=== PATIENT | male | born 1945 | race Caucasian/White ===

== ENCOUNTER 2016-03-01 12:27 | Emergency (ER) | payer MEDICARE, BC, OTHER ==
[~2016-03-01 12:27] MED LIST: /BACIOPOI TOP; /CIPR75TA; /DIVA50TA PO; /LINE60TA; /MUPI30CR EXT; ALBU2EL PO; AMLO10TA; ASCO10003 PO; ASCORBIC ACID 500 MG/ML TOP; ASPI1TAB PO; ASPI81TA3 PO; ASPI81TA83; AVEL1TAB PO; BISO10TA42 PO; BISO10TA6 PO; CARV3.12 PO; CENTTAB PO; COLC1TAB13 PO; DEPA1TAB3 PO; DEPA250C; DEPA500T2 PO; DESO0.254 TOP; DIGO25TA PO; DOXY100T; DOXY10CA PO; EUCECRE3 TOP; EUCELOT2 TOP; FERR325T; FISH1000; FLUOCINONIDE TOP; FOLI1TAB; GLUC1000; GLUC15002 PO; GLUC1CAP9 PO; HEPARIN; INSUDET SC; JANU100T PO; KEFL500C7 PO; KERALYT TOP; LEVE1INJ5 SC; LEVEINJ SC; LEVO125T3 PO; LEVO175T2 PO; LIDO5OI TOP; LIPI10TA; LISINOPRIL/HCTZ PO; LOPE2CA PO; LOPE2TAB3 PO; MAALSUS8 PO; MAGN64TASA PO; MAGNESIUM 64 MG PO; MAGNESIUM OXIDE PO; METO100T3 PO; METO50TA4 PO; MULTIVIT; MULTIVITAMIN; MULTTAB50 PO; MUPI2OI TOP; NEXI20CA PO; NICO21DI4; NORMAL SALINE; OMEP40CA2 PO; OXYCODONE; PERC5TAB8; PRAD150C PO; PRED10TA PO; PREDPOW10 PO; PRIL40CA PO; PROA1AER INH; RIFA300C3; SANTYL; SPIR25TA2 PO; SYNT150T PO; TORS100T12 PO; TORS20TA2 PO; TYLE325T5 PO; VALA1TAB PO; VANCOMYCIN; VIBR100C; VITA10006 PO; VITA200016 PO; VITA500T; VITA500T PO; VITAD1000T OR; VITAMIN D; VITMTA PO; WELC625T PO; ZANTTAB PO; ZINC220T2; ZYLO300T4 PO; [UNRECOGNIZED DRUG - CODE] PO; [UNRECOGNIZED DRUG - CODE] PO; [UNRECOGNIZED DRUG - CODE] PO; [UNRECOGNIZED DRUG - CODE] TOP; [UNRECOGNIZED DRUG - OTHER]; [UNRECOGNIZED DRUG - OTHER] PO; [UNRECOGNIZED DRUG - OTHER] TOP
--- NOTE | 2016-03-01 13:20 | REP ---
CT HEAD WITHOUT CONTRAST: HISTORY: Trauma. COMPARISON: 07/11/2013. Areas of decreased attenuation are present in the periventricular white matter. This represents small vessel ischemic disease. There is no intraparenchymal hemorrhage, mass or midline shift. The ventricular system and cortical sulci as well as subarachnoid space in the posterior fossa are dilated consistent with moderate volume loss. There is no extracerebral collection. There is no fracture. The visualized sinuses are clear. IMPRESSION: 1. Small vessel ischemic disease. 2. Moderate volume loss. Signed by Brayden Anderson MD 03/01/2016 01:37 P
--- NOTE | 2016-03-01 13:24 | REP ---
LUMBOSACRAL SPINE: Five views lumbosacral spine performed. There appears to be partial lumbarization of S1. There is no compression fracture or malalignment. There is mild diffuse spurring. There is mild disc space narrowing at L3-4. There is moderate disc space narrowing with subchondral sclerosis and vacuum at L5-S1. There is diffuse sclerosis at the posterior facet joints. The posterior elements are intact with slight curvature toward the left. IMPRESSION: Diffuse degenerative changes. No fracture or dislocation. Signed by Jason Andino MD 03/01/2016 03:22 P
--- NOTE | 2016-03-01 13:52 | EDDOCDS ---
Nurse's Notes [facility] Name: Leland Bassett Age: 70 yrs Sex: Male : 1945 Arrival Date: 03/01/2016 Time: 12:27 Bed I9 Private MD: Destin Tohmas G; Donegan, Caitlin Diagnosis: Unspecified injury of head;Low back pain Presentation: 03/01 12:33 Presenting complaint: EMS states: Slipped and fell in the shower, injured lower back. rs3 bruises in lower back. denies syncope/dizziness. not sure of loss of consciousness. denies head injury. on blood thinner. Adult Sepsis Screening: The patient does not have new or worsening altered mentation. Patient's respiratory rate is less than 22. Systolic blood pressure is greater than 100. Patient has a qSOFA score of 0- Negative Sepsis Screen. Suicide/Homicide risk assessment- the patient denies having any suicidal and/or homicidal ideations and does not present with any other emotional, behavioral or mental health complaints. 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 Transition of care: patient was not received from another setting of care. 12:33 Acuity: MAYTE Level 3 rs3 12:33 Method Of Arrival: Ambulance rs3 Triage Assessment: 12:59 General: Appears in no apparent distress. Pain: Location: lumbar area. Musculoskeletal: rs3 Reports Pain is 7 out of 10 on a pain scale. Historical: - Allergies: atorvastatin (Upset stomach); QUINOLONES (Upset stomach); valsartan (Upset stomach); - Home Meds: 1. mag64 twice a day 2. WelChol 625 mg oral tab once daily 3. Pradaxa 150 mg oral cap 2 times per day 4. ProAir HFA 90 mcg/actuation inhalation HFAA every 4 hours 5. bisoprolol fumarate 10 mg oral tab 1 tab once daily 6. divalproex 500 mg oral Tb24 1 tab once daily 7. divalproex 500 mg oral TbEC 2 tabs nightly 8. omeprazole 40 mg Oral cpDR 1 cap once daily 9. gabapentin 100 mg Oral tab three times a day 10. ascorbic acid 1,000 mg oral tab daily 11. aspirin 81 mg Oral TbEC 1 tab once daily 12. levothyroxine 175 mcg Oral tab 1 tab once daily 13. Glucosamine oral twice a day 14. levemir sliding scale : hold for under 150 -- use 80 Units above 150 15. allopurinol 300 mg Oral tab 1 tab once daily 16. colchicine 0.6 mg Oral tab 17. desoximetasone 0.25 % Topical oint prn 18. torsemide 100 mg oral tab 2 tabs once daily 19. Januvia 100 mg oral tab 1 tab once daily 20. Vitamin D Oral 2000 unit daily 21. spironolactone 25 mg Oral tab 1 tab once daily - PMHx: Diabetes - NIDDM: controlled; Heart Attack; Gout; Seizures; - PSHx: Cholecystectomy; Orchiectomy- Right; Knee surgery- Left; - Social history: Smoking status: Patient states former smoker of tobacco. No barriers to communication noted, The patient speaks fluent Yoruba. - Family history: Not pertinent. - : The pt / caregiver states he / she is on anticoagulants: Pradaxa (Dabigatran) Home medication list is obtained from pill bottles. - Exposure Risk Screening:: None identified. Screenin:05 Screening information is obtained from the patient. Fall risk: At risk due to age, rs3 prior history of falls. Assistance ADL's: requires no assistance with activities of daily living. Abuse/DV Screen: The patient / caregiver reports he/she is: not in a situation that causes fear, pain or injury. Nutritional screening: No deficits noted. Advance Directives: Currently, there is a health care proxy, amber duong (daughter). home support is adequate. Assessment: 13:10 General: Appears in no apparent distress, Behavior is appropriate for age, cooperative. rs3 Pain: Location: lumbar area. Cardiovascular: Capillary refill < 3 seconds Clubbing of nail beds is absent. Respiratory: Airway is patent Breath sounds are clear bilaterally. Derm: Bruising that is on lumbar area and right low back. Musculoskeletal: Circulation, motion, and sensation intact Capillary refill < 3 seconds Range of motion intact in all extremities. 13:46 Reassessment: Patient appears in no apparent distress at this time. Patient states rs3 feeling better. Patient states symptoms have improved. Vital Signs: 12:58 BP 125 / 65; Pulse 61; Resp 18; Temp 96.1(T); Pulse Ox 96% on R/A; Weight 123.38 kg; rs3 Height 6 ft. 2 in. (187.96 cm); 12:58 Body Mass Index 34.92 (123.38 kg, 187.96 cm) rs3 Vitals: 12:58 Log In Time N/A - ambulance arrival. rs3 ED Course: 12:28 Patient visited by Delfino Velásquez PCA. jrd 12:28 Patient moved to Waiting jrd 12:29 Tiny Gillespie is Private Physician. jrd 12:30 Destin Thomas is Private Physician. jrd 12:30 Patient moved to I jrd 12:33 Felician[facility] Saunders [facility] ke 12:33 Patient visited by Feliciano Saunders FNP. ke 12:34 Patient visited by Feliciano Saunders FNP. ke 12:35 Triage Initiated rs3 12:54 Patient visited by Feliciano Saunders FNP. ke 13:29 Patient visited by Feliciano Saunders FNP. ke 13:33 Tiny Gillespie is Referral Physician. ke 13:51 No IV's were initiated during this patient's visit. No procedures done that require rs3 assistance. 13:52 The patient / caregiver is instructed regarding the plan of care and ED course. rs3 Order Results: There are currently no results for this order. Outcome: 13:33 Discharge ordered by Provider. ke 13:50 Discharge Assessment: patient administered narcotics - no. The following High Risk rs3 Discharge criteria are identified: None. Discharged to home with family. Condition: stable. Discharge instructions given to family, Instructed on discharge instructions, follow up and referral plans. medication usage, Demonstrated understanding of instructions, medications, Pt was receptive of discharge instructions/ teaching. CT Study completed. Property :Personal belongings accompany Pt. 13:52 Patient left the ED. rs3 Signatures: Feliciano Saunders FNP FNP ke Soosairaj, RosemaryRN RN rs3 Delfino Velásquez PCA PCA jrd MTDD
--- NOTE | 2016-03-01 13:52 | EDDOCDS ---
Physician Documentation [facility] Name: Leland Bassett Age: 70 yrs Sex: Male : 1945 Arrival Date: 03/01/2016 Time: 12:27 Bed I9 Private MD: Destin Thomas G; Donegan, Caitlin Disposition: 03/01/16 13:33 Discharged to Home/Self Care. Impression: Unspecified injury of head, Low back pain. - Condition is Stable. - Discharge Instructions: Abrasion, Contusion, Musculoskeletal Pain. - Medication Reconciliation, Local Pharmacy Hours form. - Follow up: Tiny Gillespie; When: As needed; Reason: Continuance of care. - Problem is new. - Symptoms are unchanged. Historical: - Allergies: atorvastatin (Upset stomach); QUINOLONES (Upset stomach); valsartan (Upset stomach); - Home Meds: 1. mag64 twice a day 2. WelChol 625 mg oral tab once daily 3. Pradaxa 150 mg oral cap 2 times per day 4. ProAir HFA 90 mcg/actuation inhalation HFAA every 4 hours 5. bisoprolol fumarate 10 mg oral tab 1 tab once daily 6. divalproex 500 mg oral Tb24 1 tab once daily 7. divalproex 500 mg oral TbEC 2 tabs nightly 8. omeprazole 40 mg Oral cpDR 1 cap once daily 9. gabapentin 100 mg Oral tab three times a day 10. ascorbic acid 1,000 mg oral tab daily 11. aspirin 81 mg Oral TbEC 1 tab once daily 12. levothyroxine 175 mcg Oral tab 1 tab once daily 13. Glucosamine oral twice a day 14. levemir sliding scale : hold for under 150 -- use 80 Units above 150 15. allopurinol 300 mg Oral tab 1 tab once daily 16. colchicine 0.6 mg Oral tab 17. desoximetasone 0.25 % Topical oint prn 18. torsemide 100 mg oral tab 2 tabs once daily 19. Januvia 100 mg oral tab 1 tab once daily 20. Vitamin D Oral 2000 unit daily 21. spironolactone 25 mg Oral tab 1 tab once daily - PMHx: Diabetes - NIDDM: controlled; Heart Attack; Gout; Seizures; - PSHx: Cholecystectomy; Orchiectomy- Right; Knee surgery- Left; - Social history: Smoking status: Patient states former smoker of tobacco. No barriers to communication noted, The patient speaks fluent Panamanian. - Family history: Not pertinent. - : The pt / caregiver states he / she is on anticoagulants: Pradaxa (Dabigatran) Home medication list is obtained from pill bottles. - Exposure Risk Screening:: None identified. Vital Signs: 03/01 12:58 BP 125 / 65; Pulse 61; Resp 18; Temp 96.1(T); Pulse Ox 96% on R/A; Weight 123.38 kg / rs3 272.01 lbs; Height 6 ft. 2 in. (187.96 cm); 12:58 Body Mass Index 34.92 (123.38 kg, 187.96 cm) rs3 MDM: 12:40 CT Head Without Contrast Ordered. EDMS 12:41 Spine. Lumbosacral, Complete Ordered. EDMS Signatures: Dispatcher [employer] EDMS Feliciano Saunders, Mamta CrespoRN RN rs3 MTDD
--- NOTE | 2016-03-03 14:53 | EDDOCDS ---
Nurse's Notes [facility] Name: Leland Bassett Age: 70 yrs Sex: Male : 1945 Arrival Date: 03/01/2016 Time: 12:27 Bed I9 Private MD: Destin Thomas G; Donegan, Caitlin Diagnosis: Unspecified injury of head;Low back pain Presentation: 03/01 12:33 Presenting complaint: EMS states: Slipped and fell in the shower, injured lower back. rs3 bruises in lower back. denies syncope/dizziness. not sure of loss of consciousness. denies head injury. on blood thinner. Adult Sepsis Screening: The patient does not have new or worsening altered mentation. Patient's respiratory rate is less than 22. Systolic blood pressure is greater than 100. Patient has a qSOFA score of 0- Negative Sepsis Screen. Suicide/Homicide risk assessment- the patient denies having any suicidal and/or homicidal ideations and does not present with any other emotional, behavioral or mental health complaints. Status: Patient is not a immigration services officer or dependent. Transition of care: patient was not received from another setting of care. 12:33 Acuity: MAYTE Level 3 rs3 12:33 Method Of Arrival: Ambulance rs3 Triage Assessment: 12:59 General: Appears in no apparent distress. Pain: Location: lumbar area. Musculoskeletal: rs3 Reports Pain is 7 out of 10 on a pain scale. Historical: - Allergies: atorvastatin (Upset stomach); QUINOLONES (Upset stomach); valsartan (Upset stomach); - Home Meds: 1. mag64 twice a day 2. WelChol 625 mg oral tab once daily 3. Pradaxa 150 mg oral cap 2 times per day 4. ProAir HFA 90 mcg/actuation inhalation HFAA every 4 hours 5. bisoprolol fumarate 10 mg oral tab 1 tab once daily 6. divalproex 500 mg oral Tb24 1 tab once daily 7. divalproex 500 mg oral TbEC 2 tabs nightly 8. omeprazole 40 mg Oral cpDR 1 cap once daily 9. gabapentin 100 mg Oral tab three times a day 10. ascorbic acid 1,000 mg oral tab daily 11. aspirin 81 mg Oral TbEC 1 tab once daily 12. levothyroxine 175 mcg Oral tab 1 tab once daily 13. Glucosamine oral twice a day 14. levemir sliding scale : hold for under 150 -- use 80 Units above 150 15. allopurinol 300 mg Oral tab 1 tab once daily 16. colchicine 0.6 mg Oral tab 17. desoximetasone 0.25 % Topical oint prn 18. torsemide 100 mg oral tab 2 tabs once daily 19. Januvia 100 mg oral tab 1 tab once daily 20. Vitamin D Oral 2000 unit daily 21. spironolactone 25 mg Oral tab 1 tab once daily - PMHx: Diabetes - NIDDM: controlled; Heart Attack; Gout; Seizures; - PSHx: Cholecystectomy; Orchiectomy- Right; Knee surgery- Left; - Social history: Smoking status: Patient states former smoker of tobacco. No barriers to communication noted, The patient speaks fluent Persian. - Family history: Not pertinent. - : The pt / caregiver states he / she is on anticoagulants: Pradaxa (Dabigatran) Home medication list is obtained from pill bottles. - Exposure Risk Screening:: None identified. Screenin:05 Screening information is obtained from the patient. Fall risk: At risk due to age, rs3 prior history of falls. Assistance ADL's: requires no assistance with activities of daily living. Abuse/DV Screen: The patient / caregiver reports he/she is: not in a situation that causes fear, pain or injury. Nutritional screening: No deficits noted. Advance Directives: Currently, there is a health care proxy, amber duong (daughter). home support is adequate. Assessment: 13:10 General: Appears in no apparent distress, Behavior is appropriate for age, cooperative. rs3 Pain: Location: lumbar area. Cardiovascular: Capillary refill < 3 seconds Clubbing of nail beds is absent. Respiratory: Airway is patent Breath sounds are clear bilaterally. Derm: Bruising that is on lumbar area and right low back. Musculoskeletal: Circulation, motion, and sensation intact Capillary refill < 3 seconds Range of motion intact in all extremities. 13:46 Reassessment: Patient appears in no apparent distress at this time. Patient states rs3 feeling better. Patient states symptoms have improved. Vital Signs: 12:58 BP 125 / 65; Pulse 61; Resp 18; Temp 96.1(T); Pulse Ox 96% on R/A; Weight 123.38 kg; rs3 Height 6 ft. 2 in. (187.96 cm); 12:58 Body Mass Index 34.92 (123.38 kg, 187.96 cm) rs3 Vitals: 12:58 Log In Time N/A - ambulance arrival. rs3 ED Course: 12:28 Patient visited by Delfino Velásquez PCA. jrd 12:28 Patient moved to Waiting jrd 12:29 Tiny Gillespie is Private Physician. jrd 12:30 Destin Thomas is Private Physician. jrd 12:30 Patient moved to I jrd 12:33 [facility]unders F[facility] ke 12:33 Patient visited by Feliciano Saudners FNP. ke 12:34 Patient visited by Feliciano Saunders FNP. ke 12:35 Triage Initiated rs3 12:54 Patient visited by Feliciano Saunders FNP. ke 13:29 Patient visited by Feliciano Saunders FNP. ke 13:33 Tiny Gillespie is Referral Physician. ke 13:51 No IV's were initiated during this patient's visit. No procedures done that require rs3 assistance. 13:52 The patient / caregiver is instructed regarding the plan of care and ED course. rs3 13:58 [place] [place] Agreement was scanned into [employer] and attached to record. jp5 14:03 CT Head Without Contrast Returned. EDMS 14:03 Spine. Lumbosacral, Complete Returned. EDMS 18:59 PCR was scanned into [employer] and attached to record. jrd 03/02 07:18 T-Sheet-- Draft Copy was scanned into [employer] and attached to record. gb Order Results: Radiology Order: CT Head Without Contrast Test: CT Head Without Contrast REASON FOR EXAMINATION: Trauma; CT HEAD WITHOUT CONTRAST:; ; HISTORY: Trauma.; ; COMPARISON: 07/11/2013.; ; Areas of decreased attenuation are present in the periventricular white matter.; This represents small vessel ischemic disease. There is no intraparenchymal; hemorrhage, mass or midline shift. The ventricular system and cortical sulci as; well as subarachnoid space in the posterior fossa are dilated consistent with; moderate volume loss. There is no extracerebral collection. There is no; fracture. The visualized sinuses are clear.; ; IMPRESSION:; ; 1. Small vessel ischemic disease.; ; 2. Moderate volume loss.; ; ; Signed by; Brayden Anderson MD 03/01/2016 01:37 P; Radiology Order: Spine. Lumbosacral, Complete Test: Spine. Lumbosacral, Complete REASON FOR EXAMINATION: Trauma; LUMBOSACRAL SPINE:; ; Five views lumbosacral spine performed. There appears to be partial; lumbarization of S1. There is no compression fracture or malalignment. There is; mild diffuse spurring. There is mild disc space narrowing at L3-4. There is; moderate disc space narrowing with subchondral sclerosis and vacuum at L5-S1.; There is diffuse sclerosis at the posterior facet joints. The posterior elements; are intact with slight curvature toward the left.; ; IMPRESSION:; ; Diffuse degenerative changes. No fracture or dislocation.; ; ; Signed by; Jason Andino MD 03/01/2016 03:22 P; Outcome: 03/01 13:33 Discharge ordered by Provider. armin 13:50 Discharge Assessment: patient administered narcotics - no. The following High Risk rs3 Discharge criteria are identified: None. Discharged to home with family. Condition: stable. Discharge instructions given to family, Instructed on discharge instructions, follow up and referral plans. medication usage, Demonstrated understanding of instructions, medications, Pt was receptive of discharge instructions/ teaching. CT Study completed. Property :Personal belongings accompany Pt. 13:52 Patient left the ED. rs3 Signatures: Dispatcher [employer] EDMS Tara Ibarra, Feliciano Thompson, CASINO GAMING WORKER CASINO GAMING WORKERMamta Triana RN RN rs3 Delfino Velásquez PCA SOUND TESTER Edgard Gtz jp5 Chart Complete MTDD
--- NOTE | 2016-03-03 14:53 | EDDOCDS ---
Physician Documentation [facility] Name: Leland Bassett Age: 70 yrs Sex: Male : 1945 Arrival Date: 03/01/2016 Time: 12:27 Bed I9 Private MD: Destin Thomas G; Donegan, Caitlin Disposition: 03/01/16 13:33 Discharged to Home/Self Care. Impression: Unspecified injury of head, Low back pain. - Condition is Stable. - Discharge Instructions: Abrasion, Contusion, Musculoskeletal Pain. - Medication Reconciliation, Local Pharmacy Hours form. - Follow up: Tiny Gillespie; When: As needed; Reason: Continuance of care. - Problem is new. - Symptoms are unchanged. Historical: - Allergies: atorvastatin (Upset stomach); QUINOLONES (Upset stomach); valsartan (Upset stomach); - Home Meds: 1. mag64 twice a day 2. WelChol 625 mg oral tab once daily 3. Pradaxa 150 mg oral cap 2 times per day 4. ProAir HFA 90 mcg/actuation inhalation HFAA every 4 hours 5. bisoprolol fumarate 10 mg oral tab 1 tab once daily 6. divalproex 500 mg oral Tb24 1 tab once daily 7. divalproex 500 mg oral TbEC 2 tabs nightly 8. omeprazole 40 mg Oral cpDR 1 cap once daily 9. gabapentin 100 mg Oral tab three times a day 10. ascorbic acid 1,000 mg oral tab daily 11. aspirin 81 mg Oral TbEC 1 tab once daily 12. levothyroxine 175 mcg Oral tab 1 tab once daily 13. Glucosamine oral twice a day 14. levemir sliding scale : hold for under 150 -- use 80 Units above 150 15. allopurinol 300 mg Oral tab 1 tab once daily 16. colchicine 0.6 mg Oral tab 17. desoximetasone 0.25 % Topical oint prn 18. torsemide 100 mg oral tab 2 tabs once daily 19. Januvia 100 mg oral tab 1 tab once daily 20. Vitamin D Oral 2000 unit daily 21. spironolactone 25 mg Oral tab 1 tab once daily - PMHx: Diabetes - NIDDM: controlled; Heart Attack; Gout; Seizures; - PSHx: Cholecystectomy; Orchiectomy- Right; Knee surgery- Left; - Social history: Smoking status: Patient states former smoker of tobacco. No barriers to communication noted, The patient speaks fluent Namibian. - Family history: Not pertinent. - : The pt / caregiver states he / she is on anticoagulants: Pradaxa (Dabigatran) Home medication list is obtained from pill bottles. - Exposure Risk Screening:: None identified. Vital Signs: 03/01 12:58 BP 125 / 65; Pulse 61; Resp 18; Temp 96.1(T); Pulse Ox 96% on R/A; Weight 123.38 kg / rs3 272.01 lbs; Height 6 ft. 2 in. (187.96 cm); 12:58 Body Mass Index 34.92 (123.38 kg, 187.96 cm) rs3 MDM: 12:40 CT Head Without Contrast Ordered. EDMS 12:41 Spine. Lumbosacral, Complete Ordered. EDMS 13:58 [facility] Payment Agreement was scanned into [employer] and attached to record. jp5 13:58 Financial registration complete. jp5 18:59 PCR was scanned into [employer] and attached to record. jrmaria 03/02 07:18 T-Sheet-- Draft Copy was scanned into [employer] and attached to record. gb Signatures: Dispatcher [employer] EDMS Tara Ibarra, Reg Reg gb Feliciano Saunders, BALANCE WHEEL SCREW HOLE TAPPER BALANCE WHEEL SCREW HOLE TAPPER Mamta Johnston,RN RN rs3 Delfino Velásquez, BAY STOCKER BAY STOCKER jrEdgard Marie jp5 The chart was reviewed and I authenticate all verbal orders and agree with the evaluation and treatment provided.Attachments: 03/01 13:58 [facility] Payment Agreement jp5 03/02 07:18 T-Sheet-- Draft Copy gb Chart Complete MTDD
--- NOTE | 2016-03-03 14:53 | EDDOCDS ---
Physician Documentation [facility] Name: Leland Bassett Age: 70 yrs Sex: Male : 1945 Arrival Date: 03/01/2016 Time: 12:27 Bed I9 Private MD: Destin Thomas G; Donegan, Caitlin Disposition: 03/01/16 13:33 Discharged to Home/Self Care. Impression: Unspecified injury of head, Low back pain. - Condition is Stable. - Discharge Instructions: Abrasion, Contusion, Musculoskeletal Pain. - Medication Reconciliation, Local Pharmacy Hours form. - Follow up: Tiny Gillespie; When: As needed; Reason: Continuance of care. - Problem is new. - Symptoms are unchanged. Historical: - Allergies: atorvastatin (Upset stomach); QUINOLONES (Upset stomach); valsartan (Upset stomach); - Home Meds: 1. mag64 twice a day 2. WelChol 625 mg oral tab once daily 3. Pradaxa 150 mg oral cap 2 times per day 4. ProAir HFA 90 mcg/actuation inhalation HFAA every 4 hours 5. bisoprolol fumarate 10 mg oral tab 1 tab once daily 6. divalproex 500 mg oral Tb24 1 tab once daily 7. divalproex 500 mg oral TbEC 2 tabs nightly 8. omeprazole 40 mg Oral cpDR 1 cap once daily 9. gabapentin 100 mg Oral tab three times a day 10. ascorbic acid 1,000 mg oral tab daily 11. aspirin 81 mg Oral TbEC 1 tab once daily 12. levothyroxine 175 mcg Oral tab 1 tab once daily 13. Glucosamine oral twice a day 14. levemir sliding scale : hold for under 150 -- use 80 Units above 150 15. allopurinol 300 mg Oral tab 1 tab once daily 16. colchicine 0.6 mg Oral tab 17. desoximetasone 0.25 % Topical oint prn 18. torsemide 100 mg oral tab 2 tabs once daily 19. Januvia 100 mg oral tab 1 tab once daily 20. Vitamin D Oral 2000 unit daily 21. spironolactone 25 mg Oral tab 1 tab once daily - PMHx: Diabetes - NIDDM: controlled; Heart Attack; Gout; Seizures; - PSHx: Cholecystectomy; Orchiectomy- Right; Knee surgery- Left; - Social history: Smoking status: Patient states former smoker of tobacco. No barriers to communication noted, The patient speaks fluent [place]ine[place]. - Family history: Not pertinent. - : The pt / caregiver states he / she is on anticoagulants: Pradaxa (Dabigatran) Home medication list is obtained from pill bottles. - Exposure Risk Screening:: None identified. Vital Signs: 03/01 12:58 BP 125 / 65; Pulse 61; Resp 18; Temp 96.1(T); Pulse Ox 96% on R/A; Weight 123.38 kg / rs3 272.01 lbs; Height 6 ft. 2 in. (187.96 cm); 12:58 Body Mass Index 34.92 (123.38 kg, 187.96 cm) rs3 MDM: 12:40 CT Head Without Contrast Ordered. EDMS 12:41 Spine. Lumbosacral, Complete Ordered. EDMS 13:58 [facility] Payment Agreement was scanned into [employer] and attached to record. jp5 13:58 Financial registration complete. jp5 18:59 PCR was scanned into [employer] and attached to record. jrmaria 03/02 07:18 T-Sheet-- Draft Copy was scanned into [employer] and attached to record. gb Signatures: Dispatcher [employer] EDMS Tara Ibarra, Reg Reg gb Feliciano Saunders, TUNE UP MECHANIC TUNE UP MECHANIC Mamta Johnston,RN RN rs3 Delfino Velásquez, MANAGER RENEWABLE ENERGY MANAGER RENEWABLE ENERGY jrEdgard Marie jp5 The chart was reviewed and I authenticate all verbal orders and agree with the evaluation and treatment provided.Attachments: 03/01 13:58 [facility] Payment Agreement jp5 03/02 07:18 T-Sheet-- Draft Copy gb Chart Complete MTDD
== END 2016-03-01 13:52 | disposition home or self-care (01) ==
LOC: M ED 12:27
DX: S30.0XXA Contusion of lower back and pelvis, initial encounter (principal); S09.90XA Unspecified injury of head, initial encounter; W01.0XXA Fall on same level from slipping, tripping and stumbling without subsequent striking against object, initial encounter; Y92.012 Bathroom of single-family (private) house as the place of occurrence of the external cause; Y93.E1 Activity, personal bathing and showering; Y99.8 Other external cause status; E11.9 Type 2 diabetes mellitus without complications; R56.9 Unspecified convulsions; M10.9 Gout, unspecified; I25.2 Old myocardial infarction; Z90.49 Acquired absence of other specified parts of digestive tract; Z87.891 Personal history of nicotine dependence; Z79.01 Long term (current) use of anticoagulants; Z79.82 Long term (current) use of aspirin; Z79.51 Long term (current) use of inhaled steroids; Z88.8 Allergy status to other drugs, medicaments and biological substances

== ENCOUNTER → 2016-06-11 | Outpatient (CLI) | payer MEDICARE, BC, OTHER ==
[~2016-06-11] MED LIST changes: +TORS100T PO; -TORS100T12 PO
[2016-06-11 18:52] LABS: ALBUMIN 3.6 GM/DL (3.2-5.2); ALBUMIN/GLOBULIN RATIO 1.38 (1.00-1.93); BILIRUBIN,TOTAL 0.9 MG/DL (0.2-1.0); CALCIUM LEVEL 8.4 MG/DL (8.8-10.2); CREATININE FOR GFR 1.69 MG/DL (0.70-1.30); GLOMERULAR FILTRATION RATE 42.9 (>42); POTASSIUM SERUM 4.3 MEQ/L (3.5-5.1); TOTAL PROTEIN 6.2 GM/DL (6.4-8.2)
[2016-06-11 18:58] LABS: BASO % 0.4 % (0.0-1.0); EOS # 0.1 K/mm3 (0.0-0.50); EOS % 1.7 % (0.0-3.0); LARGE UNSTAINED CELL # 0.1 K/mm3 (0.0-0.4); LARGE UNSTAINED CELL % 3.1 % (0.0-4.0); LYMPH % 19.8 % (24.0-44.0); MEAN CORPUSCULAR HGB CONC 30.3 g/dl (32.0-36.5); MEAN CORPUSCULAR VOLUME 95.8 fl (80.0-96.0); MONO # 0.7 K/mm3 (0.0-0.8); MONO % 14.5 % (0.0-5.0); NEUTROPHILS # 2.8 K/mm3 (1.8-7.7); NEUTROPHILS % 60.4 % (36.0-66.0); PLATELET COUNT, AUTOMATED 159 k/mm3 (150-450); RED CELL DISTRIBUTION WIDTH 14.6 % (11.5-14.5); WHITE BLOOD COUNT 4.6 K/mm3 (4.0-10.0)
== END ==
LOC: M SMT 12:57
PROVIDERS: ATTEND Physician Assistant Medical
DX: E78.1 Pure hyperglyceridemia (principal); E11.9 Type 2 diabetes mellitus without complications; R53.83 Other fatigue
CPT/HCPCS: 36415; 80053; 80061; 83036; 84443; 85025; G0463

== ENCOUNTER → 2016-06-13 | Outpatient (CLI) | payer MEDICARE, BC, OTHER ==
--- NOTE | 2016-06-13 13:50 | REP ---
Scrotal ultrasound: There are no comparisons in this patient with a right orchiectomy that was performed in the . There is no identifiable right testis, compatible with this clinical history. The left testis is normal size measuring 3.90 1.9 x 2.4 cm. There is no left testicular mass or cyst. There is a small calcification in the lower pole. Left epididymal head is normal size and otherwise are. There is vascular flow in the left testis with the Doppler resistive index of the intraparenchymal arteries measuring 0.65. There is a left hydrocele. There is a left varicocele. Half Impression: Right orchiectomy. The left testis and epididymal head are unremarkable. There is a left hydrocele and a left varicocele. Signed by Jason Ceron MD 06/13/2016 01:41 P
== END ==
LOC: M SMT 11:44
PROVIDERS: ATTEND Urology
DX: N50.89 Other specified disorders of the male genital organs (principal); N43.3 Hydrocele, unspecified; I86.1 Scrotal varices

== ENCOUNTER 2016-07-12 11:39 | Inpatient (IN) | payer MEDICARE, BC, OTHER ==
[~2016-07-12] VITALS: Ht 188 cm; Wt 112.6 kg
[2016-07-12] MEDS ORDERED: OXYC1TAB23 PO (12:16)
[2016-07-12] MEDS ORDERED: GABA-279 PO (12:16)
[2016-07-12] MEDS ORDERED: DIPH2.5T14 PO (12:16)
[2016-07-12] MEDS ORDERED: MAGN400T5 PO (12:16)
--- NOTE | 2016-07-12 14:39 | REP ---
AP pelvis: Single view. History: Hip pain. Findings: AP view of the pelvis demonstrates an intact bony pelvic ring. There is mild osteoarthritic spurring at the inferomedial aspect of the left hip. Vascular calcification is noted. There are air-filled small bowel loops in the central abdomen nonspecific. Impression: No acute bony abnormality. Vascular calcification. Mild left hip osteoarthritic spurring. Signed by Giovani Marrero MD 07/12/2016 03:00 P
--- NOTE | 2016-07-12 14:40 | REP ---
Left hip: Two views. History: Left hip pain. Findings: AP and frog-leg views of the left hip demonstrate mild inferior femoral acetabular spurring. Vascular calcification is noted. There is some diffuse osteopenia. No acute bony abnormality. Impression: Mild spurring. Vascular calcification. No acute bony abnormality. Signed by Giovani Marrero MD 07/12/2016 03:00 P
--- NOTE | 2016-07-12 14:41 | REP ---
Left knee series: Two views. History: Left knee pain. Comparison left knee radiographs are from October 22, 2012. Findings: There is moderate diffuse osteopenia. There are old pin tracks in the proximal tibia with old healed periosteal reaction along the lateral tibial metaphysis unchanged from the comparison study. There is mild medial and patellofemoral compartment spurring. Patellofemoral narrowing is seen. No joint effusion is seen. Vascular calcification is noted. No fracture or erosive change is seen. Impression: Old pin tracts and healed periosteal reaction proximal tibia. Diffuse osteoporosis. Mild osteoarthritis. No acute bony abnormality. Signed by Giovani Marrero MD 07/12/2016 03:00 P
[2016-07-12 17:45] LABS: MEAN CORPUSCULAR HEMOGLOBIN 29.6 pg (27.0-33.0); MEAN CORPUSCULAR HGB CONC 31.4 g/dl (32.0-36.5); MEAN CORPUSCULAR VOLUME 94.5 fl (80.0-96.0); RED CELL DISTRIBUTION WIDTH 15.2 % (11.5-14.5); WHITE BLOOD COUNT 8.1 K/mm3 (4.0-10.0)
[2016-07-12] MEDS ORDERED: ALBU83IN INH (17:50)
[2016-07-12 18:08] LABS: ALBUMIN 3.2 GM/DL (3.2-5.2); ALBUMIN/GLOBULIN RATIO 1.19 (1.00-1.93); ALKALINE PHOSPHATASE 161 U/L (45-117); ALT/SGPT 11 U/L (12-78); ANION GAP 7 MEQ/L (8-16); AST/SGOT 17 U/L (15-37); BILIRUBIN,TOTAL 1.3 MG/DL (0.2-1.0); BLOOD UREA NITROGEN 24 MG/DL (7-18); CALCIUM LEVEL 8.6 MG/DL (8.8-10.2); CARBON DIOXIDE LEVEL 24 MEQ/L (21-32); CHLORIDE LEVEL 111 MEQ/L (98-107); CREATININE FOR GFR 1.16 MG/DL (0.70-1.30); GLOMERULAR FILTRATION RATE > 60.0 (>42); GLUCOSE, FASTING 149 MG/DL (83-110); POTASSIUM SERUM 4.7 MEQ/L (3.5-5.1); SODIUM LEVEL 142 MEQ/L (136-145); TOTAL PROTEIN 5.9 GM/DL (6.4-8.2)
[2016-07-12] MEDS ORDERED: DEXTROSE 50% 50 ML SYRINGE IV PRN (19:00)
[2016-07-12] MEDS ORDERED: GLUCAGON FOR INJ 1 MG VIAL (J1610) SC PRN (19:00)
[2016-07-12] MEDS ORDERED: GLUCOSE 4 GM CHEW TABLET PO PRN (19:00)
[2016-07-12] MEDS ORDERED: ONDANSETRON 4MG/2ML VIAL (J2405) IV PRN (19:00)
[2016-07-12] MEDS ORDERED: predniSONE 20 MG TAB PO ONE (19:00)
[2016-07-12] MEDS ORDERED: PERCOCET 5MG/325MG TAB PO ONE (19:45)
[2016-07-12] MEDS ORDERED: PERCOCET 5MG/325MG TAB PO PRN (19:45)
--- NOTE | 2016-07-12 19:49 | REP ---
Right elbow two views: AP and lateral views are performed. Patient declined the oblique views. There are no comparisons. There is focal soft tissue swelling posterior to the olecranon, compatible with olecranon bursitis. Additionally, there is diffuse circumferential soft tissue edema, nonspecific. This could be in relation to the olecranon bursitis, diffuse soft tissue inflammation, or cellulitis. There are no lytic, blastic or destructive skeletal changes. There is no joint effusion. There are no calcifications or foreign bodies. Signed by Jason Ceron MD 07/12/2016 07:41 P
--- NOTE | 2016-07-12 20:20 | REPUSA ---
HISTORY: Abdominal wall bruising. TECHNIQUE: Multiple axial CT images were obtained through the abdomen and pelvis without administrat ion of oral or IV contrast material. Study is somewhat motion degraded. FINDINGS: The liver is enlarged measuring 21 cm. There is no intra or extrahepatic biliary ductal dilatation. The spleen is enlarged measuring 18 cm. The gallbladder is not identified. Please correlate with s urgical status. The pancreas is of normal contour and attenuation characteristics. There is no evid ence of adrenal mass. The kidneys are normal in size, shape and configuration. No renal or ureteral calculi are identified . There is no hydroureter or hydronephrosis. Note is made of multiple large exophytic cysts in the lower pole of the left kidney. The largest measures 6 cm. There is no evidence for appendicitis. There is no bowel wall thickening. No evidence for small or large bowel obstruction. There is no evidence of abdominal ascites or lymphadenopathy. There is ant erior abdominal wall subcutaneous thickening/swelling which may represent cellulitis or related to tr auma/bruising. There is no evidence of intrinsic or extrinsic bladder mass. There is no pelvic ascites or lymphaden opathy. Prostate gland is mildly enlarged. Small fat containing left inguinal hernia is seen. Images of the lung bases show no evidence of pleural or parenchymal mass. There are no pleural effus ions. Heart is enlarged. Pacemaker leads are noted. The bony structures are free of lytic or blastic lesions. IMPRESSION: 1. No evidence of acute abdominal or pelvic pathology. 2. Somewhat limited motion degraded study. 3. Hepatosplenomegaly. 4. Several left renal cysts. 5. Anterior abdominal wall subcutaneous thickening/swelling which may represent cellulitis or relat ed to trauma/bruising. Thank you for your kind referral of this patient. We appreciate the opportunity to participate in th is patient's care.
[2016-07-12 21:35] VITALS: BP 108/67
[2016-07-12 21:45] VITALS: BP 108/67
[2016-07-12] MEDS: HumaLOG INSULIN (NovoLOG) PER UNIT SC SCH (21:56)
--- NOTE | 2016-07-12 22:13 | HPE ---
DATE OF ADMISSION: 07/12/2016 PRIMARY CARE PROVIDER: Bipin Thomas at [facility]. BARREL BUNG REMOVER AND DUMPER: Dr. Dawkins ALLIED HEALTH INSTRUCTOR: Dr. Bowser CHIEF COMPLAINT: This morning, the patient was sitting on the toilet and felt a pop, followed by cramping of the left hip, and then could not get up and spent about 2 hours on the toilet, then pressed his Life Alert button and was brought to the emergency room. PAST MEDICAL HISTORY: Chronic obstructive pulmonary disease (COPD). Obstructive sleep apnea. Diastolic congestive heart failure. Atrial fibrillation, on Pradaxa. 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 Hypertension. Diabetes. Seizure disorder. Hypothyroid. Gout. Obesity. Gastroesophageal reflux disease. 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 Chronic venous stasis with stasis dermatitis. Tremors. Chronic kidney disease, stage III. Pulmonary hypertension. Hydrocele and varicocele on the left. HISTORY OF THE PRESENT ILLNESS: This is a 70-year-old male who is legally blind from retinal detachment in one eye and macular degeneration in the other, lives alone at home. He was in his usual state of health, early this morning went to the bathroom at around 1:00 a.m., was sitting on the commode when he heard a pop at the base of his spine, mostly on the left hip side. After that, he could not get up. He sat on the commode for 2 hours trying to get up and finally pressed Life Alert button and was brought to the emergency room. Here, he complained of bilateral leg swelling, which has been bothering him for 2 weeks. He also complained of shakiness of his limbs and also complained of difficulty in talking, feels that his speech has slowed down. His lab work in the emergency department (ED) was within acceptable limits. He was evaluated by physical therapy. Down in the ED, however, he could not be got out of bed and could not be mobilized. He also complained of severe pain in his right elbow, does not remember how long the elbow has been bothering him. He is being admitted to the hospitalist service for severe generalized deconditioning from multiple medical comorbidities, possible Parkinson's disease and inability to ambulate. PAST SURGICAL HISTORY: Pacemaker placement. Bilateral knee surgery. Left leg fracture with hardware. Testicular cancer removal. Cholecystectomy. ALLERGIES: ATORVASTATIN, QUINOLONES and VALSARTAN. SOCIAL HISTORY: Former smoker, quit smoking several years ago. Does not abuse alcohol or recreational drugs. HOME MEDICATIONS: - albuterol two puff inhalation every 4 hours as needed - albuterol sulfate nebulizer every 4 hours - allopurinol 300 mg at bedtime - ascorbic acid 1000 mg at bedtime - aspirin 81 mg at bedtime - bisoprolol 10 mg at bedtime - colchicine 0.6 mg by mouth twice a day - Welchol 3750 mg at bedtime - Pradaxa 150 mg by mouth twice a day - diphenoxylate/atropine one tablet as needed for diarrhea - Depakote ER 1000 mg at bedtime and 500 mg in the morning - gabapentin 100 mg by mouth three times a day - glucosamine one capsule by mouth twice a day - Levemir insulin 82 units twice a day - Synthroid 175 mcg daily - magnesium oxide 400 mg by mouth twice a day - multivitamin one tablet daily - omeprazole 40 mg at bedtime - oxycodone/acetaminophen one tablet by mouth as needed for pain - Januvia 100 mg at bedtime - spironolactone 25 mg by mouth daily - torsemide 100 mg by mouth twice a day - vitamin D 2000 units by mouth daily REVIEW OF SYSTEMS: The patient denies any fever or chills. Denies any chest pain or palpitations. Denies any shortness of breath. He does complain of tremors in both the right hand as well as the right leg. Complains of increased leg swelling over the past 2 weeks. Complains of severe pain in the right elbow. Denies any abdominal pain, nausea or vomiting. He does have diarrhea every day. Denies any cough or phlegm. PHYSICAL EXAMINATION: VITAL SIGNS: Temperature 98.3, pulse 60, blood pressure 116/73, pulse oximetry 92% in room air, respiratory rate 18. GENERAL: Patient awake, alert, oriented times three. However, his speech is very slow; it is clear but he takes time to answer a question. It looks like he has difficulty in enunciation of speech but once he starts talking, he speaks fine. HEENT: Normocephalic, atraumatic. Moist mucous membranes. Anicteric eyes. CHEST: Clear to auscultation. CARDIOVASCULAR: S1, S2, regular. No rub, murmur or gallop. ABDOMEN: Soft. Bowel sounds normal. There is bruising present on both sides of the abdominal wall just below the umbilicus. There is some parietal edema on the left side of the abdominal wall. EXTREMITIES: Bipedal 2+ edema with chronic venous stasis changes. MUSCULOSKELETAL: The right elbow is red, inflamed and very tender to touch. No movement is possible of the right elbow. NEUROLOGY: There is pill-rolling and static tremor in noted in both the upper extremities. LABORATORY DATA: WBC 8.1, hemoglobin 13.7, platelets 135. Sodium 142, potassium 4.7, chloride 111, bicarbonate 24, BUN 24, creatinine 1.16, glucose 149, calcium 8.6, total bilirubin 1.3, AST 17, ALT 11, alkaline phosphatase 161, total protein 5.9, albumin 3.2. RADIOLOGY: Pelvic x-ray shows vascular calcification. Mild left hip osteoarthritic spurring. No other bony abnormality. Knee x-ray shows old pin tracts and healed periosteal reaction in proximal tibia. Diffuse osteoporosis. Mild osteoarthritis. Hip x-ray shows mild spurring, vascular calcification and no acute bony abnormality on the left. ASSESSMENT AND PLAN: This is a 70-year-old male with multiple medical comorbidities, admitted for back pain, left hip pain, inability to ambulate. Plan: For back pain, left hip pain and inability to ambulate, will consult physical therapy (PT). Will continue with pain medications with Percocet. Give Ketorolac as needed and Lidoderm patch if required. The patient will also be started on prednisone for a possible gout attack in the right elbow, which would also help with the pain. Right elbow pain and swelling. Will get elbow x-ray; however, the patient denies any trauma. It could be an acute gout attack. Will continue with colchicine and allopurinol. Will also add prednisone. Tremor. 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 Diastolic congestive heart failure. Will continue with torsemide and spironolactone. Will place the patient on fluid restriction. The patient has increased leg swelling. If the patient does not have adequate negative balance, will increase dose of diuretics. Diabetes. Will continue with Levemir and Lispro insulin as per sliding scale. Will hold Januvia at present. Hypertension and hypertensive heart disease. Will continue with bisoprolol. Gastroesophageal reflux disease. Will continue with omeprazole. Seizure disorder. Will continue with Depakote. 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 Will continue with Pradaxa and bisoprolol. Chronic obstructive pulmonary disease. Will continue with nebulizers. Obstructive sleep apnea. Will continue with continuous positive airway pressure (CPAP). Deep vein thrombosis (DVT) prophylaxis. Patient is on Pradaxa. Gastrointestinal (GI) prophylaxis has been ordered.
[2016-07-12] MEDS: GABAPENTIN 100 MG CAP PO SCH (22:24)
[2016-07-12] MEDS: MAGNESIUM OXIDE 400 MG TAB (MAG-OX) PO SCH (22:24)
[2016-07-12] MEDS: ALLOPURINOL 300 MG TAB PO SCH (22:24)
[2016-07-12] MEDS: MULTIVITAMINS/MINERALS THERAP 1 TAB PO SCH (22:24)
[2016-07-12] MEDS: ASPIRIN 81 MG ENTERIC TAB PO SCH (22:24)
[2016-07-12] MEDS: OMEPRAZOLE 20 MG CAP PO SCH (22:24)
[2016-07-12] MEDS: DIVALPROEX 500MG *ER* TAB PO SCH (22:25)
[2016-07-12] MEDS: CLINDAMYCIN 150 MG CAP PO SCH (22:25)
[2016-07-12] MEDS: LEVEMIR (INSULIN DETEMIR) 1 UNITS/0.01ML SC SCH (22:26)
[2016-07-12] MEDS: BISOPROLOL FUMARATE 10 MG TAB PO SCH (22:27)
[2016-07-12] MEDS: DABIGATRAN ETEXILATE 75 MG CAP (PRADAXA) PO SCH (22:30)
[2016-07-12] MEDS: COLCHICINE 0.6 MG TAB PO SCH (22:30)
[2016-07-12] MEDS: TORSEMIDE 100 MG TAB PO SCH (22:30)
[2016-07-13 06:00] VITALS: BP 102/60
[2016-07-13] MEDS: CLINDAMYCIN 150 MG CAP PO SCH (06:30)
[2016-07-13] MEDS ORDERED: SLF 3 ML SYR IV PRN (08:00)
[2016-07-13] MEDS ORDERED: LEVOTHYROXINE 0.15 MG TAB (150 MCG) PO SCH (08:30)
[2016-07-13 09:00] LABS: MEAN CORPUSCULAR HEMOGLOBIN 30.5 pg (27.0-33.0); MEAN CORPUSCULAR HGB CONC 32.6 g/dl (32.0-36.5); MEAN CORPUSCULAR VOLUME 93.6 fl (80.0-96.0); RED CELL DISTRIBUTION WIDTH 15.3 % (11.5-14.5); WHITE BLOOD COUNT 7.9 K/mm3 (4.0-10.0)
[2016-07-13] MEDS: MAGNESIUM OXIDE 400 MG TAB (MAG-OX) PO SCH ×2 (09:33→22:00)
[2016-07-13] MEDS: predniSONE 20 MG TAB PO SCH (09:33)
[2016-07-13] MEDS: COLCHICINE 0.6 MG TAB PO SCH ×2 (09:33→22:00)
[2016-07-13] MEDS: DABIGATRAN ETEXILATE 75 MG CAP (PRADAXA) PO SCH ×2 (09:33→21:59)
[2016-07-13] MEDS: TORSEMIDE 100 MG TAB PO SCH ×2 (09:33→22:00)
[2016-07-13] MEDS: SPIRONOLACTONE 25 MG TAB PO SCH (09:34)
[2016-07-13] MEDS: LEVOTHYROXINE 0.075 MG TAB (75 MCG) PO SCH (09:34)
[2016-07-13] MEDS: DIVALPROEX 500MG *ER* TAB PO SCH ×2 (09:34→21:59)
[2016-07-13] MEDS: GABAPENTIN 100 MG CAP PO SCH ×3 (09:34→21:59)
[2016-07-13] MEDS: LEVOTHYROXINE 0.1 MG TAB (100 MCG) PO SCH (09:34)
[2016-07-13] MEDS: HumaLOG INSULIN (NovoLOG) PER UNIT SC SCH ×4 (09:35→21:00)
[2016-07-13] MEDS: NYSTATIN 100,000 UNITS/GM TOPICAL PWD 15 GM TOP SCH ×2 (09:35→22:01)
[2016-07-13] MEDS: LEVEMIR (INSULIN DETEMIR) 1 UNITS/0.01ML SC SCH ×2 (09:35→22:01)
[2016-07-13 09:41] LABS: CALCIUM LEVEL 8.3 MG/DL (8.8-10.2); CREATININE FOR GFR 1.35 MG/DL (0.70-1.30); GLOMERULAR FILTRATION RATE 55.6 (>42); POTASSIUM SERUM 4.4 MEQ/L (3.5-5.1)
--- NOTE | 2016-07-13 12:14 | IPNPDOC ---
Subjective Date Seen The patient was seen on 07/13/16. Subjective Chief Complaint/HPI The patient is a 70-year-old male admitted with a reason for visit of Tremor, Inability To Ambulate Due To Hip. General: Reports: Fatigue, Denies: Chills, Night Sweats Constitutional: Denies: Chills, Fever Eyes: Denies: Pain, Vision change ENT: Denies: Head Aches, Ear Pain Skin: Reports: Bruising (Abdominal wall), Denies: Rash Pulmonary: Denies: Dyspnea, Cough Cardiovascular: Denies: Chest Pain, Palpitations Gastrointestinal: Denies: Nausea, Vomiting Genitourinary: Denies: Dysuria, Frequency Hematologic: Denies: Bruising, Bleeding Excessively Musculoskeletal: Reports: Arm Pain (Right Elbow ) Objective Physical Examination General Exam: Positive: Alert, Cooperative, No Acute Distress ENT Exam: Positive: Atraumatic, Mucous membr. moist/pink Neck Exam: Negative: JVD Chest Exam: Positive: Clear to auscultation, Normal air movement Heart Exam: Positive: Rate Normal, Normal S1, Normal S2 Abdomen Exam: Positive: Soft, Other (abdominal wall noted to have superficial bruising. No tenderness to palpation, guarding, rigidity, or rebound tenderness) , Negative: Tenderness Extremity Exam: Positive: Other (Right Elbow noted to be edematous, mildly tender to palpation with limited ROM. Lower extremities with no swelling or tenderness B/L) Psych Exam: Positive: Oriented x 3 Assessment /Plan Plan/VTE VTE Prophylaxis Ordered?: Yes Plan Generalized Deconditioning with Chronic back pain, Gait Imbalance XR imaging with no acute bony fractures or dislocations noted Physical, Occupational therapy evaluation ordered Continue Percocet, Ketorolac, Lidoderm prn Will follow up with PT/OT Evals, and PFS for further delineation of safe disposition as the patient is currently living by himself Right elbow pain and swelling 2/2 Gout Attack Elbow X-Ray noted with some soft tissue swelling/bursitis Patient denies any trauma and does note that he has suffered similar gout attacks in the past of his ankles, wrists, and elbows bilaterally Continue with colchicine and allopurinol Cont Prednisone 20 mg Patient states that his elbow is already improving today Abdominal Wall Bruising CT scan of the abdomen/pelvis notable for superficial subcutaneous thickening/ swelling Patient denies any trauma or any pain on palpation We will continue to monitor Diastolic Congestive Heart Failure, compensated Patient appears Euvolemic today Continue torsemide and spironolactone as scheduled. Insulin-dependent Diabetes mellitus Continue with Levemir and Lispro insulin as per sliding scale. Hypertension, stable. Continue with bisoprolol. Gastroesophageal reflux disease Continue omeprazole. Hypothyroidism TSH within normal limits Continue levothyroxine Seizure disorder Continue Depakote. 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 Chronic obstructive pulmonary disease, stable Continue albuterol, nebulizers Obstructive sleep apnea Continue CPAP use Deep vein thrombosis (DVT) prophylaxis Already on Pradaxa Disposition-Will follow up with PT/OT Evals, and PFS for further delineation of safe disposition as the patient is currently living by himself VS, I&O, 24H, Fishbone Vital Signs/I&O Vital Signs Date Time Temp Pulse Resp B/P (MAP) Pulse Ox O2 Delivery O2 Flow Rate FiO2 07/13/16 07:24 18 07/13/16 06:00 97.5 60 102/60 (74) 92 Room Air I&O- Last 24 Hours up to 6 AM 07/13/16 06:00 Intake Total 238 ml Output Total 1975 ml Balance -1737 ml Laboratory Data 24H LABS Laboratory Tests 2 07/12/16 17:35: Erythrocyte Sedimentation Rate 5, Anion Gap 7L, Glomerular Filtration Rate > 60.0, Blood Urea Nitrogen 24H, Creatinine 1.16, Sodium Level 142, Potassium Level 4.7, Chloride Level 111H, Carbon Dioxide Level 24, Calcium Level 8.6L, Aspartate Amino Transf (AST/SGOT) 17, Alanine Aminotransferase (ALT/SGPT) 11L, Alkaline Phosphatase 161H, Total Bilirubin 1.3H, Total Protein 5.9L, Albumin 3.2 , Albumin/Globulin Ratio 1.19 07/12/16 21:46: Bedside Glucose (Misc Panel) 170H 07/13/16 06:56: Bedside Glucose (Misc Panel) 169H 07/13/16 08:46: Anion Gap 7L, Glomerular Filtration Rate 55.6, Blood Urea Nitrogen 26H, Creatinine 1.35H, Sodium Level 142, Potassium Level 4.4, Chloride Level 110H, Carbon Dioxide Level 25, Calcium Level 8.3L, Thyroid Stimulating Hormone (TSH) 1.080 CBC/BMP Laboratory Tests 07/12/16 17:35 Red Blood Count 4.63, Mean Corpuscular Volume 94.5, Mean Corpuscular Hemoglobin 29.6, Mean Corpuscular Hemoglobin Concent 31.4 L, Red Cell Distribution Width 15.2 H, Calcium Level 8.6 L, Aspartate Amino Transf (AST/SGOT) 17, Alanine Aminotransferase (ALT/SGPT) 11 L, Alkaline Phosphatase 161 H, Total Bilirubin 1.3 H, Total Protein 5.9 L, Albumin 3.2 07/13/16 08:46 Red Blood Count 4.14 L, Mean Corpuscular Volume 93.6, Mean Corpuscular Hemoglobin 30.5, Mean Corpuscular Hemoglobin Concent 32.6, Red Cell Distribution Width 15.3 H, Calcium Level 8.3 L JOAO GRULLON MD July 13, 2016 12:14
[2016-07-13] MEDS: SLF 3 ML SYR IV SCH ×2 (13:52→22:02)
[2016-07-13 14:00] VITALS: BP 116/65
[2016-07-13] MEDS: BISOPROLOL FUMARATE 10 MG TAB PO SCH (21:00)
[2016-07-13] MEDS: ALLOPURINOL 300 MG TAB PO SCH (21:59)
[2016-07-13] MEDS: ASPIRIN 81 MG ENTERIC TAB PO SCH (21:59)
[2016-07-13 22:00] VITALS: BP 102/60
[2016-07-13] MEDS: OMEPRAZOLE 20 MG CAP PO SCH (22:00)
[2016-07-13] MEDS: MULTIVITAMINS/MINERALS THERAP 1 TAB PO SCH (22:01)
[2016-07-14] MEDS: LEVOTHYROXINE 0.1 MG TAB (100 MCG) PO SCH (05:41)
[2016-07-14] MEDS: LEVOTHYROXINE 0.075 MG TAB (75 MCG) PO SCH (05:41)
[2016-07-14] MEDS: SLF 3 ML SYR IV SCH ×3 (05:42→20:37)
[2016-07-14 06:00] VITALS: BP 103/64
[2016-07-14 06:17] LABS: MEAN CORPUSCULAR HEMOGLOBIN 29.6 pg (27.0-33.0); MEAN CORPUSCULAR VOLUME 95.6 fl (80.0-96.0); RED CELL DISTRIBUTION WIDTH 15.1 % (11.5-14.5); WHITE BLOOD COUNT 7.2 K/mm3 (4.0-10.0)
[2016-07-14 06:54] LABS: CALCIUM LEVEL 8.5 MG/DL (8.8-10.2); CREATININE FOR GFR 1.52 MG/DL (0.70-1.30); GLOMERULAR FILTRATION RATE 48.5 (>42)
[2016-07-14] MEDS: HumaLOG INSULIN (NovoLOG) PER UNIT SC SCH ×4 (07:50→20:38)
[2016-07-14] MEDS: predniSONE 20 MG TAB PO SCH (09:00)
[2016-07-14 09:30] VITALS: BP 97/61
[2016-07-14] MEDS: DIVALPROEX 500MG *ER* TAB PO SCH ×2 (09:53→20:36)
[2016-07-14] MEDS: DABIGATRAN ETEXILATE 75 MG CAP (PRADAXA) PO SCH ×2 (09:53→20:35)
[2016-07-14] MEDS: TORSEMIDE 100 MG TAB PO SCH ×2 (09:53→20:37)
[2016-07-14] MEDS: MAGNESIUM OXIDE 400 MG TAB (MAG-OX) PO SCH ×2 (09:54→20:36)
[2016-07-14] MEDS: SPIRONOLACTONE 25 MG TAB PO SCH (09:54)
[2016-07-14] MEDS: COLCHICINE 0.6 MG TAB PO SCH ×2 (09:54→20:35)
[2016-07-14] MEDS: GABAPENTIN 100 MG CAP PO SCH ×3 (09:55→20:35)
[2016-07-14] MEDS: LEVEMIR (INSULIN DETEMIR) 1 UNITS/0.01ML SC SCH ×2 (09:56→20:37)
[2016-07-14] MEDS: NYSTATIN 100,000 UNITS/GM TOPICAL PWD 15 GM TOP SCH ×2 (09:57→20:38)
--- NOTE | 2016-07-14 13:56 | IPNPDOC ---
Subjective Date Seen The patient was seen on 07/14/16. Subjective Chief Complaint/HPI The patient is a 70-year-old male admitted with a reason for visit of Tremor, Inability To Ambulate Due To Hip. General: Denies: Chills, Night Sweats Constitutional: Denies: Chills, Fever Eyes: Denies: Pain, Vision change ENT: Denies: Head Aches, Ear Pain Skin: Denies: Rash, Lesions Pulmonary: Denies: Dyspnea, Cough Cardiovascular: Denies: Chest Pain, Palpitations Gastrointestinal: Denies: Nausea, Vomiting Genitourinary: Denies: Dysuria, Frequency Hematologic: Denies: Bruising, Bleeding Excessively Objective Physical Examination General Exam: Positive: Alert, Cooperative, No Acute Distress ENT Exam: Positive: Atraumatic, Mucous membr. moist/pink Neck Exam: Negative: JVD Chest Exam: Positive: Clear to auscultation, Normal air movement Heart Exam: Positive: Rate Normal, Normal S1, Normal S2 Abdomen Exam: Positive: Soft, Other (abdominal wall noted to have superficial bruising. No tenderness to palpation, guarding, rigidity, or rebound tenderness) , Negative: Tenderness Extremity Exam: Positive: Other (Right elbow noted to have significant improvement on ROM. No erythema,or tenderness to palpation.) Psych Exam: Positive: Oriented x 3 Assessment /Plan Plan/VTE VTE Prophylaxis Ordered?: Yes Plan Generalized Deconditioning with Chronic back pain, Gait Imbalance XR imaging with no acute bony fractures or dislocations noted Physical, Occupational therapy evaluation ordered Continue Percocet, Ketorolac, Lidoderm prn Will follow up with PT/OT Evals, and PFS for further delineation of safe disposition as the patient is currently living by himself Right elbow pain and swelling 2/2 Gout Attack Elbow X-Ray noted with some soft tissue swelling/bursitis Patient denies any trauma and does note that he has suffered similar gout attacks in the past of his ankles, wrists, and elbows bilaterally Continue with colchicine and allopurinol Cont Prednisone 20 mg Patient states that his elbow is feeling significantly better today with increased ROM Abdominal Wall Bruising CT scan of the abdomen/pelvis notable for superficial subcutaneous thickening/ swelling Patient denies any trauma or any pain on palpation We will continue to monitor Diastolic Congestive Heart Failure, compensated Patient appears Euvolemic today Continue torsemide and spironolactone as scheduled. Insulin-dependent Diabetes mellitus Continue with Levemir and Lispro insulin as per sliding scale. Hypertension, stable. Continue with bisoprolol. Gastroesophageal reflux disease Continue omeprazole. Hypothyroidism TSH within normal limits Continue levothyroxine Seizure disorder Continue Depakote. 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 Chronic obstructive pulmonary disease, stable Continue albuterol, nebulizers Obstructive sleep apnea Continue CPAP use Deep vein thrombosis (DVT) prophylaxis Already on Pradaxa Disposition-Will follow up with PT/OT Evals, and PFS for further delineation of safe disposition as the patient is currently living by himself VS, I&O, 24H, Fishbone Vital Signs/I&O Vital Signs Date Time Temp Pulse Resp B/P (MAP) Pulse Ox O2 Delivery O2 Flow Rate FiO2 07/14/16 09:30 97.1 60 14 97/61 (73) 94 Room Air I&O- Last 24 Hours up to 6 AM 07/14/16 06:00 Intake Total 1380 ml Output Total 2100 ml Balance -720 ml Laboratory Data 24H LABS Laboratory Tests 2 07/13/16 17:02: Bedside Glucose (Misc Panel) 214H 07/13/16 20:56: Bedside Glucose (Misc Panel) 188H 07/14/16 05:20: Anion Gap 8, Glomerular Filtration Rate 48.5, Blood Urea Nitrogen 40#H, Creatinine 1.52H, Sodium Level 142, Potassium Level 4.0, Chloride Level 105, Carbon Dioxide Level 29, Calcium Level 8.5L 07/14/16 11:46: Bedside Glucose (Misc Panel) 115H CBC/BMP Laboratory Tests 07/14/16 05:20 Red Blood Count 4.25 L, Mean Corpuscular Volume 95.6, Mean Corpuscular Hemoglobin 29.6, Mean Corpuscular Hemoglobin Concent 31.0 L, Red Cell Distribution Width 15.1 H, Calcium Level 8.5 L JOAO GRULLON MD July 14, 2016 13:56
[2016-07-14 14:02] VITALS: BP 110/62
[2016-07-14] MEDS: OMEPRAZOLE 20 MG CAP PO SCH (20:35)
[2016-07-14] MEDS: ASPIRIN 81 MG ENTERIC TAB PO SCH (20:35)
[2016-07-14] MEDS: ALLOPURINOL 300 MG TAB PO SCH (20:36)
[2016-07-14] MEDS: MULTIVITAMINS/MINERALS THERAP 1 TAB PO SCH (20:36)
[2016-07-14] MEDS: BISOPROLOL FUMARATE 10 MG TAB PO SCH (20:39)
[2016-07-14 22:00] VITALS: BP 105/67
[2016-07-15 05:44] LABS: MEAN CORPUSCULAR VOLUME 93.6 fl (80.0-96.0); RED CELL DISTRIBUTION WIDTH 15.4 % (11.5-14.5); WHITE BLOOD COUNT 7.2 K/mm3 (4.0-10.0)
[2016-07-15] MEDS: LEVOTHYROXINE 0.1 MG TAB (100 MCG) PO SCH (05:44)
[2016-07-15] MEDS: LEVOTHYROXINE 0.075 MG TAB (75 MCG) PO SCH (05:44)
[2016-07-15] MEDS: SLF 3 ML SYR IV SCH ×3 (05:44→20:47)
[2016-07-15 05:55] LABS: CALCIUM LEVEL 8.5 MG/DL (8.8-10.2); CREATININE FOR GFR 1.4 MG/DL (0.70-1.30); GLOMERULAR FILTRATION RATE 53.3 (>42); POTASSIUM SERUM 3.3 MEQ/L (3.5-5.1)
[2016-07-15 06:00] VITALS: BP 114/65
--- NOTE | 2016-07-15 07:24 | ECHO ---
DATE OF PROCEDURE: 07/14/2016 DATE OF " 1945 AGE: 70 GENDER: Male HEIGHT: 74 inches WEIGHT: 276 pounds BODY SURFACE AREA: 2.49 meters squared INPATIENT: [address] [place] [address], Room 4201 REFERRING PHYSICIAN: Dr. Dee Machado INDICATION: Edema. MEASUREMENTS 2D measurements: RV: 4.4 cm LV: 4.5 cm Septum: 1.5 cm Posterior wall: 1.4 cm Aortic root: 3.6 cm LA: 5.9 cm LVEF: 65% Doppler Measurements: AV: 1.1 meters per second LVOT: 1.1 meters per second MV-E: 93 Early mitral deceleration time: 185 milliseconds E prime: 6.3 E/E prime ratio: 14.6 PV: 1.2 meters per second Pulmonary artery acceleration time: 95 milliseconds RVSP: 40 mmHg IVC: 2.4 cm COMMENTS: Underlying atrial fibrillation with consistent ventricular paced rhythm with a left bundle branch block, QRS configuration. Slightly challenging patient in light of the patient's body habitus. Diagnostically useful information was still obtained. Prominently dilated left atrium but normal left ventricular size. Mildly dilated right heart chambers. LV wall thickness was moderately increased symmetrically. On real-time imaging from the parasternal and projections, wall motion was symmetrical and normal to hyperkinetic. Mild mitral annular thickening but normal leaflet thickness and excursion with no posterior systolic buckling. Three equal size aortic cusps of normal thickness and cusp separation. Normal aortic root size. No apparent intracardiac mass or pericardial effusion beyond the patient's ventricular pacing lead that could be visualized traversing right heart structures. Color flow Doppler study taken from the parasternal and apical projection showed trace mitral, but we could not visualize more than mild tricuspid insufficiency. There was no aortic insufficiency. Guided continuous wave Doppler of his aortic valve showed a normal peak systolic velocity against LV outflow tract obstruction. Pulsed and continuous wave Doppler of his LV inflow tract taken from the apical four-chamber projection showed normal diastolic filling velocities against mitral stenosis. There was only early diastolic/passive filling pattern as we would expect with atrial fibrillation. Using pulsed and tissue Doppler of his mitral annulus, his current estimated mean left atrial pressure was only mildly increased at approximately 18 mmHg. Pulsed and continuous wave Doppler of his pulmonary trunk showed a normal peak systolic velocity against RV outflow tract obstruction. His pulmonary artery acceleration time was at least mildly abbreviated consistent with an elevated pulmonary vascular resistance. Guided continuous wave Doppler of his tricuspid valve allowed our estimation of his right ventricular systolic pressure (at least moderately increased). His inferior vena cava was mildly dilated with slightly reduced respiratory collapse suggestive of a mildly elevated central venous pressure. CONCLUSIONS: Somewhat technically challenging study. Moderate concentric left ventricle hypertrophy with preserved systolic function. Prominently dilated left atrium with current Doppler estimated mean left atrial pressure at least mildly increased. Mildly dilated right heart chambers with Doppler evidence of least moderate pulmonary hypertension. Mildly dilated inferior vena cava with reduced respiratory collapse suggestive of a slightly elevated central venous pressure. Comparing the above test findings with a study on 07/13/2013, mean left atrial pressure was slightly higher, right heart chamber sizes appear to be mildly increased as does pulmonary arterial pressure and central venous pressure.
[2016-07-15] MEDS: HumaLOG INSULIN (NovoLOG) PER UNIT SC SCH ×4 (07:30→20:43)
[2016-07-15] MEDS ORDERED: POTASSIUM CHLORIDE 10 MEQ SR TABLET PO SCH (09:00)
[2016-07-15] MEDS: TORSEMIDE 100 MG TAB PO SCH ×2 (09:24→20:42)
[2016-07-15] MEDS: predniSONE 20 MG TAB PO SCH (09:25)
[2016-07-15] MEDS: DABIGATRAN ETEXILATE 75 MG CAP (PRADAXA) PO SCH ×2 (09:25→20:41)
[2016-07-15] MEDS: SPIRONOLACTONE 25 MG TAB PO SCH (09:25)
[2016-07-15] MEDS: COLCHICINE 0.6 MG TAB PO SCH ×2 (09:25→20:42)
[2016-07-15] MEDS: GABAPENTIN 100 MG CAP PO SCH ×3 (09:25→20:41)
[2016-07-15] MEDS: DIVALPROEX 500MG *ER* TAB PO SCH ×2 (09:26→20:42)
[2016-07-15] MEDS: NYSTATIN 100,000 UNITS/GM TOPICAL PWD 15 GM TOP SCH ×2 (09:26→20:40)
[2016-07-15] MEDS: MAGNESIUM OXIDE 400 MG TAB (MAG-OX) PO SCH ×2 (09:26→20:42)
[2016-07-15] MEDS: LEVEMIR (INSULIN DETEMIR) 1 UNITS/0.01ML SC SCH ×2 (09:27→20:43)
--- NOTE | 2016-07-15 13:49 | IPNPDOC ---
Subjective Date Seen The patient was seen on 07/15/16. Subjective Chief Complaint/HPI The patient is a 70-year-old male admitted with a reason for visit of Tremor, Inability To Ambulate Due To Hip. General: Denies: Chills, Night Sweats Constitutional: Denies: Chills, Fever Eyes: Denies: Pain, Vision change ENT: Denies: Head Aches, Ear Pain Skin: Denies: Rash, Lesions Pulmonary: Denies: Dyspnea, Cough Cardiovascular: Denies: Chest Pain, Palpitations Gastrointestinal: Denies: Nausea, Vomiting Genitourinary: Denies: Dysuria, Frequency Hematologic: Denies: Bruising, Bleeding Excessively Objective Physical Examination General Exam: Positive: Alert, Cooperative, No Acute Distress ENT Exam: Positive: Atraumatic, Mucous membr. moist/pink Neck Exam: Negative: JVD Chest Exam: Positive: Clear to auscultation, Normal air movement Heart Exam: Positive: Rate Normal, Normal S1, Normal S2 Abdomen Exam: Positive: Soft, Other (abdominal wall noted to have superficial bruising. No tenderness to palpation, guarding, rigidity, or rebound tenderness) , Negative: Tenderness Extremity Exam: Positive: Other (Right elbow noted to have significant improvement on ROM. No erythema,or tenderness to palpation.) Psych Exam: Positive: Oriented x 3 Assessment /Plan Plan/VTE VTE Prophylaxis Ordered?: Yes Plan Generalized Deconditioning with Chronic back pain, Gait Imbalance XR imaging with no acute bony fractures or dislocations noted Physical, Occupational therapy recommendations noted Continue Percocet, Ketorolac, Lidoderm prn Will follow up with PT/OT Evals, and PFS for further delineation of safe disposition as the patient is currently living by himself Right elbow pain and swelling 2/2 Gout Attack Elbow X-Ray noted with some soft tissue swelling/bursitis Patient denies any trauma and does note that he has suffered similar gout attacks in the past of his ankles, wrists, and elbows bilaterally Continue with colchicine and allopurinol Cont Prednisone 20 mg Patient states that his elbow is feeling significantly better and continues to improve today Abdominal Wall Bruising CT scan of the abdomen/pelvis notable for superficial subcutaneous thickening/ swelling Patient denies any trauma or any pain on palpation We will continue to monitor Diastolic Congestive Heart Failure, compensated Patient appears Euvolemic today Continue torsemide and spironolactone as scheduled. Insulin-dependent Diabetes mellitus Continue with Levemir and Lispro insulin as per sliding scale. Hypertension, stable. Continue with bisoprolol. Gastroesophageal reflux disease Continue omeprazole. Hypothyroidism TSH within normal limits Continue levothyroxine Seizure disorder Continue Depakote. 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 Chronic obstructive pulmonary disease, stable Continue albuterol, nebulizers Obstructive sleep apnea Continue CPAP use Deep vein thrombosis (DVT) prophylaxis Already on Pradaxa Disposition-Will follow up with PT/OT Evals, and PFS for further delineation of safe disposition as the patient is currently living by himself VS, I&O, 24H, Fishbone Vital Signs/I&O Vital Signs Date Time Temp Pulse Resp B/P (MAP) Pulse Ox O2 Delivery O2 Flow Rate FiO2 07/15/16 09:15 Room Air 07/15/16 06:00 96.8 61 20 114/65 (81) 90 I&O- Last 24 Hours up to 6 AM 07/15/16 05:59 Intake Total 1020 ml Output Total 2475 ml Balance -1455 ml Laboratory Data 24H LABS Laboratory Tests 2 07/14/16 16:32: Bedside Glucose (Misc Panel) 189H 07/14/16 20:22: Bedside Glucose (Misc Panel) 141H 07/15/16 05:13: Anion Gap 8, Glomerular Filtration Rate 53.3, Blood Urea Nitrogen 48H, Creatinine 1.40H, Sodium Level 144, Potassium Level 3.3L, Chloride Level 105, Carbon Dioxide Level 31, Calcium Level 8.5L 07/15/16 06:22: Bedside Glucose (Misc Panel) 77L 07/15/16 06:59: Bedside Glucose (Misc Panel) 102 07/15/16 11:33: Bedside Glucose (Misc Panel) 124H CBC/BMP Laboratory Tests 07/15/16 05:13 Red Blood Count 4.46, Mean Corpuscular Volume 93.6, Mean Corpuscular Hemoglobin 30.0, Mean Corpuscular Hemoglobin Concent 32.0, Red Cell Distribution Width 15.4 H, Calcium Level 8.5 L JOAO GRULLON MD July 15, 2016 13:49
[2016-07-15 14:00] VITALS: BP 114/63
[2016-07-15] MEDS: BISOPROLOL FUMARATE 10 MG TAB PO SCH (20:03)
[2016-07-15] MEDS: ASPIRIN 81 MG ENTERIC TAB PO SCH (20:41)
[2016-07-15] MEDS: OMEPRAZOLE 20 MG CAP PO SCH (20:41)
[2016-07-15] MEDS: ALLOPURINOL 300 MG TAB PO SCH (20:42)
[2016-07-15] MEDS: MULTIVITAMINS/MINERALS THERAP 1 TAB PO SCH (20:47)
[2016-07-16 05:35] LABS: MEAN CORPUSCULAR HEMOGLOBIN 30.4 pg (27.0-33.0); MEAN CORPUSCULAR HGB CONC 31.4 g/dl (32.0-36.5); MEAN CORPUSCULAR VOLUME 96.7 fl (80.0-96.0); WHITE BLOOD COUNT 6.7 K/mm3 (4.0-10.0)
[2016-07-16] MEDS: LEVOTHYROXINE 0.075 MG TAB (75 MCG) PO SCH (05:43)
[2016-07-16] MEDS: LEVOTHYROXINE 0.1 MG TAB (100 MCG) PO SCH (05:43)
[2016-07-16] MEDS: SLF 3 ML SYR IV SCH ×3 (05:43→21:10)
[2016-07-16 05:50] LABS: CALCIUM LEVEL 8.5 MG/DL (8.8-10.2); CREATININE FOR GFR 1.51 MG/DL (0.70-1.30); GLOMERULAR FILTRATION RATE 48.9 (>42); POTASSIUM SERUM 4.2 MEQ/L (3.5-5.1)
[2016-07-16 06:00] VITALS: BP 109/62
[2016-07-16] MEDS ORDERED: D5W 500 ML IV SCH (07:15)
[2016-07-16] MEDS: MAGNESIUM OXIDE 400 MG TAB (MAG-OX) PO SCH ×2 (08:41→21:07)
[2016-07-16] MEDS: DABIGATRAN ETEXILATE 75 MG CAP (PRADAXA) PO SCH ×2 (08:41→21:06)
[2016-07-16] MEDS: GABAPENTIN 100 MG CAP PO SCH ×3 (08:41→21:08)
[2016-07-16] MEDS: predniSONE 20 MG TAB PO SCH (08:41)
[2016-07-16] MEDS: DIVALPROEX 500MG *ER* TAB PO SCH ×2 (08:41→21:07)
[2016-07-16] MEDS: LEVEMIR (INSULIN DETEMIR) 1 UNITS/0.01ML SC SCH ×2 (08:42→21:08)
[2016-07-16] MEDS: COLCHICINE 0.6 MG TAB PO SCH ×2 (08:42→21:07)
[2016-07-16] MEDS: NYSTATIN 100,000 UNITS/GM TOPICAL PWD 15 GM TOP SCH ×2 (08:43→21:10)
[2016-07-16] MEDS: HumaLOG INSULIN (NovoLOG) PER UNIT SC SCH ×4 (08:43→21:09)
--- NOTE | 2016-07-16 11:55 | IPNPDOC ---
Subjective Date Seen The patient was seen on 07/16/16. Subjective Chief Complaint/HPI The patient is a 70-year-old male admitted with a reason for visit of Tremor, Inability To Ambulate Due To Hip. General: Denies: Chills, Night Sweats Constitutional: Denies: Chills, Fever Eyes: Denies: Pain, Vision change ENT: Denies: Head Aches, Ear Pain Skin: Denies: Rash, Lesions Pulmonary: Denies: Dyspnea, Cough Cardiovascular: Denies: Chest Pain, Palpitations Gastrointestinal: Denies: Nausea, Vomiting Genitourinary: Denies: Dysuria, Frequency Hematologic: Denies: Bruising, Bleeding Excessively Objective Physical Examination General Exam: Positive: Alert, Cooperative, No Acute Distress ENT Exam: Positive: Atraumatic, Mucous membr. moist/pink Neck Exam: Negative: JVD Chest Exam: Positive: Clear to auscultation, Normal air movement Heart Exam: Positive: Rate Normal, Normal S1, Normal S2 Abdomen Exam: Positive: Soft, Other (abdominal wall noted to have superficial bruising. No tenderness to palpation, guarding, rigidity, or rebound tenderness) , Negative: Tenderness Extremity Exam: Positive: Other (Right elbow noted to have significant improvement on ROM. No erythema,or tenderness to palpation.) Psych Exam: Positive: Oriented x 3 Assessment /Plan Plan/VTE VTE Prophylaxis Ordered?: Yes Plan Generalized Deconditioning with Chronic back pain, Gait Imbalance XR imaging with no acute bony fractures or dislocations noted Physical, Occupational therapy recommendations noted Continue Percocet, Ketorolac, Lidoderm prn Will follow up with PT/OT Evals, and PFS for further delineation of safe disposition as the patient is currently living by himself Right elbow pain and swelling 2/2 Gout Attack Elbow X-Ray noted with some soft tissue swelling/bursitis Patient denies any trauma and does note that he has suffered similar gout attacks in the past of his ankles, wrists, and elbows bilaterally Continue with colchicine and allopurinol On Prednisone 20 mg, will taper over the next 2 days Patient states that his elbow is feeling significantly better and continues to improve today Abdominal Wall Bruising CT scan of the abdomen/pelvis notable for superficial subcutaneous thickening/ swelling Patient denies any trauma or any pain on palpation We will continue to monitor Diastolic Congestive Heart Failure, compensated Patient appears Euvolemic today Continue torsemide and spironolactone as scheduled. Insulin-dependent Diabetes mellitus Continue with Levemir and Lispro insulin as per sliding scale. Hypertension, stable. Continue with bisoprolol. Gastroesophageal reflux disease Continue omeprazole. Hypothyroidism TSH within normal limits Continue levothyroxine Seizure disorder Continue Depakote. 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 Chronic obstructive pulmonary disease, stable Continue albuterol, nebulizers Obstructive sleep apnea Continue CPAP use Deep vein thrombosis (DVT) prophylaxis Already on Pradaxa Disposition-Will follow up with PT/OT Evals, and PFS for further delineation of safe disposition as the patient is currently living by himself VS, I&O, 24H, Fishbone Vital Signs/I&O Vital Signs Date Time Temp Pulse Resp B/P (MAP) Pulse Ox O2 Delivery O2 Flow Rate FiO2 07/16/16 09:06 Room Air 07/16/16 06:00 97.6 60 20 109/62 (78) 93 I&O- Last 24 Hours up to 6 AM 07/16/16 05:59 Intake Total 1530 ml Output Total 1950 ml Balance -420 ml Laboratory Data 24H LABS Laboratory Tests 2 07/15/16 16:27: Bedside Glucose (Misc Panel) 238H 07/15/16 20:28: Bedside Glucose (Misc Panel) 290H 07/16/16 05:06: Anion Gap 9, Glomerular Filtration Rate 48.9, Blood Urea Nitrogen 53H, Creatinine 1.51H, Sodium Level 148H, Potassium Level 4.2#, Chloride Level 106, Carbon Dioxide Level 33H, Calcium Level 8.5L CBC/BMP Laboratory Tests 07/16/16 05:06 Red Blood Count 4.53, Mean Corpuscular Volume 96.7 H, Mean Corpuscular Hemoglobin 30.4, Mean Corpuscular Hemoglobin Concent 31.4 L, Red Cell Distribution Width 15.0 H, Calcium Level 8.5 L JOAO GRULLON MD July 16, 2016 11:55
[2016-07-16 14:00] VITALS: BP 109/53
[2016-07-16] MEDS: BISOPROLOL FUMARATE 10 MG TAB PO SCH (20:55)
[2016-07-16] MEDS: MULTIVITAMINS/MINERALS THERAP 1 TAB PO SCH (21:07)
[2016-07-16] MEDS: ASPIRIN 81 MG ENTERIC TAB PO SCH (21:07)
[2016-07-16] MEDS: ALLOPURINOL 300 MG TAB PO SCH (21:07)
[2016-07-16] MEDS: OMEPRAZOLE 20 MG CAP PO SCH (21:07)
[2016-07-16 22:00] VITALS: BP 116/64
[2016-07-17 06:00] VITALS: BP 114/60
[2016-07-17] MEDS: LEVOTHYROXINE 0.075 MG TAB (75 MCG) PO SCH (06:01)
[2016-07-17] MEDS: SLF 3 ML SYR IV SCH ×3 (06:01→21:13)
[2016-07-17] MEDS: LEVOTHYROXINE 0.1 MG TAB (100 MCG) PO SCH (06:01)
[2016-07-17 06:03] LABS: MEAN CORPUSCULAR HEMOGLOBIN 29.9 pg (27.0-33.0); MEAN CORPUSCULAR HGB CONC 31.5 g/dl (32.0-36.5); MEAN CORPUSCULAR VOLUME 94.9 fl (80.0-96.0); RED CELL DISTRIBUTION WIDTH 15.1 % (11.5-14.5); WHITE BLOOD COUNT 5.4 K/mm3 (4.0-10.0)
[2016-07-17 06:17] LABS: ANION GAP 7 MEQ/L (8-16); BLOOD UREA NITROGEN 49 MG/DL (7-18); CALCIUM LEVEL 8.5 MG/DL (8.8-10.2); CARBON DIOXIDE LEVEL 33 MEQ/L (21-32); CHLORIDE LEVEL 105 MEQ/L (98-107); CREATININE FOR GFR 1.21 MG/DL (0.70-1.30); GLOMERULAR FILTRATION RATE > 60.0 (>42); GLUCOSE, FASTING 56 MG/DL (83-110); POTASSIUM SERUM 3.7 MEQ/L (3.5-5.1); SODIUM LEVEL 145 MEQ/L (136-145)
[2016-07-17] MEDS: HumaLOG INSULIN (NovoLOG) PER UNIT SC SCH ×4 (07:30→21:00)
[2016-07-17] MEDS ORDERED: predniSONE 10 MG TAB PO SCH (09:00)
[2016-07-17] MEDS: GABAPENTIN 100 MG CAP PO SCH ×3 (09:25→21:09)
[2016-07-17] MEDS: COLCHICINE 0.6 MG TAB PO SCH ×2 (09:26→21:12)
[2016-07-17] MEDS: DIVALPROEX 500MG *ER* TAB PO SCH ×2 (09:26→21:19)
[2016-07-17] MEDS: DABIGATRAN ETEXILATE 75 MG CAP (PRADAXA) PO SCH ×2 (09:26→21:06)
[2016-07-17] MEDS: SPIRONOLACTONE 25 MG TAB PO SCH (09:26)
[2016-07-17] MEDS: MAGNESIUM OXIDE 400 MG TAB (MAG-OX) PO SCH ×2 (09:26→21:10)
[2016-07-17] MEDS: NYSTATIN 100,000 UNITS/GM TOPICAL PWD 15 GM TOP SCH ×2 (09:27→21:13)
[2016-07-17] MEDS: LEVEMIR (INSULIN DETEMIR) 1 UNITS/0.01ML SC SCH (09:27)
[2016-07-17] MEDS: TORSEMIDE 100 MG TAB PO SCH ×2 (12:18→21:07)
--- NOTE | 2016-07-17 13:53 | IPNPDOC ---
Text Note Date of Service The patient was seen on 07/17/16. NOTE Subjective: Patient was seen and examined at the bedside. He noted that his right elbow pain has improved significantly. He denies any other complains. Objective: Vitals (See below) General: Lying in bed, no acute distress, comfortable, AAOx3 HEENT: NC, AT CVS: RRR, +S1S2 Lungs: Fair air entry b/l, -w/r/r Abdomen: Soft, ND, NT, +BSx4 Extremities: +PPx4, - Edema, - Calf tenderness, Right elbow with mild swelling, no erythema/tenderness/discharge/warmth Assessment and plan: 1. Inability to ambulate - likely 2/2 generalized deconditioning with chronic back pain and gait imbalance - Multiple XR taken reveal no acute fractures / dislocations - c/w Physical therapy; current recommendation is home with services - c/w Pain control and Lidoderm patch 2. s/p Right elbow pain - likely 2/2 acute gout exacerbation - Reports significant improvement in pain - Patient denied trauma; reports similar symptoms when he had gout attacks - XR: soft tissue swelling / bursitis, - c/w colchicine and allopurinol - c/w Prednisone (will continue taper) 3. Abdominal wall bruising - CT Abdomen: thickening / swelling of superficial subcutaneous tissue - No symptoms - Will monitor 4. CHF, Diastolic, Compensated - Appears euvolemic; no signs of fluid overload - c/w Torsemide and Spironolactone 5. IDDM2 - c/w ISS and Levemir - Will reduce the dose of Levemir in AM / PM given hypoglycemia in AM HTN - c/w bisoprolol Hypothyroidism - c/w Levothyroxine Seizure disorder - c/w Depakote Atrial fibrillation / Tachy-eliana syndrome - s/p Pacemaker - Currently rate controlled with bisoprolol - c/w Pradaxa COPD - c/w albuterol and Nebulizers PINKY c/w CPAP - allow home CPAP use DVT prophylaxis - c/w full anticoagulation with Pradaxa Disposition: - Planning for discharge on 07/18/2016 Chelsy FERNANDES, I+O Chelsy FERNANDES, I+O Laboratory Tests 07/17/16 05:18 Red Blood Count 4.35, Mean Corpuscular Volume 94.9, Mean Corpuscular Hemoglobin 29.9, Mean Corpuscular Hemoglobin Concent 31.5 L, Red Cell Distribution Width 15.1 H, Calcium Level 8.5 L Vital Signs Date Time Temp Pulse Resp B/P (MAP) Pulse Ox O2 Delivery O2 Flow Rate FiO2 07/17/16 06:00 97.5 60 18 114/60 (78) 94 Room Air I&O- Last 24 Hours up to 6 AM 07/17/16 06:00 Intake Total 1750 ml Output Total 1075 ml Balance 675 ml JOE HDEZ MD July 17, 2016 13:53
[2016-07-17 14:00] VITALS: BP 140/79
[2016-07-17 21:00] VITALS: BP 109/61
[2016-07-17] MEDS ORDERED: LEVEMIR (INSULIN DETEMIR) 1 UNITS/0.01ML SC SCH (21:00)
[2016-07-17] MEDS: BISOPROLOL FUMARATE 10 MG TAB PO SCH (21:00)
[2016-07-17] MEDS: OMEPRAZOLE 20 MG CAP PO SCH (21:07)
[2016-07-17] MEDS: MULTIVITAMINS/MINERALS THERAP 1 TAB PO SCH (21:09)
[2016-07-17] MEDS: ALLOPURINOL 300 MG TAB PO SCH (21:09)
[2016-07-17] MEDS: ASPIRIN 81 MG ENTERIC TAB PO SCH (21:12)
[2016-07-17 22:00] VITALS: BP 109/65
[2016-07-18] MEDS: LEVOTHYROXINE 0.075 MG TAB (75 MCG) PO SCH (05:40)
[2016-07-18] MEDS: SLF 3 ML SYR IV SCH (05:40)
[2016-07-18] MEDS: LEVOTHYROXINE 0.1 MG TAB (100 MCG) PO SCH (05:40)
[2016-07-18 06:00] VITALS: BP 101/68
[2016-07-18 06:31] LABS: MEAN CORPUSCULAR HEMOGLOBIN 29.9 pg (27.0-33.0); MEAN CORPUSCULAR HGB CONC 31.5 g/dl (32.0-36.5); MEAN CORPUSCULAR VOLUME 94.8 fl (80.0-96.0); RED CELL DISTRIBUTION WIDTH 14.8 % (11.5-14.5); WHITE BLOOD COUNT 8.6 K/mm3 (4.0-10.0)
[2016-07-18 06:45] LABS: CALCIUM LEVEL 9.3 MG/DL (8.8-10.2); CREATININE FOR GFR 1.38 MG/DL (0.70-1.30); GLOMERULAR FILTRATION RATE 54.2 (>42); POTASSIUM SERUM 3.8 MEQ/L (3.5-5.1)
[2016-07-18] MEDS: HumaLOG INSULIN (NovoLOG) PER UNIT SC SCH (07:15)
[2016-07-18] MEDS: DABIGATRAN ETEXILATE 75 MG CAP (PRADAXA) PO SCH (08:44)
[2016-07-18] MEDS: MAGNESIUM OXIDE 400 MG TAB (MAG-OX) PO SCH (08:44)
[2016-07-18] MEDS: GABAPENTIN 100 MG CAP PO SCH (08:45)
[2016-07-18] MEDS: COLCHICINE 0.6 MG TAB PO SCH (08:45)
[2016-07-18] MEDS: DIVALPROEX 500MG *ER* TAB PO SCH (08:45)
[2016-07-18] MEDS: NYSTATIN 100,000 UNITS/GM TOPICAL PWD 15 GM TOP SCH (08:46)
[2016-07-18] MEDS ORDERED: LEVEMIR (INSULIN DETEMIR) 1 UNITS/0.01ML SC SCH (09:00)
[2016-07-18] MEDS ORDERED: predniSONE 5 MG TAB PO SCH (09:00)
[2016-07-18] MEDS ORDERED: INSUDET SC (09:45)
[2016-07-18] MEDS ORDERED: PRED5TA PO (09:45)
--- NOTE | 2016-07-18 14:25 | DSES ---
DATE OF ADMISSION: 07/12/2016 DATE OF DISCHARGE: 07/18/2016 ATTENDING PHYSICIANS: Sly Maguire MD, and Rafal Amador MD PRIMARY CARE PHYSICIAN: Dr. Destin Thomas REFERRING PHYSICIAN: None CONSULTING PHYSICIAN: None CONDITION ON DISCHARGE: Stable. FINAL DIAGNOSES: 1. Inability to ambulate, likely secondary to generalized deconditioning with chronic back pain and gait imbalance. 2. Status post right elbow pain, likely secondary to acute gout exacerbation. PROCEDURES: None. HISTORY OF PRESENT ILLNESS: The patient is a 70-year-old male with a past medical history of chronic obstructive pulmonary disease (COPD), obstructive sleep apnea, and diastolic congestive heart failure, atrial fibrillation on Pradaxa, pacemaker due to AV block, hypertension, diabetes, seizure disorder, hypothyroidism, gout, obesity, gastroesophageal reflux disease (GERD), retinal detachment of the right and macular degeneration of the left, chronic venous stasis, tremors, chronic kidney disease III, pulmonary hypertension, hydrocele and varicocele on the left, who presented to the emergency room (ER) after he was sitting on the commode, and he heard a loud pop at the base of his spine mostly on the left side, and he was unable to get up after that point. The patient was brought to the emergency room. He complained of bilateral leg swelling. The patient was noted to be in severe pain at his right elbow. He was admitted to the hospitalist service for severe generalized deconditioning, for multiple medical problems and comorbidities. HOSPITAL COURSE: 1. Inability to ambulate, likely secondary to generalized deconditioning from chronic back pain and gait imbalance. Multiple x-rays taken revealed no acute fractures or dislocations. He was continued with physical therapy and have cleared him for discharge home with continued therapy. Continue with pain control on Lidoderm patch. 2. Status post right elbow pain, likely secondary to acute gout exacerbation. Reports significant improvement in his pain. The patient denied any trauma. Reports similar symptoms when he had a gout attack. X-ray revealed soft tissue swelling/bursitis. Continue with colchicine and allopurinol. The patient was started on prednisone and has been discharged home with a prednisone taper. 3. Abdominal wall bruising. CT abdomen showed thickening and some swelling of superficial subcutaneous tissue. No symptoms currently. Will monitor for now. 4. Congestive heart failure (CHF) diastolic, compensated, appears euvolemic. No signs of fluid overload. Continue with torsemide and spironolactone. 5. Insulin-dependent diabetes mellitus type 2. Continue with insulin sliding scale and Levemir. Levemir dose has been reduced because of hypoglycemic episodes throughout his hospital course. 6. Hypertension. Continue with bisoprolol. 7. Hypothyroidism. Continue with levothyroxine. 8. Seizure disorder. Continue with Depakote. 9. Atrial fibrillation with tachybrady syndrome, status post pacemaker. Currently, being controlled with bisoprolol. Continue with Pradaxa. 10. Chronic obstructive pulmonary disease (COPD). No evidence of exacerbation. Continue with albuterol and nebulizers. 11. Obstructive sleep apnea. Continue with continuous positive airway pressure (CPAP). 12. Deep vein thrombosis (DVT) prophylaxis. Continue with full anticoagulation with Pradaxa. DISCHARGE MEDICATIONS: The patient will be discharged home on the following medication list: - albuterol two puffs inhaled as needed shortness of breath - allopurinol 300 mg by mouth nightly - ascorbic acid 1000 mg by mouth nightly - aspirin 81 mg by mouth nightly - bisoprolol 10 mg by mouth nightly - colchicine 0.6 mg by mouth twice a day - colesevelam 3750 mg by mouth nightly - Pradaxa 150 mg by mouth twice a day - divalproex 500 mg by mouth every morning and 1000 mg by mouth nightly - gabapentin 100 mg by mouth three times a day - glucosamine one capsule by mouth twice a day - levothyroxine 175 mcg by mouth every morning - magnesium oxide 400 mg by mouth twice a day - multivitamin one tablet by mouth nightly - omeprazole 40 mg by mouth nightly - oxycodone/acetaminophen 5/325 one tablet by mouth as needed pain - sitagliptin 100 mg by mouth nightly - spironolactone 25 mg by mouth daily - torsemide 100 mg by mouth twice a day - vitamin D 2000 units by mouth nightly Changed medications include: - Levemir to 30 subcutaneous twice a day New medications prescribed include: - prednisone 5 mg by mouth daily for 3 days DISCHARGE INSTRUCTIONS: The patient has been advised to followup with his primary care provider within the next 7 days. He has been advised to remain compliant with treatment plan and medications and return to the emergency room if he experiences any problems. TIME SPENT ON DISCHARGE: 35 minutes.
== END 2016-07-18 11:21 | disposition home health service (06) | DRG 552 ==
LOC: M ED 12:36 → M ED INP 18:52 → M MSPAV 21:33
PROVIDERS: ADMIT Internal Medicine Nephrology; ATTEND Internal Medicine
DX: M54.9 Dorsalgia, unspecified (principal); I50.32 Chronic diastolic (congestive) heart failure; H33.21 Serous retinal detachment, right eye; I13.0 Hypertensive heart and chronic kidney disease with heart failure and stage 1 through stage 4 chronic kidney disease, or unspecified chronic kidney disease; J44.9 Chronic obstructive pulmonary disease, unspecified; G47.33 Obstructive sleep apnea (adult) (pediatric); I48.91 Unspecified atrial fibrillation; E11.9 Type 2 diabetes mellitus without complications; G40.909 Epilepsy, unspecified, not intractable, without status epilepticus; E03.9 Hypothyroidism, unspecified; M10.9 Gout, unspecified; E66.9 Obesity, unspecified; M25.552 Pain in left hip; K21.9 Gastro-esophageal reflux disease without esophagitis; H54.8 Legal blindness, as defined in USA; H35.30 Unspecified macular degeneration; I87.2 Venous insufficiency (chronic) (peripheral); M10.021 Idiopathic gout, right elbow; N18.3 Chronic kidney disease, stage 3 (moderate); R26.89 Other abnormalities of gait and mobility; M81.0 Age-related osteoporosis without current pathological fracture; R25.1 Tremor, unspecified; I27.2 Other secondary pulmonary hypertension; N43.3 Hydrocele, unspecified; I86.1 Scrotal varices; Z95.0 Presence of cardiac pacemaker; Z88.8 Allergy status to other drugs, medicaments and biological substances; Z87.891 Personal history of nicotine dependence; Z79.82 Long term (current) use of aspirin; Z79.01 Long term (current) use of anticoagulants; Z79.899 Other long term (current) drug therapy; Z79.4 Long term (current) use of insulin; Z79.84 Long term (current) use of oral hypoglycemic drugs

== ENCOUNTER 2016-09-13 12:23 | Inpatient (IN) | payer MEDICARE, BC, OTHER, MEDICAID ==
[~2016-09-13] VITALS: Ht 188 cm; Wt 128.0 kg
[~2016-09-13 12:23] MED LIST changes: +ALBU83IN INH; -AVEL1TAB PO; +AVEL1TAB3 PO; +COLE625TAB PO; +DIPH2.5T14 PO; +GABA-279 PO; +KEFL500C17 PO; -KEFL500C7 PO; +MAGN400T5 PO; +OXYC1TAB23 PO; +PRED5TA PO; -PROA1AER INH; +PROAAER10 INH; -VALA1TAB PO; +VALA1TAB2 PO; -WELC625T PO
[2016-09-13] MEDS ORDERED: MORPHINE 2 MG/ML 1ML SYRINGE IV ONE (14:15)
[2016-09-13 14:35] LABS: BASO % 0.2 % (0.0-1.0); EOS # 0.4 K/mm3 (0.0-0.50); EOS % 5.9 % (0.0-3.0); LARGE UNSTAINED CELL # 0.1 K/mm3 (0.0-0.4); LARGE UNSTAINED CELL % 1.9 % (0.0-4.0); LYMPH # 0.6 K/mm3 (1.5-4.5); LYMPH % 7.6 % (24.0-44.0); MEAN CORPUSCULAR HEMOGLOBIN 29.9 pg (27.0-33.0); MEAN CORPUSCULAR HGB CONC 31.6 g/dl (32.0-36.5); MEAN CORPUSCULAR VOLUME 94.6 fl (80.0-96.0); MONO # 0.6 K/mm3 (0.0-0.8); MONO % 9.1 % (0.0-5.0); NEUTROPHILS # 4.7 K/mm3 (1.8-7.7); NEUTROPHILS % 75.2 % (36.0-66.0); PLATELET COUNT, AUTOMATED 123 k/mm3 (150-450); RED CELL DISTRIBUTION WIDTH 15.7 % (11.5-14.5); WHITE BLOOD COUNT 6.2 K/mm3 (4.0-10.0)
[2016-09-13 14:51] LABS: ANION GAP 6 MEQ/L (8-16); BLOOD UREA NITROGEN 19 MG/DL (7-18); CARBON DIOXIDE LEVEL 27 MEQ/L (21-32); CHLORIDE LEVEL 111 MEQ/L (98-107); CREATININE FOR GFR 1.09 MG/DL (0.70-1.30); GLOMERULAR FILTRATION RATE > 60.0 (>42); GLUCOSE, FASTING 138 MG/DL (83-110); POTASSIUM SERUM 4.3 MEQ/L (3.5-5.1); SODIUM LEVEL 144 MEQ/L (136-145)
--- NOTE | 2016-09-13 15:02 | REP ---
Deep vein duplex ultrasound of the right lower extremity: The deep veins demonstrate normal compression, normal Doppler color flow and normal Doppler waveforms with respiration augmentation at multiple levels from the popliteal vein to the common femoral vein. Impression: There is no deep vein thrombus. Signed by Jason Ceron MD 09/13/2016 02:53 P
[2016-09-13] MEDS ORDERED: DEXTROSE 50% 50 ML SYRINGE IV PRN (16:00)
[2016-09-13] MEDS ORDERED: GLUCOSE 4 GM CHEW TABLET PO PRN (16:00)
[2016-09-13] MEDS ORDERED: GLUCAGON FOR INJ 1 MG VIAL (J1610) SC PRN (16:00)
[2016-09-13] MEDS ORDERED: GABA600T PO (16:05)
[2016-09-13] MEDS ORDERED: NYST1POW9 TOP (16:05)
[2016-09-13] MEDS ORDERED: ISOS5TA PO (16:05)
[2016-09-13] MEDS ORDERED: INSUDET SC (16:08)
--- NOTE | 2016-09-13 16:11 | HPEPDOC ---
General Date of Admission 09/13/16 Chief Complaint The patient is a 71-year-old male admitted with a reason for visit of leg pain. History of Present Illness Patient is a 71 year old male with a PMHx of COPD, PINKY, Diastolic CHF , A. fib (on Pradaxa), AV block (s/p PM), HTN, DM2, Seizure disorder, Hypothyroidism, Gout, Obesity, GERD, Retinal detachment of right / Macular degeneration of Left, Chronic venous stasis with stasis dermatitis, Tremors, CKD3, Pulmonary HTN, Hydrocele and varicocele on Left. Patient presented to the ER with complaints of right leg pain, warmth and redness. He notes that it has occurred for the last 2 weeks and was worsening. He denies any trauma or bug bites to the leg. He notes that he has a history of gout that he keeps attributing this too. Patient appears to be a poor historian and has very limited information about his health. Majority of information has been collected from the medical record. Patient lives alone and has no caregivers. Patient does not appear to fully oriented and could not provide much detail. Home Medications Scheduled (Glucosamine 1500 Complex) 1 Cap Cap, 1 CAP PO BID, (Reported) Allopurinol (Zyloprim) 300 Mg Tab, 300 MG PO QHS, (Reported) Ascorbic Acid (Vitamin C) 1,000 Mg Tab, 1,000 MG PO QHS, (Reported) Aspirin (Aspirin 81) 81 Mg Tab, 81 MG PO QHS, (Reported) Bisoprolol Fumarate (Bisoprolol Fumarate) 10 Mg Tab, 10 MG PO QHS, (Reported) Colchicine (Colchicine) 0.6 Mg Tab, 0.6 MG PO BID, (Reported) Colesevelam Hydrochloride (Welchol) 625 Mg Tab, 3,750 MG PO QHS, (Reported) Dabigatran Etexilate (Pradaxa) 150 Mg Cap, 150 MG PO BID, (Reported) Divalproex Sodium (Depakote ER) 500 Mg Tab, 500 MG PO QAM, (Reported) Divalproex Sodium (Depakote ER) 500 Mg Tab, 1,000 MG PO QHS, (Reported) Gabapentin (Gabapentin) 600 Mg Tab, 600 MG PO BID, (Reported) Insulin Detemir (Levemir) Unknown Strength Susp, Unknown Dose SC BID, (Reported) LAST DOSE FILLED AT PHARMACY WAS 82 UNITS BID, CANNOT VERIFY WITH PT HOW MANY UNITS HE IS INJECTING. D/C'D FROM HOSPITAL ON 30 UNITS BID Isosorbide Dinitrate (Isosorbide Dinitrate) 5 Mg Tab, 5 MG PO DAILY, (Reported) Levothyroxine Sodium (Synthroid) 175 Mcg Tab, 175 MCG PO QAM, (Reported) Magnesium Oxide (Magnesium Oxide 400) 400 Mg Tab, 400 MG PO BID, (Reported) Multivitamins (Centrum Silver) 1 Tab Tab, 1 TAB PO QHS, (Reported) Nystatin (Nystatin Powder) 100,000 Unit/Gm Pow, 1 DOSE TOP BID, (Reported) APPLIES TO GROIN Omeprazole (Omeprazole) 40 Mg Cap, 40 MG PO QHS, (Reported) Sitagliptin Phosphate (Januvia) 100 Mg Tab, 100 MG PO QHS, (Reported) Spironolactone (Spironolactone) 25 Mg Tab, 25 MG PO DAILY, (Reported) Torsemide (Torsemide) 100 Mg Tab, 100 MG PO BID, (Reported) Vitamin D (Vitamin D) 2,000 Unit Cap, 2,000 UNIT PO QHS, (Reported) Scheduled PRN (Desoximetasone) 0.25 % Cre, 0.25 % TOP PRN PRN for CRACKED SKIN, (Reported) APPLIED TO FEET AND LEGS Albuterol Sulfate (Proair Hfa) 108 Mcg/Act Aer, 2 PUFFS INH for SHORTNESS OF BREATH, (Reported) Albuterol Sulfate (Albuterol Sulfate) 2.5 Mg/3 Ml Nebu, 2.5 MG INH Q4H PRN for SHORTNESS OF BREATH, (Reported) Diphenoxylate/Atropine (Diphenoxylate/Atropine 2.5-0.025 mg) 1 Ea Tab, 1 EA PO for DIARRHEA, (Reported) Allergies Coded Allergies: Valsartan (Unverified Allergy, Unknown, 05/17/14) Atorvastatin (Verified Adverse Reaction, Intermediate, UPSET STOMACH, 06/11) Quinolones (Verified Adverse Reaction, Intermediate, UPSET STOMACH, ) Past Medical History Medical History COPD, PINKY, Diastolic CHF, A. fib (on Pradaxa), AV block (s/p PM), HTN, DM2, Seizure disorder, Hypothyroidism, Gout, Obesity, GERD, Retinal detachment of right / Macular degeneration of Left, Chronic venous stasis with stasis dermatitis, Tremors, CKD3, Pulmonary HTN, Hydrocele and varicocele on Left. Surgical History Pacemaker placement Bilateral knee surgery Left leg fracture with hardware Testicular cancer removal Cholecystectomy Family History - Non-contributory Social History - Denies the use of alcohol or illicit drugs; Quit smoking - Denies recent travel or sick contacts - Lives alone Review of Symptoms Other systems Unable to obtain given confusion Vital Signs - Vitals: BP 116/65, HR 56, RR 16, Sat 93%RA, Temp 98.4F - General: Lying in bed, No acute distress, Difficulty expressing thoughts, AAOx1 (Person only) - HEENT: NC, AT - CVS: Regular bradycardic, +S1S2, - Lungs: Fair air entry bilaterally, No appreciable wheezing / rales / rhonchi - Abdomen: Soft, Non-distended, Non-tender, + Bowel sounds x 4 - Extremities: 1+ pitting edema bilaterally - Neuro: No focal motor or sensory deficit - Skin: Right leg with erythema, tenderness and warmth; no skin breaks, fungal infection of nails noted Laboratory Data Labs 24H Laboratory Tests 2 09/13/16 14:06: 09/13/16 14:15: White Blood Count 6.2, Red Blood Count 4.66, Hemoglobin 14.0, Hematocrit 44.1, Mean Corpuscular Volume 94.6, Mean Corpuscular Hemoglobin 29.9, Mean Corpuscular Hemoglobin Concent 31.6L, Red Cell Distribution Width 15.7H, Platelet Count 123L, Neutrophils (%) (Auto) 75.2H, Lymphocytes (%) (Auto) 7.6L, Monocytes (%) (Auto) 9.1H, Eosinophils (%) (Auto) 5.9H, Basophils (%) (Auto) 0.2 , Neutrophils # (Auto) 4.7, Lymphocytes # (Auto) 0.6L, Monocytes # (Auto) 0.6, Eosinophils # (Auto) 0.4, Basophils # (Auto) 0.0, Large Unclassified Cells % 1.9 , Large Unclassified Cells # 0.1, Anion Gap 6L, Glomerular Filtration Rate > 60.0, Uric Acid 6.8, Blood Urea Nitrogen 19H, Creatinine 1.09, Sodium Level 144 , Potassium Level 4.3, Chloride Level 111H, Carbon Dioxide Level 27, Calcium Level 9.0 CBC/BMP Laboratory Tests 09/13/16 14:15 Red Blood Count 4.66, Mean Corpuscular Volume 94.6, Mean Corpuscular Hemoglobin 29.9, Mean Corpuscular Hemoglobin Concent 31.6 L, Red Cell Distribution Width 15.7 H, Neutrophils (%) (Auto) 75.2 H, Lymphocytes (%) (Auto) 7.6 L, Monocytes ( %) (Auto) 9.1 H, Eosinophils (%) (Auto) 5.9 H, Basophils (%) (Auto) 0.2, Neutrophils # (Auto) 4.7, Lymphocytes # (Auto) 0.6 L, Monocytes # (Auto) 0.6, Eosinophils # (Auto) 0.4, Basophils # (Auto) 0.0, Calcium Level 9.0 Microbiology Microbiology 09/13/16 Blood Culture, Received Pending 09/13/16 Blood Culture, Received Pending Plan / VTE VTE Prophylaxis Ordered?: Yes Plan Plan Acute metabolic encephalopathy possibly 2/2 infection 2/2 cellulitis; will evaluate for other source of infection; possibly 2/2 medications (morphine) - Patient is only oriented to person - Physical does not reveal any focal deficits - Will get Urinalysis, Urine cultures, Blood cultures, Portable CXR - Will check lactic acid, ammonia level, CMP, magnesium - Will check CT head - Will c/w Neurological checks q4 hours - Will keep on PCU for monitoring Cellulitis of right lower extremity - Reports leg pain for 2 weeks - Notes that he has not had any trauma or bug bites - Duplex US or R LE negative for DVT - f/u Blood cultures - r/o other causes of infection - Will start Ceftaroline COPD - c/w inhaled therapy (will start duoneb while inpatient) - c/w PINKY - not on CPAP Diastolic CHF - c/w bisoprolol - Will hold torsemide and spironolactone at this time A. fib - c/w rate control with bisoprolol - c/w anticoagulation with Pradaxa AV block (s/p PM) HTN - c/w bisoprolol - will hold torsemide and spironolactone DM2 - c/w levemir (will reduce to 20 BID from 30 BID) - will start ISS Gout - uric acid level normal at this time - c/w allopurinol, cholchicine and prednisone Obesity Chronic venous stasis with stasis dermatitis Tremors / Seizure history - c/w Divalproex CKD3 - Cr appears to be better than baseline - Baseline of 1.2-1.4 Hypothyroidism - c/w levothyroxine Pulmonary HTN Testicular CA GERD - c/w omeprazole DVT prophylaxis - on full anticoagulation with JOE HDEZ MD Sep 13, 2016 16:11
[2016-09-13] MEDS ORDERED: IPRATROPIUM 0.5MG/ALBUTEROL 2.5MG INH SOL UD 3ML (DUONEB)(J7620) NEB PRN (16:15)
[2016-09-13 16:25] LABS: ALBUMIN 3.2 GM/DL (3.2-5.2); ALBUMIN/GLOBULIN RATIO 1.23 (1.00-1.93); BILIRUBIN,TOTAL 0.9 MG/DL (0.2-1.0); FREE T4 1.27 NG/DL (0.76-1.46); TOTAL PROTEIN 5.8 GM/DL (6.4-8.2)
[2016-09-13 16:27] LABS: ALKALINE PHOSPHATASE 160 U/L (45-117); ALT/SGPT 16 U/L (12-78); AST/SGOT 39 U/L (15-37); MAGNESIUM LEVEL 2.3 MG/DL (1.8-2.4)
--- NOTE | 2016-09-13 16:29 | REP ---
CT HEAD WITHOUT CONTRAST: HISTORY: Confusion. COMPARISON: 03/01/2016. Areas of decreased attentuation are present in the periventricular and subcortical white matter. This represents small vessel ischemic disease. There is no intraparenchymal hemorrhage, mass, or midline shift. The ventricular system and cortical sulci as well as subarachnoid space in the posterior fossa are dilated consistent with moderate volume loss. There is no extracerebral collection. The visualized sinuses are clear. IMPRESSION:1. Small vessel ischemic disease. 2. Moderate volume loss. Signed by Brayden Anderson MD 09/13/2016 04:44 P
[2016-09-13] MEDS: NS 1,000 ML IV SCH (16:32)
[2016-09-13] MEDS: CEFTAROLINE FOSAMIL 600 MG in D5W MINI-BAG PLUS 50 ML IV SCH (16:32)
--- NOTE | 2016-09-13 17:07 | REP ---
PORTABLE CHEST: AP portable view of the chest is performed. COMPARISON: 07/17/2015 as well as other prior exams. There is somewhat poor ventilation. There is chronic bibasilar fibroatelectatic change. There is chronic thickening in the right minor fissure. There is cardiomegaly with pulmonary venous hypertension. The mediastinal silhouette appears unchanged. Left single lead pacemaker is noted. IMPRESSION: Cardiomegaly with chronic lung findings, but no new infiltrate. Signed by Jason Andino MD 09/13/2016 05:12 P
[2016-09-13] MEDS: HumaLOG INSULIN (NovoLOG) PER UNIT SC SCH ×2 (17:54→21:00)
[2016-09-13] MEDS: IPRATROPIUM 0.5MG/ALBUTEROL 2.5MG INH SOL UD 3ML (DUONEB)(J7620) NEB SCH (20:13)
[2016-09-13] MEDS: BISOPROLOL FUMARATE 10 MG TAB PO SCH (21:00)
[2016-09-13 22:10] VITALS: BP 96/62
[2016-09-13] MEDS: MULTIVITAMINS/MINERALS THERAP 1 TAB PO SCH (23:55)
[2016-09-13] MEDS: DIVALPROEX 500MG *ER* TAB PO SCH (23:56)
[2016-09-13] MEDS: ALLOPURINOL 300 MG TAB PO SCH (23:56)
[2016-09-13] MEDS: GABAPENTIN 300 MG CAP PO SCH (23:56)
[2016-09-13] MEDS: ASCORBIC ACID 500 MG TAB PO SCH (23:56)
[2016-09-13] MEDS: MAGNESIUM OXIDE 400 MG TAB (MAG-OX) PO SCH (23:56)
[2016-09-13] MEDS: OMEPRAZOLE 20 MG CAP PO SCH (23:57)
[2016-09-13] MEDS: LEVEMIR (INSULIN DETEMIR) 1 UNITS/0.01ML SC SCH (23:57)
[2016-09-13] MEDS: ASPIRIN 81 MG ENTERIC TAB PO SCH (23:57)
[2016-09-13] MEDS: VITAMIN D 1,000 INTERNATIONAL UNITS TABLET PO SCH (23:57)
[2016-09-14] VITALS (7 sets, daily range): BP systolic 97–126; BP diastolic 56–65
[2016-09-14] MEDS: NYSTATIN 100,000 UNITS/GM TOPICAL PWD 15 GM TOP SCH ×3 (00:01→23:12)
[2016-09-14] MEDS: DABIGATRAN ETEXILATE 75 MG CAP (PRADAXA) PO SCH ×3 (00:02→22:48)
[2016-09-14] MEDS: COLESEVELAM 625 MG TAB (WELCHOL) PO SCH ×2 (00:02→22:46)
[2016-09-14] MEDS: ISOSORBIDE DIN. (ISORDIL) 5 MG TAB PO SCH (00:04)
[2016-09-14] MEDS: COLCHICINE 0.6 MG TAB PO SCH ×3 (00:06→22:48)
[2016-09-14] MEDS: IPRATROPIUM 0.5MG/ALBUTEROL 2.5MG INH SOL UD 3ML (DUONEB)(J7620) NEB SCH ×4 (02:00→19:52)
[2016-09-14] MEDS: CEFTAROLINE FOSAMIL 600 MG in D5W MINI-BAG PLUS 50 ML IV SCH ×2 (04:32→17:28)
[2016-09-14] MEDS: ACETAMINOPHEN TAB 650MG DOSE (2X325MG) PO PRN (04:42)
[2016-09-14 05:35] LABS: BASO % 0.4 % (0.0-1.0); EOS # 0.1 K/mm3 (0.0-0.50); EOS % 1.1 % (0.0-3.0); LARGE UNSTAINED CELL # 0.2 K/mm3 (0.0-0.4); LARGE UNSTAINED CELL % 3.4 % (0.0-4.0); LYMPH % 13.3 % (24.0-44.0); MEAN CORPUSCULAR HEMOGLOBIN 30.4 pg (27.0-33.0); MEAN CORPUSCULAR HGB CONC 32.2 g/dl (32.0-36.5); MEAN CORPUSCULAR VOLUME 94.3 fl (80.0-96.0); MONO # 0.9 K/mm3 (0.0-0.8); MONO % 12.6 % (0.0-5.0); NEUTROPHILS % 69.2 % (36.0-66.0); PLATELET COUNT, AUTOMATED 119 k/mm3 (150-450); RED CELL DISTRIBUTION WIDTH 15.7 % (11.5-14.5); WHITE BLOOD COUNT 7.2 K/mm3 (4.0-10.0)
[2016-09-14] MEDS: LEVOTHYROXINE 100MCG TABLET (0.1MG) PO SCH (05:51)
[2016-09-14] MEDS: LEVOTHYROXINE 75MCG TABLET (0.075MG) PO SCH (05:51)
[2016-09-14 05:55] LABS: ALBUMIN 2.6 GM/DL (3.2-5.2); ALBUMIN/GLOBULIN RATIO 1.04 (1.00-1.93); ALKALINE PHOSPHATASE 117 U/L (45-117); ALT/SGPT 12 U/L (12-78); ANION GAP 7 MEQ/L (8-16); AST/SGOT 12 U/L (15-37); BILIRUBIN,TOTAL 1.1 MG/DL (0.2-1.0); BLOOD UREA NITROGEN 23 MG/DL (7-18); CALCIUM LEVEL 8.5 MG/DL (8.8-10.2); CARBON DIOXIDE LEVEL 23 MEQ/L (21-32); CHLORIDE LEVEL 110 MEQ/L (98-107); CREATININE FOR GFR 1.09 MG/DL (0.70-1.30); GLOMERULAR FILTRATION RATE > 60.0 (>42); GLUCOSE, FASTING 142 MG/DL (83-110); MAGNESIUM LEVEL 2.3 MG/DL (1.8-2.4); POTASSIUM SERUM 4.4 MEQ/L (3.5-5.1); SODIUM LEVEL 140 MEQ/L (136-145); TOTAL PROTEIN 5.1 GM/DL (6.4-8.2)
[2016-09-14] MEDS: NS 1,000 ML IV SCH (08:38)
[2016-09-14] MEDS: GABAPENTIN 300 MG CAP PO SCH ×2 (09:06→22:49)
[2016-09-14] MEDS: LEVEMIR (INSULIN DETEMIR) 1 UNITS/0.01ML SC SCH ×2 (09:07→23:06)
[2016-09-14] MEDS: MAGNESIUM OXIDE 400 MG TAB (MAG-OX) PO SCH ×2 (09:07→22:56)
[2016-09-14] MEDS: DIVALPROEX 500MG *ER* TAB PO SCH ×2 (09:07→22:51)
[2016-09-14] MEDS: HumaLOG INSULIN (NovoLOG) PER UNIT SC SCH ×4 (09:08→20:55)
[2016-09-14] MEDS: CLOTRIMAZOLE 1% TOPICAL CREAM 30GM TOP SCH ×2 (17:28→23:09)
[2016-09-14] MEDS: OMEPRAZOLE 20 MG CAP PO SCH (22:47)
[2016-09-14] MEDS: MULTIVITAMINS/MINERALS THERAP 1 TAB PO SCH (22:48)
[2016-09-14] MEDS: ASCORBIC ACID 500 MG TAB PO SCH (22:49)
[2016-09-14] MEDS: ALLOPURINOL 300 MG TAB PO SCH (22:49)
[2016-09-14] MEDS: BISOPROLOL FUMARATE 10 MG TAB PO SCH (22:49)
[2016-09-14] MEDS: ASPIRIN 81 MG ENTERIC TAB PO SCH (22:56)
[2016-09-14] MEDS: VITAMIN D 1,000 INTERNATIONAL UNITS TABLET PO SCH (22:57)
[2016-09-15] MEDS: NS 1,000 ML IV SCH (01:17)
[2016-09-15] MEDS: IPRATROPIUM 0.5MG/ALBUTEROL 2.5MG INH SOL UD 3ML (DUONEB)(J7620) NEB SCH ×4 (01:56→19:49)
[2016-09-15 03:34] VITALS: BP 109/63
[2016-09-15] MEDS: CEFTAROLINE FOSAMIL 600 MG in D5W MINI-BAG PLUS 50 ML IV SCH ×2 (03:39→17:03)
[2016-09-15] MEDS: LEVOTHYROXINE 100MCG TABLET (0.1MG) PO SCH (06:21)
[2016-09-15] MEDS: LEVOTHYROXINE 75MCG TABLET (0.075MG) PO SCH (06:21)
[2016-09-15 06:45] LABS: BASO % 0.4 % (0.0-1.0); EOS # 0.1 K/mm3 (0.0-0.50); EOS % 1.9 % (0.0-3.0); LARGE UNSTAINED CELL # 0.2 K/mm3 (0.0-0.4); LARGE UNSTAINED CELL % 4.1 % (0.0-4.0); LYMPH # 0.8 K/mm3 (1.5-4.5); LYMPH % 20.1 % (24.0-44.0); MEAN CORPUSCULAR HEMOGLOBIN 30.2 pg (27.0-33.0); MEAN CORPUSCULAR HGB CONC 31.8 g/dl (32.0-36.5); MEAN CORPUSCULAR VOLUME 94.8 fl (80.0-96.0); MONO # 0.6 K/mm3 (0.0-0.8); MONO % 13.3 % (0.0-5.0); NEUTROPHILS # 2.5 K/mm3 (1.8-7.7); NEUTROPHILS % 60.2 % (36.0-66.0); RED CELL DISTRIBUTION WIDTH 15.6 % (11.5-14.5); WHITE BLOOD COUNT 4.2 K/mm3 (4.0-10.0)
[2016-09-15 07:04] LABS: ALBUMIN 2.4 GM/DL (3.2-5.2); ALBUMIN/GLOBULIN RATIO 0.89 (1.00-1.93); ALKALINE PHOSPHATASE 110 U/L (45-117); ALT/SGPT 10 U/L (12-78); ANION GAP 6 MEQ/L (8-16); AST/SGOT 8 U/L (15-37); BILIRUBIN,TOTAL 0.8 MG/DL (0.2-1.0); BLOOD UREA NITROGEN 24 MG/DL (7-18); CALCIUM LEVEL 8.8 MG/DL (8.8-10.2); CARBON DIOXIDE LEVEL 23 MEQ/L (21-32); CHLORIDE LEVEL 111 MEQ/L (98-107); CREATININE FOR GFR 1.02 MG/DL (0.70-1.30); GLOMERULAR FILTRATION RATE > 60.0 (>42); GLUCOSE, FASTING 105 MG/DL (83-110); MAGNESIUM LEVEL 2.5 MG/DL (1.8-2.4); POTASSIUM SERUM 4.2 MEQ/L (3.5-5.1); SODIUM LEVEL 140 MEQ/L (136-145); TOTAL PROTEIN 5.1 GM/DL (6.4-8.2)
[2016-09-15 07:23] LABS: PLATELET COUNT, AUTOMATED 99 k/mm3 (150-450)
[2016-09-15] MEDS: HumaLOG INSULIN (NovoLOG) PER UNIT SC SCH ×4 (07:40→19:44)
[2016-09-15 08:00] VITALS: BP 111/64
[2016-09-15] MEDS: PREVNAR 13 VACCINE SYRINGE (CPT CODE:90670) IM ONE ×2 (09:00→09:10)
[2016-09-15] MEDS: DABIGATRAN ETEXILATE 75 MG CAP (PRADAXA) PO SCH ×2 (09:01→20:52)
[2016-09-15] MEDS: DIVALPROEX 500MG *ER* TAB PO SCH ×2 (09:02→20:55)
[2016-09-15] MEDS: GABAPENTIN 300 MG CAP PO SCH ×2 (09:02→20:56)
[2016-09-15] MEDS: MAGNESIUM OXIDE 400 MG TAB (MAG-OX) PO SCH ×2 (09:02→20:57)
[2016-09-15] MEDS: COLCHICINE 0.6 MG TAB PO SCH ×2 (09:02→20:53)
[2016-09-15] MEDS: ISOSORBIDE DIN. (ISORDIL) 5 MG TAB PO SCH (09:03)
[2016-09-15] MEDS: LEVEMIR (INSULIN DETEMIR) 1 UNITS/0.01ML SC SCH ×2 (09:06→20:51)
[2016-09-15] MEDS: CLOTRIMAZOLE 1% TOPICAL CREAM 30GM TOP SCH ×4 (09:18→20:59)
[2016-09-15] MEDS: NYSTATIN 100,000 UNITS/GM TOPICAL PWD 15 GM TOP SCH ×2 (09:19→20:59)
[2016-09-15] MEDS ORDERED: PNEUMOCOCCAL VACCINE 0.5ML SYRINGE(90732) PNEUMOVAX 23 IM ONE (10:30)
[2016-09-15] MEDS: SPIRONOLACTONE 25 MG TAB PO SCH (11:45)
[2016-09-15] MEDS: TORSEMIDE 100 MG TAB PO SCH ×2 (11:45→17:01)
[2016-09-15 13:05] VITALS: BP 121/69
--- NOTE | 2016-09-15 16:00 | IPN ---
DATE: 09/14/2016 SUBJECTIVE: The patient is feeling much better today. He was confused last night, but mind is clearer today. He has no complaints of chest pain, no shortness of breath. He still has lower extremity tenderness, worse on the right than the left. OBJECTIVE: VITAL SIGNS: Temperature is 98, pulse 60, respiratory rate 20, blood pressure 126/62, 94% on four liters. GENERAL: He is awake, appropriately interactive, pleasantly conversant. LUNGS: Breathing it symmetrical, diminished, rested. HEART: Distant-sounding normal S1, S2. He has lower extremity edema. There is erythema, warmth and tenderness to both lower extremities, worse on the right than the left. LABORATORY DATA: White cell count is 7.2, hemoglobin 12.5, and platelets of 119. BUN 23, creatinine 1.09. ASSESSMENT: This is a 71-year-old with metabolic encephalopathy which is resolving in the setting of right lower extremity cellulitis. PLAN: 1. Infectious disease. The patient is continued on appropriate antibiotics. Mental status improved. Will continue to monitor clinically. Await culture results and monitor for worsening. 2. The patient has chronic obstructive pulmonary disease (COPD). 3. The patient has obstructive sleep apnea (PINKY) not on continuous positive airway pressure (CPAP). 4. The patient has diastolic congestive heart failure. His diuretics are currently on hold. 5. The patient has atrial fibrillation. He is rate controlled and is on Pradaxa. 6. The patient has diabetes on insulin at home. 7. The patient has gout. 8. The patient has history of seizures, on valproic acid. 9. The patient has chronic kidney disease stage III. 10. The patient has pulmonary hypertension. 11. The patient has deep venous thrombosis (DVT) prophylaxis and is fully anticoagulated. [facility]
[2016-09-15 18:00] VITALS: BP 122/74
[2016-09-15 19:40] VITALS: BP 119/65
[2016-09-15 19:43] VITALS: BP 119/65
[2016-09-15] MEDS: COLESEVELAM 625 MG TAB (WELCHOL) PO SCH (20:52)
[2016-09-15] MEDS: ASCORBIC ACID 500 MG TAB PO SCH (20:53)
[2016-09-15] MEDS: BISOPROLOL FUMARATE 10 MG TAB PO SCH (20:53)
[2016-09-15] MEDS: ACETAMINOPHEN TAB 650MG DOSE (2X325MG) PO PRN (20:54)
[2016-09-15] MEDS: ASPIRIN 81 MG ENTERIC TAB PO SCH (20:55)
[2016-09-15] MEDS: OMEPRAZOLE 20 MG CAP PO SCH (20:56)
[2016-09-15] MEDS: MULTIVITAMINS/MINERALS THERAP 1 TAB PO SCH (20:57)
[2016-09-15] MEDS: ALLOPURINOL 300 MG TAB PO SCH (20:57)
[2016-09-15] MEDS: VITAMIN D 1,000 INTERNATIONAL UNITS TABLET PO SCH (20:57)
[2016-09-16] VITALS (7 sets, daily range): BP systolic 96–118; BP diastolic 55–64
[2016-09-16] MEDS: IPRATROPIUM 0.5MG/ALBUTEROL 2.5MG INH SOL UD 3ML (DUONEB)(J7620) NEB SCH ×4 (02:04→19:47)
[2016-09-16] MEDS: CEFTAROLINE FOSAMIL 600 MG in D5W MINI-BAG PLUS 50 ML IV SCH ×2 (03:58→16:48)
[2016-09-16] MEDS: LEVOTHYROXINE 75MCG TABLET (0.075MG) PO SCH (06:20)
[2016-09-16] MEDS: LEVOTHYROXINE 100MCG TABLET (0.1MG) PO SCH (06:20)
[2016-09-16 06:22] LABS: BASO % 0.8 % (0.0-1.0); EOS # 0.1 K/mm3 (0.0-0.50); EOS % 2.6 % (0.0-3.0); LARGE UNSTAINED CELL # 0.2 K/mm3 (0.0-0.4); LARGE UNSTAINED CELL % 4.3 % (0.0-4.0); LYMPH # 0.8 K/mm3 (1.5-4.5); MEAN CORPUSCULAR HGB CONC 31.7 g/dl (32.0-36.5); MEAN CORPUSCULAR VOLUME 94.4 fl (80.0-96.0); MONO # 0.6 K/mm3 (0.0-0.8); MONO % 12.8 % (0.0-5.0); NEUTROPHILS # 2.8 K/mm3 (1.8-7.7); NEUTROPHILS % 62.4 % (36.0-66.0); PLATELET COUNT, AUTOMATED 101 k/mm3 (150-450); RED CELL DISTRIBUTION WIDTH 15.4 % (11.5-14.5); WHITE BLOOD COUNT 4.4 K/mm3 (4.0-10.0)
[2016-09-16 06:41] LABS: ALBUMIN 2.6 GM/DL (3.2-5.2); ALBUMIN/GLOBULIN RATIO 0.96 (1.00-1.93); CALCIUM LEVEL 8.8 MG/DL (8.8-10.2); CREATININE FOR GFR 1.28 MG/DL (0.70-1.30); MAGNESIUM LEVEL 2.3 MG/DL (1.8-2.4); POTASSIUM SERUM 4.3 MEQ/L (3.5-5.1); TOTAL PROTEIN 5.3 GM/DL (6.4-8.2)
[2016-09-16] MEDS: GABAPENTIN 300 MG CAP PO SCH ×2 (08:20→21:16)
[2016-09-16] MEDS: TORSEMIDE 100 MG TAB PO SCH ×2 (08:21→16:50)
[2016-09-16] MEDS: ISOSORBIDE DIN. (ISORDIL) 5 MG TAB PO SCH (08:21)
[2016-09-16] MEDS: COLCHICINE 0.6 MG TAB PO SCH ×2 (08:21→21:15)
[2016-09-16] MEDS: DIVALPROEX 500MG *ER* TAB PO SCH ×2 (08:22→21:17)
[2016-09-16] MEDS: MAGNESIUM OXIDE 400 MG TAB (MAG-OX) PO SCH ×2 (08:22→21:16)
[2016-09-16] MEDS: DABIGATRAN ETEXILATE 75 MG CAP (PRADAXA) PO SCH ×2 (08:22→21:15)
[2016-09-16] MEDS: SPIRONOLACTONE 25 MG TAB PO SCH (08:22)
[2016-09-16] MEDS: HumaLOG INSULIN (NovoLOG) PER UNIT SC SCH ×4 (08:23→19:43)
[2016-09-16] MEDS: LEVEMIR (INSULIN DETEMIR) 1 UNITS/0.01ML SC SCH ×2 (08:25→21:14)
[2016-09-16] MEDS: CLOTRIMAZOLE 1% TOPICAL CREAM 30GM TOP SCH ×4 (08:26→21:18)
[2016-09-16] MEDS: NYSTATIN 100,000 UNITS/GM TOPICAL PWD 15 GM TOP SCH ×2 (08:27→21:18)
--- NOTE | 2016-09-16 08:58 | IPN ---
DATE: 09/15/2016 Mr. Bassett thinks his leg is feeling a little better today. He has no complaints of chest pain or shortness of breath. He is tolerating a diet. Temperature 99.4, pulse 60, respiratory rate 22, blood pressure 111/64, 91% on 4 liters. Ins and outs notable for positive fluid balance of 1020, 1 bowel movement thus far today. Body mass index 32.7. He is awake, appropriately interactive, pleasantly conversant, and answering questions appropriately. Mucous membranes are moist. Neck is supple. Breathing is symmetric. Regular rate and rhythm. Rate is controlled. Abdomen soft, doughy, nontender. Erythema of the right lower extremity has decreased. It is tender, but not as tender as yesterday. The area still swollen has retreated from the drawn lines. ASSESSMENT: This is a 71-year-old with right lower extremity cellulitis which is showing improvement. He had metabolic encephalopathy at the time of presentation which has resolved. PLAN: 1. Infectious disease. The patient is being continued on broad spectrum antibiotics for cellulitis. The source of his infection is likely fungal finding on his feet. He was started on antifungal cream. Blood cultures pending. 2. The patient has obstructive sleep apnea (PINKY), not on CPAP. 3. The patient has metabolic encephalopathy which has resolved. 4. The patient has history of diastolic congestive heart failure which is compensated. Can restart his torsemide and spironolactone soon. 5. The patient has diabetes which is reasonably well controlled for the current setting. [facility]
[2016-09-16] MEDS: BISOPROLOL FUMARATE 10 MG TAB PO SCH (21:15)
[2016-09-16] MEDS: ASPIRIN 81 MG ENTERIC TAB PO SCH (21:15)
[2016-09-16] MEDS: COLESEVELAM 625 MG TAB (WELCHOL) PO SCH (21:15)
[2016-09-16] MEDS: ASCORBIC ACID 500 MG TAB PO SCH (21:16)
[2016-09-16] MEDS: MULTIVITAMINS/MINERALS THERAP 1 TAB PO SCH (21:16)
[2016-09-16] MEDS: VITAMIN D 1,000 INTERNATIONAL UNITS TABLET PO SCH (21:16)
[2016-09-16] MEDS: ALLOPURINOL 300 MG TAB PO SCH (21:16)
[2016-09-16] MEDS: OMEPRAZOLE 20 MG CAP PO SCH (21:16)
[2016-09-16] MEDS: ACETAMINOPHEN TAB 650MG DOSE (2X325MG) PO PRN (21:17)
[2016-09-17] VITALS (8 sets, daily range): BP systolic 90–103; BP diastolic 56–63; O2SAT 96
[2016-09-17] MEDS: IPRATROPIUM 0.5MG/ALBUTEROL 2.5MG INH SOL UD 3ML (DUONEB)(J7620) NEB SCH ×4 (01:25→19:55)
[2016-09-17] MEDS: CEFTAROLINE FOSAMIL 600 MG in D5W MINI-BAG PLUS 50 ML IV SCH ×2 (04:20→17:08)
[2016-09-17] MEDS: LEVOTHYROXINE 100MCG TABLET (0.1MG) PO SCH (05:38)
[2016-09-17] MEDS: LEVOTHYROXINE 75MCG TABLET (0.075MG) PO SCH (05:39)
[2016-09-17 05:53] LABS: BASO % 0.3 % (0.0-1.0); EOS # 0.1 K/mm3 (0.0-0.50); LARGE UNSTAINED CELL # 0.1 K/mm3 (0.0-0.4); LARGE UNSTAINED CELL % 4.5 % (0.0-4.0); LYMPH # 0.9 K/mm3 (1.5-4.5); LYMPH % 23.7 % (24.0-44.0); MEAN CORPUSCULAR VOLUME 93.9 fl (80.0-96.0); MONO # 0.4 K/mm3 (0.0-0.8); MONO % 13.3 % (0.0-5.0); NEUTROPHILS # 1.7 K/mm3 (1.8-7.7); NEUTROPHILS % 54.2 % (36.0-66.0); PLATELET COUNT, AUTOMATED 105 k/mm3 (150-450); RED CELL DISTRIBUTION WIDTH 15.8 % (11.5-14.5); WHITE BLOOD COUNT 3.2 K/mm3 (4.0-10.0)
[2016-09-17 06:18] LABS: ALBUMIN 2.4 GM/DL (3.2-5.2); ALBUMIN/GLOBULIN RATIO 0.77 (1.00-1.93); BILIRUBIN,TOTAL 0.8 MG/DL (0.2-1.0); CALCIUM LEVEL 8.4 MG/DL (8.8-10.2); CREATININE FOR GFR 1.51 MG/DL (0.70-1.30); GLOMERULAR FILTRATION RATE 48.7 (>42); MAGNESIUM LEVEL 2.1 MG/DL (1.8-2.4); POTASSIUM SERUM 3.8 MEQ/L (3.5-5.1); TOTAL PROTEIN 5.5 GM/DL (6.4-8.2)
[2016-09-17] MEDS: HumaLOG INSULIN (NovoLOG) PER UNIT SC SCH ×4 (08:54→21:00)
[2016-09-17] MEDS: DIVALPROEX 500MG *ER* TAB PO SCH ×2 (08:56→21:38)
[2016-09-17] MEDS: MAGNESIUM OXIDE 400 MG TAB (MAG-OX) PO SCH ×2 (08:56→21:38)
[2016-09-17] MEDS: COLCHICINE 0.6 MG TAB PO SCH ×2 (08:56→21:39)
[2016-09-17] MEDS: SPIRONOLACTONE 25 MG TAB PO SCH (08:57)
[2016-09-17] MEDS: DABIGATRAN ETEXILATE 75 MG CAP (PRADAXA) PO SCH ×2 (08:57→21:37)
[2016-09-17] MEDS: GABAPENTIN 300 MG CAP PO SCH ×2 (08:57→21:38)
[2016-09-17] MEDS: LEVEMIR (INSULIN DETEMIR) 1 UNITS/0.01ML SC SCH ×2 (08:59→21:37)
[2016-09-17] MEDS: CLOTRIMAZOLE 1% TOPICAL CREAM 30GM TOP SCH ×4 (09:00→21:37)
[2016-09-17] MEDS: ISOSORBIDE DIN. (ISORDIL) 5 MG TAB PO SCH (09:00)
[2016-09-17] MEDS: NYSTATIN 100,000 UNITS/GM TOPICAL PWD 15 GM TOP SCH ×2 (09:00→21:40)
--- NOTE | 2016-09-17 11:59 | IPN ---
DATE: 09/16/2016 Mr. Bassett is feeling much better. His leg is not particularly uncomfortable. He is looking forward to getting out of bed and moving today. Temperature is 98.5, pulse 60, respiratory rate 18, blood pressure 100/55, 95% on 2 liters. Input and output notable for a positive fluid balance of 185. Four bowel movements yesterday. He is awake, appropriately interactive. Pleasantly conversant. Breathing is symmetrical. I/E ratio is 1:3. Mucous membranes most. Heart is distant sounding. Normal S1, S2. Abdomen soft, doughy and nontender. Right lower extremity is still somewhat edematous compared to left with similar erythematous, warm much retracted from previously drawn lines. Minimal tenderness. White cell count 4.4, hemoglobin 12.7 and platelets 101. BUN 24, creatinine 1.28. ASSESSMENT: 71-year-old with right lower extremity cellulitis, which is showing improvement. He presented with metabolic encephalopathy, which has totally resolved. Infectious disease: The patient is being continued on broad-spectrum antibiotics for cellulitis. He is much improved. I have discussed this case with his daughter at bedside. Continuing fungal cream for his toes. Blood cultures are negative at 48 hours. The patient has obstructive sleep apnea not on CPAP. His daughter has a device for him and she will bring it in. The patient has metabolic encephalopathy at the time of presentation which has resolved. The patient has a history of diastolic congestive heart failure, which is compensated. He is on torsemide and spironolactone at home. The patient has diabetes which is reasonable well controlled in the current setting. [facility]
[2016-09-17] MEDS: BISOPROLOL FUMARATE 10 MG TAB PO SCH (19:54)
--- NOTE | 2016-09-17 21:19 | IPN ---
DATE: 09/17/2016 Mr. Bassett is feeling well today, looking forward to being out of bed more. No chest pain. No shortness of breath. He thinks his leg is getting better, tolerating diet. Temperature 97.9, pulse 60, respiratory rate 19, blood pressure 101/61, although it was trending lower early this morning, slightly below 100, 91% on 4 liters nasal cannula. Intake and output notable for a positive fluid balance of 820, three bowel movements yesterday. He is awake, appropriately interactive, pleasantly conversant. Breathing is symmetrical and rested. Heart: Regular rate and rhythm, distant sounding. Abdomen: Soft, doughy, nontender. There is decreasing edema of his right lower extremity, nontender. It is still warm and red but much improved from presentation. White cell count 3.2, hemoglobin 12 and platelets of 105. BUN 31, creatinine 1.5, which represents a decrease in renal function. ASSESSMENT: This is a 71-year-old with right lower extremity cellulitis, which is much improved from presentation. PLAN: 1. Infectious disease. The patient is continued on broad-spectrum antibiotics for cellulitis. He is much improved. Continuing fungal cream for his toes. Blood cultures have been negative at 48 hours. 2. The patient had metabolic encephalopathy at the time of presentation, which has totally resolved. 3. The patient has obstructive sleep apnea, on continuous positive airway pressure (CPAP). CPAP is at bedside. 4. The patient has a history of diastolic congestive heart failure. I did restart diuretics at his home dosage yesterday, which has resulted in acute renal failure. Will repeat labs tomorrow and consider restarting diuretics at a lower dose for now. 5. The patient has diabetes, which is reasonably well controlled at the current setting.
[2016-09-17] MEDS: COLESEVELAM 625 MG TAB (WELCHOL) PO SCH (21:38)
[2016-09-17] MEDS: ASPIRIN 81 MG ENTERIC TAB PO SCH (21:38)
[2016-09-17] MEDS: VITAMIN D 1,000 INTERNATIONAL UNITS TABLET PO SCH (21:38)
[2016-09-17] MEDS: ASCORBIC ACID 500 MG TAB PO SCH (21:38)
[2016-09-17] MEDS: MULTIVITAMINS/MINERALS THERAP 1 TAB PO SCH (21:39)
[2016-09-17] MEDS: OMEPRAZOLE 20 MG CAP PO SCH (21:39)
[2016-09-17] MEDS: ALLOPURINOL 300 MG TAB PO SCH (21:39)
[2016-09-18] MEDS: IPRATROPIUM 0.5MG/ALBUTEROL 2.5MG INH SOL UD 3ML (DUONEB)(J7620) NEB SCH ×4 (01:38→19:35)
[2016-09-18 02:00] VITALS: BP 109/62
[2016-09-18] MEDS: CEFTAROLINE FOSAMIL 600 MG in D5W MINI-BAG PLUS 50 ML IV SCH ×2 (04:03→16:16)
[2016-09-18 06:00] VITALS: BP 97/64
[2016-09-18 06:14] LABS: BASO % 0.4 % (0.0-1.0); EOS # 0.1 K/mm3 (0.0-0.50); LARGE UNSTAINED CELL # 0.1 K/mm3 (0.0-0.4); LARGE UNSTAINED CELL % 4.8 % (0.0-4.0); LYMPH # 0.8 K/mm3 (1.5-4.5); LYMPH % 21.3 % (24.0-44.0); MEAN CORPUSCULAR HEMOGLOBIN 30.7 pg (27.0-33.0); MEAN CORPUSCULAR HGB CONC 32.2 g/dl (32.0-36.5); MEAN CORPUSCULAR VOLUME 95.1 fl (80.0-96.0); MONO # 0.3 K/mm3 (0.0-0.8); MONO % 10.9 % (0.0-5.0); NEUTROPHILS # 1.7 K/mm3 (1.8-7.7); NEUTROPHILS % 57.7 % (36.0-66.0); PLATELET COUNT, AUTOMATED 104 k/mm3 (150-450); RED CELL DISTRIBUTION WIDTH 15.8 % (11.5-14.5); WHITE BLOOD COUNT 2.9 K/mm3 (4.0-10.0)
[2016-09-18] MEDS: LEVOTHYROXINE 75MCG TABLET (0.075MG) PO SCH (06:17)
[2016-09-18] MEDS: LEVOTHYROXINE 100MCG TABLET (0.1MG) PO SCH (06:17)
[2016-09-18 06:44] LABS: ALBUMIN 2.4 GM/DL (3.2-5.2); ALBUMIN/GLOBULIN RATIO 0.86 (1.00-1.93); BILIRUBIN,TOTAL 0.6 MG/DL (0.2-1.0); CALCIUM LEVEL 8.4 MG/DL (8.8-10.2); CREATININE FOR GFR 1.38 MG/DL (0.70-1.30); GLOMERULAR FILTRATION RATE 54.1 (>42); MAGNESIUM LEVEL 2.7 MG/DL (1.8-2.4); TOTAL PROTEIN 5.2 GM/DL (6.4-8.2)
[2016-09-18] MEDS: HumaLOG INSULIN (NovoLOG) PER UNIT SC SCH ×4 (08:37→21:00)
[2016-09-18] MEDS: DABIGATRAN ETEXILATE 75 MG CAP (PRADAXA) PO SCH ×2 (08:38→21:19)
[2016-09-18] MEDS: COLCHICINE 0.6 MG TAB PO SCH ×2 (08:38→21:20)
[2016-09-18] MEDS: DIVALPROEX 500MG *ER* TAB PO SCH ×2 (08:39→21:20)
[2016-09-18] MEDS: MAGNESIUM OXIDE 400 MG TAB (MAG-OX) PO SCH ×2 (08:39→21:21)
[2016-09-18] MEDS: GABAPENTIN 300 MG CAP PO SCH ×2 (08:40→21:21)
[2016-09-18] MEDS: LEVEMIR (INSULIN DETEMIR) 1 UNITS/0.01ML SC SCH ×2 (08:40→21:19)
[2016-09-18] MEDS: CLOTRIMAZOLE 1% TOPICAL CREAM 30GM TOP SCH ×4 (08:41→21:22)
[2016-09-18] MEDS: NYSTATIN 100,000 UNITS/GM TOPICAL PWD 15 GM TOP SCH ×2 (08:41→21:22)
[2016-09-18] MEDS: ISOSORBIDE DIN. (ISORDIL) 5 MG TAB PO SCH (09:00)
--- NOTE | 2016-09-18 13:04 | IPNPDOC ---
Subjective Date Seen The patient was seen on 09/18/16. Subjective Chief Complaint/HPI The patient is a 71-year-old male admitted with a reason for visit of Encephalopathy;Leg Pain. General: Denies: ROS Unobtainable, Chills, Night Sweats, Fatigue, Malaise, Normal Appetite, Other Symptoms Constitutional: Denies: Chills, Fever, Malaise, Night Sweats, Weakness, Fatigue , Weight Loss, Lethargy, Other Eyes: Denies: Pain, Vision change, Conjunctivae inflammation, Eyelid inflammation, Redness, Other ENT: Denies: Head Aches, Ear Pain, Dysphagia, Sinus Congestion, Post Nasal Drip , Sore Throat, Epistaxis, Other Symptoms Skin: Denies: Rash, Lesions, Jaundice, Bruising, Itching, Dry, Breakdown, Nail Changes, Other Pulmonary: Denies: Dyspnea, Cough, Pleuritic Chest Pain, Other Symptoms Cardiovascular: Denies: Chest Pain, Palpitations, Orthopnea, Paroxysmal Noc. Dyspnea, Edema, Lt Headedness, Other Symptoms Objective Physical Examination General Exam: Positive: Alert, Cooperative, No Acute Distress Eye Exam: Positive: PERRLA Chest Exam: Positive: Clear to auscultation, Normal air movement Heart Exam: Positive: Rate Normal, Regular Rhythm Abdomen Exam: Positive: Normal bowel sounds, Soft, Negative: Tenderness Extremity Exam: Positive: Edema Psych Exam: Positive: Oriented x 3 Assessment /Plan Problems (1) Cellulitis Status: Acute Response to Treatment: Improving Discussed With: Patient Problem Specific Plan: Monitor Clinically Problem Text: Continue ceftaroline. (2) CHF (congestive heart failure) Status: Chronic Response to Treatment: Compensated Discussed With: Patient Problem Specific Plan: Monitor Clinically (3) PINKY (obstructive sleep apnea) Status: Chronic Discussed With: Patient Problem Specific Plan: Monitor Clinically (4) Encephalopathy Status: Resolved Plan/VTE VTE Prophylaxis Ordered?: Yes Plan Diet: Continue Current Activity: Continue Current Diagnostics: Repeat Labs in AM VS, I&O, 24H, Fishbone Vital Signs/I&O Vital Signs Date Time Temp Pulse Resp B/P (MAP) Pulse Ox O2 Delivery O2 Flow Rate FiO2 09/18/16 09:00 91/57 09/18/16 06:00 97.2 62 18 95 Nasal Cannula 4.0 I&O- Last 24 Hours up to 6 AM 09/18/16 06:00 Intake Total 1490 ml Output Total 280 ml Balance 1210 ml Laboratory Data 24H LABS Laboratory Tests 2 09/17/16 16:20: Bedside Glucose (Misc Panel) 440H 09/17/16 20:44: Bedside Glucose (Misc Panel) 115H 09/18/16 05:36: White Blood Count 2.9L, Red Blood Count 3.91L, Hemoglobin 12.0L, Hematocrit 37.2L, Mean Corpuscular Volume 95.1, Mean Corpuscular Hemoglobin 30.7, Mean Corpuscular Hemoglobin Concent 32.2, Red Cell Distribution Width 15.8H, Platelet Count 104L, Neutrophils (%) (Auto) 57.7, Lymphocytes (%) (Auto) 21.3L, Monocytes (%) (Auto) 10.9H, Eosinophils (%) (Auto) 5.0H, Basophils (%) (Auto) 0.4, Neutrophils # (Auto) 1.7L, Lymphocytes # (Auto) 0.8L, Monocytes # (Auto) 0.3, Eosinophils # (Auto) 0.1, Basophils # (Auto) 0.0, Large Unclassified Cells % 4.8H, Large Unclassified Cells # 0.1, Anion Gap 6L, Glomerular Filtration Rate 54.1, Blood Urea Nitrogen 40H, Creatinine 1.38H, Sodium Level 139, Potassium Level 4.0, Chloride Level 105, Carbon Dioxide Level 28, Calcium Level 8.4L, Aspartate Amino Transf (AST/SGOT) 23, Alanine Aminotransferase (ALT/SGPT) 17, Alkaline Phosphatase 180H, Total Bilirubin 0.6, Total Protein 5.2L, Albumin 2.4L, Magnesium Level 2.7H, Albumin/Globulin Ratio 0.86L 09/18/16 11:59: Bedside Glucose (Misc Panel) 168H CBC/BMP Laboratory Tests 09/18/16 05:36 Red Blood Count 3.91 L, Mean Corpuscular Volume 95.1, Mean Corpuscular Hemoglobin 30.7, Mean Corpuscular Hemoglobin Concent 32.2, Red Cell Distribution Width 15.8 H, Neutrophils (%) (Auto) 57.7, Lymphocytes (%) (Auto) 21.3 L, Monocytes (%) (Auto) 10.9 H, Eosinophils (%) (Auto) 5.0 H, Basophils (% ) (Auto) 0.4, Neutrophils # (Auto) 1.7 L, Lymphocytes # (Auto) 0.8 L, Monocytes # (Auto) 0.3, Eosinophils # (Auto) 0.1, Basophils # (Auto) 0.0, Calcium Level 8.4 L, Aspartate Amino Transf (AST/SGOT) 23, Alanine Aminotransferase (ALT/SGPT ) 17, Alkaline Phosphatase 180 H, Total Bilirubin 0.6, Total Protein 5.2 L, Albumin 2.4 L Microbiology Microbiology 09/13/16 Blood Culture - Preliminary, Resulted No Growth after 72 hours. All specime... 09/13/16 Blood Culture - Preliminary, Resulted No Growth after 72 hours. All specime... 09/17/16 Urine Culture, Received Pending ELIDA PALMA MD Sep 18, 2016 13:04
[2016-09-18 14:00] VITALS: BP 110/59
--- NOTE | 2016-09-18 14:22 | REP ---
CT of the chest without IV contrast: Comparison is 02/03/2010. There are no focal infiltrates. No pleural effusions. There is dependent atelectasis. There are no masses or nodules. There are stable normal size mediastinal nodes, unchanged. The study is insensitive for hilar adenopathy in the absence of IV contrast. There is no axillary adenopathy. The thoracic aorta is unremarkable. Cardiac size is mildly enlarged, unchanged. There has been interval placement of a pacemaker. The visualized upper abdominal contents are unchanged. I suspect there is splenomegaly of the spleen is not imaged in entirety. Impression: Essentially negative CT study of the chest. No infiltrates, effusions or masses. In the upper abdomen I suspect there is splenomegaly, however, the spleen is not imaged in entirety. However, on the CT of the abdomen pelvis dated 07/12/2016, the spleen was enlarged. The liver was also enlarged. Signed by Jason Ceron MD 09/18/2016 02:14 P
[2016-09-18 14:32] LABS: ABG BASE EXCESS 0.4 (-2.0-2.0); ABG HCO3 24.5 MEQ/L (22.0-26.0); ABG PARTIAL PRESSURE CO2 37.8 mmHg (35.0-45.0); ABG PARTIAL PRESSURE O2 73.5 mmHg (75.0-100.0); ABG STANDARD HCO3 24.8 MEQ/L (22.0-26.0); ABG TOTAL CO2 25.6 MEQ/L (23.0-31.0); ABG pH (ARTERIAL) 7.429 UNITS (7.350-7.450)
[2016-09-18 18:00] VITALS: BP 115/71
[2016-09-18] MEDS: BISOPROLOL FUMARATE 10 MG TAB PO SCH (20:02)
[2016-09-18] MEDS: VITAMIN D 1,000 INTERNATIONAL UNITS TABLET PO SCH (21:20)
[2016-09-18] MEDS: ALLOPURINOL 300 MG TAB PO SCH (21:20)
[2016-09-18] MEDS: ASPIRIN 81 MG ENTERIC TAB PO SCH (21:20)
[2016-09-18] MEDS: COLESEVELAM 625 MG TAB (WELCHOL) PO SCH (21:20)
[2016-09-18] MEDS: ASCORBIC ACID 500 MG TAB PO SCH (21:21)
[2016-09-18] MEDS: MULTIVITAMINS/MINERALS THERAP 1 TAB PO SCH (21:21)
[2016-09-18] MEDS: OMEPRAZOLE 20 MG CAP PO SCH (21:21)
[2016-09-18 22:00] VITALS: BP 104/68
[2016-09-19] MEDS: IPRATROPIUM 0.5MG/ALBUTEROL 2.5MG INH SOL UD 3ML (DUONEB)(J7620) NEB SCH ×4 (01:06→20:06)
[2016-09-19 02:00] VITALS: BP 108/62
[2016-09-19] MEDS: CEFTAROLINE FOSAMIL 600 MG in D5W MINI-BAG PLUS 50 ML IV SCH ×2 (03:35→17:09)
[2016-09-19] MEDS: LEVOTHYROXINE 75MCG TABLET (0.075MG) PO SCH (05:58)
[2016-09-19] MEDS: LEVOTHYROXINE 100MCG TABLET (0.1MG) PO SCH (05:58)
[2016-09-19 06:00] VITALS: BP 115/68
[2016-09-19 06:14] LABS: BASO % 0.5 % (0.0-1.0); EOS # 0.2 K/mm3 (0.0-0.50); EOS % 7.3 % (0.0-3.0); LARGE UNSTAINED CELL # 0.1 K/mm3 (0.0-0.4); LARGE UNSTAINED CELL % 3.8 % (0.0-4.0); LYMPH # 0.7 K/mm3 (1.5-4.5); LYMPH % 18.5 % (24.0-44.0); MEAN CORPUSCULAR HEMOGLOBIN 29.8 pg (27.0-33.0); MEAN CORPUSCULAR HGB CONC 31.2 g/dl (32.0-36.5); MEAN CORPUSCULAR VOLUME 95.4 fl (80.0-96.0); MONO # 0.4 K/mm3 (0.0-0.8); MONO % 11.4 % (0.0-5.0); NEUTROPHILS # 1.8 K/mm3 (1.8-7.7); NEUTROPHILS % 58.6 % (36.0-66.0); PLATELET COUNT, AUTOMATED 125 k/mm3 (150-450); RED CELL DISTRIBUTION WIDTH 15.6 % (11.5-14.5); WHITE BLOOD COUNT 3.1 K/mm3 (4.0-10.0)
[2016-09-19 06:36] LABS: ALKALINE PHOSPHATASE 209 U/L (45-117); ALT/SGPT 22 U/L (12-78); AST/SGOT 21 U/L (15-37); BILIRUBIN,TOTAL 0.7 MG/DL (0.2-1.0); BLOOD UREA NITROGEN 39 MG/DL (7-18); CARBON DIOXIDE LEVEL 28 MEQ/L (21-32); CHLORIDE LEVEL 111 MEQ/L (98-107); CREATININE FOR GFR 1.29 MG/DL (0.70-1.30); GLUCOSE, FASTING 122 MG/DL (83-110); MAGNESIUM LEVEL 2.8 MG/DL (1.8-2.4); POTASSIUM SERUM 4.3 MEQ/L (3.5-5.1)
[2016-09-19 06:40] LABS: ANION GAP 6 MEQ/L (8-16); SODIUM LEVEL 145 MEQ/L (136-145)
[2016-09-19 07:02] LABS: TOTAL PROTEIN 5.6 GM/DL (6.4-8.2)
[2016-09-19 07:03] LABS: ALBUMIN 2.6 GM/DL (3.2-5.2); ALBUMIN/GLOBULIN RATIO 0.87 (1.00-1.93)
[2016-09-19] MEDS: MAGNESIUM OXIDE 400 MG TAB (MAG-OX) PO SCH (08:40)
[2016-09-19] MEDS: DABIGATRAN ETEXILATE 75 MG CAP (PRADAXA) PO SCH ×2 (08:40→20:22)
[2016-09-19] MEDS: DIVALPROEX 500MG *ER* TAB PO SCH ×2 (08:40→20:23)
[2016-09-19] MEDS: COLCHICINE 0.6 MG TAB PO SCH ×2 (08:40→20:23)
[2016-09-19] MEDS: GABAPENTIN 300 MG CAP PO SCH ×2 (08:40→20:22)
[2016-09-19] MEDS: LEVEMIR (INSULIN DETEMIR) 1 UNITS/0.01ML SC SCH ×2 (08:41→20:20)
[2016-09-19] MEDS: HumaLOG INSULIN (NovoLOG) PER UNIT SC SCH ×4 (08:42→20:07)
[2016-09-19] MEDS: NYSTATIN 100,000 UNITS/GM TOPICAL PWD 15 GM TOP SCH ×2 (08:43→20:24)
[2016-09-19] MEDS: CLOTRIMAZOLE 1% TOPICAL CREAM 30GM TOP SCH ×4 (08:43→20:24)
[2016-09-19] MEDS: ISOSORBIDE DIN. (ISORDIL) 5 MG TAB PO SCH (08:46)
[2016-09-19 10:00] VITALS: BP 113/65
--- NOTE | 2016-09-19 10:39 | IPNPDOC ---
Subjective Date Seen The patient was seen on 09/19/16. Subjective Chief Complaint/HPI The patient is a 71-year-old male admitted with a reason for visit of Encephalopathy;Leg Pain. General: Denies: ROS Unobtainable, Chills, Night Sweats, Fatigue, Malaise, Normal Appetite, Other Symptoms Constitutional: Denies: Chills, Fever, Malaise, Night Sweats, Weakness, Fatigue , Weight Loss, Lethargy, Other Eyes: Denies: Pain, Vision change, Conjunctivae inflammation, Eyelid inflammation, Redness, Other ENT: Denies: Head Aches, Ear Pain, Dysphagia, Sinus Congestion, Post Nasal Drip , Sore Throat, Epistaxis, Other Symptoms Skin: Denies: Rash, Lesions, Jaundice, Bruising, Itching, Dry, Breakdown, Nail Changes, Other Pulmonary: Denies: Dyspnea, Cough, Pleuritic Chest Pain, Other Symptoms Cardiovascular: Denies: Chest Pain, Palpitations, Orthopnea, Paroxysmal Noc. Dyspnea, Edema, Lt Headedness, Other Symptoms Gastrointestinal: Denies: Nausea, Vomiting, Abdominal Pain, Diarrhea, Constipation, Melena, Hematochezia, Other Symptoms Objective Physical Examination General Exam: Positive: Alert, Cooperative, No Acute Distress Eye Exam: Positive: PERRLA Chest Exam: Positive: Clear to auscultation, Normal air movement Heart Exam: Positive: Rate Normal, Regular Rhythm Abdomen Exam: Positive: Normal bowel sounds, Soft, Negative: Tenderness Extremity Exam: Positive: Edema Psych Exam: Positive: Oriented x 3 Assessment /Plan Problems (1) Cellulitis Status: Acute Response to Treatment: Improving Discussed With: Patient Problem Specific Plan: Monitor Clinically Problem Text: Continue ceftaroline. (2) Respiratory distress Status: Acute Discussed With: Patient Problem Specific Plan: Monitor Clinically Problem Text: Unclear etiology. Patient states does not use supplemental O2 at home. ABG unrevealing. CT chest unrevealing. Possibly PINKY complicated OHS. Wean O2. IS, acapella. (3) CHF (congestive heart failure) Status: Chronic Response to Treatment: Compensated Discussed With: Patient Problem Specific Plan: Monitor Clinically (4) PINKY (obstructive sleep apnea) Status: Chronic Discussed With: Patient Problem Specific Plan: Monitor Clinically Problem Text: Uses CPAP at night. (5) Encephalopathy Status: Resolved Plan/VTE VTE Prophylaxis Ordered?: Yes Plan Diet: Continue Current Activity: Continue Current Therapy: PT Respiratory: Wean Oxygen Diagnostics: Repeat Labs in AM Wean O2. Continue PT. May need to be discharge with oxygen. VS, I&O, 24H, [place] Vital Signs/I&O Vital Signs Date Time Temp Pulse Resp B/P (MAP) Pulse Ox O2 Delivery O2 Flow Rate FiO2 09/19/16 08:46 115/68 09/19/16 06:00 97.4 60 18 95 Nasal Cannula 4.0 I&O- Last 24 Hours up to 6 AM 09/19/16 06:00 Intake Total 770 ml Output Total 0 ml Balance 770 ml Laboratory Data 24H LABS Laboratory Tests 2 09/18/16 11:59: Bedside Glucose (Misc Panel) 168H 09/18/16 14:17: Blood Gas Bicarbonate Standard 24.8, Arterial Blood pH 7.429, Arterial Blood Partial Pressure CO2 37.8, Arterial Blood Partial Pressure O2 73.5L, Arterial Blood Total CO2 25.6, Arterial Blood HCO3 24.5, Arterial Blood Base Excess 0.4, Arterial Blood Oxygen Saturation 95.0 09/18/16 16:53: Bedside Glucose (Misc Panel) 134H 09/18/16 19:50: Bedside Glucose (Misc Panel) 191H 09/19/16 05:42: White Blood Count 3.1L, Red Blood Count 4.10L, Hemoglobin 12.2L, Hematocrit 39.2L, Mean Corpuscular Volume 95.4, Mean Corpuscular Hemoglobin 29.8, Mean Corpuscular Hemoglobin Concent 31.2L, Red Cell Distribution Width 15.6H, Platelet Count 125L, Neutrophils (%) (Auto) 58.6, Lymphocytes (%) (Auto) 18.5L, Monocytes (%) (Auto) 11.4H, Eosinophils (%) (Auto) 7.3H, Basophils (%) (Auto) 0.5, Neutrophils # (Auto) 1.8, Lymphocytes # (Auto) 0.7L, Monocytes # (Auto) 0.4 , Eosinophils # (Auto) 0.2, Basophils # (Auto) 0.0, Large Unclassified Cells % 3.8, Large Unclassified Cells # 0.1, Anion Gap 6L, Blood Urea Nitrogen 39H, Creatinine 1.29, Sodium Level 145, Potassium Level 4.3, Chloride Level 111H, Carbon Dioxide Level 28, Calcium Level 9.0, Aspartate Amino Transf (AST/SGOT) 21 , Alanine Aminotransferase (ALT/SGPT) 22, Alkaline Phosphatase 209H, Total Bilirubin 0.7, Total Protein 5.6L, Albumin 2.6L, Magnesium Level 2.8H, Albumin/ Globulin Ratio 0.87L CBC/BMP Laboratory Tests 09/19/16 05:42 Red Blood Count 4.10 L, Mean Corpuscular Volume 95.4, Mean Corpuscular Hemoglobin 29.8, Mean Corpuscular Hemoglobin Concent 31.2 L, Red Cell Distribution Width 15.6 H, Neutrophils (%) (Auto) 58.6, Lymphocytes (%) (Auto) 18.5 L, Monocytes (%) (Auto) 11.4 H, Eosinophils (%) (Auto) 7.3 H, Basophils (% ) (Auto) 0.5, Neutrophils # (Auto) 1.8, Lymphocytes # (Auto) 0.7 L, Monocytes # (Auto) 0.4, Eosinophils # (Auto) 0.2, Basophils # (Auto) 0.0, Calcium Level 9.0 , Aspartate Amino Transf (AST/SGOT) 21, Alanine Aminotransferase (ALT/SGPT) 22, Alkaline Phosphatase 209 H, Total Bilirubin 0.7, Total Protein 5.6 L, Albumin 2.6 L Microbiology Microbiology 09/13/16 Blood Culture - Final, Complete NO GROWTH AFTER 5 DAYS 09/13/16 Blood Culture - Final, Complete NO GROWTH AFTER 5 DAYS 09/17/16 Urine Culture - Final, Complete ELIDA PALMA MD Sep 19, 2016 10:39
[2016-09-19 14:00] VITALS: BP 101/58
[2016-09-19 18:00] VITALS: BP 95/54
[2016-09-19] MEDS: ASCORBIC ACID 500 MG TAB PO SCH (20:22)
[2016-09-19] MEDS: MULTIVITAMINS/MINERALS THERAP 1 TAB PO SCH (20:22)
[2016-09-19] MEDS: OMEPRAZOLE 20 MG CAP PO SCH (20:22)
[2016-09-19] MEDS: VITAMIN D 1,000 INTERNATIONAL UNITS TABLET PO SCH (20:22)
[2016-09-19] MEDS: ASPIRIN 81 MG ENTERIC TAB PO SCH (20:22)
[2016-09-19] MEDS: ALLOPURINOL 300 MG TAB PO SCH (20:22)
[2016-09-19] MEDS: COLESEVELAM 625 MG TAB (WELCHOL) PO SCH (20:22)
[2016-09-19] MEDS: BISOPROLOL FUMARATE 10 MG TAB PO SCH (20:23)
[2016-09-19 22:00] VITALS: BP 118/71
[2016-09-20] MEDS: IPRATROPIUM 0.5MG/ALBUTEROL 2.5MG INH SOL UD 3ML (DUONEB)(J7620) NEB SCH ×4 (00:41→20:00)
[2016-09-20 02:00] VITALS: BP 110/63
[2016-09-20] MEDS: CEFTAROLINE FOSAMIL 600 MG in D5W MINI-BAG PLUS 50 ML IV SCH ×2 (04:27→15:49)
[2016-09-20] MEDS: LEVOTHYROXINE 75MCG TABLET (0.075MG) PO SCH (05:36)
[2016-09-20] MEDS: LEVOTHYROXINE 100MCG TABLET (0.1MG) PO SCH (05:36)
[2016-09-20 06:00] VITALS: BP 111/68
[2016-09-20 06:00] LABS: BASO % 0.3 % (0.0-1.0); EOS # 0.2 K/mm3 (0.0-0.50); EOS % 6.8 % (0.0-3.0); LARGE UNSTAINED CELL # 0.1 K/mm3 (0.0-0.4); LARGE UNSTAINED CELL % 3.3 % (0.0-4.0); LYMPH # 0.6 K/mm3 (1.5-4.5); LYMPH % 14.6 % (24.0-44.0); MEAN CORPUSCULAR HGB CONC 31.3 g/dl (32.0-36.5); MEAN CORPUSCULAR VOLUME 95.9 fl (80.0-96.0); MONO # 0.4 K/mm3 (0.0-0.8); MONO % 10.7 % (0.0-5.0); NEUTROPHILS # 2.3 K/mm3 (1.8-7.7); NEUTROPHILS % 64.4 % (36.0-66.0); PLATELET COUNT, AUTOMATED 110 k/mm3 (150-450); RED CELL DISTRIBUTION WIDTH 15.5 % (11.5-14.5); WHITE BLOOD COUNT 3.6 K/mm3 (4.0-10.0)
[2016-09-20 06:31] LABS: ALBUMIN 2.5 GM/DL (3.2-5.2); ALBUMIN/GLOBULIN RATIO 0.89 (1.00-1.93); ALKALINE PHOSPHATASE 210 U/L (45-117); ALT/SGPT 18 U/L (12-78); ANION GAP 8 MEQ/L (8-16); AST/SGOT 21 U/L (15-37); BILIRUBIN,TOTAL 0.5 MG/DL (0.2-1.0); BLOOD UREA NITROGEN 40 MG/DL (7-18); CARBON DIOXIDE LEVEL 27 MEQ/L (21-32); CHLORIDE LEVEL 106 MEQ/L (98-107); CREATININE FOR GFR 1.18 MG/DL (0.70-1.30); GLOMERULAR FILTRATION RATE > 60.0 (>42); GLUCOSE, FASTING 163 MG/DL (83-110); MAGNESIUM LEVEL 2.8 MG/DL (1.8-2.4); SODIUM LEVEL 141 MEQ/L (136-145); TOTAL PROTEIN 5.3 GM/DL (6.4-8.2)
[2016-09-20] MEDS: LEVEMIR (INSULIN DETEMIR) 1 UNITS/0.01ML SC SCH ×2 (08:23→20:51)
[2016-09-20] MEDS: COLCHICINE 0.6 MG TAB PO SCH ×2 (08:24→20:51)
[2016-09-20] MEDS: HumaLOG INSULIN (NovoLOG) PER UNIT SC SCH ×4 (08:24→20:50)
[2016-09-20] MEDS: DABIGATRAN ETEXILATE 75 MG CAP (PRADAXA) PO SCH ×2 (08:24→20:51)
[2016-09-20] MEDS: GABAPENTIN 300 MG CAP PO SCH ×2 (08:25→20:52)
[2016-09-20] MEDS: DIVALPROEX 500MG *ER* TAB PO SCH ×2 (08:25→20:51)
[2016-09-20] MEDS: ISOSORBIDE DIN. (ISORDIL) 5 MG TAB PO SCH (08:25)
[2016-09-20] MEDS: CLOTRIMAZOLE 1% TOPICAL CREAM 30GM TOP SCH ×4 (08:26→20:53)
[2016-09-20] MEDS: NYSTATIN 100,000 UNITS/GM TOPICAL PWD 15 GM TOP SCH ×2 (08:26→20:53)
--- NOTE | 2016-09-20 09:01 | IPNPDOC ---
Subjective Date Seen The patient was seen on 09/20/16. Subjective Chief Complaint/HPI The patient is a 71-year-old male admitted with a reason for visit of Encephalopathy;Leg Pain. General: Denies: ROS Unobtainable, Chills, Night Sweats, Fatigue, Malaise, Normal Appetite, Other Symptoms Constitutional: Denies: Chills, Fever, Malaise, Night Sweats, Weakness, Fatigue , Weight Loss, Lethargy, Other Eyes: Denies: Pain, Vision change, Conjunctivae inflammation, Eyelid inflammation, Redness, Other ENT: Denies: Head Aches, Ear Pain, Dysphagia, Sinus Congestion, Post Nasal Drip , Sore Throat, Epistaxis, Other Symptoms Skin: Denies: Rash, Lesions, Jaundice, Bruising, Itching, Dry, Breakdown, Nail Changes, Other Pulmonary: Denies: Dyspnea, Cough, Pleuritic Chest Pain, Other Symptoms Cardiovascular: Denies: Chest Pain, Palpitations, Orthopnea, Paroxysmal Noc. Dyspnea, Edema, Lt Headedness, Other Symptoms Gastrointestinal: Denies: Nausea, Vomiting, Abdominal Pain, Diarrhea, Constipation, Melena, Hematochezia, Other Symptoms Objective Physical Examination General Exam: Positive: Alert, Cooperative, No Acute Distress Eye Exam: Positive: PERRLA Chest Exam: Positive: Clear to auscultation, Normal air movement Heart Exam: Positive: Rate Normal, Regular Rhythm Abdomen Exam: Positive: Normal bowel sounds, Soft, Negative: Tenderness Extremity Exam: Positive: Edema Psych Exam: Positive: Oriented x 3 Assessment /Plan Problems (1) Cellulitis Status: Acute Response to Treatment: Improving Discussed With: Patient Problem Specific Plan: Monitor Clinically Problem Text: Continue ceftaroline - day #8. Anticipating transition to doxy on discharge. (2) Respiratory distress Status: Acute Discussed With: Patient Problem Specific Plan: Monitor Clinically Problem Text: Unclear etiology. Patient states does not use supplemental O2 at home. ABG unrevealing. CT chest unrevealing. Possibly PINKY complicated OHS. Wean O2. IS, acapella. (3) CHF (congestive heart failure) Status: Chronic Response to Treatment: Compensated Discussed With: Patient Problem Specific Plan: Monitor Clinically (4) PINKY (obstructive sleep apnea) Status: Chronic Discussed With: Patient Problem Specific Plan: Monitor Clinically Problem Text: Uses CPAP at night. (5) Encephalopathy Status: Resolved (6) Hypermagnesemia Problem Specific Plan: Monitor Clinically, Repeat Labs Problem Text: D/C oral mag supplements. D/C MVI. (7) AV block Status: Chronic Problem Text: s/p PPM (8) HTN (hypertension) Status: Chronic Discussed With: Patient Problem Specific Plan: Monitor Clinically Problem Text: Pressures controlled, Isosorbide dintrate not administered with holding parameters (9) Diabetes Status: Chronic Problem Specific Plan: Monitor Clinically Problem Text: insulin (10) Seizure disorder Status: Chronic Problem Specific Plan: Monitor Clinically Problem Text: depakote (11) Hypothyroidism Status: Chronic Problem Specific Plan: Monitor Clinically Problem Text: synthroid (12) Gout Status: Chronic Problem Specific Plan: Monitor Clinically Problem Text: allopurinol, colchicine (13) GERD (gastroesophageal reflux disease) Status: Chronic Problem Text: prilosec (14) CKD (chronic kidney disease) Status: Chronic (15) Afib Status: Chronic Problem Text: rate controlled - zebeta with hold parameters a/c with pradaxa Plan/VTE VTE Prophylaxis Ordered?: Yes Plan Diet: Continue Current Activity: Continue Current Therapy: PT Respiratory: Wean Oxygen Diagnostics: Repeat Labs in AM Still requiring PT. VS, I&O, 24H, Fishbone Vital Signs/I&O Vital Signs Date Time Temp Pulse Resp B/P (MAP) Pulse Ox O2 Delivery O2 Flow Rate FiO2 09/20/16 08:25 118/68 09/20/16 06:00 97.5 60 19 90 Nasal Cannula 4.0 I&O- Last 24 Hours up to 6 AM 09/20/16 05:59 Intake Total 1010 ml Output Total 0 ml Balance 1010 ml Laboratory Data 24H LABS Laboratory Tests 2 09/19/16 11:32: Bedside Glucose (Misc Panel) 183H 09/20/16 05:31: White Blood Count 3.6L, Red Blood Count 3.87L, Hemoglobin 11.6L, Hematocrit 37.1L, Mean Corpuscular Volume 95.9, Mean Corpuscular Hemoglobin 30.0, Mean Corpuscular Hemoglobin Concent 31.3L, Red Cell Distribution Width 15.5H, Platelet Count 110L, Neutrophils (%) (Auto) 64.4, Lymphocytes (%) (Auto) 14.6L, Monocytes (%) (Auto) 10.7H, Eosinophils (%) (Auto) 6.8H, Basophils (%) (Auto) 0.3, Neutrophils # (Auto) 2.3, Lymphocytes # (Auto) 0.6L, Monocytes # (Auto) 0.4 , Eosinophils # (Auto) 0.2, Basophils # (Auto) 0.0, Large Unclassified Cells % 3.3, Large Unclassified Cells # 0.1, Anion Gap 8, Glomerular Filtration Rate > 60.0, Blood Urea Nitrogen 40H, Creatinine 1.18, Sodium Level 141, Potassium Level 4.0, Chloride Level 106, Carbon Dioxide Level 27, Calcium Level 9.0, Aspartate Amino Transf (AST/SGOT) 21, Alanine Aminotransferase (ALT/SGPT) 18, Alkaline Phosphatase 210H, Total Bilirubin 0.5, Total Protein 5.3L, Albumin 2.5L , Magnesium Level 2.8H, Albumin/Globulin Ratio 0.89L CBC/BMP Laboratory Tests 09/20/16 05:31 Red Blood Count 3.87 L, Mean Corpuscular Volume 95.9, Mean Corpuscular Hemoglobin 30.0, Mean Corpuscular Hemoglobin Concent 31.3 L, Red Cell Distribution Width 15.5 H, Neutrophils (%) (Auto) 64.4, Lymphocytes (%) (Auto) 14.6 L, Monocytes (%) (Auto) 10.7 H, Eosinophils (%) (Auto) 6.8 H, Basophils (% ) (Auto) 0.3, Neutrophils # (Auto) 2.3, Lymphocytes # (Auto) 0.6 L, Monocytes # (Auto) 0.4, Eosinophils # (Auto) 0.2, Basophils # (Auto) 0.0, Calcium Level 9.0 , Aspartate Amino Transf (AST/SGOT) 21, Alanine Aminotransferase (ALT/SGPT) 18, Alkaline Phosphatase 210 H, Total Bilirubin 0.5, Total Protein 5.3 L, Albumin 2.5 L Microbiology Microbiology 09/13/16 Blood Culture - Final, Complete NO GROWTH AFTER 5 DAYS 09/13/16 Blood Culture - Final, Complete NO GROWTH AFTER 5 DAYS 09/17/16 Urine Culture - Final, Complete ELIDA PALMA MD Sep 20, 2016 09:01
[2016-09-20 10:00] VITALS: BP 104/60
[2016-09-20 14:00] VITALS: BP 104/66
[2016-09-20 18:00] VITALS: BP 102/61
[2016-09-20] MEDS: BISOPROLOL FUMARATE 10 MG TAB PO SCH (20:49)
[2016-09-20] MEDS: ALLOPURINOL 300 MG TAB PO SCH (20:51)
[2016-09-20] MEDS: OMEPRAZOLE 20 MG CAP PO SCH (20:51)
[2016-09-20] MEDS: COLESEVELAM 625 MG TAB (WELCHOL) PO SCH (20:51)
[2016-09-20] MEDS: ASPIRIN 81 MG ENTERIC TAB PO SCH (20:51)
[2016-09-20] MEDS: ASCORBIC ACID 500 MG TAB PO SCH (20:51)
[2016-09-20] MEDS: VITAMIN D 1,000 INTERNATIONAL UNITS TABLET PO SCH (20:52)
[2016-09-20 23:59] VITALS: BP 103/72
[2016-09-21 02:00] VITALS: BP 117/63
[2016-09-21] MEDS: IPRATROPIUM 0.5MG/ALBUTEROL 2.5MG INH SOL UD 3ML (DUONEB)(J7620) NEB SCH ×4 (02:00→19:31)
[2016-09-21] MEDS: CEFTAROLINE FOSAMIL 600 MG in D5W MINI-BAG PLUS 50 ML IV SCH (04:06)
[2016-09-21] MEDS: LEVOTHYROXINE 100MCG TABLET (0.1MG) PO SCH (05:39)
[2016-09-21] MEDS: LEVOTHYROXINE 75MCG TABLET (0.075MG) PO SCH (05:39)
[2016-09-21 05:58] LABS: BASO % 0.4 % (0.0-1.0); EOS # 0.4 K/mm3 (0.0-0.50); EOS % 8.5 % (0.0-3.0); LARGE UNSTAINED CELL # 0.1 K/mm3 (0.0-0.4); LARGE UNSTAINED CELL % 2.9 % (0.0-4.0); LYMPH # 0.8 K/mm3 (1.5-4.5); LYMPH % 13.2 % (24.0-44.0); MEAN CORPUSCULAR HEMOGLOBIN 29.3 pg (27.0-33.0); MEAN CORPUSCULAR HGB CONC 30.3 g/dl (32.0-36.5); MEAN CORPUSCULAR VOLUME 96.7 fl (80.0-96.0); MONO # 0.5 K/mm3 (0.0-0.8); MONO % 10.3 % (0.0-5.0); NEUTROPHILS # 3.1 K/mm3 (1.8-7.7); NEUTROPHILS % 64.7 % (36.0-66.0); PLATELET COUNT, AUTOMATED 127 k/mm3 (150-450); RED CELL DISTRIBUTION WIDTH 15.4 % (11.5-14.5); WHITE BLOOD COUNT 4.8 K/mm3 (4.0-10.0)
[2016-09-21 06:00] VITALS: BP 100/64
[2016-09-21 06:08] LABS: ANION GAP 8 MEQ/L (8-16); BLOOD UREA NITROGEN 39 MG/DL (7-18); CALCIUM LEVEL 8.7 MG/DL (8.8-10.2); CARBON DIOXIDE LEVEL 28 MEQ/L (21-32); CHLORIDE LEVEL 110 MEQ/L (98-107); CREATININE FOR GFR 1.21 MG/DL (0.70-1.30); GLOMERULAR FILTRATION RATE > 60.0 (>42); GLUCOSE, FASTING 131 MG/DL (83-110); POTASSIUM SERUM 4.5 MEQ/L (3.5-5.1); SODIUM LEVEL 146 MEQ/L (136-145)
--- NOTE | 2016-09-21 08:47 | IPNPDOC ---
Subjective Date Seen The patient was seen on 09/21/16. Subjective Chief Complaint/HPI The patient is a 71-year-old male admitted with a reason for visit of Encephalopathy;Leg Pain. General: Denies: ROS Unobtainable, Chills, Night Sweats, Fatigue, Malaise, Normal Appetite, Other Symptoms Constitutional: Denies: Chills, Fever, Malaise, Night Sweats, Weakness, Fatigue , Weight Loss, Lethargy, Other Eyes: Denies: Pain, Vision change, Conjunctivae inflammation, Eyelid inflammation, Redness, Other ENT: Denies: Head Aches, Ear Pain, Dysphagia, Sinus Congestion, Post Nasal Drip , Sore Throat, Epistaxis, Other Symptoms Skin: Denies: Rash, Lesions, Jaundice, Bruising, Itching, Dry, Breakdown, Nail Changes, Other Pulmonary: Denies: Dyspnea, Cough, Pleuritic Chest Pain, Other Symptoms Cardiovascular: Denies: Chest Pain, Palpitations, Orthopnea, Paroxysmal Noc. Dyspnea, Edema, Lt Headedness, Other Symptoms Gastrointestinal: Denies: Nausea, Vomiting, Abdominal Pain, Diarrhea, Constipation, Melena, Hematochezia, Other Symptoms Objective Physical Examination General Exam: Positive: Alert, Cooperative, No Acute Distress Eye Exam: Positive: PERRLA Chest Exam: Positive: Clear to auscultation, Normal air movement Heart Exam: Positive: Rate Normal, Regular Rhythm Abdomen Exam: Positive: Normal bowel sounds, Soft, Negative: Tenderness Extremity Exam: Positive: Edema Psych Exam: Positive: Oriented x 3 Assessment /Plan Problems (1) Cellulitis Status: Acute Response to Treatment: Improving Discussed With: Patient Problem Specific Plan: Monitor Clinically Problem Text: DC Ceftaroline - transitioned to doxycycline. (2) Respiratory distress Status: Acute Discussed With: Patient Problem Specific Plan: Monitor Clinically Problem Text: Continue to wean O2. Patient states does not use supplemental O2 at home. ABG unrevealing. CT chest unrevealing. Possibly PINKY complicated OHS. IS, acapella. (3) CHF (congestive heart failure) Status: Chronic Response to Treatment: Compensated Discussed With: Patient Problem Specific Plan: Monitor Clinically (4) PINKY (obstructive sleep apnea) Status: Chronic Discussed With: Patient Problem Specific Plan: Monitor Clinically Problem Text: Uses CPAP at night. (5) Encephalopathy Status: Resolved (6) Hypermagnesemia Problem Specific Plan: Monitor Clinically, Repeat Labs Problem Text: D/C oral mag supplements. D/C MVI. (7) AV block Status: Chronic Problem Text: s/p PPM (8) HTN (hypertension) Status: Chronic Discussed With: Patient Problem Specific Plan: Monitor Clinically Problem Text: Pressures controlled, Isosorbide dintrate not administered with holding parameters (9) Diabetes Status: Chronic Problem Specific Plan: Monitor Clinically Problem Text: insulin (10) Seizure disorder Status: Chronic Problem Specific Plan: Monitor Clinically Problem Text: depakote (11) Hypothyroidism Status: Chronic Problem Specific Plan: Monitor Clinically Problem Text: synthroid (12) Gout Status: Chronic Problem Specific Plan: Monitor Clinically Problem Text: allopurinol, colchicine (13) GERD (gastroesophageal reflux disease) Status: Chronic Problem Text: prilosec (14) CKD (chronic kidney disease) Status: Chronic (15) Afib Status: Chronic Problem Text: rate controlled - zebeta with hold parameters a/c with pradaxa Plan/VTE VTE Prophylaxis Ordered?: Yes Plan Diet: Continue Current Activity: Continue Current Therapy: PT Respiratory: Wean Oxygen Diagnostics: Repeat Labs in AM VS[facility] Vital Signs Date Time Temp Pulse Resp B/P (MAP) Pulse Ox O2 Delivery O2 Flow Rate FiO2 09/21/16 06:00 97.8 60 19 100/64 (76) 90 Nasal Cannula 2.0 I&O- Last 24 Hours up to 6 AM 09/21/16 06:00 Intake Total 880 ml Output Total 0 ml Balance 880 ml Laboratory Data 24H LABS Laboratory Tests 2 09/20/16 11:34: Bedside Glucose (Misc Panel) 164H 09/20/16 16:49: Bedside Glucose (Misc Panel) 213H 09/20/16 20:30: Bedside Glucose (Misc Panel) 234H 09/21/16 05:45: White Blood Count 4.8, Red Blood Count 4.15L, Hemoglobin 12.2L, Hematocrit 40.1L , Mean Corpuscular Volume 96.7H, Mean Corpuscular Hemoglobin 29.3, Mean Corpuscular Hemoglobin Concent 30.3L, Red Cell Distribution Width 15.4H, Platelet Count 127L, Neutrophils (%) (Auto) 64.7, Lymphocytes (%) (Auto) 13.2L, Monocytes (%) (Auto) 10.3H, Eosinophils (%) (Auto) 8.5H, Basophils (%) (Auto) 0.4, Neutrophils # (Auto) 3.1, Lymphocytes # (Auto) 0.8L, Monocytes # (Auto) 0.5 , Eosinophils # (Auto) 0.4, Basophils # (Auto) 0.0, Large Unclassified Cells % 2.9, Large Unclassified Cells # 0.1, Anion Gap 8, Glomerular Filtration Rate > 60.0, Blood Urea Nitrogen 39H, Creatinine 1.21, Sodium Level 146H, Potassium Level 4.5, Chloride Level 110H, Carbon Dioxide Level 28, Calcium Level 8.7L CBC/BMP Laboratory Tests 09/21/16 05:45 Red Blood Count 4.15 L, Mean Corpuscular Volume 96.7 H, Mean Corpuscular Hemoglobin 29.3, Mean Corpuscular Hemoglobin Concent 30.3 L, Red Cell Distribution Width 15.4 H, Neutrophils (%) (Auto) 64.7, Lymphocytes (%) (Auto) 13.2 L, Monocytes (%) (Auto) 10.3 H, Eosinophils (%) (Auto) 8.5 H, Basophils (% ) (Auto) 0.4, Neutrophils # (Auto) 3.1, Lymphocytes # (Auto) 0.8 L, Monocytes # (Auto) 0.5, Eosinophils # (Auto) 0.4, Basophils # (Auto) 0.0, Calcium Level 8.7 L Microbiology Microbiology 09/13/16 Blood Culture - Final, Complete NO GROWTH AFTER 5 DAYS 09/13/16 Blood Culture - Final, Complete NO GROWTH AFTER 5 DAYS 09/17/16 Urine Culture - Final, Complete ELIDA PALMA MD Sep 21, 2016 08:47
[2016-09-21] MEDS: ISOSORBIDE DIN. (ISORDIL) 5 MG TAB PO SCH (09:00)
[2016-09-21 10:00] VITALS: BP 101/64
[2016-09-21] MEDS: HumaLOG INSULIN (NovoLOG) PER UNIT SC SCH ×4 (10:30→20:38)
[2016-09-21] MEDS: LEVEMIR (INSULIN DETEMIR) 1 UNITS/0.01ML SC SCH ×2 (10:31→20:39)
[2016-09-21] MEDS: DOXYCYCLINE HYCLATE 100 MG TAB PO SCH ×2 (10:33→20:36)
[2016-09-21] MEDS: DIVALPROEX 500MG *ER* TAB PO SCH ×2 (10:33→21:00)
[2016-09-21] MEDS: GABAPENTIN 300 MG CAP PO SCH ×2 (10:33→20:36)
[2016-09-21] MEDS: COLCHICINE 0.6 MG TAB PO SCH ×2 (10:33→20:36)
[2016-09-21] MEDS: DABIGATRAN ETEXILATE 75 MG CAP (PRADAXA) PO SCH ×2 (10:33→20:46)
[2016-09-21] MEDS: CLOTRIMAZOLE 1% TOPICAL CREAM 30GM TOP SCH ×4 (10:34→20:39)
[2016-09-21] MEDS: NYSTATIN 100,000 UNITS/GM TOPICAL PWD 15 GM TOP SCH ×2 (10:34→20:39)
[2016-09-21 14:00] VITALS: BP 124/73
[2016-09-21 18:00] VITALS: BP 119/72
[2016-09-21 19:52] LABS: ABG BASE EXCESS 0.5 (-2.0-2.0); ABG HCO3 25.4 MEQ/L (22.0-26.0); ABG PARTIAL PRESSURE CO2 41.6 mmHg (35.0-45.0); ABG PARTIAL PRESSURE O2 69.4 mmHg (75.0-100.0); ABG STANDARD HCO3 24.9 MEQ/L (22.0-26.0); ABG TOTAL CO2 26.6 MEQ/L (23.0-31.0); ABG pH (ARTERIAL) 7.403 UNITS (7.350-7.450)
--- NOTE | 2016-09-21 20:05 | REP ---
HISTORY: Dyspnea. COMPARISON: Eight days ago. There is no significant change from the prior exam. The technique utilized in obtaining the radiograph has magnified the cardiac silhouette and accentuated the interstitial markings. There is cardiomegaly. There is interstitial fibrotic changes, status quo. There is no change in the appearance of the pacemaker or lead. There is no change in the osseous structures. IMPRESSION: No change from 09/13/2016. Signed by Leland Bishop DO 09/22/2016 09:16 A
[2016-09-21] MEDS: ASCORBIC ACID 500 MG TAB PO SCH (20:36)
[2016-09-21] MEDS: ALLOPURINOL 300 MG TAB PO SCH (20:36)
[2016-09-21] MEDS: ASPIRIN 81 MG ENTERIC TAB PO SCH (20:36)
[2016-09-21] MEDS: OMEPRAZOLE 20 MG CAP PO SCH (20:37)
[2016-09-21] MEDS: BISOPROLOL FUMARATE 10 MG TAB PO SCH (20:37)
[2016-09-21] MEDS: VITAMIN D 1,000 INTERNATIONAL UNITS TABLET PO SCH (20:37)
[2016-09-21] MEDS: COLESEVELAM 625 MG TAB (WELCHOL) PO SCH (20:38)
[2016-09-21 22:00] VITALS: BP 112/69
[2016-09-22] MEDS: LACTULOSE 20 GM/30 ML SYRUP UD PO SCH ×3 (00:24→21:49)
[2016-09-22 02:00] VITALS: BP 100/63
[2016-09-22] MEDS: IPRATROPIUM 0.5MG/ALBUTEROL 2.5MG INH SOL UD 3ML (DUONEB)(J7620) NEB SCH ×4 (02:00→20:00)
[2016-09-22 05:10] LABS: BASO % 0.5 % (0.0-1.0); EOS # 0.4 K/mm3 (0.0-0.50); EOS % 9.4 % (0.0-3.0); LARGE UNSTAINED CELL # 0.1 K/mm3 (0.0-0.4); LARGE UNSTAINED CELL % 3.1 % (0.0-4.0); LYMPH # 0.7 K/mm3 (1.5-4.5); LYMPH % 13.6 % (24.0-44.0); MEAN CORPUSCULAR HEMOGLOBIN 29.4 pg (27.0-33.0); MEAN CORPUSCULAR HGB CONC 30.6 g/dl (32.0-36.5); MONO # 0.5 K/mm3 (0.0-0.8); MONO % 11.9 % (0.0-5.0); NEUTROPHILS # 2.7 K/mm3 (1.8-7.7); NEUTROPHILS % 61.5 % (36.0-66.0); PLATELET COUNT, AUTOMATED 117 k/mm3 (150-450); RED CELL DISTRIBUTION WIDTH 15.5 % (11.5-14.5); WHITE BLOOD COUNT 4.4 K/mm3 (4.0-10.0)
[2016-09-22] MEDS: LEVOTHYROXINE 75MCG TABLET (0.075MG) PO SCH (05:18)
[2016-09-22] MEDS: LEVOTHYROXINE 100MCG TABLET (0.1MG) PO SCH (05:18)
[2016-09-22 05:31] LABS: CALCIUM LEVEL 8.6 MG/DL (8.8-10.2); CREATININE FOR GFR 1.27 MG/DL (0.70-1.30); GLOMERULAR FILTRATION RATE 59.5 (>42); POTASSIUM SERUM 4.7 MEQ/L (3.5-5.1)
[2016-09-22 06:00] VITALS: BP 112/73
[2016-09-22] MEDS: DABIGATRAN ETEXILATE 75 MG CAP (PRADAXA) PO SCH ×2 (08:20→21:54)
[2016-09-22] MEDS: GABAPENTIN 300 MG CAP PO SCH ×2 (08:21→21:54)
[2016-09-22] MEDS: DIVALPROEX 500MG *ER* TAB PO SCH ×2 (08:21→21:53)
[2016-09-22] MEDS: DOXYCYCLINE HYCLATE 100 MG TAB PO SCH ×2 (08:21→21:53)
[2016-09-22] MEDS: LEVEMIR (INSULIN DETEMIR) 1 UNITS/0.01ML SC SCH ×2 (08:23→21:56)
[2016-09-22] MEDS: ISOSORBIDE DIN. (ISORDIL) 5 MG TAB PO SCH (08:24)
[2016-09-22] MEDS: HumaLOG INSULIN (NovoLOG) PER UNIT SC SCH ×4 (08:24→21:00)
[2016-09-22] MEDS: COLCHICINE 0.6 MG TAB PO SCH ×2 (08:24→21:00)
[2016-09-22] MEDS: CLOTRIMAZOLE 1% TOPICAL CREAM 30GM TOP SCH ×4 (08:25→21:00)
[2016-09-22] MEDS: NYSTATIN 100,000 UNITS/GM TOPICAL PWD 15 GM TOP SCH ×2 (09:00→21:50)
--- NOTE | 2016-09-22 09:14 | IPNPDOC ---
Subjective Date Seen The patient was seen on 09/22/16. Subjective Chief Complaint/HPI The patient is a 71-year-old male admitted with a reason for visit of Encephalopathy;Leg Pain. General: Denies: ROS Unobtainable, Chills, Night Sweats, Fatigue, Malaise, Normal Appetite, Other Symptoms Constitutional: Denies: Chills, Fever, Malaise, Night Sweats, Weakness, Fatigue , Weight Loss, Lethargy, Other Eyes: Denies: Pain, Vision change, Conjunctivae inflammation, Eyelid inflammation, Redness, Other ENT: Denies: Head Aches, Ear Pain, Dysphagia, Sinus Congestion, Post Nasal Drip , Sore Throat, Epistaxis, Other Symptoms Skin: Denies: Rash, Lesions, Jaundice, Bruising, Itching, Dry, Breakdown, Nail Changes, Other Pulmonary: Denies: Dyspnea, Cough, Pleuritic Chest Pain, Other Symptoms Cardiovascular: Denies: Chest Pain, Palpitations, Orthopnea, Paroxysmal Noc. Dyspnea, Edema, Lt Headedness, Other Symptoms Gastrointestinal: Denies: Nausea, Vomiting, Abdominal Pain, Diarrhea, Constipation, Melena, Hematochezia, Other Symptoms Genitourinary: Denies: Dysuria, Frequency, Incontinence, Hematuria, Retention, Other Symptoms Objective Physical Examination General Exam: Positive: Alert, Cooperative, No Acute Distress Eye Exam: Positive: PERRLA Chest Exam: Positive: Clear to auscultation, Normal air movement Heart Exam: Positive: Regular Rhythm, Irregular Rhythm, Murmurs Abdomen Exam: Positive: Normal bowel sounds, Soft, Negative: Tenderness Extremity Exam: Positive: Edema Psych Exam: Positive: Oriented x 3 Assessment /Plan Problems (1) Cellulitis Status: Acute Response to Treatment: Improving Discussed With: Patient Problem Specific Plan: Monitor Clinically Problem Text: DC Ceftaroline - transitioned to doxycycline. (2) Respiratory distress Status: Acute Discussed With: Patient Problem Specific Plan: Monitor Clinically Problem Text: Continue to wean O2. Patient states does not use supplemental O2 at home. ABG unrevealing. CT chest unrevealing. Possibly PINKY complicated OHS. IS, acapella. (3) CHF (congestive heart failure) Status: Chronic Response to Treatment: Compensated Discussed With: Patient Problem Specific Plan: Monitor Clinically (4) PINKY (obstructive sleep apnea) Status: Chronic Discussed With: Patient Problem Specific Plan: Monitor Clinically Problem Text: Uses CPAP at night. (5) Encephalopathy Status: Resolved Problem Text: Was confused yesterday. ABG WNL. Ammonia elevated, responded to lactulose. Appears back to baseline today. (6) Hypermagnesemia Problem Specific Plan: Monitor Clinically, Repeat Labs Problem Text: D/C oral mag supplements. D/C MVI. (7) AV block Status: Chronic Problem Text: s/p PPM (8) HTN (hypertension) Status: Chronic Discussed With: Patient Problem Specific Plan: Monitor Clinically Problem Text: Pressures controlled, Isosorbide dintrate not administered with holding parameters (9) Diabetes Status: Chronic Problem Specific Plan: Monitor Clinically Problem Text: insulin (10) Seizure disorder Status: Chronic Problem Specific Plan: Monitor Clinically Problem Text: depakote (11) Hypothyroidism Status: Chronic Problem Specific Plan: Monitor Clinically Problem Text: synthroid (12) Gout Status: Chronic Problem Specific Plan: Monitor Clinically Problem Text: allopurinol, colchicine (13) GERD (gastroesophageal reflux disease) Status: Chronic Problem Text: prilosec (14) CKD (chronic kidney disease) Status: Chronic (15) Afib Status: Chronic Problem Text: rate controlled - zebeta with hold parameters a/c with pradaxa Plan/VTE VTE Prophylaxis Ordered?: Yes Plan Diet: Continue Current Activity: Continue Current Therapy: PT Respiratory: Wean Oxygen Diagnostics: Repeat Labs in AM VS, I&O, 24H, Fishbone Vital Signs/I&O Vital Signs Date Time Temp Pulse Resp B/P (MAP) Pulse Ox O2 Delivery O2 Flow Rate FiO2 09/22/16 08:24 109/67 09/22/16 06:00 97.7 60 18 93 Nasal Cannula 2.0 I&O- Last 24 Hours up to 6 AM 09/22/16 06:00 Intake Total 840 ml Output Total 0 ml Balance 840 ml Laboratory Data 24H LABS Laboratory Tests 2 09/21/16 19:30: Blood Gas Bicarbonate Standard 24.9, Arterial Blood pH 7.403, Arterial Blood Partial Pressure CO2 41.6, Arterial Blood Partial Pressure O2 69.4L, Arterial Blood Total CO2 26.6, Arterial Blood HCO3 25.4, Arterial Blood Base Excess 0.5, Arterial Blood Oxygen Saturation 93.6L 09/21/16 22:08: Ammonia 70H, Valproic Acid (Depakene) Level 71.0 09/22/16 00:09: Ammonia 75H 09/22/16 02:42: Bedside Glucose (Misc Panel) 142H 09/22/16 04:50: White Blood Count 4.4, Red Blood Count 4.23L, Hemoglobin 12.5L, Hematocrit 40.7L , Mean Corpuscular Volume 96.0, Mean Corpuscular Hemoglobin 29.4, Mean Corpuscular Hemoglobin Concent 30.6L, Red Cell Distribution Width 15.5H, Platelet Count 117L, Neutrophils (%) (Auto) 61.5, Lymphocytes (%) (Auto) 13.6L, Monocytes (%) (Auto) 11.9H, Eosinophils (%) (Auto) 9.4H, Basophils (%) (Auto) 0.5, Neutrophils # (Auto) 2.7, Lymphocytes # (Auto) 0.7L, Monocytes # (Auto) 0.5 , Eosinophils # (Auto) 0.4, Basophils # (Auto) 0.0, Large Unclassified Cells % 3.1, Large Unclassified Cells # 0.1, Anion Gap 8, Glomerular Filtration Rate 59.5, Blood Urea Nitrogen 41H, Creatinine 1.27, Sodium Level 143, Potassium Level 4.7, Chloride Level 109H, Carbon Dioxide Level 26, Calcium Level 8.6L, Ammonia 35H CBC/BMP Laboratory Tests 09/22/16 04:50 Red Blood Count 4.23 L, Mean Corpuscular Volume 96.0, Mean Corpuscular Hemoglobin 29.4, Mean Corpuscular Hemoglobin Concent 30.6 L, Red Cell Distribution Width 15.5 H, Neutrophils (%) (Auto) 61.5, Lymphocytes (%) (Auto) 13.6 L, Monocytes (%) (Auto) 11.9 H, Eosinophils (%) (Auto) 9.4 H, Basophils (% ) (Auto) 0.5, Neutrophils # (Auto) 2.7, Lymphocytes # (Auto) 0.7 L, Monocytes # (Auto) 0.5, Eosinophils # (Auto) 0.4, Basophils # (Auto) 0.0, Calcium Level 8.6 L Microbiology Microbiology 09/13/16 Blood Culture - Final, Complete NO GROWTH AFTER 5 DAYS 09/13/16 Blood Culture - Final, Complete NO GROWTH AFTER 5 DAYS 09/17/16 Urine Culture - Final, Complete ELIDA PALMA MD Sep 22, 2016 09:14
[2016-09-22 10:00] VITALS: BP 124/77
[2016-09-22 14:00] VITALS: BP 117/68
[2016-09-22 18:00] VITALS: BP 129/68
[2016-09-22] MEDS: ASCORBIC ACID 500 MG TAB PO SCH (21:50)
[2016-09-22] MEDS: COLESEVELAM 625 MG TAB (WELCHOL) PO SCH (21:51)
[2016-09-22] MEDS: OMEPRAZOLE 20 MG CAP PO SCH (21:51)
[2016-09-22] MEDS: ALLOPURINOL 300 MG TAB PO SCH (21:52)
[2016-09-22] MEDS: VITAMIN D 1,000 INTERNATIONAL UNITS TABLET PO SCH (21:52)
[2016-09-22] MEDS: ASPIRIN 81 MG ENTERIC TAB PO SCH (21:53)
[2016-09-22] MEDS: BISOPROLOL FUMARATE 10 MG TAB PO SCH (21:55)
[2016-09-22 22:00] VITALS: BP 114/62
[2016-09-23 02:00] VITALS: BP 107/63
[2016-09-23] MEDS: IPRATROPIUM 0.5MG/ALBUTEROL 2.5MG INH SOL UD 3ML (DUONEB)(J7620) NEB SCH ×4 (02:00→20:13)
[2016-09-23] MEDS: LEVOTHYROXINE 100MCG TABLET (0.1MG) PO SCH (05:50)
[2016-09-23] MEDS: LEVOTHYROXINE 75MCG TABLET (0.075MG) PO SCH (05:50)
[2016-09-23 06:00] VITALS: BP 170/79
[2016-09-23 06:13] LABS: BASO % 0.7 % (0.0-1.0); EOS # 0.4 K/mm3 (0.0-0.50); EOS % 10.3 % (0.0-3.0); LARGE UNSTAINED CELL # 0.2 K/mm3 (0.0-0.4); LARGE UNSTAINED CELL % 4.2 % (0.0-4.0); LYMPH # 0.8 K/mm3 (1.5-4.5); LYMPH % 17.2 % (24.0-44.0); MEAN CORPUSCULAR HEMOGLOBIN 30.5 pg (27.0-33.0); MEAN CORPUSCULAR HGB CONC 31.6 g/dl (32.0-36.5); MEAN CORPUSCULAR VOLUME 96.4 fl (80.0-96.0); MONO # 0.4 K/mm3 (0.0-0.8); MONO % 11.9 % (0.0-5.0); NEUTROPHILS % 55.6 % (36.0-66.0); PLATELET COUNT, AUTOMATED 116 k/mm3 (150-450); RED CELL DISTRIBUTION WIDTH 15.7 % (11.5-14.5); WHITE BLOOD COUNT 3.6 K/mm3 (4.0-10.0)
[2016-09-23 06:19] LABS: ANION GAP 9 MEQ/L (8-16); BLOOD UREA NITROGEN 42 MG/DL (7-18); CARBON DIOXIDE LEVEL 24 MEQ/L (21-32); CHLORIDE LEVEL 113 MEQ/L (98-107); CREATININE FOR GFR 1.19 MG/DL (0.70-1.30); GLOMERULAR FILTRATION RATE > 60.0 (>42); GLUCOSE, FASTING 125 MG/DL (83-110); POTASSIUM SERUM 4.6 MEQ/L (3.5-5.1); SODIUM LEVEL 146 MEQ/L (136-145)
[2016-09-23] MEDS: LEVEMIR (INSULIN DETEMIR) 1 UNITS/0.01ML SC SCH ×2 (08:01→21:31)
[2016-09-23] MEDS: HumaLOG INSULIN (NovoLOG) PER UNIT SC SCH ×4 (08:02→20:53)
[2016-09-23] MEDS: ISOSORBIDE DIN. (ISORDIL) 5 MG TAB PO SCH (08:02)
[2016-09-23] MEDS: GABAPENTIN 300 MG CAP PO SCH ×2 (08:03→21:29)
[2016-09-23] MEDS: DABIGATRAN ETEXILATE 75 MG CAP (PRADAXA) PO SCH ×2 (08:03→21:30)
[2016-09-23] MEDS: COLCHICINE 0.6 MG TAB PO SCH ×2 (08:04→21:30)
[2016-09-23] MEDS: DIVALPROEX 500MG *ER* TAB PO SCH ×2 (08:04→21:30)
[2016-09-23] MEDS: DOXYCYCLINE HYCLATE 100 MG TAB PO SCH ×2 (08:04→21:30)
[2016-09-23] MEDS: CLOTRIMAZOLE 1% TOPICAL CREAM 30GM TOP SCH ×4 (08:05→21:31)
[2016-09-23] MEDS: LACTULOSE 20 GM/30 ML SYRUP UD PO SCH ×2 (09:00→21:31)
[2016-09-23] MEDS: NYSTATIN 100,000 UNITS/GM TOPICAL PWD 15 GM TOP SCH ×2 (09:00→21:31)
[2016-09-23 10:00] VITALS: BP 124/64
--- NOTE | 2016-09-23 10:11 | IPNPDOC ---
Subjective Date Seen The patient was seen on 09/23/16. Subjective Chief Complaint/HPI The patient is a 71-year-old male admitted with a reason for visit of Encephalopathy;Leg Pain. General: Denies: ROS Unobtainable, Chills, Night Sweats, Fatigue, Malaise, Normal Appetite, Other Symptoms Constitutional: Denies: Chills, Fever, Malaise, Night Sweats, Weakness, Fatigue , Weight Loss, Lethargy, Other Eyes: Denies: Pain, Vision change, Conjunctivae inflammation, Eyelid inflammation, Redness, Other ENT: Denies: Head Aches, Ear Pain, Dysphagia, Sinus Congestion, Post Nasal Drip , Sore Throat, Epistaxis, Other Symptoms Skin: Denies: Rash, Lesions, Jaundice, Bruising, Itching, Dry, Breakdown, Nail Changes, Other Pulmonary: Denies: Dyspnea, Cough, Pleuritic Chest Pain, Other Symptoms Cardiovascular: Denies: Chest Pain, Palpitations, Orthopnea, Paroxysmal Noc. Dyspnea, Edema, Lt Headedness, Other Symptoms Gastrointestinal: Denies: Nausea, Vomiting, Abdominal Pain, Diarrhea, Constipation, Melena, Hematochezia, Other Symptoms Genitourinary: Denies: Dysuria, Frequency, Incontinence, Hematuria, Retention, Other Symptoms Objective Physical Examination General Exam: Positive: Alert, Cooperative, No Acute Distress Eye Exam: Positive: PERRLA Chest Exam: Positive: Clear to auscultation, Normal air movement Heart Exam: Positive: Regular Rhythm, Irregular Rhythm, Murmurs Abdomen Exam: Positive: Normal bowel sounds, Soft, Negative: Tenderness Extremity Exam: Positive: Edema Psych Exam: Positive: Oriented x 3 Assessment /Plan Problems (1) Cellulitis Status: Acute Response to Treatment: Improving Discussed With: Patient Problem Specific Plan: Monitor Clinically Problem Text: DC Ceftaroline - transitioned to doxycycline. (2) Respiratory distress Status: Acute Discussed With: Patient Problem Specific Plan: Monitor Clinically Problem Text: Continue to wean O2. Patient states does not use supplemental O2 at home. ABG unrevealing. CT chest unrevealing. Possibly PINKY complicated OHS. IS, acapella. (3) CHF (congestive heart failure) Status: Chronic Response to Treatment: Compensated Discussed With: Patient Problem Specific Plan: Monitor Clinically (4) PINKY (obstructive sleep apnea) Status: Chronic Discussed With: Patient Problem Specific Plan: Monitor Clinically Problem Text: Uses CPAP at night. (5) Encephalopathy Status: Resolved Problem Text: Ammonia elevated, responded to lactulose. Appears back to baseline. (6) Hypermagnesemia Problem Specific Plan: Monitor Clinically, Repeat Labs Problem Text: D/C oral mag supplements. D/C MVI. (7) AV block Status: Chronic Problem Text: s/p PPM (8) HTN (hypertension) Status: Chronic Discussed With: Patient Problem Specific Plan: Monitor Clinically Problem Text: Pressures controlled, Isosorbide dintrate not administered with holding parameters (9) Diabetes Status: Chronic Problem Specific Plan: Monitor Clinically Problem Text: insulin (10) Seizure disorder Status: Chronic Problem Specific Plan: Monitor Clinically Problem Text: depakote (11) Hypothyroidism Status: Chronic Problem Specific Plan: Monitor Clinically Problem Text: synthroid (12) Gout Status: Chronic Problem Specific Plan: Monitor Clinically Problem Text: allopurinol, colchicine (13) GERD (gastroesophageal reflux disease) Status: Chronic Problem Text: prilosec (14) CKD (chronic kidney disease) Status: Chronic (15) Afib Status: Chronic Problem Text: rate controlled - zebeta with hold parameters a/c with pradaxa Plan/VTE VTE Prophylaxis Ordered?: Yes (pradaxa) Plan Diet: Continue Current Activity: Continue Current Therapy: PT Respiratory: Wean Oxygen Diagnostics: Repeat Labs in AM VS, I&O, [facility]/I&O Vital Signs Date Time Temp Pulse Resp B/P (MAP) Pulse Ox O2 Delivery O2 Flow Rate FiO2 09/23/16 08:02 107/70 09/23/16 06:00 98.6 71 18 93 Nasal Cannula 2.0 I&O- Last 24 Hours up to 6 AM 09/23/16 06:00 Intake Total 600 ml Balance 600 ml Laboratory Data 24H LABS Laboratory Tests 2 09/22/16 11:27: Bedside Glucose (Misc Panel) 165H 09/22/16 16:22: Bedside Glucose (Misc Panel) 130H 09/22/16 20:56: Bedside Glucose (Misc Panel) 167H 09/23/16 05:33: White Blood Count 3.6L, Red Blood Count 3.95L, Hemoglobin 12.0L, Hematocrit 38.0L, Mean Corpuscular Volume 96.4H, Mean Corpuscular Hemoglobin 30.5, Mean Corpuscular Hemoglobin Concent 31.6L, Red Cell Distribution Width 15.7H, Platelet Count 116L, Neutrophils (%) (Auto) 55.6, Lymphocytes (%) (Auto) 17.2L, Monocytes (%) (Auto) 11.9H, Eosinophils (%) (Auto) 10.3H, Basophils (%) (Auto) 0.7, Neutrophils # (Auto) 2.0, Lymphocytes # (Auto) 0.8L, Monocytes # (Auto) 0.4 , Eosinophils # (Auto) 0.4, Basophils # (Auto) 0.0, Large Unclassified Cells % 4.2H, Large Unclassified Cells # 0.2, Anion Gap 9, Glomerular Filtration Rate > 60.0, Blood Urea Nitrogen 42H, Creatinine 1.19, Sodium Level 146H, Potassium Level 4.6, Chloride Level 113H, Carbon Dioxide Level 24, Calcium Level 9.0 CBC/BMP Laboratory Tests 09/23/16 05:33 Red Blood Count 3.95 L, Mean Corpuscular Volume 96.4 H, Mean Corpuscular Hemoglobin 30.5, Mean Corpuscular Hemoglobin Concent 31.6 L, Red Cell Distribution Width 15.7 H, Neutrophils (%) (Auto) 55.6, Lymphocytes (%) (Auto) 17.2 L, Monocytes (%) (Auto) 11.9 H, Eosinophils (%) (Auto) 10.3 H, Basophils (% ) (Auto) 0.7, Neutrophils # (Auto) 2.0, Lymphocytes # (Auto) 0.8 L, Monocytes # (Auto) 0.4, Eosinophils # (Auto) 0.4, Basophils # (Auto) 0.0, Calcium Level 9.0 Microbiology Microbiology 09/13/16 Blood Culture - Final, Complete NO GROWTH AFTER 5 DAYS 09/13/16 Blood Culture - Final, Complete NO GROWTH AFTER 5 DAYS 09/17/16 Urine Culture - Final, Complete ELIDA PALMA MD Sep 23, 2016 10:11
[2016-09-23 14:00] VITALS: BP 117/65
[2016-09-23 18:00] VITALS: BP 100/60
[2016-09-23] MEDS: BISOPROLOL FUMARATE 10 MG TAB PO SCH (20:52)
[2016-09-23] MEDS: COLESEVELAM 625 MG TAB (WELCHOL) PO SCH (21:29)
[2016-09-23] MEDS: ALLOPURINOL 300 MG TAB PO SCH (21:29)
[2016-09-23] MEDS: ASPIRIN 81 MG ENTERIC TAB PO SCH (21:30)
[2016-09-23] MEDS: ASCORBIC ACID 500 MG TAB PO SCH (21:30)
[2016-09-23] MEDS: VITAMIN D 1,000 INTERNATIONAL UNITS TABLET PO SCH (21:35)
[2016-09-23] MEDS: OMEPRAZOLE 20 MG CAP PO SCH (21:36)
[2016-09-23 22:00] VITALS: BP 102/58
[2016-09-24] VITALS (7 sets, daily range): BP systolic 100–137; BP diastolic 61–72
[2016-09-24] MEDS: IPRATROPIUM 0.5MG/ALBUTEROL 2.5MG INH SOL UD 3ML (DUONEB)(J7620) NEB SCH ×4 (02:00→20:41)
[2016-09-24] MEDS: LEVOTHYROXINE 100MCG TABLET (0.1MG) PO SCH (05:46)
[2016-09-24] MEDS: LEVOTHYROXINE 75MCG TABLET (0.075MG) PO SCH (05:47)
[2016-09-24 05:59] LABS: ANION GAP 10 MEQ/L (8-16); BLOOD UREA NITROGEN 40 MG/DL (7-18); CALCIUM LEVEL 9.2 MG/DL (8.8-10.2); CARBON DIOXIDE LEVEL 24 MEQ/L (21-32); CHLORIDE LEVEL 112 MEQ/L (98-107); CREATININE FOR GFR 1.08 MG/DL (0.70-1.30); GLOMERULAR FILTRATION RATE > 60.0 (>42); GLUCOSE, FASTING 123 MG/DL (83-110); POTASSIUM SERUM 4.5 MEQ/L (3.5-5.1); SODIUM LEVEL 146 MEQ/L (136-145)
[2016-09-24 06:00] LABS: ADD MANUAL DIFFER YES; MEAN CORPUSCULAR HEMOGLOBIN 30.3 pg (27.0-33.0); MEAN CORPUSCULAR HGB CONC 31.5 g/dl (32.0-36.5); MEAN CORPUSCULAR VOLUME 96.2 fl (80.0-96.0); PLATELET COUNT, AUTOMATED 123 k/mm3 (150-450); RED CELL DISTRIBUTION WIDTH 15.8 % (11.5-14.5)
[2016-09-24 06:47] LABS: BANDS 8 % (< 11); EOSINOPHILS 8 % (0-5)
[2016-09-24 06:48] LABS: ANISOCYTOSIS 1+; GIANT PLATELETS 1+
[2016-09-24] MEDS: DABIGATRAN ETEXILATE 75 MG CAP (PRADAXA) PO SCH ×2 (08:08→21:48)
[2016-09-24] MEDS: ISOSORBIDE DIN. (ISORDIL) 5 MG TAB PO SCH (08:09)
[2016-09-24] MEDS: GABAPENTIN 300 MG CAP PO SCH ×2 (08:11→21:47)
[2016-09-24] MEDS: DOXYCYCLINE HYCLATE 100 MG TAB PO SCH (08:11)
[2016-09-24] MEDS: DIVALPROEX 500MG *ER* TAB PO SCH ×2 (08:11→21:48)
[2016-09-24] MEDS: COLCHICINE 0.6 MG TAB PO SCH ×2 (08:11→21:49)
[2016-09-24] MEDS: LACTULOSE 20 GM/30 ML SYRUP UD PO SCH ×2 (08:12→21:49)
[2016-09-24] MEDS: CLOTRIMAZOLE 1% TOPICAL CREAM 30GM TOP SCH ×4 (08:13→21:49)
[2016-09-24] MEDS: NYSTATIN 100,000 UNITS/GM TOPICAL PWD 15 GM TOP SCH ×2 (08:14→21:50)
[2016-09-24] MEDS: LEVEMIR (INSULIN DETEMIR) 1 UNITS/0.01ML SC SCH ×2 (08:14→21:50)
[2016-09-24] MEDS: HumaLOG INSULIN (NovoLOG) PER UNIT SC SCH ×4 (08:15→21:22)
--- NOTE | 2016-09-24 08:25 | IPNPDOC ---
Subjective Date Seen The patient was seen on 09/24/16. Subjective Chief Complaint/HPI The patient is a 71-year-old male admitted with a reason for visit of Encephalopathy;Leg Pain. General: Denies: ROS Unobtainable, Chills, Night Sweats, Fatigue, Malaise, Normal Appetite, Other Symptoms Constitutional: Denies: Chills, Fever, Malaise, Night Sweats, Weakness, Fatigue , Weight Loss, Lethargy, Other Eyes: Denies: Pain, Vision change, Conjunctivae inflammation, Eyelid inflammation, Redness, Other ENT: Denies: Head Aches, Ear Pain, Dysphagia, Sinus Congestion, Post Nasal Drip , Sore Throat, Epistaxis, Other Symptoms Skin: Denies: Rash, Lesions, Jaundice, Bruising, Itching, Dry, Breakdown, Nail Changes, Other Pulmonary: Denies: Dyspnea, Cough, Pleuritic Chest Pain, Other Symptoms Cardiovascular: Denies: Chest Pain, Palpitations, Orthopnea, Paroxysmal Noc. Dyspnea, Edema, Lt Headedness, Other Symptoms Gastrointestinal: Denies: Nausea, Vomiting, Abdominal Pain, Diarrhea, Constipation, Melena, Hematochezia, Other Symptoms Genitourinary: Denies: Dysuria, Frequency, Incontinence, Hematuria, Retention, Other Symptoms Objective Physical Examination General Exam: Positive: Alert, Cooperative, No Acute Distress Eye Exam: Positive: PERRLA Chest Exam: Positive: Clear to auscultation, Normal air movement Heart Exam: Positive: Regular Rhythm, Irregular Rhythm, Murmurs Abdomen Exam: Positive: Normal bowel sounds, Soft, Negative: Tenderness Extremity Exam: Positive: Edema Psych Exam: Positive: Oriented x 3 Assessment /Plan Problems (1) Cellulitis Status: Acute Response to Treatment: Improving Discussed With: Patient Problem Specific Plan: Monitor Clinically Problem Text: DC Ceftaroline - transitioned to doxycycline. (2) Respiratory distress Status: Acute Discussed With: Patient Problem Specific Plan: Monitor Clinically Problem Text: Continue to wean O2. Patient states does not use supplemental O2 at home. ABG unrevealing. CT chest unrevealing. Possibly PINKY complicated OHS. IS, acapella. (3) CHF (congestive heart failure) Status: Chronic Response to Treatment: Compensated Discussed With: Patient Problem Specific Plan: Monitor Clinically (4) PINKY (obstructive sleep apnea) Status: Chronic Discussed With: Patient Problem Specific Plan: Monitor Clinically Problem Text: Uses CPAP at night. (5) Encephalopathy Status: Resolved Problem Text: Ammonia elevated, responded to lactulose. Still waxes and wanes, no clear reversible etiology. Check TSH, CT head, d/c doxy - possibly started when abx was switch to doxy. (6) Hypermagnesemia Problem Specific Plan: Monitor Clinically, Repeat Labs Problem Text: D/C oral mag supplements. D/C MVI. (7) AV block Status: Chronic Problem Text: s/p PPM (8) HTN (hypertension) Status: Chronic Discussed With: Patient Problem Specific Plan: Monitor Clinically Problem Text: Pressures controlled, Isosorbide dintrate not administered with holding parameters (9) Diabetes Status: Chronic Problem Specific Plan: Monitor Clinically Problem Text: insulin (10) Seizure disorder Status: Chronic Problem Specific Plan: Monitor Clinically Problem Text: depakote (11) Hypothyroidism Status: Chronic Problem Specific Plan: Monitor Clinically Problem Text: synthroid (12) Gout Status: Chronic Problem Specific Plan: Monitor Clinically Problem Text: allopurinol, colchicine (13) GERD (gastroesophageal reflux disease) Status: Chronic Problem Text: prilosec (14) CKD (chronic kidney disease) Status: Chronic (15) Afib Status: Chronic Problem Text: rate controlled - zebeta with hold parameters a/c with pradaxa Plan/VTE VTE Prophylaxis Ordered?: Yes (pradaxa) Plan Diet: Continue Current Activity: Continue Current Therapy: PT Respiratory: Wean Oxygen Diagnostics: Repeat Labs in AM continue to wean O2. continue with PT. VS, I&O, 24H, Fishbone Vital Signs/I&O Vital Signs Date Time Temp Pulse Resp B/P (MAP) Pulse Ox O2 Delivery O2 Flow Rate FiO2 09/24/16 06:00 98.5 71 16 134/68 (90) 91 Nasal Cannula 2.0 I&O- Last 24 Hours up to 6 AM 09/24/16 06:00 Intake Total 960 ml Output Total 280 ml Balance 680 ml Laboratory Data 24H LABS Laboratory Tests 2 09/23/16 11:21: Bedside Glucose (Misc Panel) 131H 09/23/16 13:56: Ammonia 32 09/23/16 16:23: Bedside Glucose (Misc Panel) 137H 09/23/16 20:31: Bedside Glucose (Misc Panel) 174H 09/24/16 04:43: Neutrophils 29L, Band Neutrophils 8, Lymphocytes (Manual) 41, Monocytes (Manual ) 11H, Eosinophils (Manual) 8H, Myelocytes 2H, Atypical Lymphocytes 1, Platelet Estimate NORMAL, Giant Platelets 1+, Anisocytosis 1+, Anion Gap 10, Glomerular Filtration Rate > 60.0, Blood Urea Nitrogen 40H, Creatinine 1.08, Sodium Level 146H, Potassium Level 4.5, Chloride Level 112H, Carbon Dioxide Level 24, Calcium Level 9.2 CBC/BMP Laboratory Tests 09/24/16 04:43 Red Blood Count 4.10 L, Mean Corpuscular Volume 96.2 H, Mean Corpuscular Hemoglobin 30.3, Mean Corpuscular Hemoglobin Concent 31.5 L, Red Cell Distribution Width 15.8 H, Calcium Level 9.2 Microbiology Microbiology 09/17/16 Urine Culture - Final, Complete ELIDA PALMA MD Sep 24, 2016 08:25
--- NOTE | 2016-09-24 11:49 | REP ---
CT Head without contrast HISTORY: Altered mental status COMPARISON: 09/13/2016 Areas of decreased attenuation are present in the periventricular and subcortical white matter. This represents small-vessel ischemic disease. There is no intraparenchymal hemorrhage, acute infarct, mass or midline shift. The ventricular system and cortical sulci are dilated consistent with moderate volume loss. There is no extra cerebral collection. There is no fracture. The visualized sinuses are clear. IMPRESSION: 1. Small vessel ischemic disease. 2. Moderate volume loss. Signed by Brayden Anderson MD 09/24/2016 11:40 A
[2016-09-24 14:46] LABS: ABG BASE EXCESS -3.1 (-2.0-2.0); ABG HCO3 20.4 MEQ/L (22.0-26.0); ABG PARTIAL PRESSURE CO2 31.8 mmHg (35.0-45.0); ABG PARTIAL PRESSURE O2 59.7 mmHg (75.0-100.0); ABG STANDARD HCO3 21.8 MEQ/L (22.0-26.0); ABG TOTAL CO2 21.3 MEQ/L (23.0-31.0); ABG pH (ARTERIAL) 7.424 UNITS (7.350-7.450)
[2016-09-24 15:23] LABS: INR 1.52
[2016-09-24] MEDS: ACETAMINOPHEN TAB 650MG DOSE (2X325MG) PO PRN (19:32)
--- NOTE | 2016-09-24 20:17 | CR ---
DATE OF CONSULTATION: 09/24/2016 REFERRING PROVIDER: Dr. Brayden Moreno REASON FOR CONSULTATION: Altered mental status. HISTORY OF PRESENT ILLNESS: Leland Bassett is a 71-year-old male with past medical history significant for chronic obstructive pulmonary disease (COPD), obstructive sleep apnea, diastolic congestive heart failure, atrial fibrillation on Pradaxa, history of coronary artery disease on aspirin, with hypertension, diabetes, history of seizure disorder currently on Depakote 500 in the morning and 1000 mg extended release at bedtime, who was admitted to [facility] with cellulitis of the right lower extremity. During this stay the patient had confusion which improved with treatment of his cellulitis with antibiotics. The patient's doxycycline was discontinued today. The patient has been having waxing and waning cognitive mental status. The patient is not agitated. He gets confused as to where he is at times. The patient is lethargic and tired. He was noted to be hypoxic today on ABG and his oxygen levels were increased. The patient is on 2 liters nasal cannula. The patient is having chronic right shoulder pain. He is oriented to his name but he does not answer questions to orient himself to place and date. His daughter and son-in-law are at bedside to provide history. The patient follows with [facility] and is followed by Hilda Jensen for possible seizure disorder. The patient was scheduled to have an EEG tomorrow. He had a head CT twice during this admission without any significant acute intracranial pathology. He has moderate volume loss with small-vessel ischemic disease. Latest head CT was completed today on 09/24/2016. The patient has elevated ammonia level of 33. Initially when he came in his ammonia level was 21. The highest it became during the admission was 75. It is trending downward and is currently 33. The patient had slightly elevated sodium content of 146. He is having some pancytopenia. The patient has normal TSH at 1.31. His valproic acid level has been therapeutic at 70.3. His urinalysis was negative for any infection. The patient is likely having delirium with probable baseline chronic dementia. This could be related to the patient being on antibiotics, possibly from the elevated ammonia level which is declining. The patient likely has a metabolic encephalopathy. PAST MEDICAL HISTORY: COPD, obstructive sleep apnea, diastolic congestive heart failure, atrial fibrillation on Pradaxa, AV (atrioventricular) block status post pacemaker (PM), hypertension, diabetes type 2, seizure disorder, hypothyroidism, gout, obesity, gastroesophageal reflux disease, retinal detachment of the right eye, macular degeneration of the left eye, chronic venous stasis dermatitis, tremors, CKD stage III, pulmonary hypertension, hydrocele and varicocele on the left. ALLERGIES: VALSARTAN, ATORVASTATIN, QUINOLONES. PAST SURGICAL HISTORY: Pacemaker placement, bilateral knee surgery, left leg fracture and hardware, testicular cancer removal, cholecystectomy. SOCIAL HISTORY: The patient does not use alcohol or illicit drugs. He is a former smoker. He lives alone. FAMILY HISTORY: Noncontributory. CURRENT MEDICATIONS: - glucosamine 1500 mg complex one capsule by mouth twice a day - allopurinol 300 mg by mouth nightly - ascorbic acid 1000 mg by mouth nightly - aspirin 81 mg by mouth nightly - bisoprolol fumarate 10 mg by mouth nightly - colchicine 0.6 mg by mouth twice a day - colesevelam-hydrochloride 3750 mg by mouth nightly - dabigatran (Pradaxa) 150 mg by mouth twice a day - valproic sodium (Depakote ER) 500 mg and 1000 mg by mouth nightly - gabapentin 600 mg by mouth twice a day (the patient has not yet started this dosage, the patient was taking 100 mg by mouth twice a day, the patient could not tolerate 100 mg by mouth three times a day due to cognitive changes in the past) - insulin Levemir subcutaneous twice a day - isosorbide dinitrate 5 mg by mouth daily - levothyroxine 175 mcg by mouth daily - magnesium oxide 400 mg by mouth twice a day - multivitamin by mouth nightly - nystatin powder topical twice a day - omeprazole 40 mg by mouth nightly - sitagliptin phosphate (Januvia) 100 mg by mouth nightly - spironolactone 25 mg by mouth daily - torsemide 100 mg by mouth twice a day - vitamin D 2000 international units nightly PHYSICAL EXAMINATION: Blood pressure is 125/68, pulse rate 60, respiratory rate is 18, oxygenation 94% on 2 liters nasal cannula. Current height 62 inches, current weight is 115.3 kg. The patient is alert, oriented to his name. He is not able to participate in most of the examination in regards to cognitive status. He is able to speak. He is not able to complete sentences at times, he loses his train of thought easily. He is confused at the baseline mildly and this has been gradually progressively getting worse over the past year. The patient is able to move all four extremities and demonstrate reasonable 5/5 strength throughout. Deep tendon reflexes are decreased throughout. Sensory is intact to light touch in all four extremities. The patient has pain at the right shoulder which is chronic with passive range of motion and active range of motion of the right shoulder. The patient does have tremors which are postural with mild asterixis noted. Gait deferred. ASSESSMENT: 1. Altered mental status likely related to metabolic encephalopathy with slowly improving ammonia level with recent cellulitis treated with antibiotics. Altered mental status may be a result of new medications. Baseline dementia with superimposed delirium secondary to infection, new drugs and new environment. 2. Plan on obtaining EEG to rule out seizures. Continue Depakote 500 mg every morning and 1000 mg by mouth nightly. Head CT does not reveal any acute stroke. MRI not possible as the patient has a pacemaker. Continue supportive care. The patient does not need any sedative medications or antipsychotic medications at this time, he is not agitated. I recommended to the nursing staff as well as the patient, his daughter and son-in-law that the patient should increase his oral intake of fluids and meals as the patient is hardly eating food and drinking fluids today. His oropharynx was quite dry. This is likely not helping the patient's acute delirium. Continue supportive care.
[2016-09-24] MEDS: COLESEVELAM 625 MG TAB (WELCHOL) PO SCH (21:47)
[2016-09-24] MEDS: VITAMIN D 1,000 INTERNATIONAL UNITS TABLET PO SCH (21:47)
[2016-09-24] MEDS: ASCORBIC ACID 500 MG TAB PO SCH (21:47)
[2016-09-24] MEDS: ASPIRIN 81 MG ENTERIC TAB PO SCH (21:47)
[2016-09-24] MEDS: ALLOPURINOL 300 MG TAB PO SCH (21:47)
[2016-09-24] MEDS: OMEPRAZOLE 20 MG CAP PO SCH (21:48)
[2016-09-24] MEDS: BISOPROLOL FUMARATE 10 MG TAB PO SCH (21:52)
[2016-09-25] MEDS: IPRATROPIUM 0.5MG/ALBUTEROL 2.5MG INH SOL UD 3ML (DUONEB)(J7620) NEB SCH ×4 (01:24→20:00)
[2016-09-25 02:00] VITALS: BP 138/83
[2016-09-25] MEDS: LEVOTHYROXINE 100MCG TABLET (0.1MG) PO SCH (05:30)
[2016-09-25] MEDS: LEVOTHYROXINE 75MCG TABLET (0.075MG) PO SCH (05:30)
[2016-09-25] MEDS: ANALGESIC BALM CRM 120 GM TOP PRN (05:51)
[2016-09-25] MEDS: ACETAMINOPHEN TAB 650MG DOSE (2X325MG) PO PRN ×2 (05:52→21:42)
[2016-09-25 06:00] VITALS: BP 118/72
[2016-09-25 06:09] LABS: BASO % 0.2 % (0.0-1.0); EOS # 0.1 K/mm3 (0.0-0.50); EOS % 2.9 % (0.0-3.0); LARGE UNSTAINED CELL # 0.3 K/mm3 (0.0-0.4); LARGE UNSTAINED CELL % 5.6 % (0.0-4.0); LYMPH # 0.9 K/mm3 (1.5-4.5); LYMPH % 12.5 % (24.0-44.0); MEAN CORPUSCULAR HEMOGLOBIN 30.1 pg (27.0-33.0); MEAN CORPUSCULAR HGB CONC 31.1 g/dl (32.0-36.5); MEAN CORPUSCULAR VOLUME 96.6 fl (80.0-96.0); MONO # 0.8 K/mm3 (0.0-0.8); MONO % 16.7 % (0.0-5.0); NEUTROPHILS # 2.9 K/mm3 (1.8-7.7); NEUTROPHILS % 62.1 % (36.0-66.0); PLATELET COUNT, AUTOMATED 129 k/mm3 (150-450); RED CELL DISTRIBUTION WIDTH 16.3 % (11.5-14.5); WHITE BLOOD COUNT 4.7 K/mm3 (4.0-10.0)
[2016-09-25 06:25] LABS: ANION GAP 9 MEQ/L (8-16); BLOOD UREA NITROGEN 38 MG/DL (7-18); CALCIUM LEVEL 9.4 MG/DL (8.8-10.2); CARBON DIOXIDE LEVEL 21 MEQ/L (21-32); CHLORIDE LEVEL 112 MEQ/L (98-107); CREATININE FOR GFR 0.97 MG/DL (0.70-1.30); GLOMERULAR FILTRATION RATE > 60.0 (>42); GLUCOSE, FASTING 169 MG/DL (83-110); POTASSIUM SERUM 4.9 MEQ/L (3.5-5.1); SODIUM LEVEL 142 MEQ/L (136-145)
[2016-09-25] MEDS: COLCHICINE 0.6 MG TAB PO SCH ×2 (08:07→21:42)
[2016-09-25] MEDS: ISOSORBIDE DIN. (ISORDIL) 5 MG TAB PO SCH (08:08)
[2016-09-25] MEDS: DABIGATRAN ETEXILATE 75 MG CAP (PRADAXA) PO SCH ×2 (08:08→21:42)
[2016-09-25] MEDS: GABAPENTIN 300 MG CAP PO SCH ×2 (08:08→21:42)
[2016-09-25] MEDS: DIVALPROEX 500MG *ER* TAB PO SCH ×2 (08:09→21:43)
[2016-09-25] MEDS: LEVEMIR (INSULIN DETEMIR) 1 UNITS/0.01ML SC SCH ×2 (08:10→21:45)
[2016-09-25] MEDS: HumaLOG INSULIN (NovoLOG) PER UNIT SC SCH ×4 (08:11→21:00)
[2016-09-25] MEDS: LACTULOSE 20 GM/30 ML SYRUP UD PO SCH ×2 (08:12→21:41)
[2016-09-25] MEDS: NYSTATIN 100,000 UNITS/GM TOPICAL PWD 15 GM TOP SCH ×2 (08:12→21:44)
[2016-09-25] MEDS: CLOTRIMAZOLE 1% TOPICAL CREAM 30GM TOP SCH ×4 (08:14→21:44)
[2016-09-25 10:00] VITALS: BP 92/56
[2016-09-25 14:00] VITALS: BP 123/78
--- NOTE | 2016-09-25 14:53 | IPNPDOC ---
Text Note Date of Service The patient was seen on 09/25/16. NOTE Subjective: Patient is a 71 year old male with a PMHx of COPD, PINKY, Diastolic CHF , A. fib (on Pradaxa), AV block (s/p PM), HTN, DM2, Seizure disorder, Hypothyroidism, Gout, Obesity, GERD, Retinal detachment of right / Macular degeneration of Left, Chronic venous stasis with stasis dermatitis, Tremors, CKD3, Pulmonary HTN, Hydrocele and varicocele on Left. Presented to the ER with complaints of right leg pain, warmth and redness, found to be 2/2 Cellulitis. He has completed therapy with Ceftaroline and Doxycycline. Patient was seen and examined at the bedside. Objective: Vitals (See below) General: Lying in bed, no acute distress, comfortable, AAOx1 (person only) HEENT: NC, AT CVS: RRR, +S1S2 Lungs: Fair air entry b/l, no appreciable wheezing Abdomen: Soft, ND, NT Extremities: - Edema, - Calf tenderness Assessment and plan: 1. s/p Right LE cellulitis - Redness, warmth and tenderness have resolved - Physical shows resolution or erythema / warmth / tenderness - No leukocytosis of elevation of lactic acid - s/p Antibiotics (Ceftaroline and Doxycycline) 2. Respiratory distress - possibly 2/2 fluid overload, PINKY / OHS - requiring supplemental oxygen - CT chest 09/18: No infiltrates, effusions or masses - CXR 09/22: unchanged - c/w supplemental oxygen and continue to titrate down - c/w acapella and incentive spirometry 3. Acute metabolic encephalopathy - possibly 2/2 medications 2/2 doxycycline; possibly 2/2 baseline dementia with superimposed delirium - has been taken off antibiotics - will continue to monitor - CT head 09/24: small vessel ischemic disease and moderate volume loss - appreciate Neurology's consultation 4. Chronic compensated diastolic CHF - appears compensated 5. PINKY - c/w CPAP at night 6. Hypermagnesemia - s/p Mg supplementation 7. AV block - s/p PM 8. HTN - BP well controlled; has been on lower side of normal - c/w Isosorbide dinitrate 9. DM2 - c/w ISS 10. Seizure disorder - c/w Depakote 11. Hypothyroidism - c/w Synthroid 12. Gout - c/w Allopurinol and Colchicine 13. s/p GERARDO - Cr now at baseline 14. A. fib - rate controlled with Bisoprolol with holding parameters - c/w anticoagulation with Pradaxa 15. GERD - c/w Prilosec 16. DVT prophylaxis - on full anticoagulation with Pradaxa VS,Fishbone, I+O VS, Fishbone, I+O Laboratory Tests 09/25/16 05:28 Red Blood Count 4.30, Mean Corpuscular Volume 96.6 H, Mean Corpuscular Hemoglobin 30.1, Mean Corpuscular Hemoglobin Concent 31.1 L, Red Cell Distribution Width 16.3 H, Neutrophils (%) (Auto) 62.1, Lymphocytes (%) (Auto) 12.5 L, Monocytes (%) (Auto) 16.7 H, Eosinophils (%) (Auto) 2.9, Basophils (%) ( Auto) 0.2, Neutrophils # (Auto) 2.9, Lymphocytes # (Auto) 0.9 L, Monocytes # ( Auto) 0.8, Eosinophils # (Auto) 0.1, Basophils # (Auto) 0.0, Calcium Level 9.4 Vital Signs Date Time Temp Pulse Resp B/P (MAP) Pulse Ox O2 Delivery O2 Flow Rate FiO2 09/25/16 11:59 Nasal Cannula 2.0 09/25/16 10:00 96.9 60 16 92/56 (05) 97 I&O- Last 24 Hours up to 6 AM 09/25/16 06:00 Intake Total 1020 ml Balance 1020 ml JOE HDEZ MD Sep 25, 2016 14:14
[2016-09-25] MEDS ORDERED: SODIUM CHLORIDE 0.9% 1000 ML IV ONE (15:00)
[2016-09-25 18:00] VITALS: BP 143/74
[2016-09-25] MEDS: BISOPROLOL FUMARATE 10 MG TAB PO SCH (21:00)
[2016-09-25] MEDS: NS 1,000 ML IV SCH (21:40)
[2016-09-25] MEDS: COLESEVELAM 625 MG TAB (WELCHOL) PO SCH (21:42)
[2016-09-25] MEDS: ASCORBIC ACID 500 MG TAB PO SCH (21:42)
[2016-09-25] MEDS: ASPIRIN 81 MG ENTERIC TAB PO SCH (21:42)
[2016-09-25] MEDS: OMEPRAZOLE 20 MG CAP PO SCH (21:42)
[2016-09-25] MEDS: ALLOPURINOL 300 MG TAB PO SCH (21:42)
[2016-09-25] MEDS: VITAMIN D 1,000 INTERNATIONAL UNITS TABLET PO SCH (21:43)
[2016-09-25 22:00] VITALS: BP 110/69
[2016-09-26] VITALS (7 sets, daily range): BP systolic 92–142; BP diastolic 60–79
[2016-09-26] MEDS: IPRATROPIUM 0.5MG/ALBUTEROL 2.5MG INH SOL UD 3ML (DUONEB)(J7620) NEB SCH ×4 (02:00→20:01)
[2016-09-26 03:58] LABS: ABG HCO3 21.6 MEQ/L (22.0-26.0); ABG PARTIAL PRESSURE CO2 33.3 mmHg (35.0-45.0); ABG PARTIAL PRESSURE O2 71.1 mmHg (75.0-100.0); ABG STANDARD HCO3 22.7 MEQ/L (22.0-26.0); ABG TOTAL CO2 22.6 MEQ/L (23.0-31.0)
[2016-09-26 04:14] LABS: ADD MANUAL DIFFER YES; MEAN CORPUSCULAR HEMOGLOBIN 29.8 pg (27.0-33.0); MEAN CORPUSCULAR HGB CONC 30.7 g/dl (32.0-36.5); PLATELET COUNT, AUTOMATED 113 k/mm3 (150-450); RED CELL DISTRIBUTION WIDTH 16.5 % (11.5-14.5); WHITE BLOOD COUNT 3.2 K/mm3 (4.0-10.0)
[2016-09-26 04:36] LABS: ALBUMIN 2.2 GM/DL (3.2-5.2); ALBUMIN/GLOBULIN RATIO 0.85 (1.00-1.93); ALKALINE PHOSPHATASE 178 U/L (45-117); ALT/SGPT 12 U/L (12-78); ANION GAP 9 MEQ/L (8-16); AST/SGOT 12 U/L (15-37); BLOOD UREA NITROGEN 46 MG/DL (7-18); CALCIUM LEVEL 8.8 MG/DL (8.8-10.2); CARBON DIOXIDE LEVEL 21 MEQ/L (21-32); CHLORIDE LEVEL 117 MEQ/L (98-107); CREATININE FOR GFR 1.13 MG/DL (0.70-1.30); GLOMERULAR FILTRATION RATE > 60.0 (>42); GLUCOSE, FASTING 133 MG/DL (83-110); POTASSIUM SERUM 4.7 MEQ/L (3.5-5.1); SODIUM LEVEL 147 MEQ/L (136-145); TOTAL PROTEIN 4.8 GM/DL (6.4-8.2)
[2016-09-26 05:04] LABS: EOSINOPHILS 5 % (0-5)
[2016-09-26 05:06] LABS: ANISOCYTOSIS 1+
[2016-09-26] MEDS: LEVOTHYROXINE 75MCG TABLET (0.075MG) PO SCH (05:33)
[2016-09-26] MEDS: LEVOTHYROXINE 100MCG TABLET (0.1MG) PO SCH (05:33)
[2016-09-26] MEDS: NS 1,000 ML IV SCH (05:35)
[2016-09-26] MEDS: DABIGATRAN ETEXILATE 75 MG CAP (PRADAXA) PO SCH ×2 (08:11→20:51)
[2016-09-26] MEDS: ISOSORBIDE DIN. (ISORDIL) 5 MG TAB PO SCH (08:12)
[2016-09-26] MEDS: LACTULOSE 20 GM/30 ML SYRUP UD PO SCH ×3 (08:12→23:26)
[2016-09-26] MEDS: DIVALPROEX 500MG *ER* TAB PO SCH ×2 (08:12→20:52)
[2016-09-26] MEDS: GABAPENTIN 300 MG CAP PO SCH ×2 (08:12→20:52)
[2016-09-26] MEDS: COLCHICINE 0.6 MG TAB PO SCH ×2 (08:12→20:52)
[2016-09-26] MEDS: LEVEMIR (INSULIN DETEMIR) 1 UNITS/0.01ML SC SCH ×2 (08:13→20:53)
[2016-09-26] MEDS: HumaLOG INSULIN (NovoLOG) PER UNIT SC SCH ×4 (08:13→20:40)
[2016-09-26] MEDS: CLOTRIMAZOLE 1% TOPICAL CREAM 30GM TOP SCH ×4 (08:14→20:53)
[2016-09-26] MEDS: NYSTATIN 100,000 UNITS/GM TOPICAL PWD 15 GM TOP SCH ×2 (08:14→20:51)
--- NOTE | 2016-09-26 12:47 | IPNPDOC ---
Text Note Date of Service The patient was seen on 09/26/16. NOTE Subjective: Patient is a 71 year old male with a PMHx of COPD, PINKY, Diastolic CHF , A. fib (on Pradaxa), AV block (s/p PM), HTN, DM2, Seizure disorder, Hypothyroidism, Gout, Obesity, GERD, Retinal detachment of right / Macular degeneration of Left, Chronic venous stasis with stasis dermatitis, Tremors, CKD3, Pulmonary HTN, Hydrocele and varicocele on Left. Presented to the ER with complaints of right leg pain, warmth and redness, found to be 2/2 Cellulitis. He has completed therapy with Ceftaroline and Doxycycline. Patient was seen and examined at the bedside. Currently he reports some pain in his right shoulder. He notes that it feel like a cramp. Denies any other problems. Objective: Vitals (See below) General: Lying in bed, no acute distress, comfortable, AAOx1 (person only) HEENT: NC, AT CVS: RRR, +S1S2 Lungs: Fair air entry b/l, no appreciable wheezing Abdomen: Soft, ND, NT Extremities: Trace edema, - Calf tenderness Assessment and plan: 1. s/p Right LE cellulitis - Redness, warmth and tenderness have resolved - Physical shows resolution or erythema / warmth / tenderness - No leukocytosis of elevation of lactic acid - s/p Antibiotics (Ceftaroline and Doxycycline) 2. s/p Respiratory distress - possibly 2/2 fluid overload, PINKY / OHS - requiring supplemental oxygen - CT chest 09/18: No infiltrates, effusions or masses - CXR 09/22: unchanged - c/w supplemental oxygen and continue to titrate down - c/w acapella and incentive spirometry 3. Acute metabolic encephalopathy - possibly 2/2 medications 2/2 doxycycline; possibly 2/2 baseline dementia with superimposed delirium - has been taken off antibiotics - will continue to monitor - CT head 09/24: small vessel ischemic disease and moderate volume loss - appreciate Neurology's consultation 4. Chronic compensated diastolic CHF - ECHO 06/2016: EF 65%, moderate pulmonary HTN - appears compensated 5. PINKY - c/w CPAP at night 6. Hypermagnesemia - s/p Mg supplementation 7. AV block - s/p PM 8. HTN - BP well controlled; has been on lower side of normal - s/p IV fluids - c/w Isosorbide dinitrate 9. DM2 - c/w ISS 10. Seizure disorder - c/w Depakote; reduced dose as per Neurology 11. Hypothyroidism - c/w Synthroid 12. Gout - c/w Allopurinol and Colchicine 13. s/p GERARDO - Cr now at baseline 14. A. fib - rate controlled with Bisoprolol with holding parameters - c/w anticoagulation with Pradaxa 15. GERD - c/w Prilosec 16. DVT prophylaxis - on full anticoagulation with Pradaxa VS,Fishbone, I+O VS, Fishbone, I+O Laboratory Tests 09/26/16 04:03 Red Blood Count 4.10 L, Mean Corpuscular Volume 97.0 H, Mean Corpuscular Hemoglobin 29.8, Mean Corpuscular Hemoglobin Concent 30.7 L, Red Cell Distribution Width 16.5 H, Calcium Level 8.8, Aspartate Amino Transf (AST/SGOT) 12 L, Alanine Aminotransferase (ALT/SGPT) 12, Alkaline Phosphatase 178 H, Total Bilirubin 1.0, Total Protein 4.8 L, Albumin 2.2 L Vital Signs Date Time Temp Pulse Resp B/P (MAP) Pulse Ox O2 Delivery O2 Flow Rate FiO2 09/26/16 09:15 Nasal Cannula 2.0 09/26/16 08:12 124/66 09/26/16 06:00 97.0 60 16 92 I&O- Last 24 Hours up to 6 AM 09/26/16 06:00 Intake Total 2020 ml Balance 2020 ml JOE HDEZ MD Sep 26, 2016 12:47
[2016-09-26] MEDS: ASCORBIC ACID 500 MG TAB PO SCH (20:52)
[2016-09-26] MEDS: COLESEVELAM 625 MG TAB (WELCHOL) PO SCH (20:52)
[2016-09-26] MEDS: VITAMIN D 1,000 INTERNATIONAL UNITS TABLET PO SCH (20:52)
[2016-09-26] MEDS: OMEPRAZOLE 20 MG CAP PO SCH (20:52)
[2016-09-26] MEDS: ALLOPURINOL 300 MG TAB PO SCH (20:52)
[2016-09-26] MEDS: BISOPROLOL FUMARATE 10 MG TAB PO SCH (20:53)
[2016-09-26] MEDS: ASPIRIN 81 MG ENTERIC TAB PO SCH (20:53)
[2016-09-27] MEDS: IPRATROPIUM 0.5MG/ALBUTEROL 2.5MG INH SOL UD 3ML (DUONEB)(J7620) NEB SCH ×4 (02:00→20:56)
[2016-09-27] MEDS: LACTULOSE 20 GM/30 ML SYRUP UD PO SCH ×3 (05:38→18:06)
[2016-09-27] MEDS: LEVOTHYROXINE 100MCG TABLET (0.1MG) PO SCH (05:38)
[2016-09-27] MEDS: LEVOTHYROXINE 75MCG TABLET (0.075MG) PO SCH (05:38)
[2016-09-27 05:52] LABS: ADD MANUAL DIFFER YES; MEAN CORPUSCULAR HEMOGLOBIN 30.3 pg (27.0-33.0); MEAN CORPUSCULAR HGB CONC 31.5 g/dl (32.0-36.5); MEAN CORPUSCULAR VOLUME 96.3 fl (80.0-96.0); PLATELET COUNT, AUTOMATED 117 k/mm3 (150-450); RED CELL DISTRIBUTION WIDTH 16.6 % (11.5-14.5); WHITE BLOOD COUNT 2.8 K/mm3 (4.0-10.0)
[2016-09-27 05:55] VITALS: BP 104/92
[2016-09-27 06:25] LABS: ANION GAP 9 MEQ/L (8-16); BLOOD UREA NITROGEN 44 MG/DL (7-18); CALCIUM LEVEL 8.7 MG/DL (8.8-10.2); CARBON DIOXIDE LEVEL 22 MEQ/L (21-32); CHLORIDE LEVEL 116 MEQ/L (98-107); CREATININE FOR GFR 1.06 MG/DL (0.70-1.30); GLOMERULAR FILTRATION RATE > 60.0 (>42); GLUCOSE, FASTING 109 MG/DL (83-110); MAGNESIUM LEVEL 2.5 MG/DL (1.8-2.4); POTASSIUM SERUM 4.7 MEQ/L (3.5-5.1); SODIUM LEVEL 147 MEQ/L (136-145)
[2016-09-27 06:29] LABS: EOSINOPHILS 9 % (0-5)
[2016-09-27 06:31] LABS: ANISOCYTOSIS 1+
[2016-09-27] MEDS ORDERED: D5W/0.45% SODIUM CHLORIDE 1,000 ML IV SCH (07:15)
[2016-09-27] MEDS: HumaLOG INSULIN (NovoLOG) PER UNIT SC SCH ×4 (07:34→20:59)
[2016-09-27] MEDS: LEVEMIR (INSULIN DETEMIR) 1 UNITS/0.01ML SC SCH ×2 (08:24→21:14)
[2016-09-27] MEDS: GABAPENTIN 300 MG CAP PO SCH ×2 (08:25→21:13)
[2016-09-27] MEDS: DABIGATRAN ETEXILATE 75 MG CAP (PRADAXA) PO SCH ×2 (08:25→21:11)
[2016-09-27] MEDS: COLCHICINE 0.6 MG TAB PO SCH ×2 (08:25→21:11)
[2016-09-27] MEDS: DIVALPROEX 500MG *ER* TAB PO SCH ×2 (08:25→21:11)
[2016-09-27] MEDS: NYSTATIN 100,000 UNITS/GM TOPICAL PWD 15 GM TOP SCH ×2 (08:25→21:12)
[2016-09-27] MEDS: CLOTRIMAZOLE 1% TOPICAL CREAM 30GM TOP SCH ×4 (08:26→21:12)
[2016-09-27] MEDS: ISOSORBIDE DIN. (ISORDIL) 5 MG TAB PO SCH (08:29)
--- NOTE | 2016-09-27 13:54 | IPNPDOC ---
Text Note Date of Service The patient was seen on 09/27/16. NOTE Subjective: Patient is a 71 year old male with a PMHx of COPD, PINKY, Diastolic CHF , A. fib (on Pradaxa), AV block (s/p PM), HTN, DM2, Seizure disorder, Hypothyroidism, Gout, Obesity, GERD, Retinal detachment of right / Macular degeneration of Left, Chronic venous stasis with stasis dermatitis, Tremors, CKD3, Pulmonary HTN, Hydrocele and varicocele on Left. Presented to the ER with complaints of right leg pain, warmth and redness, found to be 2/2 Cellulitis. He has completed therapy with Ceftaroline and Doxycycline. Patient was seen and examined at the bedside. He does not report any issues this morning. Objective: Vitals (See below) General: Lying in bed, no acute distress, comfortable, AAOx1 (person only) HEENT: NC, AT CVS: RRR, +S1S2 Lungs: Fair air entry b/l, no appreciable wheezing Abdomen: Soft, ND, NT Extremities: Trace edema, - Calf tenderness Assessment and plan: 1. Acute metabolic encephalopathy - possibly 2/2 elevated ammonia, less likely 2 /2 medications (doxycycline); possibly 2/2 baseline dementia with superimposed delirium - is able to speak in full sentences, difficult to process thoughts - no focal deficits - CT head 09/24: small vessel ischemic disease and moderate volume loss - appreciate Neurology's consultation - will increase dose of lactulose and titrate to 3-4 bowel movements 2. s/p Right LE cellulitis - Redness, warmth and tenderness have resolved - Physical shows resolution or erythema / warmth / tenderness - No leukocytosis of elevation of lactic acid - s/p Antibiotics (Ceftaroline and Doxycycline) 3. s/p Respiratory distress - possibly 2/2 fluid overload, PINKY / OHS - requiring supplemental oxygen - CT chest 09/18: No infiltrates, effusions or masses - CXR 09/22: unchanged - c/w supplemental oxygen and continue to titrate down - c/w acapella and incentive spirometry 4. Chronic compensated diastolic CHF - ECHO 06/2016: EF 65%, moderate pulmonary HTN - appears compensated 5. PINKY - c/w CPAP at night 6. Hypermagnesemia - s/p Mg supplementation 7. AV block - s/p PM 8. HTN - BP well controlled; has been on lower side of normal - s/p IV fluids - c/w Isosorbide dinitrate 9. DM2 - c/w ISS 10. Seizure disorder - c/w Depakote; reduced dose as per Neurology 11. Hypothyroidism - c/w Synthroid 12. Gout - c/w Allopurinol and Colchicine 13. s/p GERARDO - Cr now at baseline 14. A. fib - rate controlled with Bisoprolol with holding parameters - c/w anticoagulation with Pradaxa 15. GERD - c/w Prilosec 16. DVT prophylaxis - on full anticoagulation with Pradaxa VS,Fishbone, I+O VS, Fishbone, I+O Laboratory Tests 09/27/16 05:29 Red Blood Count 3.97 L, Mean Corpuscular Volume 96.3 H, Mean Corpuscular Hemoglobin 30.3, Mean Corpuscular Hemoglobin Concent 31.5 L, Red Cell Distribution Width 16.6 H, Calcium Level 8.7 L Vital Signs Date Time Temp Pulse Resp B/P (MAP) Pulse Ox O2 Delivery O2 Flow Rate FiO2 09/27/16 08:29 102/58 09/27/16 05:55 97.3 56 18 92 Nasal Cannula 3.0 I&O- Last 24 Hours up to 6 AM 09/27/16 06:00 Intake Total 1920 ml Balance 1920 ml JOE HDEZ MD Sep 27, 2016 13:54
[2016-09-27 14:00] VITALS: BP 112/61
--- NOTE | 2016-09-27 17:18 | EEG ---
DATE OF PROCEDURE: 09/26/2016 REFERRING PHYSICIAN: Dr. Dell Nuñez DIAGNOSIS: Altered mental status. EEG NUMBER: [id number]. HISTORY: The patient is a 71-year-old man who was admitted at [facility] due to altered mental status. This EEG was done to rule out epileptic potential. He is currently taking bisoprolol, colchicine, gabapentin., levothyroxine, Depakote, Pradaxa, etc. TECHNICAL DESCRIPTION: This digital EEG was recorded by 21 scalp, ear and two EKG electrodes and was reviewed in bipolar and referential montages following reformatting in 10-20 international electrode placement system. INTERPRETATION: The patient was noted to be in awake and drowsy states during this EEG. Resting awake background rhythm consisted of 5-6 Hz theta activity measuring 15-40 microvolts in amplitude. No sleep was achieved. Hyperventilation could not be performed. Photic stimulation remained unremarkable. EKG revealed sinus rhythm without cardiac arrhythmia. No focal, lateralizing or epileptiform abnormalities were seen. No clinical or electrographic seizures were recorded. CONCLUSION: This EEG in awake, drowsy states is abnormal due to presence of generalized slowing and disorganization of background consistent with nonspecific diffuse cerebral dysfunction such as seen in encephalopathy due to multiple potential causes, including toxic, metabolic, infectious, autoimmune, medication related or multifocal structural abnormalities. No epileptiform abnormalities were seen. Clinical correlation is recommended. MTDD
[2016-09-27] MEDS: ANALGESIC BALM CRM 120 GM TOP PRN (21:11)
[2016-09-27] MEDS: ALLOPURINOL 300 MG TAB PO SCH (21:11)
[2016-09-27] MEDS: OMEPRAZOLE 20 MG CAP PO SCH (21:11)
[2016-09-27] MEDS: COLESEVELAM 625 MG TAB (WELCHOL) PO SCH (21:11)
[2016-09-27] MEDS: VITAMIN D 1,000 INTERNATIONAL UNITS TABLET PO SCH (21:12)
[2016-09-27] MEDS: ASCORBIC ACID 500 MG TAB PO SCH (21:12)
[2016-09-27] MEDS: BISOPROLOL FUMARATE 10 MG TAB PO SCH (21:13)
[2016-09-27] MEDS: ASPIRIN 81 MG ENTERIC TAB PO SCH (21:13)
[2016-09-27 22:00] VITALS: BP 122/71
[2016-09-28 02:00] VITALS: BP 120/77
[2016-09-28] MEDS: IPRATROPIUM 0.5MG/ALBUTEROL 2.5MG INH SOL UD 3ML (DUONEB)(J7620) NEB SCH ×4 (02:00→20:00)
[2016-09-28] MEDS: LEVOTHYROXINE 75MCG TABLET (0.075MG) PO SCH (05:52)
[2016-09-28] MEDS: LEVOTHYROXINE 100MCG TABLET (0.1MG) PO SCH (05:52)
[2016-09-28] MEDS: LACTULOSE 20 GM/30 ML SYRUP UD PO SCH ×4 (05:52→17:42)
[2016-09-28 06:00] VITALS: BP 168/72
[2016-09-28] MEDS: HumaLOG INSULIN (NovoLOG) PER UNIT SC SCH ×4 (08:09→22:01)
[2016-09-28] MEDS: DIVALPROEX 500MG *ER* TAB PO SCH ×2 (08:10→22:01)
[2016-09-28] MEDS: LEVEMIR (INSULIN DETEMIR) 1 UNITS/0.01ML SC SCH ×2 (08:11→22:02)
[2016-09-28] MEDS: ISOSORBIDE DIN. (ISORDIL) 5 MG TAB PO SCH (08:11)
[2016-09-28] MEDS: COLCHICINE 0.6 MG TAB PO SCH ×2 (08:11→22:01)
[2016-09-28] MEDS: GABAPENTIN 300 MG CAP PO SCH ×2 (08:11→22:00)
[2016-09-28] MEDS: DABIGATRAN ETEXILATE 75 MG CAP (PRADAXA) PO SCH ×2 (08:11→22:00)
[2016-09-28] MEDS: NYSTATIN 100,000 UNITS/GM TOPICAL PWD 15 GM TOP SCH ×2 (08:12→22:03)
[2016-09-28] MEDS: CLOTRIMAZOLE 1% TOPICAL CREAM 30GM TOP SCH ×4 (08:14→22:00)
[2016-09-28 09:08] LABS: ADD MANUAL DIFFER YES; MEAN CORPUSCULAR HGB CONC 30.9 g/dl (32.0-36.5); PLATELET COUNT, AUTOMATED 155 k/mm3 (150-450); RED CELL DISTRIBUTION WIDTH 16.7 % (11.5-14.5)
[2016-09-28 09:14] LABS: ALBUMIN 2.5 GM/DL (3.2-5.2); ALBUMIN/GLOBULIN RATIO 1.04 (1.00-1.93); ALKALINE PHOSPHATASE 260 U/L (45-117); ALT/SGPT 15 U/L (12-78); ANION GAP 10 MEQ/L (8-16); AST/SGOT 19 U/L (15-37); BILIRUBIN,TOTAL 1.3 MG/DL (0.2-1.0); BLOOD UREA NITROGEN 41 MG/DL (7-18); CALCIUM LEVEL 9.5 MG/DL (8.8-10.2); CARBON DIOXIDE LEVEL 19 MEQ/L (21-32); CHLORIDE LEVEL 118 MEQ/L (98-107); CREATININE FOR GFR 0.96 MG/DL (0.70-1.30); GLOMERULAR FILTRATION RATE > 60.0 (>42); GLUCOSE, FASTING 145 MG/DL (83-110); MAGNESIUM LEVEL 2.4 MG/DL (1.8-2.4); POTASSIUM SERUM 4.7 MEQ/L (3.5-5.1); SODIUM LEVEL 147 MEQ/L (136-145); TOTAL PROTEIN 4.9 GM/DL (6.4-8.2)
[2016-09-28 10:00] VITALS: BP 113/63
[2016-09-28 10:22] LABS: ANISOCYTOSIS 2+; BASOPHILS 1 % (0-4); EOSINOPHILS 14 % (0-5); POIKILOCYTOSIS 1+
[2016-09-28] MEDS ORDERED: D5W 1,000 ML IV SCH (10:45)
--- NOTE | 2016-09-28 11:35 | IPNPDOC ---
Text Note Date of Service The patient was seen on 09/28/16. NOTE Subjective: Patient is a 71 year old male with a PMHx of COPD, PINKY, Diastolic CHF , A. fib (on Pradaxa), AV block (s/p PM), HTN, DM2, Seizure disorder, Hypothyroidism, Gout, Obesity, GERD, Retinal detachment of right / Macular degeneration of Left, Chronic venous stasis with stasis dermatitis, Tremors, CKD3, Pulmonary HTN, Hydrocele and varicocele on Left. Presented to the ER with complaints of right leg pain, warmth and redness, found to be 2/2 Cellulitis. He has completed therapy with Ceftaroline and Doxycycline. Patient was seen and examined at the bedside. He does not report any issues this morning. Objective: Vitals (See below) General: Lying in bed, no acute distress, comfortable, AAOx2 (not to time) HEENT: NC, AT CVS: RRR, +S1S2 Lungs: Fair air entry b/l, no appreciable wheezing Abdomen: Soft, ND, NT Extremities: Trace edema, - Calf tenderness Assessment and plan: 1. Acute metabolic encephalopathy - possibly 2/2 elevated ammonia, less likely 2 /2 medications (doxycycline); possibly 2/2 baseline dementia with superimposed delirium - is able to speak in full sentences, difficult to process thoughts; appears to have improvement in orientation - no focal deficits - Ammonia levels remain elevated >40 - CT head 09/24: small vessel ischemic disease and moderate volume loss - appreciate Neurology's consultation - Will continue with high dose lactulose until ammonia levels begin to decline 2. s/p Right LE cellulitis - Redness, warmth and tenderness have resolved - Physical shows resolution or erythema / warmth / tenderness - No leukocytosis of elevation of lactic acid - s/p Antibiotics (Ceftaroline and Doxycycline) 3. s/p Respiratory distress - possibly 2/2 fluid overload, PINKY / OHS - requiring supplemental oxygen - CT chest 09/18: No infiltrates, effusions or masses - CXR 09/22: unchanged - c/w supplemental oxygen and continue to titrate down - c/w acapella and incentive spirometry 4. Hypernatremia - Free water deficit of 1.3 L (target Na of 140) - will start D5W at 60 cc / hr x 1 liter - will repeat BMP at 2PM 5. Chronic compensated diastolic CHF - ECHO 06/2016: EF 65%, moderate pulmonary HTN - appears compensated 6. PINKY - c/w CPAP at night 7. Hypermagnesemia - s/p Mg supplementation 8. AV block - s/p PM 9. HTN - BP well controlled; has been on lower side of normal - s/p IV fluids - c/w Isosorbide dinitrate 10. DM2 - c/w ISS 11. Seizure disorder - c/w Depakote; reduced dose as per Neurology 12. Hypothyroidism - c/w Synthroid 13. Gout - c/w Allopurinol and Colchicine 14. s/p GERARDO - Cr now at baseline 15. A. fib - rate controlled with Bisoprolol with holding parameters - c/w anticoagulation with Pradaxa 16. GERD - c/w Prilosec 17. DVT prophylaxis - on full anticoagulation with Pradaxa VS,Fishbone, I+O VS, Fishbone, I+O Laboratory Tests 09/28/16 08:33 Red Blood Count 4.40, Mean Corpuscular Volume 97.0 H, Mean Corpuscular Hemoglobin 30.0, Mean Corpuscular Hemoglobin Concent 30.9 L, Red Cell Distribution Width 16.7 H, Calcium Level 9.5, Aspartate Amino Transf (AST/SGOT) 19, Alanine Aminotransferase (ALT/SGPT) 15, Alkaline Phosphatase 260 H, Total Bilirubin 1.3 H, Total Protein 4.9 L, Albumin 2.5 L Vital Signs Date Time Temp Pulse Resp B/P (MAP) Pulse Ox O2 Delivery O2 Flow Rate FiO2 09/28/16 10:00 97.0 60 18 113/63 (80) 90 Nasal Cannula 2.0 I&O- Last 24 Hours up to 6 AM 09/28/16 06:00 Intake Total 570 ml Output Total 0 ml Balance 570 ml JOE HDEZ MD Sep 28, 2016 11:35
[2016-09-28 14:00] VITALS: BP 115/71
[2016-09-28 14:43] LABS: ANION GAP 11 MEQ/L (8-16); BLOOD UREA NITROGEN 41 MG/DL (7-18); CALCIUM LEVEL 9.3 MG/DL (8.8-10.2); CARBON DIOXIDE LEVEL 18 MEQ/L (21-32); CHLORIDE LEVEL 117 MEQ/L (98-107); CREATININE FOR GFR 1.01 MG/DL (0.70-1.30); GLOMERULAR FILTRATION RATE > 60.0 (>42); GLUCOSE, FASTING 177 MG/DL (83-110); POTASSIUM SERUM 4.6 MEQ/L (3.5-5.1); SODIUM LEVEL 146 MEQ/L (136-145)
[2016-09-28 18:00] VITALS: BP 132/74
[2016-09-28 22:00] VITALS: BP 122/74
[2016-09-28] MEDS: COLESEVELAM 625 MG TAB (WELCHOL) PO SCH (22:00)
[2016-09-28] MEDS: VITAMIN D 1,000 INTERNATIONAL UNITS TABLET PO SCH (22:01)
[2016-09-28] MEDS: ASPIRIN 81 MG ENTERIC TAB PO SCH (22:01)
[2016-09-28] MEDS: ASCORBIC ACID 500 MG TAB PO SCH (22:01)
[2016-09-28] MEDS: OMEPRAZOLE 20 MG CAP PO SCH (22:01)
[2016-09-28] MEDS: ALLOPURINOL 300 MG TAB PO SCH (22:01)
[2016-09-28] MEDS: BISOPROLOL FUMARATE 10 MG TAB PO SCH (22:03)
[2016-09-29] MEDS: LACTULOSE 20 GM/30 ML SYRUP UD PO SCH ×4 (00:51→17:05)
[2016-09-29 02:00] VITALS: BP 115/65
[2016-09-29] MEDS: IPRATROPIUM 0.5MG/ALBUTEROL 2.5MG INH SOL UD 3ML (DUONEB)(J7620) NEB SCH ×4 (02:00→19:58)
[2016-09-29] MEDS: LEVOTHYROXINE 75MCG TABLET (0.075MG) PO SCH (05:49)
[2016-09-29] MEDS: LEVOTHYROXINE 100MCG TABLET (0.1MG) PO SCH (05:50)
[2016-09-29 05:54] LABS: ADD MANUAL DIFFER YES; MEAN CORPUSCULAR HEMOGLOBIN 30.6 pg (27.0-33.0); MEAN CORPUSCULAR HGB CONC 31.3 g/dl (32.0-36.5); MEAN CORPUSCULAR VOLUME 97.7 fl (80.0-96.0); PLATELET COUNT, AUTOMATED 126 k/mm3 (150-450); RED CELL DISTRIBUTION WIDTH 16.6 % (11.5-14.5); WHITE BLOOD COUNT 3.5 K/mm3 (4.0-10.0)
[2016-09-29 06:00] VITALS: BP 129/79
[2016-09-29 06:46] LABS: EOSINOPHILS 8 % (0-5)
[2016-09-29 06:47] LABS: ANISOCYTOSIS 1+; HYPOCHROMASIA 1+; TEAR DROP CELLS 1+
[2016-09-29 08:06] LABS: ALBUMIN 2.4 GM/DL (3.2-5.2); ALKALINE PHOSPHATASE 234 U/L (45-117); ALT/SGPT 15 U/L (12-78); ANION GAP 10 MEQ/L (8-16); AST/SGOT 18 U/L (15-37); BILIRUBIN,TOTAL 1.2 MG/DL (0.2-1.0); BLOOD UREA NITROGEN 37 MG/DL (7-18); CALCIUM LEVEL 9.1 MG/DL (8.8-10.2); CARBON DIOXIDE LEVEL 22 MEQ/L (21-32); CHLORIDE LEVEL 116 MEQ/L (98-107); GLOMERULAR FILTRATION RATE > 60.0 (>42); GLUCOSE, FASTING 138 MG/DL (83-110); MAGNESIUM LEVEL 2.3 MG/DL (1.8-2.4); POTASSIUM SERUM 4.2 MEQ/L (3.5-5.1); SODIUM LEVEL 148 MEQ/L (136-145); TOTAL PROTEIN 4.8 GM/DL (6.4-8.2)
[2016-09-29] MEDS: CLOTRIMAZOLE 1% TOPICAL CREAM 30GM TOP SCH ×4 (08:13→22:04)
[2016-09-29] MEDS: NYSTATIN 100,000 UNITS/GM TOPICAL PWD 15 GM TOP SCH ×2 (08:13→22:04)
[2016-09-29] MEDS: COLCHICINE 0.6 MG TAB PO SCH ×2 (08:20→22:02)
[2016-09-29] MEDS: DABIGATRAN ETEXILATE 75 MG CAP (PRADAXA) PO SCH ×2 (08:21→22:03)
[2016-09-29] MEDS: DIVALPROEX 500MG *ER* TAB PO SCH ×2 (08:21→22:02)
[2016-09-29] MEDS: GABAPENTIN 300 MG CAP PO SCH ×2 (08:21→22:03)
[2016-09-29] MEDS: HumaLOG INSULIN (NovoLOG) PER UNIT SC SCH ×4 (08:22→21:00)
[2016-09-29] MEDS: LEVEMIR (INSULIN DETEMIR) 1 UNITS/0.01ML SC SCH ×2 (08:23→22:02)
[2016-09-29] MEDS: ISOSORBIDE DIN. (ISORDIL) 5 MG TAB PO SCH (08:29)
[2016-09-29 10:00] VITALS: BP 106/58
[2016-09-29] MEDS ORDERED: D5W 1,000 ML IV SCH (11:00)
--- NOTE | 2016-09-29 13:18 | IPNPDOC ---
Text Note Date of Service The patient was seen on 09/29/16. NOTE Subjective: Patient is a 71 year old male with a PMHx of COPD, PINKY, Diastolic CHF , A. fib (on Pradaxa), AV block (s/p PM), HTN, DM2, Seizure disorder, Hypothyroidism, Gout, Obesity, GERD, Retinal detachment of right / Macular degeneration of Left, Chronic venous stasis with stasis dermatitis, Tremors, CKD3, Pulmonary HTN, Hydrocele and varicocele on Left. Presented to the ER with complaints of right leg pain, warmth and redness, found to be 2/2 Cellulitis. He has completed therapy with Ceftaroline and Doxycycline. Patient was seen and examined at the bedside. Patient appears to have an increase in comprehension today, still not fully oriented. He notes that he is a little tired and acknowledges that he is a little confused. No other complaints. Objective: Vitals (See below) General: Lying in bed, no acute distress, comfortable, AAOx2 (still not to time) HEENT: NC, AT CVS: RRR, +S1S2 Lungs: Fair air entry b/l, no appreciable wheezing Abdomen: Soft, ND, NT Extremities: Trace edema, - Calf tenderness Assessment and plan: 1. Acute metabolic encephalopathy - possibly 2/2 elevated ammonia, less likely 2 /2 medications (doxycycline); possibly 2/2 baseline dementia with superimposed delirium - Can speak in sentences, slow to processes thoughts, not oriented to time - no focal deficits - Ammonia levels remain elevated has trended down - CT head 09/24: small vessel ischemic disease and moderate volume loss - Appreciate Neurology's consultation - c/w lactulose titrated to bowel movements - Will restart D5W for Hypernatremia 2. s/p Right LE cellulitis - Redness, warmth and tenderness have resolved - Physical shows resolution or erythema / warmth / tenderness - No leukocytosis of elevation of lactic acid - s/p Antibiotics (Ceftaroline and Doxycycline) 3. s/p Respiratory distress - possibly 2/2 fluid overload, PINKY / OHS - requiring supplemental oxygen - CT chest 09/18: No infiltrates, effusions or masses - CXR 09/22: unchanged - c/w supplemental oxygen and continue to titrate down - c/w acapella and incentive spirometry 4. Hypernatremia - Free water deficit of 3.3 L (target Na of 140) - c/w D5W at 80 cc / hr - Will encourage free water by mouth - will follow BMP 5. Chronic compensated diastolic CHF - ECHO 06/2016: EF 65%, moderate pulmonary HTN - appears compensated 6. PINKY - c/w CPAP at night 7. Hypermagnesemia - s/p Mg supplementation 8. AV block - s/p PM 9. HTN - BP well controlled; has been on lower side of normal - s/p IV fluids - c/w Isosorbide dinitrate 10. DM2 - c/w ISS 11. Seizure disorder - c/w Depakote; reduced dose as per Neurology 12. Hypothyroidism - c/w Synthroid 13. Gout - c/w Allopurinol and Colchicine 14. s/p GERARDO - Cr now at baseline 15. A. fib - rate controlled with Bisoprolol with holding parameters - c/w anticoagulation with Pradaxa 16. GERD - c/w Prilosec 17. DVT prophylaxis - on full anticoagulation with Pradaxa VS,Fishbone, I+O VS, Fishbone, I+O Laboratory Tests 09/28/16 14:04 Calcium Level 9.3 09/29/16 05:20 Red Blood Count 4.27 L, Mean Corpuscular Volume 97.7 H, Mean Corpuscular Hemoglobin 30.6, Mean Corpuscular Hemoglobin Concent 31.3 L, Red Cell Distribution Width 16.6 H 09/29/16 07:27 Calcium Level 9.1, Aspartate Amino Transf (AST/SGOT) 18, Alanine Aminotransferase (ALT/SGPT) 15, Alkaline Phosphatase 234 H, Total Bilirubin 1.2 H, Total Protein 4.8 L, Albumin 2.4 L Vital Signs Date Time Temp Pulse Resp B/P (MAP) Pulse Ox O2 Delivery O2 Flow Rate FiO2 09/29/16 11:07 Nasal Cannula 2.0 09/29/16 10:00 96.9 60 19 106/58 (09) 92 I&O- Last 24 Hours up to 6 AM 09/29/16 06:00 Intake Total 1960 ml Output Total 0 ml Balance 1960 ml JOE HDEZ MD Sep 29, 2016 13:18
[2016-09-29 14:00] VITALS: BP 134/89
[2016-09-29 18:00] VITALS: BP 141/83
[2016-09-29] MEDS: BISOPROLOL FUMARATE 10 MG TAB PO SCH (21:00)
[2016-09-29] MEDS: ASPIRIN 81 MG ENTERIC TAB PO SCH (22:02)
[2016-09-29] MEDS: VITAMIN D 1,000 INTERNATIONAL UNITS TABLET PO SCH (22:02)
[2016-09-29] MEDS: OMEPRAZOLE 20 MG CAP PO SCH (22:02)
[2016-09-29] MEDS: ALLOPURINOL 300 MG TAB PO SCH (22:03)
[2016-09-29] MEDS: ASCORBIC ACID 500 MG TAB PO SCH (22:03)
[2016-09-29] MEDS: COLESEVELAM 625 MG TAB (WELCHOL) PO SCH (22:03)
[2016-09-30] VITALS (7 sets, daily range): BP systolic 110–142; BP diastolic 65–72
[2016-09-30] MEDS: LACTULOSE 20 GM/30 ML SYRUP UD PO SCH ×5 (00:11→23:46)
[2016-09-30] MEDS: IPRATROPIUM 0.5MG/ALBUTEROL 2.5MG INH SOL UD 3ML (DUONEB)(J7620) NEB SCH ×4 (02:00→20:13)
[2016-09-30] MEDS: LEVOTHYROXINE 100MCG TABLET (0.1MG) PO SCH (05:58)
[2016-09-30] MEDS: LEVOTHYROXINE 75MCG TABLET (0.075MG) PO SCH (05:58)
[2016-09-30 06:13] LABS: ADD MANUAL DIFFER YES; MEAN CORPUSCULAR HEMOGLOBIN 29.5 pg (27.0-33.0); MEAN CORPUSCULAR HGB CONC 30.1 g/dl (32.0-36.5); MEAN CORPUSCULAR VOLUME 98.1 fl (80.0-96.0); PLATELET COUNT, AUTOMATED 179 k/mm3 (150-450); RED CELL DISTRIBUTION WIDTH 16.6 % (11.5-14.5); WHITE BLOOD COUNT 5.3 K/mm3 (4.0-10.0)
[2016-09-30 06:32] LABS: ALBUMIN 2.5 GM/DL (3.2-5.2); ALBUMIN/GLOBULIN RATIO 0.81 (1.00-1.93); ALKALINE PHOSPHATASE 268 U/L (45-117); ALT/SGPT 17 U/L (12-78); ANION GAP 6 MEQ/L (8-16); AST/SGOT 19 U/L (15-37); BILIRUBIN,TOTAL 1.3 MG/DL (0.2-1.0); BLOOD UREA NITROGEN 32 MG/DL (7-18); CALCIUM LEVEL 9.5 MG/DL (8.8-10.2); CARBON DIOXIDE LEVEL 24 MEQ/L (21-32); CHLORIDE LEVEL 116 MEQ/L (98-107); CREATININE FOR GFR 1.02 MG/DL (0.70-1.30); GLOMERULAR FILTRATION RATE > 60.0 (>42); GLUCOSE, FASTING 131 MG/DL (83-110); MAGNESIUM LEVEL 2.2 MG/DL (1.8-2.4); POTASSIUM SERUM 4.9 MEQ/L (3.5-5.1); SODIUM LEVEL 146 MEQ/L (136-145); TOTAL PROTEIN 5.6 GM/DL (6.4-8.2)
[2016-09-30 07:20] LABS: EOSINOPHILS 8 % (0-5)
[2016-09-30 07:21] LABS: ANISOCYTOSIS 1+; HYPOCHROMASIA 2+
[2016-09-30] MEDS: DABIGATRAN ETEXILATE 75 MG CAP (PRADAXA) PO SCH ×2 (08:47→20:56)
[2016-09-30] MEDS: COLCHICINE 0.6 MG TAB PO SCH ×2 (08:47→20:57)
[2016-09-30] MEDS: GABAPENTIN 300 MG CAP PO SCH ×2 (08:47→20:56)
[2016-09-30] MEDS: DIVALPROEX 500MG *ER* TAB PO SCH (08:48)
[2016-09-30] MEDS: ISOSORBIDE DIN. (ISORDIL) 5 MG TAB PO SCH (08:48)
[2016-09-30] MEDS: LEVEMIR (INSULIN DETEMIR) 1 UNITS/0.01ML SC SCH ×2 (08:48→20:55)
[2016-09-30] MEDS: CLOTRIMAZOLE 1% TOPICAL CREAM 30GM TOP SCH ×4 (08:49→20:57)
[2016-09-30] MEDS: HumaLOG INSULIN (NovoLOG) PER UNIT SC SCH ×5 (08:49→20:22)
[2016-09-30] MEDS: NYSTATIN 100,000 UNITS/GM TOPICAL PWD 15 GM TOP SCH ×2 (08:49→20:57)
--- NOTE | 2016-09-30 11:07 | IPNPDOC ---
Text Note Date of Service The patient was seen on 09/30/16. NOTE Subjective: Patient is a 71 year old male with a PMHx of COPD, PINKY, Diastolic CHF , A. fib (on Pradaxa), AV block (s/p PM), HTN, DM2, Seizure disorder, Hypothyroidism, Gout, Obesity, GERD, Retinal detachment of right / Macular degeneration of Left, Chronic venous stasis with stasis dermatitis, Tremors, CKD3, Pulmonary HTN, Hydrocele and varicocele on Left. Presented to the ER with complaints of right leg pain, warmth and redness, found to be 2/2 Cellulitis. He has completed therapy with Ceftaroline and Doxycycline. Patient was seen and examined at the bedside. He still appears to have confusion and a prolonged time forming sentences. Objective: Vitals (See below) General: Lying in bed, no acute distress, comfortable, AAOx2 (still not to time) HEENT: NC, AT CVS: RRR, +S1S2 Lungs: Fair air entry b/l, no appreciable wheezing Abdomen: Soft, ND, NT Extremities: Trace edema, - Calf tenderness Assessment and plan: 1. Acute metabolic encephalopathy - possibly 2/2 residual effect of elevated ammonia, less likely 2/2 medications (doxycycline) - Awake and alert; slow to process thoughts - Still without any focal deficits - Ammonia level normalized - CT head 09/24: small vessel ischemic disease and moderate volume loss - c/w lactulose titrated to bowel movements - Will give free water to correct Sodium - Discussed with Neurology; likely 2/2 residual effects; may take days to weeks to resolve 2. s/p Right LE cellulitis - Redness, warmth and tenderness have resolved - Physical shows resolution or erythema / warmth / tenderness - No leukocytosis of elevation of lactic acid - s/p Antibiotics (Ceftaroline and Doxycycline) 3. s/p Respiratory distress - possibly 2/2 fluid overload, PINKY / OHS - requiring supplemental oxygen - CT chest 09/18: No infiltrates, effusions or masses - CXR 09/22: unchanged - c/w supplemental oxygen and continue to titrate down - c/w acapella and incentive spirometry 4. Hypernatremia - Free water deficit of 2.4 L (target Na of 140) - c/w D5W at 80 cc / hr and encourage free water by mouth - will follow BMP 5. Chronic compensated diastolic CHF - ECHO 06/2016: EF 65%, moderate pulmonary HTN - appears compensated 6. PINKY - c/w CPAP at night 7. Hypermagnesemia - s/p Mg supplementation 8. AV block - s/p PM 9. HTN - BP well controlled; has been on lower side of normal - s/p IV fluids - c/w Isosorbide dinitrate 10. DM2 - c/w ISS 11. Seizure disorder - c/w Depakote - Will further reduce dose today to 250 BID 12. Hypothyroidism - c/w Synthroid 13. Gout - c/w Allopurinol and Colchicine 14. s/p GERARDO - Cr now at baseline 15. A. fib - rate controlled with Bisoprolol with holding parameters - s/p Pacemaker - c/w anticoagulation with Pradaxa 16. GERD - c/w Prilosec 17. DVT prophylaxis - on full anticoagulation with Pradaxa VS,Fishbone, I+O VS, Fishbone, I+O Laboratory Tests 09/30/16 05:44 Red Blood Count 4.54, Mean Corpuscular Volume 98.1 H, Mean Corpuscular Hemoglobin 29.5, Mean Corpuscular Hemoglobin Concent 30.1 L, Red Cell Distribution Width 16.6 H, Calcium Level 9.5, Aspartate Amino Transf (AST/SGOT) 19, Alanine Aminotransferase (ALT/SGPT) 17, Alkaline Phosphatase 268 H, Total Bilirubin 1.3 H, Total Protein 5.6 L, Albumin 2.5 L Vital Signs Date Time Temp Pulse Resp B/P (MAP) Pulse Ox O2 Delivery O2 Flow Rate FiO2 09/30/16 08:48 118/71 09/30/16 06:00 97.4 69 21 93 Nasal Cannula 2.0 I&O- Last 24 Hours up to 6 AM 09/30/16 06:00 Intake Total 2560 ml Output Total 0 ml Balance 2560 ml JOE HDEZ MD Sep 30, 2016 10:55
[2016-09-30] MEDS ORDERED: risperiDONE 0.25 MG TAB PO SCH (19:00)
[2016-09-30] MEDS: COLESEVELAM 625 MG TAB (WELCHOL) PO SCH (20:55)
[2016-09-30] MEDS: ALLOPURINOL 300 MG TAB PO SCH (20:56)
[2016-09-30] MEDS: ASCORBIC ACID 500 MG TAB PO SCH (20:56)
[2016-09-30] MEDS: OMEPRAZOLE 20 MG CAP PO SCH (20:56)
[2016-09-30] MEDS: BISOPROLOL FUMARATE 10 MG TAB PO SCH (20:56)
[2016-09-30] MEDS: VITAMIN D 1,000 INTERNATIONAL UNITS TABLET PO SCH (20:56)
[2016-09-30] MEDS: risperiDONE 0.25 MG TAB PO SCH (20:57)
[2016-09-30] MEDS: DIVALPROEX 250MG *ER* TAB PO SCH (20:57)
[2016-09-30] MEDS: ASPIRIN 81 MG ENTERIC TAB PO SCH (20:57)
[2016-10-01] MEDS: IPRATROPIUM 0.5MG/ALBUTEROL 2.5MG INH SOL UD 3ML (DUONEB)(J7620) NEB SCH ×4 (01:26→20:24)
[2016-10-01 02:00] VITALS: BP 106/66
[2016-10-01] MEDS: LACTULOSE 20 GM/30 ML SYRUP UD PO SCH ×4 (05:40→23:11)
[2016-10-01] MEDS: LEVOTHYROXINE 75MCG TABLET (0.075MG) PO SCH (05:40)
[2016-10-01] MEDS: LEVOTHYROXINE 100MCG TABLET (0.1MG) PO SCH (05:40)
[2016-10-01 05:57] LABS: BASO % 0.9 % (0.0-1.0); EOS # 0.1 K/mm3 (0.0-0.50); EOS % 2.2 % (0.0-3.0); LARGE UNSTAINED CELL # 0.3 K/mm3 (0.0-0.4); LARGE UNSTAINED CELL % 6.2 % (0.0-4.0); LYMPH # 1.5 K/mm3 (1.5-4.5); LYMPH % 33.4 % (24.0-44.0); MEAN CORPUSCULAR HGB CONC 30.9 g/dl (32.0-36.5); MONO # 0.6 K/mm3 (0.0-0.8); MONO % 13.5 % (0.0-5.0); NEUTROPHILS % 43.8 % (36.0-66.0); PLATELET COUNT, AUTOMATED 163 k/mm3 (150-450); RED CELL DISTRIBUTION WIDTH 16.7 % (11.5-14.5); WHITE BLOOD COUNT 4.5 K/mm3 (4.0-10.0)
[2016-10-01 06:00] VITALS: BP 108/65
[2016-10-01 06:02] LABS: ALBUMIN 2.2 GM/DL (3.2-5.2); ALBUMIN/GLOBULIN RATIO 0.88 (1.00-1.93); ALKALINE PHOSPHATASE 236 U/L (45-117); ALT/SGPT 16 U/L (12-78); ANION GAP 7 MEQ/L (8-16); AST/SGOT 13 U/L (15-37); BILIRUBIN,TOTAL 1.5 MG/DL (0.2-1.0); BLOOD UREA NITROGEN 35 MG/DL (7-18); CALCIUM LEVEL 8.9 MG/DL (8.8-10.2); CARBON DIOXIDE LEVEL 23 MEQ/L (21-32); CHLORIDE LEVEL 117 MEQ/L (98-107); CREATININE FOR GFR 1.07 MG/DL (0.70-1.30); GLOMERULAR FILTRATION RATE > 60.0 (>42); GLUCOSE, FASTING 100 MG/DL (83-110); MAGNESIUM LEVEL 2.1 MG/DL (1.8-2.4); POTASSIUM SERUM 4.4 MEQ/L (3.5-5.1); SODIUM LEVEL 147 MEQ/L (136-145); TOTAL PROTEIN 4.7 GM/DL (6.4-8.2)
[2016-10-01] MEDS: D5W 1,000 ML IV SCH ×4 (06:30→18:59)
[2016-10-01] MEDS: HumaLOG INSULIN (NovoLOG) PER UNIT SC SCH ×4 (08:26→20:27)
[2016-10-01] MEDS: CLOTRIMAZOLE 1% TOPICAL CREAM 30GM TOP SCH ×4 (09:35→20:45)
[2016-10-01] MEDS: DABIGATRAN ETEXILATE 75 MG CAP (PRADAXA) PO SCH ×2 (09:35→20:45)
[2016-10-01] MEDS: rifAXIMin 550 MG TAB (XIFAXAN) PO SCH ×2 (09:35→20:45)
[2016-10-01] MEDS: risperiDONE 0.25 MG TAB PO SCH ×2 (09:35→20:45)
[2016-10-01] MEDS: COLCHICINE 0.6 MG TAB PO SCH ×2 (09:35→20:44)
[2016-10-01] MEDS: DIVALPROEX 250MG *ER* TAB PO SCH ×2 (09:36→20:44)
[2016-10-01] MEDS: GABAPENTIN 300 MG CAP PO SCH ×2 (09:36→20:45)
[2016-10-01] MEDS: NYSTATIN 100,000 UNITS/GM TOPICAL PWD 15 GM TOP SCH ×2 (09:37→20:46)
[2016-10-01] MEDS: ISOSORBIDE DIN. (ISORDIL) 5 MG TAB PO SCH (09:54)
[2016-10-01 10:00] VITALS: BP 118/69
[2016-10-01] MEDS: LEVEMIR (INSULIN DETEMIR) 1 UNITS/0.01ML SC SCH ×2 (11:13→20:43)
--- NOTE | 2016-10-01 13:12 | IPNPDOC ---
Text Note Date of Service The patient was seen on 10/01/16. NOTE Subjective: Patient is a 71 year old male with a PMHx of COPD, PINKY, Diastolic CHF , A. fib (on Pradaxa), AV block (s/p PM), HTN, DM2, Seizure disorder, Hypothyroidism, Gout, Obesity, GERD, Retinal detachment of right / Macular degeneration of Left, Chronic venous stasis with stasis dermatitis, Tremors, CKD3, Pulmonary HTN, Hydrocele and varicocele on Left. Presented to the ER with complaints of right leg pain, warmth and redness, found to be 2/2 Cellulitis. He has completed therapy with Ceftaroline and Doxycycline. Patient was seen and examined at the bedside. Patient is oriented to person, place and time today. He has noted to be some issues he has been experiencing today. He has reported some incontinence of stool because of the lactulose. Denies any other problems. Objective: Vitals (See below) General: Lying in bed, no acute distress, comfortable, AAOx3 HEENT: NC, AT CVS: RRR, +S1S2 Lungs: Fair air entry b/l, no appreciable wheezing Abdomen: Soft, ND, NT Extremities: Trace edema, - Calf tenderness Assessment and plan: 1. Acute metabolic encephalopathy - possibly 2/2 residual effect of elevated ammonia, less likely 2/2 medications (doxycycline) - Awake and alert; slow to process thoughts - Still without any focal deficits - Ammonia level has been fluctuating - CT head 09/24: small vessel ischemic disease and moderate volume loss - c/w lactulose titrated to bowel movements - c/w with D5W for hypernatremia - Neurology has been following; possible could take days to weeks to resolve - c/w Risperidone for agitation 2. s/p Right LE cellulitis - Redness, warmth and tenderness have resolved - Physical shows resolution or erythema / warmth / tenderness - No leukocytosis of elevation of lactic acid - s/p Antibiotics (Ceftaroline and Doxycycline) 3. s/p Respiratory distress - possibly 2/2 fluid overload, PINKY / OHS - requiring supplemental oxygen - CT chest 09/18: No infiltrates, effusions or masses - CXR 09/22: unchanged - c/w supplemental oxygen and continue to titrate down - c/w acapella and incentive spirometry - Will need to start physical therapy when capable of getting up and ambulating (re: improved mental status) 4. Hypernatremia - Free water deficit of 2.9 L (target Na of 140) - IV access was lost on 09/30; restarted on 10/01; if no IV access acquired will get PICC line for D5W - c/w D5W at 80 cc / hr and encourage free water by mouth - will follow BMP 5. Chronic compensated diastolic CHF - ECHO 06/2016: EF 65%, moderate pulmonary HTN - appears compensated 6. PINKY - c/w CPAP at night 7. s/p Hypermagnesemia - s/p Mg supplementation 8. AV block - s/p PM 9. HTN - BP well controlled; has been on lower side of normal - s/p IV fluids - c/w Isosorbide dinitrate 10. DM2 - c/w ISS 11. Seizure disorder - c/w reduced dose depakote (250 BID) 12. Hypothyroidism - c/w Synthroid 13. Gout - c/w Allopurinol and Colchicine 14. s/p GERARDO - Cr now at baseline 15. A. fib - rate controlled with Bisoprolol with holding parameters - s/p Pacemaker - c/w anticoagulation with Pradaxa 16. GERD - c/w Prilosec 17. DVT prophylaxis - on full anticoagulation with Pradaxa Disposition: - Awaiting improvement in mental status - Will need to work with physical therapy thereafter - Disposition based on PT recommendations VSChelsy, I+O VSChelsy, I+O Laboratory Tests 10/01/16 05:28 Red Blood Count 4.22 L, Mean Corpuscular Volume 97.0 H, Mean Corpuscular Hemoglobin 30.0, Mean Corpuscular Hemoglobin Concent 30.9 L, Red Cell Distribution Width 16.7 H, Neutrophils (%) (Auto) 43.8, Lymphocytes (%) (Auto) 33.4, Monocytes (%) (Auto) 13.5 H, Eosinophils (%) (Auto) 2.2, Basophils (%) ( Auto) 0.9, Neutrophils # (Auto) 2.0, Lymphocytes # (Auto) 1.5, Monocytes # (Auto ) 0.6, Eosinophils # (Auto) 0.1, Basophils # (Auto) 0.0, Calcium Level 8.9, Aspartate Amino Transf (AST/SGOT) 13 L, Alanine Aminotransferase (ALT/SGPT) 16, Alkaline Phosphatase 236 H, Total Bilirubin 1.5 H, Total Protein 4.7 L, Albumin 2.2 L Vital Signs Date Time Temp Pulse Resp B/P (MAP) Pulse Ox O2 Delivery O2 Flow Rate FiO2 10/01/16 10:00 96.9 64 18 118/69 (85) 95 Nasal Cannula 3.0 I&O- Last 24 Hours up to 6 AM 10/01/16 06:00 Intake Total 1380 ml Output Total 0 ml Balance 1380 ml JOE HDEZ MD Oct 01, 2016 13:12
[2016-10-01 14:00] VITALS: BP 101/68
[2016-10-01 18:00] VITALS: BP 104/66
[2016-10-01] MEDS: VITAMIN D 1,000 INTERNATIONAL UNITS TABLET PO SCH (20:43)
[2016-10-01] MEDS: BISOPROLOL FUMARATE 10 MG TAB PO SCH (20:44)
[2016-10-01] MEDS: ASPIRIN 81 MG ENTERIC TAB PO SCH (20:44)
[2016-10-01] MEDS: OMEPRAZOLE 20 MG CAP PO SCH (20:44)
[2016-10-01] MEDS: ASCORBIC ACID 500 MG TAB PO SCH (20:44)
[2016-10-01] MEDS: COLESEVELAM 625 MG TAB (WELCHOL) PO SCH (20:45)
[2016-10-01] MEDS: ALLOPURINOL 300 MG TAB PO SCH (20:45)
[2016-10-01 22:00] VITALS: BP 137/68
[2016-10-02 02:00] VITALS: BP 112/70
[2016-10-02] MEDS: IPRATROPIUM 0.5MG/ALBUTEROL 2.5MG INH SOL UD 3ML (DUONEB)(J7620) NEB SCH ×4 (02:05→20:28)
[2016-10-02] MEDS: LEVOTHYROXINE 100MCG TABLET (0.1MG) PO SCH (05:37)
[2016-10-02] MEDS: LEVOTHYROXINE 75MCG TABLET (0.075MG) PO SCH (05:37)
[2016-10-02] MEDS: LACTULOSE 20 GM/30 ML SYRUP UD PO SCH ×3 (05:37→17:36)
[2016-10-02 06:00] VITALS: BP 121/73
[2016-10-02 06:07] LABS: ADD MANUAL DIFFER YES; MEAN CORPUSCULAR HEMOGLOBIN 29.5 pg (27.0-33.0); MEAN CORPUSCULAR HGB CONC 30.5 g/dl (32.0-36.5); MEAN CORPUSCULAR VOLUME 96.6 fl (80.0-96.0); PLATELET COUNT, AUTOMATED 169 k/mm3 (150-450); RED CELL DISTRIBUTION WIDTH 16.8 % (11.5-14.5); WHITE BLOOD COUNT 4.2 K/mm3 (4.0-10.0)
[2016-10-02 06:45] LABS: EOSINOPHILS 3 % (0-5)
[2016-10-02 06:47] LABS: ANISOCYTOSIS 1+; HYPOCHROMASIA 1+
[2016-10-02 07:00] LABS: ALBUMIN 2.2 GM/DL (3.2-5.2); ALBUMIN/GLOBULIN RATIO 0.96 (1.00-1.93); ALKALINE PHOSPHATASE 232 U/L (45-117); ALT/SGPT 14 U/L (12-78); ANION GAP 11 MEQ/L (8-16); AST/SGOT 19 U/L (15-37); BILIRUBIN,TOTAL 1.1 MG/DL (0.2-1.0); BLOOD UREA NITROGEN 34 MG/DL (7-18); CALCIUM LEVEL 8.5 MG/DL (8.8-10.2); CARBON DIOXIDE LEVEL 19 MEQ/L (21-32); CHLORIDE LEVEL 116 MEQ/L (98-107); CREATININE FOR GFR 1.08 MG/DL (0.70-1.30); GLOMERULAR FILTRATION RATE > 60.0 (>42); GLUCOSE, FASTING 158 MG/DL (83-110); MAGNESIUM LEVEL 2.2 MG/DL (1.8-2.4); POTASSIUM SERUM 4.6 MEQ/L (3.5-5.1); SODIUM LEVEL 146 MEQ/L (136-145); TOTAL PROTEIN 4.5 GM/DL (6.4-8.2)
[2016-10-02] MEDS: HumaLOG INSULIN (NovoLOG) PER UNIT SC SCH ×4 (08:05→20:46)
[2016-10-02] MEDS: rifAXIMin 550 MG TAB (XIFAXAN) PO SCH ×2 (09:53→20:05)
[2016-10-02] MEDS: LEVEMIR (INSULIN DETEMIR) 1 UNITS/0.01ML SC SCH ×2 (09:53→20:22)
[2016-10-02] MEDS: GABAPENTIN 300 MG CAP PO SCH ×2 (09:54→20:06)
[2016-10-02] MEDS: DIVALPROEX 250MG *ER* TAB PO SCH ×2 (09:54→20:06)
[2016-10-02] MEDS: DABIGATRAN ETEXILATE 75 MG CAP (PRADAXA) PO SCH ×2 (09:54→20:05)
[2016-10-02] MEDS: risperiDONE 0.25 MG TAB PO SCH ×2 (09:54→20:06)
[2016-10-02] MEDS: COLCHICINE 0.6 MG TAB PO SCH ×2 (09:55→20:05)
[2016-10-02] MEDS: NYSTATIN 100,000 UNITS/GM TOPICAL PWD 15 GM TOP SCH ×2 (09:56→22:15)
[2016-10-02] MEDS: ISOSORBIDE DIN. (ISORDIL) 5 MG TAB PO SCH (09:56)
[2016-10-02] MEDS: CLOTRIMAZOLE 1% TOPICAL CREAM 30GM TOP SCH ×4 (09:58→22:15)
[2016-10-02 10:00] VITALS: BP 98/57
--- NOTE | 2016-10-02 13:36 | IPNPDOC ---
Text Note Date of Service The patient was seen on 10/02/16. NOTE Subjective: Patient is a 71 year old male with a PMHx of COPD, PINKY, Diastolic CHF , A. fib (on Pradaxa), AV block (s/p PM), HTN, DM2, Seizure disorder, Hypothyroidism, Gout, Obesity, GERD, Retinal detachment of right / Macular degeneration of Left, Chronic venous stasis with stasis dermatitis, Tremors, CKD3, Pulmonary HTN, Hydrocele and varicocele on Left. Presented to the ER with complaints of right leg pain, warmth and redness, found to be 2/2 Cellulitis. He has completed therapy with Ceftaroline and Doxycycline. Patient was seen and examined at the bedside. No new medical complaints today. Objective: Vitals (See below) General: Sitting in chair comfortably, no acute distress, comfortable, AAOx3 HEENT: NC, AT CVS: RRR, +S1S2 Lungs: Fair air entry b/l, no appreciable wheezing Abdomen: Soft, ND, NT Extremities: Trace edema, - Calf tenderness Assessment and plan: 1. Acute metabolic encephalopathy - possibly 2/2 residual effect of elevated ammonia, less likely 2/2 medications (doxycycline) - Awake and alert; slow to process thoughts - Still without any focal deficits - Ammonia level has been fluctuating - CT head 09/24: small vessel ischemic disease and moderate volume loss - c/w lactulose titrated to bowel movements - c/w with D5W for hypernatremia - Neurology has been following; possible could take days to weeks to resolve - c/w Risperidone for agitation 2. s/p Right LE cellulitis - Redness, warmth and tenderness have resolved - Physical shows resolution or erythema / warmth / tenderness - No leukocytosis of elevation of lactic acid - s/p Antibiotics (Ceftaroline and Doxycycline) 3. s/p Respiratory distress - possibly 2/2 fluid overload, PINKY / OHS - requiring supplemental oxygen - CT chest 09/18: No infiltrates, effusions or masses - CXR 09/22: unchanged - c/w supplemental oxygen and continue to titrate down - c/w acapella and incentive spirometry - Will need to start physical therapy when capable of getting up and ambulating (re: improved mental status) 4. Hypernatremia - Free water deficit of 2.9 L (target Na of 140) - IV access was lost on 09/30; restarted on 10/01; if no IV access acquired will get PICC line for D5W - c/w D5W at 80 cc / hr and encourage free water by mouth - will follow BMP 5. Chronic compensated diastolic CHF - ECHO 06/2016: EF 65%, moderate pulmonary HTN - appears compensated 6. PINKY - c/w CPAP at night 7. s/p Hypermagnesemia - s/p Mg supplementation 8. AV block - s/p PM 9. HTN - BP well controlled; has been on lower side of normal - s/p IV fluids - c/w Isosorbide dinitrate 10. DM2 - c/w ISS 11. Seizure disorder - c/w reduced dose depakote (250 BID) 12. Hypothyroidism - c/w Synthroid 13. Gout - c/w Allopurinol and Colchicine 14. s/p GERARDO - Cr now at baseline 15. A. fib - rate controlled with Bisoprolol with holding parameters - s/p Pacemaker - c/w anticoagulation with Pradaxa 16. GERD - c/w Prilosec 17. DVT prophylaxis - on full anticoagulation with Pradaxa Disposition: - Awaiting improvement in mental status - Will need to work with physical therapy thereafter - Disposition based on PT recommendations VSChelsy, I+O VSChelsy, I+O Laboratory Tests 10/02/16 05:39 Red Blood Count 4.13 L, Mean Corpuscular Volume 96.6 H, Mean Corpuscular Hemoglobin 29.5, Mean Corpuscular Hemoglobin Concent 30.5 L, Red Cell Distribution Width 16.8 H, Calcium Level 8.5 L, Aspartate Amino Transf (AST/SGOT ) 19, Alanine Aminotransferase (ALT/SGPT) 14, Alkaline Phosphatase 232 H, Total Bilirubin 1.1 H, Total Protein 4.5 L, Albumin 2.2 L Vital Signs Date Time Temp Pulse Resp B/P (MAP) Pulse Ox O2 Delivery O2 Flow Rate FiO2 10/02/16 10:00 97.4 56 18 98/57 (71) 95 Nasal Cannula 3.0 I&O- Last 24 Hours up to 6 AM 10/02/16 06:00 Intake Total 2080 ml Balance 2080 ml ELIDA PALMA MD Oct 02, 2016 13:36
[2016-10-02 14:00] VITALS: BP 106/60
[2016-10-02 18:00] VITALS: BP 106/68
[2016-10-02] MEDS: D5W 1,000 ML IV SCH ×2 (19:51→21:45)
[2016-10-02 20:00] VITALS: BP 107/65
[2016-10-02] MEDS: COLESEVELAM 625 MG TAB (WELCHOL) PO SCH (20:05)
[2016-10-02] MEDS: ASPIRIN 81 MG ENTERIC TAB PO SCH (20:06)
[2016-10-02] MEDS: OMEPRAZOLE 20 MG CAP PO SCH (20:06)
[2016-10-02] MEDS: ALLOPURINOL 300 MG TAB PO SCH (20:06)
[2016-10-02] MEDS: VITAMIN D 1,000 INTERNATIONAL UNITS TABLET PO SCH (20:06)
[2016-10-02] MEDS: ASCORBIC ACID 500 MG TAB PO SCH (20:06)
[2016-10-02] MEDS: BISOPROLOL FUMARATE 10 MG TAB PO SCH (20:07)
[2016-10-03] MEDS: IPRATROPIUM 0.5MG/ALBUTEROL 2.5MG INH SOL UD 3ML (DUONEB)(J7620) NEB SCH ×4 (01:30→20:00)
[2016-10-03 02:00] VITALS: BP 104/66
[2016-10-03] MEDS: LEVOTHYROXINE 75MCG TABLET (0.075MG) PO SCH (05:51)
[2016-10-03] MEDS: LACTULOSE 20 GM/30 ML SYRUP UD PO SCH ×5 (05:51→23:23)
[2016-10-03] MEDS: LEVOTHYROXINE 100MCG TABLET (0.1MG) PO SCH (05:51)
[2016-10-03 06:00] VITALS: BP 101/65
[2016-10-03 07:07] LABS: ADD MANUAL DIFFER YES; MEAN CORPUSCULAR HEMOGLOBIN 29.9 pg (27.0-33.0); MEAN CORPUSCULAR HGB CONC 30.8 g/dl (32.0-36.5); MEAN CORPUSCULAR VOLUME 96.9 fl (80.0-96.0); PLATELET COUNT, AUTOMATED 188 k/mm3 (150-450); RED CELL DISTRIBUTION WIDTH 16.5 % (11.5-14.5); WHITE BLOOD COUNT 3.7 K/mm3 (4.0-10.0)
[2016-10-03 07:13] LABS: ALBUMIN 2.4 GM/DL (3.2-5.2); ALBUMIN/GLOBULIN RATIO 1.04 (1.00-1.93); ALKALINE PHOSPHATASE 264 U/L (45-117); ALT/SGPT 18 U/L (12-78); ANION GAP 12 MEQ/L (8-16); AST/SGOT 19 U/L (15-37); BILIRUBIN,TOTAL 0.9 MG/DL (0.2-1.0); BLOOD UREA NITROGEN 35 MG/DL (7-18); CALCIUM LEVEL 8.4 MG/DL (8.8-10.2); CARBON DIOXIDE LEVEL 18 MEQ/L (21-32); CHLORIDE LEVEL 112 MEQ/L (98-107); CREATININE FOR GFR 1.15 MG/DL (0.70-1.30); GLOMERULAR FILTRATION RATE > 60.0 (>42); GLUCOSE, FASTING 174 MG/DL (83-110); MAGNESIUM LEVEL 2.3 MG/DL (1.8-2.4); POTASSIUM SERUM 4.5 MEQ/L (3.5-5.1); SODIUM LEVEL 142 MEQ/L (136-145); TOTAL PROTEIN 4.7 GM/DL (6.4-8.2)
[2016-10-03] MEDS: LEVEMIR (INSULIN DETEMIR) 1 UNITS/0.01ML SC SCH ×2 (08:27→22:32)
[2016-10-03] MEDS: HumaLOG INSULIN (NovoLOG) PER UNIT SC SCH ×4 (08:27→21:00)
[2016-10-03] MEDS: ISOSORBIDE DIN. (ISORDIL) 5 MG TAB PO SCH (08:28)
[2016-10-03] MEDS: rifAXIMin 550 MG TAB (XIFAXAN) PO SCH ×2 (08:28→22:22)
[2016-10-03] MEDS: COLCHICINE 0.6 MG TAB PO SCH ×2 (08:28→22:22)
[2016-10-03] MEDS: DIVALPROEX 250MG *ER* TAB PO SCH ×2 (08:28→22:22)
[2016-10-03] MEDS: risperiDONE 0.25 MG TAB PO SCH ×2 (08:28→22:22)
[2016-10-03] MEDS: NYSTATIN 100,000 UNITS/GM TOPICAL PWD 15 GM TOP SCH ×2 (08:29→22:32)
[2016-10-03] MEDS: GABAPENTIN 300 MG CAP PO SCH ×2 (08:29→22:22)
[2016-10-03] MEDS: DABIGATRAN ETEXILATE 75 MG CAP (PRADAXA) PO SCH ×2 (08:29→22:21)
[2016-10-03] MEDS: CLOTRIMAZOLE 1% TOPICAL CREAM 30GM TOP SCH ×4 (08:30→22:31)
[2016-10-03] MEDS: ANALGESIC BALM CRM 120 GM TOP PRN (08:30)
[2016-10-03] MEDS: D5W 1,000 ML IV SCH ×2 (08:36→22:45)
[2016-10-03 09:12] LABS: BANDS 2 % (< 11); BASOPHILS 1 % (0-4); EOSINOPHILS 9 % (0-5)
[2016-10-03 09:13] LABS: ANISOCYTOSIS 2+; HYPOCHROMASIA 1+
[2016-10-03 10:00] VITALS: BP 109/69
--- NOTE | 2016-10-03 13:07 | IPNPDOC ---
Text Note Date of Service The patient was seen on 10/03/16. NOTE Subjective: Patient is a 71 year old male with a PMHx of COPD, PINKY, Diastolic CHF , A. fib (on Pradaxa), AV block (s/p PM), HTN, DM2, Seizure disorder, Hypothyroidism, Gout, Obesity, GERD, Retinal detachment of right / Macular degeneration of Left, Chronic venous stasis with stasis dermatitis, Tremors, CKD3, Pulmonary HTN, Hydrocele and varicocele on Left. Presented to the ER with complaints of right leg pain, warmth and redness, found to be 2/2 Cellulitis. He has completed therapy with Ceftaroline and Doxycycline. Patient was seen and examined at the bedside. No new medical complaints today. Objective: Vitals (See below) General: no acute distress, comfortable HEENT: NC, AT CVS: RRR, +S1S2 Lungs: Fair air entry b/l, no appreciable wheezing Abdomen: Soft, ND, NT Extremities: Trace edema, - Calf tenderness Assessment and plan: 1. Acute metabolic encephalopathy - possibly 2/2 elevated ammonia - Awake and alert; slow to process thoughts - Still without any focal deficits - Ammonia level has been fluctuating - CT head 09/24: small vessel ischemic disease and moderate volume loss - c/w lactulose titrated to bowel movements - Neurology has been following; possible could take days to weeks to resolve - c/w Risperidone for agitation 2. s/p Right LE cellulitis - Redness, warmth and tenderness have resolved - Physical shows resolution or erythema / warmth / tenderness - No leukocytosis of elevation of lactic acid - s/p Antibiotics (Ceftaroline and Doxycycline) 3. s/p Respiratory distress - possibly 2/2 fluid overload, PINKY / OHS - requiring supplemental oxygen - CT chest 09/18: No infiltrates, effusions or masses - CXR 09/22: unchanged - c/w supplemental oxygen and continue to titrate down - c/w acapella and incentive spirometry 4. Hypernatremia - resolved - Free water deficit of 2.9 L (target Na of 140) - dc IVF in 24 hours - will follow BMP 5. Chronic compensated diastolic CHF - ECHO 06/2016: EF 65%, moderate pulmonary HTN - appears compensated 6. PINKY - c/w CPAP at night 7. s/p Hypermagnesemia - s/p Mg supplementation 8. AV block - s/p PM 9. HTN - BP well controlled; has been on lower side of normal - s/p IV fluids - c/w Isosorbide dinitrate 10. DM2 - c/w ISS 11. Seizure disorder - c/w reduced dose depakote (250 BID) 12. Hypothyroidism - c/w Synthroid 13. Gout - c/w Allopurinol and Colchicine 14. s/p GERARDO - Cr now at baseline 15. A. fib - rate controlled with Bisoprolol with holding parameters - s/p Pacemaker - c/w anticoagulation with Pradaxa 16. GERD - c/w Prilosec 17. DVT prophylaxis - on full anticoagulation with Pradaxa Disposition: - Awaiting improvement in mental status - Will need to work with physical therapy thereafter - Disposition based on PT recommendations Chelsy FERNANDES, I+O VSChelsy I+O Laboratory Tests 10/03/16 06:08 Red Blood Count 4.19 L, Mean Corpuscular Volume 96.9 H, Mean Corpuscular Hemoglobin 29.9, Mean Corpuscular Hemoglobin Concent 30.8 L, Red Cell Distribution Width 16.5 H, Calcium Level 8.4 L, Aspartate Amino Transf (AST/SGOT ) 19, Alanine Aminotransferase (ALT/SGPT) 18, Alkaline Phosphatase 264 H, Total Bilirubin 0.9, Total Protein 4.7 L, Albumin 2.4 L Vital Signs Date Time Temp Pulse Resp B/P (MAP) Pulse Ox O2 Delivery O2 Flow Rate FiO2 10/03/16 11:37 Nasal Cannula 3.0 10/03/16 10:00 96.7 68 18 109/69 (82) 93 I&O- Last 24 Hours up to 6 AM 10/03/16 06:00 Intake Total 2760 ml Balance 2760 ml ELIDA PALMA MD Oct 03, 2016 13:07
[2016-10-03 14:00] VITALS: BP 115/65
[2016-10-03 18:00] VITALS: BP 116/76
[2016-10-03] MEDS ORDERED: METOCLOPRAMIDE INJ 10MG/2ML VIAL (J2765) IV PRN (20:15)
--- NOTE | 2016-10-03 21:40 | REPUSA ---
HISTORY: Encephalopathy COMPARISON: None provided. CHEST, FRONTAL: Heart: Mild cardiomegaly. Single lead cardiac pacer. Lungs: I cannot exclude medial bilateral lower lobe atelectasis versus infiltrates. The upper lobes a re clear. No pneumothorax or significant effusion. Skeleton: Intact. IMPRESSION: Probable medial lower lobe atelectasis versus consolidations, left greater than right.
[2016-10-03 22:00] VITALS: BP 115/79
[2016-10-03] MEDS: ONDANSETRON 4MG/2ML VIAL (J2405) IV PRN (22:11)
[2016-10-03] MEDS: OMEPRAZOLE 20 MG CAP PO SCH (22:21)
[2016-10-03] MEDS: VITAMIN D 1,000 INTERNATIONAL UNITS TABLET PO SCH (22:21)
[2016-10-03] MEDS: ASPIRIN 81 MG ENTERIC TAB PO SCH (22:22)
[2016-10-03] MEDS: ALLOPURINOL 300 MG TAB PO SCH (22:22)
[2016-10-03] MEDS: ASCORBIC ACID 500 MG TAB PO SCH (22:22)
[2016-10-03] MEDS: BISOPROLOL FUMARATE 10 MG TAB PO SCH (22:36)
[2016-10-03] MEDS: COLESEVELAM 625 MG TAB (WELCHOL) PO SCH (22:36)
[2016-10-04 02:00] VITALS: BP 117/81
[2016-10-04] MEDS: IPRATROPIUM 0.5MG/ALBUTEROL 2.5MG INH SOL UD 3ML (DUONEB)(J7620) NEB SCH ×4 (02:00→20:56)
[2016-10-04] MEDS: LEVOTHYROXINE 75MCG TABLET (0.075MG) PO SCH (05:45)
[2016-10-04] MEDS: LACTULOSE 20 GM/30 ML SYRUP UD PO SCH ×3 (05:45→18:22)
[2016-10-04] MEDS: LEVOTHYROXINE 100MCG TABLET (0.1MG) PO SCH (05:45)
[2016-10-04 07:52] LABS: ALBUMIN 2.5 GM/DL (3.2-5.2); ALBUMIN/GLOBULIN RATIO 0.83 (1.00-1.93); ALKALINE PHOSPHATASE 296 U/L (45-117); ALT/SGPT 22 U/L (12-78); ANION GAP 12 MEQ/L (8-16); AST/SGOT 23 U/L (15-37); BILIRUBIN,TOTAL 0.9 MG/DL (0.2-1.0); BLOOD UREA NITROGEN 37 MG/DL (7-18); CALCIUM LEVEL 9.1 MG/DL (8.8-10.2); CARBON DIOXIDE LEVEL 18 MEQ/L (21-32); CHLORIDE LEVEL 106 MEQ/L (98-107); CREATININE FOR GFR 1.46 MG/DL (0.70-1.30); GLOMERULAR FILTRATION RATE 50.7 (>42); GLUCOSE, FASTING 204 MG/DL (83-110); POTASSIUM SERUM 4.9 MEQ/L (3.5-5.1); SODIUM LEVEL 136 MEQ/L (136-145); TOTAL PROTEIN 5.5 GM/DL (6.4-8.2)
[2016-10-04] MEDS: ONDANSETRON 4MG/2ML VIAL (J2405) IV PRN (08:07)
[2016-10-04] MEDS: HumaLOG INSULIN (NovoLOG) PER UNIT SC SCH ×4 (08:07→21:00)
[2016-10-04 08:32] LABS: BASO % 0.4 % (0.0-1.0); EOS # 0.1 K/mm3 (0.0-0.50); EOS % 1.6 % (0.0-3.0); LARGE UNSTAINED CELL # 0.1 K/mm3 (0.0-0.4); LARGE UNSTAINED CELL % 2.5 % (0.0-4.0); LYMPH # 1.2 K/mm3 (1.5-4.5); LYMPH % 19.1 % (24.0-44.0); MEAN CORPUSCULAR HEMOGLOBIN 29.6 pg (27.0-33.0); MEAN CORPUSCULAR HGB CONC 30.5 g/dl (32.0-36.5); MONO # 0.6 K/mm3 (0.0-0.8); NEUTROPHILS # 3.6 K/mm3 (1.8-7.7); NEUTROPHILS % 66.4 % (36.0-66.0); PLATELET COUNT, AUTOMATED 257 k/mm3 (150-450); RED CELL DISTRIBUTION WIDTH 16.7 % (11.5-14.5); WHITE BLOOD COUNT 5.4 K/mm3 (4.0-10.0)
[2016-10-04] MEDS: CLOTRIMAZOLE 1% TOPICAL CREAM 30GM TOP SCH ×4 (09:20→21:35)
[2016-10-04] MEDS: NYSTATIN 100,000 UNITS/GM TOPICAL PWD 15 GM TOP SCH ×2 (09:20→21:35)
[2016-10-04] MEDS: ANALGESIC BALM CRM 120 GM TOP PRN (09:21)
[2016-10-04 10:00] VITALS: BP 111/76
[2016-10-04] MEDS: COLCHICINE 0.6 MG TAB PO SCH ×2 (10:50→21:34)
[2016-10-04] MEDS: GABAPENTIN 300 MG CAP PO SCH ×2 (10:50→21:33)
[2016-10-04] MEDS: rifAXIMin 550 MG TAB (XIFAXAN) PO SCH ×2 (10:50→21:33)
[2016-10-04] MEDS: DIVALPROEX 250MG *ER* TAB PO SCH ×2 (10:50→21:34)
[2016-10-04] MEDS: risperiDONE 0.25 MG TAB PO SCH ×2 (10:50→21:33)
[2016-10-04] MEDS: ISOSORBIDE DIN. (ISORDIL) 5 MG TAB PO SCH (10:51)
[2016-10-04] MEDS: DABIGATRAN ETEXILATE 75 MG CAP (PRADAXA) PO SCH ×2 (10:51→21:34)
[2016-10-04] MEDS: LEVEMIR (INSULIN DETEMIR) 1 UNITS/0.01ML SC SCH ×2 (10:52→21:35)
--- NOTE | 2016-10-04 10:54 | IPNPDOC ---
Text Note Date of Service The patient was seen on 10/04/16. NOTE Subjective: Patient is a 71 year old male with a PMHx of COPD, PINKY, Diastolic CHF , A. fib (on Pradaxa), AV block (s/p PM), HTN, DM2, Seizure disorder, Hypothyroidism, Gout, Obesity, GERD, Retinal detachment of right / Macular degeneration of Left, Chronic venous stasis with stasis dermatitis, Tremors, CKD3, Pulmonary HTN, Hydrocele and varicocele on Left. Presented to the ER with complaints of right leg pain, warmth and redness, found to be 2/2 Cellulitis. He has completed therapy with Ceftaroline and Doxycycline. Remainder of hospital stay significant for extended waxing/waning mentation. Patient was seen and examined at the bedside. Complains of nausea this morning. Also admits to polyuria, and dysuria today. Although he is AAOx3, he is a questionable historian. Objective: Vitals (See below) General: no acute distress, comfortable HEENT: NC, AT CVS: RRR, +S1S2 Lungs: Fair air entry b/l, no appreciable wheezing Abdomen: Soft, distended, NT Extremities: Trace edema, - Calf tenderness, chronic venous stasis changes Assessment and plan: 1. Acute metabolic encephalopathy - possibly 2/2 elevated ammonia - Awake and alert; slow to process thoughts - Still without any focal deficits - Ammonia level has been slowly increasing - patient receiving lactulose with daily bowel movements - CT head 09/24: small vessel ischemic disease and moderate volume loss - c/w lactulose titrated to bowel movements - Neurology has been following; possible could take days to weeks to resolve - c/w Risperidone for agitation 2. s/p Right LE cellulitis - Redness, warmth and tenderness have resolved - Physical shows resolution or erythema / warmth / tenderness - No leukocytosis of elevation of lactic acid - s/p Antibiotics (Ceftaroline and Doxycycline) 3. s/p Respiratory distress - possibly 2/2 fluid overload, PINKY / OHS - requiring supplemental oxygen - CT chest 09/18: No infiltrates, effusions or masses - CXR 09/22: unchanged - c/w supplemental oxygen and continue to titrate down - c/w acapella and incentive spirometry 4. Hypernatremia - resolved - Free water deficit of 2.9 L (target Na of 140) - dc IVF - will follow BMP 5. Chronic compensated diastolic CHF - ECHO 06/2016: EF 65%, moderate pulmonary HTN - appears compensated 6. PINKY - c/w CPAP at night 7. s/p Hypermagnesemia - s/p Mg supplementation 8. AV block - s/p PM 9. HTN - BP well controlled; has been on lower side of normal - s/p IV fluids - c/w Isosorbide dinitrate 10. DM2 - c/w ISS 11. Seizure disorder - c/w reduced dose depakote (250 BID) 12. Hypothyroidism - c/w Synthroid 13. Gout - c/w Allopurinol and Colchicine 14. s/p GERARDO - Cr now at baseline 15. A. fib - rate controlled with Bisoprolol with holding parameters - s/p Pacemaker - c/w anticoagulation with Pradaxa 16. GERD - c/w Prilosec 17. DVT prophylaxis - on full anticoagulation with Pradaxa Disposition: - Awaiting improvement in mental status - Will need to work with physical therapy thereafter - Disposition based on PT recommendations VSChelsy, I+O VSChelsy I+O Laboratory Tests 10/04/16 06:46 Calcium Level 9.1, Aspartate Amino Transf (AST/SGOT) 23, Alanine Aminotransferase (ALT/SGPT) 22, Total Creatine Kinase 26 L, Alkaline Phosphatase 296 H, Total Bilirubin 0.9, Total Protein 5.5 L, Albumin 2.5 L 10/04/16 07:53 Red Blood Count 4.61, Mean Corpuscular Volume 97.0 H, Mean Corpuscular Hemoglobin 29.6, Mean Corpuscular Hemoglobin Concent 30.5 L, Red Cell Distribution Width 16.7 H, Neutrophils (%) (Auto) 66.4 H, Lymphocytes (%) (Auto ) 19.1 L, Monocytes (%) (Auto) 10.0 H, Eosinophils (%) (Auto) 1.6, Basophils (% ) (Auto) 0.4, Neutrophils # (Auto) 3.6, Lymphocytes # (Auto) 1.2 L, Monocytes # (Auto) 0.6, Eosinophils # (Auto) 0.1, Basophils # (Auto) 0.0 Vital Signs Date Time Temp Pulse Resp B/P (MAP) Pulse Ox O2 Delivery O2 Flow Rate FiO2 10/04/16 10:00 97.8 76 18 111/76 (74) 93 Nasal Cannula 3.0 I&O- Last 24 Hours up to 6 AM 10/04/16 06:00 Intake Total 1780 ml Output Total 0 ml Balance 1780 ml ELIDA PALMA MD Oct 04, 2016 10:54
--- NOTE | 2016-10-04 12:24 | REP ---
CT of the abdomen and pelvis without IV or bowel contrast: Comparison is 2016. Within the visualized lower lung newman. There are small infiltrates in the posterior sulci bilaterally as an interval change. There is abdominal ascites surrounding the liver and spleen and extending into the colic gutters bilaterally as an interval change. There is no ascites in the pelvis. The liver and spleen are enlarged as previously. There is a 9 mm hypodensity at the inferior tip of the hepatic right lobe. This is nonspecific and cannot be further evaluated by CT. This was obscured on the prior study from motion artifact. The the patient has a cholecystectomy. There is ascites surrounding the pancreas. The pancreas appears normal size. The adrenals are unremarkable. There are bilateral renal cortical cysts, unchanged. There is no hydronephrosis. There are no renal calculi. The abdominal aorta demonstrates mild ectasia of the infrarenal portion measuring up to 3.2 cm in diameter. This is not significantly changed. There is no bowel distension or obstruction. Pelvis: There is no ascites or adenopathy. The bladder is unremarkable. The pelvic bowel loops are unremarkable. Impression: There is abdominal ascites as an interval change. There is a nonspecific 9 mm hypodensity at the inferior tip of the liver. Liver and spleen are enlarged, unchanged. There are small bibasilar infiltrates in the visualized lower lung newman. There are bilateral renal cortical cysts, unchanged. Signed by Jason Ceron MD 10/04/2016 12:15 P
[2016-10-04 14:00] VITALS: BP 126/79
[2016-10-04 14:59] LABS: MICROSCOPIC INDICATED? MAN YES (NO)
[2016-10-04 16:16] LABS: BACTERIA, URINE LARGE AMOUNT; HYALINE CAST, URINE NONE SEEN /lpf (0-1); SQUAMOUS EPITHELIAL CELL URINE NONE SEEN /hpf (SMALL AMT); WBC, URINE TNTC /hpf (0-3)
[2016-10-04 16:17] LABS: MICROSCOPIC EXAM PERFORMED
[2016-10-04 16:23] LABS: TOTAL PROTEIN, BODY FLUID 0.6 G/DL (NOT ESTABLISHED)
[2016-10-04 17:32] LABS: BF DIFF IF INDICATED? YES (NO); RBC ASCITES FLUID < 10 (<10mm3 cells/uL); TNC ASCITES FLUID 92 cells/uL (0-20)
[2016-10-04 18:00] VITALS: BP 119/75
--- NOTE | 2016-10-04 18:28 | REP ---
ULTRASOUND-GUIDED PARACENTESIS: The procedure was performed under the direct supervision of Dr. Andino. The risks and benefits of the procedure were explained to the patient and informed consent was obtained. The largest pocket of fluid was localized in the left lower quadrant using ultrasound guidance. The skin was prepped and draped in a sterile fashion. 1% Lidocaine was used as a local anesthetic. Using ultrasound guidance, an #8-[place] [id number] catheter was inserted using trocar technique. 450 mL of clear yellow fluid was withdrawn and sent to the lab. The patient tolerated the procedure well and there were no immediate complications. Reviewed by ANTHONY Carlisle 10/05/2016 05:07 PEdited and Signed by Jason Andino MD 10/05/2016 05:20 P
[2016-10-04 19:35] LABS: CC BF DIFF EXAM CYTOCENTRIFUGE
[2016-10-04 19:46] LABS: SPEC. GRAVITY BODY FLUIDS 1.009 (NOT ESTABLISHED)
[2016-10-04] MEDS: ASCORBIC ACID 500 MG TAB PO SCH (21:33)
[2016-10-04] MEDS: OMEPRAZOLE 20 MG CAP PO SCH (21:33)
[2016-10-04] MEDS: BISOPROLOL FUMARATE 10 MG TAB PO SCH (21:33)
[2016-10-04] MEDS: ASPIRIN 81 MG ENTERIC TAB PO SCH (21:34)
[2016-10-04] MEDS: VITAMIN D 1,000 INTERNATIONAL UNITS TABLET PO SCH (21:34)
[2016-10-04] MEDS: ALLOPURINOL 300 MG TAB PO SCH (21:34)
[2016-10-04] MEDS: COLESEVELAM 625 MG TAB (WELCHOL) PO SCH (21:34)
--- NOTE | 2016-10-04 21:38 | ECGEPIP ---
Stationary ECG Study [facility] Test Date: 2016-10-03 Pat Name: MALLORIE MOYA Department: Room: [place] [address] Gender: M Faculty Support Coordinator: KAILASH : 1945 Requested By: HAYDE PHAN Order Number: [id number] Reading MD: Edwardo Zhou Measurements Intervals [place] Rate: 86 P: MN: 0 QRS: -47 QRSD: 138 T: 119 QT: 399 QTc: 478 Interpretive Statements ATRIAL FIBRILLATION RIGHT BUNDLE BRANCH BLOCK LEFT ANTERIOR FASCICULAR BLOCK ANTERIOR MYOCARDIAL INFARCTION, PROBABLY OLD MODERATE T-WAVE ABNORMALITY, CONSIDER LATERAL ISCHEMIA Compared to the last 2 tracings in the system, pacemaker activity was noted and atrial fibrillation is not new Electronically Signed On 10-04-2016 21:37:55 EDT by Edwardo Zhou
[2016-10-04 22:00] VITALS: BP 120/77
[2016-10-05 02:00] VITALS: BP 100/69
[2016-10-05] MEDS: IPRATROPIUM 0.5MG/ALBUTEROL 2.5MG INH SOL UD 3ML (DUONEB)(J7620) NEB SCH ×4 (02:00→20:13)
[2016-10-05] MEDS: LACTULOSE 20 GM/30 ML SYRUP UD PO SCH ×4 (05:42→18:00)
[2016-10-05] MEDS: LEVOTHYROXINE 100MCG TABLET (0.1MG) PO SCH (05:43)
[2016-10-05] MEDS: LEVOTHYROXINE 75MCG TABLET (0.075MG) PO SCH (05:43)
[2016-10-05 06:00] VITALS: BP 105/65
[2016-10-05 08:40] LABS: ALBUMIN 2.4 GM/DL (3.2-5.2); ALBUMIN/GLOBULIN RATIO 0.96 (1.00-1.93); BILIRUBIN,TOTAL 0.9 MG/DL (0.2-1.0); CALCIUM LEVEL 9.2 MG/DL (8.8-10.2); CREATININE FOR GFR 1.34 MG/DL (0.70-1.30); GLOMERULAR FILTRATION RATE 55.9 (>42); POTASSIUM SERUM 5.1 MEQ/L (3.5-5.1); TOTAL PROTEIN 4.9 GM/DL (6.4-8.2)
[2016-10-05 08:43] LABS: ADD MANUAL DIFFER YES; MEAN CORPUSCULAR HEMOGLOBIN 29.8 pg (27.0-33.0); MEAN CORPUSCULAR HGB CONC 30.9 g/dl (32.0-36.5); MEAN CORPUSCULAR VOLUME 96.5 fl (80.0-96.0); PLATELET COUNT, AUTOMATED 287 k/mm3 (150-450); RED CELL DISTRIBUTION WIDTH 16.8 % (11.5-14.5); WHITE BLOOD COUNT 8.5 K/mm3 (4.0-10.0)
[2016-10-05] MEDS: GABAPENTIN 300 MG CAP PO SCH ×2 (08:51→21:44)
[2016-10-05] MEDS: DABIGATRAN ETEXILATE 75 MG CAP (PRADAXA) PO SCH ×2 (08:51→21:43)
[2016-10-05] MEDS: risperiDONE 0.25 MG TAB PO SCH ×2 (08:51→21:39)
[2016-10-05] MEDS: COLCHICINE 0.6 MG TAB PO SCH ×2 (08:52→21:39)
[2016-10-05] MEDS: HumaLOG INSULIN (NovoLOG) PER UNIT SC SCH ×4 (08:52→21:00)
[2016-10-05] MEDS: rifAXIMin 550 MG TAB (XIFAXAN) PO SCH ×2 (08:52→21:38)
[2016-10-05] MEDS: NYSTATIN 100,000 UNITS/GM TOPICAL PWD 15 GM TOP SCH ×2 (08:53→21:41)
[2016-10-05] MEDS: LEVEMIR (INSULIN DETEMIR) 1 UNITS/0.01ML SC SCH ×2 (08:53→21:40)
[2016-10-05] MEDS: DIVALPROEX 250MG *ER* TAB PO SCH ×2 (08:54→21:44)
[2016-10-05] MEDS: ISOSORBIDE DIN. (ISORDIL) 5 MG TAB PO SCH (09:00)
[2016-10-05 10:00] VITALS: BP 100/67
[2016-10-05 10:05] LABS: BANDS 2 % (< 11)
[2016-10-05 10:06] LABS: ANISOCYTOSIS 1+; POLYCHROMASIA 1+
[2016-10-05] MEDS: CLOTRIMAZOLE 1% TOPICAL CREAM 30GM TOP SCH ×4 (10:42→21:40)
--- NOTE | 2016-10-05 12:06 | IPNPDOC ---
Text Note Date of Service The patient was seen on 10/05/16. NOTE Subjective: Patient is a 71 year old male with a PMHx of COPD, PINKY, Diastolic CHF , A. fib (on Pradaxa), AV block (s/p PM), HTN, DM2, Seizure disorder, Hypothyroidism, Gout, Obesity, GERD, Retinal detachment of right / Macular degeneration of Left, Chronic venous stasis with stasis dermatitis, Tremors, CKD3, Pulmonary HTN, Hydrocele and varicocele on Left. Presented to the ER with complaints of right leg pain, warmth and redness, found to be 2/2 Cellulitis. He has completed therapy with Ceftaroline and Doxycycline. Remainder of hospital stay significant for extended waxing/waning mentation. Patient was seen and examined at the bedside. No new medical complaints today. Still admits to polyuria, and dysuria today. Poor historian. Objective: Vitals (See below) General: no acute distress, comfortable, lying in bed HEENT: NC, AT CVS: RRR, +S1S2 Lungs: Fair air entry b/l, no appreciable wheezing Abdomen: Soft, distended, NT Extremities: Trace edema, - Calf tenderness, chronic venous stasis changes Psych: oriented to person and time with prompting Assessment and plan: 1. Acute metabolic encephalopathy - possibly 2/2 elevated ammonia - Awake and alert; slow to process thoughts - Still without any focal deficits - Ammonia level has been slowly increasing - patient receiving lactulose with daily bowel movements - CT head 09/24: small vessel ischemic disease and moderate volume loss - c/w lactulose titrated to bowel movements - Neurology has been following; possible could take several days to weeks to resolve - c/w Risperidone for agitation 2. s/p Right LE cellulitis - Redness, warmth and tenderness have resolved - Physical shows resolution or erythema / warmth / tenderness - No leukocytosis of elevation of lactic acid - s/p Antibiotics (Ceftaroline and Doxycycline) 3. s/p Respiratory distress - possibly 2/2 fluid overload, PINKY / OHS - requiring supplemental oxygen - CT chest 09/18: No infiltrates, effusions or masses - CXR 09/22: unchanged - c/w supplemental oxygen and continue to titrate down - c/w acapella and incentive spirometry 4. Hypernatremia - resolved - Free water deficit of 2.9 L (target Na of 140) - dc IVF - will follow BMP 5. Chronic compensated diastolic CHF - ECHO 06/2016: EF 65%, moderate pulmonary HTN - appears compensated 6. PINKY - c/w CPAP at night 7. s/p Hypermagnesemia - s/p Mg supplementation 8. AV block - s/p PM 9. HTN - BP well controlled; has been on lower side of normal - s/p IV fluids - c/w Isosorbide dinitrate 10. DM2 - c/w ISS 11. Seizure disorder - c/w reduced dose depakote (250 BID) 12. Hypothyroidism - c/w Synthroid 13. Gout - c/w Allopurinol and Colchicine 14. s/p GERARDO - Cr now at baseline 15. A. fib - rate controlled with Bisoprolol with holding parameters - s/p Pacemaker - c/w anticoagulation with Pradaxa 16. GERD - c/w Prilosec 17. DVT prophylaxis - on full anticoagulation with Pradaxa Disposition: - will require placement VS,Fishbone, I+O VS, Fishbone, I+O Laboratory Tests 10/05/16 07:37 Red Blood Count 4.57, Mean Corpuscular Volume 96.5 H, Mean Corpuscular Hemoglobin 29.8, Mean Corpuscular Hemoglobin Concent 30.9 L, Red Cell Distribution Width 16.8 H, Calcium Level 9.2, Aspartate Amino Transf (AST/SGOT) 37, Alanine Aminotransferase (ALT/SGPT) 21, Alkaline Phosphatase 268 H, Total Bilirubin 0.9, Total Protein 4.9 L, Albumin 2.4 L Vital Signs Date Time Temp Pulse Resp B/P (MAP) Pulse Ox O2 Delivery O2 Flow Rate FiO2 10/05/16 09:00 104/64 10/05/16 06:00 96.1 59 18 93 Nasal Cannula 3.0 I&O- Last 24 Hours up to 6 AM 10/05/16 06:00 Intake Total 1060 ml Balance 1060 ml ELIDA PALMA MD Oct 05, 2016 12:06
[2016-10-05 14:00] VITALS: BP 100/61
[2016-10-05] MEDS: MYCOLOG CREAM 15 GM (NYSTATIN/TRIAMCINOLONE) TOP SCH ×2 (16:05→21:40)
[2016-10-05 18:00] VITALS: BP 104/62
[2016-10-05] MEDS: OMEPRAZOLE 20 MG CAP PO SCH (21:38)
[2016-10-05] MEDS: COLESEVELAM 625 MG TAB (WELCHOL) PO SCH (21:38)
[2016-10-05] MEDS: VITAMIN D 1,000 INTERNATIONAL UNITS TABLET PO SCH (21:38)
[2016-10-05] MEDS: ASCORBIC ACID 500 MG TAB PO SCH (21:39)
[2016-10-05] MEDS: ASPIRIN 81 MG ENTERIC TAB PO SCH (21:39)
[2016-10-05] MEDS: BISOPROLOL FUMARATE 10 MG TAB PO SCH (21:39)
[2016-10-05] MEDS: ALLOPURINOL 300 MG TAB PO SCH (21:39)
[2016-10-05 22:00] VITALS: BP 109/57
[2016-10-06] VITALS (7 sets, daily range): BP systolic 88–110; BP diastolic 52–70
[2016-10-06] MEDS: IPRATROPIUM 0.5MG/ALBUTEROL 2.5MG INH SOL UD 3ML (DUONEB)(J7620) NEB SCH ×4 (01:32→19:48)
[2016-10-06] MEDS: LACTULOSE 20 GM/30 ML SYRUP UD PO SCH ×4 (05:48→17:28)
[2016-10-06] MEDS: LEVOTHYROXINE 100MCG TABLET (0.1MG) PO SCH (05:48)
[2016-10-06] MEDS: LEVOTHYROXINE 75MCG TABLET (0.075MG) PO SCH (05:48)
[2016-10-06 05:57] LABS: BASO % 0.4 % (0.0-1.0); EOS # 0.2 K/mm3 (0.0-0.50); EOS % 2.5 % (0.0-3.0); LARGE UNSTAINED CELL # 0.2 K/mm3 (0.0-0.4); LARGE UNSTAINED CELL % 2.2 % (0.0-4.0); LYMPH # 1.8 K/mm3 (1.5-4.5); MEAN CORPUSCULAR HEMOGLOBIN 29.7 pg (27.0-33.0); MEAN CORPUSCULAR HGB CONC 30.7 g/dl (32.0-36.5); MEAN CORPUSCULAR VOLUME 96.9 fl (80.0-96.0); MONO # 0.7 K/mm3 (0.0-0.8); MONO % 9.1 % (0.0-5.0); NEUTROPHILS # 4.8 K/mm3 (1.8-7.7); NEUTROPHILS % 63.7 % (36.0-66.0); PLATELET COUNT, AUTOMATED 235 k/mm3 (150-450); RED CELL DISTRIBUTION WIDTH 16.7 % (11.5-14.5); WHITE BLOOD COUNT 7.5 K/mm3 (4.0-10.0)
[2016-10-06 06:08] LABS: CALCIUM LEVEL 8.9 MG/DL (8.8-10.2); CREATININE FOR GFR 1.41 MG/DL (0.70-1.30); GLOMERULAR FILTRATION RATE 52.7 (>42); POTASSIUM SERUM 4.5 MEQ/L (3.5-5.1)
[2016-10-06] MEDS: HumaLOG INSULIN (NovoLOG) PER UNIT SC SCH ×4 (07:30→21:00)
[2016-10-06] MEDS: COLCHICINE 0.6 MG TAB PO SCH ×2 (08:22→22:14)
[2016-10-06] MEDS: risperiDONE 0.25 MG TAB PO SCH ×2 (08:22→22:42)
[2016-10-06] MEDS: rifAXIMin 550 MG TAB (XIFAXAN) PO SCH ×2 (08:23→21:00)
[2016-10-06] MEDS: DIVALPROEX 250MG *ER* TAB PO SCH ×2 (08:23→22:14)
[2016-10-06] MEDS: ISOSORBIDE DIN. (ISORDIL) 5 MG TAB PO SCH (08:23)
[2016-10-06] MEDS: GABAPENTIN 300 MG CAP PO SCH ×2 (08:23→22:14)
[2016-10-06] MEDS: DABIGATRAN ETEXILATE 75 MG CAP (PRADAXA) PO SCH ×2 (08:24→22:40)
[2016-10-06] MEDS: LEVEMIR (INSULIN DETEMIR) 1 UNITS/0.01ML SC SCH ×2 (08:24→22:12)
[2016-10-06] MEDS: MYCOLOG CREAM 15 GM (NYSTATIN/TRIAMCINOLONE) TOP SCH ×3 (08:25→22:16)
[2016-10-06] MEDS: CLOTRIMAZOLE 1% TOPICAL CREAM 30GM TOP SCH ×4 (08:25→22:16)
[2016-10-06] MEDS: NYSTATIN 100,000 UNITS/GM TOPICAL PWD 15 GM TOP SCH ×2 (08:26→22:17)
[2016-10-06] MEDS ORDERED: SODIUM CHLORIDE 0.9% 1000 ML IV ONE (10:30)
[2016-10-06] MEDS ORDERED: NS 500 ML IV ONE (10:30)
--- NOTE | 2016-10-06 10:30 | IPNPDOC ---
Text Note Date of Service The patient was seen on 10/06/16. NOTE Subjective: Patient is a 71 year old male with a PMHx of COPD, PINKY, Diastolic CHF , A. fib (on Pradaxa), AV block (s/p PM), HTN, DM2, Seizure disorder, Hypothyroidism, Gout, Obesity, GERD, Retinal detachment of right / Macular degeneration of Left, Chronic venous stasis with stasis dermatitis, Tremors, CKD3, Pulmonary HTN, Hydrocele and varicocele on Left. Presented to the ER with complaints of right leg pain, warmth and redness, found to be 2/2 Cellulitis. He has completed therapy with Ceftaroline and Doxycycline. Remainder of hospital stay significant for extended waxing/waning mentation. Patient seen and examined at bedside. No new medical complaints today. Mentation still waxing and waning. Poor historian. Objective: Vitals (See below) General: no acute distress, comfortable, lying in bed HEENT: NC, AT CVS: RRR, +S1S2 Lungs: Fair air entry b/l, no appreciable wheezing , left chest wall PPM Abdomen: Soft, distended, NT Extremities: Trace edema, - Calf tenderness, chronic venous stasis changes Psych: oriented to person and time with prompting Assessment and plan: 1. Acute metabolic encephalopathy - possibly 2/2 elevated ammonia - Awake and alert; slow to process thoughts - Still without any focal deficits - Ammonia level has been slowly increasing - patient receiving lactulose with daily bowel movements - CT head 09/24: small vessel ischemic disease and moderate volume loss - c/w lactulose titrated to bowel movements - Neurology has been following; possible could take several days to weeks to resolve - c/w Risperidone for agitation 2. s/p Right LE cellulitis - Redness, warmth and tenderness have resolved - Physical shows resolution or erythema / warmth / tenderness - No leukocytosis of elevation of lactic acid - s/p Antibiotics (Ceftaroline and Doxycycline) 3. s/p Respiratory distress - possibly 2/2 fluid overload, PINKY / OHS - requiring supplemental oxygen - CT chest 09/18: No infiltrates, effusions or masses - CXR 09/22: unchanged - c/w supplemental oxygen and continue to titrate down - c/w acapella and incentive spirometry 4. Hypernatremia - resolved - Free water deficit of 2.9 L (target Na of 140) - dc IVF - will follow BMP 5. Chronic compensated diastolic CHF - ECHO 06/2016: EF 65%, moderate pulmonary HTN - appears compensated 6. PINKY - c/w CPAP at night 7. s/p Hypermagnesemia - s/p Mg supplementation 8. AV block - s/p PM 9. HTN - slightly low today - will administer fluid bolus - has been on lower side of normal - c/w Isosorbide dinitrate 10. DM2 - c/w ISS 11. Seizure disorder - c/w reduced dose depakote (250 BID) 12. Hypothyroidism - c/w Synthroid 13. Gout - c/w Allopurinol and Colchicine 14. s/p GERARDO - Cr now at baseline 15. A. fib - rate controlled with Bisoprolol with holding parameters - s/p Pacemaker - c/w anticoagulation with Pradaxa 16. GERD - c/w Prilosec 17. DVT prophylaxis - on full anticoagulation with Pradaxa Disposition: - will require placement VS,Fishbone, I+O VS, Fishbone, I+O Laboratory Tests 10/06/16 04:54 Red Blood Count 4.43, Mean Corpuscular Volume 96.9 H, Mean Corpuscular Hemoglobin 29.7, Mean Corpuscular Hemoglobin Concent 30.7 L, Red Cell Distribution Width 16.7 H, Neutrophils (%) (Auto) 63.7, Lymphocytes (%) (Auto) 22.0 L, Monocytes (%) (Auto) 9.1 H, Eosinophils (%) (Auto) 2.5, Basophils (%) ( Auto) 0.4, Neutrophils # (Auto) 4.8, Lymphocytes # (Auto) 1.8, Monocytes # (Auto ) 0.7, Eosinophils # (Auto) 0.2, Basophils # (Auto) 0.0, Calcium Level 8.9 Vital Signs Date Time Temp Pulse Resp B/P (MAP) Pulse Ox O2 Delivery O2 Flow Rate FiO2 10/06/16 08:23 118/76 10/06/16 06:00 96.9 67 18 93 Nasal Cannula 3.0 I&O- Last 24 Hours up to 6 AM 10/06/16 06:00 Intake Total 600 ml Output Total 0 ml Balance 600 ml ELIDA PALMA MD Oct 06, 2016 10:30
[2016-10-06] MEDS: VITAMIN D 1,000 INTERNATIONAL UNITS TABLET PO SCH ×2 (21:00→22:41)
[2016-10-06] MEDS: ASPIRIN 81 MG ENTERIC TAB PO SCH (22:13)
[2016-10-06] MEDS: COLESEVELAM 625 MG TAB (WELCHOL) PO SCH (22:14)
[2016-10-06] MEDS: ASCORBIC ACID 500 MG TAB PO SCH (22:14)
[2016-10-06] MEDS: BISOPROLOL FUMARATE 10 MG TAB PO SCH (22:15)
[2016-10-06] MEDS: ALLOPURINOL 300 MG TAB PO SCH (22:15)
[2016-10-06] MEDS: OMEPRAZOLE 20 MG CAP PO SCH (22:42)
[2016-10-07] MEDS: IPRATROPIUM 0.5MG/ALBUTEROL 2.5MG INH SOL UD 3ML (DUONEB)(J7620) NEB SCH ×4 (01:32→20:02)
[2016-10-07 02:00] VITALS: BP 107/62
[2016-10-07 05:39] LABS: BASO % 0.3 % (0.0-1.0); EOS # 0.1 K/mm3 (0.0-0.50); EOS % 1.7 % (0.0-3.0); LARGE UNSTAINED CELL # 0.2 K/mm3 (0.0-0.4); LARGE UNSTAINED CELL % 1.7 % (0.0-4.0); LYMPH # 1.3 K/mm3 (1.5-4.5); LYMPH % 14.1 % (24.0-44.0); MEAN CORPUSCULAR HEMOGLOBIN 29.9 pg (27.0-33.0); MEAN CORPUSCULAR HGB CONC 30.7 g/dl (32.0-36.5); MEAN CORPUSCULAR VOLUME 97.5 fl (80.0-96.0); MONO # 0.7 K/mm3 (0.0-0.8); MONO % 8.1 % (0.0-5.0); NEUTROPHILS # 6.2 K/mm3 (1.8-7.7); NEUTROPHILS % 74.1 % (36.0-66.0); PLATELET COUNT, AUTOMATED 227 k/mm3 (150-450); RED CELL DISTRIBUTION WIDTH 16.8 % (11.5-14.5); WHITE BLOOD COUNT 8.4 K/mm3 (4.0-10.0)
[2016-10-07 06:00] VITALS: BP 99/63
[2016-10-07] MEDS: LEVOTHYROXINE 75MCG TABLET (0.075MG) PO SCH (06:00)
[2016-10-07] MEDS: LEVOTHYROXINE 100MCG TABLET (0.1MG) PO SCH (06:00)
[2016-10-07] MEDS: LACTULOSE 20 GM/30 ML SYRUP UD PO SCH ×5 (06:00→23:59)
[2016-10-07 06:18] LABS: ANION GAP 12 MEQ/L (8-16); BLOOD UREA NITROGEN 44 MG/DL (7-18); CALCIUM LEVEL 8.8 MG/DL (8.8-10.2); CARBON DIOXIDE LEVEL 14 MEQ/L (21-32); CHLORIDE LEVEL 118 MEQ/L (98-107); CREATININE FOR GFR 1.13 MG/DL (0.70-1.30); GLOMERULAR FILTRATION RATE > 60.0 (>42); GLUCOSE, FASTING 107 MG/DL (83-110); POTASSIUM SERUM 4.6 MEQ/L (3.5-5.1); SODIUM LEVEL 144 MEQ/L (136-145)
[2016-10-07] MEDS: COLCHICINE 0.6 MG TAB PO SCH ×2 (08:09→21:51)
[2016-10-07] MEDS: risperiDONE 0.25 MG TAB PO SCH ×2 (08:10→21:50)
[2016-10-07] MEDS: ISOSORBIDE DIN. (ISORDIL) 5 MG TAB PO SCH (08:10)
[2016-10-07] MEDS: rifAXIMin 550 MG TAB (XIFAXAN) PO SCH ×2 (08:10→21:51)
[2016-10-07] MEDS: GABAPENTIN 300 MG CAP PO SCH ×2 (08:10→21:51)
[2016-10-07] MEDS: DIVALPROEX 250MG *ER* TAB PO SCH ×2 (08:10→21:50)
[2016-10-07] MEDS: HumaLOG INSULIN (NovoLOG) PER UNIT SC SCH ×4 (08:11→21:00)
[2016-10-07] MEDS: LEVEMIR (INSULIN DETEMIR) 1 UNITS/0.01ML SC SCH ×2 (08:11→21:53)
[2016-10-07] MEDS: CLOTRIMAZOLE 1% TOPICAL CREAM 30GM TOP SCH ×4 (08:12→21:53)
[2016-10-07] MEDS: ANALGESIC BALM CRM 120 GM TOP PRN (08:13)
[2016-10-07] MEDS: MYCOLOG CREAM 15 GM (NYSTATIN/TRIAMCINOLONE) TOP SCH ×2 (08:14→16:00)
[2016-10-07] MEDS: NYSTATIN 100,000 UNITS/GM TOPICAL PWD 15 GM TOP SCH ×2 (08:14→21:53)
[2016-10-07] MEDS: DABIGATRAN ETEXILATE 75 MG CAP (PRADAXA) PO SCH ×2 (08:15→21:50)
--- NOTE | 2016-10-07 08:41 | IPNPDOC ---
Text Note Date of Service The patient was seen on 10/07/16. NOTE Subjective: Patient is a 71 year old male with a PMHx of COPD, PINKY, Diastolic CHF , A. fib (on Pradaxa), AV block (s/p PM), HTN, DM2, Seizure disorder, Hypothyroidism, Gout, Obesity, GERD, Retinal detachment of right / Macular degeneration of Left, Chronic venous stasis with stasis dermatitis, Tremors, CKD3, Pulmonary HTN, Hydrocele and varicocele on Left. Presented to the ER with complaints of right leg pain, warmth and redness, found to be 2/2 Cellulitis. He has completed therapy with Ceftaroline and Doxycycline. Remainder of hospital stay significant for extended waxing/waning mentation. Patient seen and examined at bedside. No new medical complaints today. Mentation still waxing and waning. Objective: Vitals (See below) General: no acute distress, comfortable, sitting comfortably in chair HEENT: NC, AT CVS: RRR, +S1S2 Lungs: Fair air entry b/l, no appreciable wheezing , left chest wall PPM Abdomen: Soft, distended, NT Extremities: chronic venous stasis changes Psych: oriented to person and time Assessment and plan: 1. Acute metabolic encephalopathy - possibly 2/2 elevated ammonia - levels improved today - Awake and alert, oriented but poor historian - Still without any focal deficits - CT head 09/24: small vessel ischemic disease and moderate volume loss - c/w lactulose titrated to bowel movements - Neurology has been following; possible could take several days to weeks to resolve - c/w Risperidone for agitation 2. s/p Right LE cellulitis - Redness, warmth and tenderness have resolved - Physical shows resolution or erythema / warmth / tenderness - No leukocytosis of elevation of lactic acid - s/p Antibiotics (Ceftaroline and Doxycycline) 3. s/p Respiratory distress - possibly 2/2 fluid overload, PINKY / OHS - requiring supplemental oxygen - CT chest 09/18: No infiltrates, effusions or masses - CXR 09/22: unchanged - c/w supplemental oxygen and continue to titrate down - c/w acapella and incentive spirometry 4. Hypernatremia - resolved - Free water deficit of 2.9 L (target Na of 140) - dc IVF - will follow BMP 5. Chronic compensated diastolic CHF - ECHO 06/2016: EF 65%, moderate pulmonary HTN - appears compensated 6. PINKY - c/w CPAP at night 7. s/p Hypermagnesemia - s/p Mg supplementation 8. AV block - s/p PM 9. HTN - slightly low today - will administer fluid bolus - has been on lower side of normal - c/w Isosorbide dinitrate 10. DM2 - c/w ISS 11. Seizure disorder - c/w reduced dose depakote (250 BID) 12. Hypothyroidism - c/w Synthroid 13. Gout - c/w Allopurinol and Colchicine 14. s/p GERARDO - Cr now at baseline 15. A. fib - rate controlled with Bisoprolol with holding parameters - s/p Pacemaker - c/w anticoagulation with Pradaxa 16. GERD - c/w Prilosec 17. DVT prophylaxis - on full anticoagulation with Pradaxa Disposition: - will require placement VS,Fishbone, I+O VS, Fishbone, I+O Laboratory Tests 10/07/16 05:20 Calcium Level 8.8 10/07/16 05:31 Red Blood Count 4.58, Mean Corpuscular Volume 97.5 H, Mean Corpuscular Hemoglobin 29.9, Mean Corpuscular Hemoglobin Concent 30.7 L, Red Cell Distribution Width 16.8 H, Neutrophils (%) (Auto) 74.1 H, Lymphocytes (%) (Auto ) 14.1 L, Monocytes (%) (Auto) 8.1 H, Eosinophils (%) (Auto) 1.7, Basophils (%) (Auto) 0.3, Neutrophils # (Auto) 6.2, Lymphocytes # (Auto) 1.3 L, Monocytes # ( Auto) 0.7, Eosinophils # (Auto) 0.1, Basophils # (Auto) 0.0 Vital Signs Date Time Temp Pulse Resp B/P (MAP) Pulse Ox O2 Delivery O2 Flow Rate FiO2 10/07/16 08:10 104/64 10/07/16 06:00 97.3 60 24 93 Nasal Cannula 3.0 I&O- Last 24 Hours up to 6 AM 10/07/16 06:00 Intake Total 1180 ml Output Total 0 ml Balance 1180 ml ELIDA PALMA MD Oct 07, 2016 08:41
[2016-10-07 10:00] VITALS: BP 100/64
[2016-10-07 14:00] VITALS: BP 112/73
[2016-10-07 18:00] VITALS: BP 111/67
[2016-10-07] MEDS: ASPIRIN 81 MG ENTERIC TAB PO SCH (21:51)
[2016-10-07] MEDS: BISOPROLOL FUMARATE 10 MG TAB PO SCH (21:51)
[2016-10-07] MEDS: ALLOPURINOL 300 MG TAB PO SCH (21:51)
[2016-10-07] MEDS: VITAMIN D 1,000 INTERNATIONAL UNITS TABLET PO SCH (21:52)
[2016-10-07] MEDS: COLESEVELAM 625 MG TAB (WELCHOL) PO SCH (21:52)
[2016-10-07] MEDS: OMEPRAZOLE 20 MG CAP PO SCH (21:52)
[2016-10-07] MEDS: ASCORBIC ACID 500 MG TAB PO SCH (21:52)
[2016-10-07 22:00] VITALS: BP 116/71
[2016-10-08] MEDS: IPRATROPIUM 0.5MG/ALBUTEROL 2.5MG INH SOL UD 3ML (DUONEB)(J7620) NEB SCH ×4 (00:54→20:17)
[2016-10-08 02:00] VITALS: BP_SYST 103; BP_SYST 119; BP_DIAS 55; BP_DIAS 71
[2016-10-08] MEDS: LEVOTHYROXINE 100MCG TABLET (0.1MG) PO SCH (05:38)
[2016-10-08] MEDS: LEVOTHYROXINE 75MCG TABLET (0.075MG) PO SCH (05:39)
[2016-10-08] MEDS: LACTULOSE 20 GM/30 ML SYRUP UD PO SCH ×3 (05:39→17:26)
[2016-10-08 06:00] VITALS: BP 103/67
[2016-10-08 06:08] LABS: BASO % 0.2 % (0.0-1.0); EOS % 0.4 % (0.0-3.0); LARGE UNSTAINED CELL # 0.2 K/mm3 (0.0-0.4); LARGE UNSTAINED CELL % 1.7 % (0.0-4.0); LYMPH # 1.1 K/mm3 (1.5-4.5); LYMPH % 8.5 % (24.0-44.0); MEAN CORPUSCULAR HEMOGLOBIN 29.4 pg (27.0-33.0); MEAN CORPUSCULAR HGB CONC 30.3 g/dl (32.0-36.5); MEAN CORPUSCULAR VOLUME 97.1 fl (80.0-96.0); MONO # 0.6 K/mm3 (0.0-0.8); MONO % 5.6 % (0.0-5.0); NEUTROPHILS # 9.2 K/mm3 (1.8-7.7); NEUTROPHILS % 83.6 % (36.0-66.0); PLATELET COUNT, AUTOMATED 263 k/mm3 (150-450); RED CELL DISTRIBUTION WIDTH 16.9 % (11.5-14.5)
[2016-10-08 06:28] LABS: ANION GAP 12 MEQ/L (8-16); BLOOD UREA NITROGEN 40 MG/DL (7-18); CALCIUM LEVEL 8.9 MG/DL (8.8-10.2); CARBON DIOXIDE LEVEL 15 MEQ/L (21-32); CHLORIDE LEVEL 119 MEQ/L (98-107); CREATININE FOR GFR 1.06 MG/DL (0.70-1.30); GLOMERULAR FILTRATION RATE > 60.0 (>42); GLUCOSE, FASTING 126 MG/DL (83-110); POTASSIUM SERUM 4.2 MEQ/L (3.5-5.1); SODIUM LEVEL 146 MEQ/L (136-145)
[2016-10-08] MEDS: HumaLOG INSULIN (NovoLOG) PER UNIT SC SCH ×4 (07:57→21:00)
[2016-10-08] MEDS: LEVEMIR (INSULIN DETEMIR) 1 UNITS/0.01ML SC SCH ×2 (08:39→22:37)
[2016-10-08] MEDS: DABIGATRAN ETEXILATE 75 MG CAP (PRADAXA) PO SCH ×2 (08:39→22:34)
[2016-10-08] MEDS: rifAXIMin 550 MG TAB (XIFAXAN) PO SCH ×2 (08:40→22:33)
[2016-10-08] MEDS: ISOSORBIDE DIN. (ISORDIL) 5 MG TAB PO SCH (08:40)
[2016-10-08] MEDS: DIVALPROEX 250MG *ER* TAB PO SCH ×2 (08:40→22:33)
[2016-10-08] MEDS: GABAPENTIN 300 MG CAP PO SCH ×2 (08:40→22:33)
[2016-10-08] MEDS: risperiDONE 0.25 MG TAB PO SCH ×2 (08:40→21:00)
[2016-10-08] MEDS: NYSTATIN 100,000 UNITS/GM TOPICAL PWD 15 GM TOP SCH ×2 (08:41→21:00)
[2016-10-08] MEDS: CLOTRIMAZOLE 1% TOPICAL CREAM 30GM TOP SCH ×4 (08:42→22:36)
[2016-10-08] MEDS: COLCHICINE 0.6 MG TAB PO SCH ×2 (09:00→22:33)
[2016-10-08] MEDS: cefTRIAXone SOD 1 GM in D5W MINI-BAG PLUS 50 ML IV SCH (09:00)
[2016-10-08 10:00] VITALS: BP 105/55
--- NOTE | 2016-10-08 10:02 | IPNPDOC ---
Text Note Date of Service The patient was seen on 10/08/16. NOTE Subjective: Patient is a 71 year old male with a PMHx of COPD, PINKY, Diastolic CHF , A. fib (on Pradaxa), AV block (s/p PM), HTN, DM2, Seizure disorder, Hypothyroidism, Gout, Obesity, GERD, Retinal detachment of right / Macular degeneration of Left, Chronic venous stasis with stasis dermatitis, Tremors, CKD3, Pulmonary HTN, Hydrocele and varicocele on Left. Presented to the ER with complaints of right leg pain, warmth and redness, found to be 2/2 Cellulitis. He has completed therapy with Ceftaroline and Doxycycline. Remainder of hospital stay significant for extended waxing/waning mentation. Patient seen and examined at bedside. He has and still does complain of polyuria , although he is a questionable historian. Objective: Vitals (See below) General: no acute distress, comfortable, sitting comfortably in chair HEENT: NC, AT CVS: RRR, +S1S2 Lungs: Fair air entry b/l, no appreciable wheezing, left chest PPM Abdomen: Soft, distended, NT Extremities: chronic venous stasis changes Psych: oriented to person and time Assessment and plan: 1. Acute metabolic encephalopathy - possibly 2/2 elevated ammonia - levels have been improving - complicated with UTI - starting ceftriaxone - cultures/sensitivities noted - Awake and alert, oriented but poor historian - Still without any focal deficits - CT head 09/24: small vessel ischemic disease and moderate volume loss - c/w lactulose titrated to bowel movements - Neurology has been following; possible could take several days to weeks to resolve - c/w Risperidone for agitation 2. UTI - proteus mirabilis - ceftriaxone 2. s/p Right LE cellulitis - Redness, warmth and tenderness have resolved - Physical shows resolution or erythema / warmth / tenderness - No leukocytosis of elevation of lactic acid - s/p Antibiotics (Ceftaroline and Doxycycline) 3. s/p Respiratory distress - possibly 2/2 fluid overload, PINKY / OHS - requiring supplemental oxygen - CT chest 09/18: No infiltrates, effusions or masses - CXR 09/22: unchanged - c/w supplemental oxygen and continue to titrate down - c/w acapella and incentive spirometry 4. Hypernatremia - slightly elevated today - will follow BMP 5. Chronic compensated diastolic CHF - ECHO 06/2016: EF 65%, moderate pulmonary HTN - appears compensated 6. PINKY - c/w CPAP at night 7. s/p Hypermagnesemia - s/p Mg supplementation 8. AV block - s/p PM 9. HTN - slightly low today - will administer fluid bolus - has been on lower side of normal - c/w Isosorbide dinitrate 10. DM2 - c/w ISS 11. Seizure disorder - c/w reduced dose depakote (250 BID) 12. Hypothyroidism - c/w Synthroid 13. Gout - c/w Allopurinol and Colchicine 14. s/p GERARDO - Cr now at baseline 15. A. fib - rate controlled with Bisoprolol with holding parameters - s/p Pacemaker - c/w anticoagulation with Pradaxa 16. GERD - c/w Prilosec 17. DVT prophylaxis - on full anticoagulation with Pradaxa Disposition: - will require placement VS,Fishbone, I+O VS, Fishbone, I+O Laboratory Tests 10/08/16 05:52 Red Blood Count 4.70, Mean Corpuscular Volume 97.1 H, Mean Corpuscular Hemoglobin 29.4, Mean Corpuscular Hemoglobin Concent 30.3 L, Red Cell Distribution Width 16.9 H, Neutrophils (%) (Auto) 83.6 H, Lymphocytes (%) (Auto ) 8.5 L, Monocytes (%) (Auto) 5.6 H, Eosinophils (%) (Auto) 0.4, Basophils (%) ( Auto) 0.2, Neutrophils # (Auto) 9.2 H, Lymphocytes # (Auto) 1.1 L, Monocytes # ( Auto) 0.6, Eosinophils # (Auto) 0.0, Basophils # (Auto) 0.0, Calcium Level 8.9 Vital Signs Date Time Temp Pulse Resp B/P (MAP) Pulse Ox O2 Delivery O2 Flow Rate FiO2 10/08/16 08:40 103/67 10/08/16 06:00 98.0 60 17 92 Room Air 10/08/16 02:00 3.0 I&O- Last 24 Hours up to 6 AM 10/08/16 06:00 Intake Total 180 ml Output Total 0 ml Balance 180 ml ELIDA PALMA MD Oct 08, 2016 10:02
[2016-10-08 14:00] VITALS: BP 129/76
[2016-10-08] MEDS: MYCOLOG CREAM 15 GM (NYSTATIN/TRIAMCINOLONE) TOP SCH ×2 (15:48→22:35)
[2016-10-08 18:00] VITALS: BP 121/74
[2016-10-08 22:00] VITALS: BP 120/69
[2016-10-08] MEDS: ALLOPURINOL 300 MG TAB PO SCH (22:32)
[2016-10-08] MEDS: COLESEVELAM 625 MG TAB (WELCHOL) PO SCH (22:33)
[2016-10-08] MEDS: ASCORBIC ACID 500 MG TAB PO SCH (22:33)
[2016-10-08] MEDS: OMEPRAZOLE 20 MG CAP PO SCH (22:33)
[2016-10-08] MEDS: VITAMIN D 1,000 INTERNATIONAL UNITS TABLET PO SCH (22:34)
[2016-10-08] MEDS: ASPIRIN 81 MG ENTERIC TAB PO SCH (22:34)
[2016-10-08] MEDS: BISOPROLOL FUMARATE 10 MG TAB PO SCH (22:34)
[2016-10-09] MEDS: IPRATROPIUM 0.5MG/ALBUTEROL 2.5MG INH SOL UD 3ML (DUONEB)(J7620) NEB SCH ×4 (01:38→21:25)
[2016-10-09 02:00] VITALS: BP 118/71
[2016-10-09] MEDS: LEVOTHYROXINE 100MCG TABLET (0.1MG) PO SCH (05:45)
[2016-10-09] MEDS: LACTULOSE 20 GM/30 ML SYRUP UD PO SCH ×5 (05:45→23:56)
[2016-10-09] MEDS: LEVOTHYROXINE 75MCG TABLET (0.075MG) PO SCH (05:45)
[2016-10-09 06:00] VITALS: BP 132/50
[2016-10-09 07:27] LABS: BASO % 0.3 % (0.0-1.0); EOS % 0.1 % (0.0-3.0); LARGE UNSTAINED CELL # 0.3 K/mm3 (0.0-0.4); LARGE UNSTAINED CELL % 2.2 % (0.0-4.0); LYMPH # 1.3 K/mm3 (1.5-4.5); LYMPH % 7.9 % (24.0-44.0); MEAN CORPUSCULAR HEMOGLOBIN 29.6 pg (27.0-33.0); MEAN CORPUSCULAR HGB CONC 29.8 g/dl (32.0-36.5); MEAN CORPUSCULAR VOLUME 99.4 fl (80.0-96.0); MONO # 0.7 K/mm3 (0.0-0.8); MONO % 5.9 % (0.0-5.0); NEUTROPHILS # 10.3 K/mm3 (1.8-7.7); NEUTROPHILS % 83.5 % (36.0-66.0); PLATELET COUNT, AUTOMATED 262 k/mm3 (150-450); RED CELL DISTRIBUTION WIDTH 16.9 % (11.5-14.5); WHITE BLOOD COUNT 12.3 K/mm3 (4.0-10.0)
[2016-10-09 07:50] LABS: ANION GAP 12 MEQ/L (8-16); BLOOD UREA NITROGEN 37 MG/DL (7-18); CALCIUM LEVEL 9.2 MG/DL (8.8-10.2); CARBON DIOXIDE LEVEL 14 MEQ/L (21-32); CHLORIDE LEVEL 124 MEQ/L (98-107); CREATININE FOR GFR 1.03 MG/DL (0.70-1.30); GLOMERULAR FILTRATION RATE > 60.0 (>42); GLUCOSE, FASTING 139 MG/DL (83-110); POTASSIUM SERUM 4.5 MEQ/L (3.5-5.1); SODIUM LEVEL 150 MEQ/L (136-145)
[2016-10-09] MEDS: HumaLOG INSULIN (NovoLOG) PER UNIT SC SCH ×4 (09:51→21:00)
[2016-10-09] MEDS: ISOSORBIDE DIN. (ISORDIL) 5 MG TAB PO SCH (09:53)
[2016-10-09] MEDS: rifAXIMin 550 MG TAB (XIFAXAN) PO SCH ×2 (09:54→23:25)
[2016-10-09] MEDS: risperiDONE 0.25 MG TAB PO SCH (09:54)
[2016-10-09] MEDS: GABAPENTIN 300 MG CAP PO SCH ×2 (09:54→23:27)
[2016-10-09] MEDS: cefTRIAXone SOD 1 GM in D5W MINI-BAG PLUS 50 ML IV SCH (09:54)
[2016-10-09] MEDS: DIVALPROEX 250MG *ER* TAB PO SCH ×2 (09:54→23:26)
[2016-10-09] MEDS: CLOTRIMAZOLE 1% TOPICAL CREAM 30GM TOP SCH ×4 (09:55→23:29)
[2016-10-09] MEDS: LEVEMIR (INSULIN DETEMIR) 1 UNITS/0.01ML SC SCH ×2 (09:55→23:56)
[2016-10-09] MEDS: MYCOLOG CREAM 15 GM (NYSTATIN/TRIAMCINOLONE) TOP SCH ×3 (09:55→23:29)
[2016-10-09] MEDS: NYSTATIN 100,000 UNITS/GM TOPICAL PWD 15 GM TOP SCH ×2 (09:55→23:29)
[2016-10-09] MEDS: COLCHICINE 0.6 MG TAB PO SCH ×2 (09:58→23:31)
[2016-10-09 10:00] VITALS: BP 125/77
[2016-10-09] MEDS: D5W 1,000 ML IV SCH ×2 (11:10→23:23)
[2016-10-09] MEDS: DABIGATRAN ETEXILATE 75 MG CAP (PRADAXA) PO SCH ×2 (11:57→23:55)
[2016-10-09 14:00] VITALS: BP 131/62
--- NOTE | 2016-10-09 14:40 | REP ---
Portable chest, single AP view, the patient semi upright, 02:07 p.m.: Comparison is 10/03/2016. Cardiomegaly and pacemaker are again identified, unchanged. The interstitial markings are mildly coarsened compatible with pulmonary vascular engorgement. This appears slightly worse than on the comparison study, particularly on the right. The patient is rotated. There are no pleural effusions or focal infiltrates. Signed by Jason Ceron MD 10/09/2016 02:32 P
[2016-10-09 15:10] LABS: ANION GAP 10 MEQ/L (8-16); BLOOD UREA NITROGEN 41 MG/DL (7-18); CALCIUM LEVEL 9.5 MG/DL (8.8-10.2); CARBON DIOXIDE LEVEL 16 MEQ/L (21-32); CHLORIDE LEVEL 120 MEQ/L (98-107); CREATININE FOR GFR 1.17 MG/DL (0.70-1.30); GLOMERULAR FILTRATION RATE > 60.0 (>42); GLUCOSE, FASTING 208 MG/DL (83-110); POTASSIUM SERUM 4.1 MEQ/L (3.5-5.1); SODIUM LEVEL 146 MEQ/L (136-145)
--- NOTE | 2016-10-09 15:15 | IPNPDOC ---
Text Note Date of Service The patient was seen on 10/09/16. NOTE Subjective: Patient is a 71 year old male with a PMHx of COPD, PINKY, Diastolic CHF , A. fib (on Pradaxa), AV block (s/p PM), HTN, DM2, Seizure disorder, Hypothyroidism, Gout, Obesity, GERD, Retinal detachment of right / Macular degeneration of Left, Chronic venous stasis with stasis dermatitis, Tremors, CKD3, Pulmonary HTN, Hydrocele and varicocele on Left. Presented to the ER with complaints of right leg pain, warmth and redness, found to be 2/2 Cellulitis. He has completed therapy with Ceftaroline and Doxycycline. Remainder of hospital stay significant for extended waxing/waning mentation. Patient seen and examined at bedside. He is still confused. Reports no new complaints this morning. Objective: Vitals (See below) General: no acute distress, comfortable, sitting comfortably in chair HEENT: NC, AT CVS: RRR, +S1S2 Lungs: Fair air entry b/l, no appreciable wheezing Abdomen: Soft, distended, NT Extremities: chronic venous stasis changes Psych: oriented to person and time Assessment and plan: 1. Acute metabolic encephalopathy - possibly 2/2 elevated ammonia, possibly infection, possibly 2/2 hypernatremia - Awake and alert, not fully oriented - Still without any focal deficits - UA / UCx positive for Proteus - CT head 09/24: small vessel ischemic disease and moderate volume loss - c/w lactulose titrated to bowel movements - Neurology has been following; possible could take several days to weeks to resolve - c/w Risperidone for agitation - c/w treatment for UTI (See #2) 2. UTI - proteus mirabilis - c/w ceftriaxone (Day #2) 2. s/p Right LE cellulitis - Redness, warmth and tenderness have resolved - Physical shows resolution or erythema / warmth / tenderness - No leukocytosis of elevation of lactic acid - s/p Antibiotics (Ceftaroline and Doxycycline) 3. s/p Respiratory distress - possibly 2/2 fluid overload, PINKY / OHS - requiring supplemental oxygen - CT chest 09/18: No infiltrates, effusions or masses - CXR 09/22: unchanged - c/w supplemental oxygen and continue to titrate down - c/w acapella and incentive spirometry 4. Hypernatremia - slightly elevated today - will start D5W via peripheral IV line - will follow BMP 5. Chronic compensated diastolic CHF - ECHO 06/2016: EF 65%, moderate pulmonary HTN - appears compensated 6. PINKY - c/w CPAP at night 7. s/p Hypermagnesemia - s/p Mg supplementation 8. AV block - s/p PM 9. HTN - slightly low today - will administer fluid bolus - has been on lower side of normal - c/w Isosorbide dinitrate 10. DM2 - c/w ISS 11. Seizure disorder - c/w reduced dose depakote (250 BID) 12. Hypothyroidism - c/w Synthroid 13. Gout - c/w Allopurinol and Colchicine 14. s/p GERARDO - Cr now at baseline 15. A. fib - rate controlled with Bisoprolol with holding parameters - s/p Pacemaker - c/w anticoagulation with Pradaxa 16. GERD - c/w Prilosec 17. DVT prophylaxis - on full anticoagulation with Pradaxa Disposition: - will require placement VS,Fishbone, I+O VS, Fishbone, I+O Laboratory Tests 10/09/16 07:04 Red Blood Count 4.72, Mean Corpuscular Volume 99.4 H, Mean Corpuscular Hemoglobin 29.6, Mean Corpuscular Hemoglobin Concent 29.8 L, Red Cell Distribution Width 16.9 H, Neutrophils (%) (Auto) 83.5 H, Lymphocytes (%) (Auto ) 7.9 L, Monocytes (%) (Auto) 5.9 H, Eosinophils (%) (Auto) 0.1, Basophils (%) ( Auto) 0.3, Neutrophils # (Auto) 10.3 H, Lymphocytes # (Auto) 1.3 L, Monocytes # (Auto) 0.7, Eosinophils # (Auto) 0.0, Basophils # (Auto) 0.0, Calcium Level 9.2 10/09/16 14:17 Calcium Level 9.5 Vital Signs Date Time Temp Pulse Resp B/P (MAP) Pulse Ox O2 Delivery O2 Flow Rate FiO2 10/09/16 10:00 97.4 59 17 125/77 (93) 91 NIPPV (BIPAP/CPAP) 10/08/16 09:00 3.0 I&O- Last 24 Hours up to 6 AM 10/09/16 05:59 Intake Total 240 ml Output Total 0 ml Balance 240 ml JOE HDEZ MD Oct 09, 2016 15:15
[2016-10-09 18:00] VITALS: BP 112/74
[2016-10-09 22:00] VITALS: BP 127/80
[2016-10-09] MEDS: BISOPROLOL FUMARATE 10 MG TAB PO SCH (23:00)
[2016-10-09] MEDS ORDERED: risperiDONE 0.25 MG TAB PO PRN (23:15)
[2016-10-09] MEDS: OMEPRAZOLE 20 MG CAP PO SCH (23:23)
[2016-10-09] MEDS: COLESEVELAM 625 MG TAB (WELCHOL) PO SCH (23:24)
[2016-10-09] MEDS: ASCORBIC ACID 500 MG TAB PO SCH (23:25)
[2016-10-09] MEDS: ASPIRIN 81 MG ENTERIC TAB PO SCH (23:27)
[2016-10-09] MEDS: VITAMIN D 1,000 INTERNATIONAL UNITS TABLET PO SCH (23:28)
[2016-10-09] MEDS: ALLOPURINOL 300 MG TAB PO SCH (23:30)
[2016-10-10] VITALS: BP 112/68
[2016-10-10] MEDS: IPRATROPIUM 0.5MG/ALBUTEROL 2.5MG INH SOL UD 3ML (DUONEB)(J7620) NEB SCH ×4 (01:15→20:14)
[2016-10-10 02:00] VITALS: BP 115/82
--- NOTE | 2016-10-10 04:30 | IPNPDOC ---
Text Note Date of Service The patient was seen on 10/10/16. NOTE Evening resident and hospitalist were paged due to it was reported patient passed some blood clots in the urine, however it was unclear how much the bleed was. Patient was examined at the bedside. There is no blood at tip of penis, it appeared to be clean, no signs of skin tears, abrasion. Will continue bladder scan currently and notify hospitalist if there is a retention >300 ml. If patient bleed again. Will need further investigation in the am. Patient discussed with attending Dr. Ballard. VS,Chelsy, I+O VS, Chelsy, I+O Laboratory Tests 10/09/16 07:04 Red Blood Count 4.72, Mean Corpuscular Volume 99.4 H, Mean Corpuscular Hemoglobin 29.6, Mean Corpuscular Hemoglobin Concent 29.8 L, Red Cell Distribution Width 16.9 H, Neutrophils (%) (Auto) 83.5 H, Lymphocytes (%) (Auto ) 7.9 L, Monocytes (%) (Auto) 5.9 H, Eosinophils (%) (Auto) 0.1, Basophils (%) ( Auto) 0.3, Neutrophils # (Auto) 10.3 H, Lymphocytes # (Auto) 1.3 L, Monocytes # (Auto) 0.7, Eosinophils # (Auto) 0.0, Basophils # (Auto) 0.0, Calcium Level 9.2 10/09/16 14:17 Calcium Level 9.5 Vital Signs Date Time Temp Pulse Resp B/P (MAP) Pulse Ox O2 Delivery O2 Flow Rate FiO2 10/10/16 00:00 97.8 60 19 112/68 (83) 95 NIPPV (BIPAP/CPAP) 10/09/16 10:00 3.0 I&O- Last 24 Hours up to 6 AM 10/10/16 06:00 Intake Total 240 ml Output Total 0 ml Balance 240 ml GME ATTESTATION GME ATTESTATION My preceptor for this patient encounter was physically present in the building during the encounter and was fully available. As needed, all aspects of the patient interview, examination, medical decision making process, and medical care plan development were reviewed and approved by the preceptor. Preceptor is aware and concurs with the plan as stated in the body of this note and will attest to such by his/her cosignature. HAYDE PHAN DO Oct 10, 2016 04:30
[2016-10-10 06:00] VITALS: BP 112/71
[2016-10-10] MEDS: LEVOTHYROXINE 75MCG TABLET (0.075MG) PO SCH (06:42)
[2016-10-10] MEDS: LEVOTHYROXINE 100MCG TABLET (0.1MG) PO SCH (06:43)
[2016-10-10] MEDS: LACTULOSE 20 GM/30 ML SYRUP UD PO SCH ×3 (06:43→17:46)
[2016-10-10] MEDS: D5W 1,000 ML IV SCH ×2 (06:50→17:45)
[2016-10-10 06:58] LABS: ADD MANUAL DIFFER YES; MEAN CORPUSCULAR HEMOGLOBIN 29.7 pg (27.0-33.0); MEAN CORPUSCULAR HGB CONC 30.9 g/dl (32.0-36.5); PLATELET COUNT, AUTOMATED 208 k/mm3 (150-450); RED CELL DISTRIBUTION WIDTH 16.5 % (11.5-14.5); WHITE BLOOD COUNT 7.5 K/mm3 (4.0-10.0)
[2016-10-10 07:00] LABS: ANION GAP 11 MEQ/L (8-16); BLOOD UREA NITROGEN 38 MG/DL (7-18); CALCIUM LEVEL 8.8 MG/DL (8.8-10.2); CARBON DIOXIDE LEVEL 16 MEQ/L (21-32); CHLORIDE LEVEL 123 MEQ/L (98-107); CREATININE FOR GFR 1.07 MG/DL (0.70-1.30); GLOMERULAR FILTRATION RATE > 60.0 (>42); GLUCOSE, FASTING 157 MG/DL (83-110); POTASSIUM SERUM 3.9 MEQ/L (3.5-5.1); SODIUM LEVEL 150 MEQ/L (136-145)
[2016-10-10 07:39] LABS: EOSINOPHILS 1 % (0-5)
[2016-10-10] MEDS: LEVEMIR (INSULIN DETEMIR) 1 UNITS/0.01ML SC SCH ×2 (08:39→22:26)
[2016-10-10] MEDS: DIVALPROEX 250MG *ER* TAB PO SCH ×2 (08:40→22:23)
[2016-10-10] MEDS: HumaLOG INSULIN (NovoLOG) PER UNIT SC SCH ×4 (08:40→21:00)
[2016-10-10] MEDS: rifAXIMin 550 MG TAB (XIFAXAN) PO SCH (08:40)
[2016-10-10] MEDS: DABIGATRAN ETEXILATE 75 MG CAP (PRADAXA) PO SCH ×2 (08:40→22:14)
[2016-10-10] MEDS: GABAPENTIN 300 MG CAP PO SCH ×2 (08:40→22:23)
[2016-10-10] MEDS: COLCHICINE 0.6 MG TAB PO SCH ×2 (08:40→22:15)
[2016-10-10] MEDS: ISOSORBIDE DIN. (ISORDIL) 5 MG TAB PO SCH (08:42)
[2016-10-10] MEDS: CLOTRIMAZOLE 1% TOPICAL CREAM 30GM TOP SCH ×4 (08:43→22:26)
[2016-10-10] MEDS: cefTRIAXone SOD 1 GM in D5W MINI-BAG PLUS 50 ML IV SCH (08:43)
[2016-10-10] MEDS: MYCOLOG CREAM 15 GM (NYSTATIN/TRIAMCINOLONE) TOP SCH ×3 (08:43→21:00)
[2016-10-10] MEDS: NYSTATIN 100,000 UNITS/GM TOPICAL PWD 15 GM TOP SCH ×2 (08:44→22:27)
[2016-10-10 10:00] VITALS: BP 111/75
--- NOTE | 2016-10-10 13:02 | IPNPDOC ---
Text Note Date of Service The patient was seen on 10/10/16. NOTE Subjective: Patient is a 71 year old male with a PMHx of COPD, PINKY, Diastolic CHF , A. fib (on Pradaxa), AV block (s/p PM), HTN, DM2, Seizure disorder, Hypothyroidism, Gout, Obesity, GERD, Retinal detachment of right / Macular degeneration of Left, Chronic venous stasis with stasis dermatitis, Tremors, CKD3, Pulmonary HTN, Hydrocele and varicocele on Left. Presented to the ER with complaints of right leg pain, warmth and redness, found to be 2/2 Cellulitis. He has completed therapy with Ceftaroline and Doxycycline. Remainder of hospital stay significant for extended waxing/waning mentation. Patient seen and examined at bedside. Still confused, but able to converse. Only oriented to person and place, not time. He denies any other issues at this time. Objective: Vitals (See below) General: no acute distress, comfortable, lying in bed, oriented to person / place only HEENT: NC, AT CVS: RRR, +S1S2 Lungs: Fair air entry b/l, no appreciable wheezing Abdomen: Soft, distended, NT Extremities: chronic venous stasis changes Assessment and plan: 1. Acute metabolic encephalopathy - possibly 2/2 elevated ammonia, possibly 2/2 infection, possibly 2/2 hypernatremia - Awake and alert, not fully oriented - Still without any focal deficits - UA / UCx positive for Proteus - CT head 09/24: small vessel ischemic disease and moderate volume loss - c/w lactulose titrated to bowel movements - Neurology has been following; possible could take several days to weeks to resolve - s/p Risperidone for agitation - c/w treatment for UTI (See #2) 2. UTI - Urine Culture: Proteus mirabilis - c/w ceftriaxone (Day #3) 3. Hypernatremia - slightly elevated today - c/w D5W via peripheral IV line - will follow BMP 4. s/p Paracentesis - No evidence of abdominal pain or infection - Removed <500cc of fluid for analysis - Fluid analysis in consistent with infection 5. s/p Right LE cellulitis - Redness, warmth and tenderness have resolved - Physical shows resolution or erythema / warmth / tenderness - No leukocytosis of elevation of lactic acid - s/p Antibiotics (Ceftaroline and Doxycycline) 6. s/p Respiratory distress - possibly 2/2 fluid overload, PINKY / OHS - requiring supplemental oxygen - CT chest 09/18: No infiltrates, effusions or masses - CXR 09/22: unchanged - c/w supplemental oxygen and continue to titrate down - c/w acapella and incentive spirometry 7. Chronic compensated diastolic CHF - ECHO 06/2016: EF 65%, moderate pulmonary HTN - appears compensated 8. PINKY - c/w CPAP at night 9. s/p Hypermagnesemia - s/p Mg supplementation 10. AV block - s/p PM 11. HTN - BP has remained stable - c/w Isosorbide dinitrate and Bisoprolol with holding parameters 12. DM2 - c/w ISS 13. Seizure disorder - c/w reduced dose depakote (250 BID) 14. Hypothyroidism - c/w Synthroid 15. Gout - c/w Allopurinol and Colchicine 16. s/p GERARDO - Cr now at baseline 17. A. fib - rate controlled with Bisoprolol with holding parameters - s/p Pacemaker - c/w anticoagulation with Pradaxa 18. GERD - c/w Prilosec 19. DVT prophylaxis - on full anticoagulation with Pradaxa Disposition: - will require placement VS,Fishbone, I+O VS, Fishbone, I+O Laboratory Tests 10/09/16 14:17 Calcium Level 9.5 10/10/16 06:22 Calcium Level 8.8, Red Blood Count 4.36, Mean Corpuscular Volume 96.0, Mean Corpuscular Hemoglobin 29.7, Mean Corpuscular Hemoglobin Concent 30.9 L, Red Cell Distribution Width 16.5 H Vital Signs Date Time Temp Pulse Resp B/P (MAP) Pulse Ox O2 Delivery O2 Flow Rate FiO2 10/10/16 11:58 Nasal Cannula 3.0 10/10/16 08:42 108/64 10/10/16 06:00 96.5 55 18 92 I&O- Last 24 Hours up to 6 AM 10/10/16 06:00 Intake Total 240 ml Output Total 0 ml Balance 240 ml JOE HDEZ MD Oct 10, 2016 13:02
[2016-10-10 14:00] VITALS: BP 103/65
[2016-10-10 22:00] VITALS: BP 121/87
[2016-10-10] MEDS: ALLOPURINOL 300 MG TAB PO SCH (22:15)
[2016-10-10] MEDS: BISOPROLOL FUMARATE 10 MG TAB PO SCH (22:15)
[2016-10-10] MEDS: ASPIRIN 81 MG ENTERIC TAB PO SCH (22:15)
[2016-10-10] MEDS: OMEPRAZOLE 20 MG CAP PO SCH (22:15)
[2016-10-10] MEDS: COLESEVELAM 625 MG TAB (WELCHOL) PO SCH (22:16)
[2016-10-11] MEDS: LACTULOSE 20 GM/30 ML SYRUP UD PO SCH ×6 (00:36→22:05)
[2016-10-11] MEDS: IPRATROPIUM 0.5MG/ALBUTEROL 2.5MG INH SOL UD 3ML (DUONEB)(J7620) NEB SCH ×4 (01:36→19:31)
[2016-10-11 02:00] VITALS: BP 110/71
[2016-10-11] MEDS: D5W 1,000 ML IV SCH ×2 (04:05→14:47)
[2016-10-11 06:00] VITALS: BP 114/80
[2016-10-11 06:27] LABS: BASO % 0.3 % (0.0-1.0); EOS # 0.2 K/mm3 (0.0-0.50); EOS % 3.1 % (0.0-3.0); LARGE UNSTAINED CELL # 0.1 K/mm3 (0.0-0.4); LARGE UNSTAINED CELL % 2.1 % (0.0-4.0); LYMPH # 1.7 K/mm3 (1.5-4.5); LYMPH % 27.7 % (24.0-44.0); MEAN CORPUSCULAR HEMOGLOBIN 29.7 pg (27.0-33.0); MEAN CORPUSCULAR VOLUME 95.6 fl (80.0-96.0); MONO # 0.3 K/mm3 (0.0-0.8); MONO % 5.2 % (0.0-5.0); NEUTROPHILS # 3.5 K/mm3 (1.8-7.7); NEUTROPHILS % 61.6 % (36.0-66.0); PLATELET COUNT, AUTOMATED 169 k/mm3 (150-450); RED CELL DISTRIBUTION WIDTH 16.5 % (11.5-14.5); WHITE BLOOD COUNT 5.6 K/mm3 (4.0-10.0)
[2016-10-11] MEDS: LEVOTHYROXINE 75MCG TABLET (0.075MG) PO SCH (06:47)
[2016-10-11] MEDS: LEVOTHYROXINE 100MCG TABLET (0.1MG) PO SCH (06:48)
[2016-10-11 07:13] LABS: ANION GAP 12 MEQ/L (8-16); BLOOD UREA NITROGEN 34 MG/DL (7-18); CALCIUM LEVEL 8.4 MG/DL (8.8-10.2); CARBON DIOXIDE LEVEL 17 MEQ/L (21-32); CHLORIDE LEVEL 117 MEQ/L (98-107); CREATININE FOR GFR 0.77 MG/DL (0.70-1.30); GLOMERULAR FILTRATION RATE > 60.0 (>42); GLUCOSE, FASTING 131 MG/DL (83-110); POTASSIUM SERUM 3.4 MEQ/L (3.5-5.1); SODIUM LEVEL 146 MEQ/L (136-145)
[2016-10-11] MEDS ORDERED: POTASSIUM CHLORIDE 10 MEQ SR TABLET PO ONE (08:00)
[2016-10-11] MEDS: LEVEMIR (INSULIN DETEMIR) 1 UNITS/0.01ML SC SCH ×2 (08:20→22:07)
[2016-10-11] MEDS: HumaLOG INSULIN (NovoLOG) PER UNIT SC SCH ×4 (08:20→21:00)
[2016-10-11] MEDS: GABAPENTIN 300 MG CAP PO SCH ×2 (09:42→22:03)
[2016-10-11] MEDS: COLCHICINE 0.6 MG TAB PO SCH ×2 (09:42→22:04)
[2016-10-11] MEDS: ISOSORBIDE DIN. (ISORDIL) 5 MG TAB PO SCH (09:42)
[2016-10-11] MEDS: DIVALPROEX 250MG *ER* TAB PO SCH ×2 (09:43→22:05)
[2016-10-11] MEDS: cefTRIAXone SOD 1 GM in D5W MINI-BAG PLUS 50 ML IV SCH (09:43)
[2016-10-11] MEDS: DABIGATRAN ETEXILATE 75 MG CAP (PRADAXA) PO SCH ×2 (09:43→22:03)
[2016-10-11] MEDS: CLOTRIMAZOLE 1% TOPICAL CREAM 30GM TOP SCH ×4 (09:43→22:06)
[2016-10-11] MEDS: MYCOLOG CREAM 15 GM (NYSTATIN/TRIAMCINOLONE) TOP SCH ×3 (09:44→22:05)
[2016-10-11] MEDS: NYSTATIN 100,000 UNITS/GM TOPICAL PWD 15 GM TOP SCH ×2 (09:45→22:06)
[2016-10-11 10:00] VITALS: BP 131/81
--- NOTE | 2016-10-11 12:30 | IPNPDOC ---
Text Note Date of Service The patient was seen on 10/11/16. NOTE Subjective: Patient is a 71 year old male with a PMHx of COPD, PINKY, Diastolic CHF , A. fib (on Pradaxa), AV block (s/p PM), HTN, DM2, Seizure disorder, Hypothyroidism, Gout, Obesity, GERD, Retinal detachment of right / Macular degeneration of Left, Chronic venous stasis with stasis dermatitis, Tremors, CKD3, Pulmonary HTN, Hydrocele and varicocele on Left. Presented to the ER with complaints of right leg pain, warmth and redness, found to be 2/2 Cellulitis. He has completed therapy with Ceftaroline and Doxycycline. Remainder of hospital stay significant for extended waxing/waning mentation. Patient seen and examined at bedside. Currently he appears to be fully oriented upon questioning. He has noted where he is, the time, who he is and is aware of who the president is. He denied any other issues. Advised him that we will get him to sit up in chair today. Objective: Vitals (See below) General: no acute distress, comfortable, lying in bed, Oriented HEENT: NC, AT CVS: RRR, +S1S2 Lungs: Fair air entry b/l, no appreciable wheezing Abdomen: Soft, distended, NT Extremities: chronic venous stasis changes Assessment and plan: 1. Acute metabolic encephalopathy - possibly 2/2 elevated ammonia, possibly 2/2 infection, possibly 2/2 hypernatremia - Awake and alert, better oriented - Still without any focal deficits - UA / UCx positive for Proteus - CT head 09/24: small vessel ischemic disease and moderate volume loss - Neurology has been following; possible could take several days to weeks to resolve - c/w lactulose; will adjust parameters and increase frequency - s/p Risperidone for agitation - c/w treatment for UTI (See #2) 2. UTI - Urine Culture: Proteus mirabilis - c/w Ceftriaxone (Day #4) 3. Hypernatremia - improving - c/w D5W via peripheral IV line - will follow BMP 4. s/p Paracentesis - No evidence of abdominal pain or infection - Removed <500cc of fluid for analysis - Fluid analysis in consistent with infection 5. s/p Right LE cellulitis - Redness, warmth and tenderness have resolved - Physical shows resolution or erythema / warmth / tenderness - No leukocytosis of elevation of lactic acid - s/p Antibiotics (Ceftaroline and Doxycycline) 6. s/p Respiratory distress - possibly 2/2 fluid overload, PINKY / OHS - requiring supplemental oxygen - CT chest 09/18: No infiltrates, effusions or masses - CXR 09/22: unchanged - c/w supplemental oxygen and continue to titrate down - c/w acapella and incentive spirometry 7. Chronic compensated diastolic CHF - ECHO 06/2016: EF 65%, moderate pulmonary HTN - appears compensated 8. PINKY - c/w CPAP at night 9. s/p Hypermagnesemia - s/p Mg supplementation 10. AV block - s/p PM 11. HTN - BP has remained stable - c/w Isosorbide dinitrate and Bisoprolol with holding parameters 12. DM2 - c/w ISS 13. Seizure disorder - c/w reduced dose depakote (250 BID) 14. Hypothyroidism - c/w Synthroid 15. Gout - c/w Allopurinol and Colchicine 16. s/p GERARDO - Cr now at baseline 17. A. fib - rate controlled with Bisoprolol with holding parameters - s/p Pacemaker - c/w anticoagulation with Pradaxa 18. GERD - c/w Prilosec 19. DVT prophylaxis - on full anticoagulation with Pradaxa Disposition: - will require placement VS,Fishbone, I+O VS, Fishbone, I+O Laboratory Tests 10/11/16 06:19 Red Blood Count 4.11 L, Mean Corpuscular Volume 95.6, Mean Corpuscular Hemoglobin 29.7, Mean Corpuscular Hemoglobin Concent 31.0 L, Red Cell Distribution Width 16.5 H, Neutrophils (%) (Auto) 61.6, Lymphocytes (%) (Auto) 27.7, Monocytes (%) (Auto) 5.2 H, Eosinophils (%) (Auto) 3.1 H, Basophils (%) ( Auto) 0.3, Neutrophils # (Auto) 3.5, Lymphocytes # (Auto) 1.7, Monocytes # (Auto ) 0.3, Eosinophils # (Auto) 0.2, Basophils # (Auto) 0.0, Calcium Level 8.4 L Vital Signs Date Time Temp Pulse Resp B/P (MAP) Pulse Ox O2 Delivery O2 Flow Rate FiO2 10/11/16 10:00 97.0 61 16 131/81 (98) 90 Nasal Cannula 3.0 I&O- Last 24 Hours up to 6 AM 10/11/16 06:00 Intake Total 1830 ml Output Total 0 ml Balance 1830 ml JOE HDEZ MD Oct 11, 2016 12:29
[2016-10-11 14:00] VITALS: BP 109/70
[2016-10-11 18:00] VITALS: BP 107/69
[2016-10-11] MEDS: BISOPROLOL FUMARATE 10 MG TAB PO SCH (21:00)
[2016-10-11 22:00] VITALS: BP 134/80
[2016-10-11] MEDS: OMEPRAZOLE 20 MG CAP PO SCH (22:03)
[2016-10-11] MEDS: VITAMIN D 1,000 INTERNATIONAL UNITS TABLET PO SCH (22:04)
[2016-10-11] MEDS: ASPIRIN 81 MG ENTERIC TAB PO SCH (22:04)
[2016-10-11] MEDS: ALLOPURINOL 300 MG TAB PO SCH (22:04)
[2016-10-11] MEDS: COLESEVELAM 625 MG TAB (WELCHOL) PO SCH (22:04)
[2016-10-12] MEDS: D5W 1,000 ML IV SCH (00:21)
[2016-10-12] MEDS: IPRATROPIUM 0.5MG/ALBUTEROL 2.5MG INH SOL UD 3ML (DUONEB)(J7620) NEB SCH ×4 (01:18→20:08)
[2016-10-12 02:00] VITALS: BP 116/79
[2016-10-12] MEDS: LACTULOSE 20 GM/30 ML SYRUP UD PO SCH ×5 (02:32→17:37)
[2016-10-12] MEDS: LEVOTHYROXINE 75MCG TABLET (0.075MG) PO SCH (05:33)
[2016-10-12] MEDS: LEVOTHYROXINE 100MCG TABLET (0.1MG) PO SCH (05:33)
[2016-10-12 06:00] VITALS: BP 126/75
[2016-10-12 06:29] LABS: BASO % 0.2 % (0.0-1.0); EOS # 0.2 K/mm3 (0.0-0.50); EOS % 2.9 % (0.0-3.0); LARGE UNSTAINED CELL # 0.1 K/mm3 (0.0-0.4); LARGE UNSTAINED CELL % 1.4 % (0.0-4.0); LYMPH # 1.6 K/mm3 (1.5-4.5); MEAN CORPUSCULAR HEMOGLOBIN 29.6 pg (27.0-33.0); MEAN CORPUSCULAR HGB CONC 31.1 g/dl (32.0-36.5); MEAN CORPUSCULAR VOLUME 95.1 fl (80.0-96.0); MONO # 0.3 K/mm3 (0.0-0.8); MONO % 3.7 % (0.0-5.0); NEUTROPHILS # 6.5 K/mm3 (1.8-7.7); NEUTROPHILS % 74.8 % (36.0-66.0); PLATELET COUNT, AUTOMATED 204 k/mm3 (150-450); RED CELL DISTRIBUTION WIDTH 16.4 % (11.5-14.5); WHITE BLOOD COUNT 8.7 K/mm3 (4.0-10.0)
[2016-10-12 07:01] LABS: ANION GAP 13 MEQ/L (8-16); BLOOD UREA NITROGEN 29 MG/DL (7-18); CALCIUM LEVEL 8.5 MG/DL (8.8-10.2); CARBON DIOXIDE LEVEL 15 MEQ/L (21-32); CHLORIDE LEVEL 113 MEQ/L (98-107); CREATININE FOR GFR 0.85 MG/DL (0.70-1.30); GLOMERULAR FILTRATION RATE > 60.0 (>42); GLUCOSE, FASTING 159 MG/DL (83-110); POTASSIUM SERUM 3.9 MEQ/L (3.5-5.1); SODIUM LEVEL 141 MEQ/L (136-145)
[2016-10-12] MEDS: COLCHICINE 0.6 MG TAB PO SCH (08:21)
[2016-10-12] MEDS: HumaLOG INSULIN (NovoLOG) PER UNIT SC SCH ×4 (08:21→20:37)
[2016-10-12] MEDS: GABAPENTIN 300 MG CAP PO SCH (08:22)
[2016-10-12] MEDS: DIVALPROEX 250MG *ER* TAB PO SCH (08:22)
[2016-10-12] MEDS: DABIGATRAN ETEXILATE 75 MG CAP (PRADAXA) PO SCH (08:22)
[2016-10-12] MEDS: ISOSORBIDE DIN. (ISORDIL) 5 MG TAB PO SCH (08:22)
[2016-10-12] MEDS: cefTRIAXone SOD 1 GM in D5W MINI-BAG PLUS 50 ML IV SCH (08:23)
[2016-10-12] MEDS: LEVEMIR (INSULIN DETEMIR) 1 UNITS/0.01ML SC SCH ×2 (08:23→20:37)
[2016-10-12] MEDS: CLOTRIMAZOLE 1% TOPICAL CREAM 30GM TOP SCH ×4 (08:24→20:38)
[2016-10-12] MEDS: NYSTATIN 100,000 UNITS/GM TOPICAL PWD 15 GM TOP SCH ×2 (08:24→20:39)
[2016-10-12] MEDS: MYCOLOG CREAM 15 GM (NYSTATIN/TRIAMCINOLONE) TOP SCH ×3 (08:24→20:38)
[2016-10-12] MEDS ORDERED: rifAXIMin 550 MG TAB (XIFAXAN) PO SCH (09:00)
[2016-10-12] MEDS ORDERED: ONDANSETRON 4MG/2ML VIAL (J2405) IV PRN (09:30)
--- NOTE | 2016-10-12 11:32 | REP ---
Supine abdomen two views: The entire colon is air filled and distended to the distal sigmoid colon. Upon review of the outside b2b sales film for the comparison CT, the colonic distension is similar to the prior CT examination. There is mild small bowel distension. This is also similar to the comparison CT study. There are no calcifications. There is lumbar scoliosis convex left. The skeletal structures and soft tissues are otherwise unremarkable. Impression: Colonic distension as described. Small bowel distension. On the comparison CT there was a large fecal bolus in the rectal ampulla , possibly an impaction. Signed by Jason Ceron MD 10/12/2016 11:24 A
--- NOTE | 2016-10-12 11:43 | IPNPDOC ---
Text Note Date of Service The patient was seen on 10/12/16. NOTE Subjective: Patient is a 71 year old male with a PMHx of COPD, PINKY, Diastolic CHF , A. fib (on Pradaxa), AV block (s/p PM), HTN, DM2, Seizure disorder, Hypothyroidism, Gout, Obesity, GERD, Retinal detachment of right / Macular degeneration of Left, Chronic venous stasis with stasis dermatitis, Tremors, CKD3, Pulmonary HTN, Hydrocele and varicocele on Left. Presented to the ER with complaints of right leg pain, warmth and redness, found to be 2/2 Cellulitis. He has completed therapy with Ceftaroline and Doxycycline. Remainder of hospital stay significant for extended waxing/waning mentation. Patient seen and examined at bedside. He remains oriented to person / place / time. Is having difficulty with repetition and memory. He has been noted to have vomited this morning, has had fewer bowel movements. He notes some abdominal discomfort as well. Objective: Vitals (See below) General: no acute distress, comfortable, lying in bed, Oriented HEENT: NC, AT CVS: RRR, +S1S2 Lungs: Fair air entry b/l, no appreciable wheezing Abdomen: Soft, Distended, Tenderness at epigastrium Extremities: chronic venous stasis changes Assessment and plan: 1. Acute metabolic encephalopathy - possibly 2/2 elevated ammonia, possibly 2/2 infection, possibly 2/2 hypernatremia - Awake and alert, better oriented; still with memory impairment - Still without any focal deficits - UA / UCx positive for Proteus - CT head 09/24: small vessel ischemic disease and moderate volume loss - Neurology has been following; possible could take several days to weeks to resolve - c/w lactulose - s/p Risperidone for agitation - c/w treatment for UTI (See #3) 2. Abdominal distention - possibly 2/2 SBO (partial) - Reported nausea and abdominal pain this morning - Physical with abdominal distension and epigastric tenderness - Will get XR abdomen - Will get NPO 3. UTI - Urine Culture: Proteus mirabilis - c/w Ceftriaxone (Day #5) 4. s/p Hypernatremia - s/p D5W 5. s/p Paracentesis - No evidence of abdominal pain or infection - Removed <500cc of fluid for analysis - Fluid analysis in consistent with infection 6. s/p Right LE cellulitis - Redness, warmth and tenderness have resolved - Physical shows resolution or erythema / warmth / tenderness - No leukocytosis of elevation of lactic acid - s/p Antibiotics (Ceftaroline and Doxycycline) 7. s/p Respiratory distress - possibly 2/2 fluid overload, PINKY / OHS - requiring supplemental oxygen - CT chest 09/18: No infiltrates, effusions or masses - CXR 09/22: unchanged - c/w supplemental oxygen and continue to titrate down - c/w acapella and incentive spirometry 8. Chronic compensated diastolic CHF - ECHO 06/2016: EF 65%, moderate pulmonary HTN - appears compensated 9. PINKY - c/w CPAP at night 10. s/p Hypermagnesemia - s/p Mg supplementation 11. AV block - s/p PM 12. HTN - BP has remained stable - c/w Isosorbide dinitrate and Bisoprolol with holding parameters 13. DM2 - c/w ISS 14. Seizure disorder - c/w reduced dose depakote (250 BID) 15. Hypothyroidism - c/w Synthroid 16. Gout - c/w Allopurinol and Colchicine 17. s/p GERARDO - Cr now at baseline 18. A. fib - rate controlled with Bisoprolol with holding parameters - s/p Pacemaker - c/w anticoagulation with Pradaxa 19. GERD - c/w Prilosec 20. DVT prophylaxis - on full anticoagulation with Pradaxa Disposition: - Evaluate for possible SBO - will require placement VS,Fishbone, I+O VS, Fishbone, I+O Laboratory Tests 10/12/16 06:15 Red Blood Count 4.56, Mean Corpuscular Volume 95.1, Mean Corpuscular Hemoglobin 29.6, Mean Corpuscular Hemoglobin Concent 31.1 L, Red Cell Distribution Width 16.4 H, Neutrophils (%) (Auto) 74.8 H, Lymphocytes (%) (Auto) 17.0 L, Monocytes (%) (Auto) 3.7, Eosinophils (%) (Auto) 2.9, Basophils (%) (Auto) 0.2, Neutrophils # (Auto) 6.5, Lymphocytes # (Auto) 1.6, Monocytes # (Auto) 0.3, Eosinophils # (Auto) 0.2, Basophils # (Auto) 0.0, Calcium Level 8.5 L Vital Signs Date Time Temp Pulse Resp B/P (MAP) Pulse Ox O2 Delivery O2 Flow Rate FiO2 10/12/16 08:22 126/75 10/12/16 06:00 96.5 62 17 95 Nasal Cannula 3.0 I&O- Last 24 Hours up to 6 AM 10/12/16 06:00 Intake Total 650 ml Output Total 0 ml Balance 650 ml JOE HDEZ MD Oct 12, 2016 11:43
[2016-10-12] MEDS ORDERED: FLEET OIL RETENTION ENEMA PR PRN (11:45)
[2016-10-12] MEDS ORDERED: GASTROGRAFIN SOLUTION 30ML PO ONE (12:30)
[2016-10-12] MEDS ORDERED: GASTROGRAFIN SOLUTION 30ML (Q9963) PO ONE (13:00)
[2016-10-12] MEDS ORDERED: ONDANSETRON 4MG/2ML VIAL (J2405) IV ONE (13:15)
--- NOTE | 2016-10-12 15:13 | REP ---
CT of the abdomen without IV and oral contrast: Comparison is 10/04/2016. The colon. There is a distended from the cecum to the distal sigmoid colon as previously. The cecum measures 6.7 cm in diameter (5.4 cm previously. There is no small bowel distension. There is fecal residue in the rectal ampulla and rectosigmoid colon, possibly an impaction. The rectum today measures 7.5 cm diameter, previously 6.8 . There are bibasilar infiltrates in the visualized lower lung lobes, similar to the prior study. The volume of ascites surrounding the liver and spleen has decreased in volume. The 9 mm hypodensity at the inferior tip of the hepatic right lobe is unchanged. The liver measures 16 cm cranial caudad midclavicular line and the spleen measures 15 cm craniocaudad. The liver and spleen are enlarged as previously. The the patient reportedly has a cholecystectomy. The pancreas is hypodense compatible with fatty atrophy, unchanged. The adrenals are unremarkable. There are bilateral renal cortical cysts as previously. The infrarenal abdominal demonstrates aortic ectasia measuring up to 3.2 .centimeters in diameter, unchanged. . Pelvis: There is no ascites or adenopathy. The bladder is unremarkable. Colonic distension as described. No small bowel distension. Large volume of fecal residue in the rectal ampulla, possibly an impaction, as described previously. Impression: Colonic distension as described. Large volume of fecal residue in the rectal ampulla, possibly an impaction. Abdominal ascites. No splenomegaly. Bibasilar lower lobe lung infiltrates. Bilateral renal cortical cysts. Signed by Jason Ceron MD 10/12/2016 03:05 P
[2016-10-12 17:11] LABS: ADD MANUAL DIFFER YES; DIFF SLIDE NUMBER 287; MEAN CORPUSCULAR HGB CONC 31.1 g/dl (32.0-36.5); MEAN CORPUSCULAR VOLUME 96.4 fl (80.0-96.0); PLATELET COUNT, AUTOMATED 312 k/mm3 (150-450); RED CELL DISTRIBUTION WIDTH 16.4 % (11.5-14.5)
[2016-10-12 17:17] LABS: WHITE BLOOD COUNT 31.4 K/mm3 (4.0-10.0)
[2016-10-12 17:34] LABS: BANDS 7 % (< 11); EOSINOPHILS 1 % (0-5)
[2016-10-12 17:35] LABS: ANISOCYTOSIS 1+
[2016-10-12] MEDS ORDERED: NS 1,000 ML IV SCH (17:45)
[2016-10-12 17:49] LABS: ALBUMIN 2.6 GM/DL (3.2-5.2); ALBUMIN/GLOBULIN RATIO 0.96 (1.00-1.93); BILIRUBIN,TOTAL 1.2 MG/DL (0.2-1.0); CALCIUM LEVEL 8.8 MG/DL (8.8-10.2); CREATININE FOR GFR 1.33 MG/DL (0.70-1.30); GLOMERULAR FILTRATION RATE 56.4 (>42); MAGNESIUM LEVEL 2.1 MG/DL (1.8-2.4); POTASSIUM SERUM 4.2 MEQ/L (3.5-5.1); TOTAL PROTEIN 5.3 GM/DL (6.4-8.2)
[2016-10-12 18:02] VITALS: BP 101/57
[2016-10-12] MEDS ORDERED: SODIUM CHLORIDE 0.9% 1000 ML IV ONE (18:15)
[2016-10-12 18:30] LABS: ADD MANUAL DIFFER YES; DIFF SLIDE NUMBER 295; MEAN CORPUSCULAR HEMOGLOBIN 29.9 pg (27.0-33.0); MEAN CORPUSCULAR HGB CONC 30.9 g/dl (32.0-36.5); MEAN CORPUSCULAR VOLUME 96.7 fl (80.0-96.0); PLATELET COUNT, AUTOMATED 290 k/mm3 (150-450); RED CELL DISTRIBUTION WIDTH 16.3 % (11.5-14.5)
[2016-10-12 18:31] LABS: WHITE BLOOD COUNT 30.6 K/mm3 (4.0-10.0)
[2016-10-12 18:51] LABS: ERYTHROCYTE SEDIMENTATION RATE 1 mm/hr (0-20)
[2016-10-12 18:55] LABS: ABG HCO3 10.4 MEQ/L (22.0-26.0); ABG PARTIAL PRESSURE CO2 24.3 mmHg (35.0-45.0); ABG PARTIAL PRESSURE O2 98.8 mmHg (75.0-100.0); ABG STANDARD HCO3 13.3 MEQ/L (22.0-26.0); ABG TOTAL CO2 11.1 MEQ/L (23.0-31.0)
[2016-10-12 18:56] LABS: ABG pH (ARTERIAL) 7.248 UNITS (7.350-7.450)
--- NOTE | 2016-10-12 19:04 | PHACANCOPD ---
PHARMACY VANCOMYCIN DOSING Pt Demographics Demographics Patient Age:71 , Weight:111.100 , Gender: male Adjusted Body Weight Date: 10/12/16, Adjusted Body Weight: [93] Kg Events Past 24 Hours Events Past 24 Hours: YES: Change in CrCl, Elevation in WBC, NO: Dialysis, Diuretic Therapy, Fever, Pending Diagnostics, Pending Procedures, Other Vancomycin Vancomycin indication: HCAP Vancomycin Target Ranges: 15-20 mcg/ml Vancomycin Load Y/N: Yes Load Dose Date Time Vancomycin Load Dose: 1000mg Date: 10/12 Time: 21:00 Vancomycin Dose Date: 10/12/16. Current Vancomycin Dose: [1g IV q12h @06] Intermittent Dosing?: No Labs Labs Item Value Date Time White Blood Count 31.4 K/mm3 *H 10/12/16 1658 White Blood Count 8.7 K/mm3 10/12/16 0615 White Blood Count 5.6 K/mm3 10/11/16 0619 Creatinine 0.77 MG/DL 10/11/16 0619 Creatinine 0.85 MG/DL 10/12/16 0615 Band Neutrophils 7 % 10/12/16 1658 Creatinine 1.33 MG/DL H # 10/12/16 1658 Micro Microbiology 10/12/16 Blood Culture, Received Pending 10/12/16 Blood Culture, Received Pending 10/09/16 Blood Culture - Preliminary, Resulted No Growth after 72 hours. All specime... 10/09/16 Blood Culture - Preliminary, Resulted No Growth after 72 hours. All specime... 10/04/16 Gram Stain - Final, Complete 10/04/16 Body Fluid Culture - Final, Complete 10/12/16 Gastrointestinal Tract Panel (PCR), Received Pending 10/09/16 Urine Culture - Final, Complete 10/04/16 Urine Culture - Final, Complete Proteus Mirabilis Creatinine Clearance Date:10/12/16. Creatinine Clearance: [67 ml/min using adjusted BW]. Assessment and Plan Maintaining Current Dose?: Yes Reason for dose change: No Dose Change Pharmacist Note Pharmacist Note Date: 10/12/16. Pharmacist note: pt has been started on vancomycin and meropenem for HCAP. WBCs and SCr are significantly elevated today (started on NS IVF). pt was admitted on 09/13 for encephalopathy/cellulitis, he was treated with ceftaroline 600mg IV q12h for 7 days. Pt was also on Rocephin 1g IV q24h x4 days (10/08-). He was last on vancomycin at our facility in May 2014 with a similar SCr and he has been started on similar vancomycin dosing. Dr. Maguire has also started the pt on IV flagyl and oral vancomycin tonight for C. diff. Blood cultures are pending. I will continue to monitor labs/cultures and follow up with a vancomycin trough as necessary. Gerry Piedra.D. Oct 12, 2016 19:04
[2016-10-12 19:25] LABS: BANDS 8 % (< 11)
[2016-10-12 19:26] LABS: POLYCHROMASIA 1+
[2016-10-12 19:27] LABS: ANISOCYTOSIS 1+
[2016-10-12] MEDS: VANCOMYCIN ORAL SOL 250MG/5ML ORAL SYRINGE PO SCH ×2 (19:43→23:44)
[2016-10-12] MEDS: SODIUM BICARBONATE 75 MEQ in NS 0.45% 1,000 ML IV SCH (19:45)
[2016-10-12 20:00] VITALS: BP 95/51
[2016-10-12] MEDS ORDERED: MEROPENEM INJ 1 GM in D5W MINI-BAG PLUS 100 ML IV SCH (20:00)
[2016-10-12] MEDS ORDERED: metroNIDAZOLE 500 MG in APPROPRIATE DILUENT 1 EA IV SCH (20:00)
[2016-10-12 20:09] VITALS: O2SAT 94
[2016-10-12 20:23] LABS: INR 2.1
[2016-10-12] MEDS: PANTOPRAZOLE 40MG INJ (PROTONIX) (C9113) IV SCH (20:23)
[2016-10-12] MEDS: ASPIRIN 81 MG ENTERIC TAB PO SCH (20:25)
[2016-10-12] MEDS: BISOPROLOL FUMARATE 10 MG TAB PO SCH (20:27)
--- NOTE | 2016-10-12 20:49 | CCN ---
DATE: 10/12/2016 Critical care 1 hour which excludes all procedures. I was urgently called to the patient's bedside by Dr. Maguire for hypotension. He was already there placing a central line. Mr. Bassett is a 71-year-old male who was admitted back on 09/13/2016, for cellulitis, has had altered mental status since that time, thought to have hyperammonemia and metabolic encephalopathy based on electroencephalogram (EEG) and elevated ammonia levels, who became hypotensive today, had abdominal pain and vomiting. Abdominal CT shows distended colon and he had been on quite a bit of antibiotics and his white count went from eight to 30. I expressed my concern for the possibility of Clostridium (C.) difficile. Flagyl was initiated by the primary team, and C. difficile was sent. The patient has received intravenous (IV) fluids and his blood pressure had increased from 90 systolic to 101 systolic. His mean arterial pressure (MAP) is currently 72. He was also hypoxic when he was more hypotensive; now he is saturating at 93% on 50% Venturi mask. When interviewing the patient, he had no chest pain. He does not feel short of breath. Currently he does not feel nauseous; however, he states that he did yesterday. His mentation is somewhat off and he cannot provide a reliable history. When I palpate his abdomen, he denies abdominal pain. His urine is dark brown, and he has had poor urine output. Estes was recently placed. PHYSICAL EXAMINATION: VITAL SIGNS: Temperature is 98.1, pulse is 66, respiratory rate is 20 and blood pressure is 101/57, MAP of 72. Oxygen saturation 93% on 50% Venturi mask. GENERAL: The patient is sitting in bed awake, conversant, confused but able to carry on a conversation thought the Venturi mask. HEENT: Sclerae clear, anicteric. Pupils equal, round, and reactive to light, approximately 5 mm and symmetric. Tongue is midline covered with brown discoloration. Mallampati IV airway. NECK: Supple with large circumference. Central venous pressure (CVP) measurement was four. No thyromegaly. CARDIAC: Regular S1, S2 without audible murmur, rub, or gallop. Point of maximum impulse (PMI) is displaced laterally. He has pacer in a pocket in the left side. He has a paced rhythm. I do not auscultate a murmur at this point in time. PULMONARY: Clear to auscultation anteriorly and posteriorly. A few rales at the bases. ABDOMEN: Obese, soft, nontender. He has a reducible umbilical hernia. He has no active bowel sounds. No discernable hepatosplenomegaly; however, his obesity makes this difficult. I do not auscultate any bruits over the abdomen. EXTREMITIES: No cyanosis or clubbing. He does have edema in his lower extremities to the level of approximately 5 cm above the ankle. He has chronic venous stasis changes and skin changes from recent cellulitis. LABORATORY DATA: Shows a white blood cell count of 30.6 from 8.7 this morning. Hemoglobin is 15 up from 13.5 this morning, platelet count of 290. Lactic acid is elevated at 3.4. Albumin is 2.6. AST is 49, ALT 44, alkaline phosphatase 409. Ammonia from 6 o'clock this morning is 78. Bicarbonate is low at 12. Anion gap is 15. Corrected anion gap is approximately 18. Abdominal CT shows colonic distention, abdominal ascites. The patient did have a paracentesis early in this hospitalization that showed 450 mL of clear fluid. There was no evidence of organisms in the paracentesis fluid. There were only a few white blood cells. Blood cultures numerous times throughout his hospitalization have had no growth. IMPRESSION: 1. Hypotension from sepsis, likely Clostridium (C.) difficile from recent antibiotic use. He has colonic distention. Although his abdomen is soft, he is at risk for toxic megacolon. Would recommend surgical evaluation. At this point in time, I do not think he requires surgery; however, this could change. Therefore, I would stop his Pradaxa as he is on this for stroke prophylaxis only. For his hypotension, recommend intravenous (IV) fluids. He is bicarbonate deplete from gastrointestinal (GI) losses. Would replace IV. Would be very careful with fluid administration due to his history of congestive heart failure. I would actually discontinue all his antibiotics other than treatment for C. difficile unless there is another source of infection found. Follow sepsis protocol. 2. Hypoxia, likely secondary to sepsis. The patient's oxygen saturation improved after hypotension improved. We will continue to monitor especially due to his delicate volume status. 3. Anion gap acidosis from lactic acidemia. Again, IV fluids recommended. Recommend 30 mL/kg in bolus form with close monitoring of respiratory status. 4. Ascites. No evidence of infection previously. Likely from congestive heart failure. 5. Hyperglycemia with diabetes on sliding-scale insulin. 6. Hyperammonemia. The patient is on Depakote. This could be a potential cause of hyperammonemia. He has had no seizure activity for a number of years. He has a remote history of seizure disorder. While he is in the intensive care unit with hyperammonemia, we will discontinue his Depakote, watch for seizure activity. His levels were checked initially; however, he has had a long hospital stay with multiple antibiotics and significant illness. Other causes of hyperammonemia should be explored. At this point in time there is some ascites and may indicate underlying liver disease versus history of passive congestion. PROGNOSIS: With the patient's hypotension, sepsis, evidence of C. difficile with hypoxia and underlying history of congestive heart failure, he is at significant risk for mortality. Careful fluid administration is advised. At this point in time, he does require IV bolus for his severe hypotension and obvious volume depletion given his low CVP. After his bolus, he should be on bicarbonate with his IV fluids due to his significant acidosis from bicarbonate losses. He also has acidosis from lactic acidemia. He will be monitored closely in the intensive care unit (ICU). Thank you for this consultation. JAIMIE
--- NOTE | 2016-10-12 20:55 | REP ---
Portable chest x-ray: Semi-erect AP view: History: Central line placement. Findings: A unipolar pacemaker is seen in the right heart via the left side. A right internal jugular line is seen with its tip in the expected location of the superior vena cava. There is no evidence of pneumothorax. Cardiomegaly is again observed unchanged from comparison study 10/09/2016. Impression: Right internal jugular central venous line with its tip in the expected location of the superior vena cava. There is no evidence of pneumothorax. Signed by Giovani Marrero MD 10/13/2016 11:05 A
[2016-10-12] MEDS: metroNIDAZOLE 500 MG in APPROPRIATE DILUENT 1 EA IV SCH (20:58)
[2016-10-12] MEDS ORDERED: VANCOMYCIN HCL 1,000 MG, VIAL MATE ADAPTER 1 EACH in D5W 250 ML IV ONE (21:00)
[2016-10-12] MEDS ORDERED: VANCOMYCIN 1000 MG/20 ML VIAL (J3370) As Ordered ONE (21:21)
[2016-10-13] VITALS (60 sets, daily range): BP systolic 65–100; BP diastolic 32–65; O2SAT 91
[2016-10-13] MEDS: SODIUM BICARBONATE 75 MEQ in NS 0.45% 1,000 ML IV SCH ×4 (01:37→20:19)
[2016-10-13] MEDS: IPRATROPIUM 0.5MG/ALBUTEROL 2.5MG INH SOL UD 3ML (DUONEB)(J7620) NEB SCH ×4 (01:45→19:16)
[2016-10-13] MEDS ORDERED: SODIUM CHLORIDE 0.9% 1000 ML IV ONE (02:15)
[2016-10-13] MEDS: VANCOMYCIN ORAL SOL 250MG/5ML ORAL SYRINGE PO SCH ×3 (05:08→17:12)
[2016-10-13] MEDS: metroNIDAZOLE 500 MG in APPROPRIATE DILUENT 1 EA IV SCH ×3 (05:08→21:27)
[2016-10-13] MEDS: LEVOTHYROXINE 100MCG TABLET (0.1MG) PO SCH (05:08)
[2016-10-13] MEDS: LEVOTHYROXINE 75MCG TABLET (0.075MG) PO SCH (05:08)
[2016-10-13 05:17] LABS: MAGNESIUM LEVEL 1.9 MG/DL (1.8-2.4)
[2016-10-13] MEDS ORDERED: VANCOMYCIN HCL 1,000 MG, VIAL MATE ADAPTER 1 EACH in D5W 250 ML IV SCH (06:00)
[2016-10-13 06:46] LABS: ALBUMIN 2.1 GM/DL (3.2-5.2); ALBUMIN/GLOBULIN RATIO 1.05 (1.00-1.93); BILIRUBIN,TOTAL 0.7 MG/DL (0.2-1.0); CALCIUM LEVEL 8.1 MG/DL (8.8-10.2); CREATININE FOR GFR 1.42 MG/DL (0.70-1.30); GLOMERULAR FILTRATION RATE 52.3 (>42); POTASSIUM SERUM 3.3 MEQ/L (3.5-5.1); TOTAL PROTEIN 4.1 GM/DL (6.4-8.2)
[2016-10-13 06:55] LABS: ABG BASE EXCESS -10.5 (-2.0-2.0); ABG HCO3 13.8 MEQ/L (22.0-26.0); ABG PARTIAL PRESSURE CO2 26.9 mmHg (35.0-45.0); ABG PARTIAL PRESSURE O2 70.3 mmHg (75.0-100.0); ABG STANDARD HCO3 16.1 MEQ/L (22.0-26.0); ABG TOTAL CO2 14.7 MEQ/L (23.0-31.0); ABG pH (ARTERIAL) 7.329 UNITS (7.350-7.450)
[2016-10-13 07:13] LABS: ADD MANUAL DIFFER YES; DIFF SLIDE NUMBER 92; MEAN CORPUSCULAR HEMOGLOBIN 29.6 pg (27.0-33.0); MEAN CORPUSCULAR HGB CONC 31.1 g/dl (32.0-36.5); MEAN CORPUSCULAR VOLUME 95.1 fl (80.0-96.0); PLATELET COUNT, AUTOMATED 193 k/mm3 (150-450); RED CELL DISTRIBUTION WIDTH 16.5 % (11.5-14.5); WHITE BLOOD COUNT 19.7 K/mm3 (4.0-10.0)
[2016-10-13] MEDS: HumaLOG INSULIN (NovoLOG) PER UNIT SC SCH ×4 (07:30→20:34)
[2016-10-13] MEDS: cefTRIAXone SOD 1 GM in D5W MINI-BAG PLUS 50 ML IV SCH (07:36)
[2016-10-13] MEDS ORDERED: NS 1,000 ML IV ONE ×4 (07:55→15:45)
[2016-10-13 08:07] LABS: BANDS 3 % (< 11)
[2016-10-13 08:08] LABS: ANISOCYTOSIS 1+; HYPOCHROMASIA 1+; OVALOCYTES 1+
[2016-10-13] MEDS: KCL 10MEQ IN 100ML SWI (KRUN) 10 MEQ in APPROPRIATE DILUENT 1 EA IV SCH ×16 (08:14→23:40)
--- NOTE | 2016-10-13 08:29 | RO ---
DATE OF PROCEDURE: 10/12/2016 PREPROCEDURE DIAGNOSIS: Hypotension. POSTPROCEDURE DIAGNOSIS: Hypotension. PROCEDURE PERFORMED: Triple lumen central line. SURGEON: Tiffani Campa MD RECRUITER: ICU nurse Holly. ANESTHETIC: 1% local lidocaine. VENTILATION: 100% nonrebreather. SEDATION: None. INDICATION: Hypotension. ESTIMATED BLOOD LOSS: 10 mL. DESCRIPTION OF PROCEDURE: Patient was placed in supine position. The right side of the patient's neck was cleaned with ChloraPrep and the patient was covered in the usual manner. Ultrasound with sterile probe cover was used to locate the patient's right internal jugular. Subsequently, 1% local lidocaine was injected superficially with ultrasound guidance. Needle was inserted with ultrasound guidance aiming for the right internal jugular. Subsequently, when after a flash of blood was obtained, subsequently Guidewire was inserted through the needle and needle was removed. Guidewire position was confirmed with ultrasound. Subsequently, site was dilated and triple lumen central line was inserted over the Guidewire via Seldinger technique. Guidewire was removed. All three ports of the triple lumen central line were flushed with normal saline and subsequently situated with clamps and stitches. Dressing was placed. X-ray was ordered for confirmation. The patient tolerated the procedure with no complications. CVP was measured, measuring at 6.
--- NOTE | 2016-10-13 08:53 | CCN ---
DATE: 10/13/2016 Critical care time was 46 minutes. This excludes all procedures. This morning, Mr. Bassett continues to have large amounts of stool output with hypotension. He was given boluses throughout the night. Blood pressure this morning is 100/55 with a MAP of 70. He remains on a bicarb drip due to his metabolic acidosis from GI losses. He has had very little urine output. I reordered lactate this morning as a reflux lactate was not drawn. I also ordered blood work this morning, which is still pending. Lactate is now down to 2.2, ammonia is down to 40. Unclear if this is secondary to his diarrhea or to the discontinuation of Depakote. He is afebrile. He has no complaints, no nausea, vomiting. No chest pain or increased shortness of breath. His oxygen requirements remain fairly high on 6 liters. PHYSICAL EXAMINATION: Patient is sleepy, but easily arousable. Temperature is 97.4, pulse is 75, respiratory rate is 14, blood pressure is 100/55 with a mean arterial pressure of 70, oxygen saturation 94% on 6 liters. GENERAL: As mentioned above, easily arousable. No tachypnea. HEENT: Sclerae clear and anicteric. Pupils are equal and react to light. Mucous membranes are moist. Mallampati 4. Tongue is midline. NECK: Supple. No tracheal deviation. He has a right IJ in place without surrounding erythema or exudate. CARDIAC: Distant S1-S2 without audible murmur, rub or gallop. Most recent CVP is up to 13. PMI is displaced laterally. PULMONARY: Decreased breath sounds at bases, otherwise clear to auscultation without rales, rhonchi or wheezes. No dullness to percussion. ABDOMEN: Obese, soft and nontender with hyperactive bowel sounds. EXTREMITIES: There is bilateral lower extremity edema with chronic venous stasis changes. SKIN: Pale without rash or jaundice. Laboratory evaluation is still pending from this morning. Lactate is down to 2.2, magnesium is 1.9, CRP is 7.8, ESR is 5. ABG is pending. No known new imaging this morning. IMPRESSION: Severe hypotension and probable sepsis from profound diarrhea causing metabolic acidosis from bicarbonate loss. He has evidence of colitis, most likely infectious colitis. I have added ceftriaxone this morning. 1. Sepsis from colitis, likely infectious. I added ceftriaxone, continue Flagyl. I suspect this is still C. difficile despite the negative test. Will treat hypotension with IV fluids, careful administration due to his history of congestive heart failure. Monitor his acidosis, obtain arterial blood gas this morning. 2. Hyperammonemia, decreased this morning. Will decrease Depakote, again unsure if the decrease in the ammonia is from increased bowel movements or from discontinuing of Depakote. 3. Oliguric renal failure. With high stool output monitor closely for electrolyte imbalances. 4. Obstructive sleep apnea. Refusing pressure therapy at this point in time. The patient's prognosis remains extremely guarded due to his hypotension, significant stool output and oliguria. He remains at high risk for developing renal failure. He is also a risk for respiratory failure from pulmonary edema due to the need for IV fluids. He will be closely monitored in the ICU.
--- NOTE | 2016-10-13 08:56 | IPNPDOC ---
Subjective General Date/Time Seen The patient was seen on 10/13/16 at 08:52. Subject Chief Complaint/History The patient is a 71-year-old male with leukocytosis, abdominal pain, hypotension He was seen this morning. He looks more comfortable this morning, oriented to persons and place not time. Denies abdominal pain, shortness of breath, nausea, chest pain. 3 loose bms reported. Current Medications Current Medications Current Medications Acetaminophen (Tylenol Tab) 650 mg Q4HP PRN PO MILD PAIN OR FEVER Last administered on 09/25/16 21:42; Start 09/13/16 at 16:00; Stop 11/11/16 at 15:59 Albuterol/ Ipratropium (Duoneb (Ipr 0.5mg/Alb 2.5mg)) 3 ml Q2HP PRN NEB SOB/ WHEEZING; Start 09/13/16 at 16:15; Stop 11/11/16 at 16:14 Albuterol/ Ipratropium (Duoneb (Ipr 0.5mg/Alb 2.5mg)) 3 ml RQ6H NEB Last administered on 10/13/16 08:21; Start 09/13/16 at 20:00; Stop 11/11/16 at 19:59 Allopurinol (Zyloprim) 300 mg QHS PO Last administered on 10/11/16 22:04; Start 09/13/16 at 21:00; Stop 10/12/16 at 19:31; Status DC Artificial Tears (Lacri-Lube Ophth Ointment) APPLY 1/4 IN. RIBBON TID OU ; Start 10/13/16 at 09:00; Stop 11/12/16 at 08:59 Ascorbic Acid (Vitamin C) 1,000 mg QHS PO Last administered on 10/09/16 23:25 ; Start 09/13/16 at 21:00; Stop 10/10/16 at 12:56; Status DC Aspirin (Ecotrin) 81 mg QHS PO Last administered on 10/12/16 20:25; Start at 21:00; Stop 11/11/16 at 20:59 Bisoprolol Fumarate (Zebeta) 10 mg QHS PO Last administered on 10/08/16 22:34 ; Start 09/13/16 at 21:00; Stop 11/11/16 at 20:59 Ceftaroline Fosamil 600 mg/ Dextrose 50 ml @ 50 mls/hr Q12H IV Last administered on 09/21/16 04:06; Start 09/13/16 at 16:00; Stop 09/21/16 at 07:03 ; Status DC Ceftriaxone Sodium 1 gm/ Dextrose 50 ml @ 100 mls/hr Q24H IV Last administered on 10/12/16 08:23; Start 10/08/16 at 09:00; Stop 10/12/16 at 12:15 ; Status DC Ceftriaxone Sodium 1 gm/ Dextrose 50 ml @ 100 mls/hr Q24H IV Last administered on 10/13/16 07:36; Start 10/13/16 at 09:00; Stop 10/20/16 at 08:59 Clotrimazole (Lotrimin) to both feet and betw... QID TOP Last administered on 20:38; Start 09/14/16 at 17:00; Stop 10/14/16 at 16:59 Colchicine (Colcrys) 0.6 mg BID PO Last administered on 10/12/16 08:21; Start 09/13/16 at 21:00; Stop 10/12/16 at 19:46; Status DC Colesevelam HCl (Welchol) 3,750 mg QHS PO Last administered on 10/11/16 22:04 ; Start 09/13/16 at 21:00; Stop 10/12/16 at 17:23; Status DC Dabigatran (Pradaxa) 150 mg BID PO Last administered on 10/12/16 08:22; Start 09/13/16 at 21:00; Stop 10/12/16 at 19:29; Status DC Dextrose (Dextrose 50%) 25 ml ASDIRECTED PRN IV SEE LABEL COMMENTS; Start 09/13 at 16:00; Stop 11/11/16 at 15:59 Dextrose/Sodium Chloride 1,000 ml @ 80 mls/hr [id number] IV Last administered on 09/27/16 08:24; Start 09/27/16 at 07:15; Stop 09/27/16 at 19:44; Status DC Dextrose/Water 1,000 ml @ 60 mls/hr [id number] IV Last administered on 09/28/16 11:21; Start 09/28/16 at 10:45; Stop 09/29/16 at 03:24; Status DC Dextrose/Water 1,000 ml @ 80 mls/hr [id number] IV Last administered on 09/29/16 11:10; Start 09/29/16 at 11:00; Stop 09/30/16 at 00:03; Status DC Dextrose/Water 1,000 ml @ 80 mls/hr [id number] IV Last administered on 10/03/16 22:45; Start 09/30/16 at 07:15; Stop 10/04/16 at 09:03; Status DC Dextrose/Water 1,000 ml @ 100 mls/hr Q10H IV Last administered on 10/12/16 00 :21; Start 10/09/16 at 10:00; Stop 10/12/16 at 07:02; Status DC Divalproex Sodium (Depakote Er) 250 mg BID PO Last administered on 10/12/16 08 :22; Start 09/30/16 at 21:00; Stop 10/12/16 at 20:23; Status DC Divalproex Sodium (Depakote Er) 500 mg BID PO Last administered on 09/30/16 08: 48; Start 09/25/16 at 21:00; Stop 09/30/16 at 10:55; Status DC Divalproex Sodium (Depakote Er) 500 mg QAM PO Last administered on 09/25/16 08: 09; Start 09/14/16 at 09:00; Stop 09/25/16 at 17:43; Status DC Divalproex Sodium (Depakote Er) 1,000 mg QHS PO Last administered on 09/24/16 21:48; Start 09/13/16 at 21:00; Stop 09/25/16 at 17:43; Status DC Doxycycline Hyclate (Vibramycin) 100 mg BID PO Last administered on 09/24/16 08:11; Start 09/21/16 at 09:00; Stop 09/24/16 at 09:51; Status DC Gabapentin (Neurontin) 300 mg BID PO Last administered on 10/12/16 08:22; Start 09/13/16 at 21:00; Stop 10/12/16 at 19:46; Status DC Glucagon (Glucagon) 1 mg ASDIRECTED PRN SC SEE LABEL COMMENTS; Start 09/13/16 at 16:00; Stop 11/11/16 at 15:59 Glucose (Glucose) 16 GM ASDIRECTED PRN PO SEE LABEL COMMENTS; Start 09/13/16 at 16:00; Stop 11/11/16 at 15:59 Home Med (Med Rec Complete!) ASDIRECTED XX ; Start 09/13/16 at 16:15; Stop at 16:24; Status DC Insulin Detemir (Levemir Insulin) 15 units BID SC Last administered on 08:23; Start 09/13/16 at 21:00; Stop 11/11/16 at 20:59 Insulin Human Lispro (HumaLOG INSULIN) SEE PROTOCOL TABLE AC SC Last administered on 10/12/16 17:36; Start 09/13/16 at 17:30; Stop 11/11/16 at 17:29 Insulin Human Lispro (HumaLOG INSULIN) SEE PROTOCOL TABLE QHS SC ; Start at 21:00; Stop 11/11/16 at 20:59 Isosorbide Dinitrate (Isordil) 5 mg DAILY PO Last administered on 10/12/16 08: 22; Start 09/14/16 at 09:00; Stop 10/12/16 at 19:26; Status DC Lactulose (Cephulac) 15 ml BID PO Last administered on 09/26/16 08:12; Start at 21:00; Stop 09/26/16 at 15:06; Status DC Lactulose (Cephulac) 15 ml Q6H PO Last administered on 09/27/16 05:38; Start at 18:00; Stop 09/27/16 at 07:07; Status DC Lactulose (Cephulac) 30 ml Q4H PO Last administered on 10/12/16 17:37; Start 10/11/16 at 10:00; Stop 10/12/16 at 19:31; Status DC Lactulose (Cephulac) 30 ml Q6H PO Last administered on 10/11/16 06:48; Start 09/27/16 at 12:00; Stop 10/11/16 at 09:36; Status DC Levothyroxine Sodium (Synthroid) 75 mcg DAILY@06 PO Last administered on 05:08; Start 09/14/16 at 06:00; Stop 10/14/16 at 05:59 Levothyroxine Sodium (Synthroid) 100 mcg DAILY@0600 PO Last administered on 05:08; Start 09/14/16 at 06:00; Stop 10/14/16 at 05:59 Magnesium Oxide (Mag-Ox) 400 mg BID PO Last administered on 09/18/16 21:21; Start 09/13/16 at 21:00; Stop 09/19/16 at 09:31; Status DC Menthol/Methyl Salicylate (Bengay Cream) apply to right shoulder BIDP PRN TOP DISCOMFORT Last administered on 10/07/16 08:13; Start 09/24/16 at 23:00; Stop 10/24/16 at 22:59 Meropenem 1 gm/ Dextrose 100 ml @ 200 mls/hr Q8H IV ; Start 10/12/16 at 20:00; Stop 10/12/16 at 20:00; Status DC Metoclopramide HCl (REGLAN INJection) 10 mg Q6HP PRN IV NAUSEA OR VOMITING Last administered on 10/04/16 09:14; Start 10/03/16 at 20:15; Stop 10/10/16 at 12:56; Status DC Metronidazole 500 mg/IV Miscellaneous Supplies 100 ml @ 100 mls/hr Q8H IV ; Start 10/12/16 at 20:00; Stop 10/12/16 at 20:00; Status DC Metronidazole 500 mg/IV Miscellaneous Supplies 100 ml @ 100 mls/hr Q8H IV Last administered on 10/13/16 05:08; Start 10/12/16 at 22:00; Stop 10/19/16 at 21:59 Mineral Oil (Fleet Oil Retention Enema) [address] CONSTIPATION; Start 10/12/16 at 11:45; Stop 10/12/16 at 19:31; Status DC Multivitamins (Theragram-M) 1 tab QHS PO Last administered on 09/19/16 20:22; Start 09/13/16 at 21:00; Stop 09/20/16 at 07:42; Status DC Nystatin (Mycostatin Powder, Nystop) APPLY TOPICALLY TO GROIN BID TOP Last administered on 10/12/16 20:39; Start 09/13/16 at 21:00; Stop 11/11/16 at 20:59 Nystatin/ Triamcinolone Acetonide (Mycolog) 1 dose TID TOP Last administered on 10/12/16 20:38; Start 10/05/16 at 16:00; Stop 11/04/16 at 15:59; Status Future hold Omeprazole (PriLOSEC) 40 mg QHS PO Last administered on 10/11/16 22:03; Start 09/13/16 at 21:00; Stop 10/12/16 at 19:31; Status DC Ondansetron HCl (ZOFRAN INJection) 4 mg Q4HP PRN IV NAUSEA OR VOMITING Last administered on 10/04/16 08:07; Start 10/03/16 at 20:15; Stop 10/10/16 at 12:56 ; Status DC Ondansetron HCl (ZOFRAN INJection) 4 mg Q6HP PRN IV NAUSEA OR VOMITING Last administered on 10/12/16 09:58; Start 10/12/16 at 09:30; Stop 11/11/16 at 09:29 Pantoprazole Sodium (Protonix) 40 mg QHS IV Last administered on 10/12/16 20: 23; Start 10/12/16 at 21:00; Stop 11/11/16 at 20:59 Potassium Chloride 10 meq/ IV Miscellaneous Supplies 100 ml @ 100 mls/hr Q1H IV Last administered on 10/13/16 08:14; Start 10/13/16 at 08:00; Stop at 10:59 Rifaximin (Xifaxan) 550 mg BID PO Last administered on 10/12/16 08:21; Start 10/12/16 at 09:00; Stop 10/12/16 at 19:29; Status DC Rifaximin (Xifaxan) 550 mg BID PO Last administered on 10/10/16 08:40; Start 10/01/16 at 09:00; Stop 10/10/16 at 12:56; Status DC Risperidone (RisperDAL) 0.25 mg 2XW PO ; Start 09/30/16 at 19:00; Stop 09/30/16 at 19:00; Status DC Risperidone (RisperDAL) 0.25 mg BID PO Last administered on 10/09/16 09:54; Start 09/30/16 at 21:00; Stop 10/09/16 at 23:12; Status DC Risperidone (RisperDAL) 0.25 mg DAILYPRN PRN PO ANXIETY/AGITATION; Start at 23:15; Stop 10/10/16 at 12:56; Status DC Sodium Bicarbonate 75 meq/Sodium Chloride 1,075 ml @ 200 mls/hr Q5H23M IV Last administered on 10/13/16 08:06; Start 10/12/16 at 20:00; Stop 11/11/16 at 19:59 Sodium Chloride 1,000 ml @ 60 mls/hr [id number] IV Last administered on 01:17; Start 09/13/16 at 15:58; Stop 09/15/16 at 10:06; Status DC Sodium Chloride 1,000 ml @ 80 mls/hr [id number] IV Last administered on 09/26/16 05:35; Start 09/25/16 at 18:15; Stop 09/26/16 at 07:23; Status DC Sodium Chloride 1,000 ml @ 100 mls/hr Q10H IV Last administered on 10/12/16 17:41; Start 10/12/16 at 17:45; Stop 10/12/16 at 19:23; Status DC Spironolactone (Aldactone) 25 mg DAILY PO Last administered on 09/17/16 08:57 ; Start 09/15/16 at 09:00; Stop 09/17/16 at 10:14; Status DC Torsemide (Demadex) 100 mg BID@0900,1700 PO Last administered on 09/16/16 16: 50; Start 09/15/16 at 09:00; Stop 09/17/16 at 10:14; Status DC Vancomycin HCl (First-Vancomycin 50- 250mg/5ml) 250 mg Q6H PO Last administered on 10/13/16 05:08; Start 10/12/16 at 18:00; Stop 10/19/16 at 17:59 Vancomycin HCl 1000 mg/IV Miscellaneous Supplies 1 each/ Dextrose 270 ml @ 270 mls/hr Q12H IV ; Start 10/13/16 at 06:00; Stop 10/13/16 at 06:00; Status DC Vitamin D (Vitamin D) 2,000 units QHS PO Last administered on 10/11/16t 22:04; Start 09/13/16 at 21:00; Stop 10/12/16 at 19:46; Status DC Allergies Coded Allergies: Valsartan (Unverified Allergy, Unknown, 05/17/14) Atorvastatin (Verified Adverse Reaction, Intermediate, UPSET STOMACH, 06/11) Quinolones (Verified Adverse Reaction, Intermediate, UPSET STOMACH, ) Objective Physical Examination Examination GENERAL APPEARANCE:Patient seen, laying in bed, awake, alert, and oriented to person, place, not time SKIN: Warm and dry HEENT: Normocephalic, atraumatic. Thaxton palpebral conjunctiva, anicteric sclerae. Lips and mucosa appear moist. NECK: Supple, no thyromegaly. No obvious jugular venous distention. LUNGS: Clear to auscultation bilaterally. No wheezing appreciated. HEART: Regular heart rate and rhythm ABDOMEN: Abdomen is markedly round, obese, moderately distended, hypoactive bowel sounds, nontender on palpation EXTREMITIES: chronic skin changes d/t venous hypertension, minimal edema. Vital Signs Vital Signs Date Time Temp Pulse Resp B/P (MAP) Pulse Ox O2 Delivery O2 Flow Rate FiO2 10/13/16 08:00 Nasal Cannula 4.0 10/13/16 08:00 97.3 63 16 74/50 (58) 93 10/12/16 20:09 50 I&Os I&O- Last 24 Hours up to 6 AM 10/13/16 05:59 Intake Total 2500 ml Output Total 0 ml Balance 2500 ml Laboratory Data Labs 24H Laboratory Tests 2 10/12/16 16:58: Neutrophils 89H, Band Neutrophils 7, Lymphocytes (Manual) 2L, Monocytes (Manual ) 1, Eosinophils (Manual) 1, Platelet Estimate NORMAL, Anisocytosis 1+, Macrocytosis 1+, Anion Gap 15, Glomerular Filtration Rate 56.4, Blood Urea Nitrogen 35H, Creatinine 1.33#H, Sodium Level 142, Potassium Level 4.2, Chloride Level 115H, Carbon Dioxide Level 12L, Calcium Level 8.8, Aspartate Amino Transf (AST/SGOT) 49H, Alanine Aminotransferase (ALT/SGPT) 44, Total Creatine Kinase 16L, Alkaline Phosphatase 409H, Total Bilirubin 1.2H, Total Protein 5.3L, Albumin 2.6L, Magnesium Level 2.1, Creatine Kinase MB 1.8, Creatine Kinase MB Relative Index 11.25H, Troponin I 0.03, Albumin/Globulin Ratio 0.96L 10/12/16 18:00: Neutrophils 88H, Band Neutrophils 8, Lymphocytes (Manual) 2L, Monocytes (Manual ) 2, Platelet Estimate NORMAL, Anisocytosis 1+, Macrocytosis 1+, Magnesium Level 2.0, Polychromasia 1+, Erythrocyte Sedimentation Rate 1, Lactic Acid Level 3.4*H, C-Reactive Protein, Quantitative 2.76H, Lipase 51L, Valproic Acid ( Depakene) Level 15.7L 10/12/16 18:27: Urine Appearance CLOUDYH, Urine Color JOB, Urine pH 6.0, Urine Specific Goff 1.023, Urine Protein 2+H, Urine Glucose (UA) NEGATIVE, Urine Ketones NEGATIVE, Urine Urobilinogen 0.2, Urine Bilirubin NEGATIVE, Urine Leukocyte Esterase TRACEH, Urine Blood 3+H, Urine Nitrite NEGATIVE, Urine WBC (Auto) TNTCH , Urine RBC (Auto) TNTCH, Urine Hyaline Casts (Auto) 0, Urine Bacteria (Auto) 1+ H, Urine Squamous Epithelial Cells 0, Urine Sperm (Auto) 10/12/16 18:40: Blood Gas Bicarbonate Standard 13.3L, Arterial Blood pH 7.248*L, Arterial Blood Partial Pressure CO2 24.3L, Arterial Blood Partial Pressure O2 98.8, Arterial Blood Total CO2 11.1L, Arterial Blood HCO3 10.4L, Arterial Blood Base Excess - 15.0L, Arterial Blood Oxygen Saturation 96.9 10/12/16 20:00: Prothrombin Time 24.3H, Prothromb Time International Ratio 2.10, Activated Partial Thromboplast Time 60.4H 10/12/16 20:36: Bedside Glucose (Misc Panel) 150H 10/13/16 04:40: Neutrophils 88H, Band Neutrophils 3, Lymphocytes (Manual) 5L, Monocytes (Manual ) 4, Platelet Estimate NORMAL, Polychromasia , Hypochromasia 1+, Anisocytosis 1+ , Macrocytosis 1+, Ovalocytes 1+, Erythrocyte Sedimentation Rate 5, Anion Gap 13 , Glomerular Filtration Rate 52.3, Lactic Acid Level 2.2*H, Blood Urea Nitrogen 35H, Creatinine 1.42H, Sodium Level 145, Potassium Level 3.3#L, Chloride Level 117H, Carbon Dioxide Level 15L, Calcium Level 8.1L, Aspartate Amino Transf (AST/ SGOT) 27, Alanine Aminotransferase (ALT/SGPT) 33, Alkaline Phosphatase 294H, Total Bilirubin 0.7, Total Protein 4.1#L, Albumin 2.1L, Magnesium Level 1.9, Ammonia 40H, C-Reactive Protein, Quantitative 7.84H, Albumin/Globulin Ratio 1.05 10/13/16 06:49: Blood Gas Bicarbonate Standard 16.1L, Arterial Blood pH 7.329L, Arterial Blood Partial Pressure CO2 26.9L, Arterial Blood Partial Pressure O2 70.3L, Arterial Blood Total CO2 14.7L, Arterial Blood HCO3 13.8L, Arterial Blood Base Excess - 10.5L, Arterial Blood Oxygen Saturation 94.4L 10/13/16 08:13: Bedside Glucose (Misc Panel) 127H CBC/BMP Laboratory Tests 10/12/16 16:58 Red Blood Count 5.11, Mean Corpuscular Volume 96.4 H, Mean Corpuscular Hemoglobin 30.0, Mean Corpuscular Hemoglobin Concent 31.1 L, Red Cell Distribution Width 16.4 H, Calcium Level 8.8, Aspartate Amino Transf (AST/SGOT) 49 H, Alanine Aminotransferase (ALT/SGPT) 44, Total Creatine Kinase 16 L, Alkaline Phosphatase 409 H, Total Bilirubin 1.2 H, Total Protein 5.3 L, Albumin 2.6 L 10/12/16 18:00 Red Blood Count 5.01, Mean Corpuscular Volume 96.7 H, Mean Corpuscular Hemoglobin 29.9, Mean Corpuscular Hemoglobin Concent 30.9 L, Red Cell Distribution Width 16.3 H 10/13/16 04:40 Red Blood Count 4.07 L, Mean Corpuscular Volume 95.1, Mean Corpuscular Hemoglobin 29.6, Mean Corpuscular Hemoglobin Concent 31.1 L, Red Cell Distribution Width 16.5 H, Calcium Level 8.1 L, Aspartate Amino Transf (AST/SGOT ) 27, Alanine Aminotransferase (ALT/SGPT) 33, Alkaline Phosphatase 294 H, Total Bilirubin 0.7, Total Protein 4.1 #L, Albumin 2.1 L Microbiology Microbiology 10/12/16 Blood Culture, Received Pending 10/12/16 Blood Culture, Received Pending 10/09/16 Blood Culture - Preliminary, Resulted No Growth after 72 hours. All specime... 10/09/16 Blood Culture - Preliminary, Resulted No Growth after 72 hours. All specime... 10/04/16 Gram Stain - Final, Complete 10/04/16 Body Fluid Culture - Final, Complete 10/12/16 Clostridium difficile (PCR) - Final, Complete 10/12/16 Gastrointestinal Tract Panel (PCR) - Final, Complete 10/12/16 Urine Culture, Received Pending 10/09/16 Urine Culture - Final, Complete 10/04/16 Urine Culture - Final, Complete Proteus Mirabilis Impression Abdominal pain, leukocytosis, sepsis, hypotension colitis - c. difficile colitis possibly given the extent of leukemoid reaction. Initial stool sample sent is negative ofr C. Diff. Suggest re sending another sample and continue empiric treatment. all other cultures are pending His abdomen remains moderately distended, but benign on exam. If Cr. is better would re-do CT scan of abdomen and pelvis with IV contrast, although if he had ischemic small bowel, he would have definite peritoneal findings on exam at this point. Plan / VTE VTE Prophylaxis Ordered?: Yes (pradaxa) ABHISHEK EARLY MD Oct 13, 2016 08:56
[2016-10-13] MEDS: LEVEMIR (INSULIN DETEMIR) 1 UNITS/0.01ML SC SCH ×2 (09:00→20:34)
[2016-10-13] MEDS: MYCOLOG CREAM 15 GM (NYSTATIN/TRIAMCINOLONE) TOP SCH ×3 (09:00→20:29)
[2016-10-13] MEDS: LACRILUBE (AKWA TEARS) OPHTH OINT 3.5 GM OU SCH ×3 (10:21→20:30)
[2016-10-13] MEDS: NYSTATIN 100,000 UNITS/GM TOPICAL PWD 15 GM TOP SCH ×2 (10:22→20:31)
[2016-10-13] MEDS: CLOTRIMAZOLE 1% TOPICAL CREAM 30GM TOP SCH ×4 (11:52→20:30)
--- NOTE | 2016-10-13 12:05 | ECGEPIP ---
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
[2016-10-13] MEDS ORDERED: SODIUM BICARBONATE 75 MEQ in NS 0.45% 1,000 ML IV SCH (13:00)
--- NOTE | 2016-10-13 14:39 | IPNPDOC ---
Text Note Date of Service The patient was seen on 10/13/16. NOTE Subjective: Patient is a 71 year old male with a PMHx of COPD, PINKY, Diastolic CHF , A. fib (on Pradaxa), AV block (s/p PM), HTN, DM2, Seizure disorder, Hypothyroidism, Gout, Obesity, GERD, Retinal detachment of right / Macular degeneration of Left, Chronic venous stasis with stasis dermatitis, Tremors, CKD3, Pulmonary HTN, Hydrocele and varicocele on Left. Presented to the ER with complaints of right leg pain, warmth and redness, found to be 2/2 Cellulitis. He has completed therapy with Ceftaroline and Doxycycline. Remainder of hospital stay significant for extended waxing/waning mentation. Patient was upgraded to ICU on 10/12 PM. On the morning of 10/12, patient had abdominal pain and tenderness on physical exam and additional imaging was acquired via XR and CT abdomen. Imaging was consistent with possible fecal impaction. Manual disimpaction was performed and did not reveal any solid stools and only liquid stools were evident. He had labs drawn simultaneously, which revealed an elevation in WBC. Throughout late afternoon he had atrial fibrillation with rate of 90s and he became hypotensive. Patient was upgraded at that point and had a central line placed for aggressive IV fluid support and antibiotics. Patient seen and examined at bedside. He is oriented to person and place, not to time. He denies any abdominal pain, nausea or vomiting. Nursing staff has notified me that he has been having diarrhea overnight, 3 episodes. No fevers reported. Objective: Vitals (See below) General: no acute distress, comfortable, lying in bed, Oriented to person/place HEENT: NC, AT CVS: IrIr, +S1S2 Lungs: Fair air entry b/l, no appreciable wheezing Abdomen: Soft, Non-distended, No appreciable tenderness Extremities: chronic venous stasis changes, 1+ pitting edema bilaterally, no calf tenderness Assessment and plan: 1. Acute metabolic encephalopathy - possibly 2/2 elevated ammonia - possibly 2/ 2 Depakote, possibly 2/2 infection / sepsis - Awake and alert, better oriented, not oriented to time - Still without any focal deficits - CT head 09/24: small vessel ischemic disease and moderate volume loss - Neurology has been following; possible could take several days to weeks to resolve - c/w lactulose; s/p Depakote - s/p Risperidone for agitation - c/w treatment for UTI (See #3) 2. Hypotension - likely 2/2 septic shock, less likely 2/2 medications - Reported abdominal pain on 10/13; associated with nausea and abdominal pain this morning - Physical with abdominal distension and epigastric tenderness initially; has resolved at this point - Significant leukocytosis and lactic acidosis; improving - GI panel and C. diff PCR 10/12: Negative; will repeat C. diff PCR - Blood cultures 10/12 pending - CT abdomen/pelvis 10/12: colonic distension, large volume fecal residue in rectal ampulla, possibly impaction - s/p Manual disimpaction; no evidence of solid stools - c/w Ceftriaxone IV, Flagyl IV and Vancomycin PO (Day #2) - Will continue to monitor CVP and adjust fluids accordingly - Repeat CBC - Dr. Best and Dr. Chin on consult; appreciate their input 3. AG and NAG metabolic acidosis - likely 2/2 lactic acidosis and diarrhea - Delta/Delta of < 1 - c/w Bicarbonate drip - Will follow up 1400 labs to see if Bicarbonate is improving 4. Acute kidney injury - likely 2/2 pre-renal etiology, possibly intra-renal etiology - c/w IV fluid hydration with 0.45% NS and Bicarbonate - Will follow up 1400 labs 5. Recent history of UTI - Urine culture 10/04: Proteus mirabilis - Urine culture 10/13: Currently negative 6. s/p Hypernatremia - s/p D5W 7. s/p Paracentesis - No evidence of abdominal pain or infection - Removed <500cc of fluid for analysis - Fluid analysis in consistent with infection 8. s/p Right LE cellulitis - Redness, warmth and tenderness have resolved - Physical shows resolution or erythema / warmth / tenderness - No leukocytosis of elevation of lactic acid 9. s/p Respiratory distress - possibly 2/2 fluid overload, PINKY / OHS - requiring supplemental oxygen - CT chest 09/18: No infiltrates, effusions or masses - CXR 09/22: unchanged - c/w supplemental oxygen and continue to titrate down - c/w acapella and incentive spirometry 10. Chronic compensated diastolic CHF - ECHO 06/2016: EF 65%, moderate pulmonary HTN - appears compensated 11. PINKY - c/w CPAP at night 12. s/p Hypermagnesemia - s/p Mg supplementation 13. AV block - s/p PM 14. HTN - BP has remained stable - s/p Isosorbide dinitrate - c/w reduced dose Bisoprolol (re: A. fib) 15. DM2 - c/w ISS 16. Seizure disorder - s/p Depakote 17. Hypothyroidism - c/w Synthroid 18. Gout - c/w Allopurinol and Colchicine 19. A. fib - rate controlled with Bisoprolol with holding parameters - s/p Pacemaker - Hold anticoagulation with Pradaxa for now 20. GERD - c/w Prilosec 21. DVT prophylaxis - c/w SCDs; Pradaxa on hold Disposition: - Evaluate for C.diff infection - Possible CT abdomen - will require placement VS,Fishbone, I+O VS, Fishbone, I+O Laboratory Tests 10/12/16 16:58 Red Blood Count 5.11, Mean Corpuscular Volume 96.4 H, Mean Corpuscular Hemoglobin 30.0, Mean Corpuscular Hemoglobin Concent 31.1 L, Red Cell Distribution Width 16.4 H, Calcium Level 8.8, Aspartate Amino Transf (AST/SGOT) 49 H, Alanine Aminotransferase (ALT/SGPT) 44, Total Creatine Kinase 16 L, Alkaline Phosphatase 409 H, Total Bilirubin 1.2 H, Total Protein 5.3 L, Albumin 2.6 L 10/12/16 18:00 Red Blood Count 5.01, Mean Corpuscular Volume 96.7 H, Mean Corpuscular Hemoglobin 29.9, Mean Corpuscular Hemoglobin Concent 30.9 L, Red Cell Distribution Width 16.3 H 10/13/16 04:40 Red Blood Count 4.07 L, Mean Corpuscular Volume 95.1, Mean Corpuscular Hemoglobin 29.6, Mean Corpuscular Hemoglobin Concent 31.1 L, Red Cell Distribution Width 16.5 H, Calcium Level 8.1 L, Aspartate Amino Transf (AST/SGOT ) 27, Alanine Aminotransferase (ALT/SGPT) 33, Alkaline Phosphatase 294 H, Total Bilirubin 0.7, Total Protein 4.1 #L, Albumin 2.1 L Vital Signs Date Time Temp Pulse Resp B/P (MAP) Pulse Ox O2 Delivery O2 Flow Rate FiO2 10/13/16 13:48 63 79/47 (58) 92 10/13/16 12:00 97.6 16 Nasal Cannula 2.0 10/12/16 20:09 50 I&O- Last 24 Hours up to 6 AM 10/13/16 05:59 Intake Total 2500 ml Output Total 0 ml Balance 2500 ml JOE HDEZ MD Oct 13, 2016 14:31
[2016-10-13 14:46] LABS: ANION GAP 11 MEQ/L (8-16); BLOOD UREA NITROGEN 33 MG/DL (7-18); CALCIUM LEVEL 7.5 MG/DL (8.8-10.2); CARBON DIOXIDE LEVEL 17 MEQ/L (21-32); CHLORIDE LEVEL 119 MEQ/L (98-107); CREATININE FOR GFR 1.08 MG/DL (0.70-1.30); GLOMERULAR FILTRATION RATE > 60.0 (>42); GLUCOSE, FASTING 112 MG/DL (83-110); MAGNESIUM LEVEL 1.8 MG/DL (1.8-2.4); POTASSIUM SERUM 3.3 MEQ/L (3.5-5.1); SODIUM LEVEL 147 MEQ/L (136-145)
[2016-10-13 15:12] LABS: BASO % 0.1 % (0.0-1.0); EOS % 0.4 % (0.0-3.0); LARGE UNSTAINED CELL # 0.1 K/mm3 (0.0-0.4); LARGE UNSTAINED CELL % 0.6 % (0.0-4.0); LYMPH # 0.7 K/mm3 (1.5-4.5); LYMPH % 5.7 % (24.0-44.0); MEAN CORPUSCULAR HEMOGLOBIN 29.7 pg (27.0-33.0); MEAN CORPUSCULAR HGB CONC 31.4 g/dl (32.0-36.5); MEAN CORPUSCULAR VOLUME 94.7 fl (80.0-96.0); MONO # 0.4 K/mm3 (0.0-0.8); MONO % 3.3 % (0.0-5.0); NEUTROPHILS # 9.4 K/mm3 (1.8-7.7); NEUTROPHILS % 89.9 % (36.0-66.0); PLATELET COUNT, AUTOMATED 139 k/mm3 (150-450); RED CELL DISTRIBUTION WIDTH 16.4 % (11.5-14.5); WHITE BLOOD COUNT 10.4 K/mm3 (4.0-10.0)
[2016-10-13] MEDS: PANTOPRAZOLE 40MG INJ (PROTONIX) (C9113) IV SCH (20:28)
[2016-10-13] MEDS: BISOPROLOL FUMARATE 5 MG TAB PO SCH (20:31)
[2016-10-13] MEDS: ASPIRIN 81 MG ENTERIC TAB PO SCH (20:31)
[2016-10-13 21:50] LABS: ANION GAP 10 MEQ/L (8-16); BLOOD UREA NITROGEN 30 MG/DL (7-18); CALCIUM LEVEL 7.5 MG/DL (8.8-10.2); CARBON DIOXIDE LEVEL 17 MEQ/L (21-32); CHLORIDE LEVEL 118 MEQ/L (98-107); GLOMERULAR FILTRATION RATE > 60.0 (>42); GLUCOSE, FASTING 136 MG/DL (83-110); MAGNESIUM LEVEL 1.8 MG/DL (1.8-2.4); POTASSIUM SERUM 3.5 MEQ/L (3.5-5.1); SODIUM LEVEL 145 MEQ/L (136-145)
[2016-10-13] MEDS ORDERED: MAG SULF 1GM/100ML (MAG RUN) 1 GM in APPROPRIATE DILUENT 1 EA IV ONE (22:15)
[2016-10-14] VITALS (16 sets, daily range): BP systolic 88–120; BP diastolic 51–70
[2016-10-14] MEDS: VANCOMYCIN ORAL SOL 250MG/5ML ORAL SYRINGE PO SCH ×4 (00:02→17:04)
[2016-10-14] MEDS: KCL 10MEQ IN 100ML SWI (KRUN) 10 MEQ in APPROPRIATE DILUENT 1 EA IV SCH ×4 (00:47→01:45)
[2016-10-14] MEDS: IPRATROPIUM 0.5MG/ALBUTEROL 2.5MG INH SOL UD 3ML (DUONEB)(J7620) NEB SCH ×4 (01:54→19:20)
[2016-10-14] MEDS: SODIUM BICARBONATE 100 MEQ, POTASSIUM CHLORIDE INJ 40 MEQ in D5W 1,000 ML IV SCH ×2 (02:17→14:21)
[2016-10-14] MEDS: metroNIDAZOLE 500 MG in APPROPRIATE DILUENT 1 EA IV SCH ×3 (05:02→21:31)
[2016-10-14 06:19] LABS: MEAN CORPUSCULAR HEMOGLOBIN 29.9 pg (27.0-33.0); MEAN CORPUSCULAR HGB CONC 31.6 g/dl (32.0-36.5); MEAN CORPUSCULAR VOLUME 94.8 fl (80.0-96.0); RED CELL DISTRIBUTION WIDTH 16.7 % (11.5-14.5); WHITE BLOOD COUNT 11.8 K/mm3 (4.0-10.0)
[2016-10-14 06:26] LABS: ALBUMIN 1.8 GM/DL (3.2-5.2); ALBUMIN/GLOBULIN RATIO 0.72 (1.00-1.93); ALKALINE PHOSPHATASE 224 U/L (45-117); ALT/SGPT 22 U/L (12-78); ANION GAP 11 MEQ/L (8-16); AST/SGOT 15 U/L (15-37); BILIRUBIN,TOTAL 0.7 MG/DL (0.2-1.0); BLOOD UREA NITROGEN 31 MG/DL (7-18); CARBON DIOXIDE LEVEL 17 MEQ/L (21-32); CHLORIDE LEVEL 118 MEQ/L (98-107); CREATININE FOR GFR 0.87 MG/DL (0.70-1.30); GLOMERULAR FILTRATION RATE > 60.0 (>42); GLUCOSE, FASTING 138 MG/DL (83-110); POTASSIUM SERUM 3.8 MEQ/L (3.5-5.1); SODIUM LEVEL 146 MEQ/L (136-145); TOTAL PROTEIN 4.3 GM/DL (6.4-8.2)
--- NOTE | 2016-10-14 07:41 | REP ---
Urinary tract sonography: History: Acute kidney insufficiency. Look for obstruction. Comparison CT study 10/12/2016 Sonographic findings: Scanning at the level of the urinary bladder demonstrates a Estes catheter. Renal cortical echogenicity pattern is normal and contours are smooth. No hydronephrosis is seen on either side. There is a small cyst 1.2 cm in greatest diameter in the mid to lower pole right kidney. Right kidney measures 11.2 x 8.1 x 5.8 cm. Left renal dimensions are 17.3 x 6.7 x 7.8 cm. There are multiple cysts in the lower pole left kidney corresponding to the findings on CT. Lower pole cysts are seen measuring 6.8 x 6.5 x 5.7 cm, 4.1 x 2.9 x 3.3 cm, and 5.5 x 5.2 x 5.1. Impression: Multiple cortical cysts left kidney. One small simple cyst right kidney. No hydronephrosis seen. Signed by Giovani Marrero MD 10/14/2016 08:48 A
[2016-10-14] MEDS: LEVEMIR (INSULIN DETEMIR) 1 UNITS/0.01ML SC SCH ×2 (08:30→21:33)
[2016-10-14] MEDS: HumaLOG INSULIN (NovoLOG) PER UNIT SC SCH ×4 (08:30→21:00)
[2016-10-14] MEDS: NYSTATIN 100,000 UNITS/GM TOPICAL PWD 15 GM TOP SCH ×2 (08:31→21:31)
[2016-10-14] MEDS: cefTRIAXone SOD 1 GM in D5W MINI-BAG PLUS 50 ML IV SCH (08:31)
[2016-10-14] MEDS: ACETAMINOPHEN TAB 650MG DOSE (2X325MG) PO PRN (08:31)
[2016-10-14] MEDS: MYCOLOG CREAM 15 GM (NYSTATIN/TRIAMCINOLONE) TOP SCH ×3 (08:32→21:34)
[2016-10-14] MEDS: CLOTRIMAZOLE 1% TOPICAL CREAM 30GM TOP SCH (08:32)
[2016-10-14] MEDS: LACRILUBE (AKWA TEARS) OPHTH OINT 3.5 GM OU SCH ×3 (08:33→21:33)
[2016-10-14] MEDS ORDERED: NS 1,000 ML IV ONE (10:00)
[2016-10-14] MEDS: LEVOTHYROXINE 100MCG TABLET (0.1MG) PO SCH (10:59)
[2016-10-14] MEDS: LEVOTHYROXINE 75MCG TABLET (0.075MG) PO SCH (10:59)
--- NOTE | 2016-10-14 13:56 | IPNPDOC ---
Text Note Date of Service The patient was seen on 10/14/16. NOTE Subjective: Patient is a 71 year old male with a PMHx of COPD, PINKY, Diastolic CHF , A. fib (on Pradaxa), AV block (s/p PM), HTN, DM2, Seizure disorder, Hypothyroidism, Gout, Obesity, GERD, Retinal detachment of right / Macular degeneration of Left, Chronic venous stasis with stasis dermatitis, Tremors, CKD3, Pulmonary HTN, Hydrocele and varicocele on Left. Presented to the ER with complaints of right leg pain, warmth and redness, found to be 2/2 Cellulitis. He has completed therapy with Ceftaroline and Doxycycline. Remainder of hospital stay significant for extended waxing/waning mentation. Patient was upgraded to ICU on 10/12 PM. On the morning of 10/12, patient had abdominal pain and tenderness on physical exam and additional imaging was acquired via XR and CT abdomen. Imaging was consistent with possible fecal impaction. Manual disimpaction was performed and did not reveal any solid stools and only liquid stools were evident. He had labs drawn simultaneously, which revealed an elevation in WBC. Throughout late afternoon he had atrial fibrillation with rate of 90s and he became hypotensive. Patient was upgraded at that point and had a central line placed for aggressive IV fluid support and antibiotics. Patient seen and examined at bedside. He denies any abdominal pain, nausea, vomiting. Still noted to have diarrhea. Has had 3 episodes overnight. Objective: Vitals (See below) General: no acute distress, comfortable, lying in bed, Awake and alert, conversive HEENT: NC, AT CVS: IrIr, +S1S2 Lungs: Poor inspiratory effort b/l, no appreciable wheezing Abdomen: Soft, Non-distended, No appreciable tenderness Extremities: Chronic venous stasis changes, 2+ pitting edema bilaterally, no calf tenderness Assessment and plan: 1. Acute metabolic encephalopathy - possibly 2/2 elevated ammonia - possibly 2/ 2 Depakote, possibly 2/2 infection / sepsis - Awake and alert; showing improvement - Still without any focal deficits - CT head 09/24: small vessel ischemic disease and moderate volume loss - s/p Depakote and Lactulose - s/p Risperidone 2. Hypotension - likely 2/2 severe sepsis - likely 2/2 colitis, less likely 2/2 medications - Reported abdominal pain on 10/13; associated with nausea and abdominal pain this morning - Physical with abdominal distension and epigastric tenderness initially; has resolved - Significant leukocytosis and lactic acidosis; improving - GI panel and C. diff PCR 10/12: Negative; Repeat C. diff negative - Blood cultures 10/12: Negative at 24 hours - CT abdomen/pelvis 10/12: colonic distension, large volume fecal residue in rectal ampulla, possibly impaction - s/p Manual disimpaction; no evidence of solid stools - c/w Ceftriaxone IV, Flagyl IV and Vancomycin PO (Day #3) - CVP noted to be low again this morning; c/w NS boluses PRN and adjusted fluids accordingly 3. AG and NAG metabolic acidosis - likely 2/2 lactic acidosis and diarrhea - Delta/Delta of < 1 - c/w Bicarbonate drip - Will repeat labs at 200PM 4. s/p Acute kidney injury - likely 2/2 pre-renal etiology, possibly intra- renal etiology 5. Coagulopathy - possibly 2/2 liver dysfunction - Elevated INR / PT / PTT - No evidence of bleeding - Hold Pradaxa - Will follow INR daily 6. s/p UTI - Urine culture 10/04: Proteus mirabilis - Urine culture 10/13: Currently negative 7. s/p Hypernatremia - s/p D5W 8. s/p Paracentesis - No evidence of abdominal pain or infection - Removed <500cc of fluid for analysis - Fluid analysis in consistent with infection 9. s/p Right LE cellulitis - Redness, warmth and tenderness have resolved - Physical shows resolution or erythema / warmth / tenderness - No leukocytosis of elevation of lactic acid 10. s/p Respiratory distress - possibly 2/2 fluid overload, PINKY / OHS - requiring supplemental oxygen - CT chest 09/18: No infiltrates, effusions or masses - CXR 09/22: unchanged - c/w supplemental oxygen and continue to titrate down - c/w acapella and incentive spirometry 11. Chronic compensated diastolic CHF - ECHO 06/2016: EF 65%, moderate pulmonary HTN - appears compensated 12. PINKY - c/w CPAP at night 13. s/p Hypermagnesemia - s/p Mg supplementation 14. AV block - s/p PM 15. HTN - BP has remained stable - s/p Isosorbide dinitrate - c/w reduced dose Bisoprolol (re: A. fib) 16. DM2 - c/w ISS 17. Seizure disorder - s/p Depakote 18. Hypothyroidism - c/w Synthroid 19. Gout - c/w Allopurinol and Colchicine 20. A. fib - Rate controlled with Bisoprolol with holding parameters; reduced dose to 5mg from 10mg - s/p Pacemaker - Hold anticoagulation with Pradaxa for now 21. GERD - s/p Omeprazole - c/w Protonix IV 22. DVT prophylaxis - c/w SCDs; Pradaxa on hold VS,Fishbone, I+O VS, Fishbone, I+O Laboratory Tests 10/13/16 13:55 Calcium Level 7.5 L 10/13/16 14:59 Red Blood Count 3.82 L, Mean Corpuscular Volume 94.7, Mean Corpuscular Hemoglobin 29.7, Mean Corpuscular Hemoglobin Concent 31.4 L, Red Cell Distribution Width 16.4 H, Neutrophils (%) (Auto) 89.9 H, Lymphocytes (%) (Auto ) 5.7 L, Monocytes (%) (Auto) 3.3, Eosinophils (%) (Auto) 0.4, Basophils (%) ( Auto) 0.1, Neutrophils # (Auto) 9.4 H, Lymphocytes # (Auto) 0.7 L, Monocytes # ( Auto) 0.4, Eosinophils # (Auto) 0.0, Basophils # (Auto) 0.0 10/13/16 21:23 Calcium Level 7.5 L 10/14/16 05:50 Calcium Level 8.0 L, Red Blood Count 3.78 L, Mean Corpuscular Volume 94.8, Mean Corpuscular Hemoglobin 29.9, Mean Corpuscular Hemoglobin Concent 31.6 L, Red Cell Distribution Width 16.7 H, Aspartate Amino Transf (AST/SGOT) 15, Alanine Aminotransferase (ALT/SGPT) 22, Alkaline Phosphatase 224 H, Total Bilirubin 0.7 , Total Protein 4.3 L, Albumin 1.8 L Vital Signs Date Time Temp Pulse Resp B/P (MAP) Pulse Ox O2 Delivery O2 Flow Rate FiO2 10/14/16 11:00 60 22 101/60 (74) 96 Nasal Cannula 2.0 10/14/16 08:00 98.7 8/18/17 20:09 50 I&O- Last 24 Hours up to 6 AM 10/14/16 06:00 Intake Total 8150 ml Output Total 525 ml Balance 7625 ml JOE HDEZ MD Oct 14, 2016 13:56
[2016-10-14 15:08] LABS: ALBUMIN 1.9 GM/DL (3.2-5.2); ALBUMIN/GLOBULIN RATIO 0.79 (1.00-1.93); ALKALINE PHOSPHATASE 223 U/L (45-117); ALT/SGPT 21 U/L (12-78); ANION GAP 10 MEQ/L (8-16); AST/SGOT 16 U/L (15-37); BILIRUBIN,TOTAL 0.6 MG/DL (0.2-1.0); BLOOD UREA NITROGEN 28 MG/DL (7-18); CALCIUM LEVEL 7.8 MG/DL (8.8-10.2); CARBON DIOXIDE LEVEL 19 MEQ/L (21-32); CHLORIDE LEVEL 116 MEQ/L (98-107); CREATININE FOR GFR 0.86 MG/DL (0.70-1.30); GLOMERULAR FILTRATION RATE > 60.0 (>42); GLUCOSE, FASTING 186 MG/DL (83-110); MAGNESIUM LEVEL 1.9 MG/DL (1.8-2.4); POTASSIUM SERUM 3.6 MEQ/L (3.5-5.1); SODIUM LEVEL 145 MEQ/L (136-145); TOTAL PROTEIN 4.3 GM/DL (6.4-8.2)
[2016-10-14 19:57] LABS: ALBUMIN 1.9 GM/DL (3.2-5.2); ALBUMIN/GLOBULIN RATIO 0.79 (1.00-1.93); ALKALINE PHOSPHATASE 246 U/L (45-117); ALT/SGPT 20 U/L (12-78); ANION GAP 10 MEQ/L (8-16); AST/SGOT 14 U/L (15-37); BILIRUBIN,TOTAL 0.6 MG/DL (0.2-1.0); BLOOD UREA NITROGEN 25 MG/DL (7-18); CALCIUM LEVEL 7.4 MG/DL (8.8-10.2); CARBON DIOXIDE LEVEL 19 MEQ/L (21-32); CHLORIDE LEVEL 116 MEQ/L (98-107); GLOMERULAR FILTRATION RATE > 60.0 (>42); GLUCOSE, FASTING 165 MG/DL (83-110); PHOSPHORUS LEVEL 1.4 MG/DL (2.5-4.9); POTASSIUM SERUM 3.6 MEQ/L (3.5-5.1); SODIUM LEVEL 145 MEQ/L (136-145); TOTAL PROTEIN 4.3 GM/DL (6.4-8.2)
[2016-10-14 20:01] LABS: MAGNESIUM LEVEL 1.9 MG/DL (1.8-2.4)
[2016-10-14] MEDS: BISOPROLOL FUMARATE 5 MG TAB PO SCH (21:32)
[2016-10-14] MEDS: ASPIRIN 81 MG ENTERIC TAB PO SCH (21:32)
[2016-10-14] MEDS: PANTOPRAZOLE 40MG INJ (PROTONIX) (C9113) IV SCH (21:33)
[2016-10-15] VITALS (15 sets, daily range): BP systolic 85–130; BP diastolic 54–80
[2016-10-15] MEDS: VANCOMYCIN ORAL SOL 250MG/5ML ORAL SYRINGE PO SCH ×6 (00:28→23:53)
[2016-10-15] MEDS: NS 1,000 ML IV SCH ×3 (00:28→08:03)
[2016-10-15] MEDS: IPRATROPIUM 0.5MG/ALBUTEROL 2.5MG INH SOL UD 3ML (DUONEB)(J7620) NEB SCH ×4 (01:13→19:15)
[2016-10-15 05:24] LABS: MEAN CORPUSCULAR HEMOGLOBIN 29.5 pg (27.0-33.0); MEAN CORPUSCULAR VOLUME 95.3 fl (80.0-96.0); RED CELL DISTRIBUTION WIDTH 16.7 % (11.5-14.5); WHITE BLOOD COUNT 9.5 K/mm3 (4.0-10.0)
[2016-10-15 05:30] LABS: INR 1.8
[2016-10-15] MEDS: LEVOTHYROXINE 75MCG TABLET (0.075MG) PO SCH (05:36)
[2016-10-15] MEDS: LEVOTHYROXINE 100MCG TABLET (0.1MG) PO SCH (05:36)
[2016-10-15] MEDS: metroNIDAZOLE 500 MG in APPROPRIATE DILUENT 1 EA IV SCH ×3 (05:36→22:05)
[2016-10-15 06:00] LABS: ALBUMIN 1.9 GM/DL (3.2-5.2); ALBUMIN/GLOBULIN RATIO 0.76 (1.00-1.93); ALKALINE PHOSPHATASE 235 U/L (45-117); ALT/SGPT 19 U/L (12-78); ANION GAP 7 MEQ/L (8-16); AST/SGOT 16 U/L (15-37); BILIRUBIN,TOTAL 0.7 MG/DL (0.2-1.0); BLOOD UREA NITROGEN 23 MG/DL (7-18); CALCIUM LEVEL 7.9 MG/DL (8.8-10.2); CARBON DIOXIDE LEVEL 21 MEQ/L (21-32); CHLORIDE LEVEL 118 MEQ/L (98-107); CREATININE FOR GFR 0.65 MG/DL (0.70-1.30); GLOMERULAR FILTRATION RATE > 60.0 (>42); GLUCOSE, FASTING 95 MG/DL (83-110); PHOSPHORUS LEVEL 1.4 MG/DL (2.5-4.9); POTASSIUM SERUM 3.7 MEQ/L (3.5-5.1); SODIUM LEVEL 146 MEQ/L (136-145); TOTAL PROTEIN 4.4 GM/DL (6.4-8.2)
[2016-10-15] MEDS: HumaLOG INSULIN (NovoLOG) PER UNIT SC SCH ×4 (07:08→21:00)
[2016-10-15] MEDS: NYSTATIN 100,000 UNITS/GM TOPICAL PWD 15 GM TOP SCH ×2 (08:02→22:05)
[2016-10-15] MEDS: LEVEMIR (INSULIN DETEMIR) 1 UNITS/0.01ML SC SCH ×2 (08:02→21:00)
[2016-10-15] MEDS: cefTRIAXone SOD 1 GM in D5W MINI-BAG PLUS 50 ML IV SCH (08:02)
[2016-10-15] MEDS: MYCOLOG CREAM 15 GM (NYSTATIN/TRIAMCINOLONE) TOP SCH (08:03)
[2016-10-15] MEDS: LACRILUBE (AKWA TEARS) OPHTH OINT 3.5 GM OU SCH ×3 (08:03→22:05)
[2016-10-15] MEDS ORDERED: POTASSIUM PHOSPHATE INJ 30 MMOL in D5W 500 ML IV ONE (09:00)
[2016-10-15 14:19] LABS: ALBUMIN/GLOBULIN RATIO 0.83 (1.00-1.93); ALKALINE PHOSPHATASE 248 U/L (45-117); ALT/SGPT 17 U/L (12-78); ANION GAP 10 MEQ/L (8-16); AST/SGOT 14 U/L (15-37); BILIRUBIN,TOTAL 0.6 MG/DL (0.2-1.0); BLOOD UREA NITROGEN 22 MG/DL (7-18); CALCIUM LEVEL 7.8 MG/DL (8.8-10.2); CARBON DIOXIDE LEVEL 19 MEQ/L (21-32); CHLORIDE LEVEL 115 MEQ/L (98-107); CREATININE FOR GFR 0.68 MG/DL (0.70-1.30); GLOMERULAR FILTRATION RATE > 60.0 (>42); GLUCOSE, FASTING 145 MG/DL (83-110); MAGNESIUM LEVEL 1.9 MG/DL (1.8-2.4); PHOSPHORUS LEVEL 3.2 MG/DL (2.5-4.9); POTASSIUM SERUM 3.8 MEQ/L (3.5-5.1); SODIUM LEVEL 144 MEQ/L (136-145); TOTAL PROTEIN 4.4 GM/DL (6.4-8.2)
--- NOTE | 2016-10-15 14:43 | IPNPDOC ---
Text Note Date of Service The patient was seen on 10/15/16. NOTE Subjective: Patient is a 71 year old male with a PMHx of COPD, PINKY, Diastolic CHF , A. fib (on Pradaxa), AV block (s/p PM), HTN, DM2, Seizure disorder, Hypothyroidism, Gout, Obesity, GERD, Retinal detachment of right / Macular degeneration of Left, Chronic venous stasis with stasis dermatitis, Tremors, CKD3, Pulmonary HTN, Hydrocele and varicocele on Left. Presented to the ER with complaints of right leg pain, warmth and redness, found to be 2/2 Cellulitis. He has completed therapy with Ceftaroline and Doxycycline. Remainder of hospital stay significant for extended waxing/waning mentation. Patient was upgraded to ICU on 10/12 PM. On the morning of 10/12, patient had abdominal pain and tenderness on physical exam and additional imaging was acquired via XR and CT abdomen. Imaging was consistent with possible fecal impaction. Manual disimpaction was performed and did not reveal any solid stools and only liquid stools were evident. He had labs drawn simultaneously, which revealed an elevation in WBC. Throughout late afternoon he had atrial fibrillation with rate of 90s and he became hypotensive. Patient was upgraded at that point and had a central line placed for aggressive IV fluid support and antibiotics. Patient seen and examined at bedside. Patient is oriented, but still having difficulty with memory. He denies any other problems. Objective: Vitals (See below) General: no acute distress, comfortable, lying in bed, Oriented x3, Slow to respond HEENT: NC, AT CVS: IrIr, +S1S2 Lungs: Poor inspiratory effort b/l, no appreciable wheezing Abdomen: Soft, Non-distended, No appreciable tenderness Extremities: Chronic venous stasis changes, 2+ pitting edema bilaterally, no calf tenderness Assessment and plan: 1. Acute metabolic encephalopathy - possibly 2/2 elevated ammonia - possibly 2/ 2 Depakote, possibly 2/2 infection / sepsis - Awake and alert; oriented x 3 - Still without any focal deficits - CT head 09/24: small vessel ischemic disease and moderate volume loss - s/p Depakote and Lactulose - s/p Risperidone 2. s/p Hypotension - likely 2/2 severe sepsis - likely 2/2 colitis, less likely 2/2 medications - Reported abdominal pain on 10/13; associated with nausea and abdominal pain this morning - Physical with abdominal distension and epigastric tenderness initially; has resolved - Significant leukocytosis and lactic acidosis; improving - GI panel and C. diff PCR 10/12: Negative; Repeat C. diff negative - Blood cultures 10/12: Negative at 24 hours - CT abdomen/pelvis 10/12: colonic distension, large volume fecal residue in rectal ampulla, possibly impaction - s/p Manual disimpaction; no evidence of solid stools - c/w Ceftriaxone IV, Flagyl IV and Vancomycin PO (Day #4) - Will hold IV fluids at this time as MAP has been >60 3. AG and NAG metabolic acidosis - likely 2/2 lactic acidosis and diarrhea - Delta/Delta still remains less than < 1 - Diarrhea has been noted to have been improving - After completing bicarbonate drip patient has had improvement - This afternoon Bicarb at 19 - Will consider restarting Bicarbonate based fluids if repeat lab work still shows acidosis - Will repeat lactic acid - Will repeat labs at 200PM 4. s/p Acute kidney injury - likely 2/2 pre-renal etiology, possibly intra- renal etiology - Patient had been oliguric; however over last 24 hours has begun to make urine - Appears to be fluid overloaded at this point; however will has not shown any respiratory distress - Will continue to observe and follow electrolytes - Will likely need to replete electrolytes as required - May consider diuretic therapy on 10/16 5. Coagulopathy - possibly 2/2 liver dysfunction - Elevated INR / PT / PTT - has been improving - No evidence of bleeding - Hold Pradaxa - Will follow INR daily 6. s/p UTI - Urine culture 10/04: Proteus mirabilis - Urine culture 10/13: Currently negative 7. s/p Hypernatremia - s/p D5W 8. s/p Paracentesis - No evidence of abdominal pain or infection - Removed <500cc of fluid for analysis - Fluid analysis in consistent with infection 9. s/p Right LE cellulitis - Redness, warmth and tenderness have resolved - Physical shows resolution or erythema / warmth / tenderness - No leukocytosis of elevation of lactic acid 10. s/p Respiratory distress - possibly 2/2 fluid overload, PINKY / OHS - requiring supplemental oxygen - CT chest 09/18: No infiltrates, effusions or masses - CXR 09/22: unchanged - c/w supplemental oxygen and continue to titrate down - c/w acapella and incentive spirometry 11. Chronic compensated diastolic CHF - ECHO 06/2016: EF 65%, moderate pulmonary HTN - appears compensated 12. PINKY - c/w CPAP at night 13. s/p Hypermagnesemia - s/p Mg supplementation 14. AV block - s/p PM 15. HTN - BP has remained stable - s/p Isosorbide dinitrate - c/w reduced dose Bisoprolol (re: A. fib) 16. DM2 - c/w ISS 17. Seizure disorder - s/p Depakote 18. Hypothyroidism - c/w Synthroid 19. Gout - c/w Allopurinol and Colchicine 20. A. fib - Rate controlled with Bisoprolol with holding parameters; reduced dose to 5mg from 10mg - s/p Pacemaker - Hold anticoagulation with Pradaxa for now 21. GERD - s/p Omeprazole - c/w Protonix IV 22. DVT prophylaxis - c/w SCDs; Pradaxa on hold VS,Fishbone, I+O VS, Fishbone, I+O Laboratory Tests 10/14/16 19:25 10/15/16 05:10 Red Blood Count 3.80 L, Mean Corpuscular Volume 95.3, Mean Corpuscular Hemoglobin 29.5, Mean Corpuscular Hemoglobin Concent 31.0 L, Red Cell Distribution Width 16.7 H, Calcium Level 7.9 L, Phosphorus Level 1.4 L, Aspartate Amino Transf (AST/SGOT) 16, Alanine Aminotransferase (ALT/SGPT) 19, Alkaline Phosphatase 235 H, Total Bilirubin 0.7, Total Protein 4.4 L, Albumin 1.9 L 10/15/16 12:45 Calcium Level 7.8 L, Phosphorus Level 3.2 #, Aspartate Amino Transf (AST/SGOT) 14 L, Alanine Aminotransferase (ALT/SGPT) 17, Alkaline Phosphatase 248 H, Total Bilirubin 0.6, Total Protein 4.4 L, Albumin 2.0 L Vital Signs Date Time Temp Pulse Resp B/P (MAP) Pulse Ox O2 Delivery O2 Flow Rate FiO2 10/15/16 12:00 97.3 56 18 100/67 (78) 96 Nasal Cannula 10/15/16 08:00 2.0 10/12/16 20:09 50 I&O- Last 24 Hours up to 6 AM 10/15/16 06:00 Intake Total 3150 ml Output Total 810 ml Balance 2340 ml JOE HDEZ MD Oct 15, 2016 14:43
[2016-10-15 20:33] LABS: ALBUMIN/GLOBULIN RATIO 0.77 (1.00-1.93); ALKALINE PHOSPHATASE 252 U/L (45-117); ALT/SGPT 18 U/L (12-78); ANION GAP 10 MEQ/L (8-16); AST/SGOT 16 U/L (15-37); BILIRUBIN,TOTAL 0.7 MG/DL (0.2-1.0); BLOOD UREA NITROGEN 22 MG/DL (7-18); CALCIUM LEVEL 7.6 MG/DL (8.8-10.2); CARBON DIOXIDE LEVEL 19 MEQ/L (21-32); CHLORIDE LEVEL 116 MEQ/L (98-107); GLOMERULAR FILTRATION RATE > 60.0 (>42); GLUCOSE, FASTING 144 MG/DL (83-110); MAGNESIUM LEVEL 1.9 MG/DL (1.8-2.4); PHOSPHORUS LEVEL 2.5 MG/DL (2.5-4.9); POTASSIUM SERUM 3.5 MEQ/L (3.5-5.1); SODIUM LEVEL 145 MEQ/L (136-145); TOTAL PROTEIN 4.6 GM/DL (6.4-8.2)
[2016-10-15] MEDS: BISOPROLOL FUMARATE 5 MG TAB PO SCH (21:00)
[2016-10-15] MEDS: ASPIRIN 81 MG ENTERIC TAB PO SCH (22:04)
[2016-10-15] MEDS: PANTOPRAZOLE 40MG INJ (PROTONIX) (C9113) IV SCH (22:04)
[2016-10-16] VITALS (10 sets, daily range): BP systolic 97–124; BP diastolic 57–80; O2SAT 99
[2016-10-16] MEDS: IPRATROPIUM 0.5MG/ALBUTEROL 2.5MG INH SOL UD 3ML (DUONEB)(J7620) NEB SCH ×4 (02:00→19:50)
[2016-10-16 04:27] LABS: MEAN CORPUSCULAR HEMOGLOBIN 30.4 pg (27.0-33.0); MEAN CORPUSCULAR HGB CONC 32.2 g/dl (32.0-36.5); MEAN CORPUSCULAR VOLUME 94.3 fl (80.0-96.0); RED CELL DISTRIBUTION WIDTH 16.7 % (11.5-14.5)
[2016-10-16 04:34] LABS: INR 1.59
[2016-10-16 04:57] LABS: ALKALINE PHOSPHATASE 261 U/L (45-117); ALT/SGPT 16 U/L (12-78); ANION GAP 9 MEQ/L (8-16); AST/SGOT 18 U/L (15-37); BILIRUBIN,TOTAL 0.8 MG/DL (0.2-1.0); BLOOD UREA NITROGEN 21 MG/DL (7-18); CALCIUM LEVEL 7.7 MG/DL (8.8-10.2); CARBON DIOXIDE LEVEL 21 MEQ/L (21-32); CHLORIDE LEVEL 117 MEQ/L (98-107); GLOMERULAR FILTRATION RATE > 60.0 (>42); GLUCOSE, FASTING 87 MG/DL (83-110); PHOSPHORUS LEVEL 2.5 MG/DL (2.5-4.9); POTASSIUM SERUM 3.7 MEQ/L (3.5-5.1); SODIUM LEVEL 147 MEQ/L (136-145); TOTAL PROTEIN 3.9 GM/DL (6.4-8.2)
[2016-10-16 04:58] LABS: ALBUMIN/GLOBULIN RATIO 1.05 (1.00-1.93); MAGNESIUM LEVEL 1.8 MG/DL (1.8-2.4)
[2016-10-16] MEDS ORDERED: MAGNESIUM CHLORIDE 64 MG TABCR (SLO MAG) PO ONE (05:45)
[2016-10-16] MEDS: LEVOTHYROXINE 75MCG TABLET (0.075MG) PO SCH (05:57)
[2016-10-16] MEDS: metroNIDAZOLE 500 MG in APPROPRIATE DILUENT 1 EA IV SCH (05:57)
[2016-10-16] MEDS: VANCOMYCIN ORAL SOL 250MG/5ML ORAL SYRINGE PO SCH ×4 (05:57→23:50)
[2016-10-16] MEDS: LEVOTHYROXINE 100MCG TABLET (0.1MG) PO SCH (05:57)
[2016-10-16] MEDS: HumaLOG INSULIN (NovoLOG) PER UNIT SC SCH ×4 (07:30→20:14)
[2016-10-16] MEDS: cefTRIAXone SOD 1 GM in D5W MINI-BAG PLUS 50 ML IV SCH (08:22)
[2016-10-16] MEDS: NYSTATIN 100,000 UNITS/GM TOPICAL PWD 15 GM TOP SCH ×2 (08:26→20:45)
[2016-10-16] MEDS: LACRILUBE (AKWA TEARS) OPHTH OINT 3.5 GM OU SCH ×3 (08:27→20:45)
[2016-10-16] MEDS ORDERED: NS 0.45% 1,000 ML IV SCH (12:00)
[2016-10-16] MEDS ORDERED: D5W/0.45% SODIUM CHLORIDE 1,000 ML IV SCH (13:15)
--- NOTE | 2016-10-16 14:27 | REP ---
Bilateral lower extremity Duplex Doppler venous ultrasound: Real time compression and duplex Doppler interrogation of the bilateral lower extremity deep venous system is performed. Bilaterally, the common femoral, superficial femoral and popliteal veins are fully compressible with transducer pressure and demonstrate normal spontaneous and phasic flow, without evidence of deep venous thrombosis. Impression: No evidence of deep venous thrombosis of the bilateral lower extremity femoral popliteal venous system. Signed by Jason Andino MD 10/16/2016 02:18 P
[2016-10-16] MEDS: metroNIDAZOLE (FLAGYL) 500 MG TAB PO SCH ×2 (15:33→22:02)
[2016-10-16] MEDS ORDERED: FUROSEMIDE 20 MG/2 ML VIAL (J1940) IV ONE (16:15)
[2016-10-16] MEDS ORDERED: FUROSEMIDE 40 MG/4 ML VIAL (J1940) IV ONE (19:00)
[2016-10-16] MEDS: PANTOPRAZOLE 40MG INJ (PROTONIX) (C9113) IV SCH (20:46)
[2016-10-16] MEDS: LEVEMIR (INSULIN DETEMIR) 1 UNITS/0.01ML SC SCH (20:46)
[2016-10-16] MEDS: ASPIRIN 81 MG ENTERIC TAB PO SCH (20:46)
--- NOTE | 2016-10-16 21:56 | IPN ---
DATE: 10/16/2016 The patient is seen and examined at bedside. Chart has been reviewed. The patient continues to have watery bowel movements, five yesterday and two this morning. Denies any abdominal pain, distention, nausea or vomiting. The patient's blood pressure has been low and his Zebeta has been help yesterday. Systolic pressure ranges between 97 to 112 systolic. He denies any dizziness, lightheadedness. No chest pain, pressure, tightness or shortness of breath. White count has been normal. He has been afebrile. No issues on telemetry, per nursing. PHYSICAL EXAMINATION: VITAL SIGNS: Temperature is 97.1, pulse 60, respiratory rate 24, blood pressure 97/57, 96% on 1 to 2 liters nasal cannula. GENERAL: The patient is awake, alert, oriented to person, place and time. Answers questions appropriately. He has a central line in the right internal jugular area with no erythema, no tenderness, no swelling. VITAL SIGNS: Temperature 97.1, pulse 60, respiratory rate 24, blood pressure 97/57, 96% on 1 liter to 2 liters nasal cannula. LUNGS: Diminished. No jugular venous distention (JVD). No thyromegaly. HEART: S1, S2. Sinus rhythm. ABDOMEN: Obese. Soft, nontender, nondistended. Positive bowel sounds. EXTREMITIES: 2+ pitting edema bilaterally. No calf tenderness. LABORATORY DATA: White count 6, hemoglobin 11, hematocrit 34, platelet count of 146 with platelet count of 287 on 10/05/2016. Sodium 147, potassium 3.7, chloride 117, bicarbonate 21, BUN 21, creatinine 0.6, glucose of 87. MICROBIOLOGY: Clostridium (C) difficile negative times three. GI panel on 10/12/[address] of the abdomen and pelvis showed abdominal ascites, colonic distention with large volume of fecal residue, possibly an impaction, splenomegaly, basilar lower lobe lung infiltrate. ASSESSMENT AND PLAN: This is a 71-year-old male with a history of cellulitis, acute encephalopathy secondary to Depakote causing elevated ammonia levels, developed severe diarrhea with hypotension, leukocytosis, tachycardia and treated with IV fluids and found to have bibasilar infiltrates and anion gap acidosis secondary to diarrhea. The patient has a prior history of atrial fibrillation and on chronic Pradaxa, congestive heart failure (CHF), diastolic dysfunction, obstructive sleep apnea, chronic obstructive pulmonary disease (COPD), AV block with pacer and history of seizure disorder, currently with the following issues: 1. Acute metabolic encephalopathy secondary to elevated ammonia level from Depakote, infection and sepsis. Currently awake, alert and oriented times three, answering questions appropriately, significantly improved. Risperidone, Depakote and Lactulose have all been discontinued. CT of the head shows small vessel ischemic disease and moderate volume loss. Still without any focal deficits. 2. Hypertension due to severe sepsis and leukocytosis. No vasopressor required. Most likely secondary to hypovolemia from severe hypotension. CT of the abdomen and pelvis showed colonic distention, large volume of fecal residue, possibly impaction, status post manual disimpaction. No evidence of solid stools. Still on IV ceftriaxone, IV Flagyl, and oral vancomycin. The patient's Zebeta has been held. At this time, due to hypernatremia and dehydration, we will restart back on half normal saline. 3. Anion gap metabolic acidosis, most likely secondary to lactic acidosis and diarrhea. Diarrhea has improved. 4. Acute kidney injury, prerenal, most likely due to severe diarrhea and volume loss. The patient's creatinine is currently normal. Coagulopathy secondary liver dysfunction with elevated PT/INR, which is improving. Currently holding the patient's Pradaxa. 5. Status post urinary tract infection (UTI) with proteus. Has been fully treated with IV antibiotics. 6. Hypernatremia due to dehydration from volume loss secondary to diarrhea. We will restart half normal saline. Tolerating his diet well. 7. History of right lower extremity cellulitis, resolved. 8. Chronic lower extremity edema. Check venous ultrasound to rule out deep vein thrombosis (DVT). 9. Compensated diastolic congestive heart failure (CHF), ejection fraction of 65% with moderate pulmonary hypertension, appears to be compensated. 10. Obstructive sleep apnea on CPAP at night. 11. AV block with pacer. 12. Hypertension. Remains low. We have discontinued isosorbide and bisoprolol for now. 13. Type 2 diabetes. On insulin sliding scale. 14. History of seizure disorder. Off Depakote due to elevated ammonia level. 15. Hypothyroidism. On Synthroid. 16. Gout. On allopurinol and colchicine. 17. Atrial fibrillation. We have discontinued the patient's bisoprolol due to low blood pressure. The patient's pressure is improving slightly for rate control. He may need Digoxin if the patient becomes uncontrolled. 18. Thrombocytopenia. Monitor platelet count for now. Check for heparin induced thrombocytopenia (HIT) antibodies.
[2016-10-17] VITALS (8 sets, daily range): BP systolic 98–121; BP diastolic 58–87; O2SAT 97
[2016-10-17] MEDS: IPRATROPIUM 0.5MG/ALBUTEROL 2.5MG INH SOL UD 3ML (DUONEB)(J7620) NEB SCH ×4 (04:26→20:16)
[2016-10-17 05:15] LABS: MEAN CORPUSCULAR HEMOGLOBIN 30.3 pg (27.0-33.0); MEAN CORPUSCULAR HGB CONC 32.1 g/dl (32.0-36.5); MEAN CORPUSCULAR VOLUME 94.3 fl (80.0-96.0); RED CELL DISTRIBUTION WIDTH 16.7 % (11.5-14.5); WHITE BLOOD COUNT 6.4 K/mm3 (4.0-10.0)
[2016-10-17 05:16] LABS: ALBUMIN 2.1 GM/DL (3.2-5.2); ALBUMIN/GLOBULIN RATIO 1.05 (1.00-1.93); ALKALINE PHOSPHATASE 269 U/L (45-117); ALT/SGPT 14 U/L (12-78); ANION GAP 10 MEQ/L (8-16); AST/SGOT 19 U/L (15-37); BILIRUBIN,TOTAL 0.7 MG/DL (0.2-1.0); BLOOD UREA NITROGEN 19 MG/DL (7-18); CALCIUM LEVEL 7.9 MG/DL (8.8-10.2); CARBON DIOXIDE LEVEL 21 MEQ/L (21-32); CHLORIDE LEVEL 115 MEQ/L (98-107); CREATININE FOR GFR 0.69 MG/DL (0.70-1.30); GLOMERULAR FILTRATION RATE > 60.0 (>42); GLUCOSE, FASTING 126 MG/DL (83-110); MAGNESIUM LEVEL 1.7 MG/DL (1.8-2.4); PHOSPHORUS LEVEL 2.8 MG/DL (2.5-4.9); POTASSIUM SERUM 3.4 MEQ/L (3.5-5.1); SODIUM LEVEL 146 MEQ/L (136-145); TOTAL PROTEIN 4.1 GM/DL (6.4-8.2)
[2016-10-17 05:28] LABS: INR 1.57
[2016-10-17] MEDS: LEVOTHYROXINE 75MCG TABLET (0.075MG) PO SCH (06:16)
[2016-10-17] MEDS: metroNIDAZOLE (FLAGYL) 500 MG TAB PO SCH ×2 (06:16→13:48)
[2016-10-17] MEDS: LEVOTHYROXINE 100MCG TABLET (0.1MG) PO SCH (06:16)
[2016-10-17] MEDS: VANCOMYCIN ORAL SOL 250MG/5ML ORAL SYRINGE PO SCH ×3 (06:22→18:21)
[2016-10-17] MEDS: HumaLOG INSULIN (NovoLOG) PER UNIT SC SCH ×4 (07:30→21:00)
[2016-10-17] MEDS: LACRILUBE (AKWA TEARS) OPHTH OINT 3.5 GM OU SCH ×3 (09:27→21:24)
[2016-10-17] MEDS: cefTRIAXone SOD 1 GM in D5W MINI-BAG PLUS 50 ML IV SCH (09:27)
[2016-10-17] MEDS: NYSTATIN 100,000 UNITS/GM TOPICAL PWD 15 GM TOP SCH ×2 (09:28→21:00)
--- NOTE | 2016-10-17 11:41 | REP ---
CT Head without contrast HISTORY: [facility] COMPARISON: 09/24/2016 Areas of decreased attenuation are present in the periventricular and subcortical white matter. This represents small-vessel ischemic disease. There is no intraparenchymal hemorrhage, acute infarct, mass or midline shift. The ventricular system and cortical sulci are dilated consistent with moderate volume loss. There is no extra cerebral collection. There is no fracture. Mucosal thickening is present in the right sphenoid sinus. IMPRESSION: 1. Small vessel ischemic disease. 2. Moderate volume loss. Signed by Brayden Anderson MD 10/17/2016 11:33 A
[2016-10-17] MEDS: DABIGATRAN ETEXILATE 75 MG CAP (PRADAXA) PO SCH ×2 (11:56→21:25)
[2016-10-17] MEDS ORDERED: POTASSIUM CHLORIDE 10 MEQ SR TABLET PO ONE (12:00)
[2016-10-17] MEDS: PANTOPRAZOLE 40MG INJ (PROTONIX) (C9113) IV SCH (21:23)
[2016-10-17] MEDS: LEVEMIR (INSULIN DETEMIR) 1 UNITS/0.01ML SC SCH (21:24)
[2016-10-17] MEDS: ASPIRIN 81 MG ENTERIC TAB PO SCH (21:25)
[2016-10-18] MEDS: VANCOMYCIN ORAL SOL 250MG/5ML ORAL SYRINGE PO SCH ×4 (00:06→17:52)
[2016-10-18] MEDS: IPRATROPIUM 0.5MG/ALBUTEROL 2.5MG INH SOL UD 3ML (DUONEB)(J7620) NEB SCH ×4 (01:14→22:09)
[2016-10-18 02:00] VITALS: BP 111/61
[2016-10-18] MEDS: LEVOTHYROXINE 75MCG TABLET (0.075MG) PO SCH (05:57)
[2016-10-18] MEDS: LEVOTHYROXINE 100MCG TABLET (0.1MG) PO SCH (05:57)
[2016-10-18 06:00] VITALS: BP 125/74
--- NOTE | 2016-10-18 06:09 | IPN ---
DATE: 10/17/2016 SUBJECTIVE: The patient is seen and examined at the bedside. Chart has been reviewed. The patient's blood pressure has been well maintained between 98 systolic to 124 systolic. He was diuresed well yesterday after intravenous Lasix with 1.6 liters out. Negative 632. At this time, the patient's pupils were found to be unequal. CT head is pending. Otherwise, the patient has no other neurological deficits. He has decreasing shortness of breath. No cough, no fever, nausea or vomiting. No dizziness or lightheadedness. OBJECTIVE: VITAL SIGNS: Temperature 96.7, pulse 64, respiratory rate 25, blood pressure 102/60, 98% on one liter nasal cannula. GENERAL: The patient is awake, alert, and oriented to person and place. Answers questions appropriately. LUNGS: Diminished of fine crackles. HEART: S1, S2. Sinus rhythm. ABDOMEN: Soft, nontender, nondistended. Positive bowel sounds. EXTREMITIES: Positive pitting edema. LABORATORY DATA: Has been reviewed. ASSESSMENT AND PLAN: This is a 71-year-old male with a history of cellulitis, acute encephalopathy secondary to Depakote causing elevated ammonia levels as well as severe diarrhea with hypotension, leukocytosis, tachycardia, treated with intravenous (IV) fluids, found to have bibasilar infiltrates and anion gap acidosis secondary to diarrhea. The patient has a prior history of atrial fibrillation on chronic Pradaxa, congestive heart failure (CHF), diastolic dysfunction, obstructive sleep apnea, chronic obstructive pulmonary disease (COPD), arteriovenous (AV) block with pacer, and history of seizure disorder, currently with the following issues: 1. Acute metabolic encephalopathy found to be secondary to elevated ammonia levels from the Depakote, infection, and sepsis. Currently awake, alert, and oriented times three, answering questions appropriately; however, with unequal pupils today. CT of the head to be repeated today. Risperidone, Depakote and lactulose have all been discontinued. 2. Hypotension due to severe sepsis and leukocytosis. No vasopressor required, due to hypovolemia from severe hypotension and diarrhea. CT of the abdomen and pelvis showed colonic distention, large volume of fecal residue secondary to impaction, status post manual disimpaction. No evidence of solid stools. Still on IV ceftriaxone, oral Flagyl, and oral vancomycin. Clostridium (C.) difficile has been negative times three. Zebeta has been held due to low blood pressure, hypernatremia and dehydration. 3. Anion gap metabolic acidosis, most likely secondary to lactic acidosis and diarrhea. Persistent diarrhea but has slightly improved. 4. Acute kidney injury, prerenal, most likely secondary to severe diarrhea and volume loss. The patient's creatinine is currently normal. 5. Coagulopathy secondary liver dysfunction with elevated PT/INR, which is improving. Currently holding the patient's Pradaxa. 6. Status post urinary tract infection (UTI) with proteus. Has been fully treated with IV antibiotics. 7. Hypernatremia due to dehydration from volume loss secondary to diarrhea. We will start half normal saline. Tolerating his diet well. 8. History of right lower extremity cellulitis, resolved. 9. Chronic lower extremity edema. Venous Dopplers to rule out deep vein thrombosis (DVT) were negative. 10. Arteriovenous (AV) block with pacer. 11. Obstructive sleep apnea on continuous positive airway pressure (CPAP) at night. 12. Compensated congestive heart failure (CHF), currently ejection fraction (EF) of 65%, moderate pulmonary hypertension. 13. Hypertension, currently low. 14. Type 2 diabetes, on sliding scale. 15. History of seizure disorder. Off Depakote due to elevated ammonia level. 16. Hypothyroidism, on Synthroid. 17. Gout, on allopurinol and colchicine. 18. Atrial fibrillation (A-Fib). This patient's anticoagulation will be resumed. Due to unequal pupils, will send for CT of the head to rule out cerebrovascular accident (CVA). 19. Thrombocytopenia. Monitor platelets for now.
[2016-10-18] MEDS: HumaLOG INSULIN (NovoLOG) PER UNIT SC SCH ×4 (07:30→20:47)
[2016-10-18 08:02] LABS: MEAN CORPUSCULAR HEMOGLOBIN 29.9 pg (27.0-33.0); MEAN CORPUSCULAR VOLUME 93.4 fl (80.0-96.0); WHITE BLOOD COUNT 6.6 K/mm3 (4.0-10.0)
[2016-10-18 08:28] LABS: ALBUMIN 2.3 GM/DL (3.2-5.2); ALBUMIN/GLOBULIN RATIO 1.28 (1.00-1.93); ALKALINE PHOSPHATASE 293 U/L (45-117); ALT/SGPT 18 U/L (12-78); ANION GAP 11 MEQ/L (8-16); AST/SGOT 18 U/L (15-37); BILIRUBIN,TOTAL 0.7 MG/DL (0.2-1.0); BLOOD UREA NITROGEN 18 MG/DL (7-18); CALCIUM LEVEL 7.9 MG/DL (8.8-10.2); CARBON DIOXIDE LEVEL 20 MEQ/L (21-32); CHLORIDE LEVEL 116 MEQ/L (98-107); CREATININE FOR GFR 0.57 MG/DL (0.70-1.30); GLOMERULAR FILTRATION RATE > 60.0 (>42); GLUCOSE, FASTING 100 MG/DL (83-110); PHOSPHORUS LEVEL 2.6 MG/DL (2.5-4.9); POTASSIUM SERUM 3.2 MEQ/L (3.5-5.1); SODIUM LEVEL 147 MEQ/L (136-145); TOTAL PROTEIN 4.1 GM/DL (6.4-8.2)
[2016-10-18] MEDS ORDERED: POTASSIUM CHLORIDE 10 MEQ SR TABLET PO ONE (08:45)
[2016-10-18 09:00] LABS: INR 1.52
[2016-10-18 09:04] LABS: MAGNESIUM LEVEL 1.9 MG/DL (1.8-2.4)
[2016-10-18] MEDS: DABIGATRAN ETEXILATE 75 MG CAP (PRADAXA) PO SCH ×2 (09:52→20:47)
[2016-10-18] MEDS: cefTRIAXone SOD 1 GM in D5W MINI-BAG PLUS 50 ML IV SCH (09:53)
[2016-10-18] MEDS: LACRILUBE (AKWA TEARS) OPHTH OINT 3.5 GM OU SCH ×3 (09:53→20:48)
[2016-10-18] MEDS: NYSTATIN 100,000 UNITS/GM TOPICAL PWD 15 GM TOP SCH ×2 (09:53→20:48)
[2016-10-18 10:00] VITALS: BP 123/73
[2016-10-18 14:00] VITALS: BP 124/76
[2016-10-18 18:00] VITALS: BP 123/85
[2016-10-18] MEDS: PANTOPRAZOLE 40MG INJ (PROTONIX) (C9113) IV SCH (20:47)
[2016-10-18] MEDS: LEVEMIR (INSULIN DETEMIR) 1 UNITS/0.01ML SC SCH (20:47)
[2016-10-18] MEDS: ASPIRIN 81 MG ENTERIC TAB PO SCH (20:47)
[2016-10-18 22:00] VITALS: BP 105/74
--- NOTE | 2016-10-18 23:13 | IPN ---
DATE: 10/18/2016 The patient seen and examined at the bedside. Chart has been reviewed. The patient has no new complaints today. He is awake, alert, encouraged to ambulate better. He has diuresed a liter out. Has been net negative for the past two days. Current weight is 138.2 kg. He denies any chest pain, pressure or tightness, shortness of breath, nausea or vomiting. The patient has had no diarrhea yesterday. One loose bowel movement this morning. Tolerating his diet well. VITAL SIGNS: Temperature 97.5, pulse 60, respiratory rate 20, blood pressure 123/73, 91% on room air. GENERAL: Awake, alert, oriented times three. Answers questions appropriately. LUNGS: Diminished but clear to auscultation. HEART: S1, S2. Sinus rhythm. ABDOMEN: Soft, nontender, nondistended. Positive bowel sounds. EXTREMITIES: Positive pitting edema. Decreased from yesterday. IMAGING STUDIES: CT of head is negative. LABORATORY DATA: White count 6.6, hemoglobin 11, hematocrit 36, platelet count 196, sodium 147, potassium 3.2, chloride 116, bicarbonate 20, BUN 18, creatinine 0.57, glucose of 100. ASSESSMENT AND PLAN: 71-year-old male with history of cellulitis, acute encephalopathy, secondary to Depakote causing elevated ammonia level, encephalopathy, diarrhea, hypertension, leukocytosis, tachycardia treated with IV fluids, found to have bibasilar infiltrates with anion gap, acidosis secondary to diarrhea. The patient has prior history of atrial fibrillation on chronic Pradaxa, CHF, diastolic dysfunction, obstructive sleep apnea, chronic obstructive pulmonary disease (COPD), atrioventricular (AV) block and history of seizure disorder, currently with the following issues: 1. Acute metabolic encephalopathy secondary to elevated ammonia from Depakote, infection with sepsis, currently awake, alert, oriented. Answering questions appropriately, however, with unequal pupils, evaluated with CT of head repeated yesterday which were negative. Risperidone and Depakote and lactulose have all been discontinued. 2. Hypotension due to severe sepsis, leukocytosis with colitis. No vasopressor was required. The patient has had diarrhea which is negative from GI panel. The patient is continued all vancomycin. IV Flagyl has been discontinued. He has clinically improved diarrhea. 3. Anion gap, metabolic acidosis secondary to lactic acidosis and diarrhea. Improving. 4. Acute kidney injury, prerenal due to severe diarrhea and volume loss. Creatinine is currently normal. Coagulopathy secondary to liver disease with elevated PT/INR which is improving. Currently resume patient's Pradaxa. Monitor for any bleeding. Status post UTI with proteus. Will be treated with IV antibiotics. 5. Hypernatremia due to dehydration and volume loss from diarrhea. Appears to be stable. 6. AV block with pacer. 7. Obstructive sleep apnea on CPAP at night. 8. Congestive heart failure. Ejection fraction (EF) of 65%. Moderate pulmonary hypertension. 9. Hypertension. Currently improved off the Zebeta. 10. Atrial fibrillation. Currently resumed on anticoagulation. His Zebeta was discontinued due to persistently low blood pressure. Heart rate appears to be doing well with ventricular rate of 53 to 60. DISPOSITION: Physical therapy (PT)/occupational therapy (OT), await completion of antibiotics.
[2016-10-19 02:00] VITALS: BP 109/69
[2016-10-19] MEDS: IPRATROPIUM 0.5MG/ALBUTEROL 2.5MG INH SOL UD 3ML (DUONEB)(J7620) NEB SCH ×4 (02:00→20:57)
[2016-10-19] MEDS: VANCOMYCIN ORAL SOL 250MG/5ML ORAL SYRINGE PO SCH ×5 (02:06→18:11)
[2016-10-19] MEDS: LEVOTHYROXINE 100MCG TABLET (0.1MG) PO SCH (05:14)
[2016-10-19] MEDS: LEVOTHYROXINE 75MCG TABLET (0.075MG) PO SCH (05:14)
[2016-10-19 05:29] LABS: MEAN CORPUSCULAR HEMOGLOBIN 29.8 pg (27.0-33.0); MEAN CORPUSCULAR HGB CONC 31.7 g/dl (32.0-36.5); MEAN CORPUSCULAR VOLUME 94.1 fl (80.0-96.0); RED CELL DISTRIBUTION WIDTH 17.2 % (11.5-14.5); WHITE BLOOD COUNT 6.9 K/mm3 (4.0-10.0)
[2016-10-19 05:41] LABS: INR 1.73
[2016-10-19 06:00] VITALS: BP 109/71
[2016-10-19 06:12] LABS: ALBUMIN 2.3 GM/DL (3.2-5.2); ALBUMIN/GLOBULIN RATIO 1.15 (1.00-1.93); ALKALINE PHOSPHATASE 285 U/L (45-117); ALT/SGPT 15 U/L (12-78); ANION GAP 11 MEQ/L (8-16); AST/SGOT 17 U/L (15-37); BILIRUBIN,TOTAL 0.6 MG/DL (0.2-1.0); BLOOD UREA NITROGEN 19 MG/DL (7-18); CALCIUM LEVEL 7.8 MG/DL (8.8-10.2); CARBON DIOXIDE LEVEL 21 MEQ/L (21-32); CHLORIDE LEVEL 115 MEQ/L (98-107); CREATININE FOR GFR 0.66 MG/DL (0.70-1.30); GLOMERULAR FILTRATION RATE > 60.0 (>42); GLUCOSE, FASTING 122 MG/DL (83-110); PHOSPHORUS LEVEL 2.8 MG/DL (2.5-4.9); POTASSIUM SERUM 3.5 MEQ/L (3.5-5.1); SODIUM LEVEL 147 MEQ/L (136-145); TOTAL PROTEIN 4.3 GM/DL (6.4-8.2)
[2016-10-19] MEDS: DABIGATRAN ETEXILATE 75 MG CAP (PRADAXA) PO SCH ×2 (08:19→20:31)
[2016-10-19] MEDS: cefTRIAXone SOD 1 GM in D5W MINI-BAG PLUS 50 ML IV SCH (08:20)
[2016-10-19] MEDS: LACRILUBE (AKWA TEARS) OPHTH OINT 3.5 GM OU SCH ×3 (08:20→20:32)
[2016-10-19] MEDS: NYSTATIN 100,000 UNITS/GM TOPICAL PWD 15 GM TOP SCH ×2 (08:20→20:31)
[2016-10-19] MEDS: HumaLOG INSULIN (NovoLOG) PER UNIT SC SCH ×4 (08:20→20:13)
[2016-10-19 10:00] VITALS: BP 134/83
[2016-10-19 14:00] VITALS: BP 123/74
[2016-10-19 18:00] VITALS: BP 107/66
--- NOTE | 2016-10-19 19:40 | IPN ---
DATE: 10/19/2016 The patient seen and examined at the bedside. Chart has been reviewed. The patient denies any chest pain, pressure, tightness, shortness of breath, palpitations, lightheadedness, nausea, or vomiting. Tolerating his diet well. Diarrhea has improved. Had two bowel movements yesterday, formed with some liquid. He is afebrile with no chills. Temperature 98, pulse 60, respiratory rate 18, blood pressure 109/69, 92% on room air. Temp has no new complaints today. He is awake, alert, encouraged to ambulate better. He has diuresed a liter out. Has been net negative for the past two days. Current weight is 138.2 kg. He denies any chest pain, pressure or tightness, shortness of breath, nausea or vomiting. The patient has had no diarrhea yesterday. One loose bowel movement this morning. Tolerating his diet well. VITAL SIGNS: Temperature 98, pulse 60, respiratory rate 18, blood pressure 109/69, 92% on room air. GENERAL: Awake, alert, oriented times three. Answers questions appropriately. HEENT: Pupils round and reactive. Extraocular muscles are intact. Normocephalic atraumatic. No jugular venous distention, thyromegaly, cervical lymphadenopathy, moist mucous membranes . LUNGS: Diminished but clear to auscultation with no rales. HEART: S1, S2. Regular rate and rhythm and rhythm. Sinus rhythm. ABDOMEN: Obese, soft, nontender, nondistended. EXTREMITIES: Decreased edema. LABORATORY DATA: 10/19 CBC metabolic panel have been reviewed. ASSESSMENT AND PLAN: 71-year-old male with history of cellulitis, acute encephalopathy, secondary to Depakote causing elevated ammonia level, diarrhea, hypertension, leukocytosis, tachycardia treated with IV fluids, found to have bibasilar infiltrates with anion gap, acidosis secondary to diarrhea. The patient is treated for possible pneumonia and has prior history of atrial fibrillation on chronic Pradaxa, CHF, diastolic dysfunction, obstructive sleep apnea, chronic obstructive pulmonary disease (COPD), atrioventricular (AV) block and history of seizure disorder, currently with the following issues: 1. Acute metabolic encephalopathy secondary to elevated ammonia levels from Depakote, infection with sepsis, treated with IV ceftriaxone with pneumonia as well as diarrhea secondary to colitis. Currently awake, alert, oriented. Answering questions appropriately but at times pleasantly confused with acute delirium. Patient had equal pupils and was evaluated with CT head and that was repeated which was negative. Risperidone and Depakote and lactulose have all been discontinued. 2. Colitis. Patient was transferred to ICU during this admission. No pressure was required. Responded well to IV fluids. Diarrhea was negative times two by GI panel for c-dif. He was started on IV Flagyl and oral vancomycin. Currently now just on oral vancomycin. 3. Pneumonia with bilateral lower lobe infiltrates treated with IV Ceftriaxone, completing a 7 day full course. White count is normal. No fevers. Appreciate Dr. Best management while in ICU. Currently stable. 4. Anion gap, metabolic acidosis secondary to lactic acidosis and diarrhea. Resolved. 5. Acute kidney injury, prerenal due to severe diarrhea and volume loss. Creatinine is currently normal. Coagulopathy. 6. Atrial fibrillation. Current rate controlled despite discontinuation of beta blockers secondary to low blood pressure. Patient is back on Pradaxa for anticoagulation for atrial fibrillation. 7. Chronic lower extremity edema. Vascular ultrasound on 10/16/2016 of bilateral lower extremities are negative for deep venous thrombosis (DVT) back pn Pradaxa for atrial fibrillation for CVA prophylaxis. 8. History of lower extremity cellulitis, resolved. Completed a full course of antibiotics. 9. Hypertension. Keep him off Zebeta for now due to low blood pressure in the 90s. DISPOSITION: Physical therapy (PT)/occupational therapy (OT).
[2016-10-19] MEDS: PANTOPRAZOLE 40MG INJ (PROTONIX) (C9113) IV SCH (20:30)
[2016-10-19] MEDS: ASPIRIN 81 MG ENTERIC TAB PO SCH (20:31)
[2016-10-19] MEDS: LEVEMIR (INSULIN DETEMIR) 1 UNITS/0.01ML SC SCH (21:21)
[2016-10-19 22:00] VITALS: BP 118/76
[2016-10-20] MEDS: VANCOMYCIN ORAL SOL 250MG/5ML ORAL SYRINGE PO SCH ×5 (00:14→23:56)
[2016-10-20 02:00] VITALS: BP 115/66
[2016-10-20] MEDS: IPRATROPIUM 0.5MG/ALBUTEROL 2.5MG INH SOL UD 3ML (DUONEB)(J7620) NEB SCH ×4 (02:00→19:49)
[2016-10-20 05:29] LABS: MEAN CORPUSCULAR HEMOGLOBIN 29.7 pg (27.0-33.0); MEAN CORPUSCULAR HGB CONC 31.5 g/dl (32.0-36.5); MEAN CORPUSCULAR VOLUME 94.3 fl (80.0-96.0); RED CELL DISTRIBUTION WIDTH 17.1 % (11.5-14.5)
[2016-10-20] MEDS: LEVOTHYROXINE 100MCG TABLET (0.1MG) PO SCH (05:34)
[2016-10-20] MEDS: LEVOTHYROXINE 75MCG TABLET (0.075MG) PO SCH (05:34)
[2016-10-20 05:52] LABS: ALBUMIN 2.3 GM/DL (3.2-5.2); ALBUMIN/GLOBULIN RATIO 0.96 (1.00-1.93); ALKALINE PHOSPHATASE 292 U/L (45-117); ALT/SGPT 16 U/L (12-78); ANION GAP 8 MEQ/L (8-16); AST/SGOT 21 U/L (15-37); BILIRUBIN,TOTAL 0.7 MG/DL (0.2-1.0); BLOOD UREA NITROGEN 20 MG/DL (7-18); CALCIUM LEVEL 8.2 MG/DL (8.8-10.2); CARBON DIOXIDE LEVEL 23 MEQ/L (21-32); CHLORIDE LEVEL 115 MEQ/L (98-107); CREATININE FOR GFR 0.64 MG/DL (0.70-1.30); GLOMERULAR FILTRATION RATE > 60.0 (>42); GLUCOSE, FASTING 100 MG/DL (83-110); POTASSIUM SERUM 3.4 MEQ/L (3.5-5.1); SODIUM LEVEL 146 MEQ/L (136-145); TOTAL PROTEIN 4.7 GM/DL (6.4-8.2)
[2016-10-20 06:00] VITALS: BP 122/66
[2016-10-20] MEDS ORDERED: POTASSIUM CHLORIDE 10 MEQ SR TABLET PO ONE (06:30)
[2016-10-20] MEDS: HumaLOG INSULIN (NovoLOG) PER UNIT SC SCH ×4 (07:30→20:02)
--- NOTE | 2016-10-20 08:09 | REP ---
Chest one-view HISTORY: Line placement Comparison: 10/12/2016 Patchy density is present in the right lower lobe consistent with atelectasis or infiltrate. The left lung is clear. The cardiac silhouette is enlarged. The pulmonary vasculature is normal in appearance. A cardiac pacemaker is present. A central line is present in the superior vena cava. Impression: 1. The right lower lobe atelectasis or infiltrate. 2. Cardiomegaly. Signed by Brayden Anderson MD 10/20/2016 08:01 A
[2016-10-20] MEDS: DABIGATRAN ETEXILATE 75 MG CAP (PRADAXA) PO SCH ×2 (08:48→20:10)
[2016-10-20] MEDS: NYSTATIN 100,000 UNITS/GM TOPICAL PWD 15 GM TOP SCH ×2 (08:48→20:11)
[2016-10-20] MEDS: LACRILUBE (AKWA TEARS) OPHTH OINT 3.5 GM OU SCH ×3 (08:49→20:11)
[2016-10-20 10:00] VITALS: BP 120/75
[2016-10-20 14:00] VITALS: BP 119/88
--- NOTE | 2016-10-20 19:48 | IPN ---
DATE: 10/20/2016 Patient seen and examined at the bedside. Chart has been reviewed. Patient has no complaints this morning. No chest pain, pressure, tightness, shortness of breath, palpitations. Doing well. Suture for central line had come out. Chest x-ray showed patchy density, cardiac pacemaker, central line in superior vena cava. VITAL SIGNS: Temperature 97.5, pulse 60, respiratory rate 18, blood pressure 122/66, 92% on room air. GENERAL: Awake, alert, oriented times three. Answers questions appropriately. No respiratory distress, cyanosis. HEENT: Pupils round and reactive. Extraocular muscles are intact. Normocephalic atraumatic. No jugular venous distention, thyromegaly or cervical lymphadenopathy. Moist mucous membranes . LUNGS: Diminished, but clear. No rales. HEART: S1, S2. Regular rate and rhythm. ABDOMEN: Soft, nontender, nondistended. Positive bowel sounds in all four quadrants. EXTREMITIES: No decreasing edema. INTAKE AND OUTPUT (I AND O): Two bowel movements yesterday. Weight was down 138.9 yesterday, and 139.2 today. ASSESSMENT AND PLAN: This is a 71-year-old male with history of cellulitis, acute encephalopathy secondary to Depakote causing elevated ammonia levels, diarrhea, hypertension, leukocytosis, tachycardia, treated with intravenous (IV) fluids, found to have bibasilar infiltrates with anion gap acidosis secondary to diarrhea. Patient has prior history of atrial fibrillation on chronic Pradaxa, congestive heart failure (CHF), diastolic dysfunction, obstructive sleep apnea (PINKY), chronic obstructive pulmonary disease (COPD), atrioventricular (AV) block, history of seizure disorder currently with the following issues: 1. Acute metabolic encephalopathy secondary to elevated ammonia levels from Depakote, infection with sepsis. Currently awake, alert, oriented. Answering questions appropriately. CT of the head repeated due to unequal pupils was negative. Risperidone, Depakote and lactulose have all been discontinued. His confusion is intermittent and currently stable. 2. Hypotension due to severe sepsis. Resolved. No vasopressor was required. He was in the intensive care unit (ICU) due to pneumonia, given IV ceftriaxone with resolution. 3. Diarrhea. Resolved. Now with two bowel movements daily with oral vancomycin. Flagyl has been discontinued. 4. Acute kidney injury. Prerenal due to diarrhea and volume loss. Creatinine normal. Abnormal liver function tests due to hypotension. 5. History of diastolic heart failure. Resume low-dose Lasix. 6. Chronic lower extremity edema. Vascular ultrasound of lower extremities negative. Back on Pradaxa. 7. History of lower extremity cellulitis. Completed a full course of antibiotics. 9. Pneumonia. Completed a seven day course of IV ceftriaxone. 10. Obstructive sleep apnea. On home continuous positive airway pressure (CPAP ) on home settings. 11. Atrioventricular (AV) block. On pacer. 12. History of seizure disorder. With elevated ammonia level previously. No acute issues. 13. Electrolyte abnormalities with low potassium. Supplemented. 14. Hypernatremia. Monitored. No acute confusion. MTDD
[2016-10-20] MEDS: PANTOPRAZOLE 40MG INJ (PROTONIX) (C9113) IV SCH (20:10)
[2016-10-20] MEDS: LEVEMIR (INSULIN DETEMIR) 1 UNITS/0.01ML SC SCH (20:10)
[2016-10-20] MEDS: ASPIRIN 81 MG ENTERIC TAB PO SCH (20:10)
[2016-10-20 22:00] VITALS: BP 118/73
[2016-10-21 02:00] VITALS: BP 120/63
[2016-10-21] MEDS: IPRATROPIUM 0.5MG/ALBUTEROL 2.5MG INH SOL UD 3ML (DUONEB)(J7620) NEB SCH ×4 (02:00→19:43)
[2016-10-21 05:20] LABS: BASO % 0.2 % (0.0-1.0); EOS # 0.2 K/mm3 (0.0-0.50); EOS % 2.8 % (0.0-3.0); LARGE UNSTAINED CELL # 0.1 K/mm3 (0.0-0.4); LARGE UNSTAINED CELL % 1.5 % (0.0-4.0); LYMPH # 1.7 K/mm3 (1.5-4.5); LYMPH % 23.8 % (24.0-44.0); MEAN CORPUSCULAR HEMOGLOBIN 29.5 pg (27.0-33.0); MEAN CORPUSCULAR HGB CONC 30.8 g/dl (32.0-36.5); MEAN CORPUSCULAR VOLUME 95.7 fl (80.0-96.0); MONO # 0.3 K/mm3 (0.0-0.8); MONO % 4.9 % (0.0-5.0); NEUTROPHILS # 4.4 K/mm3 (1.8-7.7); NEUTROPHILS % 66.7 % (36.0-66.0); PLATELET COUNT, AUTOMATED 215 k/mm3 (150-450); RED CELL DISTRIBUTION WIDTH 17.7 % (11.5-14.5); WHITE BLOOD COUNT 6.5 K/mm3 (4.0-10.0)
[2016-10-21] MEDS: LEVOTHYROXINE 75MCG TABLET (0.075MG) PO SCH (05:33)
[2016-10-21] MEDS: LEVOTHYROXINE 100MCG TABLET (0.1MG) PO SCH (05:33)
[2016-10-21] MEDS: VANCOMYCIN ORAL SOL 250MG/5ML ORAL SYRINGE PO SCH ×4 (05:34→23:34)
[2016-10-21 05:38] LABS: ALBUMIN 2.2 GM/DL (3.2-5.2); ALKALINE PHOSPHATASE 272 U/L (45-117); ALT/SGPT 17 U/L (12-78); ANION GAP 10 MEQ/L (8-16); AST/SGOT 25 U/L (15-37); BILIRUBIN,TOTAL 0.5 MG/DL (0.2-1.0); BLOOD UREA NITROGEN 20 MG/DL (7-18); CALCIUM LEVEL 8.1 MG/DL (8.8-10.2); CARBON DIOXIDE LEVEL 21 MEQ/L (21-32); CHLORIDE LEVEL 115 MEQ/L (98-107); CREATININE FOR GFR 0.68 MG/DL (0.70-1.30); GLOMERULAR FILTRATION RATE > 60.0 (>42); GLUCOSE, FASTING 113 MG/DL (83-110); POTASSIUM SERUM 4.2 MEQ/L (3.5-5.1); SODIUM LEVEL 146 MEQ/L (136-145); TOTAL PROTEIN 4.4 GM/DL (6.4-8.2)
[2016-10-21 06:00] VITALS: BP 122/66
[2016-10-21] MEDS ORDERED: FUROSEMIDE 40 MG/4 ML VIAL (J1940) IV ONE (07:00)
[2016-10-21] MEDS: HumaLOG INSULIN (NovoLOG) PER UNIT SC SCH ×4 (08:30→20:46)
[2016-10-21] MEDS: LACRILUBE (AKWA TEARS) OPHTH OINT 3.5 GM OU SCH ×3 (08:31→20:55)
[2016-10-21] MEDS: NYSTATIN 100,000 UNITS/GM TOPICAL PWD 15 GM TOP SCH ×2 (08:31→20:56)
[2016-10-21] MEDS: DABIGATRAN ETEXILATE 75 MG CAP (PRADAXA) PO SCH ×2 (08:31→20:54)
[2016-10-21 10:00] VITALS: BP 110/66
--- NOTE | 2016-10-21 12:04 | IPN ---
DATE: 10/21/2016 Patient seen and examined at the bedside. Chart has been reviewed. This morning, patient has no new complaints. Denies chest pain, pressure, tightness, shortness of breath, palpitations, lightheadedness, nausea, vomiting, fever, chills, dysuria, urgency, frequency. Patient has chronic lower extremity edema. Vitals: Temperature 97.9, pulse 62, respiratory rate 18, blood pressure 120/66, 95% on room air. Generally, awake, alert, oriented times three, answering questions appropriately. Lungs are diminished but clear to auscultation. No wheezing, rales or rhonchi. Heart: S1, S2, sinus rhythm. No murmurs, rubs or gallops. Abdomen: Soft, nontender, nondistended. Positive bowel sounds in all four quadrants. Extremities: Chronic 2+ pitting edema. Lab data reviewed. ASSESSMENT AND PLAN: This is a 71-year-old male admitted for lower extremity cellulitis, developed acute encephalopathy secondary to hyperammonemia secondary to Depakote which resolved after discontinuation of Depakote then developed diarrhea, low blood pressure, leukocytosis, tachycardia, found to anion gap metabolic acidosis secondary to diarrhea and pneumonia treated with IV ceftriaxone. The patient was treated for colitis with vancomycin and Flagyl and improved significantly without vasopressor treatment, transferred out of the intensive care unit (ICU) to medical/surgical floor with the following issues: 1. Acute metabolic encephalopathy resolved secondary to high ammonia levels from Depakote, infection and sepsis all of which have been treated. Depakote has been discontinued. Currently awake, alert, oriented. Answering questions appropriately. CT of the head was negative for acute cerebrovascular accident (CVA). 2. Hypotension due to severe sepsis. Resolved. 3. Patient diarrhea has resolved. No vasopressor was required. GI panel was negative for Clostridium difficile. Finishing course of oral vancomycin. Flagyl discontinued. Currently on oral vancomycin. 4. Pneumonia bilateral lower lobes, completed full course of IV ceftriaxone, improved. No white count or fever. 5. Acute kidney injury. Prerenal due to diarrhea and volume loss. Creatinine normal. 6. History of diastolic heart failure. Trial of Lasix. Monitor patient's blood pressure. 7. Chronic lower extremity edema. Vascular Dopplers are negative. 8. Atrial fibrillation, back on Pradaxa. Rate controlled. 9. History of lower extremity cellulitis. Completed a full course of antibiotics. 10. Pneumonia. Completed a seven day course of IV ceftriaxone. 11. Obstructive sleep apnea. On home continuous positive airway pressure (CPAP ) on home settings. 12. Atrioventricular (AV) block with pacer. 13. History of seizure disorder. Depakote caused elevated ammonia level and confusion. This has been discontinued. 14. Electrolyte abnormalities, repleted. 15. Hypernatremia, dehydration. Monitor for now. Encouraged oral intake. DISPOSITION: Await Physical medicine and rehabilitation (PM R) acceptance. JAIMIE
[2016-10-21 14:00] VITALS: BP 125/81
[2016-10-21 18:00] VITALS: BP 127/66
[2016-10-21] MEDS: ASPIRIN 81 MG ENTERIC TAB PO SCH (20:54)
[2016-10-21] MEDS: LEVEMIR (INSULIN DETEMIR) 1 UNITS/0.01ML SC SCH (20:55)
[2016-10-21] MEDS: PANTOPRAZOLE 40MG TAB (PROTONIX) PO SCH (21:37)
[2016-10-21 22:00] VITALS: BP 102/67
[2016-10-22] MEDS: IPRATROPIUM 0.5MG/ALBUTEROL 2.5MG INH SOL UD 3ML (DUONEB)(J7620) NEB SCH ×4 (01:41→19:41)
[2016-10-22 02:00] VITALS: BP 109/67
[2016-10-22] MEDS: LEVOTHYROXINE 100MCG TABLET (0.1MG) PO SCH (05:34)
[2016-10-22] MEDS: LEVOTHYROXINE 75MCG TABLET (0.075MG) PO SCH (05:34)
[2016-10-22] MEDS: VANCOMYCIN ORAL SOL 250MG/5ML ORAL SYRINGE PO SCH ×4 (05:34→23:10)
[2016-10-22 06:00] VITALS: BP 100/63
[2016-10-22 06:26] LABS: BASO % 0.3 % (0.0-1.0); EOS # 0.2 K/mm3 (0.0-0.50); EOS % 2.5 % (0.0-3.0); LARGE UNSTAINED CELL # 0.1 K/mm3 (0.0-0.4); LARGE UNSTAINED CELL % 1.6 % (0.0-4.0); LYMPH # 1.9 K/mm3 (1.5-4.5); LYMPH % 24.7 % (24.0-44.0); MEAN CORPUSCULAR HEMOGLOBIN 29.8 pg (27.0-33.0); MONO # 0.3 K/mm3 (0.0-0.8); MONO % 4.3 % (0.0-5.0); NEUTROPHILS # 4.7 K/mm3 (1.8-7.7); NEUTROPHILS % 66.7 % (36.0-66.0); PLATELET COUNT, AUTOMATED 227 k/mm3 (150-450); RED CELL DISTRIBUTION WIDTH 17.5 % (11.5-14.5); WHITE BLOOD COUNT 7.1 K/mm3 (4.0-10.0)
[2016-10-22 06:31] LABS: ALBUMIN 2.2 GM/DL (3.2-5.2); ALBUMIN/GLOBULIN RATIO 0.96 (1.00-1.93); ALKALINE PHOSPHATASE 277 U/L (45-117); ALT/SGPT 18 U/L (12-78); ANION GAP 7 MEQ/L (8-16); AST/SGOT 29 U/L (15-37); BILIRUBIN,TOTAL 0.7 MG/DL (0.2-1.0); BLOOD UREA NITROGEN 17 MG/DL (7-18); CALCIUM LEVEL 8.2 MG/DL (8.8-10.2); CARBON DIOXIDE LEVEL 23 MEQ/L (21-32); CHLORIDE LEVEL 112 MEQ/L (98-107); CREATININE FOR GFR 0.68 MG/DL (0.70-1.30); GLOMERULAR FILTRATION RATE > 60.0 (>42); GLUCOSE, FASTING 100 MG/DL (83-110); SODIUM LEVEL 142 MEQ/L (136-145); TOTAL PROTEIN 4.5 GM/DL (6.4-8.2)
[2016-10-22] MEDS ORDERED: FUROSEMIDE 20 MG/2 ML VIAL (J1940) IV ONE (07:00)
[2016-10-22] MEDS: HumaLOG INSULIN (NovoLOG) PER UNIT SC SCH ×4 (07:30→21:00)
[2016-10-22] MEDS: DABIGATRAN ETEXILATE 75 MG CAP (PRADAXA) PO SCH ×2 (07:58→21:09)
[2016-10-22] MEDS: NYSTATIN 100,000 UNITS/GM TOPICAL PWD 15 GM TOP SCH ×2 (07:58→21:09)
[2016-10-22] MEDS: LACRILUBE (AKWA TEARS) OPHTH OINT 3.5 GM OU SCH ×4 (07:59→21:00)
[2016-10-22] MEDS ORDERED: PANT40TA2 PO (08:46)
[2016-10-22] MEDS ORDERED: FIRS1SOL3 PO (08:46)
[2016-10-22] MEDS ORDERED: INSUDET SC (08:46)
[2016-10-22] MEDS ORDERED: INSUHUMDS SC ×2 (08:46)
[2016-10-22 10:00] VITALS: BP 120/72
[2016-10-22] MEDS ORDERED: traMADol 50 MG TAB PO ONE (10:15)
--- NOTE | 2016-10-22 11:59 | PMRNOTEPD ---
PMR Note Pleasant 71-year-old white male with multiple medical problems causing debilitation who is had an ARU consult sent. Patient participating in low-level physical and occupational therapy for 25-35 minutes at time. However patient with 4+ pitting edema to mid thighs bilaterally along with diffuse weakness in addition to his cardiopulmonary problems. I believe this patient has likely 40 pounds of fluid sequestered in his lower extremities and attempting to try and exercise him at the intensity we need him to exercise will not be possible and may be harmful to the patient. I feel he is a better candidate for lower intensity program at this time and the near future. ELIDA BRANTLEY MD Oct 22, 2016 11:59
[2016-10-22 14:00] VITALS: BP 136/86
--- NOTE | 2016-10-22 14:14 | IPN ---
DATE: 10/22/2016 The patient seen and examined at the bedside. Chart has been reviewed this morning. The patient complains of pain at the right third PIP joints with recent trauma to the area. No swelling. Slight erythema. No other complaints. Otherwise, no chest pain, pressure tightness, nausea, vomiting. Diarrhea is improved. No palpitations, lightheadedness or dizziness. Temperature 97.6, pulse 61, respiratory rate 18, blood pressure 100/63, 93% on room air. Generally awake, alert, oriented to person, place and time. Right internal jugular central venous catheter in place. No jugular venous distention. Lungs are clear to auscultation. No wheezing, rales or rhonchi. Heart: S1, S2, sinus rhythm. Abdomen soft, nontender. Nondistended. Positive bowel sounds times four quadrants. No rebound or guarding. Extremities: 2+ pitting edema. Chronic venostasis changes. 10/22/2016, CBC and metabolic panel has been reviewed. ASSESSMENT/PLAN: This is a 71-year-old male admitted for lower extremity cellulitis. Developed acute encephalopathy secondary to elevated pneumonia level due to Depakote, which resolved after discontinuation of Depakote. He then developed diarrhea, low blood pressure, leukocytosis, tachycardia and found to have an ion gap metabolic acidosis secondary to diarrhea, treated for pneumonia with IV ceftriaxone and colitis with vancomycin and Flagyl with negative GI panel for C difficile times three. The patient stabilized and transferred to medical/surgical floor and has been stable since. Acute metabolic encephalopathy resolved due to high ammonia levels due to Depakote infection with pneumonia, sepsis, withdraw, being treated and currently stabilized. He is awake, alert, oriented times three. Answers questions appropriately and back to baseline. Depakote has been discontinued. CT of the head negative for cerebral vascular accident (CVA). Low blood pressure due to severe sepsis and diarrhea, resolved. Diarrhea has improved. No vasopressor was required. GI panel negative for C difficile. Colitis: Resolved on tapering dose of vancomycin. Bilateral lower lobe pneumonia: Completed full course IV ceftriaxone. No white count or fever. Acute kidney injury prerenal due to diarrhea volume loss. History of diastolic heart failure: Trial of Lasix. Patient's blood pressure has been 100 atrial fibrillation. Weight is controlled back on Pradaxa. Unable to restart beta blockade due to systolic pressure of 100 and into the 90s. History of lower extremity cellulitis: Completed full course of IV antibiotics. Pneumonia: Complete 7 days of IV ceftriaxone. Onset of arteriovenous block with pacer, stable. History of seizure disorder. Discontinued by neurology due to elevated ammonia levels and Depakote. Electrolyte abnormalities: Repleted. Dehydration: For now encourage oral intake. Await physical medicine and rehabilitation (PMR) acceptance.
[2016-10-22 18:00] VITALS: BP 118/69
[2016-10-22] MEDS: ASPIRIN 81 MG ENTERIC TAB PO SCH (21:09)
[2016-10-22] MEDS: LEVEMIR (INSULIN DETEMIR) 1 UNITS/0.01ML SC SCH (21:09)
[2016-10-22] MEDS: PANTOPRAZOLE 40MG TAB (PROTONIX) PO SCH (21:09)
[2016-10-22 22:00] VITALS: BP 106/74
[2016-10-23] VITALS (7 sets, daily range): BP systolic 99–137; BP diastolic 65–78
[2016-10-23] MEDS: IPRATROPIUM 0.5MG/ALBUTEROL 2.5MG INH SOL UD 3ML (DUONEB)(J7620) NEB SCH ×4 (01:06→19:38)
[2016-10-23] MEDS: VANCOMYCIN ORAL SOL 250MG/5ML ORAL SYRINGE PO SCH ×3 (05:56→18:22)
[2016-10-23] MEDS: LEVOTHYROXINE 75MCG TABLET (0.075MG) PO SCH (05:56)
[2016-10-23] MEDS: LEVOTHYROXINE 100MCG TABLET (0.1MG) PO SCH (05:57)
[2016-10-23 06:17] LABS: BASO % 0.1 % (0.0-1.0); EOS # 0.1 K/mm3 (0.0-0.50); EOS % 2.3 % (0.0-3.0); LARGE UNSTAINED CELL # 0.1 K/mm3 (0.0-0.4); LYMPH # 1.2 K/mm3 (1.5-4.5); MEAN CORPUSCULAR HEMOGLOBIN 30.5 pg (27.0-33.0); MEAN CORPUSCULAR HGB CONC 32.1 g/dl (32.0-36.5); MONO # 0.4 K/mm3 (0.0-0.8); MONO % 7.3 % (0.0-5.0); NEUTROPHILS # 3.7 K/mm3 (1.8-7.7); NEUTROPHILS % 67.3 % (36.0-66.0); PLATELET COUNT, AUTOMATED 215 k/mm3 (150-450); RED CELL DISTRIBUTION WIDTH 17.4 % (11.5-14.5); WHITE BLOOD COUNT 5.5 K/mm3 (4.0-10.0)
[2016-10-23 06:32] LABS: ALBUMIN 2.3 GM/DL (3.2-5.2); ALBUMIN/GLOBULIN RATIO 1.28 (1.00-1.93); ALKALINE PHOSPHATASE 280 U/L (45-117); ALT/SGPT 21 U/L (12-78); ANION GAP 7 MEQ/L (8-16); AST/SGOT 33 U/L (15-37); BILIRUBIN,TOTAL 0.7 MG/DL (0.2-1.0); BLOOD UREA NITROGEN 17 MG/DL (7-18); CALCIUM LEVEL 8.2 MG/DL (8.8-10.2); CARBON DIOXIDE LEVEL 24 MEQ/L (21-32); CHLORIDE LEVEL 112 MEQ/L (98-107); CREATININE FOR GFR 0.62 MG/DL (0.70-1.30); GLOMERULAR FILTRATION RATE > 60.0 (>42); GLUCOSE, FASTING 106 MG/DL (83-110); SODIUM LEVEL 143 MEQ/L (136-145); TOTAL PROTEIN 4.1 GM/DL (6.4-8.2)
[2016-10-23] MEDS: DABIGATRAN ETEXILATE 75 MG CAP (PRADAXA) PO SCH ×2 (08:51→21:53)
[2016-10-23] MEDS: HumaLOG INSULIN (NovoLOG) PER UNIT SC SCH ×4 (08:52→21:00)
[2016-10-23] MEDS: NYSTATIN 100,000 UNITS/GM TOPICAL PWD 15 GM TOP SCH ×2 (08:53→21:55)
[2016-10-23] MEDS: LACRILUBE (AKWA TEARS) OPHTH OINT 3.5 GM OU SCH ×3 (08:55→21:53)
--- NOTE | 2016-10-23 12:16 | IPN ---
DATE: 10/23/2016 71-year-old gentleman seen at bedside resting comfortably. He denies chest pain or shortness of breath. His daughter is present. She is concerned that he continues to have swelling of the lower extremities. He denies any abdominal pain. No nausea or vomiting. OBJECTIVE: Temperature is 96.8, pulse 64, respiratory rate 16, blood pressure (BP) 117/75, SPO2 is 96% on room air. General: The patient appears to be in no acute distress. Is alert and oriented. HEENT: Unremarkable. Lungs: Clear. Heart: Regular rate and rhythm. Abdomen: Soft, nontender. Extremities: 3+ edema to below the knees. No calf tenderness. LABORATORY DATA: White count 5.5, hemoglobin 12.2 and platelets are 215,000. Sodium is 143, potassium 4.0, chloride 112, bicarb 24, anion gap 7, BUN 17, creatinine 0.62, glucose 106, AST 33, ALT 21, alkaline phosphatase 280, and albumin is 2.3. ASSESSMENT/PLAN: 1. DICTATION CUT OFF.
[2016-10-23] MEDS: FUROSEMIDE 40 MG/4 ML VIAL (J1940) IV SCH ×3 (12:33→23:36)
--- NOTE | 2016-10-23 12:41 | IPN ---
DATE: 10/23/2016 71-year-old gentleman who has been diuresing modestly. His daughter is present at bedside. He has had some increased shortness of breath through the night last night but that seems to be dissipated. No chest pain. No nausea or vomiting. OBJECTIVE: Temperature 96.8, pulse 64, respiratory rate 16, blood pressure 117/75, SpO2 is 96% on room air. GENERAL: The patient appears to be in no acute distress. Difficult to ascertain the jugular venous distention (JVD) due to body habitus. LUNGS: Diminished bibasilar breath sounds. HEART: Regular rate and rhythm. ABDOMEN: Obese, soft, nontender. EXTREMITIES: He has 3+ edema to just below the knees. No calf tenderness. LABORATORY DATA: White count is 5.5, hemoglobin 12.2, platelets are 215,000. Sodium is 143, potassium 4.0, chloride 112, bicarbonate 24, anion gap 7, BUN 17, creatinine 0.62, glucose 106. ASSESSMENT AND PLAN: 1. Acute metabolic encephalopathy, resolved. This was secondary to Depakote and hyperammonemia. 2. Sepsis with pneumonia, resolved symptoms. 3. Hypotension secondary to sepsis and diarrhea , resolved. Has been on a tapering dose of vancomycin. 4. Colitis with tapering dose of vancomycin. C diff PCR remains negative. 5. Bilateral lower lobe pneumonia. Has finished antibiotics. 6. Acute kidney injury, resolved. 7. Congestive heart failure (CHF). History of diastolic. 8. IV fluid resuscitation. We will start net negative Lasix with 1800 mL a day of fluid restriction. 9. History of atrial fibrillation, rate controlled and on Pradaxa. 10. Lower extremity cellulitis by history, no current issues. 11. Prior history of AV block with a pacer in place. 12. History of seizure disorder. Discontinued Depakote due to elevated ammonia. 13. Deep vein thrombosis (DVT) prophylaxis. TEDs and sequential compression device (SCD). DISPOSITION: We will continue with physical therapy (PT). I had a discussion with the patient and his daughter that he may require some subacute rehabilitation prior to returning home.
[2016-10-23] MEDS: ASPIRIN 81 MG ENTERIC TAB PO SCH (21:52)
[2016-10-23] MEDS: PANTOPRAZOLE 40MG TAB (PROTONIX) PO SCH (21:52)
[2016-10-23] MEDS: ACETAMINOPHEN TAB 650MG DOSE (2X325MG) PO PRN (21:53)
[2016-10-23] MEDS: LEVEMIR (INSULIN DETEMIR) 1 UNITS/0.01ML SC SCH (21:56)
[2016-10-24] VITALS (7 sets, daily range): BP systolic 100–123; BP diastolic 64–84; O2SAT 92
[2016-10-24] MEDS: VANCOMYCIN ORAL SOL 250MG/5ML ORAL SYRINGE PO SCH ×4 (00:08→18:00)
[2016-10-24] MEDS: IPRATROPIUM 0.5MG/ALBUTEROL 2.5MG INH SOL UD 3ML (DUONEB)(J7620) NEB SCH ×4 (02:00→21:00)
[2016-10-24 05:49] LABS: BASO % 0.4 % (0.0-1.0); EOS # 0.1 K/mm3 (0.0-0.50); EOS % 2.6 % (0.0-3.0); LARGE UNSTAINED CELL # 0.1 K/mm3 (0.0-0.4); LARGE UNSTAINED CELL % 1.2 % (0.0-4.0); LYMPH # 1.4 K/mm3 (1.5-4.5); LYMPH % 24.3 % (24.0-44.0); MEAN CORPUSCULAR HEMOGLOBIN 30.4 pg (27.0-33.0); MEAN CORPUSCULAR HGB CONC 32.2 g/dl (32.0-36.5); MEAN CORPUSCULAR VOLUME 94.5 fl (80.0-96.0); MONO # 0.3 K/mm3 (0.0-0.8); MONO % 4.6 % (0.0-5.0); NEUTROPHILS # 3.7 K/mm3 (1.8-7.7); PLATELET COUNT, AUTOMATED 208 k/mm3 (150-450); RED CELL DISTRIBUTION WIDTH 17.5 % (11.5-14.5); WHITE BLOOD COUNT 5.5 K/mm3 (4.0-10.0)
[2016-10-24 06:15] LABS: ALBUMIN 2.3 GM/DL (3.2-5.2); ALBUMIN/GLOBULIN RATIO 1.21 (1.00-1.93); ALKALINE PHOSPHATASE 274 U/L (45-117); ALT/SGPT 21 U/L (12-78); ANION GAP 8 MEQ/L (8-16); AST/SGOT 33 U/L (15-37); BILIRUBIN,TOTAL 0.7 MG/DL (0.2-1.0); BLOOD UREA NITROGEN 15 MG/DL (7-18); CALCIUM LEVEL 8.3 MG/DL (8.8-10.2); CARBON DIOXIDE LEVEL 25 MEQ/L (21-32); CHLORIDE LEVEL 110 MEQ/L (98-107); GLOMERULAR FILTRATION RATE > 60.0 (>42); GLUCOSE, FASTING 107 MG/DL (83-110); POTASSIUM SERUM 3.8 MEQ/L (3.5-5.1); SODIUM LEVEL 143 MEQ/L (136-145); TOTAL PROTEIN 4.2 GM/DL (6.4-8.2)
[2016-10-24] MEDS: LEVOTHYROXINE 100MCG TABLET (0.1MG) PO SCH (06:31)
[2016-10-24] MEDS: LEVOTHYROXINE 75MCG TABLET (0.075MG) PO SCH (06:31)
[2016-10-24] MEDS: FUROSEMIDE 40 MG/4 ML VIAL (J1940) IV SCH ×3 (06:32→18:00)
[2016-10-24] MEDS: LACRILUBE (AKWA TEARS) OPHTH OINT 3.5 GM OU SCH ×3 (08:23→20:38)
[2016-10-24] MEDS: DABIGATRAN ETEXILATE 75 MG CAP (PRADAXA) PO SCH ×2 (08:23→20:37)
[2016-10-24] MEDS: HumaLOG INSULIN (NovoLOG) PER UNIT SC SCH ×4 (08:23→21:00)
[2016-10-24] MEDS: NYSTATIN 100,000 UNITS/GM TOPICAL PWD 15 GM TOP SCH ×2 (08:24→20:38)
--- NOTE | 2016-10-24 09:58 | IPN ---
DATE: 10/24/2016 71-year-old male seen at bedside. No overnight issues reported. Resting comfortably. He denies chest pain, nausea, vomiting, abdominal pain. Does continue with lower extremity edema. However, he has been diuresing well. OBJECTIVE: Temperature 97.5, pulse 65, respiratory rate 22, BP 119/76, SPO2 is 95% on room air. Input and output 1028/2840 with negative fluid balance of 1812. General: The patient appears to be in no acute distress. He is alert, pleasant. HEENT: Unremarkable. Lungs: Diminished bibasilar breath sounds, otherwise clear. Heart: Regular rate and rhythm. Abdomen is obese, soft, nontender, nondistended. Positive bowel sounds. No masses. No rebound. Extremities: Still between 2-3+ edema below the knees. No calf tenderness. Pulses are equal. LABORATORY DATA: White count 5.5, hemoglobin 12.1 and platelets are 208. Sodium 143, potassium 2.8, chloride 110, bicarb 25, anion gap 8, BUN is 15, creatinine 0.7, glucose 107, AST 33, ALT 21, alkaline phosphatase 274. ASSESSMENT/PLAN: 1. Acute metabolic encephalopathy, resolved, possibly secondary to Depakote and hyperammonemia. 2. Sepsis with pneumonia, resolved. 3. Hypotension secondary to sepsis and diarrhea. This has resolved as well. He will finish dosing vancomycin in the next couple of days for presumed Clostridium difficile. 4. Colitis. Again will finish the vancomycin in the next couple of days. Symptomatically he appears to be improved. 5. Bilateral lower extremity edema with exacerbation of congestive heart failure with diastolic dysfunction. We are currently diuresing him with net negative Lasix and fluid restriction. 6. Bilateral lower lobe pneumonia. He has finished antibiotics and currently asymptomatic. 7. Acute kidney injury resolved. 8. History of atrial fibrillation rate controlled and on Pradaxa 9. Prior history of seizure disorder. However, he has had his Depakote discontinued due to hyperammonemia. May can followup outpatient. 10. Deep venous thrombosis (DVT) prophylaxis, thromboembolic deterrent stockings (TEDS) and sequentials. DISPOSITION: Will await physical therapy. He does not appear to be safe for discharge at this point and he may need rehab versus alf placement. [facility] ([facility]) is involved as well as physical therapy.
[2016-10-24] MEDS: PANTOPRAZOLE 40MG TAB (PROTONIX) PO SCH (20:37)
[2016-10-24] MEDS: ASPIRIN 81 MG ENTERIC TAB PO SCH (20:37)
[2016-10-24] MEDS: LEVEMIR (INSULIN DETEMIR) 1 UNITS/0.01ML SC SCH (21:00)
[2016-10-25] MEDS: FUROSEMIDE 40 MG/4 ML VIAL (J1940) IV SCH ×4 (01:09→18:00)
[2016-10-25] MEDS: VANCOMYCIN ORAL SOL 250MG/5ML ORAL SYRINGE PO SCH ×5 (01:10→23:12)
[2016-10-25] MEDS: IPRATROPIUM 0.5MG/ALBUTEROL 2.5MG INH SOL UD 3ML (DUONEB)(J7620) NEB SCH ×5 (01:15→20:28)
[2016-10-25 02:00] VITALS: BP 128/58
[2016-10-25] MEDS: LEVOTHYROXINE 100MCG TABLET (0.1MG) PO SCH (05:11)
[2016-10-25] MEDS: LEVOTHYROXINE 75MCG TABLET (0.075MG) PO SCH (05:11)
[2016-10-25 05:33] LABS: BASO % 0.2 % (0.0-1.0); EOS # 0.1 K/mm3 (0.0-0.50); EOS % 1.9 % (0.0-3.0); LARGE UNSTAINED CELL # 0.1 K/mm3 (0.0-0.4); LARGE UNSTAINED CELL % 1.8 % (0.0-4.0); LYMPH # 1.4 K/mm3 (1.5-4.5); LYMPH % 19.9 % (24.0-44.0); MEAN CORPUSCULAR HEMOGLOBIN 30.3 pg (27.0-33.0); MEAN CORPUSCULAR HGB CONC 32.2 g/dl (32.0-36.5); MEAN CORPUSCULAR VOLUME 94.2 fl (80.0-96.0); MONO # 0.4 K/mm3 (0.0-0.8); MONO % 5.5 % (0.0-5.0); NEUTROPHILS # 4.7 K/mm3 (1.8-7.7); NEUTROPHILS % 70.6 % (36.0-66.0); PLATELET COUNT, AUTOMATED 186 k/mm3 (150-450); RED CELL DISTRIBUTION WIDTH 17.5 % (11.5-14.5); WHITE BLOOD COUNT 6.6 K/mm3 (4.0-10.0)
[2016-10-25 06:00] VITALS: BP 111/72
[2016-10-25 06:02] LABS: ALBUMIN 2.2 GM/DL (3.2-5.2); ALBUMIN/GLOBULIN RATIO 0.96 (1.00-1.93); ALKALINE PHOSPHATASE 272 U/L (45-117); ALT/SGPT 24 U/L (12-78); ANION GAP 11 MEQ/L (8-16); AST/SGOT 32 U/L (15-37); BILIRUBIN,TOTAL 0.8 MG/DL (0.2-1.0); BLOOD UREA NITROGEN 13 MG/DL (7-18); CALCIUM LEVEL 7.6 MG/DL (8.8-10.2); CARBON DIOXIDE LEVEL 24 MEQ/L (21-32); CHLORIDE LEVEL 109 MEQ/L (98-107); CREATININE FOR GFR 0.66 MG/DL (0.70-1.30); GLOMERULAR FILTRATION RATE > 60.0 (>42); GLUCOSE, FASTING 121 MG/DL (83-110); POTASSIUM SERUM 3.4 MEQ/L (3.5-5.1); SODIUM LEVEL 144 MEQ/L (136-145); TOTAL PROTEIN 4.5 GM/DL (6.4-8.2)
[2016-10-25] MEDS: LACRILUBE (AKWA TEARS) OPHTH OINT 3.5 GM OU SCH ×3 (08:30→20:49)
[2016-10-25] MEDS: HumaLOG INSULIN (NovoLOG) PER UNIT SC SCH ×4 (08:31→20:33)
[2016-10-25] MEDS: NYSTATIN 100,000 UNITS/GM TOPICAL PWD 15 GM TOP SCH ×2 (08:31→20:48)
[2016-10-25] MEDS: DABIGATRAN ETEXILATE 75 MG CAP (PRADAXA) PO SCH ×2 (09:56→22:04)
[2016-10-25 10:00] VITALS: BP 113/73
[2016-10-25 14:00] VITALS: BP 114/69
[2016-10-25] MEDS ORDERED: POTASSIUM CHLORIDE 10 MEQ SR TABLET PO ONE (16:15)
[2016-10-25 18:00] VITALS: BP 121/87
[2016-10-25] MEDS: ASPIRIN 81 MG ENTERIC TAB PO SCH (20:46)
[2016-10-25] MEDS: PANTOPRAZOLE 40MG TAB (PROTONIX) PO SCH (20:46)
[2016-10-25] MEDS: LEVEMIR (INSULIN DETEMIR) 1 UNITS/0.01ML SC SCH (20:47)
[2016-10-25 22:00] VITALS: BP 103/59
[2016-10-26] MEDS: FUROSEMIDE 40 MG/4 ML VIAL (J1940) IV SCH ×3 (00:29→12:22)
[2016-10-26] MEDS: IPRATROPIUM 0.5MG/ALBUTEROL 2.5MG INH SOL UD 3ML (DUONEB)(J7620) NEB SCH ×4 (01:12→20:46)
[2016-10-26 02:00] VITALS: BP 105/59
[2016-10-26] MEDS: LEVOTHYROXINE 75MCG TABLET (0.075MG) PO SCH (05:17)
[2016-10-26] MEDS: VANCOMYCIN ORAL SOL 250MG/5ML ORAL SYRINGE PO SCH (05:17)
[2016-10-26] MEDS: LEVOTHYROXINE 100MCG TABLET (0.1MG) PO SCH (05:17)
[2016-10-26 05:38] LABS: BASO % 0.4 % (0.0-1.0); EOS # 0.1 K/mm3 (0.0-0.50); LARGE UNSTAINED CELL # 0.1 K/mm3 (0.0-0.4); LARGE UNSTAINED CELL % 1.9 % (0.0-4.0); LYMPH # 1.2 K/mm3 (1.5-4.5); LYMPH % 19.7 % (24.0-44.0); MEAN CORPUSCULAR HEMOGLOBIN 29.7 pg (27.0-33.0); MEAN CORPUSCULAR HGB CONC 31.6 g/dl (32.0-36.5); MEAN CORPUSCULAR VOLUME 93.9 fl (80.0-96.0); MONO # 0.3 K/mm3 (0.0-0.8); MONO % 5.1 % (0.0-5.0); NEUTROPHILS % 70.9 % (36.0-66.0); PLATELET COUNT, AUTOMATED 181 k/mm3 (150-450); RED CELL DISTRIBUTION WIDTH 17.4 % (11.5-14.5); WHITE BLOOD COUNT 5.6 K/mm3 (4.0-10.0)
[2016-10-26 05:53] LABS: ALBUMIN 2.1 GM/DL (3.2-5.2); ALBUMIN/GLOBULIN RATIO 0.91 (1.00-1.93); ALKALINE PHOSPHATASE 258 U/L (45-117); ALT/SGPT 23 U/L (12-78); ANION GAP 8 MEQ/L (8-16); AST/SGOT 32 U/L (15-37); BILIRUBIN,TOTAL 0.7 MG/DL (0.2-1.0); BLOOD UREA NITROGEN 14 MG/DL (7-18); CALCIUM LEVEL 7.3 MG/DL (8.8-10.2); CARBON DIOXIDE LEVEL 27 MEQ/L (21-32); CHLORIDE LEVEL 109 MEQ/L (98-107); CREATININE FOR GFR 0.68 MG/DL (0.70-1.30); GLOMERULAR FILTRATION RATE > 60.0 (>42); GLUCOSE, FASTING 95 MG/DL (83-110); POTASSIUM SERUM 3.6 MEQ/L (3.5-5.1); SODIUM LEVEL 144 MEQ/L (136-145); TOTAL PROTEIN 4.4 GM/DL (6.4-8.2)
[2016-10-26 06:00] VITALS: BP 102/68
[2016-10-26] MEDS: HumaLOG INSULIN (NovoLOG) PER UNIT SC SCH ×4 (07:30→21:00)
[2016-10-26] MEDS: NYSTATIN 100,000 UNITS/GM TOPICAL PWD 15 GM TOP SCH ×2 (08:12→21:47)
[2016-10-26] MEDS: DABIGATRAN ETEXILATE 75 MG CAP (PRADAXA) PO SCH ×2 (08:13→21:47)
[2016-10-26] MEDS: LACRILUBE (AKWA TEARS) OPHTH OINT 3.5 GM OU SCH ×3 (08:13→21:00)
[2016-10-26 10:00] VITALS: BP 105/65
[2016-10-26 14:00] VITALS: BP 104/63
[2016-10-26] MEDS: TORSEMIDE 100 MG TAB PO SCH (17:37)
[2016-10-26 20:05] VITALS: BP 104/64
--- NOTE | 2016-10-26 21:31 | IPN ---
DATE: 10/26/2016 SUBJECTIVE: A 71-year-old gentleman seen at bedside. No overnight issues. He is resting comfortably. Family is present at bedside. He has diuresed well and we are planning on switching him to oral torsemide. OBJECTIVE: VITAL SIGNS: Temperature is 98.2, pulse 60, respiratory rate 18, blood pressure 105/65, SPO2 is 95% on room air. GENERAL: The patient appears to be in no acute distress. He is alert and oriented. HEENT: Unremarkable. LUNGS: Clear. HEART: Regular rate and rhythm. ABDOMEN: Soft. EXTREMITIES: 2+ edema of the mid shins. No calf tenderness. LABORATORY DATA: White count 5.6, hemoglobin 11.5, and platelets are 181,000. Nkyian383, potassium 3.6chloride 109, bicarbonate 27, anion gap 8, BUN is 14, creatinine is 0.68, glucose 95, bilirubin 0.7, AST 32, ALT is 23, alkaline phosphatase is 258, albumin is 2.1. ASSESSMENT AND PLAN: 1. Acute metabolic encephalopathy which has resolved and thought to be secondary to Depakote. 2. Sepsis with ammonia which has resolved. 3. Hypotension secondary sepsis and diarrhea, resolved. 4. Colitis felt to be secondary to presumed Clostridium (C) difficile colitis. He has finished vancomycin and is no longer having loose stool. 5. Bilateral lower extremity edema with exacerbation of congestive heart failure with diastolic dysfunction. He has diuresed well with Lasix. We will switch him over to torsemide and continue with fluid restriction. 6. Bilateral lower lobe pneumonia. As outlined above, he finished antibiotics. 7. Acute kidney injury, resolved. 8. History of atrial fibrillation. Rate controlled on Pradaxa. 9. Questionable prior history of seizure disorder, not currently on any Depakote. Followup outpatient. 10. Deep vein thrombosis (DVT) prophylaxis. Thromboembolic-deterrent stockings (TEDS), sequentials. DISPOSITION: The patient has done well from a medical standpoint. However, he still needs quite a bit of physical therapy. He did not qualify for physical medicine and rehabilitation and likely will need to be placed in subacute rehabilitation. I did express this to the family who was present at bedside. We will go ahead and make him [facility] facility (SNF) today with anticipation of placement next Saturday or Saturday at [facility]. [facility]
[2016-10-26] MEDS: LEVEMIR (INSULIN DETEMIR) 1 UNITS/0.01ML SC SCH (21:46)
[2016-10-26] MEDS: ASPIRIN 81 MG ENTERIC TAB PO SCH (21:47)
[2016-10-26] MEDS: PANTOPRAZOLE 40MG TAB (PROTONIX) PO SCH (21:47)
[2016-10-27 01:45] VITALS: BP 103/65
[2016-10-27] MEDS: IPRATROPIUM 0.5MG/ALBUTEROL 2.5MG INH SOL UD 3ML (DUONEB)(J7620) NEB SCH ×4 (02:00→19:59)
[2016-10-27 05:45] VITALS: BP 119/76
[2016-10-27] MEDS: LEVOTHYROXINE 100MCG TABLET (0.1MG) PO SCH (06:02)
[2016-10-27] MEDS: LEVOTHYROXINE 75MCG TABLET (0.075MG) PO SCH (06:02)
[2016-10-27 06:05] LABS: BASO % 0.2 % (0.0-1.0); EOS # 0.1 K/mm3 (0.0-0.50); EOS % 2.3 % (0.0-3.0); LARGE UNSTAINED CELL # 0.1 K/mm3 (0.0-0.4); LARGE UNSTAINED CELL % 1.6 % (0.0-4.0); LYMPH # 1.1 K/mm3 (1.5-4.5); MEAN CORPUSCULAR HEMOGLOBIN 29.7 pg (27.0-33.0); MEAN CORPUSCULAR HGB CONC 31.9 g/dl (32.0-36.5); MONO # 0.3 K/mm3 (0.0-0.8); MONO % 6.2 % (0.0-5.0); NEUTROPHILS # 3.1 K/mm3 (1.8-7.7); NEUTROPHILS % 66.8 % (36.0-66.0); PLATELET COUNT, AUTOMATED 172 k/mm3 (150-450); RED CELL DISTRIBUTION WIDTH 17.1 % (11.5-14.5); WHITE BLOOD COUNT 4.6 K/mm3 (4.0-10.0)
[2016-10-27 06:57] LABS: ALBUMIN 2.3 GM/DL (3.2-5.2); ALKALINE PHOSPHATASE 277 U/L (45-117); ALT/SGPT 23 U/L (12-78); ANION GAP 9 MEQ/L (8-16); AST/SGOT 31 U/L (15-37); BILIRUBIN,TOTAL 0.7 MG/DL (0.2-1.0); BLOOD UREA NITROGEN 12 MG/DL (7-18); CALCIUM LEVEL 7.6 MG/DL (8.8-10.2); CARBON DIOXIDE LEVEL 29 MEQ/L (21-32); CHLORIDE LEVEL 107 MEQ/L (98-107); CREATININE FOR GFR 0.76 MG/DL (0.70-1.30); GLOMERULAR FILTRATION RATE > 60.0 (>42); GLUCOSE, FASTING 101 MG/DL (83-110); POTASSIUM SERUM 3.3 MEQ/L (3.5-5.1); SODIUM LEVEL 145 MEQ/L (136-145); TOTAL PROTEIN 4.4 GM/DL (6.4-8.2)
[2016-10-27] MEDS: HumaLOG INSULIN (NovoLOG) PER UNIT SC SCH ×4 (07:57→21:00)
[2016-10-27] MEDS: DABIGATRAN ETEXILATE 75 MG CAP (PRADAXA) PO SCH ×2 (08:58→21:51)
[2016-10-27] MEDS: TORSEMIDE 100 MG TAB PO SCH ×2 (08:58→17:12)
[2016-10-27] MEDS: NYSTATIN 100,000 UNITS/GM TOPICAL PWD 15 GM TOP SCH ×2 (08:59→21:42)
[2016-10-27] MEDS: LACRILUBE (AKWA TEARS) OPHTH OINT 3.5 GM OU SCH ×3 (08:59→21:00)
[2016-10-27 10:00] VITALS: BP 115/74
[2016-10-27 14:00] VITALS: BP 109/72
[2016-10-27 18:00] VITALS: BP 109/70
[2016-10-27 20:42] VITALS: BP 118/70
[2016-10-27] MEDS: LEVEMIR (INSULIN DETEMIR) 1 UNITS/0.01ML SC SCH (21:50)
[2016-10-27] MEDS: PANTOPRAZOLE 40MG TAB (PROTONIX) PO SCH (21:51)
[2016-10-27] MEDS: ASPIRIN 81 MG ENTERIC TAB PO SCH (21:51)
[2016-10-28] MEDS: IPRATROPIUM 0.5MG/ALBUTEROL 2.5MG INH SOL UD 3ML (DUONEB)(J7620) NEB SCH ×4 (02:00→20:29)
[2016-10-28 05:45] VITALS: BP 94/60
[2016-10-28] MEDS: LEVOTHYROXINE 75MCG TABLET (0.075MG) PO SCH (06:02)
[2016-10-28] MEDS: LEVOTHYROXINE 100MCG TABLET (0.1MG) PO SCH (06:02)
[2016-10-28] MEDS: HumaLOG INSULIN (NovoLOG) PER UNIT SC SCH ×4 (07:30→21:00)
[2016-10-28] MEDS: NYSTATIN 100,000 UNITS/GM TOPICAL PWD 15 GM TOP SCH ×2 (10:16→21:15)
[2016-10-28] MEDS: TORSEMIDE 100 MG TAB PO SCH ×2 (10:16→17:36)
[2016-10-28] MEDS: LACRILUBE (AKWA TEARS) OPHTH OINT 3.5 GM OU SCH ×3 (10:16→21:16)
[2016-10-28] MEDS: DABIGATRAN ETEXILATE 75 MG CAP (PRADAXA) PO SCH ×2 (10:16→21:16)
[2016-10-28] MEDS ORDERED: POTASSIUM CHLORIDE 10 MEQ SR TABLET PO ONE (11:30)
[2016-10-28] MEDS: ASPIRIN 81 MG ENTERIC TAB PO SCH (21:16)
[2016-10-28] MEDS: PANTOPRAZOLE 40MG TAB (PROTONIX) PO SCH (21:16)
[2016-10-28] MEDS: LEVEMIR (INSULIN DETEMIR) 1 UNITS/0.01ML SC SCH (21:16)
[2016-10-29] MEDS: IPRATROPIUM 0.5MG/ALBUTEROL 2.5MG INH SOL UD 3ML (DUONEB)(J7620) NEB SCH ×2 (01:26→08:00)
[2016-10-29] MEDS: LEVOTHYROXINE 100MCG TABLET (0.1MG) PO SCH (05:45)
[2016-10-29] MEDS: LEVOTHYROXINE 75MCG TABLET (0.075MG) PO SCH (05:45)
[2016-10-29 06:00] VITALS: BP 105/62
[2016-10-29] MEDS: HumaLOG INSULIN (NovoLOG) PER UNIT SC SCH ×4 (07:30→21:00)
[2016-10-29] MEDS: LACRILUBE (AKWA TEARS) OPHTH OINT 3.5 GM OU SCH ×4 (09:00→21:06)
[2016-10-29] MEDS: DABIGATRAN ETEXILATE 75 MG CAP (PRADAXA) PO SCH ×2 (09:46→21:05)
[2016-10-29] MEDS: TORSEMIDE 100 MG TAB PO SCH ×2 (09:46→17:17)
[2016-10-29] MEDS: NYSTATIN 100,000 UNITS/GM TOPICAL PWD 15 GM TOP SCH ×2 (09:47→21:06)
[2016-10-29] MEDS: LEVEMIR (INSULIN DETEMIR) 1 UNITS/0.01ML SC SCH (21:05)
[2016-10-29] MEDS: ASPIRIN 81 MG ENTERIC TAB PO SCH (21:05)
[2016-10-29] MEDS: PANTOPRAZOLE 40MG TAB (PROTONIX) PO SCH (21:05)
[2016-10-30] MEDS: LEVOTHYROXINE 100MCG TABLET (0.1MG) PO SCH (05:47)
[2016-10-30] MEDS: LEVOTHYROXINE 75MCG TABLET (0.075MG) PO SCH (05:47)
[2016-10-30 06:00] VITALS: BP 107/59
[2016-10-30] MEDS: HumaLOG INSULIN (NovoLOG) PER UNIT SC SCH (07:30)
--- NOTE | 2016-10-30 08:04 | IPN ---
DATE: 10/25/2016 SUBJECTIVE: A 71-year-old male seen at bedside. No overnight issues reported. He is resting comfortably. He has continued to diurese well. No chest pain. No shortness of breath. No abdominal pain, nausea, or vomiting. OBJECTIVE: VITAL SIGNS: Temperature is 96.9, pulse 60, respiratory rate 18, blood pressure 114/69, SPO2 is 95% on room air. GENERAL: The patient appears to be in no acute distress. He is alert and oriented, pleasant talk to. Today, he is net negative 1900 mL. HEENT: Unremarkable. LUNGS: Clear. HEART: Regular rate and rhythm. ABDOMEN: Soft, obese, nontender, nondistended. Positive bowel sounds. EXTREMITIES: 3+ edema to the mid rivera today. No calf tenderness. LABORATORY DATA: White count 6.6, hemoglobin 12.2, and platelets 186,000. Sodium 144, potassium 3. which we will supplement, chloride 109, bicarbonate 24, anion gap 11, BUN 13, creatinine 0.66, glucose 121, AST 32, ALT 24, alkaline phosphatase 272, albumin 2.2. ASSESSMENT AND PLAN: 1. Hypokalemia. We will replete. 2. Acute metabolic encephalopathy, secondary to Depakote and hyperammonemia, which has been discontinued. 3. Sepsis with pneumonia, resolved. 4. Hypotension, secondary to sepsis and diarrhea, resolved. He is to finish vancomycin in the next 24-48 hours for presumed Clostridium (C) difficile colitis. 5. Colitis, as outlined above, symptomatically improved. 6. Bilateral lower extremity edema. He does appear to be diuresing well on Lasix. 7. Bilateral lower lobe pneumonia. Finished antibiotics. Currently asymptomatic. 8. Acute kidney injury, resolved. 9. Atrial fibrillation, rate controlled on Pradaxa. 10. History of seizure disorder, which his Depakote has been discontinued due to hyperammonemia. He can followup outpatient with neurology. 11. Deep vein thrombosis (DVT) prophylaxis. Thromboembolic-deterrent stockings (TEDS) and sequentials. DISPOSITION: Awaiting further assistance from therapy. He may need subacute rehabilitation versus half-way placement. Patient and family services (PFS) is involved and appreciate physical therapy's input.
[2016-10-30] MEDS: LACRILUBE (AKWA TEARS) OPHTH OINT 3.5 GM OU SCH (09:00)
[2016-10-30] MEDS ORDERED: INFLUENZA VIRUS VACCINE HIGH DOSE 0.5 ML SYRINGE (90662) IM SCH (09:00)
[2016-10-30] MEDS: DABIGATRAN ETEXILATE 75 MG CAP (PRADAXA) PO SCH (10:00)
[2016-10-30] MEDS: TORSEMIDE 100 MG TAB PO SCH (10:01)
[2016-10-30] MEDS: NYSTATIN 100,000 UNITS/GM TOPICAL PWD 15 GM TOP SCH (10:01)
--- NOTE | 2016-11-05 21:02 | DSES ---
DATE OF ADMISSION: 09/13/2016 DATE OF DISCHARGE: 10/30/2016 DISCHARGE DIAGNOSIS: Decompensated diastolic congestive heart failure. SECONDARY DIAGNOSES: 1. Metabolic encephalopathy. 2. Chronic obstructive pulmonary disease (COPD). 3. Obstructive sleep apnea. 4. Atrial fibrillation. 5. Atrioventricular (AV) block. 6. Hypertension. 7. Type 2 diabetes. 8. Seizure disorder. 9. Hypothyroidism. 10. Gout. 11. Obesity. 12. Gastroesophageal reflux disease. 13. Macular degeneration. 14. Chronic kidney disease. 15. Pulmonary hypertension. 16. Tinea pedis. 17. Complicated urinary tract infection (UTI). 18. Colitis. 19. Fecal impaction. 20. Anion gap and non-anion gap acidosis. 21. Bilateral lower lobe pneumonia. 22. Hypoxia. HOSPITAL COURSE: The patient was admitted initially with metabolic encephalopathy and cellulitis. He was treated and did improve, however he was also started on Depakote and he did have an elevated ammonia and his metabolic encephalopathy progressively worsened from there. Hospital course was complicated by urinary tract infection, fecal impaction, bilateral pneumonia, and an episode of sepsis with colitis for which was presumably Clostridium (C) difficile and he was treated and completed a course of antibiotics, however, his polymerase chain reaction (PCP) was never positive. The patient was discontinued from Depakote and with antibiotic therapy gradually improved to the point that he became medically stable and was eventually made alternate level of care starting 10/26/2016. He was seen in consultation during his prolonged stay by Dr. Travis of neurology and Dr. Best of critical care. He underwent triple lumen catheter placement by Dr. Campa during his stay as well. He did have an EEG completed during his stay that was positive for metabolic encephalopathy. At the present time, subjectively he reports that he is feeling well. He is awake, alert, oriented times three. He denies any fevers, chills, chest pain, shortness of breath, nausea, vomiting, or diarrhea. OBJECTIVE: VITAL SIGNS: Temperature 97.2, pulse 60, respiratory rate 18, blood pressure 107/59, oxygen saturation 98% on room air. GENERAL: He is a quite pleasant, man, in no acute distress. HEENT: Cranial nerves II-XII are grossly intact. He has moist mucous membranes. RESPIRATORY EXAM: Clear. CARDIOVASCULAR EXAM: S1, S2, appears regular at this time. ABDOMINAL EXAM: Obese, bowel sounds present. The abdomen is soft. EXTREMITIES: There is 2+ edema bilaterally. LABORATORY STUDIES: No recent labs. Microbiology: He did have a proteus mirabilis urinary tract positive infection which he was treated for. IMAGING: He had numerous CT scans of the head that all essentially revealed small vessel ischemic disease and moderate volume loss. He did have a duplex of the bilateral lower extremities that revealed no evidence of deep venous thrombosis (DVT). He had two CT scans of the abdomen and pelvis, the most recent revealed a large volume of fecal residue in the rectal ampulla, possibly impaction, abdominal ascites, but no splenomegaly. There were bibasilar lower lobe infiltrates. ASSESSMENT AND PLAN: This is a 71-year-old man with multiple medical comorbidities status post a complicated hospital course who is now medically stable, and discharged to correction [facility]). 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 He is to walk with a walker and have a no added salt diet, consistent carbohydrate. MEDICATIONS: At the time of discharge: - Levemir 10 units subcutaneously at bedtime - lispro sliding scale before meals and nightly - ProAir HFA 108 mcg two puffs inhaled as needed for shortness of breath - albuterol nebulizer 2.5 mg every 4 hours as needed for shortness of breath - allopurinol 300 mg nightly - vitamin C 1 gram nightly - aspirin 81 mg nightly - Welchol 3750 mg nightly - Pradaxa 150 mg twice a day - desoximetasone 0.25% cream topically as needed to cracked in the feet - glucosamine, as per the patient one capsule twice a day - Synthroid 175 mcg every morning - magnesium oxide 400 mg twice a day - multivitamin one tablet nightly - nystatin powder 100,000 units topically twice a day to the groin - omeprazole 40 mg nightly - vitamin D 2000 units at bedtime PROBLEMS: 1. Metabolic encephalopathy, resolved, thought to be related to numerous infections at the time of admission, cellulitis, later complicated by a complicated urinary tract infection, bilateral pneumonia, and hyperammonemia related to Depakote use, resolved. 2. Bilateral lower lobe pneumonia. Completed treatment of antibiotics during his stay. 3. Proteus mirabilis complicated urinary tract infection. Completed antibiotic course during his stay. 4. Colitis, presumed to be Clostridium (C) difficile. Completed a course of antibiotics during his stay, although never tested positive. 5. Hypoxia, thought to be related to compensated diastolic congestive heart failure. He was diuresed and his volume status did improve. 6. Sepsis syndrome related to colitis, resolved. 7. Acute kidney injury, resolved. 8. Atrial fibrillation. He is rate controlled without any specific agents. He is anticoagulated with Pradaxa. 9. History of a seizure disorder. The patient was discontinued from Depakote. I recommend that he undergo outpatient followup with neurology regarding this. 10. Asthma. Continue with bronchodilator therapy. 11. Gout. Continue with allopurinol. 12. Dyslipidemia. Continue with Welchol. 13. Hypothyroidism. Continue with levothyroxine. 14. Gastroesophageal reflux disease. Continue with omeprazole. 15. Vitamin D deficiency. Continue with supplementation. 16. Hypertension. The patient is not hypertensive at this time and as such his antihypertensives have actually all been held. Restart these as indicated in followup. DISPOSITION: The patient is being discharged to correction facility.
== END 2016-10-30 12:30 | DRG 602 ==
LOC: M ED 12:23 → M ED INP 15:58 → M PCU 22:08 → M MSPAV 09-15 13:01 → M ICU 10-12 18:45 → M MSPAV 10-17 15:27
PROVIDERS: ADMIT Internal Medicine; ATTEND Internal Medicine
PROC: 0W9G3ZX Drainage of Peritoneal Cavity, Percutaneous Approach, Diagnostic (ICD-10-PCS; principal; 2016-10-04)
PROC: 02HV33Z Insertion of Infusion Device into Superior Vena Cava, Percutaneous Approach (ICD-10-PCS; 2016-10-12)
DX: L03.115 Cellulitis of right lower limb (principal); G93.41 Metabolic encephalopathy; A41.9 Sepsis, unspecified organism; R65.20 Severe sepsis without septic shock; J18.9 Pneumonia, unspecified organism; I50.33 Acute on chronic diastolic (congestive) heart failure; I13.0 Hypertensive heart and chronic kidney disease with heart failure and stage 1 through stage 4 chronic kidney disease, or unspecified chronic kidney disease; N17.9 Acute kidney failure, unspecified; E66.2 Morbid (severe) obesity with alveolar hypoventilation; E87.0 Hyperosmolality and hypernatremia; N39.0 Urinary tract infection, site not specified; E87.2 Acidosis; K52.9 Noninfective gastroenteritis and colitis, unspecified; N18.3 Chronic kidney disease, stage 3 (moderate); J44.9 Chronic obstructive pulmonary disease, unspecified; I48.91 Unspecified atrial fibrillation; E11.9 Type 2 diabetes mellitus without complications; E03.9 Hypothyroidism, unspecified; M10.9 Gout, unspecified; G40.909 Epilepsy, unspecified, not intractable, without status epilepticus; K21.9 Gastro-esophageal reflux disease without esophagitis; H35.30 Unspecified macular degeneration; K56.41 Fecal impaction; B35.3 Tinea pedis; Z79.4 Long term (current) use of insulin; Z79.82 Long term (current) use of aspirin; Z79.899 Other long term (current) drug therapy; Z79.01 Long term (current) use of anticoagulants; B96.4 Proteus (mirabilis) (morganii) as the cause of diseases classified elsewhere; Z95.0 Presence of cardiac pacemaker; Z90.49 Acquired absence of other specified parts of digestive tract; Z87.891 Personal history of nicotine dependence; E11.65 Type 2 diabetes mellitus with hyperglycemia

== ENCOUNTER → 2016-10-31 | Outpatient (REF) ==
[~2016-10-31] MED LIST changes: +FIRS1SOL3 PO; +GABA600T PO; +INSUHUMDS SC; +ISOS5TA PO; +NYST1POW9 TOP; +PANT40TA2 PO
[2016-10-31 12:09] LABS: MEAN CORPUSCULAR HEMOGLOBIN 30.7 pg (27.0-33.0); MEAN CORPUSCULAR HGB CONC 32.7 g/dl (32.0-36.5); MEAN CORPUSCULAR VOLUME 93.8 fl (80.0-96.0); RED CELL DISTRIBUTION WIDTH 16.7 % (11.5-14.5); WHITE BLOOD COUNT 5.3 K/mm3 (4.0-10.0)
[2016-10-31 12:28] LABS: ANION GAP 13 MEQ/L (8-16); BLOOD UREA NITROGEN 12 MG/DL (7-18); CALCIUM LEVEL 8.5 MG/DL (8.8-10.2); CARBON DIOXIDE LEVEL 30 MEQ/L (21-32); CHLORIDE LEVEL 99 MEQ/L (98-107); CREATININE FOR GFR 0.98 MG/DL (0.70-1.30); GLOMERULAR FILTRATION RATE > 60.0 (>42); GLUCOSE, FASTING 90 MG/DL (83-110); POTASSIUM SERUM 3.4 MEQ/L (3.5-5.1); SODIUM LEVEL 142 MEQ/L (136-145)
== END ==
DX: I50.9 Heart failure, unspecified (principal)

== ENCOUNTER → 2016-11-07 | Outpatient (REF) ==
[2016-11-07 10:01] LABS: MEAN CORPUSCULAR HEMOGLOBIN 30.6 pg (27.0-33.0); MEAN CORPUSCULAR HGB CONC 32.6 g/dl (32.0-36.5); MEAN CORPUSCULAR VOLUME 93.8 fl (80.0-96.0); RED CELL DISTRIBUTION WIDTH 16.3 % (11.5-14.5)
[2016-11-07 10:23] LABS: ANION GAP 10 MEQ/L (8-16); BLOOD UREA NITROGEN 16 MG/DL (7-18); CARBON DIOXIDE LEVEL 28 MEQ/L (21-32); CHLORIDE LEVEL 102 MEQ/L (98-107); CREATININE FOR GFR 1.07 MG/DL (0.70-1.30); GLOMERULAR FILTRATION RATE > 60.0 (>42); GLUCOSE, FASTING 128 MG/DL (83-110); SODIUM LEVEL 140 MEQ/L (136-145)
== END ==
DX: N18.9 Chronic kidney disease, unspecified (principal)

== ENCOUNTER 2017-07-12 08:34 | Inpatient (IN) | payer MEDICARE, BC, OTHER ==
[2017-07-12] MEDS: DABIGATRAN ETEXILATE 75 MG CAP (PRADAXA) PO ×2 (09:00→21:02)
[2017-07-12] MEDS: MAGNESIUM OXIDE 400 MG TAB (MAG-OX) PO ×2 (09:00→21:02)
[2017-07-12 09:45] LABS: BASO % 0.4 % (0.0-1.0); EOS # 0.2 10^3/uL (0.0-0.50); EOS % 2.9 % (0.0-3.0); HEMATOCRIT 41.1 % (42.0-52.0); HEMOGLOBIN 12.3 g/dl (13.5-17.5); IMMATURE GRANULOCYTE % 0.4 % (0-3.0); LYMPH # 1.1 10^3/uL (1.5-4.5); LYMPH % 15.4 % (24.0-44.0); MEAN CORPUSCULAR HEMOGLOBIN 24.6 pg (27.0-33.0); MEAN CORPUSCULAR HGB CONC 29.9 g/dl (32.0-36.5); MEAN CORPUSCULAR VOLUME 82.2 fl (80.0-96.0); MONO # 0.6 10^3/uL (0.0-0.8); MONO % 8.4 % (0.0-5.0); NEUTROPHILS # 5.1 10^3/uL (1.8-7.7); NEUTROPHILS % 72.5 % (36.0-66.0); PLATELET COUNT, AUTOMATED 177 10^3/uL (150-450); RED CELL DISTRIBUTION WIDTH 16.4 % (11.5-14.5)
[2017-07-12 10:07] LABS: LACTIC ACID SEPSIS PROTOCOL 3.3 MMOL/L (0.4-2.0)
[2017-07-12 10:30] LABS: ALBUMIN 3.5 GM/DL (3.2-5.2); ALKALINE PHOSPHATASE 269 U/L (45-117); ALT/SGPT 34 U/L (12-78); ANION GAP 7 MEQ/L (8-16); AST/SGOT 36 U/L (7-37); BILIRUBIN,TOTAL 1.1 MG/DL (0.2-1.0); BLOOD UREA NITROGEN 20 MG/DL (7-18); CALCIUM LEVEL 9.1 MG/DL (8.8-10.2); CARBON DIOXIDE LEVEL 29 MEQ/L (21-32); CHLORIDE LEVEL 106 MEQ/L (98-107); CREATININE FOR GFR 1.17 MG/DL (0.70-1.30); GLOMERULAR FILTRATION RATE > 60.0 (>42); GLUCOSE, FASTING 244 MG/DL (70-100); POTASSIUM SERUM 4.6 MEQ/L (3.5-5.1); SODIUM LEVEL 142 MEQ/L (136-145); TOTAL PROTEIN 6.2 GM/DL (6.4-8.2)
[2017-07-12 10:40] LABS: C REACTIVE PROTEIN QUANTITATIV 0.97 MG/DL (0.00-0.30)
[2017-07-12 11:05] LABS: ERYTHROCYTE SEDIMENTATION RATE 5 mm/hr (0-20)
[2017-07-12] MEDS: VANCOMYCIN HCL 1,000 MG, VIAL MATE ADAPTER 1 EACH in D5W 250 ML IV ×2 (11:45→17:54)
[2017-07-12] MEDS: NS 500 ML IV (12:00)
[2017-07-12] MEDS ORDERED: ONDANSETRON 4MG/2ML VIAL (J2405) IV (12:45)
[2017-07-12] MEDS: NS 1,000 ML IV (12:45)
[2017-07-12] MEDS ORDERED: GLUCAGON FOR INJ 1 MG VIAL (J1610) SC (13:30)
[2017-07-12] MEDS ORDERED: ALBUTEROL 90 MCG/ACT 8GM HFA INHALER INH (13:30)
[2017-07-12] MEDS ORDERED: NYSTATIN 100,000 UNITS/GM TOPICAL PWD 15 GM TOP (13:30)
[2017-07-12] MEDS ORDERED: ENTER DRUG NAME HERE (PATIENT'S OWN MED) TOP (13:30)
[2017-07-12] MEDS ORDERED: GLUCOSE 4 GM CHEW TABLET PO (13:30)
[2017-07-12] MEDS ORDERED: DEXTROSE 50% 50 ML SYRINGE IV (13:30)
[2017-07-12] MEDS ORDERED: LIDOCAINE 1% MDV 20ML VIAL As Ordered (14:46)
[2017-07-12] MEDS: ASPIRIN 81 MG ENTERIC TAB PO (17:53)
[2017-07-12] MEDS: MULTIVITAMINS/MINERALS THERAP 1 TAB PO (17:53)
[2017-07-12] MEDS: TORSEMIDE 20 MG TAB PO (17:53)
[2017-07-12] MEDS: ALLOPURINOL 300 MG TAB PO (17:53)
[2017-07-12] MEDS: HumaLOG INSULIN (NovoLOG) PER UNIT SC ×2 (17:54→21:01)
[2017-07-12] MEDS: ASCORBIC ACID 500 MG TAB PO (17:54)
[2017-07-12] MEDS: VITAMIN D 1,000 INTERNATIONAL UNITS TABLET PO (17:55)
[2017-07-12 20:52] LABS: BEDSIDE GLUCOSE 286 MG/DL (83-110)
[2017-07-12] MEDS: LEVEMIR (INSULIN DETEMIR) 1 UNITS/0.01ML SC (21:01)
[2017-07-12] MEDS: COLESEVELAM 625 MG TAB (WELCHOL) PO (21:01)
[2017-07-12] MEDS: OMEPRAZOLE 20 MG CAP PO (21:02)
[2017-07-12 22:12] LABS: LACTIC ACID SEPSIS PROTOCOL 2.7 MMOL/L (0.4-2.0)
[2017-07-13 05:49] LABS: HEMATOCRIT 37.6 % (42.0-52.0); HEMOGLOBIN 11.2 g/dl (13.5-17.5); MEAN CORPUSCULAR HEMOGLOBIN 24.4 pg (27.0-33.0); MEAN CORPUSCULAR HGB CONC 29.8 g/dl (32.0-36.5); MEAN CORPUSCULAR VOLUME 81.9 fl (80.0-96.0); PLATELET COUNT, AUTOMATED 171 10^3/uL (150-450); RED BLOOD COUNT 4.59 10^6/uL (4.30-6.10); RED CELL DISTRIBUTION WIDTH 16.3 % (11.5-14.5); WHITE BLOOD COUNT 5.6 10^3/uL (4.0-10.0)
[2017-07-13] MEDS: LEVOTHYROXINE 75MCG TABLET (0.075MG) PO (05:56)
[2017-07-13] MEDS: VANCOMYCIN HCL 1,000 MG, VIAL MATE ADAPTER 1 EACH in D5W 250 ML IV (05:56)
[2017-07-13] MEDS: LEVOTHYROXINE 100MCG TABLET (0.1MG) PO (05:56)
[2017-07-13 06:11] LABS: ANION GAP 7 MEQ/L (8-16); BLOOD UREA NITROGEN 19 MG/DL (7-18); C REACTIVE PROTEIN QUANTITATIV 1.37 MG/DL (0.00-0.30); CALCIUM LEVEL 8.1 MG/DL (8.8-10.2); CARBON DIOXIDE LEVEL 25 MEQ/L (21-32); CHLORIDE LEVEL 111 MEQ/L (98-107); CREATININE FOR GFR 1.04 MG/DL (0.70-1.30); GLOMERULAR FILTRATION RATE > 60.0 (>42); GLUCOSE, FASTING 200 MG/DL (70-100); SODIUM LEVEL 143 MEQ/L (136-145)
[2017-07-13 06:20] LABS: BEDSIDE GLUCOSE 152 MG/DL (83-110)
[2017-07-13] MEDS: HumaLOG INSULIN (NovoLOG) PER UNIT SC ×2 (07:47→12:33)
[2017-07-13] MEDS: TORSEMIDE 20 MG TAB PO (07:47)
[2017-07-13] MEDS: ALLOPURINOL 300 MG TAB PO (07:47)
[2017-07-13] MEDS: ASPIRIN 81 MG ENTERIC TAB PO (07:48)
[2017-07-13] MEDS: MAGNESIUM OXIDE 400 MG TAB (MAG-OX) PO (07:48)
[2017-07-13] MEDS: DABIGATRAN ETEXILATE 75 MG CAP (PRADAXA) PO (07:48)
[2017-07-13] MEDS: MULTIVITAMINS/MINERALS THERAP 1 TAB PO (07:48)
[2017-07-13] MEDS: VITAMIN D 1,000 INTERNATIONAL UNITS TABLET PO (07:48)
[2017-07-13] MEDS: ASCORBIC ACID 500 MG TAB PO (07:48)
[2017-07-13] MEDS: LEVEMIR (INSULIN DETEMIR) 1 UNITS/0.01ML SC (07:49)
[2017-07-13 16:19] LABS: BEDSIDE GLUCOSE 195 MG/DL (83-110)
== END 2017-07-13 15:20 | disposition home or self-care (01) | DRG 556 ==
LOC: M ED 08:34 → M ED INP 13:00 → M MSPAV 16:06
PROC: 0J9P3ZZ Drainage of Left Lower Leg Subcutaneous Tissue and Fascia, Percutaneous Approach (ICD-10-PCS; principal; 2017-07-12)
DX: M79.81 Nontraumatic hematoma of soft tissue (principal); I50.32 Chronic diastolic (congestive) heart failure; I13.0 Hypertensive heart and chronic kidney disease with heart failure and stage 1 through stage 4 chronic kidney disease, or unspecified chronic kidney disease; E87.2 Acidosis; J44.9 Chronic obstructive pulmonary disease, unspecified; G47.33 Obstructive sleep apnea (adult) (pediatric); I48.91 Unspecified atrial fibrillation; E66.9 Obesity, unspecified; E11.9 Type 2 diabetes mellitus without complications; E03.9 Hypothyroidism, unspecified; M10.9 Gout, unspecified; K21.9 Gastro-esophageal reflux disease without esophagitis; N18.3 Chronic kidney disease, stage 3 (moderate); Z79.82 Long term (current) use of aspirin; Z79.01 Long term (current) use of anticoagulants; Z79.4 Long term (current) use of insulin; Z79.899 Other long term (current) drug therapy; Z99.89 Dependence on other enabling machines and devices; Z88.1 Allergy status to other antibiotic agents; Z88.8 Allergy status to other drugs, medicaments and biological substances; Z95.0 Presence of cardiac pacemaker; Z90.49 Acquired absence of other specified parts of digestive tract; Z87.891 Personal history of nicotine dependence; Z68.32 Body mass index [BMI] 32.0-32.9, adult

== ENCOUNTER → 2018-01-07 | Outpatient (CLI) | payer MEDICARE, BC, OTHER | LOC: M RAD 10:52 | DX: Z12.2 Encounter for screening for malignant neoplasm of respiratory organs (principal); Z87.891 Personal history of nicotine dependence; J47.9 Bronchiectasis, uncomplicated | CPT/HCPCS: G0297 ==

== ENCOUNTER 2018-02-20 12:20 | Emergency (ER) | payer MEDICARE, BC, OTHER ==
[~2018-02-20] VITALS: Ht 188 cm; Wt 118.6 kg
[~2018-02-20 12:20] MED LIST changes: -FIRS1SOL3 PO; +FIRS50SO PO; +GABA-1171 PO; -GABA-279 PO; -PANT40TA2 PO; +PANT40TA3 PO; +SPIR-10 PO; -SPIR25TA2 PO; -ZYLO300T4 PO; +ZYLO300T6 PO
[2018-02-20] MEDS ORDERED: BUPIVACAINE HCL 0.5% 10 ML VIAL SC ONE (13:00)
[2018-02-20] MEDS ORDERED: CYCLOBENZAPRINE 5MG TABLET PO ONE (13:15)
[2018-02-20] MEDS ORDERED: NORCO, ANEXSIA 5/325MG TABLET (HYDROcodone/ACETAMINOPHEN) PO ONE (13:15)
[2018-02-20] MEDS ORDERED: CYCL5TAB PO (14:10)
[2018-02-20] MEDS ORDERED: NORC1TAB4 PO (14:10)
[2018-02-20 14:38] VITALS: BP 107/56
== END 2018-02-20 14:44 | disposition home or self-care (01) ==
LOC: EDBD 12:20 → M ED 12:20
DX: M54.5 Low back pain (principal); M62.830 Muscle spasm of back; I48.91 Unspecified atrial fibrillation; I50.9 Heart failure, unspecified; I13.0 Hypertensive heart and chronic kidney disease with heart failure and stage 1 through stage 4 chronic kidney disease, or unspecified chronic kidney disease; N18.3 Chronic kidney disease, stage 3 (moderate); J44.9 Chronic obstructive pulmonary disease, unspecified; K21.9 Gastro-esophageal reflux disease without esophagitis; G47.33 Obstructive sleep apnea (adult) (pediatric); E03.9 Hypothyroidism, unspecified; M10.9 Gout, unspecified; I27.20 Pulmonary hypertension, unspecified; I87.8 Other specified disorders of veins; Z95.0 Presence of cardiac pacemaker; Z87.891 Personal history of nicotine dependence; Z79.899 Other long term (current) drug therapy; Z79.02 Long term (current) use of antithrombotics/antiplatelets; Z79.82 Long term (current) use of aspirin; Z79.4 Long term (current) use of insulin; Z88.8 Allergy status to other drugs, medicaments and biological substances

== ENCOUNTER → 2018-04-03 | Outpatient (CLI) | payer MEDICARE, BC, OTHER ==
[~2018-04-03] MED LIST changes: +CYCL5TAB PO; -GABA600T PO; +GABA600T4 PO; +NORC1TAB4 PO
--- NOTE | 2018-04-03 14:49 | REP ---
LUMBAR SPINE, SIX VIEWS: HISTORY: Disc degeneration. The examination is very limited. There are old compression fractures of the L1 and L3 vertebral bodies with minimal height loss. The lumbar intervertebral discs are decreased in height consistent with disc degeneration. Osteophytes are present on L3 through L5. There is narrowing of the L4-5 and L5-S1 facet joints. There is minimal scoliosis convex to the left. IMPRESSION: Degenerative change, as described above. Electronically Signed by Brayden Anderson MD 04/03/2018 02:51 P
== END ==
LOC: M LRY 12:49
PROVIDERS: ATTEND Nurse Practitioner Adult Health
DX: M51.36 Other intervertebral disc degeneration, lumbar region (principal)

== ENCOUNTER → 2018-06-11 | Outpatient (CLI) | payer MEDICARE, BC, OTHER ==
[~2018-06-11] MED LIST changes: -/DIVA50TA PO; -/LINE60TA; -/MUPI30CR EXT; -ALBU2EL PO; +ALBU2SYP PO; -ASPI1TAB PO; +ASPI81TA26 PO; +BACT2CRE14 EXT; -DOXY10CA PO; +DOXY1TAB33 PO; +LIDO1OIN2 TOP; -LIDO5OI TOP; +MUPI1OIN2 TOP; -MUPI2OI TOP; -NORC1TAB4 PO; +NORC1TAB7 PO; +PRAD150C6 PO; +PRED-351 PO; -PRED10TA PO; +ZYVO100T
--- NOTE | 2018-06-11 16:06 | REP ---
CT LUMBAR SPINE WITHOUT CONTRAST: HISTORY: Disc degeneration. COMPARISON: 10/21/2012. There is no disc bulge or herniation at the L1-2 and L2-3 levels. The nerves exit the neural foramina without compression. A diffuse disc bulge is present at the L3-4 level. There is minimal compression of the thecal sac. The L3 nerves exit the neural foramina without compression. A diffuse disc bulge is present at the L4-5 level. There is minimal compression of the thecal sac. There is hypertrophy of the posterior articulating facets. The L4 nerves exit the neural foramina without compression. A diffuse disc bulge is present at the L5-S1 level. There is minimal compression of the thecal sac. There is hypertrophy of the posterior articulating facets. There is compression of the left L5 nerve in the neural foramen. The right L5 nerve exits the neural foramen without compression. The L4-5 and L5-S1 intervertebral discs are decreased in height. vacuum phenomenon is present at the L5-S1 level. These findings are consistent with disc degeneration. There are old compression fractures of the L1 through L4 vertebral bodies with minimal height loss. There is no subluxation. IMPRESSION: 1. Diffuse disc bulges at the L3-4 through L5-S1 levels with minimal thecal sac compression. There is compression of the left L5 nerve in the neural foramen. 2. There are old compression fractures of the L1 through L4 vertebral bodies with minimal height loss. The compression fractures are a new finding compared to the previous study. Electronically Signed by Brayden Anderson MD 06/11/2018 04:10 P
== END ==
LOC: M RAD 14:58
PROVIDERS: ATTEND Orthopaedic Surgery
DX: M51.36 Other intervertebral disc degeneration, lumbar region (principal); M51.26 Other intervertebral disc displacement, lumbar region; M51.27 Other intervertebral disc displacement, lumbosacral region

== ENCOUNTER → 2018-06-24 | Outpatient (CLI) | payer MEDICARE, BC, OTHER ==
--- NOTE | 2018-06-24 12:21 | REP ---
LIMITED ABDOMEN ULTRASOUND: HISTORY: Elevated LFTs. The patient is status post cholecystectomy. The common bile duct measures 5.5 mm. The liver is heterogenous in echogenicity. A 9 mm cyst is present in the inferior right lobe of the liver. The pancreas is not seen. The right kidney measures 6.9 cm in transverse x 5.7 cm in AP x 11.9 cm in cephalocaudal dimensions. A 1.3 cm cyst is present in the lower medial right kidney. There is no hydronephrosis or mass. Ascites is present throughout the abdomen and pelvis. IMPRESSION: 1. The patient is status post cholecystectomy. 2. The liver is heterogeneous in echogenicity consistent with fatty infiltration. 3. 9 mm liver cyst. 4. 1.3 cm right renal cyst. 5. There is ascites throughout the abdomen and pelvis. Electronically Signed by Brayden Anderson MD 06/24/2018 12:22 P
== END ==
LOC: M RAD 08:32
PROVIDERS: ATTEND Nurse Practitioner Adult Health
DX: K76.0 Fatty (change of) liver, not elsewhere classified (principal); K76.89 Other specified diseases of liver; N28.1 Cyst of kidney, acquired; R18.8 Other ascites; Z90.49 Acquired absence of other specified parts of digestive tract; R74.8 Abnormal levels of other serum enzymes

== ENCOUNTER → 2018-08-01 | Outpatient (CLI) | payer MEDICARE, BC, OTHER ==
[~2018-08-01] MED LIST changes: +E-Z-GAS II EFFERVESCENT PACKET (SODIUM BICARB./CITRIC ACID/SIMETHICONE) As Ordered ONE; +E-Z-HD 98% w/w 340GM SUSP BTL As Ordered ONE; +E-Z-PAQUE 96% w/w SUSP 176GM BTL As Ordered ONE
--- NOTE | 2018-08-04 13:43 | REP ---
Examination Requested: Esophagram Barium Swallow Reason For Exam/Comment: Dysphasia Esophagram: The procedure was performed ANTHONY Landa, under the direct supervision of Dr. Andino. The images were reviewed with Dr. Andino. A single PA chest x-ray is submitted as a cytology teacher film. The superior mediastinal structures are midline. The heart size is within normal limits. The lungs are clear. Liquid barium and gas producing granules were given in the erect position as well as liquid barium in the prone oblique position, in order to perform a double contrast esophagram examination. Oral and pharyngeal stages of the examination were unremarkable. Esophageal transport is efficient and there is no esophagitis, stricture, or mucosal ring noted. There is no hiatal hernia noted. Gastroesophageal reflux was not demonstrated throughout the course of the exam . Impression: 1. Unremarkable barium swallow 0.6 minutes of fluoroscopy time was utilized for this procedure. Reviewed by ANTHONY Lara 08/01/2018 02:20 P Electronically Signed by Jason Andino MD 08/04/2018 01:34 P
== END ==
LOC: M RAD 09:43
PROVIDERS: ATTEND Otolaryngology
DX: R13.10 Dysphagia, unspecified (principal)

== ENCOUNTER 2018-08-21 10:46 | Inpatient (IN) | payer MEDICARE, BC, OTHER ==
[~2018-08-21] VITALS: Ht 188 cm; Wt 113.9 kg
[~2018-08-21 10:46] MED LIST changes: -E-Z-GAS II EFFERVESCENT PACKET (SODIUM BICARB./CITRIC ACID/SIMETHICONE) As Ordered ONE; -E-Z-HD 98% w/w 340GM SUSP BTL As Ordered ONE; -E-Z-PAQUE 96% w/w SUSP 176GM BTL As Ordered ONE
--- NOTE | 2018-08-21 11:37 | REP ---
Clinical: Cough and dyspnea . Comparison: 07/12/2017 . Findings: The mediastinum and cardiac silhouette are stable and within normal limits for portable technique. Pacemaker noted. The lung newman the straight chronic-appearing interstitial changes without focal consolidation, effusion, or pneumothorax. Trace basilar atelectasis cannot be excluded. Skeletal structures are intact. Impression: Chronic-appearing changes. Subtle basilar atelectasis cannot be excluded. Electronically Signed by Aric Montes MD 08/21/2018 11:28 A
[2018-08-21 11:48] LABS: VENOUS BASE EXCESS -2.4 (-2.0-2.0); VENOUS HCO3 22.9 MEQ/L (23.0-27.0); VENOUS O2 SATURATION 79.5 % (60.0-80.0); VENOUS PARTIAL PRESSURE O2 46.8 mmHg (30.0-50.0); VENOUS PH 7.364 UNITS (7.330-7.430); VENOUS STANDARD HCO3 22.1 MEQ/L; VENOUS TOTAL CO2 24.1 MEQ/L (24.0-28.0)
[2018-08-21 11:54] LABS: BASO % 0.3 % (0.0-1.0); EOS # 0.2 10^3/uL (0.0-0.50); EOS % 1.5 % (0.0-3.0); HEMATOCRIT 40.3 % (42.0-52.0); HEMOGLOBIN 11.3 g/dl (13.5-17.5); LYMPH # 0.8 10^3/uL (1.5-4.5); LYMPH % 7.5 % (24.0-44.0); MEAN CORPUSCULAR HEMOGLOBIN 22.2 pg (27.0-33.0); MONO % 9.5 % (0.0-5.0); NEUTROPHILS # 8.7 10^3/uL (1.8-7.7); NEUTROPHILS % 80.8 % (36.0-66.0); PLATELET COUNT, AUTOMATED 291 10^3/uL (150-450); WHITE BLOOD COUNT 10.8 10^3/uL (4.0-10.0)
[2018-08-21 12:02] LABS: INR 1.44; PROTHROMBIN TIME 17.3 SECONDS (11.8-14.0)
[2018-08-21 12:13] LABS: ERYTHROCYTE SEDIMENTATION RATE 5 mm/hr (0-20)
--- NOTE | 2018-08-21 12:19 | REP ---
Clinical: Bilateral lower extremity swelling . Technique: Andino scale and color Doppler evaluation using linear high frequency transducer. Findings: Ultrasound examination of the right and left lower extremity deep venous structures from the common femoral vein to the popliteal vein demonstrates normal compressibility flow and wave patterns in response to respiration and augmentation. There is no evidence for deep venous thrombosis. Diffuse moderate swelling/subcutaneous edema noted. Impression: Diffuse bilateral subcutaneous edema. No evidence for deep venous thrombosis. Electronically Signed by Aric Mnotes MD 08/21/2018 12:11 P
[2018-08-21] MEDS ORDERED: BUME1TAB3 PO ×2 (12:33)
[2018-08-21] MEDS ORDERED: VITA-158 PO (12:33)
[2018-08-21] MEDS ORDERED: MAGN400T2 PO (12:33)
[2018-08-21] MEDS ORDERED: MULT-40 PO (12:33)
[2018-08-21] MEDS ORDERED: EUCECRE8 TOP (12:33)
[2018-08-21 12:47] LABS: ALBUMIN 2.9 GM/DL (3.2-5.2); ALT/SGPT 13 U/L (12-78); BILIRUBIN,DIRECT 0.5 MG/DL (0.0-0.2); BILIRUBIN,TOTAL 1.4 MG/DL (0.2-1.0); BLOOD UREA NITROGEN 16 MG/DL (7-18); C REACTIVE PROTEIN QUANTITATIV 3.74 MG/DL (0.00-0.30); CALCIUM LEVEL 8.2 MG/DL (8.8-10.2); CARBON DIOXIDE LEVEL 27 MEQ/L (21-32); CHLORIDE LEVEL 108 MEQ/L (98-107); CK-MB VALUE MASS < 1.0 NG/ML (<3.6); CPK CREATINE PHOSPHOKINASE 45 U/L (39-308); CREATININE FOR GFR 1.19 MG/DL (0.70-1.30); GLOMERULAR FILTRATION RATE > 60.0 (>42); GLUCOSE, FASTING 93 MG/DL (70-100); MB/CK RELATIVE INDEX 2.22 (< OR =4); NT-PRO BNP 1390 PG/ML (<125); POTASSIUM SERUM 3.6 MEQ/L (3.5-5.1); SODIUM LEVEL 140 MEQ/L (136-145); TOTAL PROTEIN 5.7 GM/DL (6.4-8.2); TROPONIN I 0.03 NG/ML (< 0.10); URIC ACID 5.2 MG/DL (3.5-7.2)
[2018-08-21 16:05] VITALS: BP 132/62
[2018-08-21] MEDS ORDERED: ALBUTEROL 90 MCG/ACT 8GM HFA INHALER INH PRN (17:00)
[2018-08-21] MEDS ORDERED: DEXTROSE 50% 50 ML SYRINGE IV PRN (17:00)
[2018-08-21] MEDS ORDERED: COLCHICINE 0.6 MG TAB PO ONE (17:00)
[2018-08-21] MEDS ORDERED: GLUCOSE 4 GM CHEW TABLET PO PRN (17:00)
[2018-08-21] MEDS ORDERED: GLUCAGON FOR INJ 1 MG VIAL (J1610) SC PRN (17:00)
[2018-08-21] MEDS: TORSEMIDE 20 MG TAB PO SCH (18:31)
[2018-08-21] MEDS: HumaLOG INSULIN (NovoLOG) PER UNIT SC SCH (18:31)
--- NOTE | 2018-08-21 20:11 | ECGEPIP ---
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
--- NOTE | 2018-08-21 20:18 | HPEPDOC ---
General Date of Admission Aug 21, 2018 at 13:22 Date of Service: Aug 21, 2018 Other Providers [facility] Attending Physician: DEWAYNE PASTOR MD Chief Complaint The patient is a 73-year-old male admitted with a reason for visit of joint swelling. Timing/Duration: Day(s) (5), Getting worse History of Present Illness 73m with hx of CHF, AF, ICD, COPD, DM, PINKY on cpap, chronic back pain, gout, testicular cancer who presents with joint swelling. Per pt his pharmacy switched manafacturers for his torsemide and he felt the new pill was making him constipated. He also did not feel it was working well and after speaking with h is proposition player he was switched to Bumex. He has been taking this for almost a week. Since started the bumex he has noted swelling and pain in joints around his body including ankles, knees, right hip, wrists, fingers, elbows, and shoulders. He has not noticed increased water retention or increased sob. He denies fever, cough or rash. Home Medications Scheduled Allopurinol (Zyloprim) 300 Mg Tab, 300 MG PO DAILY, (Reported) Ascorbic Acid (Vitamin C) 500 Mg Tablet, 500 MG PO DAILY, (Reported) TAKES AT NOON Aspirin (Aspirin EC) 81 Mg Tab, 81 MG PO DAILY, (Reported) Bumetanide (Bumetanide) 1 Mg Tablet, 3 MG PO QAM, (Reported) PT TOOK 60MG OF TORSEMIDE THIS MORNING. SKIPPED HIS BUMETANIDE LAST NIGHT DUE TO SYMPTOMS HE HAS BEEN HAVING Bumetanide (Bumetanide) 1 Mg Tablet, 2 MG PO DAILY, (Reported) TAKES LATE AFTERNOON. Cholecalciferol (Vitamin D3) (Vitamin D3) 2,000 Unit Cap, 2,000 UNIT PO DAILY, (Reported) TAKES AT NOON Colesevelam Hydrochloride (Welchol) 625 Mg Tab, 3,750 MG PO QHS, (Reported) Dabigatran Etexilate Mesylate (Pradaxa) 150 Mg Cap, 150 MG PO BID, (Reported) Glucosamine/Chondroitin/C/Clay (Glucosamine-Chondroitin Capsul) 1 Cap Cap, 1 CAP PO BID, (Reported) Insulin Detemir (Levemir) 1 Units/0.01 Ml Susp, 60 UNITS SC BID, (Reported) blood sugar <130, no insulin. PT HASN'T NEEDED MORNING DOSE LATELY. Lanolin Alcohol/Mo/W.pet/[place] (Eucerin Creme) 454 Gm Cream..g., 1 DOSE TOP DAILY, (Reported) APPLY TO LEGS AND FEET. Levothyroxine Sodium (Levothyroxine Sodium) 175 Mcg Tab, 175 MCG PO QAM, (Reported) Magnesium Oxide (Magnesium Oxide) 400 Mg Tablet, 400 MG PO BID, (Reported) Multivitamin (Multivitamins) 1 Each Tablet, 1 TAB PO DAILY, (Reported) TAKES AT NOON Omeprazole (Omeprazole) 40 Mg Cap, 40 MG PO QHS, (Reported) Scheduled PRN Albuterol Sulfate (Proair Hfa) 108 Mcg/Act Aer, 2 PUFFS INH QID PRN for S HORTNESS OF BREATH, (Reported) Allergies Coded Allergies: Quinolones (Verified Allergy, Unknown, 08/21/18) GI UPSET atorvastatin (Verified Allergy, Unknown, 08/21/18) GI UPSET valsartan (Verified Allergy, Unknown, 08/21/18) FROM [facility] Past Medical History Medical History as above Surgical History rt orchiectomy Family History Significant Family History: Noncontributory Social History former smoker A-FIB/CHADSVASC A-FIB History Current/History of A-Fib/PAF?: Yes Current PO Anticoag Therapy: Yes Age/Risk Factor Scoring CHADSVASC: CHADSVASC Response (Comments) Value Age Risk Factor Age 65-74 years old 1 Gender Risk Factor Male 0 Hx of CHF Yes 1 Hx of HTN Yes 1 Hx of Stroke/TIA/or VTE No 0 Hx of Diabetes Yes 1 Hx of Vascular Disease No 0 Total 4 Treatment Treatment ordered: Dabigatran Review of Systems Constitutional: Denies: Chills, Fever, Night Sweats Eyes: Denies: Pain, Vision change ENT: Denies: Head Aches, Ear Pain, Dysphagia Skin: Denies: Rash Pulmonary: Reports: Dyspnea Cardiovascular: Reports: Edema; Denies: Chest Pain, Orthopnea Gastrointestinal: Denies: Nausea, Vomiting, Abdominal Pain, Diarrhea Genitourinary: Denies: Dysuria, Frequency, Incontinence, Retention Hematologic: Denies: Bruising, Bleeding Excessively Musculoskeletal: Reports: Joint Pain Neurological: Denies: Weakness, Numbness, Change in speech, Confusion Psych: Reports: Depression Physical Examination General Exam: Positive: Alert, Cooperative, No Acute Distress Eye Exam: Positive: PERRLA, Conjunctiva & lids normal, EOMI; Negative: Sclera icteric ENT Exam: Positive: Atraumatic, Mucous membr. moist/pink, Pharynx Normal Neck Exam: Positive: Supple; Negative: JVD, thyromegaly Chest Exam: Positive: Clear to auscultation, Normal air movement Heart Exam: Positive: Rate Normal, Normal S1, Normal S2; Negative: Murmurs, Rubs Abdomen Exam: Positive: Normal bowel sounds, Soft; Negative: Tenderness, Hepatospenomegaly Extremity Exam: Positive: Tenderness, Swelling Skin Exam: Positive: Other skin issue (Tophi) Neuro Exam: Positive: Normal Gait, Normal Speech, Cranial Nerves 3-12 NL, Reflexes 2+ Psych Exam: Positive: Mental status NL, Mood NL, Oriented x 3 Vital Signs Vital Signs Date Time Temp Pulse Resp B/P (MAP) Pulse Ox O2 Delivery O2 Flow Rate FiO2 08/21/18 16:05 97.6 76 18 132/62 (85) 94 08/21/18 14:16 Nasal Cannula 2.0 Laboratory Data Labs 24H Laboratory Tests 2 08/21/18 11:34: Immature Granulocyte % (Auto) 0.4, White Blood Count 10.8H, Red Blood Count 5.10, Hemoglobin 11.3L, Hematocrit 40.3L, Mean Corpuscular Volume 79.0L, Mean Corpuscular Hemoglobin 22.2L, Mean Corpuscular Hemoglobin Concent 28.0L, Red Cell Distribution Width 20.3H, Platelet Count 291, Neutrophils (%) (Auto) 80.8H, Lymphocytes (%) (Auto) 7.5L, Monocytes (%) (Auto) 9.5H, Eosinophils (%) (Auto) 1.5, Basophils (%) (Auto) 0.3, Neutrophils # (Auto) 8.7H, Lymphocytes # (Auto) 0.8L, Monocytes # (Auto) 1.0H, Eosinophils # (Auto) 0.2, Basophils # (Auto) 0.0, Nucleated Red Blood Cells % (auto) 0.0, Erythrocyte Sedimentation Rate 5, Prothrombin Time 17.3H, Prothromb Time International Ratio 1.44, Blood Gas Bicarbonate Standard 22.1, Venous Blood pH 7.364, Venous Blood Partial Pressure CO2 41.0, Venous Blood Partial Pressure O2 46.8, Venous Blood Total Carbon Dioxide 24.1, Venous Blood HCO3 22.9L, Venous Blood Oxygen Saturation 79.5, Venous Blood Base Excess -2.4L, Anion Gap 5L, Glomerular Filtration Rate > 60.0, Uric Acid 5.2, Calcium Level 8.2L, Aspartate Amino Transf (AST/SGOT) 23, Alanine Aminotransferase (ALT/SGPT) 13, Alkaline Phosphatase 248H, Total Bilirubin 1.4H, Direct Bilirubin 0.5H, Total Creatine Kinase 45, Creatine Kinase MB < 1.0, Creatine Kinase MB Relative Index 2.22, Troponin I 0.03, C-Reactive Protein, Quantitative 3.74H, VM-Gej-M-Type Natriuretic Peptide 1390H, Total Protein 5.7L, Albumin 2.9L, Albumin/Globulin Ratio 1.04, Thyroid Stimulating Hormone (TSH) 1.570 08/21/18 17:40: Bedside Glucose (Misc Panel) 110 CBC/BMP Laboratory Tests 08/21/18 11:34 Red Blood Count 5.10, Mean Corpuscular Volume 79.0 L, Mean Corpuscular Hemog lobin 22.2 L, Mean Corpuscular Hemoglobin Concent 28.0 L, Red Cell Distribution Width 20.3 H, Neutrophils (%) (Auto) 80.8 H, Lymphocytes (%) (Auto) 7.5 L, Monocytes (%) (Auto) 9.5 H, Eosinophils (%) (Auto) 1.5, Basophils (%) (Auto) 0.3, Neutrophils # (Auto) 8.7 H, Lymphocytes # (Auto) 0.8 L, Monocytes # (Auto) 1.0 H, Eosinophils # (Auto) 0.2, Basophils # (Auto) 0.0 Microbiology Microbiology 08/21/18 Blood Culture, Received Pending 08/21/18 Blood Culture, Received Pending Assessment/Plan 73m p/w pain and swelling in multiple joints suspect polyarticular gout possibly related to diuretics will give a dose of colchicine tonight would avoid nsaids and steroids due to comorbiditiesa check uric acid in am hold allopurinol during acute flare chronic chf with preserved EF continue torsemide for now cardiology consulted is/os daily weights Diabetes continue levemir fingersticks ac and hs sliding scale correction diabetic diet hypothyroid stable continue synthroid PINKY stable continue cpap Plan / VTE VTE Prophylaxis Ordered?: Yes DEWAYNE PASTOR MD Aug 21, 2018 20:18
[2018-08-21] MEDS: DABIGATRAN ETEXILATE 75 MG CAP (PRADAXA) PO SCH (20:20)
[2018-08-21] MEDS: OMEPRAZOLE 20 MG CAP PO SCH (20:21)
[2018-08-21] MEDS: MAGNESIUM OXIDE 400 MG TAB (MAG-OX) PO SCH (20:21)
[2018-08-21] MEDS ORDERED: COLESEVELAM 625 MG TAB (WELCHOL) PO SCH (21:00)
[2018-08-21] MEDS ORDERED: LEVEMIR (INSULIN DETEMIR) 1 UNITS/0.01ML SC SCH (21:00)
[2018-08-21 22:00] VITALS: BP 107/55
[2018-08-22 02:00] VITALS: BP 104/59
[2018-08-22 06:00] VITALS: BP 120/58
[2018-08-22] MEDS: LEVOTHYROXINE 75MCG TABLET (0.075MG) PO SCH (06:46)
[2018-08-22] MEDS: LEVOTHYROXINE 100MCG TABLET (0.1MG) PO SCH (06:46)
[2018-08-22 06:52] LABS: HEMATOCRIT 34.6 % (42.0-52.0); HEMOGLOBIN 9.9 g/dl (13.5-17.5); MEAN CORPUSCULAR HGB CONC 28.6 g/dl (32.0-36.5); MEAN CORPUSCULAR VOLUME 76.9 fl (80.0-96.0); PLATELET COUNT, AUTOMATED 225 10^3/uL (150-450)
[2018-08-22 07:19] LABS: ALBUMIN 2.4 GM/DL (3.2-5.2); ALT/SGPT 11 U/L (12-78); BILIRUBIN,TOTAL 1.1 MG/DL (0.2-1.0); BLOOD UREA NITROGEN 17 MG/DL (7-18); CALCIUM LEVEL 7.9 MG/DL (8.8-10.2); CARBON DIOXIDE LEVEL 27 MEQ/L (21-32); CHLORIDE LEVEL 110 MEQ/L (98-107); CREATININE FOR GFR 1.03 MG/DL (0.70-1.30); GLOMERULAR FILTRATION RATE > 60.0 (>42); GLUCOSE, FASTING 51 MG/DL (70-100); POTASSIUM SERUM 3.2 MEQ/L (3.5-5.1); SODIUM LEVEL 143 MEQ/L (136-145); TOTAL PROTEIN 5.1 GM/DL (6.4-8.2); URIC ACID 5.7 MG/DL (3.5-7.2)
[2018-08-22] MEDS: HumaLOG INSULIN (NovoLOG) PER UNIT SC SCH ×3 (07:30→17:03)
[2018-08-22] MEDS: MAGNESIUM OXIDE 400 MG TAB (MAG-OX) PO SCH ×2 (08:35→21:05)
[2018-08-22] MEDS: TORSEMIDE 20 MG TAB PO SCH ×2 (08:35→16:55)
[2018-08-22] MEDS: DABIGATRAN ETEXILATE 75 MG CAP (PRADAXA) PO SCH (08:35)
[2018-08-22] MEDS ORDERED: ASPIRIN 81 MG ENTERIC TAB PO SCH (09:00)
[2018-08-22] MEDS ORDERED: POTASSIUM CHLORIDE 10 MEQ SR TABLET PO ONE ×3 (09:45→17:00)
[2018-08-22 10:00] VITALS: BP 111/57
[2018-08-22] MEDS ORDERED: POTASSIUM CHL PWD 20 MEQ PACKET PO SCH ×2 (10:00→11:00)
[2018-08-22] MEDS: VITAMIN D 1,000 INTERNATIONAL UNITS TABLET PO SCH (12:16)
[2018-08-22 14:00] VITALS: BP 111/61
[2018-08-22] MEDS: SPIRONOLACTONE 25 MG TAB PO SCH (16:56)
[2018-08-22] MEDS ORDERED: COLCHICINE 0.6 MG TAB PO ONE (17:00)
[2018-08-22 18:00] VITALS: BP 129/87
--- NOTE | 2018-08-22 19:50 | CR ---
DATE OF CONSULTATION: 08/22/2018 REQUESTING PROVIDER: Dr. Eyad Downs REASON FOR CONSULTATION: Congestive heart failure. 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 His weight is up 17 pounds from his weight in May which was 274 pounds Due to constipation and feeling like his new torsemide formulation was not working, he had stopped that and was started on Bumex 3 mg in the morning and 2 mg in the evening. He reports that he started to develop increased shortness of breath on Saturday night Saturday morning and over the weekend, stopped urinating as much. He also states that he started to develop arthralgias at this time, starting in his neck and shoulders and moving down into his elbows and wrists as well as his fingers bilaterally... He has noticed an increase in his water retention as well as increasing shortness of breath on exertion, moving side to side, and if he tries to lay flat. He denies any paroxysmal nocturnal dyspnea as he wears C-PAP. CARDINAL CARDIAC SYMPTOMS: Denies chest pain, claudication, embolic phenomenon,, palpitations, syncope. He does not weight himself at home. PAST CARDIAC INVESTIGATIONS: Holter monitor February 21, 2010 showed atrial fibrillation throughout with ventricular rates ranging from 51-136 beats per minute. Average ventricular rate was 83 beats a minute. Left bundle branch throughout the ventricular ectopy consisted of occasional mostly uniform PVCs including couplets, bigeminy and ventricular escape beats. The longest observed RR interval was 1.8 seconds. No episodes of marked bradycardia. No episodes of ventricular tachycardia. Chest CT angiogram from February 03, [address] [facility] in [place] reviewed independently showed normal left ventricular size marked left atrial enlargement, moderate right heart chamber enlargement an IVC 3.4 cm coronary artery calcification, especially the LAD a prominent pulmonary trunk at 3.6 cm and main pulmonary arteries. No sign of pulmonary embolism. Mild bibasilar - only fibrosis, no effusion. Multi event monitor done November 2011 showed a high grade AV block, pacer implant done. Stress SPECT study done 09/27/2014 showed an LVEF of 73%, normal left ventricular wall motion, normal stress SPECT myocardial perfusion imaging. Myocardial perfusion unchanged compared to June 14, 2006. Echocardiogram done July 14, 2016 showed an LVEF 65%, and was a somewhat technically challenging study. Moderate concentric left ventricular hypertrophy with preserved systolic function. Prominently dilated left atrium with current Doppler estimated mean left atrial pressure at least mildly increased. Mildly dilated right heart chambers with Doppler evidence of least moderate pulmonary hypertension. Mildly dilated IVC with reduced respiratory collapse suggestive of a slightly elevated central venous pressure. Comparing the above test findings to the study in July 02, 2013 the mean left atrial pressure was slightly high and right heart chamber sizes appear to be mildly increased as does pulmonary arterial pressure and central venous pressure. CARDIAC PROCEDURES: Pacemaker implant November 2011: Single chamber [facility]. Fan done for chronic atrial fibrillation with intermittent high grade AV block. CARDIAC RISK FACTORS: Male age 45 or greater, obesity, high cholesterol, hypertension, diabetes type 2, currently insulin dependent. Prior smoker. PAST MEDICAL HISTORY: Obstructive sleep apnea follows with Dr. Dawkins and does wear C-PAP. Gout and abdominal aortic aneurysm 3.1 cm infrarenal aneurysm followed by Dr. Ordonez, gastroesophageal reflux disease, history of testicular cancer, MRSA cellulitis on his leg, arthritis, cellulitis, degenerative disk disease. PAST SURGICAL HISTORY: Gallbladder in the 1970s, right testicular surgery in , right knee arthroscopy in the s times two, left knee surgery in 2007, left knee surgery for MRSA infection in 2008 with a subsequent skin graft in 2008, 2 months later. Venous ablation of the right leg done in 2009, cataract removal times two done in 2010. FAMILY HISTORY: Noncontributory. SOCIAL HISTORY: The patient is a and lives by himself in [place], [place]. 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 He is a former smoker who quit in 2007 smoking up to three packs per day from age 18. Denies alcohol use. REVIEW OF SYSTEMS: Constitutional: Denies fevers, chills or weight loss. He reports a 21 pounds weight gain. Eyes: History of macular degeneration. He does wear reading glasses. Ear, nose, mouth, throat: Does have chronic hearing loss but denies tinnitus and does not wear hearing aids. Respiratory: Denies coughing, sputum production, chest pain, hemoptysis, but does report shortness of breath with mild activity as well as on exertion. GI: Denies any changes to his bowel habits but does have a history of gastroesophageal reflux disease and heartburn. Denies abdominal pain, dysphagia gas, bloating, hematemesis, jaundice, melena, nausea, bloody stools and vomiting. : Denies dysuria, hematuria, hesitancy, incontinence, nocturia, oliguria or polyuria. Musculoskeletal: Reports arthralgias as mentioned above, history of arthritis, falls and gout. Skin: Denies any new skin changes. Neuro: Denies dizziness, lightheadedness, headaches, numbness or tingling of the hands. Denies vertigo Psych: Denies anxiety, depression or panic disorder. Endocrine: Reports tremor. Denies hair loss intolerance to cold intolerance to heat polydipsia, polyphagia, polyuria, polyuria, some prominent eyes Hematology lymphatic: Denies anemia, bleeding, bruising or enlarged lymph nodes ALLERGIES/IMMUNOLOGY: Denies environmental allergies and frequent infection. PHYSICAL EXAMINATION: Vitals: Temperature 97.2, pulse 72 and regular, respiratory rate 18, blood pressure lying down is 108/56, sitting systolic is 110. He is 96% on 2 liters of oxygen. Constitutional: This is an elderly obese male who speaks in eight word sentences and appears to have to take deep breaths in between. It takes significant effort for him to change position. Eyes: Conjunctivae show no icterus or pallor. No xanthelasmas of the upper or lower lids. Ear, nose, mouth, throat: Edentulous with full upper dentures. Oral mucous is has normal moisture. There is no cyanosis or pallor. Neck: Trachea is midline jugular venous pulsations are visible 15 cm above the sternal angle. Respiratory: Respiratory effort is poor and breath sounds are faint. He has prolonged expirations with basilar crackles but no obvious rhonchi or wheezes. Chest expansion is symmetrical. Cardiovascular: No lifts or thrills. S1 and S2 are diminished, though I can faintly make out of splitting of S2 at the fifth intercostal space on the left sternal border and at the right base. No S3 gallop however and S4 gallop was heard. No rubs or other murmurs. Normal carotid upstrokes and carotid volume. Carotids with no bruits bilaterally. Abdominal aorta is not palpable and there are no bruits ease. Peripheral pulses are slightly diminished bilaterally. He does have significant bilateral lower extremity edema that is 4+ up to the knees bilaterally, as well as sacral edema that extends to his mid thoracic cage and into his abdomen with pitting. Extremities: No varicosities are noted. However, he does have chronic venous stasis changes of his lower extremities. No clubbing or splinter hemorrhages are visible in the fingernails. Abdomen: Obese, protuberant and somewhat distended. Positive fluid wave. It is very difficult to palpate his liver his spleen due to the large amount of ascites present. Positive bowel sounds. Rectal exam: Not indicated. Skin: Venous stasis changes in the lower extremities bilaterally. No icterus or pallor present. Neuro: The patient is tremulous in his movements however, there is no asterixis appreciated. Mood and affect are normal. He is oriented to person, place and time. INVESTIGATIONS: EKG compared to 08/12/2018 shows underlying atrial fibrillation with ventricular pacing. Right bundle branch block with left anterior fascicular block and some PVCs. Decreased voltage in lead 2 as compared to 08/12/2018. Chest x-ray from 08/21/2018 independently reviewed shows the airway is midline, bony structures are intact with some cardiomegaly. He has Basil B lines present with. There was bibasilar atelectasis and increased pulmonary congestion present. Single lead pacemaker is present in the left anterior chest with its lead terminating in the right t ventricle unchanged from 07/12/2017. LABORATORY DATA: The patient had a mild leukocytosis on admission which is now resolved and he has a normal WBC 7.0. He is mildly anemic with hemoglobin of 9.9 and hematocrit of 34.6. Platelet count is normal. The patient is five a slight hyperkalemic with a potassium of 3.2. Sodium is 143. He has normal renal function with a BUN of 17, a creatinine of 1.03. Fasting glucose is 51. The patient has an abnormal liver profile with an elevated total bilirubin of 1.1 which was 1.4 on admission as well as an elevated alkaline phosphatase at 202. His Pro-BNP on admission was 1390. Total protein and albumin are low at 5.1 and 2.4 respectively. Blood gas done yesterday was essentially normal and his coagulation studies showed an INR 1.44. MICROBIOLOGY: Blood cultures times 2 were negative after 24 hours. OTHER IMAGING STUDIES: Vascular ultrasound was negative for DVTs bilaterally but positive for diffuse bilateral subcutaneous edema. ASSESSMENT/PLAN: 1. Heart failure (diastolic acute on chronic): The patient has biventricular congestion most likely related to dietary indiscretion and medical noncompliance. Serial evaluations of his systolic function in the past as outlined above have been normal with a well documented moderate concentric left ventricular hypertrophy as well as a prominent dilated left atrium and right heart chambers. We recommend continuing with his C-PAP and supplemental oxygen as well as a salt and 1500 mL fluid restriction. In addition to torsemide we have added spironolactone and supplemented his potassium to a total of 100 mEq today which we will anticipate will correct his problem. We will continue to follow his fluid status and chemistry closely with you. 2. Obesity / PINKY / cor pulmonale / right heart failure: As mentioned above his systemic edema appears to be worse than pulmonary congestion. 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 Continue interventions as described above in the assessment 1. 3. Cardiac cirrhosis with gross ascites: The degree of this problem is compromising his respiratory status somewhat. We have consulted IR for possible drainage and are subsequently holding his oral anticoagulation. We are bridging with Lovenox which will be held Saturday night in preparation for paracentesis. There is no evidence of hepatosplenomegaly is present at this time, the patient MELD score is only 13. We will cautiously monitor his chemistry for hypokalemia as well as metabolic alkalosis. 4. Chronic atrial fibrillation: This dates back to at least 2009 and has been attributed to chronic hypertension with AV-bucky disease. He has a controlled rate without negative chronotropic therapy. We are holding his anticoagulant preparation for paracentesis on Saturday, we will cover with Lovenox which has been dose adjusted for obesity and his gross ascites. 5. Abnormal EKG / AV block unspecified / single chamber pacemaker in situ : Despite multiple coronary risk factors and gross congestive state he does not have any signs or symptoms of myocardial ischemia. Both his EKG and clinical exam document appropriate single chamber pacemaker function. There are no signs or symptoms to suggest hemodynamically significant arrhythmias, despite having an advanced heart disease and a congested state. Thank you for your consultation. We will follow him closely with you. My faculty preceptor for this patient encounter was physically present during the encounter and was fully available. All aspects of the patient interview, examination, medical decision making process, and medical care plan development were reviewed and approved by the faculty preceptor. The faculty preceptor is aware and concurs with the plan as stated in the body of this note and will attest to such by his/her co-signature.
--- NOTE | 2018-08-22 20:05 | IPNPDOC ---
Subjective Date Seen The patient was seen on 08/22/18. Subjective Chief Complaint/HPI 73m with hx of CHF, AF, ICD, COPD, DM, PINKY on cpap, chronic back pain, gout, testicular cancer who presents with joint swelling. He was admitted for d ecompensated biventricular chf and polyarticular gout. He reports his joint pain is improved but not completely. He has noticed significant diuresis since coming to hospital. General: Reports: Normal Appetite; Denies: Chills, Night Sweats, Fatigue, Malaise Constitutional: Denies: Chills, Fever, Night Sweats Eyes: Denies: Pain, Vision change ENT: Denies: Head Aches, Ear Pain, Dysphagia Skin: Reports: Lesions Pulmonary: Denies: Dyspnea, Cough Cardiovascular: Reports: Edema; Denies: Chest Pain, Palpitations, Orthopnea, Paroxysmal Noc. Dyspnea, Lt Headedness Gastrointestinal: Denies: Nausea, Vomiting, Abdominal Pain, Diarrhea, Constipation Genitourinary: Denies: Dysuria, Frequency, Incontinence, Retention Musculoskeletal: Reports: Back Pain, Shoulder Pain, Joint Pain Neurological: Denies: Weakness, Numbness, Change in speech, Confusion Psych: Reports: Mood Normal; Denies: Depression, Memory Issues Objective Physical Examination General Exam: Positive: Alert, Cooperative, No Acute Distress Eye Exam: Positive: PERRLA, Conjunctiva & lids normal, EOMI; Negative: Sclera icteric ENT Exam: Positive: Atraumatic, Mucous membr. moist/pink, Pharynx Normal Neck Exam: Positive: Supple; Negative: JVD, thyromegaly Chest Exam: Positive: Clear to auscultation, Normal air movement Heart Exam: Positive: Rate Normal, Normal S1, Normal S2; Negative: Murmurs, Rubs Abdomen Exam: Positive: Normal bowel sounds, Soft; Negative: Tenderness, Hepatospenomegaly Extremity Exam: Positive: Tenderness, Swelling Skin Exam: Positive: Other skin issue (Tophi) Neuro Exam: Positive: Normal Gait, Normal Speech, Cranial Nerves 3-12 NL, Reflexes 2+ Psych Exam: Positive: Mental status NL, Mood NL, Oriented x 3 Assessment /Plan Assessment 73m p/w pain and swelling in multiple joints suspect polyarticular gout possibly related to diuretics improving will give second dose of colchicine hold allopurinol during acute flare chronic chf with preserved EF continue torsemide cardiology input appreciated aldactone added potassium repleted for paracentesis on saturday is/os daily weights Diabetes continue levemir fingersticks ac and hs sliding scale correction diabetic diet hypothyroid stable continue synthroid PINKY stable continue cpap Plan/VTE VTE Prophylaxis Ordered?: Yes VS, I&O, 24H, Fishbone Vital Signs/I&O Vital Signs Date Time Temp Pulse Resp B/P (MAP) Pulse Ox O2 Delivery O2 Flow Rate FiO2 08/22/18 18:00 98.0 72 19 129/87 (101) 98 2.0 08/21/18 14:16 Nasal Cannula I&O- Last 24 Hours up to 6 AM 08/22/18 06:00 Intake Total 360 ml Output Total 1275 ml Balance -915 ml Laboratory Data 24H LABS Laboratory Tests 2 08/21/18 20:30: Bedside Glucose (Misc Panel) 161H 08/22/18 06:20: Nucleated Red Blood Cells % (auto) 0.0, Anion Gap 6L, Glomerular Filtration Rate > 60.0, Blood Urea Nitrogen 17, Creatinine 1.03, Sodium Level 143, Potassium Level 3.2L, Chloride Level 110H, Carbon Dioxide Level 27, Calcium Level 7.9L, Aspartate Amino Transf (AST/SGOT) 18, Alanine Aminotransferase (ALT/SGPT) 11L, Alkaline Phosphatase 202H, Total Bilirubin 1.1H, Uric Acid 5.7, Total Protein 5.1L, Albumin 2.4L, Albumin/Globulin Ratio 0.89L 08/22/18 08:29: Bedside Glucose (Misc Panel) 72L 08/22/18 11:25: Bedside Glucose (Misc Panel) 143H 08/22/18 16:33: Bedside Glucose (Misc Panel) 146H CBC/BMP Laboratory Tests 08/22/18 06:20 Red Blood Count 4.50, Mean Corpuscular Volume 76.9 L, Mean Corpuscular Hemoglobin 22.0 L, Mean Corpuscular Hemoglobin Concent 28.6 L, Red Cell Distribution Width 19.8 H, Calcium Level 7.9 L, Aspartate Amino Transf ( T/SGOT) 18, Alanine Aminotransferase (ALT/SGPT) 11 L, Alkaline Phosphatase 202 H, Total Bilirubin 1.1 H, Uric Acid 5.7, Total Protein 5.1 L, Albumin 2.4 L Microbiology Microbiology 08/21/18 Blood Culture - Preliminary, Resulted No growth after 24 hours . All specim... 08/21/18 Blood Culture - Preliminary, Resulted No growth after 24 hours . All specim... DEWAYNE PASTOR MD Aug 22, 2018 20:05
[2018-08-22] MEDS: OMEPRAZOLE 20 MG CAP PO SCH (21:07)
[2018-08-22] MEDS: ENOXAPARIN 100MG/1ML SYRINGE (J1650) SC SCH (21:08)
[2018-08-22 22:00] VITALS: BP 107/60
[2018-08-23 00:06] LABS: Lyme Disease IgG/IgM Antibodie <0.91 ISR (0.00-0.90); Lyme Disease IgM Ab Quantitati <0.80 index (0.00-0.79)
[2018-08-23 02:00] VITALS: BP 100/53
[2018-08-23 06:00] VITALS: BP 101/52
[2018-08-23] MEDS: LEVOTHYROXINE 100MCG TABLET (0.1MG) PO SCH (06:33)
[2018-08-23] MEDS: LEVOTHYROXINE 75MCG TABLET (0.075MG) PO SCH (06:33)
[2018-08-23 06:56] LABS: BASO % 0.5 % (0.0-1.0); EOS # 0.1 10^3/uL (0.0-0.50); EOS % 1.8 % (0.0-3.0); HEMATOCRIT 33.6 % (42.0-52.0); HEMOGLOBIN 9.6 g/dl (13.5-17.5); LYMPH # 0.7 10^3/uL (1.5-4.5); LYMPH % 11.4 % (24.0-44.0); MEAN CORPUSCULAR HGB CONC 28.6 g/dl (32.0-36.5); MEAN CORPUSCULAR VOLUME 77.1 fl (80.0-96.0); MONO # 0.6 10^3/uL (0.0-0.8); MONO % 9.8 % (0.0-5.0); NEUTROPHILS # 4.6 10^3/uL (1.8-7.7); NEUTROPHILS % 76.2 % (36.0-66.0); PLATELET COUNT, AUTOMATED 202 10^3/uL (150-450); RED BLOOD COUNT 4.36 10^6/uL (4.30-6.10)
[2018-08-23 07:01] LABS: ALBUMIN 2.3 GM/DL (3.2-5.2); ALT/SGPT 13 U/L (12-78); BILIRUBIN,TOTAL 1.2 MG/DL (0.2-1.0); BLOOD UREA NITROGEN 19 MG/DL (7-18); CALCIUM LEVEL 7.9 MG/DL (8.8-10.2); CARBON DIOXIDE LEVEL 28 MEQ/L (21-32); CHLORIDE LEVEL 109 MEQ/L (98-107); GLOMERULAR FILTRATION RATE > 60.0 (>42); GLUCOSE, FASTING 137 MG/DL (70-100); MAGNESIUM LEVEL 2.1 MG/DL (1.8-2.4); SODIUM LEVEL 142 MEQ/L (136-145)
[2018-08-23] MEDS: ALLOPURINOL 300 MG TAB PO SCH (08:21)
[2018-08-23] MEDS: TORSEMIDE 20 MG TAB PO SCH ×2 (08:21→16:12)
[2018-08-23] MEDS: HumaLOG INSULIN (NovoLOG) PER UNIT SC SCH ×3 (08:21→17:30)
[2018-08-23] MEDS: ENOXAPARIN 100MG/1ML SYRINGE (J1650) SC SCH ×2 (08:21→20:15)
[2018-08-23] MEDS: SPIRONOLACTONE 25 MG TAB PO SCH ×2 (08:22→16:12)
[2018-08-23] MEDS: MAGNESIUM OXIDE 400 MG TAB (MAG-OX) PO SCH ×2 (08:22→20:15)
[2018-08-23 12:40] VITALS: BP 138/84
[2018-08-23] MEDS: VITAMIN D 1,000 INTERNATIONAL UNITS TABLET PO SCH (13:13)
[2018-08-23 14:00] VITALS: BP 103/58
--- NOTE | 2018-08-23 15:33 | IPNPDOC ---
Subjective Date Seen The patient was seen on 08/23/18. Subjective Chief Complaint/HPI 73m with hx of CHF, AF, ICD, COPD, DM, PINKY on cpap, chronic back pain, gout, testicular cancer who presents with joint swelling. He was admitted for d ecompensated biventricular chf and polyarticular gout. He had relief in some of the joints yesterday, but others mainly the right hand (MCPs) and right hip are still very bad and he did not see any improvement since yesterday with the second dose of colchicine. He did however develope diarrhea today, possibly due to the colchicine. Had an episode of nsvt while going to the bathroom. Despite voiding he notices worsening ascites. He also had a blood culture from admission come back positive for GPC in clusters and chains. No fevers or malaise. General: Reports: Normal Appetite; Denies: Chills, Night Sweats, Fatigue, Malaise Constitutional: Denies: Chills, Fever, Night Sweats Eyes: Denies: Pain, Vision change ENT: Denies: Head Aches, Ear Pain, Dysphagia Skin: Denies: Rash, Lesions, Breakdown Pulmonary: Denies: Dyspnea, Cough Cardiovascular: Reports: Edema Gastrointestinal: Reports: Diarrhea Genitourinary: Denies: Dysuria, Frequency, Incontinence, Retention Hematologic: Denies: Bruising, Bleeding Excessively Musculoskeletal: Denies: Neck Pain, Back Pain, Joint Pain, Muscle Pain, Spasms Neurological: Denies: Weakness, Numbness, Change in speech, Confusion Psych: Reports: Mood Normal; Denies: Depression, Memory Issues Objective Physical Examination General Exam: Positive: Alert, Cooperative, No Acute Distress Eye Exam: Positive: PERRLA, Conjunctiva & lids normal, EOMI; Negative: Sclera icteric ENT Exam: Positive: Atraumatic, Mucous membr. moist/pink, Pharynx Normal Neck Exam: Positive: Supple; Negative: JVD, thyromegaly Chest Exam: Positive: Clear to auscultation, Normal air movement Heart Exam: Positive: Rate Normal, Normal S1, Normal S2; Negative: Murmurs, Rubs Abdomen Exam: Positive: Normal bowel sounds, Soft, Other (distended); Negative: Tenderness, Hepatospenomegaly Extremity Exam: Positive: Tenderness, Swelling Skin Exam: Positive: Other skin issue (Tophi) Neuro Exam: Positive: Normal Gait, Normal Speech, Cranial Nerves 3-12 NL, Reflexes 2+ Psych Exam: Positive: Mental status NL, Mood NL, Oriented x 3 Assessment /Plan Assessment 73m p/w pain and swelling in multiple joints suspect polyarticular gout possibly related to diuretics persisting despite colchicine hold allopurinol during acute flare will give a dose of prednisone and monitor sugars will also send RF and CCP positive blood culture possibly contamination as there hasnt been other signs of infection however gpcs in chains could be strep or enterococcus repeat cultures, check lactic, pct, and crp low threshold to start abx if pt spikes fever, becomes tachycardic or other evidence of infection chronic chf with preserved EF continue torsemide cardiology input appreciated aldactone added potassium repleted for paracentesis on saturday is/os daily weights consider reducing torsemide and increasing spironolactone Diabetes levemir was held due to hypoglycemia insulin may need adjustment due to steroids fingersticks ac and hs sliding scale correction diabetic diet hypothyroid stable continue synthroid PINKY stable continue cpap Plan/VTE VTE Prophylaxis Ordered?: Yes VS, I&O, 24H, [facility] Vital Signs/I&O Vital Signs Date Time Temp Pulse Resp B/P (MAP) Pulse Ox O2 Delivery O2 Flow Rate FiO2 08/23/18 12:40 63 22 138/84 (102) 97 08/23/18 09:00 2.0 08/23/18 06:00 98.6 08/21/18 14:16 Nasal Cannula I&O- Last 24 Hours up to 6 AM 08/23/18 06:00 Intake Total 970 ml Output Total 2075 ml Balance -1105 ml Laboratory Data 24H LABS Laboratory Tests 2 08/22/18 16:33: Bedside Glucose (Misc Panel) 146H 08/22/18 20:31: Bedside Glucose (Misc Panel) 145H 08/23/18 06:10: Immature Granulocyte % (Auto) 0.3, White Blood Count 6.0, Red Blood Count 4.36, Hemoglobin 9.6L, Hematocrit 33.6L, Mean Corpuscular Volume 77.1L, Mean Corpuscular Hemoglobin 22.0L, Mean Corpuscular Hemoglobin Concent 28.6L, Red Cell Distribution Width 19.9H, Platelet Count 202, Neutrophils (%) (Auto) 76.2H, Lymphocytes (%) (Auto) 11.4L, Monocytes (%) (Auto) 9.8H, Eosinophils (%) (Auto) 1.8, Basophils (%) (Auto) 0.5, Neutrophils # (Auto) 4.6, Lymphocytes # (Auto) 0.7L, Monocytes # (Auto) 0.6, Eosinophils # (Auto) 0.1, Basophils # (Auto) 0.0, Nucleated Red Blood Cells % (auto) 0.0, Anion Gap 5L, Glomerular Filtration Rate > 60.0, Blood Urea Nitrogen 19H, Creatinine 1.10, Sodium Level 142, Potassium Level 4.0#, Chloride Level 109H, Carbon Dioxide Level 28, Calcium Level 7.9L, Aspartate Amino Transf (AST/SGOT) 28, Alanine Aminotransferase (ALT/SGPT) 13, Alkaline Phosphatase 206H, Total Bilirubin 1.2H, Total Protein 5.0L, Albumin 2.3L, Magnesium Level 2.1, Albumin/Globulin Ratio 0.85L 08/23/18 14:44: C-Reactive Protein, Quantitative 5.65H CBC/BMP Laboratory Tests 08/23/18 06:10 Red Blood Count 4.36, Mean Corpuscular Volume 77.1 L, Mean Corpuscular Hemoglobin 22.0 L, Mean Corpuscular Hemoglobin Concent 28.6 L, Red Cell Distribution Width 19.9 H, Neutrophils (%) (Auto) 76.2 H, Lymphocytes (%) (Auto) 11.4 L, Monocytes (%) (Auto) 9.8 H, Eosinophils (%) (Auto) 1.8, Basophils (%) (Auto) 0.5, Neutrophils # (Auto) 4.6, Lymphocytes # (Auto) 0.7 L, Monocytes # (Auto) 0.6, Eosinophils # (Auto) 0.1, Basophils # (Auto) 0.0, Calcium Level 7.9 L, Aspartate Amino Transf (AST/SGOT) 28, Alanine Aminotransferase (ALT/SGPT) 13, Alkaline Phosphatase 206 H, Total Bilirubin 1.2 H, Total Protein 5.0 L, Albumin 2.3 L Microbiology Microbiology 08/23/18 Blood Culture, Received Pending 08/21/18 Blood Culture - Preliminary, Resulted 08/21/18 Blood Culture - Preliminary, Resulted No Growth after 48 hours. All Specime... DEWAYNE PASTOR MD Aug 23, 2018 15:33
[2018-08-23] MEDS ORDERED: predniSONE 20 MG TAB PO ONE (16:00)
[2018-08-23] MEDS: OMEPRAZOLE 20 MG CAP PO SCH (20:15)
[2018-08-23 22:00] VITALS: BP 101/53
[2018-08-24 06:00] VITALS: BP 99/50
[2018-08-24] MEDS: LEVOTHYROXINE 75MCG TABLET (0.075MG) PO SCH (06:03)
[2018-08-24] MEDS: LEVOTHYROXINE 100MCG TABLET (0.1MG) PO SCH (06:03)
[2018-08-24 06:11] LABS: BASO % 0.2 % (0.0-1.0); HEMOGLOBIN 9.7 g/dl (13.5-17.5); LYMPH # 0.6 10^3/uL (1.5-4.5); MEAN CORPUSCULAR HEMOGLOBIN 22.7 pg (27.0-33.0); MEAN CORPUSCULAR HGB CONC 28.5 g/dl (32.0-36.5); MEAN CORPUSCULAR VOLUME 79.4 fl (80.0-96.0); MONO # 0.2 10^3/uL (0.0-0.8); MONO % 4.2 % (0.0-5.0); NEUTROPHILS # 4.4 10^3/uL (1.8-7.7); PLATELET COUNT, AUTOMATED 192 10^3/uL (150-450); RED BLOOD COUNT 4.28 10^6/uL (4.30-6.10); WHITE BLOOD COUNT 5.3 10^3/uL (4.0-10.0)
[2018-08-24 06:36] LABS: ALBUMIN 2.3 GM/DL (3.2-5.2); ALT/SGPT 14 U/L (12-78); BLOOD UREA NITROGEN 25 MG/DL (7-18); CALCIUM LEVEL 8.6 MG/DL (8.8-10.2); CARBON DIOXIDE LEVEL 27 MEQ/L (21-32); CHLORIDE LEVEL 108 MEQ/L (98-107); CREATININE FOR GFR 1.37 MG/DL (0.70-1.30); GLOMERULAR FILTRATION RATE 54.2 (>42); GLUCOSE, FASTING 248 MG/DL (70-100); MAGNESIUM LEVEL 2.1 MG/DL (1.8-2.4); POTASSIUM SERUM 4.3 MEQ/L (3.5-5.1); RHEUMATOID FACTOR QUANT < 10.0 IU/ML (<15.0); SODIUM LEVEL 142 MEQ/L (136-145)
[2018-08-24] MEDS: TORSEMIDE 20 MG TAB PO SCH ×2 (07:56→17:22)
[2018-08-24] MEDS: HumaLOG INSULIN (NovoLOG) PER UNIT SC SCH ×3 (07:56→17:22)
[2018-08-24] MEDS: SPIRONOLACTONE 25 MG TAB PO SCH ×2 (07:57→17:22)
[2018-08-24] MEDS: MAGNESIUM OXIDE 400 MG TAB (MAG-OX) PO SCH ×2 (07:57→21:18)
[2018-08-24] MEDS: ALLOPURINOL 300 MG TAB PO SCH (07:57)
[2018-08-24] MEDS: ENOXAPARIN 100MG/1ML SYRINGE (J1650) SC SCH (10:54)
[2018-08-24] MEDS: VITAMIN D 1,000 INTERNATIONAL UNITS TABLET PO SCH (12:50)
[2018-08-24 14:00] VITALS: BP 110/54
[2018-08-24] MEDS ORDERED: predniSONE 20 MG TAB PO ONE (14:00)
--- NOTE | 2018-08-24 15:43 | IPNPDOC ---
Subjective Date Seen The patient was seen on 08/24/18. Subjective Chief Complaint/HPI 73m with hx of CHF, AF, ICD, COPD, DM, PINKY on cpap, chronic back pain, gout, testicular cancer who presents with joint swelling. He was admitted for d ecompensated biventricular chf and polyarticular gout. He reports much more relief in his hands with great range of motion now. Ascites unchanged a full 10 pt ROS was performed and negative with the exception of what is documented above in the hpi Objective Physical Examination General Exam: Positive: Alert, Cooperative, No Acute Distress Eye Exam: Positive: PERRLA, Conjunctiva & lids normal, EOMI; Negative: Sclera icteric ENT Exam: Positive: Atraumatic, Mucous membr. moist/pink, Pharynx Normal Neck Exam: Positive: Supple; Negative: JVD, thyromegaly Chest Exam: Positive: Clear to auscultation, Normal air movement Heart Exam: Positive: Rate Normal, Normal S1, Normal S2; Negative: Murmurs, Rubs Abdomen Exam: Positive: Normal bowel sounds, Soft, Other (distended); Negative: Tenderness, Hepatospenomegaly Extremity Exam: Positive: Tenderness, Swelling Skin Exam: Positive: Other skin issue (Tophi) Neuro Exam: Positive: Normal Gait, Normal Speech, Cranial Nerves 3-12 NL, Reflexes 2+ Psych Exam: Positive: Mental status NL, Mood NL, Oriented x 3 Assessment /Plan Assessment 73m p/w pain and swelling in multiple joints suspect polyarticular gout possibly related to diuretics persisted despite colchicine hold allopurinol during acute flare improving on prednisone positive blood culture possibly contamination as there hasnt been other signs of infection however gpcs in chains could be strep or enterococcus repeat cultures, check lactic, pct, and crp low threshold to start abx if pt spikes fever, becomes tachycardic or other evidence of infection chronic chf with preserved EF continue torsemide cardiology input appreciated aldactone added potassium repleted for paracentesis on saturday is/os daily weights Diabetes levemir was held due to hypoglycemia sugars now elevated on steroids fingersticks ac and hs sliding scale correction diabetic diet hypothyroid stable continue synthroid PINKY stable continue cpap Plan/VTE VTE Prophylaxis Ordered?: Yes VS, I&O, 24H, Fishbone Vital Signs/I&O Vital Signs Date Time Temp Pulse Resp B/P (MAP) Pulse Ox O2 Delivery O2 Flow Rate FiO2 08/24/18 14:15 2.0 08/24/18 06:00 98.3 63 18 99/50 (66) 90 08/21/18 14:16 Nasal Cannula I&O- Last 24 Hours up to 6 AM 08/24/18 06:00 Intake Total 1740 ml Output Total 800 ml Balance 940 ml Laboratory Data 24H LABS Laboratory Tests 2 08/23/18 19:10: Lactic Acid Followup at 4 Hours 2.0 08/23/18 21:08: Bedside Glucose (Misc Panel) 234H 08/24/18 05:48: Immature Granulocyte % (Auto) 0.6, White Blood Count 5.3, Red Blood Count 4.28L, Hemoglobin 9.7L, Hematocrit 34.0L, Mean Corpuscular Volume 79.4L, Mean Corpuscular Hemoglobin 22.7L, Mean Corpuscular Hemoglobin Concent 28.5L, Red Cell Distribution Width 19.9H, Platelet Count 192, Neutrophils (%) (Auto) 84.0H, Lymphocytes (%) (Auto) 11.0L, Monocytes (%) (Auto) 4.2, Eosinophils (%) (Auto) 0.0, Basophils (%) (Auto) 0.2, Neutrophils # (Auto) 4.4, Lymphocytes # (Auto) 0.6L, Monocytes # (Auto) 0.2, Eosinophils # (Auto) 0.0, Basophils # (Auto) 0.0, Nucleated Red Blood Cells % (auto) 0.0, Anion Gap 7L, Glomerular Filtration Rate 54.2, Blood Urea Nitrogen 25H, Creatinine 1.37H, Sodium Level 142, Potassium Level 4.3, Chloride Level 108H, Carbon Dioxide Level 27, Calcium Level 8.6L, Aspartate Amino Transf (AST/SGOT) 23, Alanine Aminotransferase (ALT/SGPT) 14, Alkaline Phosphatase 222H, Total Bilirubin 1.0, Total Protein 5.0L, Albumin 2.3L, Magnesium Level 2.1, Albumin/Globulin Ratio 0.85L, Rheumatoid Factor < 10.0 08/24/18 11:54: Bedside Glucose (Misc Panel) 198H CBC/BMP Laboratory Tests 08/24/18 05:48 Red Blood Count 4.28 L, Mean Corpuscular Volume 79.4 L, Mean Corpuscular Hemoglobin 22.7 L, Mean Corpuscular Hemoglobin Concent 28.5 L, Red Cell D istribution Width 19.9 H, Neutrophils (%) (Auto) 84.0 H, Lymphocytes (%) (Auto) 11.0 L, Monocytes (%) (Auto) 4.2, Eosinophils (%) (Auto) 0.0, Basophils (%) (Auto) 0.2, Neutrophils # (Auto) 4.4, Lymphocytes # (Auto) 0.6 L, Monocytes # (Auto) 0.2, Eosinophils # (Auto) 0.0, Basophils # (Auto) 0.0, Calcium Level 8.6 L, Aspartate Amino Transf (AST/SGOT) 23, Alanine Aminotransferase (ALT/SGPT) 14, Alkaline Phosphatase 222 H, Total Bilirubin 1.0, Total Protein 5.0 L, Albumin 2.3 L Microbiology Microbiology 08/23/18 Blood Culture - Preliminary, Resulted No growth after 24 hours . All specim... 08/21/18 Blood Culture - Preliminary, Resulted 08/21/18 Blood Culture - Preliminary, Resulted No Growth after 72 hours. All specime... DEWAYNE PASTOR MD Aug 24, 2018 15:43
[2018-08-24] MEDS ORDERED: predniSONE 10 MG TAB PO ONE (17:00)
[2018-08-24] MEDS: OMEPRAZOLE 20 MG CAP PO SCH (21:18)
[2018-08-24 22:00] VITALS: BP 110/69
[2018-08-25 06:00] VITALS: BP 116/68
[2018-08-25 06:14] LABS: BASO % 0.1 % (0.0-1.0); HEMATOCRIT 36.2 % (42.0-52.0); HEMOGLOBIN 10.6 g/dl (13.5-17.5); LYMPH # 0.8 10^3/uL (1.5-4.5); LYMPH % 6.6 % (24.0-44.0); MEAN CORPUSCULAR HEMOGLOBIN 22.9 pg (27.0-33.0); MEAN CORPUSCULAR HGB CONC 29.3 g/dl (32.0-36.5); MEAN CORPUSCULAR VOLUME 78.2 fl (80.0-96.0); MONO # 0.5 10^3/uL (0.0-0.8); NEUTROPHILS # 10.3 10^3/uL (1.8-7.7); NEUTROPHILS % 88.5 % (36.0-66.0); PLATELET COUNT, AUTOMATED 241 10^3/uL (150-450); RED BLOOD COUNT 4.63 10^6/uL (4.30-6.10); WHITE BLOOD COUNT 11.6 10^3/uL (4.0-10.0)
[2018-08-25 06:18] LABS: INR 1.2; PROTHROMBIN TIME 14.9 SECONDS (11.8-14.0)
[2018-08-25] MEDS: LEVOTHYROXINE 75MCG TABLET (0.075MG) PO SCH (06:19)
[2018-08-25] MEDS: LEVOTHYROXINE 100MCG TABLET (0.1MG) PO SCH (06:20)
[2018-08-25 06:48] LABS: ALBUMIN 2.8 GM/DL (3.2-5.2); BILIRUBIN,TOTAL 1.2 MG/DL (0.2-1.0); CALCIUM LEVEL 8.3 MG/DL (8.8-10.2); CREATININE FOR GFR 1.31 MG/DL (0.70-1.30); GLOMERULAR FILTRATION RATE 57.1 (>42); POTASSIUM SERUM 4.3 MEQ/L (3.5-5.1); TOTAL PROTEIN 5.5 GM/DL (6.4-8.2)
--- NOTE | 2018-08-25 06:48 | IPN ---
DATE OF SERVICE: 08/24/2018 Mr. Leland Bassett was seen earlier today, he was sitting up in bed in no acute distress at rest. He stated he feels better but not quite up to par. He has no shortness of breath at rest and he denies any palpitations. He stated that he has some pedal edema has slightly improved and his arthritic also has improved. He denies any bleeding. He has no focal manifestation. He was initially admitted on 08/21/2018 with diastolic heart failure, increased ascites. The immediate plan is to proceed with paracentesis on 08/25/2018. He is being covered by Lovenox and this was discontinued earlier today. PHYSICAL EXAMINATION: The patient is alert and oriented, in no acute distress at rest. His most recent vital signs revealed a blood pressure of 110/54 with a pulse of 64, respirations 16-18, and his maximum temperature is 99.4 degrees Fahrenheit last evening with an oxygen saturation of 98% on 2 liters cannula. He has a negative fluid balance of 960 mL for 08/22/2018 and for 08/23/2018 he had a positive fluid balance of 640 mL. Examination of the head: Atraumatic. Neck is supple with extended jugular. Lungs did not reveal any wheezing, minimal crackles noted at the bases. The heart examination revealed an irregular heart sound without gallops. The PMI is not displaced. There is no rub. Abdomen is protuberant. I did not assess for ascites. Extremities revealed +1 to +2 bilateral lower leg edema. Neurologic examination is negative for focal deficit. LABORATORY DATA: CBC revealed a WBC of 5.3, hemoglobin 9.7, hematocrit 34.0 and platelet 192,000. BMP revealed a sodium of 142, potassium 4.3, chloride 108, CO2 27, BUN 25, creatinine 1.37, GFR 54.2 fasting glucose 248 and calcium 8.6. Liver enzymes revealed an AST of 23 and ALT of 14. Alkaline phosphatase 222. Total protein is 5.0 with an albumin of 2.3. PT on admission was 17.3 with an INR of 1.44. IMPRESSION: 1. Congestive heart failure, diastolic in nature. Complicated by cardiac cirrhosis. 2. History of atrial fibrillation, chronic and persistent. 3. Hypertension. 4. History of hypothyroidism. 5. Diabetes mellitus. 6. Gout with exacerbation. 7. History of COPD. 8. Obesity and sleep apnea. Mr. Leland Bassett is stable from a cardiac point of view and the immediate plan is to proceed with paracentesis, scheduled for 08/25/2018. His Lovenox is on hold for tonight, it was discontinued. Hopefully after the paracentesis he will get better. His gout is improving slowly. His major concern a hydrocele he has and he would like to have it checked while in the hospital, this will be discussed with Dr. Wyman. He will see him tomorrow 08/25/2018. JAIMIE
[2018-08-25] MEDS: HumaLOG INSULIN (NovoLOG) PER UNIT SC SCH ×5 (08:59→18:14)
[2018-08-25] MEDS: TORSEMIDE 20 MG TAB PO SCH ×2 (08:59→18:15)
[2018-08-25] MEDS: SPIRONOLACTONE 25 MG TAB PO SCH ×2 (08:59→18:15)
[2018-08-25] MEDS: ALLOPURINOL 300 MG TAB PO SCH (08:59)
[2018-08-25] MEDS: MAGNESIUM OXIDE 400 MG TAB (MAG-OX) PO SCH ×2 (09:00→21:42)
[2018-08-25] MEDS: VITAMIN D 1,000 INTERNATIONAL UNITS TABLET PO SCH (12:28)
[2018-08-25 14:00] VITALS: BP 109/54
--- NOTE | 2018-08-25 18:42 | IPNPDOC ---
Subjective Date Seen The patient was seen on 08/25/18. Subjective Chief Complaint/HPI 73m with hx of CHF, AF, ICD, COPD, DM, PINKY on cpap, chronic back pain, gout, testicular cancer who presents with joint swelling. He was admitted for de compensated biventricular chf and polyarticular gout. he has some remaining arthritis in his second and third digit on both hands. Otherwise reports complete relief in elbows, shoulders, neck, and ankles. had nearly 10 liters removed from abdomen. Feels much better a full 10 pt ROS was performed and negative with the exception of what is documented above in the hpi Objective Physical Examination General Exam: Positive: Alert, Cooperative, No Acute Distress Eye Exam: Positive: PERRLA, Conjunctiva & lids normal, EOMI; Negative: Sclera icteric ENT Exam: Positive: Atraumatic, Mucous membr. moist/pink, Pharynx Normal Neck Exam: Positive: Supple; Negative: JVD, thyromegaly Chest Exam: Positive: Clear to auscultation, Normal air movement Heart Exam: Positive: Rate Normal, Normal S1, Normal S2; Negative: Murmurs, Rubs Abdomen Exam: Positive: Normal bowel sounds, Soft; Negative: Tenderness, Hepatospenomegaly Extremity Exam: Positive: Tenderness, Swelling Skin Exam: Positive: Other skin issue (Tophi) Neuro Exam: Positive: Normal Gait, Normal Speech, Cranial Nerves 3-12 NL, Reflexes 2+ Psych Exam: Positive: Mental status NL, Mood NL, Oriented x 3 Assessment /Plan Assessment 73m p/w pain and swelling in multiple joints polyarticular gout due to diuretics persisted despite colchicine hold allopurinol during acute flare improving on prednisone positive blood culture possibly contamination as there hasnt been other signs of infection await final culture chronic chf with preserved EF continue torsemide cardiology input appreciated aldactone added ascites greatly improved after paracentesis is/os daily weights Diabetes resume basal bolus due to hyperglycemia sugars now elevated on steroids fingersticks ac and hs sliding scale correction diabetic diet hypothyroid stable continue synthroid PINKY stable continue cpap anticipate dc in next day or two Plan/VTE VTE Prophylaxis Ordered?: Yes VS, I&O, 24H, Fishbone Vital Signs/I&O Vital Signs Date Time Temp Pulse Resp B/P (MAP) Pulse Ox O2 Delivery O2 Flow Rate FiO2 08/25/18 14:00 98.2 64 18 109/54 (72) 96 2.0 08/21/18 14:16 Nasal Cannula I&O- Last 24 Hours up to 6 AM 08/25/18 06:00 Intake Total 1540 ml Output Total 1900 ml Balance -360 ml Laboratory Data 24H LABS Laboratory Tests 2 08/24/18 20:08: Bedside Glucose (Misc Panel) 294H 08/25/18 05:50: Immature Granulocyte % (Auto) 0.8, White Blood Count 11.6H, Red Blood Count 4.63, Hemoglobin 10.6L, Hematocrit 36.2L, Mean Corpuscular Volume 78.2L, Mean Corpuscular Hemoglobin 22.9L, Mean Corpuscular Hemoglobin Concent 29.3L, Red Cell Distribution Width 20.0H, Platelet Count 241, Neutrophils (%) (Auto) 88.5H, Lymphocytes (%) (Auto) 6.6L, Monocytes (%) (Auto) 4.0, Eosinophils (%) (Auto) 0.0, Basophils (%) (Auto) 0.1, Neutrophils # (Auto) 10.3H, Lymphocytes # (Auto) 0.8L, Monocytes # (Auto) 0.5, Eosinophils # (Auto) 0.0, Basophils # (Auto) 0.0, Nucleated Red Blood Cells % (auto) 0.0, Prothrombin Time 14.9H, Prothromb Time International Ratio 1.20, Anion Gap 9, Glomerular Filtration Rate 57.1, Blood Urea Nitrogen 32H, Creatinine 1.31H, Sodium Level 143, Potassium Level 4.3, Chloride Level 108H, Carbon Dioxide Level 26, Calcium Level 8.3L, Aspartate Amino Transf (AST/SGOT) 28, Alanine Aminotransferase (ALT/SGPT) 20, Alkaline Phosphatase 268H, Total Bilirubin 1.2H, Total Protein 5.5L, Albumin 2.8#L, Albumin/Globulin Ratio 1.04 08/25/18 11:47: Bedside Glucose (Misc Panel) 211H 08/25/18 17:25: Bedside Glucose (Misc Panel) 227H CBC/BMP Laboratory Tests 08/25/18 05:50 Red Blood Count 4.63, Mean Corpuscular Volume 78.2 L, Mean Corpuscular Hemoglobin 22.9 L, Mean Corpuscular Hemoglobin Concent 29.3 L, Red Cell Distribution Width 20.0 H, Neutrophils (%) (Auto) 88.5 H, Lymphocytes (%) (Auto) 6.6 L, Monocytes (%) (Auto) 4.0, Eosinophils (%) (Auto) 0.0, Basophils (%) (Aut o) 0.1, Neutrophils # (Auto) 10.3 H, Lymphocytes # (Auto) 0.8 L, Monocytes # (Auto) 0.5, Eosinophils # (Auto) 0.0, Basophils # (Auto) 0.0, Calcium Level 8.3 L, Aspartate Amino Transf (AST/SGOT) 28, Alanine Aminotransferase (ALT/SGPT) 20, Alkaline Phosphatase 268 H, Total Bilirubin 1.2 H, Total Protein 5.5 L, Albumin 2.8 #L Microbiology Microbiology 08/23/18 Blood Culture - Preliminary, Resulted No Growth after 48 hours. All Specime... 08/21/18 Blood Culture - Preliminary, Resulted 08/21/18 Blood Culture - Preliminary, Resulted No Growth after 72 hours. All specime... DEWAYNE PASTOR MD Aug 25, 2018 18:42
--- NOTE | 2018-08-25 20:46 | IPN ---
CARDIOLOGY PROGRESS NOTE DATE: 08/25/2018 SUBJECTIVE: The patient underwent paracentesis drainage of some 12 liters of fluid earlier this morning and tolerated this procedure well. Currently has no discomfort. Reporting some drainage from the paracentesis site, but has an intact OpSite dressing. Feels his breathing has significantly improved. Has been up in his room without lightheadedness or faintness. OBJECTIVE: Obese, barrel-chested, elderly male clearly breathing much easier than when I saw him last, on August 22, 2018. Current heart rate 78 beats per minute and irregular, blood pressure 92/58 sitting with legs dependent, respiratory rate 18, oxygen saturation 96% on supplemental oxygen by nasal prongs at 2 liters. Neck veins currently not visible 2 cm above the clavicle with him sitting. Increased anteroposterior chest diameter with reduced chest excursion. She still has bibasilar inspiratory crepitations, but no wheezes. Still has significant edema of both lower extremities and sacrum, but this is considerably improved. His abdomen has dramatically decreased in size. INVESTIGATIONS: Blood work today prior to his procedure showed a hemoglobin of 10.6. His white blood cell count had increased to 11.6, platelet count was normal. His PT/INR this morning was 14.9/1.2 off oral anticoagulation. Chemistry today showed electrolyte balance with albumin 2.8, BUN has increased from 16 to 32 and creatinine has increased from 1.1 to 1.3. IMPRESSION/PLAN: 1. Heart failure (diastolic): With combination of diuretic therapy and his paracentesis, respiration has significantly improved. Still has subtle bibasilar inspiratory rales. A followup chest x-ray will be obtained in the morning. Could emphasize the importance of continued modest salt and fluid intake restriction, but given his prerenal azotemia and impressive acidic fluid removal earlier today with his present with his blood pressure, I have elected to withhold his torsemide at least temporarily. He will remain on spironolactone. Followup chemistry is scheduled for the morning. 2. Obesity/obstructive sleep apnea (PINKY)/cor pulmonale/right heart failure: As mentioned, this is significantly improved with the above measures. 3. Cardiac cirrhosis/gross ascites: Impressively improved with paracentesis. We plan to resume his Pradaxa tomorrow morning. Remains free of any sign of metabolic encephalopathy. 4. Chronic atrial fibrillation: Remains controlled without negative chronotropic therapy. As mentioned, intend to resume his Pradaxa tomorrow. 5. Abnormal EKG/atrioventricular (AV) block/single chamber pacemaker in situ: Has remained free of symptomatic arrhythmia or symptoms to suggest myocardial ischemia. I suspect he may require intermittent paracentesis in the future, as his cirrhotic process is not reversible. They should monitor him at least temporarily in light of the significant fluid removal and the possibility of shifting fluid from his systemic circulation back into his abdomen. At his request, because of a history of prior testicular cancer and scrotal lesion, a urology consultation has been placed. We will continue to follow him with you and appreciate the opportunity to participate in his care.
[2018-08-25] MEDS: OMEPRAZOLE 20 MG CAP PO SCH (21:42)
[2018-08-25] MEDS: LEVEMIR (INSULIN DETEMIR) 1 UNITS/0.01ML SC SCH (21:42)
[2018-08-25 22:00] VITALS: BP 88/48
[2018-08-25 23:07] VITALS: BP 89/46
[2018-08-26 02:00] VITALS: BP 93/64
[2018-08-26 02:17] VITALS: BP 93/64
[2018-08-26 06:00] VITALS: BP 97/64
[2018-08-26] MEDS: LEVOTHYROXINE 100MCG TABLET (0.1MG) PO SCH (06:06)
[2018-08-26] MEDS: LEVOTHYROXINE 75MCG TABLET (0.075MG) PO SCH (06:06)
[2018-08-26 06:17] LABS: BASO % 0.2 % (0.0-1.0); EOS % 0.5 % (0.0-3.0); HEMATOCRIT 35.7 % (42.0-52.0); HEMOGLOBIN 10.4 g/dl (13.5-17.5); LYMPH # 1.2 10^3/uL (1.5-4.5); LYMPH % 14.2 % (24.0-44.0); MEAN CORPUSCULAR HEMOGLOBIN 22.7 pg (27.0-33.0); MEAN CORPUSCULAR HGB CONC 29.1 g/dl (32.0-36.5); MEAN CORPUSCULAR VOLUME 77.8 fl (80.0-96.0); MONO # 0.5 10^3/uL (0.0-0.8); MONO % 5.7 % (0.0-5.0); NEUTROPHILS # 6.7 10^3/uL (1.8-7.7); NEUTROPHILS % 78.8 % (36.0-66.0); PLATELET COUNT, AUTOMATED 206 10^3/uL (150-450); RED BLOOD COUNT 4.59 10^6/uL (4.30-6.10); WHITE BLOOD COUNT 8.5 10^3/uL (4.0-10.0)
[2018-08-26 06:47] LABS: BLOOD UREA NITROGEN 30 MG/DL (7-18); CALCIUM LEVEL 7.9 MG/DL (8.8-10.2); CARBON DIOXIDE LEVEL 29 MEQ/L (21-32); CHLORIDE LEVEL 109 MEQ/L (98-107); CREATININE FOR GFR 1.04 MG/DL (0.70-1.30); GLOMERULAR FILTRATION RATE > 60.0 (>42); GLUCOSE, FASTING 141 MG/DL (70-100); MAGNESIUM LEVEL 2.1 MG/DL (1.8-2.4); POTASSIUM SERUM 3.4 MEQ/L (3.5-5.1); SODIUM LEVEL 146 MEQ/L (136-145)
--- NOTE | 2018-08-26 08:13 | REP ---
Clinical: Follow up CHF. Comparison: 08/21/2018, 07/12/2017 . Findings: Mediastinum and cardiac silhouette are stable. Lung newman demonstrate chronic-appearing interstitial changes primarily noted at the lung bases and costophrenic angles. No new acute process identified. Skeletal structures intact. Impression: Subtle bibasilar findings at the costophrenic angles suggest chronic change and remain stable compared to 07/12. Electronically Signed by Aric Montes MD 08/26/2018 08:05 A
[2018-08-26] MEDS: HumaLOG INSULIN (NovoLOG) PER UNIT SC SCH ×6 (08:17→17:26)
[2018-08-26] MEDS: MAGNESIUM OXIDE 400 MG TAB (MAG-OX) PO SCH ×2 (08:18→20:21)
[2018-08-26] MEDS: ALLOPURINOL 300 MG TAB PO SCH (08:18)
[2018-08-26] MEDS: SPIRONOLACTONE 25 MG TAB PO SCH ×2 (08:18→17:26)
--- NOTE | 2018-08-26 11:47 | REP ---
Ultrasound-guided paracentesis The procedure was performed by ANTHONY Landa, under the direct supervision of Dr. Andino. The risks and benefits of the procedure were explained to the patient and informed consent was obtained both verbally and written. Directly prior to the start of the procedure, a formal timeout was completed in the procedure room. Under ultrasound guidance, the largest pocket of fluid in the right flank was localized and skin was marked. The skin was then prepped and draped in a sterile fashion. 10 ml of 1% lidocaine was used as a local anesthetic. Using ultrasound guidance, an 8-Gambian multi side-hole catheter was inserted using trocar technique. 9,500 mL of clear yellow colored fluid was withdrawn and discarded. The patient tolerated the procedure well and there were no immediate complications. After the appropriate monitored convalescence the patient was discharged from the department. Reviewed by ANTHONY Lara 08/25/2018 05:09 P Electronically Signed by Jason Andino MD 08/26/2018 11:39 A
[2018-08-26] MEDS: VITAMIN D 1,000 INTERNATIONAL UNITS TABLET PO SCH (11:54)
[2018-08-26 14:00] VITALS: BP 102/68
[2018-08-26] MEDS ORDERED: POTASSIUM CHLORIDE 10 MEQ SR TABLET PO ONE ×2 (19:15→22:00)
--- NOTE | 2018-08-26 19:22 | IPNPDOC ---
Subjective Date Seen The patient was seen on 08/26/18. Subjective Chief Complaint/HPI 73m with hx of CHF, AF, ICD, COPD, DM, PINKY on cpap, chronic back pain, gout, testicular cancer who presents with joint swelling. He was admitted for de compensated biventricular chf and polyarticular gout. gout almost completely resolved, ascites much better, pt reports he feels great, he is ambulating and asymptomatic. However his bps have been very low since last night. Likely due to the large volume paracentesis. a full 10 pt ROS was performed and negative with the exception of what is documented above in the hpi Objective Physical Examination General Exam: Positive: Alert, Cooperative, No Acute Distress Eye Exam: Positive: PERRLA, Conjunctiva & lids normal, EOMI ENT Exam: Positive: Atraumatic, Mucous membr. moist/pink, Pharynx Normal Neck Exam: Positive: Supple Chest Exam: Positive: Clear to auscultation, Normal air movement Heart Exam: Positive: Rate Normal, Normal S1, Normal S2 Abdomen Exam: Positive: Normal bowel sounds, Soft Extremity Exam: Positive: Tenderness, Swelling Skin Exam: Positive: Other skin issue Neuro Exam: Positive: Normal Gait, Normal Speech, Cranial Nerves 3-12 NL, Reflexes 2+ Psych Exam: Positive: Mental status NL, Mood NL, Oriented x 3 Assessment /Plan Assessment 73m p/w pain and swelling in multiple joints polyarticular gout due to diuretics persisted despite colchicine hold allopurinol during acute flare improved on prednisone hypotension hypovolemic after LVP without pretreatment with albumin albumin was ordered today but pt was hesitant to consent for it bp improved from 80s to 100s will hold off for now positive blood culture micrococcus known skin contaminant no evidence of infection chronic chf with preserved EF continue torsemide cardiology input appreciated aldactone added ascites greatly improved after paracentesis is/os daily weights Diabetes resume basal bolus due to hyperglycemia sugars now elevated on steroids fingersticks ac and hs sliding scale correction diabetic diet hypothyroid stable continue synthroid PINKY stable continue cpap anticipate dc tomorrow Plan/VTE VTE Prophylaxis Ordered?: Yes VS, I&O, 24H, Fishbone Vital Signs/I&O Vital Signs Date Time Temp Pulse Resp B/P (MAP) Pulse Ox O2 Delivery O2 Flow Rate FiO2 08/26/18 14:00 97.7 71 20 102/68 (79) 96 2.0 08/21/18 14:16 Nasal Cannula I&O- Last 24 Hours up to 6 AM 08/26/18 06:00 Intake Total 1140 ml Output Total 2095 ml Balance -955 ml Laboratory Data 24H LABS Laboratory Tests 2 08/26/18 05:39: Immature Granulocyte % (Auto) 0.6, White Blood Count 8.5, Red Blood Count 4.59, Hemoglobin 10.4L, Hematocrit 35.7L, Mean Corpuscular Volume 77.8L, Mean Corpuscular Hemoglobin 22.7L, Mean Corpuscular Hemoglobin Concent 29.1L, Red Cell Distribution Width 20.2H, Platelet Count 206, Neutrophils (%) (Auto) 78.8H, Lymphocytes (%) (Auto) 14.2L, Monocytes (%) (Auto) 5.7H, Eosinophils (%) (Auto) 0.5, Basophils (%) (Auto) 0.2, Neutrophils # (Auto) 6.7, Lymphocytes # (Auto) 1.2L, Monocytes # (Auto) 0.5, Eosinophils # (Auto) 0.0, Basophils # (Auto) 0.0, Nucleated Red Blood Cells % (auto) 0.0, Anion Gap 8, Glomerular Filtration Rate > 60.0, Blood Urea Nitrogen 30H, Creatinine 1.04, Sodium Level 146H, Potassium Level 3.4#L, Chloride Level 109H, Carbon Dioxide Level 29, Calcium Level 7.9L, Magnesium Level 2.1 08/26/18 11:40: Bedside Glucose (Misc Panel) 171H 08/26/18 17:03: Bedside Glucose (Misc Panel) 233H CBC/BMP Laboratory Tests 08/26/18 05:39 Red Blood Count 4.59, Mean Corpuscular Volume 77.8 L, Mean Corpuscular Hemoglobin 22.7 L, Mean Corpuscular Hemoglobin Concent 29.1 L, Red Cell Distribution Width 20.2 H, Neutrophils (%) (Auto) 78.8 H, Lymphocytes (%) (Auto) 14.2 L, Monocytes (%) (Auto) 5.7 H, Eosinophils (%) (Auto) 0.5, Basophils (%) (Auto) 0.2, Neutrophils # (Auto) 6.7, Lymphocytes # (Auto) 1.2 L, Monocytes # (Auto) 0.5, Eosinophils # (Auto) 0.0, Basophils # (Auto) 0.0, Calcium Level 7.9 L Microbiology Microbiology 08/23/18 Blood Culture - Preliminary, Resulted No Growth after 72 hours. All specime... 08/21/18 Blood Culture - Final, Complete Micrococcus Species 08/21/18 Blood Culture - Final, Complete NO GROWTH AFTER 5 DAYS DEWAYNE PASTOR MD Aug 26, 2018 19:22
--- NOTE | 2018-08-26 19:41 | IPN ---
DATE: 08/26/2018 CARDIOLOGY PROGRESS NOTE SUBJECTIVE: Claims to feel terrific, having lost a huge amount of ascitic fluid yesterday. Has been up ambulating in the angelo with assistance at least three times without shortness of breath. Denies lightheadedness. Had been having some lower blood pressures last evening following his paracentesis. Remains free of any chest discomfort and unaware of his heart action. Is very happy with his reduced lower leg swelling. OBJECTIVE: Obese, barrel-chested, bright, elderly male, lying virtually flat without dyspnea. Heart rate 82 beats per minute and irregular, blood pressure 96 by pulse with him sitting. Respiratory rate 18 with oxygen saturation 97% on supplemental oxygen by nasal prongs. Afebrile. Weight was not recorded today. Neck veins were at the level of the sternal angle with him sitting. Considerable improvement in lower leg swelling, as mentioned. INVESTIGATIONS: Blood work today shows a hemoglobin that is stable at 10.4. Normal white blood cell count and platelet count. His serum potassium this morning was 3.4, and serum sodium was slightly increased at 146. Calcium is slightly low at 7.9 with his low albumin level. BUN essentially stable. Creatinine has improved to 1.0. Fasting glucose improved at 141 this morning. IMPRESSION/PLAN: 1. Heart failure (diastolic): As mentioned significantly improved effort tolerance. Still has some systemic edema, but this has improved. I have withheld his loop diuretic, suspecting that he will be transferring some systemic fluid back into his abdominal cavity. Despite his spironolactone, his potassium did drop. I have ordered potassium chloride 40 mEq by mouth for two doses today. We will follow his chemistry with blood work tomorrow morning. For the time being, his torsemide will continue on hold. 2. Obesity/obstructive sleep apnea/cor pulmonale/heart failure: As mentioned above. 3. Cardiac serosa/gross ascites: As mentioned, dramatically improved. He feels so much better. Remains free of sign of metabolic encephalopathy. 4. Chronic atrial fibrillation: Heart rate remains controlled. We plan to resume his Pradaxa tonight. 5. Abnormal EKG/atrioventricular (AV) block/pacemaker in situ: Has been free of symptomatic arrhythmia or signs of myocardial ischemia. Ambulating in the angelo. I am cautiously optimistic that we will be able to look forward to his discharge tomorrow afternoon, pending blood work in the morning. BONNIED
[2018-08-26] MEDS: DABIGATRAN ETEXILATE 75 MG CAP (PRADAXA) PO SCH (20:21)
[2018-08-26] MEDS: OMEPRAZOLE 20 MG CAP PO SCH (20:21)
[2018-08-26] MEDS: LEVEMIR (INSULIN DETEMIR) 1 UNITS/0.01ML SC SCH (21:00)
[2018-08-26 22:00] VITALS: BP 121/70
[2018-08-27 04:00] VITALS: BP 104/62
[2018-08-27] MEDS: LEVOTHYROXINE 75MCG TABLET (0.075MG) PO SCH (06:44)
[2018-08-27] MEDS: LEVOTHYROXINE 100MCG TABLET (0.1MG) PO SCH (06:44)
[2018-08-27 06:45] LABS: BASO % 0.4 % (0.0-1.0); EOS # 0.1 10^3/uL (0.0-0.50); EOS % 1.4 % (0.0-3.0); HEMATOCRIT 36.8 % (42.0-52.0); HEMOGLOBIN 10.7 g/dl (13.5-17.5); LYMPH # 1.1 10^3/uL (1.5-4.5); LYMPH % 14.8 % (24.0-44.0); MEAN CORPUSCULAR HEMOGLOBIN 22.6 pg (27.0-33.0); MEAN CORPUSCULAR HGB CONC 29.1 g/dl (32.0-36.5); MEAN CORPUSCULAR VOLUME 77.8 fl (80.0-96.0); MONO # 0.5 10^3/uL (0.0-0.8); MONO % 6.2 % (0.0-5.0); NEUTROPHILS # 5.8 10^3/uL (1.8-7.7); NEUTROPHILS % 76.7 % (36.0-66.0); PLATELET COUNT, AUTOMATED 211 10^3/uL (150-450); RED BLOOD COUNT 4.73 10^6/uL (4.30-6.10); WHITE BLOOD COUNT 7.6 10^3/uL (4.0-10.0)
[2018-08-27 07:12] LABS: BLOOD UREA NITROGEN 32 MG/DL (7-18); CALCIUM LEVEL 7.8 MG/DL (8.8-10.2); CARBON DIOXIDE LEVEL 26 MEQ/L (21-32); CHLORIDE LEVEL 110 MEQ/L (98-107); GLOMERULAR FILTRATION RATE > 60.0 (>42); GLUCOSE, FASTING 140 MG/DL (70-100); POTASSIUM SERUM 4.1 MEQ/L (3.5-5.1); SODIUM LEVEL 144 MEQ/L (136-145)
[2018-08-27] MEDS: HumaLOG INSULIN (NovoLOG) PER UNIT SC SCH ×4 (07:42→12:12)
[2018-08-27] MEDS: MAGNESIUM OXIDE 400 MG TAB (MAG-OX) PO SCH (07:43)
[2018-08-27] MEDS: SPIRONOLACTONE 25 MG TAB PO SCH (07:43)
[2018-08-27] MEDS: DABIGATRAN ETEXILATE 75 MG CAP (PRADAXA) PO SCH (07:43)
[2018-08-27] MEDS: ALLOPURINOL 300 MG TAB PO SCH (07:43)
[2018-08-27] MEDS ORDERED: TORS20TA2 PO (11:23)
[2018-08-27] MEDS ORDERED: SPIR-10 PO (11:31)
[2018-08-27] MEDS: VITAMIN D 1,000 INTERNATIONAL UNITS TABLET PO SCH (12:12)
--- NOTE | 2018-08-30 21:34 | DS.PDOC ---
Discharge Summary General Date of Admission Aug 21, 2018 at 13:22 Date of Discharge August 27, 2018 Specialist/Consultants Involve: MATT FLORES DO Specialist/Consultants Involve Cardiology Consult: ASSESSMENT/PLAN: 1. Heart failure (diastolic acute on chronic): The patient has biventricular congestion most likely related to dietary indiscretion and medical noncompliance. Serial evaluations of his systolic function in the past as outlined above have been normal with a well documented moderate concentric left ventricular hypertrophy as well as a prominent dilated left atrium and right heart chambers. We recommend continuing with his C-PAP and supplemental oxygen as well as a salt and 1500 mL fluid restriction. In addition to torsemide we have added spironolactone and supplemented his potassium to a total of 100 mEq today which we will anticipate will correct his problem. We will continue to follow his fluid status and chemistry closely with you. 2. Obesity / PINKY / cor pulmonale / right heart failure: As mentioned above his systemic edema appears to be worse than pulmonary congestion. 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 Continue interventions as described above in the assessment 1. 3. Cardiac cirrhosis with gross ascites: The degree of this problem is compromising his respiratory status somewhat. We have consulted IR for possible drainage and are subsequently holding his oral anticoagulation. We are bridging with Lovenox which will be held Saturday night in preparation for paracentesis. There is no evidence of hepatosplenomegaly is present at this time, the patient MELD score is only 13. We will cautiously monitor his chemistry for hypokalemia as well as metabolic alkalosis. 4. Chronic atrial fibrillation: This dates back to at least 2009 and has been attributed to chronic hypertension with AV-bucky disease. He has a controlled rate without negative chronotropic therapy. We are holding his anticoagulant preparation for paracentesis on Saturday, we will cover with Lovenox which has been dose adjusted for obesity and his gross ascites. 5. Abnormal EKG / AV block unspecified / single chamber pacemaker in situ : Despite multiple coronary risk factors and gross congestive state he does not have any signs or symptoms of myocardial ischemia. Both his EKG and clinical exam document appropriate single chamber pacemaker function. There are no signs or symptoms to suggest hemodynamically significant arrhythmias, despite having an advanced heart disease and a congested state. CARDIOLOGY PROGRESS NOTE SUBJECTIVE: Claims to feel terrific, having lost a huge amount of ascitic fluid yesterday. Has been up ambulating in the angelo with assistance at least three times without shortness of breath. Denies lightheadedness. Had been having some lower blood pressures last evening following his paracentesis. Remains free of any chest discomfort and unaware of his heart action. Is very happy with his reduced lower leg swelling. OBJECTIVE: Obese, barrel-chested, bright, elderly male, lying virtually flat without dyspnea. Heart rate 82 beats per minute and irregular, blood pressure 96 by pulse with him sitting. Respiratory rate 18 with oxygen saturation 97% on supplemental oxygen by nasal prongs. Afebrile. Weight was not recorded today. Neck veins were at the level of the sternal angle with him sitting. Considerable improvement in lower leg swelling, as mentioned. INVESTIGATIONS: Blood work today shows a hemoglobin that is stable at 10.4. Normal white blood cell count and platelet count. His serum potassium this morning was 3.4, and serum sodium was slightly increased at 146. Calcium is slightly low at 7.9 with his low albumin level. BUN essentially stable. Creatinine has improved to 1.0. Fasting glucose improved at 141 this morning. IMPRESSION/PLAN: 1. Heart failure (diastolic): As mentioned significantly improved effort tolerance. Still has some systemic edema, but this has improved. I have withheld his loop diuretic, suspecting that he will be transferring some systemic fluid back into his abdominal cavity. Despite his spironolactone, his potassium did drop. I have ordered potassium chloride 40 mEq by mouth for two doses today. We will follow his chemistry with blood work tomorrow morning. For the time being, his torsemide will continue on hold. 2. Obesity/obstructive sleep apnea/cor pulmonale/heart failure: As mentioned above. 3. Cardiac serosa/gross ascites: As mentioned, dramatically improved. He feels so much better. Remains free of sign of metabolic encephalopathy. 4. Chronic atrial fibrillation: Heart rate remains controlled. We plan to resume his Pradaxa tonight. 5. Abnormal EKG/atrioventricular (AV) block/pacemaker in situ: Has been free of symptomatic arrhythmia or signs of myocardial ischemia. Ambulating in the angelo. I am cautiously optimistic that we will be able to look forward to his discharge tomorrow afternoon, pending blood work in the morning. DD: Dontae Wyman MD, FACC 08/26/18 1920 Discharge Summary PROCEDURES PERFORMED DURING STAY: Ultrasound-guided paracentesis on 08/25/18 ADMITTING DIAGNOSES: 1. Diastolic CHF 2. Polyarticular gout 3. Hypokalemia 4. Ascites 5. PINKY on CPAP DISCHARGE DIAGNOSES: As above COMPLICATIONS/CHIEF COMPLAINT: CHF. ascites, arthritis HISTORY OF PRESENT ILLNESS: (As per initial H&P); 73 YO M with hx of CHF, AF, ICD, COPD, DM, PINKY on cpap, chronic back pain, gout, testicular cancer who presents with joint swelling. Per pt his pharmacy switched manufacturers for his torsemide and he felt the new pill was making him constipated. He also did not feel it was working well and after speaking with his pigment mixer he was switched to Bumex. He has been taking this for almost a week. Since started the Bumex he has noted swelling and pain in joints around his body including ankles, knees, right hip, wrists, fingers, elbows, and shoulders. He has not noticed increased water retention or increased sob. He denies fever, cough or rash. HOSPITAL COURSE: * polyarticular gout, most likely secondary to diuretics, persisted despite colchicine, Allopurinol was held during acute flare, pt responded to prednisone * chronic chf with preserved EF, ( diastolic CHF), has been followed by cardiology team, history of being non compliant, pt was placed on fluid restriction weith daily weight, on torsemide, spironolactone was added, * Pradaxa was resumed in view of Afib * Ascites improved with paracentesis * PINKY was controlled with C Pap * Diabetes was controlled with Insulin and diet * Hypothyroid, was on Synthroid DISCHARGE MEDICATIONS: Please see below. ALLERGIES: Please see below. PHYSICAL EXAMINATION ON DISCHARGE: VITAL SIGNS: Please see below. General Exam: Positive: Alert, Cooperative, No Acute Distress Eye Exam: Positive: PERRLA, Conjunctiva & lids normal, EOMI ENT Exam: Positive: Atraumatic, Mucous membr. moist/pink, Pharynx Normal Neck Exam: Positive: Supple Chest Exam: Positive: Clear to auscultation, Normal air movement Heart Exam: Positive: Rate Normal, Normal S1, Normal S2 Abdomen Exam: Positive: Normal bowel sounds, Soft Extremity Exam: Positive: Tenderness, Swelling Skin Exam: Positive: Other skin issue Neuro Exam: Positive: Normal Gait, Normal Speech, Cranial Nerves 3-12 NL, Reflexes 2+ Psych Exam: Positive: Mental status NL, Mood NL, Oriented x 3 LABORATORY DATA: Please see below. IMAGING: LE doppler 08/21/18: Impression: Diffuse bilateral subcutaneous edema. No evidence for deep venous thrombosis. CXR: 08/21/18 Impression: Chronic-appearing changes. Subtle basilar atelectasis cannot be excluded. CXR: 08/26/18 Impression: Subtle bibasilar findings at the costophrenic angles suggest chronic change and remain stable compared to 07/12. PROGNOSIS: Gaurded ACTIVITY: As tolerated DIET: Diabetic, Low salt, DISCHARGE PLAN: DISPOSITION: Home, Self-Care. DISCHARGE INSTRUCTIONS: Daily weight Fluid restriction ITEMS TO FOLLOWUP ON ON OUTPATIENT: 1. Follow with PCP 2. Follow with primary Cardiology clinic 3. Return to ED with any warning sign as explained DISCHARGE CONDITION: [Stable]. TIME SPENT ON DISCHARGE: Greater than minutes. Vital Signs/I&Os Vital Signs Date Time Temp Pulse Resp B/P (MAP) Pulse Ox O2 Delivery O2 Flow Rate FiO2 08/27/18 04:00 98.5 83 20 104/62 (76) 90 2.0 Microbiology Microbiology 08/23/18 Blood Culture - Final, Complete NO GROWTH AFTER 5 DAYS 08/21/18 Blood Culture - Final, Complete Micrococcus Species 08/21/18 Blood Culture - Final, Complete NO GROWTH AFTER 5 DAYS Discharge Medications Scheduled Allopurinol (Zyloprim) 300 Mg Tab, 300 MG PO DAILY, (Reported) Ascorbic Acid (Vitamin C) 500 Mg Tablet, 500 MG PO DAILY, (Reported) TAKES AT NOON Aspirin (Aspirin EC) 81 Mg Tab, 81 MG PO DAILY, (Reported) Cholecalciferol (Vitamin D3) (Vitamin D3) 2,000 Unit Cap, 2,000 UNIT PO DAILY, (Reported) TAKES AT NOON Colesevelam Hydrochloride (Welchol) 625 Mg Tab, 3,750 MG PO QHS, (Reported) Dabigatran Etexilate Mesylate (Pradaxa) 150 Mg Cap, 150 MG PO BID, (Reported) Glucosamine/Chondroitin/C/Clay (Glucosamine-Chondroitin Capsul) 1 Cap Cap, 1 CAP PO BID, (Reported) Insulin Detemir (Levemir) 1 Units/0.01 Ml Susp, 60 UNITS SC BID, (Reported) blood sugar <130, no insulin. PT HASN'T NEEDED MORNING DOSE LATELY. Lanolin Alcohol/Mo/W.pet/[place] (Eucerin Creme) 454 Gm Cream..g., 1 DOSE TOP DAILY, (Reported) APPLY TO LEGS AND FEET. Levothyroxine Sodium (Levothyroxine Sodium) 175 Mcg Tab, 175 MCG PO QAM, (Reported) Magnesium Oxide (Magnesium Oxide) 400 Mg Tablet, 400 MG PO BID, (Reported) Multivitamin (Multivitamins) 1 Each Tablet, 1 TAB PO DAILY, (Reported) TAKES AT NOON Omeprazole (Omeprazole) 40 Mg Cap, 40 MG PO QHS, (Reported) Spironolactone (Spironolactone) 25 Mg Tablet, 25 MG PO BID Torsemide (Torsemide) 20 Mg Tablet, 20 MG PO BID Scheduled PRN Albuterol Sulfate (Proair Hfa) 108 Mcg/Act Aer, 2 PUFFS INH QID PRN for SHORTNESS OF BREATH, (Reported) Allergies Coded Allergies: Quinolones (Verified Allergy, Unknown, 08/21/18) GI UPSET atorvastatin (Verified Allergy, Unknown, 08/21/18) GI UPSET valsartan (Verified Allergy, Unknown, 08/21/18) FROM SANDRA GARNER MD Aug 30, 2018 06:25
== END 2018-08-27 13:36 | disposition home or self-care (01) | DRG 553 ==
LOC: M ED 10:46 → M ED INP 13:22 → M MSPAV 15:59
PROVIDERS: ADMIT Hospitalist; ATTEND Hospitalist
PROC: 0W9G3ZZ Drainage of Peritoneal Cavity, Percutaneous Approach (ICD-10-PCS; principal; 2018-08-25)
DX: M10.29 Drug-induced gout, multiple sites (principal); I50.33 Acute on chronic diastolic (congestive) heart failure; R18.8 Other ascites; I48.1 Persistent atrial fibrillation; I48.2 Chronic atrial fibrillation; J44.9 Chronic obstructive pulmonary disease, unspecified; E66.9 Obesity, unspecified; E78.5 Hyperlipidemia, unspecified; E11.649 Type 2 diabetes mellitus with hypoglycemia without coma; G47.33 Obstructive sleep apnea (adult) (pediatric); T50.1X5A Adverse effect of loop [high-ceiling] diuretics, initial encounter; I71.4 Abdominal aortic aneurysm, without rupture; E03.9 Hypothyroidism, unspecified; K76.1 Chronic passive congestion of liver; K21.9 Gastro-esophageal reflux disease without esophagitis; I27.81 Cor pulmonale (chronic); I11.0 Hypertensive heart disease with heart failure; Z79.4 Long term (current) use of insulin; Z79.82 Long term (current) use of aspirin; Z79.01 Long term (current) use of anticoagulants; Z79.899 Other long term (current) drug therapy; Z88.1 Allergy status to other antibiotic agents; Z88.8 Allergy status to other drugs, medicaments and biological substances; Z95.0 Presence of cardiac pacemaker; Z90.49 Acquired absence of other specified parts of digestive tract; Z85.47 Personal history of malignant neoplasm of testis; Z86.14 Personal history of Methicillin resistant Staphylococcus aureus infection; Z91.11 Patient's noncompliance with dietary regimen; Z87.891 Personal history of nicotine dependence; Z91.19 Patient's noncompliance with other medical treatment and regimen; Z68.37 Body mass index [BMI] 37.0-37.9, adult

== ENCOUNTER 2018-10-02 11:00 | Day surgery (SDC) | payer MEDICARE, BC, OTHER ==
[~2018-10-02] VITALS: Ht 188 cm; Wt 108.4 kg
[~2018-10-02 11:00] MED LIST changes: +BISO10TA14 PO; -BISO10TA6 PO; +BUME1TAB3 PO; +EUCECRE8 TOP; +LIDOCAINE 2% INJ 100 MG/5 ML SDV (FOR ANES.) As Ordered ONE; +MAGN400T2 PO; +MULT-40 PO; +NS 1,000 ML IV ONE; -OMEP40CA2 PO; +OMEP40CA97 PO; -VALA1TAB2 PO; +VALA1TAB64 PO; +VITA-158 PO; +ZANT150T40 PO; -ZANTTAB PO; +propofoL 200 MG/20 ML VIAL As Ordered ONE
--- NOTE | 2018-10-02 12:05 | ROOR ---
Patient Name: Leland Bassett Procedure Date: 10/02/2018 11:48 AM Date of : 1945 Age: 73 Room: [facility] Gender: Male Note Status: Finalized Procedure: Upper GI endoscopy Indications: Surveillance for malignancy due to personal history of Ybarra's esophagus Providers: Dell TOM MD Referring MD: MY CHRISTOPHER NP, Dontae Wyman MD Requesting Provider: Medicines: Monitored Anesthesia Care Complications: No immediate complications. Procedure: Pre-Anesthesia Assessment: - The heart rate, respiratory rate, oxygen saturations, blood pressure, adequacy of pulmonary ventilation, and response to care were monitored throughout the procedure. The Endoscope was introduced through the mouth, and advanced to the second part of duodenum. The upper GI endoscopy was accomplished without difficulty. The patient tolerated the procedure well. Findings: Grade III varices were found in the lower third of the esophagus. They were medium in size. The Z-line was variable and was found 38 cm from the incisors. The entire examined stomach was normal. The examined duodenum was normal. Impression: - Grade III esophageal varices. - Z-line variable, 38 cm from the incisors.--I do not see any significant barretts esophagus. - Normal stomach. - Normal examined duodenum. - No specimens collected. Recommendation: - Start/continue a Non-selective Beta Mireille such as Propranolol or Nadolol, titrate to heart rate. (if acceptable to cardiology) - Refer to cardiology to clear for 10-15 day pradaxa hold in anticipation of possible variceal banding--primary prevention. - Repeat upper endoscopy at appointment to be scheduled for possible variceal banding/treatment of esophageal varices. - My office will call you to reschedule the procedure. Dell Tom MD Dell TOM MD 10/02/2018 12:05:02 PM Electronically signed by Dell TOM MD Number of Addenda: 0 Note Initiated On: 10/02/2018 11:48 AM Estimated Blood Loss: Estimated blood loss: none.
--- NOTE | 2018-10-02 12:41 | ROOR ---
Patient Name: Leland Bassett Procedure Date: 10/02/2018 11:48 AM Date of : 1945 Age: 73 Room: [facility] Gender: Male Note Status: Finalized Procedure: Colonoscopy Indications: High risk colon cancer surveillance: Personal history of colonic polyps Providers: Dell TOM MD Referring MD: MY CHRISTOPHER NP, Dontae Wyman MD Requesting Provider: Medicines: Monitored Anesthesia Care Complications: No immediate complications. Procedure: Pre-Anesthesia Assessment: - The heart rate, respiratory rate, oxygen saturations, blood pressure, adequacy of pulmonary ventilation, and response to care were monitored throughout the procedure. The Colonoscope was introduced through the anus and advanced to 10 cm into the ileum. The colonoscopy was performed without difficulty. The patient tolerated the procedure well. The quality of the bowel preparation was fair. Findings: The perianal and digital rectal examinations were normal. Multiple medium-sized angioectasias without bleeding were found in the descending colon, in the transverse colon, in the ascending colon and in the cecum. Two sessile polyps were found in the descending colon and ascending colon. The polyps were 3 to 5 mm in size. These polyps were removed with a cold snare. Resection and retrieval were complete. To prevent bleeding after the polypectomy, four hemostatic clips were successfully placed. There was no bleeding at the end of the procedure. A tattoo was seen in the proximal descending colon. The tattoo site appeared normal. Medium sized rectal varices were found. Internal hemorrhoids were found during retroflexion. The hemorrhoids were medium-sized. Impression: - Preparation of the colon was fair/adequate after lavage. - Multiple non-bleeding colonic angioectasias throughout. - Two 3 to 5 mm polyps in the descending colon and in the ascending colon, removed with a cold snare. Resected and retrieved. Clips were placed. - A tattoo was seen in the proximal descending colon. The tattoo site appeared normal. - Rectal varices. - Internal hemorrhoids. Recommendation: - Await pathology results. - If the pathology report reveals adenomatous tissue, then repeat the colonoscopy for surveillance in 5 years. - Monitor blood work closely while patient on anticoagulatnts. This will be left to referring physician. - Resume Pradaxa (dabigatran) at prior dose in 2 days. Refer to managing physician for further adjustment of therapy. Dell Tom MD Dell TOM MD 10/02/2018 12:40:28 PM Electronically signed by Dell TOM MD Number of Addenda: 0 Note Initiated On: 10/02/2018 11:48 AM Estimated Blood Loss: Estimated blood loss: none.
[2018-10-02 12:50] VITALS: BP 123/91
== END 2018-10-02 13:28 | disposition home or self-care (01) ==
LOC: M OPP 11:00
PROVIDERS: ATTEND Internal Medicine Gastroenterology
DX: Z12.11 Encounter for screening for malignant neoplasm of colon (principal); Z86.010 Personal history of colon polyps; K55.20 Angiodysplasia of colon without hemorrhage; D12.4 Benign neoplasm of descending colon; D12.2 Benign neoplasm of ascending colon; K64.8 Other hemorrhoids; K22.70 Barrett's esophagus without dysplasia; K22.8 Other specified diseases of esophagus; E11.51 Type 2 diabetes mellitus with diabetic peripheral angiopathy without gangrene; J44.9 Chronic obstructive pulmonary disease, unspecified; I48.91 Unspecified atrial fibrillation; Z85.47 Personal history of malignant neoplasm of testis; Z95.0 Presence of cardiac pacemaker; I25.10 Atherosclerotic heart disease of native coronary artery without angina pectoris; I25.2 Old myocardial infarction; I11.0 Hypertensive heart disease with heart failure; R60.0 Localized edema; M10.9 Gout, unspecified; E03.9 Hypothyroidism, unspecified; K74.60 Unspecified cirrhosis of liver; K21.9 Gastro-esophageal reflux disease without esophagitis; M19.90 Unspecified osteoarthritis, unspecified site; M54.89 Other dorsalgia; F32.9 Major depressive disorder, single episode, unspecified; G62.9 Polyneuropathy, unspecified; G43.909 Migraine, unspecified, not intractable, without status migrainosus; G47.30 Sleep apnea, unspecified; R06.83 Snoring; Z87.891 Personal history of nicotine dependence; Z88.8 Allergy status to other drugs, medicaments and biological substances; Z79.82 Long term (current) use of aspirin; Z79.899 Other long term (current) drug therapy; Z79.4 Long term (current) use of insulin; Z79.01 Long term (current) use of anticoagulants

== ENCOUNTER 2018-12-19 14:06 | Inpatient (IN) | payer MEDICARE, BC, OTHER ==
[~2018-12-19] VITALS: Ht 188 cm; Wt 110.9 kg
[~2018-12-19 14:06] MED LIST changes: +BISO10TA10 PO; -BISO10TA14 PO; -LIDOCAINE 2% INJ 100 MG/5 ML SDV (FOR ANES.) As Ordered ONE; -NS 1,000 ML IV ONE; +VALA1TAB2 PO; -VALA1TAB64 PO; -propofoL 200 MG/20 ML VIAL As Ordered ONE
[2018-12-19] MEDS ORDERED: SPIR-10 PO (15:08)
[2018-12-19] MEDS ORDERED: CHOL100029 PO (15:08)
[2018-12-19 15:52] LABS: HEMATOCRIT 30.2 % (42.0-52.0); HEMOGLOBIN 8.5 g/dl (13.5-17.5); MEAN CORPUSCULAR HEMOGLOBIN 21.9 pg (27.0-33.0); MEAN CORPUSCULAR HGB CONC 28.1 g/dl (32.0-36.5); MEAN CORPUSCULAR VOLUME 77.6 fl (80.0-96.0); PLATELET COUNT, AUTOMATED 211 10^3/uL (150-450); RED BLOOD COUNT 3.89 10^6/uL (4.30-6.10); WHITE BLOOD COUNT 9.3 10^3/uL (4.0-10.0)
[2018-12-19 16:01] LABS: INR 1.86; PROTHROMBIN TIME 21.2 SECONDS (11.8-14.0)
[2018-12-19 16:50] LABS: ALBUMIN 3.2 GM/DL (3.2-5.2); BILIRUBIN,DIRECT 0.3 MG/DL (0.0-0.2); BILIRUBIN,TOTAL 0.9 MG/DL (0.2-1.0); CALCIUM LEVEL 9.2 MG/DL (8.8-10.2); CREATININE FOR GFR 1.38 MG/DL (0.70-1.30); GLOMERULAR FILTRATION RATE 53.8 (>42); POTASSIUM SERUM 4.3 MEQ/L (3.5-5.1); TOTAL PROTEIN 6.6 GM/DL (6.4-8.2)
[2018-12-19] MEDS ORDERED: TORS20TA2 PO ×2 (16:55)
[2018-12-19] MEDS ORDERED: GLUCOSE 4 GM CHEW TABLET PO PRN (17:45)
[2018-12-19] MEDS ORDERED: PANTOPRAZOLE 40MG INJ (PROTONIX) (C9113) IV ONE (17:45)
[2018-12-19] MEDS ORDERED: GLUCAGON FOR INJ 1 MG VIAL (J1610) SC PRN (17:45)
[2018-12-19] MEDS ORDERED: ALBUTEROL 90 MCG/ACT 8GM HFA INHALER INH PRN (17:45)
[2018-12-19] MEDS ORDERED: DEXTROSE 50% 50 ML SYRINGE IV PRN (17:45)
--- NOTE | 2018-12-19 18:28 | HPEPDOC ---
General Date of Admission 12/19/18 Date of Service: Dec 19, 2018 Attending Physician: CHARLA NUÑEZ DO Chief Complaint The patient is a 73-year-old male admitted with a reason for visit of Abnormal Labs. Source: Patient, Family Exam Limitations: Hard of hearing Timing/Duration: Day(s) (3-4 days) Severity: Mild Associated Symptoms: Other (blood in the stool) History of Present Illness Patient is 73 years old male with past medical history of CHF, AF, ICD, COPD, DM, PINKY on cpap, chronic back pain, gout, testicular cancer, nonalcoholic cirrhosis, esophageal varices presented hospital with anemia with hemoglobin of 8.5. Patient stated that for past 5- 6 days he has been having intermittent diarrhea with blood in his stool. Of note patient has history of hemorrhoids. On 10/02/18 colonoscopy was done by Dr. Tom which show multiple nonbleeding colonic angiectasias throughout, Two 3 to 5 mm polyps in the descending colon and in the ascending colon, removed with a cold snare. Patient was found rectal varices with internal hemorrhoids. Upper GI endoscopy showed grade 3 varices in the lower 3d of the esophagus. Today in the PCP office patient was found to have hemoglobin 8.5 and he was recommended to go to the hospital. Patient denies feve r, chills, nausea, vomiting, shortness of breath, dysuria. Home Medications Scheduled Allopurinol (Zyloprim) 300 Mg Tab, 300 MG PO DAILY, (Reported) Ascorbic Acid (Vitamin C) 500 Mg Tablet, 500 MG PO DAILY, (Reported) TAKES AT NOON Aspirin (Aspirin EC) 81 Mg Tab, 81 MG PO DAILY, (Reported) Colesevelam Hydrochloride (Welchol) 625 Mg Tab, 3,750 MG PO QHS, (Reported) Dabigatran Etexilate Mesylate (Pradaxa) 150 Mg Cap, 150 MG PO BID, (Reported) Glucosamine/Chondroitin/C/Clay (Glucosamine-Chondroitin Capsul) 1 Cap Cap, 1 CAP PO BID, (Reported) Insulin Detemir (Levemir) 1 Units/0.01 Ml Susp, 80 UNITS SC BID, (Reported) Levothyroxine Sodium (Levothyroxine Sodium) 175 Mcg Tab, 175 MCG PO QAM, (Reported) Magnesium Oxide (Magnesium Oxide) 400 Mg Tablet, 400 MG PO BID, (Reported) Multivitamin (Multivitamins) 1 Each Tablet, 1 TAB PO DAILY, (Reported) TAKES AT NOON Omeprazole (Omeprazole) 40 Mg Cap, 40 MG PO QHS, (Reported) Spironolactone (Spironolactone) 25 Mg Tablet, 25 MG PO BID, (Reported) Torsemide (Torsemide) 20 Mg Tablet, 60 MG PO QAM, (Reported) Torsemide (Torsemide) 20 Mg Tablet, 40 MG PO QPM, (Reported) Vitamin D (Vitamin D3) 1,000 Unit Tablet, 2,000 UNITS PO DAILY, (Reported) TAKES AT NOON Scheduled PRN Albuterol Sulfate (Proair Hfa) 108 Mcg/Act Aer, 2 PUFFS INH QID PRN for SHORTNESS OF BREATH, (Reported) Allergies Coded Allergies: valsartan (Verified Allergy, Unknown, UNKNOWN REACTION, 12/19/18) Quinolones (Verified Adverse Reaction, Mild, GI UPSET, 12/19/18) atorvastatin (Verified Adverse Reaction, Mild, GI UPSET, 12/19/18) Past Medical History Medical History Obstructive sleep apnea follows with Dr. Dawkins and does wear CPAP. Gout and abdominal aortic aneurysm 3.1 cm infrarenal aneurysm followed by Dr. Ordonez, gastroesophageal reflux disease, history of testicular cancer, MRSA cellulitis on his leg, arthritis, cellulitis, degenerative disk disease, non alcoholic cirrhosis, Grade III esophageal varices Surgical History Gallbladder in the 1970s, right testicular surgery in , right knee arthroscopy in the s times two, left knee surgery in 2007, left knee surgery for MRSA infection in 2008 with a subsequent skin graft in 2008, 2 months later. Venous ablation of the right leg done in 2009, cataract removal times two done in 2010. Family History Mother had dementia Social History * Smoker: former Smoker Alcohol: Denies Drugs: denies A-FIB/CHADSVASC A-FIB History Current/History of A-Fib/PAF?: Yes Current PO Anticoag Therapy: Yes Treatment Treatment ordered: Holding Other (due to GI bleed) Review of Systems Constitutional: Denies: Chills, Fever Eyes: Denies: Pain, Vision change ENT: Denies: Head Aches, Ear Pain Skin: Denies: Rash, Lesions Pulmonary: Denies: Dyspnea, Cough Cardiovascular: Denies: Chest Pain, Palpitations Gastrointestinal: Reports: Hematochezia; Denies: Vomiting Genitourinary: Denies: Dysuria Hematologic: Denies: Bruising, Bleeding Excessively Endocrine: Denies: Polydipsia, Polyphagia Musculoskeletal: Denies: Neck Pain, Back Pain Neurological: Denies: Weakness, Numbness Psych: Reports: Mood Normal Physical Examination General Exam: Positive: Alert, Cooperative Eye Exam: Positive: PERRLA ENT Exam: Positive: Atraumatic Neck Exam: Positive: Supple; Negative: JVD Chest Exam: Positive: Clear to auscultation Heart Exam: Positive: Rate Normal Telemetry: Positive: Atrial fibrillation Extremity Exam: Negative: Clubbing Skin Exam: Positive: Nl turgor and temperature Neuro Exam: Positive: Strength at 5/5 X4 ext, Cranial Nerves 3-12 NL Psych Exam: Positive: Mental status NL Vital Signs Vital Signs Date Time Temp Pulse Resp B/P (MAP) Pulse Ox O2 Delivery O2 Flow Rate FiO2 12/19/18 14:18 97.2 84 20 120/57 (78) 94 Room Air Laboratory Data Labs 24H Laboratory Tests 2 12/19/18 15:37: Nucleated Red Blood Cells % (auto) 0.0, Prothrombin Time 21.2H, Prothromb Time International Ratio 1.86, Anion Gap 6L, Glomerular Filtration Rate 53.8, Calcium Level 9.2, Total Bilirubin 0.9, Direct Bilirubin 0.3H, Aspartate Amino Transf (AST/SGOT) 16, Alanine Aminotransferase (ALT/SGPT) 18, Alkaline Phosphatase 232H, Total Protein 6.6, Albumin 3.2, Albumin/Globulin Ratio 0.94L CBC/BMP Laboratory Tests 12/19/18 15:37 Assessment/Plan Anemia Diabetes Diabetes diet Continue detemir Insulin sliding scale Problems (1) Symptomatic anemia Status: Acute Problem Text: Secondary to blood loss most likely due to GI loss Patient has esophageal varices and colonic angiectasias Dr Shoemaker from previous records recommended repeated upper endoscopy for possible variceal banding/treatment of esophageal varices. 1 unit of blood transfusion H&H every 6 hours IV protonix Appreciate/agree with GI consult (2) CHF (congestive heart failure) Status: Chronic Problem Text: Not in acute exacerbation chronic chf with preserved EF Continue home medications (3) Diabetes Status: Chronic Problem Text: continue levemir sliding scale diabetic diet (4) Hypothyroid Problem Text: stable continue synthroid (5) Afib Status: Chronic Problem Text: Heart rate is under control We will hold oral anticoagulation due to GI bleed Plan / VTE VTE Prophylaxis Ordered?: CHARLA Lewis DO Dec 19, 2018 18:28
[2018-12-19 19:00] VITALS: BP 113/66
[2018-12-19 22:00] VITALS: BP 112/66
[2018-12-19 22:34] VITALS: BP 111/66
[2018-12-19] MEDS: LEVEMIR (INSULIN DETEMIR) 1 UNITS/0.01ML SC SCH (22:42)
[2018-12-19] MEDS: SPIRONOLACTONE 25 MG TAB PO SCH (22:43)
[2018-12-19] MEDS: COLESEVELAM 625 MG TAB (WELCHOL) PO SCH (22:43)
[2018-12-19] MEDS: MAGNESIUM OXIDE 400 MG TAB (MAG-OX) PO SCH (22:43)
[2018-12-19 22:49] VITALS: BP 131/82
[2018-12-19 23:34] VITALS: BP 136/66
[2018-12-20] VITALS (12 sets, daily range): BP systolic 104–135; BP diastolic 49–71
[2018-12-20] MEDS: LEVOTHYROXINE 125MCG TABLET (0.125MG) PO SCH (05:36)
[2018-12-20] MEDS: LEVOTHYROXINE 50MCG TABLET (0.05MG) PO SCH (05:36)
[2018-12-20] MEDS ORDERED: LEVOTHYROXINE 125MCG TABLET (0.125MG) PO SCH (06:00)
[2018-12-20 06:01] LABS: HEMATOCRIT 27.7 % (42.0-52.0); MEAN CORPUSCULAR HEMOGLOBIN 22.3 pg (27.0-33.0); MEAN CORPUSCULAR HGB CONC 28.9 g/dl (32.0-36.5); MEAN CORPUSCULAR VOLUME 77.2 fl (80.0-96.0); PLATELET COUNT, AUTOMATED 171 10^3/uL (150-450); RED BLOOD COUNT 3.59 10^6/uL (4.30-6.10); WHITE BLOOD COUNT 6.4 10^3/uL (4.0-10.0)
[2018-12-20 06:11] LABS: INR 1.72; PROTHROMBIN TIME 19.9 SECONDS (11.8-14.0)
[2018-12-20 06:19] LABS: ALBUMIN 2.6 GM/DL (3.2-5.2); BILIRUBIN,TOTAL 1.1 MG/DL (0.2-1.0); CALCIUM LEVEL 8.8 MG/DL (8.8-10.2); CREATININE FOR GFR 1.36 MG/DL (0.70-1.30); GLOMERULAR FILTRATION RATE 54.7 (>42); MAGNESIUM LEVEL 2.4 MG/DL (1.8-2.4); POTASSIUM SERUM 4.8 MEQ/L (3.5-5.1); TOTAL PROTEIN 5.7 GM/DL (6.4-8.2)
[2018-12-20] MEDS: TORSEMIDE 20 MG TAB PO SCH (08:55)
[2018-12-20] MEDS: ALLOPURINOL 300 MG TAB PO SCH (08:55)
[2018-12-20] MEDS: SPIRONOLACTONE 25 MG TAB PO SCH ×2 (08:55→23:03)
[2018-12-20] MEDS: ASPIRIN 81 MG ENTERIC TAB PO SCH (08:55)
[2018-12-20] MEDS: MAGNESIUM OXIDE 400 MG TAB (MAG-OX) PO SCH ×2 (08:55→23:03)
[2018-12-20] MEDS: HumaLOG INSULIN (NovoLOG) PER UNIT SC SCH ×3 (08:56→18:15)
[2018-12-20] MEDS: LEVEMIR (INSULIN DETEMIR) 1 UNITS/0.01ML SC SCH ×2 (08:56→23:03)
[2018-12-20 10:15] LABS: HEMATOCRIT 29.9 % (42.0-52.0); HEMOGLOBIN 8.4 g/dl (13.5-17.5)
[2018-12-20] MEDS: ASCORBIC ACID 500 MG TAB PO SCH (12:08)
[2018-12-20] MEDS: VITAMIN D 1,000 INTERNATIONAL UNITS TABLET PO SCH (12:08)
--- NOTE | 2018-12-20 18:50 | IPNPDOC ---
Text Note Date of Service The patient was seen on 12/20/18. NOTE Subjective: Patient stated that he feels much better today, he denies any blood in his stool. No any acute events overnight Objective: Physical Examination General Exam: Positive: Alert, Cooperative Eye Exam: Positive: PERRLA ENT Exam: Positive: Atraumatic Neck Exam: Positive: Supple; Negative: JVD Chest Exam: Positive: Clear to auscultation Heart Exam: Positive: Rate Normal Telemetry: Positive: Atrial fibrillation Extremity Exam: Negative: Clubbing Skin Exam: Positive: Nl turgor and temperature Neuro Exam: Positive: Strength at 5/5 X4 ext, Cranial Nerves 3-12 NL Psych Exam: Positive: Mental status NL Assessment/Plan Patient is 73 years old male with past medical history of CHF, AF, ICD, COPD, DM, PINKY on cpap, chronic back pain, gout, testicular cancer, nonalcoholic cirrhosis, esophageal varices presented hospital with anemia with hemoglobin of 8.5. Of note patient has history of hemorrhoids. On 10/02/18 colonoscopy was done by Dr. Tom which show multiple nonbleeding colonic angiectasias throughout, Two 3 to 5 mm polyps in the descending colon and in the ascending colon, removed with a cold snare. Patient was found rectal varices with internal hemorrhoids. Upper GI endoscopy showed grade 3 varices in the lower 3d of the esophagus. (1) Symptomatic anemia Status: Acute Problem Text: Secondary to blood loss most likely due to GI loss Patient has esophageal varices and colonic angiectasias Dr Shoemaker from previous records recommended repeated upper endoscopy for possible variceal banding/treatment of esophageal varices. Unlikely patient has esophageal varices bleed, he doesn't have any nausea or vomiting with blood Patient received blood transfusion yesterday 1 unit, repeated 1 unit today. Hemoglobin stable, no signs of acute bleed H&H every 6 hours IV protonix Appreciate/agree with GI consult (2) CHF (congestive heart failure) Status: Chronic Problem Text: Not in acute exacerbation chronic chf with preserved EF Continue home medications (3) Diabetes Status: Chronic Problem Text: continue levemir sliding scale diabetic diet (4) Hypothyroid Problem Text: stable continue synthroid (5) Afib Status: Chronic Problem Text: Heart rate is under control We will hold oral anticoagulation due to GI bleed VS,Fishbone, I+O VS, Fishbone, I+O Laboratory Tests 10/26/19 05:24 12/20/18 09:43 Vital Signs Date Time Temp Pulse Resp B/P (MAP) Pulse Ox O2 Delivery O2 Flow Rate FiO2 12/20/18 16:15 97.7 90 18 133/71 94 Room Air I&O- Last 24 Hours up to 6 AM 12/20/18 06:00 Intake Total 1439 ml Output Total 450 ml Balance 989 ml CHARLA NUÑEZ DO Dec 20, 2018 18:50
[2018-12-20 19:13] LABS: HEMATOCRIT 31.6 % (42.0-52.0); HEMOGLOBIN 9.3 g/dl (13.5-17.5)
[2018-12-20] MEDS: COLESEVELAM 625 MG TAB (WELCHOL) PO SCH (23:03)
[2018-12-21 00:53] LABS: HEMATOCRIT 29.2 % (42.0-52.0); HEMOGLOBIN 8.5 g/dl (13.5-17.5)
[2018-12-21] MEDS: LEVOTHYROXINE 125MCG TABLET (0.125MG) PO SCH (05:44)
[2018-12-21] MEDS: LEVOTHYROXINE 50MCG TABLET (0.05MG) PO SCH (05:44)
[2018-12-21 06:00] VITALS: BP 101/57
[2018-12-21] MEDS: ASPIRIN 81 MG ENTERIC TAB PO SCH (07:47)
[2018-12-21] MEDS: TORSEMIDE 20 MG TAB PO SCH (07:48)
[2018-12-21] MEDS: SPIRONOLACTONE 25 MG TAB PO SCH ×2 (07:48→21:25)
[2018-12-21] MEDS: ALLOPURINOL 300 MG TAB PO SCH (07:48)
[2018-12-21] MEDS: MAGNESIUM OXIDE 400 MG TAB (MAG-OX) PO SCH ×2 (07:48→21:25)
[2018-12-21] MEDS: LEVEMIR (INSULIN DETEMIR) 1 UNITS/0.01ML SC SCH ×2 (07:49→21:26)
[2018-12-21] MEDS: HumaLOG INSULIN (NovoLOG) PER UNIT SC SCH ×3 (07:49→17:43)
[2018-12-21 08:08] LABS: BASO % 0.3 % (0.0-1.0); EOS # 0.3 10^3/uL (0.0-0.5); EOS % 3.3 % (0.0-3.0); HEMATOCRIT 31.7 % (42.0-52.0); HEMOGLOBIN 9.3 g/dl (13.5-17.5); LYMPH % 12.9 % (24.0-44.0); MEAN CORPUSCULAR HEMOGLOBIN 22.6 pg (27.0-33.0); MEAN CORPUSCULAR HGB CONC 29.3 g/dl (32.0-36.5); MEAN CORPUSCULAR VOLUME 76.9 fl (80.0-96.0); MONO # 0.6 10^3/uL (0.0-0.8); MONO % 7.5 % (0.0-5.0); NEUTROPHILS # 5.7 10^3/uL (1.5-8.5); NEUTROPHILS % 75.7 % (36.0-66.0); PLATELET COUNT, AUTOMATED 184 10^3/uL (150-450); RED BLOOD COUNT 4.12 10^6/uL (4.30-6.10); WHITE BLOOD COUNT 7.6 10^3/uL (4.0-10.0)
[2018-12-21 08:22] LABS: INR 1.29; PROTHROMBIN TIME 15.8 SECONDS (11.8-14.0)
[2018-12-21 08:36] LABS: CALCIUM LEVEL 8.7 MG/DL (8.8-10.2); CREATININE FOR GFR 1.41 MG/DL (0.70-1.30); GLOMERULAR FILTRATION RATE 52.5 (>42); MAGNESIUM LEVEL 2.5 MG/DL (1.8-2.4); POTASSIUM SERUM 4.9 MEQ/L (3.5-5.1)
[2018-12-21 12:50] LABS: HEMOGLOBIN 9.3 g/dl (13.5-17.5)
[2018-12-21] MEDS: VITAMIN D 1,000 INTERNATIONAL UNITS TABLET PO SCH (12:56)
[2018-12-21] MEDS: ASCORBIC ACID 500 MG TAB PO SCH (12:56)
[2018-12-21 14:00] VITALS: BP 109/74
[2018-12-21 18:41] LABS: HEMATOCRIT 31.4 % (42.0-52.0); HEMOGLOBIN 9.3 g/dl (13.5-17.5)
--- NOTE | 2018-12-21 18:56 | IPNPDOC ---
Text Note Date of Service The patient was seen on 12/21/18. NOTE Subjective: No any acute events overnight. Patient stated that he has a good appetite and denies fever, chills, nausea, vomiting, diarrhea or dysuria Objective: Physical Examination General Exam: Positive: Alert, Cooperative Eye Exam: Positive: PERRLA ENT Exam: Positive: Atraumatic Neck Exam: Positive: Supple; Negative: JVD Chest Exam: Positive: Clear to auscultation Heart Exam: Positive: Rate Normal Telemetry: Positive: Atrial fibrillation Extremity Exam: Negative: Clubbing Skin Exam: Positive: Nl turgor and temperature Neuro Exam: Positive: Strength at 5/5 X4 ext, Cranial Nerves 3-12 NL Psych Exam: Positive: Mental status NL Assessment/Plan Patient is 73 years old male with past medical history of CHF, AF, ICD, COPD, DM, PINKY on cpap, chronic back pain, gout, testicular cancer, nonalcoholic cirrhosis, esophageal varices presented hospital with anemia with hemoglobin of 8.5. Of note patient has history of hemorrhoids. On 10/02/18 colonoscopy was done by Dr. Tom which show multiple nonbleeding colonic angiectasias throughout, Two 3 to 5 mm polyps in the descending colon and in the ascending colon, removed with a cold snare. Patient was found rectal varices with internal hemorrhoids. Upper GI endoscopy showed grade 3 varices in the lower 3d of the esophagus. (1) Symptomatic anemia Status: Acute Problem Text: Secondary to blood loss most likely due to GI loss Patient has esophageal varices and colonic angiectasias Dr Shoemaker from previous records recommended repeated upper endoscopy for possible variceal banding/treatment of esophageal varices. Unlikely patient has esophageal varices bleed, he doesn't have any nausea or vomiting with blood Patient received blood transfusion on 12/19/18 1 unit, repeated 1 unit 12/20/18. Hemoglobin became 9.3 on 12/21/18, expected hemoglobin around 10.5. There is concern for ongoing bleeding H&H every 6 hours IV protonix Appreciate/agree with GI consult (2) CHF (congestive heart failure) Status: Chronic Problem Text: Not in acute exacerbation chronic chf with preserved EF Continue home medications (3) Diabetes Status: Chronic Problem Text: continue levemir sliding scale diabetic diet (4) Hypothyroid Problem Text: stable continue synthroid (5) Afib Status: Chronic Problem Text: Heart rate is under control We will hold oral anticoagulation due to GI bleed VS,Fishbone, I+O VS, Fishbone, I+O Laboratory Tests 12/20/18 18:59 12/21/18 00:44 12/21/18 07:57 12/21/18 12:30 12/21/18 18:35 Vital Signs Date Time Temp Pulse Resp B/P (MAP) Pulse Ox O2 Delivery O2 Flow Rate FiO2 12/21/18 14:00 98.4 76 17 109/74 (86) 93 Room Air I&O- Last 24 Hours up to 6 AM 12/21/18 06:00 Intake Total 2100 ml Output Total 1600 ml Balance 500 ml CHARLA NUÑEZ DO Dec 21, 2018 18:56
[2018-12-21] MEDS: COLESEVELAM 625 MG TAB (WELCHOL) PO SCH (21:26)
[2018-12-21 22:00] VITALS: BP 109/74
[2018-12-22] MEDS: LEVOTHYROXINE 125MCG TABLET (0.125MG) PO SCH (05:33)
[2018-12-22] MEDS: LEVOTHYROXINE 50MCG TABLET (0.05MG) PO SCH (05:33)
[2018-12-22 06:00] VITALS: BP 109/72
[2018-12-22 06:00] LABS: BASO % 0.3 % (0.0-1.0); EOS # 0.2 10^3/uL (0.0-0.5); EOS % 3.3 % (0.0-3.0); HEMATOCRIT 30.7 % (42.0-52.0); HEMOGLOBIN 8.8 g/dl (13.5-17.5); LYMPH # 0.9 10^3/uL (1.5-5.0); LYMPH % 14.6 % (24.0-44.0); MEAN CORPUSCULAR HEMOGLOBIN 22.4 pg (27.0-33.0); MEAN CORPUSCULAR HGB CONC 28.7 g/dl (32.0-36.5); MEAN CORPUSCULAR VOLUME 78.3 fl (80.0-96.0); MONO # 0.5 10^3/uL (0.0-0.8); MONO % 8.8 % (0.0-5.0); NEUTROPHILS # 4.4 10^3/uL (1.5-8.5); NEUTROPHILS % 72.7 % (36.0-66.0); PLATELET COUNT, AUTOMATED 167 10^3/uL (150-450); RED BLOOD COUNT 3.92 10^6/uL (4.30-6.10)
[2018-12-22 06:11] LABS: INR 1.2; PROTHROMBIN TIME 14.9 SECONDS (11.8-14.0)
[2018-12-22 06:19] LABS: CALCIUM LEVEL 8.4 MG/DL (8.8-10.2); CREATININE FOR GFR 1.42 MG/DL (0.70-1.30); MAGNESIUM LEVEL 2.7 MG/DL (1.8-2.4); POTASSIUM SERUM 4.5 MEQ/L (3.5-5.1)
[2018-12-22] MEDS ORDERED: LEVEMIR (INSULIN DETEMIR) 1 UNITS/0.01ML SC ONE (08:00)
[2018-12-22] MEDS: HumaLOG INSULIN (NovoLOG) PER UNIT SC SCH ×3 (08:46→18:20)
[2018-12-22] MEDS: ASPIRIN 81 MG ENTERIC TAB PO SCH (08:47)
[2018-12-22] MEDS: ALLOPURINOL 300 MG TAB PO SCH (08:47)
[2018-12-22] MEDS: SPIRONOLACTONE 25 MG TAB PO SCH ×2 (08:47→20:07)
[2018-12-22] MEDS: TORSEMIDE 20 MG TAB PO SCH (08:48)
[2018-12-22] MEDS: VITAMIN D 1,000 INTERNATIONAL UNITS TABLET PO SCH (12:30)
[2018-12-22] MEDS: ASCORBIC ACID 500 MG TAB PO SCH (12:30)
[2018-12-22 14:00] VITALS: BP 111/73
--- NOTE | 2018-12-22 18:49 | IPNPDOC ---
Text Note Date of Service The patient was seen on 12/22/18. NOTE Subjective: No any acute events overnight. Pt denies fever, chills, n/v , pa lpitations, SOb, diarrhea, dysuria. Objective: Physical Examination General Exam: Positive: Alert, Cooperative Eye Exam: Positive: PERRLA ENT Exam: Positive: Atraumatic Neck Exam: Positive: Supple; Negative: JVD Chest Exam: Positive: Clear to auscultation Heart Exam: Positive: Rate Normal Telemetry: Positive: Atrial fibrillation Extremity Exam: Negative: Clubbing Skin Exam: Positive: Nl turgor and temperature Neuro Exam: Positive: Strength at 5/5 X4 ext, Cranial Nerves 3-12 NL Psych Exam: Positive: Mental status NL Assessment/Plan Patient is 73 years old male with past medical history of CHF, AF, ICD, COPD, DM, PINKY on cpap, chronic back pain, gout, testicular cancer, nonalcoholic cirrhosis, esophageal varices presented hospital with anemia with hemoglobin of 8.5. Of note patient has history of hemorrhoids. On 10/02/18 colonoscopy was done by Dr. Tom which show multiple nonbleeding colonic angiectasias throughout, Two 3 to 5 mm polyps in the descending colon and in the ascending colon, removed with a cold snare. Patient was found rectal varices with internal hemorrhoids. Upper GI endoscopy showed grade 3 varices in the lower 3d of the esophagus. Patient received blood transfusion on 12/19/18 1 unit, repeated 1 unit 12/20/18. Hemoglobin became 9.3 on 12/21/18, expected hemoglobin around 10.5. on 12/22/18 Hb 8.8. There is concern for ongoing bleeding. Dr rFost will proceed with possible colonoscopy. (1) Acute blood loss anemia Secondary to blood loss most likely due to GI loss Patient has esophageal varices and colonic angiectasias Dr Shoemaker from previous records recommended repeated upper endoscopy for possible variceal banding/treatment of esophageal varices. Unlikely patient has esophageal varices bleed, he doesn't have any nausea or vomiting with blood Patient received blood transfusion on 12/19/18 1 unit, repeated 1 unit 12/20/18. Hemoglobin became 9.3 on 12/21/18, expected hemoglobin around 10.5. on 12/22/18 Hb 8.8 There is concern for ongoing bleeding H&H every 6 hours IV protonix Appreciate/agree with GI consult GI bleed see above CHF (congestive heart failure) Status: Chronic Problem Text: Not in acute exacerbation chronic chf with preserved EF Continue home medications Diabetes Status: Chronic Problem Text: continue levemir sliding scale diabetic diet Hypothyroid Problem Text: stable continue synthroid Afib Status: Chronic Problem Text: Heart rate is under control We will hold oral anticoagulation due to GI bleed VS,Fishbone, I+O VS, Fishbone, I+O Laboratory Tests 12/22/18 05:13 Vital Signs Date Time Temp Pulse Resp B/P (MAP) Pulse Ox O2 Delivery O2 Flow Rate FiO2 12/22/18 14:00 98.5 71 20 111/73 (86) 96 Room Air I&O- Last 24 Hours up to 6 AM 12/22/18 06:00 Intake Total 1675 ml Output Total 3000 ml Balance -1325 ml CHARLA NUÑEZ DO Dec 22, 2018 18:49
[2018-12-22] MEDS: COLESEVELAM 625 MG TAB (WELCHOL) PO SCH (20:07)
[2018-12-22 22:00] VITALS: BP 115/73
[2018-12-22] MEDS: LEVEMIR (INSULIN DETEMIR) 1 UNITS/0.01ML SC SCH (22:00)
[2018-12-23 06:00] VITALS: BP 117/69
[2018-12-23 06:01] LABS: BASO % 0.3 % (0.0-1.0); EOS # 0.2 10^3/uL (0.0-0.5); EOS % 3.5 % (0.0-3.0); HEMATOCRIT 30.7 % (42.0-52.0); HEMOGLOBIN 8.9 g/dl (13.5-17.5); LYMPH # 0.9 10^3/uL (1.5-5.0); LYMPH % 15.3 % (24.0-44.0); MEAN CORPUSCULAR HEMOGLOBIN 22.9 pg (27.0-33.0); MEAN CORPUSCULAR VOLUME 78.9 fl (80.0-96.0); MONO # 0.5 10^3/uL (0.0-0.8); NEUTROPHILS # 4.1 10^3/uL (1.5-8.5); NEUTROPHILS % 71.7 % (36.0-66.0); PLATELET COUNT, AUTOMATED 159 10^3/uL (150-450); RED BLOOD COUNT 3.89 10^6/uL (4.30-6.10); WHITE BLOOD COUNT 5.8 10^3/uL (4.0-10.0)
[2018-12-23] MEDS: LEVOTHYROXINE 50MCG TABLET (0.05MG) PO SCH (06:01)
[2018-12-23] MEDS: LEVOTHYROXINE 125MCG TABLET (0.125MG) PO SCH (06:01)
[2018-12-23 06:13] LABS: INR 1.24; PROTHROMBIN TIME 15.3 SECONDS (11.8-14.0)
[2018-12-23 06:17] LABS: CALCIUM LEVEL 8.5 MG/DL (8.8-10.2); CREATININE FOR GFR 1.27 MG/DL (0.70-1.30); GLOMERULAR FILTRATION RATE 59.2 (>42); MAGNESIUM LEVEL 2.5 MG/DL (1.8-2.4); POTASSIUM SERUM 4.8 MEQ/L (3.5-5.1)
[2018-12-23] MEDS: HumaLOG INSULIN (NovoLOG) PER UNIT SC SCH ×3 (07:30→18:13)
--- NOTE | 2018-12-23 08:57 | IPNPDOC ---
Text Note Date of Service The patient was seen on 12/23/18. NOTE Subjective: -No any acute events overnight. -Pt denies fever, chills, n/v , palpitations, SOB, diarrhea, dysuria. Objective: Physical Examination General Exam: Alert, Cooperative Eye Exam: PERRLA ENT Exam: Atraumatic Neck Exam: Supple, no JVD Chest Exam: Clear to auscultation Heart Exam: Rate Normal Telemetry: Atrial fibrillation Extremity Exam: WWP. 2+ DP pulses Skin Exam: Positive: normal turgor and temperature Neuro Exam: strength at 5/5 X4 ext, Cranial Nerves 3-12 WNL Psych Exam: AOx3 Assessment/Plan 73 yo man with CHF, AF, ICD, COPD, DM, PINKY on cpap, chronic back pain, gout, testicular cancer, nonalcoholic cirrhosis, esophageal varices and recent colonoscopy during [facility] he had 2 polyps snared, had noted rectal varices and internal hemorrhoids who now presented to the hospital with anemia with hemoglobin of 8.5. Thus far, he received 1U of blood on 12/19/18, 1U on 12/20/18. with persistent downtrending H/H and concern for ongoing bleeding. Per prior hospitalist, Dr Frost to proceed with possible? colonoscopy, will confirm plan. (1) Acute blood loss anemia -Secondary to blood loss most likely due to GI loss -Patient has esophageal varices and colonic angiectasias -Dr Shoemaker from previous records recommended repeated upper endoscopy for pos sible variceal banding/treatment of esophageal varices. Unlikely patient has esophageal varices bleed, he doesn't have any nausea or vomiting with blood -Patient received blood transfusion on 12/19/18 1 unit, repeated 1 unit 12/20/18. Hemoglobin became 9.3 on 12/21/18, expected hemoglobin around 10.5. on 12/22/18 Hb 8.8 and this morning stable at 8.9, with concern for ongoing bleeding -H&H every 6 hours -IV protonix -Will clarify if GI was consulted or if surgery was consulted for the colonoscop y? GI bleed -see above CHF: compensated at this time -Continue home medications Diabetes: -continue levemir -sliding scale -diabetic diet Hypothyroidism: -continue synthroid Afib -Heart rate is under control -continue holding oral anticoagulation due to GI bleed DVT prophylaxis: TEDs and SCDs with ongoing GIB VS,Fishbone, I+O VS, Fishbone, I+O Laboratory Tests 12/23/18 05:13 Vital Signs Date Time Temp Pulse Resp B/P (MAP) Pulse Ox O2 Delivery O2 Flow Rate FiO2 12/23/18 06:00 97.6 83 18 117/69 (85) 94 Room Air I&O- Last 24 Hours up to 6 AM 12/23/18 06:00 Intake Total 1870 ml Output Total 2700 ml Balance -830 ml DIEGO VIVEROS MD Dec 23, 2018 08:57
[2018-12-23] MEDS: ALLOPURINOL 300 MG TAB PO SCH (09:37)
[2018-12-23] MEDS: SPIRONOLACTONE 25 MG TAB PO SCH ×2 (09:37→21:10)
[2018-12-23] MEDS: TORSEMIDE 20 MG TAB PO SCH (09:37)
[2018-12-23] MEDS: ASPIRIN 81 MG ENTERIC TAB PO SCH (09:37)
[2018-12-23] MEDS: LEVEMIR (INSULIN DETEMIR) 1 UNITS/0.01ML SC SCH ×2 (09:37→21:10)
[2018-12-23] MEDS: VITAMIN D 1,000 INTERNATIONAL UNITS TABLET PO SCH (12:03)
[2018-12-23] MEDS: ASCORBIC ACID 500 MG TAB PO SCH (12:03)
[2018-12-23 14:00] VITALS: BP 110/64
[2018-12-23] MEDS: COLESEVELAM 625 MG TAB (WELCHOL) PO SCH (21:10)
[2018-12-23 22:00] VITALS: BP 115/65
[2018-12-24 06:00] VITALS: BP 125/65
[2018-12-24] MEDS: LEVOTHYROXINE 50MCG TABLET (0.05MG) PO SCH (06:00)
[2018-12-24] MEDS: LEVOTHYROXINE 125MCG TABLET (0.125MG) PO SCH (06:00)
[2018-12-24 06:19] LABS: BASO % 0.5 % (0.0-1.0); EOS # 0.2 10^3/uL (0.0-0.5); EOS % 3.9 % (0.0-3.0); HEMATOCRIT 29.9 % (42.0-52.0); HEMOGLOBIN 8.6 g/dl (13.5-17.5); LYMPH # 0.9 10^3/uL (1.5-5.0); LYMPH % 14.2 % (24.0-44.0); MEAN CORPUSCULAR HEMOGLOBIN 22.6 pg (27.0-33.0); MEAN CORPUSCULAR HGB CONC 28.8 g/dl (32.0-36.5); MEAN CORPUSCULAR VOLUME 78.5 fl (80.0-96.0); MONO # 0.5 10^3/uL (0.0-0.8); NEUTROPHILS # 4.5 10^3/uL (1.5-8.5); NEUTROPHILS % 73.1 % (36.0-66.0); PLATELET COUNT, AUTOMATED 165 10^3/uL (150-450); RED BLOOD COUNT 3.81 10^6/uL (4.30-6.10); WHITE BLOOD COUNT 6.1 10^3/uL (4.0-10.0)
[2018-12-24 06:38] LABS: INR 1.16; PROTHROMBIN TIME 14.5 SECONDS (11.8-14.0)
[2018-12-24 06:40] LABS: BLOOD UREA NITROGEN 48 MG/DL (7-18); CALCIUM LEVEL 8.5 MG/DL (8.8-10.2); CARBON DIOXIDE LEVEL 23 MEQ/L (21-32); CHLORIDE LEVEL 110 MEQ/L (98-107); CREATININE FOR GFR 1.24 MG/DL (0.70-1.30); GLOMERULAR FILTRATION RATE > 60.0 (>42); GLUCOSE, FASTING 98 MG/DL (70-100); MAGNESIUM LEVEL 2.4 MG/DL (1.8-2.4); POTASSIUM SERUM 4.7 MEQ/L (3.5-5.1); SODIUM LEVEL 141 MEQ/L (136-145)
--- NOTE | 2018-12-24 06:46 | IPNPDOC ---
Text Note Date of Service The patient was seen on 12/24/18. NOTE Subjective: -No any acute events overnight. -No hematuria, hematochezia, melena, hematemesis, hemoptysis, fever, chills, n/v , palpitations, SOB, diarrhea, dysuria. Objective: Physical Examination General Exam: Alert, Cooperative Eye Exam: PERRLA ENT Exam: Atraumatic Neck Exam: Supple, no JVD Chest Exam: Clear to auscultation Heart Exam: Rate Normal Telemetry: Atrial fibrillation Abdomen: Obese, normoactive bowel sounds, soft, nontender Extremity Exam: WWP. 2+ DP pulses Skin Exam: Positive: normal turgor and temperature Neuro Exam: strength at 5/5 X4 ext, Cranial Nerves 3-12 WNL Psych Exam: AOx3 Assessment/Plan 73 yo man with CHF, AF, ICD, COPD, DM, PINKY on cpap, chronic back pain, gout, testicular cancer, nonalcoholic cirrhosis, esophageal varices and recent colonoscopy during [facility] he had 2 polyps snared, had noted rectal varices and internal hemorrhoids who now presented to the hospital with anemia with hemoglobin of 8.5. Thus far, he received 1U of blood on 12/19/18, 1U on 12/20/18. with initial downtrending H/H and concern for active bleeding but has been stable over the last 3 days and on discussion with Dr. Frost, given the stability of his recent H/H the utility of scoping without signs of an active bleed may be low. Will plan to discharge home with close GI follow up. (1) Acute blood loss anemia -Secondary to blood loss most likely due to GI loss -Patient has esophageal varices and colonic angiectasias -Dr Shoemaker from previous records recommended repeated upper endoscopy for possible variceal banding/treatment of esophageal varices. Unlikely patient has acute esophageal variceal bleed without nausea, hematemesis, slow H/H decline and hemodynamic stability. -He received blood transfusion on 12/19/18 1 unit, repeated 1 unit 12/20/18. Hemoglobin became 9.3 on 12/21/18, expected hemoglobin around 10.5. on 12/22/18 Hb 8.8 and stable since 12/20. -Switch protonix to 40 PO BID -will plan for discharge home with close GI follow up GI bleed -see above CHF: compensated at this time -Continue home medications Diabetes: -continue levemir -sliding scale -diabetic diet Hypothyroidism: -continue synthroid Afib -Heart rate is under control -continue holding oral anticoagulation due to GI bleed DVT prophylaxis: TEDs and SCDs with concern for slow GIB VS,Fishbone, I+O VS, Fishbone, I+O Laboratory Tests 12/24/18 06:00 Vital Signs Date Time Temp Pulse Resp B/P (MAP) Pulse Ox O2 Delivery O2 Flow Rate FiO2 12/23/18 22:00 97.8 74 18 115/65 (82) 95 Room Air I&O- Last 24 Hours up to 6 AM 12/24/18 06:00 Intake Total 2130 ml Output Total 980 ml Balance 1150 ml DIEGO VIVEROS MD Dec 24, 2018 06:46
[2018-12-24] MEDS: HumaLOG INSULIN (NovoLOG) PER UNIT SC SCH ×3 (07:30→17:37)
[2018-12-24] MEDS: ASPIRIN 81 MG ENTERIC TAB PO SCH (10:00)
[2018-12-24] MEDS: LEVEMIR (INSULIN DETEMIR) 1 UNITS/0.01ML SC SCH ×2 (10:00→21:58)
[2018-12-24] MEDS: ALLOPURINOL 300 MG TAB PO SCH (10:00)
[2018-12-24] MEDS: SPIRONOLACTONE 25 MG TAB PO SCH ×2 (10:01→21:59)
[2018-12-24] MEDS: TORSEMIDE 20 MG TAB PO SCH (10:01)
[2018-12-24] MEDS: ASCORBIC ACID 500 MG TAB PO SCH (12:52)
[2018-12-24] MEDS: VITAMIN D 1,000 INTERNATIONAL UNITS TABLET PO SCH (12:52)
[2018-12-24 14:00] VITALS: BP 114/64
[2018-12-24] MEDS: COLESEVELAM 625 MG TAB (WELCHOL) PO SCH (21:59)
[2018-12-24 22:00] VITALS: BP 107/54
[2018-12-25 06:00] VITALS: BP 117/81
[2018-12-25] MEDS: LEVOTHYROXINE 50MCG TABLET (0.05MG) PO SCH (06:04)
[2018-12-25] MEDS: LEVOTHYROXINE 125MCG TABLET (0.125MG) PO SCH (06:04)
[2018-12-25] MEDS ORDERED: ELIQ2.5T PO (06:36)
[2018-12-25] MEDS: HumaLOG INSULIN (NovoLOG) PER UNIT SC SCH (07:30)
[2018-12-25 07:33] LABS: BASO % 0.3 % (0.0-1.0); EOS # 0.3 10^3/uL (0.0-0.5); EOS % 4.5 % (0.0-3.0); HEMOGLOBIN 9.1 g/dl (13.5-17.5); LYMPH # 1.1 10^3/uL (1.5-5.0); MEAN CORPUSCULAR HEMOGLOBIN 22.1 pg (27.0-33.0); MEAN CORPUSCULAR HGB CONC 28.4 g/dl (32.0-36.5); MEAN CORPUSCULAR VOLUME 77.9 fl (80.0-96.0); MONO # 0.7 10^3/uL (0.0-0.8); MONO % 9.1 % (0.0-5.0); NEUTROPHILS # 5.3 10^3/uL (1.5-8.5); NEUTROPHILS % 70.8 % (36.0-66.0); PLATELET COUNT, AUTOMATED 193 10^3/uL (150-450); RED BLOOD COUNT 4.11 10^6/uL (4.30-6.10); WHITE BLOOD COUNT 7.5 10^3/uL (4.0-10.0)
[2018-12-25 07:44] LABS: INR 1.18; PROTHROMBIN TIME 14.7 SECONDS (11.8-14.0)
--- NOTE | 2018-12-25 07:46 | DS.PDOC ---
Discharge Summary General Date of Admission Dec 19, 2018 at 14:08 Date of Discharge 12/25/2018 Attending Physician: DIEGO VIVEROS MD Specialist/Consultants Involve: Thompson Frost Discharge Summary PROCEDURES PERFORMED DURING STAY: None ADMITTING DIAGNOSES: 1. Symptomatic anemia DISCHARGE DIAGNOSES: 1. Gastrointestinal bleeding 2. Symptomatic anemia 3. Obstructive sleep apnea 4. Gout 5. Gastroesophageal reflux disease 6. non alcoholic cirrhosis with grade III esophageal varices 7. Chronic atrial fibrillation 8. CHF 9. DM 10. COPD COMPLICATIONS/CHIEF COMPLAINT: Symptomatic Anemia. HISTORY OF PRESENT ILLNESS: 73 years old male with past medical history of CHF, AF on dabigatran, ICD, COPD, DM, PINKY on cpap, chronic back pain, gout, testicular cancer, nonalcoholic cirrhosis, esophageal varices presented hospital with 5- 6 days of intermittent diarrhea with blood in his stool. HOSPITAL COURSE: Mr. Bassett has a history of multiple nonbleeding colonic angiectasias, rectal varices with internal hemorrhoids noted on colonoscopy on 10/02/[address] Tom as well as grade 3 varices in the lower 3d of the esophagus that were noted on EGD. On the day of admission, he presented to his PCP's office patient was found to have hemoglobin 8.5 and he was recommended to go to the hospital for further evaluation. On presentation to the ED he was hemodynamically stable and denied any fever, chills, nausea, vomiting, shortness of breath, dysuria and endorsed some intermittent hemotochezia. Per Dr. Tom's recommendation during his last EGD/colo in 09/2018 he had recommended a repeat upper endoscopy for possible variceal banding. He was given 1U of blood, dabigatran was held, was started on IV protonix and admitted for likely lower GIB. During this admission, he remained hemodynamically stable. He received 1U of blood on 12/19/18 and 1U on 12/20/18 with initial downtrending H/H and concern for active bleeding but remained stable over the next 4 days. There was no scheduled all source collection manager inseam leveler inhouse during this time and thus Dr. Antonio smith (surgery) was consulted for possible colonoscopy but given the stability of the H/H over the next 4 days the utility of scoping without signs of an overt active bleed was deemed low and so the decision was made to defer scoping and discharge him home with close gastroenterology follow up outpatient. Meanwhile, in speaking with Dr. Durán (cardiology) about his anticoagulation plan in the setting of this slow GIB, he recommended switching him to 2.5 BID eliquis from full dose dabigatran and follow up with cardiology outpatient. He is therefore now being discharged home on eliquis 2.5 BID with plan for close GI and cardiology follow up. DISCHARGE MEDICATIONS: Please see below. ALLERGIES: Please see below. PHYSICAL EXAMINATION ON DISCHARGE: VITAL SIGNS: Please see below. General Exam: Alert, Cooperative Eye Exam: PERRLA ENT Exam: Atraumatic Neck Exam: Supple, no JVD Chest Exam: Clear to auscultation Heart Exam: Rate Normal Telemetry: Atrial fibrillation Abdomen: Obese, normoactive bowel sounds, soft, nontender Extremity Exam: WWP, 2+ DP pulses Skin Exam: Positive: normal turgor and temperature Neuro Exam: strength at 5/5 X4 ext, Cranial Nerves 3-12 WNL Psych Exam: AOx3 LABORATORY DATA: Please see below. IMAGING: No new imaging was performed this admission PROGNOSIS: Fair ACTIVITY: As tolerated DIET: 2g sodium and consistent carb DISCHARGE PLAN: Change anticoagulation from full dose dabigatran to 2.5mg BID eliquis and close gastroenterology and cardiology follow up DISPOSITION: Home DISCHARGE INSTRUCTIONS: 1. Please stop taking the dabigatran and start eliquis at 2.5mg twice daily. ITEMS TO FOLLOWUP ON ON OUTPATIENT: 1. GIB 2. Anticoagulation plan with cardiology DISCHARGE CONDITION: Good TIME SPENT ON DISCHARGE: Greater than 30 minutes. Vital Signs/I&Os Vital Signs Date Time Temp Pulse Resp B/P (MAP) Pulse Ox O2 Delivery O2 Flow Rate FiO2 12/24/18 22:00 96.9 87 18 107/54 (71) 95 Room Air I&O- Last 24 Hours up to 6 AM 12/25/18 05:59 Intake Total 2460 ml Output Total 3175 ml Balance -715 ml Laboratory Data Labs 24H Laboratory Tests 2 12/24/18 11:23: Bedside Glucose (Misc Panel) 218H 12/24/18 16:39: Bedside Glucose (Misc Panel) 181H 12/24/18 20:52: Bedside Glucose (Misc Panel) 185H FSBS Laboratory Tests Test 12/24/18 11:23 12/24/18 16:39 12/24/18 20:52 Range/Units Bedside Glucose (Misc Panel) 218 181 185 83-110 MG/DL Microbiology Microbiology 12/21/18 Stool Occult Blood (ALEM) - Final, Complete Discharge Medications Scheduled Allopurinol (Zyloprim) 300 Mg Tab, 300 MG PO DAILY, (Reported) Apixaban (Eliquis) 2.5 Mg Tablet, 2.5 MG PO BID Ascorbic Acid (Vitamin C) 500 Mg Tablet, 500 MG PO DAILY, (Reported) TAKES AT NOON Aspirin (Aspirin EC) 81 Mg Tab, 81 MG PO DAILY, (Reported) Colesevelam Hydrochloride (Welchol) 625 Mg Tab, 3,750 MG PO QHS, (Reported) Glucosamine/Chondroitin/C/Clay (Glucosamine-Chondroitin Capsul) 1 Cap Cap, 1 CAP PO BID, (Reported) Insulin Detemir (Levemir) 1 Units/0.01 Ml Susp, 80 UNITS SC BID, (Reported) Levothyroxine Sodium (Levothyroxine Sodium) 175 Mcg Tab, 175 MCG PO QAM, (Reported) Magnesium Oxide (Magnesium Oxide) 400 Mg Tablet, 400 MG PO BID, (Reported) Multivitamin (Multivitamins) 1 Each Tablet, 1 TAB PO DAILY, (Reported) TAKES AT NOON Omeprazole (Omeprazole) 40 Mg Cap, 40 MG PO QHS, (Reported) Spironolactone (Spironolactone) 25 Mg Tablet, 25 MG PO BID, (Reported) Torsemide (Torsemide) 20 Mg Tablet, 60 MG PO QAM, (Reported) Torsemide (Torsemide) 20 Mg Tablet, 40 MG PO QPM, (Reported) Vitamin D (Vitamin D3) 1,000 Unit Tablet, 2,000 UNITS PO DAILY, (Reported) TAKES AT NOON Scheduled PRN Albuterol Sulfate (Proair Hfa) 108 Mcg/Act Aer, 2 PUFFS INH QID PRN for SHORTNESS OF BREATH, (Reported) Allergies Coded Allergies: valsartan (Verified Allergy, Unknown, UNKNOWN REACTION, 12/19/18) Quinolones (Verified Adverse Reaction, Mild, GI UPSET, 12/19/18) atorvastatin (Verified Adverse Reaction, Mild, GI UPSET, 12/19/18) DIEGO VIVEROS MD Dec 25, 2018 06:35
[2018-12-25 07:55] LABS: BLOOD UREA NITROGEN 46 MG/DL (7-18); CALCIUM LEVEL 8.2 MG/DL (8.8-10.2); CARBON DIOXIDE LEVEL 24 MEQ/L (21-32); CHLORIDE LEVEL 106 MEQ/L (98-107); CREATININE FOR GFR 1.24 MG/DL (0.70-1.30); GLOMERULAR FILTRATION RATE > 60.0 (>42); GLUCOSE, FASTING 69 MG/DL (70-100); MAGNESIUM LEVEL 2.2 MG/DL (1.8-2.4); POTASSIUM SERUM 4.4 MEQ/L (3.5-5.1); SODIUM LEVEL 137 MEQ/L (136-145)
[2018-12-25] MEDS: TORSEMIDE 20 MG TAB PO SCH (08:19)
[2018-12-25] MEDS: ALLOPURINOL 300 MG TAB PO SCH (08:19)
[2018-12-25] MEDS: ASPIRIN 81 MG ENTERIC TAB PO SCH (08:19)
[2018-12-25] MEDS: SPIRONOLACTONE 25 MG TAB PO SCH (08:19)
[2018-12-25] MEDS: LEVEMIR (INSULIN DETEMIR) 1 UNITS/0.01ML SC SCH (08:20)
[2018-12-25] MEDS ORDERED: APIXABAN 2.5 MG TAB (ELIQUIS) PO SCH (09:00)
== END 2018-12-25 11:54 | disposition home or self-care (01) | DRG 378 ==
LOC: M ED 14:06 → M ED INP 14:08 → UNDOADMIN 17:31 → M MSPAV 18:55
PROVIDERS: ADMIT Internal Medicine; ATTEND Internal Medicine
PROC: 30233N1 Transfusion of Nonautologous Red Blood Cells into Peripheral Vein, Percutaneous Approach (ICD-10-PCS; principal; 2018-12-19)
DX: K92.2 Gastrointestinal hemorrhage, unspecified (principal); D62 Acute posthemorrhagic anemia; I48.20 Chronic atrial fibrillation, unspecified; I50.30 Unspecified diastolic (congestive) heart failure; J44.9 Chronic obstructive pulmonary disease, unspecified; E11.9 Type 2 diabetes mellitus without complications; I85.10 Secondary esophageal varices without bleeding; E03.9 Hypothyroidism, unspecified; I71.4 Abdominal aortic aneurysm, without rupture; G47.33 Obstructive sleep apnea (adult) (pediatric); M54.5 Low back pain; M10.9 Gout, unspecified; K55.20 Angiodysplasia of colon without hemorrhage; K21.9 Gastro-esophageal reflux disease without esophagitis; K74.69 Other cirrhosis of liver; K64.9 Unspecified hemorrhoids; Z79.82 Long term (current) use of aspirin; Z79.4 Long term (current) use of insulin; Z79.899 Other long term (current) drug therapy; Z85.47 Personal history of malignant neoplasm of testis; B95.62 Methicillin resistant Staphylococcus aureus infection as the cause of diseases classified elsewhere; Z90.49 Acquired absence of other specified parts of digestive tract; Z98.41 Cataract extraction status, right eye; Z98.42 Cataract extraction status, left eye; Z87.891 Personal history of nicotine dependence; Z86.010 Personal history of colon polyps; Z79.01 Long term (current) use of anticoagulants; Z95.810 Presence of automatic (implantable) cardiac defibrillator; Z86.14 Personal history of Methicillin resistant Staphylococcus aureus infection

== ENCOUNTER → 2019-01-30 | Outpatient (CLI) | payer MEDICARE, BC, OTHER ==
[~2019-01-30] MED LIST changes: +CHOL100029 PO; +ELIQ2.5T PO; -VALA1TAB2 PO; +VALA1TAB64 PO
--- NOTE | 2019-01-30 12:11 | REP ---
Clinical: Chest pain. Technique: PA and lateral. Comparison: 08/26/2018. Findings: Stable cardiomegaly and tortuous thoracic aorta noted. Single lead pacemaker in stable position. The lung newman demonstrate chronic interstitial changes. Subtle basilar atelectasis cannot be excluded. No discrete consolidation. No effusion. No pneumothorax. Skeletal structures are intact. Impression: Chronic stable changes. Cannot exclude subtle basilar atelectasis. Electronically Signed by Aric Montes MD 01/30/2019 12:03 P
== END ==
LOC: M LRY 11:45
PROVIDERS: ATTEND Nurse Practitioner Adult Health
DX: Z01.811 Encounter for preprocedural respiratory examination (principal); J44.1 Chronic obstructive pulmonary disease with (acute) exacerbation

== ENCOUNTER 2019-02-05 12:08 | Day surgery (SDC) | payer MEDICARE, BC, OTHER ==
[~2019-02-05] VITALS: Ht 188 cm; Wt 112.9 kg
[~2019-02-05 12:08] MED LIST changes: +NS 1,000 ML IV ONE; +fentaNYL 100 MCG/2 ML INJECTION (J3010) As Ordered ONE
[2019-02-05] MEDS ORDERED: LIDOCAINE 2% INJ 100 MG/5 ML SDV (FOR ANES.) As Ordered ONE (13:02)
[2019-02-05] MEDS ORDERED: PROPOFOL 200 MG/20 ML VIAL As Ordered ONE (13:02)
--- NOTE | 2019-02-05 14:02 | ROOR ---
Patient Name: Leland Bassett Procedure Date: 02/05/2019 1:40 PM Date of : 1945 Age: 73 Room: [facility] Gender: Male Note Status: Finalized Procedure: Upper GI endoscopy Indications: Follow-up of esophageal varices, For therapy of esophageal varices Providers: Dell TOM MD Referring MD: MY CHRISTOPHER NP, Dontae Wyman MD Requesting Provider: Medicines: Monitored Anesthesia Care Complications: No immediate complications. Procedure: Pre-Anesthesia Assessment: - The heart rate, respiratory rate, oxygen saturations, blood pressure, adequacy of pulmonary ventilation, and response to care were monitored throughout the procedure. The Endoscope was introduced through the mouth, and advanced to the second part of duodenum. The upper GI endoscopy was accomplished without difficulty. The patient tolerated the procedure well. Findings: Grade III, large (> 5 mm) varices were found in the lower third of the esophagus. The entire examined stomach was normal. The examined duodenum was normal. Impression: - Grade III ++ (very large, non-bleeding, circumferential esophageal varices. - Normal stomach. - Normal examined duodenum. - No specimens collected. Recommendation: - Your esophageal varices are too large to safely band. We will have to work with certain medications to reduce the pressure in the varices. - Start a Non-selective Beta Mireille to reduce portal pressure, titrate to heart rate. -to be done on the advice of your disease management nurse. - Follow up with your disease management nurse at the next available appointment. - Resume Eliquis (apixaban) at prior dose today. Dell Tom MD Dell TOM MD 02/05/2019 2:02:12 PM Electronically signed by Dell TOM MD Number of Addenda: 0 Note Initiated On: 02/05/2019 1:40 PM Estimated Blood Loss: Estimated blood loss: none.
[2019-02-05 14:25] VITALS: BP 119/65
== END 2019-02-05 14:35 | disposition home or self-care (01) ==
LOC: M OPP 12:08
PROVIDERS: ATTEND Internal Medicine Gastroenterology
DX: I85.00 Esophageal varices without bleeding (principal); I48.91 Unspecified atrial fibrillation; I50.22 Chronic systolic (congestive) heart failure; Z79.82 Long term (current) use of aspirin; Z79.899 Other long term (current) drug therapy; Z88.8 Allergy status to other drugs, medicaments and biological substances; Z87.891 Personal history of nicotine dependence; Z95.5 Presence of coronary angioplasty implant and graft
CPT/HCPCS: 43235; J3010

== ENCOUNTER 2019-04-08 15:20 | Emergency (ER) | payer MEDICARE, BC, OTHER ==
[~2019-04-08] VITALS: Ht 188 cm; Wt 111.4 kg
[~2019-04-08 15:20] MED LIST changes: -BISO10TA10 PO; +BISO10TA14 PO; -NS 1,000 ML IV ONE; +VALA1TAB5 PO; -VALA1TAB64 PO; -fentaNYL 100 MCG/2 ML INJECTION (J3010) As Ordered ONE
[2019-04-08 16:06] LABS: HEMATOCRIT 31.3 % (42.0-52.0); HEMOGLOBIN 7.8 g/dl (13.5-17.5); MEAN CORPUSCULAR HEMOGLOBIN 18.2 pg (27.0-33.0); MEAN CORPUSCULAR HGB CONC 24.9 g/dl (32.0-36.5); PLATELET COUNT, AUTOMATED 190 10^3/uL (150-450); RED BLOOD COUNT 4.29 10^6/uL (4.30-6.10); WHITE BLOOD COUNT 11.7 10^3/uL (4.0-10.0)
[2019-04-08 16:18] LABS: INR 1.32; PROTHROMBIN TIME 16.1 SECONDS (11.8-14.0)
[2019-04-08 16:29] LABS: BILIRUBIN,TOTAL 0.9 MG/DL (0.2-1.0); CALCIUM LEVEL 8.7 MG/DL (8.8-10.2); CREATININE FOR GFR 1.46 MG/DL (0.70-1.30); GLOMERULAR FILTRATION RATE 50.4 (>42); POTASSIUM SERUM 4.3 MEQ/L (3.5-5.1); TOTAL PROTEIN 5.6 GM/DL (6.4-8.2)
[2019-04-08] MEDS ORDERED: NS 500 ML IV ONE ×2 (18:15→18:30)
[2019-04-08] MEDS ORDERED: PANTOPRAZOLE 40MG INJ (PROTONIX) (C9113) IV ONE ×2 (18:45→21:30)
[2019-04-08] MEDS ORDERED: OCTREOTIDE ACETATE 100 MCG/ML VIAL (J2354) IV STA (21:27)
[2019-04-08] MEDS ORDERED: OCTREOTIDE ACETATE 1,200 MCG in NS 238.8 ML IV SCH (21:30)
[2019-04-08 22:15] VITALS: BP 124/77
== END 2019-04-08 22:55 | disposition short-term general hospital (02) ==
LOC: M ED 15:20 → EDBD 15:20 → M ED 22:55
DX: K92.2 Gastrointestinal hemorrhage, unspecified (principal); D64.9 Anemia, unspecified; E11.9 Type 2 diabetes mellitus without complications; I50.9 Heart failure, unspecified; J44.9 Chronic obstructive pulmonary disease, unspecified; I85.00 Esophageal varices without bleeding; I48.91 Unspecified atrial fibrillation; G47.33 Obstructive sleep apnea (adult) (pediatric); K74.60 Unspecified cirrhosis of liver; Z99.89 Dependence on other enabling machines and devices; Z88.1 Allergy status to other antibiotic agents; Z88.8 Allergy status to other drugs, medicaments and biological substances; Z79.899 Other long term (current) drug therapy; Z79.82 Long term (current) use of aspirin; Z79.4 Long term (current) use of insulin; Z79.01 Long term (current) use of anticoagulants; Z87.891 Personal history of nicotine dependence
CPT/HCPCS: 80053; 85027; 85610; 86850; 86870; 86880; 86900; 86901; 96361; 96374; 96375; 99285; C9113; J2354

== ENCOUNTER → 2019-09-14 | Outpatient (REF) | payer MEDICARE, BC, OTHER ==
[~2019-09-14] MED LIST changes: +PANT40TA29 PO; -PANT40TA3 PO
[2019-09-14 16:52] LABS: ALBUMIN 3.1 GM/DL (3.2-5.2); CHOLESTEROL RISK RATIO 3.228 (<5); CREATININE FOR GFR 1.53 MG/DL (0.70-1.30); FREE T4 1.26 NG/DL (0.76-1.46); GLOMERULAR FILTRATION RATE 47.6 (>42); POTASSIUM SERUM 4.4 MEQ/L (3.5-5.1); THYROID STIMULATING HORMONE 2.72 uIU/ML (0.358-3.740)
[2019-09-14 16:56] LABS: HEMOGLOBIN A1c 8.5 %
[2019-09-14 17:02] LABS: CREATININE, URINE 32.9 MG/DL; MALB URINE SIEMENS < 5.0 MG/L; MAU/CREAT RATIO 15.1 MCG/MG (0.0-30.0)
== END ==
LOC: M SFHCLERA 12:28
PROVIDERS: ATTEND Nurse Practitioner Family
DX: E11.9 Type 2 diabetes mellitus without complications (principal); I48.91 Unspecified atrial fibrillation; E03.9 Hypothyroidism, unspecified; Z13.220 Encounter for screening for lipoid disorders
CPT/HCPCS: 80053; 80061; 82043; 83036; 84439; 84443; G0463

== ENCOUNTER → 2020-04-13 | Outpatient (CLI) | payer MEDICARE, OTHER ==
[~2020-04-13] MED LIST changes: +COLC0.6T47 PO; -COLC1TAB13 PO
[2020-04-13 16:22] LABS: CALCIUM LEVEL 8.8 MG/DL (8.8-10.2); CREATININE FOR GFR 2.01 MG/DL (0.70-1.30); GLOMERULAR FILTRATION RATE 34.7 (>42); POTASSIUM SERUM 4.4 MEQ/L (3.5-5.1)
== END ==
LOC: M WUC 11:26
PROVIDERS: ATTEND Physician Assistant
DX: I50.32 Chronic diastolic (congestive) heart failure (principal)

== ENCOUNTER 2020-05-05 12:57 | Inpatient (IN) | payer MEDICARE, BC, OTHER ==
[2020-05-05] VITALS (9 sets, daily range): BP systolic 93–114; BP diastolic 52–62
[~2020-05-05] VITALS: Ht 188 cm; Wt 116.6 kg
[~2020-05-05 12:57] MED LIST changes: -ALDA25TA2 PO; -ALLO100T PO; -D31000TA2 PO; -MIDO5TA PO; -NOVOINJ3 SC; -PRESCAP PO; -PROT1TAB2 PO; -SODIUM BICARBONATE 8.4% INJ 50MEQ 50 ML VIAL As Ordered ONE; -[UNRECOGNIZED DRUG - OTHER] PO
[2020-05-05 14:20] LABS: HEMATOCRIT 22.8 % (42.0-52.0); MEAN CORPUSCULAR HEMOGLOBIN 16.5 pg (27.0-33.0); MEAN CORPUSCULAR HGB CONC 24.6 g/dl (32.0-36.5); MEAN CORPUSCULAR VOLUME 67.3 fl (80.0-96.0); PLATELET COUNT, AUTOMATED 190 10^3/uL (150-450); RED BLOOD COUNT 3.39 10^6/uL (4.30-6.10); WHITE BLOOD COUNT 10.9 10^3/uL (4.0-10.0)
[2020-05-05 14:22] LABS: HEMOGLOBIN 5.6 g/dl (13.5-17.5)
[2020-05-05 14:31] LABS: INR 1.26; PROTHROMBIN TIME 16.1 SECONDS (12.5-14.3)
[2020-05-05] MEDS ORDERED: PRESCAP PO (14:44)
[2020-05-05] MEDS ORDERED: COLE625TAB PO (14:44)
[2020-05-05] MEDS ORDERED: ALLO100T PO (14:44)
[2020-05-05] MEDS ORDERED: [UNRECOGNIZED DRUG - OTHER] PO (14:44)
[2020-05-05] MEDS ORDERED: D31000TA2 PO (14:44)
[2020-05-05] MEDS ORDERED: ELIQ2.5T PO (14:44)
[2020-05-05] MEDS ORDERED: NOVOINJ3 SC (14:44)
[2020-05-05] MEDS ORDERED: DEXTROSE 50% 50 ML SYRINGE IV PRN (15:25)
[2020-05-05] MEDS ORDERED: GLUCOSE 4GM CHEW TABLET PO PRN (15:25)
[2020-05-05] MEDS ORDERED: ALBUTEROL 90 MCG/ACT 8GM HFA INHALER INH PRN (15:25)
[2020-05-05] MEDS ORDERED: GLUCAGON INJ 1MG VIAL SC PRN (15:25)
[2020-05-05 15:49] LABS: ALBUMIN 2.9 GM/DL (3.2-5.2); CALCIUM LEVEL 8.5 MG/DL (8.8-10.2); GLOMERULAR FILTRATION RATE 34.9 (>42); POTASSIUM SERUM 4.6 MEQ/L (3.5-5.1)
[2020-05-05 15:49] LABS: RSV AMPLIFICATION NEGATIVE (NEGATIVE)
[2020-05-05 16:11] LABS: PERCENT SATURATION 2.7 % (19.7-50.0)
[2020-05-05] MEDS: HumaLOG INSULIN (NovoLOG) PER UNIT SC SCH ×2 (16:56→21:00)
[2020-05-05] MEDS: PANTOPRAZOLE 40MG VIAL (C9113 PER 1) IV SCH (17:06)
[2020-05-05] MEDS: cefTRIAXone SOD 1 GM in D5W MINI-BAG PLUS 50 ML IV SCH (17:06)
--- NOTE | 2020-05-05 18:06 | HPEPDOC ---
General Date of Admission May 05, 2020 at 15:18 Date of Service: May 05, 2020 Chief Complaint The patient is a 74-year-old male admitted with a reason for visit of Anasarca and Symptomatic Anemia. Source: Patient History of Present Illness Mr. Bassett is a 74-year-old male with atrial fibrillation on Eliquis, nonalcoholic cirrhosis, esophageal varices status post banding in [place], and chronic kidney disease stage III who presents with ascites and found to have symptomatic anemia. Patient has been doing well through the holidays. He was happy with this weight, but by the third week of February, he noted that his weight started to increase. Initially he was 241 pounds. Week by week, his weight increased by a pound. Today he weighed 266 pounds. In addition, he has no ticed that his shortness of breath has been worsening as his weight increased. He spoke with his physician, and he was scheduled for a paracentesis today. During his paracentesis, they removed 3500 mL of dark yellow fluid. 1300 mL her sent to the laboratory for further analysis. Analysis was for glucose and total protein. In addition they did labs and found him to be anemic with a hemoglobin of 5.6. He was sent to the ED. When I saw him in the ED, he was not in any distress. He is color blind and cannot tell if the color of his stools have changed. He is also hard of hearing. He denies any nausea or vomiting. Denies any abdominal pain. He occasionally has lightheadedness and dizziness. The ED did a rectal guaiac which was negative for blood. Patient will be admitted for severe anemia and diffuse anasarca. Home Medications Scheduled Allopurinol (Allopurinol) 100 Mg Tablet, 100 MG PO DAILY, (Reported) Apixaban (Eliquis) 2.5 Mg Tablet, 2.5 MG PO BID, (Reported) HELD SINCE TUESDAY 05/02 FOR PROCEDURE Ascorbic Acid (Vitamin C) 500 Mg Tablet, 500 MG PO DAILY, (Reported) TAKES AT NOON Cholecalciferol (Vitamin D3) (Vitamin D3) 1,000 Unit Tablet, 2,000 UNITS PO DAILY, (Reported) TAKES AT NOON Colesevelam Hydrochloride (Welchol) 625 Mg Tablet, 3,750 MG PO QHS, (Reported) Glucosamine/Chondroitin/C/Clay (Glucosamine-Chondroitin Capsul) 1 Cap Cap, 1 CAP PO BID, (Reported) Insulin Aspart (Novolog Flexpen) 100 Unit/1 Ml Insuln.pen, 1 DOSE SC AC, (Reported) PER SLIDING SCALE Insulin Detemir (Levemir) 1 Units/0.01 Ml Susp, 40 UNITS SC BID, (Reported) Levothyroxine Sodium (Levothyroxine Sodium) 175 Mcg Tab, 175 MCG PO QAM, (Reported) Multivitamin (Multivitamins) 1 Each Tablet, 1 TAB PO DAILY, (Reported) TAKES AT NOON Omeprazole (Omeprazole) 40 Mg Cap, 40 MG PO QHS, (Reported) Spironolactone (Spironolactone) 25 Mg Tablet, 25 MG PO BID, (Reported) Torsemide (Torsemide) 20 Mg Tablet, 60 MG PO BID, (Reported) Vit A/Vit C/Vit E/Zinc/Copper (Preservision Areds Softgel) 1 Each Capsule, 1 CAP PO BID, (Reported) [Previgen Otc] , 1 TAB PO DAILY, (Reported) Scheduled PRN Albuterol Sulfate (Proair Hfa) 108 Mcg/Act Aer, 2 PUFFS INH QID PRN for SHORTNESS OF BREATH, (Reported) Allergies Coded Allergies: valsartan (Verified Allergy, Unknown, UNKNOWN REACTION, 01/21/19) Quinolones (Verified Adverse Reaction, Mild, GI UPSET, 01/21/19) atorvastatin (Verified Adverse Reaction, Mild, GI UPSET, 01/21/19) Past Medical History Medical History 1. Nonalcoholic cirrhosis 2. Esophageal varices banded in [place] 3. Chronic kidney disease stage III 4. Gout 5. GERD 6. AAA 7. History of testicular cancer 8. Degenerative disc disease 9. PINKY 10. Atrial fibrillation on apixaban 11. Diabetes mellitus 12. CHF (echocardiogram in 2017 demonstrates EF 65%) 13. CAD Surgical History 1. Gallbladder 2. Right testicular surgery 3. Right knee arthroscopy 4. Left knee surgery in 2007 5. Subsequent left knee surgery for MRSA infection with subsequent skin graft in 2008 6. [place] ablation of the right leg 7. Cataract removal Family History Father: History of cholecystitis Mother: History of dementia Social History * Smoker: former Smoker (quit 11 years ago, smoked for 50 years) Alcohol: Denies Drugs: denies A-FIB/CHADSVASC A-FIB History Current/History of A-Fib/PAF?: Yes Current PO Anticoag Therapy: Yes Age/Risk Factor Scoring CHADSVASC: CHADSVASC Response (Comments) Value Age Risk Factor Age 65-74 years old 1 Gender Risk Factor Male 0 Hx of CHF Yes 1 Hx of HTN No 0 Hx of Stroke/TIA/or VTE No 0 Hx of Diabetes Yes 1 Hx of Vascular Disease Yes 1 Total 4 Treatment Treatment ordered: Apixaban Review of Systems Constitutional: Denies: Chills, Fever Eyes: Denies: Vision change ENT: Reports: Post Nasal Drip, Other Symptoms (hard of hearing) Skin: Reports: Lesions (surgical scars of his left leg) Pulmonary: Reports: Dyspnea (increasing dyspnea), Cough (occasional) Cardiovascular: Reports: Lt Headedness (occasional); Denies: Chest Pain Gastrointestinal: Denies: Nausea, Vomiting, Abdominal Pain Genitourinary: Denies: Dysuria Hematologic: Denies: Bruising Psych: Denies: Anxiety, Depression Physical Examination General Exam: Positive: Alert, Cooperative Eye Exam: Positive: EOMI, Other Eye Symptoms (eyes slightly barrett) ENT Exam: Positive: Other ENT (underneath tongue is yellow) Neck Exam: Positive: Supple Chest Exam: Positive: Diminished Heart Exam: Positive: Rate Normal, Regular Rhythm Abdomen Exam: Positive: Normal bowel sounds, Soft, Other (distended); Negative: Tenderness Extremity Exam: Positive: Edema (and lateral pitting edema) Neuro Exam: Positive: Normal Speech, Cranial Nerves 3-12 NL Psych Exam: Positive: Mental status NL, Mood NL Vital Signs Vital Signs Date Time Temp Pulse Resp B/P (MAP) Pulse Ox O2 Delivery O2 Flow Rate FiO2 05/05/20 16:28 97.3 85 18 95 05/05/20 16:27 104/61 (75) 05/05/20 13:11 Room Air Laboratory Data Labs 24H Laboratory Tests 2 05/05/20 13:25: Anion Gap 9, Glomerular Filtration Rate 34.9L, Calcium Level 8.5L, Iron Level 11L, Total Iron Binding Capacity 415, Transferrin % Saturation 2.7L, Ferritin 4L, Total Bilirubin 1.0, Aspartate Amino Transf (AST/SGOT) 15, Alanine Aminotransferase (ALT/SGPT) 18, Alkaline Phosphatase 231H, Lactate Dehydrogenase 243H, Total Protein 5.0L, Albumin 2.9L, Albumin/Globulin Ratio 1.4 05/05/20 14:04: Reticulocyte # (auto) 66.4, Nucleated Red Blood Cells % (auto) 0.2H, Percent Reticulocyte Count 1.9H, Reticulocyte Hemoglobin Equivalent 14.1L, Prothrombin Time 16.1H, Prothromb Time International Ratio 1.26 05/05/20 14:49: Coronavirus (COVID-19)(PCR) NEGATIVE, Influenza Type A (RT-PCR) NEGATIVE, Influenza Type B (RT-PCR) NEGATIVE, Respiratory Syncytial Virus (PCR) NEGATIVE 05/05/20 16:55: Bedside Glucose (Misc Panel) 97 CBC/BMP Laboratory Tests 05/05/20 13:25 05/05/20 14:04 Microbiology Microbiology 05/05/20 Blood Culture, Received Pending 05/05/20 Blood Culture, Received Pending Assessment/Plan Mr. Bassett is a 74-year-old male with atrial fibrillation on Eliquis, nonalcoholic cirrhosis, esophageal varices status post banding in [place], and chronic kidney disease stage III who presents with ascites and found to have severe anemia. He is on Eliquis, which is most likely promoted his bleeding. It seems to be a chronic bleed. His MCV has been gradually declining and he has iron deficiency anemia. We will hold his Eliquis and transfuse 2 units of blood. We'll continue his diuretics. Source of bleeding is unknown. We'll put him on a clear liquid diet and IV Protonix. Plan / VTE VTE Prophylaxis Ordered?: Yes Plan Plan 1. Severe anemia Unknown etiology In the ED, the guaiac was negative Patient denies abdominal pain, nausea, or vomiting Patient unable to tell me the color of his stool Ordered Hemoccult stool Iron studies suggest iron deficiency anemia. His MCV has gradually declined Reticulocyte index of 0.52 indicates hyperproliferation Hold Eliquis Transfuse 2 units of blood and recheck CBC 1 hour after Clear liquid diet and IV Protonix 2. Atrial fibrillation Currently not on rate control or rhythm control medication Cautious due to his low blood pressure Holding Eliquis Monitor on telemetry 3. Nonalcoholic Cirrhosis Child-Duenas Score of 8, class B Continue diuretics 4. Ascites Drained 3.5 L We'll try to add on cell count, Gram stain and culture, and fluid albumin Ceftriaxone for SBP prophylaxis in the setting of possible GI bleed 5. Diabetes mellitus Sliding scale insulin 6. DVT prophylaxis SCD and TEDs VIVIAN HWANG DO May 05, 2020 18:06
[2020-05-05] MEDS: SPIRONOLACTONE 25 MG TAB PO SCH (21:56)
[2020-05-05] MEDS: TORSEMIDE 20 MG TAB PO SCH (21:56)
[2020-05-06] VITALS (13 sets, daily range): BP systolic 92–105; BP diastolic 48–59
[2020-05-06 00:26] LABS: HEMATOCRIT 25.1 % (42.0-52.0); MEAN CORPUSCULAR HEMOGLOBIN 17.5 pg (27.0-33.0); MEAN CORPUSCULAR HGB CONC 25.9 g/dl (32.0-36.5); MEAN CORPUSCULAR VOLUME 67.7 fl (80.0-96.0); PLATELET COUNT, AUTOMATED 169 10^3/uL (150-450); RED BLOOD COUNT 3.71 10^6/uL (4.30-6.10); WHITE BLOOD COUNT 9.2 10^3/uL (4.0-10.0)
[2020-05-06 00:27] LABS: HEMOGLOBIN 6.5 g/dl (13.5-17.5)
[2020-05-06] MEDS: PANTOPRAZOLE 40MG VIAL (C9113 PER 1) IV SCH ×2 (04:09→17:48)
[2020-05-06] MEDS ORDERED: LEVOTHYROXINE 150MCG TABLET (0.15MG) PO SCH (06:00)
[2020-05-06] MEDS: TORSEMIDE 20 MG TAB PO SCH ×2 (08:02→20:12)
[2020-05-06] MEDS: allopurinoL 100 MG TAB PO SCH (08:02)
[2020-05-06] MEDS: SPIRONOLACTONE 25 MG TAB PO SCH ×2 (08:02→20:12)
[2020-05-06] MEDS: HumaLOG INSULIN (NovoLOG) PER UNIT SC SCH ×4 (08:03→21:00)
[2020-05-06 08:18] LABS: HEMATOCRIT 28.9 % (42.0-52.0); HEMOGLOBIN 7.7 g/dl (13.5-17.5); MEAN CORPUSCULAR HEMOGLOBIN 18.9 pg (27.0-33.0); MEAN CORPUSCULAR HGB CONC 26.6 g/dl (32.0-36.5); PLATELET COUNT, AUTOMATED 159 10^3/uL (150-450); RED BLOOD COUNT 4.07 10^6/uL (4.30-6.10); WHITE BLOOD COUNT 8.8 10^3/uL (4.0-10.0)
[2020-05-06 08:20] LABS: CREATININE FOR GFR 1.97 MG/DL (0.70-1.30); GLOMERULAR FILTRATION RATE 35.6 (>42); MAGNESIUM LEVEL 2.5 MG/DL (1.8-2.4); POTASSIUM SERUM 4.4 MEQ/L (3.5-5.1)
--- NOTE | 2020-05-06 11:40 | REP ---
INDICATION: Unilateral swelling COMPARISON: None. TECHNIQUE: Andino scale and color Doppler evaluation left lower extremity using linear high frequency transducer. FINDINGS: Ultrasound examination of the left lower extremity deep venous structures from the common femoral vein to the popliteal vein demonstrates normal compressibility flow and wave patterns in response to respiration and augmentation. There is no evidence for deep venous thrombosis. IMPRESSION: No evidence for deep venous thrombosis. <Electronically signed by Aric Montse > 05/06/20 1130
--- NOTE | 2020-05-06 11:41 | REP ---
INDICATION: Unilateral swelling COMPARISON: None. TECHNIQUE: Andino scale and color Doppler evaluation left upper extremity using linear high frequency transducer. FINDINGS: Ultrasound examination of the left upper extremity including axillary, jugular, subclavian, brachial, basilic, and cephalic veins demonstrate normal venous flow characteristics. Incidental pacemaker wire noted in the left subclavian vein. There is no evidence for deep venous thrombosis. IMPRESSION: No evidence for deep venous thrombosis. <Electronically signed by Aric Montes > 05/06/20 [id number]
[2020-05-06 12:14] LABS: HEMATOCRIT 31.8 % (42.0-52.0); HEMOGLOBIN 8.5 g/dl (13.5-17.5); MEAN CORPUSCULAR HGB CONC 26.7 g/dl (32.0-36.5); MEAN CORPUSCULAR VOLUME 71.1 fl (80.0-96.0); PLATELET COUNT, AUTOMATED 175 10^3/uL (150-450); RED BLOOD COUNT 4.47 10^6/uL (4.30-6.10); WHITE BLOOD COUNT 9.4 10^3/uL (4.0-10.0)
--- NOTE | 2020-05-06 13:48 | IPNPDOC ---
Subjective Date Seen The patient was seen on 05/06/20. Subjective Chief Complaint/HPI Mr. Bassett is a 74-year-old male with atrial fibrillation on Eliquis, nonalcoholic cirrhosis, esophageal varices status post banding in [place], and chronic kidney disease stage III who presents with ascites and found to have symptomatic anemia. Last night, he was given 2units of blood, but hemoglobin only increased to 6.5. He was given another 2units of blood, and hemoglobin increased to 7.7. This morning, when I saw him, he was in good spirits. Reports that his breathing has improved since the paracentesis. He also feels better after the transfusion. Denies chest pain or dyspnea. Rechecked his hemoglobin at noon. Increased from 7.7 to 8.5. Objective Physical Examination General Exam: Positive: Alert, Cooperative Eye Exam: Positive: EOMI, Other Eye Symptoms (eyes slightly barrett) ENT Exam: Positive: Other ENT (underneath tongue is yellow) Neck Exam: Positive: Supple Chest Exam: Positive: Diminished Heart Exam: Positive: Rate Normal, Regular Rhythm Abdomen Exam: Positive: Normal bowel sounds, Soft, Other (distended); Negative: Tenderness Extremity Exam: Positive: Edema (and lateral pitting edema) Neuro Exam: Positive: Normal Speech, Cranial Nerves 3-12 NL Psych Exam: Positive: Mental status NL, Mood NL Assessment /Plan Assessment Mr. Bassett is a 74-year-old male with atrial fibrillation on Eliquis, nonalcoholic cirrhosis, esophageal varices status post banding in [place], and chronic kidney disease stage III who presents with ascites and found to have severe anemia. He is on Eliquis, which is most likely promoted his bleeding. It seems to be a chronic bleed. His MCV has been gradually declining and he has iron deficiency anemia. We will hold his Eliquis and transfuse blood. He has received 4 units of pRBC during his hospitalization.. We'll continue his diuretics. We'll put him on a clear liquid diet and IV Protonix. Plan/VTE VTE Prophylaxis Ordered?: Yes Plan 1. Acute on chronic GI bleed -We are able to obtain occult stool today. Positive for blood -May have been a slow chronic bleed -Patient denies abdominal pain, nausea, or vomiting Patient unable to tell me the color of his stool Iron studies suggest iron deficiency anemia. His MCV has gradually declined Reticulocyte index of 0.52 indicates hyperproliferation Hold Kristyn Has received a total of 4u pRBC Clear liquid diet and IV Protonix -GI consulted, recommendations appreciated -Patient may need EGD and colonoscopy 2. Atrial fibrillation Currently not on rate control or rhythm control medication Cautious due to his low blood pressure Holding Kristyn Monitor on telemetry 3. Nonalcoholic Cirrhosis Child-Duenas Score of 8, class B Continue diuretics 4. Ascites Drained 3.5 L We'll try to add on cell count, Gram stain and culture, and fluid albumin Ceftriaxone for SBP prophylaxis in the setting of possible GI bleed 5. Diabetes mellitus Sliding scale insulin 6. DVT prophylaxis SCD and TEDs Disposition: Continue checking H&H. With positive Hemoccult stool, consulted GI, recommendations appreciated. Patient may need both upper and lower endoscopy. VS, I&O, 24H, Fishbone Vital Signs/I&O Vital Signs Date Time Temp Pulse Resp B/P (MAP) Pulse Ox O2 Delivery O2 Flow Rate FiO2 05/06/20 12:00 97.7 75 18 97/50 (66) 90 Room Air I&O- Last 24 Hours up to 6 AM 05/06/20 05:59 Intake Total 1200 ml Output Total 600 ml Balance 600 ml Laboratory Data 24H LABS Laboratory Tests 2 05/05/20 13:25: Anion Gap 9, Glomerular Filtration Rate 34.9L, Calcium Level 8.5L, Iron Level 11L, Total Iron Binding Capacity 415, Transferrin % Saturation 2.7L, Ferritin 4L, Total Bilirubin 1.0, Aspartate Amino Transf (AST/SGOT) 15, Alanine Aminotran sferase (ALT/SGPT) 18, Alkaline Phosphatase 231H, Lactate Dehydrogenase 243H, Total Protein 5.0L, Albumin 2.9L, Albumin/Globulin Ratio 1.4 05/05/20 14:04: Reticulocyte # (auto) 66.4, Nucleated Red Blood Cells % (auto) 0.2H, Percent Reticulocyte Count 1.9H, Reticulocyte Hemoglobin Equivalent 14.1L, Prothrombin Time 16.1H, Prothromb Time International Ratio 1.26 05/05/20 14:49: Coronavirus (COVID-19)(PCR) NEGATIVE, Influenza Type A (RT-PCR) NEGATIVE, Influ denise Type B (RT-PCR) NEGATIVE, Respiratory Syncytial Virus (PCR) NEGATIVE 05/05/20 16:55: Bedside Glucose (Misc Panel) 97 05/05/20 20:06: Bedside Glucose (Misc Panel) 155H 05/06/20 00:20: Nucleated Red Blood Cells % (auto) 0.3H 05/06/20 07:13: Bedside Glucose (Misc Panel) 147H 05/06/20 07:31: Nucleated Red Blood Cells % (auto) 0.3H, Anion Gap 7L, Glomerular Filtration Rate 35.6L, Calcium Level 8.0L, Magnesium Level 2.5H 05/06/20 10:36: Methicillin-Resist S.aureus DNA PCR NOT DETECTED 05/06/20 11:30: Bedside Glucose (Misc Panel) 148H 05/06/20 11:48: Nucleated Red Blood Cells % (auto) 0.4H CBC/BMP Laboratory Tests 05/05/20 13:25 05/05/20 14:04 05/06/20 00:20 05/06/20 07:31 05/06/20 11:48 Microbiology Microbiology 05/06/20 Stool Occult Blood (ALEM) - Final, Complete 05/05/20 Blood Culture, Received Pending 05/05/20 Blood Culture, Received Pending VIVIAN HWANG 12, 2021 13:48
[2020-05-06 14:06] LABS: SOURCE, BODY FLUID ALBUMIN ASCITES
[2020-05-06 14:35] LABS: APPEARANCE, BODY FLUID HAZY (CLEAR); ASCITES FL COLOR PALE YELLOW (COLORLESS); SOURCE, BODY FLUID ASCITES
--- NOTE | 2020-05-06 17:10 | CR.PDOC ---
General Date of Consultation: May 06, 2020 Referring Provider: VIVIAN MARCUS DO Attending Physician: LAVERN BONILLA MD Consultation Referring physician / PCP: Dr. Marcus / Derrick Bejarano FNP. Reason for consult: Anemia and Liver cirrhosis. HPI: 74-year-old male with atrial fibrillation on Eliquis, nonalcoholic cirrhosis, esophageal varices status post banding in [place] in Mar 2019, was recommended follow up EGD in 1 months but did not have it due to COVID pandemic, and chronic kidney disease stage III, had elective outpatient therapeutic paracentesis in on 05/05/2020, was sent to ER after his routine labs showed severe anemia. Patient reports he was gaining weight over the last few weeks and he is noticing shortness of breath with daily activities and also feeling weak ( progressively worsening). During his paracentesis, patient got 3500 mL of dark yellow fluid removed. Patient reports he is color blind and cannot tell if the color of his stools but reports he does think that for past few weeks he was having darker than usual stools. He denies any nausea or vomiting or abdominal pain. He occasionally has lightheadedness and dizziness.. Pertinent negative GI symptoms: Patient denies nausea, vomiting, diarrhea, abdominal pain, loss of appetite, early satiety or unintentional weight loss, hematemesis. Review of Systems: GI: as stated above CVS: No chest pain, No palpitations, No leg swelling RS: No Shortness of breath, No Wheezing ARABIC TRANSLATOR: No loss of consciousness, No focal motor weakness., Hematology: No easy bruising, No gum bleeding, Musculoskeletal: No joint pain, ambulating well. : No blood inurine, No burning sensation of the urine ENT: No ear discharge/ pain, No dysphagia. Eyes: No photophobia. Skin: No rash Home medications: reviewed. On Eliquis which is on hold since 1 -2 days. Medical h/o: As above. Surgical h/o: None on abdomen. Social h/o: Denies Alcohol, smoking, IVDA/ drugs. Former smoker. Family h/o of GI cancers - None Prior Endoscopies: Had multiple EGD and Colonoscopies in past. Last EGD in [place] inpatient for GI bleeding and had Banding in Mar 2019. Recommended repeat in 1 month, unclear if patient had repeat EGD. --- Colonoscopy last in [address] Tom noted multiple AVMs and few polyps removed noted hyperplastic polyps. Prior GI evaluation: None in [facility] Exam: Vitals: reviewed General: Alert and oriented x 3, not in acute distress HEENT: No pallor, no icterus. Normal oropharynx, NO cervical lymphadenopathy. Chest: symmetric with bilateral air entry, CVS: S1, S2 heard, Abdomen: non-distended, soft, non-tender, no rigidity or guarding, no palpable masses, normal bowel sounds heard. Rectal exam: Patient refused / Deferred at this time in view of scheduled colonoscopy. Extremities: pulses palpable, no pedal edema, ARABIC TRANSLATOR: no focal motor or sensory deficits. Moves all extremities Skin: no rash. Labs: reviewed. Imaging: none Impression: -- Abnormal hemoglobin and hematocrit levels with occult blood in stools and no overt external bleeding and recent h/o paracentesis, multiple comorbidities, on anticoagulation at home DDx likely chronic GI blood loss from portal hypertensity gastropathy vs AVMs vs less likely esophageal varices ( prior Variceal banding). -- Decompensated liver cirrhosis with ascites Needs further evaluation. Recommendations: -- Patient educated about the prior test results and all questions answered. -- Diet as tolerated for now. -- Avoid NSAIDs -- Obtain the ascitic fluid cell counts for further analysis. -- Monitor Hemoglobin and hematocrit. Transfuse to keep hemoglobin around 7-8gm/ dL. -- Based on the clinical course will plan for EGD and Colonoscopy. Patient educated about the procedure(s), indications, risks (including but not limited to bleeding, infection, perforation, anesthesia risks, including ), benefits and all alternatives including conservative measures without intervention. Patient verbalized understanding and consented for the procedure(s). 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 -- Please follow operative note for post procedure recommendations. -- Plan of care educated to patient and patient verbalized understanding and agreed. All questions answered. -- Recommendations communicated to primary team. Patient to follow with PCP upon discharge for routine medical care. Addendum: - Patient was seen by cardiology and was cleared for endoscopic procedures. Patient did not want to do Colonoscopy and wanted only the EGD. Patient is educated about the procedure indications, risks, benefits and alternatives. Vital Signs/I&O Vital Signs Date Time Temp Pulse Resp B/P (MAP) Pulse Ox O2 Delivery O2 Flow Rate FiO2 05/06/20 15:28 97.1 74 18 92/50 (64) 98 Room Air I&O- Last 24 Hours up to 6 AM 05/06/20 06:00 Intake Total 1250 ml Output Total 900 ml Balance 350 ml Laboratory Data Labs 24H Laboratory Tests 2 05/05/20 20:06: Bedside Glucose (Misc Panel) 155H 05/06/20 00:20: Nucleated Red Blood Cells % (auto) 0.3H 05/06/20 07:13: Bedside Glucose (Misc Panel) 147H 05/06/20 07:31: Nucleated Red Blood Cells % (auto) 0.3H, Anion Gap 7L, Glomerular Filtration Rate 35.6L, Calcium Level 8.0L, Magnesium Level 2.5H 05/06/20 10:36: Methicillin-Resist S.aureus DNA PCR NOT DETECTED 05/06/20 11:30: Bedside Glucose (Misc Panel) 148H 05/06/20 11:48: Nucleated Red Blood Cells % (auto) 0.4H CBC/BMP Laboratory Tests 05/06/20 00:20 05/06/20 07:31 05/06/20 11:48 Microbiology Microbiology 05/06/20 Stool Occult Blood (ALEM) - Final, Complete 05/05/20 Blood Culture - Preliminary, Resulted No growth after 24 hours . All specim... 05/05/20 Blood Culture - Preliminary, Resulted No growth after 24 hours . All specim... 05/05/20 Acid Fast Stain, Received Pending 05/05/20 Mycobacterial Culture, Received Pending 05/05/20 Fungal Smear, Received Pending 05/05/20 Fungal Culture, Received Pending Allergies Coded Allergies: valsartan (Verified Allergy, Unknown, UNKNOWN REACTION, 01/21/19) Quinolones (Verified Adverse Reaction, Mild, GI UPSET, 01/21/19) atorvastatin (Verified Adverse Reaction, Mild, GI UPSET, 01/21/19) Home Medications Scheduled Allopurinol (Allopurinol) 100 Mg Tablet, 100 MG PO DAILY, (Reported) Apixaban (Eliquis) 2.5 Mg Tablet, 2.5 MG PO BID, (Reported) HELD SINCE TUESDAY 05/02 FOR PROCEDURE Ascorbic Acid (Vitamin C) 500 Mg Tablet, 500 MG PO DAILY, (Reported) TAKES AT NOON Cholecalciferol (Vitamin D3) (Vitamin D3) 1,000 Unit Tablet, 2,000 UNITS PO DAILY, (Reported) TAKES AT NOON Colesevelam Hydrochloride (Welchol) 625 Mg Tablet, 3,750 MG PO QHS, (Reported) Glucosamine/Chondroitin/C/Clay (Glucosamine-Chondroitin Capsul) 1 Cap Cap, 1 CAP PO BID, (Reported) Insulin Aspart (Novolog Flexpen) 100 Unit/1 Ml Insuln.pen, 1 DOSE SC AC, (Reported) PER SLIDING SCALE Insulin Detemir (Levemir) 1 Units/0.01 Ml Susp, 40 UNITS SC BID, (Reported) Levothyroxine Sodium (Levothyroxine Sodium) 175 Mcg Tab, 175 MCG PO QAM, (Reported) Multivitamin (Multivitamins) 1 Each Tablet, 1 TAB PO DAILY, (Reported) TAKES AT NOON Omeprazole (Omeprazole) 40 Mg Cap, 40 MG PO QHS, (Reported) Spironolactone (Spironolactone) 25 Mg Tablet, 25 MG PO BID, (Reported) Torsemide (Torsemide) 20 Mg Tablet, 60 MG PO BID, (Reported) Vit A/Vit C/Vit E/Zinc/Copper (Preservision Areds Softgel) 1 Each Capsule, 1 CAP PO BID, (Reported) [Previgen Otc] , 1 TAB PO DAILY, (Reported) Scheduled PRN Albuterol Sulfate (Proair Hfa) 108 Mcg/Act Aer, 2 PUFFS INH QID PRN for SHORTNESS OF BREATH, (Reported) LAVERN BONILLA MD May 06, 2020 17:10
[2020-05-06] MEDS: cefTRIAXone SOD 1 GM in D5W MINI-BAG PLUS 50 ML IV SCH (17:47)
[2020-05-06 19:05] LABS: HEMOGLOBIN 8.6 g/dl (13.5-17.5); MEAN CORPUSCULAR HEMOGLOBIN 19.2 pg (27.0-33.0); MEAN CORPUSCULAR HGB CONC 26.9 g/dl (32.0-36.5); MEAN CORPUSCULAR VOLUME 71.3 fl (80.0-96.0); PLATELET COUNT, AUTOMATED 169 10^3/uL (150-450); RED BLOOD COUNT 4.49 10^6/uL (4.30-6.10); WHITE BLOOD COUNT 10.1 10^3/uL (4.0-10.0)
[2020-05-07] VITALS: BP 88/48
[2020-05-07 00:17] LABS: HEMATOCRIT 31.6 % (42.0-52.0); HEMOGLOBIN 8.3 g/dl (13.5-17.5); MEAN CORPUSCULAR HEMOGLOBIN 18.9 pg (27.0-33.0); MEAN CORPUSCULAR HGB CONC 26.3 g/dl (32.0-36.5); MEAN CORPUSCULAR VOLUME 72.1 fl (80.0-96.0); PLATELET COUNT, AUTOMATED 152 10^3/uL (150-450); RED BLOOD COUNT 4.38 10^6/uL (4.30-6.10); WHITE BLOOD COUNT 9.9 10^3/uL (4.0-10.0)
[2020-05-07 04:00] VITALS: BP 92/40
[2020-05-07] MEDS: PANTOPRAZOLE 40MG VIAL (C9113 PER 1) IV SCH ×2 (05:36→16:57)
[2020-05-07] MEDS: LEVOTHYROXINE 100MCG TABLET (0.1MG) PO SCH (05:48)
[2020-05-07] MEDS: LEVOTHYROXINE 75MCG TABLET (0.075MG) PO SCH (05:48)
[2020-05-07 06:11] LABS: HEMATOCRIT 30.9 % (42.0-52.0); HEMOGLOBIN 8.3 g/dl (13.5-17.5); MEAN CORPUSCULAR HGB CONC 26.9 g/dl (32.0-36.5); MEAN CORPUSCULAR VOLUME 70.7 fl (80.0-96.0); PLATELET COUNT, AUTOMATED 152 10^3/uL (150-450); RED BLOOD COUNT 4.37 10^6/uL (4.30-6.10); WHITE BLOOD COUNT 9.7 10^3/uL (4.0-10.0)
[2020-05-07 06:24] LABS: CALCIUM LEVEL 8.1 MG/DL (8.8-10.2); CREATININE FOR GFR 1.98 MG/DL (0.70-1.30); GLOMERULAR FILTRATION RATE 35.4 (>42); POTASSIUM SERUM 4.1 MEQ/L (3.5-5.1)
[2020-05-07 08:00] VITALS: BP 98/44
[2020-05-07] MEDS: SPIRONOLACTONE 25 MG TAB PO SCH ×2 (08:47→20:20)
[2020-05-07] MEDS: allopurinoL 100 MG TAB PO SCH (08:47)
[2020-05-07] MEDS: TORSEMIDE 20 MG TAB PO SCH ×2 (08:47→20:20)
[2020-05-07] MEDS: HumaLOG INSULIN (NovoLOG) PER UNIT SC SCH ×4 (08:47→20:20)
[2020-05-07 12:00] VITALS: BP 110/68
--- NOTE | 2020-05-07 13:21 | IPNPDOC ---
Subjective Date Seen The patient was seen on 05/07/20. Subjective Chief Complaint/HPI Mr. Bassett is a 74-year-old male with atrial fibrillation on Eliquis, nonalcoholic cirrhosis, esophageal varices status post banding in [place], and chronic kidney disease stage III who presents with ascites and found to have symptomatic anemia. Spoke with GI yesterday evening. Recommended consulting cardiology to discuss about anticoagulation need and about clearance for EGD. This morning, patient denies chest pain or dyspnea. Abdomen glory hole tender for paracentesis. Otherwise, I reached out to Cardiology who will see the patient today. Recommendations appreciated for anticoagulation and cardiac clearance for endoscopy Objective Physical Examination General Exam: Positive: Alert, Cooperative Eye Exam: Positive: EOMI, Other Eye Symptoms (eyes slightly barrett) ENT Exam: Positive: Other ENT (underneath tongue is yellow) Neck Exam: Positive: Supple Chest Exam: Positive: Diminished Heart Exam: Positive: Rate Normal, Regular Rhythm Abdomen Exam: Positive: Normal bowel sounds, Soft, Other (distended); Negative: Tenderness Extremity Exam: Positive: Edema (and lateral pitting edema) Neuro Exam: Positive: Normal Speech, Cranial Nerves 3-12 NL Psych Exam: Positive: Mental status NL, Mood NL Assessment /Plan Assessment Mr. Bassett is a 74-year-old male with atrial fibrillation on Eliquis, nonalcoholic cirrhosis, esophageal varices status post banding in [place], and chronic kidney disease stage III who presents with ascites and found to have severe anemia. He is on Eliquis, which is most likely promoted his bleeding. It seems to be a chronic bleed. His MCV has been gradually declining and he has iron deficiency anemia. We will hold his Eliquis and transfuse blood. He has received 4 units of pRBC during his hospitalization. Otherwise, continue with diuresis. Spoke with GI who recommended cardiology consultation for anticoagulation need and cardiac clearance for endoscopy. Planning for both upper and lower. Consulted cardiology, recommendations appreciated. Plan/VTE VTE Prophylaxis Ordered?: Yes Plan 1. Acute on chronic GI bleed -Occult stool positive for blood -May have been a slow chronic bleed -Patient denies abdominal pain, nausea, or vomiting Patient unable to tell me the color of his stool Iron studies suggest iron deficiency anemia. His MCV has gradually declined Reticulocyte index of 0.52 indicates hyperproliferation Hold Eliquis and continue IV Protonix Has received a total of 4u pRBC -GI consulted, recommendations appreciated. Planning for upper and lower endos copy on Saturday if we are able to obtain cardiac clearance -Cardiology consulted, recommendations appreciated. Consultation for anticoagulation need and cardiac clearance for endoscopy 2. Atrial fibrillation Currently not on rate control or rhythm control medication Cautious due to his low blood pressure Holding Eliquis Monitor on telemetry 3. Nonalcoholic Cirrhosis Child-Duenas Score of 8, class B Continue diuretics 4. Ascites Drained 3.5 L We'll try to add on cell count, Gram stain and culture, and fluid albumin Ceftriaxone for SBP prophylaxis in the setting of possible GI bleed 5. Diabetes mellitus Sliding scale insulin 6. DVT prophylaxis SCD and TEDs Disposition: Continue checking H&H. GI consulted, recommending cardiac consultation for anticoagulation need and cardiac clearance for endoscopy. Cardiology consulted, recommendations appreciated. VS, I&O, 24H, Fishbone Vital Signs/I&O Vital Signs Date Time Temp Pulse Resp B/P (MAP) Pulse Ox O2 Delivery O2 Flow Rate FiO2 05/07/20 12:00 98.6 90 18 110/68 (82) 96 Room Air I&O- Last 24 Hours up to 6 AM 05/07/20 06:00 Intake Total 1960 ml Output Total 1075 ml Balance 885 ml Laboratory Data 24H LABS Laboratory Tests 2 05/06/20 18:00: Bedside Glucose (Misc Panel) 180H 05/06/20 18:22: Nucleated Red Blood Cells % (auto) 0.4H 05/06/20 21:48: Bedside Glucose (Misc Panel) 189H 05/06/20 23:39: Nucleated Red Blood Cells % (auto) 0.2H 05/07/20 05:47: Nucleated Red Blood Cells % (auto) 0.4H, Anion Gap 6L, Glomerular Filtration Rate 35.4L, Calcium Level 8.1L 05/07/20 11:27: Bedside Glucose (Misc Panel) 205H CBC/BMP Laboratory Tests 05/06/20 18:22 05/06/20 23:39 05/07/20 05:47 Microbiology Microbiology 05/06/20 Stool Occult Blood (ALEM) - Final, Complete 05/05/20 Blood Culture - Preliminary, Resulted No growth after 24 hours . All specim... 05/05/20 Blood Culture - Preliminary, Resulted No growth after 24 hours . All specim... 3/11/21 Acid Fast Stain, Received Pending 05/05/20 Mycobacterial Culture, Received Pending 05/05/20 Fungal Smear, Received Pending 05/05/20 Fungal Culture, Received Pending VIVIAN HWANG 13, 2021 13:21
[2020-05-07 16:00] VITALS: BP 100/60
[2020-05-07] MEDS: cefTRIAXone SOD 1 GM in D5W MINI-BAG PLUS 50 ML IV SCH (16:57)
[2020-05-07] MEDS ORDERED: RIVAROXABAN 10 MG TAB (XARELTO) PO SCH (18:00)
[2020-05-07 18:03] LABS: HEMATOCRIT 33.4 % (42.0-52.0); HEMOGLOBIN 8.8 g/dl (13.5-17.5); MEAN CORPUSCULAR HEMOGLOBIN 19.2 pg (27.0-33.0); MEAN CORPUSCULAR HGB CONC 26.3 g/dl (32.0-36.5); MEAN CORPUSCULAR VOLUME 72.9 fl (80.0-96.0); PLATELET COUNT, AUTOMATED 156 10^3/uL (150-450); RED BLOOD COUNT 4.58 10^6/uL (4.30-6.10); WHITE BLOOD COUNT 11.5 10^3/uL (4.0-10.0)
[2020-05-07 20:00] VITALS: BP 108/58
[2020-05-08] VITALS (7 sets, daily range): BP systolic 78–110; BP diastolic 40–61
[2020-05-08] MEDS: PANTOPRAZOLE 40MG VIAL (C9113 PER 1) IV SCH ×2 (04:19→16:48)
[2020-05-08] MEDS: LEVOTHYROXINE 75MCG TABLET (0.075MG) PO SCH (05:16)
[2020-05-08] MEDS: LEVOTHYROXINE 100MCG TABLET (0.1MG) PO SCH (05:16)
[2020-05-08 06:10] LABS: HEMATOCRIT 29.8 % (42.0-52.0); HEMOGLOBIN 7.9 g/dl (13.5-17.5); MEAN CORPUSCULAR HEMOGLOBIN 19.2 pg (27.0-33.0); MEAN CORPUSCULAR HGB CONC 26.5 g/dl (32.0-36.5); MEAN CORPUSCULAR VOLUME 72.3 fl (80.0-96.0); PLATELET COUNT, AUTOMATED 136 10^3/uL (150-450); RED BLOOD COUNT 4.12 10^6/uL (4.30-6.10); WHITE BLOOD COUNT 9.2 10^3/uL (4.0-10.0)
[2020-05-08 06:34] LABS: CALCIUM LEVEL 7.9 MG/DL (8.8-10.2); CREATININE FOR GFR 2.18 MG/DL (0.70-1.30); GLOMERULAR FILTRATION RATE 31.6 (>42); POTASSIUM SERUM 4.1 MEQ/L (3.5-5.1)
[2020-05-08] MEDS: HumaLOG INSULIN (NovoLOG) PER UNIT SC SCH ×4 (08:30→20:26)
[2020-05-08] MEDS: allopurinoL 100 MG TAB PO SCH (08:30)
[2020-05-08] MEDS: TORSEMIDE 20 MG TAB PO SCH ×2 (08:30→21:06)
[2020-05-08] MEDS: SPIRONOLACTONE 25 MG TAB PO SCH ×2 (08:30→21:06)
--- NOTE | 2020-05-08 08:43 | ECGEPIP ---
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
--- NOTE | 2020-05-08 12:01 | IPNPDOC ---
Subjective Date Seen The patient was seen on 05/08/20. Subjective Chief Complaint/HPI Mr. Bassett is a 74-year-old male with atrial fibrillation on Eliquis, nonalcoholic cirrhosis, esophageal varices status post banding in [place], and chronic kidney disease stage III who presents with ascites and found to have symptomatic anemia. This morning, he was feeling well. Since the paracentesis is breathing and moving better. Cardiology saw patient last night, and cleared patient for EGD. Patient only wants EGD inpatient and will pursue colonoscopy outpatient. Switching patient to clear liquid diet today. Otherwise, hemoglobin dropped to 7.9 from 8.8. Will recheck CBC in the afternoon. Objective Physical Examination General Exam: Positive: Alert, Cooperative Eye Exam: Positive: EOMI, Other Eye Symptoms (eyes slightly barrett) ENT Exam: Positive: Other ENT (underneath tongue is yellow) Neck Exam: Positive: Supple Chest Exam: Positive: Diminished Heart Exam: Positive: Rate Normal, Regular Rhythm Abdomen Exam: Positive: Normal bowel sounds, Soft, Other (distended); Negative: Tenderness Extremity Exam: Positive: Edema (and lateral pitting edema) Neuro Exam: Positive: Normal Speech, Cranial Nerves 3-12 NL Psych Exam: Positive: Mental status NL, Mood NL Assessment /Plan Assessment Mr. Bassett is a 74-year-old male with atrial fibrillation on Eliquis, nonalcoholic cirrhosis, esophageal varices status post banding in [place], and chronic kidney disease stage III who presents with ascites and found to have severe anemia. He is on Eliquis, which is most likely promoted his bleeding. It seems to be a chronic bleed. His MCV has been gradually declining and he has iron deficiency anemia. We will hold his Eliquis and transfuse blood. He has re ceived 4 units of pRBC during his hospitalization. Otherwise, continue with diuresis. Spoke with GI who recommended cardiology consultation for anticoagulation need and cardiac clearance for endoscopy. Consulted cardiology and cleared patient for EGD. Plan/VTE VTE Prophylaxis Ordered?: Yes Plan 1. Acute on chronic GI bleed -Occult stool positive for blood -May have been a slow chronic bleed -Patient denies abdominal pain, nausea, or vomiting Patient unable to tell me the color of his stool Iron studies suggest iron deficiency anemia. His MCV has gradually declined Reticulocyte index of 0.52 indicates hyperproliferation Hold Eliquis and continue IV Protonix Has received a total of 4u pRBC -GI consulted, recommendations appreciated. Planning for upper endoscopy on Saturday -Cardiology consulted, recommendations appreciated. Patient cleared from cardiology for EGD 2. Atrial fibrillation Currently not on rate control or rhythm control medication Cautious due to his low blood pressure Holding Eliquis Monitor on telemetry 3. Nonalcoholic Cirrhosis Child-Duenas Score of 8, class B Continue diuretics 4. Ascites Drained 3.5 L SA-AG is 2.5, most likely portal hypertension Ceftriaxone for SBP prophylaxis in the setting of possible GI bleed 5. Diabetes mellitus Sliding scale insulin 6. DVT prophylaxis SCD and TEDs Disposition: Continue checking H&H. GI consulted, anticipating EGD on Saturday VS, I&O, 24H, Fishbone Vital Signs/I&O Vital Signs Date Time Temp Pulse Resp B/P (MAP) Pulse Ox O2 Delivery O2 Flow Rate FiO2 05/08/20 08:00 97.4 89 18 100/56 (71) 98 Room Air I&O- Last 24 Hours up to 6 AM 05/08/20 06:00 Intake Total 2390 ml Output Total 1025 ml Balance 1365 ml Laboratory Data 24H LABS Laboratory Tests 2 05/07/20 16:28: Bedside Glucose (Misc Panel) 210H 05/07/20 17:43: Nucleated Red Blood Cells % (auto) 0.3H 05/07/20 20:17: Bedside Glucose (Misc Panel) 240H 05/08/20 05:41: Nucleated Red Blood Cells % (auto) 0.2H, Anion Gap 8, Glomerular Filtration Rate 31.6L, Calcium Level 7.9L CBC/BMP Laboratory Tests 05/07/20 17:43 05/08/20 05:41 Microbiology Microbiology 05/06/20 Stool Occult Blood (ALEM) - Final, Complete 05/05/20 Blood Culture - Preliminary, Resulted No Growth after 48 hours. All Specime... 05/05/20 Blood Culture - Preliminary, Resulted No Growth after 48 hours. All Specime... 05/05/20 Acid Fast Stain, Received Pending 05/05/20 Mycobacterial Culture, Received Pending 05/05/20 Fungal Smear, Received Pending 05/05/20 Fungal Culture, Received Pending VIVIAN HWANG 14, 2021 12:01
[2020-05-08 14:11] LABS: HEMATOCRIT 33.8 % (42.0-52.0); HEMOGLOBIN 8.8 g/dl (13.5-17.5); MEAN CORPUSCULAR HEMOGLOBIN 19.1 pg (27.0-33.0); MEAN CORPUSCULAR VOLUME 73.3 fl (80.0-96.0); RED BLOOD COUNT 4.61 10^6/uL (4.30-6.10); WHITE BLOOD COUNT 11.4 10^3/uL (4.0-10.0)
[2020-05-08] MEDS: cefTRIAXone SOD 1 GM in D5W MINI-BAG PLUS 50 ML IV SCH (16:48)
[2020-05-08] MEDS ORDERED: IRON SUCROSE 100MG 5ML VIAL (J1756 PER 1MG) IV ONE (17:40)
[2020-05-08] MEDS ORDERED: IRON SUCROSE 200 MG in NS 100 ML OVER 1 HR IV ONE (20:00)
[2020-05-09] VITALS (9 sets, daily range): BP systolic 80–110; BP diastolic 40–86
[2020-05-09] MEDS: LEVOTHYROXINE 100MCG TABLET (0.1MG) PO SCH (05:59)
[2020-05-09] MEDS: PANTOPRAZOLE 40MG VIAL (C9113 PER 1) IV SCH ×2 (05:59→15:41)
[2020-05-09] MEDS: LEVOTHYROXINE 75MCG TABLET (0.075MG) PO SCH (05:59)
[2020-05-09 06:11] LABS: HEMATOCRIT 32.3 % (42.0-52.0); HEMOGLOBIN 8.4 g/dl (13.5-17.5); MEAN CORPUSCULAR HEMOGLOBIN 18.9 pg (27.0-33.0); MEAN CORPUSCULAR VOLUME 72.7 fl (80.0-96.0); PLATELET COUNT, AUTOMATED 144 10^3/uL (150-450); RED BLOOD COUNT 4.44 10^6/uL (4.30-6.10); WHITE BLOOD COUNT 9.2 10^3/uL (4.0-10.0)
[2020-05-09 06:28] LABS: CALCIUM LEVEL 8.6 MG/DL (8.8-10.2); CREATININE FOR GFR 1.97 MG/DL (0.70-1.30); GLOMERULAR FILTRATION RATE 35.6 (>42); POTASSIUM SERUM 4.1 MEQ/L (3.5-5.1)
[2020-05-09] MEDS: HumaLOG INSULIN (NovoLOG) PER UNIT SC SCH ×4 (07:25→21:00)
[2020-05-09] MEDS ORDERED: SLF 3 ML SYR IV PRN (08:05)
[2020-05-09] MEDS: SPIRONOLACTONE 25 MG TAB PO SCH ×2 (09:00→21:07)
[2020-05-09] MEDS: TORSEMIDE 20 MG TAB PO SCH (09:00)
[2020-05-09] MEDS: allopurinoL 100 MG TAB PO SCH (09:08)
--- NOTE | 2020-05-09 10:14 | CR ---
CONSULTATION DATE: 05/07/2020 REFERRING PHYSICIAN: Arturo Marcus DO INDICATION: Clearance for colonoscopy/EGD. HISTORY OF PRESENT ILLNESS: Mr. Bassett is previously unknown to me. He has been a patient of Dr. Wyman and Luis Armando for many years. He was admitted to our facility for severe anemia. He received blood transfusions and further lab work revealed severe iron deficiency. This is in the setting of known liver cirrhosis and history of esophageal varices. Consequently, he is tentatively scheduled to undergo an EGD and colonoscopy on Saturday. The patient apparently had an unpleasant experience with these procedures in our facility in the past and consequently was reluctant to proceed and he wanted to have a cardiology opinion regarding this issue. When I entered the room, the patient gave me a long history of his experiences with various gastrointestinal instrumentations. He is adamant and under no circumstances will have colonoscopy in this setting but he is considering to pursuing an EGD. He does report that he had history of GI bleeding in the past but he does no recall any whitney melena or obvious bleeding. He remembers, though, that in February of this year he once had fairly profuse bleeding where he believes that he lost a considerable amount of blood but it turned out that he had a cut on his scrotum which was believed to be the source. As far as the cardiac history is concerned, the patient has chronic atrial fibrillation going back for years. He his been chronically anticoagulated with Eliquis and has had a [employer] single-chamber pacemaker in place. He has no history of coronary artery disease but he does have obstructive sleep apnea, hypertensive heart disease and he had a history of biventricular congestive heart failure. PAST MEDICAL HISTORY: 1. Chronic atrial fibrillation as above. 2. Liver cirrhosis of unclear etiology. It is believed to be nonalcohol related but it is not clear to me whether it is due to congestive heart failure or whether it is consequence of fatty liver. The patient was never given an explanation as to why the liver cirrhosis is present. 3. Chronic hypertension. 4. Obstructive sleep apnea on CPAP. 5. Gout. 6. GERD. 7. Remote history of testicular cancer. 8. Abdominal aortic aneurysm. 9. Type 2 diabetes. SURGICAL HISTORY: 1. Cholecystectomy. 2. Right testicular resection for cancer. 3. Right knee arthroscopy. 4. Very extensive surgery on his left knee in 2007 after fracture with subsequent infection leading to skin grafting. 5. Cataract surgery. 6. Varicocele, probably ligation. OUTPATIENT MEDICATIONS: 1. Allopurinol 100 a day. 2. Apixaban 2.5 twice a day. 3. Vitamin C. 4. Vitamin D3. 5. Welchol. 6. Insulin as directed. 7. Levothyroxine 175 mcg a day. 8. Multivitamin. 9. Omeprazole 40 a day. 10. Spironolactone 25 twice a day. 11. Torsemide 60 twice a day. 12. Multivitamin. ALLERGIES: HE REPORTS ALLERGIES AND INTOLERANCE TO VALSARTAN, QUINOLONES AND LIPITOR. FAMILY HISTORY: Father of cholecystitis and mother of dementia. SOCIAL HISTORY: The patient used to smoke but quit more than ten years ago. He quit drinking alcohol more than 25 years ago. 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 REVIEW OF SYSTEMS: He does admit that since two months ago, he put on weight. He is not exactly certain how much but he feels much improved after paracentesis was performed and received blood. He tells me that his baseline which was present probably about three months ago, he is able to walk easily a block at slow pace with his cane. He is typically limited by dyspnea. He denies any chest discomfort. He denies any history of syncope. He denies any hematemesis, hemoptysis and he denies any history of melena that he could recognize (patient is color blind). No recent genitourinary symptoms since the bleeding from his scrotum in February. He does have chronic peripheral edema and has been using elastic stockings for many years. No history of neurologic symptoms. On further questioning, though, he admits that he occasionally gets slightly confused but never had any whitney disorientation. PHYSICAL EXAMINATION: Mr. Bassett is a 74-year-old man, very pleasant, good historian. He is alert and oriented x3. He appears to be a little older than his age and chronically ill. Vital signs today: Blood pressure 98/44, heart rate 77, irregularly irregular. He is afebrile. Saturation is 93% on room air. His fluid balance yesterday was reported as positive 600. Weight is recorded as 119 which is up considering weight 3 months ago. His JVP does not appear grossly elevated, surprisingly. I do not appreciate carotid bruit. Lungs are clear to auscultation with the exception of right base that is diminished. Heart exam reveals irregularly irregular rhythm. He has a murmur, about II/ intensity that is systolic and blowing in character, best heard over the lower sternum, I suspect due to tricuspid insufficiency. I do not appreciate any diastolic murmur. There is a pacemaker in the left subclavian pocket. Abdomen is protuberant. There is some shifting dullness. The liver is about 5 cm below the lower ribs. Bowel sounds are present. Extremities have mild edema. There are scars on his left knee after surgery. Elastic stockings are in place. He haider not have any tremor. LABORATORY DATA: His CBC as of today reveals WBC count 9.7, hemoglobin 8.3, hematocrit 30.9, platelet count 152,000. Basic metabolic panel: Sodium 140, potassium 4.1, BUN 51, creatinine 2.0 and glucose 190. Liver function tests reveal bilirubin 1.0, albumin 2.9 and iron level was 11 with saturation only 2.7%. INR was 1.3. He had ultrasounds of the lower extremities that reveal no evidence for DVT. I did not see an EKG on file. Review of telemetry tracing reveals atrial fibrillation with controlled rate intermittent on demand ventricular pacing and occasional PVCs including rare triplets. ASSESSMENT AND PLAN: Mr. Bassett is a 74-year-old man who has longstanding history of hypertensive heart disease, chronic atrial fibrillation, obstructive sleep apnea treated with CPAP and secondary pulmonary hypertension who presented with severe anemia and ascites. He does have liver cirrhosis of unclear etiology, possibly related to congestive heart failure. I was asked specific question whether he can proceed with EGD (patient adamantly refuses any consideration of colonoscopy). In my opinion, he should. He is severely iron deficient and consequently it is likely that there has been a chronic bleeding issue and varices are the most suspected cause. The procedure is a relatively low risk undertaking. From a cardiac perspective, he should get the magnet over device for the duration of the procedure but otherwise I do not recommend any specific interventions. I would hold anticoagulation until it is accomplished. The second issue is that of management of his congestive heart failure and severe ascites. He currently receives relatively high-dose diuretics and there has been decline in renal function which in my opinion likely indicates progression of disease. My recommendation will be to advance the dose of diuretics a little further in order to achieve a negative balance but we might be limited by hypotension. He has been followed very closely by Dr. Durán/Garo' office for many years and I would leave further guidance to them. I will pass him on Dr. Wyman/Dr. Durán on Saturday. JAIMIE
[2020-05-09] MEDS: SLF 3 ML SYR IV SCH ×2 (13:10→21:07)
[2020-05-09] MEDS ORDERED: fentaNYL 100 MCG/2 ML INJECTION (J3010) As Ordered ONE (13:26)
[2020-05-09] MEDS ORDERED: propofoL 200 MG/20 ML VIAL As Ordered ONE (13:26)
[2020-05-09] MEDS ORDERED: LIDOCAINE 2% 100MG/5ML SDV (FOR ANES.) As Ordered ONE (13:27)
[2020-05-09] MEDS ORDERED: ONDANSETRON 4MG/2ML VIAL As Ordered ONE (14:30)
--- NOTE | 2020-05-09 14:46 | ROOR ---
Patient Name: Leland Bassett Procedure Date: 05/09/2020 2:02 PM Date of : 1945 Age: 74 Room: [facility] Gender: Male Note Status: Finalized Procedure: Upper GI endoscopy Indications: Acute post hemorrhagic anemia Providers: Eric Prince MD Referring MD: 2. Inpatient 2. Inpatient, [place] OLIVO Requesting Provider: Medicines: Monitored Anesthesia Care Complications: No immediate complications. Procedure: Pre-Anesthesia Assessment: - Prior to the procedure, a History and Physical was performed, and patient medications and allergies were reviewed. The patient is competent. The risks and benefits of the procedure and the sedation options and risks were discussed with the patient. All questions were answered and informed consent was obtained. Patient identification and proposed procedure were verified by the physician, the nurse and the anesthesiologist in the procedure room. Respiratory Examination: clear to auscultation. CV Examination: normal. Prophylactic Antibiotics: The patient does not require prophylactic antibiotics. Prior Anticoagulants: The patient has taken Eliquis (apixaban), last dose was 6 days prior to procedure. ASA Grade Assessment: II - A patient with mild systemic disease. After reviewing the risks and benefits, the patient was deemed in satisfactory condition to undergo the procedure. The anesthesia plan was to use monitored anesthesia care (MAC). Immediately prior to administration of medications, the patient was re-assessed for adequacy to receive sedatives. The heart rate, respiratory rate, oxygen saturations, blood pressure, adequacy of pulmonary ventilation, and response to care were monitored throughout the procedure. The physical status of the patient was re-assessed after the procedure. The Endoscope was introduced through the mouth, and advanced to the second part of duodenum. The upper GI endoscopy was accomplished without difficulty. The patient tolerated the procedure well. Findings: Three columns of non-bleeding grade III, large (> 5 mm) varices were found in the lower third of the esophagus,. Stigmata of recent bleeding were evident and red rehan signs were present. Stigmata of prior treatment were evident. Scarring from prior treatment was visible. Evidence of partial eradication was visible. Mild gastric antral vascular ectasia without bleeding was present in the gastric antrum. One 20 mm submucosal papule (nodule) with no bleeding and no stigmata of recent bleeding was found on the greater curvature of the gastric body. Mild portal hypertensive gastropathy was found in the gastric body and in the gastric antrum. The duodenal bulb and second portion of the duodenum were normal. Impression: - Recently bleeding grade III and large (> 5 mm) esophageal varices. - Gastric antral vascular ectasia without bleeding. - One submucosal papule (nodule) found in the stomach. - Portal hypertensive gastropathy. - Normal duodenal bulb and second portion of the duodenum. - No specimens collected. Recommendation: - Patient has a contact number available for emergencies. The signs and symptoms of potential delayed complications were discussed with the patient. Return to normal activities tomorrow. Written discharge instructions were provided to the patient. - High fiber diet. - Continue present medications. - No aspirin, ibuprofen, naproxen, or other non-steroidal anti-inflammatory drugs. - NPO for 6 hours and then start on clear liquid diet for 12 hours and then advance if tolerated to low sodium diet ( <2gm per day). - IV PPI drip for 24 hours and then switch to oral PPI for total of 6 weeks. - Continue IV Octreotide drip of 50mcg/hr for 3 days - Antibiotics for 7 days(ceftriaxone - 1 gm once daily while inpateint and switch to Oral ciprofloxacin when discharge for total course of 7 days). - Monitor Hemoglobin/Hematocrit every 12- 24 hours: transfuse as needed to maintain Hb around 7-8. ( Do Not transfuse over that level). - Do Not place NG or OG tube. - Give antiemetics IV PRN for 24 hours. - Update GI if any acute change in status. - Upon discharge please give outpatient appointment in primary GI clinic in 2-3 weeks. - Perform an upper endoscopic ultrasound (UEUS) as previously scheduled. - Repeat upper endoscopy in 2 months for retreatment. - Return to primary care physician. Procedure Code(s): --- Professional --- 46469, Esophagogastroduodenoscopy, flexible, transoral; diagnostic, including collection of specimen(s) by brushing or washing, when performed (separate procedure) Diagnosis Code(s): --- Professional --- I85.01, Esophageal varices with bleeding K31.819, Angiodysplasia of stomach and duodenum without bleeding K76.6, Portal hypertension K31.89, Other diseases of stomach and duodenum D62, Acute posthemorrhagic anemia CPT copyright 2019 [employer]. All rights reserved. The codes documented in this report are preliminary and upon composition floor layer review may be revised to meet current compliance requirements. Eric Prince MD Eric Prince MD 05/09/2020 2:45:48 PM Electronically signed by Eric Prince MD Number of Addenda: 0 Note Initiated On: 05/09/2020 2:02 PM Estimated Blood Loss: Estimated blood loss was minimal.
[2020-05-09] MEDS: cefTRIAXone SOD 1 GM in D5W MINI-BAG PLUS 50 ML IV SCH (15:41)
[2020-05-09] MEDS ORDERED: LIDOCAINE 1% MDV 20ML VIAL As Ordered ONE (16:31)
--- NOTE | 2020-05-09 17:08 | IPNPDOC ---
Subjective Date Seen The patient was seen on 05/09/20. Subjective Chief Complaint/HPI Mr. Bassett is a 74-year-old male with atrial fibrillation on Eliquis, nonalcoholic cirrhosis, esophageal varices status post banding in [place], and chronic kidney disease stage III who presents with ascites and found to have symptomatic anemia. This morning, he was feeling well. Denies chest pain or dyspnea. He went down to EGD today. Found three large esophageal varices that were non-bleeding, but had signs of recent bleeding. Three bands were placed. Patient was returned. He felt well afterwards. Objective Physical Examination General Exam: Positive: Alert, Cooperative Eye Exam: Positive: EOMI, Other Eye Symptoms (eyes slightly barrett) ENT Exam: Positive: Other ENT (underneath tongue is yellow) Neck Exam: Positive: Supple Chest Exam: Positive: Diminished Heart Exam: Positive: Rate Normal, Regular Rhythm Abdomen Exam: Positive: Normal bowel sounds, Soft, Other (distended); Negative: Tenderness Extremity Exam: Positive: Edema (and lateral pitting edema) Neuro Exam: Positive: Normal Speech, Cranial Nerves 3-12 NL Psych Exam: Positive: Mental status NL, Mood NL Assessment /Plan Assessment Mr. Bassett is a 74-year-old male with atrial fibrillation on Eliquis, nonalcoholic cirrhosis, esophageal varices status post banding in [place], and chronic kidney disease stage III who presents with ascites and found to have severe anemia. He is on Eliquis, which is most likely promoted his bleeding. It seems to be a chronic bleed. His MCV has been gradually declining and he has iron deficiency anemia. We will hold his Eliquis and transfuse blood. He has received 4 units of pRBC during his hospitalization. Otherwise, continue with diuresis. Spoke with GI who recommended cardiology consultation for anticoagulation need and cardiac clearance for endoscopy. Consulted cardiology and cleared patient for EGD. EGD performed on 05/09/2020. GI found 3 esophageal varices that are not actively bleeding, but had stigmata of recent bleed. He place 3 bands. Made several recommendations. IV octreotide for 3 days. Antibiotics for 7 days (IV ceftriaxone inpatient and PO ciprofloxacin outpatient). Follow up with GI in 2 to 3 weeks. Plan/VTE VTE Prophylaxis Ordered?: Yes Plan 1. Acute on chronic GI bleed -EGD on 05/09/2020 demonstrates 3 large esophageal varices with stigmata of bleeding. GI placed 3 bands. -Continue IV octreotide for 3 days -Continue IV PPI for 24 hours, then switch to PO PPI for 6 weeks. Has received a total of 4u pRBC -Monitor H&H daily 2. Atrial fibrillation Currently not on rate control or rhythm control medication Cautious due to his low blood pressure Holding Eliquis Monitor on telemetry 3. Nonalcoholic Cirrhosis Child-Duenas Score of 8, class B 4. Ascites Drained 3.5 L SA-AG is 2.5, most likely portal hypertension Antibiotics for 7 days after EGD. IV ceftriaxone while inpatient and ciprofloxacin outpatient -Difficult to diurese due to low blood pressure. Will start albumin and lasix drip to diurese 5. Diabetes mellitus Sliding scale insulin 6. DVT prophylaxis SCD and TEDs Disposition: Continue checking H&H. Working on diuresing patient, difficult due to low blood pressure. Will start albumin and lasix drip. VS, I&O, 24H, Fishbone Vital Signs/I&O Vital Signs Date Time Temp Pulse Resp B/P (MAP) Pulse Ox O2 Delivery O2 Flow Rate FiO2 05/09/20 16:00 96.7 75 18 98/54 (69) 93 Room Air I&O- Last 24 Hours up to 6 AM 05/09/20 05:59 Intake Total 1200 ml Output Total 1450 ml Balance -250 ml Laboratory Data 24H LABS Laboratory Tests 2 05/08/20 20:11: Bedside Glucose (Misc Panel) 170H 05/09/20 05:35: Nucleated Red Blood Cells % (auto) 0.0, Anion Gap 6L, Glomerular Filtration Rate 35.6L, Calcium Level 8.6L 05/09/20 11:29: Bedside Glucose (Misc Panel) 159H CBC/BMP Laboratory Tests 05/09/20 05:35 Microbiology Microbiology 05/06/20 Stool Occult Blood (AL[facility]) - Final, Complete 05/05/20 Blood Culture - Preliminary, Resulted No Growth after 72 hours. All specime... 05/05/20 Blood Culture - Preliminary, Resulted No Growth after 72 hours. All specime... 05/05/20 Acid Fast Stain, Received Pending 05/05/20 Mycobacterial Culture, Received Pending 05/05/20 Fungal Smear, Received Pending 05/05/20 Fungal Culture, Received Pending VIVIAN HWANG 15, 2021 17:08
[2020-05-09] MEDS: OCTREOTIDE ACETATE 1,200 MCG in NS 238.8 ML IV SCH (17:47)
[2020-05-09] MEDS: FUROSEMIDE injection 250 MG in D5W 225 ML IV SCH (17:48)
[2020-05-09] MEDS: SODIUM CHLORIDE 0.9% INJ 10 ML SYR IV SCH (18:00)
[2020-05-10] VITALS (20 sets, daily range): BP systolic 94–124; BP diastolic 44–63
[2020-05-10] MEDS: PANTOPRAZOLE 40MG VIAL (C9113 PER 1) IV SCH ×2 (05:04→15:51)
[2020-05-10] MEDS: SLF 3 ML SYR IV SCH ×3 (05:05→21:00)
[2020-05-10] MEDS: SODIUM CHLORIDE 0.9% INJ 10 ML SYR IV SCH ×2 (05:05→17:11)
[2020-05-10] MEDS: LEVOTHYROXINE 100MCG TABLET (0.1MG) PO SCH (05:05)
[2020-05-10] MEDS: LEVOTHYROXINE 75MCG TABLET (0.075MG) PO SCH (05:05)
[2020-05-10 05:43] LABS: HEMATOCRIT 30.1 % (42.0-52.0); HEMOGLOBIN 7.6 g/dl (13.5-17.5); MEAN CORPUSCULAR HEMOGLOBIN 18.8 pg (27.0-33.0); MEAN CORPUSCULAR HGB CONC 25.2 g/dl (32.0-36.5); MEAN CORPUSCULAR VOLUME 74.5 fl (80.0-96.0); PLATELET COUNT, AUTOMATED 140 10^3/uL (150-450); RED BLOOD COUNT 4.04 10^6/uL (4.30-6.10); WHITE BLOOD COUNT 8.7 10^3/uL (4.0-10.0)
[2020-05-10 06:07] LABS: CALCIUM LEVEL 7.9 MG/DL (8.8-10.2); CREATININE FOR GFR 2.28 MG/DL (0.70-1.30); MAGNESIUM LEVEL 2.3 MG/DL (1.8-2.4); POTASSIUM SERUM 4.6 MEQ/L (3.5-5.1)
--- NOTE | 2020-05-10 07:58 | IPNPDOC ---
Date Seen The patient was seen on 05/10/20. Progress Note HOSPITALIST PROGRESS NOTE DICTATED If note is needed urgently, pls have distance learning unit leader call hypertype to stat transcribe Dr. Silver's progress note job #[id number] VS, I&O, 24H, Fishbone Vital Signs/I&O Vital Signs Date Time Temp Pulse Resp B/P (MAP) Pulse Ox O2 Delivery O2 Flow Rate FiO2 05/10/20 07:07 97.3 86 18 113/62 (79) 95 Room Air I&O- Last 24 Hours up to 6 AM 05/10/20 05:59 Intake Total 670.0 ml Output Total 1700 ml Balance -1030.0 ml Laboratory Data 24H LABS Laboratory Tests 2 05/09/20 11:29: Bedside Glucose (Misc Panel) 159H 05/09/20 18:04: Bedside Glucose (Misc Panel) 162H 05/09/20 20:07: Bedside Glucose (Misc Panel) 147H 05/10/20 05:30: Nucleated Red Blood Cells % (auto) 0.0, Anion Gap 9, Glomerular Filtration Rate 30.0L, Calcium Level 7.9L, Magnesium Level 2.3 CBC/BMP Laboratory Tests 05/10/20 05:30 Microbiology Microbiology 05/06/20 Stool Occult Blood (ALEM) - Final, Complete 05/05/20 Blood Culture - Preliminary, Resulted No Growth after 72 hours. All specime... 05/05/20 Blood Culture - Preliminary, Resulted No Growth after 72 hours. All specime... 05/05/20 Acid Fast Stain, Received Pending 05/05/20 Mycobacterial Culture, Received Pending 05/05/20 Fungal Smear, Received Pending 05/05/20 Fungal Culture, Received Pending VITOR SILVER MD May 10, 2020 07:58
--- NOTE | 2020-05-10 09:23 | IPN ---
PROGRESS NOTE DATE: 05/10/2020 SUBJECTIVE: The patient is seen and examined, the chart has been reviewed. Patient says he is color-blind and unable to distinguish bright-red blood when he has bowel movements. At home, he usually uses a dark-brown towel and a light-brown towel. With bright-red blood the patient sees a darker shade on the darker towel. He denies any chest pain, pressure or tightness, lightheadedness or near syncope. He denies any palpitations, chest pain and dizziness. Telemetry remains unremarkable. Rate controlled atrial fibrillation, still off anticoagulation due to recent esophageal variceal bleeding. Despite blood transfusion, the patient has a hemoglobin of 7.6, hematocrit of 30 from previous 8.4 and 32.3. Blood pressure is maintained at 113 systolic. No other acute issues. OBJECTIVE: VITAL SIGNS: Temperature is 97.3, pulse is 86, respiratory rate 18, blood pressure 113/62, 95% on room air. GENERAL: Awake, alert and oriented x3 answering questions appropriately. No use of respiratory accessory muscles. No conversational dyspnea. Able to speak in full sentences. Patient has pallor. No icterus or jaundice. HEAD AND NECK: No JVD or thyromegaly. Moist mucous membranes. Poor dentition. LUNGS: Diminished with bibasilar crackles. HEART: S1 and S2, irregularly irregular. ABDOMEN: Distended, slight positive fluid wave, nontender. No rebound or guarding. Unable to assess for abdominal bruit. EXTREMITIES: Positive pitting edema bilateral lower extremities. LABORATORY DATA: White count 8.7, hemoglobin 7.6 from previous 8.4, hematocrit of 30 from previous 32.3 and platelet count of 140,000 from previous platelet count of 144,000. Sodium 142, potassium 4.6, chloride 108, bicarbonate 25, BUN 58, creatinine 2.28. Glucose of 196. ASSESSMENT AND PLAN: This is a 74-year-old male admitted on 05/05/2020 with a past medical history significant for chronic atrial fibrillation on Eliquis, nonalcoholic fatty liver induced cirrhosis, esophageal varices status post esophageal banding in [place], chronic kidney disease Stage III, does not follow with a clinical informatics educator, presented to the Emergency Room with complaints of weight gain, worsening shortness of breath, admitted for symptomatic anemia and was found to have decompensated liver disease with ascites. Patient is status post paracentesis 3.5 liters with no signs of peritonitis. Current issues are: 1. Symptomatic anemia status post esophageal bleeding, previously banded in [place], status post EGD by Dr. Prince, water carter with persistent anemia with 7.6 hemoglobin today. Patient has been transfused a total of 4 units of leukocyte-reduced RBCs and 2 units of albumin 25%. He remains fluid-overloaded and is currently on Lasix IV drip. To keep the hemoglobin above 8, patient will be given 1 more unit of RBC transfusion. He is currently on IV Octreotide to be continued for a total of three days until 05/12/2020, seven days of IV antibiotics, currently on IV Ceftriaxone and transitioned to p.o. Cipro as an outpatient and PPI, currently on IV Protonix b.i.d. but to continue this oral Protonix daily as an outpatient for a total of six weeks with outpatient follow-up with Dr. Prince in 2-3 weeks. 2. Decompensated liver cirrhosis with ascites. Patient is currently on a Lasix drip, still with chronic kidney disease Stage III. Input had been 820, output was 1.5 liters yesterday, currently weight is 118.6 kilos with an admission weight of 120.91 kg. Patient does not seen a clinical informatics educator as an outpatient. Will need to monitor strict I and O's and daily weights. He is currently negative balance and losing weight which is at goal. 3. Chronic thrombocytopenia secondary to decompensated liver cirrhosis. Patient will need outpatient referral to [facility] for surveillance. He will follow-up with Dr. Prince, water carter as an outpatient in 2-3 weeks. 4. Chronic kidney disease Stage III, currently on Lasix IV drip due to severe liver cirrhosis and chronic kidney disease Stage III. Avoid further nephrotoxins, renally dose all medications. Patient is non-oliguric with no electrolyte abnormalities such as hyperkalemia or metabolic acidosis. If patient worsens to Stage IV renal failure will need to have Nephrology to manage patient's IV drip. 5. Chronic atrial fibrillation, off anticoagulation. His Eliquis has been withheld due to severe symptomatic anemia requiring 4 units of RBC transfusion. Patient follows with Dr. Durán as an outpatient, was previously seen by Dr. Zendejas and medically optimized for EGD. Patient will need to be off Eliquis for at least 5 to 7 days while his esophageal variceal bleeding resolves. He will follow with Dr. Durán next week who will then decide when to resume his Eliquis. 6. Type 2 diabetes, currently controlled on consistent carbohydrate diet and sliding scale with coverage. 7. Disposition. At this time, the patient remains fluid overloaded. Will need to have Lasix continue. He will receive 1 unit of RBC if stable overnight with no drop in hemoglobin may go home on 05/11/2020.
[2020-05-10] MEDS: SPIRONOLACTONE 25 MG TAB PO SCH ×2 (09:45→21:00)
[2020-05-10] MEDS: HumaLOG INSULIN (NovoLOG) PER UNIT SC SCH ×4 (09:45→21:00)
[2020-05-10] MEDS: allopurinoL 100 MG TAB PO SCH (09:45)
[2020-05-10] MEDS: cefTRIAXone SOD 1 GM in D5W MINI-BAG PLUS 50 ML IV SCH (15:51)
[2020-05-10] MEDS: OCTREOTIDE ACETATE 1,200 MCG in NS 238.8 ML IV SCH (17:09)
[2020-05-10] MEDS: FUROSEMIDE injection 250 MG in D5W 225 ML IV SCH (17:10)
--- NOTE | 2020-05-10 19:17 | REP ---
INDICATION: Poor venous access. COMPARISON: None. TECHNIQUE: The procedure was performed under the direct supervision of Dr. Marrero. The risks and benefits of the procedure were explained to the patient and informed consent was obtained. The right basilic vein was localized using ultrasound guidance. The skin was prepped and draped in a sterile fashion. 2% lidocaine was used as a local anesthetic. Using ultrasound guidance the basilic vein was cannulated and a 0.018 guidewire was inserted and advanced to the SVC using fluoroscopic guidance. The needle was removed and a 5.5 Malian dilator and peel-away sheath was inserted over the guide wire. A 5.5 Malian dual lumen catheter was cut to length of 45 cm. The dilator was removed and the catheter was inserted over the guide wire with the tip ending in the SVC. The peel-away sheath was removed and the catheter was flushed with heparinized saline as per Hospital protocol. The catheter was affixed to the skin and a sterile dressing was applied. The patient tolerated the procedure well and there were no immediate complications. 0.3 minutes of fluoro time was utilized for this procedure. FINDINGS: None IMPRESSION: PICC line insertion with the tip of the catheter in the SVC. <Electronically signed by Jaden Piedra > 05/10/20 [id number] <Electronically signed by Chucho Marrero > 05/10/20 [id number]
[2020-05-11] VITALS (11 sets, daily range): BP systolic 91–128; BP diastolic 44–93
[2020-05-11 06:02] LABS: HEMATOCRIT 30.2 % (42.0-52.0); HEMOGLOBIN 8.1 g/dl (13.5-17.5); MEAN CORPUSCULAR HEMOGLOBIN 20.2 pg (27.0-33.0); MEAN CORPUSCULAR HGB CONC 26.8 g/dl (32.0-36.5); MEAN CORPUSCULAR VOLUME 75.3 fl (80.0-96.0); PLATELET COUNT, AUTOMATED 125 10^3/uL (150-450); RED BLOOD COUNT 4.01 10^6/uL (4.30-6.10); WHITE BLOOD COUNT 7.6 10^3/uL (4.0-10.0)
[2020-05-11 06:16] LABS: CALCIUM LEVEL 7.8 MG/DL (8.8-10.2); CREATININE FOR GFR 2.36 MG/DL (0.70-1.30); GLOMERULAR FILTRATION RATE 28.9 (>42); POTASSIUM SERUM 4.5 MEQ/L (3.5-5.1)
[2020-05-11] MEDS: LEVOTHYROXINE 75MCG TABLET (0.075MG) PO SCH (06:24)
[2020-05-11] MEDS: LEVOTHYROXINE 100MCG TABLET (0.1MG) PO SCH (06:24)
[2020-05-11] MEDS: PANTOPRAZOLE 40MG VIAL (C9113 PER 1) IV SCH ×2 (06:25→15:42)
[2020-05-11] MEDS: SLF 3 ML SYR IV SCH ×3 (06:25→20:34)
[2020-05-11] MEDS: SODIUM CHLORIDE 0.9% INJ 10 ML SYR IV SCH ×2 (06:25→17:09)
[2020-05-11] MEDS ORDERED: oxyCODONE 5MG TAB PO ONE (08:00)
[2020-05-11] MEDS: HumaLOG INSULIN (NovoLOG) PER UNIT SC SCH ×4 (08:15→21:00)
[2020-05-11] MEDS: SODIUM CHLORIDE 0.9% INJ 10 ML SYR IV PRN ×2 (08:16→12:42)
[2020-05-11] MEDS: SPIRONOLACTONE 25 MG TAB PO SCH ×2 (09:28→20:33)
[2020-05-11] MEDS: allopurinoL 100 MG TAB PO SCH (09:28)
--- NOTE | 2020-05-11 09:32 | IPNPDOC ---
Date Seen The patient was seen on 05/11/20. Progress Note Hospitalist progress note dictated. If urgently needed, pls call hypertype to stat transcribe progress note dictated by Dr. Silver VS, I&O, 24H, Fishbone Vital Signs/I&O Vital Signs Date Time Temp Pulse Resp B/P (MAP) Pulse Ox O2 Delivery O2 Flow Rate FiO2 05/11/20 08:15 18 05/11/20 05:38 98.2 76 98/46 96 Room Air 05/10/20 16:00 3.0 I&O- Last 24 Hours up to 6 AM 05/11/20 06:00 Intake Total 2610.0 ml Output Total 950 ml Balance 1660.0 ml Laboratory Data 24H LABS Laboratory Tests 2 05/10/20 11:48: Bedside Glucose (Misc Panel) 217H 05/10/20 16:41: Bedside Glucose (Misc Panel) 179H 05/10/20 19:57: Bedside Glucose (Misc Panel) 221H 05/11/20 05:32: Nucleated Red Blood Cells % (auto) 0.0, Anion Gap 6L, Glomerular Filtration Rate 28.9L, Calcium Level 7.8L CBC/BMP Laboratory Tests 05/11/20 05:32 Microbiology Microbiology 05/06/20 Stool Occult Blood (AL[facility]) - Final, Complete 05/05/20 Blood Culture - Final, Complete NO GROWTH AFTER 5 DAYS 05/05/20 Blood Culture - Final, Complete NO GROWTH AFTER 5 DAYS 05/05/20 Acid Fast Stain, Received Pending 05/05/20 Mycobacterial Culture, Received Pending 05/05/20 Fungal Smear, Received Pending 05/05/20 Fungal Culture, Received Pending VITOR SILVER MD May 11, 2020 09:32
[2020-05-11] MEDS ORDERED: oxyCODONE 5MG TAB PO PRN (12:00)
[2020-05-11] MEDS: MIDODRINE 5 MG TAB PO SCH ×2 (12:41→15:42)
--- NOTE | 2020-05-11 13:45 | IPN ---
PROGRESS NOTE DATE: 05/11/2020 SUBJECTIVE: Despite blood pressure of 98/46 and Lasix drip patient denies dizziness, lightheadedness, near syncope, ambulated well to and from the bathroom back to his bed. When he was leaning over the sink he complained of back spasms which he says is nonoperable according to his orthopedic surgeon. Patient denies any radicular pain, rates the pain as achy, 8/10, lasting for a few minutes, abated when he sat down and stopped moving. Patient otherwise denies chest pain, pressure or tightness, shortness of breath. Denies any worsening lower extremity edema, but still with 2+ edema in the lower extremities. 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 No dizziness, lightheadedness. OBJECTIVE: Vital signs: Temperature 98.2, pulse 76 sinus, respiratory rate 19, blood pressure 98/46, 96% on room air. Input 2310, output 600, positive 1710 overnight; input is 900, output 950 from midnight, balance of negative 50. Current weight is 120 kg from 120.9 kg on admission. General: Awake, alert, oriented times 3, answering questions appropriately HEENT: Moist mucous membranes. Neck: No JVD, no thyromegaly. Lungs: Diminished, but clear to auscultation, no wheezes or rales. Heart: S1 and S2 sinus rhythm. Abdomen: Obese, soft, nontender, nondistended, positive bowel sounds. Extremities: 3+ pitting edema bilateral extremities to the sacrum. LABORATORY DATA: White count 7.6, hemoglobin 8, hematocrit 30, platelet count 125. Sodium 141, potassium 4.5, chloride 109, bicarb 26, BUN 61, creatinine 2.36, glucose 222. ASSESSMENT AND PLAN: This 74-year-old male with history of ischemic cardiomyopathy, ejection fraction 20-25%, AICD, chronic kidney disease stage 3 at baseline, decompensated liver cirrhosis most likely related to non-alcoholic fatty liver, esophageal varices status post esophageal banding in [place] presented to the Emergency Room with complaints of symptomatic anemia as well as GI bleed. EGD showed esophageal varices. According to Dr. Prince patient is to continue on octreotide intravenous drip for 3 days which was started on the at 3:00 p.m. and to end on the at 3:00 p.m. He is currently on Protonix I.V. daily from previous Protonix drip. He should be transitioned to oral Protonix for the next 6 weeks. Patient has received a total of 5 units of RBCs transfusion due to symptomatic anemia with persistent hemoglobin of 8.1. He will require 1 more unit of RBCs. Current issues: 1. Symptomatic anemia status post GI bleed. EGD by Dr. Prince was done, currently at 5 units of RBC transfusion, 2 units of albumin infusion 25%. Outpatient follow up in 2-3 weeks. Protonix for a total of 6 weeks. 2. 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 Urine output has been minimal. He has not had any significant weight loss, admitted with 120.9 kg and currently at 120 kg. Patient has decrease in circulating blood volume therefore he will be given albumin 25%, 4 packs q6h if blood pressure permits. If patient's mean arterial pressure remains at less than 75% he will need to have albumin infusions for better diuresis. Due to persistent positive fluid balance agency cashier has been consulted. He has not responded well to Lasix intravenous drip, but bolus Lasix may cause severe hypotension which could further worsen his azotemia. 3. Chronic thrombocytopenia secondary to decompensated liver cirrhosis: No active signs of bleeding at this time. Patient does not need any platelet transfusions. 4. Chronic atrial fibrillation: Currently off Eliquis due to recent GI bleed and severe symptomatic anemia requiring RBC transfusion. Patient will need to be off anticoagulation for about a week until things have subsided. 5. CHF: Previous echo shows EF of 65%. Currently compensated. MTDD
[2020-05-11] MEDS: OCTREOTIDE ACETATE 1,200 MCG in NS 238.8 ML IV SCH (15:42)
[2020-05-11] MEDS: cefTRIAXone SOD 1 GM in D5W MINI-BAG PLUS 50 ML IV SCH (15:43)
--- NOTE | 2020-05-11 22:57 | CR ---
NEPHROLOGY CONSULTATION DATE: 05/11/2020 REQUESTING PHYSICIAN: Dr. Patricia Silver CONSULTING PHYSICIAN: Dr. Balaji Rodriguez REASON FOR CONSULTATION: Management of diuresis and volume overload in this patient chronic kidney disease stage 4 and liver cirrhosis. CHIEF COMPLAINT: The patient was sent to the Emergency Department on May 05, 2020 with symptomatic anemia and anasarca. HISTORY OF PRESENT ILLNESS: Leland Bassett is a 74-year-old male with a past medical history of non alcoholic liver cirrhosis, chronic kidney disease stage 3 to early stage 4. Baseline creatinine fluctuates between 1.8 to 2. Atrial fibrillation on anticoagulation. Multiple other comorbidities as mentioned below. He came for outpatient paracentesis and 3.5 liters of fluid was removed. Outpatient labs were done and he was found to have a hemoglobin of 5.6. He was sent to the Emergency Room for further evaluation. Later on he was admitted to the Hospitalist Service because of severe symptomatic anemia. EGD done by GI showed that he had stigmata of recent bleeding from the esophageal varices. The patient is getting a blood transfusion. He is on Octreotide infusion, Protonix and also IV albumin infusions. The patient is currently on Spironolactone only. Nephrology Service was called for further help in the management of this patient because his blood pressures are soft. His creatinine is high at 2.3. The patient needed my immediate attention. He was seen at the bedside today morning by myself. He was able to provide me with his history. He was awake and alert and getting ready to get a blood transfusion when I saw him. PAST MEDICAL HISTORY: The patient's past medical history is significant for: 1. Chronic kidney disease stage 3 baseline creatinine of around 1.8. 2. Non alcoholic liver cirrhosis. 3. Esophageal varices. 4. Recent GI bleed. 5. Gout. 6. Gastroesophageal reflux disease. 7. Abdominal aortic aneurysm. 8. History of testicular cancer. 9. Obstructive sleep apnea. 10. Atrial fibrillation anticoagulated with Eliquis. 11. Diabetes mellitus type 2. 12. Chronic diastolic congestive heart failure. 13. Coronary artery disease. PAST SURGICAL HISTORY: The patient's past surgical history is significant for: 1. Status post gallbladder surgery. 2. Right testicular surgery. 3. Right knee arthroscopy. 4. Left knee surgery in 2007. 5. Venous ablation of the right leg. 6. Cataract removal. 7. Recent EGD which showed stigmata of bleeding from the varices. ALLERGIES: 1. Quinolones. 2. Atorvastatin. 3. Valsartan. FAMILY HISTORY: No significant family history of end-stage renal disease requiring hemodialysis. SOCIAL HISTORY: He is a former smoker. He denies any alcohol abuse or drug abuse. REVIEW OF SYSTEMS: Constitutional: He denies any fevers or chills. Eyes: He denies any blurry vision, double vision. ENT: He denies any dysphagia or odynophagia. Cardiovascular: He denies any chest pain, shortness of breath. Respiratory: He denies any cough or shortness of breath. GI: He reports recent GI bleed and cirrhosis with ascites. Genitourinary: He denies any dysuria, hematuria. Musculoskeletal: He denies any muscle aches and pains. Skin: He denies any rashes or ulcers. Hematological/Oncological: He reports a recent upper GI bleed. 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 All other review of systems is negative. PHYSICAL EXAMINATION: GENERAL APPEARANCE: The patient is awake, alert, oriented x3, laying in bed. VITAL SIGNS: Temperature is 98 degrees Fahrenheit, blood pressure 112/83, pulse is 71, respiratory rate of 17, saturating 93% on nasal cannula at 3 liters. HEAD AND NECK: Extraocular muscles intact. Pupils are equally round and reactive to light. Mucous membranes are moist. Neck is supple. There is no jugular venous distention. CARDIOVASCULAR: S1, S2, regular rate. EXTREMITIES: 1+ edema of the bilateral lower extremities. RESPIRATORY: Mildly decreased breath sounds at the bases. No active rales or rhonchi. ABDOMEN: Soft, distended. Abdominal wall edema is noted. GENITOURINARY: Bladder is not palpable. MUSCULOSKELETAL: No clubbing, no cyanosis. Pulses are 2+. LINK TRAINER OPERATOR: No focal deficits. No asterixis was noted. LAB REVIEW: CBC showed a white blood cell count 7.6, hemoglobin is 8.1, platelet count 125. BMP showed sodium 141, potassium 4.5, chloride 109, bicarbonate 26, BUN 61, creatinine is 2.3. Calcium is 7.8. Microbiology blood cultures are negative. IMAGING DATA: Renal imaging is not available. Doppler of the lower extremities is negative for DVT. CURRENT INPATIENT MEDICATIONS: The patient's medications were all reviewed by myself. The patient was on a Lasix drip which has been stopped today. He is on Ceftriaxone one gram IV q. 24 hourly, Sandostatin drip at 10 mL an hour, Allopurinol 100 mg p.o. daily, Insulin Lispro sliding scale, Levothyroxine 175 mcg daily. The patient was started on Midodrine 5 mg p.o. q. 8 hourly by myself. He is on Oxycodone p.r.n., Protonix 40 mg IV q. 12 hourly, Spironolactone 25 mg p.o. twice daily. ASSESSMENT AND PLAN: 1. Acute renal failure superimposed on chronic kidney disease stage 3 - The patient is having a GI bleed. He is getting blood products and albumin and along with that he was on a Lasix drip and Spironolactone. Lasix drip was just stopped today morning. I will continue to hold it for now until his renal function improves back to his baseline. Because of hypotension, I am adding Midodrine as well. Since blood products are being given, there is no need to add albumin to that. Continue the Octreotide infusion at this time which will help with renal function in the setting of GI bleed as well. 2. Decompensated liver cirrhosis with ascites - The patient got the ascitic tap done. He has portal hypertension. Avoid aggressive blood product administration and IV fluid hydration. Continue the Protonix. Transfuse p.r.n. for hemoglobin less than 8. 3. Hypotension - The patient was on a Lasix drip. He looks slightly intravascularly depleted. The patient was started on Midodrine 5 mg p.o. three times daily. 4. Atrial fibrillation - heart rate is controlled at this time. Eliquis has been stopped because of recent GI bleed. 5. Chronic diastolic congestive heart failure - The patient was on a Lasix drip for 2 days. At this time I am holding the IV diuretic because of a bump in the creatinine. 6. Anemia secondary to GI bleed - The patient is being given a blood transfusion. Continue Sandostatin. Continue Ceftriaxone and IV Protonix. Thank you for involving me in the care of this patient. I should be happy to follow the patient along with you tomorrow morning. [facility]
[2020-05-12] MEDS: PANTOPRAZOLE 40MG VIAL (C9113 PER 1) IV SCH ×2 (04:05→17:13)
[2020-05-12] MEDS: LEVOTHYROXINE 100MCG TABLET (0.1MG) PO SCH (05:50)
[2020-05-12] MEDS: SLF 3 ML SYR IV SCH ×3 (05:50→11:59)
[2020-05-12] MEDS: LEVOTHYROXINE 75MCG TABLET (0.075MG) PO SCH (05:50)
[2020-05-12] MEDS: SODIUM CHLORIDE 0.9% INJ 10 ML SYR IV SCH ×2 (05:51→17:13)
[2020-05-12 06:00] VITALS: BP 100/60
[2020-05-12 06:22] LABS: BASO % 0.5 % (0.0-1.0); EOS # 0.3 10^3/uL (0.0-0.5); EOS % 3.3 % (0.0-3.0); HEMATOCRIT 33.2 % (42.0-52.0); HEMOGLOBIN 8.8 g/dl (13.5-17.5); LYMPH # 0.8 10^3/uL (1.5-5.0); LYMPH % 9.9 % (24.0-44.0); MEAN CORPUSCULAR HEMOGLOBIN 20.5 pg (27.0-33.0); MEAN CORPUSCULAR HGB CONC 26.5 g/dl (32.0-36.5); MEAN CORPUSCULAR VOLUME 77.2 fl (80.0-96.0); MONO # 0.7 10^3/uL (0.0-0.8); MONO % 8.4 % (2.0-8.0); NEUTROPHILS # 6.2 10^3/uL (1.5-8.5); NEUTROPHILS % 77.6 % (36.0-66.0); PLATELET COUNT, AUTOMATED 108 10^3/uL (150-450)
[2020-05-12 06:49] LABS: ALBUMIN 2.8 GM/DL (3.2-5.2); BILIRUBIN,TOTAL 1.5 MG/DL (0.2-1.0); CALCIUM LEVEL 8.1 MG/DL (8.8-10.2); CREATININE FOR GFR 2.05 MG/DL (0.70-1.30); MAGNESIUM LEVEL 2.5 MG/DL (1.8-2.4); POTASSIUM SERUM 4.5 MEQ/L (3.5-5.1); TOTAL PROTEIN 4.5 GM/DL (6.4-8.2)
[2020-05-12 08:29] VITALS: BP 100/58
[2020-05-12] MEDS: allopurinoL 100 MG TAB PO SCH (08:29)
[2020-05-12] MEDS: HumaLOG INSULIN (NovoLOG) PER UNIT SC SCH ×4 (08:29→21:00)
[2020-05-12] MEDS: SPIRONOLACTONE 25 MG TAB PO SCH ×2 (08:29→22:05)
[2020-05-12] MEDS: MIDODRINE 5 MG TAB PO SCH ×3 (08:29→17:12)
--- NOTE | 2020-05-12 10:37 | IPNPDOC ---
Date Seen The patient was seen on 05/12/20. Progress Note Hospitalist progress note Dictated. If note is needed urgently, pls call hypertype at [phone] Silver's progress note . VS, I&O, 24H, Fishbone Vital Signs/I&O Vital Signs Date Time Temp Pulse Resp B/P (MAP) Pulse Ox O2 Delivery O2 Flow Rate FiO2 05/12/20 08:29 82 100/58 (72) 05/12/20 06:00 98.5 18 92 Room Air 05/11/20 21:00 3.0 I&O- Last 24 Hours up to 6 AM 05/12/20 05:59 Intake Total 2550.0 ml Output Total 750 ml Balance 1800.0 ml Laboratory Data 24H LABS Laboratory Tests 2 05/11/20 11:26: Bedside Glucose (Misc Panel) 222H 05/11/20 16:20: Bedside Glucose (Misc Panel) 176H 05/11/20 20:00: Bedside Glucose (Misc Panel) 205H 05/12/20 05:58: Immature Granulocyte % (Auto) 0.3, Neutrophils (%) (Auto) 77.6H, Lymphocytes (%) (Auto) 9.9L, Monocytes (%) (Auto) 8.4H, Eosinophils (%) (Auto) 3.3H, Basophils (%) (Auto) 0.5, Neutrophils # (Auto) 6.2, Lymphocytes # (Auto) 0.8L, Monocytes # (Auto) 0.7, Eosinophils # (Auto) 0.3, Basophils # (Auto) 0.0, Nucleated Red Blood Cells % (auto) 0.0, Anion Gap 7L, Glomerular Filtration Rate 34.0L, Calcium Level 8.1L, Magnesium Level 2.5H, Total Bilirubin 1.5H, Aspartate Amino Transf (AST/SGOT) 13, Alanine Aminotransferase (ALT/SGPT) 16, Alkaline Phosphatase 178H, Total Protein 4.5L, Albumin 2.8L, Albumin/Globulin Ratio 1.6 CBC/BMP Laboratory Tests 05/12/20 05:58 Microbiology Microbiology 05/06/20 Stool Occult Blood ([facility]) - Final, Complete 05/05/20 Blood Culture - Final, Complete NO GROWTH AFTER 5 DAYS 05/05/20 Blood Culture - Final, Complete NO GROWTH AFTER 5 DAYS 05/05/20 Acid Fast Stain, Received Pending 05/05/20 Mycobacterial Culture, Received Pending 05/05/20 Fungal Smear, Received Pending 05/05/20 Fungal Culture, Received Pending VITOR SILVER MD May 12, 2020 10:31
[2020-05-12 11:56] VITALS: BP 117/93
[2020-05-12 12:35] VITALS: BP 122/85
[2020-05-12] MEDS: TORSEMIDE 20 MG TAB PO SCH ×2 (12:36→17:12)
--- NOTE | 2020-05-12 13:13 | IPN ---
PROGRESS NOTE DATE: 05/12/2020 SUBJECTIVE: Patient is seen and examined at the bedside. Chart has been reviewed. He denies chest pain, pressure, tightness, shortness of breath, lightheadedness. His back pain has improved and does not want any pain medications. It usually worsens when he stays over the sink for long periods of time. Patient has no fever, no cough. Urinating well. No changes in appetite, nausea, vomiting, diaphoresis or chest tightness. OBJECTIVE/PHYSICAL EXAMINATION: VITAL SIGNS: Temperature 98.5, pulse 59, respiratory rate 18, blood pressure 100/60, 92% on room air. GENERAL: Patient is awake, alert, oriented x3, answering questions appropriately. HEENT: No JVD. No thyromegaly. No cervical lymphadenopathy. Poor dentition with missing teeth. Moist mucous membranes. No carotid bruit, stridor, thyromegaly. LUNGS: Diminished but clear to auscultation. No wheezing, rales or rhonchi. HEART: S1, S2, sinus rhythm. ABDOMEN: Obese, soft, nontender, non-distended. Positive bowel sounds x4 quadrants. EXTREMITIES: Bilateral pitting edema 1+. LABORATORY DATA: White count 8, hemoglobin 8.8, hematocrit 33, platelet count 108,000; admission platelet count was 190,000. Sodium 143, potassium 4.5, chloride 111, bicarb 25, BUN 66, creatinine 2.05. GFR 34. Glucose 168. Total bilirubin 1.5. ASSESSMENT AND PLAN: This is a 74-year-old male with history of nonalcoholic steatohepatitis liver cirrhosis, chronic kidney disease stage 3, chronic thrombocytopenia, chronic atrial fibrillation, CHF, EF of 65%, diastolic dysfunction with preserved systolic function, who presents to the Emergency Room with complaint of symptomatic anemia. He was found to have severe blood loss requiring a total of 6 units RBC transfusion and 7 albumin infusions; status post EGD by on 05/09/2020, showing three columns of non-bleeding grade 3 large varices found in the lower third of the esophagus with stigmata of recent bleeding evident , scarring from prior treatment was visible, evidence of partial eradication was visible, mild antral vascular ectasia without bleeding was also present in the gastric antrum. One submucosal papule with no bleeding, no stigmata of recent bleeding and mild portal hypertensive gastropathy in the gastric body and antrum. RECOMMENDATIONS: Continue with three days of I.V. Octreotide, seven days of antibiotics as well as Protonix for six weeks. Current issues are as follows: 1. Symptomatic anemia secondary to esophageal variceal bleeding, gastric antral vascular ectasia/GAVE, portal gastropathy with known history of decompensated liver cirrhosis with portal hypertension. Patient has been transfused a total of 6 units of RBC's and seven units of fresh frozen plasma, appears to be slightly fluid overloaded, but diuresis is being managed by nephrology. 2. Decompensated nonalcoholic steatohepatitis induced liver cirrhosis with portal hypertension, ascites, esophageal varices: Patient had been on Lasix drip, but had increase in creatinine and now it is stage 4 kidney disease. Nephrology has been consulted. With stopping the Lasix drip, patient went back to stage 3 renal failure, which is his baseline. He is currently on Spironolactone b.i.d., managed by nephrology. Defer to nephrology regarding dosage and resumption of patient's diuretics. He has been given albumin infusions and currently on Midodrine to keep the mean arterial pressure above 75 to 80. Patient did not do well with boluses of Lasix due to severe low blood pressure. 3. Chronic thrombocytopenia due to decompensated liver cirrhosis: No active signs of any further bleeding at this time, patient does not require platelet transfusions. 4. Chronic atrial fibrillation rate controlled currently: Off Eliquis due to recent GI bleed from the esophageal varices. 5. Congestive heart failure with preserved systolic function: EF of 65%. Defer to nephrology for diuresis. DISPOSITION: Defer to nephrology for clearance for discharge home once the patient is euvolemic. MTDD
[2020-05-12 14:00] VITALS: BP 102/75
[2020-05-12] MEDS: TRIAMCINOLONE ACET 0.1% OINTMENT 15 GM TOP SCH ×2 (14:35→22:08)
[2020-05-12] MEDS: SODIUM CHLORIDE 0.9% INJ 10 ML SYR IV PRN (15:56)
[2020-05-12] MEDS: cefTRIAXone SOD 1 GM in D5W MINI-BAG PLUS 50 ML IV SCH (17:12)
[2020-05-12 17:53] LABS: APPEARANCE, URINE CLEAR (CLEAR); BACTERIA, URINE AUTO NEGATIVE (NEGATIVE); BILIRUBIN, URINE AUTO NEGATIVE (NEGATIVE); BLOOD, URINE BLOOD 2+ (NEGATIVE); COLOR, URINE YELLOW (YELLOW); GLUCOSE, URINE (UA) AUTO NEGATIVE (NEGATIVE); KETONE, URINE AUTO NEGATIVE (NEGATIVE); LEUKOCYTE ESTERASE, URINE AUTO TRACE (NEGATIVE); MUCUS, URINE SMALL (NEGATIVE); NITRITE, URINE AUTO NEGATIVE (NEGATIVE); PROTEIN, URINE AUTO NEGATIVE (NEGATIVE); RBC, URINE AUTO 12 /HPF (0-3); SPECIFIC GRAVITY URINE AUTO 1.009 (1.002-1.035); SQUAMOUS EPITHELIAL CELL UR AU 0 /HPF (0-6); UROBILINOGEN, URINE AUTO 0.2 mg/dL (0.0-2.0); WBC, URINE AUTO 8 /HPF (0-3)
[2020-05-12 18:27] LABS: CHLORIDE,RANDOM URINE 58 MEQ/L; CREATININE,RANDOM URINE 72.2 MG/DL; SODIUM,RANDOM URINE 56 MEQ/L
[2020-05-12 22:00] VITALS: BP 103/66
[2020-05-13] VITALS (10 sets, daily range): BP systolic 96–107; BP diastolic 51–64
--- NOTE | 2020-05-13 05:36 | IPN ---
PROGRESS NOTE DATE: 05/12/2020 SUBJECTIVE: The patient was seen and examined at the bedside today morning. He is afebrile, hemodynamically stable. His blood pressures are better and he is making more urine after induction of midodrine. He reports that his leg edema is also getting better. He denies any active complaint. His renal function is also improving. Creatinine has improved also today. OBJECTIVE: Vital signs: is 98.7 degrees Fahrenheit, blood pressure 102/75, pulse is 67, respiratory rate of 20, saturating 94% on nasal canula at 1 liter. Intake and output: Urine output recorded is 13 ml yesterday, 700 ml so far today since overnight. Weight in the bed scale is 121 kg. PHYSICAL EXAMINATION: General: The patient is awake, alert and oriented times 3, laying in bed, obese body habitus. Head and neck examination: Extraocular muscles are intact. Pupils equally round and reactive to light. Mucous membranes are moist. Neck is supple. There is no jugular venous distention (JVD). Cardiovascular: S1, S2 regular rate. 1+ edema of the bilateral lower extremities. Respiratory: Chest is clear to auscultation bilaterally. Bilateral equal air entry. No rales or rhonchi. Abdomen: Soft, obese, positive bowel sounds. Abdominal wall edema was noted. Musculoskeletal: 1+ edema of the bilateral lower extremities, otherwise no clubbing or cyanosis. BOARDER STEAM: No focal deficit. Power is 5/5 in all extremities. LABORATORY REVIEW: Complete blood count (CBC) showed a WBC of 8, hemoglobin is 8.8, platelets are 108. Urinalysis showed 2+ blood. Trace leukocyte esterase. Urine random creatinine is 72, random sodium is 56 and chloride is 58. Basic metabolic panel (BMP) today morning showed sodium 143, potassium 4.5, chloride 111, bicarbonate 25, BUN 66, creatinine is 2.05, it was 2.3 yesterday. Total bilirubin 1.5. AST 13, ALT is 16, alkaline phosphatase is 178, albumin 2.8. CURRENT INPATIENT MEDICATIONS: The patient's medications were all reviewed by myself. I have started the patient on torsemide 20 mg by mouth twice a day. He continues to be on spironolactone 25 mg by mouth twice a day. He is on midodrine 5 mg by mouth three times a day. Sandostatin drip has been stopped, ASSESSMENT AND PLAN: 1. Acute renal failure superimposed on chronic kidney disease. It was most likely multifactorial secondary to gastrointestinal (GI) bleed, use of diuretics, soft blood pressures. The patient was given blood yesterday. He was started on midodrine. He was already on octreotide. Renal function is improving back to baseline. Best baseline creatinine is 1.8. 2. Decompensated liver cirrhosis and ascites. The patient was tapped before the admission. He is on spironolactone; torsemide 20 mg by mouth twice a day has been started. 3. Hypertension. It is better controlled with midodrine 5 mg by mouth three times a day now. 4. Chronic diastolic congestive heart failure. Volume status is still slight decompensated. As mentioned above, the patient is torsemide and spironolactone. 5. Anemia secondary to gastrointestinal (GI) bleed. The patient's hemoglobin is stable. Sandostatin has been stopped. He continues to be in ceftriaxone and Protonix. Transfuse as needed for hemoglobin below 8.
[2020-05-13] MEDS: LEVOTHYROXINE 100MCG TABLET (0.1MG) PO SCH (05:38)
[2020-05-13] MEDS: LEVOTHYROXINE 75MCG TABLET (0.075MG) PO SCH (05:38)
[2020-05-13] MEDS: PANTOPRAZOLE 40MG VIAL (C9113 PER 1) IV SCH ×2 (05:38→18:02)
[2020-05-13] MEDS: SODIUM CHLORIDE 0.9% INJ 10 ML SYR IV SCH ×2 (05:39→18:05)
[2020-05-13] MEDS: SLF 3 ML SYR IV SCH ×3 (06:47→22:36)
[2020-05-13] MEDS: MIDODRINE 5 MG TAB PO SCH ×3 (08:12→18:03)
[2020-05-13] MEDS: HumaLOG INSULIN (NovoLOG) PER UNIT SC SCH ×4 (08:12→21:00)
[2020-05-13] MEDS: TRIAMCINOLONE ACET 0.1% OINTMENT 15 GM TOP SCH ×2 (08:13→21:11)
[2020-05-13] MEDS: allopurinoL 100 MG TAB PO SCH (08:13)
[2020-05-13] MEDS: TORSEMIDE 20 MG TAB PO SCH (08:15)
[2020-05-13] MEDS: SPIRONOLACTONE 25 MG TAB PO SCH ×2 (08:15→21:00)
[2020-05-13 08:36] LABS: HEMATOCRIT 34.7 % (42.0-52.0); HEMOGLOBIN 9.1 g/dl (13.5-17.5); MEAN CORPUSCULAR HEMOGLOBIN 20.2 pg (27.0-33.0); MEAN CORPUSCULAR HGB CONC 26.2 g/dl (32.0-36.5); MEAN CORPUSCULAR VOLUME 77.1 fl (80.0-96.0); PLATELET COUNT, AUTOMATED 109 10^3/uL (150-450); WHITE BLOOD COUNT 7.7 10^3/uL (4.0-10.0)
[2020-05-13 09:06] LABS: BILIRUBIN,TOTAL 1.9 MG/DL (0.2-1.0); CALCIUM LEVEL 8.3 MG/DL (8.8-10.2); GLOMERULAR FILTRATION RATE 34.9 (>42); POTASSIUM SERUM 4.7 MEQ/L (3.5-5.1); TOTAL PROTEIN 4.8 GM/DL (6.4-8.2)
--- NOTE | 2020-05-13 10:14 | IPNPDOC ---
Date Seen The patient was seen on 05/13/20. Progress Note Hospitalist progress note dictated job # [id number]. If note is needed urgently, pls call hypertype at [phone] for stat poising inspector. VS, I&O, 24H, Fishbone Vital Signs/I&O Vital Signs Date Time Temp Pulse Resp B/P (MAP) Pulse Ox O2 Delivery O2 Flow Rate FiO2 05/13/20 08:16 80 98/56 (70) 05/13/20 06:00 98.0 18 96 Nasal Cannula 1.0 I&O- Last 24 Hours up to 6 AM 05/13/20 06:00 Intake Total 1920 ml Output Total 1420 ml Balance 500 ml Laboratory Data 24H LABS Laboratory Tests 2 05/12/20 11:27: Bedside Glucose (Misc Panel) 269H 05/12/20 16:35: Bedside Glucose (Misc Panel) 245H 05/12/20 17:23: Urine Color YELLOW, Urine Appearance CLEAR, Urine pH 5.0, Urine Specific [place] 1.009, Urine Protein NEGATIVE, Urine Glucose (Auto)(UA) NEGATIVE, Urine Ketones (Auto) NEGATIVE, Urine Blood 2+H, Urine Nitrite NEGATIVE, Urine Bilirubin NEGATIVE, Urine Urobilinogen 0.2, Urine Leukocyte Esterase (Auto) TRACEH, Urine WBC (Auto) 8H, Urine RBC (Auto) 12H, Urine Hyaline Casts (Auto) 12, Urine Ba cteria (Auto) NEGATIVE, Urine Squamous Epithelial Cells 0, Urine Mucus (Auto) SMALL, Urine Sperm (Auto) , Urine Random Creatinine 72.2, Urine Random Sodium 56, Urine Random Chloride 58 05/12/20 21:25: Bedside Glucose (Misc Panel) 217H 05/13/20 06:08: Bedside Glucose (Misc Panel) 180H 05/13/20 08:13: Nucleated Red Blood Cells % (auto) 0.0, Anion Gap 6L, Glomerular Filtration Rate 34.9L, Calcium Level 8.3L, Total Bilirubin 1.9H, Aspartate Amino Transf (AST/SGOT) 21, Alanine Aminotransferase (ALT/SGPT) 19, Alkaline Phosphatase 199H, Total Protein 4.8L, Albumin 3.0L, Albumin/Globulin Ratio 1.7 CBC/BMP Laboratory Tests 05/13/20 08:13 Microbiology Microbiology 05/06/20 Stool Occult Blood (ALEM) - Final, Complete 05/05/20 Blood Culture - Final, Complete NO GROWTH AFTER 5 DAYS 05/05/20 Blood Culture - Final, Complete NO GROWTH AFTER 5 DAYS 05/05/20 Acid Fast Stain, Received Pending 05/05/20 Mycobacterial Culture, Received Pending 05/05/20 Fungal Smear, Received Pending 05/05/20 Fungal Culture, Received Pending VITOR LIVINGSTON MD May 13, 2020 10:14
[2020-05-13] MEDS ORDERED: PILL CUTTER 1 EACH XX PRN (12:55)
--- NOTE | 2020-05-13 13:12 | IPN ---
PROGRESS NOTE DATE: 05/13/2020 Patient is seen and examined at the bedside. Chart has been reviewed. Despite blood pressure is 96/59 to 98/56 and being on midodrine 5 mg three times a day, patient denies any lightheadedness, chest pain, pressure, dizziness, fatigue, or weakness. He is able to ambulate from bed to the bathroom without any difficulty and feels back to his baseline. He denies any shortness of breath despite just resuming the torsemide 20 mg twice a day. No visual changes or headaches. No cough, fever, or chills. Input and output overnight: Input 1650, output 920, positive 730, current weight is 120.6 kg from admission weight 120.9 kg and previous weight of 118.6 kg on 05/10/2020. OBJECTIVE: PHYSICAL EXAMINATION: Vital signs: Temperature 98, pulse 78, respiratory rate 18, blood pressure 98/56, 96% on 1 liter nasal cannula. Generally: Awake, alert, oriented to person, place, and time. Has supplemental oxygen. Well-healed sternotomy scar in the chest. No jugular venous distension (JVD), thyromegaly, cervical lymphadenopathy. Moist mucous membranes. Speaks in full sentences without use of respiratory accessory muscles. Lungs are diminished, fine crackles at the bases. Heart: S1, S2, irregularly irregular, not tachycardic. Abdomen is obese, soft, nontender, mild fluid wave. Extremities: Positive pitting edema. LABORATORY DATA: White count 7.7, hemoglobin 9.1, hematocrit 34, platelet count 109, sodium 142, potassium 4.7, chloride 110, bicarbonate 26, BUN 69, creatinine 2, glucose of 172, total bilirubin 1.9, AST 21, ALT 19, alkaline phosphatase 199. ASSESSMENT AND PLAN: This is a 74-year-old male with history of nonalcoholic steatohepatitis causing liver cirrhosis, congestive heart failure (CHF), ejection fraction (EF) of 65%, preserved systolic function, presented with symptomatic anemia with history of esophageal bleeding, found to have severe anemia requiring six units red blood cells (RBC) transfusion, seven albumin infusions due to decompensated liver cirrhosis. Patient underwent EGD by Dr. Prince on 05/09/2020 with nonbleeding grade 3 large varices found in the lower third of the esophagus and stigmata of recent bleeding and gastric antral vascular ectasia (GAVE) with mild portal hypertensive gastropathy in the gastric body and antrum. Patient was continued on IV octreotide for 3 days. He is to finish 7 days of antibiotics and Protonix for 6 weeks. CURRENT ISSUES: 1. Symptomatic anemia secondary to esophageal variceal bleeding and gastric antral vascular ectasia bleeding with portal gastropathy due to known history of nonalcoholic steatohepatitis induced decompensated liver cirrhosis with portal hypertension and ascites. Patient has been transfused six units of red blood cells (RBCs), seven units of fresh frozen plasma (FFP), and was on IV Lasix for diuresis, but developed worsening renal failure, now at stage IV, improved off Lasix drip now to stage III renal failure. 2. Decompensated nonalcoholic steatohepatitis induced liver cirrhosis with portal hypertension, ascites, esophageal varices with bleeding status post Lasix drip. Now back on torsemide twice a day, managed by nephrology and continued on spironolactone. Patient remains in positive fluid balance but has been hypotensive and started on midodrine by nephrology. Defer to nephrology for further diuresis due to severe hypotension. 3. Anemia and thrombocytopenia. Stable off Eliquis currently. 4. History of chronic atrial fibrillation. Rate controlled off Eliquis due to recent gastrointestinal (GI) bleed, esophageal varices, and gastric antral vascular ectasia (GAVE). 5. Congestive heart failure with preserved systolic function, ejection fraction (EF) of 65%. Currently managed by nephrology for fluid balance. MTDD
--- NOTE | 2020-05-13 13:27 | REP ---
INDICATION: fluid overload r/o pleural effusions. COMPARISON: 01/30/2019. TECHNIQUE: Upright PA and lateral chest. FINDINGS: There are bilateral pleural effusions as an interval change. There is cardiomegaly, unchanged. There is a single lead pacemaker, unchanged. Lung newman are otherwise clear. There is a right upper extremity PICC line as an interval change with the tip in satisfactory location in the superior vena cava. IMPRESSION: Bilateral pleural effusions as an interval change. Right upper extremity PICC line as an interval change. Cardiomegaly, unchanged. Lung newman otherwise clear. <Electronically signed by Jason Ceron > 05/13/20 [id number]
--- NOTE | 2020-05-13 16:31 | REP ---
INDICATION: ascites liver cirrhosis. COMPARISON: None. TECHNIQUE: The procedure was performed under the direct supervision of Dr. Marrero. The risks and benefits of the procedure were explained to the patient and informed consent was obtained. The risks and benefits of the procedure were explained to the patient and informed consent was obtained. The largest pocket of fluid was localized in the right lower quadrant using ultrasound guidance. The skin was prepped and draped in a sterile fashion. 1% lidocaine was used as a local anesthetic. Using ultrasound guidance, an 8-[place] multi side-hole catheter was inserted using trocar technique. 3800 cc of yellow fluid was withdrawn and discarded. The patient tolerated the procedure well and there were no immediate complications. After the appropriate amount of monitored convalescence, the patient was discharged from the department. FINDINGS: None IMPRESSION: Ultrasound-guided paracentesis yielding 3800 cc of yellow fluid. <Electronically signed by Jaden Piedra > 05/13/20 1600 <Electronically signed by Chucho Marrero > 05/13/20 2108
[2020-05-13] MEDS: TORSEMIDE (DEMADEX) 50 MG PER 1/2 TAB PO SCH (17:00)
[2020-05-14] MEDS: PANTOPRAZOLE 40MG VIAL (C9113 PER 1) IV SCH ×2 (04:47→17:38)
[2020-05-14] MEDS: LEVOTHYROXINE 75MCG TABLET (0.075MG) PO SCH (05:47)
[2020-05-14] MEDS: SLF 3 ML SYR IV SCH (05:48)
[2020-05-14] MEDS: LEVOTHYROXINE 100MCG TABLET (0.1MG) PO SCH (05:48)
[2020-05-14] MEDS: SODIUM CHLORIDE 0.9% INJ 10 ML SYR IV SCH ×2 (05:48→17:37)
[2020-05-14 06:00] VITALS: BP 103/52
[2020-05-14 06:54] LABS: CALCIUM LEVEL 8.4 MG/DL (8.8-10.2); CREATININE FOR GFR 1.88 MG/DL (0.70-1.30); GLOMERULAR FILTRATION RATE 37.5 (>42)
--- NOTE | 2020-05-14 07:55 | IPN ---
PROGRESS NOTE DATE: 05/13/2020 SUBJECTIVE: Patient was seen and examined at the bedside today morning. He is afebrile, hemodynamically stable. He was started on Torsemide yesterday, he is tolerating the current dose well. His renal function is stable, however, he still reports persistent lower extremity edema and abdominal distention. OBJECTIVE: VITAL SIGNS: Temperature 98 degrees Fahrenheit, blood pressure 104/64, pulse 62, respiratory rate 18, sating 93% on nasal cannula at 1 liter. INTAKE/OUTPUT: Urine output recorded as 900 mL so far since overnight. Weight in the bed scale is 120.6 kg. PHYSICAL EXAMINATION: GENERAL: Patient is awake, alert and oriented x3, lying in bed, in no apparent distress. HEENT: Extraocular muscles intact. Pupils equally round and reactive to light. Mucous membranes are moist. Neck is supple. There is mildly elevated JVD. RESPIRATORY: Mildly decreased breath sounds at the bases. CARDIOVASCULAR: S1, S2, regular rate. 1+ edema of bilateral lower extremities. ABDOMEN: Soft, positive abdominal edema in the flanks and around the umbilicus, mild amount of ascites with shifting dullness to percussion in the flanks was noted. MUSCULOSKELETAL: 1+ edema of the bilateral lower extremities. FEED AND FARM MANAGEMENT ADVISER: No focal deficit. Power is 5/5 in all extremities. LAB REVIEW: CBC showed WBC 7.7, hemoglobin 9.1, platelets 109,000. BMP showed sodium 142, potassium 4.7, chloride 110, bicarb 26, BUN 69, creatinine 2; it was 2.05 yesterday. Total bilirubin 1.9. Albumin 3. CURRENT INPATIENT MEDICATIONS: Patient's medications were all reviewed by myself. His I.V. Ceftriaxone has been stopped. Midodrine dose has been increased to 7.5 mg p.o. every 8 hours. Patient continues to be on Spironolactone 25 mg p.o. twice a day. I have increased the Torsemide dose to 50 mg p.o. twice a day. ASSESSMENT AND PLAN: 1. Acute renal failure superimposed on chronic kidney disease: Patient's renal function has improved, we are almost close back to baseline, baseline creatinine 1.8. Okay to continue diuretics at this time. 2. Decompensated liver cirrhosis and ascites: Patient went again for ascitic tap; 3.8 liters of fluid was removed. Continue Spironolactone. Torsemide dose has been increased to 50 mg p.o. twice a day. 3. Hypotension: Patient's Midodrine dose has been increased to 7.5 mg p.o. three times a day. Blood pressure is controlled. 4. Chronic diastolic congestive heart failure: Patient still has lower extremity edema, abdominal wall edema and ascites; as mentioned above his Torsemide is increased. Spironolactone will be further increased based upon his potassium levels. 5. Anemia secondary to GI bleed: He continues to be on Protonix. He is no longer requiring Sandostatin. Transfuse p.r.n. for hemoglobin below 8 only. MTDD
[2020-05-14] MEDS: allopurinoL 100 MG TAB PO SCH (08:25)
[2020-05-14] MEDS: HumaLOG INSULIN (NovoLOG) PER UNIT SC SCH ×4 (08:25→21:00)
[2020-05-14 08:30] VITALS: BP 128/64
[2020-05-14] MEDS: MIDODRINE 5 MG TAB PO SCH ×3 (08:30→17:38)
[2020-05-14] MEDS: SPIRONOLACTONE 25 MG TAB PO SCH ×2 (08:30→17:38)
[2020-05-14] MEDS: TORSEMIDE (DEMADEX) 50 MG PER 1/2 TAB PO SCH ×2 (08:30→17:38)
[2020-05-14] MEDS: TRIAMCINOLONE ACET 0.1% OINTMENT 15 GM TOP SCH ×2 (08:31→21:00)
[2020-05-14] MEDS ORDERED: TORS100T PO (09:19)
[2020-05-14] MEDS ORDERED: PROT1TAB2 PO (09:19)
[2020-05-14] MEDS ORDERED: MIDO5TA PO (09:19)
--- NOTE | 2020-05-14 09:23 | IPNPDOC ---
Date Seen The patient was seen on 05/14/20. Progress Note Hospitalist progress note dictated job #[id number]. pls call hypertype at [phone] for stat attending urologist. VS, I&O, 24H, Fishbone Vital Signs/I&O Vital Signs Date Time Temp Pulse Resp B/P (MAP) Pulse Ox O2 Delivery O2 Flow Rate FiO2 05/14/20 08:30 77 128/64 (85) 05/14/20 06:00 97.6 18 92 Nasal Cannula 2.0 I&O- Last 24 Hours up to 6 AM 05/14/20 06:00 Intake Total 1830.0 ml Output Total 475 ml Balance 1355.0 ml Laboratory Data 24H LABS Laboratory Tests 2 05/13/20 11:51: Bedside Glucose (Misc Panel) 262H 05/13/20 16:32: Bedside Glucose (Misc Panel) 183H 05/13/20 21:09: Bedside Glucose (Misc Panel) 207H 05/14/20 05:51: Anion Gap 7L, Glomerular Filtration Rate 37.5L, Calcium Level 8.4L CBC/BMP Laboratory Tests 05/14/20 05:51 Microbiology Microbiology 05/06/20 Stool Occult Blood ([facility]) - Final, Complete 05/05/20 Blood Culture - Final, Complete NO GROWTH AFTER 5 DAYS 05/05/20 Blood Culture - Final, Complete NO GROWTH AFTER 5 DAYS 05/05/20 Acid Fast Stain, Received Pending 05/05/20 Mycobacterial Culture, Received Pending 05/05/20 Fungal Smear, Received Pending 05/05/20 Fungal Culture, Received Pending VITOR LIVINGSTON MD May 14, 2020 09:23
[2020-05-14 13:31] VITALS: BP 108/48
--- NOTE | 2020-05-14 15:50 | IPN ---
PROGRESS NOTE DATE: 05/14/2020 SUBJECTIVE: Patent says "I feel great." He denies any shortness of breath, paroxysmal nocturnal dyspnea (PND), orthopnea, dyspnea on exertion. Able to ambulate from the bed to the bathroom without any difficulty. Patient lives alone and was kept overnight due to recent increase in torsemide to 50 mg twice a day and hypotension with a blood pressure of 99/57 yesterday due to increased risk of possible hypotension and dissolution of syncope. Patient was kept overnight to make sure that he remained stable. His midodrine was increased also to 10 mg at 8:00, noon and 1600 hours. He underwent paracentesis yesterday with fluid, 3.8 liters, removed and was stable overnight. No other issues this morning. Patient's rash on lower back has improved on triamcinolone. He does not have any pain of that rash. No vesicular lesions. He also says that his back pain is controlled and he knows what activity level he should have and what maneuvers he can do to lessen the pain. OBJECTIVE: PHYSICAL EXAMINATION: VITAL SIGNS: Temperature 97.6, pulse 61, respiratory rate 18, blood pressure 128/64, 92% on 2 liters nasal cannula. GENERAL: Patient is awake, alert, oriented to person, place and time. He has no conversational dyspnea. Able to speak in full sentences. No pallor. No icterus or jaundice. HEENT: No jugular venous distention (JVD), thyromegaly or cervical lymphadenopathy. No stridor. No carotid bruit. LUNGS: Diminished, but clear to auscultation. No wheezing, rales or rhonchi. HEART: S1, S2. Sinus rhythm. No murmurs, rubs or gallops. ABDOMEN: Distended. Decreased distention from yesterday. No fluid waves. Positive bowel sounds times four quadrants. Difficult to assess for hepatosplenomegaly or abnormal bruit. EXTREMITIES: Pitting edema 1+ bilaterally. LABORATORY DATA: White count 7.7, hemoglobin 9.1, hematocrit 34.7, platelet count 109. Sodium 142, potassium 5, chloride 110, bicarbonate 25, BUN 72, creatinine 1.88, glucose 183. IMAGING STUDIES: Paracentesis also found 3.8 liters yellow fluid which were run and discarded. ASSESSMENT AND PLAN: This is a 74-year-old male with nonalcoholic steatohepatitis-induced liver cirrhosis and portal hypertension, recurrent ascites, chronic kidney disease stage III, esophageal bleeding with esophageal varices, congestive heart failure with preserved systolic function, diastolic dysfunction, ejection fraction (EF) of 65%, presented to the emergency room with symptomatic anemia and decompensated liver cirrhosis with portal hypertension and ascites. Patient was found to have hemoglobin of 5.6 on hospital admission status post 6 units of red blood cells transfusion. Current issues are as follows: 1. Symptomatic anemia, resolved. Status post esophageal bleeding with history of banding, recent stigmata of bleeding from gastric antral vascular ectasia stabilized by supervisor marble, Dr. Prince. Patient was continued on IV octreotide for three days, continued on Protonix for a total of six weeks, completed intravenous (IV) antibiotics with ceftriaxone, now off antibiotics. 2. Decompensated liver cirrhosis with portal hypertension and ascites. Patient had paracentesis on 05/13/2020 with 3.8 liters out. He is status post fresh frozen plasma total of 8 units, currently stable on midodrine with blood pressure of 104-128 systolic with holding parameters. 3. Acute blood loss anemia from esophageal variceal bleeding and gastric antral vascular ectasia bleed. Currently with stable hemoglobin 9.1 and hematocrit of 34.7. Outpatient followup with Dr. Prince as outpatient. 4. Acute on chronic renal failure. Back to stage III renal failure, doing much better. He has diuresed 1.225 liters out yesterday with 3.8 liters out via paracentesis with weight decrease from 121 kilos to 120.6 kilos. Currently on torsemide 50 mg twice a day and spironolactone 25 mg twice a day, which has been discontinued due to potassium of 5 today. DISPOSITION: Patient may be discharged tomorrow if remains stable. Outpatient followup with gastroenterology, nephrology and patient's poising inspector. JAIMIE
[2020-05-14 17:39] VITALS: BP 111/87
[2020-05-14 22:00] VITALS: BP 95/61
--- NOTE | 2020-05-14 22:59 | IPN ---
NEPHROLOGY PROGRESS NOTE DATE: 05/14/2020 SUBJECTIVE: Patient was seen and examined at the bedside today morning. He is afebrile, hemodynamically stable. He was not discharged yesterday. He had abdominal distension. He was sent for ascitic tap and his ascites was tapped. Renal function is stable. Creatinine is down to 1.8. He continues to be on high dose torsemide. Edema is getting better. OBJECTIVE: VITAL SIGNS: Temperature 98.1 degrees Fahrenheit, blood pressure 108/48, pulse 69, respiratory rate 20, saturating 92% on nasal cannula at 0.5 liters. INTAKE AND OUTPUT: Urine output recorded as 12.2 liters yesterday, 150 mL so far today since overnight. Weight in the bed scale is 120.6 kg yesterday. PHYSICAL EXAMINATION: GENERAL: Patient is awake, alert, oriented times three, laying in bed in no apparent distress. HEAD AND NECK EXAM: Extraocular muscles intact. Pupils equally round and reactive to light. Mucous membranes are moist. Neck is supple. There is no significant jugular venous distention (JVD). CARDIOVASCULAR: S1, S2. Regular rate. Edema 1+ of the thighs is noted. RESPIRATORY: Chest is clear to auscultation bilaterally. Bilateral equal air entry. No rales or rhonchi. ABDOMEN: Soft. Distended. Abdominal ascites is better today. He still has pitting abdominal wall edema. MUSCULOSKELETAL: No clubbing or cyanosis. Pulses are 2+. CENTRAL NERVOUS SYSTEM (LEAD TELLER): No focal deficits. Power is 5/5 in all extremities. LABORATORY REVIEW: CBC is from yesterday. BMP was done today, which showed sodium 142, potassium 5, chloride 110, bicarbonate 25, BUN 72, creatinine 1.8 (it was 2 yesterday). CURRENT INPATIENT MEDICATIONS: Patient's medications were all reviewed by myself. Midodrine dose has been increased to 10 mg by mouth three times a day. He continues to be on spironolactone 25 mg by mouth twice a day. Torsemide dose was 50 mg by mouth twice a day, which was started yesterday. ASSESSMENT AND PLAN: 1. Acute renal failure superimposed on chronic kidney disease. Patient's renal function is improving. Creatinine has improved back to baseline. Okay to continue diuretics at this time. 2. Chronic diastolic congestive heart failure. The patient still has signs of edema in the thighs and abdominal wall. Continue torsemide 50 mg by mouth twice a day and spironolactone 25 mg by mouth twice a day. 3. Decompensated liver cirrhosis and ascites. Patient got the ascitic tap done yesterday. Continue torsemide 50 mg by mouth twice a day and spironolactone 25 mg by mouth twice a day. 4. Hypotension. It is better controlled with midodrine, which has been increased to 10 mg by mouth three times a day.
[2020-05-15] VITALS (7 sets, daily range): BP systolic 88–98; BP diastolic 50–66
[2020-05-15] MEDS: PANTOPRAZOLE 40MG VIAL (C9113 PER 1) IV SCH (03:57)
[2020-05-15] MEDS: SODIUM CHLORIDE 0.9% INJ 10 ML SYR IV SCH ×2 (05:30→17:21)
[2020-05-15] MEDS: LEVOTHYROXINE 75MCG TABLET (0.075MG) PO SCH (05:30)
[2020-05-15] MEDS: LEVOTHYROXINE 100MCG TABLET (0.1MG) PO SCH (05:30)
[2020-05-15 06:21] LABS: CALCIUM LEVEL 8.2 MG/DL (8.8-10.2); CREATININE FOR GFR 2.03 MG/DL (0.70-1.30); GLOMERULAR FILTRATION RATE 34.3 (>42)
--- NOTE | 2020-05-15 08:57 | IPNPDOC ---
Date Seen The patient was seen on 05/15/20. Progress Note Hospitalist progress note dictated job #[id number]. Pls have unit control clerk call hypertype at [phone] for stat industrial roofer. VS, I&O, 24H, Fishbone Vital Signs/I&O Vital Signs Date Time Temp Pulse Resp B/P (MAP) Pulse Ox O2 Delivery O2 Flow Rate FiO2 05/15/20 06:00 97.9 60 18 96/66 (76) 92 Room Air 05/14/20 21:00 1.0 I&O- Last 24 Hours up to 6 AM 05/15/20 06:00 Intake Total 2510 ml Output Total 1075 ml Balance 1435 ml Laboratory Data 24H LABS Laboratory Tests 2 05/14/20 11:22: Bedside Glucose (Misc Panel) 245H 05/14/20 16:39: Bedside Glucose (Misc Panel) 281H 05/14/20 21:03: Bedside Glucose (Misc Panel) 188H 05/15/20 05:33: Anion Gap 7L, Glomerular Filtration Rate 34.3L, Calcium Level 8.2L CBC/BMP Laboratory Tests 05/15/20 05:33 Microbiology Microbiology 05/06/20 Stool Occult Blood (AL[facility]) - Final, Complete 05/05/20 Blood Culture - Final, Complete NO GROWTH AFTER 5 DAYS 05/05/20 Blood Culture - Final, Complete NO GROWTH AFTER 5 DAYS 05/05/20 Acid Fast Stain, Received Pending 05/05/20 Mycobacterial Culture, Received Pending 05/05/20 Fungal Smear, Received Pending 05/05/20 Fungal Culture, Received Pending VITOR LIVINGSTON MD May 15, 2020 08:57
[2020-05-15] MEDS: TORSEMIDE (DEMADEX) 50 MG PER 1/2 TAB PO SCH ×2 (09:00→17:00)
[2020-05-15] MEDS: HumaLOG INSULIN (NovoLOG) PER UNIT SC SCH ×4 (09:04→22:11)
[2020-05-15] MEDS: TRIAMCINOLONE ACET 0.1% OINTMENT 15 GM TOP SCH ×2 (09:06→22:10)
[2020-05-15] MEDS: allopurinoL 100 MG TAB PO SCH (09:06)
[2020-05-15] MEDS: MIDODRINE 5 MG TAB PO SCH ×3 (09:07→17:19)
[2020-05-15] MEDS: SPIRONOLACTONE 25 MG TAB PO SCH ×2 (11:30→19:52)
--- NOTE | 2020-05-15 13:13 | IPN ---
PROGRESS NOTE DATE: 05/15/2020 SUBJECTIVE: Patient seen and examined at the bedside. Chart has been reviewed. Despite blood pressure of 95-96 systolic, patient denies lightheadedness, near syncope, palpitations. Ambulating well from the bed to the bathroom without much difficulty. Denies any shortness of breath. Patient's potassium this morning is 5 after being started on spironolactone twice a day. Urine output overnight was 850, since midnight 375 yesterday. Current weight is 117 kg from previous weight of 120.6 kg. Patient did have paracentesis done on May 13 with 3.8 liters removed of yellow fluid. Patient is afebrile. OBJECTIVE: PHYSICAL EXAMINATION: VITAL SIGNS: Temperature 97.9, pulse 60, respiratory rate 18, blood pressure 96/66, 92% on room air. GENERAL: Awake, alert, oriented times, answering questions appropriately. No use of respiratory accessory muscles. No conversational dyspnea. No pallor, icterus, or jaundice. No jugular venous distention (JVD), thyromegaly, or cervical lymphadenopathy. No stridor, carotid bruit. LUNGS: Clear to auscultation. No wheezing or rales. HEART: S1, S2, sinus rhythm. ABDOMEN: Obese, soft, nontender, nondistended. EXTREMITIES: Pitting edema 1+, bilateral lower extremities. May 13 CBC reviewed. May 15 metabolic panel: Sodium 141, potassium 5, chloride 109, bicarbonate 25, BUN 75, creatinine 2.03, glucose of 189. ASSESSMENT AND PLAN: A 74-year-old male with history of diastolic heart failure, coronary artery disease (CAD), stent, chronic kidney disease, stage III, liver cirrhosis secondary to nonalcoholic steatohepatitis, portal hypertension, and esophageal bleeding with esophageal varices presented to the emergency room with symptomatic anemia, hemoglobin of 5.6, and decompensated liver cirrhosis with worsening renal failure and fluid overload CURRENT ISSUES: 1. Decompensated liver cirrhosis with portal hypertension and recurrent ascites, status post paracentesis. 2. Symptomatic anemia, status post 6 units red blood cells (RBC) transfusion. 3. Acute blood loss anemia secondary to gastrointestinal (GI) bleed from variceal bleeding as well as gastric antral vascular ectasia bleeding. 4. Congestive heart failure. Ejection fraction 65% with preserved systolic function, diastolic dysfunction with fluid overload. 5. Stage III-IV renal failure with acute on chronic renal failure due to fluid overload from anasarca. PLAN: Nephrology adjusting diuretics due to potassium of 5. Patient's spironolactone is temporarily discontinued. He continues to have persistent hypotension and is currently on 10 mg of midodrine at 0812 and 1600. Will defer to nephrology to adjust patient's spironolactone despite a potassium of 5. Discharge plans in the morning if continues to diurese well and potassium is not greater than 5. MTDD
--- NOTE | 2020-05-15 18:56 | IPN ---
NEPHROLOGY PROGRESS NOTE DATE: 05/15/2020 SUBJECTIVE: Patient was seen and examined at the bedside today morning. He is afebrile, hemodynamically stable. He reports that his leg edema is getting better. He continues to be on a high dose of diuretics. Renal function is stable with a creatinine of 2 today. OBJECTIVE: VITAL SIGNS: Temperature 96.5 degrees Fahrenheit, blood pressure 98/53, pulse 64, respiratory rate 18, saturating 95% on room air. INTAKE AND OUTPUT: Urine output recorded as 375 mL yesterday. He had some voids that were not being recorded. Urine output so far today since overnight is 150 mL. Weight in the bed scale is 117 kg. PHYSICAL EXAMINATION: GENERAL: Patient is awake, alert, oriented times three, laying in bed in no apparent distress. HEAD AND NECK EXAM: Extraocular muscles intact. Pupils equally round and reactive to light. Mucous membranes are moist. Neck is supple. There is no jugular venous distention (JVD). CARDIOVASCULAR: S1, S2. Regular rate. Trace edema of the bilateral lower extremities. RESPIRATORY: Chest is clear to auscultation bilaterally. Bilateral equal air entry. No rales or rhonchi. ABDOMEN: Soft. Positive bowel sounds. Abdominal wall edema is noted. MUSCULOSKELETAL: Trace edema of the bilateral lower extremities. CENTRAL NERVOUS SYSTEM (LINE MANAGER): No focal deficits. Power is 5/5 in all extremities. LABORATORY REVIEW: CBC is from yesterday. BMP today showed sodium 141, potassium 5, chloride 109, bicarbonate 25, BUN 75, creatinine is 2 (it was 1.8 yesterday). CURRENT INPATIENT MEDICATIONS: Patient's medications were all reviewed by myself. He continues to be on torsemide 50 mg by mouth twice a day, spironolactone 25 mg by mouth twice a day. No other significant change in the medications. ASSESSMENT AND PLAN: 1. Acute renal failure superimposed on chronic kidney disease. Patient's renal function is stable. Creatinine has been fluctuating close to 2. Okay to continue diuretics at this time. 2. Chronic diastolic congestive heart failure. Volume status is getting better. He is slowly losing weight. Continue torsemide 50 mg by mouth twice a day and spironolactone 25 mg by mouth twice a day. 3. Decompensated liver cirrhosis and ascites. Patient got ascitic tap done again during the hospitalization. It was less than 4 liters. Continue current diuretic regimen. 4. Hypotension. Continue current dose of midodrine 10 mg by mouth three times a day.
[2020-05-16] MEDS: LEVOTHYROXINE 75MCG TABLET (0.075MG) PO SCH (05:34)
[2020-05-16] MEDS: SODIUM CHLORIDE 0.9% INJ 10 ML SYR IV SCH (05:34)
[2020-05-16] MEDS: LEVOTHYROXINE 100MCG TABLET (0.1MG) PO SCH (05:34)
[2020-05-16 06:00] VITALS: BP 94/60
[2020-05-16 06:45] LABS: CALCIUM LEVEL 8.3 MG/DL (8.8-10.2); CREATININE FOR GFR 2.08 MG/DL (0.70-1.30); GLOMERULAR FILTRATION RATE 33.4 (>42)
[2020-05-16] MEDS ORDERED: ALDA25TA2 PO (07:33)
[2020-05-16] MEDS: HumaLOG INSULIN (NovoLOG) PER UNIT SC SCH (08:33)
[2020-05-16] MEDS: SPIRONOLACTONE 25 MG TAB PO SCH (08:34)
[2020-05-16] MEDS: MIDODRINE 5 MG TAB PO SCH (08:34)
[2020-05-16] MEDS: TORSEMIDE (DEMADEX) 50 MG PER 1/2 TAB PO SCH (08:34)
[2020-05-16] MEDS: allopurinoL 100 MG TAB PO SCH (08:34)
[2020-05-16] MEDS: TRIAMCINOLONE ACET 0.1% OINTMENT 15 GM TOP SCH (08:34)
[2020-05-16] MEDS ORDERED: PANTOPRAZOLE 40MG TAB (PROTONIX) PO SCH (09:00)
--- NOTE | 2020-05-16 09:34 | DS.PDOC ---
Discharge Summary General Date of Admission May 05, 2020 at 15:18 Date of Discharge 05/16/20 Discharge Summary Hospitalist discharge summary dictated job #[id number]. Please have social media community manager call hyper type at [phone] for stat bb shot packer Vital Signs/I&Os Vital Signs Date Time Temp Pulse Resp B/P (MAP) Pulse Ox O2 Delivery O2 Flow Rate FiO2 05/16/20 06:00 99.1 62 18 94/60 (71) 96 Room Air 05/14/20 21:00 1.0 I&O- Last 24 Hours up to 6 AM 05/16/20 06:00 Intake Total 1320 ml Output Total 750 ml Balance 570 ml Laboratory Data Labs 24H Laboratory Tests 2 05/15/20 11:31: Bedside Glucose (Misc Panel) 267H 05/15/20 16:40: Bedside Glucose (Misc Panel) 204H 05/15/20 21:35: Bedside Glucose (Misc Panel) 282H 05/16/20 05:31: Anion Gap 3L, Glomerular Filtration Rate 33.4L, Calcium Level 8.3L CBC/BMP Laboratory Tests 05/16/20 05:31 FSBS Laboratory Tests Test 05/15/20 11:31 05/15/20 16:40 05/15/20 21:35 Range/Units Bedside Glucose (Misc Panel) 267 204 282 83-110 MG/DL Microbiology Microbiology 05/06/20 Stool Occult Blood ([facility]) - Final, Complete Discharge Medications Scheduled Allopurinol (Allopurinol) 100 Mg Tablet, 100 MG PO DAILY, (Reported) Apixaban (Eliquis) 2.5 Mg Tablet, 2.5 MG PO BID, (Reported) HELD SINCE TUESDAY 05/02 FOR PROCEDURE Ascorbic Acid (Vitamin C) 500 Mg Tablet, 500 MG PO DAILY, (Reported) TAKES AT NOON Cholecalciferol (Vitamin D3) (Vitamin D3) 1,000 Unit Tablet, 2,000 UNITS PO DAILY, (Reported) TAKES AT NOON Colesevelam Hydrochloride (Welchol) 625 Mg Tablet, 3,750 MG PO QHS, (Reported) Glucosamine/Chondroitin/C/Clay (Glucosamine-Chondroitin Capsul) 1 Cap Cap, 1 CAP PO BID, (Reported) Insulin Aspart (Novolog Flexpen) 100 Unit/1 Ml Insuln.pen, 1 DOSE SC AC, (Reported) PER SLIDING SCALE Insulin Detemir (Levemir) 1 Units/0.01 Ml Susp, 40 UNITS SC BID, (Reported) Levothyroxine Sodium (Levothyroxine Sodium) 175 Mcg Tab, 175 MCG PO QAM, (Reported) Midodrine HCl (Midodrine HCl) 5 Mg Tablet, 10 MG PO 08,12,16 Multivitamin (Multivitamins) 1 Each Tablet, 1 TAB PO DAILY, (Reported) TAKES AT NOON Omeprazole (Omeprazole) 40 Mg Cap, 40 MG PO QHS, (Reported) Pantoprazole Sodium (Protonix) 40 Mg Tablet.dr, 40 MG PO DAILY Spironolactone (Aldactone) 25 Mg Tablet, 25 MG PO BID@09,17 Torsemide (Torsemide) 100 Mg Tablet, 50 MG PO BID@09,17 Vit A/Vit C/Vit E/Zinc/Copper (Preservision Areds Softgel) 1 Each Capsule, 1 CAP PO BID, (Reported) [Previgen Otc] , 1 TAB PO DAILY, (Reported) Scheduled PRN Albuterol Sulfate (Proair Hfa) 108 Mcg/Act Aer, 2 PUFFS INH QID PRN for SHORTNESS OF BREATH, (Reported) Allergies Coded Allergies: valsartan (Verified Allergy, Unknown, UNKNOWN REACTION, 01/21/19) Quinolones (Verified Adverse Reaction, Mild, GI UPSET, 01/21/19) atorvastatin (Verified Adverse Reaction, Mild, GI UPSET, 01/21/19) VITOR LIVINGSTON MD May 16, 2020 09:34
--- NOTE | 2020-05-16 13:37 | DSES ---
DISCHARGE SUMMARY DATE OF ADMISSION: 05/05/2020 DATE OF DISCHARGE: 05/16/2020 CONSULTANTS: 1. Rheostat Assembler, Dr. Prince. 2. Senior Systems Programmer, Dr. Rodriguez. PROCEDURES DURING THIS ADMISSION: EGD on 05/09/2020. PRIMARY DISCHARGE DIAGNOSES: 1. Symptomatic anemia with acute gastrointestinal (GI) bleed secondary to gastric antral vascular ectasia and esophageal variceal bleeding. 2. Acute blood loss anemia requiring 6 unit red blood cells (RBC) transfusion. 3. 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 4. Recurrent ascites requiring 7 unit fresh frozen plasma transfusion and paracentesis. 5. Acute on chronic kidney disease stage 3 to 4. 6. Hyponatremia. 7. Fluid overload secondary to worsening renal failure. 8. Anasarca from liver disease. 9. Congestive heart failure. 10. Diastolic dysfunction with preserved systolic function with ejection fraction (EF) of 65%, compensated. 11. BMI of 33. 12. Hypertensive heart disease. 13. Chronic atrial fibrillation. 14. Nonalcoholic liver cirrhosis. 15. Recurrent ascites. 16. Type 2 diabetes. 17. Chronic hypotension. DISCHARGE INSTRUCTIONS: The patient is to continue on Protonix. Outpatient follow-up with Dr. Prince. The patient completed seven days of antibiotics. Repeat EGD as outpatient. Follow-up with Dr. Rodriguez within five days of discharge. 1.8 liter fluid restriction. Strict intake and output (Is and Os), and daily weights. Call Dr. Rodriguez or your rattling machine tender if more than two pound weight gain. Hold your torsemide and Spironolactone for systolic pressure less than 106. HOSPITAL COURSE: This is a 74-year-old male who presented to the emergency room with symptomatic anemia, shortness of breath, decompensated liver cirrhosis with anasarca found to have a hemoglobin of 5.6, status post 6 RBC transfusions. EGD showed esophageal variceal bleeding despite banding and gastric antral vascular ectasia, stabilized by Dr. Prince a erp project manager. He was placed on octreotide for three days, Protonix 40 IV b.i.d., and continued on Protonix 40 daily and completed seven days of IV ceftriaxone. The patient received 8 units of albumin 25% transfusion. Had paracentesis with 3.8 liters removed due to anasarca and persistent fluid overload. The patient's creatinine increased from stage 3 to stage 4 renal failure. Senior Systems Programmer, Dr. Rodriguez, was consulted and Lasix IV drip was discontinued for two days with improvement in creatinine to 1.88 and resumed back on torsemide 50 mg b.i.d. He had episodes of hypotension with systolic pressure ranging from 98 to 91 systolic, given midodrine 10 mg t.i.d. with improvement in blood pressure enough to allow for diuresis. The patient's highest weight was 121 kg and current weight of 116.6 kg. He currently feels well and is anxious to go home. Per his transformer assembler, he is to keep to a fluid restriction, salt-restricted diet, and to follow-up in the office within five days of hospital discharge. DISCHARGE PHYSICAL EXAMINATION: VITAL SIGNS: Temperature 99, pulse 62, respiratory rate 18, blood pressure 94/60, O2 saturation 96% on room air. GENERAL APPEARANCE: The patient is awake, alert, and oriented to person, place, and time. Answering questions appropriately. LUNGS: Clear to auscultation with no wheezing, rales, or rhonchi. HEART: S1, S2. Sinus rhythm. EXTREMITIES: Trace edema bilaterally. LABORATORY DATA: Creatinine of 2.08, hemoglobin 9.1, hematocrit of 34, platelet count of 109,000. Time spent on discharge 30 minutes. MTDD
== END 2020-05-16 11:21 | disposition home health service (06) | DRG 432 ==
LOC: M ED 12:57 → M ED INP 15:18 → EEVIPCON 15:18 → ENRESERV 16:12 → M PCU 16:46 → M MSPAV 05-11 14:37
PROVIDERS: ADMIT Internal Medicine; ATTEND General Practice
PROC: 30233N1 Transfusion of Nonautologous Red Blood Cells into Peripheral Vein, Percutaneous Approach (ICD-10-PCS; 2020-05-05)
PROC: 02HV33Z Insertion of Infusion Device into Superior Vena Cava, Percutaneous Approach (ICD-10-PCS; 2020-05-09)
PROC: 0DJ08ZZ Inspection of Upper Intestinal Tract, Via Natural or Artificial Opening Endoscopic (ICD-10-PCS; principal; 2020-05-09 14:00)
PROC: 0W9G3ZZ Drainage of Peritoneal Cavity, Percutaneous Approach (ICD-10-PCS; 2020-05-13)
DX: K74.60 Unspecified cirrhosis of liver (principal); I85.11 Secondary esophageal varices with bleeding; R18.8 Other ascites; I50.32 Chronic diastolic (congestive) heart failure; K92.2 Gastrointestinal hemorrhage, unspecified; I48.20 Chronic atrial fibrillation, unspecified; I13.0 Hypertensive heart and chronic kidney disease with heart failure and stage 1 through stage 4 chronic kidney disease, or unspecified chronic kidney disease; K76.6 Portal hypertension; D62 Acute posthemorrhagic anemia; E87.1 Hypo-osmolality and hyponatremia; N17.9 Acute kidney failure, unspecified; N18.4 Chronic kidney disease, stage 4 (severe); H91.93 Unspecified hearing loss, bilateral; Z79.01 Long term (current) use of anticoagulants; Z79.4 Long term (current) use of insulin; Z79.899 Other long term (current) drug therapy; Z88.1 Allergy status to other antibiotic agents; Z88.8 Allergy status to other drugs, medicaments and biological substances; M10.9 Gout, unspecified; E11.22 Type 2 diabetes mellitus with diabetic chronic kidney disease; K21.9 Gastro-esophageal reflux disease without esophagitis; G47.33 Obstructive sleep apnea (adult) (pediatric); K31.819 Angiodysplasia of stomach and duodenum without bleeding; I25.10 Atherosclerotic heart disease of native coronary artery without angina pectoris; K31.89 Other diseases of stomach and duodenum; D69.59 Other secondary thrombocytopenia; I95.9 Hypotension, unspecified; I27.20 Pulmonary hypertension, unspecified; I71.4 Abdominal aortic aneurysm, without rupture; Z85.47 Personal history of malignant neoplasm of testis; Z98.49 Cataract extraction status, unspecified eye; Z86.14 Personal history of Methicillin resistant Staphylococcus aureus infection; Z87.891 Personal history of nicotine dependence; Z20.822 Contact with and (suspected) exposure to COVID-19; Z86.010 Personal history of colon polyps; Z95.0 Presence of cardiac pacemaker; Z95.5 Presence of coronary angioplasty implant and graft

== ENCOUNTER → 2020-05-05 | Outpatient (CLI) | payer MEDICARE, BC, OTHER ==
[~2020-05-05] MED LIST changes: +ALDA25TA2 PO; +ALLO100T PO; +D31000TA2 PO; +MIDO5TA PO; +NOVOINJ3 SC; +PRESCAP PO; +PROT1TAB2 PO; +SODIUM BICARBONATE 8.4% INJ 50MEQ 50 ML VIAL As Ordered ONE; +[UNRECOGNIZED DRUG - OTHER] PO
[2020-05-05 11:21] LABS: BASO % 0.3 % (0.0-1.0); EOS # 0.3 10^3/uL (0.0-0.5); EOS % 1.9 % (0.0-3.0); HEMATOCRIT 24.6 % (42.0-52.0); LYMPH # 1.1 10^3/uL (1.5-5.0); MEAN CORPUSCULAR HEMOGLOBIN 16.1 pg (27.0-33.0); MONO # 1.1 10^3/uL (0.0-0.8); NEUTROPHILS # 10.7 10^3/uL (1.5-8.5); NEUTROPHILS % 81.2 % (36.0-66.0); PLATELET COUNT, AUTOMATED 228 10^3/uL (150-450); RED BLOOD COUNT 3.67 10^6/uL (4.30-6.10); WHITE BLOOD COUNT 13.1 10^3/uL (4.0-10.0)
[2020-05-05 11:25] LABS: HEMOGLOBIN 5.9 g/dl (13.5-17.5)
[2020-05-05 11:29] LABS: INR 1.19; PROTHROMBIN TIME 15.4 SECONDS (12.5-14.3)
[2020-05-05 11:54] LABS: CALCIUM LEVEL 8.4 MG/DL (8.8-10.2); CREATININE FOR GFR 2.03 MG/DL (0.70-1.30); GLOMERULAR FILTRATION RATE 34.3 (>42); POTASSIUM SERUM 4.3 MEQ/L (3.5-5.1)
[2020-05-05 12:22] VITALS: BP 101/54
[2020-05-05 12:42] LABS: SOURCE, BODY FLUID GLUCOSE ASCITES; SOURCE, BODY FLUID TOT PROTEIN ASCITES; TOTAL PROTEIN, BODY FLUID 0.7 G/DL (NOT ESTABLISHED)
--- NOTE | 2020-05-05 17:03 | REP ---
INDICATION: PARACENTESIS The patient has a history of ascites COMPARISON: None. TECHNIQUE: The procedure was performed by ANTHONY Landa, under the direct supervision of Dr. Andino The risks and benefits of the procedure were explained to the patient and an informed consent was obtained both verbally and written. Directly prior to the start of the procedure a formal time-out was completed in the procedure room. The largest pocket of fluid was localized in the right flank using ultrasound guidance. The skin was prepped and draped in a sterile fashion. Eleven ML of buffered lidocaine was used as a local anesthetic. An 8-Telugu multi side-hole catheter was inserted using trocar technique. FINDINGS: 3500 mL of dark yellow ascites was removed in total, 1300 mL was sent to the laboratory for further analysis, and the rest was discarded. The patient tolerated the procedure well and there were no immediate complications. The patient was then taken to the emergency room to address his critically low hematocrit and hemoglobin levels, that was discovered on preprocedural blood work. IMPRESSION: Ultrasound-guided paracentesis with removal of 3500 mL of dark yellow ascites. <Electronically signed by Celestina Ospina > 05/05/20 1522 <Electronically signed by Jason Andino > 05/05/20 [id number]
== END ==
LOC: M IRPRO 10:45
PROVIDERS: ATTEND Physician Assistant
DX: D19.1 Benign neoplasm of mesothelial tissue of peritoneum (principal); K76.1 Chronic passive congestion of liver; J90 Pleural effusion, not elsewhere classified; I27.81 Cor pulmonale (chronic)

== ENCOUNTER → 2020-05-23 | Outpatient (REF) | payer MEDICARE, OTHER ==
[~2020-05-23] MED LIST changes: +ALDA25TA2 PO; +ALLO100T PO; +D31000TA2 PO; +MIDO5TA PO; +NOVOINJ3 SC; +PRESCAP PO; +PROT1TAB2 PO; +[UNRECOGNIZED DRUG - OTHER] PO
[2020-05-23 19:16] LABS: PERCENT SATURATION 16.2 % (19.7-50.0)
== END ==
LOC: M LAB REF 17:10
PROVIDERS: ATTEND Internal Medicine Nephrology
DX: D64.9 Anemia, unspecified (principal)

== ENCOUNTER → 2020-05-25 | Outpatient (CLI) | payer MEDICARE, OTHER ==
[2020-05-25 17:01] LABS: CHOLESTEROL RISK RATIO 3.205 (<5)
[2020-05-25 17:07] LABS: HEMOGLOBIN A1c 5.7 %
[2020-05-25 17:10] LABS: MALB URINE SIEMENS 32.3 MG/L; MAU/CREAT RATIO 31.9 MCG/MG (0.0-30.0)
== END ==
LOC: M WUC 13:16
PROVIDERS: ATTEND Nurse Practitioner Family
DX: E11.9 Type 2 diabetes mellitus without complications (principal)

== ENCOUNTER 2020-06-02 09:46 | Outpatient (CLI) | payer MEDICARE, BC, OTHER ==
[~2020-06-02] VITALS: Ht 188 cm; Wt 116.6 kg
[~2020-06-02 09:46] MED LIST changes: +ALBUTEROL SULFATE 2.5 MG/0.5 ML INH NEB SOLN INH PRN; +EPINEPHrine INJ 1 MG/ML 1ML AMP IM PRN; +diphenhydrAMINE 50MG/ML VIAL (J1200) IV PRN; +methylPREDNISolone 125MG 2ML VIAL IV PRN
[2020-06-02 09:55] VITALS: BP 137/65
[2020-06-02] MEDS ORDERED: NS 1,000 ML IV SCH (10:00)
[2020-06-02] MEDS ORDERED: FERRIC CARBOXYMALTOSE INJ 750 MG, VIAL MATE ADAPTER 1 EACH in NS 250 ML IV ONE (10:00)
[2020-06-02] MEDS ORDERED: diphenhydrAMINE 50MG/ML VIAL (J1200) IV ONE (10:00)
[2020-06-02 11:30] VITALS: BP 122/59
== END 2020-06-02 11:30 | disposition home or self-care (01) ==
LOC: M INFU 09:46
PROVIDERS: ATTEND Internal Medicine Nephrology
DX: D50.9 Iron deficiency anemia, unspecified (principal); Z88.8 Allergy status to other drugs, medicaments and biological substances
CPT/HCPCS: 96365; J1439

== ENCOUNTER 2020-06-09 09:27 | Outpatient (CLI) | payer MEDICARE, BC, OTHER ==
[~2020-06-09] VITALS: Ht 182.9 cm; Wt 116.6 kg
[2020-06-09] MEDS ORDERED: NS 1,000 ML IV SCH (09:30)
[2020-06-09] MEDS ORDERED: FERRIC CARBOXYMALTOSE INJ 750 MG, VIAL MATE ADAPTER 1 EACH in NS 250 ML IV ONE (09:30)
[2020-06-09] MEDS ORDERED: diphenhydrAMINE 50MG/ML VIAL (J1200) IV ONE (09:30)
[2020-06-09 10:10] VITALS: BP 115/53
[2020-06-09 11:33] VITALS: BP 125/57
== END 2020-06-09 11:10 | disposition home or self-care (01) ==
LOC: M INFU 09:27
PROVIDERS: ATTEND Internal Medicine Nephrology
DX: D50.9 Iron deficiency anemia, unspecified (principal); Z88.8 Allergy status to other drugs, medicaments and biological substances
CPT/HCPCS: 96365; J1439

== ENCOUNTER → 2020-07-11 | Outpatient (CLI) | payer MEDICARE, BC, OTHER ==
[~2020-07-11] MED LIST changes: -ALBUTEROL SULFATE 2.5 MG/0.5 ML INH NEB SOLN INH PRN; -EPINEPHrine INJ 1 MG/ML 1ML AMP IM PRN; -diphenhydrAMINE 50MG/ML VIAL (J1200) IV PRN; -methylPREDNISolone 125MG 2ML VIAL IV PRN
[2020-07-11 15:55] VITALS: BP_DIAS 3
--- NOTE | 2020-07-11 16:57 | REP ---
INDICATION: V. COMPARISON: None. TECHNIQUE: The procedure was performed under the direct supervision of Dr. Andino. The risks and benefits of the procedure were explained to the patient and informed consent was obtained. The largest pocket of fluid was localized in the left flank using ultrasound guidance. The skin was prepped and draped in a sterile fashion. 1% lidocaine was used as a local anesthetic. An 8-Faroese multi side-hole catheter was inserted using trocar technique.3700 cc of josé colored fluid was withdrawn and discarded. The patient tolerated the procedure well and there were no immediate complications. After the appropriate amount of monitored convalescence, the patient was discharged from the department. FINDINGS: None IMPRESSION: Ultrasound-guided paracentesis [id number] cc of josé colored fluid. <Electronically signed by Jaden Piedra > 07/11/20 1528 <Electronically signed by Jason Andino > 07/11/20 0235
== END ==
LOC: M IRPRO 14:01
PROVIDERS: ATTEND Internal Medicine Nephrology
DX: R18.8 Other ascites (principal); I50.32 Chronic diastolic (congestive) heart failure; N18.32 Chronic kidney disease, stage 3b
CPT/HCPCS: 49083; 96365; P9047

== ENCOUNTER → 2020-08-05 | Outpatient (CLI) | payer MEDICARE, BC, OTHER ==
[~2020-08-05] MED LIST changes: +PANT40TA29
== END ==
LOC: M LABSMTC 11:17
PROVIDERS: ATTEND Anesthesiology
DX: Z01.812 Encounter for preprocedural laboratory examination (principal); Z20.822 Contact with and (suspected) exposure to COVID-19

== ENCOUNTER → 2020-08-16 | Outpatient (POV) | payer MEDICARE, BC, OTHER ==
[~2020-08-16] VITALS: Ht 188 cm; Wt 112.3 kg
[~2020-08-16] MED LIST changes: +OMEP40CA4 PO; -OMEP40CA97 PO
[2020-08-16 13:44] VITALS: BP 125/64
--- NOTE | 2020-08-18 08:48 | IRCOV ---
[facility] IR Consult Office Visit IR Consult Office Visit DATE: Aug 16, 2020 REASON FOR CONSULTATION/CHIEF COMPLAINT: TIPS evaluation. HISTORY OF PRESENT ILLNESS: 75-year-old male with end-stage liver disease and refractory ascites, requiring paracentesis every 3-6 months. Recently, he was noted to have severe anemia with a hemoglobin of 7, without hematemesis or confirmed melena. He had endoscopy which demonstrated varices with stigmata of bleeding. These were banded. Follow-up EGD demonstrated successful banding of the varices without bleeding. He required 8 units of blood transfusion at the time. Patient does have renal failure but is not yet on dialysis. Patient denies any prior history of hepatic encephalopathy. Patient has nonalcoholic fatty liver disease related cirrhosis. No history of alcoholism, hepatitis or hepatocellular cancer. He has not been evaluated for transplant and does not feel he needs to be, given his age and other comorbidities. He does suffer with coronary artery disease and has had 2 prior MIs. He has atrial atrophic fibrillation and diabetes. He quit smoking 12 years ago. ALLERGIES: Please see below. HOME MEDICATIONS: Please see below. PAST MEDICAL HISTORY: CKD stage III Cirrhosis Varices GI bleed Gout GERD Abdominal aortic aneurysm Testicular cancer Obstructive sleep apnea Atrial fibrillation on Eliquis Diabetes Congestive heart failure coronary artery disease PAST SURGICAL HISTORY: Gallbladder surgery Right testicular surgery Right knee arthroscopy Left knee surgery Venous ablation right leg Cataract removal Variceal banding FAMILY HISTORY: Noncontributory. SOCIAL HISTORY: Quit smoking 12 years ago. Denies alcohol or drugs. REVIEW OF SYSTEMS: Otherwise negative. PHYSICAL EXAMINATION: VITAL SIGNS: Please see below. GENERAL APPEARANCE: Appears well. Comfortable at rest. HEENT: No scleral icterus. RESPIRATORY: Normal breathing at rest. CARDIOVASCULAR: Normal rate. ABDOMEN: Distended. Shifting dullness. Nontender. EXTREMITIES: Bilateral edema to the groin. NEUROLOGICAL: Alert and oriented. PSYCHIATRIC: Appropriate to circumstance. LABORATORY DATA: 05/13/2020 hemoglobin 9.1 hematocrit 34.7 WBC 7.7 platelets 109 total bilirubin 1.9 AST 21 ALT 19 ALP 199 albumin 3 05/16/2020 sodium 141 potassium 5.0 BUN 80 creatinine 2.08 GFR 33.4 hemoglobin A1c 5.7. 05/05/2020 INR 1.26 Ammonia checked in 2017 28 Sodium MELD 18 Last EGD: "Grade II esophageal varices. - Portal hypertensive gastropathy" Echocardiogram in 2017: "Moderate concentric left ventricle hypertrophy with preserved systolic function. Prominently dilated left atrium with current Doppler estimated mean left atrial pressure at least mildly increased. Mildly dilated right heart chambers with Doppler evidence of least moderate pulmonary hypertension." Imaging: I personally reviewed the CT abdomen and pelvis without contrast performed 10/12/2016. Shrunken liver with ascites. Atrophic bilateral kidneys. ASSESSMENT/PLAN: 75-year-old male with heart failure, renal failure and now end- stage liver disease with refractory ascites. At present patient's ascites is medically controlled and he requires paracentesis every 3-6 months. His varices which showed stigmata of bleeding, have been successfully banded. Given patient's congestive heart failure with pulmonary hypertension and renal failure, and hyperbilirubinemia, he is a high-risk candidate for TIPS. The advantages of TIPS would be that, he may not require paracentesis as often as he does and/or would reduce the risk of sudden variceal bleeding at home and . The risks of TIPS would be worsening heart failure, shock liver or worsening renal failure. We discussed all the risks and benefits of the procedure, and at this time patient would like to think about it. If Patient came in with massive variceal bleeding, refractory to endoscopy, we would do an emergency TIPS for lifesaving purposes. However, at this point with all the other risks in mind, and seeing the stability of the patient, the TIPS procedure may be more risky than beneficial. Patient will be followed up in 6 months. I spent 45 minutes reviewing patient's records, imaging and in consultation with the patient. Thank you for this referral. Cc Dr. Azul Norton Allergies Coded Allergies: bumetanide (Verified Allergy, Intermediate, unk, 08/03/20) valsartan (Verified Allergy, Unknown, UNKNOWN REACTION, 08/03/20) Quinolones (Verified Adverse Reaction, Mild, GI UPSET, 08/03/20) atorvastatin (Verified Adverse Reaction, Mild, GI UPSET, 08/03/20) Home Medications Scheduled Allopurinol (Allopurinol), 100 MG PO DAILY, (Reported) Apixaban (Eliquis), 2.5 MG PO BID, (Reported) Ascorbic Acid (Vitamin C), 500 MG PO DAILY, (Reported) Cholecalciferol (Vitamin D3) (Vitamin D3), 2,000 UNITS PO DAILY, (Reported) Colesevelam Hydrochloride (Welchol), 3,750 MG PO QHS, (Reported) Glucosamine/Chondroitin/C/Clay (Glucosamine-Chondroitin Capsul), 1 CAP PO BID, (Reported) Insulin Aspart (Novolog Flexpen), 1 DOSE SC AC, (Reported) Insulin Detemir (Levemir), 40 UNITS SC BID, (Reported) Levothyroxine Sodium (Levothyroxine Sodium), 175 MCG PO QAM, (Reported) Midodrine HCl (Midodrine HCl), 10 MG PO 08,12,16 Multivitamin (Multivitamins), 1 TAB PO DAILY, (Reported) Pantoprazole Sodium (Pantoprazole Sodium), QHS, (Reported) Spironolactone (Aldactone), 25 MG PO BID@09,17 Torsemide (Torsemide), 50 MG PO BID@09,17 Vit A/Vit C/Vit E/Zinc/Copper (Preservision Areds Softgel), 1 CAP PO BID, (Reported) [Previgen Otc], 1 TAB PO DAILY, (Reported) Scheduled PRN Albuterol Sulfate (Proair Hfa), 2 PUFFS INH QID PRN for SHORTNESS OF BREATH, (Reported) VS, I&O, 24H, Fishbone Vital Signs/I&O Vital Signs Date Time Temp Pulse Resp B/P (MAP) Pulse Ox O2 Delivery O2 Flow Rate FiO2 08/16/20 13:44 96.7 87 20 125/64 (84) 99 Room Air ADELA BROWN MD Aug 18, 2020 08:48
== END ==
LOC: M IRPOV 13:16
PROVIDERS: ATTEND Radiology Diagnostic Radiology
DX: K72.90 Hepatic failure, unspecified without coma (principal); R18.8 Other ascites; D64.9 Anemia, unspecified; K76.0 Fatty (change of) liver, not elsewhere classified; K74.60 Unspecified cirrhosis of liver; I25.10 Atherosclerotic heart disease of native coronary artery without angina pectoris; I25.2 Old myocardial infarction; I48.91 Unspecified atrial fibrillation; E11.21 Type 2 diabetes mellitus with diabetic nephropathy; Z87.891 Personal history of nicotine dependence; K21.9 Gastro-esophageal reflux disease without esophagitis; M10.9 Gout, unspecified; I71.4 Abdominal aortic aneurysm, without rupture; Z85.47 Personal history of malignant neoplasm of testis; I50.9 Heart failure, unspecified; Z79.01 Long term (current) use of anticoagulants; G47.33 Obstructive sleep apnea (adult) (pediatric); Z96.1 Presence of intraocular lens; N26.1 Atrophy of kidney (terminal); N19 Unspecified kidney failure; Z88.8 Allergy status to other drugs, medicaments and biological substances; Z79.899 Other long term (current) drug therapy

== ENCOUNTER → 2020-09-05 | Outpatient (REF) | payer MEDICARE, BC, OTHER ==
[~2020-09-05] MED LIST changes: +ACET1TAB55 PO; +ATIV1TAB7 PO; +ATRO1OPD SL; +BISA10SU PR; +CEFD300C41 PO; +CIPR-249 PO; +CIPR500T39 PO; +FLEEENE12 PR; +HYOS125TA PO; +LEVE1INJ5; +MIDO10TA PO; +MIDO5TA; +MORP1SOL SL; +ONDA4TAB6 PO; -PANT40TA29; +SPIR-10; +TRAN1DIS4 TOP; +med rec comment
[2020-09-05 18:19] LABS: PERCENT SATURATION 5.6 % (19.7-50.0)
== END ==
LOC: M LAB REF 17:33
PROVIDERS: ATTEND Internal Medicine Nephrology
DX: D50.9 Iron deficiency anemia, unspecified (principal)

== ENCOUNTER 2020-09-11 06:29 | Emergency (ER) | payer MEDICARE, BC, OTHER ==
[~2020-09-11 06:29] MED LIST changes: -ACET1TAB55 PO; -ATIV1TAB7 PO; -ATRO1OPD SL; -BISA10SU PR; -CEFD300C41 PO; -CIPR-249 PO; -CIPR500T39 PO; -FLEEENE12 PR; -HYOS125TA PO; -LEVE1INJ5; -MIDO10TA PO; -MIDO5TA; -MORP1SOL SL; -ONDA4TAB6 PO; +PANT40TA29; -SPIR-10; -TRAN1DIS4 TOP; -med rec comment
[2020-09-11 08:14] LABS: BASO # 0.1 10^3/uL (0.0-0.2); BASO % 0.6 % (0.0-1.0); EOS # 0.3 10^3/uL (0.0-0.5); EOS % 3.1 % (0.0-3.0); HEMATOCRIT 31.9 % (42.0-52.0); HEMOGLOBIN 9.2 g/dl (13.5-17.5); LYMPH # 0.9 10^3/uL (1.5-5.0); LYMPH % 8.3 % (24.0-44.0); MEAN CORPUSCULAR HEMOGLOBIN 22.3 pg (27.0-33.0); MEAN CORPUSCULAR HGB CONC 28.8 g/dl (32.0-36.5); MEAN CORPUSCULAR VOLUME 77.2 fl (80.0-96.0); NEUTROPHILS # 8.3 10^3/uL (1.5-8.5); NEUTROPHILS % 78.6 % (36.0-66.0); PLATELET COUNT, AUTOMATED 199 10^3/uL (150-450); RED BLOOD COUNT 4.13 10^6/uL (4.30-6.10); WHITE BLOOD COUNT 10.5 10^3/uL (4.0-10.0)
[2020-09-11 08:25] LABS: INR 1.27; PROTHROMBIN TIME 16.2 SECONDS (12.5-14.3)
[2020-09-11 08:38] LABS: ALBUMIN 2.9 GM/DL (3.2-5.2); BILIRUBIN,DIRECT 0.5 MG/DL (0.0-0.2); BILIRUBIN,TOTAL 1.6 MG/DL (0.2-1.0); CALCIUM LEVEL 8.9 MG/DL (8.8-10.2); CREATININE FOR GFR 1.95 MG/DL (0.70-1.30); GLOMERULAR FILTRATION RATE 35.9 (>42); POTASSIUM SERUM 4.2 MEQ/L (3.5-5.1); TOTAL PROTEIN 5.6 GM/DL (6.4-8.2)
[2020-09-11 09:14] LABS: CK-MB VALUE MASS 2.1 NG/ML (<3.6); MB/CK RELATIVE INDEX 3.23 (< OR =4); TROPONIN I 0.02 NG/ML (< 0.10)
--- NOTE | 2020-09-11 10:58 | REP ---
INDICATION: CHEST PAIN. COMPARISON: 05/13/2020, 01/30/2019 TECHNIQUE: AP portable seated FINDINGS: Exam is somewhat lordotic in projection limiting evaluation of the posterior lower lung zones. A single lead pacer over the left upper chest with lead terminating in the right ventricle. Heart is not grossly enlarged. The aorta is mildly tortuous with calcifications at the arch but unchanged. Airway intact. No widening of the mediastinum. I see no infiltrate. Some basilar fibrotic changes are noted bilaterally. No gross effusion, the previous bilateral effusions not visible on this exam. No whitney edema. No pneumothorax. Some degenerative changes in the shoulders. No free air under the diaphragm. IMPRESSION: 1. Single lead pacer unchanged with no gross cardiomegaly pulmonary edema or visible effusion. 2. Some basilar fibrotic changes without dense consolidation, visible mass or other new/acute finding. <Electronically signed by Fernandez Jimenez > 09/11/20 105
[2020-09-11 12:53] LABS: CK-MB VALUE MASS 2.1 NG/ML (<3.6); MB/CK RELATIVE INDEX 4.38 (< OR =4); TROPONIN I 0.03 NG/ML (< 0.10)
[2020-09-11 13:49] VITALS: BP 106/57
--- NOTE | 2020-09-11 22:08 | ECGEPIP ---
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
--- NOTE | 2020-09-11 22:13 | ECGEPIP ---
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
== END 2020-09-11 15:08 | disposition home or self-care (01) ==
LOC: M ED 06:29
DX: R07.89 Other chest pain (principal); E11.9 Type 2 diabetes mellitus without complications; I50.9 Heart failure, unspecified; N18.30 Chronic kidney disease, stage 3 unspecified; I48.91 Unspecified atrial fibrillation; G47.33 Obstructive sleep apnea (adult) (pediatric); I71.4 Abdominal aortic aneurysm, without rupture; Z79.899 Other long term (current) drug therapy; Z79.890 Hormone replacement therapy; Z79.4 Long term (current) use of insulin; Z79.01 Long term (current) use of anticoagulants; Z88.1 Allergy status to other antibiotic agents; Z88.8 Allergy status to other drugs, medicaments and biological substances; Z87.891 Personal history of nicotine dependence

== ENCOUNTER → 2020-09-15 | Outpatient (CLI) | payer MEDICARE, BC, OTHER ==
[2020-09-15 14:53] VITALS: BP 110/59
--- NOTE | 2020-09-15 16:52 | REP ---
INDICATION: ASCITES, CIRRHOSIS, CKD STAGE 3B. COMPARISON: None. TECHNIQUE: The procedure was performed under the direct supervision of Dr. Andino. The risks and benefits of the procedure were explained to the patient and informed consent was obtained. The largest pocket of fluid was localized in the right lower quadrant using ultrasound guidance. The skin was prepped and draped in a sterile fashion. 4 mL of 1% lidocaine was used as a local anesthetic. An 8-Arabic multi side-hole catheter was inserted using trocar technique.5500 cc of josé colored fluid was withdrawn and discarded. Estimated blood loss: Less than 1 mL The patient tolerated the procedure well and there were no immediate complications. After the appropriate amount of monitored convalescence, the patient was discharged from the department. FINDINGS: None IMPRESSION: Ultrasound-guided paracentesis [id number] mL of josé colored fluid. <Electronically signed by Jaden Piedra > 09/15/20 3150 <Electronically signed by Jason Andino > 09/15/20 [id number]
== END ==
LOC: M IRPRO 13:49
PROVIDERS: ATTEND Internal Medicine Nephrology
DX: R18.8 Other ascites (principal); K74.69 Other cirrhosis of liver; N18.32 Chronic kidney disease, stage 3b

== ENCOUNTER → 2020-09-15 | Outpatient (CLI) | payer MEDICARE, BC, OTHER ==
[2020-09-15 15:49] LABS: HEMOGLOBIN A1c 6.8 %
[2020-09-15 16:08] LABS: FREE T4 1.37 NG/DL (0.76-1.46); THYROID STIMULATING HORMONE 1.48 uIU/ML (0.358-3.740)
== END ==
LOC: M LAB 14:17
PROVIDERS: ATTEND Nurse Practitioner Family
DX: R18.8 Other ascites (principal); K74.69 Other cirrhosis of liver; N18.32 Chronic kidney disease, stage 3b; E03.9 Hypothyroidism, unspecified
CPT/HCPCS: 36415; 49083; 83036; 84439; 84443; 96365; P9047

== ENCOUNTER 2020-09-21 14:00 | Outpatient (CLI) | payer MEDICARE, BC, OTHER ==
[~2020-09-21] VITALS: Ht 188 cm; Wt 112.4 kg
[2020-09-21 14:00] VITALS: BP 114/69
[~2020-09-21 14:00] MED LIST changes: +ALBUTEROL SULFATE 2.5 MG/0.5 ML INH NEB SOLN INH PRN; +EPINEPHrine INJ 1 MG/ML 1ML AMP IM PRN; +FERRIC CARBOXYMALTOSE INJ 750 MG, VIAL MATE ADAPTER 1 EACH in NS 250 ML IV ONE; +NS 1,000 ML IV SCH; +diphenhydrAMINE 50MG/ML VIAL (J1200) IV ONE; +diphenhydrAMINE 50MG/ML VIAL (J1200) IV PRN; +methylPREDNISolone 125MG 2ML VIAL IV PRN
[2020-09-21 15:00] VITALS: BP 109/64
[2020-09-21 15:41] VITALS: BP 113/68
== END 2020-09-21 15:45 | disposition home or self-care (01) ==
LOC: M INFU 14:00
PROVIDERS: ATTEND Internal Medicine Nephrology
DX: D50.9 Iron deficiency anemia, unspecified (principal); Z88.1 Allergy status to other antibiotic agents
CPT/HCPCS: 96365; J1439

== ENCOUNTER 2020-09-24 20:37 | Inpatient (IN) | payer MEDICARE, BC, OTHER ==
[~2020-09-24] VITALS: Ht 188 cm; Wt 105.6 kg
[~2020-09-24 20:37] MED LIST changes: -ALBUTEROL SULFATE 2.5 MG/0.5 ML INH NEB SOLN INH PRN; -EPINEPHrine INJ 1 MG/ML 1ML AMP IM PRN; -FERRIC CARBOXYMALTOSE INJ 750 MG, VIAL MATE ADAPTER 1 EACH in NS 250 ML IV ONE; -NS 1,000 ML IV SCH; -PANT40TA29; -diphenhydrAMINE 50MG/ML VIAL (J1200) IV ONE; -diphenhydrAMINE 50MG/ML VIAL (J1200) IV PRN; -methylPREDNISolone 125MG 2ML VIAL IV PRN
[2020-09-24] MEDS: DOCUSATE SODIUM 100MG CAPSULE PO SCH (21:00)
[2020-09-24] MEDS ORDERED: MORPHINE 4 MG/ML 1ML VIAL/SYRINGE (J2270) IV ONE (22:10)
[2020-09-24] MEDS ORDERED: fentaNYL 100 MCG/2 ML INJECTION (J3010) IV ONE (23:05)
[2020-09-24] MEDS ORDERED: NS 1,000 ML IV ONE (23:05)
[2020-09-24 23:15] LABS: BASO % 0.2 % (0.0-1.0); EOS % 0.1 % (0.0-3.0); HEMATOCRIT 34.6 % (42.0-52.0); HEMOGLOBIN 9.7 g/dl (13.5-17.5); LYMPH # 0.4 10^3/uL (1.5-5.0); LYMPH % 1.9 % (24.0-44.0); MEAN CORPUSCULAR HEMOGLOBIN 21.9 pg (27.0-33.0); MEAN CORPUSCULAR VOLUME 78.3 fl (80.0-96.0); MONO # 0.7 10^3/uL (0.0-0.8); MONO % 3.4 % (2.0-8.0); NEUTROPHILS # 18.7 10^3/uL (1.5-8.5); PLATELET COUNT, AUTOMATED 264 10^3/uL (150-450); RED BLOOD COUNT 4.42 10^6/uL (4.30-6.10); WHITE BLOOD COUNT 19.8 10^3/uL (4.0-10.0)
--- NOTE | 2020-09-24 23:27 | REPVR ---
PROCEDURE INFORMATION: Exam: XR Chest Exam date and time: 09/24/2020 10:21 PM Age: 75 years old Clinical indication: Other: Assess for air under diaphragm; Additional info: Assess for air under diaphragm, please take upright TECHNIQUE: Imaging protocol: XR of the chest. Views: 1 view. COMPARISON: DE PORTABLE CHEST X-RAY 09/11/2020 7:32 AM FINDINGS: Tubes, catheters and devices: Pacemaker in expected location. Lungs: Dependent atelectasis. Upper lung zones are clear. Pleural spaces: No pleural effusion. No pneumothorax. Heart/Mediastinum: Unremarkable. No cardiomegaly. Bones/joints: Unremarkable. Intraperitoneal space: No pneumoperitoneum. IMPRESSION: Mild dependent atelectasis. No acute findings. Electronically signed by: López Pickering On 09/24/2020 23:26:43 PM
--- NOTE | 2020-09-24 23:39 | REPVR ---
PROCEDURE INFORMATION: Exam: CT Abdomen And Pelvis Without Contrast Exam date and time: 09/24/2020 10:37 PM Age: 75 years old Clinical indication: Abdominal pain; Acute; Additional info: Acute abdominal pain, nausea TECHNIQUE: Imaging protocol: Computed tomography of the abdomen and pelvis without contrast. Radiation optimization: All CT scans at this facility use at least one of these dose optimization techniques: automated exposure control; mA and/or kV adjustment per patient size (includes targeted exams where dose is matched to clinical indication); or iterative reconstruction. COMPARISON: CT ABD PELVIS W/O CONTRAST 10/12/2016 1:52 PM FINDINGS: Lungs: Dependent airspace opacities in the lung bases. Liver: Unremarkable. No mass. Gallbladder and bile ducts: There has been prior cholecystectomy. No biliary duct dilation. Pancreas: Normal. No ductal dilation. Spleen: Spleen is enlarged measuring approximately 18 cm. Adrenal glands: Normal. No mass. Kidneys and ureters: Kidneys are atrophic. There are multiple cysts of varying complexity in both kidneys, measuring up to 6.6 cm. Stomach and bowel: There is wall thickening in the transverse colon. Colon is nondilated. Small bowel is nondilated. Colon no bowel obstruction. Appendix: No evidence of appendicitis. Intraperitoneal space: Large volume of ascites in the abdomen and pelvis. No pneumoperitoneum. Mesenteric and omental edema. Vasculature: Unremarkable. No abdominal aortic aneurysm. Lymph nodes: Unremarkable. No enlarged lymph nodes. Urinary bladder: Urinary bladder is nondistended. Mild urinary bladder wall thickening. There is a nodular area of wall thickening in the left urinary bladder base measuring approximately 10 mm (image 150, series 201) with an adjacent 4 mm calcification. Possible 2nd area of wall thickening in the left lateral bladder base measuring 7 mm (image 155, series 201). Reproductive: Unremarkable as visualized. Bones/joints: There are advanced degenerative changes in the spine and pelvis. Chronic appearing of compression fractures of the L1-L4 vertebrae. Soft tissues: Unremarkable. IMPRESSION: 1. Nodular wall thickening with calcification in the urinary bladder base concerning for bladder neoplasm. Consider follow-up cystoscopy or CT urogram. 2. Large volume of abdominal and pelvic ascites. No free air or drainable abscess. 3. Nonspecific wall thickening in the transverse colon. Possible colitis or artifact related to nondistention. Consider follow-up endoscopy to exclude underlying colonic lesion. No bowel obstruction. 4. Splenomegaly. COMMENTS: Consistent with the [employer]'s Incidental Findings Committee white paper (J Am Saman Radiol 2018): Any incidental renal lesion less than 1 cm or classified as too small to characterize, or any incidental cystic renal lesion characterized as simple-appearing, is likely benign. No follow-up imaging is recommended for these lesions per consensus recommendations based on imaging criteria. Electronically signed by: López Pickering On 09/24/2020 23:39:22 PM
[2020-09-24 23:52] LABS: BILIRUBIN,DIRECT 0.9 MG/DL (0.0-0.2); BILIRUBIN,TOTAL 2.4 MG/DL (0.2-1.0); CK-MB VALUE MASS 3.2 NG/ML (<3.6); MB/CK RELATIVE INDEX 3.48 (< OR =4); TOTAL PROTEIN 5.6 GM/DL (6.4-8.2); TROPONIN I 0.02 NG/ML (< 0.10)
--- NOTE | 2020-09-24 23:54 | HPEPDOC ---
[facility] Medical History & Physical Date of Admission Sep 24, 2020 Date of Service: Sep 24, 2020 History and Physical CHIEF COMPLAINT: Abdominal pain HISTORY OF PRESENT ILLNESS: 75-year-old male with an extensive medical history including nonalcoholic liver cirrhosis, esophageal varices with banding, chronic kidney disease, AAA, atrial fibrillation on eliquis, insulin-dependent diabetes, congestive heart failure, coronary disease. He presents for sudden onset diffuse abdominal pain which started today around 4 PM and has been constant since then he rates the pain as 10 out of 10 it is diffuse described as stabbing and aching. It is alleviated when he lies on his left side but any other movement or coughing makes it worse. In the emergency department he had an elevated lactic acidosis of 5.1 his leukocytosis was 19.8. He is afebrile and denies any fevers or chills. He also denies any chest pain or shortness of breath. He states earlier in the day he was having nausea and vomited but currently he has no nausea. Patient was suspected to have spontaneous bacterial peritonitis also CT imaging showed large volume abdominal and pelvic ascites. He was started on ceftriaxone. In the emergency department a diagnostic paracentesis was performed and fluid analysis pending. Patient was admitted to medical service for further medical evaluation and management. PAST MEDICAL/SURGICAL HISTORY: Nonalcoholic liver cirrhosis Esophageal varices with banding Chronic kidney disease stage III Hypothyroidism History of gout GERD AAA History of testicular cancer with right orchiectomy PINKY Atrial fibrillation on eliquis Insulin-dependent diabetes mellitus Congestive heart failure Coronary artery disease Cholecystectomy Right knee arthroplasty Left knee surgery Cataract removal SOCIAL HISTORY: Denies alcohol use Denies tobacco use currently states he quit about 10 years ago and prior to that smoked for 50 years Denies illicit drug use FAMILY HISTORY: Reviewed and none contributory to this admission ALLERGIES: Please see below. REVIEW OF SYSTEMS: 10 point review of systems complete all negative otherwise stated in HPI HOME MEDICATIONS: Please see below. PHYSICAL EXAMINATION: Constitutional: Awake and alert, in moderate distress from the abdominal pain ENT: Sclera are clear. Mucosa is moist. Respiratory: Lungs CTA bilaterally. No respiratory distress. Cardiovascular: Irregular heart rate Gastrointestinal: Abdomen is soft, diffusely distended, severe diffuse abdominal tenderness, BS present. Positive fluid wave. Musculoskeletal: lower extremity edema compression stockings in place Neurologic: No focal neurological deficit. Mental Status: A&O x3, normal affect LABORATORY DATA: See below. IMAGING: CT abdomen/pelvis IMPRESSION: 1. Nodular wall thickening with calcification in the urinary bladder base concerning for bladder neoplasm. Consider follow-up cystoscopy or CT urogram. 2. Large volume of abdominal and pelvic ascites. No free air or drainable abscess. 3. Nonspecific wall thickening in the transverse colon. Possible colitis or artifact related to nondistention. Consider follow-up endoscopy to exclude underlying colonic lesion. No bowel obstruction. 4. Splenomegaly. MICROBIOLOGY: Please see below. ASSESSMENT/PLAN 75-year-old male with an extensive medical history including nonalcoholic liver cirrhosis, esophageal varices with banding, chronic kidney disease, AAA, atrial fibrillation on eliquis, insulin-dependent diabetes, congestive heart failure, coronary disease. He presents for sudden onset diffuse abdominal pain suspected to have SBP. Paracentesis performed in the ED fluid sent for analysis and patient was admitted for further medical workup and evaluation he was started on IV ceftriaxone. # Speculated spontaneous bacterial peritonitis: Diagnostic paracentesis performed in the ED. Await fluid analysis results. CT abdomen showing large volume of abdominal/pelvic ascites which may need a therapeutic paracentesis with INR on Saturday. Afebrile, leukocytosis 19.8 on admit. Started IV ceftriaxone. Fu BCx. # calcification in the urinary bladder base: Seen on CT. per radiologist concerning for neoplasm and recommended cystoscopy or CT urogram. Consult urology in the morning. # Lactic acidosis: 5.1 in the ED. Trend lactic acid. Likely from the SBP. IV ceftriaxone. # Atrial fibrillation: Continue eliquis for anti-coagulation. # Microcytic anemia: Hemoglobin 9.7 on admission. Monitor. # DM: ISS. Frequent Accu-Cheks. Hypoglycemic precautions. Takes 40 units of Levemir twice a day which was continued. # Coronary artery disease: Continue home medications # Congestive heart failure: Continue home torsemide and spironolactone # Hypothyroidism: resume Synthroid. # Obesity: BMI 30.4. Complicating care. # Gout: Continue allopurinol # Chronic hypotension: Continue home midodrine. # DVT prophylaxis: Kristyn Eugene Yousef Hospitalist Vital Signs Vital Signs Date Time Temp Pulse Resp B/P (MAP) Pulse Ox O2 Delivery O2 Flow Rate FiO2 09/24/20 23:30 20 98 Room Air 09/24/20 23:22 82 82/47 (59) 09/24/20 20:56 98.4 Laboratory Data Labs 24H Laboratory Tests 2 09/24/20 22:59: Immature Granulocyte % (Auto) 0.4, Neutrophils (%) (Auto) 94.0H, Lymphocytes (%) (Auto) 1.9L, Monocytes (%) (Auto) 3.4, Eosinophils (%) (Auto) 0.1, Basophils (%) (Auto) 0.2, Neutrophils # (Auto) 18.7H, Lymphocytes # (Auto) 0.4L, Monocytes # (Auto) 0.7, Eosinophils # (Auto) 0.0, Basophils # (Auto) 0.0, Nucleated Red Blood Cells % (auto) 0.0, Lactic Acid Level 5.1*H, Total Bilirubin 2.4H, Direct Bilirubin 0.9H, Aspartate Amino Transf (AST/SGOT) 39H, Alanine Aminotransferase (ALT/SGPT) 25, Alkaline Phosphatase 245H, Total Creatine Kinase 92, Creatine Kinase MB 3.2, Creatine Kinase MB Relative Index 3.48, Troponin I 0.02, Total Protein 5.6L, Albumin 3.0L, Albumin/Globulin Ratio 1.2, Lipase 113 09/24/20 23:06: POC Glucose (Misc Panel) 123H, POC Sodium (Misc Panel) 141, POC Potassium (Misc Panel) 4.8, POC Chloride (Misc Panel) 106, POC Total CO2 (Misc Panel) 21.0L, POC Blood Urea Nitrogen (Misc Panel 59H, POC Ionized Calcium (Misc Panel) 4.5, POC Creatinine (Misc Panel) 2.4H, POC Hematocrit (Misc Panel) 36.0L CBC/BMP Laboratory Tests 09/24/20 22:59 Microbiology Microbiology 09/24/20 Blood Culture, Received Pending Home Medications Scheduled Allopurinol (Allopurinol) 100 Mg Tablet, 100 MG PO DAILY Apixaban (Eliquis) 2.5 Mg Tablet, 2.5 MG PO BID Ascorbic Acid (Vitamin C) 500 Mg Tablet, 1,000 MG PO DAILY TAKES AT NOON Cholecalciferol (Vitamin D3) (Vitamin D3) 1,000 Unit Tablet, 2,000 UNITS PO DAILY TAKES AT NOON Colesevelam Hydrochloride (Welchol) 625 Mg Tablet, 3,750 MG PO QHS Glucosamine/Chondroitin/C/Clay (Glucosamine-Chondroitin Capsul) 1 Cap Cap, 1 CAP PO BID Insulin Aspart (Novolog Flexpen) 100 Unit/1 Ml Insuln.pen, 1 DOSE SC AC PER SLIDING SCALE Insulin Detemir (Levemir) 1 Units/0.01 Ml Susp, 40 UNITS SC BID Levothyroxine Sodium (Levothyroxine Sodium) 175 Mcg Tab, 175 MCG PO QAM Midodrine HCl (Midodrine HCl) 5 Mg Tablet, 5 MG PO TID Multivitamin (Multivitamins) 1 Each Tablet, 1 TAB PO DAILY TAKES AT NOON Pantoprazole Sodium (Pantoprazole Sodium) 40 Mg Tablet.dr, 40 MG PO DAILY Spironolactone (Aldactone) 25 Mg Tablet, 25 MG PO BID@, Torsemide (Torsemide) 100 Mg Tablet, 50 MG PO BID@,17 Vit A/Vit C/Vit E/Zinc/Copper (Preservision Areds Softgel) 1 Each Capsule, 1 CAP PO BID [Previgen Otc] , 1 TAB PO DAILY Scheduled PRN Albuterol Sulfate (Proair Hfa) 108 Mcg/Act Aer, 2 PUFFS INH QID PRN for SHORTNESS OF BREATH Miscellaneous Medications [med rec comment] unable to speak with patient,used external med history and last office visit from 09/13/20 Allergies Coded Allergies: bumetanide (Verified Allergy, Unknown, UNKNOWN, 09/24/20) valsartan (Verified Allergy, Unknown, UNKNOWN REACTION, 09/24/20) Quinolones (Verified Adverse Reaction, Mild, GI UPSET, 09/24/20) atorvastatin (Verified Adverse Reaction, Mild, GI UPSET, 09/24/20) ciprofloxacin (Verified Adverse Reaction, Mild, nausea and vomiting, 09/24/20) NAVIN PLATA MD Sep 24, 2020 23:53
[2020-09-25] VITALS (19 sets, daily range): BP systolic 60–98; BP diastolic 30–60
[2020-09-25] MEDS ORDERED: ACETAMINOPHEN TAB 650MG DOSE (2X325MG) PO PRN
[2020-09-25] MEDS ORDERED: MOM 30ML SUSPENSION UDC PO PRN
[2020-09-25] MEDS ORDERED: MIDO5TA PO (00:40)
[2020-09-25] MEDS ORDERED: ONDANSETRON 4MG/2ML VIAL IV ONE (00:40)
[2020-09-25] MEDS ORDERED: med rec comment (00:54)
[2020-09-25] MEDS ORDERED: HOME MED LIST COMPLETE! XX SCH (01:00)
[2020-09-25] MEDS ORDERED: cefTRIAXone SOD 2 GM in D5W MINI-BAG PLUS 50 ML IV SCH (01:00)
[2020-09-25] MEDS ORDERED: MIDODRINE 5 MG TAB PO ONE (01:10)
[2020-09-25 01:44] LABS: RSV AMPLIFICATION NEGATIVE (NEGATIVE)
[2020-09-25] MEDS ORDERED: DEXTROSE 50% 50 ML SYRINGE IV PRN (02:50)
[2020-09-25] MEDS ORDERED: ALBUTEROL 90 MCG/ACT 8GM HFA INHALER INH PRN (02:50)
[2020-09-25] MEDS ORDERED: GLUCAGON INJ 1MG VIAL SC PRN (02:50)
[2020-09-25] MEDS ORDERED: GLUCOSE 4GM CHEW TABLET PO PRN (02:50)
[2020-09-25 03:52] LABS: APPEARANCE, BODY FLUID CLOUDY (CLEAR); ASCITES FL COLOR YELLOW (COLORLESS); SOURCE, BODY FLUID ASCITES
[2020-09-25] MEDS: LEVOTHYROXINE 150MCG TABLET (0.15MG) PO SCH (05:32)
[2020-09-25 07:20] LABS: HEMATOCRIT 29.7 % (42.0-52.0); HEMOGLOBIN 8.4 g/dl (13.5-17.5); MEAN CORPUSCULAR HGB CONC 28.3 g/dl (32.0-36.5); PLATELET COUNT, AUTOMATED 190 10^3/uL (150-450); RED BLOOD COUNT 3.81 10^6/uL (4.30-6.10); WHITE BLOOD COUNT 13.8 10^3/uL (4.0-10.0)
[2020-09-25] MEDS: MIDODRINE 5 MG TAB PO SCH ×3 (07:28→15:54)
[2020-09-25 07:42] LABS: ALBUMIN 2.5 GM/DL (3.2-5.2); BILIRUBIN,TOTAL 1.8 MG/DL (0.2-1.0); CALCIUM LEVEL 8.3 MG/DL (8.8-10.2); CREATININE FOR GFR 2.56 MG/DL (0.70-1.30); GLOMERULAR FILTRATION RATE 26.2 (>42); MAGNESIUM LEVEL 2.5 MG/DL (1.8-2.4); POTASSIUM SERUM 5.5 MEQ/L (3.5-5.1); TOTAL PROTEIN 4.5 GM/DL (6.4-8.2)
[2020-09-25] MEDS ORDERED: MIDODRINE 5 MG TAB PO SCH (08:00)
[2020-09-25] MEDS: LEVEMIR (INSULIN DETEMIR) 1 UNITS/0.01ML SC SCH ×2 (08:58→21:33)
[2020-09-25] MEDS: TORSEMIDE (DEMADEX) 50 MG PER 1/2 TAB PO SCH ×2 (08:59→16:40)
[2020-09-25] MEDS: SPIRONOLACTONE 25 MG TAB PO SCH ×2 (08:59→16:40)
[2020-09-25] MEDS ORDERED: LEVEMIR (INSULIN DETEMIR) 1 UNITS/0.01ML SC ONE (09:00)
[2020-09-25] MEDS ORDERED: HEPARIN SOD (PORCINE) 5000UNITS/ML 1ML VIAL/SYRINGE SC SCH (09:00)
[2020-09-25] MEDS: DOCUSATE SODIUM 100MG CAPSULE PO SCH ×2 (09:00→21:00)
[2020-09-25] MEDS: allopurinoL 100 MG TAB PO SCH (09:11)
[2020-09-25] MEDS: APIXABAN 2.5 MG TAB (ELIQUIS) PO SCH ×2 (09:11→21:34)
[2020-09-25] MEDS: HumaLOG INSULIN (NovoLOG) PER UNIT SC SCH ×4 (09:11→21:00)
[2020-09-25] MEDS: PANTOPRAZOLE 40MG TAB (PROTONIX) PO SCH (09:11)
[2020-09-25] MEDS ORDERED: NS 500 ML IV ONE (10:40)
[2020-09-25] MEDS ORDERED: CEFOTAXIME SOD 2 GM in D5W MINI-BAG PLUS 50 ML IV SCH (11:00)
--- NOTE | 2020-09-25 11:20 | IPNPDOC ---
Subjective Date Seen The patient was seen on 09/25/20. Subjective Chief Complaint/HPI Mr. Bassett reports that his abdominal pain has gone from "a 23 down to a 12 out of 10"; he is still quite tender but it is improving. When asked where exactly the abdominal pain is he gives a description that basically is his entire abdomen. Nursing is concerned about his low blood pressures. I know his blood pressures typically run low from having reviewed a previous admission record. However, I think he will benefit from an albumin infusion as is often standard in treatment for spontaneous bacterial peritonitis. I obtained his consent for this and we discussed the possibility that he may need packed red blood cells in the future. His consent is intended to cover both of these products. Constitutional: Denies: Chills, Fever Skin: Denies: Rash, Lesions Pulmonary: Reports: Dyspnea (Was worse when his pain was worse, but now is improving); Denies: Cough Cardiovascular: Denies: Chest Pain, Palpitations Gastrointestinal: Reports: Abdominal Pain; Denies: Melena, Hematochezia Hematologic: Denies: Bruising, Bleeding Excessively Psych: Reports: Mood Normal; Denies: Memory Issues Objective Physical Examination General Exam: Positive: Alert, Cooperative (Laying on his left side in bed when I entered the room. Talking to the nursing assistants.), No Acute Distress Eye Exam: Positive: Conjunctiva & lids normal; Negative: Sclera icteric ENT Exam: Positive: Atraumatic, Mucous membr. moist/pink Neck Exam: Positive: Supple; Negative: Lymphadenopathy Chest Exam: Positive: Clear to auscultation, Diminished (Probably from splinting secondary to abdominal pain) Heart Exam: Positive: Rate Normal, Irregular Rhythm, Normal S1, Normal S2; Negative: Murmurs Telemetry: Positive: No significant arrhythmia Abdomen Exam: Positive: BS Hypoactive, Soft, Tenderness (Exquisitely tender on palpation and with rebound) Extremity Exam: Negative: Edema Psych Exam: Positive: Mood NL, Oriented x 3 Assessment /Plan Problems (1) Spontaneous bacterial peritonitis Status: Acute Problem Text: He has ascites, his abdomen is exquisitely tender, and he has a white cell count of over 39,000 in the ascitic fluid. Culture is still pending. He certainly meets criteria for empiric treatment for spontaneous bacterial peritonitis. He received a dose of 2 g of ceftriaxone around admission. Cefotaxime has better penetration into ascitic fluid, therefore I am changing him to cefotaxime. I am also going to infuse albumin at 0.75 g/kg this should h elp with the abdominal ascites fluid management as well as his acute on chronic hypotension (possibly sepsis related) that seems to currently be threatening hypoperfusion of most of his vital organs. (This is half of the recommended dose per protocol, but as he is a heavier man, it equals 6 bags of albumin. I will reassess after that infusion and order the other half if still clinically indicated.) (2) Sepsis Status: Acute Discussed With: Nurse, Patient Problem Specific Plan: Monitor Clinically Problem Text: He certainly meets criteria for sepsis related to his spontaneous bacterial peritonitis. We have been cautious with fluid resuscitation because of the large amount of ascites he already has. I am going to attempt to accomplish similar fluid shifts in his body with a large albumin infusion. He is on empiric antibiotics and blood cultures are pending. (3) Hypotension, chronic Status: Chronic Problem Text: He has chronic hypotension and is on midodrine. This certainly is not making the acute hypotension from his sepsis and spontaneous bacterial peritonitis and easier to manage. He will continue to receive his midodrine. We will hold medications that might have a hypotensive effect while we are infusing the albumin which I hope will help revascularize some of the ascitic fluid. (4) Urinary bladder disorder Problem Text: He has what appears to be a new calcification in his bladder wall by CT. I have asked urology to evaluate and treat. Appreciate their input. (5) Anemia Problem Text: His hemoglobin is dropped to 8.4 today. Some of this may be related to fluid shifts. He does not seem to be symptomatic at this point in time. I have already ordered an albumin transfusion that I think will help revascularize some fluid. Unfortunately this may also further hemodilute his red blood cells. It is also possible he is bleeding from bladder mass. We will need to monitor this carefully. (6) Afib Status: Chronic Response to Treatment: Controlled Problem Text: He is currently anticoagulated with Eliquis. If he needs a procedure this may need to be held or bridged. (7) CHF (congestive heart failure) Status: Chronic Problem Text: His congestive heart failure is currently reasonably controlled, however, I suspect that his vascular volume is low right now. Will need to be very cautious with his heart failure as we revascularize the ascitic fluid. (8) Diabetes Status: Chronic Problem Text: He has a longstanding history of diabetes. We will continue basal insulin and insulin sliding scale while he is here in the hospital. (9) CAD (coronary artery disease) Status: Chronic Problem Text: He has a known history of coronary artery disease. He is currently asymptomatic. We will continue to monitor. (10) Hypothyroid Status: Chronic Problem Text: Continue his current dose of Synthroid. (11) PINKY (obstructive sleep apnea) Status: Chronic Problem Text: He does not seem to have a CPAP or BiPAP with him. He should be sleeping with these on. I will have nursing clarify whether he has them at home and needs them here or whether we should try to get his settings and have our respiratory therapist set him up. Regardless if he has obstructive sleep apnea, and some difficulty breathing related to a large volume of abdominal ascites we certainly need to make sure he has all the respiratory support he needs. (12) CKD (chronic kidney disease) Status: Chronic Problem Text: His creatinine is currently 2.5 which is roughly 0.5 over his baseline. I think this will improve his remove fluid from his abdomen into the vascular space again. We will need to monitor carefully. I have ordered a repeat CMP for roughly 6 hours after the previous. (13) Gout Status: Chronic Problem Text: Continue his allopurinol. (14) Obesity (BMI 30.0-34.9) Problem Text: His obesity certainly complicates many of the clinical conditions that are acutely exacerbated at this point in time and make his overall prognosis more difficult to gauge. Plan/VTE VTE Prophylaxis Ordered?: Yes (TEDS, tammies, Kristyn) VS, I&O, 24H, Fishbone Vital Signs/I&O Vital Signs Date Time Temp Pulse Resp B/P (MAP) Pulse Ox O2 Delivery O2 Flow Rate FiO2 09/25/20 08:00 97.9 91 16 78/30 (46) 70 Room Air I&O- Last 24 Hours up to 6 AM 09/25/20 05:59 Intake Total 50 ml Balance 50 ml Laboratory Data 24H LABS Laboratory Tests 2 09/24/20 22:59: Immature Granulocyte % (Auto) 0.4, Neutrophils (%) (Auto) 94.0H, Lymphocytes (%) (Auto) 1.9L, Monocytes (%) (Auto) 3.4, Eosinophils (%) (Auto) 0.1, Basophils (%) (Auto) 0.2, Neutrophils # (Auto) 18.7H, Lymphocytes # (Auto) 0.4L, Monocytes # (Auto) 0.7, Eosinophils # (Auto) 0.0, Basophils # (Auto) 0.0, Nucleated Red Blood Cells % (auto) 0.0, Lactic Acid Level 5.1*H, Total Bilirubin 2.4H, Direct Bilirubin 0.9H, Aspartate Amino Transf (AST/SGOT) 39H, Alanine Aminotransferase (ALT/SGPT) 25, Alkaline Phosphatase 245H, Total Creatine Kinase 92, Creatine Kinase MB 3.2, Creatine Kinase MB Relative Index 3.48, Troponin I 0.02, Total Protein 5.6L, Albumin 3.0L, Albumin/Globulin Ratio 1.2, Lipase 113 09/24/20 23:06: POC Glucose (Misc Panel) 123H, POC Sodium (Misc Panel) 141, POC Potassium (Misc Panel) 4.8, POC Chloride (Misc Panel) 106, POC Total CO2 (Misc Panel) 21.0L, POC Blood Urea Nitrogen (Misc Panel 59H, POC Ionized Calcium (Misc Panel) 4.5, POC Creatinine (Misc Panel) 2.4H, POC Hematocrit (Misc Panel) 36.0L 09/25/20 01:00: Coronavirus (COVID-19)(PCR) NEGATIVE, Influenza Type A (RT-PCR) NEGATIVE, Influenza Type B (RT-PCR) NEGATIVE, Respiratory Syncytial Virus (PCR) NEGATIVE 09/25/20 03:00: Body Fluid Source ASCITES, Body Fluid Color YELLOW, Body Fluid Appearance CLOUDY, Body Fluid WBC (Auto) 98301N, Body Fluid RBC (Auto) 10, Body Fluid Mononuclear Cells % Auto 5.7H, Fluid Polymorphonuclear Cell % Auto 94.3H 09/25/20 03:52: Lactic Acid Followup at 4 Hours 4.7*H 09/25/20 06:58: Nucleated Red Blood Cells % (auto) 0.0, Anion Gap 9, Glomerular Filtration Rate 26.2L, Lactic Acid Level 3.3*H, Calcium Level 8.3L, Magnesium Level 2.5H, Total Bilirubin 1.8H, Aspartate Amino Transf (AST/SGOT) 19, Alanine Aminotransferase (ALT/SGPT) 19, Alkaline Phosphatase 193H, Total Protein 4.5L, Albumin 2.5L, Albumin/Globulin Ratio 1.3 CBC/BMP Laboratory Tests 09/24/20 22:59 09/25/20 06:58 Microbiology Microbiology 09/25/20 Gram Stain - Final, Resulted 09/25/20 Body Fluid Culture, Resulted Pending 09/24/20 Blood Culture, Received Pending Yobani Sheehan MD Sep 25, 2020 11:20
[2020-09-25] MEDS: D5W IV SCH ×2 (11:51→21:34)
[2020-09-25] MEDS: CEFOTAXIME SOD IV SCH ×2 (11:51→21:34)
[2020-09-25 13:17] LABS: ALBUMIN 2.6 GM/DL (3.2-5.2); BILIRUBIN,TOTAL 1.7 MG/DL (0.2-1.0); CALCIUM LEVEL 8.2 MG/DL (8.8-10.2); CREATININE FOR GFR 2.63 MG/DL (0.70-1.30); GLOMERULAR FILTRATION RATE 25.4 (>42); POTASSIUM SERUM 5.4 MEQ/L (3.5-5.1); TOTAL PROTEIN 4.7 GM/DL (6.4-8.2)
--- NOTE | 2020-09-25 13:49 | SMCUROLCON ---
Urology Consultation General Date of Consultation 09/25/20 Reason For Consultation This patient is seen for Spontqneous Bacterial Peritonitis. History of Present Illness 75-year-old male with an extensive medical history including nonalcoholic liver cirrhosis, esophageal varices with banding, chronic kidney disease, AAA, atrial fibrillation on eliquis, insulin-dependent diabetes, congestive heart failure, coronary disease. He presents for sudden onset diffuse abdominal pain. In the emergency department he had an elevated lactic acidosis of 5.1 his leukocytosis was 19.8. He is afebrile and denies any fevers or chills. He also denies any chest pain or shortness of breath. He states earlier in the day he was having nausea and vomited but currently he has no nausea. Patient was suspected to have spontaneous bacterial peritonitis also CT imaging showed large volume abdominal and pelvic ascites. He was started on ceftriaxone. In the emergency department a diagnostic paracentesis was performed and fluid analysis pending. Patient was admitted to medical service for further medical evaluation and management. Non Contrast CT Scan 09/24/20 IMPRESSION: 1. Nodular wall thickening with calcification in the urinary bladder base concerning for bladder neoplasm. Consider follow-up cystoscopy or CT urogram. 2. Large volume of abdominal and pelvic ascites. No free air or drainable abscess. 3. Nonspecific wall thickening in the transverse colon. Possible colitis or artifact related to nondistention. Consider follow-up endoscopy to exclude underlying colonic lesion. No bowel obstruction. 4. Splenomegaly. Past Medical History Medical History Nonalcoholic liver cirrhosis Esophageal varices with banding Chronic kidney disease stage III Hypothyroidism History of gout GERD AAA RT testicular cancer PINKY Atrial fibrillation on eliquis Insulin-dependent diabetes mellitus Congestive heart failure Coronary artery disease Surgical Hstory right orchiectomy Cholecystectomy Right knee arthroplasty Left knee surgery Cataract removal Social History * Smoker: former Smoker Alcohol: Denies Medications Current Medications Current Medications Medications (Trade) Dose Ordered Sig/Derik Route PRN Reason Start Time Stop Time Status Last Admin Dose Admin Acetaminophen (Tylenol Tab) 650 mg Q4H PRN PO MILD PAIN or TEMP > 101 09/25/20 00:00 Albuterol Sulfate (Proventil, Ventolin Hfa) 2 puff QID PRN INH SHORTNESS OF BREATH 09/25/20 02:50 Allopurinol (Zyloprim) 100 mg DAILY PO 09/25/20 09:00 09/25/20 09:11 Apixaban (Eliquis) 2.5 mg BID PO 09/25/20 09:00 09/25/20 09:11 Cefotaxime Sodium 2 gm/Dextrose 50 ml @ 100 mls/hr Q8H IV 09/25/20 11:00 09/25/20 10:36 DC Cefotaxime Sodium 2000 mg/Dextrose 70 ml @ 140 mls/hr Q8H IV 09/25/20 12:00 09/25/20 11:51 Ceftriaxone Sodium 2 gm/ Dextrose 50 ml @ 100 mls/hr Q24H IV 09/25/20 01:00 09/25/20 09:45 DC 09/25/20 01:00 Colesevelam HCl (WelChoL) 3,750 mg QHS PO 09/25/20 21:00 Dextrose (Dextrose 50%) 25 ml ASDIRECTED PRN IV SEE LABEL COMMENTS 09/25/20 02:50 Docusate Sodium (Colace) 100 mg BID PO 09/24/20 21:00 Glucagon (Glucagon) 1 mg ASDIRECTED PRN SC SEE LABEL COMMENTS 09/25/20 02:50 Glucose (Glucose) 16 GM ASDIRECTED PRN PO SEE LABEL COMMENTS 09/25/20 02:50 Heparin Sodium (Porcine) (Heparin) 5,000 units Q12H SC 09/25/20 09:00 09/25/20 03:00 DC Home Med (Med Rec Complete!) ASDIRECTED XX 09/25/20 01:00 09/25/20 00:58 DC Insulin Detemir (Levemir Insulin) 40 units BID SC 09/25/20 09:00 Insulin Human Lispro (HumaLOG INSULIN) SEE PROTOCOL TABLE AC SC 09/25/20 07:30 09/25/20 09:11 Insulin Human Lispro (HumaLOG INSULIN) SEE PROTOCOL TABLE QHS SC 09/25/20 21:00 Levothyroxine Sodium (Synthroid) 150 mcg DAILY@06 PO 09/25/20 06:00 09/25/20 05:32 Magnesium Hydroxide (Milk Of Magnesia) 30 ml DAILY PRN PO CONSTIPATION 09/25/20 00:00 Midodrine (Proamatine) 5 mg TID@0800,1200,1600 PO 09/25/20 08:00 09/25/20 11:36 Midodrine (Proamatine) 10 mg 08,12,16 PO 09/25/20 08:00 09/25/20 01:10 DC Pantoprazole Sodium (Protonix) 40 mg DAILY PO 09/25/20 09:00 09/25/20 09:11 Spironolactone (Aldactone) 25 mg BID@09,17 PO 09/25/20 09:00 Torsemide (Demadex) 50 mg BID@09,17 PO 09/25/20 09:00 Allergies Allergies: Coded Allergies: bumetanide (Verified Allergy, Unknown, UNKNOWN, 09/24/20) valsartan (Verified Allergy, Unknown, UNKNOWN REACTION, 09/24/20) Quinolones (Verified Adverse Reaction, Mild, GI UPSET, 09/24/20) atorvastatin (Verified Adverse Reaction, Mild, GI UPSET, 09/24/20) ciprofloxacin (Verified Adverse Reaction, Mild, nausea and vomiting, 09/24/20) Review of Systems Genitourinary: Reports: Other Symptoms (urgency and nocturia ); Denies: Dysuria, Frequency, Incontinence, Hematuria, Retention Physical Examination Male Exam Not performed Female Exam: Nl Ext Genitalia; No: Normal Cervical Exam, Lesions, Discharge, Odor, Tenderness, Nl Rectal Sphincter Tone Vital Signs/I&O Vital Signs Date Time Temp Pulse Resp B/P (MAP) Pulse Ox O2 Delivery O2 Flow Rate FiO2 09/25/20 12:57 97.3 84 17 72/48 92 Nasal Cannula 2.0 I&O- Last 24 Hours up to 6 AM 09/25/20 06:00 Intake Total 50 ml Balance 50 ml Laboratory Data 24H Labs Laboratory Tests 2 09/24/20 22:59: Immature Granulocyte % (Auto) 0.4, Neutrophils (%) (Auto) 94.0H, Lymphocytes (%) (Auto) 1.9L, Monocytes (%) (Auto) 3.4, Eosinophils (%) (Auto) 0.1, Basophils (%) (Auto) 0.2, Neutrophils # (Auto) 18.7H, Lymphocytes # (Auto) 0.4L, Monocytes # (Auto) 0.7, Eosinophils # (Auto) 0.0, Basophils # (Auto) 0.0, Nucleated Red Blood Cells % (auto) 0.0, Lactic Acid Level 5.1*H, Total Bilirubin 2.4H, Direct Bilirubin 0.9H, Aspartate Amino Transf (AST/SGOT) 39H, Alanine Aminotransferase (ALT/SGPT) 25, Alkaline Phosphatase 245H, Total Creatine Kinase 92, Creatine Kin ase MB 3.2, Creatine Kinase MB Relative Index 3.48, Troponin I 0.02, Total Protein 5.6L, Albumin 3.0L, Albumin/Globulin Ratio 1.2, Lipase 113 09/24/20 23:06: POC Glucose (Misc Panel) 123H, POC Sodium (Misc Panel) 141, POC Potassium (Misc Panel) 4.8, POC Chloride (Misc Panel) 106, POC Total CO2 (Misc Panel) 21.0L, POC Blood Urea Nitrogen (Misc Panel 59H, POC Ionized Calcium (Misc Panel) 4.5, POC Creatinine (Misc Panel) 2.4H, POC Hematocrit (Misc Panel) 36.0L 09/25/20 01:00: Coronavirus (COVID-19)(PCR) NEGATIVE, Influenza Type A (RT-PCR) NEGATIVE, Influenza Type B (RT-PCR) NEGATIVE, Respiratory Syncytial Virus (PCR) NEGATIVE 09/25/20 03:00: Body Fluid Source ASCITES, Body Fluid Color YELLOW, Body Fluid Appearance CLOUDY, Body Fluid WBC (Auto) 40810D, Body Fluid RBC (Auto) 10, Body Fluid Mononuclear Cells % Auto 5.7H, Fluid Polymorphonuclear Cell % Auto 94.3H 09/25/20 03:52: Lactic Acid Followup at 4 Hours 4.7*H 09/25/20 06:58: Nucleated Red Blood Cells % (auto) 0.0, Anion Gap 9, Glomerular Filtration Rate 26.2L, Lactic Acid Level 3.3*H, Calcium Level 8.3L, Magnesium Level 2.5H, Total Bilirubin 1.8H, Aspartate Amino Transf (AST/SGOT) 19, Alanine Aminotransferase (ALT/SGPT) 19, Alkaline Phosphatase 193H, Total Protein 4.5L, Albumin 2.5L, Albumin/Globulin Ratio 1.3 09/25/20 11:43: Bedside Glucose (Misc Panel) 163H 09/25/20 12:31: Lactic Acid Followup at 4 Hours 3.5*H, Anion Gap 10, Glomerular Filtration Rate 25.4L, Calcium Level 8.2L, Total Bilirubin 1.7H, Aspartate Amino Transf (AST/SGOT) 21, Alanine Aminotransferase (ALT/SGPT) 19, Alkaline Phosphatase 182H, Total Protein 4.7L, Albumin 2.6L, Albumin/Globulin Ratio 1.2 CBC/BMP Laboratory Tests 09/24/20 22:59 09/25/20 06:58 09/25/20 12:31 Microbiology Microbiology 09/25/20 Gram Stain - Final, Resulted 09/25/20 Body Fluid Culture, Resulted Pending 09/24/20 Blood Culture, Received Pending Assessment Mr. Bassett does not have a known history of kidney stones, hematuria or bladder cancer. His CT abdomen and pelvic non contrast CT scan demonstrated Nodular wall thickening with calcification in the urinary bladder base concerning for bladder neoplasm. He doesn't have a history of hematuria. Other possible differential diagnoses is a renal stone at the left UVJ or inflammatory bladder wall in response to a peritoneal inflammation. However, his history of smoking for 50 years prior to quitting 10 year ago make it necessary to perform a cystoscopy at some point. This finding is unlikely to be associated with his reason for this hospital admission. Plan Out patient cystoscopy to rule out bladder pathology Time Spent on Consult: Time Spent / Consult (Minutes): 30 ALBA CERVANTES MD Sep 25, 2020 13:49
[2020-09-25] MEDS: COLESEVELAM 625 MG TAB (WELCHOL) PO SCH (21:35)
[2020-09-26] VITALS: BP 76/39
[2020-09-26 04:00] VITALS: BP 78/52
[2020-09-26] MEDS: D5W IV SCH (04:32)
[2020-09-26] MEDS: CEFOTAXIME SOD IV SCH (04:32)
[2020-09-26] MEDS: LEVOTHYROXINE 150MCG TABLET (0.15MG) PO SCH (05:17)
[2020-09-26 05:19] LABS: BASO % 0.2 % (0.0-1.0); HEMATOCRIT 27.1 % (42.0-52.0); HEMOGLOBIN 7.6 g/dl (13.5-17.5); LYMPH # 0.6 10^3/uL (1.5-5.0); LYMPH % 4.7 % (24.0-44.0); MEAN CORPUSCULAR VOLUME 78.3 fl (80.0-96.0); MONO # 1.2 10^3/uL (0.0-0.8); MONO % 9.6 % (2.0-8.0); NEUTROPHILS # 10.6 10^3/uL (1.5-8.5); NEUTROPHILS % 84.9 % (36.0-66.0); PLATELET COUNT, AUTOMATED 158 10^3/uL (150-450); RED BLOOD COUNT 3.46 10^6/uL (4.30-6.10); WHITE BLOOD COUNT 12.4 10^3/uL (4.0-10.0)
[2020-09-26 05:36] LABS: ALBUMIN 2.7 GM/DL (3.2-5.2); BILIRUBIN,TOTAL 1.6 MG/DL (0.2-1.0); CALCIUM LEVEL 8.7 MG/DL (8.8-10.2); CREATININE FOR GFR 2.93 MG/DL (0.70-1.30); GLOMERULAR FILTRATION RATE 22.4 (>42); POTASSIUM SERUM 5.4 MEQ/L (3.5-5.1); TOTAL PROTEIN 4.7 GM/DL (6.4-8.2)
[2020-09-26 07:56] VITALS: BP 91/53
[2020-09-26] MEDS: HumaLOG INSULIN (NovoLOG) PER UNIT SC SCH ×4 (08:14→20:39)
[2020-09-26] MEDS: LEVEMIR (INSULIN DETEMIR) 1 UNITS/0.01ML SC SCH ×2 (08:15→20:40)
[2020-09-26] MEDS: MIDODRINE 5 MG TAB PO SCH ×3 (08:15→15:40)
[2020-09-26] MEDS: SPIRONOLACTONE 25 MG TAB PO SCH ×2 (08:15→17:07)
[2020-09-26] MEDS: allopurinoL 100 MG TAB PO SCH (08:16)
[2020-09-26] MEDS: DOCUSATE SODIUM 100MG CAPSULE PO SCH ×2 (08:16→20:40)
[2020-09-26] MEDS: PANTOPRAZOLE 40MG TAB (PROTONIX) PO SCH (08:16)
[2020-09-26] MEDS: APIXABAN 2.5 MG TAB (ELIQUIS) PO SCH ×2 (08:16→20:40)
[2020-09-26] MEDS: TORSEMIDE (DEMADEX) 50 MG PER 1/2 TAB PO SCH ×2 (08:20→17:07)
[2020-09-26 11:45] VITALS: BP 96/57
[2020-09-26] MEDS: cefTRIAXone SOD 2 GM in D5W MINI-BAG PLUS 50 ML IV SCH (12:13)
[2020-09-26 15:39] VITALS: BP 99/58
--- NOTE | 2020-09-26 19:35 | ECGEPIP ---
[facility] - ED Test Date: 2020-09-24 Pat Name: MALLORIE MOYA Department: Room: [place] [address] Gender: Male Vp Biology: MARJ : 1945 Requested By: GET Moreland Order Number: [id number] Reading MD: Michaela Tsang Measurements Intervals [place] Rate: 92 P: NV: QRS: -66 QRSD: 116 T: 97 QT: 374 QTc: 462 Interpretive Statements Atrial fibrillation Left axis deviation Low voltage QRS Incomplete right bundle branch block Inferior infarct , age undetermined Possible Anterolateral infarct , age undetermined increased rate 09/11/20 Electronically Signed on 09-26-2020 19:34:39 EDT by Michaela Tsang
--- NOTE | 2020-09-26 19:48 | IPNPDOC ---
Subjective Date Seen The patient was seen on 09/26/20. Subjective Chief Complaint/HPI Mr. Bassett reports that his abdominal pain is much improved today. He still has significant ascites. His blood pressures, while chronically low, have been more stable today. I had him on cefotaxime for treatment of his spontaneous bacterial peritonitis because of its superior bioavailability in ascitic fluid. However, the hospital seems to be running low on cefotaxime and pharmacy requested I change this medication if possible. Ceftriaxone has adequate penetration into ascitic fluid as well, so I changed his antibiotics to this. General: Denies: Normal Appetite (he still does not feel particularly hungry) Constitutional: Denies: Chills, Fever Pulmonary: Denies: Dyspnea, Cough Gastrointestinal: Reports: Abdominal Pain; Denies: Nausea, Vomiting Genitourinary: Denies: Dysuria Psych: Reports: Mood Normal Objective Physical Examination General Exam: Positive: Alert, Cooperative (Laying on his right side in bed when I entered the room. This is noteworthy because up until today he has reported that any position other than laying on his left side was too painful to tolerate.), No Acute Distress Eye Exam: Positive: Conjunctiva & lids normal; Negative: Sclera icteric ENT Exam: Positive: Atraumatic, Mucous membr. moist/pink Neck Exam: Positive: Supple; Negative: Lymphadenopathy Chest Exam: Positive: Clear to auscultation, Diminished (Probably from hypoventilation related to the ascites pushing on his diaphragm) Heart Exam: Positive: Rate Normal, Irregular Rhythm, Normal S1, Normal S2 Telemetry: Positive: No significant arrhythmia Abdomen Exam: Positive: BS Hypoactive, Soft, Tenderness (he is only mildly tender on palpation or with rebound) Extremity Exam: Positive: Edema (trace edema around his ankles); Negative: Tenderness Neuro Exam: Positive: Normal Speech, Normal Tone Psych Exam: Positive: Mood NL, Oriented x 3 Assessment /Plan Problems (1) Spontaneous bacterial peritonitis Status: Acute Problem Text: His abdomen is much less tender today. He still has significant ascites. Culture is still pending. His antibiotic was changed from cefotaxime to ceftriaxone today as noted above. This was done for supply issues, not for medical indication. (2) Sepsis Status: Acute Discussed With: Nurse, Patient Problem Specific Plan: Monitor Clinically Problem Text: His blood pressure remains on the low side, but this seems about his baseline. I think his risk of going back into sepsis decompensating is getting much lower. Continue current regimen, monitor. (3) Hypotension, chronic Status: Chronic Problem Text: He has chronic hypotension and is on midodrine. I believe the albumin he received yesterday did help. If we are going to stick to the SBP protocol he should receive another 4 or 6 bags of albumin tomorrow. I think it makes sense to clinically assess him before ordering this. However, if he begins having trouble with hypotension related to fluid shifts again I would have a fairly low threshold for re-transfusing albumin. (4) Urinary bladder disorder Problem Text: Dr. Cain, from urology, came and evaluated the patient yesterday. He is recommended out patient cystoscopy to further characterize the lesion noted incidentally on the CT scan. (5) Anemia Problem Text: His hemoglobin is still trending down. I'm not certain if this represents hemodilution to a somewhat appropriate vascular volume, or if this actually related to blood loss. I'm not aware of any place he's bleeding, but I will do a UA and stool for occult blood We will need to monitor this carefully. (6) Afib Status: Chronic Response to Treatment: Controlled Problem Text: He is currently anticoagulated with Eliquis. If he needs a procedure this may need to be held or bridged. (7) CHF (congestive heart failure) Status: Chronic Problem Text: His congestive heart failure is currently reasonably controlled, however, I suspect that his vascular volume is low right now. Will need to be very cautious with his heart failure as we revascularize the ascitic fluid. (8) Diabetes Status: Chronic Problem Text: He has a longstanding history of diabetes. We will continue basal insulin and insulin sliding scale while he is here in the hospital. (9) CAD (coronary artery disease) Status: Chronic Problem Text: He has a known history of coronary artery disease. He is currently asymptomatic. We will continue to monitor. (10) Hypothyroid Status: Chronic Problem Text: Continue his current dose of Synthroid. (11) PINKY (obstructive sleep apnea) Status: Chronic Problem Text: He does not seem to have a CPAP or BiPAP with him. He should be sleeping with these on. I will have nursing clarify whether he has them at home and needs them here or whether we should try to get his settings and have our respiratory therapist set him up. Regardless if he has obstructive sleep apnea, and some difficulty breathing related to a large volume of abdominal ascites we certainly need to make sure he has all the respiratory support he needs. (12) CKD (chronic kidney disease) Status: Chronic Problem Text: His creatinine is currently 2.9 which is roughly a full point over his baseline. I think this will improve as we move fluid from his abdomen into the vascular space again. We will need to monitor carefully. (13) Gout Status: Chronic Problem Text: Continue his allopurinol. (14) Obesity (BMI 30.0-34.9) Problem Text: His obesity certainly complicates many of the clinical conditions that are acutely exacerbated at this point in time and make his overall prognosi s more difficult to gauge. Plan/VTE VTE Prophylaxis Ordered?: Yes (DENEEN, kalyn, Kristyn) VS, I&O, 24H, Fishbone Vital Signs/I&O Vital Signs Date Time Temp Pulse Resp B/P (MAP) Pulse Ox O2 Delivery O2 Flow Rate FiO2 09/26/20 16:00 2.0 09/26/20 15:50 98.5 83 18 94 Nasal Cannula 09/26/20 15:39 99/58 (72) I&O- Last 24 Hours up to 6 AM 09/26/20 06:00 Intake Total 420.0 ml Output Total 200 ml Balance 220.0 ml Laboratory Data 24H LABS Laboratory Tests 2 09/26/20 04:50: Immature Granulocyte % (Auto) 0.6, Neutrophils (%) (Auto) 84.9H, Lymphocytes (%) (Auto) 4.7L, Monocytes (%) (Auto) 9.6H, Eosinophils (%) (Auto) 0.0, Basophils (%) (Auto) 0.2, Neutrophils # (Auto) 10.6H, Lymphocytes # (Auto) 0.6L, Monocytes # (Auto) 1.2H, Eosinophils # (Auto) 0.0, Basophils # (Auto) 0.0, Nucleated Red Blood Cells % (auto) 0.0, Anion Gap 9, Glomerular Filtration Rate 22.4L, Lactic Acid Level 2.7*H, Calcium Level 8.7L, Total Bilirubin 1.6H, Aspartate Amino Transf (AST/SGOT) 13, Alanine Aminotransferase (ALT/SGPT) 17, Alkaline Phosphatase 150H, Total Protein 4.7L, Albumin 2.7L, Albumin/Globulin Ratio 1.4 09/26/20 12:01: Bedside Glucose (Misc Panel) 201H 09/26/20 12:03: Lactic Acid Followup at 4 Hours 2.7*H 09/26/20 16:54: Bedside Glucose (Misc Panel) 132H CBC/BMP Laboratory Tests 09/26/20 04:50 Microbiology Microbiology 09/25/20 Gram Stain - Final, Resulted 09/25/20 Body Fluid Culture, Resulted Pending 09/24/20 Blood Culture - Preliminary, Resulted No growth after 24 hours . All specim... Yobani Sheehan MD Sep 26, 2020 19:48
[2020-09-26 20:00] VITALS: BP 84/48
[2020-09-26 20:26] LABS: C REACTIVE PROTEIN QUANTITATIV 15.3 MG/DL (0.00-0.30)
[2020-09-26] MEDS: COLESEVELAM 625 MG TAB (WELCHOL) PO SCH (20:41)
[2020-09-27] VITALS (10 sets, daily range): BP systolic 82–106; BP diastolic 43–59
[2020-09-27] MEDS: LEVOTHYROXINE 150MCG TABLET (0.15MG) PO SCH (05:00)
[2020-09-27 05:44] LABS: BASO % 0.1 % (0.0-1.0); EOS % 0.3 % (0.0-3.0); HEMATOCRIT 29.3 % (42.0-52.0); HEMOGLOBIN 8.3 g/dl (13.5-17.5); LYMPH # 0.6 10^3/uL (1.5-5.0); LYMPH % 4.4 % (24.0-44.0); MEAN CORPUSCULAR HEMOGLOBIN 22.5 pg (27.0-33.0); MEAN CORPUSCULAR HGB CONC 28.3 g/dl (32.0-36.5); MEAN CORPUSCULAR VOLUME 79.4 fl (80.0-96.0); MONO # 1.1 10^3/uL (0.0-0.8); MONO % 8.2 % (2.0-8.0); NEUTROPHILS # 11.7 10^3/uL (1.5-8.5); NEUTROPHILS % 86.4 % (36.0-66.0); PLATELET COUNT, AUTOMATED 170 10^3/uL (150-450); RED BLOOD COUNT 3.69 10^6/uL (4.30-6.10); WHITE BLOOD COUNT 13.5 10^3/uL (4.0-10.0)
[2020-09-27 05:45] LABS: APPEARANCE, URINE HAZY (CLEAR); BILIRUBIN, URINE AUTO NEGATIVE (NEGATIVE); BLOOD, URINE BLOOD 3+ (NEGATIVE); COLOR, URINE YELLOW (YELLOW); GLUCOSE, URINE (UA) AUTO NEGATIVE (NEGATIVE); KETONE, URINE AUTO NEGATIVE (NEGATIVE); LEUKOCYTE ESTERASE, URINE AUTO 2+ (NEGATIVE); NITRITE, URINE AUTO NEGATIVE (NEGATIVE); PROTEIN, URINE AUTO 1+ mg/dL (NEGATIVE); RBC, URINE AUTO 41 /HPF (0-3); SPECIFIC GRAVITY URINE AUTO 1.006 (1.002-1.035); UROBILINOGEN, URINE AUTO 0.2 mg/dL (0.0-2.0); WBC, URINE AUTO 65 /HPF (0-3)
[2020-09-27 05:46] LABS: SQUAMOUS EPITHELIAL CELL UR AU 0 /HPF (0-6)
[2020-09-27 06:18] LABS: ALBUMIN 2.5 GM/DL (3.2-5.2); BILIRUBIN,TOTAL 1.2 MG/DL (0.2-1.0); C REACTIVE PROTEIN QUANTITATIV 20.7 MG/DL (0.00-0.30); CALCIUM LEVEL 8.2 MG/DL (8.8-10.2); CREATININE FOR GFR 2.88 MG/DL (0.70-1.30); GLOMERULAR FILTRATION RATE 22.9 (>42); POTASSIUM SERUM 4.7 MEQ/L (3.5-5.1); TOTAL PROTEIN 4.6 GM/DL (6.4-8.2)
[2020-09-27] MEDS: HumaLOG INSULIN (NovoLOG) PER UNIT SC SCH ×4 (07:30→21:00)
[2020-09-27] MEDS: LEVEMIR (INSULIN DETEMIR) 1 UNITS/0.01ML SC SCH ×2 (07:44→21:28)
[2020-09-27] MEDS: allopurinoL 100 MG TAB PO SCH (08:07)
[2020-09-27] MEDS: MIDODRINE 5 MG TAB PO SCH ×3 (08:07→16:40)
[2020-09-27] MEDS: PANTOPRAZOLE 40MG TAB (PROTONIX) PO SCH (08:07)
[2020-09-27] MEDS: APIXABAN 2.5 MG TAB (ELIQUIS) PO SCH (08:07)
[2020-09-27] MEDS: DOCUSATE SODIUM 100MG CAPSULE PO SCH ×2 (08:09→21:28)
[2020-09-27 08:28] LABS: INR 1.64; PROTHROMBIN TIME 19.8 SECONDS (12.7-14.5)
[2020-09-27 08:29] LABS: PARTIAL THROMBOPLASTIN TIME 44.8 SECONDS (25.9-37.0)
[2020-09-27] MEDS: metroNIDAZOLE 500 MG in IV 1 EA IV SCH ×2 (09:39→16:40)
[2020-09-27] MEDS: cefTRIAXone SOD 2 GM in D5W MINI-BAG PLUS 50 ML IV SCH (11:50)
--- NOTE | 2020-09-27 13:32 | IPN ---
PROGRESS NOTE DATE: 09/27/2020 SUBJECTIVE: The patient was seen and examined at the bedside. Chart has been reviewed. The patient appears to be dyspneic. No chest pain, pressure, tightness, palpitations. Lightheadedness with increasing abdominal distention and lower extremity edema despite diuretics. He complains of lightheadedness and slight dizziness when he gets up from lying down in the supine position, sitting to standing, with ambulation. Afebrile, no chills. No other complaints of nausea and vomiting or abdominal pain. OBJECTIVE: VITAL SIGNS: Temperature 98, pulse 86, respiratory rate 18, blood pressure 85/43, 96% on 2 liters nasal cannula. GENERAL: Generally the patient is awake, alert and oriented to person, place, and time. HEENT: Anicteric. No jaundice. No cyanosis. Positive use of respiratory accessory muscles. No jugular venous distention (JVD), no thyromegaly or cervical lymphadenopathy. Moist mucous membranes. Poor dentition. LUNGS: Diminished but clear to auscultation, no wheezing or rales. HEART: S1, S2, irregularly irregular. Not tachycardic. ABDOMEN: Distended, obese, positive bowel sounds, positive fluid wave. No rebound or guarding. No CVA tenderness. EXTREMITIES: 2+ pitting edema to the sacrum. Laboratory data, microbiology, imaging studies have all been reviewed. ASSESSMENT AND PLAN: This is a 75-year-old male admitted on 09/24/2020 with a history of non-alcoholic liver cirrhosis, varices with banding, follows with Dr. Norton, baseline chronic kidney disease stage III, hypothyroidism, gout, reflux, abdominal aortic aneurysm, atrial fibrillation on Eliquis, diabetes, congestive heart failure, coronary artery disease, cholecystectomy, admitted for abdominal pain, found to have spontaneous bacterial peritonitis with large volume abdominal and pelvic ascites. He was started on intravenous ceftriaxone. The patient had worsening white blood cell count without fevers or chills. Abdominal distention has worsened. The patient has been started on IV Flagyl today with paracentesis ordered. Creatinine has increased from baseline stage III renal failure to now stage IV renal failure with GFR of 22.9. Active issues are as follows: 1. Decompensated liver cirrhosis, nonalcoholic. The patient is hypotensive with fluid overload and renal dysfunction. Nephrology has been consulted to help in diuresis. Hold off on the patient's diuretics for now until managed by Nephrology. The patient's midodrine has been increased to 10 mg three times a day as well as albumin transfusions. Monitor strict input and output, daily weights for now. Continue with IV ceftriaxone. Add Flagyl for SBP. 2. Spontaneous bacterial peritonitis with increasing white blood cell count. The patient has been given IV ceftriaxone. We will add IV Flagyl for now. Repeat paracentesis for therapeutic purposes since the patient has worsening renal failure. Monitor the patient for fevers, worsening abdominal pain. White count has slightly increased. We will continue to monitor for now. 3. The patient is currently on strict input and output. Receiving blood pressure support to increase effective circulating volume to the kidneys to allow for diuresis. Nephrology has been consulted to determine the appropriate regimen for better net negative balance. 4. Diabetes, currently with episodes of hypoglycemia. Holding parameters, placed on Levemir insulin and decreased to 38 units subcutaneously twice a day. 5. [id number] renal failure. Baseline creatinine is stage III, currently has stage IV creatinine. Nephrology has been consulted due to worsening renal function in the setting of poor circulating volume from decompensated liver cirrhosis. 6. Hypotension due to anasarca with fluid overload and decompensated liver cirrhosis and renal dysfunction. Nephrology has been consulted for help in fluid balance. BONNIED
[2020-09-27] MEDS: COLESEVELAM 625 MG TAB (WELCHOL) PO SCH (21:27)
--- NOTE | 2020-09-27 21:29 | CR ---
NEPHROLOGY CONSULTATION DATE: 09/27/2020 REQUESTING PHYSICIAN: Dr. Vic Mejia CONSULTING PHYSICIAN: Dr. Renata Dhillon REASON FOR CONSULTATION: Acute kidney injury superimposed on chronic kidney disease. HISTORY OF PRESENT ILLNESS: Mr. Bassett is a 75-year-old gentleman with multiple chronic medical problems including non alcoholic liver cirrhosis, esophageal varices, stage 3 chronic kidney disease, hypothyroidism, abdominal aortic aneurysm and a history of gout. He was admitted to [facility] yesterday due to severe abdominal pain and found to have spontaneous bacterial peritonitis. The patient also has developed worsening kidney function. A nephrology consultation was requested today for potential need for diuresis and worsening kidney function. PAST MEDICAL AND SURGICAL HISTORY: The patient's past medical and surgical history is significant for: 1. Non alcoholic cirrhosis with recurrent ascites. 2. Esophageal varices with banding. 3. Chronic kidney disease stage 3. 4. Hypothyroidism. 5. Gout. 6. Abdominal aortic aneurysm without rupture. 7. History of gastroesophageal reflux disease. 8. History of testicular cancer with prior right orchiectomy. 9. Obstructive sleep apnea. 10. History of atrial fibrillation on chronic anticoagulation. 11. Insulin dependent diabetes. 12. History of congestive heart failure. 13. Coronary artery disease. PAST SURGICAL HISTORY: The patient's past surgical history is significant for: 1. Cholecystectomy. 2. Right knee arthroplasty. 3. Left knee surgery. 4. Cataract removal. FAMILY HISTORY: The patient's family history is noncontributory for this admission. PERSONAL AND SOCIAL HISTORY: The patient denies any alcohol, tobacco or illicit drug use. MEDICATIONS: His home medications include: 1. Allopurinol 100 mg daily. 2. Eliquis 2.5 mg twice daily. 3. Vitamin C 1,000 mg daily. 4. Vitamin D 1,000 units, two tablets daily. 5. Welchol 3.7 grams at bedtime. 6. Glucosamine one capsule twice daily. 7. Insulin Levemir 40 units daily. 8. NovoLog per sliding scale. 9. Levothyroxine 175 mcg daily. 10. Midodrine 5 mg three times daily. 11. Multivitamin one tablet daily. 12. Pantoprazole 40 mg daily. 13. Spironolactone 25 mg twice daily. 14. Torsemide 50 mg twice daily. 15. Multivitamin one tablet daily. ALLERGIES: The patient has multiple allergies includin. Quinolones. 2. Valsartan. 3. Bumetanide. 4. Atorvastatin. REVIEW OF SYSTEMS: Constitutional: The patient denies any fevers or chills. He reports severe abdominal pain which has now improved from 10 down to level of 3 or 4. He denies any vomiting or diarrhea. He was diagnosed with spontaneous bacterial peritonitis with a diagnostic paracentesis. Ears, nose and throat: Unremarkable. Cardiovascular: Significant for atrial fibrillation and congestive heart failure. Respiratory: Negative for cough or hemoptysis. Gastrointestinal: Significant for cirrhosis with ascites and history of esophageal varices. He denies any rectal bleeding or melanotic stools. Genitourinary: Significant for some abnormal calcifications and thickening of the bladder wall. No history of hematuria. He has been seen by Urology. Musculoskeletal: Significant for chronic degenerative arthritis. Endocrine: Significant for hypothyroidism, type 2 diabetes and secondary hyperparathyroidism. Neurological: Negative for seizures or strokes. Psychosocial: Negative for depression or anxiety. PHYSICAL EXAMINATION: VITAL SIGNS: Temperature 98 degrees Fahrenheit, heart rate 86 per minute, respiratory rate 18 per minute, blood pressure 98/57 mm of mercury and oxygen saturation is 91% on room air. HEENT: His head is atraumatic. NECK: Supple and JVD not abnormally elevated. LUNGS: Diminished breath sounds at the bases. ABDOMEN: Markedly distended with ascites. Bowel sounds are present. EXTREMITIES: Without any cyanosis or clubbing. SKIN: Without any rash or ulcers. NEUROLOGICAL: He is awake, alert and without any focal deficits. LABORATORY DATA: Yesterday his sodium was 141, potassium 5.4, BUN 69 and creatinine 2.93. Lactic acid level was 3.5 which has now improved to 2.7. Today BUN is 71 and creatinine 2.88. Potassium is 4.7 and sodium is 142. C-reactive protein was 15.3 yesterday and is up to 20.7. Peritoneal fluid showed 39,355 WBCs with 94% neutrophils. Urinalysis showed 3+ blood and 65 WBCs with 41 RBCs. IMAGING DATA: CAT scan of abdomen and pelvis was consistent with a large amount of abdominal and pelvic ascites. Nodular wall thickening and calcification in the urinary bladder. Nonspecific wall thickening of the transverse colon. Splenomegaly was also noticed. PROBLEMS: 1. Congestive heart failure at present his volume status seems clinically compensated. His blood pressure is soft and I would recommend to hold off on diuretics for now. I think that the patient can benefit from IV albumin due to large amount of ascites and need for paracentesis. This will also help to prevent hypotension with large volume paracentesis. He did have some calcification and thickening of the bladder wall, however there was no hydronephrosis on the CAT scan. We will continue to watch his renal function. 2. Anemia his hemoglobin was 7.6 yesterday and today it is noted to be 8.3. He can probably benefit from one unit of packed RBCs which will help with his low back pain and possible improvement in his renal perfusion. 3. Spontaneous bacterial peritonitis - The patient is currently being treated with Metronidazole and Ceftriaxone. I would recommend further paracentesis to evaluate ascites fluid. Thank you for involving me in the care of Mr. Bassett. I will follow him along with you.
[2020-09-28] VITALS (13 sets, daily range): BP systolic 92–124; BP diastolic 51–66
[2020-09-28] MEDS: metroNIDAZOLE 500 MG in IV 1 EA IV SCH ×3 (01:17→21:08)
[2020-09-28] MEDS: LEVOTHYROXINE 150MCG TABLET (0.15MG) PO SCH (05:17)
[2020-09-28 06:22] LABS: C REACTIVE PROTEIN QUANTITATIV 16.1 MG/DL (0.00-0.30)
[2020-09-28 08:31] LABS: HEMATOCRIT 27.1 % (42.0-52.0); HEMOGLOBIN 7.6 g/dl (13.5-17.5); MEAN CORPUSCULAR HEMOGLOBIN 22.4 pg (27.0-33.0); MEAN CORPUSCULAR VOLUME 79.9 fl (80.0-96.0); PLATELET COUNT, AUTOMATED 167 10^3/uL (150-450); RED BLOOD COUNT 3.39 10^6/uL (4.30-6.10); WHITE BLOOD COUNT 10.3 10^3/uL (4.0-10.0)
[2020-09-28] MEDS: HumaLOG INSULIN (NovoLOG) PER UNIT SC SCH ×4 (08:33→21:00)
[2020-09-28] MEDS: PANTOPRAZOLE 40MG TAB (PROTONIX) PO SCH (08:34)
[2020-09-28] MEDS: DOCUSATE SODIUM 100MG CAPSULE PO SCH ×2 (08:34→21:57)
[2020-09-28] MEDS: MIDODRINE 5 MG TAB PO SCH ×3 (08:34→16:36)
[2020-09-28] MEDS: LEVEMIR (INSULIN DETEMIR) 1 UNITS/0.01ML SC SCH ×2 (08:34→21:56)
[2020-09-28] MEDS: allopurinoL 100 MG TAB PO SCH (08:34)
[2020-09-28 08:43] LABS: INR 1.54; PROTHROMBIN TIME 18.9 SECONDS (12.7-14.5)
[2020-09-28 08:44] LABS: ALBUMIN 2.6 GM/DL (3.2-5.2); CALCIUM LEVEL 8.4 MG/DL (8.8-10.2); CREATININE FOR GFR 2.9 MG/DL (0.70-1.30); GLOMERULAR FILTRATION RATE 22.7 (>42); PARTIAL THROMBOPLASTIN TIME 41.1 SECONDS (25.9-37.0); PHOSPHORUS LEVEL 4.3 MG/DL (2.5-4.9); POTASSIUM SERUM 4.7 MEQ/L (3.5-5.1)
[2020-09-28 09:00] LABS: ERYTHROCYTE SEDIMENTATION RATE 29 mm/hr (0-20)
--- NOTE | 2020-09-28 09:37 | IPNPDOC ---
Date Seen The patient was seen on 09/28/20. Progress Note SUBJECTIVE: No fever chills overnight complains of slight abdominal discomfort baseline shortness of breath despite increasing fluid overload Paracentesis postponed yesterday since the patient was given a dose of Eliquis He denies bright red blood per rectum melena black tarry stools or hematemesis Despite decreasing hemoglobin less than 8 today Tolerating his diet without nausea vomiting Complains of 2 loose stools OBJECTIVE: VITAL SIGNS: GENERAL: No distress no jaundice positive use of respiratory accessory muscles But able to complete full sentences HEENT: Anicteric. No jaundice. No cyanosis. No jugular venous distention (JVD), no thyromegaly or cervical lymphadenopathy. Moist mucous membranes. Poor dentition. LUNGS: Diminished bibasilar crackles HEART: S1, S2, irregularly irregular. Not tachycardic. ABDOMEN: Worsening distention, obese, positive bowel sounds, positive fluid wave. No rebound or guarding. No CVA tenderness. EXTREMITIES: 2+ pitting edema to the sacrum. Laboratory data, microbiology, imaging studies have all been reviewed. ASSESSMENT AND PLAN: This is a 75-year-old male admitted on 09/24/2020 with a history of non-alcoholic liver cirrhosis, varices with banding, follows with Dr. Norton, baseline chronic kidney disease stage III, hypothyroidism, gout, reflux, abdominal aortic aneurysm, atrial fibrillation on Eliquis, diabetes, congestive heart failure, coronary artery disease, cholecystectomy, admitted for abdominal pain, found to have spontaneous bacterial peritonitis with large volume abdominal and pelvic ascites. He was started on intravenous ceftriaxone. The patient had worsening white blood cell count without fevers or chills. Abdominal distention has worsened. The patient has been started on IV Flagyl today with paracentesis ordered. Creatinine has increased from baseline stage III renal failure to now stage IV renal failure with GFR of 22.9. Active issues are as follows: Decompensated liver cirrhosis, nonalcoholic Due to renal failure now with stage IV patient's diuresis and fluid management has been deferred to deputy chief executive Dr. Renata Dhillon. Due to hypotension he has been given intravenous albumin transfusions As well as midodrine. Spontaneous bacterial peritonitis Pain is improved patient is tolerating his diet he is afebrile with decreasing white count with addition of IV Flagyl day #2 today he is continued on ceftriaxone which was started on admission Diabetes Had episodes of hypoglycemia. Holding parameters, placed on Levemir insulin and decreased to 38 units subcutaneously twice a day. [id number] renal failure. Baseline creatinine is stage III, currently has stage IV creatinine. Nephrology has been consulted due to worsening renal function in the setting of poor circulating volume from decompensated liver cirrhosis. Hypotension due to anasarca with fluid overload and decompensated liver cirrhosis and renal dysfunction. Nephrology has been consulted for help in fluid balance. On midodrine and albumin transfusions Symptomatic anemia Complains of slight dizziness without overt GI bleed Eliquis held Patient is to have paracentesis today Transfuse 1 unit RBC Chronic A. fib, rate controlled Eliquis held due to plans for paracentesis today No beta-blockers or calcium Channel blockers due to hypotension CHF Fluid management per nephrology VS, I&O, 24H, Fishbone Vital Signs/I&O Vital Signs Date Time Temp Pulse Resp B/P (MAP) Pulse Ox O2 Delivery O2 Flow Rate FiO2 09/28/20 08:00 2.0 09/28/20 07:45 97.6 72 18 93/61 (72) 90 Nasal Cannula I&O- Last 24 Hours up to 6 AM 09/28/20 06:00 Intake Total 1585.0 ml Output Total 1525 ml Balance 60.0 ml Laboratory Data 24H LABS Laboratory Tests 2 09/27/20 11:35: Bedside Glucose (Misc Panel) 127H 09/27/20 16:30: Bedside Glucose (Misc Panel) 171H 09/27/20 21:14: Bedside Glucose (Misc Panel) 242H 09/28/20 05:44: Nucleated Red Blood Cells % (auto) 0.0, Erythrocyte Sedimentation Rate 29H, Prothrombin Time 18.9H, Prothromb Time International Ratio 1.54, Activated Partial Thromboplast Time 41.1H, Anion Gap 9, Glomerular Filtration Rate 22.7L, Calcium Level 8.4L, Phosphorus Level 4.3, C-Reactive Protein, Quantitative 16.10H, Albumin 2.6L 09/28/20 08:09: Bedside Glucose (Misc Panel) 109 CBC/BMP Laboratory Tests 09/28/20 05:44 Microbiology Microbiology 09/27/20 Stool Occult Blood (ALEM) - Final, Complete 09/25/20 Gram Stain - Final, Complete 09/25/20 Body Fluid Culture - Final, Complete 09/24/20 Blood Culture - Preliminary, Resulted No Growth after 72 hours. All specime... VITOR LIVINGSTON MD Sep 28, 2020 09:37
[2020-09-28] MEDS ORDERED: SLF 3 ML SYR IV PRN (09:45)
[2020-09-28] MEDS: cefTRIAXone SOD 2 GM in D5W MINI-BAG PLUS 50 ML IV SCH (12:16)
[2020-09-28] MEDS: SLF 3 ML SYR IV SCH ×2 (14:04→22:28)
--- NOTE | 2020-09-28 17:17 | REP ---
INDICATION: therapeutic. COMPARISON: None. TECHNIQUE: The procedure was performed under the direct supervision of Dr. Andino. The risks and benefits of the procedure were explained to the patient and informed consent was obtained. The largest pocket of fluid was localized in the right flank using ultrasound guidance. The skin was prepped and draped in a sterile fashion. 4 mL of 1% lidocaine was used as a local anesthetic. An 8-Anguillan multi side-hole catheter was inserted using trocar technique.4350 mL of yellow fluid was withdrawn and discarded. Estimated blood loss: Less than 1 mL The patient tolerated the procedure well and there were no immediate complications. After the appropriate amount of monitored convalescence, the patient was discharged from the department. FINDINGS: None IMPRESSION: Ultrasound-guided paracentesis [id number] mL of yellow fluid. <Electronically signed by Jaden Piedra > 09/28/20 [id number] <Electronically signed by Jason Andino > 09/28/20 [id number]
[2020-09-28] MEDS: COLESEVELAM 625 MG TAB (WELCHOL) PO SCH (21:57)
[2020-09-29] MEDS: metroNIDAZOLE 500 MG in IV 1 EA IV SCH ×3 (00:37→12:59)
[2020-09-29 04:00] VITALS: BP 101/54
[2020-09-29 04:57] LABS: BASO % 0.4 % (0.0-1.0); EOS # 0.2 10^3/uL (0.0-0.5); HEMATOCRIT 31.4 % (42.0-52.0); HEMOGLOBIN 8.9 g/dl (13.5-17.5); LYMPH # 0.7 10^3/uL (1.5-5.0); LYMPH % 7.8 % (24.0-44.0); MEAN CORPUSCULAR HEMOGLOBIN 22.9 pg (27.0-33.0); MEAN CORPUSCULAR HGB CONC 28.3 g/dl (32.0-36.5); MEAN CORPUSCULAR VOLUME 80.7 fl (80.0-96.0); MONO # 0.7 10^3/uL (0.0-0.8); MONO % 7.9 % (2.0-8.0); NEUTROPHILS # 7.3 10^3/uL (1.5-8.5); NEUTROPHILS % 80.7 % (36.0-66.0); PLATELET COUNT, AUTOMATED 178 10^3/uL (150-450); RED BLOOD COUNT 3.89 10^6/uL (4.30-6.10)
[2020-09-29] MEDS: SLF 3 ML SYR IV SCH ×3 (05:24→20:17)
[2020-09-29 05:26] LABS: ALBUMIN 2.3 GM/DL (3.2-5.2); BILIRUBIN,TOTAL 1.4 MG/DL (0.2-1.0); C REACTIVE PROTEIN QUANTITATIV 13.6 MG/DL (0.00-0.30); CALCIUM LEVEL 8.1 MG/DL (8.8-10.2); CREATININE FOR GFR 2.65 MG/DL (0.70-1.30); GLOMERULAR FILTRATION RATE 25.2 (>42); MAGNESIUM LEVEL 2.5 MG/DL (1.8-2.4); POTASSIUM SERUM 4.9 MEQ/L (3.5-5.1); TOTAL PROTEIN 4.9 GM/DL (6.4-8.2)
[2020-09-29] MEDS: LEVOTHYROXINE 150MCG TABLET (0.15MG) PO SCH (05:52)
[2020-09-29] MEDS: HumaLOG INSULIN (NovoLOG) PER UNIT SC SCH ×4 (07:30→20:17)
[2020-09-29] MEDS: LEVEMIR (INSULIN DETEMIR) 1 UNITS/0.01ML SC SCH ×2 (07:49→20:16)
[2020-09-29 08:00] VITALS: BP 82/50
[2020-09-29] MEDS: MIDODRINE 5 MG TAB PO SCH ×3 (08:10→16:19)
[2020-09-29] MEDS: PANTOPRAZOLE 40MG TAB (PROTONIX) PO SCH (08:10)
[2020-09-29] MEDS: DOCUSATE SODIUM 100MG CAPSULE PO SCH ×2 (08:10→20:15)
[2020-09-29] MEDS: allopurinoL 100 MG TAB PO SCH (08:11)
[2020-09-29 08:44] LABS: INR 1.37; PROTHROMBIN TIME 17.3 SECONDS (12.7-14.5)
[2020-09-29 08:45] LABS: PARTIAL THROMBOPLASTIN TIME 39.9 SECONDS (25.9-37.0)
[2020-09-29 09:12] VITALS: BP 106/60
--- NOTE | 2020-09-29 11:55 | IPNPDOC ---
Date Seen The patient was seen on 09/29/20. Progress Note SUBJECTIVE: Patient feels a lot better after 4.3 L of fluids was removed from his abdomen status post paracentesis on 09/28/2020 He is tolerating his diet with no pain this morning he denies nausea vomiting fever chills white blood cell count is normal. Patient weight is decreased to 109.5 kg from his highest weight of 111.3 kg. He denies any chest pain pressure tightness lightheadedness dizziness or shortness of breath this morning OBJECTIVE: VITAL SIGNS: See below GENERAL: Eating breakfast with his legs hanging down from the side of the bed No conversational dyspnea speaks in full sentences HEENT: Anicteric. No jaundice. No cyanosis. No jugular venous distention (JVD), no thyromegaly or cervical lymphadenopathy. Moist mucous membranes. Poor dentition. LUNGS: Diminished bibasilar crackles HEART: S1, S2, irregularly irregular. Not tachycardic. ABDOMEN: Decreased distention positive bowel sounds x4 quadrants no rebound guarding No fluid wave EXTREMITIES: 1+ pitting edema no cyanosis or clubbing Laboratory data, microbiology, imaging studies have all been reviewed. ASSESSMENT AND PLAN: This is a 75-year-old male admitted on 09/24/2020 with a history of non-alcoholic liver cirrhosis, varices with banding, follows with Dr. Norton, baseline chronic kidney disease stage III, hypothyroidism, gout, reflux, abdominal aortic aneurysm, atrial fibrillation on Eliquis, diabetes, congestive heart failure, coronary artery disease, cholecystectomy, admitted for abdominal pain, found to have spontaneous bacterial peritonitis with large volume abdominal and pelvic ascites. He was started on intravenous ceftriaxone. The patient had worsening white blood cell count without fevers or chills. Abdominal distention has worsened. The patient has been started on IV Flagyl today with paracentesis ordered. Creatinine has increased from baseline stage III renal failure to now stage IV renal failure with GFR of 22.9. Active issues are as follows: Decompensated liver cirrhosis, nonalcoholic Complicated by chronic hypotension and stage IV renal failure Supportive care with midodrine IV albumin transfusions Diuresis is managed by fixture relamper Dr. Dhillon due to worsening renal function from baseline of stage III to stage IV currently Highest weight was 111.3 kg currently 109.5 kg. Congestive heart failure, compensated Despite fluid overload from decompensated liver cirrhosis Strict I's and O's Daily weights Diuresis managed by fixture relamper Spontaneous bacterial peritonitis patient is tolerating his diet he is afebrile with normal white count today with addition of IV Flagyl day #3 today he is continued on ceftriaxone which was started on admission He denies any pain today Diabetes Controlled on Levemir insulin twice daily On fingersticks [facility] with [facility] insulin sliding scale coverage [id number] renal failure. Baseline creatinine is stage III, currently has stage IV creatinine. Nephrology has been consulted due to worsening renal function in the setting of poor circulating volume from decompensated liver cirrhosis. Hypotension due to anasarca with fluid overload and decompensated liver cirrhosis and renal dysfunction. On midodrine and albumin transfusions PICC line ordered 09/29/2020 Symptomatic anemia without overt GI bleed Eliquis held due to plans for PICC line 09/29/2020 Given 1 unit RBC transfusion with appropriate increase in hemoglobin Chronic A. fib, rate controlled Eliquis held due to plans for PICC line No beta-blockers or calcium Channel blockers due to hypotension Abdominal aortic aneurysm without rupture Esophageal varices with banding. No acute complaints hemoglobin remained stable Hypothyroidism. Gout. History of gastroesophageal reflux disease. On PPI History of testicular cancer with prior right orchiectomy. Obstructive sleep apnea. Resume home CPAP settings Coronary artery disease. No acute ischemic complaints VS, I&O, 24H, Fishbone Vital Signs/I&O Vital Signs Date Time Temp Pulse Resp B/P (MAP) Pulse Ox O2 Delivery O2 Flow Rate FiO2 09/29/20 09:12 77 106/60 (75) 09/29/20 08:00 98.0 17 93 Nasal Cannula 2.0 I&O- Last 24 Hours up to 6 AM 09/29/20 06:00 Intake Total 1760 ml Output Total 5925 ml Balance -4165 ml Laboratory Data 24H LABS Laboratory Tests 2 09/28/20 16:35: Bedside Glucose (Misc Panel) 155H 09/28/20 21:49: Bedside Glucose (Misc Panel) 203H 09/29/20 04:28: Immature Granulocyte % (Auto) 1.2, Neutrophils (%) (Auto) 80.7H, Lymphocytes (%) (Auto) 7.8L, Monocytes (%) (Auto) 7.9, Eosinophils (%) (Auto) 2.0, Basophils (%) (Auto) 0.4, Neutrophils # (Auto) 7.3, Lymphocytes # (Auto) 0.7L, Monocytes # (Auto) 0.7, Eosinophils # (Auto) 0.2, Basophils # (Auto) 0.0, Nucleated Red Blood Cells % (auto) 0.0, Anion Gap 6L, Glomerular Filtration Rate 25.2L, Calcium Level 8.1L, Magnesium Level 2.5H, Total Bilirubin 1.4H, Aspartate Amino Transf (AST/SGOT) 10, Alanine Aminotransferase (ALT/SGPT) 13, Alkaline Phosphatase 138H, C-Reactive Protein, Quantitative 13.60H, Total Protein 4.9L, Albumin 2.3L, Albumin/Globulin Ratio 0.9 09/29/20 08:21: C-Reactive Protein, Quantitative 14.20H, Erythrocyte Sedimentation Rate 21H, Pr othrombin Time 17.3H, Prothromb Time International Ratio 1.37, Activated Partial Thromboplast Time 39.9H CBC/BMP Laboratory Tests 09/29/20 04:28 Microbiology Microbiology 09/27/20 Stool Occult Blood (ALEM) - Final, Complete 09/25/20 Gram Stain - Final, Complete 09/25/20 Body Fluid Culture - Final, Complete 09/24/20 Blood Culture - Preliminary, Resulted No Growth after 72 hours. All specime... VITOR LIVINGSTON MD Sep 29, 2020 11:55
[2020-09-29] MEDS ORDERED: LIDOCAINE 1% MDV 20ML VIAL As Ordered ONE (12:20)
[2020-09-29] MEDS: cefTRIAXone SOD 2 GM in D5W MINI-BAG PLUS 50 ML IV SCH (13:25)
[2020-09-29 16:00] VITALS: BP 118/60
[2020-09-29] MEDS: metroNIDAZOLE (FLAGYL) 500MG TABLET PO SCH ×2 (16:19→20:15)
[2020-09-29] MEDS: SODIUM CHLORIDE 0.9% INJ 10 ML SYR IV SCH (17:10)
--- NOTE | 2020-09-29 17:19 | REP ---
INDICATION: hypotensive poor iv access. COMPARISON: None. TECHNIQUE: The procedure was performed under the direct supervision of Dr. Andino. The risks and benefits of the procedure were explained to the patient and informed consent was obtained. The right basilic vein was localized using ultrasound guidance. The skin was prepped and draped in a sterile fashion. 1 mL of 1% lidocaine was used as a local anesthetic. Using ultrasound guidance the basilic vein was cannulated and a 0.018 guidewire was inserted and advanced to the SVC using fluoroscopic guidance, and last image hold technology. The needle was removed and a 5 [place] Helen[place] dilator and peel-away sheath was inserted over the guide wire. A 5 [place] dual lumen catheter was cut to length of 42 cm. The dilator was removed and the catheter was inserted over the guide wire with the tip ending in the SVC. The peel-away sheath was removed and the catheter was flushed with heparinized saline as per Hospital protocol. The catheter was affixed to the skin and a sterile dressing was applied. Estimated blood loss: Less than 1 mL The patient tolerated the procedure well and there were no immediate complications. 0.2 minutes of fluoro time was utilized for this procedure. FINDINGS: None IMPRESSION: PICC line insertion right basilic vein with the tip ending in the SVC. <Electronically signed by Jaden Piedra > 09/29/20 [id number] <Electronically signed by Jason Andino > 09/29/20 [id number]
[2020-09-29 20:00] VITALS: BP 102/48
[2020-09-29] MEDS: AUGMENTIN 500 MG TAB PO SCH (20:14)
[2020-09-29] MEDS: COLESEVELAM 625 MG TAB (WELCHOL) PO SCH (20:15)
[2020-09-30 04:00] VITALS: BP 95/54
[2020-09-30] MEDS: LEVOTHYROXINE 150MCG TABLET (0.15MG) PO SCH (04:57)
[2020-09-30] MEDS: SODIUM CHLORIDE 0.9% INJ 10 ML SYR IV SCH ×2 (04:58→17:31)
[2020-09-30] MEDS: SLF 3 ML SYR IV SCH ×3 (05:09→20:48)
[2020-09-30 05:15] LABS: BASO % 0.4 % (0.0-1.0); EOS # 0.2 10^3/uL (0.0-0.5); EOS % 2.4 % (0.0-3.0); HEMATOCRIT 31.9 % (42.0-52.0); HEMOGLOBIN 9.1 g/dl (13.5-17.5); LYMPH # 0.6 10^3/uL (1.5-5.0); LYMPH % 6.5 % (24.0-44.0); MEAN CORPUSCULAR HGB CONC 28.5 g/dl (32.0-36.5); MEAN CORPUSCULAR VOLUME 80.6 fl (80.0-96.0); MONO # 0.6 10^3/uL (0.0-0.8); MONO % 6.7 % (2.0-8.0); NEUTROPHILS # 7.9 10^3/uL (1.5-8.5); NEUTROPHILS % 82.9 % (36.0-66.0); PLATELET COUNT, AUTOMATED 179 10^3/uL (150-450); RED BLOOD COUNT 3.96 10^6/uL (4.30-6.10); WHITE BLOOD COUNT 9.5 10^3/uL (4.0-10.0)
[2020-09-30 05:37] LABS: ALBUMIN 2.3 GM/DL (3.2-5.2); BILIRUBIN,TOTAL 1.2 MG/DL (0.2-1.0); C REACTIVE PROTEIN QUANTITATIV 7.4 MG/DL (0.00-0.30); CALCIUM LEVEL 7.9 MG/DL (8.8-10.2); CREATININE FOR GFR 2.46 MG/DL (0.70-1.30); GLOMERULAR FILTRATION RATE 27.4 (>42); MAGNESIUM LEVEL 2.5 MG/DL (1.8-2.4); POTASSIUM SERUM 4.6 MEQ/L (3.5-5.1); TOTAL PROTEIN 4.4 GM/DL (6.4-8.2)
[2020-09-30] MEDS: HumaLOG INSULIN (NovoLOG) PER UNIT SC SCH ×4 (07:30→20:47)
[2020-09-30 08:00] VITALS: BP 109/60
[2020-09-30] MEDS: LEVEMIR (INSULIN DETEMIR) 1 UNITS/0.01ML SC SCH ×2 (08:06→21:16)
--- NOTE | 2020-09-30 08:23 | IPN ---
NEPHROLOGY PROGRESS NOTE DATE: 09/29/2020 SUBJECTIVE: Mr. Bassett is seen this morning on his bedside. He is feeling better today and reports that abdominal pain has improved. He underwent paracentesis yesterday and 4.3 liters of fluid was removed. Patient denies any dyspnea, chest pain, fever or chills. PHYSICAL EXAMINATION: VITAL SIGNS: Temperature 98 degrees Fahrenheit, heart rate 77 per minute, respiratory rate 17 per minute, blood pressure 106/60 mmHg, oxygen saturation 93% on 2 liters oxygen. GENERAL: He looks jaundiced. HEAD: Atraumatic. NECK: Supple. There is no jugular venous distention (JVD). HEART SOUNDS: Irregular in rhythm. LUNGS: With slightly diminished breath sounds at the bases. ABDOMEN: Soft, distended with ascites. Bowel sounds are present. EXTREMITIES: Without any cyanosis or clubbing. NEUROLOGIC: He is at his baseline mentation without a focal deficit. LABORATORY DATA: Today's labs show WBC 9.0, hemoglobin 8.9, hematocrit 31.4, platelets 178. Erythrocyte sedimentation rate (ESR) is 21. Sodium 142, potassium 4.9, CO2 23, BUN 74, creatinine 2.65, glucose 85, calcium 8.1. Total bilirubin is 1.4. His C-reactive protein (CRP) is slightly up at 14.2 today. PROBLEMS: 1. Acute kidney injury superimposed on chronic kidney disease. Slight improvement is noticed in his kidney function. At present, he is not receiving further intravenous (IV) albumin. Will continue to hold diuretics. 2. Hypotension. Blood pressure is still soft and he remains on midodrine 10 mg three times a day. 3. Spontaneous bacterial peritonitis (SBP). Patient remains on ceftriaxone and metronidazole for peritonitis. He seems to be clinically improving and afebrile. 4. Anemia. His anemia did improve after he was transfused 1 unit of packed red blood cells (PRBCs). 5. Cirrhosis with recurrent ascites. Patient does have nonalcoholic cirrhosis and recurrent ascites. He did have paracentesis yesterday and is likely to require intermittent paracentesis.
[2020-09-30] MEDS: DOCUSATE SODIUM 100MG CAPSULE PO SCH ×2 (09:00→20:49)
[2020-09-30] MEDS: allopurinoL 100 MG TAB PO SCH (09:48)
[2020-09-30] MEDS: AUGMENTIN 500 MG TAB PO SCH ×2 (09:48→21:14)
[2020-09-30] MEDS: PANTOPRAZOLE 40MG TAB (PROTONIX) PO SCH (09:48)
[2020-09-30] MEDS: metroNIDAZOLE (FLAGYL) 500MG TABLET PO SCH (09:48)
[2020-09-30] MEDS: MIDODRINE 5 MG TAB PO SCH ×3 (09:48→16:12)
--- NOTE | 2020-09-30 11:35 | IPNPDOC ---
Date Seen The patient was seen on 09/30/20. Progress Note SUBJECTIVE: Complained of loose bowel movements at least 3 from yesterday to today no fever chills tolerating his diet without nausea vomiting diarrhea despite not being on diuretics patient denies any shortness of breath He is abdomen looks a little bit more distended today. White count is normal I's notes reviewed OBJECTIVE: VITAL SIGNS: See below GENERAL: Lying 45 degrees in his bed no distress speaks in full sentences HEENT: Anicteric. No jaundice. No cyanosis. No jugular venous distention (JVD), no thyromegaly or cervical lymphadenopathy. Moist mucous membranes. Poor dentition. LUNGS: Diminished bibasilar crackles HEART: S1, S2, irregularly irregular. Not tachycardic. ABDOMEN: Slightly more distended tympanic positive bowel sounds x4 quadrants no rebound guarding No fluid wave EXTREMITIES: 1+ pitting edema no cyanosis or clubbing Laboratory data, microbiology, imaging studies have all been reviewed. ASSESSMENT AND PLAN: This is a 75-year-old male admitted on 09/24/2020 with a history of non-alcoholic liver cirrhosis, varices with banding, follows with Dr. Norton, baseline chronic kidney disease stage III, hypothyroidism, gout, reflux, abdominal aortic aneurysm, atrial fibrillation on Eliquis, diabetes, congestive heart failure, coronary artery disease, cholecystectomy, admitted for abdominal pain, found to have spontaneous bacterial peritonitis with large volume abdominal and pelvic ascites. He was started on intravenous ceftriaxone. The patient had worsening white blood cell count without fevers or chills. Abdominal distention has worsened. The patient has been started on IV Flagyl today with paracentesis ordered. Creatinine has increased from baseline stage III renal failure to now stage IV renal failure with GFR of 22.9. Active issues are as follows: Decompensated liver cirrhosis, nonalcoholic Complicated by chronic hypotension and stage IV renal failure Supportive care with midodrine IV albumin transfusions blacktop spreader Dr. Dhillon consulted due to worsening renal function from baseline of stage III to stage IV currently Highest weight was 111.3 kg Not on diuretics at this time but does not have any metabolic acidosis or hyperkalemia Congestive heart failure, compensated Despite fluid overload from decompensated liver cirrhosis Strict I's and O's Daily weights Fluid balance managed by blacktop spreader Not on diuretics due to worsening azotemia Diarrhea most likely antibiotic -related Check PCR for Clostridium infection Contact isolation Spontaneous bacterial peritonitis patient is tolerating his diet he is afebrile with normal white count today Status post IV ceftriaxone Currently on Augmentin Will DC Flagyl Diabetes Slight hyperglycemia on current dose of Levemir insulin twice daily Will decrease Levemir to prevent symptomatic hypoglycemia On fingersticks QA [facility] with [facility] insulin sliding scale coverage Stmyt-ic-edczylx renal failure. Baseline creatinine is stage III, currently has stage IV creatinine. Nephrology has been consulted due to worsening renal function in the setting of poor circulating volume from decompensated liver cirrhosis. Not on diuretics monitoring renal function strict I's and O's and daily weights Hypotension due to anasarca with fluid overload and decompensated liver cirrhosis and renal dysfunction. On midodrine and albumin transfusions PICC line ordered 09/29/2020 Symptomatic anemia without overt GI bleed Eliquis held due to PICC line 09/29/2020 Given 1 unit RBC transfusion with appropriate increase in hemoglobin On PPI Chronic A. fib, rate controlled Eliquis held due to PICC line No beta-blockers or calcium Channel blockers due to hypotension Resume Eliquis low-dose Abdominal aortic aneurysm without rupture Esophageal varices with banding. No acute complaints hemoglobin remained stable Hypothyroidism. Gout. History of gastroesophageal reflux disease. On PPI History of testicular cancer with prior right orchiectomy. Obstructive sleep apnea. Resume home CPAP settings Coronary artery disease. No acute ischemic complaints PICC line placed 09/29/2020 Diet renal diet CODE [facility]US [facility]&O Vital Signs Date Time Temp Pulse Resp B/P (MAP) Pulse Ox O2 Delivery O2 Flow Rate FiO2 09/30/20 08:00 96.5 84 19 109/60 (76) 94 Room Air 09/29/20 16:00 2.0 I&O- Last 24 Hours up to 6 AM 09/30/20 06:00 Intake Total 1190 ml Output Total 920 ml Balance 270 ml Laboratory Data 24H LABS Laboratory Tests 2 09/29/20 13:15: Bedside Glucose (Misc Panel) 91 09/29/20 17:01: Bedside Glucose (Misc Panel) 168H 09/29/20 20:14: Bedside Glucose (Misc Panel) 206H 09/30/20 04:59: Immature Granulocyte % (Auto) 1.1, Neutrophils (%) (Auto) 82.9H, Lymphocytes (%) (Auto) 6.5L, Monocytes (%) (Auto) 6.7, Eosinophils (%) (Auto) 2.4, Basophils (%) (Auto) 0.4, Neutrophils # (Auto) 7.9, Lymphocytes # (Auto) 0.6L, Monocytes # (Auto) 0.6, Eosinophils # (Auto) 0.2, Basophils # (Auto) 0.0, Nucleated Red Blood Cells % (auto) 0.0, Anion Gap 8, Glomerular Filtration Rate 27.4L, Calcium Level 7.9L, Magnesium Level 2.5H, Total Bilirubin 1.2H, Aspartate Amino Transf (AST/SGOT) 12, Alanine Aminotransferase (ALT/SGPT) 12, Alkaline Phosphatase 173H, C-Reactive Protein, Quantitative 7.40H, Total Protein 4.4L, Albumin 2.3L, Albumin/Globulin Ratio 1.1 09/30/20 06:44: Bedside Glucose (Misc Panel) 105 CBC/BMP Laboratory Tests 09/30/20 04:59 Microbiology Microbiology 09/27/20 Stool Occult Blood ([facility]) - Final, Complete 09/25/20 Gram Stain - Final, Complete 09/25/20 Body Fluid Culture - Final, Complete 09/24/20 Blood Culture - Final, Complete NO GROWTH AFTER 5 DAYS VITOR LIVINGSTON MD Sep 30, 2020 11:35
[2020-09-30] MEDS: APIXABAN 2.5 MG TAB (ELIQUIS) PO SCH ×2 (12:10→21:14)
[2020-09-30 16:50] VITALS: BP 118/62
[2020-09-30] MEDS: COLESEVELAM 625 MG TAB (WELCHOL) PO SCH (21:14)
[2020-09-30 22:00] VITALS: BP 110/64
--- NOTE | 2020-09-30 22:25 | IPN ---
NEPHROLOGY PROGRESS NOTE DATE: 09/30/2020 SUBJECTIVE: Mr. Bassett is seen this morning at his bedside. He is sitting in the chair today and reports of multiple loose stools through the night. He is now able to walk with the help of a walker to the bathroom. He denies any nausea or vomiting. OBJECTIVE: PHYSICAL EXAMINATION: VITAL SIGNS: Temperature 96.5 degrees Fahrenheit, heart rate 84 per minute, respiratory rate 18 per minute. Blood pressure 109/60 mm or mercury and oxygen saturation is 94% on room air. HEENT: His head is atraumatic. NECK: Supple and without JVD or thyroid enlargement. HEART: Irregular in rhythm. LUNGS: Clear to auscultation. ABDOMEN: Soft and distended with a moderate amount of ascites. Bowel sounds are normal. EXTREMITIES: Without any cyanosis or clubbing. NEUROLOGICAL: He is awake, alert and at his baseline mentation. LABORATORY STUDIES: Today's labs show a WBC count of 9.5, hemoglobin 9.1 and hematocrit 31.9. Platelet count 179. Sodium 142, potassium 4.6, CO2 21, BUN 77 and creatinine 2.46. Glucose this morning was 51, however his fingerstick blood sugar is now 149. PROBLEMS: 1. Acute kidney injury superimposed on chronic kidney disease hepatorenal problem. Kidney function has slightly improved. Electrolytes are stable. 2. Cirrhosis with recurrent ascites - The patient had his paracentesis done. He is feeling better now and is likely to require intermittent paracentesis. 3. Bacterial peritonitis - The patient is currently being treated with antibiotics. He is now switched to Augmentin. C-reactive protein is improving. 4. Hypoglycemia this morning his blood pressure was low on chemistries. Now his blood sugar is much better and he is completely asymptomatic. 5. Anemia - The patient did have a transfusion and anemia has improved and stabilized. 6. Diarrhea he continues to have loose stools, even though he is not receiving any lactulose. 7. Hypertension - blood pressure is doing better with Midodrine 10 mg three times daily.
[2020-10-01] MEDS: SLF 3 ML SYR IV SCH (05:03)
[2020-10-01 06:00] VITALS: BP 114/67
[2020-10-01] MEDS: LEVOTHYROXINE 150MCG TABLET (0.15MG) PO SCH (06:14)
[2020-10-01] MEDS: SODIUM CHLORIDE 0.9% INJ 10 ML SYR IV SCH ×2 (06:14→18:24)
[2020-10-01 06:53] LABS: BASO # 0.1 10^3/uL (0.0-0.2); BASO % 0.6 % (0.0-1.0); EOS # 0.4 10^3/uL (0.0-0.5); EOS % 4.2 % (0.0-3.0); HEMATOCRIT 34.1 % (42.0-52.0); HEMOGLOBIN 9.5 g/dl (13.5-17.5); LYMPH # 0.8 10^3/uL (1.5-5.0); LYMPH % 8.6 % (24.0-44.0); MEAN CORPUSCULAR HEMOGLOBIN 22.8 pg (27.0-33.0); MEAN CORPUSCULAR HGB CONC 27.9 g/dl (32.0-36.5); MEAN CORPUSCULAR VOLUME 81.8 fl (80.0-96.0); MONO # 0.6 10^3/uL (0.0-0.8); MONO % 6.7 % (2.0-8.0); NEUTROPHILS # 6.9 10^3/uL (1.5-8.5); NEUTROPHILS % 78.3 % (36.0-66.0); PLATELET COUNT, AUTOMATED 177 10^3/uL (150-450); RED BLOOD COUNT 4.17 10^6/uL (4.30-6.10); WHITE BLOOD COUNT 8.8 10^3/uL (4.0-10.0)
[2020-10-01 07:27] LABS: ALBUMIN 2.4 GM/DL (3.2-5.2); BILIRUBIN,TOTAL 0.9 MG/DL (0.2-1.0); CREATININE FOR GFR 2.44 MG/DL (0.70-1.30); GLOMERULAR FILTRATION RATE 27.7 (>42); MAGNESIUM LEVEL 2.6 MG/DL (1.8-2.4); POTASSIUM SERUM 4.5 MEQ/L (3.5-5.1); TOTAL PROTEIN 4.9 GM/DL (6.4-8.2)
[2020-10-01] MEDS: HumaLOG INSULIN (NovoLOG) PER UNIT SC SCH ×4 (08:39→21:00)
[2020-10-01] MEDS: LEVEMIR (INSULIN DETEMIR) 1 UNITS/0.01ML SC SCH ×2 (08:40→21:20)
[2020-10-01] MEDS: MIDODRINE 5 MG TAB PO SCH ×3 (08:40→16:09)
[2020-10-01] MEDS: APIXABAN 2.5 MG TAB (ELIQUIS) PO SCH ×2 (08:40→21:19)
[2020-10-01] MEDS: AUGMENTIN 500 MG TAB PO SCH ×2 (08:41→21:19)
[2020-10-01] MEDS: allopurinoL 100 MG TAB PO SCH (08:41)
[2020-10-01] MEDS: PANTOPRAZOLE 40MG TAB (PROTONIX) PO SCH (08:41)
[2020-10-01] MEDS: DOCUSATE SODIUM 100MG CAPSULE PO SCH ×2 (09:00→19:24)
--- NOTE | 2020-10-01 13:40 | IPNPDOC ---
Date Seen The patient was seen on 10/01/20. Progress Note SUBJECTIVE: Patient says his breathing is significantly improved after the paracentesis was done with 4.3 L removed He denies any dyspnea on exertion and said he ambulated well from his bed to the bathroom. He denies any Paroxysmal nocturnal dyspnea orthopnea. His lower extremity edema has improved. He has noticed an increase in abdominal distention which he attributes to "gas," which improves with his loose bowel movements which are formed, and not watery about 2 times a day. He denies any fever or chills . He is tolerating his diet well without nausea vomiting or abdominal pain. OBJECTIVE: VITAL SIGNS: See below GENERAL: Patient walked from bed to the bathroom without difficulty or dyspnea on exertion. No distress HEENT: Anicteric. No jaundice. No cyanosis. No jugular venous distention (JVD), no thyromegaly or cervical lymphadenopathy. Moist mucous membranes. Poor dentition. Edentulous LUNGS: Diminished no wheezing or rales HEART: S1, S2, irregularly irregular. No S3 ABDOMEN: Slightly more distended tympanic positive bowel sounds x4 quadrants no rebound guarding No fluid wave EXTREMITIES: 1+ pitting edema no cyanosis or clubbing Laboratory data, microbiology, imaging studies have all been reviewed. ASSESSMENT: This is a 75-year-old male admitted on 09/24/2020 with a history of non-alcoholic liver cirrhosis, varices with banding, follows with Dr. Norton, baseline chronic kidney disease stage III, hypothyroidism, gout, reflux, abdominal aortic aneurysm, atrial fibrillation on Eliquis, diabetes, congestive heart failure, coronary artery disease, cholecystectomy, admitted for abdominal pain, found to have spontaneous bacterial peritonitis with large volume abdominal and pelvic ascites. He was started on intravenous ceftriaxone. The patient had worsening white blood cell count without fevers or chills. Abdominal distention has worsened. The patient has been started on IV Flagyl today with paracentesis ordered. Creatinine has increased from baseline stage III renal failure to now stage IV renal failure with GFR of 22.9. Active issues are as follows: Decompensated nonalcoholic liver cirrhosis Hypotension Acute on chronic baseline of stage III renal failure, currently stage IV Congestive heart failure, compensated Spontaneous bacterial peritonitis Poor IV access status post PICC line Symptomatic anemia status post 1 unit RBC transfusion Chronic A. fib, rate controlled Abdominal aortic aneurysm without rupture Esophageal varices with banding. Hypothyroidism. Gout. History of gastroesophageal reflux disease. History of testicular cancer with prior right orchiectomy. Obstructive sleep apnea. Coronary artery disease. PICC line placed 09/29/2020 PLAN: -Patient has been transitioned from IV ceftriaxone and Flagyl to Augmentin orally. -He remains afebrile with improved abdominal pain, and tolerating his diet well. -Due to hypotension patient has received midodrine and has been off diuretics. -Nephrology is consulted for fluid management. -Despite worsening renal dysfunction from his baseline of stage III to current stage IV renal failure patient does not exhibit any metabolic acidosis hyperkalemia. -Patient has received 1 unit RBC transfusion due to symptomatic anemia, but does not have any acute GI bleed -Defer to nephrology regarding disposition. -Patient will need to be resumed on a diuretic since he is expected to have chronic fluid overload from liver cirrhosis -We will discuss with his product design engineer Dr. Norton if patient may benefit from Xifaxan in light of history of GI bleed and recent peritonitis. Diet renal diet CODE STATUS full code VS, I&O, 24H, [facility] Vital Signs/I&O Vital Signs Date Time Temp Pulse Resp B/P (MAP) Pulse Ox O2 Delivery O2 Flow Rate FiO2 10/01/20 06:00 97.2 72 16 114/67 (83) 96 Room Air 09/29/20 16:00 2.0 I&O- Last 24 Hours up to 6 AM 10/01/20 05:59 Intake Total 1860 ml Output Total 550 ml Balance 1310 ml Laboratory Data 24H LABS Laboratory Tests 2 09/30/20 17:11: Bedside Glucose (Misc Panel) 178H 09/30/20 20:41: Bedside Glucose (Misc Panel) 214H 10/01/20 06:17: Immature Granulocyte % (Auto) 1.6, Neutrophils (%) (Auto) 78.3H, Lymphocytes (%) (Auto) 8.6L, Monocytes (%) (Auto) 6.7, Eosinophils (%) (Auto) 4.2H, Basophils (%) (Auto) 0.6, Neutrophils # (Auto) 6.9, Lymphocytes # (Auto) 0.8L, Monocytes # (Auto) 0.6, Eosinophils # (Auto) 0.4, Basophils # (Auto) 0.1, Nucleated Red Blood Cells % (auto) 0.2H, Anion Gap 5L, Glomerular Filtration Rate 27.7L, Calcium Level 8.0L, Magnesium Level 2.6H, Total Bilirubin 0.9, Aspartate Amino Transf (AST/SGOT) 12, Alanine Aminotransferase (ALT/SGPT) 14, Alkaline Phosphatase 167H, Total Protein 4.9L, Albumin 2.4L, Albumin/Globulin Ratio 1.0 10/01/20 11:28: Bedside Glucose (Misc Panel) 173H CBC/BMP Laboratory Tests 10/01/20 06:17 Microbiology Microbiology 09/27/20 Stool Occult Blood ([facility]) - Final, Complete 09/25/20 Gram Stain - Final, Complete 09/25/20 Body Fluid Culture - Final, Complete 09/24/20 Blood Culture - Final, Complete NO GROWTH AFTER 5 DAYS VITOR LIVINGSTON MD Oct 01, 2020 13:40
[2020-10-01 14:00] VITALS: BP 113/54
--- NOTE | 2020-10-01 20:58 | IPN ---
NEPHROLOGY PROGRESS NOTE DATE: 10/01/2020 SUBJECTIVE: Patient was seen and examined at the bedside today morning. He is afebrile and hemodynamically stable. He was sitting up in the sofa. He feels much better. His renal function is stable. OBJECTIVE: VITAL SIGNS: Temperature 97.3 degrees Fahrenheit, blood pressure 113/54, pulse 79, respiratory rate 18, saturating 96% on room air. INTAKE/OUTPUT: Urine output recorded as 475 mL yesterday and 525 mL so far today. Weight in the bed scale is 108.9 kg. PHYSICAL EXAMINATION: GENERAL: Patient is awake, alert, oriented x3, sitting up in the sofa in no apparent distress. HEAD/NECK: Extraocular muscles intact. Pupils equally round and reactive to light. Mucous membranes are moist. Neck is supple. There is no JVD. CVS: S1, S2, regular rate. Trace edema of the bilateral lower extremities. RESPIRATORY: Chest to clear to auscultation bilaterally. Bilateral equal air entry. No rales or rhonchi. ABDOMEN: Soft, positive bowel sounds, nontender. No organomegaly. MUSCULOSKELETAL: No clubbing or cyanosis. Pulses are 2+. HARDWARE TRAINER: No focal deficit. Power is 5/5 in all extremities. LAB REVIEW: CBC showed WBC 8.8, hemoglobin 9.5, platelets 177,000. BMP shows sodium 139, potassium 4.5, chloride 112, bicarb 22, BUN 78, creatinine 2.4; it was 2.4 yesterday as well. Calcium 8 and magnesium 2.6. Total bilirubin 0.9 today. Albumin 2.4. CURRENT INPATIENT MEDICATIONS: Patient's medications were all reviewed by myself. He has been started on Augmentin 500 mg p.o. twice a day. Levaquin. No other significant change in the medications today. He is currently not on any diuretics. ASSESSMENT AND PLAN: 1. Acute renal failure superimposed on chronic kidney disease: Patient had GERARDO secondary to spontaneous bacterial peritonitis. Renal function is stable. No need of any diuretics at this time. Diuretics will probably be resumed tomorrow. 2. Decompensated cirrhosis with ascites: Patient had paracentesis done during this admission. Diuretics are on hold because of acute renal failure. 3. SBP: Patient was given I.V. antibiotics; he has been switched to Augmentin. White cell count is improving. 4. Hypotension: Patient is currently on Midodrine which is helping improve his blood pressures. 5. Chronic gout: Continue current dose of Allopurinol 100 mg p.o. daily.
[2020-10-01] MEDS: COLESEVELAM 625 MG TAB (WELCHOL) PO SCH (21:20)
[2020-10-01 22:00] VITALS: BP 110/55
[2020-10-02] MEDS: SODIUM CHLORIDE 0.9% INJ 10 ML SYR IV SCH ×2 (05:37→17:32)
[2020-10-02] MEDS: LEVOTHYROXINE 150MCG TABLET (0.15MG) PO SCH (05:37)
[2020-10-02 06:00] VITALS: BP 96/60
[2020-10-02] MEDS: HumaLOG INSULIN (NovoLOG) PER UNIT SC SCH ×4 (07:30→21:00)
[2020-10-02 07:46] LABS: BASO # 0.1 10^3/uL (0.0-0.2); BASO % 0.5 % (0.0-1.0); EOS # 0.5 10^3/uL (0.0-0.5); EOS % 4.8 % (0.0-3.0); HEMATOCRIT 34.2 % (42.0-52.0); HEMOGLOBIN 9.7 g/dl (13.5-17.5); LYMPH # 0.9 10^3/uL (1.5-5.0); LYMPH % 7.9 % (24.0-44.0); MEAN CORPUSCULAR HEMOGLOBIN 23.3 pg (27.0-33.0); MEAN CORPUSCULAR HGB CONC 28.4 g/dl (32.0-36.5); MEAN CORPUSCULAR VOLUME 82.2 fl (80.0-96.0); MONO # 0.8 10^3/uL (0.0-0.8); MONO % 7.2 % (2.0-8.0); NEUTROPHILS # 8.6 10^3/uL (1.5-8.5); NEUTROPHILS % 77.8 % (36.0-66.0); PLATELET COUNT, AUTOMATED 199 10^3/uL (150-450); RED BLOOD COUNT 4.16 10^6/uL (4.30-6.10); WHITE BLOOD COUNT 11.1 10^3/uL (4.0-10.0)
[2020-10-02 08:05] LABS: ALBUMIN 2.5 GM/DL (3.2-5.2); CALCIUM LEVEL 8.3 MG/DL (8.8-10.2); CREATININE FOR GFR 2.31 MG/DL (0.70-1.30); GLOMERULAR FILTRATION RATE 29.5 (>42); MAGNESIUM LEVEL 2.6 MG/DL (1.8-2.4); POTASSIUM SERUM 4.7 MEQ/L (3.5-5.1); TOTAL PROTEIN 4.6 GM/DL (6.4-8.2)
[2020-10-02] MEDS: MIDODRINE 5 MG TAB PO SCH ×3 (08:53→17:32)
[2020-10-02] MEDS: LEVEMIR (INSULIN DETEMIR) 1 UNITS/0.01ML SC SCH ×2 (08:53→21:39)
[2020-10-02] MEDS: AUGMENTIN 500 MG TAB PO SCH ×2 (08:53→21:38)
[2020-10-02] MEDS: APIXABAN 2.5 MG TAB (ELIQUIS) PO SCH ×2 (08:54→21:38)
[2020-10-02] MEDS: PANTOPRAZOLE 40MG TAB (PROTONIX) PO SCH (08:54)
[2020-10-02] MEDS: DOCUSATE SODIUM 100MG CAPSULE PO SCH ×2 (08:54→21:38)
[2020-10-02] MEDS: allopurinoL 100 MG TAB PO SCH (08:54)
[2020-10-02] MEDS ORDERED: TORSEMIDE (DEMADEX) 50 MG PER 1/2 TAB PO SCH (09:00)
--- NOTE | 2020-10-02 11:47 | IPNPDOC ---
Date Seen The patient was seen on 10/02/20. Progress Note SUBJECTIVE: Patient has been gaining weight since he has been off diuretics but says his breathing is improved after the paracentesis a few days ago. He denies any nausea vomiting. He has no dyspnea on exertion when ambulating around the room and to the bathroom. He denies any fever chills or abdominal pain . he is tolerating his diet OBJECTIVE: VITAL SIGNS: See below GENERAL: No distress pleasant no use of respiratory accessory muscles no conversational dyspnea HEENT: Anicteric. No jaundice. No cyanosis. No jugular venous distention (JVD), no thyromegaly or cervical lymphadenopathy. Moist mucous membranes. Poor dentition. Edentulous LUNGS: Diminished no wheezing or rales air entry is equal bilaterally HEART: S1, S2, irregularly irregular. No S3 no carotid bruit ABDOMEN: Increasingly more distended slight fluid wave but noted positive bowel sounds nontender EXTREMITIES: 1+ pitting edema no cyanosis or clubbing Laboratory data, microbiology, imaging studies have all been reviewed. ASSESSMENT: This is a 75-year-old male admitted on 09/24/2020 with a history of non-alcoholic liver cirrhosis, varices with banding, follows with Dr. Norton, baseline chronic kidney disease stage III, hypothyroidism, gout, reflux, abdominal aortic aneurysm, atrial fibrillation on Eliquis, diabetes, congestive heart failure, coronary artery disease, cholecystectomy, admitted for abdominal pain, found to have spontaneous bacterial peritonitis with large volume abdominal and pelvic ascites. He was started on intravenous ceftriaxone. The patient had worsening white blood cell count without fevers or chills. Abdominal distention has worsened. The patient has been started on IV Flagyl today with paracentesis ordered. Creatinine has increased from baseline stage III renal failure to now stage IV renal failure with GFR of 22.9. Active issues are as follows: Decompensated nonalcoholic liver cirrhosis Hypotension Acute on chronic baseline of stage III renal failure, currently stage IV Congestive heart failure, compensated Spontaneous bacterial peritonitis Poor IV access status post PICC line Symptomatic anemia status post 1 unit RBC transfusion Chronic A. fib, rate controlled Abdominal aortic aneurysm without rupture Esophageal varices with banding. Hypothyroidism. Gout. History of gastroesophageal reflux disease. History of testicular cancer with prior right orchiectomy. Obstructive sleep apnea. Coronary artery disease. PICC line placed 09/29/2020 PLAN: Stable on Augmentin for SBP. Nephrology consulted for diuretics and fluid management Monitoring for GI bleed with history of esophageal varices and decreasing hemoglobin Patient is getting more fluid overloaded but creatinine is improving Patient has been seen by Dr. Sylvester for TIPS evaluation Per Dr. Norton he is not a candidate for liver transplant He is currently on midodrine due to chronic hypotension, and if the patient proceeds to stage V for end-stage renal disease he is not a candidate for hd Due to chronic hypotension,Patient is aware of his overall poor prognosis, but Is hopeful that conservative at management with midodrine albumin infusions diuretics And timely paracentesis will let him live longer. VS, I&O, 24H, [facility] Vital Signs/I&O Vital Signs Date Time Temp Pulse Resp B/P (MAP) Pulse Ox O2 Delivery O2 Flow Rate FiO2 10/02/20 06:00 97.9 74 20 96/60 (72) 97 Room Air 09/29/20 16:00 2.0 l I&O- Last 24 Hours up to 6 AM 10/02/20 06:00 Intake Total 1408 ml Output Total 450 ml Balance 958 ml Laboratory Data 24H LABS Laboratory Tests 2 10/01/20 16:29: Bedside Glucose (Misc Panel) 166H 10/01/20 20:47: Bedside Glucose (Misc Panel) 197H 10/02/20 07:16: Immature Granulocyte % (Auto) 1.8, Neutrophils (%) (Auto) 77.8H, Lymphocytes (%) (Auto) 7.9L, Monocytes (%) (Auto) 7.2, Eosinophils (%) (Auto) 4.8H, Basophils (%) (Auto) 0.5, Neutrophils # (Auto) 8.6H, Lymphocytes # (Auto) 0.9L, Monocytes # (Auto) 0.8, Eosinophils # (Auto) 0.5, Basophils # (Auto) 0.1, Nucleated Red Blood Cells % (auto) 0.0, Anion Gap 7L, Glomerular Filtration Rate 29.5L, Calcium Level 8.3L, Magnesium Level 2.6H, Total Bilirubin 1.0, Aspartate Amino Transf (AST/SGOT) 13, Alanine Aminotransferase (ALT/SGPT) 14, Alkaline Phosphatase 192H, Total Protein 4.6L, Albumin 2.5L, Albumin/Globulin Ratio 1.2 10/02/20 07:43: Bedside Glucose (Misc Panel) 83 CBC/BMP Laboratory Tests 10/02/20 07:16 Microbiology Microbiology 09/27/20 Stool Occult Blood ([facility]) - Final, Complete 09/25/20 Gram Stain - Final, Complete 09/25/20 Body Fluid Culture - Final, Complete 09/24/20 Blood Culture - Final, Complete NO GROWTH AFTER 5 DAYS VITOR LIVINGSTON MD Oct 02, 2020 11:47
[2020-10-02 14:00] VITALS: BP 117/77
[2020-10-02] MEDS: TORSEMIDE (DEMADEX) 50 MG PER 1/2 TAB PO SCH (17:33)
--- NOTE | 2020-10-02 21:28 | IPN ---
NEPHROLOGY PROGRESS NOTE DATE: 10/02/2020 SUBJECTIVE: Patient was seen and examined at the bedside today morning. He is afebrile and hemodynamically stable. He reports that he is having worsening bloating at the abdomen and feels like he needs to get his abdomen tapped. He was already started on Torsemide 50 mg p.o. daily today morning. Otherwise he denies any active complaints. OBJECTIVE: VITAL SIGNS: Temperature 98 degrees Fahrenheit, blood pressure 117/77, pulse 76, respiratory rate 16, saturating 95% on room air. INTAKE/OUTPUT: Urine output recorded as 625 mL yesterday and 600 mL so far today since overnight. Weight in the bed scale is 110.3 kg, which is 2 kg above his weight yesterday. PHYSICAL EXAMINATION: GENERAL: Patient is awake, alert, oriented x3, sitting up in the bed in no apparent distress. HEAD/NECK: Extraocular muscles intact. Pupils equally round and reactive to light. Mucous membranes are moist. Neck is supple. There is no JVD. CVS: S1, S2, regular rate. Trace edema of the bilateral lower extremities. RESPIRATORY: Chest to clear to auscultation bilaterally. Bilateral equal air entry. No rales or rhonchi. ABDOMEN: Soft, obese, positive bowel sounds, moderate amount of ascites is noted. MUSCULOSKELETAL: No clubbing or cyanosis. Pulses are 2+. TOOL AND CUTTER GRINDER: No focal deficit. Power is 5/5 in all extremities. LAB REVIEW: CBC showed WBC 11.1, hemoglobin 9.7, platelets 199,000. BMP shows sodium 142, potassium 4.7, chloride 114, bicarb 21, BUN 75, creatinine 2.3; it was 2.4 yesterday. Calcium 8.3, magnesium 2.6. Total bilirubin 1. Alkaline phosphatase 192. Albumin 2.5. CURRENT INPATIENT MEDICATIONS: Patient's medications were all reviewed by myself. He is currently on Augmentin 500 mg p.o. twice a day. I started him on Torsemide 50 mg p.o. daily, but dose was changed to twice a day because of worsening ascites. No other significant change in the medications today. ASSESSMENT AND PLAN: 1. Acute renal failure superimposed on chronic kidney disease: Patient's renal function is stable; close to his baseline. Creatinine is 2.3. He has been restarted on diuretics. Continue to monitor the renal function. 2. Decompensated cirrhosis with ascites: Torsemide 50 mg p.o. twice a day has been restarted. Spironolactone will be started once the potassium levels come down. If needed, patient will get another paracentesis done before he is discharged. 3. SBP: Patient is currently getting Augmentin now. He is allergic to quinolones. 4. Hypotension: Patient has chronic hypotension which is controlled with Midodrine.
[2020-10-02] MEDS: COLESEVELAM 625 MG TAB (WELCHOL) PO SCH (21:38)
[2020-10-02 22:00] VITALS: BP 102/59
[2020-10-03] VITALS (10 sets, daily range): BP systolic 101–127; BP diastolic 57–64
[2020-10-03] MEDS: LEVOTHYROXINE 150MCG TABLET (0.15MG) PO SCH (06:03)
[2020-10-03] MEDS: SODIUM CHLORIDE 0.9% INJ 10 ML SYR IV SCH ×2 (06:04→20:00)
[2020-10-03 06:37] LABS: BASO # 0.1 10^3/uL (0.0-0.2); BASO % 0.5 % (0.0-1.0); EOS # 0.4 10^3/uL (0.0-0.5); EOS % 2.8 % (0.0-3.0); HEMOGLOBIN 10.2 g/dl (13.5-17.5); LYMPH % 8.2 % (24.0-44.0); MEAN CORPUSCULAR HGB CONC 27.6 g/dl (32.0-36.5); MEAN CORPUSCULAR VOLUME 83.5 fl (80.0-96.0); MONO # 0.8 10^3/uL (0.0-0.8); MONO % 6.6 % (2.0-8.0); NEUTROPHILS # 9.9 10^3/uL (1.5-8.5); NEUTROPHILS % 80.1 % (36.0-66.0); PLATELET COUNT, AUTOMATED 218 10^3/uL (150-450); RED BLOOD COUNT 4.43 10^6/uL (4.30-6.10); WHITE BLOOD COUNT 12.3 10^3/uL (4.0-10.0)
[2020-10-03 07:07] LABS: ALBUMIN 2.6 GM/DL (3.2-5.2); BILIRUBIN,TOTAL 1.3 MG/DL (0.2-1.0); CALCIUM LEVEL 7.8 MG/DL (8.8-10.2); CREATININE FOR GFR 2.41 MG/DL (0.70-1.30); GLOMERULAR FILTRATION RATE 28.1 (>42); MAGNESIUM LEVEL 2.4 MG/DL (1.8-2.4); POTASSIUM SERUM 4.6 MEQ/L (3.5-5.1); TOTAL PROTEIN 4.7 GM/DL (6.4-8.2)
[2020-10-03] MEDS ORDERED: CEFOTAXIME SOD 2 GM in D5W MINI-BAG PLUS 50 ML IV SCH (07:10)
[2020-10-03] MEDS: HumaLOG INSULIN (NovoLOG) PER UNIT SC SCH ×4 (07:30→22:17)
[2020-10-03] MEDS: LEVEMIR (INSULIN DETEMIR) 1 UNITS/0.01ML SC SCH ×2 (09:00→22:31)
[2020-10-03] MEDS: CEFEPIME HCL 2 GM in D5W MINI-BAG PLUS 50 ML IV SCH ×2 (10:11→22:31)
[2020-10-03] MEDS: TORSEMIDE (DEMADEX) 50 MG PER 1/2 TAB PO SCH ×2 (10:11→17:05)
[2020-10-03] MEDS: MIDODRINE 5 MG TAB PO SCH ×3 (10:12→17:05)
[2020-10-03] MEDS: DOCUSATE SODIUM 100MG CAPSULE PO SCH ×2 (10:12→22:30)
[2020-10-03] MEDS: allopurinoL 100 MG TAB PO SCH (10:13)
[2020-10-03] MEDS: PANTOPRAZOLE 40MG TAB (PROTONIX) PO SCH (10:13)
[2020-10-03] MEDS: SODIUM CHLORIDE 0.9% INJ 10 ML SYR IV PRN ×3 (11:51→23:30)
[2020-10-03 12:20] LABS: INR 1.38; PARTIAL THROMBOPLASTIN TIME 38.4 SECONDS (25.9-37.0); PROTHROMBIN TIME 17.4 SECONDS (12.7-14.5)
--- NOTE | 2020-10-03 12:22 | IPN ---
NEPHROLOGY PROGRESS NOTE DATE: 10/03/2020 SUBJECTIVE: Patient was seen and examined at the bedside today morning. He was sitting up in the bed. He does report abdominal bloating and mild amount of pain in the lower abdomen. He was restarted on diuretics. He reports that his urine output was slightly better yesterday. His leukocytosis is getting worse and currently he is on oral Augmentin for spontaneous bacterial peritonitis (SBP). Patient also feels like he might need another paracentesis because of worsening abdominal distention. OBJECTIVE: VITAL SIGNS: Temperature 98.2 degrees Fahrenheit, blood pressure 101/57, pulse 77, respiratory rate 18, saturating 96% on room air. INTAKE AND OUTPUT: Urine output recorded as 800 mL yesterday, 600 mL so far today since overnight. Weight in the bed scale is 111.2 kg. PHYSICAL EXAMINATION: GENERAL: Patient is awake, alert, oriented times three, laying in bed, no apparent distress. HEAD AND NECK EXAM: Extraocular muscles intact. Pupils equally round and reactive to light. Mucous membranes are moist. Neck is supple. Mildly elevated jugular venous distention (JVD). CARDIOVASCULAR: S1, S2. Regular rate. 1+ edema of the bilateral lower extremities. RESPIRATORY: Chest is clear to auscultation bilaterally. Bilateral equal air entry. No rales or rhonchi. ABDOMEN: Soft, obese. Positive abdominal wall edema, especially in the panus. Moderate amount of ascites is noted. MUSCULOSKELETAL: No clubbing or cyanosis. Pulses are 2+. CENTRAL NERVOUS SYSTEM (UPHOLSTERY CLEANER): No focal deficits. Power is 5/5 in all extremities. LABORATORY STUDIES: CBC showed WBC 12.3, hemoglobin 10.2, platelets 218. BMP showed sodium 139, potassium 4.6, chloride 112, bicarbonate 20, BUN 76, creatinine 2.4, it was 2.3 yesterday, calcium 7.8. Total bilirubin 1.3, AST 15, ALT 15, alkaline phosphatase 196, albumin 2.6. CURRENT INPATIENT MEDICATIONS: Patient's medications were all reviewed by myself. His oral Augmentin was stopped. He has been restarted on cefepime 2 grams intravenous (IV) every12 hours. He continues to be on midodrine. Torsemide dose was increased to 50 mg by mouth twice a day yesterday. ASSESSMENT AND PLAN: 1. Acute renal failure superimposed on chronic kidney disease. Patient's renal function has improved. He is close to his baseline. His creatinine is stable at around 2.3 to 2.4. Diuretics had to be resumed because of worsening abdominal wall edema, ascites and lower extremity edema with weight gain. Continue current dose of torsemide at this time. Monitor renal function closely and treat spontaneous bacterial peritonitis (SBP) aggressively to prevent further worsening of renal function. 2. Spontaneous bacterial peritonitis (SBP). Patient was on oral Augmentin. White cell count is getting worse. Patient has been started on IV cefepime now. He will need another therapeutic paracentesis and peritoneal fluid cell count and cultures along with gram stain. 3. Chronic hypotension. Continue current dose of midodrine. 4. Decompensated cirrhosis with ascites. Continue torsemide. Spironolactone is not being given because of recent hyperkalemia. 5. Chronic gout. Continue current dose of allopurinol.
--- NOTE | 2020-10-03 16:19 | IPNPDOC ---
Date Seen The patient was seen on 10/03/20. Progress Note SUBJECTIVE: Despite increasing weight and abdominal distention , patient denies any shortness of breath dyspnea on exertion. No fever chills nausea vomiting tolerating his diet. He denies any abdominal pain OBJECTIVE: VITAL SIGNS: See below GENERAL: Sitting on the side of the bed eating his breakfast No distress speaks in full sentences HEENT: Anicteric. No jaundice. No cyanosis. No jugular venous distention (JVD), no thyromegaly or cervical lymphadenopathy. No tracheal deviation no stridor no carotid bruit moist mucous membranes. Edentulous LUNGS: Diminished clear to auscultation HEART: S1, S2, irregularly irregular. ABDOMEN: distended positive fluid wave positive bowel sounds x4 quadrants nontender EXTREMITIES: 1+ pitting edema no cyanosis or clubbing Laboratory data, microbiology, imaging studies have all been reviewed. ASSESSMENT: This is a 75-year-old male admitted on 09/24/2020 with a history of non-alcoholic liver cirrhosis, varices with banding, follows with Dr. Norton, baseline chronic kidney disease stage III, hypothyroidism, gout, reflux, abdominal aortic aneurysm, atrial fibrillation on Eliquis, diabetes, congestive heart failure, coronary artery disease, cholecystectomy, admitted for abdominal pain, found to have spontaneous bacterial peritonitis with large volume abdominal and pelvic ascites. He was started on intravenous ceftriaxone. The patient had worsening white blood cell count without fevers or chills. Abdominal distention has worsened. The patient has been started on IV Flagyl today with paracentesis ordered. Creatinine has increased from baseline stage III renal failure to now stage IV renal failure with GFR of 22.9. Active issues are as follows: Spontaneous bacterial peritonitis -Patient was treated with IV ceftriaxone and Flagyl with normal white count - since transitioning to Augmentin patient's white count increased to 12.4 -Restarted back on IV antibiotics with IV cefepime -Paracentesis in the morning 10/04/2020 after holding Eliquis for 48 hours Decompensated nonalcoholic liver cirrhosis with chronic hypotension -Patient has been resumed back on his home dose of torsemide 50 twice daily by framing inspector Dr. Rodriguez. -He has received albumin transfusions and midodrine to stabilize his blood pressure Acute on chronic baseline of stage III renal failure, currently stage IV -Managed by nephrology Congestive heart failure, compensated -Back on his diuretic strict I's and O's Daily weights fluid restriction Poor IV access - status post PICC line -Due to leukocytosis recheck blood cultures. Symptomatic anemia -status post 1 unit RBC transfusion Chronic A. fib, rate controlled -Not on beta-blockers due to chronic hypotension Abdominal aortic aneurysm without rupture Esophageal varices with banding. Hypothyroidism. Gout. History of gastroesophageal reflux disease. History of testicular cancer with prior right orchiectomy. Obstructive sleep apnea. Coronary artery disease. VS, I&O, 24H, Fishbone Vital Signs/I&O Vital Signs Date Time Temp Pulse Resp B/P (MAP) Pulse Ox O2 Delivery O2 Flow Rate FiO2 10/03/20 14:00 96.7 70 18 122/57 (78) 94 Room Air 09/29/20 16:00 2.0 I&O- Last 24 Hours up to 6 AM0 10/03/20 06:00 Intake Total 1545 ml Output Total 850 ml Balance 695 ml Laboratory Data 24H LABS Laboratory Tests 2 10/02/20 16:34: Bedside Glucose (Misc Panel) 178H 10/02/20 20:42: Bedside Glucose (Misc Panel) 190H 10/03/20 06:06: Immature Granulocyte % (Auto) 1.8, Neutrophils (%) (Auto) 80.1H, Lymphocytes (%) (Auto) 8.2L, Monocytes (%) (Auto) 6.6, Eosinophils (%) (Auto) 2.8, Basophils (%) (Auto) 0.5, Neutrophils # (Auto) 9.9H, Lymphocytes # (Auto) 1.0L, Monocytes # (Auto) 0.8, Eosinophils # (Auto) 0.4, Basophils # (Auto) 0.1, Nucleated Red Blood Cells % (auto) 0.0, Anion Gap 7L, Glomerular Filtration Rate 28.1L, Calcium Level 7.8L, Magnesium Level 2.4, Total Bilirubin 1.3H, Aspartate Amino Transf (AST/SGOT) 15, Alanine Aminotransferase (ALT/SGPT) 15, Alkaline Phosphatase 196H, Total Protein 4.7L, Albumin 2.6L, Albumin/Globulin Ratio 1.2 10/03/20 11:40: Bedside Glucose (Misc Panel) 199H 10/03/20 11:44: Prothrombin Time 17.4H, Prothromb Time International Ratio 1.38, Activated Partial Thromboplast Time 38.4 CBC/BMP Laboratory Tests 10/03/20 06:06 Microbiology Microbiology 09/27/20 Stool Occult Blood ([facility]) - Final, Complete 09/25/20 Gram Stain - Final, Complete 09/25/20 Body Fluid Culture - Final, Complete 09/24/20 Blood Culture - Final, Complete NO GROWTH AFTER 5 DAYS VITOR LIVINGSTON MD Oct 03, 2020 16:19
[2020-10-03] MEDS: COLESEVELAM 625 MG TAB (WELCHOL) PO SCH (22:30)
[2020-10-04] VITALS (9 sets, daily range): BP systolic 90–111; BP diastolic 36–80
[2020-10-04] MEDS: SODIUM CHLORIDE 0.9% INJ 10 ML SYR IV PRN ×4 (04:24→23:32)
[2020-10-04] MEDS: LEVOTHYROXINE 150MCG TABLET (0.15MG) PO SCH (06:21)
[2020-10-04] MEDS: SODIUM CHLORIDE 0.9% INJ 10 ML SYR IV SCH ×2 (06:21→18:18)
[2020-10-04 06:47] LABS: BASO % 0.5 % (0.0-1.0); EOS # 0.2 10^3/uL (0.0-0.5); EOS % 2.6 % (0.0-3.0); HEMATOCRIT 32.7 % (42.0-52.0); HEMOGLOBIN 9.2 g/dl (13.5-17.5); LYMPH # 0.7 10^3/uL (1.5-5.0); MEAN CORPUSCULAR HEMOGLOBIN 23.3 pg (27.0-33.0); MEAN CORPUSCULAR HGB CONC 28.1 g/dl (32.0-36.5); MEAN CORPUSCULAR VOLUME 82.8 fl (80.0-96.0); MONO # 0.6 10^3/uL (0.0-0.8); MONO % 6.8 % (2.0-8.0); NEUTROPHILS # 6.5 10^3/uL (1.5-8.5); NEUTROPHILS % 79.7 % (36.0-66.0); PLATELET COUNT, AUTOMATED 175 10^3/uL (150-450); RED BLOOD COUNT 3.95 10^6/uL (4.30-6.10); WHITE BLOOD COUNT 8.1 10^3/uL (4.0-10.0)
[2020-10-04 07:09] LABS: ALBUMIN 2.8 GM/DL (3.2-5.2); BILIRUBIN,TOTAL 1.6 MG/DL (0.2-1.0); CREATININE FOR GFR 2.25 MG/DL (0.70-1.30); GLOMERULAR FILTRATION RATE 30.4 (>42); MAGNESIUM LEVEL 2.5 MG/DL (1.8-2.4); POTASSIUM SERUM 4.2 MEQ/L (3.5-5.1); TOTAL PROTEIN 4.6 GM/DL (6.4-8.2)
[2020-10-04] MEDS: DOCUSATE SODIUM 100MG CAPSULE PO SCH ×2 (07:27→22:18)
[2020-10-04] MEDS: allopurinoL 100 MG TAB PO SCH (08:49)
[2020-10-04] MEDS: SPIRONOLACTONE 25 MG TAB PO SCH (08:49)
[2020-10-04] MEDS: PANTOPRAZOLE 40MG TAB (PROTONIX) PO SCH (08:49)
[2020-10-04] MEDS: MIDODRINE 5 MG TAB PO SCH ×3 (08:49→16:29)
[2020-10-04] MEDS: TORSEMIDE (DEMADEX) 50 MG PER 1/2 TAB PO SCH ×2 (08:49→16:29)
[2020-10-04] MEDS: CEFEPIME HCL 2 GM in D5W MINI-BAG PLUS 50 ML IV SCH ×2 (08:49→22:20)
[2020-10-04] MEDS: HumaLOG INSULIN (NovoLOG) PER UNIT SC SCH ×4 (08:49→22:18)
[2020-10-04] MEDS: LEVEMIR (INSULIN DETEMIR) 1 UNITS/0.01ML SC SCH ×2 (08:50→22:20)
--- NOTE | 2020-10-04 12:23 | IPN ---
PROGRESS NOTE DATE: 10/04/2020 SUBJECTIVE: The patient was seen and examined at the bedside today morning. The patient was upset with the nursing staff, for some reason he wants to sign out against medical advice now. I sat down and talked to the patient and explained to him that he has an infection in the abdomen, he needs to get his ascitic tap done and he was also in kidney failure and we need to wait for his kidney function to improve further. The patient finally agreed to stay after reassurance. OBJECTIVE: VITAL SIGNS: Temperature is 97.7 degrees Fahrenheit, blood pressure is 90/42, pulse is 64, respiratory rate is 17, saturating 93% on room air. INTAKE AND OUTPUT: Urine output recorded as 775 ml yesterday, 850 ml so far today since overnight. Weight on the bed scale is 111.9 kg. GENERAL: Patient is awake, alert and oriented x3, sitting up in the bed, in no apparent distress. HEAD AND NECK: Extraocular muscles intact. Pupils equally round and reactive to light. Mucous membranes are moist. Neck is supple. There is no significant JVD. CARDIOVASCULAR: S1 and S2, irregular rate. There is 1+ edema of the bilateral lower extremities. RESPIRATORY: Mildly decreased breath sounds at the bases with mild inspiratory crackles. ABDOMEN: Soft, obese, a moderate amount of ascites. Abdominal wall edema especially in the pannus at the abdomen was noted. MUSCULOSKELETAL: No clubbing or cyanosis. There is 1+ edema of the bilateral lower extremities as mentioned above. MANAGER INTERNSHIP: No focal deficit. Power is 5/5 in all extremities. LABORATORY DATA: CBC showed a WBC of 8.1, hemoglobin of 9.2, platelets are 175,000. BMP showed a sodium of 140, potassium of 4.2, chloride 112, bicarbonate 19, BUN 78, creatinine is 2.2. It was 2.4 yesterday. Calcium is 8. Magnesium is 2.5. Total bilirubin is 1.6. Albumin is 2.8. CURRENT INPATIENT MEDICATIONS: The patient's medications were all reviewed by myself. He continues to be on IV Cefepime at this time. He was started yesterday. Insulin Levemir dose has been decreased to 25 units twice a day. I have started the patient on Spironolactone 25 mg p.o. daily. ASSESSMENT AND PLAN: 1. Acute renal failure superimposed on chronic kidney disease. The patient was started on albumin yesterday. His creatinine is further improved to 2.2 today. Continue current dose of Midodrine. 2. Spontaneous bacterial peritonitis. Patient is currently on Cefepime, the white cell count has started improving again. He will need at least five days of IV antibiotics or if he goes home he will need to finish oral antibiotics with third generation cephalosporin. 3. Chronic hypotension. Continue Midodrine. 4. Decompensated cirrhosis with ascites. Continue current dose of torsemide, low dose of spironolactone has been added. He is going to get paracentesis done today. 5. Chronic gout secondary to chronic kidney disease, continue current dose of Allopurinol at this time.
--- NOTE | 2020-10-04 14:28 | IPNPDOC ---
Subjective Date Seen The patient was seen on 10/04/20. Subjective Chief Complaint/HPI Patient is upset this morning he is unhappy with the care that he is getting here he wants to sign out AMA after his paracentesis. He especially unhappy with the nursing care that he is getting here says that he has been here for many days and now he cannot stay in another night in the hospital. I discussed with him all the problems that is going on and I advised him not to sign out AMA because because of his persistent infection and he may become septic, develop hepatic encephalopathy or even . He is adamant about signing out AMA after the paracentesis this afternoon. If he does sign out AMA I will send prescriptions for antibiotics to his pharmacy. I did say that depending of on his acetic fluid study if he is infection he is getting better I may be able to discharge him in 1 or 2 days. Objective Physical Examination General Exam: Positive: Alert, Cooperative, No Acute Distress Eye Exam: Positive: PERRLA, Conjunctiva & lids normal ENT Exam: Positive: Atraumatic, Mucous membr. moist/pink Neck Exam: Positive: Supple Chest Exam: Positive: Clear to auscultation, Diminished (In both the bases) Heart Exam: Positive: Rate Normal, Regular Rhythm, Normal S1, Normal S2; Negative: Murmurs, Rubs Abdomen Exam: Positive: Normal bowel sounds, Soft, Tenderness, Other (Severe distention large amount of ascites) Extremity Exam: Positive: Edema Neuro Exam: Positive: Normal Speech, Strength at 5/5 X4 ext, Normal Tone Psych Exam: Positive: Memory Intact, Oriented x 3 Assessment /Plan Assessment This is a 75-year-old male admitted on 09/24/2020 with a past medical history history of non-alcoholic liver cirrhosis, varices with banding, ascites with paracentesis every 2 weeks since April [address] Norton, baseline chronic kidney disease stage III, hypothyroidism, gout, reflux, abdominal aortic aneurysm, atrial fibrillation on Eliquis, diabetes, congestive heart failure, coronary artery disease was admitted for abdominal pain, found to have spontaneous bacterial peritonitis with large volume abdominal and pelvic ascites. Patient was initially treated with ceftriaxone and Flagyl and had paracentesis on 09/27/2020. He was subsequently switched to Augmentin however patient's white count increased after that so he was restarted back on IV antibiotics cefepime. Patient is planned to go for another paracentesis on 10/04/2020. Spontaneous bacterial peritonitis Continue IV cefepime Decompensated nonalcoholic liver cirrhosis with ascites, varices Paracentesis on 10/04/2020 Patient has been resumed back on his home dose of torsemide 50 twice daily by pattern grader supervisor Dr. Rodriguez. He has received albumin transfusions and midodrine to stabilize his blood pressure Acute on chronic baseline of stage III renal failure, currently stage IV Managed by nephrology Chronic hypotension due to cirrhosis of liver On midodrine Congestive heart failure, compensated Back on his diuretic strict I's and O's Daily weights fluid restriction Acute on chronic anemia status post 1 unit RBC transfusion Chronic A. fib, rate controlled Not on beta-blockers due to chronic hypotension Will resume Eliquis after paracentesis Bladder lesion Dr. Cain, from urology, evaluated the patient He is recommended out patient cystoscopy to further characterize the lesion noted incidentally on the CT scan. Diabetes Continue Levemir and lispro Hypothyroid continue Synthroid Gout/ hyperuricemia Continue allopurinol Other medical problems; Abdominal aortic aneurysm without rupture Esophageal varices with banding. History of gastroesophageal reflux disease. History of testicular cancer with prior right orchiectomy. Obstructive sleep apnea does not use any CPAP or BiPAP Coronary artery disease. Plan/VTE VTE Prophylaxis Ordered?: Yes (TEDS, sequentials, Eliquis) VS, I&O, 24H, Fishbone Vital Signs/I&O Vital Signs Date Time Temp Pulse Resp B/P (MAP) Pulse Ox O2 Delivery O2 Flow Rate FiO2 10/04/20 12:22 111/80 (90) 10/04/20 08:51 71 10/04/20 06:33 97.7 17 93 Room Air 09/29/20 16:00 2.0 I&O- Last 24 Hours up to 6 AM 10/04/20 06:00 Intake Total 1985.0 ml Output Total 975 ml Balance 1010.0 ml Laboratory Data 24H LABS Laboratory Tests 2 10/03/20 16:31: Bedside Glucose (Misc Panel) 180H 10/03/20 20:36: Bedside Glucose (Misc Panel) 168H 10/04/20 06:28: Immature Granulocyte % (Auto) 1.4, Neutrophils (%) (Auto) 79.7H, Lymphocytes (%) (Auto) 9.0L, Monocytes (%) (Auto) 6.8, Eosinophils (%) (Auto) 2.6, Basophils (%) (Auto) 0.5, Neutrophils # (Auto) 6.5, Lymphocytes # (Auto) 0.7L, Monocytes # (Auto) 0.6, Eosinophils # (Auto) 0.2, Basophils # (Auto) 0.0, Nucleated Red Blood Cells % (auto) 0.0, Anion Gap 9, Glomerular Filtration Rate 30.4L, Calcium Level 8.0L, Magnesium Level 2.5H, Total Bilirubin 1.6H, Aspartate Amino Transf (AST/SGOT) 13, Alanine Aminotransferase (ALT/SGPT) 13, Alkaline Phosphatase 169H, Total Protein 4.6L, Albumin 2.8L, Albumin/Globulin Ratio 1.6 10/04/20 12:00: Bedside Glucose (Misc Panel) 121H CBC/BMP Laboratory Tests 10/04/20 06:28 Microbiology Microbiology 10/04/20 Blood Culture, Received Pending 10/04/20 Blood Culture, Received Pending 09/27/20 Stool Occult Blood ([facility]) - Final, Complete 09/25/20 Gram Stain - Final, Complete 09/25/20 Body Fluid Culture - Final, Complete 09/24/20 Blood Culture - Final, Complete NO GROWTH AFTER 5 DAYS ALEX SOFIA MD Oct 04, 2020 14:28
[2020-10-04] MEDS ORDERED: SODIUM BICARBONATE 8.4% INJ 50MEQ 50 ML VIAL As Ordered ONE (15:05)
[2020-10-04 16:16] LABS: APPEARANCE, BODY FLUID CLEAR (CLEAR); PERITONEAL FL COLOR PALE YELLOW (COLORLESS); SOURCE, BODY FLUID PERITONEAL
[2020-10-04 17:01] LABS: SOURCE, BODY FLUID ALBUMIN PERITONEAL; SOURCE, BODY FLUID GLUCOSE PERITONEAL; SOURCE, BODY FLUID TOT PROTEIN PERITONEAL; TOTAL PROTEIN, BODY FLUID 0.8 G/DL (NOT ESTABLISHED)
--- NOTE | 2020-10-04 17:58 | REP ---
INDICATION: therapeutic /cirrhosis ascites The patient has a history of ascites COMPARISON: None. TECHNIQUE: The procedure was performed by Celestina Ospina [facility], under the direct supervision of Dr. Marrero The risks and benefits of the procedure were explained to the patient and an informed consent was obtained both verbally and written. Directly prior to the start of the procedure a formal time-out was completed in the procedure room. The largest pocket of fluid was localized in the right flank using ultrasound guidance. The skin was prepped and draped in a sterile fashion. Eleven ML of buffered lidocaine was used as a local anesthetic. An 8-Latvian multi side-hole catheter was inserted using trocar technique. FINDINGS: A total of 6900 mL of yellow ascites was removed, 1300 mL was sent to the lab for further analysis, and the rest was discarded. The patient tolerated the procedure well and there were no immediate complications. After the appropriate amount of monitored convalescence, the patient was discharged from the department. IMPRESSION: Ultrasound-guided paracentesis with removal of 6900 mL of yellow ascites. <Electronically signed by Celestina Ospina > 10/04/20 1711 <Electronically signed by Chucho Marrero > 10/04/20 1641
[2020-10-04] MEDS: COLESEVELAM 625 MG TAB (WELCHOL) PO SCH (22:18)
[2020-10-05 01:26] VITALS: BP 101/57
[2020-10-05] MEDS: SODIUM CHLORIDE 0.9% INJ 10 ML SYR IV PRN ×3 (01:38→06:33)
[2020-10-05 03:25] VITALS: BP 96/50
[2020-10-05 06:00] VITALS: BP 101/53
[2020-10-05] MEDS: LEVOTHYROXINE 150MCG TABLET (0.15MG) PO SCH (06:32)
[2020-10-05] MEDS: SODIUM CHLORIDE 0.9% INJ 10 ML SYR IV SCH (06:32)
[2020-10-05 06:55] LABS: BASO % 0.4 % (0.0-1.0); EOS # 0.2 10^3/uL (0.0-0.5); EOS % 2.6 % (0.0-3.0); HEMATOCRIT 32.4 % (42.0-52.0); HEMOGLOBIN 9.1 g/dl (13.5-17.5); LYMPH # 0.8 10^3/uL (1.5-5.0); MEAN CORPUSCULAR HEMOGLOBIN 23.5 pg (27.0-33.0); MEAN CORPUSCULAR HGB CONC 28.1 g/dl (32.0-36.5); MEAN CORPUSCULAR VOLUME 83.7 fl (80.0-96.0); MONO # 0.5 10^3/uL (0.0-0.8); MONO % 6.5 % (2.0-8.0); NEUTROPHILS # 5.7 10^3/uL (1.5-8.5); NEUTROPHILS % 78.5 % (36.0-66.0); PLATELET COUNT, AUTOMATED 172 10^3/uL (150-450); RED BLOOD COUNT 3.87 10^6/uL (4.30-6.10); WHITE BLOOD COUNT 7.2 10^3/uL (4.0-10.0)
[2020-10-05 07:18] LABS: ALBUMIN 2.8 GM/DL (3.2-5.2); BILIRUBIN,TOTAL 1.3 MG/DL (0.2-1.0); CALCIUM LEVEL 7.8 MG/DL (8.8-10.2); CREATININE FOR GFR 2.32 MG/DL (0.70-1.30); GLOMERULAR FILTRATION RATE 29.4 (>42); MAGNESIUM LEVEL 2.4 MG/DL (1.8-2.4); POTASSIUM SERUM 4.3 MEQ/L (3.5-5.1); TOTAL PROTEIN 4.6 GM/DL (6.4-8.2)
[2020-10-05] MEDS: HumaLOG INSULIN (NovoLOG) PER UNIT SC SCH (07:30)
[2020-10-05] MEDS: SPIRONOLACTONE 25 MG TAB PO SCH (09:00)
[2020-10-05] MEDS: TORSEMIDE (DEMADEX) 50 MG PER 1/2 TAB PO SCH (09:00)
[2020-10-05] MEDS: LEVEMIR (INSULIN DETEMIR) 1 UNITS/0.01ML SC SCH (09:00)
[2020-10-05 09:44] VITALS: BP 75/43
[2020-10-05] MEDS: allopurinoL 100 MG TAB PO SCH (09:47)
[2020-10-05] MEDS: CEFEPIME HCL 2 GM in D5W MINI-BAG PLUS 50 ML IV SCH (09:47)
[2020-10-05] MEDS: DOCUSATE SODIUM 100MG CAPSULE PO SCH (09:47)
[2020-10-05] MEDS: PANTOPRAZOLE 40MG TAB (PROTONIX) PO SCH (09:47)
[2020-10-05] MEDS: MIDODRINE 5 MG TAB PO SCH ×2 (09:47→11:53)
--- NOTE | 2020-10-05 11:03 | DS.PDOC ---
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 Obstructive sleep apnea does not use any CPAP or BiPAP COMPLICATIONS/CHIEF COMPLAINT: Spontqneous Bacterial Peritonitis. HOSPITAL COURSE: This is a 75-year-old male admitted on 09/24/2020 with a past medical history history of non-alcoholic liver cirrhosis, varices with banding, ascites with paracentesis every 2 weeks since April [address] Norton, baseline chronic kidney disease stage III, hypothyroidism, gout, reflux, abdominal aortic aneurysm, atrial fibrillation on Eliquis, diabetes, congestive heart failure, coronary artery disease was admitted for abdominal pain, found to have spontaneous bacterial peritonitis with large volume abdominal and pelvic ascites. Patient was initially treated with ceftriaxone and Flagyl and had paracentesis on 09/27/2020. He was subsequently switched to Augmentin however patient's white count increased after that so he was restarted back on IV antibiotics cefepime. Patient had another paracentesis on 10/04/2020 which shows improvement in WBC count. Spontaneous bacterial peritonitis received ceftriaxone for 5 days 09/25 to 09/29 then augmentin x 4 days 09/29 to 09/29 Wbc again started rising so changed to cefipime 10/03 - 10/05 will discharge with cefdinir x 5 days. Follow-up final acetic fluid cultures Decompensated nonalcoholic liver cirrhosis with ascites, varices Paracentesis on 10/04/2020 Patient has been resumed back on his home dose of torsemide 50 twice daily by art specialist Dr. Rodriguez. He has received albumin transfusions and midodrine to stabilize his blood pressure Acute on chronic baseline of stage III renal failure, currently stage IV Managed by nephrology Chronic hypotension due to cirrhosis of liver On midodrine Congestive heart failure, compensated Back on his diuretic strict I's and O's Daily weights fluid restriction Acute on chronic anemia status post 1 unit RBC transfusion Chronic A. fib, rate controlled Not on beta-blockers due to chronic hypotension Will resume Eliquis after paracentesis Bladder lesions 2 areas of bladder wall thickening seen in the CT scan of the abdomen which is concerning for bladder tumors Dr. Cain, from urology, evaluated the patient He is recommended out patient cystoscopy to further characterize the lesion noted incidentally on the CT scan. Diabetes Continue Levemir and lispro Hypothyroid continue Synthroid Gout/ hyperuricemia Continue allopurinol DISCHARGE MEDICATIONS: Please see below. ALLERGIES: Please see below. PHYSICAL EXAMINATION ON DISCHARGE: VITAL SIGNS: Please see below. General Exam: Positive: Alert, Cooperative, No Acute Distress Eye Exam: Positive: PERRLA, Conjunctiva & lids normal ENT Exam: Positive: Atraumatic, Mucous membr. moist/pink Neck Exam: Positive: Supple Chest Exam: Positive: Clear to auscultation, Diminished (In both the bases) Heart Exam: Positive: Rate Normal, Regular Rhythm, Normal S1, Normal S2; Negative: Murmurs, Rubs Abdomen Exam: Positive: Normal bowel sounds, Soft, Tenderness, Other (Severe distention large amount of ascites) Extremity Exam: Positive: Edema Neuro Exam: Positive: Normal Speech, Strength at 5/5 X4 ext, Normal Tone Psych Exam: Positive: Memory Intact, Oriented x 3 LABORATORY DATA: Please see below. ACTIVITY: [As tolerated]. DIET: Carb consistent, fluid restriction 1.8 L DISCHARGE PLAN: Home DISPOSITION: . DISCHARGE INSTRUCTIONS: Dr. Rodriguez in 1 week PMD in 2 weeks Needs referral to urology Follow-up with radiology for 2 weekly paracentesis as per outpatient schedule ITEMS TO FOLLOWUP ON ON OUTPATIENT: Final acetic fluid cultures DISCHARGE CONDITION: [Stable]. TIME SPENT ON DISCHARGE: 35 minutes. Vital Signs/I&Os Vital Signs Date Time Temp Pulse Resp B/P (MAP) Pulse Ox O2 Delivery O2 Flow Rate FiO2 10/05/20 09:44 81 75/43 (54) 10/05/20 06:00 97.5 19 94 Room Air 09/29/20 16:00 2.0 I&O- Last 24 Hours up to 6 AM 10/05/20 06:00 Intake Total 1735.0 ml Output Total 925 ml Balance 810.0 ml Laboratory Data Labs 24H Laboratory Tests 2 10/04/20 12:00: Bedside Glucose (Misc Panel) 121H 10/04/20 15:25: Body Fluid Specific [place] 1.010, Body Fluid WBC (Auto) 236H, Body Fluid RBC (Auto) < 2, Body Fluid Mononuclear Cells % Auto 81.3H, Fluid Polymorphonuclear Cell % Auto 18.7H, Body Fluid Glucose Source PERITONEAL, Body Fluid Glucose 148, Body Fluid Protein Source PERITONEAL, Body Fluid Total Protein 0.8, Body Fluid Albumin Source PERITONEAL, Body Fluid Albumin 0.5, Peritoneal Fluid Source PERITONEAL, Peritoneal Fluid Color PALE YELLOW, Peritoneal Fluid Appearance CLEAR 10/04/20 17:12: Bedside Glucose (Misc Panel) 178H 10/04/20 19:19: Bedside Glucose (Misc Panel) 240H 10/05/20 06:39: Immature Granulocyte % (Auto) 1.0, Neutrophils (%) (Auto) 78.5H, Lymphocytes (%) (Auto) 11.0L, Monocytes (%) (Auto) 6.5, Eosinophils (%) (Auto) 2.6, Basophils (%) (Auto) 0.4, Neutrophils # (Auto) 5.7, Lymphocytes # (Auto) 0.8L, Monocytes # (Auto) 0.5, Eosinophils # (Auto) 0.2, Basophils # (Auto) 0.0, Nucleated Red Blood Cells % (auto) 0.0 10/05/20 06:41: Anion Gap 7L, Glomerular Filtration Rate 29.4L, Calcium Level 7.8L, Magnesium Level 2.4, Total Bilirubin 1.3H, Aspartate Amino Transf (AST/SGOT) 12, Alanine Aminotransferase (ALT/SGPT) 14, Alkaline Phosphatase 169H, Total Protein 4.6L, Albumin 2.8L, Albumin/Globulin Ratio 1.6 CBC/BMP Laboratory Tests 10/05/20 06:39 10/05/20 06:41 FSBS Laboratory Tests Test 10/04/20 12:00 10/04/20 17:12 10/04/20 19:19 Range/Units Bedside Glucose (Misc Panel) 121 178 240 83-110 MG/DL Microbiology Microbiology 10/04/20 Acid Fast Stain, Received Pending 10/04/20 Mycobacterial Culture, Received Pending 10/04/20 Fungal Smear, Received Pending 10/04/20 Fungal Culture, Received Pending 10/04/20 Gram Stain - Final, Resulted 10/04/20 Body Fluid Culture, Resulted Pending 10/04/20 Anaerobic Culture, Resulted Pending 10/04/20 Blood Culture, Received Pending 10/04/20 Blood Culture, Received Pending 09/27/20 Stool Occult Blood (ALEM) - Final, Complete 09/25/20 Gram Stain - Final, Complete 09/25/20 Body Fluid Culture - Final, Complete Discharge Medications Scheduled Allopurinol (Allopurinol) 100 Mg Tablet, 100 MG PO DAILY, (Reported) Apixaban (Eliquis) 2.5 Mg Tablet, 2.5 MG PO BID, (Reported) Ascorbic Acid (Vitamin C) 500 Mg Tablet, 1,000 MG PO DAILY, (Reported) TAKES AT NOON Cholecalciferol (Vitamin D3) (Vitamin D3) 1,000 Unit Tablet, 2,000 UNITS PO DAILY, (Reported) TAKES AT NOON Colesevelam Hydrochloride (Welchol) 625 Mg Tablet, 3,750 MG PO QHS, (Reported) Glucosamine/Chondroitin/C/Clay (Glucosamine-Chondroitin Capsul) 1 Cap Cap, 1 CAP PO BID, (Reported) Insulin Aspart (Novolog Flexpen) 100 Unit/1 Ml Insuln.pen, 1 DOSE SC AC, (Reported) PER SLIDING SCALE Insulin Detemir (Levemir) 1 Units/0.01 Ml Susp, 40 UNITS SC BID, (Reported) Levothyroxine Sodium (Levothyroxine Sodium) 175 Mcg Tab, 175 MCG PO QAM, (Reported) Midodrine HCl (Midodrine HCl) 5 Mg Tablet, 5 MG PO TID, (Reported) Multivitamin (Multivitamins) 1 Each Tablet, 1 TAB PO DAILY, (Reported) TAKES AT NOON Pantoprazole Sodium (Pantoprazole Sodium) 40 Mg Tablet.dr, 40 MG PO DAILY, (Reported) Spironolactone (Aldactone) 25 Mg Tablet, 25 MG PO BID@, Torsemide (Torsemide) 100 Mg Tablet, 50 MG PO BID@,17 Vit A/Vit C/Vit E/Zinc/Copper (Preservision Areds Softgel) 1 Each Capsule, 1 CAP PO BID, (Reported) [Previgen Otc] , 1 TAB PO DAILY, (Reported) Scheduled PRN Albuterol Sulfate (Proair Hfa) 108 Mcg/Act Aer, 2 PUFFS INH QID PRN for SHORTNESS OF BREATH, (Reported) Miscellaneous Medications [med rec comment] , (Reported) unable to speak with patient,used external med history and last office visit from 09/13/20 Allergies Coded Allergies: bumetanide (Verified Allergy, Unknown, UNKNOWN, 09/24/20) valsartan (Verified Allergy, Unknown, UNKNOWN REACTION, 09/24/20) Quinolones (Verified Adverse Reaction, Mild, GI UPSET, 09/24/20) atorvastatin (Verified Adverse Reaction, Mild, GI UPSET, 09/24/20) ciprofloxacin (Verified Adverse Reaction, Mild, nausea and vomiting, 09/24/20) ALEX SOFIA MD Oct 05, 2020 11:03
[2020-10-05] MEDS ORDERED: INSUDET SC (11:10)
[2020-10-05] MEDS ORDERED: MIDO5TA PO (11:10)
[2020-10-05] MEDS ORDERED: CEFD1CAP8 PO (11:10)
[2020-10-05] MEDS ORDERED: ALDA25TA2 PO (11:10)
[2020-10-05 11:47] VITALS: BP 108/89
--- NOTE | 2020-10-05 18:34 | IPN ---
NEPHROLOGY PROGRESS NOTE DATE: 10/05/2020 SUBJECTIVE: Patient was seen and examined at the bedside today morning. He reports that he got a paracentesis done yesterday and 6.9 liters of fluid was removed. His abdominal distention is better. Renal function is stable. He continues to be on I.V. antibiotics. Patient reports that he is feeling better. He does not want to stay in the hospital anymore and he wants to go home. OBJECTIVE: VITAL SIGNS: Temperature 97.5 degrees Fahrenheit, blood pressure 108/89, pulse 86, respiratory rate 19, saturating 94% on room air. INTAKE/OUTPUT: Urine output recorded as 1. 2 liters yesterday and 500 mL so far today since overnight. Weight in the bed scale is 105.6 kg. PHYSICAL EXAMINATION: GENERAL: Patient is awake, alert, oriented x3, sitting up in the bed in no apparent distress. HEAD/NECK: Extraocular muscles intact. Pupils equally round and reactive to light. Mucous membranes are moist. Neck is supple. There is no JVD. CVS: S1, S2, regular rate. Trace edema of the bilateral lower extremities. RESPIRATORY: Chest to clear to auscultation bilaterally. Bilateral equal air entry. No rales or rhonchi. ABDOMEN: Soft, distended. Abdominal wall edema in the pannus was noted. Amount of ascites is reduced because he got paracentesis done. MUSCULOSKELETAL: No clubbing or cyanosis. Pulses are 2+. [employer]: No focal deficit. Power is 5/5 in all extremities. LAB REVIEW: CBC showed WBC 7.2, hemoglobin 9.1, platelets 172,000. BMP shows sodium 138, potassium 4.3, chloride 111, bicarb 20, BUN 78, creatinine 2.3; it was 2.2 yesterday. Calcium 7.8, magnesium 2.4. Total bilirubin 1.3. Albumin 2.8. MICROBIOLOGY: Peritoneal fluid gram stain is negative so far. CURRENT INPATIENT MEDICATIONS: Patient's medications were all reviewed by myself. He continues to be on Torsemide 50 mg p.o. twice a day along with Spironolactone 25 mg p.o. daily. No other significant change in the medication except that he is still on Cefepime. ASSESSMENT AND PLAN: 1. Acute renal failure superimposed on chronic kidney disease: It was associated with SBP. Patient's creatinine has been fluctuating now between 2 to 2.5. He is stable close to his baseline, however, I explained to the patient that patient has type 2 hepatorenal syndrome, there is very high risk of complications and he can develop type 1 anytime and he needs to be closely monitored in the office setting. 2. SBP: Patient is getting I.V. Cefepime. Repeat white cell count of the peritoneal fluid done yesterday is improving. He can be discharged home on a couple more days of oral cephalosporin. 3. Chronic hypotension: It is associated with decompensated cirrhosis. Continue current dose of Midodrine. 4. Decompensated cirrhosis with ascites: Patient got the ascitic tap done yesterday. Continue Torsemide 50 mg p.o. twice a day and Spironolactone 25 mg p.o. daily. 5. Chronic gout secondary to chronic kidney disease: Continue current dose of Allopurinol.
== END 2020-10-05 11:58 | disposition home health service (06) | DRG 372 ==
LOC: M ED 20:37 → M ED INP 20:38 → ENRESERV 09-25 02:23 → M PCU 09-25 02:51 → M MSPAV 09-30 16:57
PROVIDERS: ADMIT Family Medicine; ATTEND Internal Medicine Nephrology
PROC: 30233J1 Transfusion of Nonautologous Serum Albumin into Peripheral Vein, Percutaneous Approach (ICD-10-PCS; 2020-09-25)
PROC: 0W9G3ZZ Drainage of Peritoneal Cavity, Percutaneous Approach (ICD-10-PCS; principal; 2020-09-27)
PROC: 30233N1 Transfusion of Nonautologous Red Blood Cells into Peripheral Vein, Percutaneous Approach (ICD-10-PCS; 2020-09-28)
PROC: 02HV33Z Insertion of Infusion Device into Superior Vena Cava, Percutaneous Approach (ICD-10-PCS; 2020-09-29)
PROC: 0W9G3ZX Drainage of Peritoneal Cavity, Percutaneous Approach, Diagnostic (ICD-10-PCS; 2020-10-04)
DX: K65.2 Spontaneous bacterial peritonitis (principal); R18.8 Other ascites; I85.10 Secondary esophageal varices without bleeding; E87.2 Acidosis; I48.20 Chronic atrial fibrillation, unspecified; N25.81 Secondary hyperparathyroidism of renal origin; N17.9 Acute kidney failure, unspecified; N18.4 Chronic kidney disease, stage 4 (severe); K52.1 Toxic gastroenteritis and colitis; K74.60 Unspecified cirrhosis of liver; I71.4 Abdominal aortic aneurysm, without rupture; E11.22 Type 2 diabetes mellitus with diabetic chronic kidney disease; I50.9 Heart failure, unspecified; I25.10 Atherosclerotic heart disease of native coronary artery without angina pectoris; I95.89 Other hypotension; E03.9 Hypothyroidism, unspecified; D64.9 Anemia, unspecified; N32.9 Bladder disorder, unspecified; T36.95XA Adverse effect of unspecified systemic antibiotic, initial encounter; E11.649 Type 2 diabetes mellitus with hypoglycemia without coma; K21.9 Gastro-esophageal reflux disease without esophagitis; M10.30 Gout due to renal impairment, unspecified site; G47.33 Obstructive sleep apnea (adult) (pediatric); E66.9 Obesity, unspecified; Z68.30 Body mass index [BMI] 30.0-30.9, adult; Z79.01 Long term (current) use of anticoagulants; Z79.899 Other long term (current) drug therapy; Z79.4 Long term (current) use of insulin; Z96.651 Presence of right artificial knee joint; Z90.49 Acquired absence of other specified parts of digestive tract; Z87.891 Personal history of nicotine dependence; Z88.1 Allergy status to other antibiotic agents; Z88.8 Allergy status to other drugs, medicaments and biological substances; Z98.49 Cataract extraction status, unspecified eye; Z20.822 Contact with and (suspected) exposure to COVID-19; Z85.47 Personal history of malignant neoplasm of testis

== ENCOUNTER → 2020-10-27 | Outpatient (REF) | payer MEDICARE, BC, OTHER ==
[~2020-10-27] MED LIST changes: +CEFD1CAP8 PO; +med rec comment
== END ==
LOC: M LAB REF 16:51
PROVIDERS: ATTEND Internal Medicine Nephrology
DX: N18.32 Chronic kidney disease, stage 3b (principal)

== ENCOUNTER → 2020-11-10 | Outpatient (REF) | payer MEDICARE, BC, OTHER ==
[2020-11-10 20:22] LABS: APPEARANCE, URINE HAZY (CLEAR); BILIRUBIN, URINE AUTO NEGATIVE (NEGATIVE); BLOOD, URINE BLOOD NEGATIVE (NEGATIVE); COLOR, URINE YELLOW (YELLOW); GLUCOSE, URINE (UA) AUTO NEGATIVE (NEGATIVE); KETONE, URINE AUTO NEGATIVE (NEGATIVE); LEUKOCYTE ESTERASE, URINE AUTO 1+ (NEGATIVE); NITRITE, URINE AUTO NEGATIVE (NEGATIVE); PROTEIN, URINE AUTO NEGATIVE (NEGATIVE); SPECIFIC GRAVITY URINE AUTO 1.009 (1.002-1.035); UROBILINOGEN, URINE AUTO 0.2 mg/dL (0.0-2.0)
[2020-11-10 20:32] LABS: BACTERIA, URINE AUTO NEGATIVE (NEGATIVE); RBC, URINE AUTO 3 /HPF (0-3); SQUAMOUS EPITHELIAL CELL UR AU 0 /HPF (0-6); WBC, URINE AUTO 11 /HPF (0-3)
== END ==
LOC: M SMT 17:22
PROVIDERS: ATTEND Urology
DX: N32.9 Bladder disorder, unspecified (principal)

== ENCOUNTER → 2020-11-17 | Outpatient (CLI) | payer MEDICARE, BC, OTHER ==
[~2020-11-17] MED LIST changes: +SODIUM BICARBONATE 8.4% INJ 50MEQ 50 ML VIAL As Ordered ONE
[2020-11-17 15:12] VITALS: BP 111/66
--- NOTE | 2020-11-17 19:00 | REP ---
INDICATION: ASCITES, CIRRHOSIS, CKD STAGE 3B The patient has a history of ascites COMPARISON: None. TECHNIQUE: The procedure was performed by Celestina Ospina [facility], under the direct supervision of Dr. Andino The risks and benefits of the procedure were explained to the patient and an informed consent was obtained both verbally and written. Directly prior to the start of the procedure a formal time-out was completed in the procedure room. The largest pocket of fluid was localized in the left flank using ultrasound guidance. The skin was prepped and draped in a sterile fashion. Eleven ML of buffered lidocaine was used as a local anesthetic. An 8-[place] multi side-hole catheter was inserted using trocar technique. FINDINGS: 7000 mL of yellow ascites was removed and discarded. The patient tolerated the procedure well and there were no immediate complications. After the appropriate amount of monitored convalescence, the patient was discharged from the department. IMPRESSION: Ultrasound-guided paracentesis with removal of 7000 mL of yellow ascites. <Electronically signed by Celestina Ospina > 11/17/20 [id number] <Electronically signed by Jason Andino > 11/17/20 [id number]
== END ==
LOC: M IRPRO 14:00
PROVIDERS: ATTEND Internal Medicine Nephrology
DX: R18.8 Other ascites (principal); K74.69 Other cirrhosis of liver; N18.32 Chronic kidney disease, stage 3b
CPT/HCPCS: 49083; 96365; P9047

== ENCOUNTER 2020-11-28 09:24 | Inpatient (IN) | payer MEDICARE, BC, OTHER ==
[~2020-11-28] VITALS: Ht 188 cm; Wt 103.0 kg
[~2020-11-28 09:24] MED LIST changes: -SODIUM BICARBONATE 8.4% INJ 50MEQ 50 ML VIAL As Ordered ONE; +SPIRONOLACTONE 25 MG TAB PO SCH
[2020-11-28] MEDS ORDERED: PANTOPRAZOLE SODIUM 40 MG in D5W 50 ML IV SCH (09:55)
[2020-11-28] MEDS ORDERED: PANTOPRAZOLE 40MG VIAL (C9113 PER 1) IV ONE (09:55)
[2020-11-28] MEDS ORDERED: NS 1,000 ML IV SCH (09:55)
[2020-11-28 10:21] LABS: BASO # 0.1 10^3/uL (0.0-0.2); BASO % 0.5 % (0.0-1.0); EOS # 0.4 10^3/uL (0.0-0.5); EOS % 3.9 % (0.0-3.0); HEMATOCRIT 28.6 % (42.0-52.0); HEMOGLOBIN 8.5 g/dl (13.5-17.5); LYMPH # 0.8 10^3/uL (1.5-5.0); LYMPH % 7.9 % (24.0-44.0); MEAN CORPUSCULAR HGB CONC 29.7 g/dl (32.0-36.5); MEAN CORPUSCULAR VOLUME 87.5 fl (80.0-96.0); MONO # 0.6 10^3/uL (0.0-0.8); MONO % 5.4 % (2.0-8.0); NEUTROPHILS # 8.5 10^3/uL (1.5-8.5); NEUTROPHILS % 81.5 % (36.0-66.0); PLATELET COUNT, AUTOMATED 194 10^3/uL (150-450); RED BLOOD COUNT 3.27 10^6/uL (4.30-6.10); WHITE BLOOD COUNT 10.5 10^3/uL (4.0-10.0)
[2020-11-28 10:35] LABS: INR 1.39; PROTHROMBIN TIME 17.5 SECONDS (12.7-14.5)
--- NOTE | 2020-11-28 10:48 | REP ---
INDICATION: GI bleed COMPARISON: 09/23/2020 TECHNIQUE: Portable AP view of the chest FINDINGS: The mediastinum again demonstrates mild cardiomegaly and stable single lead pacemaker. The lung newman demonstrate chronic appearing changes. Subtle superimposed lower lobe atelectasis cannot be excluded. No effusion. No pneumothorax. No focal consolidation. Skeletal structures are grossly intact/normal. IMPRESSION: Stable chronic changes. Cannot exclude subtle basilar atelectasis. <Electronically signed by Aric Montes > 11/28/20 [id number]
[2020-11-28 10:50] LABS: ALBUMIN 2.8 GM/DL (3.2-5.2); BILIRUBIN,DIRECT 0.4 MG/DL (0.0-0.2); BILIRUBIN,TOTAL 0.7 MG/DL (0.2-1.0); CALCIUM LEVEL 9.1 MG/DL (8.8-10.2); CK-MB VALUE MASS 9.1 NG/ML (<3.6); CREATININE FOR GFR 7.64 MG/DL (0.70-1.30); GLOMERULAR FILTRATION RATE 7.4 (>42); MB/CK RELATIVE INDEX 10.22 (< OR =4); POTASSIUM SERUM 5.4 MEQ/L (3.5-5.1); TOTAL PROTEIN 5.1 GM/DL (6.4-8.2); TROPONIN I 0.12 NG/ML (< 0.10)
[2020-11-28] MEDS ORDERED: GLUCAGON INJ 1MG VIAL SC PRN (12:10)
[2020-11-28] MEDS ORDERED: GLUCOSE 4GM CHEW TABLET PO PRN (12:10)
[2020-11-28] MEDS ORDERED: ACETAMINOPHEN TAB 650MG DOSE (2X325MG) PO PRN (12:10)
[2020-11-28] MEDS ORDERED: DEXTROSE 50% 50 ML SYRINGE IV PRN (12:10)
[2020-11-28] MEDS ORDERED: SPIR-10 PO (12:15)
[2020-11-28] MEDS ORDERED: LEVE1INJ5 SC (12:15)
[2020-11-28] MEDS ORDERED: MIDO5TA PO (12:15)
[2020-11-28] MEDS ORDERED: TORS100T PO (12:15)
[2020-11-28] MEDS ORDERED: HOME MED LIST COMPLETE! XX SCH (12:20)
[2020-11-28 13:40] VITALS: BP 138/68
--- NOTE | 2020-11-28 13:45 | REP ---
INDICATION: abd pain gi bleed COMPARISON: 09/24/2020 TECHNIQUE: Axial noncontrast images from the lung bases to the pubic symphysis with coronal and sagittal reformations. This CT examination was performed using the following dose reduction techniques: Automated exposure control, adjustment of mA and/or kv according to the patient's size, and use of iterative reconstruction technique. FINDINGS: Cirrhotic liver with splenomegaly and portal venous hypertension. Large amount of ascites noted throughout the abdomen and pelvis Subtle cystic change in the body of the pancreas is suspected. The gallbladder is incompletely evaluated. Kidneys demonstrate chronic atrophy and bilateral hypodensities suggesting cysts including large left renal cysts measuring up to roughly 6 cm. The enteric system is without obstruction. Colonic and sigmoid diverticulosis noted. Underlying acute process involving the enteric system cannot be excluded due to extensive mesenteric infiltration and ascites related to above-mentioned cirrhosis. Pelvis demonstrates normal prostate gland and bladder wall thickening along with soft tissue and small calcifications along the posterior wall the bladder which are nonspecific. Extensive atherosclerotic changes to the aorta and vasculature noted without aneurysm. Skeletal structures demonstrate osteopenia and degenerative changes. IMPRESSION: 1. Findings consistent with cirrhosis and portal venous hypertension including significant ascites similar to prior examination. 2. Posterior bladder wall irregularity similar to prior examination may warrant urology consultation. 3. Further nonacute findings as described above. 4. Diverticulosis. No bowel obstruction or free air to suggest perforation. <Electronically signed by Aric Montes > 11/28/20 [id number]
[2020-11-28] MEDS: HumaLOG INSULIN (NovoLOG) PER UNIT SC SCH ×3 (14:00→21:00)
[2020-11-28] MEDS ORDERED: PIPERACILLIN/TAZOBACTAM SOD 2.25 GM in D5W MINI-BAG PLUS 50 ML IV SCH (14:00)
[2020-11-28] MEDS: VITAMIN D 1,000 INTERNATIONAL UNITS TABLET PO SCH (14:22)
[2020-11-28] MEDS: LEVOTHYROXINE 75MCG TABLET (0.075MG) PO SCH (14:23)
[2020-11-28] MEDS: ASCORBIC ACID 500 MG TAB PO SCH (14:23)
[2020-11-28 15:45] LABS: HEMATOCRIT 27.6 % (42.0-52.0); HEMOGLOBIN 8.2 g/dl (13.5-17.5)
[2020-11-28 16:00] VITALS: BP 108/62
[2020-11-28] MEDS: MIDODRINE 5 MG TAB PO SCH (16:00)
--- NOTE | 2020-11-28 18:02 | HPEPDOC ---
[facility] Medical History & Physical Date of Admission Nov 28, 2020 Date of Service: Nov 28, 2020 Attending Physician: Arvind Rodriguez DO History and Physical CHIEF COMPLAINT: Black and tarry stools x3d with abdominal pain HISTORY OF PRESENT ILLNESS: Mr. Bassett is a 75 year old man with an extensive medical history, notable for GALAVIZ with recurrent ascities (paracentesis q2-4 weeks), esophageal varices with banding, CHF, afib on Eliquis, CKD stage 3, hypothyroidism, AAA and right sided orchiectomy who presents to the [facility] ER with CC of black tarry stools for 3 days with left periumbilical abdominal pain which is intermittent over the last 4 days. He reports some relief of his pain in the left lateral recumbent position. When lying flat, he reports the pain is a 6-7/10, but LLD, the pain is a 1-2/10. He states that his diarrhea started out brown in color but progressed to black and tarry. He was prompted to come to the emergency room today (11/28) when he saw bright red blood on his toilet tissue. He states that he has been able to eat but that food will go right through him and he will have an episode of diarrhea 30-60 min after eating. He also states trying tea, ihsan sean and water as palliative for his diarrhea with no change. He reports being on antibiotics recently for an arm infection He had one episode of vomiting the morning of 11/26 but attributes this to post nasal drip from chronic sinusitis. He also reports some low sternal/epigastric pain on 11/26 as well. In the emergency room the patients labs were significant for a WBC of 10.5, Hgb of 8.5, Hct of 28.6, BUN if 161 and Cr of 7.64. A CT Abd/Pelv was performed and is pending results. A CXR showed stable chronic changes but subtle basilar atelectasis cannot be excluded. This patient has recurrent paracentesis every 2-4 weeks prn. His last paracentesis was 11/17/20, and per the report, they removed 7000mL of fluid from his abdomen. The patient had an upper endoscopy in July of 2020 and was found to have grade 2 varices. PAST MEDICAL HISTORY: 1. GALAVIZ with ascites 2. Esophageal varices with banding 3. CHF 4. Afib on Eliquis 5. CKD stage 3 6. SBP (Sep 2020) 7. Hypothyroidism 8. Gout 9. IDDM 10. GERD 11. AAA 12. CAD w hx DE 3x 13. Right testicular cancer with right orchiectomy 14. PINKY 15. Cholecystectomy 16. Right knee arthroplasty 17. Left knee surgery 18. Cataract removal PAST SURGICAL HISTORY: 1. GALAVIZ with ascites 2. Esophageal varices with banding 3. CHF 4. Afib on Eliquis 5. CKD stage 3 6. SBP (Sep 2020) 7. Hypothyroidism 8. Gout 9. IDDM 10. GERD 11. AAA 12. CAD w hx DE 3x 13. Right testicular cancer with right orchiectomy 14. PINKY 15. Cholecystectomy 16. Right knee arthroplasty 17. Left knee surgery 18. Cataract removal SOCIAL HISTORY: Tobacco use: Denies, reports he quit about ten years ago, before that he smoked for 50 years ETOH: Denies Illicit drug use: Denies IV drug use: Denies FAMILY HISTORY: Brother has DM II No other pertinent family history ALLERGIES: Please see below. REVIEW OF SYSTEMS: CONSTITUTIONAL: Denies fever, chills, night sweats HEENT: Denies BUI CARDIOVASCULAR: Denies CP RESPIRATORY: Reports some mild SOB but attributes it to the buildup of ascites in his abdomen GASTROINTESTINAL: Reports nausea, one episode of vomiting, diarrhea as described above GENITOURINARY: Denies dysuria, hematuria, and straining MUSCULOSKELETAL: Denies edema, numbness or tingling in all four extremities HOME MEDICATIONS: Please see below. PHYSICAL EXAMINATION: VITAL SIGNS: Pulse 73, respiratory rate 18, blood pressure 116/58, pulse oximetry 97% on room air. GENERAL APPEARANCE: Patient is a pleasant 75 year old man who is laying in the left lateral recumbent position in no acute distress HEENT: PERRLA, pale conjunctiva, no scleral icterus, red and beefy appearing tongue, copius green/yellow mucus in pharynx and anterior to uvula, no obvious lymphadenopathy CARDIOVASCULAR: Rate is irregularly irregular with an inconsistent 2/6 blowing systolic murmur. Radial pulses 2+ bilaterally LUNGS: Mild crackles in bilateral lung bases, otherwise CTA bilaterally ABDOMEN: Firm, non-tender, distended abdomen, BS present but hypoactive in lower quadrants but difficult to be heard in upper quadrants. EXTREMITIES: DPA and [employer] pulses present, trace pitting edema bilaterally PSYCHIATRIC: Appropriate mood and affect LABORATORY DATA: See below. IMAGING: CXR, portable AP view - 11/28/2020 Impression: Stable chronic changes. Cannot exclude subtle basilar atelectasis CT Abd/Pelv w/o contrast 11/28/2020 FINDINGS: 1. Cirrhotic liver with splenomegaly and portal venous hypertension. Large amount of ascites noted throughout the abdomen and pelvis 2. Subtle cystic change in the body of the pancreas is suspected. 3. Kidneys demonstrate chronic atrophy and bilateral hypodensities suggesting cysts including large left renal cysts measuring up to roughly 6 cm. 4. The enteric system is without obstruction. Colonic and sigmoid diverticulosis noted. 5. Underlying acute process involving the enteric system cannot be excluded due to extensive mesenteric infiltration and ascites related to above-mentioned cirrhosis. 6. Pelvis demonstrates normal prostate gland and bladder wall thickening along with soft tissue and small calcifications along the posterior wall the bladder which are nonspecific. 7. Extensive atherosclerotic changes to the aorta and vasculature noted without aneurysm. 8. Skeletal structures demonstrate osteopenia and degenerative changes. MICROBIOLOGY: Please see below. ASSESSMENT: Mr. Bassett is a 75 year old man with an extensive medical history, notable for GALAVIZ with recurrent ascities (paracentesis q2-4 weeks), esophageal varices SP banding, CHF, afib on Eliquis, CKD stage 3, hypothyroidism, AAA and right sided orchiectomy who presents to the [facility] ER with CC of black tarry stools for 3 days with left periumbilical abdominal pain which is intermittent over the last 4 days. His labs in the ER show a significant GERARDO (BUN 161, Cr 7.64) and a low Hgb (8.5), which is not far off from his baseline. He will be admitted on suspicion of GI bleeding with GERARDO on CKD. PLAN: # Suspicion of GI bleeding - pending GI consultation for possible gastric banding (appreciate further recommendations and input) - Patient reports a 3-4d hx of black and tarry stools - Hx of esophageal varices with banding PPx with octreotide - Surgical consult for potential upper endoscopy - Clear liquid diet - IV Ceftriaxone for SBP PPx - Patient is SP 1 dose of zosyn - Stool occult ordered by Dr. Dhillon # Acute on chronic renal failure - CKD stage 3 - Today (11/28/20) BUN 161, Cr 7.64 - Nephrology consult (appreciate their recommendations) - Administering Albumin 5% x1; nephrology ordered 25% albumin infusion # GALAVIZ with ascities - recurrent paracentesis (last on 11/17, 7000mL removed) - CT Abd Pelv 11/28 shows significant ascites - Administering Albumin 5% - SBP PPx with Rocephin (Zosyn given prior but eventually discontinued) - Spironolactone # Afib on Eliquis - Eliquis held at this time pending upper endoscopy per GI - Will resume after procedure # Chronic hypotension - Continue home Midodrine # Hypothyroidism - Continue home Synthroid # Insulin dependent DM - Patient on ISS - FSBS ac and qhs w/ hypoglycemic protocol #History of CHF (unspecified) -Clinically, patient is third spacing fluids likely 2/2 to acute uncompensated cirrhosis less likely acute exacerbation of CHF # DVT Prophylaxis - TEDS and sequentials Contributions from [employer] [facility] Vital Signs Vital Signs Date Time Temp Pulse Resp B/P (MAP) Pulse Ox O2 Delivery O2 Flow Rate FiO2 11/28/20 16:00 98.7 66 18 108/62 (77) 98 Room Air Laboratory Data Labs 24H Laboratory Tests 2 11/28/20 10:04: Prothrombin Time 17.5H, Prothromb Time International Ratio 1.39, Activated Partial Thromboplast Time 35.0, Lactic Acid Level 1.5 11/28/20 10:05: Immature Granulocyte % (Auto) 0.8, Neutrophils (%) (Auto) 81.5H, Lymphocytes (%) (Auto) 7.9L, Monocytes (%) (Auto) 5.4, Eosinophils (%) (Auto) 3.9H, Basophils (%) (Auto) 0.5, Neutrophils # (Auto) 8.5, Lymphocytes # (Auto) 0.8L, Monocytes # (Auto) 0.6, Eosinophils # (Auto) 0.4, Basophils # (Auto) 0.1, Nucleated Red Blo od Cells % (auto) 0.0, Anion Gap 16, Glomerular Filtration Rate 7.4L, Calcium Level 9.1, Total Bilirubin 0.7, Direct Bilirubin 0.4H, Aspartate Amino Transf (AST/SGOT) 23, Alanine Aminotransferase (ALT/SGPT) 30, Alkaline Phosphatase 226H, Ammonia 53H, Total Creatine Kinase 89, Creatine Kinase MB 9.1H, Creatine Kinase MB Relative Index 10.22H, Troponin I 0.12H, Total Protein 5.1L, Albumin 2.8L, Albumin/Globulin Ratio 1.2 11/28/20 14:11: Bedside Glucose (Misc Panel) 154H 11/28/20 17:18: Bedside Glucose (Misc Panel) 139H CBC/BMP Laboratory Tests 11/28/20 10:05 11/28/20 15:18 Microbiology Microbiology 11/28/20 Blood Culture, Received Pending 11/28/20 Blood Culture, Received Pending 11/28/20 Respiratory Virus Panel (PCR) ([facility]) - Final, Complete Home Medications Scheduled Allopurinol (Allopurinol) 100 Mg Tablet, 100 MG PO DAILY Apixaban (Eliquis) 2.5 Mg Tablet, 2.5 MG PO BID Ascorbic Acid (Vitamin C) 500 Mg Tablet, 1,000 MG PO DAILY TAKES AT NOON Cholecalciferol (Vitamin D3) (Vitamin D3) 1,000 Unit Tablet, 2,000 UNITS PO DAILY TAKES AT NOON Colesevelam Hydrochloride (Welchol) 625 Mg Tablet, 3,750 MG PO QHS Glucosamine/Chondroitin/C/Clay (Glucosamine-Chondroitin Capsul) 1 Cap Cap, 1 CAP PO BID Insulin Aspart (Novolog Flexpen) 100 Unit/1 Ml Insuln.pen, 1 DOSE SC AC PER SLIDING SCALE Insulin Detemir (Levemir Flextouch) 100 Unit/1 Ml Insuln.pen, 30 UNIT SC BID Levothyroxine Sodium (Levothyroxine Sodium) 175 Mcg Tab, 175 MCG PO QAM Midodrine HCl (Midodrine HCl) 5 Mg Tablet, 5 MG PO TID Multivitamin (Multivitamins) 1 Each Tablet, 1 TAB PO DAILY TAKES AT NOON Pantoprazole Sodium (Pantoprazole Sodium) 40 Mg Tablet.dr, 40 MG PO DAILY Spironolactone (Spironolactone) 25 Mg Tablet, 25 MG PO DAILY Torsemide (Torsemide) 100 Mg Tablet, 50 MG PO BID Vit A/Vit C/Vit E/Zinc/Copper (Preservision Areds Softgel) 1 Each Capsule, 1 CAP PO BID Allergies Coded Allergies: bumetanide (Verified Allergy, Unknown, UNKNOWN, 09/24/20) valsartan (Verified Allergy, Unknown, UNKNOWN REACTION, 09/24/20) Quinolones (Verified Adverse Reaction, Mild, GI UPSET, 09/24/20) atorvastatin (Verified Adverse Reaction, Mild, GI UPSET, 09/24/20) ciprofloxacin (Verified Adverse Reaction, Mild, nausea and vomiting, 09/24/20) A-FIB/CHADSVASC A-FIB History Current/History of A-Fib/PAF?: Yes Current PO Anticoag Therapy: Yes GME ATTESTATION GME ATTESTATION My faculty preceptor for this patient encounter was physically present during the encounter and was fully available. All aspects of the patient interview, examination, medical decision making process, and medical care plan development were reviewed and approved by the faculty preceptor. The faculty preceptor is aware and concurs with the plan as stated in the body of this note and will attest to such by his/her cosignature. ATTENDING NOTE I personally examine the patient, obtained his presenting history and medical history together with the resident and entire teaching team and we discussed his findings, studies and I agree with the above noted assessment and plan. Dontae Grewal DO Nov 28, 2020 18:02 DIEGO VIVEROS MD Dec 06, 2020 09:02
[2020-11-28 18:05] VITALS: BP_SYST 127
[2020-11-28 18:20] VITALS: BP 120/59
[2020-11-28] MEDS ORDERED: SODIUM BICARBONATE 75 MEQ in NS 0.45% 1,000 ML IV SCH (19:00)
[2020-11-28 20:00] VITALS: BP 106/70
[2020-11-28 20:10] VITALS: BP 106/70
[2020-11-28] MEDS: PANTOPRAZOLE 40MG VIAL (C9113 PER 1) IV SCH (20:30)
[2020-11-28] MEDS: cefTRIAXone SOD 1 GM in D5W MINI-BAG PLUS 50 ML IV SCH (20:30)
[2020-11-28] MEDS: COLESEVELAM 625 MG TAB (WELCHOL) PO SCH (20:30)
[2020-11-28] MEDS: OCTREOTIDE ACETATE 1,200 MCG in NS 238.8 ML IV SCH (20:31)
--- NOTE | 2020-11-28 23:28 | CR ---
CONSULTATION DATE: 11/28/2020 REFERRING PHYSICIAN: Neelam Lowe MD REASON FOR CONSULTATION: Acute renal failure superimposed on chronic kidney disease. HISTORY OF PRESENT ILLNESS: Mr. Bassett is a 75-year-old gentleman with known history of non-alcoholic cirrhosis and recurrent ascites. New onset history of esophageal varices with gastrointestinal bleeding and requiring banding of his varices in the past. He presented to the emergency room with diarrhea and black colored stools for the last few days. He was found to have acute renal failure with BUN of 161 and creatinine of 7.64. Hemoglobin of 8.5. The patient is admitted by hospitalist service and nephrology consultation was requested. The patient is seen in progressive care unit. PAST MEDICAL HISTORY: Significant for: 1. GALAVIZ with recurrent ascites. 2. Esophageal varices with prior history of bleeding and banding. 3. History of congestive heart failure (CHF). 4. History of atrial fibrillation on chronic Eliquis. 5. History of stage III chronic kidney disease (CKD). 6. Prior history of spontaneous bacterial peritonitis (SBP). 7. Hypothyroidism. 8. History of insulin dependent diabetes. 9. Abdominal aortic aneurysm. 10.History of gout. 11.History of gastroesophageal reflux disease. 12.History of coronary artery disease with prior history of myocardial infarction (OR). 13.History of testicular cancer, status post right orchiectomy. 14.Obstructive sleep apnea. 15.History of anemia of blood loss. 16.History of cholecystectomy. 17.Right knee arthroplasty. 18.Left knee surgery. 19.Cataract surgery. PAST SURGICAL HISTORY: Significant for cholecystectomy, bilateral knee surgeries and cataract removal. He also has a history of recurrent paracentesis. Upper and lower endoscopies and esophageal banding. PERSONAL SOCIAL HISTORY: The patient quit smoking about 10 years ago. He denies any drug use. There is no history of alcohol use. FAMILY HISTORY: Significant for diabetes and no history of end-stage renal disease. MEDICATIONS: His home medications include allopurinol 100 mg daily, Eliquis 2.5 mg twice a day, vitamin C 500 mg two tablets daily, vitamin D 2000 units daily, Welchol 625 mg, 3750 mg at bedtime, glucosamine one capsule twice a day, NovoLog insulin per sliding scale, Levemir insulin 30 units twice a day, levothyroxine 175 mcg daily, midodrine 5 mg three times a day, multivitamins one tablet daily, pantoprazole 40 mg daily, spironolactone 25 mg daily, torsemide 100 mg half tablet twice a day. ALLERGIES: He has allergy to BUMETANIDE, VALSARTAN, QUINOLONES, ATORVASTATIN. REVIEW OF SYSTEMS: The patient denies any fevers or chills. He has not been feeling well for at least three days. He reports that diarrhea started on Saturday and continued through the weekend. He had black colored stools. He denies any vomiting. Ears, nose and throat are unremarkable. Cardiovascular system: Significant for coronary artery disease and prior history of congestive heart failure. He continues taking his medications including his diuretics. Respiratory system is negative for cough or hemoptysis. Gastrointestinal (GI) system is significant for black colored stools and diarrhea for the last three days. He denies any abdominal pain or vomiting. He does have abdominal distension with ascites. Genitourinary () system is significant for decreased urine output. Denies any hematuria or flank pain. Musculoskeletal system is significant for degenerative arthritis and back pain. Psychosocial system negative for depression and anxiety. Neurological system is negative for seizures or strokes. Hematological system is significant for chronic anticoagulation and prior history of blood loss anemia. Skin is negative for rash or ulcers. PHYSICAL EXAMINATION: The patient is somewhat pale looking, but not ni any acute distress. He is lying in his bed with marked distension of his abdomen. Temperature is 97.7 degrees Fahrenheit, heart rate 76 per minute and respiratory rate 16 per minute. Blood pressure 127/60 mmHg and oxygen saturation 96% on room air. He is edentulous. Head is atraumatic. Neck is supple and jugular venous distention (JVD) not elevated . Ears, nose and throat are unremarkable. There is no oral thrush or ulcers. Heart sounds are irregular in rhythm and lungs sound clear to auscultation. Abdomen is markedly distended with large amount of ascites. I could not feel liver or spleen. Bowel sounds are present. Extremities without any cyanosis or clubbing. Neurologically, he is awake, alert and oriented times three. LABORATORY DATA: On admission, hemoglobin 8.5, hematocrit 28.6. A repeat hemoglobin is 8.2 and hematocrit 27.6. Sodium 143, potassium 4.4, Co2 15, BUN 161 and creatinine 7.64, glucose 156 and lactic acid 1.5. Total bilirubin is 0.7, ammonia level is 53, troponin 0.12, albumin 2.8 and alkaline phosphatase 226. PROBLEMS: 1. Acute renal failure superimposed on chronic kidney disease, most likely this is related to hepatorenal problems and dehydration as the patient has diarrhea for a few days and in addition he was taking his diuretics. Unfortunately, he also has large amount of ascites with hepatic failure and giving him IV fluid is likely to increase his amount of ascites. He will need some IV fluid hydration, so we will use IV albumin along with IV fluids in order to prevent third spacing. Renal profile will be checked again tomorrow morning. I do not feel that there is urgent need for dialysis at this point. 2. Metabolic acidosis. The patient has significant metabolic acidosis, most likely related to diarrhea and acute renal failure. The patient is being started on sodium bicarbonate drip at 75 mL per hour. We will recheck his chemistry tomorrow morning. 3. Hyperkalemia. This is related to acute kidney injury and metabolic acidosis and it will be corrected. I am going to hold off on any use of Kayexalate. 4. Anemia with acute gastrointestinal bleed. The patient has black colored stools. His stools should be checked for occult blood and complete blood count (CBC) should be repeated as the patient is being hydrated with risk for further drop in his hemoglobin and hematocrit after adequate hydration. He is likely to require transfusions. 5. Cirrhosis of liver with recurrent ascites. The patient has a large amount of ascites already and likely to require paracentesis. At this point, there is no emergent need for a paracentesis. However, we are going to give him IV fluids, which will further complicate his ascites. 6. Hypoalbuminemia and hepatorenal problem. I am going to order IV albumin 25%, 50 mL every 12 hours for three days and stop the 5% albumin for now. We will monitor his closely. Thank for involving me in the care of Mr. Bassett. I will follow him along with you.
[2020-11-29] VITALS (17 sets, daily range): BP systolic 100–123; BP diastolic 56–75; O2SAT 86–92
[2020-11-29 05:40] LABS: HEMATOCRIT 25.9 % (42.0-52.0); HEMOGLOBIN 7.7 g/dl (13.5-17.5); MEAN CORPUSCULAR HEMOGLOBIN 25.8 pg (27.0-33.0); MEAN CORPUSCULAR HGB CONC 29.7 g/dl (32.0-36.5); MEAN CORPUSCULAR VOLUME 86.6 fl (80.0-96.0); PLATELET COUNT, AUTOMATED 160 10^3/uL (150-450); RED BLOOD COUNT 2.99 10^6/uL (4.30-6.10); WHITE BLOOD COUNT 8.2 10^3/uL (4.0-10.0)
[2020-11-29 05:51] LABS: INR 1.34
[2020-11-29 06:25] LABS: CREATININE FOR GFR 7.92 MG/DL (0.70-1.30)
[2020-11-29 06:26] LABS: ALBUMIN 2.6 GM/DL (3.2-5.2); BILIRUBIN,TOTAL 0.7 MG/DL (0.2-1.0); CALCIUM LEVEL 8.7 MG/DL (8.8-10.2); GLOMERULAR FILTRATION RATE 7.1 (>42); POTASSIUM SERUM 5.1 MEQ/L (3.5-5.1); TOTAL PROTEIN 4.9 GM/DL (6.4-8.2)
[2020-11-29] MEDS: LEVOTHYROXINE 75MCG TABLET (0.075MG) PO SCH (06:38)
[2020-11-29] MEDS: PANTOPRAZOLE 40MG VIAL (C9113 PER 1) IV SCH ×2 (08:29→20:39)
[2020-11-29] MEDS: MIDODRINE 5 MG TAB PO SCH ×3 (08:29→16:00)
[2020-11-29] MEDS: cefTRIAXone SOD 1 GM in D5W MINI-BAG PLUS 50 ML IV SCH ×2 (08:29→20:44)
[2020-11-29] MEDS: HumaLOG INSULIN (NovoLOG) PER UNIT SC SCH ×4 (08:29→20:50)
[2020-11-29] MEDS: ASCORBIC ACID 500 MG TAB PO SCH (08:29)
[2020-11-29] MEDS: VITAMIN D 1,000 INTERNATIONAL UNITS TABLET PO SCH (08:29)
[2020-11-29] MEDS ORDERED: PROPRANOLOL 20 MG TAB PO SCH (09:00)
[2020-11-29 09:27] LABS: MAGNESIUM LEVEL 2.6 MG/DL (1.8-2.4)
[2020-11-29] MEDS: SODIUM BICARBONATE 150 MEQ in STERILE WATER LITER BAG 1,000 ML IV SCH (09:28)
--- NOTE | 2020-11-29 11:30 | IPNPDOC ---
Date Seen The patient was seen on 11/29/20. Progress Note SUBJECTIVE: Events since last encounter: Mr. Bassett reports a decrease in the frequency of his diarrhea overnight, with only one small incontinent BM this morning, in which he does report some blood but is unable to describe it. He also reports an improvement in his pain since last night. He states that it is intermittent and sharp and compares it to gas pain. He does also report that when he is able to pass gas, this improves the pain. At its worst he describes it as 4-5/10. He reports urinating this morning and describes it as clear, with no blood. ROS: General: Denies fever, chills, night sweats CV: Denies chest pain, palpitations Resp: Reports mild SOB and WELLS when walking from bed to bathroom attributes this to his increase in ascites and says that it has not changed since yest erdays exam. GI: Reports increase in bowel gas, blood in stool. Denies N/V : Denies dysuria, pyuria, hematuria or difficulty voiding Extrems: Denies numbness or tingling OBJECTIVE: PE General: Patient is awake, alert and pleasant, sitting in bedside chair HEENT: PERRLA, EOMI, sclera without icterus, tongue is less red than on yesterdays exam. Unable to evaluate for previously seen mucus due to obstructing food residue in throat (chicken broth) CARDIOVASCULAR: Rate is irregularly irregular with an inconsistent 2/6 blowing systolic murmur. Radial pulses 2+ bilaterally LUNGS: Mild crackles in bilateral lung bases, otherwise CTA bilaterally ABDOMEN: Abdomen is firm, distended and non-tender to palpation. BS present and normoactive in all 4 quadrants Extremities: Lower extremity edema still present and slightly increased from yesterday, 1+ bilaterally, DPA and COMFORT ADVISOR present Psych: Appropriate mood and affect IMAGING: CXR, portable AP view - 11/28/2020 Impression: Stable chronic changes. Cannot exclude subtle basilar atelectasis CT Abd/Pelv w/o contrast 11/28/2020 FINDINGS: 1. Cirrhotic liver with splenomegaly and portal venous hypertension. Large amount of ascites noted throughout the abdomen and pelvis 2. Subtle cystic change in the body of the pancreas is suspected. 3. Kidneys demonstrate chronic atrophy and bilateral hypodensities suggesting cysts including large left renal cysts measuring up to roughly 6 cm. 4. The enteric system is without obstruction. Colonic and sigmoid diverticulosis noted. 5. Underlying acute process involving the enteric system cannot be excluded due to extensive mesenteric infiltration and ascites related to above-mentioned cirrhosis. 6. Pelvis demonstrates normal prostate gland and bladder wall thickening along with soft tissue and small calcifications along the posterior wall the bladder which are nonspecific. 7. Extensive atherosclerotic changes to the aorta and vasculature noted without aneurysm. 8. Skeletal structures demonstrate osteopenia and degenerative changes. ASSESSMENT: Mr. Bassett is a 75 year old man with an extensive medical history, notable for GALAVIZ with recurrent ascities (paracentesis q2-4 weeks), esophageal varices SP banding, CHF, afib on Eliquis, CKD stage 3, hypothyroidism, AAA and right sided orchiectomy who presents to the [facility] ER with CC of black tarry stools for 3 days with left periumbilical abdominal pain which is intermittent over the last 4 days. He is admitted for suspicion of GI bleeding and GERARDO on CKD. PLAN: # Anemia - likely 2/2 renal disease, less likely 2/2 GI bleeding - Hx of esophageal varices with banding PPx with octreotide - Patient is hemodynamically stable - Stool occult resulted positive - Will continue to follow hemoglobin trend; Will transfuse 1 unit PRBC today - Clear liquid diet; will advance - GI on consultation for possible gastric banding (appreciate further recommendations and input); no plans for EGD at this time # GALAVIZ with ascites - Recurrent paracentesis (last on 11/17, 7000mL removed) - CT Abd Pelv 11/28 shows significant ascites, per nephrology- wait for improved kidney function before performing a paracentesis - Administering Albumin infusion 25% q12h - SBP PPx with Rocephin (Zosyn given prior but eventually discontinued) - Per GI (Dr. Prince): Therapeutic and diagnostic paracentesis recommended. Eliquis has been held for anticipation of this procedure. We appreciate GIs recommendation and input on this matter. - Plan for paracentesis tomorrow based on renal function / acidosis improvement # Acute on chronic renal failure - possibly 2/2 hepatorenal syndrome - CKD stage 3 - 11/28/20: BUN 161, Cr 7.64 - 11/29/20: BUN 157, Cr 7.92 - Nephrology consult completed (appreciate their input and recommendations); possibly may require dialysis if renal function fails to improve by tomorrow - Administered Albumin 5% x1; nephrology ordered 25% albumin infusion q12h #Irregularity of bladder on imaging - possibly 2/2 malignancy - Patient has cytology completed on 11/10/2020 , consistent with malignancy - Patient will need to further evaluation with oncology discharge # Metabolic acidosis - likely 2/2 diarrhea and GERARDO - Started on sodium bicarbonate drip 75mL/hr - Monitor chemistries #Spontaneous bacterial peritonitis -Was admitted for SBP back in August 2020 -GI recommends diagnostic and therapeutic paracentesis # Hyperkalemia - Likely 2/2 GERARDO and metabolic acidosis - Hold on use of Kayexalate pending repeat labs - K 11/28: 5.4, 11/29: 5.1 # Afib on Eliquis - This morning patient had an episode of multiple runs of V. tach; had remained asymptomatic - Thyroid function noted - Troponin trend noted - EKG noted - Will start Metoprolol tartrate 12.5 mg PO [id number] with hold parameters - Eliquis held at this time pending upper endoscopy per GI; will resume after tentative procedure # Chronic hypotension - Continue home Midodrine # Hypothyroidism - Continue home Synthroid # Insulin dependent DM - Patient on ISS - FSBS ac and qhs w/ hypoglycemic protocol #History of CHF (unspecified) -Clinically, patient is third spacing fluids likely 2/2 to acute uncompensated cirrhosis less likely acute exacerbation of CHF # DVT Prophylaxis - TEDS and sequentials VS, I&O, 24H, Fishbone Vital Signs/I&O Vital Signs Date Time Temp Pulse Resp B/P (MAP) Pulse Ox O2 Delivery O2 Flow Rate FiO2 11/29/20 08:00 96.9 81 20 107/58 (74) 97 Room Air I&O- Last 24 Hours up to 6 AM 11/29/20 06:00 Intake Total 1940.0 ml Output Total 200 ml Balance 1740.0 ml Laboratory Data 24H LABS Laboratory Tests 2 11/28/20 14:11: Bedside Glucose (Misc Panel) 154H 11/28/20 17:18: Bedside Glucose (Misc Panel) 139H 11/28/20 21:10: Bedside Glucose (Misc Panel) 215H 11/29/20 05:22: Nucleated Red Blood Cells % (auto) 0.0, Anion Gap 19H, Glomerular Filtration Rate 7.1L, Calcium Level 8.7L, Magnesium Level 2.6H, Total Bilirubin 0.7, Aspartate Amino Transf (AST/SGOT) 22, Alanine Aminotransferase (ALT/SGPT) 30, Alkaline Phosphatase 210H, Total Protein 4.9L, Albumin 2.6L, Albumin/Globulin Ratio 1.1 11/29/20 05:23: Prothrombin Time 17.0H, Prothromb Time International Ratio 1.34 CBC/BMP Laboratory Tests 11/28/20 15:18 11/29/20 05:22 Microbiology Microbiology 11/28/20 Stool Occult Blood (AL[facility]) - Final, Complete 11/28/20 Blood Culture, Received Pending 11/28/20 Blood Culture, Received Pending 11/28/20 Respiratory Virus Panel (PCR) (AL[facility]) - Final, Complete GME ATTESTATION GME ATTESTATION My faculty preceptor for this patient encounter was physically present during the encounter and was fully available. All aspects of the patient interview, examination, medical decision making process, and medical care plan development were reviewed and approved by the faculty preceptor. The faculty preceptor is aware and concurs with the plan as stated in the body of this note and will attest to such by his/her cosignature. ATTENDING NOTE I, Sly Maguire, have independently examined this patient and performed my own physical exam, as well as reviewed the documentation and edited where necessary with the resident. For medical students we have performed the physical exam together and discussed medical decision making and I have verified the history. I have discussed in detail with the resident / student the findings and plan of treatment as documented by the resident / student and edited their note. I agree with their findings and treatment plan and have edited their documentation. I will continue to follow the patient during this hospital stay. Dontae Grewal DO Nov 29, 2020 11:29 SLY MAGUIRE MD Nov 29, 2020 14:48
[2020-11-29 11:36] LABS: VENOUS HCO3 11.2 MEQ/L (23.0-27.0); VENOUS O2 SATURATION 94.7 % (60.0-80.0); VENOUS PARTIAL PRESSURE CO2 27.5 mmHg (38.0-50.0); VENOUS PARTIAL PRESSURE O2 89.1 mmHg (30.0-50.0); VENOUS PH 7.228 UNITS (7.330-7.430); VENOUS STANDARD HCO3 12.7 MEQ/L; VENOUS TOTAL CO2 12.1 MEQ/L (24.0-28.0)
[2020-11-29 11:46] LABS: CK-MB VALUE MASS 8.5 NG/ML (<3.6); MB/CK RELATIVE INDEX 8.95 (< OR =4); TROPONIN I 0.12 NG/ML (< 0.10)
[2020-11-29] MEDS ORDERED: PROPRANOLOL 10 MG TAB PO SCH (12:04)
[2020-11-29 12:17] LABS: FREE T4 1.02 NG/DL (0.76-1.46); THYROID STIMULATING HORMONE 0.608 uIU/ML (0.358-3.740)
[2020-11-29 12:19] LABS: TOTAL T3 42.5 NG/DL (60.0-181.0)
[2020-11-29] MEDS: METOPROLOL TART 12.5 MG PER 1/2 TAB PO SCH ×3 (12:19→23:17)
[2020-11-29 12:45] LABS: CK-MB VALUE MASS 8.8 NG/ML (<3.6); MB/CK RELATIVE INDEX 7.46 (< OR =4); TROPONIN I 0.11 NG/ML (< 0.10)
--- NOTE | 2020-11-29 16:58 | ECGEPIP ---
[place] Test Date: 2020-11-29 Pat Name: MALLORIE MOYA Department: Room: [place] [address] Gender: Male Lead Python Developer: madhavi : 1945 Requested By: JOE HDEZ Order Number: [id number] Reading MD: Dell Durán Measurements Intervals [place] Rate: 78 P: FL: QRS: -44 QRSD: 130 T: 126 QT: 440 QTc: 501 Interpretive Statements Atrial fibrillation Left axis deviation, Probable left anterior fascicular block. Right bundle branch block Possible Anterolateral infarct , age undetermined No ventricle pacing compared with 11/28/2020. Electronically Signed on 11-29-2020 16:58:25 EDT by Dell Durán
[2020-11-29] MEDS: OCTREOTIDE ACETATE 1,200 MCG in NS 238.8 ML IV SCH (18:23)
[2020-11-29] MEDS: COLESEVELAM 625 MG TAB (WELCHOL) PO SCH (20:40)
--- NOTE | 2020-11-29 20:54 | IPN ---
NEPHROLOGY PROGRESS NOTE DATE: 11/29/2020 SUBJECTIVE: Mr. Bassett is seen this morning at his bedside. He is sitting in the chair today and reports feeling better. His diarrhea is improving and he denies any nausea or vomiting. He feels that his abdominal bloating is gradually increasing due to ascites. He denies any dyspnea or chest pain. OBJECTIVE: PHYSICAL EXAMINATION: VITAL SIGNS: Temperature is 96.9, degrees Fahrenheit, heart rate 80 per minute and respiratory rate 20 per minute. Blood pressure 107/58 mm of mercury and oxygen saturation 97% on room air. HEENT: His head is atraumatic. NECK: Supple and without JVD or thyroid enlargement. HEART: Sounds are irregular. LUNGS: Clear to auscultation. ABDOMEN: Distended with ascites and it is nontender. Bowel sounds are present. EXTREMITIES: Without any cyanosis or clubbing. NEUROLOGICAL: He is awake, alert and oriented x3. LABORATORY STUDIES: Today's labs show a WBC count of 8.2, hemoglobin 7.7 and hematocrit 25.9, platelet count 160. Sodium 146, potassium 5.1, chloride 114, CO2 13, BUN 157 and creatinine 7.92, glucose 128 and calcium 8.7. Total protein 4.9 and albumin 2.6. A blood gas done this morning showed a pH of 7.22, pco2 27.5 and pO2 89 with bicarbonate 13. PROBLEMS: 1. Acute renal failure superimposed on chronic kidney disease - The patient is currently non-oliguric though his urine output is decreased. We will continue with intravenous albumin every 12 hours and IV sodium bicarbonate drip for now and recheck his renal function tomorrow. I have discussed with the patient and explained the potential need for dialysis if his kidney function does not improve by otherwise. 2. Metabolic acidosis his acidosis got slightly worse compared to yesterday. This is most likely related to diarrhea and acute renal failure. I am changing his sodium bicarbonate drip to150 mEq per liter and we will recheck his chemistries tomorrow morning. 3. Hyperkalemia his potassium level is improved and we hope that it will improve further with correction of his metabolic acidosis. 4. Hypernatremia his sodium level is only slightly elevated now and at this point I am going to continue with sodium bicarbonate drip in order to correct his metabolic acidosis and not worry about his mild hypernatremia which is likely to improve once his kidney function improves. 5. Cirrhosis with ascites he does have increased ascites. He was recently treated for SBP. I feel that a diagnostic paracentesis can be performed, however I would like to avoid a therapeutic paracentesis due to risk for no recovery of kidney function. Once his kidney function improves, then we can probably consider a therapeutic paracentesis. 6. Acute blood loss anemia - The patient has decline in his hemoglobin and hematocrit after IV fluid hydration. His CBC should be repeated and he should be transfused as needed. He has been seen by GI for a possible upper endoscopy which is likely to be scheduled for December 01. In the meantime, his condition will need to be optimized.
[2020-11-30] VITALS (20 sets, daily range): BP systolic 100–130; BP diastolic 8–73; O2SAT 91–97
[2020-11-30] MEDS: SODIUM BICARBONATE 150 MEQ in STERILE WATER LITER BAG 1,000 ML IV SCH ×2 (04:07→18:54)
[2020-11-30] MEDS: METOPROLOL TART 12.5 MG PER 1/2 TAB PO SCH ×4 (05:43→23:18)
[2020-11-30] MEDS: LEVOTHYROXINE 75MCG TABLET (0.075MG) PO SCH (05:44)
[2020-11-30 06:27] LABS: HEMATOCRIT 29.3 % (42.0-52.0); HEMOGLOBIN 8.9 g/dl (13.5-17.5); MEAN CORPUSCULAR HEMOGLOBIN 26.6 pg (27.0-33.0); MEAN CORPUSCULAR HGB CONC 30.4 g/dl (32.0-36.5); MEAN CORPUSCULAR VOLUME 87.7 fl (80.0-96.0); PLATELET COUNT, AUTOMATED 176 10^3/uL (150-450); RED BLOOD COUNT 3.34 10^6/uL (4.30-6.10); WHITE BLOOD COUNT 9.4 10^3/uL (4.0-10.0)
[2020-11-30 06:45] LABS: INR 1.51; PROTHROMBIN TIME 18.6 SECONDS (12.7-14.5)
[2020-11-30 07:40] LABS: ALBUMIN 2.3 GM/DL (3.2-5.2); BILIRUBIN,TOTAL 0.8 MG/DL (0.2-1.0); CALCIUM LEVEL 8.5 MG/DL (8.8-10.2); CREATININE FOR GFR 8.1 MG/DL (0.70-1.30); GLOMERULAR FILTRATION RATE 6.9 (>42); POTASSIUM SERUM 4.7 MEQ/L (3.5-5.1); TOTAL PROTEIN 4.5 GM/DL (6.4-8.2)
[2020-11-30] MEDS: cefTRIAXone SOD 1 GM in D5W MINI-BAG PLUS 50 ML IV SCH ×2 (08:37→20:22)
[2020-11-30 08:38] LABS: BILIRUBIN,DIRECT 0.3 MG/DL (0.0-0.2)
[2020-11-30] MEDS: PANTOPRAZOLE 40MG VIAL (C9113 PER 1) IV SCH ×2 (08:38→20:23)
[2020-11-30] MEDS: HumaLOG INSULIN (NovoLOG) PER UNIT SC SCH ×4 (08:38→20:23)
[2020-11-30] MEDS: VITAMIN D 1,000 INTERNATIONAL UNITS TABLET PO SCH (08:39)
[2020-11-30] MEDS: ASCORBIC ACID 500 MG TAB PO SCH (08:39)
[2020-11-30] MEDS: MIDODRINE 5 MG TAB PO SCH ×3 (08:41→16:00)
[2020-11-30] MEDS ORDERED: LIDOCAINE 1% MDV 20ML VIAL As Ordered ONE (09:51)
--- NOTE | 2020-11-30 10:21 | ECHO ---
ECHOCARDIOGRAM DATE OF PROCEDURE: 11/29/2020 Age: Gender: Height: 180 cm Weight: 98 kg REFERRING PHYSICIAN: Dr. Sly Maguire INDICATION: Abnormal ECG MEASUREMENTS: 2D Measurements: Aortic root: 3.8 cm Proximal ascending aorta: cm Left atrium: 5.4 cm Left atrial volume index: 49 Proximal ascending aorta: 3.7 cm Left ventricle diastole: 5.2 cm Interventricular septum: 2.11 cm Posterior wall: 1.71 cm Doppler Measurements: No aortic stenosis No aortic regurgitation Aortic valve velocity: 119 cm/s Very mild mitral regurgitation Mild tricuspid regurgitation Estimated right ventricle systolic pressure: 46-51 mmHg Estimated right atrial pressure: 5-10 mmHg Very mild pulmonic regurgitation DESCRIPTION: Rhythm was underlying atrial fibrillation, demand pacing, predominantly ventricular paced. Image quality was good with exception of a subcostal window which was technically difficult. No pericardial effusion. CONCLUSIONS: 1. Severe concentric left ventricular hypertrophy. Normal regional left ventricle (LV) wall motion and wall thickness. Normal left ventricle (LV) systolic function. Left ventricle ejection fraction (LVEF) 60% by visual estimate. 2. Severe left atrial dilatation by visual estimate. 3. Suggestive of moderate elevation of estimated right ventricle systolic pressure. Normal right ventricle size and systolic function. Normal tricuspid and pulmonic valves. Very mild tricuspid regurgitation. 4. Mild aortic valve sclerosis of a 3-cuspid aortic valve. No aortic regurgitation. 5. Mild mitral annular calcification. Very mild mitral regurgitation. 6. Left pleural effusion. 7. Presence of a right ventricle pacemaker lead coursing towards the right ventricle apex position. MTDD
--- NOTE | 2020-11-30 10:59 | ROOPDOC ---
[facility] Report Of Operation Report of Operation DATE OF PROCEDURE: 11/30/20 PREPROCEDURE DIAGNOSES: Acute worsening of chronic kidney disease, requiring urgent hemodialysis POSTPROCEDURE DIAGNOSES: Acute worsening of chronic kidney disease, requiring urgent hemodialysis PROCEDURE PERFORMED: Insertion of a right internal jugular vein permacatheter-A 23 cm Palindrome catheter was inserted with ultrasound-guided venous access and under fluoroscopic guidance SURGEON: Val Kahn MD SEAL DELIVERY VEHICLE OFFICER: None ANESTHESIA: Local ESTIMATED BLOOD LOSS: Approximately 2 mL. COMPLICATIONS: None REMARKS: Patent right internal jugular vein FINDINGS: Good backflow through both ports of the catheter. Catheter tip in the right atrium SPECIMENS REMOVED: None PROCEDURE NOTE: Indication for the procedure: The patient is a 75-year-old gentleman, who was admitted with cirrhosis, portal venous hypertension, upper GI bleed, with black tarry stools, and was noted to have acute worsening of chronic kidney disease. He requires urgent hemodialysis. DESCRIPTION OF PROCEDURE: Informed consent was obtained from the patient, after explaining the risk benefits and complications of the procedure, which include but are not limited to bleeding, infection, cardiorespiratory complications, including pneumothorax, hemothorax, catheter related complications including sepsis, catheter migration, thrombosis, dislodgment etc. Alternatives to the procedure including nonoperative treatment and its consequences were explained. The patient understood and agreed to the procedure The patient was laid supine on the procedure table. The right side of the neck and upper chest were cleaned and draped in a sterile fashion. He was already on scheduled antibiotics . A timeout was performed. After administering local anesthesia with 1% lidocaine, the right internal jugular vein was accessed, using the micropuncture needle under ultrasound guidance. The needle was exchanged to four Syriac micro sheath over 0.018 inch guidewire. All procedures were performed under fluoroscopy guidance. The sheath was then exchanged to an Amplatz floppy tip guidewire, which was positioned in the inferior vena cava. The subcutaneous tunnel for the catheter and the exit site for the catheter were then anesthetized with 1% lidocaine. A small skin incision was made, at the catheter exit site, which was planned, about 2 fingerbreadths below the clavicle, slightly lateral to the midclavicular line. The 23 cm Palindrome catheter, that was attached to the metallic tunneler was then tunneled from the exit site to the vein access site subcutaneously. The access site was serially dilated with dilators, to accommodate the sheath. The dilator of the sheath and the wire were removed, and the catheter that was disconnected from the tunneler was then inserted into the sheath, as the sheath was gently peeled away. The final position of the catheter tip was noted under fluoroscopy. There were no kinks or twists in the course of the catheter. Both ports were aspirated and good flow was noted. Both ports were flushed with heparinized saline. Full-strength heparin was not used to Hep-Lock the ports, as the patient has GI bleed The patient tolerated the procedure well and was transferred to the recovery room in stable condition. Val Kahn MD Nov 30, 2020 10:58
--- NOTE | 2020-11-30 13:18 | CR.PDOC ---
General Date of Consultation: Nov 29, 2020 Referring Provider: SLY MAGUIRE MD Attending Physician: LAVERN BONILLA MD Consultation Referring physician / PCP: Dr. Sly Maguire, Dr. Rey / Derrick Bejarano FNP. Reason for consult: Anemia and suspected GI bleeding.. 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 Tom in [facility] in past but recently following with Dr. Norton) and chronic kidney disease stage III, was admitted to [facility] for severe symptomatic anemia. Patient reports his symptoms started within the last week with some diarrhea and darker stools, up to 3-4 loose watery stools per day, associated with worsening fatigue. Patient was noted to have acute worsening of renal function, creatinine of 7 and was admitted for GERARDO on CKD, and worsening anemia. Patient denies any vomiting of blood, use of NSAIDs, abdominal pain except for mild distress from ascites distention. OFF note: Patient was evaluated in urology clinic in October after noticing abnormal CT scan findings, had urine cytology which showed malignant cells. Patient is yet to follow-up with his urologist to review the results and is unaware of the cytology results. The results were reviewed with the patient in this hospitalization. Also patient reported in past evaluation that he is color blind and cannot differentiate if he is noticing blood in the stools or darker stools. Pertinent negative GI symptoms: Patient denies nausea, vomiting, abdominal pain, loss of appetite, early satiety or unintentional weight loss, hematemesis. Review of Systems: GI: as stated above CVS: No chest pain, No palpitations, No leg swelling RS: No Shortness of breath, No Wheezing [employer]: No loss of consciousness, No focal motor weakness., Hematology: No easy bruising, No gum bleeding, Musculoskeletal: No joint pain, ambulating well. : No burning sensation of the urine ENT: No ear discharge/ pain, No dysphagia. Eyes: No photophobia. Skin: No rash Home medications: reviewed. On Eliquis which is on hold since 1 -2 days. Medical h/o: As above. Surgical h/o: None on abdomen. Social h/o: Denies Alcohol, smoking, IVDA/ drugs. Former smoker. Family h/o of GI cancers - None Prior Endoscopies: Had multiple EGD and Colonoscopies in past. Last EGD with banding in [facility] in- patient, in April 2020--showed large esophageal varices which were banded. Later had follow up EGD in July [address] Norton -- noted small varices and did not require banding. --- Colonoscopy last in [address] Tom noted multiple AVMs and few polyps removed. Pathology reported hyperplastic polyps. Prior GI evaluation: As above Exam: Vitals: reviewed General: Alert and oriented x 3, not in acute distress HEENT: No pallor, no icterus. Normal oropharynx, NO cervical lymphadenopathy. Chest: symmetric with bilateral air entry, CVS: S1, S2 heard, Abdomen: Distended with shifting dullness, non-tender, no rigidity or guarding, no palpable masses, normal bowel sounds heard. Rectal exam: Patient refused. Extremities: pulses palpable, no pedal edema, [employer]: no focal motor or sensory deficits. Moves all extremities Skin: no rash. Labs: reviewed. Imaging: none Impression: -- Abnormal hemoglobin and hematocrit levels with occult blood in stools and no overt external bleeding and intermittent therapeutic paracentesis, on anticoagulation at home, last EGD by Dr. Norton showed only small varices, and recent work-up in urology showed positive malignant cells in urine cytology -- DDx -- likely chronic GI blood loss from portal hypertensive gastropathy vs AVMs vs less likely esophageal varices ( prior Variceal banding) vs chronic urinary blood loss. In view of acute renal failure would suspect a progressive bladder malignancy. -- Decompensated liver cirrhosis with refractory ascites -- Needs further management. --Acute kidney injury, electrolyte abnormalities, cardiac arrhythmias --needs further management. Recommendations: -- Patient educated about the prior test results and all questions answered. -- Consider advancing clear liquid diet to low-sodium diet as tolerated for now. -- Avoid NSAIDs -- Complete 3 days of octreotide along with high-dose PPI and antibiotics for now. -- Consider diagnostic and /or therapeutic paracentesis if cleared by nephrology. (Need to send fluid for analysis including cytology, cell counts, albumin, protein and cultures). If cell counts show hemoperitoneum, consider IR consultation. -- Agree with high-dose albumin infusions for now. Consider albumin when doing paracentesis. -- Monitor Hemoglobin and hematocrit. Transfuse to keep hemoglobin around 7-8gm/ dL. -- Further evaluation of bladder malignancy per primary team/urology. -- Management of acute kidney injury per nephrology recommendations. -- Due to severe, several medical comorbidities and cardiac arrhythmias, as per discussion with the patient, the risk of EGD outweighs benefits at this time. Patient wants to hold off on the endoscopy as well. -- Based on clinical recovery from bladder malignancy and GERARDO, patient needs elective outpatient management of refractory ascites and cirrhosis. Patient to follow-up with primary GI - Dr. Norton upon discharge. --Recall GI if any acute change in status. Patient will be reevaluated based on his clinical course. -- Plan of care educated to patient and patient verbalized understanding and agreed. All questions answered. -- Recommendations communicated to primary team.. Vital Signs/I&O Vital Signs Date Time Temp Pulse Resp B/P (MAP) Pulse Ox O2 Delivery O2 Flow Rate FiO2 11/30/20 11:36 61 102/57 11/30/20 11:33 96.3 18 95 Room Air 11/30/20 10:50 3.0 I&O- Last 24 Hours up to 6 AM 11/30/20 05:59 Intake Total 2800 ml Output Total 325 ml Balance 2475 ml Laboratory Data Labs 24H Laboratory Tests 2 11/29/20 16:12: Lactic Acid Followup at 4 Hours 2.5*H 11/29/20 17:42: Bedside Glucose (Misc Panel) 145H 11/29/20 20:49: Bedside Glucose (Misc Panel) 118H 11/30/20 02:05: Urine Color YELLOW, Urine Appearance HAZY, Urine pH 5.0, Urine Specific [place] 1.009, Urine Protein NEGATIVE, Urine Glucose (UA) NEGATIVE, Urine Ketones NEGATIVE, Urine Blood NEGATIVE, Urine Nitrite NEGATIVE, Urine Bilirubin NEGATIVE, Urine Urobilinogen 0.2, Urine Leukocyte Esterase 3+H, Urine WBC (Auto) 46H, Urine RBC (Auto) 12H, Urine Hyaline Casts (Auto) 0, Urine Bacteria (Auto) NEGATIVE, Urine Squamous Epithelial Cells 0, Urine Sperm (Auto) 11/30/20 05:53: 11/30/20 05:56: Nucleated Red Blood Cells % (auto) 0.0, Prothrombin Time 18.6H, Prothromb Time International Ratio 1.51, Anion Gap 15, Glomerular Filtration Rate 6.9L, Calcium Level 8.5L, Total Bilirubin 0.8, Direct Bilirubin 0.3H, Aspartate Amino Transf (AST/SGOT) 23, Alanine Aminotransferase (ALT/SGPT) 27, Alkaline Phosphatase 184H, Total Protein 4.5L, Albumin 2.3L, Albumin/Globulin Ratio 1.0 11/30/20 08:00: 11/30/20 11:28: Bedside Glucose (Misc Panel) 198H CBC/BMP Laboratory Tests 11/30/20 05:56 Microbiology Microbiology 11/30/20 Urine Culture, Received Pending 11/29/20 Gastrointestinal Tract Panel (PCR) - Final, Complete 11/28/20 Stool Occult Blood (ALEM) - Final, Complete 11/28/20 Blood Culture - Preliminary, Resulted No growth after 24 hours . All specim... 11/28/20 Blood Culture - Preliminary, Resulted No growth after 24 hours . All specim... 11/28/20 Respiratory Virus Panel (PCR) (ALEM) - Final, Complete Allergies Coded Allergies: bumetanide (Verified Allergy, Unknown, UNKNOWN, 09/24/20) valsartan (Verified Allergy, Unknown, UNKNOWN REACTION, 09/24/20) Quinolones (Verified Adverse Reaction, Mild, GI UPSET, 09/24/20) atorvastatin (Verified Adverse Reaction, Mild, GI UPSET, 09/24/20) ciprofloxacin (Verified Adverse Reaction, Mild, nausea and vomiting, 09/24/20) Home Medications Scheduled Allopurinol (Allopurinol) 100 Mg Tablet, 100 MG PO DAILY, (Reported) Apixaban (Eliquis) 2.5 Mg Tablet, 2.5 MG PO BID, (Reported) Ascorbic Acid (Vitamin C) 500 Mg Tablet, 1,000 MG PO DAILY, (Reported) TAKES AT NOON Cholecalciferol (Vitamin D3) (Vitamin D3) 1,000 Unit Tablet, 2,000 UNITS PO DAILY, (Reported) TAKES AT NOON Colesevelam Hydrochloride (Welchol) 625 Mg Tablet, 3,750 MG PO QHS, (Reported) Glucosamine/Chondroitin/C/Clay (Glucosamine-Chondroitin Capsul) 1 Cap Cap, 1 CAP PO BID, (Reported) Insulin Aspart (Novolog Flexpen) 100 Unit/1 Ml Insuln.pen, 1 DOSE SC AC, (Reported) PER SLIDING SCALE Insulin Detemir (Levemir Flextouch) 100 Unit/1 Ml Insuln.pen, 30 UNIT SC BID, (Reported) Levothyroxine Sodium (Levothyroxine Sodium) 175 Mcg Tab, 175 MCG PO QAM, (Reported) Midodrine HCl (Midodrine HCl) 5 Mg Tablet, 5 MG PO TID, (Reported) Multivitamin (Multivitamins) 1 Each Tablet, 1 TAB PO DAILY, (Reported) TAKES AT NOON Pantoprazole Sodium (Pantoprazole Sodium) 40 Mg Tablet.dr, 40 MG PO DAILY, (Reported) Spironolactone (Spironolactone) 25 Mg Tablet, 25 MG PO DAILY, (Reported) Torsemide (Torsemide) 100 Mg Tablet, 50 MG PO BID, (Reported) Vit A/Vit C/Vit E/Zinc/Copper (Preservision Areds Softgel) 1 Each Capsule, 1 CAP PO BID, (Reported) LAVERN BONILLA MD Nov 30, 2020 13:18
[2020-11-30 13:48] LABS: HEPATITIS B CORE ANTIBODY IGM NEGATIVE (NEGATIVE); HEPATITIS B SURFACE ANTIBODY NEGATIVE (POSITIVE); HEPATITIS B SURFACE ANTIGEN NEGATIVE (NEGATIVE); HEPATITIS C VIRUS ABY INDEX 0.1 INDEX (<0.8)
[2020-11-30 15:11] LABS: ABG BASE EXCESS -11.2 (-2.0-2.0); ABG HCO3 13.7 MEQ/L (22.0-26.0); ABG PARTIAL PRESSURE CO2 27.6 mmHg (35.0-45.0); ABG PARTIAL PRESSURE O2 74.5 mmHg (75.0-100.0); ABG STANDARD HCO3 15.4 MEQ/L (22.0-26.0); ABG TOTAL CO2 14.5 MEQ/L (23.0-31.0); ABG pH (ARTERIAL) 7.313 UNITS (7.350-7.450)
--- NOTE | 2020-11-30 15:22 | REP ---
INDICATION: Hypoxia COMPARISON: 11/28/2020 TECHNIQUE: Portable AP view of the chest FINDINGS: Evaluation is limited by underpenetration and poor inspiratory effort which accentuate the pulmonary vasculature and interstitium. Pulmonary vascular congestion and interstitial edema along with lower lobe opacities/atelectasis and small pleural effusions suspected. No pneumothorax. Stable cardiomegaly and pacemaker. Double-lumen dialysis catheter with tips in the right atrium now identified. IMPRESSION: 1. Findings suggesting pulmonary vascular congestion along with lower lobe opacities/atelectasis and small right pleural effusion. <Electronically signed by Aric Montes > 11/30/20 [id number]
--- NOTE | 2020-11-30 15:24 | IPNPDOC ---
Date Seen The patient was seen on 11/30/20. Progress Note SUBJECTIVE: Events since last encounter: Overnight Mr. Lozano O2 sats dipped to 86% RA and he was placed on 2L O2, on exam he does not require any oxygen and reports that a slight drop in O2 while sleeping is normal for him and something that happens at home as well. He reports that his BMs are becoming more brown and less black and there is less blood in his stool than on presentation, but he is still experiencing incontinence of his bowels. He also reports that the abdominal pain the he presented with has improved and now feels more like gas pain. He reports sleeping well overnight and is eating well (diet now full liquid). When the patient was asked if he was aware of irregularities of his bladder seen on CT 09/24/20, he said that he was aware of some spots and that maybe his urine would be tested but beyond that he wasnt sure. He did say that he was followed by urology (Dr. Mcdaniel) ROS: CONSTITUTINAL: Denies fever, chills, night sweats HEENT: Denies BUI, dizziness CV: Denies CP, palps RESP: Denies SOB GI: Reports abdomen gas-like pain and some blood in stool (but less than on presentation). Denies N/V : Denies dysuria, pyuria, hematuria EXTREMS: Reports some tingling in legs but attributes this to his RLS. Denies numbness OBJECTIVE: PE General: Patient is awake, alert and pleasant, sitting in bedside chair HEENT: PERRLA, EOMI, sclera without icterus, mucus anterior to uvula that was previously seen not seen today, MMM CARDIOVASCULAR: Rate is irregularly irregular with an inconsistent 2/6 blowing systolic murmur. Radial pulses 2+ bilaterally LUNGS: Mild crackles in bilateral lung bases, otherwise CTA bilaterally ABDOMEN: Abdomen is firm, distended and non-tender to palpation. BS present and normoactive in all 4 quadrants Extremities: No obvious edema in legs on todays exam, PTAs present bilateral Psych: Appropriate mood and affect IMAGING: CXR, portable AP view - 11/28/2020 Impression: Stable chronic changes. Cannot exclude subtle basilar atelectasis CT Abd/Pelv w/o contrast 11/28/2020 FINDINGS: 1. Cirrhotic liver with splenomegaly and portal venous hypertension. Large amount of ascites noted throughout the abdomen and pelvis 2. Subtle cystic change in the body of the pancreas is suspected. 3. Kidneys demonstrate chronic atrophy and bilateral hypodensities suggesting cysts including large left renal cysts measuring up to roughly 6 cm. 4. The enteric system is without obstruction. Colonic and sigmoid diverticulosis noted. 5. Underlying acute process involving the enteric system cannot be excluded due to extensive mesenteric infiltration and ascites related to above-mentioned cirrhosis. 6. Pelvis demonstrates normal prostate gland and bladder wall thickening along with soft tissue and small calcifications along the posterior wall the bladder which are nonspecific. 7. Extensive atherosclerotic changes to the aorta and vasculature noted without aneurysm. 8. Skeletal structures demonstrate osteopenia and degenerative changes. -09/24/20 CT that is compared to 11/28 CT not available in [facility] ASSESSMENT: Mr. Bassett is a 75 year old man with an extensive medical history, notable for GALAVIZ with recurrent ascities (paracentesis q2-4 weeks), esophageal varices SP banding, CHF, afib on Eliquis, CKD stage 3, hypothyroidism, AAA and right sided orchiectomy who presents to the [facility] ER with CC of black tarry stools for 3 days with left periumbilical abdominal pain which is intermittent over the last 4 days. He is admitted for suspicion of GI bleeding and GERARDO on CKD. PLAN: # Anemia - likely 2/2 renal disease, less likely 2/2 GI bleeding - Hx of esophageal varices with banding - Patient is hemodynamically stable - Hg remains stable; will follow trend - Stool occult resulted positive - s/p 1 unit PRBC - c/w Full liquid diet - c/w Octreotide - GI on consultation; no plans for EGD at this time # GERARDO on CKD3; possible component of hepatorenal syndrome - To improve with conservative therapy - PermCath inserted in IR 10 AM - Administered Albumin 5% x1; nephrology ordered 25% albumin infusion q12h - Patient will be dialyzed 11/30; however was aborted because of hypotension - Nephrology consult completed (appreciate their input and recommendations) # Metabolic acidosis - likely 2/2 diarrhea and GERARDO - Started on sodium bicarbonate drip 75mL/hr, 11/29 slightly worsened per nephrology increase sodium bicarbonate drip to 150mEq per liter and reassess - Monitor chemistries # GALAVIZ with ascites - Recurrent paracentesis (last on 11/17, 7000mL removed) - CT Abd Pelv 11/28 shows significant ascites, per nephrology- wait for improved kidney function before performing a paracentesis, 11/29 nephrology consult suggests diagnostic only paracentesis - Administering Albumin infusion 25% q12h - SBP PPx with Rocephin (Zosyn given prior but eventually discontinued) - c/w home Spironolactone # s/p Hyperkalemia - Likely 2/2 GERARDO and metabolic acidosis - Hold on use of Kayexalate pending repeat labs - K 11/28: 5.4, 11/29: 5.1, 11/30: 4.7 #Irregularity of bladder on imaging - possibly 2/2 malignancy - Patient has cytology completed on 11/10/2020; consistent with malignancy - Repeat cytology pending - Patient will need to further evaluation with oncology discharge # Afib on Eliquis - Eliquis held at this time pending upper endoscopy per GI - Will resume after tentative procedure # Chronic hypotension - Continue home Midodrine # Hypothyroidism - Continue home Synthroid # Insulin dependent DM - Patient on ISS - FSBS ac and qhs w/ hypoglycemic protocol #History of CHF (unspecified) -Clinically, patient is third spacing fluids likely 2/2 to acute uncompensated cirrhosis less likely acute exacerbation of CHF # DVT Prophylaxis - TEDS and sequentials VS, I&O, 24H, Fishbone Vital Signs/I&O Vital Signs Date Time Temp Pulse Resp B/P (MAP) Pulse Ox O2 Delivery O2 Flow Rate FiO2 11/30/20 15:07 60 18 107/57 (74) 95 Room Air 11/30/20 12:00 96.2 11/30/20 10:50 3.0 I&O- Last 24 Hours up to 6 AM 11/30/20 06:00 Intake Total 2560 ml Output Total 125 ml Balance 2435 ml Laboratory Data 24H LABS Laboratory Tests 2 11/29/20 16:12: Lactic Acid Followup at 4 Hours 2.5*H 11/29/20 17:42: Bedside Glucose (Misc Panel) 145H 11/29/20 20:49: Bedside Glucose (Misc Panel) 118H 11/30/20 02:05: Urine Color YELLOW, Urine Appearance HAZY, Urine pH 5.0, Urine Specific [place] 1.009, Urine Protein NEGATIVE, Urine Glucose (UA) NEGATIVE, Urine Ketones NEGATIVE, Urine Blood NEGATIVE, Urine Nitrite NEGATIVE, Urine Bilirubin NEGATIVE, Urine Urobilinogen 0.2, Urine Leukocyte Esterase 3+H, Urine WBC (Auto) 46H, Urine RBC (Auto) 12H, Urine Hyaline Casts (Auto) 0, Urine Bacteria (Auto) NEGATIVE, Urine Squamous Epithelial Cells 0, Urine Sperm (Auto) 11/30/20 05:53: Hepatitis B Surface Antigen NEGATIVE, Hepatitis B Surface Antibody NEGATIVE, Hepatitis B Core IgM Antibody NEGATIVE, Hepatitis C Antibody Index 0.1 11/30/20 05:56: Nucleated Red Blood Cells % (auto) 0.0, Prothrombin Time 18.6H, Prothromb Time International Ratio 1.51, Anion Gap 15, Glomerular Filtration Rate 6.9L, Calcium Level 8.5L, Total Bilirubin 0.8, Direct Bilirubin 0.3H, Aspartate Amino Transf (AST/SGOT) 23, Alanine Aminotransferase (ALT/SGPT) 27, Alkaline Phosphatase 184H, Total Protein 4.5L, Albumin 2.3L, Albumin/Globulin Ratio 1.0 11/30/20 08:00: 11/30/20 11:28: Bedside Glucose (Misc Panel) 198H 11/30/20 15:04: Blood Gas Bicarbonate Standard 15.4L, Arterial Blood pH 7.313L, Arterial Blood Partial Pressure CO2 27.6L, Arterial Blood Partial Pressure O2 74.5L, Arterial Blood Total CO2 14.5L, Arterial Blood HCO3 13.7L, Arterial Blood Base Excess - 11.2L, Arterial Blood Oxygen Saturation 93.0L CBC/BMP Laboratory Tests 11/30/20 05:56 Microbiology Microbiology 11/30/20 Urine Culture, Received Pending 11/29/20 Gastrointestinal Tract Panel (PCR) - Final, Complete 11/28/20 Stool Occult Blood (ALEM) - Final, Complete 11/28/20 Blood Culture - Preliminary, Resulted No growth after 24 hours . All specim... 11/28/20 Blood Culture - Preliminary, Resulted No growth after 24 hours . All specim... 11/28/20 Respiratory Virus Panel (PCR) (ALEM) - Final, Complete GME ATTESTATION GME ATTESTATION My faculty preceptor for this patient encounter was physically present during the encounter and was fully available. All aspects of the patient interview, examination, medical decision making process, and medical care plan development were reviewed and approved by the faculty preceptor. The faculty preceptor is aware and concurs with the plan as stated in the body of this note and will attest to such by his/her cosignature. ATTENDING NOTE I, Sly Maguire, have independently examined this patient and performed my own physical exam, as well as reviewed the documentation and edited where necessary with the resident. For medical students we have performed the physical exam together and discussed medical decision making and I have verified the history. I have discussed in detail with the resident / student the findings and plan of treatment as documented by the resident / student and edited their note. I agree with their findings and treatment plan and have edited their documentation. I will continue to follow the patient during this hospital stay. Dontae Grewal DO Nov 30, 2020 15:24 SLY MAGUIRE MD Nov 30, 2020 17:12
--- NOTE | 2020-11-30 16:09 | CR.PDOC ---
General Date of Consultation: Nov 30, 2020 (800 am) Referring Provider: COLE EDOUARD DO Attending Physician: Val Kahn MD Consultation REASON FOR CONSULTATION/CHIEF COMPLAINT: Acute worsening of chronic kidney disease, requiring urgent hemodialysis and hemodialysis access. HISTORY OF PRESENT ILLNESS: Mr. Bassett is a 75 year old man who was hospitalized on 11/28/2020, with a 3-day history of black tarry stools, diarrhea and abdominal pain. He has an extensive medical history, notable for GALAVIZ with portal venous hypertension and recurrent ascites (paracentesis q2-4 weeks-last treatment 11/17/2020-apparently 7 L of fluid was removed), esophageal varices with banding, CHF, afib on Eliquis-2.5 mg twice a day, CKD stage 3, hypothyroidism, coronary artery disease, history of myocardial infarction, pacemaker, and testicular cancer-for which he had right sided orchiectomy. He was noted to have severe anemia, and metabolic acidosis, along with worsening renal functions. He was initially managed medically, further worsening renal functions. Although he is now on oliguric, his urine output has significantly decreased, and hemodialysis is being planned. His blood and stool cultures are negative. The stool occult blood is positive. The patient is right-handed. No history of renal insufficiency in the past. No history of alcohol or drug abuse. The patient had an upper endoscopy in July of 2020 and was found to have grade 2 varices. He lives alone. His daughter is his next of kin. PAST MEDICAL HISTORY: 1. GALAVIZ with ascites 2. Esophageal varices with banding 3. CHF 4. Afib on Eliquis 5. CKD stage 3 6. SBP (Sep 2020) 7. Hypothyroidism 8. Gout 9. IDDM 10. GERD 11. [place] x3 12. CAD 13. PINKY Although AAA has been mentioned in my office records, the CT scan of the abdomen and pelvis does not reveal any aortic aneurysm PAST SURGICAL HISTORY: 1. Paracentesis every 2 to 4 weeks 2. Esophageal variceal banding 3. CHF 4. Afib on Eliquis, left side pacemaker 5. CKD stage 3 6. SBP (Sep 2020) 7.Right testicular cancer with right orchiectomy 8. Cholecystectomy 9. Right knee arthroplasty 10. Left knee surgery 11. Cataract removal SOCIAL HISTORY: Tobacco use: Denies, reports he quit about ten years ago, before that he smoked for 50 years ETOH: Denies Illicit drug use: Denies IV drug use: Denies FAMILY HISTORY: Brother has DM II No other pertinent family history ALLERGIES: Please see below. REVIEW OF SYSTEMS: RESPIRATORY: Reports some mild SOB but attributes it to the buildup of ascites in his abdomen Review of systems, including the 12 m systems, apart from the above-mentioned history, is otherwise negative to the best of my knowledge HOME MEDICATIONS: Please see below. PHYSICAL EXAMINATION: GENERAL APPEARANCE: Patient is a pleasant 75 year old man who is in a propped up position, in no acute distress HEENT: Pallor+, no scleral icterus CARDIOVASCULAR: Rate is irregularly irregular, no murmur. No carotid bruits, left infraclavicular pacemaker. Radial pulses 2+, dorsalis pedis +1 palpable bilaterally LUNGS: Decreased air entry bilateral lung bases, otherwise CTA bilaterally ABDOMEN: Firm, non-tender, distended abdomen, ascites, open cholecystectomy scar, small umbilical hernia EXTREMITIES: Warm, perfused, trace pitting pedal edema bilaterally. Skin changes of chronic venous insufficiency on both legs Neurological: Grossly nonfocal exam PSYCHIATRIC: Appropriate mood and affect, cooperative LABORATORY DATA: Relevant labs and imaging reviewed Hemoglobin 9.4, platelets 176,000, INR 1.5, WBC 8.9 thousand, potassium 4.7 IMAGING: CXR, portable AP view - 11/28/2020 Impression: Stable chronic changes. Cannot exclude subtle basilar atelectasis CT Abd/Pelv w/o contrast 11/28/2020 FINDINGS: 1. Cirrhotic liver with splenomegaly and portal venous hypertension. Large amount of ascites noted throughout the abdomen and pelvis 2. Subtle cystic change in the body of the pancreas is suspected. 3. Kidneys demonstrate chronic atrophy and bilateral hypodensities suggesting cysts including large left renal cysts measuring up to roughly 6 cm. 4. The enteric system is without obstruction. Colonic and sigmoid diverticulosis noted. 5. Underlying acute process involving the enteric system cannot be excluded due to extensive mesenteric infiltration and ascites related to above-mentioned cirrhosis. 6. Pelvis demonstrates normal prostate gland and bladder wall thickening along with soft tissue and small calcifications along the posterior wall the bladder which are nonspecific. 7. Extensive atherosclerotic changes to the aorta and vasculature noted without aneurysm. 8. Skeletal structures demonstrate osteopenia and degenerative changes. ASSESSMENT/PLAN: Acute worsening of chronic kidney disease, in a patient with multiple medical problems(as mentioned in the history), including cirrhosis with portal venous hypertension, upper GI bleed-on octreotide drip. He requires urgent hemodialysis. Plan: Permacatheter insertion today Vital Signs/I&O Vital Signs Date Time Temp Pulse Resp B/P (MAP) Pulse Ox O2 Delivery O2 Flow Rate FiO2 11/30/20 15:07 60 18 107/57 (74) 95 Room Air 11/30/20 12:00 96.2 11/30/20 10:50 3.0 I&O- Last 24 Hours up to 6 AM 11/30/20 06:00 Intake Total 2560 ml Output Total 125 ml Balance 2435 ml Laboratory Data Labs 24H Laboratory Tests 2 11/29/20 16:12: Lactic Acid Followup at 4 Hours 2.5*H 11/29/20 17:42: Bedside Glucose (Misc Panel) 145H 11/29/20 20:49: Bedside Glucose (Misc Panel) 118H 11/30/20 02:05: Urine Color YELLOW, Urine Appearance HAZY, Urine pH 5.0, Urine Specific [place] 1.009, Urine Protein NEGATIVE, Urine Glucose (UA) NEGATIVE, Urine Ketones NEGATIVE, Urine Blood NEGATIVE, Urine Nitrite NEGATIVE, Urine Bilirubin NEGATIVE, Urine Urobilinogen 0.2, Urine Leukocyte Esterase 3+H, Urine WBC (Auto) 46H, Urine RBC (Auto) 12H, Urine Hyaline Casts (Auto) 0, Urine Bacteria (Auto) NEGATIVE, Urine Squamous Epithelial Cells 0, Urine Sperm (Auto) 11/30/20 05:53: Hepatitis B Surface Antigen NEGATIVE, Hepatitis B Surface Antibody NEGATIVE, Hepatitis B Core IgM Antibody NEGATIVE, Hepatitis C Antibody Index 0.1 11/30/20 05:56: Nucleated Red Blood Cells % (auto) 0.0, Prothrombin Time 18.6H, Prothromb Time International Ratio 1.51, Anion Gap 15, Glomerular Filtration Rate 6.9L, Calcium Level 8.5L, Total Bilirubin 0.8, Direct Bilirubin 0.3H, Aspartate Amino Transf (AST/SGOT) 23, Alanine Aminotransferase (ALT/SGPT) 27, Alkaline Phosphatase 184H, Total Protein 4.5L, Albumin 2.3L, Albumin/Globulin Ratio 1.0 11/30/20 08:00: 11/30/20 11:28: Bedside Glucose (Misc Panel) 198H 11/30/20 15:04: Blood Gas Bicarbonate Standard 15.4L, Arterial Blood pH 7.313L, Arterial Blood Partial Pressure CO2 27.6L, Arterial Blood Partial Pressure O2 74.5L, Arterial Blood Total CO2 14.5L, Arterial Blood HCO3 13.7L, Arterial Blood Base Excess - 11.2L, Arterial Blood Oxygen Saturation 93.0L CBC/BMP Laboratory Tests 11/30/20 05:56 Microbiology Microbiology 11/30/20 Urine Culture, Received Pending 11/29/20 Gastrointestinal Tract Panel (PCR) - Final, Complete 11/28/20 Stool Occult Blood (ALEM) - Final, Complete 11/28/20 Blood Culture - Preliminary, Resulted No Growth after 48 hours. All Specime... 11/28/20 Blood Culture - Preliminary, Resulted No Growth after 48 hours. All Specime... 11/28/20 Respiratory Virus Panel (PCR) (ALEM) - Final, Complete Allergies Coded Allergies: bumetanide (Verified Allergy, Unknown, UNKNOWN, 09/24/20) valsartan (Verified Allergy, Unknown, UNKNOWN REACTION, 09/24/20) Quinolones (Verified Adverse Reaction, Mild, GI UPSET, 09/24/20) atorvastatin (Verified Adverse Reaction, Mild, GI UPSET, 09/24/20) ciprofloxacin (Verified Adverse Reaction, Mild, nausea and vomiting, 09/24/20) Home Medications Scheduled Allopurinol (Allopurinol) 100 Mg Tablet, 100 MG PO DAILY, (Reported) Apixaban (Eliquis) 2.5 Mg Tablet, 2.5 MG PO BID, (Reported) Ascorbic Acid (Vitamin C) 500 Mg Tablet, 1,000 MG PO DAILY, (Reported) TAKES AT NOON Cholecalciferol (Vitamin D3) (Vitamin D3) 1,000 Unit Tablet, 2,000 UNITS PO DAILY, (Reported) TAKES AT NOON Colesevelam Hydrochloride (Welchol) 625 Mg Tablet, 3,750 MG PO QHS, (Reported) Glucosamine/Chondroitin/C/Clay (Glucosamine-Chondroitin Capsul) 1 Cap Cap, 1 CAP PO BID, (Reported) Insulin Aspart (Novolog Flexpen) 100 Unit/1 Ml Insuln.pen, 1 DOSE SC AC, (Reported) PER SLIDING SCALE Insulin Detemir (Levemir Flextouch) 100 Unit/1 Ml Insuln.pen, 30 UNIT SC BID, (Reported) Levothyroxine Sodium (Levothyroxine Sodium) 175 Mcg Tab, 175 MCG PO QAM, (Reported) Midodrine HCl (Midodrine HCl) 5 Mg Tablet, 5 MG PO TID, (Reported) Multivitamin (Multivitamins) 1 Each Tablet, 1 TAB PO DAILY, (Reported) TAKES AT NOON Pantoprazole Sodium (Pantoprazole Sodium) 40 Mg Tablet.dr, 40 MG PO DAILY, (Reported) Spironolactone (Spironolactone) 25 Mg Tablet, 25 MG PO DAILY, (Reported) Torsemide (Torsemide) 100 Mg Tablet, 50 MG PO BID, (Reported) Vit A/Vit C/Vit E/Zinc/Copper (Preservision Areds Softgel) 1 Each Capsule, 1 CAP PO BID, (Reported) Val Kahn MD Nov 30, 2020 16:09
--- NOTE | 2020-11-30 17:18 | ECGEPIP ---
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
[2020-11-30 17:53] LABS: HEMATOCRIT 28.3 % (42.0-52.0); HEMOGLOBIN 8.7 g/dl (13.5-17.5)
[2020-11-30] MEDS: OCTREOTIDE ACETATE 1,200 MCG in NS 238.8 ML IV SCH (18:54)
[2020-11-30] MEDS: COLESEVELAM 625 MG TAB (WELCHOL) PO SCH (20:23)
[2020-12-01] VITALS (23 sets, daily range): BP systolic 98–126; BP diastolic 55–68; O2SAT 91–100
[2020-12-01] MEDS ORDERED: MIDODRINE 5 MG TAB PO ONE (00:35)
[2020-12-01] MEDS: METOPROLOL TART 12.5 MG PER 1/2 TAB PO SCH ×3 (06:00→20:23)
[2020-12-01] MEDS: LEVOTHYROXINE 75MCG TABLET (0.075MG) PO SCH (06:30)
[2020-12-01 07:02] LABS: HEMATOCRIT 26.9 % (42.0-52.0); HEMOGLOBIN 8.4 g/dl (13.5-17.5); MEAN CORPUSCULAR HEMOGLOBIN 26.7 pg (27.0-33.0); MEAN CORPUSCULAR HGB CONC 31.2 g/dl (32.0-36.5); MEAN CORPUSCULAR VOLUME 85.4 fl (80.0-96.0); PLATELET COUNT, AUTOMATED 142 10^3/uL (150-450); RED BLOOD COUNT 3.15 10^6/uL (4.30-6.10); WHITE BLOOD COUNT 7.7 10^3/uL (4.0-10.0)
[2020-12-01 07:10] LABS: INR 1.36; PROTHROMBIN TIME 17.2 SECONDS (12.7-14.5)
[2020-12-01 07:27] LABS: ALBUMIN 2.5 GM/DL (3.2-5.2); BILIRUBIN,TOTAL 0.7 MG/DL (0.2-1.0); CALCIUM LEVEL 8.5 MG/DL (8.8-10.2); CREATININE FOR GFR 7.82 MG/DL (0.70-1.30); GLOMERULAR FILTRATION RATE 7.2 (>42); POTASSIUM SERUM 4.2 MEQ/L (3.5-5.1); TOTAL PROTEIN 4.9 GM/DL (6.4-8.2)
[2020-12-01] MEDS: cefTRIAXone SOD 1 GM in D5W MINI-BAG PLUS 50 ML IV SCH ×2 (08:00→20:31)
[2020-12-01] MEDS: VITAMIN D 1,000 INTERNATIONAL UNITS TABLET PO SCH (08:52)
[2020-12-01] MEDS: PANTOPRAZOLE 40MG VIAL (C9113 PER 1) IV SCH ×2 (08:53→20:23)
[2020-12-01] MEDS: MIDODRINE 5 MG TAB PO SCH ×3 (08:53→20:22)
[2020-12-01] MEDS: ASCORBIC ACID 500 MG TAB PO SCH (08:53)
[2020-12-01] MEDS: HumaLOG INSULIN (NovoLOG) PER UNIT SC SCH ×4 (09:15→20:35)
[2020-12-01] MEDS: SODIUM BICARBONATE 150 MEQ in STERILE WATER LITER BAG 1,000 ML IV SCH (11:31)
--- NOTE | 2020-12-01 11:34 | IPNPDOC ---
Subjective Date Seen The patient was seen on 12/01/20. Subjective Chief Complaint/HPI SUBJECTIVE: Overnight, Mr. Bassett had another episode of low O2 saturation and was started on 3L O2 NC. He states that he felt unable to take a deep breath or lie flat. He reports otherwise sleeping well. He also states that he has a firm and continent BM this morning in which he saw no obvious blood. He reports intermittent gas- like pain that is improving since yesterday and is relieved when he is able to pass gas. He denies fever, chills, night sweats, BUI, dizziness, cough, congestion, chest pain, N/V, dysuria, hematuria, pyuria. OBJECTIVE: General: Patient is awake, alert and pleasant, sitting in bedside chair HEENT: PERRLA, EOMI, sclera without icterus, pharynx pink and grossly normal, MMM CARDIOVASCULAR: Rate is irregularly irregular with an inconsistent 2/6 blowing systolic murmur. Radial pulses 2+ bilaterally LUNGS: Mild crackles in bilateral lung bases, otherwise CTA bilaterally ABDOMEN: Abdomen is firm, distended and non-tender to palpation. BS present and normoactive in all 4 quadrants Extremities: No obvious edema in legs on todays exam, PTAs and DPAs present bilaterally Psych: Appropriate mood and affect IMAGING: CXR, portable AP view 12/01/2020 IMPRESSION: Findings suggesting pulmonary vascular congestion along with lower lobe opacities/atelectasis and small right pleural effusion. CXR, portable AP view - 11/28/2020 Impression: Stable chronic changes. Cannot exclude subtle basilar atelectasis CT Abd/Pelv w/o contrast 11/28/2020 FINDINGS: 1. Cirrhotic liver with splenomegaly and portal venous hypertension. Large amount of ascites noted throughout the abdomen and pelvis 2. Subtle cystic change in the body of the pancreas is suspected. 3. Kidneys demonstrate chronic atrophy and bilateral hypodensities suggesting cysts including large left renal cysts measuring up to roughly 6 cm. 4. The enteric system is without obstruction. Colonic and sigmoid diverticulosis noted. 5. Underlying acute process involving the enteric system cannot be excluded due to extensive mesenteric infiltration and ascites related to above-mentioned cirrhosis. 6. Pelvis demonstrates normal prostate gland and bladder wall thickening along with soft tissue and small calcifications along the posterior wall the bladder which are nonspecific. 7. Extensive atherosclerotic changes to the aorta and vasculature noted without aneurysm. 8. Skeletal structures demonstrate osteopenia and degenerative changes. -09/24/20 CT that is compared to 11/28 CT not available in [facility] ASSESSMENT AND PLAN: Mr. Bassett is a 75 year old man with an extensive medical history, notable for GALAVIZ with recurrent ascites (paracentesis q2-4 weeks), esophageal varices SP banding, CHF, afib on Eliquis, CKD stage 3, hypothyroidism, AAA and right sided orchiectomy who presents to the [facility] ER with CC of black tarry stools for 3 days with left periumbilical abdominal pain which is intermittent over the last 4 days. He is admitted for suspicion of GI bleeding and GERARDO on CKD. Over the course of his stay he has had worsening kidney function and will now require dialysis. # Anemia - likely 2/2 renal disease, less likely 2/2 GI bleeding - Hx of esophageal varices with banding - Patient is hemodynamically stable - Hg remains stable; will follow trend - Stool occult resulted positive - s/p 1 unit PRBC - c/w Full liquid diet - c/w Octreotide - GI on consultation; no plans for EGD at this time # GERARDO on CKD3; possible component of hepatorenal syndrome - To improve with conservative therapy - PermCath inserted in IR 11/30 AM - Administered Albumin 5% x1; nephrology ordered 25% albumin infusion q12h - Patient was attempted on dialysis on 11/30; however was aborted because of hypotension - Nephrology consult completed (appreciate their input and recommendations) - CRRT pending condition s/p thearapeutic and ddx paracentesis # Metabolic acidosis - likely 2/2 diarrhea and GERARDO - Started on sodium bicarbonate drip 75mL/hr, 11/29 slightly worsened per nephrology increase sodium bicarbonate drip to 150mEq per liter and reassess - Monitor chemistries # GALAVIZ with ascites - Recurrent paracentesis (last on 11/17, 7000mL removed) - CT Abd Pelv 11/28 shows significant ascites, per nephrology- wait for improved kidney function before performing a paracentesis, 11/29 nephrology consult suggests diagnostic only paracentesis - Administering Albumin infusion 25% - SBP PPx with Rocephin (Zosyn given prior but eventually discontinued - Spironolactone on hold - Theraputic and diagnostic paracentesis scheduled 12/01 to optimize patient for dialysis # s/p Hyperkalemia - Likely 2/2 GERARDO and metabolic acidosis - Hold on use of Kayexalate pending repeat labs - K 11/28: 5.4, 11/29: 5.1, 11/30: 4.7, 12/01: 4.2 - Stable, will continue to monitor #Irregularity of bladder on imaging - possibly 2/2 malignancy - Patient has cytology completed on 11/10/2020; consistent with malignancy - Repeat cytology pending - Patient will need to further evaluation with oncology discharge # Afib on Eliquis - On 11/29 morning, patient had an episode of multiple runs of V. tach; had remained asymptomatic - Thyroid function noted - Troponin trend noted - EKG noted - c/w Metoprolol tartrate 12.5 mg PO [id number] with hold parameters - Eliquis held at this time pending paracentesis; will resume post-procedure if possible # Chronic hypotension - Continue home Midodrine # Hypothyroidism - Continue home Synthroid # Insulin dependent DM - Patient on ISS - FSBS ac and qhs w/ hypoglycemic protocol #History of CHF (unspecified) -Clinically, patient is third spacing fluids likely 2/2 to acute uncompensated cirrhosis less likely acute exacerbation of CHF # DVT Prophylaxis - TEDS and sequentials VS, I&O, 24H, Fishbone Vital Signs/I&O Vital Signs Date Time Temp Pulse Resp B/P (MAP) Pulse Ox O2 Delivery O2 Flow Rate FiO2 12/01/20 08:47 97.4 78 16 117/64 93 Nasal Cannula 3.0 I&O- Last 24 Hours up to 6 AM 12/01/20 06:00 Intake Total 2440.0 ml Output Total 200 ml Balance 2240.0 ml Laboratory Data 24H LABS Laboratory Tests 2 11/30/20 15:04: Blood Gas Bicarbonate Standard 15.4L, Arterial Blood pH 7.313L, Arterial Blood Partial Pressure CO2 27.6L, Arterial Blood Partial Pressure O2 74.5L, Arterial Blood Total CO2 14.5L, Arterial Blood HCO3 13.7L, Arterial Blood Base Excess - 11.2L, Arterial Blood Oxygen Saturation 93.0L 11/30/20 18:29: Bedside Glucose (Misc Panel) 193H 11/30/20 20:08: Bedside Glucose (Misc Panel) 207H 10/7/21 06:25: Nucleated Red Blood Cells % (auto) 0.0, Prothrombin Time 17.2H, Prothromb Time International Ratio 1.36, Anion Gap 16, Glomerular Filtration Rate 7.2L, Calcium Level 8.5L, Total Bilirubin 0.7, Aspartate Amino Transf (AST/SGOT) 18, Alanine Aminotransferase (ALT/SGPT) 25, Alkaline Phosphatase 160H, Total Protein 4.9L, Albumin 2.5L, Albumin/Globulin Ratio 1.0 CBC/BMP Laboratory Tests 11/30/20 17:20 12/01/20 06:25 Microbiology Microbiology 11/30/20 Urine Culture - Final, Complete 11/29/20 Gastrointestinal Tract Panel (PCR) - Final, Complete 11/28/20 Stool Occult Blood (ALEM) - Final, Complete 11/28/20 Blood Culture - Preliminary, Resulted No Growth after 48 hours. All Specime... 11/28/20 Blood Culture - Preliminary, Resulted No Growth after 48 hours. All Specime... 11/28/20 Respiratory Virus Panel (PCR) (ALEM) - Final, Complete GME ATTESTATION GME ATTESTATION My faculty preceptor for this patient encounter was physically present during the encounter and was fully available. All aspects of the patient interview, examination, medical decision making process, and medical care plan development were reviewed and approved by the faculty preceptor. The faculty preceptor is aware and concurs with the plan as stated in the body of this note and will attest to such by his/her cosignature. ATTENDING NOTE I, Sly Maguire, have independently examined this patient and performed my own physical exam, as well as reviewed the documentation and edited where necessary with the resident. For medical students we have performed the physical exam together and discussed medical decision making and I have verified the history. I have discussed in detail with the resident / student the findings and plan of treatment as documented by the resident / student and edited their note. I agree with their findings and treatment plan and have edited their documentation. I will continue to follow the patient during this hospital stay. Laxmi West DO Dec 01, 2020 11:34 SLY MAGUIRE MD Dec 01, 2020 12:48
[2020-12-01] MEDS ORDERED: SODIUM BICARBONATE 8.4% INJ 50MEQ 50 ML VIAL As Ordered ONE (12:53)
[2020-12-01 14:41] LABS: SOURCE, BODY FLUID ALBUMIN ASCITES
[2020-12-01 14:52] LABS: SOURCE, BODY FLUID GLUCOSE ASCITES; SOURCE, BODY FLUID TOT PROTEIN ASCITES; TOTAL PROTEIN, BODY FLUID 0.5 G/DL (NOT ESTABLISHED)
[2020-12-01 16:04] LABS: ASCITES FL COLOR PALE YELLOW (COLORLESS); SOURCE, BODY FLUID ASCITES
[2020-12-01 16:05] LABS: APPEARANCE, BODY FLUID HAZY (CLEAR)
--- NOTE | 2020-12-01 16:47 | REP ---
INDICATION: Abdominal distension / Send fluid to lab The patient has a history of ascites COMPARISON: None. TECHNIQUE: The procedure was performed by Celestina Ospina [facility], under the direct supervision of Dr. Marrero The risks and benefits of the procedure were explained to the patient and an informed consent was obtained both verbally and written. Directly prior to the start of the procedure a formal time-out was completed in the procedure room. The largest pocket of fluid was localized in the left flank using ultrasound guidance. The skin was prepped and draped in a sterile fashion. Eleven ML of buffered lidocaine was used as a local anesthetic. An 8-Kittitian multi side-hole catheter was inserted using trocar technique. FINDINGS: 29510 mL of yellow ascites was removed in total, 1300 was sent to the laboratory for further analysis, and the rest was discarded. The patient tolerated the procedure well and there were no immediate complications. After the appropriate amount of monitored convalescence, the patient was discharged from the department. IMPRESSION: [place] [address] [place] of yellow ascites. <Electronically signed by Celestina Ospina > 12/01/20 [id number] <Electronically signed by Chucho Marrero > 12/01/20 [id number]
--- NOTE | 2020-12-01 17:49 | IPN ---
NEPHROLOGY PROGRESS NOTE DATE: 11/30/2020 SUBJECTIVE: Mr. Bassett is seen this evening at his bedside. Earlier we tried to dialyze him and within 20 minutes of dialysis he became hypotensive with blood pressure down to 50's and he could not breathe due to which dialysis was terminated. I came to see him again now this evening in the PCU. He is laying in his bed and reports that he is feeling much better now. His abdominal distention is still significant due to ascites but he denies any nausea or vomiting. He still has no urine output. He denies any fever or chills. OBJECTIVE: PHYSICAL EXAMINATION: VITAL SIGNS: Temperature is 97.3 degrees Fahrenheit, heart rate 60 per minute and respiratory rate 16 per minute. Most recent blood pressure is now 108/58 mm of mercury and oxygen saturation is 95% on 3 liters oxygen. GENERAL APPEARANCE: He is pale looking but not in any acute distress. HEENT: His head is atraumatic. NECK: Supple and JVD not abnormally elevated. HEART: Sounds are irregular in rhythm. LUNGS: Diminished breath sounds. ABDOMEN: Obese and markedly distended with ascites and bowel sounds are present. EXTREMITIES: Without any cyanosis or clubbing. He has edema on all four limbs. NEUROLOGICAL: He is awake, alert and oriented x3. LABORATORY STUDIES: Labs showed WBC count of 9.4, hemoglobin 8.9 and hematocrit 29.3. This afternoon hemoglobin is 8.7 and hematocrit 28.3. Sodium 144, potassium 4.7, CO2 14, BUN 155 and creatinine 8.1. Total protein 4.5 and albumin 2.3. PROBLEMS: 1. Acute renal failure superimposed on chronic kidney disease - The patient remains oliguric and has not responded to IV albumin and fluids. We tried to dialyze him, however he did not tolerate it very well and dialysis was terminated. We have resumed his Midodrine without any hold parameters and we will try to dialyze him again in the morning and see how he does. If he could not tolerate dialysis, then he would need CRRT. I have discussed with the patient and he understands that he might be need to be transferred to the Intensive Care Unit for CRRT. 2. Cirrhosis of the liver with ascites - The patient has a large amount of ascites and he is in need for a paracentesis. We have been holding off on paracentesis due to risk of hypotension and no chance for recovery of kidney function. We will reevaluate in the morning and consider to do paracentesis before we consider dialysis. 3. Metabolic acidosis his acidosis persists and it is related to diarrhea and renal failure. His diarrhea has now improved but renal failure has not resolved. He is not making any urine at all. He remains on sodium bicarbonate drip. 4. Anemia with blood loss - The patient had melena stools and he was transfused one unit of packed RBCs. His anemia has remained mostly stable. He does not seem to have any more blood in the stool. His stool did test positive for occult blood. 5. Hypotension he does not seem to have any acute infection. He was recently treated for SBP. This time his peritoneal fluid did not seem to have any suggestion of infection. He remains on Ceftriaxone.
--- NOTE | 2020-12-01 18:09 | IPN ---
NEPHROLOGY PROGRESS NOTE DATE: 12/01/2020 SUBJECTIVE: Mr. Bassett is seen this morning at his bedside. He is laying in his bed without any acute distress. He feels that his abdominal distention has increased and he would like to get paracentesis today. Yesterday he did not tolerate dialysis very well which was terminated just after about 20 minutes. He has been on IV fluids with sodium bicarbonate due to metabolic acidosis and acute renal failure. OBJECTIVE: PHYSICAL EXAMINATION: VITAL SIGNS: Temperature is 97.4 degrees Fahrenheit, heart rate 70 per minute and respiratory rate 16 per minute, blood pressure 110/63 mm of mercury and oxygen saturation is 92%. GENERAL APPEARANCE: He is pale but not in any acute distress. HEENT: His head is atraumatic. NECK: Supple and without JVD or thyroid enlargement. HEART: Sounds are regular. LUNGS: Diminished breath sounds at the bases. ABDOMEN: Markedly distended with ascites. Bowel sounds are present. EXTREMITIES: Without any cyanosis or clubbing. Lower extremity edema is 2+. NEUROLOGICAL: He is awake, alert and at his baseline mentation. LABORATORY STUDIES: Today's labs show a WBC count of 7.7, hemoglobin 8.4 and hematocrit 26.9, platelet count 142. Sodium 143, potassium 4.2, chloride 110, CO2 17, BUN 140 and creatinine 7.82. Glucose 122 and calcium 8.5. PROBLEMS: 1. Oliguric acute renal failure - The patient has not responded to IV albumin, IV fluids and diuretics. We tried dialysis yesterday, however he did not tolerate this well. Our plan was to either switch him to CRRT or try dialysis again. The Intensive Care Unit has staffing issues so CRRT is probably not going to be possible today. We will get paracentesis done and then try dialysis again this afternoon. 2. Metabolic acidosis this is related to acute renal failure and diarrhea. His acidosis has improved only slightly with IV sodium bicarbonate drip. It will improve with dialysis and if he tolerates dialysis, then his sodium bicarbonate drip will be stopped. If he did not tolerate dialysis then we will switch him to CRRT and will have to transfer him to the Intensive Care Unit for that purpose. 3. Blood loss anemia his anemia remains stable and does not need any urgent transfusion. 4. Cirrhosis of liver with ascites - The patient has a large amount of ascites and I have discussed with his Hospitalist to get paracentesis done today. After paracentesis, we will consider to stop his IV fluids and a trial of dialysis again today. 5. Hypotension - blood pressure has been soft and he is relatively asymptomatic. He is able to get up and walk to the bathroom with assistance. We will continue with Midodrine for now.
--- NOTE | 2020-12-01 20:03 | IPN ---
PROGRESS NOTE DATE: 12/01/2020 Mr. Bassett is seen this morning on his bedside. He is lying in his bed without any acute distress. He feels that his abdominal distention has increased, and he would like to get paracentesis today. Yesterday he did not tolerate dialysis very well, which was terminated just after about 20 minutes. He has been on intravenous (IV) fluid with sodium bicarbonate due to metabolic acidosis and acute renal failure. PHYSICAL EXAMINATION: Temperature 97.4 degrees Fahrenheit, heart rate 70 per minute, respiratory rate 16 per minute, blood pressure 110/63 mmHg, and oxygen saturation 92%. He is pale but not in any acute distress. Head is atraumatic. Neck supple and without jugular venous distention (JVD) or thyroid enlargement. Heart sounds are regular and lungs with diminished breath sounds at bases. Abdomen markedly distended with ascites. Bowel sounds are present. Extremities without any cyanosis or clubbing. Lower extremity edema is 2+. Neurologically he is awake, alert, and at his baseline mentation. Today's labs show WBC count 7.7, hemoglobin 8.4, and hematocrit 26.9. Platelets 142. Sodium 143, potassium 4.2, chloride 110, CO2 of 17, BUN 140, and creatinine 7.82. Glucose 122 and calcium 8.5. PROBLEMS: 1. Oliguric acute renal failure. Patient has not responded to IV albumin, IV fluids, and diuretics. We tried dialysis yesterday; however, he did not tolerate well. Our plan was to either switch him to continuous renal replacement therapy (CRRT) or try dialysis again. Intensive care unit had staffing issues, so CRRT is probably not going to be possible today. We will get paracentesis done and then try dialysis again this afternoon. 2. Metabolic acidosis. This is related to acute renal failure and diarrhea. His acidosis has improved only slightly with IV sodium bicarbonate drip. It will improve with dialysis, and if he tolerates dialysis, then his sodium bicarbonate drip will be stopped. If he does not tolerate dialysis, then we will switch him to CRRT and will have to transfer him to intensive care unit for that purpose. 3. Blood loss anemia. His anemia remains stable and does not need any urgent transfusion. 4. Cirrhosis of liver with ascites. Patient has large amount of ascites, and I have discussed with his hospitalist to get paracentesis done today. After paracentesis, we will consider to stop his IV fluid and trial of dialysis again today. 5. Hypotension. Blood pressure has been soft, and he is relatively asymptomatic. He is able to get up and walk to the bathroom with assistance. We will continue with midodrine for now.
[2020-12-01] MEDS: COLESEVELAM 625 MG TAB (WELCHOL) PO SCH (20:36)
[2020-12-02] VITALS (20 sets, daily range): BP systolic 90–106; BP diastolic 43–56; O2SAT 85–100
[2020-12-02] MEDS: METOPROLOL TART 12.5 MG PER 1/2 TAB PO SCH ×4 (05:39→17:23)
[2020-12-02] MEDS: LEVOTHYROXINE 75MCG TABLET (0.075MG) PO SCH (05:43)
[2020-12-02 06:23] LABS: HEMATOCRIT 26.7 % (42.0-52.0); HEMOGLOBIN 8.2 g/dl (13.5-17.5); MEAN CORPUSCULAR HEMOGLOBIN 26.9 pg (27.0-33.0); MEAN CORPUSCULAR HGB CONC 30.7 g/dl (32.0-36.5); MEAN CORPUSCULAR VOLUME 87.5 fl (80.0-96.0); PLATELET COUNT, AUTOMATED 117 10^3/uL (150-450); RED BLOOD COUNT 3.05 10^6/uL (4.30-6.10); WHITE BLOOD COUNT 7.2 10^3/uL (4.0-10.0)
[2020-12-02 06:33] LABS: INR 1.45; PROTHROMBIN TIME 18.1 SECONDS (12.7-14.5)
[2020-12-02 06:47] LABS: ALBUMIN 2.4 GM/DL (3.2-5.2); BILIRUBIN,TOTAL 0.6 MG/DL (0.2-1.0); CALCIUM LEVEL 8.5 MG/DL (8.8-10.2); CREATININE FOR GFR 5.67 MG/DL (0.70-1.30); GLOMERULAR FILTRATION RATE 10.5 (>42); POTASSIUM SERUM 4.2 MEQ/L (3.5-5.1); TOTAL PROTEIN 4.5 GM/DL (6.4-8.2)
[2020-12-02] MEDS: MIDODRINE 5 MG TAB PO SCH ×3 (07:58→17:37)
[2020-12-02] MEDS: ASCORBIC ACID 500 MG TAB PO SCH (07:58)
[2020-12-02] MEDS: PANTOPRAZOLE 40MG VIAL (C9113 PER 1) IV SCH (07:58)
[2020-12-02] MEDS: VITAMIN D 1,000 INTERNATIONAL UNITS TABLET PO SCH (07:58)
[2020-12-02] MEDS: cefTRIAXone SOD 1 GM in D5W MINI-BAG PLUS 50 ML IV SCH (07:59)
[2020-12-02] MEDS: HumaLOG INSULIN (NovoLOG) PER UNIT SC SCH ×4 (07:59→20:00)
--- NOTE | 2020-12-02 11:42 | IPNPDOC ---
Subjective Date Seen The patient was seen on 12/02/20. Subjective Chief Complaint/HPI SUBJECTIVE: Today Mr. Bassett is s/p diagnostic and therapeutic paracentesis with removal of 1000mL and he reports significant relief of discomfort and SOB. He reports that he has been able to urinate and has had two continent semi-firm BMs that were brown. He also reports that he has been up and walking more than previously. He states that he still has some mild SOB but with great improvement. He denies fever, chills, night sweats, chest pain, abdominal pain, N/V/D/C, dysuria, pyuria, hematuria, hematochezia, lower extremity edema, pain/numbness/tingling in all four extremities. OBJECTIVE: GENERAL: Patient is awake, alert and pleasant, sitting in bedside chair HEENT: PERRLA, EOMI, sclera without icterus, pharynx pink and grossly normal, MMM CARDIOVASCULAR: Rate is irregularly irregular with an inconsistent 2/6 blowing systolic murmur. Radial pulses 2+ bilaterally LUNGS: Mild crackles in bilateral lung bases improved from previous exam, otherwise CTA bilaterally ABDOMEN: Abdomen is firm, significantly less distended than previous exam and non-tender to palpation. BS present and normoactive in all 4 quadrants Extremities: No obvious edema in legs on todays exam, PTAs and DPAs present bilaterally Psych: Appropriate mood and affect IMAGING: CXR, portable AP view 12/01/2020 IMPRESSION: Findings suggesting pulmonary vascular congestion along with lower lobe opacities/atelectasis and small right pleural effusion. CXR, portable AP view - 11/28/2020 Impression: Stable chronic changes. Cannot exclude subtle basilar atelectasis CT Abd/Pelv w/o contrast 11/28/2020 FINDINGS: 1. Cirrhotic liver with splenomegaly and portal venous hypertension. Large amount of ascites noted throughout the abdomen and pelvis 2. Subtle cystic change in the body of the pancreas is suspected. 3. Kidneys demonstrate chronic atrophy and bilateral hypodensities suggesting cysts including large left renal cysts measuring up to roughly 6 cm. 4. The enteric system is without obstruction. Colonic and sigmoid diverticulosis noted. 5. Underlying acute process involving the enteric system cannot be excluded due to extensive mesenteric infiltration and ascites related to above-mentioned cirrhosis. 6. Pelvis demonstrates normal prostate gland and bladder wall thickening along with soft tissue and small calcifications along the posterior wall the bladder which are nonspecific. 7. Extensive atherosclerotic changes to the aorta and vasculature noted without aneurysm. 8. Skeletal structures demonstrate osteopenia and degenerative changes. -09/24/20 CT that is compared to 11/28 CT not available in [facility] ASSESSMENT AND PLAN: Mr. Bassett is a 75 year old man with an extensive medical history, notable for GALAVIZ with recurrent ascites (paracentesis q2-4 weeks), esophageal varices SP banding, CHF, afib on Eliquis, CKD stage 3, hypothyroidism, AAA and right sided orchiectomy who presents to the [facility] ER with CC of black tarry stools for 3 days with left periumbilical abdominal pain which is intermittent over the last 4 days. He is admitted for suspicion of GI bleeding and GERARDO on CKD. Over the course of his stay he has had worsening kidney function and will now require dialysis. He is s/p paracentesis with improvement in SOB and abdominal discomfort. He will transition to PO medications at this time. # Oliguric ARF on CKD3; possible component of hepatorenal syndrome - PermCath inserted in IR 11/30 AM - Administered Albumin 5% x1; Nephrology ordered 25% albumin infusion q12h - Patient will be dialyzed 11/30; however did not tolerate due to hypotension - s/p 1st complete HD session yesterday (12/01) which took out 1.7L- tolerated procedure without hemodyn compromise. - Pt has been oliguric for past 2 days but has had some more UO today and depending on UO, Neprhology will decide on the need for further HD. # Anemia - likely 2/2 renal disease, less likely 2/2 GI bleeding - Hx of esophageal varices with banding - Patient is hemodynamically stable - Hg remains stable; will follow trend - Stool occult resulted positive - s/p 1 unit PRBC - c/w Full liquid diet - s/p Octreotide; low suspicion of esophageal varices as source of blood loss at this time - GI on consultation; no plans for EGD at this time # Metabolic acidosis - likely 2/2 diarrhea and GERARDO - s/p bicarb gtt and s/p paracentesis and HD which took out about 11.7L of fluid total between para and HD. Metabolic acidosis has now resolved. Nephrology on consultation- appreciate further recs and input. # GALAVIZ with ascites - Recurrent paracentesis (last on 11/17, 7000mL removed) - CT Abd Pelv 11/28 shows significant ascites, per nephrology- wait for improved kidney function before performing a paracentesis, 11/29 nephrology consult suggests diagnostic only paracentesis - Administering Albumin infusion 25% q12h - SBP PPx; Will start Cipro; Will DC Ceftriaxone; s/p Zosyn (Will complete total of 10 days of abx) - Therapeutic and diagnostic paracentesis on 12/01 was performed and 10,000cc fluid removed; Cytology pending # s/p Hyperkalemia - Likely 2/2 GERARDO and metabolic acidosis - Hold on use of Kayexalate pending repeat labs - K 11/28: 5.4, 11/29: 5.1, 11/30: 4.7, 12/01: 4.2, 12/02: 4.2 - Stable, will continue to monitor #Irregularity of bladder on imaging - possibly 2/2 malignancy - Patient has cytology completed on 11/10/2020; consistent with malignancy - Patient will need to further evaluation with oncology discharge # Afib on Eliquis - Eliquis held at this time pending upper endoscopy per GI - s/p paracentesis and pending ascitic fluid results; s/p endoscopy - Discussed with GI; will resume Eliquis today # Chronic hypotension - Continue home Midodrine # Hypothyroidism - Continue home Synthroid # Insulin dependent DM - Patient on ISS - FSBS ac and qhs w/ hypoglycemic protocol #History of CHF (unspecified) -Clinically, patient is third spacing fluids likely 2/2 to acute uncompensated cirrhosis less likely acute exacerbation of CHF # DVT Prophylaxis - TEDS and sequentials - Discussed with GI; will resume Eliquis Disposition: pending clinical improvement VS, I&O, 24H, Fishbone Vital Signs/I&O Vital Signs Date Time Temp Pulse Resp B/P (MAP) Pulse Ox O2 Delivery O2 Flow Rate FiO2 12/02/20 09:00 97 Room Air 12/02/20 08:03 97.8 59 19 93/54 (67) 3.0 I&O- Last 24 Hours up to 6 AM 12/02/20 06:00 Intake Total 1250.0 ml Output Total 1420 ml Balance -170.0 ml Laboratory Data 24H LABS Laboratory Tests 2 12/01/20 12:21: Bedside Glucose (Misc Panel) 173H 12/01/20 14:16: Body Fluid Source ASCITES, Body Fluid Color PALE YELLOW, Body Fluid Appearance HAZY, Body Fluid Specific [place] 1.010, Body Fluid WBC (Auto) 95H, Body Fluid RBC (Auto) < 2, Body Fluid Mononuclear Cells % Auto 87.3H, Fluid Polymorph onuclear Cell % Auto 12.7H, Body Fluid Glucose Source ASCITES, Body Fluid Glucose 183, Body Fluid Protein Source ASCITES, Body Fluid Total Protein 0.5, Body Fluid Albumin Source ASCITES, Body Fluid Albumin 0.1 12/01/20 18:41: Bedside Glucose (Misc Panel) 96 12/01/20 20:27: Bedside Glucose (Misc Panel) 277H 12/02/20 05:56: Nucleated Red Blood Cells % (auto) 0.0, Prothrombin Time 18.1H, Prothromb Time International Ratio 1.45, Anion Gap 11, Glomerular Filtration Rate 10.5L, Calcium Level 8.5L, Total Bilirubin 0.6, Aspartate Amino Transf (AST/SGOT) 19, Alanine Aminotransferase (ALT/SGPT) 24, Alkaline Phosphatase 151H, Total Protein 4.5L, Albumin 2.4L, Albumin/Globulin Ratio 1.1 CBC/BMP Laboratory Tests 12/02/20 05:56 Microbiology Microbiology 12/01/20 Acid Fast Stain, Received Pending 12/01/20 Mycobacterial Culture, Received Pending 12/01/20 Fungal Smear, Received Pending 12/01/20 Fungal Culture, Received Pending 12/01/20 Gram Stain - Final, Resulted 12/01/20 Body Fluid Culture, Resulted Pending 11/30/20 Urine Culture - Final, Complete 11/29/20 Gastrointestinal Tract Panel (PCR) - Final, Complete 11/28/20 Stool Occult Blood (ALEM) - Final, Complete 11/28/20 Blood Culture - Preliminary, Resulted No Growth after 72 hours. All specime... 11/28/20 Blood Culture - Preliminary, Resulted No Growth after 72 hours. All specime... 11/28/20 Respiratory Virus Panel (PCR) (ALEM) - Final, Complete GME ATTESTATION GME ATTESTATION My faculty preceptor for this patient encounter was physically present during the encounter and was fully available. All aspects of the patient interview, examination, medical decision making process, and medical care plan development were reviewed and approved by the faculty preceptor. The faculty preceptor is aware and concurs with the plan as stated in the body of this note and will attest to such by his/her cosignature. ATTENDING NOTE I, Sly Maguire, have independently examined this patient and performed my own physical exam, as well as reviewed the documentation and edited where necessary with the resident. For medical students we have performed the physical exam together and discussed medical decision making and I have verified the history. I have discussed in detail with the resident / student the findings and plan of treatment as documented by the resident / student and edited their note. I agree with their findings and treatment plan and have edited their documentation. I will continue to follow the patient during this hospital stay. Laxmi West DO Dec 02, 2020 11:42 SLY MAGUIRE MD Dec 02, 2020 14:31
--- NOTE | 2020-12-02 12:34 | IPN ---
PROGRESS NOTE DATE: 12/02/2020 SUBJECTIVE: Mr. Bassett is seen this morning on his bedside. He is sitting in the chair at the time of my visit. He is feeling much better today and reports that he did have some urine this morning. He had a paracentesis yesterday with 10 liters of fluid removal and then we dialyzed him and removed another 1300 ml fluid with dialysis. In addition, his IV fluid has been stopped. His metabolic acidosis and hyperkalemia improved with dialysis. He reports a good appetite and did have a breakfast this morning. OBJECTIVE: VITAL SIGNS: Temperature is 97.8 degrees Fahrenheit, heart rate is 60 per minute and respiratory rate is 18 per minute. Blood pressure is 93/54 mmHg and oxygen saturation is 98% on 3 liters of oxygen. HEENT: His head is atraumatic. NECK: Neck veins are not abnormally distended. He is edentulous and without any oral thrush or ulcers. HEART: Heart sounds are irregular. LUNGS: Clear to auscultation. ABDOMEN: Much less distended now that 10 liters of ascites was drained yesterday. Bowel sounds are present. EXTREMITIES: Without any cyanosis or clubbing. Lower extremity edema is still present, 1+. NEUROLOGIC: He is awake, alert and oriented x3. LABORATORY DATA: Today's labs shows a sodium of 140, potassium of 4.2, CO2 24, BUN 82 and creatinine 5.67. Glucose is 143 and calcium is 8.5. WBC count is 7.2, hemoglobin is 8.2 and hematocrit is 26.7. Platelets are 117,000. PROBLEMS: 1. Acute renal failure superimposed on chronic kidney disease. Patient has been oliguric and was dialyzed yesterday. He was able to tolerate dialysis well. Patient is still oliguric, however he feels he did have some urine output. We will plan to do dialysis again tomorrow. 2. 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 Patient had 10 liters of ascites drained yesterday. He remains on IV albumin and Octreotide. He is also on Midodrine. 3. Anemia, his anemia is essentially unchanged. He had only one unit of packed RBCs transfused. There is no active bleeding at this point. 4. Hypotension, blood pressure has been soft and we will continue with Midodrine 5 mg t.i.d.
[2020-12-02] MEDS: CIPROFLOXACIN 500MG TABLET PO SCH ×2 (17:37→17:40)
[2020-12-02] MEDS: COLESEVELAM 625 MG TAB (WELCHOL) PO SCH (20:00)
[2020-12-02] MEDS: APIXABAN 2.5 MG TAB (ELIQUIS) PO SCH (20:00)
[2020-12-03] VITALS (11 sets, daily range): BP systolic 90–112; BP diastolic 54–64; O2SAT 89–97
[2020-12-03] MEDS: METOPROLOL TART 12.5 MG PER 1/2 TAB PO SCH ×4 (05:20→18:00)
[2020-12-03] MEDS: LEVOTHYROXINE 75MCG TABLET (0.075MG) PO SCH (05:20)
[2020-12-03 06:40] LABS: INR 1.43; PROTHROMBIN TIME 17.9 SECONDS (12.7-14.5)
[2020-12-03 07:02] LABS: BASO % 0.3 % (0.0-1.0); EOS # 0.5 10^3/uL (0.0-0.5); EOS % 6.6 % (0.0-3.0); HEMATOCRIT 27.8 % (42.0-52.0); HEMOGLOBIN 8.3 g/dl (13.5-17.5); LYMPH # 0.6 10^3/uL (1.5-5.0); LYMPH % 9.3 % (24.0-44.0); MEAN CORPUSCULAR HEMOGLOBIN 26.6 pg (27.0-33.0); MEAN CORPUSCULAR HGB CONC 29.9 g/dl (32.0-36.5); MEAN CORPUSCULAR VOLUME 89.1 fl (80.0-96.0); MONO # 0.7 10^3/uL (0.0-0.8); MONO % 10.1 % (2.0-8.0); NEUTROPHILS % 73.3 % (36.0-66.0); PLATELET COUNT, AUTOMATED 118 10^3/uL (150-450); RED BLOOD COUNT 3.12 10^6/uL (4.30-6.10); WHITE BLOOD COUNT 6.9 10^3/uL (4.0-10.0)
[2020-12-03] MEDS: HumaLOG INSULIN (NovoLOG) PER UNIT SC SCH ×4 (07:30→20:15)
[2020-12-03 07:58] LABS: ALBUMIN 2.3 GM/DL (3.2-5.2); BILIRUBIN,TOTAL 0.6 MG/DL (0.2-1.0); CALCIUM LEVEL 8.2 MG/DL (8.8-10.2); CREATININE FOR GFR 6.34 MG/DL (0.70-1.30); GLOMERULAR FILTRATION RATE 9.2 (>42); MAGNESIUM LEVEL 2.1 MG/DL (1.8-2.4); POTASSIUM SERUM 4.1 MEQ/L (3.5-5.1); TOTAL PROTEIN 4.5 GM/DL (6.4-8.2)
[2020-12-03] MEDS: MIDODRINE 5 MG TAB PO SCH ×3 (09:31→18:06)
[2020-12-03] MEDS: ASCORBIC ACID 500 MG TAB PO SCH (09:32)
[2020-12-03] MEDS: VITAMIN D 1,000 INTERNATIONAL UNITS TABLET PO SCH (09:32)
[2020-12-03] MEDS: PANTOPRAZOLE 40MG TAB (PROTONIX) PO SCH (09:32)
[2020-12-03] MEDS: APIXABAN 2.5 MG TAB (ELIQUIS) PO SCH ×2 (09:32→20:15)
[2020-12-03] MEDS ORDERED: DARBEPOETIN 200MCG/0.4ML *DIALYSIS* SYRINGE (J0882 PER 1MCG) IV SCH (10:40)
--- NOTE | 2020-12-03 11:37 | IPNPDOC ---
Subjective Date Seen The patient was seen on 12/03/20. Subjective Chief Complaint/HPI SUBJECTIVE: Patient was seen at bedside this morning. He reports that he is making some urine. He also did have another bowel movement this morning as well. He did not have any acute events reported by the nurse or by him overnight. He does however want to advance his diet. He denies any increasing shortness of breath from baseline.denies any fever, chills, night sweats, chest pain, abdominal pain, N/V/D/C, dysuria, pyuria, hematuria, hematochezia, lower extremity edema, pain/numbness/tingling in all four extremities. OBJECTIVE: Vital signs: See below GENERAL: Patient is awake, alert and pleasant, sitting in bedside chair eating his breakfast. He is not in any acute respiratory distress HEENT: PERRLA, EOMI, sclera without icterus, pharynx pink and grossly normal. Moist mucous membrane. CARDIOVASCULAR: Rate is irregularly irregular. No significant murmur gallops rubs appreciated on auscultation. Radial pulses 2+ bilaterally. 1+ pitting edema bilaterally LUNGS: Mild crackles in bilateral lung bases. No wheezing rhonchi rales on auscultation. ABDOMEN: Abdomen is firm, protuberant, significantly less distended than prior exam. Non-tender, no guarding on palpation. BS present and normoactive in all 4 quadrants Extremities: No significant bruising petechiae clubbing appreciated. PTAs and DPAs present bilaterally Psych: Very pleasant, appropriate mood and affect IMAGING: CXR, portable AP view - 11/28/2020 Stable chronic changes. Cannot exclude subtle basilar atelectasis CT Abd/Pelv w/o contrast 11/28/2020 1. Cirrhotic liver with splenomegaly and portal venous hypertension. Large amount of ascites noted throughout the abdomen and pelvis 2. Subtle cystic change in the body of the pancreas is suspected. 3. Kidneys demonstrate chronic atrophy and bilateral hypodensities suggesting cysts including large left renal cysts measuring up to roughly 6 cm. 4. The enteric system is without obstruction. Colonic and sigmoid diverticulosis noted. 5. Underlying acute process involving the enteric system cannot be excluded due to extensive mesenteric infiltration and ascites related to above-mentioned cirrhosis. 6. Pelvis demonstrates normal prostate gland and bladder wall thickening along with soft tissue and small calcifications along the posterior wall the bladder which are nonspecific. 7. Extensive atherosclerotic changes to the aorta and vasculature noted without aneurysm. 8. Skeletal structures demonstrate osteopenia and degenerative changes. CXR, portable AP view 12/01/2020 Findings suggesting pulmonary vascular congestion along with lower lobe opacities/atelectasis and small right pleural effusion. Paracentesis 12/01: 60194 mL of yellow ascites was removed in total, 1300 was sent to the laboratory for further analysis, and the rest was discarded. ASSESSMENT AND PLAN: This is a 75 year old man with an extensive medical history, notable for GALAVIZ with recurrent ascites (paracentesis q2-4 weeks), esophageal varices SP banding, CHF, afib on Eliquis, CKD stage 3, hypothyroidism, AAA and right sided orchiectomy who presents to the [facility] ER with CC of black tarry stools for 3 days with left periumbilical abdominal pain which is intermittent over the last 4 days. He is admitted for suspicion of GI bleeding and GERARDO on CKD. Over the course of his stay he has had worsening kidney function and will now require dialysis. He is s/p paracentesis with improvement in SOB and abdominal discomfort. # Oliguric ARF on CKD3; possible component of hepatorenal syndrome - PermCath inserted in IR 11/30 status post 2 rounds of hemodialysis - Initially could not tolerate hemodialysis due to hemodynamic compromise however patient was able to tolerate HD s/p paracentesis (w/ 10 L removed) - Status post albumin infusions with HD. - Pt has been oliguric for past 2 days but did have some more urine output yesterday and also reports some today. - Creatinine function has bumped up again and patient may require HD again. - Nephrology on consultation; appreciate their recommendations and further input. # GALAVIZ cirrhosis with ascites -Initially patient had acute renal failure superimposed on CKD with profound metabolic acidosis. -Patient underwent initial hemodialysis without any hemodynamic compromise however he did not tolerate the second HD due to profound hypotension. -Decision was made to undergo paracentesis with albumin infusion which he did tolerate and 10 L ascitic fluid removed and sent for analysis. -Underwent hemodialysis s/p 10L fluid removal per paracentesis and tolerated that without hemodynamic compromise with additional 1.7 L fluid removal. -Patient has history of SBP was during this hospitalization he was given 1 dose of Zosyn and continued on IV Rocephin for SBP prophylaxis with transition to p.o. ciprofloxacin. # Anemia - likely 2/2 renal disease, less likely 2/2 GI bleeding - Initial stool occult resulted positive and patient has a hx of esophageal varices with banding. - s/p 1 unit PRBC - Patient has had prior EGDs; per GI/on consultation which did not show any variceal bleeds. - s/p Octreotide. - Patient has been hemodynamically stable. - Hg remains stable; will continue to trend - We will transition his diet to 2 g sodium diet and high-protein diet today - GI on consultation; Appreciate their recommendations and further input # Metabolic acidosis - likely 2/2 diarrhea and GERARDO - He is status post bicarb drip and albumin infusions with improved acidosis. - s/p bicarb gtt and s/p paracentesis and HD which took out about 11.7L of fluid total between para and HD. Metabolic acidosis has now resolved. Nephrology on consultation- appreciate further recs and input. # s/p Hyperkalemia - Likely 2/2 GERARDO and metabolic acidosis - Hold on use of Kayexalate pending repeat labs - K 11/28: 5.4, 11/29: 5.1, 11/30: 4.7, 12/01: 4.2, 12/02: 4.2 - Stable, will continue to monitor #Irregularity of bladder on imaging - possibly 2/2 malignancy - Patient has cytology completed on 11/10/2020; consistent with malignancy - Patient will need to further evaluation with oncology discharge # Afib on Eliquis - On 11/29 morning, patient had an episode of multiple runs of V. tach; had remained asymptomatic - likely 2/2 electrolyte / acid-base imbalances - Thyroid function noted - Troponin trend noted - EKG noted - c/w Metoprolol tartrate 12.5 mg PO [id number] with hold parameters - Eliquis has been resumed after discussion with GI # Chronic hypotension - Continue home Midodrine # Hypothyroidism - Continue home Synthroid # Insulin dependent DM - Patient on ISS - FSBS ac and qhs w/ hypoglycemic protocol #History of CHF (unspecified) -Clinically, patient is third spacing fluids likely 2/2 to acute uncompensated cirrhosis less likely acute exacerbation of CHF # DVT Prophylaxis: - c/w Full anticoagulation with Eliquis Code status: - Full Disposition: - Pending clinical improvement VS, I&O, 24H, Fishbone Vital Signs/I&O Vital Signs Date Time Temp Pulse Resp B/P (MAP) Pulse Ox O2 Delivery O2 Flow Rate FiO2 12/03/20 10:00 94 Room Air 12/03/20 08:00 98.0 64 18 112/64 (80) 2.0 I&O- Last 24 Hours up to 6 AM 12/03/20 06:00 Intake Total 840 ml Output Total 100 ml Balance 740 ml Laboratory Data 24H LABS Laboratory Tests 2 12/02/20 12:23: Bedside Glucose (Misc Panel) 202H 12/02/20 17:36: Bedside Glucose (Misc Panel) 111H 12/02/20 19:59: Bedside Glucose (Misc Panel) 92 12/03/20 05:44: Immature Granulocyte % (Auto) 0.4, Neutrophils (%) (Auto) 73.3H, Lymphocytes (%) (Auto) 9.3L, Monocytes (%) (Auto) 10.1H, Eosinophils (%) (Auto) 6.6H, Basophils (%) (Auto) 0.3, Neutrophils # (Auto) 5.0, Lymphocytes # (Auto) 0.6L, Monocytes # (Auto) 0.7, Eosinophils # (Auto) 0.5, Basophils # (Auto) 0.0, Nucleated Red Blood Cells % (auto) 0.0, Anion Gap 11, Glomerular Filtration Rate 9.2L, Calcium Level 8.2L, Magnesium Level 2.1, Total Bilirubin 0.6, Aspartate Amino Transf (AST/SGOT) 18, Alanine Aminotransferase (ALT/SGPT) 27, Alkaline Phosphatase 158H, Total Protein 4.5L, Albumin 2.3L, Albumin/Globulin Ratio 1.0 12/03/20 05:49: Prothrombin Time 17.9H, Prothromb Time International Ratio 1.43 12/03/20 06:45: Bedside Glucose (Misc Panel) 136H CBC/BMP Laboratory Tests 12/03/20 05:44 Microbiology Microbiology 12/01/20 Acid Fast Stain, Received Pending 12/01/20 Mycobacterial Culture, Received Pending 12/01/20 Fungal Smear, Received Pending 12/01/20 Fungal Culture, Received Pending 12/01/20 Gram Stain - Final, Complete 12/01/20 Body Fluid Culture - Final, Complete 11/30/20 Urine Culture - Final, Complete 11/29/20 Gastrointestinal Tract Panel (PCR) - Final, Complete 11/28/20 Stool Occult Blood (ALEM) - Final, Complete 11/28/20 Blood Culture - Preliminary, Resulted No Growth after 72 hours. All specime... 11/28/20 Blood Culture - Preliminary, Resulted No Growth after 72 hours. All specime... 11/28/20 Respiratory Virus Panel (PCR) (ALEM) - Final, Complete GME ATTESTATION GME ATTESTATION My faculty preceptor for this patient encounter was physically present during the encounter and was fully available. All aspects of the patient interview, examination, medical decision making process, and medical care plan development were reviewed and approved by the faculty preceptor. The faculty preceptor is aware and concurs with the plan as stated in the body of this note and will attest to such by his/her cosignature. ATTENDING NOTE I, Sly Hdez, have independently examined this patient and performed my own physical exam, as well as reviewed the documentation and edited where necessary with the resident. For medical students we have performed the physical exam together and discussed medical decision making and I have verified the history. I have discussed in detail with the resident / student the findings and plan of treatment as documented by the resident / student and edited their note. I agree with their findings and treatment plan and have edited their documentation. I will continue to follow the patient during this hospital stay. Laxmi West DO Dec 03, 2020 10:57 SLY HDEZ MD Dec 03, 2020 13:23
[2020-12-03] MEDS: CIPROFLOXACIN 500MG TABLET PO SCH (18:06)
[2020-12-03] MEDS: COLESEVELAM 625 MG TAB (WELCHOL) PO SCH (20:15)
--- NOTE | 2020-12-03 22:32 | IPNPDOC ---
Subjective CC/HPI The patient is a 75-year-old male admitted with a reason for visit of Acute On Chronic Renal Failure. Events since last encounter Pt was seen and examined during rounds in AM and again during HD in afternoon. He was hypotensive and nauseated during HD so fluid removal was stopped. No signs of renal improvement. Cr rising between HD. General: Reports: Fatigue; Denies: Chills, Night Sweats Constitutional: Reports: Malaise; Denies: Chills, Fever Eyes: Denies: Pain, Vision change ENT: Denies: Head Aches, Ear Pain Skin: Denies: Rash, Lesions Pulmonary: Denies: Dyspnea, Cough Cardiovascular: Denies: Chest Pain, Palpitations Gastrointestinal: Reports: Nausea, Other Symptoms (Ascites and Cirrhosis) Genitourinary: Denies: Dysuria, Frequency Hematologic: Denies: Bruising, Bleeding Excessively Musculoskeletal: Denies: Neck Pain, Back Pain Neurological: Reports: Weakness; Denies: Confusion Psych: Reports: Depression Objective Physical Examination General Exam: Alert, Mild Distress (Hypotensive and nauseated during HD) EYE EXAM: PERRLA, EOMI, Sclera icteric ENT EXAM: Atraumatic, Mucous membr. moist/pink Neck Exam: Supple; No: JVD Chest Exam: Clear to auscultation, Normal air movement Heart Exam: Rate Normal, Normal S1, Normal S2; No: Murmurs, Rubs ABDOMEN EXAM: Normal bowel sounds, Soft, Other (Moderate amount of ascites noted); No: Tenderness Extremity Exam: Edema; No: Clubbing, Cyanosis Skin Exam: Nl turgor and temperature; No: Rash Neuro Exam: Normal Speech, Strength at 5/5 X4 ext Psych Exam: Mental status NL, Oriented x 3 Vital Signs/I&O Vital Signs Date Time Temp Pulse Resp B/P (MAP) Pulse Ox O2 Delivery O2 Flow Rate FiO2 12/03/20 20:00 96.7 77 17 103/57 (72) 96 Room Air 12/03/20 16:00 2.0 I&O- Last 24 Hours up to 6 AM 12/03/20 06:00 Intake Total 840 ml Output Total 100 ml Balance 740 ml Laboratory Data Labs 24H Laboratory Tests 2 12/03/20 05:44: Immature Granulocyte % (Auto) 0.4, Neutrophils (%) (Auto) 73.3H, Lymphocytes (%) (Auto) 9.3L, Monocytes (%) (Auto) 10.1H, Eosinophils (%) (Auto) 6.6H, Basophils (%) (Auto) 0.3, Neutrophils # (Auto) 5.0, Lymphocytes # (Auto) 0.6L, Monocytes # (Auto) 0.7, Eosinophils # (Auto) 0.5, Basophils # (Auto) 0.0, Nucleated Red Blood Cells % (auto) 0.0, Anion Gap 11, Glomerular Filtration Rate 9.2L, Calcium Level 8.2L, Magnesium Level 2.1, Total Bilirubin 0.6, Aspartate Amino Transf (AST/SGOT) 18, Alanine Aminotransferase (ALT/SGPT) 27, Alkaline Phosphatase 158H, Total Protein 4.5L, Albumin 2.3L, Albumin/Globulin Ratio 1.0 12/03/20 05:49: Prothrombin Time 17.9H, Prothromb Time International Ratio 1.43 12/03/20 06:45: Bedside Glucose (Misc Panel) 136H 12/03/20 17:44: Bedside Glucose (Misc Panel) 184H 12/03/20 20:14: Bedside Glucose (Misc Panel) 222H CBC/BMP Laboratory Tests 12/03/20 05:44 FSBS Laboratory Tests Test 12/03/20 06:45 12/03/20 17:44 12/03/20 20:14 Range/Units Bedside Glucose (Misc Panel) 136 184 222 83-110 MG/DL Current Medications Current Medications Medications (Trade) Dose Ordered Sig/Derik Route PRN Reason Start Time Stop Time Status Last Admin Dose Admin Acetaminophen (Tylenol Tab) 650 mg Q4H PRN PO MILD PAIN or TEMP > 101 11/28/20 12:10 Apixaban (Eliquis) 2.5 mg BID PO 12/02/20 21:00 12/03/20 20:15 Ascorbic Acid (Vitamin C) 1,000 mg DAILY PO 11/28/20 09:00 12/03/20 09:32 Ceftriaxone Sodium 1 gm/ Dextrose 50 ml @ 100 mls/hr Q12H IV 11/28/20 20:00 12/02/20 10:45 DC 12/02/20 07:59 Ciprofloxacin (Cipro) 500 mg DAILY@1800 PO 12/02/20 18:00 12/03/20 18:06 Colesevelam HCl (WelChoL) 3,750 mg QHS PO 11/28/20 21:00 12/03/20 20:15 Darbepoetin Vinny (Aranesp (Dialysis Use)) 200 mcg HD IV 12/03/20 10:40 12/03/20 13:20 Dextrose (Dextrose 50%) 25 ml ASDIRECTED PRN IV SEE LABEL COMMENTS 11/28/20 12:10 Glucagon (Glucagon) 1 mg ASDIRECTED PRN SC SEE LABEL COMMENTS 11/28/20 12:10 Glucose (Glucose) 16 GM ASDIRECTED PRN PO SEE LABEL COMMENTS 11/28/20 12:10 Heparin Sodium (Heparin) Please refer to ... ASDIRECTED XX 12/03/20 09:00 12/04/20 08:59 Heparin Sodium (Heparin) dose as per volume indica... ASDIRECTED PRN IV SEE LABEL COMMENTS 12/03/20 06:00 12/03/20 21:14 DC Home Med (Home Med List Complete!) ASDIRECTED XX 11/28/20 12:20 11/28/20 12:17 DC Insulin Human Lispro (HumaLOG INSULIN) SEE PROTOCOL TABLE AC SC 11/28/20 12:00 12/03/20 18:07 Insulin Human Lispro (HumaLOG INSULIN) SEE PROTOCOL TABLE QHS SC 11/28/20 21:00 12/01/20 20:35 Levothyroxine Sodium (Synthroid) 175 mcg DAILY@06 PO 11/28/20 06:00 12/03/20 05:20 Metoprolol Tartrate (Lopressor) 12.5 mg Q6H PO 11/29/20 12:00 12/01/20 20:23 Midodrine (Proamatine) 5 mg TID@0800,1200,1600 PO 11/28/20 16:00 12/03/20 18:06 Octreotide Acetate 1200 mcg/ Sodium Chloride 240 ml @ 10 mls/hr Q24H IV 11/28/20 19:00 12/01/20 15:10 DC 11/30/20 18:54 Pantoprazole Sodium (Protonix) 40 mg BID IV 11/28/20 21:00 12/02/20 10:44 DC 12/02/20 07:58 Pantoprazole Sodium (Protonix) 40 mg DAILY PO 12/03/20 09:00 12/03/20 09:32 Pantoprazole Sodium 40 mg/ Dextrose 50 ml @ 10 mls/hr Q5H IV 11/28/20 09:55 11/28/20 12:22 DC 11/28/20 10:25 Piperacillin Sod/ Tazobactam Sod 2.25 gm/Dextrose 50 ml @ 100 mls/hr Q6H IV 11/28/20 14:00 11/28/20 17:44 DC 11/28/20 14:15 Propranolol HCl (Inderal) 10 mg TID PO 11/29/20 09:00 11/29/20 12:04 DC Propranolol HCl (Inderal) 10 mg TID PO 11/29/20 12:04 11/29/20 16:00 DC 11/29/20 16:33 Sodium Bicarbonate 150 meq/Sterile Water 1,150 ml @ 70 mls/hr [id number] IV 11/29/20 10:00 12/01/20 17:23 DC 12/01/20 11:31 Sodium Bicarbonate 75 meq/Sodium Chloride 1,075 ml @ 70 mls/hr [id number] IV 11/28/20 19:00 11/29/20 07:41 DC 11/28/20 20:31 Sodium Chloride 1,000 ml @ 100 mls/hr Q10H IV 11/28/20 09:55 11/28/20 12:22 DC 11/28/20 10:23 Spironolactone (Aldactone) 25 mg DAILY PO 11/28/20 09:00 11/28/20 17:05 DC 11/28/20 14:23 Vitamin D (Vitamin D) 2,000 units DAILY PO 11/28/20 09:00 12/03/20 09:32 Allergies Coded Allergies: bumetanide (Verified Allergy, Unknown, UNKNOWN, 09/24/20) valsartan (Verified Allergy, Unknown, UNKNOWN REACTION, 09/24/20) Quinolones (Verified Adverse Reaction, Mild, GI UPSET, 09/24/20) atorvastatin (Verified Adverse Reaction, Mild, GI UPSET, 09/24/20) ciprofloxacin (Verified Adverse Reaction, Mild, nausea and vomiting, 09/24/20) Assessment/Plan Date Seen The patient was seen on 12/03/20 in AM and during HD in afternoon. Plan / VTE VTE Prophylaxis Ordered?: Yes Plan Orders past [address] (Protonix) (12/03/20 09:00) Ciprofloxacin (Cipro) (12/02/20 18:00) Isolation: Droplet/Contact (12/02/20 10:58) Full Liquids Diet (12/02/20 Lunch) Isolation: Droplet/Contact (12/02/20 11:01) Apixaban (Eliquis) (12/02/20 21:00) Fingerstick Blood Sugar (12/02/20 12:23) Pt Eval & Tx As Needed (12/02/20 17:25) Fingerstick Blood Sugar (12/02/20 17:36) Fingerstick Blood Sugar (12/02/20 19:59) Hemodialysis Acute Orders (12/03/20 06:00) Heparin (Heparin) (12/03/20 09:00) Heparin (Heparin) (12/03/20 06:00) Cbc With Differential (12/03/20 06:45) Complete Comphrensive Metaboli (12/03/20 06:45) Magnesium Level (12/03/20 06:45) Fingerstick Blood Sugar (12/03/20 06:45) 2 Gram Sodium Diet (12/03/20 Lunch) Darbepoetin (Aranesp (Dialysis Use)) (12/03/20 10:40) Transfer (In House) (12/03/20 14:27) Dc Telemetry (12/03/20 14:27) Fingerstick Blood Sugar (12/03/20 17:44) Fingerstick Blood Sugar (12/03/20 20:14) Plan Text 1. Acute renal failure superimposed on chronic kidney disease. Patient has been oliguric. HD being done today but he is not tolerating fluid removal. He actually needed Saline. 2. 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 Patient had 10 liters of ascites drained. Diuretics on hold due to GERARDO. Fluid couldn't be removed due to hypotension. 3. Anemia: start NIKOLAY with HD. 4. Hypotension: Continue Midodrine 5 mg tid. Avoid use of BB due to hypotension and acute renal failure. 5. Afib: Avoid use of Metoprolol due to hypotension, Acute renal failure. If Rate control is desired then consider uring Dig or amiodarone. MARLENE CROCKETT MD Dec 03, 2020 22:32
[2020-12-04 04:00] VITALS: BP 100/60
[2020-12-04] MEDS: LEVOTHYROXINE 75MCG TABLET (0.075MG) PO SCH (05:11)
[2020-12-04 07:18] LABS: BASO % 0.3 % (0.0-1.0); EOS # 0.3 10^3/uL (0.0-0.5); EOS % 4.9 % (0.0-3.0); HEMATOCRIT 26.5 % (42.0-52.0); HEMOGLOBIN 7.9 g/dl (13.5-17.5); LYMPH # 0.6 10^3/uL (1.5-5.0); MEAN CORPUSCULAR HEMOGLOBIN 26.7 pg (27.0-33.0); MEAN CORPUSCULAR HGB CONC 29.8 g/dl (32.0-36.5); MEAN CORPUSCULAR VOLUME 89.5 fl (80.0-96.0); MONO # 0.6 10^3/uL (0.0-0.8); MONO % 9.7 % (2.0-8.0); NEUTROPHILS % 75.6 % (36.0-66.0); RED BLOOD COUNT 2.96 10^6/uL (4.30-6.10); WHITE BLOOD COUNT 6.6 10^3/uL (4.0-10.0)
[2020-12-04 07:29] LABS: INR 1.55
[2020-12-04 07:39] LABS: ALBUMIN 2.3 GM/DL (3.2-5.2); BILIRUBIN,TOTAL 0.7 MG/DL (0.2-1.0); CALCIUM LEVEL 7.8 MG/DL (8.8-10.2); CREATININE FOR GFR 5.4 MG/DL (0.70-1.30); GLOMERULAR FILTRATION RATE 11.1 (>42); POTASSIUM SERUM 4.4 MEQ/L (3.5-5.1); TOTAL PROTEIN 4.3 GM/DL (6.4-8.2)
[2020-12-04 07:58] LABS: PLATELET COUNT, AUTOMATED 73 10^3/uL (150-450)
[2020-12-04 08:00] VITALS: BP 105/56
[2020-12-04] MEDS: MIDODRINE 5 MG TAB PO SCH ×3 (08:14→16:28)
[2020-12-04] MEDS: PANTOPRAZOLE 40MG TAB (PROTONIX) PO SCH (08:14)
[2020-12-04] MEDS: APIXABAN 2.5 MG TAB (ELIQUIS) PO SCH ×2 (08:14→22:16)
[2020-12-04] MEDS: VITAMIN D 1,000 INTERNATIONAL UNITS TABLET PO SCH (08:14)
[2020-12-04] MEDS: ASCORBIC ACID 500 MG TAB PO SCH (08:14)
[2020-12-04] MEDS: HumaLOG INSULIN (NovoLOG) PER UNIT SC SCH ×4 (08:15→22:05)
--- NOTE | 2020-12-04 09:53 | IPNPDOC ---
Text Note Date of Service The patient was seen on 12/04/20. 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 fib (on Eliquis), CKD3, Hypothyroidism, who presented to the ER with dark stools for 3 days. Patient was found to have worsening renal function.. He was admitted to the hospital service for further evaluation and treatment. Nephrology and gastroenterology were called on consultation. Patient was seen and examined at the bedside. Patient denies any nausea, vomiting, chest pain, chest palpitations. Reports that his breathing is doing relatively well. Denies any significant cough. Patient has a Estes catheter in place. Denies any dark stools. Objective: Vitals (See below) General: Lying in bed, appears comfortable, AAOx3 HEENT: NC, AT CVS: +S1S2 Lungs: Fair air entry b/l, no evidence of wheezing, rales or rhonchi Abdomen: Soft, nondistended, nontender Extremities: Lower extremities are without any edema Imaging: CXR, portable AP view - 11/28/2020 Stable chronic changes. Cannot exclude subtle basilar atelectasis CT Abd/Pelv w/o contrast 11/28/2020 1. Cirrhotic liver with splenomegaly and portal venous hypertension. Large amount of ascites noted throughout the abdomen and pelvis 2. Subtle cystic change in the body of the pancreas is suspected. 3. Kidneys demonstrate chronic atrophy and bilateral hypodensities suggesting cysts including large left renal cysts measuring up to roughly 6 cm. 4. The enteric system is without obstruction. Colonic and sigmoid diverticulosis noted. 5. Underlying acute process involving the enteric system cannot be excluded due to extensive mesenteric infiltration and ascites related to above-mentioned cirrhosis. 6. Pelvis demonstrates normal prostate gland and bladder wall thickening along with soft tissue and small calcifications along the posterior wall the bladder which are nonspecific. 7. Extensive atherosclerotic changes to the aorta and vasculature noted without aneurysm. 8. Skeletal structures demonstrate osteopenia and degenerative changes. ECHO 11/29: 1. Severe concentric left ventricular hypertrophy. Normal regional left ventricle (LV) wall motion and wall thickness. Normal left ventricle (LV) systolic function. Left ventricle ejection fraction (LVEF) 60% by visual estimate. 2. Severe left atrial dilatation by visual estimate. 3. Suggestive of moderate elevation of estimated right ventricle systolic pr essure. Normal right ventricle size and systolic function. Normal tricuspid and pulmonic valves. Very mild tricuspid regurgitation. 4. Mild aortic valve sclerosis of a 3-cuspid aortic valve. No aortic regurgitation. 5. Mild mitral annular calcification. Very mild mitral regurgitation. 6. Left pleural effusion. 7. Presence of a right ventricle pacemaker lead coursing towards the right ventricle apex position. CXR, portable AP view 12/01/2020 Findings suggesting pulmonary vascular congestion along with lower lobe opacities/atelectasis and small right pleural effusion. Paracentesis 12/01: 26423 mL of yellow ascites was removed in total, 1300 was sent to the laboratory for further analysis, and the rest was discarded. 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 complicated with ascites - Currently patient reports that his abdomen feels fine, without any significant distention - Remains hemodynamically stable / Afebrile - No tenderness on physical exam - s/p Albumin infusion - s/p Paracentesis on 12/01 with 10L of fluid removed - cytology pending - c/w Ciprofloxacin; s/p Ceftriaxone Anemia - likely 2/2 renal disease, less likely 2/2 GI bleeding (Hx of Esophageal varices w/ banding) - Hg has remained relatively stable - No dark stools reported - Occult stool positive - s/p 1 unit PRBC - s/p Octreotide - GI on consultation; appreciate their input Thrombocytopenia - Platelet count has trended down - No evidence of bleeding - Will continue to follow trend s/p Metabolic acidosis - likely 2/2 diarrhea and GERARDO - s/p Bicarbonate drip and HD s/p Hyperkalemia - likely 2/2 GERADRO Irregularity of bladder on imaging - possibly 2/2 malignancy - Patient has cytology completed on 11/10/2020; consistent with malignancy - Patient will need to further evaluation with urology and oncology on discharge Chronic A. fib - On 11/29 morning, patient had an episode of multiple runs of V. tach; had remained asymptomatic - likely 2/2 electrolyte / acid-base imbalances - Thyroid function normal - Troponin trend stable - EKG noted / ECHO noted above - c/w Metoprolol tartrate - Eliquis has been resumed after discussion with GI Chronic hypotension - c/w Midodrine Hypothyroidism - c/w Levothyroxine IDDM2 - c/w ISS Chronic Right sided CHF / Suspected Diastolic CHF - Patient has no evidence of fluid overload - However is oliguric - Nephrology on consultation; c/w HD as per Nephro DVT Prophylaxis - c/w Full anticoagulation with Eliquis Code status: - Full Disposition: - Pending clinical improvement - PT / OT recommending home with services when cleared - PFS on board; will discuss possibility of regular HD as outpatient VS,Chelsy, I+O VS, Chelsy, I+O Laboratory Tests 12/04/20 06:29 Vital Signs Date Time Temp Pulse Resp B/P (MAP) Pulse Ox O2 Delivery O2 Flow Rate FiO2 12/04/20 08:00 98.5 68 18 105/56 (72) 97 Nasal Cannula 2.0 I&O- Last 24 Hours up to 6 AM 12/04/20 05:59 Intake Total 1140 ml Output Total 1300 ml Balance -160 ml JOE HDEZ MD Dec 04, 2020 09:53
[2020-12-04 14:15] VITALS: BP 98/54
[2020-12-04 15:29] VITALS: O2SAT 94
[2020-12-04] MEDS: CIPROFLOXACIN 500MG TABLET PO SCH (17:25)
[2020-12-04] MEDS: COLESEVELAM 625 MG TAB (WELCHOL) PO SCH (22:16)
--- NOTE | 2020-12-04 23:39 | IPNPDOC ---
Subjective CC/HPI The patient is a 75-year-old male admitted with a reason for visit of Acute On Chronic Renal Failure. Events since last encounter Pt was seen at bedside. He was dialyzed yesterday. 1L fluid was removed. He is feeling better. General: Denies: Chills, Night Sweats Constitutional: Denies: Chills, Fever Eyes: Denies: Pain, Vision change ENT: Denies: Head Aches, Ear Pain Skin: Denies: Rash, Lesions Pulmonary: Denies: Dyspnea, Cough Cardiovascular: Denies: Chest Pain, Palpitations Gastrointestinal: Denies: Nausea, Vomiting Genitourinary: Denies: Dysuria, Frequency Hematologic: Denies: Bruising, Bleeding Excessively Musculoskeletal: Denies: Neck Pain, Back Pain Neurological: Denies: Weakness, Numbness Psych: Reports: Mood Normal Objective Physical Examination General Exam: Alert, No Acute Distress EYE EXAM: PERRLA, EOMI, Sclera icteric ENT EXAM: Atraumatic, Mucous membr. moist/pink Neck Exam: Supple; No: JVD Chest Exam: Clear to auscultation, Normal air movement Heart Exam: Rate Normal, Normal S1, Normal S2; No: Murmurs, Rubs ABDOMEN EXAM: Normal bowel sounds, Soft, Other (Moderate amount of ascites noted); No: Tenderness Extremity Exam: Edema; No: Clubbing, Cyanosis Skin Exam: Nl turgor and temperature; No: Rash Neuro Exam: Normal Speech, Strength at 5/5 X4 ext Psych Exam: Mental status NL, Oriented x 3 Vital Signs/I&O Vital Signs Date Time Temp Pulse Resp B/P (MAP) Pulse Ox O2 Delivery O2 Flow Rate FiO2 12/04/20 20:00 97.8 65 18 97 Room Air 12/04/20 14:15 98/54 (69) 12/04/20 08:00 2.0 I&O- Last 24 Hours up to 6 AM 12/04/20 06:00 Intake Total 1140 ml Output Total 1300 ml Balance -160 ml Laboratory Data Labs 24H Laboratory Tests 2 12/04/20 06:14: Bedside Glucose (Misc Panel) 161H 12/04/20 06:29: Immature Granulocyte % (Auto) 0.5, Neutrophils (%) (Auto) 75.6H, Lymphocytes (%) (Auto) 9.0L, Monocytes (%) (Auto) 9.7H, Eosinophils (%) (Auto) 4.9H, Basophils (%) (Auto) 0.3, Neutrophils # (Auto) 5.0, Lymphocytes # (Auto) 0.6L, Monocytes # (Auto) 0.6, Eosinophils # (Auto) 0.3, Basophils # (Auto) 0.0, Nucleated Red Blood Cells % (auto) 0.0, Immature Platelet Fraction 8.9, Prothrombin Time 19.0H, Prothromb Time International Ratio 1.55, Anion Gap 9, Glomerular Filtration Rate 11.1L, Calcium Level 7.8L, Magnesium Level 2.0, Total Bilirubin 0.7, Aspartate Amino Transf (AST/SGOT) 23, Alanine Aminotransferase (ALT/SGPT) 27, Alkaline Phosphatase 160H, Total Protein 4.3L, Albumin 2.3L, Albumin/Globulin Ratio 1.2 12/04/20 12:25: Bedside Glucose (Misc Panel) 221H 12/04/20 16:21: Bedside Glucose (Misc Panel) 228H 12/04/20 21:05: Bedside Glucose (Misc Panel) 173H CBC/BMP Laboratory Tests 12/04/20 06:29 FSBS Laboratory Tests Test 12/04/20 06:14 12/04/20 12:25 12/04/20 16:21 12/04/20 21:05 Range/Units Bedside Glucose (Misc Panel) 161 221 228 173 83-110 MG/DL Current Medications Current Medications Medications (Trade) Dose Ordered Sig/Derik Route PRN Reason Start Time Stop Time Status Last Admin Dose Admin Acetaminophen (Tylenol Tab) 650 mg Q4H PRN PO MILD PAIN or TEMP > 101 11/28/20 12:10 Apixaban (Eliquis) 2.5 mg BID PO 12/02/20 21:00 12/04/20 22:16 Ascorbic Acid (Vitamin C) 1,000 mg DAILY PO 11/28/20 09:00 12/04/20 08:14 Ceftriaxone Sodium 1 gm/ Dextrose 50 ml @ 100 mls/hr Q12H IV 11/28/20 20:00 12/02/20 10:45 DC 12/02/20 07:59 Ciprofloxacin (Cipro) 500 mg DAILY@1800 PO 12/02/20 18:00 12/04/20 17:25 Colesevelam HCl (WelChoL) 3,750 mg QHS PO 11/28/20 21:00 12/04/20 22:16 Darbepoetin Vinny (Aranesp (Dialysis Use)) 200 mcg HD IV 12/03/20 10:40 12/03/20 13:20 Dextrose (Dextrose 50%) 25 ml ASDIRECTED PRN IV SEE LABEL COMMENTS 11/28/20 12:10 Glucagon (Glucagon) 1 mg ASDIRECTED PRN SC SEE LABEL COMMENTS 11/28/20 12:10 Glucose (Glucose) 16 GM ASDIRECTED PRN PO SEE LABEL COMMENTS 11/28/20 12:10 Heparin Sodium (Heparin) Please refer to ... ASDIRECTED XX 12/03/20 09:00 12/04/20 08:59 DC Heparin Sodium (Heparin) dose as per volume indica... ASDIRECTED PRN IV SEE LABEL COMMENTS 12/03/20 06:00 12/03/20 21:14 DC Home Med (Home Med List Complete!) ASDIRECTED XX 11/28/20 12:20 11/28/20 12:17 DC Insulin Human Lispro (HumaLOG INSULIN) SEE PROTOCOL TABLE AC SC 11/28/20 12:00 12/04/20 17:25 Insulin Human Lispro (HumaLOG INSULIN) SEE PROTOCOL TABLE QHS SC 11/28/20 21:00 12/01/20 20:35 Levothyroxine Sodium (Synthroid) 175 mcg DAILY@06 PO 11/28/20 06:00 12/04/20 05:11 Metoprolol Tartrate (Lopressor) 12.5 mg Q6H PO 11/29/20 12:00 12/03/20 22:32 DC 12/01/20 20:23 Midodrine (Proamatine) 5 mg TID@0800,1200,1600 PO 11/28/20 16:00 12/04/20 16:28 Octreotide Acetate 1200 mcg/ Sodium Chloride 240 ml @ 10 mls/hr Q24H IV 11/28/20 19:00 12/01/20 15:10 DC 11/30/20 18:54 Pantoprazole Sodium (Protonix) 40 mg BID IV 11/28/20 21:00 12/02/20 10:44 DC 12/02/20 07:58 Pantoprazole Sodium (Protonix) 40 mg DAILY PO 12/03/20 09:00 12/04/20 08:14 Pantoprazole Sodium 40 mg/ Dextrose 50 ml @ 10 mls/hr Q5H IV 11/28/20 09:55 11/28/20 12:22 TX 11/28/20 10:25 Piperacillin Sod/ Tazobactam Sod 2.25 gm/Dextrose 50 ml @ 100 mls/hr Q6H IV 11/28/20 14:00 11/28/20 17:44 DC 11/28/20 14:15 Propranolol HCl (Inderal) 10 mg TID PO 11/29/20 09:00 11/29/20 12:04 DC Propranolol HCl (Inderal) 10 mg TID PO 11/29/20 12:04 11/29/20 16:00 TX 11/29/20 16:33 Sodium Bicarbonate 150 meq/Sterile Water 1,150 ml @ 70 mls/hr [id number] IV 11/29/20 10:00 12/01/20 17:23 TX 12/01/20 11:31 Sodium Bicarbonate 75 meq/Sodium Chloride 1,075 ml @ 70 mls/hr [id number] IV 11/28/20 19:00 11/29/20 07:41 TX 11/28/20 20:31 Sodium Chloride 1,000 ml @ 100 mls/hr Q10H IV 11/28/20 09:55 11/28/20 12:22 TX 11/28/20 10:23 Spironolactone (Aldactone) 25 mg DAILY PO 11/28/20 09:00 11/28/20 17:05 TX 11/28/20 14:23 Vitamin D (Vitamin D) 2,000 units DAILY PO 11/28/20 09:00 12/04/20 08:14 Allergies Coded Allergies: bumetanide (Verified Allergy, Unknown, UNKNOWN, 09/24/20) valsartan (Verified Allergy, Unknown, UNKNOWN REACTION, 09/24/20) Quinolones (Verified Adverse Reaction, Mild, GI UPSET, 09/24/20) atorvastatin (Verified Adverse Reaction, Mild, GI UPSET, 09/24/20) ciprofloxacin (Verified Adverse Reaction, Mild, nausea and vomiting, 09/24/20) Assessment/Plan Date Seen The patient was seen on 12/04/20 in AM. Plan / VTE VTE Prophylaxis Ordered?: Yes Plan Orders past 48 Hours Orders Cbc With Differential (12/03/20 06:45) Complete Comphrensive Metaboli (12/03/20 06:45) Magnesium Level (12/03/20 06:45) Fingerstick Blood Sugar (12/03/20 06:45) 2 Gram Sodium Diet (12/03/20 Lunch) Darbepoetin (Aranesp (Dialysis Use)) (12/03/20 10:40) Transfer (In House) (12/03/20 14:27) Dc Telemetry (12/03/20 14:27) Fingerstick Blood Sugar (12/03/20 17:44) Fingerstick Blood Sugar (12/03/20 20:14) Cbc With Differential (12/04/20 06:00) Cbc With Differential (12/05/20 06:00) Cbc With Differential (12/06/20 06:00) Cbc With Differential (12/07/20 06:00) Cbc With Differential (12/08/20 06:00) Complete Comphrensive Metaboli (12/04/20 06:00) Complete Comphrensive Metaboli (12/05/20 06:00) Complete Comphrensive Metaboli (12/06/20 06:00) Complete Comphrensive Metaboli (12/07/20 06:00) Complete Comphrensive Metaboli (12/08/20 06:00) Magnesium Level (12/04/20 06:00) Magnesium Level (12/05/20 06:00) Magnesium Level (12/06/20 06:00) Magnesium Level (12/07/20 06:00) Magnesium Level (12/08/20 06:00) Fingerstick Blood Sugar (12/04/20 06:14) Immature Platelet Fraction (12/04/20 06:29) Transfuse Packed Cells (12/04/20 12:17) Packed Cells (12/04/20 12:17) Type & Screen (12/04/20 12:17) Fingerstick Blood Sugar (12/04/20 12:25) Social Service Consult (12/04/20 14:15) Antibody Identification (12/04/20 12:46) Fingerstick Blood Sugar (12/04/20 16:21) Fingerstick Blood Sugar (12/04/20 21:05) Plan Text 1. Acute renal failure superimposed on chronic kidney disease. Patient has been oliguric. HD done yesterday.Next HD will be done saturday. 2. 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 Patient had 10 liters of ascites drained. Restart diuretics now. 3. Anemia: started NIKOLAY with HD.Give 1 unit PRBC today. 4. Hypotension: Continue Midodrine 5 mg tid. Avoid use of BB due to hypotension and acute renal failure. 5. Afib: Avoid use of Metoprolol due to hypotension, Acute renal failure. If Rate control is desired then consider using Dig or amiodarone. MARLENE CROCKETT MD Dec 04, 2020 23:39
[2020-12-05] VITALS (9 sets, daily range): BP systolic 96–108; BP diastolic 48–58; O2SAT 93–97
[2020-12-05] MEDS: LEVOTHYROXINE 75MCG TABLET (0.075MG) PO SCH (05:04)
[2020-12-05 08:10] LABS: BASO % 0.3 % (0.0-1.0); EOS # 0.4 10^3/uL (0.0-0.5); EOS % 5.9 % (0.0-3.0); HEMATOCRIT 30.1 % (42.0-52.0); HEMOGLOBIN 9.1 g/dl (13.5-17.5); LYMPH # 0.7 10^3/uL (1.5-5.0); LYMPH % 9.3 % (24.0-44.0); MEAN CORPUSCULAR HEMOGLOBIN 27.7 pg (27.0-33.0); MEAN CORPUSCULAR HGB CONC 30.2 g/dl (32.0-36.5); MEAN CORPUSCULAR VOLUME 91.5 fl (80.0-96.0); MONO # 0.6 10^3/uL (0.0-0.8); MONO % 8.6 % (2.0-8.0); NEUTROPHILS # 5.3 10^3/uL (1.5-8.5); NEUTROPHILS % 75.3 % (36.0-66.0); RED BLOOD COUNT 3.29 10^6/uL (4.30-6.10); WHITE BLOOD COUNT 7.1 10^3/uL (4.0-10.0)
[2020-12-05 08:12] LABS: PLATELET COUNT, AUTOMATED 72 10^3/uL (150-450)
[2020-12-05 08:20] LABS: INR 1.58; PROTHROMBIN TIME 19.3 SECONDS (12.7-14.5)
[2020-12-05 08:42] LABS: ALBUMIN 2.2 GM/DL (3.2-5.2); BILIRUBIN,TOTAL 1.6 MG/DL (0.2-1.0); CALCIUM LEVEL 8.3 MG/DL (8.8-10.2); CREATININE FOR GFR 6.04 MG/DL (0.70-1.30); GLOMERULAR FILTRATION RATE 9.7 (>42); MAGNESIUM LEVEL 1.9 MG/DL (1.8-2.4); POTASSIUM SERUM 4.2 MEQ/L (3.5-5.1); TOTAL PROTEIN 4.3 GM/DL (6.4-8.2)
--- NOTE | 2020-12-05 08:55 | IPNPDOC ---
Text Note Date of Service The patient was seen on 12/05/20. 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 fib (on Eliquis), CKD3, Hypothyroidism, who presented to the ER with dark stools for 3 days. Patient was found to have worsening renal function.. He was admitted to the hospital service for further evaluation and treatment. Nephrology and gastroenterology were called on consultation. Patient was seen and examined at the bedside. Patient reports that he has had an uneventful evening denies any chest pain, shortness breath or palpitations. Denies any nausea, vomiting, abdominal pain, reported that he had a bowel movement this morning that was not dark. Still is reporting very little urine production. Objective: Vitals (See below) General: Patient sitting up in bed, appears to be comfortable without any acute distress, is awake, alert, oriented 3 HEENT: Atraumatic and normocephalic CVS: +S1S2 Lungs: Fair entry appears to be fair bilaterally without any evidence of crackles, wheezing, rhonchi Abdomen: Soft, obese, nondistended, nontender Extremities: No appreciated at lower extremity edema Imaging: CXR, portable AP view - 11/28/2020 Stable chronic changes. Cannot exclude subtle basilar atelectasis CT Abd/Pelv w/o contrast 11/28/2020 1. Cirrhotic liver with splenomegaly and portal venous hypertension. Large amount of ascites noted throughout the abdomen and pelvis 2. Subtle cystic change in the body of the pancreas is suspected. 3. Kidneys demonstrate chronic atrophy and bilateral hypodensities suggesting cysts including large left renal cysts measuring up to roughly 6 cm. 4. The enteric system is without obstruction. Colonic and sigmoid diverticulosis noted. 5. Underlying acute process involving the enteric system cannot be excluded due to extensive mesenteric infiltration and ascites related to above-mentioned cirrhosis. 6. Pelvis demonstrates normal prostate gland and bladder wall thickening along with soft tissue and small calcifications along the posterior wall the bladder which are nonspecific. 7. Extensive atherosclerotic changes to the aorta and vasculature noted without aneurysm. 8. Skeletal structures demonstrate osteopenia and degenerative changes. ECHO 11/29: 1. Severe concentric left ventricular hypertrophy. Normal regional left ventricle (LV) wall motion and wall thickness. Normal left ventricle (LV) systolic function. Left ventricle ejection fraction (LVEF) 60% by visual estimate. 2. Severe left atrial dilatation by visual estimate. 3. Suggestive of moderate elevation of estimated right ventricle systolic pressure. Normal right ventricle size and systolic function. Normal tricuspid and pulmonic valves. Very mild tricuspid regurgitation. 4. Mild aortic valve sclerosis of a 3-cuspid aortic valve. No aortic regurgi tation. 5. Mild mitral annular calcification. Very mild mitral regurgitation. 6. Left pleural effusion. 7. Presence of a right ventricle pacemaker lead coursing towards the right ventricle apex position. CXR, portable AP view 12/01/2020 Findings suggesting pulmonary vascular congestion along with lower lobe opacities/atelectasis and small right pleural effusion. Paracentesis 12/01: 17471 mL of yellow ascites was removed in total, 1300 was sent to the laboratory for further analysis, and the rest was discarded. Assessment and plan: GERARDO on CKD3 with oliguria - possible component of hepatorenal syndrome - Renal function does not appear to be improving significantly without dialysis - PermCath placement by IR 11/30 - Started HD on 11/30 but wasn't able to tolerate 2/2 Hypotension; First successful HD on 12/01 - Will need HD regularly moving forward; PFS on board - Nephrology on consultation; appreciate their input Cirrhosis 2/2 GALAVIZ complicated with ascites - Patient reports that his abdomen feels fine - Physicals without any tenderness - Afebrile / Hemodynamically stable - s/p Albumin infusion - s/p Paracentesis on 12/01 with 10L of fluid removed - cytology pending - c/w Ciprofloxacin; s/p Ceftriaxone Anemia - likely 2/2 renal disease, less likely 2/2 GI bleeding (Hx of Esophageal varices w/ banding) - No additional dark stools noted - Occult stool positive - s/p 2 units PRBC - s/p Octreotide - GI on consultation; appreciate their input Thrombocytopenia - Platelet count had trended down; but remains stable currently - No evidence of bleeding - Will follow trend s/p Metabolic acidosis - likely 2/2 diarrhea and GERARDO - s/p Bicarbonate drip and HD s/p Hyperkalemia - likely 2/2 GERARDO Irregularity of bladder on imaging - possibly 2/2 malignancy - Patient has cytology completed on 11/10/2020; consistent with malignancy - Patient will need to further evaluation with urology and oncology on discharge Chronic A. fib - On 11/29 morning, patient had an episode of multiple runs of V. tach; had remained asymptomatic - likely 2/2 electrolyte / acid-base imbalances - Thyroid function normal - Troponin trend stable - EKG noted / ECHO noted above - c/w Metoprolol tartrate - Full anticoagulation with Eliquis has been resumed after discussion with GI Chronic hypotension - c/w Midodrine Hypothyroidism - c/w Levothyroxine IDDM2 - c/w ISS Chronic Right sided CHF / Suspected Diastolic CHF - Patient has no evidence of fluid overload - Remains oliguric - Nephrology on consultation; c/w HD as per Nephro DVT Prophylaxis - c/w Full anticoagulation with Eliquis Code status: - Full Disposition: - Pending clinical improvement - PT / OT recommending home with services when cleared - PFS on board for HD as outpatient VS,Fishbone, I+O VS, Fishbone, I+O Laboratory Tests 12/05/20 06:58 Vital Signs Date Time Temp Pulse Resp B/P (MAP) Pulse Ox O2 Delivery O2 Flow Rate FiO2 12/05/20 05:00 98.3 59 17 96/50 97 Nasal Cannula 2.0 I&O- Last 24 Hours up to 6 AM 12/05/20 06:00 Intake Total 1600 ml Balance 1600 ml JOE HDEZ MD Dec 05, 2020 08:55
[2020-12-05] MEDS: TORSEMIDE (DEMADEX) 50 MG PER 1/2 TAB PO SCH ×2 (08:59→16:18)
[2020-12-05] MEDS: HumaLOG INSULIN (NovoLOG) PER UNIT SC SCH ×4 (08:59→20:26)
[2020-12-05] MEDS: MIDODRINE 5 MG TAB PO SCH ×3 (09:00→16:18)
[2020-12-05] MEDS: ASCORBIC ACID 500 MG TAB PO SCH (09:00)
[2020-12-05] MEDS: APIXABAN 2.5 MG TAB (ELIQUIS) PO SCH ×2 (09:00→20:22)
[2020-12-05] MEDS: VITAMIN D 1,000 INTERNATIONAL UNITS TABLET PO SCH (09:00)
[2020-12-05] MEDS: PANTOPRAZOLE 40MG TAB (PROTONIX) PO SCH (09:00)
[2020-12-05] MEDS: CIPROFLOXACIN 500MG TABLET PO SCH (18:25)
[2020-12-05] MEDS: COLESEVELAM 625 MG TAB (WELCHOL) PO SCH (20:22)
--- NOTE | 2020-12-05 21:12 | IPNPDOC ---
Subjective CC/HPI The patient is a 75-year-old male admitted with a reason for visit of Acute On Chronic Renal Failure. Events since last encounter Pt was seen in AM. He was dialyzed over the weekend and tolerated well. He reports persistent ascites and Lt arm edema. No significant renal improvement. Diuretics were started again. General: Reports: Fatigue; Denies: Chills, Night Sweats Constitutional: Denies: Chills, Fever, Malaise Eyes: Denies: Pain, Vision change ENT: Denies: Head Aches, Ear Pain Skin: Denies: Rash, Lesions Pulmonary: Reports: Dyspnea; Denies: Cough Cardiovascular: Denies: Chest Pain, Palpitations Gastrointestinal: Reports: Other Symptoms (Ascites); Denies: Nausea, Vomiting Genitourinary: Denies: Dysuria Hematologic: Denies: Bruising Musculoskeletal: Denies: Neck Pain, Back Pain Neurological: Denies: Weakness Psych: Reports: Mood Normal Objective Physical Examination General Exam: Alert, No Acute Distress EYE EXAM: PERRLA, EOMI, Sclera icteric ENT EXAM: Atraumatic, Mucous membr. moist/pink Neck Exam: Supple; No: JVD Chest Exam: Clear to auscultation, Normal air movement Heart Exam: Rate Normal, Normal S1, Normal S2; No: Murmurs, Rubs ABDOMEN EXAM: Normal bowel sounds, Soft, Other (Moderate amount of ascites noted); No: Tenderness Extremity Exam: Edema; No: Clubbing, Cyanosis Skin Exam: Nl turgor and temperature; No: Rash Neuro Exam: Normal Speech, Strength at 5/5 X4 ext Psych Exam: Mental status NL, Oriented x 3 Vital Signs/I&O Vital Signs Date Time Temp Pulse Resp B/P (MAP) Pulse Ox O2 Delivery O2 Flow Rate FiO2 12/05/20 20:25 97.7 77 20 96/58 (71) 93 Room Air 12/05/20 14:00 2.0 I&O- Last 24 Hours up to 6 AM 12/05/20 06:00 Intake Total 1600 ml Balance 1600 ml Laboratory Data Labs 24H Laboratory Tests 2 12/04/20 21:05: Bedside Glucose (Misc Panel) 173H 12/05/20 06:58: Immature Granulocyte % (Auto) 0.6, Neutrophils (%) (Auto) 75.3H, Lymphocytes (%) (Auto) 9.3L, Monocytes (%) (Auto) 8.6H, Eosinophils (%) (Auto) 5.9H, Basophils (%) (Auto) 0.3, Neutrophils # (Auto) 5.3, Lymphocytes # (Auto) 0.7L, Monocytes # (Auto) 0.6, Eosinophils # (Auto) 0.4, Basophils # (Auto) 0.0, Nucleated Red Blood Cells % (auto) 0.0, Immature Platelet Fraction 12.2H, Prothrombin Time 19.3H, Prothromb Time International Ratio 1.58, Anion Gap 11, Glomerular Filtration Rate 9.7L, Calcium Level 8.3L, Magnesium Level 1.9, Total Bilirubin 1.6#H, Aspartate Amino Transf (AST/SGOT) 19, Alanine Aminotransferase (ALT/SGPT) 28, Alkaline Phosphatase 157H, Total Protein 4.3L, Albumin 2.2L, Albumin/Globulin Ratio 1.0 12/05/20 11:56: Bedside Glucose (Misc Panel) 194H 12/05/20 16:45: Bedside Glucose (Misc Panel) 225H 12/05/20 20:26: Bedside Glucose (Misc Panel) 171H CBC/BMP Laboratory Tests 12/05/20 06:58 FSBS Laboratory Tests Test 12/04/20 21:05 12/05/20 11:56 12/05/20 16:45 12/05/20 20:26 Range/Units Bedside Glucose (Misc Panel) 173 194 225 171 83-110 MG/DL Current Medications Current Medications Medications (Trade) Dose Ordered Sig/Derik Route PRN Reason Start Time Stop Time Status Last Admin Dose Admin Acetaminophen (Tylenol Tab) 650 mg Q4H PRN PO MILD PAIN or TEMP > 101 11/28/20 12:10 Apixaban (Eliquis) 2.5 mg BID PO 12/02/20 21:00 12/05/20 20:22 Ascorbic Acid (Vitamin C) 1,000 mg DAILY PO 11/28/20 09:00 12/05/20 09:00 Ceftriaxone Sodium 1 gm/ Dextrose 50 ml @ 100 mls/hr Q12H IV 11/28/20 20:00 12/02/20 10:45 DC 12/02/20 07:59 Ciprofloxacin (Cipro) 500 mg DAILY@1800 PO 12/02/20 18:00 12/05/20 18:25 Colesevelam HCl (WelChoL) 3,750 mg QHS PO 11/28/20 21:00 12/05/20 20:22 Darbepoetin Vinny (Aranesp (Dialysis Use)) 200 mcg HD IV 12/03/20 10:40 12/03/20 13:20 Dextrose (Dextrose 50%) 25 ml ASDIRECTED PRN IV SEE LABEL COMMENTS 11/28/20 12:10 Glucagon (Glucagon) 1 mg ASDIRECTED PRN SC SEE LABEL COMMENTS 11/28/20 12:10 Glucose (Glucose) 16 GM ASDIRECTED PRN PO SEE LABEL COMMENTS 11/28/20 12:10 Heparin Sodium (Heparin) Please refer to ... ASDIRECTED XX 12/03/20 09:00 12/04/20 08:59 DC Heparin Sodium (Heparin) dose as per volume indica... ASDIRECTED PRN IV SEE LABEL COMMENTS 12/03/20 06:00 12/03/20 21:14 DC Home Med (Home Med List Complete!) ASDIRECTED XX 11/28/20 12:20 11/28/20 12:17 DC Insulin Human Lispro (HumaLOG INSULIN) SEE PROTOCOL TABLE AC SC 11/28/20 12:00 12/05/20 18:25 Insulin Human Lispro (HumaLOG INSULIN) SEE PROTOCOL TABLE QHS SC 11/28/20 21:00 12/01/20 20:35 Levothyroxine Sodium (Synthroid) 175 mcg DAILY@06 PO 11/28/20 06:00 12/05/20 05:04 Metoprolol Tartrate (Lopressor) 12.5 mg Q6H PO 11/29/20 12:00 12/03/20 22:32 DC 12/01/20 20:23 Midodrine (Proamatine) 5 mg TID@0800,1200,1600 PO 11/28/20 16:00 12/05/20 16:18 Octreotide Acetate 1200 mcg/ Sodium Chloride 240 ml @ 10 mls/hr Q24H IV 11/28/20 19:00 12/01/20 15:10 DC 11/30/20 18:54 Pantoprazole Sodium (Protonix) 40 mg BID IV 11/28/20 21:00 12/02/20 10:44 DC 12/02/20 07:58 Pantoprazole Sodium (Protonix) 40 mg DAILY PO 12/03/20 09:00 12/05/20 09:00 Pantoprazole Sodium 40 mg/ Dextrose 50 ml @ 10 mls/hr Q5H IV 11/28/20 09:55 11/28/20 12:22 [place] 11/28/20 10:25 Piperacillin Sod/ Tazobactam Sod 2.25 gm/Dextrose 50 ml @ 100 mls/hr Q6H IV 11/28/20 14:00 11/28/20 17:44 [place] 11/28/20 14:15 Propranolol HCl (Inderal) 10 mg TID PO 11/29/20 09:00 11/29/20 12:04 DC Propranolol HCl (Inderal) 10 mg TID PO 11/29/20 12:04 11/29/20 16:00 [place] 11/29/20 16:33 Sodium Bicarbonate 150 meq/Sterile Water 1,150 ml @ 70 mls/hr [id number] IV 11/29/20 10:00 12/01/20 17:23 [place] 12/01/20 11:31 Sodium Bicarbonate 75 meq/Sodium Chloride 1,075 ml @ 70 mls/hr [id number] IV 11/28/20 19:00 11/29/20 07:41 [place] 11/28/20 20:31 Sodium Chloride 1,000 ml @ 100 mls/hr Q10H IV 11/28/20 09:55 11/28/20 12:22 [place] 11/28/20 10:23 Spironolactone (Aldactone) 25 mg DAILY PO 11/28/20 09:00 11/28/20 17:05 [place] 11/28/20 14:23 Torsemide (Demadex) 50 mg BID@09,17 PO 12/05/20 09:00 12/05/20 16:18 Vitamin D (Vitamin D) 2,000 units DAILY PO 11/28/20 09:00 12/05/20 09:00 Allergies Coded Allergies: bumetanide (Verified Allergy, Unknown, UNKNOWN, 09/24/20) valsartan (Verified Allergy, Unknown, UNKNOWN REACTION, 09/24/20) Quinolones (Verified Adverse Reaction, Mild, GI UPSET, 09/24/20) atorvastatin (Verified Adverse Reaction, Mild, GI UPSET, 09/24/20) ciprofloxacin (Verified Adverse Reaction, Mild, nausea and vomiting, 09/24/20) Assessment/Plan Date Seen The patient was seen on 12/05/20 in AM. Plan / VTE VTE Prophylaxis Ordered?: Yes Plan Orders past 48 Hours Orders Cbc With Differential (12/04/20 06:00) Cbc With Differential (12/05/20 06:00) Cbc With Differential (12/06/20 06:00) Cbc With Differential (12/07/20 06:00) Cbc With Differential (12/08/20 06:00) Complete Comphrensive Metaboli (12/04/20 06:00) Complete Comphrensive Metaboli (12/05/20 06:00) Complete Comphrensive Metaboli (12/06/20 06:00) Complete Comphrensive Metaboli (12/07/20 06:00) Complete Comphrensive Metaboli (12/08/20 06:00) Magnesium Level (12/04/20 06:00) Magnesium Level (12/05/20 06:00) Magnesium Level (12/06/20 06:00) Magnesium Level (12/07/20 06:00) Magnesium Level (12/08/20 06:00) Fingerstick Blood Sugar (12/04/20 06:14) Immature Platelet Fraction (12/04/20 06:29) Transfuse Packed Cells (12/04/20 12:17) Packed Cells (12/04/20 12:17) Type & Screen (12/04/20 12:17) Fingerstick Blood Sugar (12/04/20 12:25) Social Service Consult (12/04/20 14:15) Antibody Identification (12/04/20 12:46) Fingerstick Blood Sugar (12/04/20 16:21) Fingerstick Blood Sugar (12/04/20 21:05) Oxygen Therapy Orders (12/04/20 23:37) Torsemide (Demadex) (12/05/20 09:00) Immature Platelet Fraction (12/05/20 06:58) Fingerstick Blood Sugar (12/05/20 11:56) Fingerstick Blood Sugar (12/05/20 16:45) Fingerstick Blood Sugar (12/05/20 20:26) Plan Text 1. Acute renal failure superimposed on chronic kidney disease. Patient has been oliguric. HD will be done tomorrow. 2. 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 Patient had 10 liters of ascites drained. Continue loop diuretic now. 3. Anemia: started NIKOLAY with HD. 4. Hypotension: Continue Midodrine 5 mg tid. Avoid use of BB due to hypotension and acute renal failure. 5. Afib: Avoid use of Metoprolol due to hypotension, Acute renal failure. MARLENE CROCKETT MD Dec 05, 2020 21:12
[2020-12-06 06:01] VITALS: BP_SYST 84; BP_SYST 86; BP_DIAS 48; BP_DIAS 52
[2020-12-06] MEDS: TORSEMIDE (DEMADEX) 50 MG PER 1/2 TAB PO SCH ×2 (06:16→16:52)
[2020-12-06] MEDS: PANTOPRAZOLE 40MG TAB (PROTONIX) PO SCH (06:25)
[2020-12-06] MEDS: LEVOTHYROXINE 75MCG TABLET (0.075MG) PO SCH (06:25)
[2020-12-06] MEDS: MIDODRINE 5 MG TAB PO SCH ×3 (06:25→17:05)
[2020-12-06] MEDS: ASCORBIC ACID 500 MG TAB PO SCH (06:25)
[2020-12-06] MEDS: VITAMIN D 1,000 INTERNATIONAL UNITS TABLET PO SCH (06:25)
[2020-12-06] MEDS: APIXABAN 2.5 MG TAB (ELIQUIS) PO SCH ×2 (06:25→20:38)
[2020-12-06 07:05] VITALS: BP 86/48
[2020-12-06] MEDS: HumaLOG INSULIN (NovoLOG) PER UNIT SC SCH ×4 (07:30→20:42)
[2020-12-06 07:58] VITALS: BP 92/52
[2020-12-06 08:54] LABS: BASO % 0.2 % (0.0-1.0); EOS # 0.5 10^3/uL (0.0-0.5); EOS % 5.2 % (0.0-3.0); HEMATOCRIT 30.9 % (42.0-52.0); HEMOGLOBIN 9.2 g/dl (13.5-17.5); LYMPH # 0.7 10^3/uL (1.5-5.0); LYMPH % 7.6 % (24.0-44.0); MEAN CORPUSCULAR HEMOGLOBIN 27.1 pg (27.0-33.0); MEAN CORPUSCULAR HGB CONC 29.8 g/dl (32.0-36.5); MEAN CORPUSCULAR VOLUME 91.2 fl (80.0-96.0); MONO # 0.7 10^3/uL (0.0-0.8); NEUTROPHILS # 6.9 10^3/uL (1.5-8.5); NEUTROPHILS % 78.5 % (36.0-66.0); RED BLOOD COUNT 3.39 10^6/uL (4.30-6.10); WHITE BLOOD COUNT 8.8 10^3/uL (4.0-10.0)
[2020-12-06 08:56] LABS: PLATELET COUNT, AUTOMATED 81 10^3/uL (150-450)
[2020-12-06 09:30] LABS: ALBUMIN 2.3 GM/DL (3.2-5.2); BILIRUBIN,TOTAL 1.3 MG/DL (0.2-1.0); CALCIUM LEVEL 8.5 MG/DL (8.8-10.2); CREATININE FOR GFR 6.92 MG/DL (0.70-1.30); GLOMERULAR FILTRATION RATE 8.3 (>42); POTASSIUM SERUM 4.3 MEQ/L (3.5-5.1); TOTAL PROTEIN 4.5 GM/DL (6.4-8.2)
--- NOTE | 2020-12-06 12:40 | IPNPDOC ---
Subjective CC/HPI The patient is a 75-year-old male admitted with a reason for visit of Acute On Chronic Renal Failure. Events since last encounter Pt was seen and examined during HD. BP is soft and low but he is tolerating fluid removal. Laying in Lt lateral position helps improve BP. General: Denies: Chills, Night Sweats Constitutional: Reports: Malaise; Denies: Chills, Fever Eyes: Denies: Pain, Vision change ENT: Denies: Head Aches, Ear Pain Skin: Denies: Rash, Lesions Pulmonary: Denies: Dyspnea, Cough Cardiovascular: Denies: Chest Pain, Palpitations Gastrointestinal: Reports: Nausea, Other Symptoms (Ascites); Denies: Vomiting Genitourinary: Denies: Dysuria, Frequency Hematologic: Denies: Bruising, Bleeding Excessively Musculoskeletal: Denies: Neck Pain, Back Pain Neurological: Reports: Weakness; Denies: Numbness Psych: Reports: Mood Normal Objective Physical Examination General Exam: Alert, No Acute Distress, Other (Getting HD) EYE EXAM: PERRLA, EOMI, Sclera icteric ENT EXAM: Atraumatic, Mucous membr. moist/pink Neck Exam: Supple; No: JVD Chest Exam: Clear to auscultation, Normal air movement Heart Exam: Rate Normal, Normal S1, Normal S2; No: Murmurs, Rubs ABDOMEN EXAM: Normal bowel sounds, Soft, Other (Moderate amount of ascites noted); No: Tenderness Extremity Exam: Edema; No: Clubbing, Cyanosis Skin Exam: Nl turgor and temperature; No: Rash Neuro Exam: Normal Speech, Strength at 5/5 X4 ext Psych Exam: Mental status NL, Oriented x 3 Vital Signs/I&O Vital Signs Date Time Temp Pulse Resp B/P (MAP) Pulse Ox O2 Delivery O2 Flow Rate FiO2 12/06/20 07:58 92/52 (65) 12/06/20 07:05 86 19 91 Room Air 12/06/20 06:01 2.0 12/05/20 20:25 97.7 I&O- Last 24 Hours up to 6 AM 12/06/20 05:59 Intake Total 1690 ml Balance 1690 ml Laboratory Data Labs 24H Laboratory Tests 2 12/05/20 16:45: Bedside Glucose (Misc Panel) 225H 12/05/20 20:26: Bedside Glucose (Misc Panel) 171H 12/06/20 07:51: Bedside Glucose (Misc Panel) 136H 12/06/20 08:33: Immature Granulocyte % (Auto) 0.5, Neutrophils (%) (Auto) 78.5H, Lymphocytes (%) (Auto) 7.6L, Monocytes (%) (Auto) 8.0, Eosinophils (%) (Auto) 5.2H, Basophils (%) (Auto) 0.2, Neutrophils # (Auto) 6.9, Lymphocytes # (Auto) 0.7L, Monocytes # (Auto) 0.7, Eosinophils # (Auto) 0.5, Basophils # (Auto) 0.0, Nucleated Red Blood Cells % (auto) 0.0, Immature Platelet Fraction 12.3H, Anion Gap 13, Glomerular Filtration Rate 8.3L, Calcium Level 8.5L, Magnesium Level 2.0, Total Bilirubin 1.3H, Aspartate Amino Transf (AST/SGOT) 19, Alanine Aminotransferase (ALT/SGPT) 27, Alkaline Phosphatase 176H, Total Protein 4.5L, Albumin 2.3L, Albumin/Globulin Ratio 1.0 CBC/BMP Laboratory Tests 12/06/20 08:33 FSBS Laboratory Tests Test 12/05/20 16:45 12/05/20 20:26 12/06/20 07:51 Range/Units Bedside Glucose (Misc Panel) 225 171 136 83-110 MG/DL Current Medications Current Medications Medications (Trade) Dose Ordered Sig/Dreik Route PRN Reason Start Time Stop Time Status Last Admin Dose Admin Acetaminophen (Tylenol Tab) 650 mg Q4H PRN PO MILD PAIN or TEMP > 101 11/28/20 12:10 Apixaban (Eliquis) 2.5 mg BID PO 12/02/20 21:00 12/06/20 06:25 Ascorbic Acid (Vitamin C) 1,000 mg DAILY PO 11/28/20 09:00 12/06/20 06:25 Ceftriaxone Sodium 1 gm/ Dextrose 50 ml @ 100 mls/hr Q12H IV 11/28/20 20:00 12/02/20 10:45 DC 12/02/20 07:59 Ciprofloxacin (Cipro) 500 mg DAILY@1800 PO 12/02/20 18:00 12/05/20 18:25 Colesevelam HCl (WelChoL) 3,750 mg QHS PO 11/28/20 21:00 10/11/21 20:22 Darbepoetin Vinny (Aranesp (Dialysis Use)) 200 mcg HD IV 12/03/20 10:40 12/03/20 13:20 Dextrose (Dextrose 50%) 25 ml ASDIRECTED PRN IV SEE LABEL COMMENTS 11/28/20 12:10 Glucagon (Glucagon) 1 mg ASDIRECTED PRN SC SEE LABEL COMMENTS 11/28/20 12:10 Glucose (Glucose) 16 GM ASDIRECTED PRN PO SEE LABEL COMMENTS 11/28/20 12:10 Heparin Sodium (Heparin) Please refer to ... ASDIRECTED XX 12/06/20 06:00 12/07/20 05:59 Heparin Sodium (Heparin) Please refer to ... ASDIRECTED XX 12/03/20 09:00 12/04/20 08:59 DC Heparin Sodium (Heparin) dose as per volume indica... ASDIRECTED PRN IV SEE LABEL COMMENTS 12/06/20 06:00 12/06/20 22:54 Heparin Sodium (Heparin) dose as per volume indica... ASDIRECTED PRN IV SEE LABEL COMMENTS 12/03/20 06:00 12/03/20 21:14 DC Home Med (Home Med List Complete!) ASDIRECTED XX 11/28/20 12:20 11/28/20 12:17 DC Insulin Human Lispro (HumaLOG INSULIN) SEE PROTOCOL TABLE AC SC 11/28/20 12:00 12/05/20 18:25 Insulin Human Lispro (HumaLOG INSULIN) SEE PROTOCOL TABLE QHS SC 11/28/20 21:00 12/01/20 20:35 Levothyroxine Sodium (Synthroid) 175 mcg DAILY@06 PO 11/28/20 06:00 12/06/20 06:25 Metoprolol Tartrate (Lopressor) 12.5 mg Q6H PO 11/29/20 12:00 12/03/20 22:32 DC 12/01/20 20:23 Midodrine (Proamatine) 5 mg TID@0800,1200,1600 PO 11/28/20 16:00 12/06/20 06:25 Octreotide Acetate 1200 mcg/ Sodium Chloride 240 ml @ 10 mls/hr Q24H IV 11/28/20 19:00 12/01/20 15:10 DC 11/30/20 18:54 Pantoprazole Sodium (Protonix) 40 mg BID IV 11/28/20 21:00 12/02/20 10:44 DC 12/02/20 07:58 Pantoprazole Sodium (Protonix) 40 mg DAILY PO 12/03/20 09:00 12/06/20 06:25 Pantoprazole Sodium 40 mg/ Dextrose 50 ml @ 10 mls/hr Q5H IV 11/28/20 09:55 11/28/20 12:22 DC 11/28/20 10:25 Piperacillin Sod/ Tazobactam Sod 2.25 gm/Dextrose 50 ml @ 100 mls/hr Q6H IV 11/28/20 14:00 11/28/20 17:44 DC 11/28/20 14:15 Propranolol HCl (Inderal) 10 mg TID PO 11/29/20 09:00 11/29/20 12:04 DC Propranolol HCl (Inderal) 10 mg TID PO 11/29/20 12:04 11/29/20 16:00 [place] 11/29/20 16:33 Sodium Bicarbonate 150 meq/Sterile Water 1,150 ml @ 70 mls/hr [id number] IV 11/29/20 10:00 12/01/20 17:23 DC 12/01/20 11:31 Sodium Bicarbonate 75 meq/Sodium Chloride 1,075 ml @ 70 mls/hr [id number] IV 11/28/20 19:00 11/29/20 07:41 [place] 11/28/20 20:31 Sodium Chloride 1,000 ml @ 100 mls/hr Q10H IV 11/28/20 09:55 11/28/20 12:22 [place] 11/28/20 10:23 Spironolactone (Aldactone) 25 mg DAILY PO 11/28/20 09:00 11/28/20 17:05 [place] 11/28/20 14:23 Torsemide (Demadex) 50 mg BID@09,17 PO 12/05/20 09:00 12/05/20 16:18 Vitamin D (Vitamin D) 2,000 units DAILY PO 11/28/20 09:00 12/06/20 06:25 Allergies Coded Allergies: bumetanide (Verified Allergy, Unknown, UNKNOWN, 09/24/20) valsartan (Verified Allergy, Unknown, UNKNOWN REACTION, 09/24/20) Quinolones (Verified Adverse Reaction, Mild, GI UPSET, 09/24/20) atorvastatin (Verified Adverse Reaction, Mild, GI UPSET, 09/24/20) ciprofloxacin (Verified Adverse Reaction, Mild, nausea and vomiting, 09/24/20) Assessment/Plan Date Seen The patient was seen on 12/06/20 in AM during dialysis. Plan / VTE VTE Prophylaxis Ordered?: Yes Plan Orders past 48 Hours Orders Social Service Consult (12/04/20 14:15) Fingerstick Blood Sugar (12/04/20 16:21) Fingerstick Blood Sugar (12/04/20 21:05) Oxygen Therapy Orders (12/04/20 23:37) Torsemide (Demadex) (12/05/20 09:00) Immature Platelet Fraction (12/05/20 06:58) Fingerstick Blood Sugar (12/05/20 11:56) Fingerstick Blood Sugar (12/05/20 16:45) Fingerstick Blood Sugar (12/05/20 20:26) Hemodialysis Acute Orders (12/06/20 06:00) Heparin (Heparin) (12/06/20 06:00) Heparin (Heparin) (12/06/20 06:00) Early Tray (12/06/20 06:00) * Nursing Order * (12/06/20 06:18) Fingerstick Blood Sugar (12/06/20 07:51) Immature Platelet Fraction (12/06/20 08:33) Physician's Order (12/06/20 11:51) Plan Text 1. Acute renal failure superimposed on chronic kidney disease.HD dependent. Tolerating HD today. UF goal~2Kg. 2. 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 Patient had 10 liters of ascites drained. Continue loop diuretic now. Further fluid optimization with HD. 3. Anemia: started NIKOLAY with HD. 4. Hypotension: Continue Midodrine 5 mg tid. Avoid use of BB due to hypotension and acute renal failure. 5. Afib: Avoid use of Metoprolol due to hypotension,. OK to use dig or amiodarone if needed. MARLENE CROCKETT MD Dec 06, 2020 12:40
[2020-12-06 14:00] VITALS: BP 62/29
[2020-12-06 14:30] VITALS: BP 82/58
--- NOTE | 2020-12-06 16:40 | IPNPDOC ---
Date Seen The patient was seen on 12/06/20. Progress Note SUBJECTIVE: seen and examined bedside. Patient received HD this morning. Informed by RN, hypotensive SBP 68 mmHg. Patient is asymptomatic, denies dizziness, lightheadeness, palpitations, CP. OBJECTIVE PHYSICAL EXAMINATION: VITAL SIGNS: please see below General: NAD, comfortable HEENT: PERRLA, EOMI, sclerae clear Neck: supple, normal ROM, no JVD Respiratory: lungs CTAB, no wheeze, no rales, no crackles CVS: RRR, normal S1, S2, no murmurs Abdo: soft, distended, ascites, non tender to palpation Extremities: no edema, pulses 2+ MSK: no joint deformities, normal ROM Neuro: no focal neuro deficits, moving all 4 extremities, CN2-12 intact. Strength 5/5 in all 4 extremities. No nystagmus. Psych: calm, cooperative, AAO x 3 LABORATORY DATA, IMAGING STUDIES, MICROBIOLOGY: Please see below. CXR, portable AP view - 11/28/2020 Stable chronic changes. Cannot exclude subtle basilar atelectasis CT Abd/Pelv w/o contrast 11/28/2020 1. Cirrhotic liver with splenomegaly and portal venous hypertension. Large amount of ascites noted throughout the abdomen and pelvis 2. Subtle cystic change in the body of the pancreas is suspected. 3. Kidneys demonstrate chronic atrophy and bilateral hypodensities suggesting cysts including large left renal cysts measuring up to roughly 6 cm. 4. The enteric system is without obstruction. Colonic and sigmoid diverticulosis noted. 5. Underlying acute process involving the enteric system cannot be excluded due to extensive mesenteric infiltration and ascites related to above-mentioned cirrhosis. 6. Pelvis demonstrates normal prostate gland and bladder wall thickening along with soft tissue and small calcifications along the posterior wall the bladder which are nonspecific. 7. Extensive atherosclerotic changes to the aorta and vasculature noted without aneurysm. 8. Skeletal structures demonstrate osteopenia and degenerative changes. ECHO 11/29: 1. Severe concentric left ventricular hypertrophy. Normal regional left ventricle (LV) wall motion and wall thickness. Normal left ventricle (LV) systolic function. Left ventricle ejection fraction (LVEF) 60% by visual estima te. 2. Severe left atrial dilatation by visual estimate. 3. Suggestive of moderate elevation of estimated right ventricle systolic pressure. Normal right ventricle size and systolic function. Normal tricuspid and pulmonic valves. Very mild tricuspid regurgitation. 4. Mild aortic valve sclerosis of a 3-cuspid aortic valve. No aortic regurgitation. 5. Mild mitral annular calcification. Very mild mitral regurgitation. 6. Left pleural effusion. 7. Presence of a right ventricle pacemaker lead coursing towards the right ventricle apex position. CXR, portable AP view 12/01/2020 Findings suggesting pulmonary vascular congestion along with lower lobe opacities/atelectasis and small right pleural effusion. Paracentesis 12/01: 12739 mL of yellow ascites was removed in total, 1300 was sent to the laboratory for further analysis, and the rest was discarded. 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 Presented with 3 days of dark stools. PROBLEMS: GERARDO on CKD3 with oliguria - possible component of hepatorenal syndrome - Renal function does not appear to be improving significantly without dialysis - PermCath placement by IR 11/30 - Started HD on 11/30 but wasn't able to tolerate 2/2 Hypotension; First successful HD on 12/01 - Will need HD regularly moving forward; PFS on board - Nephrology on consultation; appreciate their input Cirrhosis 2/2 GALAVIZ complicated with ascites - Patient reports that his abdomen feels fine - Physicals without any tenderness - Afebrile / Hemodynamically stable - s/p Albumin infusion - s/p Paracentesis on 12/01 with 10L of fluid removed - cytology negative for malignancy, microbiology pending. - c/w Ciprofloxacin (Day #4); s/p Ceftriaxone (5 days). Chronic hypotension - increase midodrine to 10 mg TID Anemia - likely 2/2 renal disease, less likely 2/2 GI bleeding (Hx of Esophageal varices w/ banding) - No additional dark stools noted - Occult stool positive - s/p 2 units PRBC - s/p Octreotide - GI consulted. D/w Dr. Prince. Believes risk of EGD outweighs benefits. Thrombocytopenia - Platelet count had trended down; but remains stable currently - No evidence of bleeding - Will follow trend s/p Metabolic acidosis - likely 2/2 diarrhea and GERARDO - s/p Bicarbonate drip and HD s/p Hyperkalemia - likely 2/2 GERARDO Irregularity of bladder on imaging - possibly 2/2 malignancy - Patient has cytology completed on 11/10/2020; consistent with malignancy - Patient will need to further evaluation with urology and oncology on discharge Chronic A. fib - On 11/29 morning, patient had an episode of multiple runs of V. tach; had remai maria elena asymptomatic - likely 2/2 electrolyte / acid-base imbalances - Thyroid function normal - Troponin trend stable - EKG and echo reviewed. - metoprolol tartrate has been DC due to hypotension. - Full AC with Eliquis resumed, after GI permission. Hypothyroidism - c/w Levothyroxine IDDM2 - c/w ISS Chronic Right sided CHF / Suspected Diastolic CHF - Patient has no evidence of fluid overload - Remains oliguric - Nephrology on consultation; c/w HD as per Nephro DVT Prophylaxis - c/w Full anticoagulation with Eliquis Disposition: - Pending clinical improvement - PT / OT recommend home with services. - PFS on board for HD as outpatient Code status - full code. VS, I&O, 24H, Fishbone Vital Signs/I&O Vital Signs Date Time Temp Pulse Resp B/P (MAP) Pulse Ox O2 Delivery O2 Flow Rate FiO2 12/06/20 14:00 97.8 75 18 62/29 (40) 97 Room Air 12/06/20 06:01 2.0 I&O- Last 24 Hours up to 6 AM 12/06/20 06:00 Intake Total 1540 ml Balance 1540 ml Laboratory Data 24H LABS Laboratory Tests 2 12/05/20 16:45: Bedside Glucose (Misc Panel) 225H 12/05/20 20:26: Bedside Glucose (Misc Panel) 171H 12/06/20 07:51: Bedside Glucose (Misc Panel) 136H 12/06/20 08:33: Immature Granulocyte % (Auto) 0.5, Neutrophils (%) (Auto) 78.5H, Lymphocytes (%) (Auto) 7.6L, Monocytes (%) (Auto) 8.0, Eosinophils (%) (Auto) 5.2H, Basophils (%) (Auto) 0.2, Neutrophils # (Auto) 6.9, Lymphocytes # (Auto) 0.7L, Monocytes # (Auto) 0.7, Eosinophils # (Auto) 0.5, Basophils # (Auto) 0.0, Nucleated Red Blood Cells % (auto) 0.0, Immature Platelet Fraction 12.3H, Anion Gap 13, Glomerular Filtration Rate 8.3L, Calcium Level 8.5L, Magnesium Level 2.0, Total Bilirubin 1.3H, Aspartate Amino Transf (AST/SGOT) 19, Alanine Aminotransferase (ALT/SGPT) 27, Alkaline Phosphatase 176H, Total Protein 4.5L, Albumin 2.3L, Albumin/Globulin Ratio 1.0 12/06/20 12:36: Bedside Glucose (Misc Panel) 103 CBC/BMP Laboratory Tests 12/06/20 08:33 Microbiology Microbiology 12/01/20 Acid Fast Stain, Received Pending 12/01/20 Mycobacterial Culture, Received Pending 12/01/20 Fungal Smear, Received Pending 12/01/20 Fungal Culture, Received Pending 12/01/20 Gram Stain - Final, Complete 12/01/20 Body Fluid Culture - Final, Complete 11/30/20 Urine Culture - Final, Complete 11/29/20 Gastrointestinal Tract Panel (PCR) - Final, Complete 11/28/20 Stool Occult Blood ([facility]) - Final, Complete 11/28/20 Blood Culture - Final, Complete NO GROWTH AFTER 5 DAYS 11/28/20 Blood Culture - Final, Complete NO GROWTH AFTER 5 DAYS 11/28/20 Respiratory Virus Panel (PCR) ([facility]) - Final, Complete TIERRA PRESTON MD Dec 06, 2020 16:40
[2020-12-06] MEDS: CIPROFLOXACIN 500MG TABLET PO SCH (17:05)
[2020-12-06] MEDS: COLESEVELAM 625 MG TAB (WELCHOL) PO SCH (20:38)
[2020-12-06 22:00] VITALS: BP 78/49
[2020-12-07 06:00] VITALS: BP 76/38
[2020-12-07 06:31] LABS: BASO % 0.4 % (0.0-1.0); EOS # 0.3 10^3/uL (0.0-0.5); EOS % 3.4 % (0.0-3.0); HEMATOCRIT 29.2 % (42.0-52.0); HEMOGLOBIN 8.8 g/dl (13.5-17.5); LYMPH # 0.7 10^3/uL (1.5-5.0); LYMPH % 8.5 % (24.0-44.0); MEAN CORPUSCULAR HEMOGLOBIN 27.7 pg (27.0-33.0); MEAN CORPUSCULAR HGB CONC 30.1 g/dl (32.0-36.5); MEAN CORPUSCULAR VOLUME 91.8 fl (80.0-96.0); MONO # 0.9 10^3/uL (0.0-0.8); MONO % 10.1 % (2.0-8.0); NEUTROPHILS # 6.6 10^3/uL (1.5-8.5); NEUTROPHILS % 76.9 % (36.0-66.0); RED BLOOD COUNT 3.18 10^6/uL (4.30-6.10); WHITE BLOOD COUNT 8.5 10^3/uL (4.0-10.0)
[2020-12-07 06:37] LABS: PLATELET COUNT, AUTOMATED 63 10^3/uL (150-450)
[2020-12-07 06:56] LABS: ALBUMIN 2.1 GM/DL (3.2-5.2); BILIRUBIN,TOTAL 1.3 MG/DL (0.2-1.0); CALCIUM LEVEL 8.4 MG/DL (8.8-10.2); CREATININE FOR GFR 5.38 MG/DL (0.70-1.30); GLOMERULAR FILTRATION RATE 11.1 (>42); MAGNESIUM LEVEL 1.9 MG/DL (1.8-2.4); POTASSIUM SERUM 4.4 MEQ/L (3.5-5.1); TOTAL PROTEIN 4.1 GM/DL (6.4-8.2)
[2020-12-07] MEDS: LEVOTHYROXINE 75MCG TABLET (0.075MG) PO SCH (07:03)
[2020-12-07] MEDS: MIDODRINE 5 MG TAB PO SCH ×3 (08:45→16:50)
[2020-12-07] MEDS: HumaLOG INSULIN (NovoLOG) PER UNIT SC SCH ×4 (08:45→21:00)
[2020-12-07] MEDS: VITAMIN D 1,000 INTERNATIONAL UNITS TABLET PO SCH (08:45)
[2020-12-07] MEDS: APIXABAN 2.5 MG TAB (ELIQUIS) PO SCH ×2 (08:45→21:06)
[2020-12-07] MEDS: ASCORBIC ACID 500 MG TAB PO SCH (08:45)
[2020-12-07] MEDS: TORSEMIDE (DEMADEX) 50 MG PER 1/2 TAB PO SCH ×2 (08:46→18:33)
[2020-12-07] MEDS: PANTOPRAZOLE 40MG TAB (PROTONIX) PO SCH (08:46)
[2020-12-07 14:00] VITALS: BP 100/56
--- NOTE | 2020-12-07 15:04 | ECGEPIP ---
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
--- NOTE | 2020-12-07 16:19 | IPNPDOC ---
Subjective CC/HPI The patient is a 75-year-old male admitted with a reason for visit of Acute On Chronic Renal Failure. Events since last encounter Pt was seen at bedside today. He was dialyzed yesterday. UF 2.5Kg. He has soft BP today. Midodrine dose was increased by hospitalist. Pt is asymptomatic. He wants to go home. General: Denies: Chills, Night Sweats, Fatigue Constitutional: Denies: Chills, Fever Eyes: Denies: Pain, Vision change ENT: Denies: Head Aches, Ear Pain Skin: Denies: Rash, Lesions Pulmonary: Denies: Dyspnea, Cough Cardiovascular: Denies: Chest Pain, Palpitations Gastrointestinal: Reports: Other Symptoms (Cirrhosis and ascites) Genitourinary: Denies: Dysuria, Frequency Hematologic: Denies: Bruising, Bleeding Excessively Musculoskeletal: Denies: Neck Pain, Back Pain Neurological: Denies: Weakness, Numbness Psych: Reports: Mood Normal Objective Physical Examination General Exam: Alert, No Acute Distress EYE EXAM: PERRLA, EOMI, Sclera icteric ENT EXAM: Atraumatic, Mucous membr. moist/pink Neck Exam: Supple; No: JVD Chest Exam: Clear to auscultation, Normal air movement Heart Exam: Rate Normal, Normal S1, Normal S2; No: Murmurs, Rubs ABDOMEN EXAM: Normal bowel sounds, Soft, Other (Moderate amount of ascites noted); No: Tenderness Extremity Exam: Edema (a+ in legs); No: Clubbing, Cyanosis Skin Exam: Nl turgor and temperature; No: Rash Neuro Exam: Normal Speech, Strength at 5/5 X4 ext Psych Exam: Mental status NL, Oriented x 3 Vital Signs/I&O Vital Signs Date Time Temp Pulse Resp B/P (MAP) Pulse Ox O2 Delivery O2 Flow Rate FiO2 12/07/20 06:00 97.9 49 18 76/38 (51) 96 Room Air 12/06/20 22:55 2.0 I&O- Last 24 Hours up to 6 AM 12/07/20 06:00 Intake Total 0 ml Output Total 2600 ml Balance -2600 ml Laboratory Data Labs 24H Laboratory Tests 2 12/06/20 16:43: Bedside Glucose (Misc Panel) 166H 12/06/20 20:36: Bedside Glucose (Misc Panel) 171H 12/07/20 05:44: Bedside Glucose (Misc Panel) 141H 12/07/20 06:07: Immature Granulocyte % (Auto) 0.7, Neutrophils (%) (Auto) 76.9H, Lymphocytes (%) (Auto) 8.5L, Monocytes (%) (Auto) 10.1H, Eosinophils (%) (Auto) 3.4H, Basophils (%) (Auto) 0.4, Neutrophils # (Auto) 6.6, Lymphocytes # (Auto) 0.7L, Monocytes # (Auto) 0.9H, Eosinophils # (Auto) 0.3, Basophils # (Auto) 0.0, Nucleated Red Blood Cells % (auto) 0.0, Anion Gap 10, Glomerular Filtration Rate 11.1L, Calcium Level 8.4L, Magnesium Level 1.9, Total Bilirubin 1.3H, Aspartate Amino Transf (AST/SGOT) 15, Alanine Aminotransferase (ALT/SGPT) 24, Alkaline Phosphatase 169H, Total Protein 4.1L, Albumin 2.1L, Albumin/Globulin Ratio 1.1 12/07/20 11:58: Bedside Glucose (Misc Panel) 219H CBC/BMP Laboratory Tests 12/07/20 06:07 FSBS Laboratory Tests Test 12/06/20 16:43 12/06/20 20:36 12/07/20 05:44 12/07/20 11:58 Range/Units Bedside Glucose (Misc Panel) 166 171 141 219 83-110 MG/DL Current Medications Current Medications Medications (Trade) Dose Ordered Sig/Derik Route PRN Reason Start Time Stop Time Status Last Admin Dose Admin Acetaminophen (Tylenol Tab) 650 mg Q4H PRN PO MILD PAIN or TEMP > 101 11/28/20 12:10 Apixaban (Eliquis) 2.5 mg BID PO 12/02/20 21:00 12/07/20 08:45 Ascorbic Acid (Vitamin C) 1,000 mg DAILY PO 11/28/20 09:00 12/07/20 08:45 Ceftriaxone Sodium 1 gm/ Dextrose 50 ml @ 100 mls/hr Q12H IV 11/28/20 20:00 12/02/20 10:45 DC 12/02/20 07:59 Ciprofloxacin (Cipro) 500 mg DAILY@1800 PO 12/02/20 18:00 12/06/20 17:05 Colesevelam HCl (WelChoL) 3,750 mg QHS PO 11/28/20 21:00 12/06/20 20:38 Darbepoetin Vinny (Aranesp (Dialysis Use)) 200 mcg HD IV 12/03/20 10:40 12/03/20 13:20 Dextrose (Dextrose 50%) 25 ml ASDIRECTED PRN IV SEE LABEL COMMENTS 11/28/20 12:10 Glucagon (Glucagon) 1 mg ASDIRECTED PRN SC SEE LABEL COMMENTS 11/28/20 12:10 Glucose (Glucose) 16 GM ASDIRECTED PRN PO SEE LABEL COMMENTS 11/28/20 12:10 Heparin Sodium (Heparin) Please refer to ... ASDIRECTED XX 12/06/20 06:00 12/07/20 05:59 DC Heparin Sodium (Heparin) Please refer to ... ASDIRECTED XX 12/03/20 09:00 12/04/20 08:59 DC Heparin Sodium (Heparin) dose as per volume indica... ASDIRECTED PRN IV SEE LABEL COMMENTS 12/06/20 06:00 12/06/20 22:54 DC Heparin Sodium (Heparin) dose as per volume indica... ASDIRECTED PRN IV SEE LABEL COMMENTS 12/03/20 06:00 12/03/20 21:14 DC Home Med (Home Med List Complete!) ASDIRECTED XX 11/28/20 12:20 11/28/20 12:17 DC Insulin Human Lispro (HumaLOG INSULIN) SEE PROTOCOL TABLE AC SC 11/28/20 12:00 12/07/20 12:21 Insulin Human Lispro (HumaLOG INSULIN) SEE PROTOCOL TABLE QHS SC 11/28/20 21:00 12/01/20 20:35 Levothyroxine Sodium (Synthroid) 175 mcg DAILY@06 PO 11/28/20 06:00 12/07/20 07:03 Metoprolol Tartrate (Lopressor) 12.5 mg Q6H PO 11/29/20 12:00 12/03/20 22:32 DC 12/01/20 20:23 Midodrine (Proamatine) 5 mg TID@0800,1200,1600 PO 11/28/20 16:00 12/06/20 14:18 DC 12/06/20 12:40 Midodrine (Proamatine) 10 mg TID@0800,1200,1600 PO 12/06/20 16:00 12/07/20 12:20 Octreotide Acetate 1200 mcg/ Sodium Chloride 240 ml @ 10 mls/hr Q24H IV 11/28/20 19:00 12/01/20 15:10 DC 11/30/20 18:54 Pantoprazole Sodium (Protonix) 40 mg BID IV 11/28/20 21:00 12/02/20 10:44 DC 12/02/20 07:58 Pantoprazole Sodium (Protonix) 40 mg DAILY PO 12/03/20 09:00 12/07/20 08:46 Pantoprazole Sodium 40 mg/ Dextrose 50 ml @ 10 mls/hr Q5H IV 11/28/20 09:55 11/28/20 12:22 [place] 11/28/20 10:25 Piperacillin Sod/ Tazobactam Sod 2.25 gm/Dextrose 50 ml @ 100 mls/hr Q6H IV 11/28/20 14:00 11/28/20 17:44 [place] 11/28/20 14:15 Propranolol HCl (Inderal) 10 mg TID PO 11/29/20 09:00 11/29/20 12:04 [place] Propranolol HCl (Inderal) 10 mg TID PO 11/29/20 12:04 11/29/20 16:00 [place] 11/29/20 16:33 Sodium Bicarbonate 150 meq/Sterile Water 1,150 ml @ 70 mls/hr [id number] IV 11/29/20 10:00 12/01/20 17:23 [place] 12/01/20 11:31 Sodium Bicarbonate 75 meq/Sodium Chloride 1,075 ml @ 70 mls/hr [id number] IV 11/28/20 19:00 11/29/20 07:41 [place] 11/28/20 20:31 Sodium Chloride 1,000 ml @ 100 mls/hr Q10H IV 11/28/20 09:55 11/28/20 12:22 [place] 11/28/20 10:23 Spironolactone (Aldactone) 25 mg DAILY PO 11/28/20 09:00 11/28/20 17:05 [place] 11/28/20 14:23 Torsemide (Demadex) 50 mg BID@09,17 PO 12/05/20 09:00 12/07/20 08:46 Vitamin D (Vitamin D) 2,000 units DAILY PO 11/28/20 09:00 12/07/20 08:45 Allergies Coded Allergies: bumetanide (Verified Allergy, Unknown, UNKNOWN, 09/24/20) valsartan (Verified Allergy, Unknown, UNKNOWN REACTION, 09/24/20) Quinolones (Verified Adverse Reaction, Mild, GI UPSET, 09/24/20) atorvastatin (Verified Adverse Reaction, Mild, GI UPSET, 09/24/20) ciprofloxacin (Verified Adverse Reaction, Mild, nausea and vomiting, 09/24/20) Assessment/Plan Date Seen The patient was seen on 12/07/20 in AM at bedside. Plan / VTE VTE Prophylaxis Ordered?: Yes Plan Orders past 48 Hours Orders Fingerstick Blood Sugar (12/05/20 16:45) Fingerstick Blood Sugar (12/05/20 20:26) Hemodialysis Acute Orders (12/06/20 06:00) Heparin (Heparin) (12/06/20 06:00) Heparin (Heparin) (12/06/20 06:00) Early Tray (12/06/20 06:00) * Nursing Order * (12/06/20 06:18) Fingerstick Blood Sugar (12/06/20 07:51) Immature Platelet Fraction (12/06/20 08:33) Physician's Order (12/06/20 11:51) Fingerstick Blood Sugar (12/06/20 12:36) Midodrine Hcl (Proamatine) (12/06/20 16:00) * Nursing Order * (12/06/20 16:39) Fingerstick Blood Sugar (12/06/20 16:43) Fingerstick Blood Sugar (12/06/20 20:36) Fingerstick Blood Sugar (12/07/20 05:44) Electrocardiogram Adult (12/07/20 07:58) Administer Albumin 25% (12/07/20 08:55) Fingerstick Blood Sugar (12/07/20 11:58) Sars Covid-19 Amplification (12/07/20 13:16) Hvni (Vapotherm) (12/07/20 15:25) Plan Text 1. Acute renal failure superimposed on chronic kidney disease.HD dependent. HD done yesterday. Next Hd tomorrow if he stays in the hospital. 2. 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 Further fluid optimization with HD. 3. Anemia: NIKOLAY with HD. 4. Hypotension: Increased Midodrine 10 mg tid. Give albumin 25%, 25 gram today.Avoid use of BB due to hypotension and acute renal failure. 5. Afib: Avoid use of Metoprolol due to hypotension,. OK to use dig or amiodarone if needed. Disposition: OK to Dc from nephrology standpoint if hemodynamically stable after albumin and if he has outpatient Hd spot. MARLENE CROCKETT MD Dec 07, 2020 16:19
[2020-12-07 17:30] VITALS: BP 96/50
[2020-12-07] MEDS: CIPROFLOXACIN 500MG TABLET PO SCH (18:33)
[2020-12-07] MEDS: COLESEVELAM 625 MG TAB (WELCHOL) PO SCH (21:06)
[2020-12-07 22:00] VITALS: BP 90/60
[2020-12-08] MEDS: LEVOTHYROXINE 75MCG TABLET (0.075MG) PO SCH (05:45)
[2020-12-08 06:00] VITALS: BP 80/42
[2020-12-08 07:29] LABS: BASO % 0.2 % (0.0-1.0); EOS # 0.4 10^3/uL (0.0-0.5); EOS % 4.8 % (0.0-3.0); HEMATOCRIT 29.7 % (42.0-52.0); LYMPH # 0.7 10^3/uL (1.5-5.0); LYMPH % 7.7 % (24.0-44.0); MEAN CORPUSCULAR HEMOGLOBIN 27.7 pg (27.0-33.0); MEAN CORPUSCULAR HGB CONC 30.3 g/dl (32.0-36.5); MEAN CORPUSCULAR VOLUME 91.4 fl (80.0-96.0); MONO # 0.8 10^3/uL (0.0-0.8); MONO % 9.8 % (2.0-8.0); NEUTROPHILS # 6.5 10^3/uL (1.5-8.5); NEUTROPHILS % 76.7 % (36.0-66.0); RED BLOOD COUNT 3.25 10^6/uL (4.30-6.10); WHITE BLOOD COUNT 8.5 10^3/uL (4.0-10.0)
[2020-12-08] MEDS: HumaLOG INSULIN (NovoLOG) PER UNIT SC SCH ×2 (07:30→12:10)
[2020-12-08 07:31] LABS: PLATELET COUNT, AUTOMATED 71 10^3/uL (150-450)
[2020-12-08 07:53] LABS: ALBUMIN 2.4 GM/DL (3.2-5.2); BILIRUBIN,TOTAL 1.3 MG/DL (0.2-1.0); CALCIUM LEVEL 8.2 MG/DL (8.8-10.2); CREATININE FOR GFR 6.37 MG/DL (0.70-1.30); GLOMERULAR FILTRATION RATE 9.2 (>42); MAGNESIUM LEVEL 2.1 MG/DL (1.8-2.4); POTASSIUM SERUM 3.9 MEQ/L (3.5-5.1); TOTAL PROTEIN 4.5 GM/DL (6.4-8.2)
[2020-12-08] MEDS: APIXABAN 2.5 MG TAB (ELIQUIS) PO SCH (08:43)
[2020-12-08] MEDS: PANTOPRAZOLE 40MG TAB (PROTONIX) PO SCH (08:43)
[2020-12-08] MEDS: VITAMIN D 1,000 INTERNATIONAL UNITS TABLET PO SCH (08:43)
[2020-12-08] MEDS: MIDODRINE 5 MG TAB PO SCH ×2 (08:43→12:09)
[2020-12-08] MEDS: TORSEMIDE (DEMADEX) 50 MG PER 1/2 TAB PO SCH ×3 (08:43→11:07)
[2020-12-08 08:49] VITALS: BP 80/38
[2020-12-08 10:33] VITALS: BP 82/50
--- NOTE | 2020-12-08 11:35 | DS.PDOC ---
Discharge Summary General Date of Admission Nov 28, 2020 at 12:04 Date of Discharge 12/08/20 Discharge Summary PROCEDURES PERFORMED DURING STAY: [None]. ADMITTING DIAGNOSES: Suspected GI bleed GERARDO on Chronic CKD GALAVIZ with ascites Afib on eliquis Chronic hypotension Hx Hypothyroidism IDDM2 Hx of CHF, unspecified DISCHARGE DIAGNOSES: Suspected GI bleed GERARDO on Chronic CKD GALAVIZ with ascites Afib on eliquis Chronic hypotension Hx Hypothyroidism IDDM2 HFpEF COMPLICATIONS/CHIEF COMPLAINT: Acute On Chronic Renal Failure. HISTORY OF PRESENT ILLNESS: Obtained from H&P: "Mr. Bassett is a 75 year old man with an extensive medical history, notable for GALAVIZ with recurrent ascities (paracentesis q2-4 weeks), esophageal varices with banding, CHF, afib on Eliquis, CKD stage 3, hypothyroidism, AAA and right sided orchiectomy who presents to the [facility] ER with CC of black tarry stools for 3 days with left periumbilical abdominal pain which is intermittent over the last 4 days. He reports some relief of his pain in the left lateral recumbent position. When lying flat, he reports the pain is a 6-7/10, but LLD, the pain is a 1-2/10. He states that his diarrhea started out brown in color but progressed to black and tarry. He was prompted to come to the emergency room today (11/28) when he saw bright red blood on his toilet tissue. He states that he has been able to eat but that food will go right through him and he will have an episode of diarrhea 30-60 min after eating. He also states trying tea, ihsan sean and water as palliative for his diarrhea with no change. He reports being on antibiotics recently for an arm infection He had one episode of vomiting the morning of 11/26 but attributes this to post nasal drip from chronic sinusitis. He also reports some low sternal/epigastric pain on 11/26 as well. In the emergency room the patients labs were significant for a WBC of 10.5, Hgb of 8.5, Hct of 28.6, BUN if 161 and Cr of 7.64. A CT Abd/Pelv was performed and is pending results. A CXR showed stable chronic changes but subtle basilar atelectasis cannot be excluded. This patient has recurrent paracentesis every 2-4 weeks prn. His last paracentesis was 11/17/20, and per the report, they removed 7000mL of fluid from his abdomen. The patient had an upper endoscopy in July of 2020 and was found to have grade 2 varices. " HOSPITAL COURSE: GERARDO on CKD3 with oliguria - possible component of hepatorenal syndrome - Renal function does not appear to be improving significantly without dialysis - PermCath placement by IR 11/30 - Started HD on 11/30 but wasn't able to tolerate 2/2 Hypotension; First successful HD on 12/01 - Will need HD regularly moving forward; PFS on board, has a HD chair on outpatient basis. - Nephrology on consultation; appreciate their input - Received IV albumin. BP remains stable, and patient is asymptomatic despite hypotensive pressures recorded. - D/w Dr. Rodriguez, patient is appropriate for DC. To continue midodrine. Continue HD MWF. Cirrhosis 2/2 GALAVIZ complicated with ascites - Patient reports that his abdomen feels fine - Physicals without any tenderness - Afebrile / Hemodynamically stable - s/p Albumin infusion - s/p Paracentesis on 12/01 with 10L of fluid removed - cytology negative for malignancy, no bacterial growth. AFB/fungal cultures pending. - c/w Ciprofloxacin (Day #4) on DC for SBP ppx; s/p Ceftriaxone (5 days). Chronic hypotension - increased midodrine to 10 mg TID Anemia - likely 2/2 renal disease, less likely 2/2 GI bleeding (Hx of Esophageal varices w/ banding) - No additional dark stools noted - Occult stool positive - s/p 2 units PRBC - s/p Octreotide - GI consulted. D/w Dr. Prince. Believes risk of EGD outweighs benefits. - to follow up with GI service on DC as outpatient per Dr. Prince. Thrombocytopenia - Platelet count had trended down; but remains stable currently s/p Metabolic acidosis - likely 2/2 diarrhea and GERARDO - s/p Bicarbonate drip and HD s/p Hyperkalemia - likely 2/2 GERARDO Irregularity of bladder on imaging - possibly 2/2 malignancy - Patient has cytology completed on 11/10/2020; consistent with malignancy - Patient will need to further evaluation with urology and oncology on discharge Chronic A. fib - On 11/29 morning, patient had an episode of multiple runs of V. tach; had remained asymptomatic - likely 2/2 electrolyte / acid-base imbalances - Thyroid function normal - Troponin trend stable - EKG and echo reviewed. - metoprolol tartrate has been DC due to hypotension. - Full AC with Eliquis resumed, after GI permission. Hypothyroidism - c/w Levothyroxine IDDM2 - c/w ISS Chronic Right sided CHF / Suspected Diastolic CHF - Patient has no evidence of fluid overload - Remains oliguric - Nephrology on consultation; c/w HD as per Nephro DVT Prophylaxis - c/w Full anticoagulation with Eliquis Disposition: - DC home with services. DISCHARGE MEDICATIONS: Please see below. ALLERGIES: Please see below. PHYSICAL EXAMINATION ON DISCHARGE: VITAL SIGNS: please see below General: NAD, comfortable HEENT: PERRLA, EOMI, sclerae clear Neck: supple, normal ROM, no JVD Respiratory: lungs CTAB, no wheeze, no rales, no crackles CVS: RRR, normal S1, S2, no murmurs Abdo: soft, distended, ascites, non tender to palpation Extremities: no edema, pulses 2+ MSK: no joint deformities, normal ROM Neuro: no focal neuro deficits, moving all 4 extremities, CN2-12 intact. Strength 5/5 in all 4 extremities. No nystagmus. Psych: calm, cooperative, AAO x 3 LABORATORY DATA: Please see below. IMAGING: CXR, portable AP view - 11/28/2020 Stable chronic changes. Cannot exclude subtle basilar atelectasis CT Abd/Pelv w/o contrast 11/28/2020 1. Cirrhotic liver with splenomegaly and portal venous hypertension. Large amount of ascites noted throughout the abdomen and pelvis 2. Subtle cystic change in the body of the pancreas is suspected. 3. Kidneys demonstrate chronic atrophy and bilateral hypodensities suggesting cysts including large left renal cysts measuring up to roughly 6 cm. 4. The enteric system is without obstruction. Colonic and sigmoid diverticulosis noted. 5. Underlying acute process involving the enteric system cannot be excluded due to extensive mesenteric infiltration and ascites related to above-mentioned cirrhosis. 6. Pelvis demonstrates normal prostate gland and bladder wall thickening along with soft tissue and small calcifications along the posterior wall the bladder which are nonspecific. 7. Extensive atherosclerotic changes to the aorta and vasculature noted without aneurysm. 8. Skeletal structures demonstrate osteopenia and degenerative changes. ECHO 11/29: 1. Severe concentric left ventricular hypertrophy. Normal regional left ventricle (LV) wall motion and wall thickness. Normal left ventricle (LV) systolic function. Left ventricle ejection fraction (LVEF) 60% by visual estimate. 2. Severe left atrial dilatation by visual estimate. 3. Suggestive of moderate elevation of estimated right ventricle systolic pressure. Normal right ventricle size and systolic function. Normal tricuspid and pulmonic valves. Very mild tricuspid regurgitation. 4. Mild aortic valve sclerosis of a 3-cuspid aortic valve. No aortic regurgita tion. 5. Mild mitral annular calcification. Very mild mitral regurgitation. 6. Left pleural effusion. 7. Presence of a right ventricle pacemaker lead coursing towards the right ventricle apex position. CXR, portable AP view 12/01/2020 Findings suggesting pulmonary vascular congestion along with lower lobe opacities/atelectasis and small right pleural effusion. Paracentesis 12/01: 11268 mL of yellow ascites was removed in total, 1300 was sent to the laboratory for further analysis, and the rest was discarded. PROGNOSIS: fair ACTIVITY: walker, home PT/OT DIET: renal diet DISCHARGE PLAN: DC home with services. Continue HD scheduled MWF. Needs to follow up with urology for workup of bladder mass. To follow up with PCP 3-5 days. Follow up with nephrology. Follow u with [facility] Norton. To follow up with Dr. Wyman office due to hx of afib. Metoprolol has been stopped due to persistent hypotension. Patient will continue with ciprofloxacin due to high risk of SBP. Continue taking midodrine in setting of recurrent hypotension. DISPOSITION: DC home with services. DISCHARGE INSTRUCTIONS: F/u with PCP F/u urology for ongoing workup of bladder mass F/u [facility] Norton in 2-4 weeks. F/u Dr. Wyman in 2 weeks for management of afib. Note metoprolol has been held due to hypotension. Please take medications as prescribed. If you develop worsening fatigue, lightheadedness, bleeding, chest pain, shortness of breath, palpitations, fever, or otherwise worsening of your symptoms, please call 911 or return to nearest ER. ITEMS TO FOLLOW UP: - final paracentesis cultures. DISCHARGE CONDITION: [Stable]. TIME SPENT ON DISCHARGE:35 minutes Vital Signs/I&Os Vital Signs Date Time Temp Pulse Resp B/P (MAP) Pulse Ox O2 Delivery O2 Flow Rate FiO2 12/08/20 10:33 82/50 (61) 12/08/20 06:00 98.1 60 18 95 Room Air 12/06/20 22:55 2.0 I&O- Last 24 Hours up to 6 AM 12/08/20 06:00 Intake Total 720 ml Balance 720 ml Laboratory Data Labs 24H Laboratory Tests 2 12/07/20 11:58: Bedside Glucose (Misc Panel) 219H 12/07/20 16:27: Bedside Glucose (Misc Panel) 189H 12/07/20 19:53: Bedside Glucose (Misc Panel) 163H 12/07/20 21:02: Coronavirus (COVID-19)(PCR) NEGATIVE 12/08/20 07:05: Immature Granulocyte % (Auto) 0.8, Neutrophils (%) (Auto) 76.7H, Lymphocytes (%) (Auto) 7.7L, Monocytes (%) (Auto) 9.8H, Eosinophils (%) (Auto) 4.8H, Basophils (%) (Auto) 0.2, Neutrophils # (Auto) 6.5, Lymphocytes # (Auto) 0.7L, Monocytes # (Auto) 0.8, Eosinophils # (Auto) 0.4, Basophils # (Auto) 0.0, Nucleated Red Blood Cells % (auto) 0.0, Immature Platelet Fraction 9.3, Anion Gap 11, Glomerular Filtration Rate 9.2L, Calcium Level 8.2L, Magnesium Level 2.1, Total Bilirubin 1.3H, Aspartate Amino Transf (AST/SGOT) 22, Alanine Aminotransferase (ALT/SGPT) 26, Alkaline Phosphatase 176H, Total Protein 4.5L, Albumin 2.4L, Albumin/Globulin Ratio 1.1 12/08/20 11:05: Bedside Glucose (Misc Panel) 185H CBC/BMP Laboratory Tests 12/08/20 07:05 FSBS Laboratory Tests Test 12/07/20 11:58 12/07/20 16:27 12/07/20 19:53 12/08/20 11:05 Range/Units Bedside Glucose (Misc Panel) 219 189 163 185 83-110 MG/DL Microbiology Microbiology 12/01/20 Acid Fast Stain, Received Pending 12/01/20 Mycobacterial Culture, Received Pending 12/01/20 Fungal Smear, Received Pending 12/01/20 Fungal Culture, Received Pending 12/01/20 Gram Stain - Final, Complete 12/01/20 Body Fluid Culture - Final, Complete 11/30/20 Urine Culture - Final, Complete 11/29/20 Gastrointestinal Tract Panel (PCR) - Final, Complete 11/28/20 Stool Occult Blood (AL[place]) - Final, Complete 11/28/20 Blood Culture - Final, Complete NO GROWTH AFTER 5 DAYS 11/28/20 Blood Culture - Final, Complete NO GROWTH AFTER 5 DAYS 11/28/20 Respiratory Virus Panel (PCR) ([facility]) - Final, Complete Discharge Medications Scheduled Allopurinol (Allopurinol) 100 Mg Tablet, 100 MG PO DAILY, (Reported) Apixaban (Eliquis) 2.5 Mg Tablet, 2.5 MG PO BID, (Reported) Ascorbic Acid (Vitamin C) 500 Mg Tablet, 1,000 MG PO DAILY, (Reported) TAKES AT NOON Cholecalciferol (Vitamin D3) (Vitamin D3) 1,000 Unit Tablet, 2,000 UNITS PO DAILY, (Reported) TAKES AT NOON Ciprofloxacin HCl (Cipro) 500 Mg Tablet, 500 MG PO DAILY@1800 Colesevelam Hydrochloride (Welchol) 625 Mg Tablet, 3,750 MG PO QHS, (Reported) Glucosamine/Chondroitin/C/Clay (Glucosamine-Chondroitin Capsul) 1 Cap Cap, 1 CAP PO BID, (Reported) Insulin Aspart (Novolog Flexpen) 100 Unit/1 Ml Insuln.pen, 1 DOSE SC AC, (Reported) PER SLIDING SCALE Insulin Detemir (Levemir Flextouch) 100 Unit/1 Ml Insuln.pen, 10 UNIT SC BID Levothyroxine Sodium (Levothyroxine Sodium) 175 Mcg Tab, 175 MCG PO QAM, (Reported) Midodrine HCl (Midodrine HCl) 5 Mg Tablet, 10 MG PO TID@0800,1200,1600 Multivitamin (Multivitamins) 1 Each Tablet, 1 TAB PO DAILY, (Reported) TAKES AT NOON Pantoprazole Sodium (Pantoprazole Sodium) 40 Mg Tablet.dr, 40 MG PO DAILY, (Reported) Torsemide (Torsemide) 100 Mg Tablet, 50 MG PO BID, (Reported) Vit A/Vit C/Vit E/Zinc/Copper (Preservision Areds Softgel) 1 Each Capsule, 1 CAP PO BID, (Reported) Allergies Coded Allergies: bumetanide (Verified Allergy, Unknown, UNKNOWN, 09/24/20) valsartan (Verified Allergy, Unknown, UNKNOWN REACTION, 09/24/20) Quinolones (Verified Adverse Reaction, Mild, GI UPSET, 09/24/20) atorvastatin (Verified Adverse Reaction, Mild, GI UPSET, 09/24/20) ciprofloxacin (Verified Adverse Reaction, Mild, nausea and vomiting, 09/24/20) TIERRA PRESTON MD Dec 08, 2020 11:35
[2020-12-08] MEDS ORDERED: LEVE1INJ5 SC (11:58)
[2020-12-08] MEDS ORDERED: ACET1TAB55 PO (11:58)
[2020-12-08] MEDS ORDERED: MIDO5TA PO (11:58)
[2020-12-08] MEDS ORDERED: CIPR-249 PO (11:58)
--- NOTE | 2020-12-08 21:39 | IPNPDOC ---
Subjective CC/HPI The patient is a 75-year-old male admitted with a reason for visit of Acute On Chronic Renal Failure. Events since last encounter Pt was seen and examined at bedside. Last HD was 2 days ago. I was told by hospitalist that pt is still hypotensive despite Albumin that was given yesterday. SBP in 80s but pt is asymptomatic. He is sitting up in bed awake and oriented and getting ready to go home. HE has outpatient HD spot [facility]. General: Denies: Chills, Night Sweats Constitutional: Denies: Chills, Fever, Malaise Eyes: Denies: Pain, Vision change ENT: Denies: Head Aches, Ear Pain Skin: Denies: Rash, Lesions Pulmonary: Denies: Dyspnea, Cough Cardiovascular: Denies: Chest Pain, Palpitations Gastrointestinal: Reports: Other Symptoms (Cirrhosis and ascites); Denies: Nausea, Vomiting Genitourinary: Denies: Dysuria, Incontinence Hematologic: Denies: Bruising, Bleeding Excessively Musculoskeletal: Denies: Neck Pain, Back Pain Neurological: Denies: Weakness, Numbness Psych: Reports: Mood Normal Objective Physical Examination General Exam: Alert, No Acute Distress EYE EXAM: PERRLA, EOMI, Sclera icteric ENT EXAM: Atraumatic, Mucous membr. moist/pink Neck Exam: Supple; No: JVD Chest Exam: Clear to auscultation, Normal air movement Heart Exam: Rate Normal, Normal S1, Normal S2; No: Murmurs, Rubs ABDOMEN EXAM: Normal bowel sounds, Soft, Other (Moderate amount of ascites noted); No: Tenderness Extremity Exam: Edema (1+ in legs); No: Clubbing, Cyanosis Skin Exam: Nl turgor and temperature; No: Rash Neuro Exam: Normal Speech, Strength at 5/5 X4 ext Psych Exam: Mental status NL, Mood NL, Oriented x 3 Vital Signs/I&O Vital Signs Date Time Temp Pulse Resp B/P (MAP) Pulse Ox O2 Delivery O2 Flow Rate FiO2 12/08/20 10:33 82/50 (61) 12/08/20 06:00 98.1 60 18 95 Room Air 12/06/20 22:55 2.0 I&O- Last 24 Hours up to 6 AM 12/08/20 06:00 Intake Total 720 ml Balance 720 ml Laboratory Data Labs 24H Laboratory Tests 2 12/08/20 07:05: Immature Granulocyte % (Auto) 0.8, Neutrophils (%) (Auto) 76.7H, Lymphocytes (%) (Auto) 7.7L, Monocytes (%) (Auto) 9.8H, Eosinophils (%) (Auto) 4.8H, Basophils (%) (Auto) 0.2, Neutrophils # (Auto) 6.5, Lymphocytes # (Auto) 0.7L, Monocytes # (Auto) 0.8, Eosinophils # (Auto) 0.4, Basophils # (Auto) 0.0, Nucleated Red Blood Cells % (auto) 0.0, Immature Platelet Fraction 9.3, Anion Gap 11, Glomerular Filtration Rate 9.2L, Calcium Level 8.2L, Magnesium Level 2.1, Total Bilirubin 1.3H, Aspartate Amino Transf (AST/SGOT) 22, Alanine Aminotransferase (ALT/SGPT) 26, Alkaline Phosphatase 176H, Total Protein 4.5L, Albumin 2.4L, Albumin/Globulin Ratio 1.1 12/08/20 11:05: Bedside Glucose (Misc Panel) 185H CBC/BMP Laboratory Tests 12/08/20 07:05 FSBS Laboratory Tests Test 12/08/20 11:05 Range/Units Bedside Glucose (Misc Panel) 185 83-110 MG/DL Current Medications Current Medications Medications (Trade) Dose Ordered Sig/Derik Route PRN Reason Start Time Stop Time Status Last Admin Dose Admin Acetaminophen (Tylenol Tab) 650 mg Q4H PRN PO MILD PAIN or TEMP > 101 11/28/20 12:10 12/08/20 15:03 DC Apixaban (Eliquis) 2.5 mg BID PO 12/02/20 21:00 12/08/20 15:03 DC 12/08/20 08:43 Ascorbic Acid (Vitamin C) 1,000 mg DAILY PO 11/28/20 09:00 12/08/20 07:54 DC 12/07/20 08:45 Ceftriaxone Sodium 1 gm/ Dextrose 50 ml @ 100 mls/hr Q12H IV 11/28/20 20:00 12/02/20 10:45 DC 12/02/20 07:59 Ciprofloxacin (Cipro) 500 mg DAILY@1800 PO 12/02/20 18:00 12/08/20 15:03 DC 12/07/20 18:33 Colesevelam HCl (WelChoL) 3,750 mg QHS PO 11/28/20 21:00 12/08/20 15:03 DC 12/07/20 21:06 Darbepoetin Vinny (Aranesp (Dialysis Use)) 200 mcg HD IV 12/03/20 10:40 12/08/20 15:03 DC 12/03/20 13:20 Dextrose (Dextrose 50%) 25 ml ASDIRECTED PRN IV SEE LABEL COMMENTS 11/28/20 12:10 12/08/20 15:03 DC Glucagon (Glucagon) 1 mg ASDIRECTED PRN SC SEE LABEL COMMENTS 11/28/20 12:10 12/08/20 15:03 DC Glucose (Glucose) 16 GM ASDIRECTED PRN PO SEE LABEL COMMENTS 11/28/20 12:10 12/08/20 15:03 DC Heparin Sodium (Heparin) Please refer to ... ASDIRECTED XX 12/06/20 06:00 12/07/20 05:59 DC Heparin Sodium (Heparin) Please refer to ... ASDIRECTED XX 12/08/20 07:55 12/08/20 15:03 DC Heparin Sodium (Heparin) Please refer to ... ASDIRECTED XX 12/03/20 09:00 12/04/20 08:59 DC Heparin Sodium (Heparin) dose as per volume indica... ASDIRECTED PRN IV SEE LABEL COMMENTS 12/06/20 06:00 12/06/20 22:54 DC Heparin Sodium (Heparin) dose as per volume indica... ASDIRECTED PRN IV SEE LABEL COMMENTS 12/08/20 07:55 12/08/20 15:03 DC Heparin Sodium (Heparin) dose as per volume indica... ASDIRECTED PRN IV SEE LABEL COMMENTS 12/03/20 06:00 12/03/20 21:14 DC Home Med (Home Med List Complete!) ASDIRECTED XX 11/28/20 12:20 11/28/20 12:17 DC Insulin Human Lispro (HumaLOG INSULIN) SEE PROTOCOL TABLE AC SC 11/28/20 12:00 12/08/20 15:03 DC 12/08/20 12:10 Insulin Human Lispro (HumaLOG INSULIN) SEE PROTOCOL TABLE QHS SC 11/28/20 21:00 12/08/20 15:03 DC 12/01/20 20:35 Levothyroxine Sodium (Synthroid) 175 mcg DAILY@06 PO 11/28/20 06:00 12/08/20 15:03 [place] 12/08/20 05:45 Metoprolol Tartrate (Lopressor) 12.5 mg Q6H PO 11/29/20 12:00 12/03/20 22:32 DC 12/01/20 20:23 Midodrine (Proamatine) 5 mg TID@0800,1200,1600 PO 11/28/20 16:00 12/06/20 14:18 DC 12/06/20 12:40 Midodrine (Proamatine) 10 mg TID@0800,1200,1600 PO 12/06/20 16:00 12/08/20 15:03 DC 12/08/20 12:09 Octreotide Acetate 1200 mcg/ Sodium Chloride 240 ml @ 10 mls/hr Q24H IV 11/28/20 19:00 12/01/20 15:10 [place] 11/30/20 18:54 Pantoprazole Sodium (Protonix) 40 mg BID IV 11/28/20 21:00 12/02/20 10:44 NJ 12/02/20 07:58 Pantoprazole Sodium (Protonix) 40 mg DAILY PO 12/03/20 09:00 12/08/20 15:03 NJ 12/08/20 08:43 Pantoprazole Sodium 40 mg/ Dextrose 50 ml @ 10 mls/hr Q5H IV 11/28/20 09:55 11/28/20 12:22 NJ 11/28/20 10:25 Piperacillin Sod/ Tazobactam Sod 2.25 gm/Dextrose 50 ml @ 100 mls/hr Q6H IV 11/28/20 14:00 11/28/20 17:44 NJ 11/28/20 14:15 Propranolol HCl (Inderal) 10 mg TID PO 11/29/20 09:00 11/29/20 12:04 NJ Propranolol HCl (Inderal) 10 mg TID PO 11/29/20 12:04 11/29/20 16:00 NJ 11/29/20 16:33 Sodium Bicarbonate 150 meq/Sterile Water 1,150 ml @ 70 mls/hr [id number] IV 11/29/20 10:00 12/01/20 17:23 NJ 12/01/20 11:31 Sodium Bicarbonate 75 meq/Sodium Chloride 1,075 ml @ 70 mls/hr [id number] IV 11/28/20 19:00 11/29/20 07:41 DC 11/28/20 20:31 Sodium Chloride 1,000 ml @ 100 mls/hr Q10H IV 11/28/20 09:55 11/28/20 12:22 DC 11/28/20 10:23 Spironolactone (Aldactone) 25 mg DAILY PO 11/28/20 09:00 11/28/20 17:05 DC 11/28/20 14:23 Torsemide (Demadex) 50 mg BID@09,17 PO 12/05/20 09:00 12/08/20 15:03 DC 12/08/20 11:07 Vitamin D (Vitamin D) 2,000 units DAILY PO 11/28/20 09:00 12/08/20 15:03 DC 12/08/20 08:43 Allergies Coded Allergies: bumetanide (Verified Allergy, Unknown, UNKNOWN, 09/24/20) valsartan (Verified Allergy, Unknown, UNKNOWN REACTION, 09/24/20) Quinolones (Verified Adverse Reaction, Mild, GI UPSET, 09/24/20) atorvastatin (Verified Adverse Reaction, Mild, GI UPSET, 09/24/20) ciprofloxacin (Verified Adverse Reaction, Mild, nausea and vomiting, 09/24/20) Assessment/Plan Date Seen The patient was seen on 12/08/20 in AM. Plan / VTE VTE Prophylaxis Ordered?: Yes Plan Orders past 48 Hours Orders Fingerstick Blood Sugar (12/07/20 05:44) Electrocardiogram Adult (12/07/20 07:58) Administer Albumin 25% (12/07/20 08:55) Fingerstick Blood Sugar (12/07/20 11:58) Sars Covid-19 Amplification (12/07/20 13:16) Hvni (Vapotherm) (12/07/20 15:25) Fingerstick Blood Sugar (12/07/20 16:27) Albumin 25% (12/07/20 16:38) Administer Albumin 25% (12/07/20 ) Albumin 25% (12/07/20 16:38) Fingerstick Blood Sugar (12/07/20 19:53) Immature Platelet Fraction (12/08/20 07:05) Vs Q15m Icu/Pcu,Q30m M/S Hd (12/08/20 07:54) Hemodialysis Acute Orders (12/08/20 07:54) Heparin (Heparin) (12/08/20 07:55) Heparin (Heparin) (12/08/20 07:55) Oxygen Therapy Orders (12/08/20 07:54) Fingerstick Blood Sugar (12/08/20 11:05) * Nursing Order * (12/08/20 11:07) Discharge/Transfer Order (12/08/20 11:34) Patient Discharge Instruction (12/08/20 13:17) Plan Text 1. Acute renal failure superimposed on chronic kidney disease.HD dependent. HD done 2 days ago. Next Hd tomorrow AM as per his regular outpatient schedule. No urgent need to do HD today. 2. 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 Further fluid optimization with HD. 3. Anemia: NIKOLAY with HD. 4. Hypotension: Midodrine 10 mg tid. Pt asymptomatic with SBP in 80s 5. Afib: Avoid use of Metoprolol due to hypotension,. OK to use dig or amiodarone if needed. Disposition: OK to Dc from nephrology standpoint. Follow up [facility] dialysis [place] tomorrow. F MARLENE MARTIN MD Dec 08, 2020 21:39
== END 2020-12-08 14:55 | disposition home health service (06) | DRG 673 ==
LOC: M ED 09:24 → EDBD 09:24 → M ED INP 12:04 → ENRESERV 12:30 → M PCU 13:38 → M MSPAV 12-04 14:04
PROVIDERS: ADMIT Internal Medicine; ATTEND Family Medicine
PROC: 30233J1 Transfusion of Nonautologous Serum Albumin into Peripheral Vein, Percutaneous Approach (ICD-10-PCS; 2020-11-28)
PROC: 30233N1 Transfusion of Nonautologous Red Blood Cells into Peripheral Vein, Percutaneous Approach (ICD-10-PCS; 2020-11-29)
PROC: 02HV33Z Insertion of Infusion Device into Superior Vena Cava, Percutaneous Approach (ICD-10-PCS; 2020-11-30)
PROC: 0JH63XZ Insertion of Tunneled Vascular Access Device into Chest Subcutaneous Tissue and Fascia, Percutaneous Approach (ICD-10-PCS; principal; 2020-11-30 09:26)
PROC: 0W9G3ZX Drainage of Peritoneal Cavity, Percutaneous Approach, Diagnostic (ICD-10-PCS; 2020-12-01)
PROC: 5A1D70Z Performance of Urinary Filtration, Intermittent, Less than 6 Hours Per Day (ICD-10-PCS; 2020-12-01)
DX: N17.9 Acute kidney failure, unspecified (principal); K76.7 Hepatorenal syndrome; I50.32 Chronic diastolic (congestive) heart failure; R18.8 Other ascites; E87.2 Acidosis; E87.0 Hyperosmolality and hypernatremia; I48.20 Chronic atrial fibrillation, unspecified; I85.10 Secondary esophageal varices without bleeding; K75.81 Nonalcoholic steatohepatitis (NASH); N18.30 Chronic kidney disease, stage 3 unspecified; E03.9 Hypothyroidism, unspecified; I71.4 Abdominal aortic aneurysm, without rupture; M10.9 Gout, unspecified; E11.22 Type 2 diabetes mellitus with diabetic chronic kidney disease; K21.9 Gastro-esophageal reflux disease without esophagitis; I25.10 Atherosclerotic heart disease of native coronary artery without angina pectoris; E87.5 Hyperkalemia; I95.89 Other hypotension; D63.1 Anemia in chronic kidney disease; D69.6 Thrombocytopenia, unspecified; I25.2 Old myocardial infarction; G47.33 Obstructive sleep apnea (adult) (pediatric); Z90.49 Acquired absence of other specified parts of digestive tract; Z96.651 Presence of right artificial knee joint; Z98.49 Cataract extraction status, unspecified eye; Z85.47 Personal history of malignant neoplasm of testis; Z87.891 Personal history of nicotine dependence; K74.60 Unspecified cirrhosis of liver; Z79.01 Long term (current) use of anticoagulants; Z79.4 Long term (current) use of insulin; Z79.899 Other long term (current) drug therapy; Z88.1 Allergy status to other antibiotic agents; Z88.8 Allergy status to other drugs, medicaments and biological substances; Z99.2 Dependence on renal dialysis

== ENCOUNTER → 2020-12-21 | Outpatient (CLI) | payer MEDICARE, BC, OTHER ==
[~2020-12-21] MED LIST changes: +ACET1TAB55 PO; +CIPR-249 PO; -SPIRONOLACTONE 25 MG TAB PO SCH
[2020-12-21 14:39] VITALS: BP 108/60
--- NOTE | 2020-12-21 18:50 | REP ---
INDICATION: ASCITES The patient has a history of ascites COMPARISON: None. TECHNIQUE: The procedure was performed by ANTHONY Moore, under the direct supervision of Dr. Andino The risks and benefits of the procedure were explained to the patient and an informed consent was obtained both verbally and written. Directly prior to the start of the procedure a formal time-out was completed in the procedure room. The largest pocket of fluid was localized in the right lower quadrant using ultrasound guidance. The skin was prepped and draped in a sterile fashion. Ten ML of 1% lidocaine 10 mg/ml was used as a local anesthetic. An 8-Tajik multi side-hole catheter was inserted using trocar technique. FINDINGS: Paracentesis yielding 8100 mL of clear yellow fluid. The patient tolerated the procedure well and there were no immediate complications. After the appropriate amount of monitored convalescence, the patient was discharged from the department. IMPRESSION: Technically successful paracentesis yielding 8100 mL of clear yellow fluid. <Electronically signed by Hetal Smith > 12/21/20 1503 <Electronically signed by Jason Andino > 12/21/20 7020
== END ==
LOC: M IRPRO 13:15
PROVIDERS: ATTEND Internal Medicine Nephrology
DX: R18.8 Other ascites (principal)

== ENCOUNTER 2020-12-27 08:03 | Inpatient (IN) | payer MEDICARE, BC, OTHER ==
[~2020-12-27] VITALS: Ht 180.3 cm; Wt 106.1 kg
[2020-12-27] VITALS (25 sets, daily range): BP systolic 72–123; BP diastolic 39–85; O2SAT 89–95
--- OUTSIDE RECORDS SUMMARY | 2020-12-27 09:55 | CCD ---
Author Author [facility] Organization [facility] Address Unknown Phone Unavailable Care Team Providers Care Executive Chairman Of The Board Name Role Phone China Bejarano Unavailable PROBLEMS Type Condition ICD9-CM Code [id number] Code Onset Dates Condition S tatus W/U Status Risk SNOMED Code Notes Problem Chronic obstructive pulmonary disease, unspecified COPD ty pe J44.9 Active confirmed 45271754 Problem Chronic diastolic heart failure I50.32 Active confi rmed 764335587 Problem Atrial fibrillation, unspecified type I48.91 Ac tive confirmed 50295159 Problem Type 2 diabetes mellitus without complications E11 .9 Active confirmed 836934879 Problem Acquired hypothyroidism E03.9 Active confirmed 277977481 Problem Ybarra's esophagus with low grade dysplasia K22.7 10 Active confirmed 1131301586008358 Problem Idiopathic esophageal varices with bleeding I85.01 Active confirmed 03756840 Problem 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 Active confirmed 598986538000469 Problem Unspecified cirrhosis of liver K74.60 Active confir med 467351874 Problem Secondary esophageal varices with bleeding I85.11 Active confirmed 35269477 Problem Lesion of bladder N32.9 Active confirmed 30 7095514 Problem Venous stasis dermatitis of both lower extremities I87.2 Active confirmed 82838378 Problem Hydrocele N43.3 Active confirmed 803148605 Problem Atrophic kidney N26.1 Active confirmed 1975 59431 Problem Idiopathic chronic gout of foot without tophus, 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 Active confirmed 54367027 Problem Psoriasis L40.9 Active confirmed 5497160 Problem Varicocele I86.1 Active confirmed 58488862 Problem GALAVIZ (nonalcoholic steatohepatitis) K75.81 Acti ve confirmed 677599775 Problem Gastroesophageal reflux dise ase, unspecified whether esophagitis present K21.9 Active confirmed 940084132 Problem Bladder wall thickening N32.89 Active confirmed 696124167 Problem Chronic kidney disease, unspecified CKD stage N18. 9 Active confirmed 442561758 ALLERGIES Allergen (clinical drug ingredient) Drug/Non Drug Allergy do cumented on EMR Reaction Allergy Type Onset Date Status atorvastatin Lipitor(NDC Code:[address]-99) elevated LFT's Drug Doug rgy Active ciprofloxacin Cipro(NDC Code:[address]-36) Nausea/Vomiting Drug Doug rgy Active valsartan Diovan(ND Code:[address]-22) Unknown Drug Allergy Active Quinolones Quinolones Rash Drug Allergy Active bumetanide Bumex(ND Code:[address]-91) Unknown Drug Allergy Active ENCOUNTERS from 1945 to 2020-12-23 Encounter Location Date Provider Diagnosis [facility] [id number] [facility] [phone] [place] [address] Nov, Chian Bejarano IMMUNIZATIONS Vaccine Route Administration Date Status Pneumococcal Adult 0.5mL Pneumovax 23 IM Intramuscular September 13, 2020 Administered SOCIAL HISTORY Tobacco Use: Social History Observation Description Date Details (start date - stop date) Former Smoker Sex Assigned At : Social History Observation Description Sex Assigned At Unknown Education: Question Answer Notes Level of Education: High School Language: Question Answer Notes Languages spoken: Persian Religious: Question Answer Notes Religious 13 Yazidism Sexual Hx: Question Answer Notes Had sex in the last 12 months (vaginal, oral, or anal)? No Have you ever had an STD? No Alcohol Screening: Question Answer Notes Did you have a drink containing alcohol in the past year? No Points 0 Interpretation Negative BMI Care Goal Follow-Up Question Answer Notes Above Normal BMI Follow-Up Dietary management educatio n, guidance, and counseling Tobacco Use: Question Answer Notes Are you a: former smoker How long has it been since you last smoked? 5-10 years REASON FOR REFERRAL No Information VITAL SIGNS No information MEDICATIONS Medication SIG (Take, Route, Frequency, Duration) Notes Start Da te End Date Status Torsemide 100 MG 1/2 tablet Orally bid Active Omeprazole 40 mg 1 capsule Orally daily Not-Taking Colesevelam HCl 625 MG 3 tablets with meals Orally Once a day Not-Taking Ocuvite Adult Formula - 1 tab Orally Daily Not-Taking PreserVision AREDS - as directed Orally Once a day BID Not-Taking Valtrex 1 GM 1 tablet Orally three times a day for 7 days June, Not-Taking NovoLOG FlexPen 100 UNIT/ML 1 dose Subcutaneous before meals per sliding scale Active Clotrimazole-Betamethasone 1-0.05 % 1 application Exte rnally Twice a day to areas on legs and feet with rash Not-Taking Ascorbic Acid 500 MG 1 tablet Orally Once a day Vit C Not-Taking Ferrous Gluconate 324 (38 Fe) MG TAKE ONE TABLET BY [facility] TWICE A DAY Oral for 90 Not-Taking Glucosamine MSM Complex - 1 tablet with meals Orally BID Active Prevagen 10 MG as directed Orally Once a day Active Insulin Aspart FlexPen 100 UNIT/ML INJECT PER SLIDING SCALE THREE TIMES A DAY MAX OF 50 UNITS PER DAY Subcutaneous Not-Taking Allopurinol 100 MG 1 tablet Orally Once a day for 90 day(s) Active Centrum Adults 1 1 tablet Orally Daily Active Vitamin C 1000 MG 1 tablet Orally Once a day for 30 day(s) Active ProAir HFA 108 (90 Base) mcg/act 2 puffs as needed Inh alation qid prn for 90 day(s) Active Spironolactone 25 mg 1 tab Orally bid Not-Taking Test Strips - as directed three times daily for 90 day s ICD10 E11.9, dispense compatible w/ glucometer (requesting freestyle lite if covered); Insulin user Feb, Active Pen Gunter 32G X 4 MM as directed six times daily for 90 da y(s) premier value ICD-10: E11.9 Apr, Not-Taking Pantoprazole Sodium 40 MG 1 tablet Orally Once a day for 30 day( s) May, Not-Taking Doxycycline Monohydrate 100 MG 1 capsule Orally Twice a day for 10 day(s) Oct, Active Glucometer as directed as directed for 99 days ICD1 0 E11.9, requesting freestyle lite if covered by insurance Feb, Not-Taking PreserVision AREDS - 1 cap Orally BID Active Colesevelam HCl 625 MG 3 tablets with meals Orally Twice a d ay for 90 day(s) [facility] Feb, Not-Taking Midodrine HCl 10 MG 1 tablet Orally Three times a day Active Cipro 500 MG 1 tablet Orally at night Active Eliquis 2.5 MG 1 tab Oral bid Active Vitamin D 50 MCG (1999) 1 capsule Orally Once a day Active Levemir FlexTouch 100 UNIT/ML 10 Units Subcutaneous BID Active Protonix 40 MG 1 tablet Orally Once a day Active Levothyroxine Sodium 175 MCG 1 tablet in the morning o n an empty stomach Oral Daily for 90 days Active Welchol 625 MG 3 tablets with meals Orally Twice a day Active Pantoprazole Sodium 40 MG 1 tablet Oral Once a day for 90 day(s) Active PROCEDURES No Information RESULTS No Results REASON FOR VISIT GI discussion MEDICAL (GENERAL) HISTORY Type Description Date Medical History COPD Medical History sleep apnea Medical History septic arthritis of the knee culture positive for Pseudomonas and MRSA Medical History Ybarra's esophagus Medical History congestive heart failure diastolic dysfu nction Medical History recurrent MRSA abscess Medical History MRSA colonization Medical History diabetes Medical History atrial fib Medical History hypothyroidism Medical History Herpes simplex Medical History Episode of spontaneous bacterial periton itis Medical History Lesion in the bladder on CT without IV c ontrast Medical History Past smoker Surgical History I&D of thigh abscess 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 Surgical History pacemaker Surgical History retina surgery right eye 04/2015 Surgical History esophageal varices 03/2019 Surgical History EGD 04/2020, 07/2020 Hospitalization History confusion, elevated blood sugar abov e 700 09/2012 Hospitalization History fluid retention 10/2012 Hospitalization History [facility], Pneumonia 05/17/14- 05/24/14 Hospitalization History [facility], Gout 06/11/14-06/22/14 Hospitalization History fall from shower 04/2016 Hospitalization History [facility] - abn/labs 03/2019 Hospitalization History Low Hemoglobin - [facility] 05/05/20-05/16/20 Hospitalization History Spontaneous Bacterial Peratinitis -10/05/2020 Hospitalization History Acute On Chronic Renal Failure 11/28-12/08/2020 Goals Section No Information Health Concerns No Information MEDICAL EQUIPMENT No Information MENTAL STATUS No Information FUNCTIONAL STATUS No Information ASSESSMENTS No Information PLAN OF TREATMENT Medication Medication Name Sig Start Date Stop Date Pantoprazole Sodium 40 MG 1 tablet Oral Once a day for 90 day(s) Next Appt Details Provider Name:Dontae Eugene Dinhkwanestuardo, 2020-12-27 3 08:00:00 AM, [id number], , [place], [address], Provider Name:China Bejarano, 10:00:00 AM, [address], , [place], [address], Insurance Providers Payer Name Payer Address Payer Phone Insured Name Patient Relati onship to Insured Coverage Start Date Coverage End Date MEDICARE Part A and B [address] [facility] [id number] [phone] MALLORIE MOYA [facility] [address] [facility] [id number] MALLORIE ALVAREZ self
--- OUTSIDE RECORDS SUMMARY | 2020-12-27 09:55 | CCD ---
Author Author [facility] Organization [facility] Address Unknown Phone Unavailable Care Team Providers Care Director Physical Therapy Name Role Phone China Bejarano Unavailable PROBLEMS Type Condition ICD9-CM Code [id number] Code Onset Dates Condition S tatus W/U Status Risk SNOMED Code Notes Problem Chronic obstructive pulmonary disease, unspecified COPD ty pe J44.9 Active confirmed 25494149 Problem Chronic diastolic heart failure I50.32 Active confi rmed 649292850 Problem Atrial fibrillation, unspecified type I48.91 Ac tive confirmed 94559437 Problem Type 2 diabetes mellitus without complications E11 .9 Active confirmed 027015345 Problem Acquired hypothyroidism E03.9 Active confirmed 022302900 Problem Ybarra's esophagus with low grade dysplasia K22.7 10 Active confirmed [id number] Problem Idiopathic esophageal varices with bleeding I85.01 Active confirmed 46998810 Problem 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 Active confirmed 389162470137423 Problem Unspecified cirrhosis of liver K74.60 Active confir med 433034367 Problem Secondary esophageal varices with bleeding I85.11 Active confirmed 02911456 Problem Lesion of bladder N32.9 Active confirmed 30 9795561 Problem Venous stasis dermatitis of both lower extremities I87.2 Active confirmed 72298380 Problem Hydrocele N43.3 Active confirmed 428196091 Problem Atrophic kidney N26.1 Active confirmed 1975 66212 Problem Idiopathic chronic gout of foot without tophus, 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 Active confirmed 75181088 Problem Psoriasis L40.9 Active confirmed 0288869 Problem Varicocele I86.1 Active confirmed 97570270 Problem GALAVIZ (nonalcoholic steatohepatitis) K75.81 Acti ve confirmed 953636352 Problem Gastroesophageal reflux dise ase, unspecified whether esophagitis present K21.9 Active confirmed 010977228 Problem Bladder wall thickening N32.89 Active confirmed 202522216 Problem Chronic kidney disease, unspecified CKD stage N18. 9 Active confirmed 185523129 ALLERGIES Allergen (clinical drug ingredient) Drug/Non Drug Allergy do cumented on EMR Reaction Allergy Type Onset Date Status atorvastatin Lipitor(NDC Code:[address]-43) elevated LFT's Drug Doug rgy Active ciprofloxacin Cipro(NDC Code:[address]-55) Nausea/Vomiting Drug Doug rgy Active valsartan Diovan(ND Code:[address]-00) Unknown Drug Allergy Active Quinolones Quinolones Rash Drug Allergy Active bumetanide Bumex(ND Code:[address]-58) Unknown Drug Allergy Active ENCOUNTERS from 1945 to 2020-12-20 Encounter Location Date Provider Diagnosis [facility] [address] [facility] [phone] [place] [address] Nov, China Bejarano IMMUNIZATIONS Vaccine Route Administration Date Status Pneumococcal Adult 0.5mL Pneumovax 23 IM Intramuscular September 13, 2020 Administered SOCIAL HISTORY Tobacco Use: Social History Observation Description Date Details (start date - stop date) Former Smoker Sex Assigned At : Social History Observation Description Sex Assigned At Unknown Education: Question Answer Notes Level of Education: High School Language: Question Answer Notes Languages spoken: Albanian Shinto: Question Answer Notes Shinto 13 Mandaen Sexual Hx: Question Answer Notes Had sex [...] (38 Fe) MG TAKE ONE TABLET BY [facility] TWICE A DAY Oral for 90 Not-Taking [...] if covered); Insulin user Feb, Active Pen [place] 32G X 4 MM as directed six [...] Information RESULTS No Results REASON FOR VISIT pantoprazole refill MEDICAL (GENERAL) HISTORY Type Description Date Medical [...] Hospitalization History fluid retention 10/2012 Hospitalization History [facility], Pneumonia 05/17/14- 05/24/14 Hospitalization History [facility], Gout 06/11/14-06/22/14 Hospitalization History fall from shower 04/2016 Hospitalization History Jael - abn/labs 03/2019 Hospitalization History Low Hemoglobin - [facility] 05/05/20-05/16/20 Hospitalization History Spontaneous Bacterial Peratinitis -10/05/2020 [...] 90 day(s) Next Appt Details Provider Name:Dontae Mcdaniel, 2020-12-27 3 08:00:00 AM, [address], , [place], [address], Provider Name:China Bejarano, 10:00:00 AM, [address], , [place], [address], Insurance Providers Payer Name Payer Address Payer Phone Insured Name Patient Relati onship to Insured Coverage Start Date Coverage End Date MEDICARE Part A and B [address] [facility] [address] [phone] [place] MOYA [facility] [address] [facility] [id number] [place] MARK self
--- OUTSIDE RECORDS SUMMARY | 2020-12-27 09:55 | CCD ---
Author Author [facility] Organization [facility] Address Unknown Phone Unavailable Care Team Providers Care Manager Banking Name Role Phone China Bejarano Unavailable PROBLEMS Type Condition ICD9-CM Code [id number] Code Onset Dates Condition S tatus W/U Status Risk SNOMED Code Notes Problem Chronic obstructive pulmonary disease, unspecified COPD ty pe J44.9 Active confirmed 09199528 Problem Chronic diastolic heart failure I50.32 Active confi rmed 423297747 Problem Atrial fibrillation, unspecified type I48.91 Ac tive confirmed 71375616 Problem Type 2 diabetes mellitus without complications E11 .9 Active confirmed 657745811 Problem Acquired hypothyroidism E03.9 Active confirmed 926567723 Problem Ybarra's esophagus with low grade dysplasia K22.7 10 Active confirmed 8330525451244230 Problem Idiopathic esophageal varices with bleeding I85.01 Active confirmed 80845037 Problem 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 Active confirmed 638596525990112 Problem Unspecified cirrhosis of liver K74.60 Active confir med 453856816 Problem Secondary esophageal varices with bleeding I85.11 Active confirmed 89678237 Problem Lesion of bladder N32.9 Active confirmed 30 2139176 Problem Venous stasis dermatitis of both lower extremities I87.2 Active confirmed 37041912 Problem Hydrocele N43.3 Active confirmed 567985853 Problem Atrophic kidney N26.1 Active confirmed 1975 39063 Problem Idiopathic chronic gout of foot without tophus, 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 Active confirmed 99897142 Problem Psoriasis L40.9 Active confirmed 1461340 Problem Varicocele I86.1 Active confirmed 55969961 Problem GALAVIZ (nonalcoholic steatohepatitis) K75.81 Acti ve confirmed 448914992 Problem Gastroesophageal reflux dise ase, unspecified whether esophagitis present K21.9 Active confirmed 285097276 Problem Bladder wall thickening N32.89 Active confirmed 139152774 Problem Chronic kidney disease, unspecified CKD stage N18. 9 Active confirmed 611632799 ALLERGIES Allergen (clinical drug ingredient) Drug/Non Drug Allergy do cumented on EMR Reaction Allergy Type Onset Date Status atorvastatin Lipitor(NDC Code:[address]-77) elevated LFT's Drug Doug rgy Active ciprofloxacin Cipro(NDC Code:[address]-63) Nausea/Vomiting Drug Doug rgy Active valsartan Diovan(NDC Code:[address]-99) Unknown Drug Allergy Active Quinolones Quinolones Rash Drug Allergy Active bumetanide Bumex(NDC Code:[address]-34) Unknown Drug Allergy Active ENCOUNTERS from 1945 to 2020-12-20 Encounter Location Date Provider Diagnosis [facility] [address] [facility] [phone] [place] [address] Nov, [facility] discharge follow-up Z09 ; Unspecified cirrhosis of liver K74.60 and Chronic kidney disease, unspecified CKD stage N18.9 IMMUNIZATIONS Vaccine Route Administration Date Status Pneumococcal Adult 0.5mL Pneumovax 23 IM Intramuscular September 13, 2020 Administered SOCIAL HISTORY Tobacco Use: Social History Observation Description Date Details (start date - stop date) Former Smoker Sex Assigned At : Social History Observation Description Sex Assigned At Unknown Education: Question Answer Notes Level of Education: High School Language: Question Answer Notes Languages spoken: Israeli Mormonism: Question Answer Notes Mormonism 13 Jainism Sexual Hx: Question Answer Notes Had sex [...] REASON FOR REFERRAL No Information VITAL SIGNS Weight 236.0 lbs Nov, Weight-kg 107.05 kg Nov, Height 72 in Nov, BMI 32.00 kg/m2 Nov, Heart Rate 89 /min Nov, Respiratory Rate 18 /min Nov, Temperature 97.1 degrees Fahrenheit Nov, Oximetry 95 Nov, Blood pressure systolic 105 mm Hg Nov, Blood pressure diastolic 43 mm Hg Nov, MEDICATIONS Medication SIG (Take, Route, Frequency, Duration) [...] (38 Fe) MG TAKE ONE TABLET BY [facility] TWICE A DAY Oral for 90 [...] if covered); Insulin user Feb, Active Pen [place] 32G X 4 MM as directed six [...] Oral bid Active Vitamin D 50 MCG (1999 [place]) 1 capsule Orally Once a day Active [...] Information RESULTS No Results REASON FOR VISIT [facility] D/C 12/08- RENAL FAILURE [phone] MEDICAL (GENERAL) HISTORY Type Description Date Medical [...] Hospitalization History fluid retention 10/2012 Hospitalization History [facility], Pneumonia 05/17/14- 05/24/14 Hospitalization History [facility], Gout 06/11/14-06/22/14 Hospitalization History fall from shower 04/2016 Hospitalization History [facility] - abn/labs 03/2019 Hospitalization History Low Hemoglobin - [facility] 05/05/20-05/16/20 Hospitalization History Spontaneous Bacterial Peratinitis -10/05/2020 Hospitalization History Acute On Chronic Renal Failure 11/28-12/08/2020 Goals Section No Information Health Concerns No Information MEDICAL EQUIPMENT No Information MENTAL STATUS No Information FUNCTIONAL STATUS No Information ASSESSMENTS Encounter Date Diagnosis Assessment Notes Treatment Notes Treatm ent Clinical Notes Nov, Unspecified cirrhosis of liver (ICD-10 - K74.60) see notes above Nov, Hospital discharge follow-up (ICD-10 - Z09) Unfortunately started on HD w/ nephrology, continue as directed. He is following up w/ Dr. Norton in regards to ascites, suspect will require paracentesis, however not holding albumin levels. Concern for urology procedure given current status. WIll contact urology to determine goal of procedure and necessity. Will also contact GI to discuss prognosis if needed after urology consult. ED w/ new/changing/worsening sxs. Continue to follow sodium/fluid restrictions per cardiology and daily weights. Contact cardiology as directed. Nov, Chronic kidney disease, unspecified CKD stage (I CD-10 - N18.9) see notes above PLAN OF TREATMENT Medication Medication Name Sig Start Date Stop Date Pantoprazole Sodium 40 MG 1 tablet Oral Once a day for 90 day(s) Treatment Notes Assessment Notes Clinical Notes Unspecified cirrhosis of liver see notes above Hospital discharge follow-up Unfortunate ly started on HD w/ nephrology, continue as directed. He is following up w/ Dr. Norton in regards to ascites, suspect will require paracentesis, however not holding albumin levels. Concern for urology procedure given current status. WIll contact urology to determine goal of procedure and necessity. Will also contact GI to discuss prognosis if needed after urology consult. ED w/ new/changing/worsening sxs. Continue to follow sodium/fluid restrictions per cardiology and daily weights. Contact cardiology as directed. Chronic kidney disease, unspecified CKD stage see notes above Next Appt Details per reg FU schedule Reason: Provider Name:Dontae Mcdaniel, 2020-12-27 3 08:00:00 AM, [address], , [place], [address], Provider Name:China Bejarano, 10:00:00 AM, [address] [facility], , [place], [address], Insurance Providers Payer Name Payer Address Payer Phone Insured Name Patient Relati onship to Insured Coverage Start Date Coverage End Date [facility] [address] [facility] [id number] MALLORIE ALVAREZ MEDICARE Part A and B [address] [facility] [phone] M[place]IE MOYA self
--- OUTSIDE RECORDS SUMMARY | 2020-12-27 09:55 | CCD | Continuity of Care Document ---
Author Author Leland DURÁN MD Organization Unknown Address [address] [place] [address], [place] [address] Phone [phone] Care Team Providers Care Motorman/Woman Name Role Phone Yunior Chin MD AUTM [phone] Dania ErazoC AUTM [phone] Hilda Jensen AUTM [phone] Dell Dawkins DO AUTM [phone] Dontae Patricio DPMaulik AUTM [phone] Mery Bowser MD AUTM [phone] Dell Tom MD AUTM [phone] China BejaranoP AUTM [phone] Nelida Sylvester MD AUTM [phone] Balaji Rodriguez MD AUTM [phone] Problems Active Problems Provider Date Chronic diastolic heart failure SHALONDA Fitzgerald-C Onset: 07/22/2012 Benign hypertensive heart disease with congestive card iac failure Dania Erazo PA-C Onset: 07/22/2012 Chronic atrial fibrillation SHALONDA Fitzgerald-C Onset: 02/26 Electrocardiogram abnormal SHALONDA Fitzgerald-C Onset: 01/17 Left bundle branch block Dania Erazo PA-C Onset: 011 Mitral valve disorder SHALONDA Fitzgerald-C Onset: 03/16/2015 Hyperlipidemia SHALONDA Fitzgerald-C Onset: 01/17/2011 Obesity Dania Erazo PA-C 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 Dania Erazo PA-C Onset: 01/08/2012 Cardiac pacemaker in situ Dania Erazo PA-C Onset: 2011 Obstructive sleep apnea syndrome Dania Erazo PA-C Onset: 01/17/2011 Mixed hyperlipidemia Dania Erazo PA-C Onset: 05/17/2017 Dietary management surveillance Dania Erazo PA-C Onset: 05/17/2017 Chronic pulmonary heart disease Dania Erazo PA-C Onset: 08/12/2018 Permanent atrial fibrillation Dania Erazo PA-C Onset: Social History Type Date Description Comments Sex Unknown Tobacco Use Start: Unknown End: Unknown Former Cigarette Smo ker 2 Packs Daily hx of 45yrs 01/02 ETOH Use Does not consume alcohol Tobacco Use Start: Unknown End: Unknown Patient is a former smoker up to 3ppd, from age 13, quit 2007 Smoking Status Reviewed: 10/12/20 Patient is a former smoker up to 3ppd, from age 13, quit 2007 Exercise Type/Frequency Bikes daily 10-15 mi nutes at a time on stationary bike Exercise Type/Frequency Walks sporadically Exercise Type/Frequency Does housework twice a w [place] Exercise Limitations Back Pain Exercise Limitations Joint Pain Exercise Limitations Joint Swelling Exercise Limitations Orthopedic Problem Allergies and adverse reactions Active Allergies Criticality Reaction | Severity Comments Date Lipitor Unable to assess criticality Elevated LFT's elevated L FTs 03/14/2010 Quinolones Unable to assess criticality Rash rash 01/07/2012 Diovan Unable to assess criticality Dizziness and weakn ess dizziness and weakness 10/22/2013 Bumex Unable to assess criticality Caused sever e Gout and depression 09/04/2018 Inactive Allergies NKDA Unable to assess criticality 05/22/2006 Medications Active Medications SIG Qnty Indications Ordering Provide r Date Doxycycline Hyclate 100mg Capsules 1 cap PO for 10 Days Unknown 11/09/2020 Spironolactone 25mg Tablets 1 by mouth every day Unknown 10/11/2020 Vitamin C 500mg Capsules ever y day Unknown 10/11/2020 Midodrine HCL 5mg Tablets 1 tablet by mouth three times a day Unknown 08/16/20 21 Torsemide 100mg Tablets 1/2 by mouth twice a day hold for SBP < 90 Dontae Wyman MD 07/[address] 1 po daily China Bejarano FNP 05/18/2020 Prevagen Extra Strength 20mg Capsu les 1 po daily Unknown 12/23/2019 Ocuvite Adult 50+ Capsules 1 po daily Unknown 12/23/2019 Clotrimazole 1% Cream apply twice daily to affected area as directed Unknown 2019 Novolog Flexpen 100U nit/ML Solution Pen-Inject sliding scale three times a day Unknown 04/22/2019 Eliquis 2.5mg Tablets 1 by mouth twice a day 180tabs Dontae Wyman MD 01/02/2019 Multi Vitamin Daily Tablets once daily Unknown 09/03/2018 Proair HFA 108(90Base) mcg/Act Aer osol 2 puffs by mouth as needed Unknown 019 Levothyroxine Sodium 175mcg Tablet s 1 by mouth every day Destin Thomas RPA-C 02/25 Vitamin D 2000Unit Tablets 1 po daily Rohan Santana FNP 07/04/2011 Levemir Flexpen 100Unit/ML Solutio n as directed by PCP Rohan Santana FNP 01/17/2011 Glucosamine Chondroitin 1500 Complex 1500Com Capsules 1 po qd Rohan Santana FNP 2010 Welchol 625mg Tablets 6 po da mora Rohan Santana FNP 03/14/2010 Allopurinol 100mg Tablets 1 by mouth every day Dontae Patricio DPM Immunizations Description No Information Available Vital Signs Date Vital Result Comment 10/12/2020 12:44pm Weight 234.00 lb Home Weight 233lb Height 74 inches 6'2" BMI (Body Mass Index) 30.0 kg/m2 Heart Rate 72 /min Irregular Respiratory Rate 16 /min BP Systolic Right Arm 102 mmHg sitting, regular c uff BP Diastolic Right Arm 50 mmHg sitting, regular cuff 07/11/2020 12:42pm Weight 244.00 lb Home Weight 241lb Height 74 inches 6'2" BMI (Body Mass Index) 31.3 kg/m2 Heart Rate 76 /min 106Irregular Respiratory Rate 16 /min BP Systolic Right Arm 106 mmHg sitting, regular c uff BP Diastolic Right Arm 60 mmHg sitting, regular cuff Results Test Acquired Date Facility Test Result H/L Range Note Renal Profile 10/27/2020 [facility] ([facility])- - Glucose 152 High 70-106 Blood Urea Nitrogen 68.8 High 7-18 Creatinine 2.0 High 0.55-1.3 GFR (Calculated) 33 Sodium 140.3 135-145 Potassium 3.79 3.5-5.5 Chloride 111.5 High 94-110 Carbon Dioxide 21.1 21-32 Calcium 8.4 Low 8.5-10.1 Phosphorus 4.3 Albumin 3.4 3.2-5.2 CBC without Differential 10/27/2020 [facility] ([facility])- - White Blood Count 8.6 5.0-10.0 Red Blood Count 4.02 Low 4.70-6.10 Platelets 238 172-450 Hemoglobin 10.5 Low 14.0-18.0 Hematocrit 34.2 Low 42.0-52.0 CBC without Differential 10/05/2020 [facility] - not inter faced (315)- - White Blood Count 7.2 5.0-10.0 Red Blood Count 3.87 Low 4.00-5.40 Platelets 172 172-450 Hemoglobin 9.1 Hematocrit 32.4 CMP 10/05/2020 [facility] - not interfaced (315)- - Albumin Serum/Plasma 2.8 Alt - SGPT 14 Calcium Ser/Plasma Mass/Vol 7.8 Carbon Dioxide Ser/Plasm 20 Chloride Serum/Plasma 111 Alkaline Phosphatase 169 Potassium 4.3 Protein Total 4.6 Sodium 138 Ast - Sgot 12 BUN - Urea Nitrogen 78 Glucose 111 High 83-110 Creatinine For GFR 2.32 CMP 09/05/2020 [facility] (315)- - Albumin Serum/Plasma 3.4 Alt - SGPT 17 Calcium Ser/Plasma Mass/Vol 8.8 Carbon Dioxide Ser/Plasm 27.0 Chloride Serum/Plasma 107.9 Alkaline Phosphatase 230 Potassium 4.31 Protein Total 5.5 Sodium 139.5 Ast - Sgot 30 BUN - Urea Nitrogen 43.4 Glucose 128 High 70-106 Creatinine For GFR 1.8 CBC without Differential 09/05/2020 Patient's [facility] e (315)- - White Blood Count 8.7 5.0-10.0 Red Blood Count 4.00 Low 4.70-6.10 Platelets 223 172-450 Hemoglobin 9.3 Low 14.0-18.0 Hematocrit 30.3 Low 42.0-52.0 Procedures Date Code Description Status 11/15/2020 30044 Complex Chronic Care MGMT Servic e Ea Addl 30 Min Completed 11/15/2020 27266 Complex Chronic Care Management SVC 1St 60 Min Completed 10/12/2020 31031 Office/Outpatient Established Lo w MDM 20-29 Min Completed 09/21/2020 09447 Complex Chronic Care MGMT Servic e Ea Addl 30 Min Completed 09/21/2020 36216 Complex Chronic Care Management SVC 1St 60 Min Completed 08/18/2020 23948 Chronic Care MGMT 20 Mins Clinical Staff Time Per Calendar Month Completed 08/18/2020 12673 Chronic Care Management Services Ea Addl 20 Min Completed 07/11/2020 13790 Office/Outpatient Established SF MDM 10-19 Min Completed 07/06/2020 57852 Chronic Care MGMT 20 Mins Clinical Staff Time Per Calendar Month Completed 07/06/2020 15063 Chronic Care Management Services Ea Addl 20 Min Completed Medical Devices Description No Information Available Encounters Type Date Location Provider Dx Diagnosis Office Visit 11/15/2020 8:01a Main Office Dell Durán MD I50.3 2 Chronic diastolic (congestive) heart failure E78.2 Mixed hyperlipidemia Office Visit 10/12/2020 12:45p Main Office Dania Erazo PA-C I50.3 2 Chronic diastolic (congestive) heart failure Office Visit 09/21/2020 11:00a Main Office Dell Durán MD I11.0 Hypertensive heart disease with heart failure I48.21 Permanent atrial fibrillatio n Office Visit 08/18/2020 9:33a Main Office Dell Durán MD I50.3 2 Chronic diastolic (congestive) heart failure I11.0 Hypertensive heart disease w [facility] heart failure Office Visit 07/11/2020 12:45p Main Office Dania Earzo PA-C I50.3 2 Chronic diastolic (congestive) heart failure Office Visit 07/06/2020 3:27p Main Office Dell Durán MD I50.3 2 Chronic diastolic (congestive) heart failure I11.0 Hypertensive heart disease w [facility] heart failure Assessments Date Code Description Provider 11/15/2020 I50.32 Chronic diastolic (congestive) h eart failure Dell Durán MD 11/15/2020 E78.2 Mixed hyperlipidemia Dell kimball MD 10/12/2020 I50.32 Chronic diastolic (congestive) h eart failure Dania Erazo PA-C 09/21/2020 I11.0 Hypertensive heart disease with heart failure Dlel Durán MD 09/21/2020 I48.21 Permanent atrial fibrillation Da alonzo Durán MD 08/18/2020 I50.32 Chronic diastolic (congestive) h eart failure Dell Durán MD 08/18/2020 I11.0 Hypertensive heart disease with heart failure Dell Durán MD 07/11/2020 I50.32 Chronic diastolic (congestive) h eart failure Dania Erazo PA-C 07/06/2020 I50.32 Chronic diastolic (congestive) h eart failure Dell Durán MD 07/06/2020 I11.0 Hypertensive heart disease with heart failure Dell Durán MD Plan of Treatment Future Appointment(s):* 01/12/2021 10:45 am - Dania Erazo PA-C at Main Office * 05/23/2021 11:15 am - Dania Erazo PA-C at Main Office 10/12/2020 - Dania Erazo PA-C* I50.32 Chronic diastolic (congestive) heart failure* Recommendations:* Follow a 2 grams sodium diet and 50 ounces fluid restriction per 24 hour and do daily weights. Call the office for weight gain of 3 lbs or more. * All * Follow up:* 3 month follow up. Functional Status Functional Condition Comment Date Status Independent with all ADL's Activ e Requires assistance with ambulating with cane Active Mental Status Description No Information Available Referrals Description No Information Available
--- OUTSIDE RECORDS SUMMARY | 2020-12-27 09:55 | CCD ---
Author Author [facility] Organization [facility] Address Unknown Phone Unavailable Care Team Providers Care Instructional Technology Coach Name Role Phone China Bejarano Unavailable PROBLEMS Type Condition ICD9-CM Code SBQ87-BI Code Onset Dates Condition S tatus W/U Status Risk SNOMED Code Notes Problem Chronic obstructive pulmonary disease, unspecified COPD ty pe J44.9 Active confirmed 14793937 Problem Chronic diastolic heart failure I50.32 Active confi rmed 553141233 Problem Atrial fibrillation, unspecified type I48.91 Ac tive confirmed 71069162 Problem Type 2 diabetes mellitus without complications E11 .9 Active confirmed 202740536 Problem Acquired hypothyroidism E03.9 Active confirmed 401445051 Problem Ybarra's esophagus with low grade dysplasia K22.7 10 Active confirmed 4864392659410845 Problem Idiopathic esophageal varices with bleeding I85.01 Active confirmed 32855409 Problem 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 Active confirmed 809734411610551 Problem Unspecified cirrhosis of liver K74.60 Active confir med 334544206 Problem Secondary esophageal varices with bleeding I85.11 Active confirmed 71496754 Problem Lesion of bladder N32.9 Active confirmed 30 9558957 Problem Venous stasis dermatitis of both lower extremities I87.2 Active confirmed 83201509 Problem Hydrocele N43.3 Active confirmed 743779176 Problem Atrophic kidney N26.1 Active confirmed 1975 20798 Problem Idiopathic chronic gout of foot without tophus, 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 Active confirmed 12960298 Problem Psoriasis L40.9 Active confirmed 9898461 Problem Varicocele I86.1 Active confirmed 09293672 Problem AGLAVIZ (nonalcoholic steatohepatitis) K75.81 Acti ve confirmed 079243302 Problem Gastroesophageal reflux dise ase, unspecified whether esophagitis present K21.9 Active confirmed 537025023 Problem Bladder wall thickening N32.89 Active confirmed 814850021 Problem Chronic kidney disease, unspecified CKD stage N18. 9 Active confirmed 098031335 ALLERGIES Allergen (clinical drug ingredient) Drug/Non Drug Allergy do cumented on EMR Reaction Allergy Type Onset Date Status atorvastatin Lipitor(NDC Code:[address]-42) elevated LFT's Drug Doug rgy Active ciprofloxacin Cipro(NDC Code:[address]-68) Nausea/Vomiting Drug Doug rgy Active valsartan Diovan(ND Code:[address]-76) Unknown Drug Allergy Active Quinolones Quinolones Rash Drug Allergy Active bumetanide Bumex(ND Code:[address]-81) Unknown Drug Allergy Active ENCOUNTERS from 1945 to 2020-12-14 Encounter Location Date Provider Diagnosis [facility] [address] [facility] [phone] [place] [address] Nov, China Bejarano IMMUNIZATIONS Vaccine Route Administration [...] School Language: Question Answer Notes Languages spoken: Upper Sorbian Anabaptism: Question Answer Notes Anabaptism 13 Nondenominational Sexual Hx: Question Answer Notes Had sex [...] Notes Start Da te End Date Status Ferrous Gluconate 324 (38 Fe) MG TAKE ONE TABLET BY [facility] TWICE A DAY Oral for 90 Not-Taking Glucosamine MSM Complex - 1 tablet with meals Orally BID Active Prevagen 10 MG as directed Orally Once a day Active Torsemide 100 MG 1/2 tablet Orally bid Active Omeprazole 40 mg 1 capsule Orally daily Not-Taking Colesevelam HCl 625 MG 3 tablets with meals Orally Once a day Not-Taking Allopurinol 100 MG 1 tablet Orally Once a day for 90 day(s) Active Centrum Adults 1 1 tablet Orally Daily Active Pantoprazole Sodium 40 MG 1 tablet Oral Once a day for 90 day(s) Not-Taking NovoLOG FlexPen 100 UNIT/ML 1 dose Subcutaneous before meals per sliding scale Active Clotrimazole-Betamethasone 1-0.05 % 1 application Exte rnally Twice a day to areas on legs and feet with rash Not-Taking Ascorbic Acid 500 MG 1 tablet Orally Once a day Vit C Not-Taking Vitamin C 1000 MG 1 tablet Orally Once a day for 30 day(s) Active PreserVision AREDS - 1 cap Orally BID Active Insulin Aspart FlexPen 100 UNIT/ML INJECT PER SLIDING SCALE THREE TIMES A DAY MAX OF 50 UNITS PER DAY Subcutaneous Not-Taking Midodrine HCl 10 MG 1 tablet Orally Three times a day Active Glucometer as directed as directed for 99 days ICD1 0 E11.9, requesting freestyle lite if covered by insurance Feb, Not-Taking ProAir HFA 108 (90 Base) mcg/act 2 puffs as needed Inh alation qid prn for 90 day(s) Active Cipro 500 MG 1 tablet Orally at night Active Eliquis 2.5 MG 1 tab Oral bid Active Colesevelam HCl 625 MG 3 tablets with meals Orally Twice a d ay for 90 day(s) Wellcall Feb, Not-Taking Vitamin D 50 MCG (1999 UT) 1 capsule Orally Once a day Active Pen Clayton 32G X 4 MM as directed six times daily for 90 da y(s) premier value ICD-10: E11.9 Apr, Not-Taking Pantoprazole Sodium 40 MG 1 tablet Orally Once a day for 30 day( s) May, Not-Taking PreserVision AREDS - as directed Orally Once a day BID Not-Taking Valtrex 1 GM 1 tablet Orally three times a day for 7 days June, Not-Taking Doxycycline Monohydrate 100 MG 1 capsule Orally Twice a day for 10 day(s) Oct, Active Ocuvite Adult Formula - 1 tab Orally Daily Not-Taking Spironolactone 25 mg 1 tab Orally bid Not-Taking Test Strips - as directed three times daily for 90 day s ICD10 E11.9, dispense compatible w/ glucometer (requesting freestyle lite if covered); Insulin user Feb, Active Levothyroxine Sodium 175 MCG 1 tablet in the morning o n an empty stomach Oral Daily for 90 days Active Levemir FlexTouch 100 UNIT/ML 10 Units Subcutaneous BID Active Protonix 40 MG 1 tablet Orally Once a day Active Welchol 625 MG 3 tablets with meals Orally Twice a day Active PROCEDURES No Information RESULTS No Results REASON FOR VISIT pre op 12/14 MEDICAL (GENERAL) HISTORY Type Description Date Medical [...] Hospitalization History fluid retention 10/2012 Hospitalization History [facility], Pneumonia 05/17/14- 05/24/14 Hospitalization History [facility], Gout 06/11/14-06/22/14 Hospitalization History fall from shower 04/2016 Hospitalization History Jael - abn/labs 03/2019 Hospitalization History Low Hemoglobin - [facility] 05/05/20-05/16/20 Hospitalization History Spontaneous Bacterial Peratinitis -10/05/2020 Hospitalization History Acute On Chronic Renal Failure 11/28-12/08/2020 Goals Section No Information Health Concerns No Information MEDICAL EQUIPMENT No Information MENTAL STATUS No Information FUNCTIONAL STATUS No Information ASSESSMENTS No Information PLAN OF TREATMENT Next Appt Details Provider Name:Dontae Eugene Jonas, 2020-12-27 3 08:00:00 AM, [address], , [place], [address], Provider Name:China Bejarano, 10:00:00 AM, [address], , [place], [address], Insurance Providers Payer Name Payer Address Payer Phone Insured Name Patient Relati onship to Insured Coverage Start Date Coverage End Date MEDICARE Part A and B [address] [facility] [id number] [place] [facility] [address] [facility] [id number] [place]IE ALVAREZ self
--- OUTSIDE RECORDS SUMMARY | 2020-12-27 09:55 | CCD | Continuity of Care Document ---
Author Author Leland DURÁN MD Organization Unknown Address [address] [place] [address], [place] [address] Phone [phone] Care Team Providers Care Glass Rolling Machine Operator Name Role Phone Yunior Chin MD AUTM [phone] Dania ErazoC AUTM [phone] Hilda Jensen AUTM [phone] Dell Dawkins DO AUTM [phone] Dontae Patricio DPMaulik AUTM [phone] Mery Bowser MD AUTM [phone] Dell Tom MD AUTM [phone] China BejaranoP AUTM [phone] Nelida Sylvester MD AUTM [phone] Balaji Rodriguez MD AUTM [phone] Problems Active Problems Provider Date Chronic diastolic [...] Exercise Type/Frequency Does housework twice a w [place] Exercise Limitations Back Pain Exercise Limitations Joint [...] 34.2 Low 42.0-52.0 CBC without Differential 10/05/2020 [facility] - not inter faced (315)- - White Blood Count 7.2 5.0-10.0 Red Blood Count 3.87 Low 4.00-5.40 Platelets 172 172-450 Hemoglobin 9.1 Hematocrit 32.4 CMP 10/05/2020 [facility] - not interfaced (315)- - Albumin Serum/Plasma [...] GFR 1.8 CBC without Differential 09/05/2020 Patient[facility] e (315)- - White Blood Count 8.7 5.0-10.0 Red Blood Count 4.00 Low 4.70-6.10 Platelets 223 172-450 Hemoglobin 9.3 Low 14.0-18.0 Hematocrit 30.3 Low 42.0-52.0 Procedures Date Code Description Status 11/15/2020 38632 Complex Chronic Care MGMT Servic e Ea Addl 30 Min Completed 11/15/2020 02514 Complex Chronic Care Management SVC 1St 60 Min Completed 10/12/2020 65994 Office/Outpatient Established Lo w MDM 20-29 Min Completed 09/21/2020 97308 Complex Chronic Care MGMT Servic e Ea Addl 30 Min Completed 09/21/2020 54794 Complex Chronic Care Management SVC 1St 60 Min Completed 08/18/2020 36206 Chronic Care MGMT 20 Mins Clinical Staff Time Per Calendar Month Completed 08/18/2020 76240 Chronic Care Management Services Ea Addl 20 Min Completed 07/11/2020 06475 Office/Outpatient Established SF MDM 10-19 Min Completed 07/06/2020 26654 Chronic Care MGMT 20 Mins Clinical Staff Time Per Calendar Month Completed 07/06/2020 21714 Chronic Care Management Services Ea Addl 20 [...] heart failure I11.0 Hypertensive heart disease w [facility] heart failure Office Visit 07/11/2020 12:45p Main Office Dania Erazo PA-C I50.3 2 Chronic diastolic (congestive) heart failure Office Visit 07/06/2020 3:27p Main Office Dell Durán MD I50.3 2 Chronic diastolic (congestive) heart failure I11.0 Hypertensive heart disease w [facility] heart failure Assessments Date Code Description Provider 11/15/2020 I50.32 Chronic diastolic (congestive) h eart failure Dell Durán MD 11/15/2020 E78.2 Mixed hyperlipidemia Dell kimball MD 10/12/2020 I50.32 Chronic diastolic (congestive) h eart failure Dania Erazo PA-C 09/21/2020 I11.0 Hypertensive heart disease with heart failure Dell Durán MD 09/21/2020 I48.21 Permanent atrial fibrillation [...]
--- OUTSIDE RECORDS SUMMARY | 2020-12-27 09:56 | CCD | Continuity of Care Document ---
Author Organization Unknown Address Unknown Phone Unavailable Care Team Providers Care Rope Maker Name Role Phone Yunior Chin MD AUTM [phone] Dania Erazo PA-C AUTM [phone] Hilda Jensen AUTM [phone] Dell Dawkins DO AUTM [phone] Dontae Patricio DP AUTM [phone] Mery Bowser MD AUTM [phone] Dell Tom MD AUTM [phone] China BejaranoP AUTM [phone] Nelida Sylvester MD AUTM [phone] Balaji Rodriguez MD AUTM [phone] Problems Active Problems Provider Date Chronic diastolic heart failure Dania Erazo, PA-C Onset: 07/22/2012 Benign hypertensive heart disease with congestive card iac failure Dania Erazo, PA-C Onset: 07/22/2012 Chronic atrial fibrillation Dania Erazo, PA-C Onset: 02/26 Electrocardiogram abnormal Daniajamal Erazo, PA-C Onset: 01/17 Left bundle branch block Daniajamal Carranzaw, PA-C Onset: 011 Mitral valve disorder Dania Erazo, PA-C Onset: 03/16/2015 Hyperlipidemia Dania Erazo, PA-C Onset: 01/17/2011 Obesity Daniajamal Erazo, PA-C 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 Dania Erazo, PA-C Onset: 01/08/2012 Cardiac pacemaker in situ [...] Exercise Type/Frequency Does housework twice a w [place] Exercise Limitations Back Pain Exercise Limitations Joint Pain Exercise Limitations Joint Swelling Exercise Limitations Orthopedic Problem Allergies, Adverse Reactions, Alerts Active Allergies Criticality Reaction | Severity Comments [...] SIG Qnty Indications Ordering Provide r Date Vitamin C 500mg Capsules ever y day Unknown 10/11/2020 Spironolactone 25mg Tablets 1 by mouth every day Unknown 10/11/2020 Midodrine HCL 5mg Tablets 1 tablet by mouth three times a day Unknown 10/11/19 21 Torsemide 100mg Tablets 1/2 by mouth [...] Tablets 1 by mouth every day Dontae Patricio, ANNE History Medications Midodrine HCL 5mg Tablets 1 P O q8h Balaji Rodriguez MD 05/25/2020 - 10/12/2020 Torsemide 100mg Tablets 1/2 by mouth twice a day hold for SBP < 106 Balaji Rodriguez M D 05/18/2020 - 07/10/2020 Spironolactone 25mg Tablets 1 by mouth twice a day, hold for SBP < 106 Glen Rodriguez MD 05/18/2020 - 10/12/2020 Immunizations Description No Information Available Vital Signs [...] Date Facility Test Result H/L Range Note CBC without Differential 10/27/2020 [facility] (315)- - White Blood Count 8.6 5.0-10.0 Red Blood Count 4.02 Low 4.70-6.10 Platelets 238 172-450 Hemoglobin 10.5 Low 14.0-18.0 Hematocrit 34.2 Low 42.0-52.0 Renal Profile 10/27/2020 [facility] (315)- - Glucose 152 High 70-106 Blood Urea Nitrogen 68.8 High 7-18 Creatinine 2.0 High 0.55-1.3 GFR (Calculated) 33 Sodium 140.3 135-145 Potassium 3.79 3.5-5.5 Chloride 111.5 High 94-110 Carbon Dioxide 21.1 21-32 Calcium 8.4 Low 8.5-10.1 Phosphorus 4.3 Albumin 3.4 3.2-5.2 CBC without Differential 10/05/2020 [facility] - not inter faced (315)- - White Blood Count 7.2 5.0-10.0 Red Blood Count 3.87 Low 4.00-5.40 Platelets 172 172-450 Hemoglobin 9.1 Hematocrit 32.4 CMP 10/05/2020 [facility] - not interfaced (315)- - Albumin [...] GFR 1.8 CBC without Differential 09/05/2020 [facility] (315)- - White Blood Count 8.7 5.0-10.0 Red Blood Count 4.00 Low 4.70-6.10 Platelets 223 172-450 Hemoglobin 9.3 Low 14.0-18.0 Hematocrit 30.3 Low 42.0-52.0 Laboratory test finding 05/05/2020 [facility] [phone] Pathology Request For Service (SEE NOTE) 1 Basic Metabolic Profile 05/05/2020 [facility] [phone] Glucose, Fasting 112 mg/dL High 70-100 Blood Urea Nitrogen 55 mg/dL High 7-18 Creatinine For GFR 2.03 mg/dL High 0.70-1.30 Glomerular Filtration Rate 34.3 Low >42 2 Sodium Level 141 mEq/L Normal 136-145 Potassium Serum 4.3 mEq/L Normal 3.5-5.1 Chloride Level 109 mEq/L High 98-107 Carbon Dioxide Level 22 mEq/L Normal 21-32 Anion Gap 10 mEq/L Normal 8-16 Calcium Level 8.4 mg/dL Low 8.8-10.2 Prothrombin Time/Inr 05/05/2020 [facility] enter [phone] Prothrombin Time 15.4 seconds High 12.5-14.3 Inr 1.19 Normal 3 CBC With Differential 05/05/2020 [facility] [phone] White Blood Count 13.1 10 High 4.0-10.0 Red Blood Count 3.67 10 Low 4.30-6.10 Hemoglobin 5.9 g/dL Critical low 13.5-17.5 Hematocrit 24.6 % Low 42.0-52.0 Mean Corpuscular Volume 67.0 fl Low 80.0-96.0 Mean Corpuscular Hemoglobin 16.1 pg Low 27.0-33.0 Mean Corpuscular HGB Conc 24.0 g/dL Low 32.0-36.5 Red Cell Distribution Width 21.1 % High 11.5-14.5 Platelet Count, Automated 228 10 Normal 150-450 Neutrophils % 81.2 % High 36.0-66.0 Lymph % 8.0 % Low 24.0-44.0 Coffey % 8.0 % Normal 2.0-8.0 Eos % 1.9 % Normal 0.0-3.0 Baso % 0.3 % Normal 0.0-1.0 Immature Granulocyte % 0.6 % Normal 0-3.0 Nucleated Red Blood Cell % 0.2 % High 0-0 Neutrophils # 10.7 10 High 1.5-8.5 Lymph # 1.1 10 Low 1.5-5.0 Coffey # 1.1 10 High 0.0-0.8 Eos # 0.3 10 Normal 0.0-0.5 Baso # 0.0 10 Normal 0.0-0.2 Body Fluid Culture And GS 05/05/2020 [facility] [phone] Gram Stain (SEE NOTE) Normal 4 Body Fluid Culture <SEE NOTE> 5 Glucose Body Fluid 05/05/2020 [facility] nter [phone] Glucose, Body Fluid 146 mg/dL Normal Not Establis hed Source, Body Fluid Glucose ASCITES Normal TP Body Fluid 05/05/2020 [facility] nter [phone] Total Protein, Body Fluid 0.7 g/dL Normal Not Es tablished Source, Body Fluid Tot Protein ASCITES Normal Laboratory test finding 05/05/2020 [facility] [phone] Non Strategic Planning Director/Cytology Req For Servi (SEE NOTE) 6 1 FINAL DIAGNOSIS Ascites fluid, cell block: No malignant cells identified. Reactive mesothelial cells and predominantly lymphocytic background. 05/06/2020850 CLINICAL DIAGNOSIS Ascites fluid 05/06/2020727 GROSS DIAGNOSIS Received 1,200 ml of yellow ascites fluid for cell block. -SV 05/06/2020727 Signed DALTON CHAU MD 05/06/2020850 2 Units are mL/min/1.73 m2 Chronic Kidney Disease Staging per NKF: Stage I & II GFR >=60 Normal to Mildly Decreased Stage III GFR 30-59 Moderately Decreased Stage IV GFR 15-29 Severely Decreased Stage V GFR <15 Very Little GFR Left ESRD GFR <15 on ROOM SERVICE ASSOCIATE 3 THERAPUTIC HUMAN INR VALUES INDICATIONS NORMAL RANGES PROPHYLAXIS/TREATMENT OF: VENOUS THROMBOSIS 2.0-3.0 PULMONARY EMBOLISM 2.0-3.0 PREVENTION OF SYSTEMIC EMBOLISM FROM: TISSUE HEART VALVES 2.0-3.0 ACUTE MYOCARDIAL INFARCTION 2.0-3.0 VALVULAR HEART DISEASE 2.0-3.0 ATRIAL FIBRILLATION 2.0-3.0 MECHANICAL VALVES(HIGH RISK) 2.5-3.5 RECURRENT MYOCARDIAL INFARCTION 2.5-3.5 4 MANY WBCS NO ORGANISMS SEEN 5 If aerobic or anaerobic growth is detected within the next 7-21 days, an addendum will follow. . . FULL REPORT IN LAB NOTES (eCW and Medent). NO GROWTH AEROBICALLY 6 SPECIMEN: Periton eal fluid 1200 ml cloudy yellow SPECIMEN ADEQUACY: Satisfactory for evaluation CATEGORIZATION: No Malignancy identified DESCRIPTIONS: Specimen consists of mesothelial cells in a background of blood elements. COMMENTS: 05/06/2020 - 929 Signed KEYSHA JEROME (ASCP) 05/06/2020929 (Prelim) Signed DALTON CHAU MD 05/09/2020 0933 Procedures Date Code Description Status 10/12/2020 77827 Office/Outpatient Established Lo w MDM 20-29 Min Completed 09/21/2020 34872 Complex Chronic Care MGMT Servic e Ea Addl 30 Min Completed 09/21/2020 60833 Complex Chronic Care Management SVC 1St 60 Min Completed 08/18/2020 61936 Chronic Care MGMT 20 Mins Clinical Staff Time Per Calendar Month Completed 08/18/2020 46946 Chronic Care Management Services Ea Addl 20 Min Completed 07/11/2020 12671 Office/Outpatient Established SF MDM 10-19 Min Completed 07/06/2020 22134 Chronic Care MGMT 20 Mins Clinical Staff Time Per Calendar Month Completed 07/06/2020 02822 Chronic Care Management Services Ea Addl 20 Min Completed 05/27/2020 53415 Chronic Care MGMT 20 Mins Clinical Staff Time Per Calendar Month Completed 05/27/2020 02904 Chronic Care Management Services Ea Addl 20 Min Completed 05/19/2020 74936 Office/Outpatient Established Mo d MDM 30-39 Min Completed 05/19/2020 20104 ECG 12-Lead Completed 05/18/2020 42657 Complex Chronic Care MGMT Servic e Ea Addl 30 Min Completed 05/18/2020 75640 Complex Chronic Care Management SVC 1St 60 Min Completed Medical Devices Description No Information Available Encounters Type Date Location Provider Dx Diagnosis Office Visit 10/12/2020 12:45p Main Office Dania Erazo PA-C I50.3 2 Chronic diastolic (congestive) heart failure Office Visit 09/21/2020 11:00a Main Office Dell Durán MD I11.0 Hypertensive heart disease with heart failure I48.21 Permanent atrial fibrillatio n Office Visit 08/18/2020 9:33a Main Office Dell Durán MD I50.3 2 Chronic diastolic (congestive) heart failure I11.0 Hypertensive heart disease w [facility] heart failure Office Visit 07/11/2020 12:45p Main Office Dania Erazo PA-C I50.3 2 Chronic diastolic (congestive) heart failure Office Visit 07/06/2020 3:27p Main Office Dell Durán MD I50.3 2 Chronic diastolic (congestive) heart failure I11.0 Hypertensive heart disease w [facility] heart failure Office Visit 05/27/2020 1:00p Main Office Dell Durán MD I50.3 2 Chronic diastolic (congestive) heart failure I11.0 Hypertensive heart disease w [facility] heart failure Office Visit 05/19/2020 12:30p Main Office Dania Erazo PA-C I50.3 2 Chronic diastolic (congestive) heart failure I11.0 Hypertensive heart disease w [facility] heart failure I27.81 Cor pulmonale (chronic) K76.1 Chronic passive congestion o f liver I48.21 Permanent atrial fibrillatio n R94.31 Abnormal electrocardiogram [ ECG] [EKG] I34.0 Nonrheumatic mitral (valve) insufficiency E78.2 Mixed hyperlipidemia I44.2 Atrioventricular block, comp lete Z95.0 Presence of cardiac pacemake r Z71.3 Dietary counseling and surve illance Office Visit 05/18/2020 1:23p Main Office Dell Durán MD I50.3 2 Chronic diastolic (congestive) heart failure I11.0 Hypertensive heart disease w ith heart failure I48.21 Permanent atrial fibrillatio n I34.0 Nonrheumatic mitral (valve) insufficiency Assessments Date Code Description Provider 10/12/2020 I50.32 Chronic diastolic (congestive) h eart failure Dania Erazo PA-C 09/21/2020 I11.0 Hypertensive heart disease with heart failure Dell Durán MD 09/21/2020 I48.21 Permanent atrial fibrillation Nader Durán MD 08/18/2020 I50.32 Chronic diastolic (congestive) h eart failure Dell Durán MD 08/18/2020 I11.0 Hypertensive heart disease with heart failure Dell Durán MD 07/11/2020 I50.32 Chronic diastolic (congestive) h eart failure Dania Erazo PA-C 07/06/2020 I50.32 Chronic diastolic (congestive) h eart failure Dell Durán MD 07/06/2020 I11.0 Hypertensive heart disease with heart failure Dell Durán MD 05/27/2020 I50.32 Chronic diastolic (congestive) h eart failure Dell Durán MD 05/27/2020 I11.0 Hypertensive heart disease with heart failure Dell Durán MD 05/19/2020 I50.32 Chronic diastolic (congestive) h eart failure Dania Erazo PA-C 05/19/2020 I11.0 Hypertensive heart disease with heart failure Dania Erazo PA-C 05/19/2020 I27.81 Cor pulmonale (chronic) Dania mancilla PA-C 05/19/2020 K76.1 Chronic passive congestion of li adryan Dania Erazo PA-C 05/19/2020 I48.21 Permanent atrial fibrillation Miguel Denson PA-C 05/19/2020 R94.31 Abnormal electrocardiogram [ECG] [EKG] Danai Bedoya Kacey, PA-C 05/19/2020 I34.0 Nonrheumatic mitral (valve) insu fficiency Dania Verahaydee, PA-C 05/19/2020 E78.2 Mixed hyperlipidemia Dania carcamo, PA-C 05/19/2020 I44.2 Atrioventricular block, complete Dania Bedoya Kacey, PA-C 05/19/2020 Z95.0 Presence of cardiac pacemaker Miguel Moore Kacey, PA-C 05/19/2020 Z71.3 Dietary counseling and surveilla nce Dania Bedoya Kacey, PA-C 05/18/2020 I50.32 Chronic diastolic (congestive) h eart failure Dell Durán MD 05/18/2020 I11.0 Hypertensive heart disease with heart failure Dell Durán MD 05/18/2020 I48.21 Permanent atrial fibrillation Da alonzo Durán MD 05/18/2020 I34.0 Nonrheumatic mitral (valve) insu fficiency Dell Durán MD Plan of Treatment Future Appointment(s):* 01/12/2021 10:45 am - Dania Erazo PA-C at Main Office * 05/23/2021 11:15 am - Dania Erazo PA-C at Main Office 10/12/2020 - EFREM FitzgeraldC* I50.32 Chronic diastolic (congestive) heart failure* Recommendations:* [...]
--- OUTSIDE RECORDS SUMMARY | 2020-12-27 09:56 | CCD | Continuity of Care Document ---
Author Author Leland DURÁN MD Organization Unknown Address [address] [place] [address], [place] [address] Phone [phone] Care Team Providers Care [facility] Dentist Name Role Phone Yunior Chin MD AUTM [phone] Dania ErazoC AUTM [phone] Hilda Jensen AUTM [phone] Dell Dawkins DO AUTM [phone] Dontae Patricio DPMaulik AUTM [phone] Mery Bowser MD AUTM [phone] Dell Tom MD AUTM [phone] China BejaranoP AUTM [phone] Nelida Sylvester MD AUTM [phone] Balaji Rodriguez MD AUTM [phone] Problems Active Problems Provider Date Chronic diastolic [...] Exercise Type/Frequency Does housework twice a w habematolel Exercise Limitations Back Pain Exercise Limitations Joint [...] mouth three times a day Unknown 10/11/19 Torsemide 100mg Tablets 1/2 by mouth twice [...] Tablets 6 po da mora Rohan Santana [employer] 03/14/2010 Allopurinol 100mg Tablets 1 by mouth [...] Result H/L Range Note CBC without Differential 10/05/2020 [facility] - not inter faced (315)- - White Blood Count 7.2 5.0-10.0 Red Blood Count 3.87 Low 4.00-5.40 Platelets 172 172-450 Hemoglobin 9.1 Hematocrit 32.4 CMP 10/05/2020 [facility] - not interfaced (315)- - Albumin Serum/Plasma [...] GFR 1.8 CBC without Differential 09/05/2020 [facility] (315)- - White Blood Count 8.7 5.0-10.0 Red Blood Count 4.00 Low 4.70-6.10 Platelets 223 172-450 Hemoglobin 9.3 Low 14.0-18.0 Hematocrit 30.3 Low 42.0-52.0 Laboratory test finding 05/05/2020 [facility] [phone] Non Pruner/Cytology Req For Servi (SEE NOTE) 1 TP Body Fluid 05/05/2020 [facility] nter [phone] Total Protein, Body Fluid 0.7 g/dL Normal Not Es tablished Source, Body Fluid Tot Protein ASCITES Normal Glucose Body Fluid 05/05/2020 [facility] nter [phone] Glucose, Body Fluid 146 mg/dL Normal Not Establis hed Source, Body Fluid Glucose ASCITES Normal Body Fluid Culture And GS 05/05/2020 [facility] [phone] Gram Stain (SEE NOTE) Normal 2 Body Fluid Culture <SEE NOTE> 3 CBC With Differential 05/05/2020 [facility] [phone] White Blood Count 13.1 10 High 4.0-10.0 [...] 36.0-66.0 Lymph % 8.0 % Low 24.0-44.0 Jerome % 8.0 % Normal 2.0-8.0 Eos % 1.9 % Normal 0.0-3.0 Baso % 0.3 % Normal 0.0-1.0 Immature Granulocyte % 0.6 % Normal 0-3.0 Nucleated Red Blood Cell % 0.2 % High 0-0 Neutrophils # 10.7 10 High 1.5-8.5 Lymph # 1.1 10 Low 1.5-5.0 Jerome # 1.1 10 High 0.0-0.8 Eos # 0.3 10 Normal 0.0-0.5 Baso # 0.0 10 Normal 0.0-0.2 Prothrombin Time/Inr 05/05/2020 [facility] enter [phone] Prothrombin Time 15.4 seconds High 12.5-14.3 Inr 1.19 Normal 4 Basic Metabolic Profile 05/05/2020 [facility] [phone] Glucose, Fasting 112 mg/dL High 70-100 Blood Urea Nitrogen 55 mg/dL High 7-18 Creatinine For GFR 2.03 mg/dL High 0.70-1.30 Glomerular Filtration Rate 34.3 Low >42 5 Sodium Level 141 mEq/L Normal 136-145 Potassium Serum 4.3 mEq/L Normal 3.5-5.1 Chloride Level 109 mEq/L High 98-107 Carbon Dioxide Level 22 mEq/L Normal 21-32 Anion Gap 10 mEq/L Normal 8-16 Calcium Level 8.4 mg/dL Low 8.8-10.2 Laboratory test finding 05/05/2020 [facility] [phone] Pathology Request For Service (SEE NOTE) 6 1 SPECIMEN: Periton eal fluid 1200 ml cloudy yellow SPECIMEN ADEQUACY: Satisfactory for evaluation CATEGORIZATION: No Malignancy identified DESCRIPTIONS: Specimen consists of mesothelial cells in a background of blood elements. COMMENTS: 05/06/2020 - 929 Signed KEYSHA JEROME (ASCP) 05/06/2020 0930 (Prelim) Signed DALTON CHAU MD 05/09/2020 0933 2 MANY WBCS NO ORGANISMS SEEN 3 If aerobic or anaerobic growth is detected within the next 7-21 days, an addendum will follow. . . FULL REPORT IN LAB NOTES (eCW and [facility]). NO GROWTH AEROBICALLY 4 THERAPUTIC HUMAN INR VALUES INDICATIONS NORMAL RANGES PROPHYLAXIS/TREATMENT OF: VENOUS THROMBOSIS 2.0-3.0 PULMONARY EMBOLISM 2.0-3.0 PREVENTION OF SYSTEMIC EMBOLISM FROM: TISSUE HEART VALVES 2.0-3.0 ACUTE MYOCARDIAL INFARCTION 2.0-3.0 VALVULAR HEART DISEASE 2.0-3.0 ATRIAL FIBRILLATION 2.0-3.0 MECHANICAL VALVES(HIGH RISK) 2.5-3.5 RECURRENT MYOCARDIAL INFARCTION 2.5-3.5 5 Units are mL/min/1.73 m2 Chronic Kidney Disease Staging per NKF: Stage I & II GFR >=60 Normal to Mildly Decreased Stage III GFR 30-59 Moderately Decreased Stage IV GFR 15-29 Severely Decreased Stage V GFR <15 Very Little GFR Left ESRD GFR <15 on KILN MECHANIC 6 FINAL DIAGNOSIS Ascites fluid, cell block: No malignant cells identified. Reactive mesothelial cells and predominantly lymphocytic background. 05/06/2020 - 850 CLINICAL DIAGNOSIS Ascites fluid 05/06/2020727 GROSS DIAGNOSIS Received 1,200 ml of yellow ascites fluid for cell block. -SV 05/06/2020727 Signed DALTON CHAU MD 05/06/2020 0851 Procedures Date Code Description Status 10/12/2020 72628 Office/Outpatient Established Lo w MDM 20-29 Min Completed 09/21/2020 33085 Complex Chronic Care MGMT Servic e Ea Addl 30 Min Completed 09/21/2020 20320 Complex Chronic Care Management SVC 1St 60 Min Completed 08/18/2020 49126 Chronic Care MGMT 20 Mins Clinical Staff Time Per Calendar Month Completed 08/18/2020 99751 Chronic Care Management Services Ea Addl 20 Min Completed 07/11/2020 61003 Office/Outpatient Established SF MDM 10-19 Min Completed 07/06/2020 45471 Chronic Care MGMT 20 Mins Clinical Staff Time Per Calendar Month Completed 07/06/2020 72493 Chronic Care Management Services Ea Addl 20 Min Completed 05/27/2020 71723 Chronic Care MGMT 20 Mins Clinical Staff Time Per Calendar Month Completed 05/27/2020 87796 Chronic Care Management Services Ea Addl 20 Min Completed 05/19/2020 45148 Office/Outpatient Established Mo d MDM 30-39 Min Completed 05/19/2020 95231 ECG 12-Lead Completed 05/18/2020 41960 Complex Chronic Care MGMT Servic e Ea Addl 30 Min Completed 05/18/2020 22492 Complex Chronic Care Management SVC 1St 60 [...] heart failure I11.0 Hypertensive heart disease w [facility] heart failure Office Visit 07/11/2020 12:45p Main Office Dania Erazo PA-C I50.3 2 Chronic diastolic (congestive) heart failure Office Visit 07/06/2020 3:27p Main Office Dell Durán MD I50.3 2 Chronic diastolic (congestive) heart failure I11.0 Hypertensive heart disease w [facility] heart failure Office Visit 05/27/2020 1:00p Main Office Dell Durán MD I50.3 2 Chronic diastolic (congestive) heart failure I11.0 Hypertensive heart disease w [facility] heart failure Office Visit 05/19/2020 12:30p Main Office Dania Erazo PA-C I50.3 2 Chronic diastolic (congestive) heart failure I11.0 Hypertensive heart disease w [facility] heart failure I27.81 Cor pulmonale (chronic) [...] heart failure I11.0 Hypertensive heart disease w [facility] heart failure I48.21 Permanent atrial fibrillatio n I34.0 Nonrheumatic mitral (valve) insufficiency Assessments Date Code Description Provider 10/12/2020 I50.32 Chronic diastolic (congestive) h eart failure Dania Erazo PA-C 09/21/2020 I11.0 Hypertensive heart disease with heart failure Dell Durán MD 09/21/2020 I48.21 Permanent atrial fibrillation Da ernstmaria Durán MD 08/18/2020 I50.32 Chronic diastolic (congestive) h eart failure Dell Durán MD 08/18/2020 I11.0 Hypertensive heart disease with heart failure Dell Durán MD 07/11/2020 I50.32 Chronic diastolic (congestive) h eart failure EFREM FitzgeraldC 07/06/2020 I50.32 Chronic diastolic (congestive) h eart failure Dell Durán MD 07/06/2020 I11.0 Hypertensive heart disease with heart failure Dell Durán MD 05/27/2020 I50.32 Chronic diastolic (congestive) h eart failure Dell Durán MD 05/27/2020 I11.0 Hypertensive heart disease with heart failure Dell Durán MD 05/19/2020 I50.32 Chronic diastolic (congestive) h eart failure SHALONDA Fitzgerald-C 05/19/2020 I11.0 Hypertensive heart disease with heart failure Dania Erazo, PA-C 05/19/2020 I27.81 Cor pulmonale (chronic) Dania mancilla, PA-C 05/19/2020 K76.1 Chronic passive congestion of li adryan Dania Erazo, PA-C 05/19/2020 I48.21 Permanent atrial fibrillation Miguel Denson, PA-C 05/19/2020 R94.31 Abnormal electrocardiogram [ECG] [EKG] Dania Erazo, PA-C 05/19/2020 I34.0 Nonrheumatic mitral (valve) insu fficiency Dania Erazo, PA-C 05/19/2020 E78.2 Mixed hyperlipidemia Dania carcamo, PA-C 05/19/2020 I44.2 Atrioventricular block, complete Dania Erazo, PA-C 05/19/2020 Z95.0 Presence of cardiac pacemaker Miguel Denson, PA-C 05/19/2020 Z71.3 Dietary counseling and surveilla nce aDnia Erazo, PA-C 05/18/2020 I50.32 Chronic diastolic (congestive) h [...]
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
--- OUTSIDE RECORDS SUMMARY | 2020-12-27 09:56 | CCD ---
Author Author [facility] Organization [facility] Address Unknown Phone Unavailable Care Team Providers Care Home Comfort Advisor Name Role Phone China Bejarano Unavailable PROBLEMS Type Condition ICD9-CM Code ZYH53-AO Code Onset Dates Condition S tatus W/U Status Risk SNOMED Code Notes Problem Varicocele I86.1 Active confirmed 00070888 Problem Psoriasis L40.9 Active confirmed 9869705 Problem Idiopathic esophageal varices with bleeding I85.01 Active confirmed 22993471 Problem Hydrocele N43.3 Active confirmed 903413116 Problem Acquired hypothyroidism E03.9 Active confirmed 110702745 Problem Ybarra's esophagus with low grade dysplasia K22.7 10 Active confirmed 2923282488062272 Problem Chronic diastolic heart failure I50.32 Active confi rmed 189334848 Problem half-way (current) use of insulin Z79.4 Activ e confirmed 044394747 Problem Idiopathic chronic gout of foot without tophus, 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 Active confirmed 52482131 Problem Type 2 diabetes mellitus without complications E11 .9 Active confirmed 967898648 Problem Venous stasis dermatitis of both lower extremities I87.2 Active confirmed 66645659 Problem Gastroesophageal reflux dise ase, unspecified whether esophagitis present K21.9 Active confirmed 278063161 Problem Atrial fibrillation, unspecified type I48.91 Ac tive confirmed 25748126 Problem Diabetes mellitus without me ntion of complication, type II or unspecified type, not stated as uncontrolled 250.00 Activ e confirmed 422021140 Problem Bladder wall thickening N32.89 Active confirmed 668284831 Problem Chronic obstructive pulmonary disease, unspecified COPD ty pe J44.9 Active confirmed 68238597 Problem 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 Code:[address]-77) elevated LFT's Drug Doug rgy Active ciprofloxacin Cipro([facility] Code:[address]-76) Nausea/Vomiting Drug Doug rgy Active valsartan Diovan([facility] Code:[address]-49) Unknown Drug Allergy Active Quinolones quinolones Rash Non Drug Allergy Active bumetanide Bumex([facility] Code:[address]-04) Unknown Drug Allergy Active ENCOUNTERS from 1945 to 2020-11-05 Encounter Location Date Provider Diagnosis [facility] [address] [facility] [phone] [place] [address] 10 Oct, 2020 China Bejarano IMMUNIZATIONS Vaccine Route Administration Date Status Pneumococcal Adult 0.5mL Pneumovax 23 IM Intramuscular September 13, 2020 Administered SOCIAL HISTORY Tobacco Use: Social History Observation Description Date Details (start date - stop date) Former Smoker Sex Assigned At : Social History Observation Description Sex Assigned At Unknown Education: Question Answer Notes Level of Education: High School Language: Question Answer Notes Languages spoken: [place] Citizen Pentecostalism: Question Answer Notes Pentecostalism 13 Jain Sexual Hx: Question Answer Notes Had sex [...] Notes Start Da te End Date Status Insulin Aspart FlexPen 100 UNIT/ML INJECT PER SLIDING SCALE THREE TIMES A DAY MAX OF 50 UNITS PER DAY Subcutaneous Not-Taking Vitamin C 1000 MG 1 tablet Orally Once a day for 30 day(s) Active Protonix 40 MG 1 tablet Orally Once a day Active Glucosamine MSM Complex - 1 tablet with meals Orally BID Active Ocuvite Adult Formula - 1 tab Orally Daily Not-Taking Levothyroxine Sodium 175 MCG 1 tablet in the morning o n an empty stomach Oral Daily for 90 days Active Clotrimazole-Betamethasone 1-0.05 % 1 application Exte rnally Twice a day to areas on legs and feet with rash Not-Taking Welchol 625 MG 3 tablets with meals Orally Twice a day Active Test Strips - as directed three times daily for 90 day s ICD10 E11.9, dispense compatible w/ glucometer (requesting freestyle lite if covered); Insulin user Feb, Active Pen Universal 32G X 4 MM as directed six times daily for 90 da y(s) premier value ICD-10: E11.9 Apr, Not-Taking Doxycycline Monohydrate 100 MG 1 capsule Orally Twice a day for 10 day(s) Oct, Active Spironolactone 25 mg 1 tab Orally bid Active Omeprazole 40 mg 1 capsule Orally daily Not-Taking NovoLOG FlexPen 100 UNIT/ML 1 dose Subcutaneous before meals per sliding scale Active Torsemide 100 MG 1/2 tablet Orally bid Active Vitamin D 50 MCG (1999) 1 capsule Orally Once a day Active Colesevelam HCl 625 MG 3 tablets with meals Orally Twice a d ay for 90 day(s) [facility] Feb, Not-Taking Prevagen 10 MG as directed Orally Once a day Active Centrum Adults 1 1 tablet Orally Daily Active Midodrine HCl 5 MG 1 tablet Orally Three times a day Active PreserVision AREDS - as directed Orally Once a day BID Not-Taking Pantoprazole Sodium 40 MG 1 tablet Orally Once a day for 30 day( s) May, Not-Taking Eliquis 2.5 MG 1 tab Oral bid Active Ferrous Gluconate 324 (38 Fe) MG TAKE ONE TABLET BY [facility] TWICE A DAY Oral for 90 Not-Taking Valtrex 1 GM 1 tablet Orally three times a day for 7 days June, Active Allopurinol 100 MG 1 tablet Orally Once a day for 90 day(s) Active Glucometer as directed as directed for 99 days ICD1 0 E11.9, requesting freestyle lite if covered by insurance Feb, Not-Taking ProAir HFA 108 (90 Base) mcg/act 2 puffs as needed Inh alation qid prn for 90 day(s) Active Colesevelam HCl 625 MG 3 tablets with meals Orally Once a day Not-Taking Ascorbic Acid 500 MG 1 tablet Orally Once a day Vit C Not-Taking Levemir FlexTouch 100 UNIT/ML 40 Units Subcutaneous BID for 30 days Active Pantoprazole Sodium 40 MG 1 tablet Oral Once a day for 90 day(s) Not-Taking PreserVision AREDS - 1 cap Orally BID Active PROCEDURES No Information RESULTS No Results REASON FOR VISIT Call [facility]ck MEDICAL (GENERAL) HISTORY Type Description Date Medical History COPD Medical History sleep apnea Medical History septic arthritis of the knee culture positive for Pseudomonas and MRSA Medical History Ybarra's esophagus Medical History congestive heart failure diastolic dysfu nction Medical History recurrent MRSA abscess Medical History MRSA colonization Medical History diabetes Medical History atrial fib Medical History hypothyroidism Medical History Herpes simplex Surgical History I&D of thigh abscess 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 Surgical History pacemaker Surgical History retina surgery right eye 04/2015 Surgical History esophageal varices 03/2019 Surgical History EGD 04/2020, 07/2020 Hospitalization History confusion, elevated blood sugar abov e 700 09/2012 Hospitalization History fluid retention 10/2012 Hospitalization History [facility], Pneumonia 05/17/14- 05/24/14 Hospitalization History [facility], Gout 06/11/14-06/22/14 Hospitalization History fall from shower 04/2016 Hospitalization History [place] - abn/labs 03/2019 Hospitalization History Low Hemoglobin - [facility] 05/05/20-05/16/20 Hospitalization History Spontaneous Bacterial Peratinitis -10/05/2020 Goals Section No Information Health Concerns No Information MEDICAL EQUIPMENT No Information MENTAL STATUS No Information FUNCTIONAL STATUS No Information ASSESSMENTS No Information PLAN OF TREATMENT Medication Medication Name Sig Start Date Stop Date Test Strips - as directed three times daily for 90 days Feb Levemir FlexTouch 100 UNIT/ML 40 Units Subcutaneous BID for 30 d ays Doxycycline Monohydrate 100 MG 1 capsule Orally Twice a day for 10 day(s) Oct, Valtrex 1 GM 1 tablet Orally three times a day for 7 days June, Next Appt Details Provider Name:Dontae Mcdaniel, 2020-10-26 6 01:30:00 PM, [address], , [place], [address], Provider Name:China Bejarano, 10:00:00 AM, [address], , [place], [address], Insurance Providers Payer Name Payer Address Payer Phone Insured Name Patient Relati onship to Insured Coverage Start Date Coverage End Date MEDICARE Part A and B [address] [facility] [id number] [phone] M[place]IE MOYA [facility] [address] [facility] [id number] MALLORIE ALVAREZ self
--- OUTSIDE RECORDS SUMMARY | 2020-12-27 09:56 | CCD | Continuity of Care Document ---
Author Author Leland LUNA PA-C Organization Unknown Address [address] [place] [address], [place] [address] Phone [phone] Care Team Providers Care Recovery Collector Name Role Phone Yunior Chin MD AUTM [phone] Dania Luna PA-C AUTM [phone] Hilda Jensen AUTM [phone] Dell Dawkins DO AUTM [phone] Dontae Patricio DP AUTM [phone] Mery Bowser MD AUTM [phone] Dell Tom MD AUTM [phone] China BejaranoP AUTM [phone] Nelida Sylvester MD AUTM [phone] Balaji Rodriguez MD AUTM [phone] Problems Active Problems Provider Date Chronic diastolic heart failure Dania Luna PA-C Onset: 07/22/2012 Benign hypertensive heart disease with congestive card iac failure Dania Luna PA-C Onset: 07/22/2012 Chronic atrial fibrillation Dania Luna PA-C Onset: 02/26 Electrocardiogram abnormal Dania Luna PA-C Onset: 01/17 Left bundle branch block SHALONDA Fitzgerald-C Onset: 011 Mitral valve disorder Dania Luna PA-C Onset: 03/16/2015 Hyperlipidemia Dania Luna PA-C Onset: 01/17/2011 Obesity Dania Lnua PA-C 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 Dania Luna PA-C Onset: 01/08/2012 Cardiac pacemaker in situ Dania Luna PA-C Onset: 2011 Obstructive sleep apnea syndrome Dania Luna PA-C Onset: 01/17/2011 Mixed hyperlipidemia Dania Luna PA-C Onset: 05/17/2017 Dietary management surveillance Dania Luna PA-C Onset: 05/17/2017 Chronic pulmonary heart disease Dania Luna PA-C Onset: 08/12/2018 Permanent atrial fibrillation Dania Luna PA-C Onset: Social History Type Date Description [...] Exercise Type/Frequency Does housework twice a w [place] Exercise Limitations Back Pain Exercise Limitations Joint [...] Tablets 6 po da mora Rohan Santana [facility] 03/14/2010 Allopurinol 100mg Tablets 1 by mouth [...] 111 High 83-110 Creatinine For GFR 2.32 [facility] 09/05/2020 [facility] (315)- - Albumin Serum/Plasma [...] Low 42.0-52.0 Laboratory test finding 05/05/2020 [facility] [phone] Non Collet Maker/Cytology Req For Servi (SEE NOTE) 1 TP Body Fluid 05/05/2020 [facility] nter [phone] Total Protein, Body Fluid 0.7 g/dL Normal Not Es tablished Source, Body Fluid Tot Protein ASCITES Normal Glucose Body Fluid 05/05/2020 [facility] nter [phone] Glucose, Body Fluid 146 mg/dL Normal Not Establis hed Source, Body Fluid Glucose ASCITES Normal Body Fluid Culture And GS 05/05/2020 [facility] [phone] Gram Stain (SEE NOTE) Normal 2 Body Fluid Culture <SEE NOTE> 3 CBC With Differential 05/05/2020 [facility] [phone] White Blood Count 13.1 10 High 4.0-10.0 [...] 36.0-66.0 Lymph % 8.0 % Low 24.0-44.0 [place] % 8.0 % Normal 2.0-8.0 Eos % 1.9 % Normal 0.0-3.0 Baso % 0.3 % Normal 0.0-1.0 Immature Granulocyte % 0.6 % Normal 0-3.0 Nucleated Red Blood Cell % 0.2 % High 0-0 Neutrophils # 10.7 10 High 1.5-8.5 Lymph # 1.1 10 Low 1.5-5.0 [place] # 1.1 10 High 0.0-0.8 Eos # 0.3 10 Normal 0.0-0.5 Baso # 0.0 10 Normal 0.0-0.2 Prothrombin Time/Inr 05/05/2020 [facility] enter [phone] Prothrombin Time 15.4 seconds High 12.5-14.3 Inr 1.19 Normal 4 Basic Metabolic Profile 05/05/2020 [facility] [phone] Glucose, Fasting 112 mg/dL High 70-100 Blood [...] mg/dL Low 8.8-10.2 Laboratory test finding 05/05/2020 [facility] [phone] Pathology Request For Service (SEE NOTE) 6 1 SPECIMEN: Periton eal fluid 1200 ml cloudy yellow SPECIMEN ADEQUACY: Satisfactory for evaluation CATEGORIZATION: No Malignancy identified DESCRIPTIONS: Specimen consists of mesothelial cells in a background of blood elements. COMMENTS: 05/06/2020 - 929 Signed KEYSHA JEROME (ASCP) 05/06/2020 09 (Prelim) Signed DALTON CHAU MD 05/09/2020 0933 [...] Little GFR Left ESRD GFR <15 on PRODUCTION ASSEMBLER 6 FINAL DIAGNOSIS Ascites fluid, cell block: No malignant cells identified. Reactive mesothelial cells and predominantly lymphocytic background. 05/06/2020850 CLINICAL DIAGNOSIS Ascites fluid 05/06/2020727 GROSS DIAGNOSIS Received 1,200 ml of yellow ascites fluid for cell block. -SV 05/06/2020727 Signed DALTON CHAU MD 05/06/2020 0851 Procedures Date Code Description Status 10/12/2020 61575 Office/Outpatient Established Lo w MDM 20-29 Min Completed 08/18/2020 34480 Chronic Care MGMT 20 Mins Clinical Staff Time Per Calendar Month Completed 08/18/2020 13935 Chronic Care Management Services Ea Addl 20 Min Completed 07/11/2020 78399 Office/Outpatient Established SF MDM 10-19 Min Completed 07/06/2020 10654 Chronic Care MGMT 20 Mins Clinical Staff Time Per Calendar Month Completed 07/06/2020 86867 Chronic Care Management Services Ea Addl 20 Min Completed 05/27/2020 87953 Chronic Care MGMT 20 Mins Clinical Staff Time Per Calendar Month Completed 05/27/2020 11844 Chronic Care Management Services Ea Addl 20 Min Completed 05/19/2020 46597 Office/Outpatient Established Mo d MDM 30-39 Min Completed 05/19/2020 51806 ECG 12-Lead Completed 05/18/2020 46972 Complex Chronic Care MGMT Servic e Ea Addl 30 Min Completed 05/18/2020 91791 Complex Chronic Care Management SVC 1St 60 Min Completed 04/19/2020 55726 Complex Chronic Care MGMT Servic e Ea Addl 30 Min Completed 04/19/2020 67889 Complex Chronic Care Management SVC 1St 60 Min Completed 04/18/2020 76212 Office/Outpatient Established Lo w MDM 20-29 Min Completed Medical Devices Description No Information Available Encounters Type Date Location Provider Dx Diagnosis Office Visit 10/12/2020 12:45p Main Office Dania Luna PA-C I50.3 2 Chronic diastolic (congestive) heart failure Office Visit 08/18/2020 9:33a Main Office Dell Durán MD I50.3 2 Chronic diastolic (congestive) heart failure I11.0 [facility] Office Visit 07/11/2020 12:45p Main Office Dania Luna PA-C I50.3 2 Chronic diastolic (congestive) heart failure Office Visit 07/06/2020 3:27p Main Office Dell Durán MD I50.3 2 Chronic diastolic (congestive) heart failure I11.0 [facility] Office Visit 05/27/2020 1:00p Main Office Dell Durán MD I50.3 2 Chronic diastolic (congestive) heart failure I11.0 [facility]pert[facility] heart [facility] Office Visit 05/19/2020 12:30p Main Office Dania Luna PA-C I50.3 2 Chronic diastolic (congestive) heart failure I11.0 [facility] heart failure I27.81 Cor pulmonale (chronic) K76.1 [...] fibrillatio n I34.0 Nonrheumatic mitral (valve) insufficiency Office Visit 04/19/2020 9:27a Main Office Dell Durán MD E78.2 Mixed hyperlipidemia I34.0 Nonrheumatic mitral (valve) insufficiency I50.32 Chronic diastolic (congestiv e) heart failure I48.21 Permanent atrial fibrillatio n Office Visit 04/18/2020 12:45p Main Office Dania Luna, SHALONDA-C K76.1 Chronic passive congestion of liver I27.81 Cor pulmonale (chronic) Assessments Date Code Description Provider 10/12/2020 I50.32 Chronic diastolic (congestive) h eart failure Dania Luna, [facility] 08/18/2020 I50.32 Chronic diastolic (congestive) h eart [...] I11.0 Hypertensive heart disease with heart failure SHALONDA Fitzgerald-C 05/19/2020 I27.81 Cor pulmonale (chronic) Dania mancilla, PA-C 05/19/2020 K76.1 Chronic passive congestion of li adryan Dania Luna, PA-C 05/19/2020 I48.21 Permanent atrial fibrillation Miguel Denson, PA-C 05/19/2020 R94.31 Abnormal electrocardiogram [ECG] [EKG] Dania Luna, PA-C 05/19/2020 I34.0 Nonrheumatic mitral (valve) insu fficiency Dania Luna, PA-C 05/19/2020 E78.2 Mixed hyperlipidemia Dania carcamo, PA-C 05/19/2020 I44.2 Atrioventricular block, complete Dania Luna, PA-C 05/19/2020 Z95.0 Presence of cardiac pacemaker Miguel Denson PA-C 05/19/2020 Z71.3 Dietary counseling and surveilla cathryn Luna PA-C 05/18/2020 I50.32 Chronic diastolic (congestive) h eart failure Dell Durán MD 05/18/2020 I11.0 Hypertensive heart disease with heart failure Dell Durán MD 05/18/2020 I48.21 Permanent atrial fibrillation Nader Durán MD 05/18/2020 I34.0 Nonrheumatic mitral (valve) insu fficiency Dell Durán MD 04/19/2020 E78.2 Mixed hyperlipidemia Dell kimball MD 04/19/2020 I34.0 Nonrheumatic mitral (valve) insu fficiency Dell Durán MD 04/19/2020 I50.32 Chronic diastolic (congestive) h eart failure Dell Durán MD 04/19/2020 I48.21 Permanent atrial fibrillation Nader Durán MD 04/18/2020 K76.1 Chronic passive congestion of li adryan Dania Luna PA-C 04/18/2020 I27.81 Cor pulmonale (chronic) Dania mancilla PA-C Plan of Treatment Future Appointment(s):* 01/12/2021 10:45 am - Dania Luna PA-C at Main Office * 05/23/2021 11:15 am - Dania Luna PA-C at Main Office 10/12/2020 - Dania Luna PA-C* I50.32 Chronic diastolic (congestive) heart failure* [...] Mental Status Description No Information Available Referrals Refer to Reason for Referral Status Appt Date Nelida Sylvester MD consideration for paracentesis Closed [facility] Interventional Radiology [address] [place] [address] [phone]
--- OUTSIDE RECORDS SUMMARY | 2020-12-27 09:56 | CCD ---
Author Author [facility] Organization [facility] Address Unknown Phone Unavailable Care Team Providers Care Reshipping Clerk Name Role Phone China Bejarano Unavailable PROBLEMS Type Condition ICD9-CM Code NJE64-CK Code Onset Dates Condition S tatus W/U Status Risk SNOMED Code Notes Problem Varicocele I86.1 Active confirmed 81863216 Problem Psoriasis L40.9 Active confirmed 6040122 Problem Idiopathic esophageal varices with bleeding I85.01 Active confirmed 74032475 Problem Hydrocele N43.3 Active confirmed 505736075 Problem Acquired hypothyroidism E03.9 Active confirmed 919565752 Problem Ybarra's esophagus with low grade dysplasia K22.7 10 Active confirmed 6314707306528490 Problem Chronic diastolic heart failure I50.32 Active confi rmed 551130769 Problem jail (current) use of insulin Z79.4 Activ e confirmed 777569882 Problem Idiopathic chronic gout of foot without tophus, 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 Active confirmed 70982649 Problem Type 2 diabetes mellitus without complications E11 .9 Active confirmed 488588266 Problem Venous stasis dermatitis of both lower extremities I87.2 Active confirmed 37543612 Problem Gastroesophageal reflux dise ase, unspecified whether esophagitis present K21.9 Active confirmed 903037409 Problem Atrial fibrillation, unspecified type I48.91 Ac tive confirmed 47058833 Problem Diabetes mellitus without me ntion of complication, type II or unspecified type, not stated as uncontrolled 250.00 Activ e confirmed 180586948 Problem Bladder wall thickening N32.89 Active confirmed 388990351 Problem Chronic obstructive pulmonary disease, unspecified COPD ty pe J44.9 Active confirmed 60512853 Problem 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 Code:[address]-30) elevated LFT's Drug Doug rgy Active ciprofloxacin Cipro([facility] Code:[address]-41) Nausea/Vomiting Drug Doug rgy Active valsartan Diovan([facility] Code:[address]-02) Unknown Drug Allergy Active Quinolones quinolones Rash Non Drug Allergy Active bumetanide Bumex([facility] Code:[address]-99) Unknown Drug Allergy Active ENCOUNTERS from 1945 to 2020-10-21 Encounter Location Date Provider Diagnosis [facility] [address] [facility] [phone] [place] [address] 16 Sep, 2020 China Bejarano Left upper extremity swellin g M79.89 ; Hospital discharge follow-up Z09 ; Spontaneous bacterial peritonitis K65.2 and Bladder wall thickening N32.89 IMMUNIZATIONS Vaccine Route Administration Date Status Pneumococcal Adult 0.5mL Pneumovax 23 IM Intramuscular September 13, 2020 Administered SOCIAL HISTORY Tobacco Use: Social History Observation Description Date Details (start date - stop date) Former Smoker Sex Assigned At : Social History Observation Description Sex Assigned At Unknown Education: Question Answer Notes Level of Education: High School Language: Question Answer Notes Languages spoken: Greenlandic Congregational: Question Answer Notes Congregational 13 Latter-Day Sexual Hx: Question Answer Notes Had sex [...] last smoked? 5-10 years REASON FOR REFERRAL from 1945 to 2020-10-21 Reason 75yo male patient w/ recent CT ([facility]) showing two distinct areas (10mm and 7mm) of bladder wall thickening, Dr. Cain consulted and recommended outpatient cystoscopy for further evaluation Diagnosis 1 Bladder wall thickening (N32 .89) Referral Organization [facility] [place] Referring Provider First Name China Referring Provider Last Name Darci Referring Provider Specialty Family Medicine Referred Organization [facility] Urology Referred Provider Abdulkadir Stein Referred Address [address] ,[phone] ,[place], [place],[address] Referred Provider Specialty Urology Referral Priority Urgent Referral Appointment Date 2020-11-10 General Notes Marti Vidal 10/11/2020 7:5 1:43 AM > Sent VITAL SIGNS Weight 238.6 lbs Sep, Height 72 in Sep, BMI 32.36 kg/m2 Sep, Heart Rate 62 /min Sep, Respiratory Rate 18 /min Sep, Temperature 97.8 degrees Fahrenheit Sep, Oximetry 96 Sep, Blood pressure systolic 103 mm Hg Sep, Blood pressure diastolic 51 mm Hg Sep, MEDICATIONS Medication SIG (Take, Route, Frequency, Duration) [...] (requesting freestyle lite if covered); Insulin user 21 Tanvir, 2021 Active Pen [place] 32G X 4 MM as directed six times daily for 90 da y(s) premier value ICD-10: E11.9 Apr, Not-Taking Spironolactone 25 mg 1 tab Orally bid Active Omeprazole 40 mg 1 capsule Orally daily Not-Taking NovoLOG FlexPen 100 UNIT/ML 1 dose Subcutaneous before meals per sliding scale Active Torsemide 100 MG 1/2 tablet Orally bid Active Vitamin D 50 MCG (1999 [...] (38 Fe) MG TAKE ONE TABLET BY [facility] TWICE A DAY Oral for 90 Not-Taking [...] Information RESULTS No Results REASON FOR VISIT [facility] discharge 10/05/2020 MEDICAL (GENERAL) HISTORY Type Description Date Medical [...] History I&D of thigh abscess synovectomy for sep tic arthritis 2008 Surgical History pacemaker Surgical History retina surgery right eye 04/2015 Surgical History esophageal varices 03/2019 Surgical History EGD 04/2020, 07/2020 Hospitalization History confusion, elevated blood sugar abov e 700 09/2012 Hospitalization History fluid retention 10/2012 Hospitalization History [facility], Pneumonia 05/17/14- 05/24/14 Hospitalization History [facility], Gout 06/11/14-06/22/14 Hospitalization History fall from shower 04/2016 Hospitalization History [place] - abn/labs 03/2019 Hospitalization History Low Hemoglobin - [facility] 05/05/20-05/16/20 Hospitalization History Spontaneous Bacterial Peratinitis -10/05/2020 Goals Section No Information Health Concerns No Information MEDICAL EQUIPMENT No Information MENTAL STATUS No Information FUNCTIONAL STATUS No Information ASSESSMENTS Encounter Date Diagnosis Assessment Notes Treatment Notes Treatm ent Clinical Notes Sep, Left upper extremity swelling (ICD-10 - M79.89) Concern for vascular origin, US ordered for further evaluation. Sep, Hospital discharge follow-up (ICD-10 - Z09) Appears to be returning to baseline. Continue fluid/sodium restriction and daily weight checks as directed by cardiology. Continue bi-weekly paracentesis as directed by Dr. Norton. Return to ED for changing/worsening sxs. Sep, Spontaneous bacterial peritonitis (ICD-10 - K65. 2) see hospital discharge notes above Sep, Bladder wall thickening (ICD-10 - N32.89) referral placed for further evaluation PLAN OF TREATMENT Medication Medication Name Sig Start Date Stop Date Test Strips - as directed three times daily for 90 days Feb Levemir FlexTouch 100 UNIT/ML 40 Units Subcutaneous BID for 30 d ays Valtrex 1 GM 1 tablet Orally three times a day for 7 days June, Treatment Notes Assessment Notes Clinical Notes Left upper extremity swelling Concern fo r vascular origin, US ordered for further evaluation. Hospital discharge follow-up Appears to be returning to baseline. Continue fluid/sodium restriction and daily weight checks as directed by cardiology. Continue bi-weekly paracentesis as directed by Dr. Norton. Return to ED for changing/worsening sxs. Spontaneous bacterial peritonitis see ho spital discharge notes above Bladder wall thickening referral placed for further evaluation Future Test Test Name Order Date [facility] Duplex Ext Upper Veins Unilat [id number] Referrals Referral Date Details 2020-11-10 2020-11-10, 75yo male patien t w/ recent CT ([facility]) showing two distinct areas (10mm and 7mm) of bladder wall thickening, Dr. Cain consulted and recommended outpatient cystoscopy for further evaluation, Abdulkadir Stein, [address], [place], [address], Next Appt Details pending US, per reg FU schedule Reason: Provider Name:Dontae Mcdaniel, 2020-10-26 6 01:30:00 PM, [address], , [place], [address], Provider Name:China Bejarano, 10:00:00 AM, [address] [facility], , [place], [address], Insurance Providers Payer Name Payer Address Payer Phone Insured Name Patient Relati onship to Insured Coverage Start Date Coverage End Date MEDICARE Part A and B [address] [facility] [id number] MALLORIE MOYA [facility] [address] [facility] [id number] MALLORIE ALVAREZ
--- OUTSIDE RECORDS SUMMARY | 2020-12-27 09:56 | CCD ---
Author Author [facility] Organization [facility] Address Unknown Phone Unavailable Care Team Providers Care Supervisor Pile Driving Name Role Phone China Bejarano Unavailable PROBLEMS Type Condition ICD9-CM Code KML26-ME Code Onset Dates Condition S tatus W/U Status Risk SNOMED Code Notes Problem Varicocele I86.1 Active confirmed 34467772 Problem Psoriasis L40.9 Active confirmed 0734857 Problem Idiopathic esophageal varices with bleeding I85.01 Active confirmed 14410517 Problem Hydrocele N43.3 Active confirmed 903126899 Problem Acquired hypothyroidism E03.9 Active confirmed 549766402 Problem Ybarra's esophagus with low grade dysplasia K22.7 10 Active confirmed 5505912012709162 Problem Chronic diastolic heart failure I50.32 Active confi rmed 694711127 Problem jail (current) use of insulin Z79.4 Activ e confirmed 923519103 Problem Idiopathic chronic gout of foot without tophus, 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 Active confirmed 17977782 Problem Type 2 diabetes mellitus without complications E11 .9 Active confirmed 472470544 Problem Venous stasis dermatitis of both lower extremities I87.2 Active confirmed 16641874 Problem Gastroesophageal reflux dise ase, unspecified whether esophagitis present K21.9 Active confirmed 386979517 Problem Atrial fibrillation, unspecified type I48.91 Ac tive confirmed 39523703 Problem Diabetes mellitus without me ntion of complication, type II or unspecified type, not stated as uncontrolled 250.00 Activ e confirmed 426737508 Problem Bladder wall thickening N32.89 Active confirmed 852019717 Problem Chronic obstructive pulmonary disease, unspecified COPD ty pe J44.9 Active confirmed 88780377 Problem 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.0720 Active confirmed 388957611263528 Problem Unspecified cirrhosis of liver K74.60 Active confir med 910660294 Problem Secondary esophageal varices with bleeding I85.11 Active confirmed 10815735 Problem GALAVIZ (nonalcoholic steatohepatitis) K75.81 Acti ve confirmed 827989422 ALLERGIES Allergen (clinical drug ingredient) Drug/Non Drug Allergy do cumented on EMR Reaction Allergy Type Onset Date Status atorvastatin Lipitor([facility] Code:[address]-82) elevated LFT's Drug Doug rgy Active ciprofloxacin Cipro([facility] Code:[address]-50) Nausea/Vomiting Drug Doug rgy Active valsartan Diovan([facility] Code:[address]-78) Unknown Drug Allergy Active Quinolones quinolones Rash Non Drug Allergy Active bumetanide Bumex([facility] Code:[address]-14) Unknown Drug Allergy Active ENCOUNTERS from 1945 to 2020-10-19 Encounter Location Date Provider Diagnosis [facility] [address] [facility] [phone] [place] [address] Sep, China Bejarano Type 2 diabetes mellitus wit hout complications E11.9 IMMUNIZATIONS Vaccine Route Administration Date Status Pneumococcal Adult 0.5mL Pneumovax 23 IM Intramuscular September 13, 2020 Administered SOCIAL HISTORY Tobacco Use: Social History Observation Description Date Details (start date - stop date) Former Smoker Sex Assigned At : Social History Observation Description Sex Assigned At Unknown Education: Question Answer Notes Level of Education: High School Language: Question Answer Notes Languages spoken: French Jew: Question Answer Notes Jew 13 Latter-Day Sexual Hx: Question Answer Notes [...] if covered); Insulin user Feb, Active Pen [place] 32G X 4 MM as directed six [...] (38 Fe) MG TAKE ONE TABLET BY [facility] TWICE A DAY Oral for 90 Not-Taking [...] Information RESULTS No Results REASON FOR VISIT rx change (medicare coverage) MEDICAL (GENERAL) HISTORY Type Description Date Medical [...] abn/labs 03/2019 Hospitalization History Low Hemoglobin - [facility] 05/05/20-05/16/20 Hospitalization History Spontaneous Bacterial Peratinitis -10/05/2020 Goals Section No Information Health Concerns No Information MEDICAL EQUIPMENT No Information MENTAL STATUS No Information FUNCTIONAL STATUS No Information ASSESSMENTS Encounter Date Diagnosis Assessment Notes Treatment Notes Treatm ent Clinical Notes Sep, Type 2 diabetes mellitus without complications ( ICD-10 - E11.9) PLAN OF TREATMENT Medication Medication Name Sig Start Date Stop Date Test Strips - as directed three times daily for 90 days Feb Levemir FlexTouch 100 UNIT/ML 40 Units Subcutaneous BID for 30 d ays Valtrex 1 GM 1 tablet Orally three times a day for 7 days June, Next Appt Details Provider Name:Dontae Mcdaniel, 2020-10-26 6 01:30:00 PM, [address], , [place], [address], Provider Name:China Bejarano, 10:00:00 AM, [address], , [place], [address], Insurance Providers Payer Name Payer Address Payer Phone Insured Name Patient Relati onship to Insured Coverage Start Date Coverage End Date MEDICARE Part A and B [address] [facility] [phone] MALLORIE MOYA [facility] [address] [facility] [id number] MALLORIE ALVAREZ self
--- OUTSIDE RECORDS SUMMARY | 2020-12-27 09:56 | CCD ---
Author Author [facility] Organization [facility] Address Unknown Phone Unavailable Care Team Providers Care Wharf Hand Name Role Phone China Bejarano Unavailable PROBLEMS Type Condition ICD9-CM Code YKV09-RM Code Onset Dates Condition S tatus W/U Status Risk SNOMED Code Notes Problem Varicocele I86.1 Active confirmed 76845293 Problem Psoriasis L40.9 Active confirmed 3776853 Problem Idiopathic esophageal varices with bleeding I85.01 Active confirmed 54728056 Problem Hydrocele N43.3 Active confirmed 890627109 Problem Acquired hypothyroidism E03.9 Active confirmed 337343905 Problem Ybarra's esophagus with low grade dysplasia K22.7 10 Active confirmed 5003924559561471 Problem Chronic diastolic heart failure I50.32 Active confi rmed 659207601 Problem [facility] (current) use of insulin Z79.4 Activ e confirmed 875164920 Problem Idiopathic chronic gout of foot without tophus, 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 Active confirmed 00470812 Problem Type 2 diabetes mellitus without complications E11 .9 Active confirmed 651064665 Problem Venous stasis dermatitis of both lower extremities I87.2 Active confirmed 33882734 Problem Gastroesophageal reflux dise ase, unspecified whether esophagitis present K21.9 Active confirmed 813345439 Problem Atrial fibrillation, unspecified type I48.91 Ac tive confirmed 37006313 Problem Diabetes mellitus without me ntion of complication, type II or unspecified type, not stated as uncontrolled 250.00 Activ e confirmed 809946251 Problem Bladder wall thickening N32.89 Active confirmed 486152985 Problem Chronic obstructive pulmonary disease, unspecified COPD ty pe J44.9 Active confirmed 39061837 Problem 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.0720 Active confirmed 980659252946808 Problem Unspecified cirrhosis of liver K74.60 Active confir med 907127345 Problem Secondary esophageal varices with bleeding I85.11 Active confirmed 96068621 Problem GALAVIZ (nonalcoholic steatohepatitis) K75.81 Acti ve confirmed 524778947 ALLERGIES Allergen (clinical drug ingredient) Drug/Non Drug Allergy do cumented on EMR Reaction Allergy Type Onset Date Status atorvastatin Lipitor([facility] Code:[address]-66) elevated LFT's Drug Doug rgy Active ciprofloxacin Cipro([facility] Code:[address]-18) Nausea/Vomiting Drug Doug rgy Active valsartan Diovan([facility] Code:[address]-17) Unknown Drug Allergy Active Quinolones quinolones Rash Non Drug Allergy Active bumetanide Bumex([facility] Code:[address]-29) Unknown Drug Allergy Active ENCOUNTERS from 1945 to 2020-10-12 Encounter Location Date Provider Diagnosis [facility] [address] [facility] [phone] [place] [address] Sep, China Bejarano Type 2 diabetes mellitus [...] School Language: Question Answer Notes Languages spoken: Kiswahili Voodoo: Question Answer Notes Voodoo 13 Religion Sexual Hx: Question Answer Notes Had sex [...] Notes Start Da te End Date Status Glucosamine MSM Complex - 1 tablet with meals Orally BID Active Vitamin C 1000 MG 1 tablet Orally Once a day for 30 day(s) Active Protonix 40 MG 1 tablet Orally Once a day Active Glucometer as directed as directed for 99 days ICD1 0 E11.9, requesting freestyle lite if covered by insurance Feb, Not-Taking Ocuvite Adult Formula - 1 tab Orally Daily Not-Taking Levothyroxine Sodium 175 MCG 1 tablet in the morning o n an empty stomach Oral Daily for 90 days Active Clotrimazole-Betamethasone 1-0.05 % 1 application Exte rnally Twice a day to areas on legs and feet with rash Not-Taking Welchol 625 MG 3 tablets with meals Orally Twice a day Active Insulin Aspart FlexPen 100 UNIT/ML INJECT PER SLIDING SCALE THREE TIMES A DAY MAX OF 50 UNITS PER DAY Subcutaneous Not-Taking Pen [place] 32G X 4 MM as directed six times daily for 90 da y(s) premier value ICD-10: E11.9 Apr, Not-Taking Spironolactone 25 mg 1 tab Orally bid Active Omeprazole 40 mg 1 capsule Orally daily Not-Taking NovoLOG FlexPen 100 UNIT/ML 1 dose Subcutaneous before meals per sliding scale Active Torsemide 100 MG 1/2 tablet Orally bid Active Colesevelam HCl 625 MG 3 tablets with meals Orally Twice a d ay for 90 day(s) [facility] Feb, Not-Taking ProAir HFA 108 (90 Base) mcg/act 2 puffs as needed Inh alation qid prn for 90 day(s) Active Test Strips - as directed four times daily for 90 days ICD10 E11.9, dispense compatible w/ glucometer (requesting freestyle lite if covered) Feb, Active Pantoprazole Sodium 40 MG 1 tablet Orally Once a day for 30 day( s) May, Not-Taking Midodrine HCl 5 MG 1 tablet Orally Three times a day Active Allopurinol 100 MG 1 tablet Orally Once a day for 90 day(s) Active Vitamin D 50 MCG (2000 UT) 1 capsule Orally Once a day Active Eliquis 2.5 MG 1 tab Oral bid Active Ferrous Gluconate 324 (38 Fe) MG TAKE ONE TABLET BY [facility] TWICE A DAY Oral for 90 Not-Taking Valtrex 1 GM 1 tablet Orally three times a day for 7 days June, Active Prevagen 10 MG as directed Orally Once a day Active Centrum Adults 1 1 tablet Orally Daily Active PreserVision AREDS - as directed Orally Once a day BID Not-Taking Colesevelam HCl 625 MG 3 tablets [...] Information RESULTS No Results REASON FOR VISIT refill MEDICAL (GENERAL) HISTORY Type Description Date [...] History fall from shower 04/2016 Hospitalization History [facility] - abn/labs 03/2019 Hospitalization History Low Hemoglobin - [facility] 05/05/20-05/16/20 Hospitalization History Spontaneous Bacterial Peratinitis -10/05/2020 Goals Section No Information Health Concerns No Information MEDICAL EQUIPMENT No Information MENTAL STATUS No Information FUNCTIONAL STATUS No Information ASSESSMENTS Encounter Date Diagnosis Assessment Notes Treatment Notes Treatm ent Clinical Notes Sep, Type 2 diabetes mellitus without complications ( ICD-10 - E11.9) PLAN OF TREATMENT Medication Medication Name Sig Start Date Stop Date Valtrex 1 GM 1 tablet Orally three times a day for 7 days June, Levemir FlexTouch 100 UNIT/ML 40 Units Subcutaneous BID for 30 d ays Next Appt Details Provider Name:China Bejarano 10:00:00 AM, [address], , [place], [address], Insurance Providers Payer Name Payer Address Payer Phone Insured Name Patient Relati onship to Insured Coverage Start Date Coverage End Date [facility] [address] [facility] [id number] MALLORIE ALVAREZ MEDICARE Part A and B [address] [facility] [address] [phone] MALLORIE MOYA
--- OUTSIDE RECORDS SUMMARY | 2020-12-27 09:56 | CCD ---
Author Author [facility] Organization [facility] Address Unknown Phone Unavailable Care Team Providers Care Program Advocate Name Role Phone Dontae Mcdaniel Unavailable PROBLEMS Type Condition ICD9-CM Code VBF22-LL Code Onset Dates Condition S tatus W/U Status Risk SNOMED Code Notes Problem Chronic obstructive pulmonary disease, unspecified COPD ty pe J44.9 Active confirmed 22816898 Problem Chronic diastolic heart failure I50.32 Active confi rmed 942362466 Problem Atrial fibrillation, unspecified type I48.91 Ac tive confirmed 23277938 Problem Type 2 diabetes mellitus without complications E11 .9 Active confirmed 587350964 Problem Acquired hypothyroidism E03.9 Active confirmed 208442031 Problem Ybarra's esophagus with low grade dysplasia K22.7 10 Active confirmed [id number] Problem Idiopathic esophageal varices with bleeding I85.01 Active confirmed 93392630 Problem 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 Active confirmed 109287622885466 Problem Unspecified cirrhosis of liver K74.60 Active confir med 057026170 Problem Secondary esophageal varices with bleeding I85.11 Active confirmed 70059691 Problem Lesion of bladder N32.9 Active confirmed 30 3043459 Problem Venous stasis dermatitis of both lower extremities I87.2 Active confirmed 57173209 Problem Hydrocele N43.3 Active confirmed 284483640 Problem Atrophic kidney N26.1 Active confirmed 1975 25707 Problem Idiopathic chronic gout of foot without tophus, 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 Active confirmed 79561422 Problem Psoriasis L40.9 Active confirmed 1370693 Problem Varicocele I86.1 Active confirmed 33254140 Problem GALAVIZ (nonalcoholic steatohepatitis) K75.81 Acti ve confirmed 553084418 Problem Gastroesophageal reflux dise ase, unspecified whether esophagitis present K21.9 Active confirmed 259755843 Problem Bladder wall thickening N32.89 Active confirmed 228206150 Problem Chronic kidney disease, unspecified CKD stage N18. 9 Active confirmed 355070139 ALLERGIES Allergen (clinical drug ingredient) Drug/Non Drug Allergy do cumented on EMR Reaction Allergy Type Onset Date Status atorvastatin Lipitor(NDC Code:[address]-05) elevated LFT's Drug Doug rgy Active ciprofloxacin Cipro(NDC Code:[address]-32) Nausea/Vomiting Drug Doug rgy Active valsartan Diovan(ND Code:[address]-18) Unknown Drug Allergy Active Quinolones quinolones Rash Non Drug Allergy Active bumetanide Bumex(ND Code:[address]-85) Unknown Drug Allergy Active ENCOUNTERS from 1945 to 2020-11-17 Encounter Location Date Provider Diagnosis [facility] [address] [phone] [place] [address] 16 Oct, 2020 Dontae Turecki Lesion of bladder N32.9 ; Chronic kidney disease, unspecified CKD stage N18.9 ; Bilateral renal cysts N28.1 and Atrophic kidney N26.1 IMMUNIZATIONS Vaccine Route Administration Date Status Pneumococcal Adult 0.5mL Pneumovax 23 IM Intramuscular September 13, 2020 Administered SOCIAL HISTORY Tobacco Use: Social History Observation Description Date Details (start date - stop date) Former Smoker Sex Assigned At : Social History Observation Description Sex Assigned At Unknown Education: Question Answer Notes Level of Education: High School Language: Question Answer Notes Languages spoken: Hungarian Pentecostalism: Question Answer Notes Pentecostalism 13 Jewish Sexual Hx: Question Answer Notes Had sex [...] FOR REFERRAL No Information VITAL SIGNS Weight 229 lbs Oct, Weight-kg 103.87 kg Oct, Height 72 in Oct, BMI 31.05 kg/m2 Oct, Heart Rate 81 /min Oct, Respiratory Rate 17 /min Oct, Temperature 97.6 degrees Fahrenheit Oct, Oximetry 96 Oct, Blood pressure systolic 118 mm Hg Oct, Blood pressure diastolic 62 mm Hg Oct, MEDICATIONS Medication SIG (Take, Route, Frequency, Duration) Notes Start Da te End Date Status Prevagen 10 MG as directed Orally Once a day Active Glucometer as directed as directed for 99 days ICD1 0 E11.9, requesting freestyle lite if covered by insurance Feb, Not-Taking Welchol 625 MG 3 tablets with meals Orally Twice a day Active Ascorbic Acid 500 MG 1 tablet Orally Once a day Vit C Not-Taking Valtrex 1 GM 1 tablet Orally three times a day for 7 days June, Active Ferrous Gluconate 324 (38 Fe) MG TAKE ONE TABLET BY [facility] TWICE A DAY Oral for 90 Not-Taking Allopurinol 100 MG 1 tablet Orally Once a day for 90 day(s) Active Ocuvite Adult Formula - 1 tab Orally Daily Not-Taking Colesevelam HCl 625 MG 3 tablets with meals Orally Twice a d ay for 90 day(s) Wellcall Feb, Not-Taking Insulin Aspart FlexPen 100 UNIT/ML INJECT PER SLIDING SCALE THREE TIMES A DAY MAX OF 50 UNITS PER DAY Subcutaneous Not-Taking NovoLOG FlexPen 100 UNIT/ML 1 dose Subcutaneous before meals per sliding scale Active Pen [place]wood 32G X 4 MM as directed six times daily for 90 da y(s) premier value ICD-10: E11.9 Apr, Not-Taking Pantoprazole Sodium 40 MG 1 tablet Orally Once a day for 30 day( s) May, Not-Taking Eliquis 2.5 MG 1 tab Oral bid Active Spironolactone 25 mg 1 tab Orally bid Active Doxycycline Monohydrate 100 MG 1 capsule Orally Twice a day for 10 day(s) Oct, Active Colesevelam HCl 625 MG 3 tablets with meals Orally Once a day Not-Taking Centrum Adults 1 1 tablet Orally Daily Active Pantoprazole Sodium 40 MG 1 tablet Oral Once a day for 90 day(s) Not-Taking Protonix 40 MG 1 tablet Orally Once a day Active Midodrine HCl 5 MG 1 tablet Orally Three times a day Active ProAir HFA 108 (90 Base) mcg/act 2 puffs as needed Inh alation qid prn for 90 day(s) Active Levothyroxine Sodium 175 MCG 1 tablet in the morning o n an empty stomach Oral Daily for 90 days Active Levemir FlexTouch 100 UNIT/ML 40 Units Subcutaneous BID for 30 days Active Torsemide 100 MG 1/2 tablet Orally bid Active Clotrimazole-Betamethasone 1-0.05 % 1 application Exte rnally Twice a day to areas on legs and feet with rash Not-Taking Vitamin D 50 MCG (2000 UT) 1 capsule Orally Once a day Active Test Strips - as directed three times daily for 90 day s ICD10 E11.9, dispense compatible w/ glucometer (requesting freestyle lite if covered); Insulin user Feb, Active Vitamin C 1000 MG 1 tablet Orally Once a day for 30 day(s) Active PreserVision AREDS - 1 cap Orally BID Active PreserVision AREDS - as directed Orally Once a day BID Not-Taking Omeprazole 40 mg 1 capsule Orally daily Not-Taking Glucosamine MSM Complex - 1 tablet with meals Orally BID Active PROCEDURES No Information RESULTS Component Value Reference Range UA URINALYSIS Reviewed date:11/11/2020 14:26:59 Interpretation: Performing Lab:[facility] [address] [facility] [address] , ,[place] [address] NON PIPE LINER CYTOLOGY REQ FOR SERVI Reviewed date:11/11/2020 14:26:48 Interpretation: Performing Lab:[facility] [address] [facility] [address] , ,[place] [address] URINE REASON FOR VISIT bladder wall thickening MEDICAL (GENERAL) HISTORY Type Description Date Medical [...] Hospitalization History fluid retention 10/2012 Hospitalization History [facility], Pneumonia 05/17/14- 05/24/14 Hospitalization History [facility], Gout 06/11/14-06/22/14 Hospitalization History fall from shower 04/2016 Hospitalization History [place] - abn/labs 03/2019 Hospitalization History Low Hemoglobin - [facility] 05/05/20-05/16/20 Hospitalization History Spontaneous Bacterial Peratinitis -10/05/2020 Goals Section No Information Health Concerns No Information MEDICAL EQUIPMENT No Information MENTAL STATUS No Information FUNCTIONAL STATUS No Information ASSESSMENTS Encounter Date Diagnosis Assessment Notes Treatment Notes Treatm ent Clinical Notes Oct, Lesion of bladder (ICD-10 - N32.9) Oct, Chronic kidney disease, unspecified CKD stage (I CD-10 - N18.9) Oct, Bilateral renal cysts (ICD-10 - N28.1) Oct, Atrophic kidney (ICD-10 - N26.1) PLAN OF TREATMENT Treatment Notes Test Name Order Date CBC - Complete Blood Count 2020-11-10 Comprehensive Metabolic Profile (CMP) 2020-11-10 URINE CULTURE 2020-11-10 Electrocardiogram (EKG) 2020-11-10 [facility] Chest, 2 view (PA\Lat) 2020-11-10 Next Appt Details Local cystoscopy Reason:Bladder lesion Provider Name:China Bejarano, 10:00:00 AM, [address] [facility], , [place], [address], Follow Up:Local cystoscopyBladder lesion Insurance Providers Payer Name Payer Address Payer Phone Insured Name Patient Relati onship to Insured Coverage Start Date Coverage End Date MEDICARE Part A and B [address] [facility] [id number] [place] [facility] [address] [facility] [id number] F [place] MARK self
--- OUTSIDE RECORDS SUMMARY | 2020-12-27 09:56 | CCD | Continuity of Care Document ---
Author Author Leland DURÁN MD Organization Unknown Address [address] [place] [address], [place] [address] Phone [phone] Care Team Providers Care Transportation Broker Name Role Phone Yunior Chin MD AUTM [phone] Dania ErazoC AUTM [phone] Hilda Jensen AUTM [phone] Dell Dawkins DO AUTM [phone] Dontae Patricio DPMaulik AUTM [phone] Mery Bowser MD AUTM [phone] Dell Tom MD AUTM [phone] China BejaranoP AUTM [phone] Nelida Sylvester MD AUTM [phone] Balaji Rodriguez MD AUTM [phone] Problems Active Problems Provider Date Chronic diastolic [...] Exercise Type/Frequency Does housework twice a w [place] Exercise Limitations Back Pain Exercise Limitations Joint [...] Tablets 6 po da mora Rohan Santana [employer] 03/14/2010 Allopurinol 100mg Tablets 1 by mouth [...] 30.3 Low 42.0-52.0 Laboratory test finding 05/05/2020 [facility] [phone] Non Patient Care Manager/Cytology Req For Servi (SEE NOTE) 1 TP Body Fluid 05/05/2020 [facility] nter [phone] Total Protein, Body Fluid 0.7 g/dL Normal Not Es tablished Source, Body Fluid Tot Protein ASCITES Normal Glucose Body Fluid 05/05/2020 [facility] nter [phone] Glucose, Body Fluid 146 mg/dL Normal Not Establis hed Source, Body Fluid Glucose ASCITES Normal Body Fluid Culture And GS 05/05/2020 [facility] [phone] Gram Stain (SEE NOTE) Normal 2 Body Fluid Culture <SEE NOTE> 3 CBC With Differential 05/05/2020 [facility] [phone] White Blood Count 13.1 10 High 4.0-10.0 [...] 36.0-66.0 Lymph % 8.0 % Low 24.0-44.0 [place] % 8.0 % Normal 2.0-8.0 Eos % 1.9 % Normal 0.0-3.0 Baso % 0.3 % Normal 0.0-1.0 Immature Granulocyte % 0.6 % Normal 0-3.0 Nucleated Red Blood Cell % 0.2 % High 0-0 Neutrophils # 10.7 10 High 1.5-8.5 Lymph # 1.1 10 Low 1.5-5.0 [place] # 1.1 10 High 0.0-0.8 Eos # 0.3 10 Normal 0.0-0.5 Baso # 0.0 10 Normal 0.0-0.2 Prothrombin Time/Inr 05/05/2020 [facility] enter [phone] Prothrombin Time 15.4 seconds High 12.5-14.3 Inr 1.19 Normal 4 Basic Metabolic Profile 05/05/2020 [facility] [phone] Glucose, Fasting 112 mg/dL High 70-100 Blood [...] mg/dL Low 8.8-10.2 Laboratory test finding 05/05/2020 [facility] [phone] Pathology Request For Service (SEE NOTE) 6 [...] Little GFR Left ESRD GFR <15 on SHEETROCK APPLICATOR 6 FINAL DIAGNOSIS Ascites fluid, cell block: No malignant cells identified. Reactive mesothelial cells and predominantly lymphocytic background. 05/06/2020 - 850 CLINICAL DIAGNOSIS Ascites fluid 05/06/2020727 GROSS DIAGNOSIS Received 1,200 ml of yellow ascites fluid for cell block. -SV 05/06/2020727 Signed DALTON CHAU MD 05/06/2020 0851 Procedures Date Code Description Status 10/12/2020 48592 Office/Outpatient Established Lo w MDM 20-29 Min Completed 09/21/2020 63687 Complex Chronic Care MGMT Servic e Ea Addl 30 Min Completed 09/21/2020 08633 Complex Chronic Care Management SVC 1St 60 Min Completed 08/18/2020 11907 Chronic Care MGMT 20 Mins Clinical Staff Time Per Calendar Month Completed 08/18/2020 67821 Chronic Care Management Services Ea Addl 20 Min Completed 07/11/2020 76601 Office/Outpatient Established SF MDM 10-19 Min Completed 07/06/2020 73897 Chronic Care MGMT 20 Mins Clinical Staff Time Per Calendar Month Completed 07/06/2020 57751 Chronic Care Management Services Ea Addl 20 Min Completed 05/27/2020 42069 Chronic Care MGMT 20 Mins Clinical Staff Time Per Calendar Month Completed 05/27/2020 63658 Chronic Care Management Services Ea Addl 20 Min Completed 05/19/2020 67196 Office/Outpatient Established Mo d MDM 30-39 Min Completed 05/19/2020 20847 ECG 12-Lead Completed 05/18/2020 31665 Complex Chronic Care MGMT Servic e Ea Addl 30 Min Completed 05/18/2020 76953 Complex Chronic Care Management SVC 1St 60 [...] heart failure I11.0 Hypertensive heart disease w [facility] heart failure Office Visit 07/11/2020 12:45p Main Office Dania Erazo PA-C I50.3 2 Chronic diastolic (congestive) heart failure Office Visit 07/06/2020 3:27p Main Office Dell Durán MD I50.3 2 Chronic diastolic (congestive) heart failure I11.0 Hypertensive heart disease w [facility] heart failure Office Visit 05/27/2020 1:00p Main Office Dell Durán MD I50.3 2 Chronic diastolic (congestive) heart failure I11.0 Hypertensive heart disease w [facility] heart failure Office Visit 05/19/2020 12:30p Main Office Dania Erazo PA-C I50.3 2 Chronic diastolic (congestive) heart failure I11.0 Hypertensive heart disease w [facility] heart failure I27.81 Cor pulmonale [...] heart failure I11.0 Hypertensive heart disease w [facility] heart failure I48.21 Permanent atrial fibrillatio n [...] Z71.3 Dietary counseling and surveilla nce Dania Erazo, PA-C 05/18/2020 I50.32 Chronic diastolic (congestive) [...]
--- OUTSIDE RECORDS SUMMARY | 2020-12-27 09:56 | CCD | Continuity of Care Document ---
Author Author Leland LUNA PA-C Organization Unknown Address [address] [place] [address], [place] [address] Phone [phone] Care Team Providers Care Clinical Nursing Intern Name Role Phone Yunior Chin MD AUTM [phone] Dania Luna PA-C AUTM [phone] Hilda Jensen AUTM [phone] Dell Dawkins DO AUTM [phone] Dontae Patricio DP AUTM [phone] Mery Bowser MD AUTM [phone] Dell Tom MD AUTM [phone] China BejaranoP AUTM [phone] Nelida Sylvester MD AUTM [phone] Balaji Rodriguez MD AUTM [phone] Problems Active Problems Provider Date Chronic diastolic [...] Dania Luna PA-C Onset: 01/17/2011 Obesity Dania Luna PA-C 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 Dania [...] Exercise Type/Frequency Does housework twice a w [place] Exercise Limitations Back Pain Exercise Limitations Joint [...] Tablets 6 po da mora Rohan Santana [facility] 03/14/2010 Allopurinol 100mg Tablets 1 by mouth [...] 6'2" BMI (Body Mass Index) 30.0 kg/m2 07/11/2020 12:42pm Weight 244.00 lb Home Weight [...] 172-450 Hemoglobin 9.1 Hematocrit 32.4 CMP 10/05/2020 [facility] - not interfaced (315)- - Albumin [...] 30.3 Low 42.0-52.0 Laboratory test finding 05/05/2020 [facility] [phone] Non Sales And Marketing Executive/Cytology Req For Servi (SEE NOTE) 1 TP Body Fluid 05/05/2020 [facility] nter [phone] Total Protein, Body Fluid 0.7 g/dL Normal Not Es tablished Source, Body Fluid Tot Protein ASCITES Normal Glucose Body Fluid 05/05/2020 [facility] Ce nter [phone] Glucose, Body Fluid 146 mg/dL Normal Not Establis hed Source, Body Fluid Glucose ASCITES Normal Body Fluid Culture And GS 05/05/2020 [facility] [phone] Gram Stain (SEE NOTE) Normal 2 Body Fluid Culture <SEE NOTE> 3 CBC With Differential 05/05/2020 [facility] [phone] White Blood Count 13.1 10 High 4.0-10.0 [...] 36.0-66.0 Lymph % 8.0 % Low 24.0-44.0 [place] % 8.0 % Normal 2.0-8.0 Eos % 1.9 % Normal 0.0-3.0 Baso % 0.3 % Normal 0.0-1.0 Immature Granulocyte % 0.6 % Normal 0-3.0 Nucleated Red Blood Cell % 0.2 % High 0-0 Neutrophils # 10.7 10 High 1.5-8.5 Lymph # 1.1 10 Low 1.5-5.0 [place] # 1.1 10 High 0.0-0.8 Eos # 0.3 10 Normal 0.0-0.5 Baso # 0.0 10 Normal 0.0-0.2 Prothrombin Time/Inr 05/05/2020 [facility] enter [phone] Prothrombin Time 15.4 seconds High 12.5-14.3 Inr 1.19 Normal 4 Basic Metabolic Profile 05/05/2020 [facility] [phone] Glucose, Fasting 112 mg/dL High 70-100 Blood [...] mg/dL Low 8.8-10.2 Laboratory test finding 05/05/2020 [facility] [phone] Pathology Request For Service (SEE NOTE) 6 [...] Little GFR Left ESRD GFR <15 on PACKAGING TECH 6 FINAL DIAGNOSIS Ascites fluid, cell block: No malignant cells identified. Reactive mesothelial cells and predominantly lymphocytic background. 05/06/2020 - 850 CLINICAL DIAGNOSIS Ascites fluid 05/06/2020727 GROSS DIAGNOSIS Received 1,200 ml of yellow ascites fluid for cell block. -SV 05/06/2020 - 727 Signed DALTON CHAU MD 05/06/2020 0851 Procedures Date Code Description Status 10/12/2020 97309 Office/Outpatient Established Lo w MDM 20-29 Min Completed 08/18/2020 73961 Chronic Care MGMT 20 Mins Clinical Staff Time Per Calendar Month Completed 08/18/2020 25964 Chronic Care Management Services Ea Addl 20 Min Completed 07/11/2020 52546 Office/Outpatient Established SF MDM 10-19 Min Completed 07/06/2020 51715 Chronic Care MGMT 20 Mins Clinical Staff Time Per Calendar Month Completed 07/06/2020 79052 Chronic Care Management Services Ea Addl 20 Min Completed 05/27/2020 69841 Chronic Care MGMT 20 Mins Clinical Staff Time Per Calendar Month Completed 05/27/2020 84625 Chronic Care Management Services Ea Addl 20 Min Completed 05/19/2020 91730 Office/Outpatient Established Mo d MDM 30-39 Min Completed 05/19/2020 86304 ECG 12-Lead Completed 05/18/2020 25324 Complex Chronic Care MGMT Servic e Ea Addl 30 Min Completed 05/18/2020 00430 Complex Chronic Care Management SVC 1St 60 Min Completed 04/19/2020 22741 Complex Chronic Care MGMT Servic e Ea Addl 30 Min Completed 04/19/2020 96756 Complex Chronic Care Management SVC 1St 60 Min Completed 04/18/2020 12246 Office/Outpatient Established Lo w MDM 20-29 Min Completed Medical Devices Description No Information Available Encounters Type Date Location Provider Dx Diagnosis Office Visit 10/12/2020 12:45p Main Office Dania Luna PA-C I50.3 2 Chronic diastolic (congestive) heart failure Office Visit 08/18/2020 9:33a Main Office Dell Durán MD I50.3 2 Chronic diastolic (congestive) heart failure I11.0 Hypertensive heart disease w ith heart failure Office Visit 07/11/2020 12:45p Main Office Dania Luna PA-C I50.3 2 Chronic diastolic (congestive) heart failure Office Visit 07/06/2020 3:27p Main Office Dell Durán MD I50.3 2 Chronic diastolic (congestive) heart failure I11.0 Hypertensive heart disease w ith heart failure Office Visit 05/27/2020 1:00p Main Office Dell Durán MD I50.3 2 Chronic diastolic (congestive) heart failure I11.0 Hypertensive heart disease w ith heart failure Office Visit 05/19/2020 12:30p Main Office Dania Luna PA-C I50.3 2 Chronic diastolic (congestive) heart failure I11.0 Hypertensive heart disease w ith heart failure I27.81 Cor pulmonale (chronic) K76.1 [...] Office Visit 04/18/2020 12:45p Main Office Dania Luna PA-C K76.1 Chronic passive congestion of liver I27.81 Cor pulmonale (chronic) Assessments Date Code Description Provider 10/12/2020 I50.32 Chronic diastolic (congestive) h eart failure EFREM FitzgeraldC 08/18/2020 I50.32 Chronic diastolic (congestive) h eart [...] Chronic diastolic (congestive) h eart failure Dania Luna PA-C 05/19/2020 I11.0 Hypertensive heart disease with heart failure Dania Luna PA-C 05/19/2020 I27.81 Cor pulmonale (chronic) SHALONDA Albrecht-C 05/19/2020 K76.1 Chronic passive congestion of li [...] Z71.3 Dietary counseling and surveilla nce Dania Luna, PA-C 05/18/2020 I50.32 Chronic diastolic (congestive) h [...] Nelida Sylvester MD consideration for paracentesis Closed [facility] Interventional Radiology [address] [place] [address] [phone]
--- OUTSIDE RECORDS SUMMARY | 2020-12-27 09:57 | CCD ---
Author Author [facility] Organization [facility] Address Unknown Phone Unavailable Care Team Providers Care Delivery Engineer Name Role Phone China Bejarano Unavailable PROBLEMS Type Condition ICD9-CM Code WNY41-AV Code Onset Dates Condition S tatus W/U Status Risk SNOMED Code Notes Problem Varicocele I86.1 Active confirmed 18434040 Problem Psoriasis L40.9 Active confirmed 0938409 Problem Idiopathic esophageal varices with bleeding I85.01 Active confirmed 03940293 Problem Hydrocele N43.3 Active confirmed 469384604 Problem Acquired hypothyroidism E03.9 Active confirmed 966131545 Problem Ybarra's esophagus with low grade dysplasia K22.7 10 Active confirmed 5803415971304102 Problem Chronic diastolic heart failure I50.32 Active confi rmed 694688927 Problem prison (current) use of insulin Z79.4 Activ e confirmed 500585233 Problem Idiopathic chronic gout of foot without tophus, 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 Active confirmed 89921823 Problem Type 2 diabetes mellitus without complications E11 .9 Active confirmed 761059912 Problem Venous stasis dermatitis of both lower extremities I87.2 Active confirmed 83912651 Problem Gastroesophageal reflux dise ase, unspecified whether esophagitis present K21.9 Active confirmed 353057024 Problem Atrial fibrillation, unspecified type I48.91 Ac tive confirmed 83225277 Problem Diabetes mellitus without me ntion of complication, type II or unspecified type, not stated as uncontrolled 250.00 Activ e confirmed 289488429 Problem Bladder wall thickening N32.89 Active confirmed 957668813 Problem Chronic obstructive pulmonary disease, unspecified COPD ty pe J44.9 Active confirmed 14700977 Problem 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.0720 Active confirmed 072810903428694 Problem Unspecified cirrhosis of liver K74.60 Active confir med 628536011 Problem Secondary esophageal varices with bleeding I85.11 Active confirmed 82902218 Problem GALAVIZ (nonalcoholic steatohepatitis) K75.81 Acti ve confirmed 062224963 ALLERGIES Allergen (clinical drug ingredient) Drug/Non Drug Allergy do cumented on EMR Reaction Allergy Type Onset Date Status atorvastatin Lipitor([facility] Code:[address]-66) elevated LFT's Drug Doug rgy Active ciprofloxacin Cipro([facility] Code:[address]-37) Nausea/Vomiting Drug Doug rgy Active valsartan Diovan([facility] Code:[address]-84) Unknown Drug Allergy Active Quinolones quinolones Rash Non Drug Allergy Active bumetanide Bumex([facility] Code:[address]-09) Unknown Drug Allergy Active ENCOUNTERS from 1945 to 2020-10-11 Encounter Location Date Provider Diagnosis [place] [address] [facility] [phone] [place] [address] Sep, China Bejarano IMMUNIZATIONS Vaccine Route Administration Date Status Pneumococcal Adult 0.5mL Pneumovax 23 IM Intramuscular September 13, 2020 Administered SOCIAL HISTORY Tobacco Use: Social History Observation Description Date Details (start date - stop date) Former Smoker Sex Assigned At : Social History Observation Description Sex Assigned At Unknown Education: Question Answer Notes Level of Education: High School Language: Question Answer Notes Languages spoken: Malay Holiness: Question Answer Notes Holiness 13 Gnosticist Sexual Hx: Question Answer Notes Had sex [...] 50 UNITS PER DAY Subcutaneous Not-Taking Pen [place] 32G X 4 MM as directed six times daily for 90 da y(s) premier value ICD-10: E11.9 Apr, Not-Taking Protonix 40 MG 1 tablet Orally Once a day Active Glucosamine MSM Complex - 1 tablet with meals Orally BID Active Vitamin C 1000 MG 1 tablet Orally Once a day for 30 day(s) Active Levemir FlexTouch 100 UNIT/ML 40 Units Subcutaneous BID Active Omeprazole 40 mg 1 capsule Orally daily Not-Taking NovoLOG FlexPen 100 UNIT/ML 1 dose Subcutaneous before meals per sliding scale Active Clotrimazole-Betamethasone 1-0.05 % 1 application Exte rnally Twice a day to areas on legs and feet with rash Not-Taking Welchol 625 MG 3 tablets with meals Orally Twice a day Active Torsemide 100 MG 1/2 tablet Orally bid Active Eliquis 2.5 MG 1 tab Oral bid Active Spironolactone 25 mg 1 tab Orally bid Active Valtrex 1 GM 1 tablet Orally three times a day for 7 days June, Active Vitamin D 50 MCG (1999 UT) 1 capsule Orally Once a day Active Colesevelam HCl 625 MG 3 tablets with meals Orally Twice a d ay for 90 day(s) [facility] Feb, Not-Taking Prevagen 10 MG as directed Orally Once a day Active Centrum Adults 1 1 tablet Orally Daily Active Ferrous Gluconate 324 (38 Fe) MG TAKE ONE TABLET BY [facility] TWICE A DAY Oral for 90 Not-Taking PreserVision AREDS - as directed Orally Once a day BID Not-Taking Pantoprazole Sodium 40 MG 1 tablet Orally Once a day for 30 day( s) May, Not-Taking Midodrine HCl 5 MG 1 tablet Orally Three times a day Active Ocuvite Adult Formula - 1 tab Orally Daily Not-Taking Levothyroxine Sodium 175 MCG 1 tablet in the morning o n an empty stomach Oral Daily for 90 days Active Allopurinol 100 MG 1 tablet Orally [...] (requesting freestyle lite if covered) Feb, Active Ascorbic Acid 500 MG 1 tablet Orally Once a day Vit C Not-Taking Colesevelam HCl 625 MG 3 tablets with meals Orally Once a day Not-Taking Pantoprazole Sodium 40 MG 1 tablet Oral Once a day for 90 day(s) Not-Taking PreserVision AREDS - 1 cap Orally BID Active PROCEDURES No Information RESULTS No Results REASON FOR VISIT eClinicalMobile: ePrescription MEDICAL (GENERAL) HISTORY Type Description Date Medical [...] History fall from shower 04/2016 Hospitalization History [place] - abn/labs 03/2019 Hospitalization History Low Hemoglobin [...] 7 days June, Next Appt Details Provider Name:China Bejarano, 10:00:00 AM, [address] [facility], , [place], [address], Insurance Providers Payer Name Payer Address Payer Phone Insured Name Patient Relati onship to Insured Coverage Start Date Coverage End Date MEDICARE Part A and B [address] [facility] [phone] [place] [facility] [address] [facility] [id number] [place] MARK self
--- OUTSIDE RECORDS SUMMARY | 2020-12-27 09:57 | CCD | Continuity of Care Document ---
Author Author Leland DURÁN MD Organization Unknown Address [address] [place] [address], [place] [address] Phone [phone] Care Team Providers Care Form Building Supervisor Name Role Phone Yunior Chin MD AUTM [phone] Dania ErazoC AUTM [phone] Hilda Jensen AUTM [phone] Dell Dawkins DO AUTM [phone] Dontae Patricio DPMaulik AUTM [phone] Mery Bwoser MD AUTM [phone] Dell Tom MD AUTM [phone] China BejaranoP AUTM [phone] Nelida Sylvester MD AUTM [phone] Balaji Rodriguez MD AUTM [phone] Problems Active Problems Provider Date Chronic diastolic [...] age 13, quit 2007 Smoking Status Reviewed: 07/11/20 Patient is a former smoker up to 3ppd, from age 13, quit 2007 Exercise Type/Frequency Bikes daily 10-15 mi nutes at a time on stationary bike Exercise Type/Frequency Walks sporadically Exercise Type/Frequency Does housework twice a w [place] Exercise Limitations Back Pain Exercise Limitations Joint Pain Exercise Limitations Joint Swelling Exercise Limitations Orthopedic Problem Allergies, Adverse Reactions, Alerts Active Allergies Reaction Severity Comments Date Lipitor Elevated LFT's elevated LFTs 03/14/2010 Quinolones Rash rash 01/07/2012 Diovan Dizziness and weakness dizziness and weak ness 10/22/2013 Bumex Caused severe Gout and depre ssion 09/04/2018 Inactive Allergies NKDA 05/22/2006 Medications Active Medications SIG Qnty Indications Ordering Provide r Date Torsemide 100mg Tablets 1/2 by mouth twice a day hold for SBP < 90 Dontae Wyman MD 07/10 Midodrine HCL 5mg Tablets 1 P O q8h Balaji Rodriguez MD 05/25/[address] 1 po daily China Bejarano FNP 05/18/2020 Spironolactone 25mg Tablets 1 by mouth twice a day, hold for SBP < 106 Glen Rodriguez MD 05/18/2020 Prevagen Extra Strength 20mg Capsu les [...] 1500Com Capsules 1 po qd Rohan Santana BLOOD BANK BOOKING CLERK 2010 Welchol 625mg Tablets 6 po da mora Rohan Santana BLOOD BANK BOOKING CLERK 03/14/2010 Allopurinol 100mg Tablets 1 by mouth every day Dontae Patricio DPM History Medications Torsemide 100mg Tablets 1/2 by mouth twice a day hold for SBP < 106 Balaji Rodriguez M D 05/18/2020 - 07/10/2020 Torsemide 20mg Tablets 3 po qam, 3 po qhs Dontae Wyman MD 04/11/2020 - 021 Immunizations Description No Information Available Vital Signs Date Vital Result Comment 07/11/2020 12:42pm Weight 244.00 lb Home Weight 241lb Height 74 inches 6'2" BMI (Body Mass Index) 31.3 kg/m2 Heart Rate 76 /min 106Irregular Respiratory Rate 16 /min BP Systolic Right Arm 106 mmHg sitting, regular c uff BP Diastolic Right Arm 60 mmHg sitting, regular cuff 05/19/2020 12:52pm Weight 252.00 lb Home Weight 247lb Height 74 inches 6'2" BMI (Body Mass Index) 32.4 kg/m2 Heart Rate 64 /min Irregular Respiratory Rate 16 /min BP Systolic Right Arm 110 mmHg sitting, regular c uff BP Diastolic Right Arm 60 mmHg sitting, regular cuff BP Systolic Left Arm 106 mmHg sitting BP Diastolic Left Arm 60 mmHg sitting Results Test Acquired Date Facility Test Result H/L Range Note CMP 09/05/2020 [facility] (315)- - Albumin [...] 30.3 Low 42.0-52.0 Laboratory test finding 05/05/2020 [facility] [phone] Non Case Aide/Cytology Req For Servi (SEE NOTE) 1 TP Body Fluid 05/05/2020 [facility] [phone] Total Protein, Body Fluid 0.7 g/dL Normal Not Es tablished Source, Body Fluid Tot Protein ASCITES Normal Glucose Body Fluid 05/05/2020 [facility] [phone] Glucose, Body Fluid 146 mg/dL Normal Not Establis hed Source, Body Fluid Glucose ASCITES Normal Body Fluid Culture And GS 05/05/2020 [facility] [phone] Gram Stain (SEE NOTE) Normal 2 Body Fluid Culture <SEE NOTE> 3 CBC With Differential 05/05/2020 [facility] [phone] White Blood Count 13.1 10 High 4.0-10.0 [...] 36.0-66.0 Lymph % 8.0 % Low 24.0-44.0 [place] % 8.0 % Normal 2.0-8.0 Eos % 1.9 % Normal 0.0-3.0 Baso % 0.3 % Normal 0.0-1.0 Immature Granulocyte % 0.6 % Normal 0-3.0 Nucleated Red Blood Cell % 0.2 % High 0-0 Neutrophils # 10.7 10 High 1.5-8.5 Lymph # 1.1 10 Low 1.5-5.0 [place] # 1.1 10 High 0.0-0.8 Eos # 0.3 10 Normal 0.0-0.5 Baso # 0.0 10 Normal 0.0-0.2 Prothrombin Time/Inr 05/05/2020 [facility] [phone] Prothrombin Time 15.4 seconds High 12.5-14.3 Inr 1.19 Normal 4 Basic Metabolic Profile 05/05/2020 [facility] [phone] Glucose, Fasting 112 mg/dL High 70-100 Blood [...] mg/dL Low 8.8-10.2 Laboratory test finding 05/05/2020 [facility] [phone] Pathology Request For Service (SEE NOTE) 6 BMP W/Egfr 04/13/2020 [facility] nter [phone] Glucose, Fasting 142 mg/dL High 70-100 Blood Urea Nitrogen 55 mg/dL High 7-18 Creatinine For GFR 2.01 mg/dL High 0.70-1.30 Glomerular Filtration Rate 34.7 Low >42 7 Sodium Level 141 mEq/L Normal 136-145 Potassium Serum 4.4 mEq/L Normal 3.5-5.1 Chloride Level 107 mEq/L Normal 98-107 Carbon Dioxide Level 25 mEq/L Normal 21-32 Anion Gap 9 mEq/L Normal 8-16 Calcium Level 8.8 mg/dL Normal 8.8-10.2 1 SPECIMEN: Periton eal fluid 1200 ml cloudy yellow SPECIMEN ADEQUACY: Satisfactory for evaluation CATEGORIZATION: No Malignancy identified DESCRIPTIONS: Specimen consists of mesothelial cells in a background of blood elements. COMMENTS: 05/06/2020 - 929 Signed KEYSHA JEROME (ASCP) 05/06/202030 (Prelim) Signed DALTON CHAU MD 05/09/2020 0933 [...] Little GFR Left ESRD GFR <15 on CUSTOM APPLICATOR 6 FINAL DIAGNOSIS Ascites fluid, cell block: No malignant cells identified. Reactive mesothelial cells and predominantly lymphocytic background. 05/06/2020850 CLINICAL DIAGNOSIS Ascites fluid 05/06/2020727 GROSS DIAGNOSIS Received 1,200 ml of yellow ascites fluid for cell block. -SV 05/06/2020 - 727 Signed DALTON CHAU MD 05/06/2020 0851 7 Units are mL/min/1.73 m2 Chronic Kidney Disease Staging per NKF: Stage I & II GFR >=60 Normal to Mildly Decreased Stage III GFR 30-59 Moderately Decreased Stage IV GFR 15-29 Severely Decreased Stage V GFR <15 Very Little GFR Left ESRD GFR <15 on CUSTOM APPLICATOR Procedures Date Code Description Status 08/18/2020 73829 Chronic Care MGMT 20 Mins Clinical Staff Time Per Calendar Month Completed 08/18/2020 43926 Chronic Care Management Services Ea Addl 20 Min Completed 07/11/2020 14452 Office/Outpatient Established SF MDM 10-19 Min Completed 07/06/2020 33014 Chronic Care MGMT 20 Mins Clinical Staff Time Per Calendar Month Completed 07/06/2020 16925 Chronic Care Management Services Ea Addl 20 Min Completed 05/27/2020 90030 Chronic Care MGMT 20 Mins Clinical Staff Time Per Calendar Month Completed 05/27/2020 31264 Chronic Care Management Services Ea Addl 20 Min Completed 05/19/2020 13229 Office/Outpatient Established Mo d MDM 30-39 Min Completed 05/19/2020 30552 ECG 12-Lead Completed 05/18/2020 33552 Complex Chronic Care MGMT Servic e Ea Addl 30 Min Completed 05/18/2020 42847 Complex Chronic Care Management SVC 1St 60 Min Completed 04/19/2020 07692 Complex Chronic Care MGMT Servic e Ea Addl 30 Min Completed 04/19/2020 65734 Complex Chronic Care Management SVC 1St 60 Min Completed 04/18/2020 17189 Office/Outpatient Established Lo w MDM 20-29 Min Completed Medical Devices Description No Information Available Encounters Type Date Location Provider Dx Diagnosis Office Visit 08/18/2020 9:33a Main Office Dell [...] heart failure I11.0 Hypertensive heart disease w [facility] heart failure I48.21 Permanent atrial fibrillatio n I34.0 Nonrheumatic mitral (valve) insufficiency Office Visit 04/19/2020 9:27a Main Office Dell Durán MD E78.2 Mixed hyperlipidemia I34.0 Nonrheumatic mitral (valve) insufficiency I50.32 Chronic diastolic (congestiv e) heart failure I48.21 Permanent atrial fibrillatio n Office Visit 04/18/2020 12:45p Main Office Dania Erazo PA-C K76.1 Chronic passive congestion of liver I27.81 Cor pulmonale (chronic) Assessments Date Code Description Provider 08/18/2020 I50.32 Chronic diastolic (congestive) h eart failure Dell Durán MD 08/18/2020 I11.0 Hypertensive heart disease with heart failure Dell Durán MD 07/11/2020 I50.32 Chronic diastolic (congestive) h eart failure Dania Erazo, PA-C 07/06/2020 I50.32 Chronic diastolic (congestive) h eart failure Dell Durán MD 07/06/2020 I11.0 Hypertensive heart disease with heart failure Dell Durán MD 05/27/2020 I50.32 Chronic diastolic (congestive) h eart failure Dell Durán MD 05/27/2020 I11.0 Hypertensive heart disease with heart failure Dell Durán MD 05/19/2020 I50.32 Chronic diastolic (congestive) h eart failure Dania Erazo, PA-C 05/19/2020 I11.0 Hypertensive heart disease with heart failure Dania Erazo, PA-C 05/19/2020 I27.81 Cor pulmonale (chronic) Dania mancilla, PA-C 05/19/2020 K76.1 Chronic passive congestion of li adryan Dania Carranzaw, PA-C 05/19/2020 I48.21 Permanent atrial fibrillation Miguel Denson, PA-C 05/19/2020 R94.31 Abnormal electrocardiogram [ECG] [EKG] Dania Carranzaw, PA-C 05/19/2020 I34.0 Nonrheumatic mitral (valve) insu fficiency Dania Carranzaw, PA-C 05/19/2020 E78.2 Mixed hyperlipidemia Dania Guajardo now, PA-C 05/19/2020 I44.2 Atrioventricular block, complete Dania Carranzaw, PA-C 05/19/2020 Z95.0 Presence of cardiac pacemaker [...] Durán MD 04/19/2020 I48.21 Permanent atrial fibrillation Da alonzo Durán MD 04/18/2020 K76.1 Chronic passive congestion of li adryan Dania Erazo PA-C 04/18/2020 I27.81 Cor pulmonale (chronic) Dania mancilla PA-C Plan of Treatment Future Appointment(s):* 10/12/2020 12:45 pm - Dania Erazo PA-C at Main Office * 05/23/2021 11:15 am - Dania Erazo PA-C at Main Office 07/11/2020 - Dania Erazo PA-C* I50.32 Chronic diastolic (congestive) heart failure* Recommendations:* Follow a 2 grams sodium diet and 50 ounces fluid restriction per 24 hour and do daily weights. Call the office for weight gain of 3 lbs or more. * All * Follow up:* 3 month CV/CHF check. Request office note and labs from Dr. Rodriguez from last week. Functional Status Functional Condition Comment Date Status Independent with all ADL's Activ e Requires assistance with ambulating with cane Active Mental Status Description No Information Available Referrals Refer to Dr Reason for Referral Status Appt Date Nelida Sylvester MD consideration for paracentesis Closed [facility] Interventional Radiology [address], [place] [address] [phone]
--- OUTSIDE RECORDS SUMMARY | 2020-12-27 09:57 | CCD | Continuity of Care Document ---
Author Author Leland DURÁN MD Organization Unknown Address [address] [place] [address], [place] [address] Phone [phone] Care Team Providers Care White Kid Buffer Name Role Phone Yunior Chin MD AUTM [phone] Dania ErazoC AUTM [phone] Hilda Jensen AUTM [phone] Dell Dawkins DO AUTM [phone] Dontae Patricio DPMaulik AUTM [phone] Mery Bowser MD AUTM [phone] Dell Tom MD AUTM [phone] China BejaranoP AUTM [phone] Nelida Sylvester MD AUTM [phone] Balaji Rodriguez MD AUTM [phone] Problems Active Problems Provider Date Chronic diastolic [...] Exercise Type/Frequency Does housework twice a w [place] Exercise Limitations Back Pain Exercise Limitations Joint [...] 1500Com Capsules 1 po qd Rohan Santana MANAGER ERP 2010 Welchol 625mg Tablets 6 po da mora Rohan Santana MANAGER ERP 03/14/2010 Allopurinol 100mg Tablets 1 by mouth [...] 30.3 Low 42.0-52.0 Laboratory test finding 05/05/2020 [facility] [phone] Non Laborer Adjustable Steel Joist/Cytology Req For Servi (SEE NOTE) 1 TP Body Fluid 05/05/2020 [facility] [phone] Total Protein, Body Fluid 0.7 g/dL Normal Not Es tablished Source, Body Fluid Tot Protein ASCITES Normal Glucose Body Fluid 05/05/2020 [facility] [phone] Glucose, Body Fluid 146 mg/dL Normal Not Establis hed Source, Body Fluid Glucose ASCITES Normal Body Fluid Culture And GS 05/05/2020 [facility] [phone] Gram Stain (SEE NOTE) Normal 2 Body Fluid Culture <SEE NOTE> 3 CBC With Differential 05/05/2020 [facility] [phone] White Blood Count 13.1 10 High 4.0-10.0 [...] 36.0-66.0 Lymph % 8.0 % Low 24.0-44.0 [place] % 8.0 % Normal 2.0-8.0 Eos % 1.9 % Normal 0.0-3.0 Baso % 0.3 % Normal 0.0-1.0 Immature Granulocyte % 0.6 % Normal 0-3.0 Nucleated Red Blood Cell % 0.2 % High 0-0 Neutrophils # 10.7 10 High 1.5-8.5 Lymph # 1.1 10 Low 1.5-5.0 [place] # 1.1 10 High 0.0-0.8 Eos # 0.3 10 Normal 0.0-0.5 Baso # 0.0 10 Normal 0.0-0.2 Prothrombin Time/Inr 05/05/2020 [facility] [phone] Prothrombin Time 15.4 seconds High 12.5-14.3 Inr 1.19 Normal 4 Basic Metabolic Profile 05/05/2020 [facility] [phone] Glucose, Fasting 112 mg/dL High 70-100 Blood [...] mg/dL Low 8.8-10.2 Laboratory test finding 05/05/2020 [facility] [phone] Pathology Request For Service (SEE NOTE) 6 BMP W/Egfr 04/13/2020 [facility] nter [phone] Glucose, Fasting 142 mg/dL High 70-100 Blood [...] Little GFR Left ESRD GFR <15 on FLASK HANDLER 6 FINAL DIAGNOSIS Ascites fluid, cell block: [...] Little GFR Left ESRD GFR <15 on FLASK HANDLER Procedures Date Code Description Status 08/18/2020 65492 Chronic Care MGMT 20 Mins Clinical Staff Time Per Calendar Month Completed 08/18/2020 28347 Chronic Care Management Services Ea Addl 20 Min Completed 07/11/2020 93791 Office/Outpatient Established SF MDM 10-19 Min Completed 07/06/2020 79684 Chronic Care MGMT 20 Mins Clinical Staff Time Per Calendar Month Completed 07/06/2020 55802 Chronic Care Management Services Ea Addl 20 Min Completed 05/27/2020 81796 Chronic Care MGMT 20 Mins Clinical Staff Time Per Calendar Month Completed 05/27/2020 26439 Chronic Care Management Services Ea Addl 20 Min Completed 05/19/2020 61073 Office/Outpatient Established Mo d MDM 30-39 Min Completed 05/19/2020 13374 ECG 12-Lead Completed 05/18/2020 65474 Complex Chronic Care MGMT Servic e Ea Addl 30 Min Completed 05/18/2020 39720 Complex Chronic Care Management SVC 1St 60 Min Completed 04/19/2020 05303 Complex Chronic Care MGMT Servic e Ea Addl 30 Min Completed 04/19/2020 20795 Complex Chronic Care Management SVC 1St 60 Min Completed 04/18/2020 70463 Office/Outpatient Established Lo w MDM 20-29 Min [...] I11.0 Hypertensive heart disease w [facility] heart failure I48.21 Permanent atrial [...] Nelida Sylvester MD consideration for paracentesis Closed [facility] Interventional Radiology [address] [place], [place] [address] [phone]
--- OUTSIDE RECORDS SUMMARY | 2020-12-27 09:57 | CCD | Continuity of Care Document ---
Author Organization Unknown Address Unknown Phone Unavailable Care Team Providers Care Almond Grinder Name Role Phone Yunior Chin MD AUTM [phone] Dania Erazo PA-C AUTM [phone] Hilda Jensen AUTM [phone] Dell Dawkins DO AUTM [phone] Dontae Patricio DP AUTM [phone] Mery Bowser MD AUTM [phone] Dell Tom MD AUTM [phone] China BejaranoP AUTM [phone] Nelida Sylvester MD AUTM [phone] Balaji Rodriguez MD AUTM [phone] Problems Active Problems Provider Date Chronic diastolic [...] Exercise Type/Frequency Does housework twice a w [place] Exercise Limitations Back Pain Exercise Limitations Joint [...] 40mg Tablets DR 1 po daily China Bejarano, PATRICIA 05/18/2020 Spironolactone 25mg Tablets 1 by mouth [...] s 1 by mouth every day Destin Thomas, MAUREEN-C 02/25 Vitamin D 2000Unit Tablets 1 po [...] H/L Range Note CBC without Differential 10/05/2020 [facility] - not inter faced (315)- - [...] Low 42.0-52.0 Laboratory test finding 05/05/2020 [facility] [phone] Non Risk Management Manager/Cytology Req For Servi (SEE NOTE) 1 TP Body Fluid 05/05/2020 [facility] nter [phone] Total Protein, Body Fluid 0.7 g/dL Normal Not Es tablished Source, Body Fluid Tot Protein ASCITES Normal Glucose Body Fluid 05/05/2020 [facility] nter [phone] Glucose, Body Fluid 146 mg/dL Normal Not Establis hed Source, Body Fluid Glucose ASCITES Normal Body Fluid Culture And GS 05/05/2020 [facility] [phone] Gram Stain (SEE NOTE) Normal 2 Body Fluid Culture <SEE NOTE> 3 CBC With Differential 05/05/2020 [facility] [phone] White Blood Count 13.1 10 High 4.0-10.0 [...] 36.0-66.0 Lymph % 8.0 % Low 24.0-44.0 [place] % 8.0 % Normal 2.0-8.0 Eos % 1.9 % Normal 0.0-3.0 Baso % 0.3 % Normal 0.0-1.0 Immature Granulocyte % 0.6 % Normal 0-3.0 Nucleated Red Blood Cell % 0.2 % High 0-0 Neutrophils # 10.7 10 High 1.5-8.5 Lymph # 1.1 10 Low 1.5-5.0 [place] # 1.1 10 High 0.0-0.8 Eos # 0.3 10 Normal 0.0-0.5 Baso # 0.0 10 Normal 0.0-0.2 Prothrombin Time/Inr 05/05/2020 [facility] enter [phone] Prothrombin Time 15.4 seconds High 12.5-14.3 Inr 1.19 Normal 4 Basic Metabolic Profile 05/05/2020 [facility] [phone] Glucose, Fasting 112 mg/dL High 70-100 Blood [...] Low 8.8-10.2 Laboratory test finding 05/05/2020 [facility] [phone] Pathology Request For Service (SEE NOTE) 6 BMP W/Egfr 04/13/2020 [facility] nter [phone] Glucose, Fasting 142 mg/dL High 70-100 Blood [...] in a background of blood elements. COMMENTS: 05/06/2020929 Signed KEYSHA JEROME (ASCP) 05/06/2020 09 (Prelim) [...] Little GFR Left ESRD GFR <15 on [facility] 6 FINAL DIAGNOSIS Ascites fluid, cell block: [...] Little GFR Left ESRD GFR <15 on [facility] Procedures Date Code Description Status 08/18/2020 14472 Chronic Care MGMT 20 Mins Clinical Staff Time Per Calendar Month Completed 08/18/2020 94497 Chronic Care Management Services Ea Addl 20 Min Completed 07/11/2020 50619 Office/Outpatient Established SF MDM 10-19 Min Completed 07/06/2020 69156 Chronic Care MGMT 20 Mins Clinical Staff Time Per Calendar Month Completed 07/06/2020 26075 Chronic Care Management Services Ea Addl 20 Min Completed 05/27/2020 25235 Chronic Care MGMT 20 Mins Clinical Staff Time Per Calendar Month Completed 05/27/2020 00305 Chronic Care Management Services Ea Addl 20 Min Completed 05/19/2020 94023 Office/Outpatient Established Mo d MDM 30-39 Min Completed 05/19/2020 62385 ECG 12-Lead Completed 05/18/2020 90888 Complex Chronic Care MGMT Servic e Ea Addl 30 Min Completed 05/18/2020 53246 Complex Chronic Care Management SVC 1St 60 Min Completed 04/19/2020 33267 Complex Chronic Care MGMT Servic e Ea Addl 30 Min Completed 04/19/2020 61184 Complex Chronic Care Management SVC 1St 60 Min Completed 04/18/2020 94108 Office/Outpatient Established Lo w MDM 20-29 Min Completed Medical Devices Description No Information Available Encounters Type Date Location Provider Dx Diagnosis Office Visit 08/18/2020 9:33a Main Office Dell Durán MD I50.3 2 Chronic diastolic (congestive) heart failure I11.0 Hypertensive heart disease [facility] heart failure Office Visit 07/11/2020 12:45p Main Office Dania Erazo PA-C I50.3 2 Chronic diastolic (congestive) heart failure Office Visit 07/06/2020 3:27p Main Office Dell Durán MD I50.3 2 Chronic diastolic (congestive) heart failure I11.0 Hypertensive heart disease [facility] heart failure Office Visit 05/27/2020 1:00p Main Office Dell Durán MD I50.3 2 Chronic diastolic (congestive) heart failure I11.0 Hypertensive heart disease [facility] heart failure Office Visit 05/19/2020 12:30p Main Office Dania Erazo PA-C I50.3 2 Chronic diastolic (congestive) heart failure I11.0 Hypertensive heart disease w [facility] heart failure I27.81 Cor pulmonale (chronic) K76.1 [...] heart failure I11.0 Hypertensive heart disease [facility] heart failure I48.21 Permanent atrial fibrillatio [...] diastolic (congestive) h eart failure EFREM FitzgeraldC 05/19/2020 I11.0 Hypertensive heart disease with heart failure EFREM FitzgeraldC 05/19/2020 I27.81 Cor pulmonale (chronic) EFREM AlbrechtC 05/19/2020 K76.1 Chronic passive congestion of li adryan EFREM FitzgeraldC 05/19/2020 I48.21 Permanent atrial fibrillation EFREM OlivierC 05/19/2020 R94.31 Abnormal electrocardiogram [ECG] [EKG] EFREM FitzgeraldC 05/19/2020 I34.0 Nonrheumatic mitral (valve) insu fficiency EFREM FitzgeraldC 05/19/2020 E78.2 Mixed hyperlipidemia EFREM BondC 05/19/2020 I44.2 Atrioventricular block, complete Dania Erazo PA-C 05/19/2020 Z95.0 Presence of cardiac pacemaker Miguel Moore ROBERT Erazo 05/19/2020 Z71.3 Dietary counseling and surveilla nce Dania Erazo PA-C 05/18/2020 I50.32 Chronic diastolic (congestive) h [...] Nelida Sylvester MD consideration for paracentesis Closed [facility] Interventional Radiology [address] [id number] [phone]
--- OUTSIDE RECORDS SUMMARY | 2020-12-27 09:59 | CCD ---
Author Author [facility] Organization [facility] Address Unknown Phone Unavailable Care Team Providers Care Form Grader Operator Name Role Phone Merly Daniel MD Unavailable Unavailable Merly Daniel MD Unavailable Unavailable Merly Daniel MD Unavailable Unavailable Merly Daniel MD Unavailable Unavailable Merly Daniel MD Unavailable Unavailable Merly Daniel MD Unavailable Unavailable Merly Daniel MD Unavailable Unavailable Merly Daniel MD Unavailable Unavailable Merly Daniel MD Unavailable Unavailable Merly Daniel MD Unavailable Unavailable Merly Daniel MD Unavailable Unavailable Merly Daniel MD Unavailable Unavailable Merly Daniel MD Unavailable Unavailable Merly Daniel MD Unavailable Unavailable eMrly Daniel MD Unavailable Unavailable Merly Daniel MD Unavailable Unavailable Merly Daniel MD Unavailable Unavailable Merly Daniel MD Unavailable Unavailable Merly Daniel MD Unavailable Unavailable Merly Daniel MD Unavailable Unavailable Merly Daniel MD Unavailable Unavailable Merly Daniel MD Unavailable Unavailable Merly Daniel MD Unavailable Unavailable Merly Daniel MD Unavailable Unavailable Merly Daniel MD Unavailable Unavailable Merly Daniel MD Unavailable Unavailable Merly Daniel MD Unavailable Unavailable Merly Daniel MD Unavailable Unavailable Merly Danile MD Unavailable Unavailable Merly Daniel MD Unavailable Unavailable Merly Daniel MD Unavailable Unavailable Merly Daniel MD Unavailable Unavailable Merly Daniel MD Unavailable Unavailable Merly Daneil MD Unavailable Unavailable Merly Daniel MD Unavailable Unavailable Merly Daniel MD Unavailable Unavailable Merly Daniel MD Unavailable Unavailable Merly Daniel MD Unavailable Unavailable Merly Daniel MD Unavailable Unavailable Merly Daniel MD Unavailable Unavailable Merly Daniel MD Unavailable Unavailable Merly Daniel MD Unavailable Unavailable Merly Daniel MD Unavailable Unavailable Merly Daniel MD Unavailable Unavailable Merly Daniel MD Unavailable Unavailable Merly Daniel MD Unavailable Unavailable Merly Daniel MD Unavailable Unavailable Merly Daniel MD Unavailable Unavailable Merly Daniel MD Unavailable Unavailable Merly Daniel MD Unavailable Unavailable Merly Daniel MD Unavailable Unavailable Merly Daniel MD Unavailable Unavailable Merly Daniel MD Unavailable Unavailable Merly Daniel MD Unavailable Unavailable Merly Daniel MD Unavailable Unavailable Merly Daniel MD Unavailable Unavailable Merly Daniel MD Unavailable Unavailable Merly Daniel MD Unavailable Unavailable Merly Daniel MD Unavailable Unavailable Merly Daniel MD Unavailable Unavailable Merly Daniel MD Unavailable Unavailable Merly Daniel MD Unavailable Unavailable Merly Daniel MD Unavailable Unavailable Merly Daniel MD Unavailable Unavailable Merly Daniel MD Unavailable Unavailable Merly Daniel MD Unavailable Unavailable Merly Daniel MD Unavailable Unavailable Merly Daniel MD Unavailable Unavailable Merly Daniel MD Unavailable Unavailable Merly Daniel MD Unavailable Unavailable Merly Daniel MD Unavailable Unavailable Merly Daniel MD Unavailable Unavailable Merly Daniel MD Unavailable Unavailable Merly Daniel MD Unavailable Unavailable Merly Daniel MD Unavailable Unavailable Merly Daniel MD Unavailable Unavailable Merly Daniel MD Unavailable Unavailable Merly Daniel MD Unavailable Unavailable Merly Daniel MD Unavailable Unavailable Merly Daniel MD Unavailable Unavailable Merly Daniel MD Unavailable Unavailable Merly Daniel MD Unavailable Unavailable Merly Daniel MD Unavailable Unavailable Merly Daniel MD Unavailable Unavailable Merly Daniel MD Unavailable Unavailable Merly Daniel MD Unavailable Unavailable Merly Daniel MD Unavailable Unavailable Merly Daniel MD Unavailable Unavailable Merly Daniel MD Unavailable Unavailable Merly Daniel MD Unavailable Unavailable Merly Daniel MD Unavailable Unavailable Merly Daniel MD Unavailable Unavailable Merly Daniel MD Unavailable Unavailable Alvaro, L Estelle SECURITY CONTROL CENTER OPERATOR Unavailable Unavailable Alvaro, L Estelle SECURITY CONTROL CENTER OPERATOR Unavailable Unavailable Alvaro, L Estelle SECURITY CONTROL CENTER OPERATOR Unavailable Unavailable Alvaro, L Estelle SECURITY CONTROL CENTER OPERATOR Unavailable Unavailable Alvaro, L Estelle SECURITY CONTROL CENTER OPERATOR Unavailable Unavailable Alvaro, L Estelle SECURITY CONTROL CENTER OPERATOR Unavailable Unavailable Alvaro, L Estelle SECURITY CONTROL CENTER OPERATOR Unavailable Unavailable Alvaro, L Estelle SECURITY CONTROL CENTER OPERATOR Unavailable Unavailable Alvaro, L Estelle SECURITY CONTROL CENTER OPERATOR Unavailable Unavailable Alvaro, L Estelle SECURITY CONTROL CENTER OPERATOR Unavailable Unavailable Alvaro, L Estelle SECURITY CONTROL CENTER OPERATOR Unavailable Unavailable Alvaro, L Estelle SECURITY CONTROL CENTER OPERATOR Unavailable Unavailable Alvaro, L Estelle SECURITY CONTROL CENTER OPERATOR Unavailable Unavailable Alvaro, L Estelle SECURITY CONTROL CENTER OPERATOR Unavailable Unavailable Alvaro, L Estelle SECURITY CONTROL CENTER OPERATOR Unavailable Unavailable Alvaro, L Estelle SECURITY CONTROL CENTER OPERATOR Unavailable Unavailable Alvaro, L Estelle SECURITY CONTROL CENTER OPERATOR Unavailable Unavailable Alvaro, L Estelle SECURITY CONTROL CENTER OPERATOR Unavailable Unavailable Alvaro, L Estelle SECURITY CONTROL CENTER OPERATOR Unavailable Unavailable Alvaro, L Estelle SECURITY CONTROL CENTER OPERATOR Unavailable Unavailable Alvaro, L Estelle SECURITY CONTROL CENTER OPERATOR Unavailable Unavailable Alvaro, L Estelle SECURITY CONTROL CENTER OPERATOR Unavailable Unavailable Alvaro, L Estelle SECURITY CONTROL CENTER OPERATOR Unavailable Unavailable Alvaro, L Estelle SECURITY CONTROL CENTER OPERATOR Unavailable Unavailable Alvaro, L Estelle SECURITY CONTROL CENTER OPERATOR Unavailable Unavailable Jaya Norton MD Unavailable Unavailable Jaya Norton MD Unavailable Unavailable Jaay Norton MD Unavailable Unavailable Jaya Norton MD Unavailable Unavailable Jaya Norton MD Unavailable Unavailable Jaya Norton MD Unavailable Unavailable Jaya Norton MD Unavailable Unavailable Jaya Norton MD Unavailable Unavailable Jaya Norton MD Unavailable Unavailable Jaya Norton MD Unavailable Unavailable Jaya Norton MD Unavailable Unavailable Jaya Norton MD Unavailable Unavailable Jaya Norton MD Unavailable Unavailable Jaya Norton MD Unavailable Unavailable Jaya Norton MD Unavailable Unavailable Jaya Norton MD Unavailable Unavailable Jaya Norton MD Unavailable Unavailable Jaya Norton MD Unavailable Unavailable Jaya Norton MD Unavailable Unavailable Jaya Norton MD Unavailable Unavailable Jaya Norton MD Unavailable Unavailable Jaya Norton MD Unavailable Unavailable Jaya Norton MD Unavailable Unavailable Jaya Norton MD Unavailable Unavailable Jaya Norton MD Unavailable Unavailable Jaya Norton MD Unavailable Unavailable Jaya Norton MD Unavailable Unavailable Jaya Norton MD Unavailable Unavailable Jaya Norton MD Unavailable Unavailable Jaya Norton MD Unavailable Unavailable Jaya Norton MD Unavailable Unavailable Jaya Norton MD Unavailable Unavailable Jaya Norton MD Unavailable Unavailable Jaya Norton MD Unavailable Unavailable Jaya Norton MD Unavailable Unavailable Jaya Norton MD Unavailable Unavailable Jaya Norton MD Unavailable Unavailable Jaya Norton MD Unavailable Unavailable Jaya Norton MD Unavailable Unavailable Jaya Norton MD Unavailable Unavailable Jaya Norton MD Unavailable Unavailable Jaya Norton MD Unavailable Unavailable Jaya Norton MD Unavailable Unavailable Jaya Nroton MD Unavailable Unavailable Jaya Norton MD Unavailable Unavailable Jaya Norton MD Unavailable Unavailable Jaya Norton MD Unavailable Unavailable Jaya Norton MD Unavailable Unavailable Jaya Norton MD Unavailable Unavailable Errol, Jaya Mcdaniel MD Unavailable Unavailable Symenow, Arabella Dania PA Unavailable Unavailable Symenow, Arabella Dania PA Unavailable Unavailable Symenow, Arabella Dania PA Unavailable Unavailable Symenow, Arabella Dania PA Unavailable Unavailable Symenow, Arabella Dania PA Unavailable Unavailable Symenow, Arabella Dania PA Unavailable Unavailable Symenow, Arabella Dania PA Unavailable Unavailable Symenow, Arabella Dania PA Unavailable Unavailable Symenow, Arabella Dania PA Unavailable Unavailable Symenow, Arabella Dania PA Unavailable Unavailable Symenow, Arabella Dania PA Unavailable Unavailable Symenow, Arabella Dania PA Unavailable Unavailable Symenow, Arabella Dania PA Unavailable Unavailable Symenow, Arabella Dania PA Unavailable Unavailable Symenow, Arabella Dania PA Unavailable Unavailable Symenow, Arabella Dania PA Unavailable Unavailable Symenow, Arabella Dania PA Unavailable Unavailable Symenow, Arabella Dania PA Unavailable Unavailable Symenow, Arabella Dania PA Unavailable Unavailable Symenow, Arabella Dania PA Unavailable Unavailable Symenow, Arabella Dania PA Unavailable Unavailable Symenow, Arabella Dania PA Unavailable Unavailable Symenow, Arabella Dania PA Unavailable Unavailable Symenow, Arabella Dania PA Unavailable Unavailable Symenow, Arabella Dania PA Unavailable Unavailable Symenow, Arabella Dania PA Unavailable Unavailable Symenow, Arabella Dania PA Unavailable Unavailable Symenow, Arabella Dania PA Unavailable Unavailable Symenow, Arabella Dania PA Unavailable Unavailable Symenow, Arabella Dania PA Unavailable Unavailable Symenow, Arabella Dania PA Unavailable Unavailable Symenow, Arabella Dania PA Unavailable Unavailable Symenow, Arabella Dania PA Unavailable Unavailable Symenow, Araeblla Dania PA Unavailable Unavailable ANTECOLTommy MD Unavailable Unavailable ANTECOLTommy MD Unavailable Unavailable ANTECOL, Tommy WHITMORE MD Unavailable Unavailable ANTECOL, Tommy WHITMORE MD Unavailable Unavailable ANTECOL, Tommy WHITMORE MD Unavailable Unavailable ANTECOL, Tommy WHITMORE MD Unavailable Unavailable ANTECOL, Tommy WHITMORE MD Unavailable Unavailable ANTECOL, Tommy WHITMORE MD Unavailable Unavailable ANTECOL, Tommy WHITMORE MD Unavailable Unavailable ANTECOL, Tommy WHITMORE MD Unavailable Unavailable ANTECOL, Tommy WHITMORE MD Unavailable Unavailable ANTECOL, Tommy WHITMORE MD Unavailable Unavailable ANTECOL, Tommy WHITMORE MD Unavailable Unavailable ANTECOL, Tommy WHITMORE MD Unavailable Unavailable ANTECOL, Tommy WHITMORE MD Unavailable Unavailable ANTECOL, Tommy WHITMORE MD Unavailable Unavailable ANTECOL, Tommy WHITMORE MD Unavailable Unavailable ANTECOL, Tommy WHITMORE MD Unavailable Unavailable ANTECOL, Tommy WHITMORE MD Unavailable Unavailable ANTECOL, Tommy WHITMORE MD Unavailable Unavailable ANTECOL, Tommy WHITMORE MD Unavailable Unavailable ANTECOL, Tommy WHITMORE MD Unavailable Unavailable ANTECOL, Tommy WHITMORE MD Unavailable Unavailable ANTECOL, Tommy WHITMORE MD Unavailable Unavailable ANTECOL, Tommy WHITMORE MD Unavailable Unavailable ANTECOL, Tommy WHITMORE MD Unavailable Unavailable ANTECOL, Tommy WHITMORE MD Unavailable Unavailable ANTECOL, Tommy WHITMORE MD Unavailable Unavailable ANTECOL, Tommy WHITMORE MD Unavailable Unavailable ANTECOL, Tommy WHITMORE MD Unavailable Unavailable ANTECOL, Tommy WHITMORE MD Unavailable Unavailable ANTECOL, Tommy WHITMORE MD Unavailable Unavailable ANTECOL, Tommy WHITMORE MD Unavailable Unavailable ANTECOL, Tommy WHITMORE MD Unavailable Unavailable ANTECOL, Tommy WHITMORE MD Unavailable Unavailable ANTECOL, Tommy WHITMORE MD Unavailable Unavailable ANTECOL, Tommy WHITMORE MD Unavailable Unavailable ANTECOL, Tommy WHITMORE MD Unavailable Unavailable ANTECOL, Tommy WHITMORE MD Unavailable Unavailable ANTECOL, Tommy WHITMORE MD Unavailable Unavailable ANTECOL, Tommy WHITMORE MD Unavailable Unavailable ANTECOL, Tommy WHITMORE MD Unavailable Unavailable ANTECOL, Tommy WHITMORE MD Unavailable Unavailable ANTECOL, Tommy WHITMORE MD Unavailable Unavailable ANTECOL, Tommy WHITMORE MD Unavailable Unavailable ANTECOL, Tommy WHITMORE MD Unavailable Unavailable ANTECOL, Tommy WHITMORE MD Unavailable Unavailable ANTECOL, Tommy WHITMORE MD Unavailable Unavailable ANTECOL, Tommy WHITMORE MD Unavailable Unavailable ANTECOL, Tommy WHITMORE MD Unavailable Unavailable ANTECOL, Tommy WHITMORE MD Unavailable Unavailable ANTECOL, Tommy WHITMORE MD Unavailable Unavailable ANTECOL, Tommy WHITMORE MD Unavailable Unavailable ANTECOL, Tommy WHITMORE MD Unavailable Unavailable ARAM, L HALIE PA Unavailable Unavailable ARAM, L HALIE PA Unavailable Unavailable ARAM, L HALIE PA Unavailable Unavailable ARAM, L HALIE PA Unavailable Unavailable ARAM, L HALIE PA Unavailable Unavailable ARAM, L HALIE PA Unavailable Unavailable ARAM, L HALIE PA Unavailable Unavailable ARAM, L HALIE PA Unavailable Unavailable ARAM, L HALIE PA Unavailable Unavailable ARAM, L HALIE PA Unavailable Unavailable ARAM, L HALIE PA Unavailable Unavailable ARAM, L HALIE PA Unavailable Unavailable ARAM, L HALIE PA Unavailable Unavailable ARAM, L HALIE PA Unavailable Unavailable ARAM, L HALIE PA Unavailable Unavailable ARAM, L HALIE PA Unavailable Unavailable ARAM, L HALIE PA Unavailable Unavailable ARAM, L HALIE PA Unavailable Unavailable ARAM, L HALIE PA Unavailable Unavailable ARAM, L HALIE PA Unavailable Unavailable ARAM, L HALIE PA Unavailable Unavailable ARAM, L HALIE PA Unavailable Unavailable ERROL, A GET DO Unavailable Unavailable ERROL, A GET DO Unavailable Unavailable ERROL, A GET DO Unavailable Unavailable ERROL, A GET DO Unavailable Unavailable ERROL, A GET DO Unavailable Unavailable ERROL, A GET DO Unavailable Unavailable ERROL, A GET DO Unavailable Unavailable ERROL, A GET DO Unavailable Unavailable ERROL, A GET DO Unavailable Unavailable ERROL, A GET DO Unavailable Unavailable ERROL, A GET DO Unavailable Unavailable ERROL, A GET DO Unavailable Unavailable ERROL, A GET DO Unavailable Unavailable ERROL, A GET DO Unavailable Unavailable ERROL, A GET DO Unavailable Unavailable ERROL, A GET DO Unavailable Unavailable ERROL, A GET DO Unavailable Unavailable ERROL, A GET DO Unavailable Unavailable ERROL, A GET DO Unavailable Unavailable ERROL, A EGT DO Unavailable Unavailable ERROL, A GET DO Unavailable Unavailable ERROL, A GET DO Unavailable Unavailable Kang, Annandale Sydni Unavailable Unavailable Kang, Annandale Sydni Unavailable Unavailable Kang, Annandale Sydni Unavailable Unavailable Kang, Annandale Sydni Unavailable Unavailable Kang, Annandale Sydni Unavailable Unavailable Kang, Annandale Sydni Unavailable Unavailable Kang, Annandale Sydni Unavailable Unavailable Kang, Annandale Sydni Unavailable Unavailable Kang, Annandale Sydni Unavailable Unavailable Kang, Annandale Sydni Unavailable Unavailable Kang, Annandale Sydni Unavailable Unavailable Kang, Annandale Sydni Unavailable Unavailable Kang, Annandale Sydni Unavailable Unavailable Re-disclosure Warning The records that you are about to access may contain information from federally-assisted alcohol or drug abuse programs. If such information is present, then the following federally mandated warning applies: This information has been disclosed to you from records protected by federal confidentiality rules (42 CFR part 2). The federal rules prohibit you from making any further disclosure of this information unless further disclosure is expressly permitted by the written consent of the person to whom it pertains or as otherwise permitted by 42 CFR part 2. A general authorization for the release of medical or other information is NOT sufficient for this purpose. The Federal rules restrict any use of the information to criminally investigate or prosecute any alcohol or drug abuse patient.The records that you are about to access may contain highly sensitive health information, the redisclosure of which is protected by Article 27-F of the [facility] Public Health law. If you continue you may have access to information: Regarding HIV / AIDS; Provided by facilities licensed or operated by the [facility] Office of Mental Health; or Provided by the [facility] Office for People With Developmental Disabilities. If such information is present, then the following [facility] mandated warning applies: This information has been disclosed to you from confidential records which are protected by state law. State law prohibits you from making any further disclosure of this information without the specific written consent of the person to whom it pertains, or as otherwise permitted by law. Any unauthorized further disclosure in violation of state law may result in a fine or group home sentence or both. A general authorization for the release of medical or other information is NOT sufficient authorization for further disc losure. Allergies and Adverse Reactions Type Description Substance Reaction Status Data Source(s ) Allergy to substance Allergy to substance Allergy to substance DYLON ([facility]) Allergy to substance Allergy to substance Allergy to substance DYLON ([facility]) Family History Family Member Name Family Member Gender Family Member Status Date o f Status Description Data Source(s) Unknown Male Condition [facility] Unknown Unknown Problem MEDENT ([facility]) Unknown Male Problem MEDENT ([facility]) Unknown Unknown Problem [facility]) Unknown Female Problem MEDENT ([facility] ) Encounters Encounter Providers Location Date Indications Data Source(s ) Emergency Attender: HALIE LIZ EMERGENCY ROOM-[facility] E[facility]Y ROOM 12/26/2020 12:18:00 PM EDT - 12/26/2020 12:18:00 PM EDT [facility] [place] [address] [facility] [address] 12/20/2020 12:00:00 AM EDT eCW1 ([facility]) [place] [address] [facility] [facility] [address] 12/19/2020 12:00:00 AM EDT eCW1 ([facility]) [place] [address] [facility] [address] 12/13/2020 12:00:00 AM EDT eCW1 ([facility]) [place] [address] [facility] [facility] [address] 12/13/2020 12:00:00 AM EDT eCW1 ([facility]) Office Visit Attender: MYRANDA MONDRAGON MD Main Office 11/15/2020 08: 01:00 AM EDT MEDENT ([facility]) [place] [address] [facility] [facility] [facility] [address] 11/10/2020 12:00:00 AM EDT eCW1 ([facility]) [place] [address] [facility] [facility] [address] 11/04/2020 12:00:00 AM EDT eCW1 ([facility]) [place] [address] [facility] [facility] [facility] [address] 10/18/2020 12:00:00 AM EDT eCW1 ([facility]) Outpatient Attender: Dania LIZ Main Office 10/12/2020 12:45:00 PM EDT MEDENT ([facility]) [place] [address] [facility] [facility] [address] 10/11/2020 12:00:00 AM EDT eCW1 ([facility]) [place] [address] [facility] [facility] [address] 10/10/2020 12:00:00 AM EDT eCW1 ([facility]) [place] [address] [facility] [address] 10/10/2020 12:00:00 AM EDT eCW1 ([facility]) Office Visit Attender: MYRANDA MONDRAGON MD Main Office 09/21/2020 11: 00:00 AM EDT MEDENT ([facility]) [place] [address] [facility] [facility] [facility] [address] 09/19/2020 12:00:00 AM EDT eCW1 ([facility]) [place] [address] [facility] [facility] [facility] [address] 09/13/2020 12:00:00 AM EDT eCW1 ([facility]) Office Visit Attender: MYRANDA MONDRAGON MD Main Office 08/18/2020 09: 33:00 AM EDT MEDENT ([facility]) Outpatient<td ID="encounterTypeDescripti [email or web address]">VISUAL FIELD 24-2</td><td>Get Norton DO</td><td>Myranda Kong MD [facility]</td><td>08/05/2020</td><td>9:53AM</td><td>11:08AM</td><td><content ID="encounterDiagnosisID0-0">Borderline Glaucoma Open Angle with Borderline Findings Both Eyes</content></td> Attender: GET Carrington MD [facility] 08/05/2020 09:53:00 AM EDT - 08/05/2020 11:08:00 AM ED T Borderline Glaucoma Open Angle with Borderline Findings Both EyesBorderline Glaucoma Open Angle with Borderline Findings Both Eyes IVONNE (Myranda Reagan MD [facility]) 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 Outpatient<td ID="encounterTypeDescripti [email or web address]">6 Month follow up with testing</td><td>Get Norton DO</td><td>yMranda Kong MD [facility]</td><td>07/27/2020</td><td>1:18PM</td><td>3:20PM</td><td><content ID="encounterDiagnosisID1-0">Essential Hypertension</content>, <content ID="encounterDiagnosisID1-1">Macular Puckering</content>, <content ID="encounterDiagnosisID1-2">Assessment of Taking Medication For Diabetes Long- term Use of Insulin</content>, <content ID="encounterDiagnosisID1-3">Diabetes Mellitus Type 2 Without Complication</content>, <content ID="encounterDiagnosisID1-4">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</content>, <content ID="encounterDiagnosisID1-5"> Borderline Glaucoma Open Angle with Borderline Findings Both Eyes</content></td> Attender: GET Gutierrez MD [facility] 03/2020 01:18:00 PM EDT - 07/27/2020 03:20:00 PM EDT 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Borderline Glaucoma Open Angle with Borderline Findings Both EyesBorderline Glaucoma Open Angle with Borderline Findings Both Eyes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Essential HypertensionEssential Hypertension Essential HypertensionDiabetes Mellitus Type 2 Without ComplicationAssessment of Taking Medication For Diabetes Long-term Use of InsulinMacular PuckeringDiabetes Mellitus Type 2 Without ComplicationAssessment of Taking Medication For Diabetes Long-term Use of InsulinMacular PuckeringDiabetes Mellitus Type 2 Without ComplicationAssessment of Taking Medication For Diabetes Long-term Use of InsulinMacular Puckering IVONNE (Myranda Reagan MD [facility]) 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 Essential Hypertension Essential Hypertension Essential Hypertension Diabetes Mellitus Type 2 Without Complic ation Assessment of Taking Medication For Diab etes Long-term Use of Insulin Macular Puckering Diabetes Mellitus Type 2 Without Complic ation Assessment of Taking Medication For Diab etes Long-term Use of Insulin Macular Puckering Diabetes Mellitus Type 2 Without Complic ation Assessment of Taking Medication For Diab etes Long-term Use of Insulin Macular Puckering Outpatient Attender: Jonas Norton MD Main Office 07/21/2020 11:00:00 AM EDT MEDENT ([facility]) [place] [address] [facility] [facility] [address] 07/21/2020 12:00:00 AM EDT [facility]CW1 [facility]) Outpatient Attender: Dania LIZ Main Office 07/11/2020 12:45:00 PM EDT MEDENT ([facility]) Office Visit Attender: MYRANDA MONDRAGON MD Main Office 07/06/2020 03: 27:00 PM EDT MED[facility] ([facility]) [place]patient [address] [facility] [facility] [facility] [address] 06/29/2020 12:00:00 AM EDT eCW1 ([facility]) [place] [address] [facility] [place] [address] 06/23/2020 12:00:00 AM EDT eCW1 ([facility]) [place] [address] [facility] [place] [id number] 06/16/2020 12:00:00 AM EDT eCW1 ([facility]) Unknown [address] [facility] [address] [place] [address] 06/01/2020 12:00:00 AM EDT eCW1 ([facility]) Office Visit Attender: MYRANDA MONDRAGON MD Main Office 05/27/2020 01: 00:00 PM EDT MEDENT ([facility]) Unknown [address] [facility] [address] [place] [address] 05/27/2020 12:00:00 AM EDT eCW1 ([facility]) Sydni Kang, PHARMACY RETAIL SUPPORT SPECIALIST-C: [address] [place] [phone], Ph. Attender: Sydni Kang [facility] Medical 05/25/2020 12:00:00 AM EDT DYLON ([facility]) Unknown [address] [facility] [place] [address] 05/20/2020 12:00:00 AM EDT eCW1 ([facility]) Outpatient Attender: Dania LIZ Main Office 05/19/2020 12:30:00 PM EDT MEDENT ([facility]) Office Visit Attender: MYRANDA MONDRAGON MD Main Office 05/18/2020 01: 23:00 PM EDT MEDENT ([facility]) Unknown [address] [facility] [address] [id number] 05/17/2020 12:00:00 AM EDT eCW1 ([facility]) Unknown [address] [facility] [address] [id number] 05/02/2020 12:00:00 AM EST eCW1 ([facility]) Abdiel Daniel MD: [address] [place] [phone], Ph. Attender: Abdiel Daniel MD [facility] Medical 04/28/2020 12:00:00 AM EST DYLON ([facility]) Abdiel Daniel MD: [address] [place] [phone], Ph. Attender: Abdiel Daniel MD [facility] Medical 04/28/2020 12:00:00 AM EST DYLON ([facility]) Office Visit Attender: MYRANDA MONDRAGON MD Main Office 04/19/2020 08: 27:00 AM EST MEDENT ([facility]) Outpatient Attender: Dania LIZ Main Office 04/18/2020 11:45:00 AM EST MEDENT ([facility]) Outpatient [address] [facility] [address] [address] 03/17/2020 12:00:00 AM EST eCW1 ([facility]) Unknown [address] [facility] [address] [id number] 03/14/2020 12:00:00 AM EST eCW1 ([facility]) Unknown [address] [facility], [place] [address] 03/08/2020 12:00:00 AM EST eCW1 ([facility]) Office Visit Attender: MYRANDA MONDRAGON MD Main Office 03/07/2020 01: 50:00 PM EST MEDENT ([facility]) Office Visit Attender: MYRANDA MONDRAGON MD Main Office 01/22/2020 10: 12:00 AM EST MEDENT ([facility]) <td ID="encounterTypeDescriptionID2">3 - 4 Week Follow-Up</td><td>Get Norton DO</td><td>Myranda Kong MD [facility]</td><td>01/14/2020</td><td>1:58PM</td><td>3:32PM</td><td><content ID="encounterDiagnosisID2-0">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</content>, <content ID="encounterDiagnosisID2-1">Essential Hypertension</content>, <content ID="encounterDiagnosisID2-2">History of Nicotine Dependence</content></td>Outpatient Attender: GET Gutierrez MD [facility] 01/14/2020 01:58:00 PM EST - 01/14/2020 03:32:00 PM EST History of Nicotine DependenceHistory of Nicotine DependenceHistory of Nicotine Dependence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Essential HypertensionEssential HypertensionEssential Hypertension SAVANNAH (Myranda Reagan MD [facility]) History of Nicotine Dependence History of Nicotine Dependence History of Nicotine Dependence 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 Essential Hypertension Essential Hypertension Essential Hypertension Outpatient Attender: Dania LIZ Main Office 12/24/2019 12:30:00 PM EDT MEDENT ([facility]) Office Visit Attender: MYRANDA MONDRAGON MD Main Office 12/17/2019 11: 07:00 AM EDT MEDENT ([facility]) Outpatient Attender: Estelle Harmon/Lacy/Rito/Reinary 12/14/2019 11:30:00 AM EDT MEDENT ([facility]) Outpatient<td ID="encounterTypeDescripti onID3">1 Year Follow-Up</td><td>Get Norton DO</td><td>Myranda Kong MD [facility]</td><td>11/27/2019</td><td>12:00PM</td><td>1:05PM</td><td><content ID="encounterDiagnosisID3-0">Essential Hypertension</content>, <content ID="encounterDiagnosisID3-1">Macular Puckering</content>, <content ID="encounterDiagnosisID3-2">Assessment of Taking Medication For Diabetes Long- term Use of Insulin</content>, <content ID="encounterDiagnosisID3-3">Diabetes Mellitus Type 2 Without Complication</content>, <content ID="encounterDiagnosisID3-4">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</content></td> Attender: GET Carrington MD [facility] 11/27/2019 12:00:00 PM EDT - 11/27/2019 01:05:00 PM ED T 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Essential HypertensionEssential Hypertension Essential HypertensionDiabetes Mellitus Type 2 Without ComplicationAssessment of Taking Medication For Diabetes Long-term Use of InsulinMacular PuckeringDiabetes Mellitus Type 2 Without ComplicationAssessment of Taking Medication For Diabetes Long-term Use of InsulinMacular PuckeringDiabetes Mellitus Type 2 Without ComplicationAssessment of Taking Medication For Diabetes Long-term Use of InsulinMacular Puckering IVONNE (Myranda Reagan MD [facility]) 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 Essential Hypertension Essential Hypertension Essential Hypertension Diabetes Mellitus Type 2 Without Complic ation Assessment of Taking Medication For Diab etes Long-term Use of Insulin Macular Puckering Diabetes Mellitus Type 2 Without Complic ation Assessment of Taking Medication For Diab etes Long-term Use of Insulin Macular Puckering Diabetes Mellitus Type 2 Without Complic ation Assessment of Taking Medication For Diab etes Long-term Use of Insulin Macular Puckering Office Visit Attender: MYRANDA MONDRAGON MD Main Office 11/24/2019 04: 22:00 PM EDT CARLOS ([facility]) Immunizations Vaccine Date Status Description Data Source(s) pneumococcal polysaccharide PPV23 09/13/2020 11:28:00 AM EDT comple prabhjot eCW1 ([facility]) pneumococcal polysaccharide PPV23 09/13/2020 11:28:00 AM EDT comple prabhjot eCW1 ([facility]) pneumococcal polysaccharide PPV23 09/13/2020 11:28:00 AM EDT comple prabhjot eCW1 ([facility]) pneumococcal polysaccharide PPV23 09/13/2020 11:28:00 AM EDT comple prabhjot eCW1 ([facility]) pneumococcal polysaccharide PPV23 09/13/2020 11:28:00 AM EDT comple prabhjot eCW1 ([facility]) pneumococcal polysaccharide PPV23 09/13/2020 11:28:00 AM EDT comple prabhjot eCW1 ([facility]) pneumococcal polysaccharide PPV23 09/13/2020 11:28:00 AM EDT comple prabhjot eCW1 ([facility]) pneumococcal polysaccharide PPV23 09/13/2020 11:28:00 AM EDT comple prabhjot eCW1 ([facility]) pneumococcal polysaccharide PPV23 09/13/2020 11:28:00 AM EDT comple prabhjot eCW1 ([facility]) pneumococcal polysaccharide PPV23 09/13/2020 11:28:00 AM EDT comple prabhjot eCW1 ([facility]) pneumococcal polysaccharide PPV23 09/13/2020 11:28:00 AM EDT comple prabhjot eCW1 ([facility]) pneumococcal polysaccharide PPV23 09/13/2020 11:28:00 AM EDT comple prabhjot eCW1 ([facility]) COVID-19, mRNA, LNP-S, PF, 100 mcg/0.5 mL dose 05/25/2020 02 :53:03 PM EDT completed .5 mL DYLON ([facility]) COVID-19 VACCINE Moderna 05/25/2020 12:00:00 AM EDT completed NYSIIS Vaccine Series Complete: YESThis Data wa s Submitted to [facility] Via [employer]. COVID-19, mRNA, LNP-S, PF, 100 mcg/0.5 mL dose 04/28/2020 04 :58:38 PM EST completed .5 mL DYLON ([facility]) COVID-19, mRNA, LNP-S, PF, 100 mcg/0.5 mL dose 04/28/2020 04 :58:38 PM EST completed .5 mL DYLON ([facility]) COVID-19 VACCINE Moderna 04/28/2020 12:00:00 AM EST completed DESIIS Vaccine Series Complete: NOThis Data was Submitted to [facility] Via [employer]. Medications Medication Brand Name Start Date Product Form Dose Route Admi nistrative Instructions Pharmacy Instructions Status Indications Reaction Description Data Source(s) pantoprazole 40 MG Delayed Release Oral Tablet PANTOPRAZOLE SODIUM 12/21/2020 12:00:00 AM EDT tablet,delayed release (DR/EC) 90 T DAQUAN ONE TABLET BY MOUTH EVERY DAY TAKE ONE TABLET BY MOUTH EVERY DAY SOLD: 12/23/2020 [facility] 100 unit/mL (3 mL) 12/08/2020 12:00:00 AM EDT insulin pen 15 INJECT 10 UNITS SUBCUTANEOUSLY TWO TIMES A DAY INJECT 10 UNITS SUBCUTANEOUSLY TWO TIMES A DAY SOLD: 12/08/2020 [facility] 500 mg 12/08/2020 12:00:00 AM EDT tablet 30 TAKE ONE TABLET BY MOUTH EVERY DAY AT 6:00PM TAKE ONE TABLET BY MOUTH EVERY DAY AT 6:00PM SOLD: 12/08/2020 [facility] 100 mg 12/02/2020 12:00:00 AM EDT tablet 90 TAKE ONE-HALF TABLET BY MOUTH TWICE A DAY TAKE ONE-HALF TABLET BY MOUTH TWICE A DAY SOLD: 12/08/2020 [facility] 5 mg 11/10/2020 12:00:00 AM EDT tablet 540 TAKE TWO TABLETS BY MOUTH THREE TIMES A DAY TAKE TWO TABLETS BY MOUTH THREE TIMES A DAY SOLD: 11/24/2020 [facility] doxycycline hyclate 100 MG Oral Capsule Doxycycline Hyclate 11/09/2020 12:00:00 AM EDT ORAL active MEDENT ([facility] Doxycycline Monohydrate 100 MG Oral Capsule Doxycycline [place] hydrate 100 MG 11/04/2020 12:00:00 AM EDT 1.0 {capsule} active Doxycycline Monohydrate 100 MG eCW1 ([facility]) Doxycycline Monohydrate 100 MG Oral Capsule Doxycycline [place] hydrate 100 MG 11/04/2020 12:00:00 AM EDT 1.0 {capsule} active Doxycycline Monohydrate 100 MG eCW1 ([facility]) Doxycycline Monohydrate 100 MG Oral Capsule Doxycycline [place] hydrate 100 MG 11/04/2020 12:00:00 AM EDT 1.0 {capsule} active Doxycycline Monohydrate 100 MG eCW1 ([facility]) Doxycycline Monohydrate 100 MG Oral Capsule Doxycycline [place] hydrate 100 MG 11/04/2020 12:00:00 AM EDT 1.0 {capsule} active Doxycycline Monohydrate 100 MG eCW1 ([facility]) 100 mg 11/04/2020 12:00:00 AM EDT capsule 20 TAKE ONE CAPSULE BY MOUTH TWICE A DAY FOR 10 DAYS TAKE ONE CAPSULE BY MOUTH TWICE A DAY FOR 10 DAYS SOLD : 11/06/2020 [facility] Doxycycline Monohydrate 100 MG Oral Capsule Doxycycline [place] hydrate 100 MG 11/04/2020 12:00:00 AM EDT 1.0 {capsule} active Doxycycline Monohydrate 100 MG eCW1 ([facility]) Doxycycline Monohydrate 100 MG Oral Capsule Doxycycline [place] hydrate 100 MG 11/04/2020 12:00:00 AM EDT 1.0 {capsule} active Doxycycline Monohydrate 100 MG eCW1 ([facility]) 25 mg 11/01/2020 12:00:00 AM EDT tablet 180 TAKE ONE TABLET BY MOUTH TWICE A DAY TAKE ONE TABLET BY MOUTH TWICE A DAY SOLD: 11/06/2020 [facility] Spironolactone 25 MG Oral Tablet Spironolactone 10/11/2020 12:00:00 A M EDT ORAL active MEDENT ([facility]) Ascorbic Acid 500 MG Chewable Tablet Vitamin C 10/11/2020 12:00:00 AM EDT active MEDENT ([facility]) valacyclovir 1000 MG Oral Tablet VALACYCLOVIR HCL 10/11/2020 12: 00:00 AM EDT tablet 21 TAKE ONE TABLET BY MOUTH THREE T IMES A DAY FOR 7 DAYS TAKE ONE TABLET BY MOUTH THREE TIMES A DAY FOR 7 DAYS SOLD: 10/12/2020 [facility] midodrine hydrochloride 5 MG Oral Tablet Midodrine HCL 10/10/2020 12:00:00 AM EDT ORAL active MEDENT ([facility]) BLOOD SUGAR DIAGNOSTIC 10/10/2020 12:00:00 AM EDT strip 350 USE DIRECTED FOUR TIMES A DAY USE DIRECTED FOUR TIMES A DAY SOLD: 10/12/2020 [facility] 300 mg 10/05/2020 12:00:00 AM EDT capsule 5 TAKE ONE CAPSULE BY MOUTH EVERY DAY FOR 5 DAYS TAKE ONE CAPSULE BY MOUTH EVERY DAY FOR 5 DAYS SOLD: [facility] 175 mcg 09/13/2020 12:00:00 AM EDT tablet 90 TAKE ONE TABLET BY MOUTH EVERY MORNING ON AN EMPTY STOMACH TAKE ONE TABLET BY MOUTH EVERY MORNING O N AN EMPTY STOMACH SOLD: 12/23/2020 [facility] 175 mcg 09/13/2020 12:00:00 AM EDT tablet 90 TAKE ONE TABLET BY MOUTH EVERY MORNING ON AN EMPTY STOMACH TAKE ONE TABLET BY MOUTH EVERY MORNING O N AN EMPTY STOMACH SOLD: 09/15/2020 [facility] pantoprazole 40 MG Delayed Release Oral Tablet [Protonix] Protonix 40 MG Oral Tablet Delayed Release Protonix 40 MG Oral Tablet Delayed Release 07/27/2020 12:00:00 AM EDT 1 active pantoprazole 40 MG Delayed Release Oral Tablet [Protonix] IVONNE (Myranda Reagan MD [facility]) Spironolactone 25 MG Oral Tablet Spironolactone 25 MG Oral T ablet 07/27/2020 12:00:00 AM EDT 1 active spironol actone 25 MG Oral Tablet IVONNE (Myranda Reagan MD [facility]) torsemide 100 MG Oral Tablet Torsemide 100 MG Oral Tab let Torsemide 100 MG Oral Tablet 07/27/2020 12:00:00 AM EDT 1 active torsemide 100 MG Oral Tablet IVONNE (Myranda Reagan MD [facility]) Prevagen 10 MG Oral Capsule Prevagen 10 MG Oral Capsule 03/2020 12:00:00 AM EDT 1 active Prevagen IVONNE (Myranda Reagan MD [facility]) PreserVision AREDS 2 Oral Capsule PreserVision AREDS 2 Oral Capsule 07/27/2020 12:00:00 AM EDT 1 active PreserVi cornelius AREDS 2 IVONNE (Myranda Reagan MD [facility]) 3 ML Insulin, Aspart, Human 100 UNT/ML P en Injector [NovoLog] NovoLOG FlexPen 100 UNIT/ML Subcutaneous Solution Pen-injector NovoLOG FlexPen 100 UNIT/ML Subcutaneous Solution Pen-injector 07/27/2020 12:00:00 AM EDT active 3 ML insulin aspart, human 100 UNT/ML Pe n Injector [NovoLog] IVONNE (Myranda Reagan MD [facility]) Glucosamine MSM Complex Oral Tablet Glucosamine MSM Complex Oral Tablet 07/27/2020 12:00:00 AM EDT 1 active Glucosamine MSM Complex IVONNE (Myranda Reagan MD [facility]) apixaban 2.5 MG Oral Tablet [Eliquis] Eliquis 2.5 MG O ral Tablet Eliquis 2.5 MG Oral Tablet 07/27/2020 12:00:00 AM EDT 1 active apixaban 2.5 MG Oral Tablet [Eliquis] IVONNE (Myranda Reagan MD [facility]) Allopurinol 100 MG Oral Tablet Allopurinol 100 MG Oral Table t 07/27/2020 12:00:00 AM EDT 1 active allopuri nol 100 MG Oral Tablet IVONNE (Myranda Reagan MD [facility]) Colesevelam hydrochloride 625 MG Oral Tablet Colesevel am HCl 625 MG Oral Tablet Colesevelam HCl 625 MG Oral Tablet 07/27/2020 12:00:00 AM EDT 1 active colesevelam hydrochloride 625 MG Oral Ta blet IVONNE (Myranda Reagan MD [facility]) midodrine hydrochloride 5 MG Oral Tablet Midodrine HCl 5 MG Oral Tablet Midodrine HCl 5 MG Oral Tablet 07/27/2020 12:00:00 AM EDT 1 active midodrine hydrochloride 5 MG Oral Tablet IVONNE (Myranda Reagan MD [facility]) 100 unit/mL (3 mL) 07/23/2020 12:00:00 AM EDT insulin pen 30 INJECT 40 UNITS UNDER THE SKIN TWO TIMES A DAY INJECT 40 UNITS UNDER THE SKIN TWO TIMES A DAY SOLD: 09/05/2020 [facility] 100 unit/mL (3 mL) 07/23/2020 12:00:00 AM EDT insulin pen 30 INJECT 40 UNITS UNDER THE SKIN TWO TIMES A DAY INJECT 40 UNITS UNDER THE SKIN TWO TIMES A DAY SOLD: 07/28/2020 [facility] 625 mg 07/13/2020 12:00:00 AM EDT tablet 540 TAKE THREE TABLETS BY MOUTH TWO TIMES A DAY WITH MEALS TAKE THREE TABLETS BY MOUTH TWO TIMES A DAY WITH MEALS SOLD: 10/12/2020 [facility] 625 mg 07/13/2020 12:00:00 AM EDT tablet 540 TAKE THREE TABLETS BY MOUTH TWO TIMES A DAY WITH MEALS TAKE THREE TABLETS BY MOUTH TWO TIMES A DAY WITH MEALS SOLD: 07/15/2020 [facility] torsemide 100 MG Oral Tablet Torsemide 07/10/2020 12:00:00 AM EDT ORAL active MEDENT ([facility]) valacyclovir 1000 MG Oral Tablet [Valtrex] Valtrex 1 GM Valt renato 1 GM 06/29/2020 12:00:00 AM EDT 1.0 {tablet} active Va ltrex 1 GM eCW1 ([facility]) valacyclovir 1000 MG Oral Tablet [Valtrex] Valtrex 1 GM Valt renato 1 GM 06/29/2020 12:00:00 AM EDT 1.0 {tablet} active Va ltrex 1 GM eCW1 ([facility]) valacyclovir 1000 MG Oral Tablet [Valtrex] Valtrex 1 GM Valt renato 1 GM 06/29/2020 12:00:00 AM EDT 1.0 {tablet} suspended Valtrex 1 GM eCW1 ([facility]) valacyclovir 1000 MG Oral Tablet [Valtrex] Valtrex 1 GM Valt renato 1 GM 06/29/2020 12:00:00 AM EDT 1.0 {tablet} active Va ltrex 1 GM eCW1 ([facility]) valacyclovir 1000 MG Oral Tablet [Valtrex] Valtrex 1 GM Valt renato 1 GM 06/29/2020 12:00:00 AM EDT 1.0 {tablet} active Va ltrex 1 GM eCW1 ([facility]) valacyclovir 1000 MG Oral Tablet [Valtrex] Valtrex 1 GM Valt renato 1 GM 06/29/2020 12:00:00 AM EDT 1.0 {tablet} suspended Valtrex 1 GM eCW1 ([facility]) valacyclovir 1000 MG Oral Tablet [Valtrex] Valtrex 1 GM Valt renato 1 GM 06/29/2020 12:00:00 AM EDT 1.0 {tablet} active Va ltrex 1 GM eCW1 ([facility]) valacyclovir 1000 MG Oral Tablet [Valtrex] Valtrex 1 GM Valt renato 1 GM 06/29/2020 12:00:00 AM EDT 1.0 {tablet} active Va ltrex 1 GM eCW1 ([facility]) valacyclovir 1000 MG Oral Tablet [Valtrex] Valtrex 1 GM Valt renato 1 GM 06/29/2020 12:00:00 AM EDT 1.0 {tablet} suspended Valtrex 1 GM eCW1 ([facility]) valacyclovir 1000 MG Oral Tablet [Valtrex] Valtrex 1 GM Valt renato 1 06/29/2020 12:00:00 AM EDT 1.0 {tablet} active Va ltrex 1 GM eCW1 ([facility]) valacyclovir 1000 MG Oral Tablet VALACYCLOVIR HCL 06/29/2020 12: 00:00 AM EDT tablet 21 TAKE ONE TABLET BY MOUTH THREE T IMES A DAY FOR 7 DAYS TAKE ONE TABLET BY MOUTH THREE TIMES A DAY FOR 7 DAYS SOLD: 07/04/2020 [facility] valacyclovir 1000 MG Oral Tablet [Valtrex] Valtrex 1 GM Valt renato 1 GM 06/29/2020 12:00:00 AM EDT 1.0 {tablet} active Va ltrex 1 GM eCW1 ([facility]) valacyclovir 1000 MG Oral Tablet [Valtrex] Valtrex 1 GM Valt renato 1 GM 06/29/2020 12:00:00 AM EDT 1.0 {tablet} suspended Valtrex 1 GM eCW1 ([facility]) valacyclovir 1000 MG Oral Tablet [Valtrex] Valtrex 1 GM Valt renato 1 GM 06/29/2020 12:00:00 AM EDT 1.0 {tablet} active Va ltrex 1 GM eCW1 ([facility]) valacyclovir 1000 MG Oral Tablet [Valtrex] Valtrex 1 GM Valt renato 1 GM 06/29/2020 12:00:00 AM EDT 1.0 {tablet} active Va ltrex 1 GM eCW1 ([facility]) pantoprazole 40 MG Delayed Release Oral Tablet PANTOPRAZOLE SODIUM 06/23/2020 12:00:00 AM EDT tablet,delayed release (DR/EC) 90 T DAQUAN ONE TABLET BY MOUTH EVERY DAY TAKE ONE TABLET BY MOUTH EVERY DAY SOLD: 09/23/2020 [facility] pantoprazole 40 MG Delayed Release Oral Tablet Pantopr azole Sodium 40 MG Pantoprazole Sodium 40 MG 06/22/2020 12:00:00 AM EDT 1.0 {tablet} suspended Pantoprazole Sodium 40 MG eCW1 ( [facility]) pantoprazole 40 MG Delayed Release Oral Tablet Pantopr azole Sodium 40 MG Pantoprazole Sodium 40 MG 06/22/2020 12:00:00 AM EDT 1.0 {tablet} suspended Pantoprazole Sodium 40 MG eCW1 ( [facility]) pantoprazole 40 MG Delayed Release Oral Tablet Pantopr azole Sodium 40 MG Pantoprazole Sodium 40 MG 06/22/2020 12:00:00 AM EDT 1.0 {tablet} active Pantoprazole Sodium 40 MG eCW1 ( [facility]) pantoprazole 40 MG Delayed Release Oral Tablet Pantopr azole Sodium 40 MG Pantoprazole Sodium 40 MG 06/22/2020 12:00:00 AM EDT 1.0 {tablet} suspended Pantoprazole Sodium 40 MG eCW1 ( [facility]) pantoprazole 40 MG Delayed Release Oral Tablet Pantopr azole Sodium 40 MG Pantoprazole Sodium 40 MG 06/22/2020 12:00:00 AM EDT 1.0 {tablet} suspended Pantoprazole Sodium 40 MG eCW1 ( [facility]) pantoprazole 40 MG Delayed Release Oral Tablet Pantopr azole Sodium 40 MG Pantoprazole Sodium 40 MG 06/22/2020 12:00:00 AM EDT 1.0 {tablet} suspended Pantoprazole Sodium 40 MG eCW1 ( [facility]) pantoprazole 40 MG Delayed Release Oral Tablet Pantopr azole Sodium 40 MG Pantoprazole Sodium 40 MG 06/22/2020 12:00:00 AM EDT 1.0 {tablet} suspended Pantoprazole Sodium 40 MG eCW1 ( [facility]) pantoprazole 40 MG Delayed Release Oral Tablet Pantopr azole Sodium 40 MG Pantoprazole Sodium 40 MG 06/22/2020 12:00:00 AM EDT 1.0 {tablet} suspended Pantoprazole Sodium 40 MG eCW1 ( [facility]) pantoprazole 40 MG Delayed Release Oral Tablet Pantopr azole Sodium 40 MG Pantoprazole Sodium 40 MG 06/22/2020 12:00:00 AM EDT 1.0 {tablet} suspended Pantoprazole Sodium 40 MG eCW1 ( [facility]) pantoprazole 40 MG Delayed Release Oral Tablet Pantopr azole Sodium 40 MG Pantoprazole Sodium 40 MG 06/22/2020 12:00:00 AM EDT 1.0 {tablet} suspended Pantoprazole Sodium 40 MG eCW1 ( [facility]) pantoprazole 40 MG Delayed Release Oral Tablet Pantopr azole Sodium 40 MG Pantoprazole Sodium 40 MG 06/22/2020 12:00:00 AM EDT 1.0 {tablet} active Pantoprazole Sodium 40 MG eCW1 ( [facility]) pantoprazole 40 MG Delayed Release Oral Tablet Pantopr azole Sodium 40 MG Pantoprazole Sodium 40 MG 06/22/2020 12:00:00 AM EDT 1.0 {tablet} suspended Pantoprazole Sodium 40 MG eCW1 ( [facility]) pantoprazole 40 MG Delayed Release Oral Tablet Pantopr azole Sodium 40 MG Pantoprazole Sodium 40 MG 06/22/2020 12:00:00 AM EDT 1.0 {tablet} suspended Pantoprazole Sodium 40 MG eCW1 ( [facility]) pantoprazole 40 MG Delayed Release Oral Tablet Pantopr azole Sodium 40 MG Pantoprazole Sodium 40 MG 06/22/2020 12:00:00 AM EDT 1.0 {tablet} suspended Pantoprazole Sodium 40 MG eCW1 ( [facility]) pantoprazole 40 MG Delayed Release Oral Tablet Pantopr azole Sodium 40 MG Pantoprazole Sodium 40 MG 06/22/2020 12:00:00 AM EDT 1.0 {tablet} suspended Pantoprazole Sodium 40 MG eCW1 ( [facility]) pantoprazole 40 MG Delayed Release Oral Tablet Pantopr azole Sodium 40 MG Pantoprazole Sodium 40 MG 06/22/2020 12:00:00 AM EDT 1.0 {tablet} suspended Pantoprazole Sodium 40 MG eCW1 ( [facility]) 100 mg 06/06/2020 12:00:00 AM EDT tablet 90 TAKE ONE-HALF TABLET BY MOUTH TWICE A DAY TAKE ONE-HALF TABLET BY MOUTH TWICE A DAY SOLD: 06/09/2020 [facility] 100 mg 06/06/2020 12:00:00 AM EDT tablet 90 TAKE ONE-HALF TABLET BY MOUTH TWICE A DAY TAKE ONE-HALF TABLET BY MOUTH TWICE A DAY SOLD: 09/05/2020 [facility] 5 mg 05/30/2020 12:00:00 AM EDT tablet 270 TAKE ONE TABLET BY MOUTH THREE TIMES A DAY TAKE ONE TABLET BY MOUTH THREE TIMES A DAY SOLD: 09/05/2020 [facility] 5 mg 05/30/2020 12:00:00 AM EDT tablet 270 TAKE ONE TABLET BY MOUTH THREE TIMES A DAY TAKE ONE TABLET BY MOUTH THREE TIMES A DAY SOLD: 06/09/2020 [facility] midodrine hydrochloride 5 MG Oral Tablet Midodrine HCL 05/25/2020 12:00:00 AM EDT ORAL completed [facility] [facility]) Spironolactone 25 MG Oral Tablet Spironolactone 05/18/2020 12:00:00 A M EDT ORAL completed [facility] ([facility]) torsemide 100 MG Oral Tablet Torsemide 05/18/2020 12:00:00 AM EDT ORAL completed [facility] ([facility]) pantoprazole 40 MG Delayed Release Oral Tablet [Protonix] Pr otonix 05/18/2020 12:00:00 AM EDT ORAL active M EDENT ([facility]) pantoprazole 40 MG Delayed Release Oral Tablet PANTOPRAZOLE SODIUM 05/14/2020 12:00:00 AM EDT tablet,delayed release (DR/EC) 30 T DAQUAN ONE TABLET BY MOUTH EVERY DAY TAKE ONE TABLET BY MOUTH EVERY DAY SOLD: 05/15/2020 [facility] 5 mg 05/14/2020 12:00:00 AM EDT tablet 120 TAKE 2 TABLETS ( 10MG ) BY MOUTH 3 TIMES A DAY (8A.M, NOON & 4P.M) TAKE 2 TABLETS ( 10MG ) BY MOUTH 3 TIMES A DAY (8A.M, NOON & 4P.M) SOLD: 05/15/2020 [facility] 100 mg 05/14/2020 12:00:00 AM EDT tablet 30 TAKE ONE-HALF TABLET ( 50MG ) BY MOUTH TWICE A DAY (9A.M & 5P.M) TAKE ONE-HALF TABLET ( 50MG ) BY MOUTH T WICE A DAY (9A.M & 5P.M) SOLD: 05/15/2020 [facility] 100 mg 05/03/2020 12:00:00 AM EST tablet 90 TAKE ONE TABLET BY MOUTH EVERY DAY TAKE ONE TABLET BY MOUTH EVERY DAY SOLD: 05/04/2020 [facility] 32 gauge x 5/32" 05/03/2020 12:00:00 AM EST needle 540 USE DIRECTED SIX TIMES A DAY USE DIRECTED SIX TIMES A DAY SOLD: 05/04/2020 [facility] 32 gauge x 5/32" 05/03/2020 12:00:00 AM EST needle 540 USE DIRECTED SIX TIMES A DAY USE DIRECTED SIX TIMES A DAY SOLD: 08/05/2020 [facility] 100 mg 05/03/2020 12:00:00 AM EST tablet 90 TAKE ONE TABLET BY MOUTH EVERY DAY TAKE ONE TABLET BY MOUTH EVERY DAY SOLD: 08/05/2020 [facility] 32 gauge x 5/32" 05/03/2020 12:00:00 AM EST needle 540 USE DIRECTED SIX TIMES A DAY USE DIRECTED SIX TIMES A DAY SOLD: 11/06/2020 [facility] 100 mg 05/03/2020 12:00:00 AM EST tablet 90 TAKE ONE TABLET BY MOUTH EVERY DAY TAKE ONE TABLET BY MOUTH EVERY DAY SOLD: 11/06/2020 [facility] Pen [place] 32G X 4 MM [place] 32G X 4 MM 05/02/2020 12:00:[address] suspended [place] 32G X 4 MM eC W1 ([facility]) [place] 32G X 4 MM [place] 32G X 4 MM 05/02/2020 12:00:[address] suspended [place] 32G X 4 MM eC W1 ([facility]) [place] 32G X 4 MM [place] 32G X 4 MM 05/02/2020 12:00:[address] suspended [place] 32G X 4 MM eC W1 ([facility]) [place] 32G X 4 MM [place] 32G X 4 MM 05/02/2020 12:00:[address] suspended [place] 32G X 4 MM eC W1 ([facility]) [place] 32G X 4 MM [place] 32G X 4 MM 05/02/2020 12:00:[address] suspended [place] 32G X 4 MM eC W1 ([facility]) [place] 32G X 4 MM [place] 32G X 4 MM 05/02/2020 12:00:[address] suspended [place] 32G X 4 MM eC W1 ([facility]) [place] 32G X 4 MM [place] 32G X 4 MM 05/02/2020 12:00:[address] suspended [place] 32G X 4 MM eC W1 ([facility]) [place] 32G X 4 MM [place] 32G X 4 MM 05/02/2020 12:00:[address] suspended [place] 32G X 4 MM eC W1 ([facility]) [place] 32G X 4 MM [place] 32G X 4 MM 05/02/2020 12:00:[address] active [place] 32G X 4 MM eC W1 ([facility]) [place] 32G X 4 MM [place] 32G X 4 MM 05/02/2020 12:00:[address] suspended [place] 32G X 4 MM eC W1 ([facility]) [place] 32G X 4 MM [place] 32G X 4 MM 05/02/2020 12:00:[address] suspended [place] 32G X 4 MM eC W1 ([facility]) [place] 32G X 4 MM [place] 32G X 4 MM 05/02/2020 12:00:[address] suspended [place] 32G X 4 MM eC W1 ([facility]) [place] 32G X 4 MM [place] 32G X 4 MM 05/02/2020 12:00:[address] suspended [place] 32G X 4 MM eC W1 ([facility]) [place] 32G X 4 MM [place] 32G X 4 MM 05/02/2020 12:00:[address] suspended [place] 32G X 4 MM eC W1 ([facility]) [place] 32G X 4 MM [place] 32G X 4 MM 05/02/2020 12:00:[address] suspended [place] 32G X 4 MM eC W1 ([facility]) [place] 32G X 4 MM [place] 32G X 4 MM 05/02/2020 12:00:[address] suspended [place] 32G X 4 MM eC W1 ([facility]) [place] 32G X 4 MM [place] 32G X 4 MM 05/02/2020 12:00:[address] suspended [place] 32G X 4 MM eC W1 ([facility]) [place] 32G X 4 MM [place] 32G X 4 MM 05/02/2020 12:00:[address] suspended [place] 32G X 4 MM eC W1 ([facility]) [place] 32G X 4 MM [place] 32G X 4 MM 05/02/2020 12:00:[address] suspended [place] 32G X 4 MM eC W1 ([facility]) [place] 32G X 4 MM [place] 32G X 4 MM 05/02/2020 12:00:[address] suspended [place] 32G X 4 MM eC W1 ([facility]) [place] 32G X 4 MM [place] 32G X 4 MM 05/02/2020 12:00:[address] suspended [place] 32G X 4 MM eC W1 ([facility]) 175 mcg 04/22/2020 12:00:00 AM EST tablet 90 TAKE ONE TABLET BY MOUTH ONCE A DAY TAKE ONE TABLET BY MOUTH ONCE A DAY SOLD: 05/04/2020 [facility] BLOOD SUGAR DIAGNOSTIC 04/11/2020 12:00:00 AM EST strip 300 TEST THREE TIMES A DAY DIRECTED WITH GLUCOMETER TEST THREE TIMES A DAY DIRECTED WITH GLUCOMETER SOLD: 04/13/2020 [facility] BLOOD SUGAR DIAGNOSTIC 04/11/2020 12:00:00 AM EST strip 300 TEST THREE TIMES A DAY DIRECTED WITH GLUCOMETER TEST THREE TIMES A DAY DIRECTED WITH GLUCOMETER SOLD: 07/15/2020 [facility] torsemide 20 MG Oral Tablet Torsemide 04/11/2020 12:00:00 AM EST ORAL completed [facility] ([facility]) Glucometer UNK 03/17/2020 12:00:00 AM EST suspend ed Glucometer eCW1 ([facility]) Test Strips - UNK 03/17/2020 12:00:00 AM EST suspended Test Strips - eCW1 ([facility]) Test Strips - UNK 03/17/2020 12:00:00 AM EST acti ve Test Strips - eCW1 ([facility]) Glucometer UNK 03/17/2020 12:00:00 AM EST suspend ed Glucometer eCW1 ([facility]) Glucometer UNK 03/17/2020 12:00:00 AM EST suspend ed Glucometer eCW1 ([facility]) Test Strips - UNK 03/17/2020 12:00:00 AM EST suspended Test Strips - eCW1 ([facility]) Glucometer UNK 03/17/2020 12:00:00 AM EST suspend ed Glucometer eCW1 ([facility]) Test Strips - UNK 03/17/2020 12:00:00 AM EST acti ve Test Strips - eCW1 ([facility]) Glucometer UNK 03/17/2020 12:00:00 AM EST suspend ed Glucometer eCW1 ([facility]) Test Strips - UNK 03/17/2020 12:00:00 AM EST acti ve Test Strips - eCW1 ([facility]) Glucometer UNK 03/17/2020 12:00:00 AM EST active Glucometer eCW1 ([facility]) Test Strips - UNK 03/17/2020 12:00:00 AM EST acti ve Test Strips - eCW1 ([facility]) Glucometer UNK 03/17/2020 12:00:00 AM EST suspend ed Glucometer eCW1 ([facility]) Glucometer UNK 03/17/2020 12:00:00 AM EST suspend ed Glucometer eCW1 ([facility]) Glucometer UNK 03/17/2020 12:00:00 AM EST suspend ed Glucometer eCW1 ([facility]) Glucometer UNK 03/17/2020 12:00:00 AM EST suspend ed Glucometer eCW1 ([facility]) Glucometer UNK 03/17/2020 12:00:00 AM EST suspend ed Glucometer eCW1 ([facility]) Test Strips - UNK 03/17/2020 12:00:00 AM EST acti ve Test Strips - eCW1 ([facility]) Glucometer UNK 03/17/2020 12:00:00 AM EST suspend ed Glucometer eCW1 ([facility]) Test Strips - UNK 03/17/2020 12:00:00 AM EST acti ve Test Strips - eCW1 ([facility]) Glucometer UNK 03/17/2020 12:00:00 AM EST suspend ed Glucometer eCW1 ([facility]) Test Strips - UNK 03/17/2020 12:00:00 AM EST suspended Test Strips - eCW1 ([facility]) Test Strips - UNK 03/17/2020 12:00:00 AM EST acti ve Test Strips - eCW1 ([facility]) Test Strips - UNK 03/17/2020 12:00:00 AM EST acti ve Test Strips - eCW1 ([facility]) Test Strips - UNK 03/17/2020 12:00:00 AM EST acti ve Test Strips - eCW1 ([facility]) Glucometer UNK 03/17/2020 12:00:00 AM EST suspend ed Glucometer eCW1 ([facility]) Glucometer UNK 03/17/2020 12:00:00 AM EST suspend ed Glucometer eCW1 ([facility]) Test Strips - UNK 03/17/2020 12:00:00 AM EST suspended Test Strips - eCW1 ([facility]) Glucometer UNK 03/17/2020 12:00:00 AM EST suspend ed Glucometer eCW1 ([facility]) Test Strips - UNK 03/17/2020 12:00:00 AM EST acti ve Test Strips - eCW1 ([facility]) Test Strips - UNK 03/17/2020 12:00:00 AM EST suspended Test Strips - eCW1 ([facility]) Glucometer UNK 03/17/2020 12:00:00 AM EST suspend ed Glucometer eCW1 ([facility]) Glucometer UNK 03/17/2020 12:00:00 AM EST suspend ed Glucometer eCW1 ([facility]) Test Strips - UNK 03/17/2020 12:00:00 AM EST suspended Test Strips - eCW1 ([facility]) Test Strips - UNK 03/17/2020 12:00:00 AM EST acti ve Test Strips - eCW1 ([facility]) Test Strips - UNK 03/17/2020 12:00:00 AM EST suspended Test Strips - eCW1 ([facility]) Test Strips - UNK 03/17/2020 12:00:00 AM EST acti ve Test Strips - eCW1 ([facility]) Test Strips - UNK 03/17/2020 12:00:00 AM EST suspended Test Strips - eCW1 ([facility]) Glucometer UNK 03/17/2020 12:00:00 AM EST suspend ed Glucometer eCW1 ([facility]) Test Strips - UNK 03/17/2020 12:00:00 AM EST acti ve Test Strips - eCW1 ([facility]) Glucometer UNK 03/17/2020 12:00:00 AM EST suspend ed Glucometer eCW1 ([facility]) Test Strips - UNK 03/17/2020 12:00:00 AM EST suspended Test Strips - eCW1 ([facility]) Glucometer UNK 03/17/2020 12:00:00 AM EST active Glucometer eCW1 ([facility]) Glucometer UNK 03/17/2020 12:00:00 AM EST suspend ed Glucometer eCW1 ([facility]) Colesevelam hydrochloride 625 MG Oral Tablet Colesevel am HCl 625 MG Colesevelam HCl 625 MG 03/08/2020 12:00:00 AM EST 3.0 {tablets_with_meals} suspended Colesevelam HCl 625 MG eCW1 ([facility]) Colesevelam hydrochloride 625 MG Oral Tablet Colesevel am HCl 625 MG Colesevelam HCl 625 MG 03/08/2020 12:00:00 AM EST 3.0 {tablets_with_meals} suspended Colesevelam HCl 625 MG eCW1 ([facility]) Colesevelam hydrochloride 625 MG Oral Tablet Colesevel am HCl 625 MG Colesevelam HCl 625 MG 03/08/2020 12:00:00 AM EST 3.0 {tablets_with_meals} active Colesevelam HCl 625 MG eCW1 ([facility]) Colesevelam hydrochloride 625 MG Oral Tablet Colesevel am HCl 625 MG Colesevelam HCl 625 MG 03/08/2020 12:00:00 AM EST 3.0 {tablets_with_meals} suspended Colesevelam HCl 625 MG eCW1 ([facility]) Colesevelam hydrochloride 625 MG Oral Tablet Colesevel am HCl 625 MG Colesevelam HCl 625 MG 03/08/2020 12:00:00 AM EST 3.0 {tablets_with_meals} suspended Colesevelam HCl 625 MG eCW1 ([facility]) Colesevelam hydrochloride 625 MG Oral Tablet Colesevel am HCl 625 MG Colesevelam HCl 625 MG 03/08/2020 12:00:00 AM EST 3.0 {tablets_with_meals} active Colesevelam HCl 625 MG eCW1 ([facility]) Colesevelam hydrochloride 625 MG Oral Tablet Colesevel am HCl 625 MG Colesevelam HCl 625 MG 03/08/2020 12:00:00 AM EST 3.0 {tablets_with_meals} suspended Colesevelam HCl 625 MG eCW1 ([facility]) Colesevelam hydrochloride 625 MG Oral Tablet Colesevel am HCl 625 MG Colesevelam HCl 625 MG 03/08/2020 12:00:00 AM EST 3.0 {tablets_with_meals} suspended Colesevelam HCl 625 MG eCW1 ([facility]) Colesevelam hydrochloride 625 MG Oral Tablet Colesevel am HCl 625 MG Colesevelam HCl 625 MG 03/08/2020 12:00:00 AM EST 3.0 {tablets_with_meals} suspended Colesevelam HCl 625 MG eCW1 ([facility]) Colesevelam hydrochloride 625 MG Oral Tablet Colesevel am HCl 625 MG Colesevelam HCl 625 MG 03/08/2020 12:00:00 AM EST 3.0 {tablets_with_meals} suspended Colesevelam HCl 625 MG eCW1 ([facility]) Colesevelam hydrochloride 625 MG Oral Tablet Colesevel am HCl 625 MG Colesevelam HCl 625 MG 03/08/2020 12:00:00 AM EST 3.0 {tablets_with_meals} suspended Colesevelam HCl 625 MG eCW1 ([facility]) Colesevelam hydrochloride 625 MG Oral Tablet Colesevel am HCl 625 MG Colesevelam HCl 625 MG 03/08/2020 12:00:00 AM EST 3.0 {tablets_with_meals} suspended Colesevelam HCl 625 MG eCW1 ([facility]) Colesevelam hydrochloride 625 MG Oral Tablet Colesevel am HCl 625 MG Colesevelam HCl 625 MG 03/08/2020 12:00:00 AM EST 3.0 {tablets_with_meals} suspended Colesevelam HCl 625 MG eCW1 ([facility]) Colesevelam hydrochloride 625 MG Oral Tablet Colesevel am HCl 625 MG Colesevelam HCl 625 MG 03/08/2020 12:00:00 AM EST 3.0 {tablets_with_meals} suspended Colesevelam HCl 625 MG eCW1 ([facility]) Colesevelam hydrochloride 625 MG Oral Tablet Colesevel am HCl 625 MG Colesevelam HCl 625 MG 03/08/2020 12:00:00 AM EST 3.0 {tablets_with_meals} active Colesevelam HCl 625 MG eCW1 ([facility]) Colesevelam hydrochloride 625 MG Oral Tablet Colesevel am HCl 625 MG Colesevelam HCl 625 MG 03/08/2020 12:00:00 AM EST 3.0 {tablets_with_meals} suspended Colesevelam HCl 625 MG eCW1 ([facility]) Colesevelam hydrochloride 625 MG Oral Tablet Colesevel am HCl 625 MG Colesevelam HCl 625 MG 03/08/2020 12:00:00 AM EST 3.0 {tablets_with_meals} suspended Colesevelam HCl 625 MG eCW1 ([facility]) Colesevelam hydrochloride 625 MG Oral Tablet Colesevel am HCl 625 MG Colesevelam HCl 625 MG 03/08/2020 12:00:00 AM EST 3.0 {tablets_with_meals} suspended Colesevelam HCl 625 MG eCW1 ([facility]) Colesevelam hydrochloride 625 MG Oral Tablet Colesevel am HCl 625 MG Colesevelam HCl 625 MG 03/08/2020 12:00:00 AM EST 3.0 {tablets_with_meals} active Colesevelam HCl 625 MG eCW1 ([facility]) Colesevelam hydrochloride 625 MG Oral Tablet Colesevel am HCl 625 MG Colesevelam HCl 625 MG 03/08/2020 12:00:00 AM EST 3.0 {tablets_with_meals} suspended Colesevelam HCl 625 MG eCW1 ([facility]) Colesevelam hydrochloride 625 MG Oral Tablet Colesevel am HCl 625 MG Colesevelam HCl 625 MG 03/08/2020 12:00:00 AM EST 3.0 {tablets_with_meals} suspended Colesevelam HCl 625 MG eCW1 ([facility]) Colesevelam hydrochloride 625 MG Oral Tablet Colesevel am HCl 625 MG Colesevelam HCl 625 MG 03/08/2020 12:00:00 AM EST 3.0 {tablets_with_meals} suspended Colesevelam HCl 625 MG eCW1 ([facility]) Colesevelam hydrochloride 625 MG Oral Tablet Colesevel am HCl 625 MG Colesevelam HCl 625 MG 03/08/2020 12:00:00 AM EST 3.0 {tablets_with_meals} suspended Colesevelam HCl 625 MG eCW1 ([facility]) Colesevelam hydrochloride 625 MG Oral Tablet Colesevel am HCl 625 MG Colesevelam HCl 625 MG 03/08/2020 12:00:00 AM EST 3.0 {tablets_with_meals} suspended Colesevelam HCl 625 MG eCW1 ([facility]) 625 mg 03/07/2020 12:00:00 AM EST tablet 180 TAKE 6 TABLETS BY MOUTH DAILY DIRECTED TAKE 6 TABLETS BY MOUTH DAILY DIRECTED SOLD: 06/15/2020 [facility] 625 mg 03/07/2020 12:00:00 AM EST tablet 180 TAKE 6 TABLETS BY MOUTH DAILY DIRECTED TAKE 6 TABLETS BY MOUTH DAILY DIRECTED SOLD: 05/15/2020 [facility] 625 mg 03/07/2020 12:00:00 AM EST tablet 180 TAKE 6 TABLETS BY MOUTH DAILY DIRECTED TAKE 6 TABLETS BY MOUTH DAILY DIRECTED SOLD: 04/10/2020 [facility] 625 mg 03/07/2020 12:00:00 AM EST tablet 180 TAKE 6 TABLETS BY MOUTH DAILY DIRECTED TAKE 6 TABLETS BY MOUTH DAILY DIRECTED SOLD: 03/08/2020 [facility] 2.5 mg 01/28/2020 12:00:00 AM EST tablet 180 TAKE ONE TABLET BY MOUTH TWICE A DAY TAKE ONE TABLET BY MOUTH TWICE A DAY SOLD: 01/31/2020 [facility] 2.5 mg 01/28/2020 12:00:00 AM EST tablet 180 TAKE ONE TABLET BY MOUTH TWICE A DAY TAKE ONE TABLET BY MOUTH TWICE A DAY SOLD: 08/05/2020 [facility] 2.5 mg 01/28/2020 12:00:00 AM EST tablet 180 TAKE ONE TABLET BY MOUTH TWICE A DAY TAKE ONE TABLET BY MOUTH TWICE A DAY SOLD: 05/04/2020 [facility] 2.5 mg 01/28/2020 12:00:00 AM EST tablet 180 TAKE ONE TABLET BY MOUTH TWICE A DAY TAKE ONE TABLET BY MOUTH TWICE A DAY SOLD: 11/06/2020 [facility] 1-0.05 % 01/15/2020 12:00:00 AM EST cream 90 APPLY 1 APPLICATION TWO TIMES A DAY TO AREAS ON LEGS & FEET WITH RASH APPLY 1 APPLICATION TWO TIMES A DAY TO AREAS ON LEGS & FEET WITH RASH SOLD: 02/13/2020 [facility] 1-0.05 % 01/15/2020 12:00:00 AM EST cream 90 APPLY 1 APPLICATION TWO TIMES A DAY TO AREAS ON LEGS & FEET WITH RASH APPLY 1 APPLICATION TWO TIMES A DAY TO AREAS ON LEGS & FEET WITH RASH SOLD: 01/25/2020 [facility] 32 gauge x 5/32" 01/10/2020 12:00:00 AM EST needle 180 USE WITH INSULIN PEN MAXIMUM DAILY DOSE = 6 USE WITH INSULIN PEN MAXIMUM DAILY DOSE = 6 SOLD: 01/10/2020 [facility] 1-0.05 % 01/04/2020 12:00:00 AM EST cream 90 APPLY TO AFFECTED AREA(S) ON LEGS/FEET WITH RASH TWICE A DAY APPLY TO AFFECTED AREA(S) ON LEGS/FEET W ITH RASH TWICE A DAY SOLD: 01/10/2020 [facility] 1-0.05 % 01/04/2020 12:00:00 AM EST cream 90 APPLY TO AFFECTED AREA(S) ON LEGS/FEET WITH RASH TWICE A DAY APPLY TO AFFECTED AREA(S) ON LEGS/FEET W ITH RASH TWICE A DAY SOLD: 03/08/2020 [facility] Prevagen Extra Strength 12/23/2019 12:00:00 AM EDT ORAL active [facility] ([facility]) Ocuvite Adult 50+ 12/23/2019 12:00:00 AM EDT ORAL active [facility] ([facility]) 1-0.05 % 12/14/2019 12:00:00 AM EDT cream 45 APPLY TO AFFECTED AREA(S) ON LEGS/FEET WITH RASH TWO TIMES A DAY APPLY TO AFFECTED AREA(S) ON LEGS/FEET W ITH RASH TWO TIMES A DAY SOLD: 02/08/2020 [facility] 1-0.05 % 12/14/2019 12:00:00 AM EDT cream 45 APPLY TO AFFECTED AREA(S) ON LEGS/FEET WITH RASH TWO TIMES A DAY APPLY TO AFFECTED AREA(S) ON LEGS/FEET W ITH RASH TWO TIMES A DAY SOLD: 12/17/2019 [facility] 25 mg 10/29/2019 12:00:00 AM EDT tablet 180 TAKE ONE TABLET BY MOUTH TWICE A DAY TAKE ONE TABLET BY MOUTH TWICE A DAY SOLD: 05/04/2020 [facility] 25 mg 10/29/2019 12:00:00 AM EDT tablet 180 TAKE ONE TABLET BY MOUTH TWICE A DAY TAKE ONE TABLET BY MOUTH TWICE A DAY SOLD: 11/08/2019 [facility] 25 mg 10/29/2019 12:00:00 AM EDT tablet 180 TAKE ONE TABLET BY MOUTH TWICE A DAY TAKE ONE TABLET BY MOUTH TWICE A DAY SOLD: 08/05/2020 [facility] 25 mg 10/29/2019 12:00:00 AM EDT tablet 180 TAKE ONE TABLET BY MOUTH TWICE A DAY TAKE ONE TABLET BY MOUTH TWICE A DAY SOLD: 01/31/2020 [facility] 625 mg 10/23/2019 12:00:00 AM EDT tablet 180 TAKE 6 TABLETS BY MOUTH DAILY DIRECTED TAKE 6 TABLETS BY MOUTH DAILY DIRECTED SOLD: 01/10/2020 [facility] 625 mg 10/23/2019 12:00:00 AM EDT tablet 180 TAKE 6 TABLETS BY MOUTH DAILY DIRECTED TAKE 6 TABLETS BY MOUTH DAILY DIRECTED SOLD: 02/08/2020 [facility] 625 mg 10/23/2019 12:00:00 AM EDT tablet 180 TAKE 6 TABLETS BY MOUTH DAILY DIRECTED TAKE 6 TABLETS BY MOUTH DAILY DIRECTED SOLD: 12/08/2019 [facility] 40 mg 10/12/2019 12:00:00 AM EDT capsule,delayed release (DR/EC) 90 TAKE ONE CAPSULE BY MOUTH EVERY DAY TAKE ONE CAPSULE BY MOUTH EVERY DAY SOLD: 01/10/2020 [facility] 40 mg 10/12/2019 12:00:00 AM EDT capsule,delayed release (DR/EC) 90 TAKE ONE CAPSULE BY MOUTH EVERY DAY TAKE ONE CAPSULE BY MOUTH EVERY DAY SOLD: 04/10/2020 [facility] 20 mg 09/15/2019 12:00:00 AM EDT tablet 450 TAKE 3 TABLETS BY MOUTH IN THE MORNING AND 2 TABLETS IN THE AFTERNOON TAKE 3 TABLETS BY MOUTH IN THE MORNING AND 2 TABLETS IN THE AFTERNOON SOLD: 06/09/2020 [facility] 20 mg 09/15/2019 12:00:00 AM EDT tablet 450 TAKE 3 TABLETS BY MOUTH IN THE MORNING AND 2 TABLETS IN THE AFTERNOON TAKE 3 TABLETS BY MOUTH IN THE MORNING AND 2 TABLETS IN THE AFTERNOON SOLD: 12/08/2019 [facility] 20 mg 09/15/2019 12:00:00 AM EDT tablet 450 TAKE 3 TABLETS BY MOUTH IN THE MORNING AND 2 TABLETS IN THE AFTERNOON TAKE 3 TABLETS BY MOUTH IN THE MORNING AND 2 TABLETS IN THE AFTERNOON SOLD: 03/08/2020 [facility] 1-0.05 % 09/13/2019 12:00:00 AM EDT cream 90 APPLY TO AFFECTED AREA(S) LEGS/FEET WITH RASH TWO TIMES A DAY APPLY TO AFFECTED AREA(S) LEGS/FEET WITH RASH TWO TIMES A DAY SOLD: 12/08/2019 [facility] BLOOD SUGAR DIAGNOSTIC 06/20/2019 12:00:00 AM EDT strip 300 USE FOUR TIMES A DAY FOR TESTING BLOOD SUGARS USE FOUR TIMES A DAY FOR TESTING BLOOD SUGARS SOLD: 11/19/2019 [facility] BLOOD SUGAR DIAGNOSTIC 06/20/2019 12:00:00 AM EDT strip 300 USE FOUR TIMES A DAY FOR TESTING BLOOD SUGARS USE FOUR TIMES A DAY FOR TESTING BLOOD SUGARS SOLD: 01/31/2020 [facility] 100 unit/mL (3 mL) 05/15/2019 12:00:00 AM EDT insulin pen 45 INJECT PER SLIDING SCALE THREE TIMES A DAY MAX OF 50 UNITS PER DAY INJECT PER SLIDING SCALE THREE TIMES A DAY MAX OF 50 UNITS PER DAY SOLD: 01/10/2020 [facility] 100 unit/mL (3 mL) 05/15/2019 12:00:00 AM EDT insulin pen 45 INJECT PER SLIDING SCALE THREE TIMES A DAY MAX OF 50 UNITS PER DAY INJECT PER SLIDING SCALE THREE TIMES A DAY MAX OF 50 UNITS PER DAY SOLD: 04/10/2020 [facility] 100 mg 05/13/2019 12:00:00 AM EDT tablet 90 TAKE ONE TABLET BY MOUTH EVERY DAY TAKE ONE TABLET BY MOUTH EVERY DAY SOLD: 11/08/2019 [facility] 100 mg 05/13/2019 12:00:00 AM EDT tablet 90 TAKE ONE TABLET BY MOUTH EVERY DAY TAKE ONE TABLET BY MOUTH EVERY DAY SOLD: 02/08/2020 [facility] 175 mcg 04/23/2019 12:00:00 AM EST tablet 90 TAKE ONE TABLET BY MOUTH ONCE A DAY TAKE ONE TABLET BY MOUTH ONCE A DAY SOLD: 01/25/2020 [facility] 100 unit/mL (3 mL) 12/26/2018 12:00:00 AM EDT insulin pen 90 INJECT 80 UNITS UNDER THE SKIN TWICE A DAY INJECT 80 UNITS UNDER THE SKIN TWICE A DAY SOLD: 11/08/2019 [facility] torsemide 20 MG Oral Tablet Torsemide 20MG Oral Tablet Torsemide 20MG Oral Tablet 11/13/2017 12:00:00 AM EDT 1 aborted torsemide 20 MG Oral Tablet IVONNE (Myranda Reagan MD [facility]) Aspirin 81 MG Oral Tablet Aspirin 81 MG Tablet Aspirin 81 MG Tablet 04/22/2015 12:00:00 AM EST 1 aborted aspirin 81 MG Oral Tablet IVONNE (Myranda Reagan MD [facility]) dabigatran etexilate 150 MG Oral Capsule [Pradaxa] Pra yifan 150 MG Capsule Pradaxa 150 MG Capsule 04/22/2015 12:00:00 AM EST 1 aborted dabigatran etexilate 150 MG Oral Capsule [Pradaxa] IVONNE (Myranda Reagan MD [facility]) Magnesium 64 MG Tablet Magnesium 64 MG Tablet 04/22/2015 12:00:[address] 1 aborted Magnesium IVONNE (Main Reagan MD [facility]) valacyclovir 1000 MG Oral Tablet ValACYclovir HCl 1 GM Tablet ValACYclovir HCl 1 GM Tablet 04/22/2015 12:00:00 AM EST 1 aborted valacyclovir 1000 MG Oral Tablet IVONNE (Myranda Reagan MD [facility]) Salicylic Acid 0.06 MG/MG Topical Gel [Keralyt] Keralyt 6 % Gel Keralyt 6 % Gel 04/22/2015 12:00:00 AM EST aborted salicylic acid 0.06 MG/MG Topical Gel [Keralyt] IVONNE (Myranda Reagan MD [facility]) Allopurinol 300 MG Oral Tablet Allopurinol 300 MG Tabl et Allopurinol 300 MG Tablet 04/22/2015 12:00:00 AM EST 1 aborted allopurinol 300 MG Oral Tablet IVONNE (Myranda Reagan MD [facility]) Omeprazole 40 MG Delayed Release Oral Ca psule Omeprazole 40 MG Capsule Delayed Release Omeprazole 40 MG Capsule Delayed Release 04/22/2015 12:00:00 AM EST 1 aborted omeprazole 40 MG Del ayed Release Oral Capsule IVONNE (Myranda Reagan MD [facility]) Mupirocin 0.02 MG/MG Topical Ointment Mupirocin 2 % Oi ntment Mupirocin 2 % Ointment 04/22/2015 12:00:00 AM EST aborted mupirocin 0.02 MG/MG Topical Ointment IVONNE (Myranda Reagan MD [facility]) Colesevelam hydrochloride 625 MG Oral Tablet [Welchol] Welchol 625 MG Tablet Welchol 625 MG Tablet 04/22/2015 12:00:00 AM EST aborted colesevelam hydrochloride 625 MG Oral Tablet [Welchol] IVONNE (Myranda Reagan MD [facility]) Glucosamine Chondroitin Complx Tablet Glucosamine Chondroiti n Complx Tablet 04/22/2015 12:00:00 AM EST aborted Glucosamine Chondroitin Complx IVONNE (Myranda Reagan MD [facility]) Insurance Providers Payer name Policy type / Coverage type Policy ID Covered constitution party ID Covered constitution party's relationship to oliva Policy Oliva Plan Information [id number] [facility] B [id number] [id number] Self [id number] [facility] B [id number] [id number] Self [id number] [facility] Part B [id number] 2.0.1.54[id number] Self [id number] [place] Primary [id number] 2.0.1.761450.3.227.99.991.47941.0 Self [id number] Medicare (Part B) Medicare Primary [id number] 2.0.1.194491.3.227.99.572.30062.0 Self 1 [id number] Medicare (Part B) Medicare Primary [id number] 2.0.1.316103.3.227.99.572.12105.0 Self 1 [id number] [place] Medicare Primary [id number] Self [id number] Medicare (Part B) Medicare Primary [id number] Self Medicare (Part B) Medicare Primary [id number] 2.0.1.588038.3.227.99.572.51786.0 Self 1 [id number] Medicare (Part B) Medicare Primary [id number] Self [id number] Medicare (Part B) Medicare Primary [id number] Self [id number] Medicare (Part B) Medicare Primary [id number] 2.16.840.1.575160.3.227.99.572.99489.0 Self [id number] MEDICARE [id number] SP [id number] Medicare (Part B) Medicare Primary [id number] Self [id number] [place] Medicare Primary [id number] Self [id number] MEDICARE M [id number] S [id number] A Medicare (Part B) Medicare Primary [id number] 2.16840.1.656805.3.227.99.572.41982.0 Self [id number] [place] Medicare Primary [id number] Self [id number] MEDICARE - [place] [id number] S [id number] Medicare (Part B) Medicare Primary [id number] 2.16840.1.112431.3.227.99.572.36450.0 Self 1 [id number] Medicare [place] Medicare Primary [id number] 2.16.840.1.387917.3.227.99.991.80649.0 Self [id number] Medicare (Part B) Medicare Primary [id number] 2.16840.1.134287.3.227.99.572.67734.0 Self 1 [id number] MEDICARE [id number] SP [id number] A Medicare Medicare Primary [id number] Self Medicare [place] Medicare Primary [id number] 2.16.840.1.075177.3.227.99.991.65963.0 Self 4 [id number] [facility] EMPIRE OMER DIV [id number] SP [id number] [facility] [id number] SP [id number] [facility] EMPIRE OMER DIV [id number] SP [id number] [facility] [place] Medigap Part B [id number] Self [id number] [place] Plan-[employer] Medigap Part B [id number] Self [id number] [place] Plan-[employer] Medigap Part B [id number] Self [id number] [facility] [place] Medigap Part B [id number] Self [id number] Medicare Dme Supplies Medigap Part B [id number] 2.0.1.664371.3.227.99.991.24990.0 Self [id number] [facility] [place] Plan Medigap Part B [id number] 2.0.1.169829.3.227 .99.510.57480.0 Self [id number] [facility] Medicare Part A [place] Medicare Primary [id number] 2.16.840.1.780482.3.227.99.510.13988.0 Self 4 [id number] MEDICARE -[facility] [id number] 18 [id number] [facility] PHYSICAL NETWORK -[facility] [id number] 18 [id number] [place] Plan-[facility] Medigap Part B [id number] 2.16.840.1.838614.3.227.99.572.77835.0 Self [id number] [facility] [place] Plan Medigap Part B [id number] 2.16.840.1.874898.3.227 .99.510.24707.0 Self [id number] [facility] Medicare Part A [place] Medicare Primary [id number] 2.16.840.1.795340.3.227.99.510.19715.0 Self [id number] [place] Plan-[facility] Medigap Part B [id number] 2.16.840.1.143479.3.227.99.572.02564.0 Self [id number] [facility] [place] Plan Medigap Part B [id number] 2.16.840.1.995815.3.227 .99.510.86985.0 Self [id number] Medicare Part A [place] Medicare Primary [id number] 2.16.840.1.175793.3.227.99.510.94246.0 Self [id number] [facility] [id number] SP [id number] MEDICARE [id number] SP [id number] A [place] Plan Medigap Part B [id number] 2.16.840.1.322654.3.227.99 .177.69423.0 Self [id number] Medicare - [place] Medicare Primary [id number] 2.16.840.1.138712.3.227.99.177.68366.0 Self 4 [id number] [facility] [place] Plan Medigap Part B [id number] 2.16.840.1.506541.3.227 .99.510.97100.0 Self [id number] Medicare Part A [place] Medicare Primary [id number] 2.16.840.1.058136.3.227.99.510.72595.0 Self [id number] [facility] [place] Plan Medigap Part B [id number] 2.16.840.1.003333.3.227 .99.510.01960.0 Self [id number] Medicare Part A [place] Medicare Primary [id number] 2.16.840.1.882126.3.227.99.510.68184.0 Self [id number] [place] Plan-[facility] Medigap Part B [id number] 2.16840.1.195179.3.227.99.572.48172.0 Self [id number] [place] Plan-[facility] Medigap Part B [id number] 2.0.1.826888.3.227.99.572.77544.0 Self [id number] MEDICARE PART A -O/P [id number] 18 [id number] [facility] [place] Plan Medigap Part B [id number] 2.0.1.671764.3.227 .99.510.29530.0 Self [id number] Medicare Part A [place] Medicare Primary [id number] 2.16840.1.178579.3.227.99.510.89809.0 Self 1 [id number] MEDICARE PART A [facility] [id number] 18 [id number] [facility] O [id number] S [id number] MEDICARE C [id number] S [id number] A Medicare Part B [facility] Other 0 [id number] S elf 0 [facility] [place] - [facility] Other 0 [id number] Self 0 [place] Plan Medigap Part B [id number] 2.16840.1.627226.3.227.99 .177.27620.0 Self [id number] Medicare - [facility] Medicare Primary [id number] 2.16840.1.659409.3.227.99.177.39164.0 Self [id number] [place] Plan-[employer] [facility] Medigap Part B [id number] 2.16840.1.603455.3.227.99.572.86477.0 Self [id number] [place] Plan Medigap Part B [id number] 2.16.840.1.190699.3.227.99 .177.58146.0 Self [id number] Medicare - [place] Medicare Primary [id number] 2.16.840.1.491369.3.227.99.177.05526.0 Self [id number] [place] Plan-[facility] Medigap Part B [id number] 2.16840.1.226663.3.227.99.572.45905.0 Self [id number] MEDICAID [id number] SP [id number] [facility] PART B C [id number] S [id number] [place] Plan-[employer] [facility] Medigap Part B [id number] 2.16840.1.647054.3.227.99.572.65527.0 Self [id number] [facility] [id number] Self Medicare Part B Medicare Primary [id number] Self [place] Plan-[facility] Medigap Part B [id number] Self MEDICARE [id number] SP [id number] MANAGED PHYSICAL NETWORK -R [id number] 18 [id number] MEDICARE [place] [id number] SE [id number] [place] ([place], [place] Medicare Primary [id number] Self Medicare Medicare Primary [id number] Self BLUE CROSS O [id number] S [id number] MEDICARE -O/P [id number] 18 [id number] [facility] Health [facility] Organization (HMO) [id number] Self UNHC AMERICHOICE XIX -HMO [id number] 18 [id number] UNHC AMERICHOICE XIX -HMO [id number] 18 [id number] UNITED HEALTHCARE S [id number] S [id number] MEDICARE -RECURRING [id number] 18 [id number] UNITED HEALTHCARE [id number] SP [id number] MEDICARE - [place] UNAVAILABLE UNAVAILABLE [place] MEDICARE DIVISION [id number] S [id number] BCBS EMPIRE [id number] S [id number] UNITED HEALTHCARE [id number] S [id number] UNITED HEALTHCARE [id number] SP [id number] [facility] [place] - [employer] Other 0 [id number] Self 0 Medicare Part B of [place] [facility] [place] Other 0 [id number] Self 0 [facility] - [employer] Other [id number] Self 0 Medicare Part [place] of [place] Other 0 [id number] Self 0 [facility] [place] - [employer] Other 0 [id number] Self 0 Medicare Part [place] Other 0 [id number] Self 0 BCBS E[place] OMER DIV UNAVAILABLE UNAVAILABLE MEDICARE PART A -O/P [id number] 18 [id number] EMPIRE BLUE CROSS BLUE SHIELD -O/P [id number] 18 [id number] [facility] MEDICARE PART A [facility] [id number] 18 [id number] [facility] EMPIRE PLAN [id number] 18 [id number] [place] BLUE CROSS BLUE SHIELD -O/P [id number] 18 [id number] UNAVAILABLE UNAVAILA BLE EXCELLUS BLUE CROSS BLUE SHIELD HEA [id number] S [id number] MEDICARE [facility] [id number] S [id number] [facility]ICARE [facility] [id number] S [id number] MEDICARE PART A [facility] [id number] 18 [id number] [facility] [place] Plan Medigap Part B [id number] Self [id number] [facility] Medicare Part A [place] Medicare Primary [id number] Self [id number] [facility] [place] Medigap Part B [id number] Self [id number] [place] Plan-[facility] Medigap Part B [id number] Self [id number] Problems, Conditions, and Diagnoses Code Display Name Description Problem Type Effective Dates Data Source(s) N18.9 823354020 Chronic kidney disease, unspecified CKD s tage Problem 11/10/2020 12:00:00 AM EDT eCW1 ([facility]) N26.1 [id number] Atrophic kidney Problem 11/10/2020 12:00:00 AM EDT eCW1 ([facility]) N32.9 673421664 Lesion of bladder Problem 11/10/2020 12:00:0 0 AM EDT eCW1 ([facility]) N32.89 524876051 Bladder wall thickening Problem 10/10/2020 1 2:00:00 AM EDT eCW1 ([facility]) [id number] 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 Borderline Glaucoma Open Angle with Borderline Findings Both Eyes Problem 07/27/2020 12:00:00 AM EDT IVONNE (Myranda Reagan MD [facility]) [id number] 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 Borderline Glaucoma Open Angle with Borderline Findings Both Eyes Problem 07/27/2020 12:00:00 AM EDT IVONNE (Myranda Reagan MD [facility]) [id number] 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 Borderline Glaucoma Open Angle with Borderline Findings Both Eyes Problem 07/27/2020 12:00:00 AM EDT IVONNE (Myranda Reagan MD [facility]) [id number] Cirrhosis of liver Cirrhosis of liver Problem 12:00:00 AM EDT MEDENT ([facility]) K21.9 980570405 Gastroesophageal ref lux disease, unspecified whether esophagitis present Problem 06/22/2020 12:00:00 AM EDT eCW1 ([facility]ly [facility]) K75.81 [id number] GALAVIZ (nonalcoholic steatohepatitis) Probl em 05/19/2020 12:00:00 AM EDT eCW1 ([facility]) I85.11 43169166 Secondary esophageal varices with bleedin g Problem 05/19/2020 12:00:00 AM EDT eCW1 ([facility]) K74.60 955244974 Unspecified cirrhosis of liver Problem 05/19/2020 12:00:00 AM EDT eCW1 ([facility]) M1A.0720 [id number] 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 Problem 03/17/2020 12:00:00 AM EST eCW1 ([facility]) [id number] 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 Problem 11/27/2019 12:00:00 AM EDT IVONNE (Myranda Reagan MD [facility]) [id number] 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 Problem 11/27/2019 12:00:00 AM EDT IVONNE (Myranda Reagan MD [facility]) [id number] 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 Problem 11/27/2019 12:00:00 AM EDT IVONNE (Myranda Reagan MD [facility]) Surgeries/Procedures Procedure Description Date Indications Data Source(s) Complex Chronic Care Management SVC 1St 60 Min 021 12:00:00 AM EDT MEDENT ([facility]) Complex Chronic Care MGMT Service Ea Addl 30 Min 11/15 12:00:00 AM EDT MEDENT ([facility]) OFFICE OUTPATIENT VISIT 15 MINUTES 10/12/2020 12:00:00 AM EDT MED[facility] ([facility]) Complex Chronic Care Management SVC 1St 60 Min 021 12:00:00 AM EDT MEDENT ([facility]) Complex Chronic Care MGMT Service Ea Addl 30 Min 09/21 12:00:00 AM EDT MEDENT ([facility]) PNEUMOCOCCAL POLYSAC VACCINE 23-V 2 />YR SUBQ/IM 09/13 12:00:00 AM EDT eCW1 ([facility]) Chronic Care Management Services Ea Addl 20 Min 2020 12:00:00 AM EDT MEDENT ([facility]) Chronic Care MGMT 20 Mins Clinical Staff Time Per Calendar M onth 08/18/2020 12:00:00 AM EDT MEDENT ([facility]) UPPER GI NDSC DX W/WO COLLECTION SPECIMEN 08/10/2020 1 2:00:00 AM EDT MEDENT ([facility]) Visual Field (WAIVER OF LIABILITY ON FILE (ABN)) Visua l Field (WAIVER OF LIABILITY ON FILE (ABN)) 08/05/2020 12:00:00 AM EDT IVONNE (Myranda Reagan MD [facility]) Cataract surgery (procedure) History of cataract surgery PC IOL OU Dr. Murillo 07/27/2020 12:00:00 AM EDT IVONNE (Myranda lopez MD [facility]) Comprehensive eye exam established patient (Signi/Sep Eval. & Man.) Comprehensive eye exam established patient (Signi/Sep Eval. & Man.) 07/27/2020 12:00:00 AM EDT IVONNE (Myranda Reagan MD [facility]) Scodi Retina, with interpretation and re port (WAIVER OF LIABILITY ON FILE (ABN)) Scodi Retina, with interpretation and re port (WAIVER OF LIABILITY ON FILE (ABN)) 07/27/2020 12:00:00 AM EDT IVONNE (Artis Reagan MD [facility]) Surgical / procedural history Pacemaker, Esophageal V arice removal 2019 Surgical / procedural history Pacemaker, Esophageal Varice removal 201907/27/2020 12:00:00 AM EDT IVONNE (Myranda lopez MD [facility]) COMPUTERIZED OPHTHALMIC IMAGING RETINA Scodi Retina, w ith interpretation and report (GA) 07/27/2020 12:00:00 AM EDT IVONNE (Artis Reagan MD [facility]) Comprehensive eye exam established patient (25) Compre hensive eye exam established patient (25) 07/27/2020 12:00:00 AM EDT IVONNE (Myranda Reagan MD [facility]) OFFICE OUTPATIENT NEW 45 MINUTES 07/21/2020 12:00:00 A M EDT MED[facility] ([facility]) OFFICE OUTPATIENT VISIT 10 MINUTES 07/11/2020 12:00:00 AM EDT MEDENT ([facility]) Chronic Care Management Services Ea Addl 20 Min 2020 12:00:00 AM EDT [facility] ([facility]) Chronic Care MGMT 20 Mins Clinical Staff Time Per Calendar [facility] 07/06/2020 12:00:00 AM EDT MEDENT ([facility]) Chronic Care Management Services Ea Addl 20 Min 2020 12:00:00 AM EDT MED[facility] ([facility]) Chronic Care MGMT 20 Mins Clinical Staff Time Per Calendar M [facility] 05/27/2020 12:00:00 AM EDT MEDENT ([facility]) ECG ROUTINE ECG W/LEAST 12 LDS W/I&R 05/19/2020 12:00: 00 AM EDT MED[facility] ([facility]) OFFICE OUTPATIENT VISIT 25 MINUTES 05/19/2020 12:00:00 AM EDT [facility] ([facility]) Complex Chronic Care Management SVC 1St 60 Min 021 12:00:00 AM EDT MEDENT ([facility]) Complex Chronic Care MGMT Service Ea Addl 30 Min 05/18 12:00:00 AM EDT [facility] ([facility]) Complex Chronic Care Management SVC 1St 60 Min 021 12:00:00 AM EST [facility] ([facility]) Complex Chronic Care MGMT Service Ea Addl 30 Min 04/19 12:00:00 AM EST [facility] ([facility]) OFFICE OUTPATIENT VISIT 15 MINUTES 04/18/2020 12:00:00 AM EST [facility] ([facility]) Chronic Care Management Services Ea Addl 20 Min 2020 12:00:00 AM EST [facility] ([facility]) Chronic Care MGMT 20 Mins Clinical Staff Time Per Calendar M [facility] 03/07/2020 12:00:00 AM EST [facility] ([facility]) Surgical / procedural history Pacemaker, Esophageal V arice removal 2019 Surgical / procedural history Pacemaker, Esophageal Varice removal 201901/14/2020 12:00:00 AM MURPHY CORONADO (Myranda lopez MD [facility]) Refraction (WAIVER OF LIABILITY ON FILE (ABN)) Refract ion (WAIVER OF LIABILITY ON FILE (ABN)) 01/14/2020 12:00:00 AM MURPHY CORONADO (Artis Reagan MD [facility]) Comprehensive eye exam established patient (Signi/Sep Eval. & Man.) Comprehensive eye exam established patient (Signi/Sep Eval. & Man.) 01/14/2020 12:00:00 AM EST IVONNE (Myranda Reagan MD [facility]) Scodi Retina, with interpretation and re port (WAIVER OF LIABILITY ON FILE (ABN)) Scodi Retina, with interpretation and re port (WAIVER OF LIABILITY ON FILE (ABN)) 11/27/2019 12:00:00 AM EDT IVONNE (Artis Reagan MD [facility]) Comprehensive eye exam established patient (Signi/Sep Eval. & Man.) Comprehensive eye exam established patient (Signi/Sep Eval. & Man.) 11/27/2019 12:00:00 AM EDT SAVANNAH (Myranda Reagan MD [facility]) Results ID Date Data Source [id number] 12/27/2020 07:23:00 AM EDT [facility] DATE OF EXAMINATION: 12/27/2020 6:56 EDT CHEST 1 VIEW HISTORY: Chest pain TECHNIQUE: Single frontal radiograph of chest COMPARISON: None. FINDINGS: Evaluation is limited by portable technique. No prior examinations are availablefor comparison. Cardiomegaly is appreciated. Central line identified extendinginto the SVC/right atrium. Pacemaker identified in satisfactory position.Increased pulmonary vasculature with cephalization and increased interstitialmarkings raises the possibility of underlying early CHF/pulmonary vascularcongestion. Subtle right basilar atelectasis cannot be excluded. No obviouseffusion. No pneumothorax. IMPRESSION: Findings as described above suggest the possibility of cardiomegaly withpulmonary vascular congestion.No discrete focal consolidation or effusion. Electronically signed in PS360 by: Aric Montes M.D. 12/27/2020 7:17 EDT Name Value Range Interpretation Code Description Data Eugenia rce(s) Supporting Document(s) ID Date Data Source [id number] 12/27/2020 06:10:00 AM EDT [facility] Name Value Range Interpretation Code Description Data Eugenia rce(s) Supporting Document(s) WHITE BLOOD COUNT 13.7 K/mm3 4.0-10.0 [facility] RED BLOOD COUNT 3.16 M/mm3 4.50-6.00 L [facility] HEMOGLOBIN 8.5 gm/dL 14.0-18.0 L [facility] HEMATOCRIT 27.2 % 42.0-54.0 L [facility] MEAN CELL VOLUME 86.1 fl 80-96 [facility] MEAN CORPUSCULAR HEMOGLOBIN 26.9 pg 27.0-31.0 L [facility] MEAN CORPUSCULAR HGB CONC 31.3 g/dl 32.0-36.0 L [facility] RED CELL DISTRIBUTION WIDTH 18.0 % 10.0-14.5 H [facility] PLATELET COUNT 261 K/mm3 172-450 [facility] MEAN PLATELET VOLUME 12.7 fl 9.0-13.0 [facility] pital GRAN % 84.2 % 50-80.0 H [facility] IG% 1.0 % 0.0-0.2 H [facility] LYMPH % 4.5 % 25.0-50.0 L [facility] MONO % 9.9 % 2.0-10.0 [facility] EOS % 0.1 % 0-5.0 [facility] BASO % 0.3 % 0.0-2.0 [facility] GRAN # 11.5 K/mm3 2.0-8.00 H [facility] IG# 0.1 K/mm3 0.0-0.2 [facility] LYMPH # 0.6 K/mm3 1.0-5.0 L [facility] MONO # 1.4 K/mm3 0.10-1.20 H [facility] EOS # 0.0 K/mm3 0.0-0.5 [facility] BASO # 0.0 K/mm3 0.0-0.2 [facility] ID Date Data Source [id number] 12/26/2020 09:15:00 PM EDT [facility] TSYSORDER [id number] Name Value Range Interpretation Code Description Data Eugenia rce(s) Supporting Document(s) GLUCOSE 119 mg/dL 74-106 H [facility] BLOOD UREA NITROGEN 103 mg/dL 7-18 [facility] ital CREATININE 10.71 mg/dl 0.70-1.30 H [facility] SODIUM 140 mmol/L 136-145 [facility] POTASSIUM 6.3 mmol/L 3.5-5.1 H [facility] CHLORIDE 108 mmol/L 98-107 H [facility] CO2 11 mmol/L 21-32 L [facility] CALCIUM 8.3 mg/dL 8.5-10.1 L [facility] ANION GAP 21.0 mmol/L 5-12 H [facility] GLOMERULAR FILTRATION RATE 5 mL/min [facility] GFR IS CALCULATED IN mL/min/1.73m2 ABELARDO L FUNCTION: >90MILDLY DECREASED: 60-89MILDY TO MODERATELY DECREASED: 45-59 MODERATELY TO SEVERELY DECREASED: 30-44SEVERELY DECREASED: 15-29RENAL FAILURE: <15 AST 42 U/L 15-37 H [facility] ALT 46 U/L 16-63 [facility] ALKALINE PHOSPHATASE 210 U/L 46-116 H [facility] TOTAL BILIRUBIN 1.7 mg/dL 0.2-1.0 H [facility] TOTAL PROTEIN 4.6 g/dL 6.4-8.2 L [facility] ALBUMIN 2.5 gm/dL 3.4-5.0 L [facility] ID Date Data Source [id number] 12/26/2020 08:58:00 PM EDT [facility] TSYSORDER [id number] Name Value Range Interpretation Code Description Data Eugenia rce(s) Supporting Document(s) WHITE BLOOD COUNT 13.4 K/mm3 4.0-10.0 [facility] RED BLOOD COUNT 2.85 M/mm3 4.50-6.00 L [facility] HEMOGLOBIN 7.6 gm/dL 14.0-18.0 L [facility] HEMATOCRIT 24.3 % 42.0-54.0 L [facility] MEAN CELL VOLUME 85.3 fl 80-96 [facility] MEAN CORPUSCULAR HEMOGLOBIN 26.7 pg 27.0-31.0 L [facility] MEAN CORPUSCULAR HGB CONC 31.3 g/dl 32.0-36.0 L [facility] RED CELL DISTRIBUTION WIDTH 18.3 % 10.0-14.5 H [facility] PLATELET COUNT 273 K/mm3 172-450 [facility] MEAN PLATELET VOLUME 12.9 fl 9.0-13.0 [facility] Services pital GRAN % 82.1 % 50-80.0 [facility] IG% 0.7 % 0.0-0.2 [facility] LYMPH % 5.3 % 25.0-50.0 [facility] MONO % 11.0 % 2.0-10.0 [facility] EOS % 0.5 % 0-5.0 [facility] BASO % 0.4 % 0.0-2.0 [facility] GRAN # 11.0 K/mm3 2.0-8.00 [facility] IG# 0.1 K/mm3 0.0-0.2 [facility] LYMPH # 0.7 K/mm3 1.0-5.0 L [facility] MONO # 1.5 K/mm3 0.10-1.20 [facility] EOS # 0.1 K/mm3 0.0-0.5 [facility] BASO # 0.1 K/mm3 0.0-0.2 [facility] ID Date Data Source [id number] 12/26/2020 04:35:00 PM EDT [facility] sonu TSYSORDER [id number] Name Value Range Interpretation Code Description Data Eugenia rce(s) Supporting Document(s) COVID-19 NEGATIVE NEGATIVE [facility] Negative results should be treated as pr esumptive and, ifinconsistent with clinical signs and symptoms or necessaryfor patient management, should be tested with differentauthorized or cleared molecular tests.Negative results do not preclude SARS-CoV-2 infection andshould not be used as the sole basis for patient managementdecisions.This is a rapid molecular isothermal nucleic acidamplification technology (NAAT) in vitro diagnostic testutilizing a loop mediated isothermal amplification (LAMP)test with nicking endonuclease amplification reaction(NEAR) intended for the qualitative detection of nucleica crispin from the SARS-CoV-2 viral RNA in direct nasal,nasopharyngeal or throat swabs from individuals who aresuspected of COVID-19.Results are for the indentification of SARS-CoV-2 RNA. TrjNKLO-HhS-4 RNA is generally detectable in respiratorysamples during the actue phase of infection. ID Date Data Source [id number] 12/26/2020 11:59:00 AM EDT [facility] l DATE OF EXAMINATION: 12/26/2020 10:44 EDT DOP ARTI UNILATERAL HISTORY: DVT Right LOWER EXTREMITY VENOUS DOPPLER Duplex scan was performed using B-mode/barrett scale imaging and Doppler spectralanalysis and color flow. FINDINGS: Common femoral and superficial femoral veins were interrogated throughout theircourse, revealing easy compressibility and appropriate augmentation. Thepopliteal vessels are also easily compressible and show no signs of intraluminalthrombus formation. IMPRESSION: Negative study for deep venous thrombosis in the Right lower extremity. Electronically signed in PS360 by: Margi Andrews M.D. 12/26/2020 11:54 EDT Name Value Range Interpretation Code Description Data Eugenia rce(s) Supporting Document(s) ID Date Data Source [id number] 12/26/2020 12:19:00 PM EDT [facility] [id number] Name Value Range Interpretation Code Description Data Eugenia rce(s) Supporting Document(s) BLOOD TYPE ABO A [facility] RH TYPE POSITIVE [facility] ANTIBODY SCREEN NEGATIVE [facility] CROSSMATCH COMPATIBLE [facility] SEE TRANSFUSION RECORD IN [facility] FOR TRANSFUSION CROSSMATCH COMPATIBLE [facility] SEE TRANSFUSION RECORD IN [facility] FOR TRANSFUSION ID Date Data Source [id number] 12/26/2020 11:55:00 PM EDT [facility] l TSYSORDER [id number] Name Value Range Interpretation Code Description Data Eugenia rce(s) Supporting Document(s) CROSSMATCH COMPATIBLE [facility] SEE TRANSFUSION RECORD IN [facility] ARE R [facility]LAINE FOR TRANSFUSION ID Date Data Source [id number] 12/26/2020 11:50:00 AM EDT [facility] TSYSORDER [id number] Name Value Range Interpretation Code Description Data Eugenia rce(s) Supporting Document(s) GLUCOSE 86 mg/dL 74-106 [facility] BLOOD UREA NITROGEN 102 mg/dL 7-18 H [facility] ital CREATININE 10.65 mg/dl 0.70-1.30 [facility] SODIUM 139 mmol/L 136-145 [facility] POTASSIUM 5.6 mmol/L 3.5-5.1 [facility] CHLORIDE 107 mmol/L 98-107 [facility] CO2 11 mmol/L 21-32 L [facility] CALCIUM 8.4 mg/dL 8.5-10.1 L [facility] ANION GAP 21.0 mmol/L 5-12 [facility] GLOMERULAR FILTRATION RATE 5 mL/min [facility] GFR IS CALCULATED IN mL/min/1.73m2 ABELARDO L FUNCTION: >90MILDLY DECREASED: 60-89MILDY TO MODERATELY DECREASED: 45-59 MODERATELY TO SEVERELY DECREASED: 30-44SEVERELY DECREASED: 15-29RENAL FAILURE: <15 AST 40 U/L 15-37 [facility] ALT 47 U/L 16-63 [facility] ALKALINE PHOSPHATASE 210 U/L 46-116 [facility] TOTAL BILIRUBIN 1.0 mg/dL 0.2-1.0 [facility] TOTAL PROTEIN 4.9 g/dL 6.4-8.2 L [facility] ALBUMIN 2.6 gm/dL 3.4-5.0 L [facility] ID Date Data Source [id number] 12/26/2020 11:32:00 AM EDT [facility] TERRIYSORDER [id number] Name Value Range Interpretation Code Description Data Eugenia rce(s) Supporting Document(s) WHITE BLOOD COUNT 11.8 K/mm3 4.0-10.0 [facility] RED BLOOD COUNT 2.43 M/mm3 4.50-6.00 L [facility] l HEMOGLOBIN 6.4 gm/dL 14.0-18.0 *L [facility] HEMATOCRIT 20.8 % 42.0-54.0 L [facility] MEAN CELL VOLUME 85.6 fl 80-96 [facility] MEAN CORPUSCULAR HEMOGLOBIN 26.3 pg 27.0-31.0 L [facility] MEAN CORPUSCULAR HGB CONC 30.8 g/dl 32.0-36.0 L [facility] RED CELL DISTRIBUTION WIDTH 19.8 % 10.0-14.5 H [facility] PLATELET COUNT 286 K/mm3 172-450 [facility] MEAN PLATELET VOLUME 13.2 fl 9.0-13.0 H [facility] pital GRAN % 80.5 % 50-80.0 [facility] IG% 0.4 % 0.0-0.2 [facility] LYMPH % 6.4 % 25.0-50.0 L [facility] MONO % 10.8 % 2.0-10.0 H [facility] EOS % 1.6 % 0-5.0 [facility] BASO % 0.3 % 0.0-2.0 [facility] GRAN # 9.5 K/mm3 2.0-8.00 [facility] IG# 0.1 K/mm3 0.0-0.2 [facility] LYMPH # 0.8 K/mm3 1.0-5.0 L [facility] MONO # 1.3 K/mm3 0.10-1.20 [facility] EOS # 0.2 K/mm3 0.0-0.5 [facility] BASO # 0.0 K/mm3 0.0-0.2 [facility] ID Date Data Source [id number] 12/26/2020 11:18:00 AM EDT [facility] TSYS[facility] [id number] Name Value Range Interpretation Code Description Data Eugenia rce(s) Supporting Document(s) POLYCHROMASIA 1+ [facility] HYPOCHROMIA 2+ [facility] POIKILOCYTOSIS 1+ [facility] ANISOCYTOSIS 2+ [facility] TARGET CELLS 1+ [facility] PLATELET ESTIMATE NORMAL NORMAL [facility] RBC MORPHOLOGY EXPECTED RESULTS:NORMAL= NORMOCHROMIC, NORMOCYTIC CELLSAbnormal Morphologic Findings > or = to 1+ are reported.Clinicopathologic correlation by the provider is required todetermine significance of finding. ID Date Data Source [id number] 12/26/2020 11:59:00 AM EDT [facility] l TSYSORDER [id number] Name Value Range Interpretation Code Description Data Eugenia rce(s) Supporting Document(s) PROTHROMBIN TIME (PATIENT) 13.6 SECONDS 9.1-11.3 H [facility] INR 1.34 0.87-1.06 [facility] ID Date Data Source [id number] 12/26/2020 11:59:00 AM EDT [facility] l TSYSORDER [id number] Name Value Range Interpretation Code Description Data Eugenia rce(s) Supporting Document(s) PARTIAL THROMBOPLASTIN TIME 31.3 SECONDS 21.3-29.7 [facility] ID Date Data Source [id number] 12/26/2020 11:59:00 AM EDT [facility] l TSYSORDER [id number] Name Value Range Interpretation Code Description Data Eugenia rce(s) Supporting Document(s) DDIMER 5.43 mg/LFEU 0.19-0.80 [facility] ID Date Data Source [id number] 12/07/2020 09:02:00 PM EDT [facility] Name Value Range Interpretation Code Description Data Eugenia rce(s) Supporting Document(s) SARS coronavirus 2 RNA [Presence] in Res piratory specimen by JAMIE with probe detection NEGATIVE [facility] This lab was ordered by [facility] a nd reported by [facility]. ID Date Data Source [id number] 11/28/2020 10:04:00 AM EDT [facility] Name Value Range Interpretation Code Description Data Eugenia rce(s) Supporting Document(s) SARS-CoV-2 (COVID 19) NEGATIVE - SARS-CoV-2 (COVID19) [facility] This lab was ordered by [facility] a nd reported by [facility]. ID Date Data Source NON [facility] [place] CYTOLOGY REQ FOR SERVI 11/10/2020 12:00:00 AM EDT eC W1 (Formerly [facility]) Name Value Range Interpretation Code Description Data Eugenia rce(s) Supporting Document(s) URINE eCW1 ([facility]) ID Date Data Source [id number] 11/10/2020 12:00:00 AM EDT eCW1 (Formerly [facility]) Name Value Range Interpretation Code Description Data Eugenia rce(s) Supporting Document(s) UA URINALYSIS eCW1 ([facility]) ID Date Data Source [id number] 10/27/2020 08:19:00 AM EDT [facility] ([facility]) Name Value Range Interpretation Code Description Data Eugenia rce(s) Supporting Document(s) Red Blood Count 4.02 4.70-6.10 [facility] ([facility]) White Blood Count 8.6 5.0-10.0 [facility] ([facility]) Hemoglobin 10.5 14.0-18.0 [facility] ([facility]) Platelets 238 172-450 [facility] ([facility] Hematocrit 34.2 42.0-52.0 [facility] ([facility]) ID Date Data Source [id number] 10/27/2020 08:19:00 AM EDT [facility] ([facility]) Name Value Range Interpretation Code Description Data Eugenia rce(s) Supporting Document(s) Glucose 152 70-106 [facility] Blood Urea Nitrogen 68.8 7-18 [facility] ([facility]) Creatinine 2.0 0.55-1.3 [facility] ([facility]) Sodium 140.3 135-145 [facility] ([facility] Glomerular filtration rate/1.73 sq M.pre dicted [Volume Rate/Area] in Serum or Plasma by Creatinine-based formula (MDRD) 33 [facility] Carbon Dioxide 21.1 21-32 [facility] Potassium 3.79 3.5-5.5 [facility] Chloride 111.5 94-110 [facility] Phosphorus 4.3 [facility]) Calcium 8.4 8.5-10.1 [facility] Albumin 3.4 3.2-5.2 [facility] ID Date Data Source [id number] 10/05/2020 02:38:00 PM EDT [facility] ([facility]) Name Value Range Interpretation Code Description Data Eugenia rce(s) Supporting Document(s) Alanine aminotransferase [Enzymatic activity/volume] in Serum or Pl asma 14 [facility] Albumin [Mass/volume] in Serum or Plasma 2.8 [facility]) Calcium [Mass/volume] in Serum or Plasma 7.8 [facility] ([facility]) Carbon dioxide, total [Moles/volume] in Serum or Plasma 20 [facility]) Alkaline phosphatase [Enzymatic activity/volume] in Serum or Plasma 1 69 [facility]) Chloride [Moles/volume] in Serum or Plasma 111 [facility] ([facility]) Potassium [Moles/volume] in Serum or Plasma 4.3 [facility] ([facility]) Sodium 138 [facility] Protein [Mass/volume] in Serum or Plasma 4.6 [facility] ([facility] Aspartate aminotransferase [Enzymatic activity/volume] in Serum or Plasma 12 [facility] ([facility] Urea nitrogen [Mass/volume] in Serum or Plasma 78 [facility] ([facility]) Creatinine For GFR 2.32 [facility] Glucose 111 83-110 [facility] ID Date Data Source [id number] 10/05/2020 02:38:00 PM EDT [facility] ([facility]) Name Value Range Interpretation Code Description Data Eugenia rce(s) Supporting Document(s) White Blood Count 7.2 5.0-10.0 [facility] ([facility]) Red Blood Count 3.87 4.00-5.40 [facility] ([facility]) Platelets 172 172-450 [facility] Hemoglobin 9.1 [facility] ([facility]) Hematocrit 32.4 [facility] ([facility]) ID Date Data Source [id number] 09/25/2020 01:00:00 AM EDT [facility] Name Value Range Interpretation Code Description Data Eugenia rce(s) Supporting Document(s) SARS coronavirus 2 RNA [Presence] in Res piratory specimen by JAMIE with probe detection NEGATIVE [facility] This lab was ordered by [facility] a nd reported by [facility]. ID Date Data Source [id number] 09/05/2020 08:31:00 AM EDT [facility] Name Value Range Interpretation Code Description Data Eugenia rce(s) Supporting Document(s) Red Blood Count 4.00 4.70-6.10 [facility] ([facility]) White Blood Count 8.7 5.0-10.0 [facility] ([facility]) Platelets 223 172-450 [facility] Hemoglobin 9.3 14.0-18.0 [facility] ([facility]) Hematocrit 30.3 42.0-52.0 [facility] ([facility]) ID Date Data Source [id number] 09/05/2020 08:31:00 AM EDT [facility] Name Value Range Interpretation Code Description Data Eugenia rce(s) Supporting Document(s) Albumin [Mass/volume] in Serum or Plasma 3.4 [facility] ([facility]) Alanine aminotransferase [Enzymatic activity/volume] in Serum or Pl asma 17 [facility] ([facility]) Calcium [Mass/volume] in Serum or Plasma 8.8 [facility] ([facility]) Carbon dioxide, total [Moles/volume] in Serum or Plasma 27.0 [facility] ([facility]) Chloride [Moles/volume] in Serum or Plasma 107.9 [facility] ([facility]) Alkaline phosphatase [Enzymatic activity/volume] in Serum or Plasma 2 30 [facility] ([facility]) Potassium [Moles/volume] in Serum or Plasma 4.31 [facility] ([facility]) Sodium 139.5 [facility] ([facility]) Aspartate aminotransferase [Enzymatic activity/volume] in Serum or Plasma 30 [facility] ([facility]) Protein [Mass/volume] in Serum or Plasma 5.5 [facility] ([facility]) Glucose 128 70-106 [facility] ([facility]) Urea nitrogen [Mass/volume] in Serum or Plasma 43.4 [facility] ([facility]) Creatinine For GFR 1.8 [facility] ([facility]) ID Date Data Source [id number] 08/05/2020 11:15:00 AM EDT [facility] Name Value Range Interpretation Code Description Data Eugenia rce(s) Supporting Document(s) SARS-CoV-2 (COVID-19) RNA [Presence] in Respiratory specimen by JAMIE with probe detection Not Detected [facility] This lab was ordered by [facility] and reported by [employer] ID Date Data Source [id number] 05/05/2020 02:49:00 PM EST [facility] Name Value Range Interpretation Code Description Data Eugenia rce(s) Supporting Document(s) SARS coronavirus 2 RNA [Presence] in Res piratory specimen by JAMIE with probe detection NEGATIVE [facility] This lab was ordered by [facility] a nd reported by [facility]. ID Date Data Source [id number] 05/05/2020 12:37:00 PM EST [facility] ([facility]) Name Value Range Interpretation Code Description Data Eugenia rce(s) Supporting Document(s) Microscopic observation [Identifier] in Unspecified specimen by Non- gynecological cytology method Laboratory test result [facility] ([facility]) SPECIMEN: Peritoneal fluid 1200 ml cloudy yellow SPECIMEN ADEQUACY: Satisfactory for evaluation CATEGORIZATION: No Malignancy identified DESCRIPTIONS: Specimen consists of mesothelial cells in a background of blood elements. COMMENTS: 05/06/2020 - 929 Signed KEYSHA JEROME (ASCP) 05/06/2020 0930 (Prelim) Signed DALTON CHAU MD 05/09/2020 0933 ID Date Data Source [id number] 05/05/2020 11:50:00 AM EST [facility] ([facility]) Name Value Range Interpretation Code Description Data Eugenia rce(s) Supporting Document(s) Laboratory test finding (navigational concept) 0.7 g/dL [facility] ([facility]) Laboratory test finding (navigational concept) Laboratory test result [facility] ([facility]) ID Date Data Source [id number] 05/05/2020 11:50:00 AM EST [facility] ([facility]) Name Value Range Interpretation Code Description Data Eugenia rce(s) Supporting Document(s) Laboratory test finding (navigational concept) 146 mg/dL [facility] ([facility]) Laboratory test finding (navigational concept) Laboratory test result [facility] ([facility]) ID Date Data Source [id number] 05/05/2020 11:50:00 AM EST [facility] ([facility]) Name Value Range Interpretation Code Description Data Eugenia rce(s) Supporting Document(s) Laboratory test finding (navigational concept) Laboratory test result [facility] ([facility]) If aerobic or anaerobic growth is detected within the next 7-21 days, an addendum will follow. . . FULL REPORT IN LAB NOTES (eCW and [facility]). NO GROWTH AEROBICALLY Gram Stain Laboratory test result [facility] ([facility]) MANY WBCS NO ORGANISMS SEEN ID Date Data Source [id number] 05/05/2020 11:03:00 AM EST [facility] ([facility]) Name Value Range Interpretation Code Description Data Eugenia rce(s) Supporting Document(s) Red Blood Count 3.67 10 4.30-6.10 [facility] White Blood Count 13.1 10 4.0-10.0 [facility]) Hemoglobin 5.9 g/dL 13.5-17.5 Below lower panic limits [facility] ([facility]) Hematocrit 24.6 % 42.0-52.0 [facility] ([facility]) Mean Corpuscular Volume 67.0 fl 80.0-96.0 M [facility] ([facility]) Mean Corpuscular Hemoglobin 16.1 pg 27.0-33.0 [facility] ([facility]) Mean Corpuscular HGB Conc 24.0 g/dL 32.0-36.5 [facility] ([facility]) Red Cell Distribution Width 21.1 % 11.5-14.5 [facility] ([facility]) Neutrophils % 81.2 % 36.0-66.0 [facility] ([facility] Lymph % 8.0 % 24.0-44.0 [facility] Platelet Count, Automated 228 10 150-450 [facility] ([facility]) [place] % 8.0 % 2.0-8.0 [facility] Eos % 1.9 % 0.0-3.0 [facility] Immature Granulocyte % 0.6 % 0-3.0 [facility] ([facility]) Baso % 0.3 % 0.0-1.0 [facility] Neutrophils # 10.7 10 1.5-8.5 [facility] ([facility] Nucleated Red Blood Cell % 0.2 % 0-0 [facility] ([facility]) Lymph # 1.1 10 1.5-5.0 [facility] Eos # 0.3 10 0.0-0.5 [facility] [place] # 1.1 10 0.0-0.8 [facility] Baso # 0.0 10 0.0-0.2 [facility] ID Date Data Source [id number] 05/05/2020 11:03:00 AM EST [facility] ([facility]) Name Value Range Interpretation Code Description Data Eugenia rce(s) Supporting Document(s) Inr 1.19 [facility] ([facility]) THERAPUTIC HUMAN INR VALUES INDICATIONS NORMAL RANGES PROPHYLAXIS/TREATMENT OF: VENOUS THROMBOSIS 2.0-3.0 PULMONARY EMBOLISM 2.0-3.0 PREVENTION OF SYSTEMIC EMBOLISM FROM: TISSUE HEART VALVES 2.0-3.0 ACUTE MYOCARDIAL INFARCTION 2.0-3.0 VALVULAR HEART DISEASE 2.0-3.0 ATRIAL FIBRILLATION 2.0-3.0 MECHANICAL VALVES(HIGH RISK) 2.5-3.5 RECURRENT MYOCARDIAL INFARCTION 2.5-3.5 Prothrombin Time 15.4 s 12.5-14.3 [facility] ([facility]) ID Date Data Source [id number] 05/05/2020 11:03:00 AM EST [facility] ([facility]) Name Value Range Interpretation Code Description Data Eugenia rce(s) Supporting Document(s) Glucose, Fasting 112 mg/dL 70-100 [facility] ([facility]) Blood Urea Nitrogen 55 mg/dL 7-18 [facility] Glomerular Filtration Rate 34.3 [facility] ([facility]) <content>Units are mL/min/1.73 m2</content>
<content></content>
<content>Chronic Kidney Disease Staging per NKF:</content>
<content></content>
<content>Stage I & II GFR >=60 Normal to Mildly Decreased</content>
<content>Stage III GFR 30- 59 Moderately Decreased</content>
<content>Stage IV GFR 15-29 Severely Decreased</content>
<content>Stage V GFR <15 Very Little GFR Left</content>
<content>ESRD GFR <15 on GEOGRAPHIC INFORMATION SYSTEMS ENGINEER</content>
<content></content> Creatinine For GFR 2.03 mg/dL 0.70-1.30 [facility] ([facility]) Potassium Serum 4.3 meq/L 3.5-5.1 [facility] ([facility]) Sodium Level 141 meq/L 136-145 [facility] ([facility]) Carbon Dioxide Level 22 meq/L 21-32 [facility] ([facility]) Chloride Level 109 meq/L 98-107 [facility] ([address] ogy [facility]) Calcium Level 8.4 mg/dL 8.8-10.2 [facility] ([address] gy [facility]) Anion Gap 10 meq/L 8-16 [facility] ID Date Data Source [id number] 05/05/2020 09:59:00 AM EST [facility] (Cardi ology [facility]) Name Value Range Interpretation Code Description Data Eugenia rce(s) Supporting Document(s) Surgical pathology study Laboratory test result [facility] ([facility]iology [facility]) FINAL DIAGNOSIS Ascites fluid, cell block: No malignant cells identified. Reactive mesothelial cells and predominantly lymphocytic background. 05/06/2020850 CLINICAL DIAGNOSIS Ascites fluid 05/06/2020727 GROSS DIAGNOSIS Received 1,200 ml of yellow ascites fluid for cell block. -SV 05/06/2020727 Signed DALTON CHAU MD 05/06/2020850 ID Date Data Source [id number] 04/13/2020 11:36:00 AM EST [facility] Name Value Range Interpretation Code Description Data Eugeina rce(s) Supporting Document(s) Blood Urea Nitrogen 55 mg/dL 7-18 [facility] ([facility]) Glucose, Fasting 142 mg/dL 70-100 [facility] ([facility]i ology [facility]) Glomerular Filtration Rate 34.7 [facility] ([facility]iology [facility]) <content>Units are mL/min/1.73 m2</content>
<content></content>
<content>Chronic Kidney Disease Staging per NKF:</content>
<content></content>
<content>Stage I & II GFR >=60 Normal to Mildly Decreased</content>
<content>Stage III GFR 30- 59 Moderately Decreased</content>
<content>Stage IV GFR 15-29 Severely Decreased</content>
<content>Stage V GFR <15 Very Little GFR Left</content>
<content>ESRD GFR <15 on GEOGRAPHIC INFORMATION SYSTEMS ENGINEER</content>
<content></content> Creatinine For GFR 2.01 mg/dL 0.70-1.30 [facility] ([facility]) Chloride Level 107 meq/L 98-107 [facility] ([facility]) Potassium Serum 4.4 meq/L 3.5-5.1 MED[facility] ([facility]) Sodium Level 141 meq/L 136-145 MED[facility] ([facility]) Carbon Dioxide Level 25 meq/L 21-32 MED[facility] ([facility]) Anion Gap 9 meq/L 8-16 [facility] Calcium Level 8.8 mg/dL 8.8-10.2 MED[facility] ([facility]) ID Date Data Source [id number] 12/24/2019 01:38:00 PM EDT [facility]) Name Value Range Interpretation Code Description Data Eugenia rce(s) Supporting Document(s) Laboratory test finding (navigational concept) Laboratory test result [facility] ([facility]) ID Date Data Source [id number] 12/24/2019 01:38:00 PM EDT [facility] ([facility]) Name Value Range Interpretation Code Description Data Eugenia rce(s) Supporting Document(s) Glucose 84 mg/dL 65-99 [facility] ([facility] eGFR If NonAfricn Am 39 mL/min/1.73 MEDE NT ([facility]) Urea nitrogen [Mass/volume] in Serum or Plasma 57 mg/dL 8-27 [facility] ([facility]) Creatinine 1.68 mg/dL 0.76-1.27 MED[facility] ([facility]) Urea nitrogen/Creatinine [Mass Ratio] in Serum or Plasma 34 1 0-24 [facility] ([facility]) eGFR If Africn Am 46 mL/min/1.73 [facility] ([facility]) Potassium [Moles/volume] in Serum or Plasma 4.5 mmol/L 3.5-5.2 [facility] ([facility]) Sodium 141 mmol/L 134-144 [facility] ([facility]) Chloride [Moles/volume] in Serum or Plasma 104 mmol/L 96-106 MEDENT ([facility]) Calcium [Mass/volume] in Serum or Plasma 9.3 mg/dL 8.6-10.2 MEDENT (Cardiology [facility]) Carbon dioxide, total [Moles/volume] in Serum or Plasma 24 mmol/L 20 -29 MED[facility] ([facility]iology [facility]) ID Date Data Source [id number] 12/25/2019 08:06:00 AM EDT [facility] Name Value Range Interpretation Code Description Data Eugenia rce(s) Supporting Document(s) Glucose 84 mg/dL 65-99 [facility] BUN 57 mg/dL 8-27 Above high normal [facility] Creatinine 1.68 mg/dL 0.76-1.27 Above high normal [facility] eGFR If NonAfricn Am 39 mL/min/1.73 >59 Below low normal [facility] eGFR If Africn Am 46 mL/min/1.73 >59 Below low normal [facility] BUN/Creatinine Ratio 34 10-24 Above high normal [facility] Sodium 141 mmol/L 134-144 [facility] Potassium 4.5 mmol/L 3.5-5.2 [facility] Chloride 104 mmol/L 96-106 [facility] Carbon Dioxide, Total 24 mmol/L 20-29 [facility] Calcium 9.3 mg/dL 8.6-10.2 [facility] ID Date Data Source [id number] 12/14/2019 08:49:00 AM EDT MED[facility] ([facility], ) Name Value Range Interpretation Code Description Data Eugenia rce(s) Supporting Document(s) FVC-Pre 3.78 L MEDENT ([facility], ) FVC-Pred 4.97 L MED[facility] ([facility]) PDFReport Laboratory test result MEDENT ([facility], ) FVC-%Pred-Pre 76 L MEDENT ([facility], ) FVC-LLN 3.92 L MED[facility] ([facility]) Fev1-Pred 3.63 L MED[facility] ([facility], ) Fev1-Pre 2.58 L MEDENT ([facility], ) Fev1-%Pred-Pre 71 L MEDENT ([facility], ) Fev6-Pred 4.69 L MEDENT ([facility]) Fev1-LLN 2.75 L MED[facility] ([facility], ) Fev6-Pre 3.77 L MEDENT ([facility], ) Fev6-%Pred-Pre 80 L MED[facility] ([facility], ) Fev6-LLN 3.68 L MED[facility] ([facility]) Jsn1iti-Wxm 68 % MED[facility] ([facility]) Kio8kld-Pddj 73 % MED[facility] ([facility]) Oya5hzv-%Pred-Pre 93 % MED[facility] ([facility]) Uju9hst-Zwcl 94 % [facility] ([facility]) Vfw0mhv-WAR 63 % [facility] ([facility]) Sfn7vvn-Rrx 100 % [facility] ([facility]) Mab2nkb-%Pred-Pre 105 % [facility] ([facility]) FEFMax-Pred 8.87 L/E/sec MED[facility] ([facility]) FEFMax-%Pred-Pre 89 L/E/sec MED[facility] ([facility]) FEFMax-Pre 7.93 L/E/sec MED[facility] ([facility]) FEFMax-LLN 6.27 L/E/sec MED[facility] ([facility]) [id number] 1.49 L/E/sec [facility] ([facility]) [id number]-Szgc 2.66 L/E/sec MED[facility] ([facility]) Mlr8238-%Pred-Pre 55 L/E/sec MED[facility] ([facility]) ExpTime-Pre 6.32 sec MEDENT ([facility]) [id number]-MUU 0.87 L/E/sec MED[facility] ([facility]) Xqr5tts4-Hqcl 77 % MED[facility] ([facility]) Fwe9xbw2-KOG 68 % [facility] ([facility]) Wsy4wvs3-%Pred-Pre 88 % MED[facility] ([facility]) Cwz3wnb2-Wuc 68 % [facility] ([facility]) Procedure Social History Code Duration Value Status Description Data Source(s ) Smoking 12/13/2020 12:00:00 AM EDT Former Smoker completed Former Smoker eCW1 ([facility]) Smoking 12/13/2020 12:00:00 AM EDT Former Smoker completed Former Smoker eCW1 ([facility]) Smoking 12/13/2020 12:00:00 AM EDT Former Smoker completed Former Smoker eCW1 ([facility]) Smoking 12/13/2020 12:00:00 AM EDT Former Smoker completed Former Smoker eCW1 ([facility]) Smoking 11/10/2020 12:00:00 AM EDT Former Smoker completed Former Smoker eCW1 ([facility]) Smoking 10/28/2020 10:17:59 PM EDT Ex-smoker (finding) [facility] ed Ex-smoker (finding) SAVANNAH (Myranda Reagan MD [facility]) Smoking 10/12/2020 12:00:00 AM EDT Patient is a former smoker completed Patient is a former smoker [facility] ([facility]) Smoking 10/10/2020 12:00:00 AM EDT Former Smoker completed Former Smoker eCW1 ([facility]) Smoking 10/10/2020 12:00:00 AM EDT Former Smoker completed Former Smoker eCW1 ([facility]) Smoking 10/10/2020 12:00:00 AM EDT Former Smoker completed Former Smoker eCW1 ([facility]) Smoking 10/10/2020 12:00:00 AM EDT Former Smoker completed Former Smoker eCW1 ([facility]) Smoking 10/10/2020 12:00:00 AM EDT Former Smoker completed Former Smoker eCW1 ([facility]) Smoking 09/13/2020 12:00:00 AM EDT Former Smoker completed Former Smoker eCW1 ([facility]) Smoking 09/13/2020 12:00:00 AM EDT Former Smoker completed Former Smoker eCW1 ([facility]) Smoking 07/27/2020 03:27:06 PM EDT Ex-smoker (finding) complet ed Ex-smoker (finding) IVONNE (Myranda Reagan MD [facility]) Smoking 06/29/2020 12:00:00 AM EDT Former Smoker completed Former Smoker eCW1 ([facility]) Smoking 06/29/2020 12:00:00 AM EDT Former Smoker completed Former Smoker eCW1 ([facility]) Smoking 05/19/2020 12:00:00 AM EDT Former Smoker completed Former Smoker eCW1 ([facility]) Smoking 05/19/2020 12:00:00 AM EDT Former Smoker completed Former Smoker eCW1 ([facility]) Smoking 05/19/2020 12:00:00 AM EDT Former Smoker completed Former Smoker eCW1 ([facility]) Smoking 05/19/2020 12:00:00 AM EDT Former Smoker completed Former Smoker eCW1 ([facility]) Smoking 05/19/2020 12:00:00 AM EDT Former Smoker completed Former Smoker eCW1 ([facility]) Smoking 05/19/2020 12:00:00 AM EDT Former Smoker completed Former Smoker eCW1 ([facility]) Smoking 03/17/2020 12:00:00 AM EST Former Smoker completed Former Smoker eCW1 ([facility]) Smoking 03/17/2020 12:00:00 AM EST Former Smoker completed Former Smoker eCW1 ([facility]) Smoking 12/14/2019 12:00:00 AM EDT Patient has never smoked co mpleted Patient has never smoked [facility] ([facility], ) Vital Signs ID Date Data Source UNK Name Value Range Interpretation Code Description Data Source(s) Body weight 236.0 [lb_av] 236.0 [lb_av] eCW1 ([facility]) Body weight 107.05 kg 107.05 kg eCW1 (Formerly [facility]) Body height 72 [in_i] 72 [in_i] eCW1 ([facility]ly [facility]) Body mass index (BMI) [Ratio] 32.00 kg/m2 32.00 kg/m2 eCW1 ([facility]) Heart rate 89 /min 89 /min eCW1 ([facility]) Respiratory rate 18 /min 18 /min eCW1 (Formerly [facility]) Body temperature 97.1 [degF] 97.1 [degF] eCW1 ( [facility]) Systolic blood pressure 105 mm[Hg] 105 mm[Hg] e CW1 ([facility]) Diastolic blood pressure 43 mm[Hg] 43 mm[Hg] eCW1 ([facility]) Body weight 229 [lb_av] 229 [lb_av] eCW1 ([facility]) Body weight 103.87 kg 103.87 kg eCW1 ([facility]ly [facility]) Body height 72 [in_i] 72 [in_i] eCW1 ([facility]ly [facility]) Body mass index (BMI) [Ratio] 31.05 kg/m2 31.05 kg/m2 eCW1 ([facility]) Heart rate 81 /min 81 /min eCW1 ([facility]) Respiratory rate 17 /min 17 /min eCW1 ([facility]ly [facility]) Body temperature 97.6 [degF] 97.6 [degF] eCW1 ( [facility]) Systolic blood pressure 118 mm[Hg] 118 mm[Hg] e CW1 ([facility]) Diastolic blood pressure 62 mm[Hg] 62 mm[Hg] eCW1 ([facility]) Body weight 234.00 [lb_av] 234.00 [lb_av] CHEN Roach ([facility]) Body height 74 [in_i] 74 [in_i] [facility] 6'2" Body mass index (BMI) [Ratio] 30.0 kg/m2 30.0 k g/m2 CARLOS ([facility]) Heart rate 72 /min 72 /min MEDENT ([facility]) Irregular Respiratory rate 16 /min 16 /min MED[facility] ( [facility]) Systolic blood pressure 102 mm[Hg] 102 mm[Hg] M EDENT ([facility]) sitting, regular cuff Diastolic blood pressure 50 mm[Hg] 50 mm[Hg] MEDENT ([facility]) sitting, regular cuff Body weight 238.6 [lb_av] 238.6 [lb_av] eCW1 ([facility]) Body height 72 [in_i] 72 [in_i] eCW1 ([facility]) Body mass index (BMI) [Ratio] 32.36 kg/m2 32.36 kg/m2 eCW1 ([facility]) Heart rate 62 /min 62 /min eCW1 ([facility]) Respiratory rate 18 /min 18 /min eCW1 ([facility]ly [facility]) Body temperature 97.8 [degF] 97.8 [degF] eCW1 ( [facility]) Systolic blood pressure 103 mm[Hg] 103 mm[Hg] e CW1 ([facility]) Diastolic blood pressure 51 mm[Hg] 51 mm[Hg] eCW1 ([facility]) Body weight 243.6 [lb_av] 243.6 [lb_av] eCW1 ([facility]) Body height 72 [in_i] 72 [in_i] eCW1 ([facility]ly [facility]) Body mass index (BMI) [Ratio] 33.03 kg/m2 33.03 kg/m2 eCW1 ([facility]) Heart rate 84 /min 84 /min eCW1 ([facility]) Respiratory rate 18 /min 18 /min eCW1 ([facility]ly [facility]) Body temperature 97.1 [degF] 97.1 [degF] eCW1 ( [facility]) Systolic blood pressure 100 mm[Hg] 100 mm[Hg] e CW1 ([facility]) Diastolic blood pressure 55 mm[Hg] 55 mm[Hg] eCW1 ([facility]) Body height 74 [in_i] 74 [in_i] [facility] ([facility]) 6'2" Body weight 247.00 [lb_av] 247.00 [lb_av] MEDEN T ([facility]) Systolic blood pressure 108 mm[Hg] 108 mm[Hg] M EDENT ([facility]) Diastolic blood pressure 66 mm[Hg] 66 mm[Hg] MEDENT ([facility]) Heart rate 80 /min 80 /min [facility] ([facility]) Body mass index (BMI) [Ratio] 31.7 kg/m2 31.7 k g/m2 MEDENT ([facility]) Body weight 112.039 kg 112.039 kg [facility] ([facility]) Body temperature 97.3 [degF] 97.3 [degF] MEDENT ([facility]) Body height 74 [in_i] 74 [in_i] MED[facility] ([facility]) 6'2" Body weight 244.00 [lb_av] 244.00 [lb_av] MEDEN T ([facility]) Body mass index (BMI) [Ratio] 31.3 kg/m2 31.3 k g/m2 MED[facility] ([facility]) Heart rate 76 /min 76 /min MED[facility] ([facility]) 106Irregular Respiratory rate 16 /min 16 /min MEDENT ( [facility]) Systolic blood pressure 106 mm[Hg] 106 mm[Hg] M EDENT ([facility]) sitting, regular cuff Diastolic blood pressure 60 mm[Hg] 60 mm[Hg] MEDENT ([facility]) sitting, regular cuff Systolic blood pressure 110 mm[Hg] 110 mm[Hg] e CW1 ([facility]) Diastolic blood pressure 64 mm[Hg] 64 mm[Hg] eCW1 ([facility]) Body weight 240 [lb_av] 240 [lb_av] eCW1 ([facility]) Body height 72 [in_i] 72 [in_i] eCW1 ([facility]) Body mass index (BMI) [Ratio] 32.55 kg/m2 32.55 kg/m2 eCW1 ([facility]) Diastolic blood pressure 60 mm[Hg] 60 mm[Hg] MEDENT ([facility]) sitting, regular cuff Systolic blood pressure 106 mm[Hg] 106 mm[Hg] M EDENT ([facility]) sitting Diastolic blood pressure 60 mm[Hg] 60 mm[Hg] MEDENT ([facility]) sitting Body mass index (BMI) [Ratio] 32.4 kg/m2 32.4 k g/m2 MED[facility] ([facility]) Body height 74 [in_i] 74 [in_i] [facility] 6'2" Heart rate 64 /min 64 /min MED[facility] ([facility]) Irregular Respiratory rate 16 /min 16 /min MEDENT ( [facility]) Systolic blood pressure 110 mm[Hg] 110 mm[Hg] M EDENT ([facility]) sitting, regular cuff Body weight 252.00 [lb_av] 252.00 [lb_av] MEDEN T ([facility]) Diastolic blood pressure 52 mm[Hg] 52 mm[Hg] MEDENT ([facility]) sitting, regular cuff Systolic blood pressure 114 mm[Hg] 114 mm[Hg] M EDENT ([facility]) sitting, regular cuff Body weight 255.00 [lb_av] 255.00 [lb_av] MEDEN T ([facility]) Body height 74 [in_i] 74 [in_i] MEDENT ([facility]) 6'2" Body mass index (BMI) [Ratio] 32.7 kg/m2 32.7 k g/m2 MED[facility] ([facility]) Heart rate 68 /min 68 /min MED[facility] ([facility]) Irregular Respiratory rate 16 /min 16 /min MEDENT ( [facility]) Body weight 254 [lb_av] 254 [lb_av] eCW1 ([facility]) Body height 72 [in_i] 72 [in_i] eCW1 ([facility]ly [facility]) Body mass index (BMI) [Ratio] 34.44 kg/m2 34.44 kg/m2 eCW1 ([facility]) Heart rate 89 /min 89 /min eCW1 ([facility]) Respiratory rate 20 /min 20 /min eCW1 ([facility]ly [facility]) Body temperature 96.6 [degF] 96.6 [degF] eCW1 ( [facility]) Systolic blood pressure 96 mm[Hg] 96 mm[Hg] e CW1 ([facility]) Diastolic blood pressure 43 mm[Hg] 43 mm[Hg] eCW1 ([facility]) Body height 74 [in_i] 74 [in_i] MEDENT ([facility]) 6'2" Respiratory rate 16 /min 16 /min MEDENT ( [facility]) Systolic blood pressure 126 mm[Hg] 126 mm[Hg] M EDENT ([facility]) sitting, large cuff Diastolic blood pressure 66 mm[Hg] 66 mm[Hg] MEDENT ([facility]) sitting, large cuff Body weight 241.00 [lb_av] 241.00 [lb_av] MEDEN T ([facility]) Body mass index (BMI) [Ratio] 30.9 kg/m2 30.9 k g/m2 MED[facility] ([facility]) Heart rate 68 /min 68 /min MED[facility] ([facility]) Irregular Systolic blood pressure 104 mm[Hg] 104 mm[Hg] M EDENT ([facility], ) Diastolic blood pressure 62 mm[Hg] 62 mm[Hg] MEDENT ([facility], ) Heart rate 60 /min 60 /min [facility] Oxygen saturation in Arterial blood by Pulse oximetry 97 % 97 % [facility], ) Body height 74 [in_i] 74 [in_i] MEDENT ([facility], ) 6'2" Body weight 247.00 [lb_av] 247.00 [lb_av] MEDEN T ([facility], ) Body mass index (BMI) [Ratio] 31.7 kg/m2 31.7 k g/m2 [facility] ([facility], ) Gile body weight 190 [lb_av] 190 [lb_av] MEDEN T ([facility], ) Body weight 112.039 kg 112.039 kg [facility] Patient Treatment Plan of Care Planned Activity Planned Date Details Description Data Source (s) Doxycycline Monohydrate 100 MG Oral Capsule 11/04/2020 12:00:00 AM EDT eCW1 ([facility]) valacyclovir 1000 MG Oral Tablet [Valtrex] 06/29/2020 12:00:00 AM E DT eCW1 ([facility]) valacyclovir 1000 MG Oral Tablet [Valtrex] 06/29/2020 12:00:00 AM E DT eCW1 ([facility]) valacyclovir 1000 MG Oral Tablet [Valtrex] 06/29/2020 12:00:00 AM E DT eCW1 ([facility]) valacyclovir 1000 MG Oral Tablet [Valtrex] 06/29/2020 12:00:00 AM E DT eCW1 ([facility]) valacyclovir 1000 MG Oral Tablet [Valtrex] 06/29/2020 12:00:00 AM E DT eCW1 ([facility]) valacyclovir 1000 MG Oral Tablet [Valtrex] 06/29/2020 12:00:00 AM E DT eCW1 ([facility]) valacyclovir 1000 MG Oral Tablet [Valtrex] 06/29/2020 12:00:00 AM E DT eCW1 ([facility]) pantoprazole 40 MG Delayed Release Oral Tablet 06/22/2020 12:00:00 AM EDT eCW1 ([facility]) pantoprazole 40 MG Delayed Release Oral Tablet 06/22/2020 12:00:00 AM EDT eCW1 ([facility]) Pen [place] 32G X 4 MM 05/02/2020 12:00:00 AM EST eCW1 ([facility]) Test Strips - 03/17/2020 12:00:00 AM EST eCW1 ([facility]) Test Strips - 03/17/2020 12:00:00 AM EST eCW1 ([facility]) Test Strips - 03/17/2020 12:00:00 AM EST eCW1 ([facility]) Test Strips - 03/17/2020 12:00:00 AM EST eCW1 ([facility]) Glucometer 03/17/2020 12:00:00 AM EST e CW1 ([facility]) Test Strips - 03/17/2020 12:00:00 AM EST eCW1 ([facility]) Glucometer 03/17/2020 12:00:00 AM EST e CW1 ([facility]) Test Strips - 03/17/2020 12:00:00 AM EST eCW1 ([facility]) Colesevelam hydrochloride 625 MG Oral Tablet 03/08/2020 12:00:00 AM EST eCW1 ([facility]) Colesevelam hydrochloride 625 MG Oral Tablet 03/08/2020 12:00:00 AM EST eCW1 ([facility])
--- OUTSIDE RECORDS SUMMARY | 2020-12-27 10:39 | CCD ---
Author Author [facility] Organization [facility] Address Unknown Phone Unavailable Care Team Providers Care Mobility Architect Manager Name Role Phone Merly Daniel MD Unavailable [...] Daniel MD Unavailable Unavailable Alvaro, L Estelle SACK SORTER Unavailable Unavailable Alvaro, L Estelle SACK SORTER Unavailable Unavailable Alvaro, L Estelle SACK SORTER Unavailable Unavailable Alvaro, L Estelle SACK SORTER Unavailable Unavailable Alvaro, L Estelle SACK SORTER Unavailable Unavailable Alvaro, L Estelle SACK SORTER Unavailable Unavailable Alvaro, L Estelle SACK SORTER Unavailable Unavailable Alvaro, L Estelle SACK SORTER Unavailable Unavailable Alvaro, L Estelle SACK SORTER Unavailable Unavailable Alvaro, L Estelle SACK SORTER Unavailable Unavailable Alvaro, L Estelle SACK SORTER Unavailable Unavailable Alvaro, L Estelle SACK SORTER Unavailable Unavailable Alvaro, L Estelle SACK SORTER Unavailable Unavailable Alvaro, L Estelle SACK SORTER Unavailable Unavailable Alvaro, L Estelle SACK SORTER Unavailable Unavailable Alvaro, L Estelle SACK SORTER Unavailable Unavailable Alvaro, L Estelle SACK SORTER Unavailable Unavailable Alvaro, L Estelle SACK SORTER Unavailable Unavailable Alvaro, L Estelle SACK SORTER Unavailable Unavailable Alvaro, L Estelle SACK SORTER Unavailable Unavailable Alvaro, L Estelle SACK SORTER Unavailable Unavailable Alvaro, L Estelle SACK SORTER Unavailable Unavailable Alvaro, L Estelle SACK SORTER Unavailable Unavailable Alvaro, L Estelle SACK SORTER Unavailable Unavailable Alvaro, L Estelle SACK SORTER Unavailable Unavailable Jaya Norton MD Unavailable Unavailable [...] Unavailable Unavailable Jaya Norton MD Unavailable Unavailable aJya Norton MD Unavailable Unavailable Jaya Norton MD [...] Unavailable Symenow, Arabella Dania PA Unavailable Unavailable ANTECOLTommy MD Unavailable [...] ANTECOL, Tommy WHITMORE MD Unavailable Unavailable ANTECOL, Tmomy WHITMORE MD Unavailable Unavailable ANTECOL, Tommy WHITMORE [...] ERROL, A GET DO Unavailable Unavailable Kang, Opp Sydni Unavailable Unavailable Kang, Opp Sydni Unavailable Unavailable Kang, Opp Sydni Unavailable Unavailable Kang, Opp Sydni Unavailable Unavailable Kang, Opp Sydni Unavailable Unavailable Kang, Opp Sydni Unavailable Unavailable Kang, Opp Sydni Unavailable Unavailable Kang, Opp Sydni Unavailable Unavailable Kang, Opp Sydni Unavailable Unavailable Kang, Opp Sydni Unavailable Unavailable Kang, Opp Sydni Unavailable Unavailable Kang, Opp Sydni Unavailable Unavailable Kang, Opp Sydni Unavailable Unavailable Re-disclosure Warning The records [...] is protected by Article 27-F of the [facility] Public Health law. If you continue you may have access to information: Regarding HIV / AIDS; Provided by facilities licensed or operated by the [facility] Office of Mental Health; or Provided by the [facility] Office for People With Developmental Disabilities. If such information is present, then the following [facility] mandated warning applies: This information has been [...] law may result in a fine or mcc sentence or both. A general authorization for the release of medical or other information is NOT sufficient authorization for further disc losure. Allergies and Adverse Reactions Type Description Substance Reaction Status Data Source(s ) Allergy to substance Allergy to substance Allergy to substance DYLON ([facility]) Allergy to substance Allergy to substance Allergy to substance DYLON ([facility]) Family History Family Member Name Family Member Gender Family Member Status Date o f Status Description Data Source(s) Unknown Male Condition [facility] Unknown Unknown Problem MEDENT ([facility]) Unknown Male Problem MEDENT ([facility]) Unknown Unknown Problem MEDENT ([facility] Unknown Female Problem MEDENT ([facility] ) Encounters Encounter Providers Location Date Indications Data Source(s ) Emergency Attender: HALIE LIZ EMERGENCY ROOM-[facility] E[facility]Y ROOM 12/26/2020 12:18:00 PM EDT - 12/26/2020 12:18:00 PM EDT [facility] [place] [address] [facility] [address] 12/20/2020 12:00:00 AM EDT eCW1 ([facility]) [place] [address] [facility] [facility] [address] 12/19/2020 12:00:00 AM EDT eCW1 ([facility]) [place] [address] [facility] [facility] [address] 12/13/2020 12:00:00 AM EDT eCW1 ([facility]) [place] [address] [facility] [facility] [address] 12/13/2020 12:00:00 AM EDT eCW1 ([facility]) Office Visit Attender: MYRANDA MONDRAGON MD Main Office 11/15/2020 08: 01:00 AM EDT MEDENT ([facility]) [place] [address] [facility] [facility] [facility] [address] 11/10/2020 12:00:00 AM EDT eCW1 ([facility]) [place] [address] [facility] [address] 11/04/2020 12:00:00 AM EDT eCW1 ([facility]) [place] [address] [facility] [facility] [address] 10/18/2020 12:00:00 AM EDT eCW1 ([facility]) Outpatient Attender: Dania LIZ Main Office 10/12/2020 12:45:00 PM EDT MEDENT ([facility]) [place] [address] [facility] [facility] [address] 10/11/2020 12:00:00 AM EDT eCW1 ([facility]) [place] [address] [facility] [facility] [address] 10/10/2020 12:00:00 AM EDT eCW1 ([facility]) [place] [address] [facility] [facility] [address] 10/10/2020 12:00:00 AM EDT eCW1 ([facility]) Office Visit Attender: MYRANDA MONDRAGON MD Main Office 09/21/2020 11: 00:00 AM EDT MEDENT ([facility]) [place] [address] [facility] [address] 09/19/2020 12:00:00 AM EDT eCW1 ([facility]) [place] [address] [facility] [facility] [address] 09/13/2020 12:00:00 AM EDT eCW1 ([facility]) Office Visit Attender: MYRANDA MONDRAGON MD Main Office 08/18/2020 09: 33:00 AM EDT MEDENT ([facility]) Outpatient<td ID="encounterTypeDescripti onID0">VISUAL FIELD 24-2</td><td>Get Norton DO</td><td>Myranda Kong MD [facility]</td><td>08/05/2020</td><td>9:53AM</td><td>11:08AM</td><td><content ID="encounterDiagnosisID0-0">Borderline Glaucoma Open Angle with Borderline Findings Both Eyes</content></td> Attender: GET Carrington MD [facility] 08/05/2020 09:53:00 AM EDT - 08/05/2020 11:08:00 AM ED T Borderline Glaucoma Open Angle with Borderline Findings Both EyesBorderline Glaucoma Open Angle with Borderline Findings Both Eyes IVONNE (Myranda Reagan MD [facility]) 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 Outpatient<td ID="encounterTypeDescripti onID1">6 Month follow up with testing</td><td>Get Norton DO</td><td>Myranda Kong MD [facility]</td><td>07/27/2020</td><td>1:18PM</td><td>3:20PM</td><td><content ID="encounterDiagnosisID1-0">Essential Hypertension</content>, <content ID="encounterDiagnosisID1-1">Macular Puckering</content>, <content ID="encounterDiagnosisID1-2">Assessment of Taking Medication For Diabetes Long- term Use of Insulin</content>, <content ID="encounterDiagnosisID1-3">Diabetes Mellitus Type 2 Without Complication</content>, <content ID="encounterDiagnosisID1-4">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 [facility] [address] 07/21/2020 12:00:00 AM EDT eCW1 ([facility]) Outpatient Attender: Dania LIZ Main Office 07/11/2020 12:45:00 PM EDT MEDENT ([facility]) Office Visit Attender: MYRANDA MONDRAGON MD Main Office 07/06/2020 03: 27:00 PM EDT MEDENT ([facility]) [place] [address] [facility] [facility] [facility] [address] 06/29/2020 12:00:00 AM EDT eCW1 ([facility]) Unknown [address] [facility] [place] [address] 06/23/2020 12:00:00 AM EDT eCW1 ([facility]) Unknown [address] [facility] [place] [address] 06/16/2020 12:00:00 AM EDT eCW1 ([facility]) Unknown [address] [facility] [place] [address] 06/01/2020 12:00:00 AM EDT eCW1 ([facility]) Office Visit Attender: MYRANDA MONDRAGON MD Main Office 05/27/2020 01: 00:00 PM EDT MEDENT ([facility]) Unknown [address] [facility] [place] [address] 05/27/2020 12:00:00 AM EDT eCW1 ([facility]) Sydni Kang, YOGA INSTRUCTOR-C: [address] [place] [phone], Ph. Attender: Sydni Kang [facility] Medical 05/25/2020 12:00:00 AM EDT DYLON ([facility]) [place] [address] [address] 05/20/2020 12:00:00 AM EDT eCW1 ([facility]) Outpatient Attender: Dania LIZ Main Office 05/19/2020 12:30:00 PM EDT MEDENT ([facility]) Office Visit Attender: MYRANDA MONDRAGON MD Main Office 05/18/2020 01: 23:00 PM EDT MEDENT ([facility]) Unknown [address] [facility] [place] [address] 05/17/2020 12:00:00 AM EDT eCW1 ([facility]) Unknown [address] [facility] [place] [address] 05/02/2020 12:00:00 AM EST eCW1 ([facility]) Abdiel Daniel MD: [address] [place] [address], Ph. Attender: Abdiel Daniel MD [facility] Medical 04/28/2020 12:00:00 AM EST DYLON ([facility]) Abdiel Daniel MD: [address] [place] [address], Ph. Attender: Abdiel Daniel MD [facility] Medical 04/28/2020 12:00:00 AM EST DYLON ([facility]) Office Visit Attender: MYRANDA MONDRAGON MD Main Office 04/19/2020 08: 27:00 AM EST MEDENT ([facility]) Outpatient Attender: Dania LIZ Main Office 04/18/2020 11:45:00 AM EST MEDENT ([facility]) Outpatient [address] [facility] [place] [address] 03/17/2020 12:00:00 AM EST eCW1 ([facility]) Unknown [address] [facility] [place] [address] 03/14/2020 12:00:00 AM EST eCW1 ([facility]) Unknown 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</content>, <content ID="encounterDiagnosisID2-1">Essential Hypertension</content>, <content ID="encounterDiagnosisID2-2">History of Nicotine Dependence</content></td>Outpatient Attender: GET Gutierrez MD [facility] 01/14/2020 01:58:00 PM EST - 01/14/2020 03:32:00 PM EST History of Nicotine DependenceHistory of Nicotine DependenceHistory of Nicotine Dependence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Essential HypertensionEssential HypertensionEssential Hypertension [place] (Myranda Reagan MD [facility]) History of Nicotine Dependence History of Nicotine Dependence History of Nicotine Dependence 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 Essential Hypertension Essential Hypertension Essential Hypertension Outpatient Attender: Dania LIZ Main Office 12/24/2019 12:30:00 PM EDT MEDENT ([facility]) Office Visit Attender: MYRANDA MONDRAGON MD Main Office 12/17/2019 11: 07:00 AM EDT MEDENT ([facility]) Outpatient Attender: Estelle Harmon/Lacy/Rito/Reinary 12/14/2019 11:30:00 AM EDT MEDENT ([facility]) Outpatient<td ID="encounterTypeDescripti onID3">1 Year Follow-Up</td><td>Get Norton DO</td><td>Myranda Kong MD [facility]</td><td>11/27/2019</td><td>12:00PM</td><td>1:05PM</td><td><content ID="encounterDiagnosisID3-0">Essential Hypertension</content>, <content ID="encounterDiagnosisID3-1">Macular Puckering</content>, <content ID="encounterDiagnosisID3-2">Assessment of Taking Medication For Diabetes Long- term Use of Insulin</content>, <content ID="encounterDiagnosisID3-3">Diabetes Mellitus Type 2 Without Complication</content>, <content ID="encounterDiagnosisID3-4">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</content></td> Attender: GET Carrington MD [facility] 11/27/2019 12:00:00 PM EDT - 11/27/2019 [...] of InsulinMacular Puckering IVONNE (Myranda Reagan MD [facility]) Macular Degen Nonexud Bilat Adv Atrophic [...] 22:00 PM EDT CARLOS ([facility]) Immunizations Vaccine Date Status Description Data Source(s) pneumococcal polysaccharide PPV23 09/13/2020 11:28:00 AM EDT comple prabhjot eCW1 ([facility]) pneumococcal polysaccharide PPV23 09/13/2020 11:28:00 AM EDT comple prabhjot eCW1 ([facility]) pneumococcal polysaccharide PPV23 09/13/2020 11:28:00 AM EDT comple prabhjot eCW1 ([facility]) pneumococcal polysaccharide PPV23 09/13/2020 11:28:00 AM EDT comple prabhjot eCW1 ([facility]) pneumococcal polysaccharide PPV23 09/13/2020 11:28:00 AM EDT comple prabhjot eCW1 ([facility]) pneumococcal polysaccharide PPV23 09/13/2020 11:28:00 AM EDT comple prabhjot eCW1 ([facility]) pneumococcal polysaccharide PPV23 09/13/2020 11:28:00 AM EDT comple prabhjot eCW1 ([facility]) pneumococcal polysaccharide PPV23 09/13/2020 11:28:00 AM EDT comple prabhjot eCW1 ([facility]) pneumococcal polysaccharide PPV23 09/13/2020 11:28:00 AM EDT comple prabhjot eCW1 ([facility]) pneumococcal polysaccharide PPV23 09/13/2020 11:28:00 AM EDT comple prabhjot eCW1 ([facility]) pneumococcal polysaccharide PPV23 09/13/2020 11:28:00 AM EDT comple prabhjot eCW1 ([facility]) pneumococcal polysaccharide PPV23 09/13/2020 11:28:00 AM EDT comple prabhjot eCW1 ([facility]) COVID-19, mRNA, LNP-S, PF, 100 mcg/0.5 mL dose 05/25/2020 02 :53:03 PM EDT completed .5 mL DYLON ([facility]) COVID-19 VACCINE Moderna 05/25/2020 12:00:00 AM EDT completed NYSIIS Vaccine Series Complete: YESThis Data wa s Submitted to [facility] Via [email or web address]. COVID-19, mRNA, LNP-S, PF, 100 mcg/0.5 mL dose 04/28/2020 04 :58:38 PM EST completed .5 mL DYLON ([facility]) COVID-19, mRNA, LNP-S, PF, 100 mcg/0.5 mL dose 04/28/2020 04 :58:38 PM EST completed .5 mL DYLON ([facility]) COVID-19 VACCINE Moderna 04/28/2020 12:00:00 AM EST completed DCSIIS Vaccine Series Complete: NOThis Data was Submitted to [facility] Via [email or web address]. Medications Medication Brand Name Start Date Product [...] EDT ORAL active MEDENT [facility] Doxycycline Monohydrate 100 MG Oral Capsule Doxycycline Wallace hydrate 100 MG 11/04/2020 12:00:00 AM EDT 1.0 {capsule} active Doxycycline Monohydrate 100 MG eCW1 ([facility]) Doxycycline Monohydrate 100 MG Oral Capsule Doxycycline Wallace hydrate 100 MG 11/04/2020 12:00:00 AM EDT 1.0 {capsule} active Doxycycline Monohydrate 100 MG eCW1 ([facility]) Doxycycline Monohydrate 100 MG Oral Capsule Doxycycline Wallace hydrate 100 MG 11/04/2020 12:00:00 AM EDT 1.0 {capsule} active Doxycycline Monohydrate 100 MG eCW1 ([facility]) Doxycycline Monohydrate 100 MG Oral Capsule Doxycycline Wallace hydrate 100 MG 11/04/2020 12:00:00 AM EDT 1.0 {capsule} active Doxycycline Monohydrate 100 MG eCW1 ([facility]) 100 mg 11/04/2020 12:00:00 AM EDT capsule 20 TAKE ONE CAPSULE BY MOUTH TWICE A DAY FOR 10 DAYS TAKE ONE CAPSULE BY MOUTH TWICE A DAY FOR 10 DAYS SOLD : 11/06/2020 [facility] Doxycycline Monohydrate 100 MG Oral Capsule Doxycycline Wallace hydrate 100 MG 11/04/2020 12:00:00 AM EDT 1.0 {capsule} active Doxycycline Monohydrate 100 MG eCW1 ([facility]) Doxycycline Monohydrate 100 MG Oral Capsule Doxycycline Wallace hydrate 100 MG 11/04/2020 12:00:00 AM EDT 1.0 {capsule} active Doxycycline Monohydrate 100 MG eCW1 ([facility]) 25 mg 11/01/2020 12:00:00 AM EDT tablet 180 TAKE ONE TABLET BY MOUTH TWICE A DAY TAKE ONE TABLET BY MOUTH TWICE A DAY SOLD: 11/06/2020 [facility] Spironolactone 25 MG Oral Tablet Spironolactone 10/11/2020 12:00:00 A M EDT ORAL active MEDENT ([facility]) Ascorbic Acid 500 MG Chewable Tablet Vitamin C 10/11/2020 12:00:00 AM EDT active MEDENT ([facility]) valacyclovir 1000 MG Oral Tablet VALACYCLOVIR HCL 10/11/2020 12: 00:00 AM EDT tablet 21 TAKE ONE TABLET BY MOUTH THREE T IMES A DAY FOR 7 DAYS TAKE ONE TABLET BY MOUTH THREE TIMES A DAY FOR 7 DAYS SOLD: 10/12/2020 [facility] midodrine hydrochloride 5 MG Oral Tablet Midodrine HCL 10/10/2020 12:00:00 AM EDT ORAL active MEDENT ([facility] BLOOD SUGAR DIAGNOSTIC 10/10/2020 12:00:00 AM EDT [...] Oral Tablet [Protonix] IVONNE (Myranda Reagan [facility]) Spironolactone 25 MG Oral Tablet Spironolactone 25 MG Oral T ablet 07/27/2020 12:00:00 AM EDT 1 active spironol actone 25 MG Oral Tablet IVONNE (Myranda Reagan MD [facility]) torsemide 100 MG Oral Tablet Torsemide 100 MG Oral Tab let Torsemide 100 MG Oral Tablet 07/27/2020 12:00:00 AM EDT 1 active torsemide 100 MG Oral Tablet IVONNE (Myranda Reagan MD [facility]) Prevagen 10 MG Oral Capsule Prevagen 10 MG Oral Capsule 03/2020 12:00:00 AM EDT 1 active Prevagen IVONNE (Myranda Reagan MD [facility]) PreserVision AREDS 2 Oral Capsule PreserVision AREDS 2 Oral Capsule 07/27/2020 12:00:00 AM EDT 1 active PreserVi cornelius AREDS 2 IVONNE (Myranda Reagan MD [facility]) 3 ML Insulin, Aspart, Human 100 UNT/ML P en Injector [NovoLog] NovoLOG FlexPen 100 UNIT/ML Subcutaneous Solution Pen-injector NovoLOG FlexPen 100 UNIT/ML Subcutaneous Solution Pen-injector 07/27/2020 12:00:00 AM EDT active 3 ML insulin aspart, human 100 UNT/ML Pe n Injector [NovoLog] IVONNE (Myranda Reagan MD [facility]) Glucosamine MSM Complex Oral Tablet Glucosamine MSM Complex Oral Tablet 07/27/2020 12:00:00 AM EDT 1 active Glucosamine MSM Complex IVONNE (Myranda Reagan MD [facility]) apixaban 2.5 MG Oral Tablet [Eliquis] Eliquis 2.5 MG O ral Tablet Eliquis 2.5 MG Oral Tablet 07/27/2020 12:00:00 AM EDT 1 active apixaban 2.5 MG Oral Tablet [Eliquis] IVONNE (Myranda Reagan [facility]) Allopurinol 100 MG Oral Tablet Allopurinol 100 MG Oral Table t 07/27/2020 12:00:00 AM EDT 1 active allopuri nol 100 MG Oral Tablet IVONNE ([facility]randa Reagan [facility]) Colesevelam hydrochloride 625 MG Oral Tablet Colesevel am HCl 625 MG Oral Tablet Colesevelam HCl 625 MG Oral Tablet 07/27/2020 12:00:00 AM EDT 1 active colesevelam hydrochloride 625 MG Oral Ta blet IVONNE ([facility]randa Reagan [facility]) midodrine hydrochloride 5 MG Oral Tablet Midodrine HCl 5 MG Oral Tablet Midodrine HCl 5 MG Oral Tablet 07/27/2020 12:00:00 AM EDT 1 active midodrine hydrochloride 5 MG Oral Tablet IVONNE ([facility]) 100 unit/mL (3 mL) 07/23/2020 12:00:00 [...] EDT ORAL active MEDENT ([facility]) valacyclovir 1000 MG Oral Tablet [Valtrex] Valtrex 1 GM Valt renato 1 GM 06/29/2020 12:00:00 AM EDT 1.0 {tablet} active Va ltrex 1 GM eCW1 ([facility]) valacyclovir 1000 MG Oral Tablet [Valtrex] Valtrex 1 GM Valt renato 1 GM 06/29/2020 12:00:00 AM EDT 1.0 {tablet} active Va ltrex 1 GM eCW1 ([facility]) valacyclovir 1000 MG Oral Tablet [Valtrex] Valtrex 1 GM Valt renato 1 GM 06/29/2020 12:00:00 AM EDT 1.0 {tablet} suspended Valtrex 1 GM eCW1 ([facility]) valacyclovir 1000 MG Oral Tablet [Valtrex] Valtrex 1 GM Valt renato 1 GM 06/29/2020 12:00:00 AM EDT 1.0 {tablet} active Va ltrex 1 GM eCW1 ([facility]) valacyclovir 1000 MG Oral Tablet [Valtrex] Valtrex 1 GM Valt renato 1 GM 06/29/2020 12:00:00 AM EDT 1.0 {tablet} active Va ltrex 1 GM eCW1 ([facility]) valacyclovir 1000 MG Oral Tablet [Valtrex] Valtrex 1 GM Valt renato 1 GM 06/29/2020 12:00:00 AM EDT 1.0 {tablet} suspended Valtrex 1 GM eCW1 ([facility]) valacyclovir 1000 MG Oral Tablet [Valtrex] Valtrex 1 GM Valt renato 1 GM 06/29/2020 12:00:00 AM EDT 1.0 {tablet} active Va ltrex 1 GM eCW1 ([facility]) valacyclovir 1000 MG Oral Tablet [Valtrex] Valtrex 1 GM Valt renato 1 GM 06/29/2020 12:00:00 AM EDT 1.0 {tablet} active Va ltrex 1 GM eCW1 ([facility]) valacyclovir 1000 MG Oral Tablet [Valtrex] Valtrex 1 GM Valt renato 1 GM 06/29/2020 12:00:00 AM EDT 1.0 {tablet} suspended Valtrex 1 GM eCW1 ([facility]) valacyclovir 1000 MG Oral Tablet [Valtrex] Valtrex 1 GM Valt renato 1 06/29/2020 12:00:00 AM EDT 1.0 {tablet} active Va ltrex 1 GM eCW1 ([facility]) valacyclovir 1000 MG Oral Tablet VALACYCLOVIR HCL [...] {tablet} active Va ltrex 1 GM eCW1 ([facility]) valacyclovir 1000 MG Oral Tablet [Valtrex] Valtrex 1 GM Valt renato 1 GM 06/29/2020 12:00:00 AM EDT 1.0 {tablet} suspended Valtrex 1 GM eCW1 ([facility]) valacyclovir 1000 MG Oral Tablet [Valtrex] Valtrex 1 GM Valt renato 1 GM 06/29/2020 12:00:00 AM EDT 1.0 {tablet} active Va ltrex 1 GM eCW1 ([facility]) valacyclovir 1000 MG Oral Tablet [Valtrex] Valtrex 1 GM Valt renato 1 GM 06/29/2020 12:00:00 AM EDT 1.0 {tablet} active Va ltrex 1 GM eCW1 ([facility]) pantoprazole 40 MG Delayed Release Oral Tablet [...] suspended Pantoprazole Sodium 40 MG eCW1 ( [facility]) pantoprazole 40 MG Delayed Release Oral Tablet Pantopr azole Sodium 40 MG Pantoprazole Sodium 40 MG 06/22/2020 12:00:00 AM EDT 1.0 {tablet} suspended Pantoprazole Sodium 40 MG eCW1 ( [facility]) pantoprazole 40 MG Delayed Release Oral Tablet Pantopr azole Sodium 40 MG Pantoprazole Sodium 40 MG 06/22/2020 12:00:00 AM EDT 1.0 {tablet} active Pantoprazole Sodium 40 MG eCW1 ( [facility]) pantoprazole 40 MG Delayed Release Oral Tablet Pantopr azole Sodium 40 MG Pantoprazole Sodium 40 MG 06/22/2020 12:00:00 AM EDT 1.0 {tablet} suspended Pantoprazole Sodium 40 MG eCW1 ( [facility]) pantoprazole 40 MG Delayed Release Oral Tablet Pantopr azole Sodium 40 MG Pantoprazole Sodium 40 MG 06/22/2020 12:00:00 AM EDT 1.0 {tablet} suspended Pantoprazole Sodium 40 MG eCW1 ( [facility]) pantoprazole 40 MG Delayed Release Oral Tablet Pantopr azole Sodium 40 MG Pantoprazole Sodium 40 MG 06/22/2020 12:00:00 AM EDT 1.0 {tablet} suspended Pantoprazole Sodium 40 MG eCW1 ( [facility]) pantoprazole 40 MG Delayed Release Oral Tablet Pantopr azole Sodium 40 MG Pantoprazole Sodium 40 MG 06/22/2020 12:00:00 AM EDT 1.0 {tablet} suspended Pantoprazole Sodium 40 MG eCW1 ( [facility]) pantoprazole 40 MG Delayed Release Oral Tablet Pantopr azole Sodium 40 MG Pantoprazole Sodium 40 MG 06/22/2020 12:00:00 AM EDT 1.0 {tablet} suspended Pantoprazole Sodium 40 MG eCW1 ( [facility]) pantoprazole 40 MG Delayed Release Oral Tablet Pantopr azole Sodium 40 MG Pantoprazole Sodium 40 MG 06/22/2020 12:00:00 AM EDT 1.0 {tablet} suspended Pantoprazole Sodium 40 MG eCW1 ( [facility]) pantoprazole 40 MG Delayed Release Oral Tablet Pantopr azole Sodium 40 MG Pantoprazole Sodium 40 MG 06/22/2020 12:00:00 AM EDT 1.0 {tablet} suspended Pantoprazole Sodium 40 MG eCW1 ( [facility]) pantoprazole 40 MG Delayed Release Oral Tablet Pantopr azole Sodium 40 MG Pantoprazole Sodium 40 MG 06/22/2020 12:00:00 AM EDT 1.0 {tablet} active Pantoprazole Sodium 40 MG eCW1 ( [facility]) pantoprazole 40 MG Delayed Release Oral Tablet Pantopr azole Sodium 40 MG Pantoprazole Sodium 40 MG 06/22/2020 12:00:00 AM EDT 1.0 {tablet} suspended Pantoprazole Sodium 40 MG eCW1 ( [facility]) pantoprazole 40 MG Delayed Release Oral Tablet Pantopr azole Sodium 40 MG Pantoprazole Sodium 40 MG 06/22/2020 12:00:00 AM EDT 1.0 {tablet} suspended Pantoprazole Sodium 40 MG eCW1 ( [facility]) pantoprazole 40 MG Delayed Release Oral Tablet Pantopr azole Sodium 40 MG Pantoprazole Sodium 40 MG 06/22/2020 12:00:00 AM EDT 1.0 {tablet} suspended Pantoprazole Sodium 40 MG eCW1 ( [facility]) pantoprazole 40 MG Delayed Release Oral Tablet Pantopr azole Sodium 40 MG Pantoprazole Sodium 40 MG 06/22/2020 12:00:00 AM EDT 1.0 {tablet} suspended Pantoprazole Sodium 40 MG eCW1 ( [facility]) pantoprazole 40 MG Delayed Release Oral Tablet Pantopr azole Sodium 40 MG Pantoprazole Sodium 40 MG 06/22/2020 12:00:00 AM EDT 1.0 {tablet} suspended Pantoprazole Sodium 40 MG eCW1 ( [facility]) 100 mg 06/06/2020 12:00:00 AM EDT tablet [...] AM EDT ORAL completed MEDENT ([facility]) Spironolactone 25 MG Oral Tablet Spironolactone 05/18/2020 12:00:00 A M EDT ORAL completed [facility] ([facility]) torsemide 100 MG Oral Tablet Torsemide 05/18/2020 12:00:00 AM EDT ORAL completed [facility] ([facility]) pantoprazole 40 MG Delayed Release Oral Tablet [Protonix] Pr otonix 05/18/2020 12:00:00 AM EDT ORAL active M EDENT ([facility]) pantoprazole 40 MG Delayed Release Oral Tablet [...] EVERY DAY SOLD: 11/06/2020 [facility] Pen [place]by 32G X 4 MM Pen [place]by 32G X 4 MM 05/02/2020 12:00:[address] suspended Pen [place] 32G X 4 MM eC W1 ([facility]) Pen Selby 32G X 4 MM Pen [place] 32G X 4 MM 05/02/2020 12:00:[address] suspended Pen [place] 32G X 4 MM eC W1 ([facility]) Pen [place] 32G X 4 MM Pen [place] 32G X 4 MM 05/02/2020 12:00:[address] suspended [place] 32G X 4 MM eC W1 ([facility]) Pen [place]by 32G X 4 MM Pen [place] 32G X 4 MM 05/02/2020 12:00:[address] suspended Pen [place] 32G X 4 MM eC W1 ([facility]) Pen [place]by 32G X 4 MM Pen [place] 32G X 4 MM 05/02/2020 12:00:[address] suspended Pen [place] 32G X 4 MM eC W1 ([facility]) Pen Selby 32G X 4 MM Pen [place] 32G X 4 MM 05/02/2020 12:00:[address] suspended Pen [place] 32G X 4 MM eC W1 ([facility]) Pen Selby 32G X 4 MM Pen [place] 32G X 4 MM 05/02/2020 12:00:[address] suspended Pen [place] 32G X 4 MM eC W1 ([facility]) Pen Selby 32G X 4 MM Pen [place] 32G X 4 MM 05/02/2020 12:00:[address] suspended Pen [place] 32G X 4 MM eC W1 ([facility]) Pen Selby 32G X 4 MM Pen [place] 32G X 4 MM 05/02/2020 12:00:[address] active Pen [place]by 32G X 4 MM eC W1 ([facility]) Pen Selby 32G X 4 MM Pen [place] 32G X 4 MM 05/02/2020 12:00:[address] suspended Pen [place] 32G X 4 MM eC W1 ([facility]) Pen Selby 32G X 4 MM Pen [place] 32G X 4 MM 05/02/2020 12:00:[address] suspended Pen [place] 32G X 4 MM eC W1 ([facility]) Pen Selby 32G X 4 MM Pen [place] 32G X 4 MM 05/02/2020 12:00:[address] suspended Pen [place] 32G X 4 MM eC W1 ([facility]) Pen Selby 32G X 4 MM Pen [place] 32G X 4 MM 05/02/2020 12:00:[address] suspended Pen [place] 32G X 4 MM eC W1 ([facility]) Pen Selby 32G X 4 MM Pen [place] 32G X 4 MM 05/02/2020 12:00:[address] suspended Pen [place] 32G X 4 MM eC W1 ([facility]) Pen Selby 32G X 4 MM Pen [place] 32G X 4 MM 05/02/2020 12:00:[address] suspended Pen [place] 32G X 4 MM eC W1 ([facility]) Pen Selby 32G X 4 MM Pen [place] 32G X 4 MM 05/02/2020 12:00:[address] suspended Pen [place] 32G X 4 MM eC W1 ([facility]) Pen Selby 32G X 4 MM Pen [place] 32G X 4 MM 05/02/2020 12:00:[address] suspended Pen [place] 32G X 4 MM eC W1 ([facility]) Pen Selby 32G X 4 MM Pen [place] 32G X 4 MM 05/02/2020 12:00:[address] suspended Pen [place] 32G X 4 MM eC W1 ([facility]) Pen Selby 32G X 4 MM Pen [place] 32G X 4 MM 05/02/2020 12:00:[address] suspended Pen [place] 32G X 4 MM eC W1 ([facility]) Pen Selby 32G X 4 MM Pen [place] 32G X 4 MM 05/02/2020 12:00:[address] suspended Pen [place] 32G X 4 MM eC W1 ([facility]) Pen Selby 32G X 4 MM Pen [place] 32G X 4 MM 05/02/2020 12:00:[address] suspended Pen [place]by 32G X 4 MM eC W1 ([facility]) 175 mcg 04/22/2020 12:00:00 AM EST tablet [...] EST ORAL completed [facility] ([facility]) Glucometer UNK 03/17/2020 12:00:00 AM EST suspend ed Glucometer eCW1 ([facility]) Test Strips - UNK 03/17/2020 12:00:00 AM EST suspended Test Strips - eCW1 ([facility]) Test Strips - UNK 03/17/2020 12:00:00 AM EST acti ve Test Strips - eCW1 ([facility]) Glucometer UNK 03/17/2020 12:00:00 AM EST suspend ed Glucometer eCW1 ([facility]) Glucometer UNK 03/17/2020 12:00:00 AM EST suspend ed Glucometer eCW1 ([facility]) Test Strips - UNK 03/17/2020 12:00:00 AM EST suspended Test Strips - eCW1 ([facility]) Glucometer UNK 03/17/2020 12:00:00 AM EST suspend ed Glucometer eCW1 ([facility]) Test Strips - UNK 03/17/2020 12:00:00 AM EST acti ve Test Strips - eCW1 ([facility]) Glucometer UNK 03/17/2020 12:00:00 AM EST suspend ed Glucometer eCW1 ([facility]) Test Strips - UNK 03/17/2020 12:00:00 AM EST acti ve Test Strips - eCW1 ([facility]) Glucometer UNK 03/17/2020 12:00:00 AM EST active Glucometer eCW1 ([facility]) Test Strips - UNK 03/17/2020 12:00:00 AM EST acti ve Test Strips - eCW1 ([facility]) Glucometer UNK 03/17/2020 12:00:00 AM EST suspend ed Glucometer eCW1 ([facility]) Glucometer UNK 03/17/2020 12:00:00 AM EST suspend ed Glucometer eCW1 ([facility]) Glucometer UNK 03/17/2020 12:00:00 AM EST suspend ed Glucometer eCW1 ([facility]) Glucometer UNK 03/17/2020 12:00:00 AM EST suspend ed Glucometer eCW1 ([facility]) Glucometer UNK 03/17/2020 12:00:00 AM EST suspend ed Glucometer eCW1 ([facility]) Test Strips - UNK 03/17/2020 12:00:00 AM EST acti ve Test Strips - eCW1 ([facility]) Glucometer UNK 03/17/2020 12:00:00 AM EST suspend ed Glucometer eCW1 ([facility]) Test Strips - UNK 03/17/2020 12:00:00 AM EST acti ve Test Strips - eCW1 ([facility]) Glucometer UNK 03/17/2020 12:00:00 AM EST suspend ed Glucometer eCW1 ([facility]) Test Strips - UNK 03/17/2020 12:00:00 AM EST suspended Test Strips - eCW1 ([facility]) Test Strips - UNK 03/17/2020 12:00:00 AM EST acti ve Test Strips - eCW1 ([facility]) Test Strips - UNK 03/17/2020 12:00:00 AM EST acti ve Test Strips - eCW1 ([facility]) Test Strips - UNK 03/17/2020 12:00:00 AM EST acti ve Test Strips - eCW1 ([facility]) Glucometer UNK 03/17/2020 12:00:00 AM EST suspend ed Glucometer eCW1 ([facility]) Glucometer UNK 03/17/2020 12:00:00 AM EST suspend ed Glucometer eCW1 ([facility]) Test Strips - UNK 03/17/2020 12:00:00 AM EST suspended Test Strips - eCW1 ([facility]) Glucometer UNK 03/17/2020 12:00:00 AM EST suspend ed Glucometer eCW1 ([facility]) Test Strips - UNK 03/17/2020 12:00:00 AM EST acti ve Test Strips - eCW1 ([facility]) Test Strips - UNK 03/17/2020 12:00:00 AM EST suspended Test Strips - eCW1 ([facility]) Glucometer UNK 03/17/2020 12:00:00 AM EST suspend ed Glucometer eCW1 ([facility]) Glucometer UNK 03/17/2020 12:00:00 AM EST suspend ed Glucometer eCW1 ([facility]) Test Strips - UNK 03/17/2020 12:00:00 AM EST suspended Test Strips - eCW1 ([facility]) Test Strips - UNK 03/17/2020 12:00:00 AM EST acti ve Test Strips - eCW1 ([facility]) Test Strips - UNK 03/17/2020 12:00:00 AM EST suspended Test Strips - eCW1 ([facility]) Test Strips - UNK 03/17/2020 12:00:00 AM EST acti ve Test Strips - eCW1 ([facility]) Test Strips - UNK 03/17/2020 12:00:00 AM EST suspended Test Strips - eCW1 ([facility]) Glucometer UNK 03/17/2020 12:00:00 AM EST suspend ed Glucometer eCW1 ([facility]) Test Strips - UNK 03/17/2020 12:00:00 AM EST acti ve Test Strips - eCW1 ([facility]) Glucometer UNK 03/17/2020 12:00:00 AM EST suspend ed Glucometer eCW1 ([facility]) Test Strips - UNK 03/17/2020 12:00:00 AM EST suspended Test Strips - eCW1 ([facility]) Glucometer UNK 03/17/2020 12:00:00 AM EST active Glucometer eCW1 ([facility]) Glucometer UNK 03/17/2020 12:00:00 AM EST suspend ed Glucometer eCW1 ([facility]) Colesevelam hydrochloride 625 MG Oral Tablet Colesevel am HCl 625 MG Colesevelam HCl 625 MG 03/08/2020 12:00:00 AM EST 3.0 {tablets_with_meals} suspended Colesevelam HCl 625 MG eCW1 ([facility]) Colesevelam hydrochloride 625 MG Oral Tablet Colesevel am HCl 625 MG Colesevelam HCl 625 MG 03/08/2020 12:00:00 AM EST 3.0 {tablets_with_meals} suspended Colesevelam HCl 625 MG eCW1 ([facility]) Colesevelam hydrochloride 625 MG Oral Tablet Colesevel am HCl 625 MG Colesevelam HCl 625 MG 03/08/2020 12:00:00 AM EST 3.0 {tablets_with_meals} active Colesevelam HCl 625 MG eCW1 ([facility]) Colesevelam hydrochloride 625 MG Oral Tablet Colesevel am HCl 625 MG Colesevelam HCl 625 MG 03/08/2020 12:00:00 AM EST 3.0 {tablets_with_meals} suspended Colesevelam HCl 625 MG eCW1 ([facility]) Colesevelam hydrochloride 625 MG Oral Tablet Colesevel am HCl 625 MG Colesevelam HCl 625 MG 03/08/2020 12:00:00 AM EST 3.0 {tablets_with_meals} suspended Colesevelam HCl 625 MG eCW1 ([facility]) Colesevelam hydrochloride 625 MG Oral Tablet Colesevel am HCl 625 MG Colesevelam HCl 625 MG 03/08/2020 12:00:00 AM EST 3.0 {tablets_with_meals} active Colesevelam HCl 625 MG eCW1 ([facility]) Colesevelam hydrochloride 625 MG Oral Tablet Colesevel am HCl 625 MG Colesevelam HCl 625 MG 03/08/2020 12:00:00 AM EST 3.0 {tablets_with_meals} suspended Colesevelam HCl 625 MG eCW1 ([facility]) Colesevelam hydrochloride 625 MG Oral Tablet Colesevel am HCl 625 MG Colesevelam HCl 625 MG 03/08/2020 12:00:00 AM EST 3.0 {tablets_with_meals} suspended Colesevelam HCl 625 MG eCW1 ([facility]) Colesevelam hydrochloride 625 MG Oral Tablet Colesevel am HCl 625 MG Colesevelam HCl 625 MG 03/08/2020 12:00:00 AM EST 3.0 {tablets_with_meals} suspended Colesevelam HCl 625 MG eCW1 ([facility]) Colesevelam hydrochloride 625 MG Oral Tablet Colesevel am HCl 625 MG Colesevelam HCl 625 MG 03/08/2020 12:00:00 AM EST 3.0 {tablets_with_meals} suspended Colesevelam HCl 625 MG eCW1 ([facility]) Colesevelam hydrochloride 625 MG Oral Tablet Colesevel am HCl 625 MG Colesevelam HCl 625 MG 03/08/2020 12:00:00 AM EST 3.0 {tablets_with_meals} suspended Colesevelam HCl 625 MG eCW1 ([facility]) Colesevelam hydrochloride 625 MG Oral Tablet Colesevel am HCl 625 MG Colesevelam HCl 625 MG 03/08/2020 12:00:00 AM EST 3.0 {tablets_with_meals} suspended Colesevelam HCl 625 MG eCW1 ([facility]) Colesevelam hydrochloride 625 MG Oral Tablet Colesevel am HCl 625 MG Colesevelam HCl 625 MG 03/08/2020 12:00:00 AM EST 3.0 {tablets_with_meals} suspended Colesevelam HCl 625 MG eCW1 ([facility]) Colesevelam hydrochloride 625 MG Oral Tablet Colesevel am HCl 625 MG Colesevelam HCl 625 MG 03/08/2020 12:00:00 AM EST 3.0 {tablets_with_meals} suspended Colesevelam HCl 625 MG eCW1 ([facility]) Colesevelam hydrochloride 625 MG Oral Tablet Colesevel am HCl 625 MG Colesevelam HCl 625 MG 03/08/2020 12:00:00 AM EST 3.0 {tablets_with_meals} active Colesevelam HCl 625 MG eCW1 ([facility]) Colesevelam hydrochloride 625 MG Oral Tablet Colesevel am HCl 625 MG Colesevelam HCl 625 MG 03/08/2020 12:00:00 AM EST 3.0 {tablets_with_meals} suspended Colesevelam HCl 625 MG eCW1 ([facility]) Colesevelam hydrochloride 625 MG Oral Tablet Colesevel am HCl 625 MG Colesevelam HCl 625 MG 03/08/2020 12:00:00 AM EST 3.0 {tablets_with_meals} suspended Colesevelam HCl 625 MG eCW1 ([facility]) Colesevelam hydrochloride 625 MG Oral Tablet Colesevel am HCl 625 MG Colesevelam HCl 625 MG 03/08/2020 12:00:00 AM EST 3.0 {tablets_with_meals} suspended Colesevelam HCl 625 MG eCW1 ([facility]) Colesevelam hydrochloride 625 MG Oral Tablet Colesevel am HCl 625 MG Colesevelam HCl 625 MG 03/08/2020 12:00:00 AM EST 3.0 {tablets_with_meals} active Colesevelam HCl 625 MG eCW1 ([facility]) Colesevelam hydrochloride 625 MG Oral Tablet Colesevel am HCl 625 MG Colesevelam HCl 625 MG 03/08/2020 12:00:00 AM EST 3.0 {tablets_with_meals} suspended Colesevelam HCl 625 MG eCW1 ([facility]) Colesevelam hydrochloride 625 MG Oral Tablet Colesevel am HCl 625 MG Colesevelam HCl 625 MG 03/08/2020 12:00:00 AM EST 3.0 {tablets_with_meals} suspended Colesevelam HCl 625 MG eCW1 ([facility]) Colesevelam hydrochloride 625 MG Oral Tablet Colesevel am HCl 625 MG Colesevelam HCl 625 MG 03/08/2020 12:00:00 AM EST 3.0 {tablets_with_meals} suspended Colesevelam HCl 625 MG eCW1 ([facility]) Colesevelam hydrochloride 625 MG Oral Tablet Colesevel am HCl 625 MG Colesevelam HCl 625 MG 03/08/2020 12:00:00 AM EST 3.0 {tablets_with_meals} suspended Colesevelam HCl 625 MG eCW1 ([facility]) Colesevelam hydrochloride 625 MG Oral Tablet Colesevel am HCl 625 MG Colesevelam HCl 625 MG 03/08/2020 12:00:00 AM EST 3.0 {tablets_with_meals} suspended Colesevelam HCl 625 MG eCW1 ([facility]) 625 mg 03/07/2020 12:00:00 AM EST tablet [...] AM EDT ORAL active [facility] ([facility]) Ocuvite Adult 50+ 12/23/2019 12:00:00 AM EDT ORAL active [facility] ([facility]) 1-0.05 % 12/14/2019 12:00:00 AM EDT cream 45 APPLY TO AFFECTED AREA(S) ON LEGS/FEET WITH RASH TWO TIMES A DAY APPLY TO AFFECTED AREA(S) ON LEGS/FEET W ITH RASH TWO TIMES A DAY SOLD: 02/08/2020 [facility] 1-0.05 % 12/14/2019 12:00:00 AM [...] MG Oral Tablet IVONNE (Myranda Reagan [facility]) Aspirin 81 MG Oral Tablet Aspirin 81 MG Tablet Aspirin 81 MG Tablet 04/22/2015 12:00:00 AM EST 1 aborted aspirin 81 MG Oral Tablet IVONNE (Myranda Reagan [facility]) dabigatran etexilate 150 MG Oral Capsule [Pradaxa] Pra yifan 150 MG Capsule Pradaxa 150 MG Capsule 04/22/2015 12:00:00 AM EST 1 aborted dabigatran etexilate 150 MG Oral Capsule [Pradaxa] IVONNE (Myranda Reagan MD [facility]) Magnesium 64 MG Tablet Magnesium 64 MG Tablet 04/22/2015 12:00:[address] 1 aborted Magnesium IVONNE (Main Reagan [facility]) valacyclovir 1000 MG Oral Tablet ValACYclovir HCl 1 GM Tablet ValACYclovir HCl 1 GM Tablet 04/22/2015 12:00:00 AM EST 1 aborted valacyclovir 1000 MG Oral Tablet IVONNE (Myranda Reagan [facility]) Salicylic Acid 0.06 MG/MG Topical Gel [Keralyt] Keralyt 6 % Gel Keralyt 6 % Gel 04/22/2015 12:00:00 AM EST aborted salicylic acid 0.06 MG/MG Topical Gel [Keralyt] IVONNE (Myranda Reagan MD [facility]) Allopurinol 300 MG Oral Tablet Allopurinol 300 MG Tabl et Allopurinol 300 MG Tablet 04/22/2015 12:00:00 AM EST 1 aborted allopurinol 300 MG Oral Tablet IVONNE (Myranda Reagan [facility]) Omeprazole 40 MG Delayed Release Oral Ca psule Omeprazole 40 MG Capsule Delayed Release Omeprazole 40 MG Capsule Delayed Release 04/22/2015 12:00:00 AM EST 1 aborted omeprazole 40 MG Del ayed Release Oral Capsule IVONNE (Myranda Reagan [facility]) Mupirocin 0.02 MG/MG Topical Ointment Mupirocin 2 % Oi ntment Mupirocin 2 % Ointment 04/22/2015 12:00:00 AM EST aborted mupirocin 0.02 MG/MG Topical Ointment IVONNE (Myranda Reagan [facility]) Colesevelam hydrochloride 625 MG Oral Tablet [Welchol] Welchol 625 MG Tablet Welchol 625 MG Tablet 04/22/2015 12:00:00 AM EST aborted colesevelam hydrochloride 625 MG Oral Tablet [Welchol] IVONNE (Myranda Reagan [facility]) Glucosamine Chondroitin Complx Tablet Glucosamine Chondroiti n Complx Tablet 04/22/2015 12:00:00 AM EST aborted Glucosamine Chondroitin Complx IVONNE (Myranda Reagan [facility]) Insurance Providers Payer name Policy type / Coverage type Policy ID Covered alliance party ID Covered alliance party's relationship to oliva Policy Oliva Plan Information [id number] [facility] B [id number] Self [id number] [facility] B [id number] Self [id number] [facility] Part B [id number] Self [id number] [place] Primary [id number] [id number] Self 4 [id number] Medicare (Part B) Medicare Primary [id number] [id number] Self [id number] Medicare (Part B) Medicare Primary [id number] [id number] Self 1 [id number] [place] Medicare Primary [id number] Self [id number] Medicare (Part B) Medicare Primary [id number] Self Medicare (Part B) Medicare Primary [id number] Self [id number] Medicare (Part B) Medicare Primary [id number] Self [id number] Medicare (Part B) Medicare Primary [id number] Self [id number] Medicare (Part B) Medicare Primary [id number] Self 4 [id number] MEDICARE [id number] SP [id number] Medicare (Part B) Medicare Primary [id number] Self [id number] [place] Medicare Primary [id number] Self [id number] MEDICARE M [id number] S [id number] A Medicare (Part B) Medicare Primary [id number] Self 4 [id number] [place] Medicare Primary [id number] Self [id number] MEDICARE - [place] [id number] S [id number] Medicare (Part B) Medicare Primary [id number] Self [id number] [place] Medicare Primary [id number] Self [id number] Medicare (Part B) Medicare Primary [id number] Self 1 [id number] MEDICARE [id number] SP [id number] A Medicare Medicare Primary [id number] Self Medicare [place] Primary [id number] Self 4 [id number] [facility] OMER DIV [id number] SP [id number] [facility] [id number] SP [id number] [facility] OMER DIV [id number] SP [id number] [facility] [place] Medigap Part B [id number] Self [id number] [place] Plan-[employer] Medigap Part B [id number] Self [id number] [place] Plan-[employer] Medigap Part B [id number] Self [id number] [facility] [place] Medigap Part B [id number] Self [id number] Medicare Dme Supplies Medigap Part B [id number] [id number] Self [id number] [facility] [place] Plan Medigap Part B [id number] .[id number] Self [id number] [facility] Medicare Part A [place] Primary [id number] [id number] Self 4 [id number] MEDICARE -[facility] [place] [id number] 18 [id number] [facility] -[facility] [id number] 18 [id number] [place] Plan-[facility] Medigap Part B [id number] Self [id number] [facility] [place] Plan Medigap Part B [id number] .[id number] Self [id number] [facility] Medicare Part A [place] Primary [id number] Self 4 [id number] [place]-[facility] Medigap Part B [id number] Self [id number] [facility] [place] Plan Medigap Part B [id number] .[id number] Self [id number] Medicare Part [place] Primary [id number] 2.16.840.1.29[id number] Self 4 [id number] [facility] [id number] SP [id number] MEDICARE [id number] SP [id number] A [place] Plan Medigap Part B [id number] .[id number] Self [id number] Medicare - [place] Medicare Primary [id number] 2.16.840.1.98[id number] Self 4 [id number] [facility] [place] Plan Medigap Part B [id number] 2.16.840.1.939898.3.227 .[id number] Self [id number] Medicare Part [place] Primary [id number] [id number] Self 4 [id number] [facility] [place] Plan Medigap Part B [id number] 2.16.840.1.679331.3.227 .[id number] Self [id number] Medicare Part [place] Primary [id number] 2.16.840.1.32[id number] Self 4 [id number] [place] [facility] Medigap Part B [id number] Self [id number] [place] [employer] Medigap Part B [id number] 2.0.1.248321.3.227.99.572.48710.0 Self [id number] MEDICARE PART A -O/P [id number] 18 [id number] [facility] [place] Medigap Part B [id number] 2.0.1.898923.3.227 .99.510.11442.0 Self [id number] [place] Part [place] Primary [id number].510.79769.0 Self 1 [id number] MEDICARE PART A [facility] [id number] 18 [id number] [facility] O [id number] S [id number] MEDICARE C [id number] S [id number] A Medicare Part B [facility] Other 0 [id number] S elf 0 [facility] [employer] Other 0 [id number] Self 0 [place] Plan Medigap Part B [id number] 2.16840.1.375257.3.227.99 .177.89954.0 Self [id number] Medicare - [facility] Medicare Primary [id number].177.20783.0 Self 1 [id number] [place] [employer] Medigap Part B [id number] 2.16840.1.670632.3.227.99.572.56765.0 Self [id number] [place] Medigap Part B [id number] 2.16.840.1.876116.3.227.99 .177.77876.0 Self [id number] Medicare - [place] Medicare Primary [id number] 2.16.840.1.462243.3.227.99.177.45709.0 Self 1 [id number] [place] [employer] Medigap Part B [id number] Self [id number] MEDICAID [id number] SP [id number] [facility] PART B C [id number] S [id number] [place] Plan-[employer] Medigap Part B [id number] Self [id number] [facility] Commercial [id number] Self Medicare Part B Medicare Primary [id number] Self [place] [facility] Medigap Part B [id number] Self MEDICARE [id number] SP [id number] MANAGED PHYSICAL NETWORK -R [id number] 18 [id number] MEDICARE MCA [id number] SE [id number] [place] ([place], [place]) Medicare Primary [id number] Self Medicare Medicare Primary [id number] Self BLUE CROSS O [id number] S [id number] MEDICARE -O/P [id number] 18 [id number] [facility] (HMO) [id number] Self UNHC AMERICHOICE XIX -HMO [id number] 18 [id number] UNHC AMERICHOICE XIX -HMO [id number] 18 [id number] UNITED HEALTHCARE S [id number] S [id number] MEDICARE -RECURRING [id number] 18 [id number] UNITED HEALTHCARE [id number] SP [id number] [place]IC[place] UNAVAILABLE UNAVAILABLE [place] MEDICARE DIVISION [id number] S [id number] BCBS EMPIRE [id number] S [id number] UNITED HEALTHCARE [id number] S [id number] UNITED HEALTHCARE [id number] SP [id number] [facility] [employer] ([place] - [employer] Other 0 [id number] Self 0 Medicare Part B of [place] Other 0 [id number] Self 0 [facility] [employer] [place] - [employer] Other 0 [id number] Self 0 Medicare Part B [place] Other 0 [id number] Self 0 [facility] [employer] [place] - [employer] Other 0 [id number] Self 0 Medicare Part B of [place] Other 0 [id number] Self 0 BCBS EMPIRE OMER DIV UNAVAILABLE UNAVAILABLE MEDICARE PART A -O/P [id number] 18 [id number] EMPIRE BLUE CROSS BLUE SHIELD -O/P [id number] 18 [id number] [facility] MEDICARE PART A [facility] [id number] 18 [id number] [facility] EMPIRE PLAN [id number] 18 [id number] EMPIRE BLUE CROSS BLUE SHIELD -O/P [id number] 18 [id number] UNAVAILABLE UNAVAILA BLE EXCELLUS BLUE CROSS BLUE SHIELD HEA [id number] S [id number] [address]ICARE [facility] [id number] S [id number] [facility] [id number] S [id number] MEDICARE PART A [facility] [id number] 18 [id number] [facility] [place] Plan Medigap Part B [id number] Self [id number] [facility] Medicare Part A [place] Medicare Primary [id number] Self [id number] [facility] [place] Medigap Part B [id number] Self [id number] [place] [facility] Medigap Part B [id number] Self [id number] Problems, Conditions, and Diagnoses Code Display Name Description Problem Type Effective Dates Data Source(s) N18.9 [id number] Chronic kidney disease, unspecified CKD s tage Problem 11/10/2020 12:00:00 AM EDT eCW1 ([facility]) N26.1 [id number] Atrophic kidney Problem 11/10/2020 12:00:00 AM EDT eCW1 ([facility]) N32.9 122210602 Lesion of bladder Problem 11/10/2020 12:00:0 0 AM EDT eCW1 ([facility]) N32.89 [id number] Bladder wall thickening Problem 10/10/2020 1 2:00:00 AM EDT eCW1 ([facility]) [id number] 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 Borderline Glaucoma Open Angle with Borderline Findings Both Eyes Problem 07/27/2020 12:00:00 AM EDT IVONNE (Myranda Reagan MD [facility]) [id number] 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 Borderline Glaucoma Open Angle with Borderline Findings Both Eyes Problem 07/27/2020 12:00:00 AM EDT IVONNE (Myrnada Reagan MD [facility]) [id number] 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 Borderline Glaucoma Open Angle with Borderline Findings Both Eyes Problem 07/27/2020 12:00:00 AM EDT IVONNE (Myranda Reagan MD [facility]) [id number] Cirrhosis of liver Cirrhosis of liver Problem 12:00:00 AM EDT MEDENT ([facility]) K21.9 [id number] Gastroesophageal ref lux disease, unspecified whether esophagitis present Problem 06/22/2020 12:00:00 AM EDT eCW1 [facility] K75.81 [id number] GALAVIZ (nonalcoholic steatohepatitis) Probl em 05/19/2020 12:00:00 AM EDT eCW1 ([facility]) I85.11 48618319 Secondary esophageal varices with bleedin g Problem 05/19/2020 12:00:00 AM EDT eCW1 ([facility]) K74.60 227496582 Unspecified cirrhosis of liver Problem 05/19/2020 12:00:00 AM EDT eCW1 ([facility]) M1A.0720 [id number] 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 Problem 03/17/2020 12:00:00 AM EST eCW1 (formerly [facility]) [id number] 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 Problem 11/27/2019 12:00:00 AM EDT IVONNE (Myranda Reagan MD [facility]) [id number] 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 Problem 11/27/2019 12:00:00 AM EDT IVONNE (Myranda Reagan MD [facility]) [id number] 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 Problem 11/27/2019 12:00:00 AM EDT IVONNE (Myranda Reagan MD [facility]) Surgeries/Procedures Procedure Description Date Indications Data Source(s) Complex Chronic Care Management SVC 1St 60 Min 021 12:00:00 AM EDT MEDENT ([facility]) Complex Chronic Care MGMT Service Ea Addl 30 Min 11/15 12:00:00 AM EDT MEDENT ([facility]) OFFICE OUTPATIENT VISIT 15 MINUTES 10/12/2020 12:00:00 AM EDT MEDENT ([facility]) Complex Chronic Care Management SVC 1St 60 Min 021 12:00:00 AM EDT MEDENT ([facility]) Complex Chronic Care MGMT Service Ea Addl 30 Min 09/21 12:00:00 AM EDT MEDENT ([facility]) PNEUMOCOCCAL POLYSAC VACCINE 23-V 2 />YR SUBQ/IM 09/13 12:00:00 AM EDT eCW1 ([facility]) Chronic Care Management Services Ea Addl 20 Min 2020 12:00:00 AM EDT MEDENT ([facility]) Chronic Care MGMT 20 Mins Clinical Staff Time Per Calendar M onth 08/18/2020 12:00:00 AM EDT MEDENT ([facility]) UPPER GI NDSC DX W/WO COLLECTION SPECIMEN 08/10/2020 1 2:00:00 AM EDT MEDENT ([facility]) Visual Field (WAIVER OF LIABILITY ON FILE (ABN)) Visua l Field (WAIVER OF LIABILITY ON FILE (ABN)) 08/05/2020 12:00:00 AM EDT IVONNE (Myranda Reagan MD [facility]) Cataract surgery (procedure) History of cataract surgery PC IOL OU Dr. Murillo 07/27/2020 12:00:00 AM EDT IVONNE (Myranda lopez MD [facility]) Comprehensive eye exam established patient (Signi/Sep Eval. & Man.) Comprehensive eye exam established patient (Signi/Sep Eval. 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, Esophageal Varice removal 201907/27/2020 12:00:00 AM EDT IVONNE (Myranda lopez MD [facility]) COMPUTERIZED OPHTHALMIC IMAGING RETINA Scodi Retina, w ith interpretation and report (GA) 07/27/2020 12:00:00 AM EDT IVONNE (Artis Reagan MD [facility]) Comprehensive eye exam established patient (25) Compre hensive eye exam established patient (25) 07/27/2020 12:00:00 AM EDT IVONNE (Myranda Reagan MD [facility]) OFFICE OUTPATIENT NEW 45 MINUTES 07/21/2020 12:00:00 A M EDT MEDENT ([facility]) OFFICE OUTPATIENT VISIT 10 MINUTES 07/11/2020 12:00:00 AM EDT MEDENT ([facility]) Chronic Care Management Services Ea Addl 20 Min 2020 12:00:00 AM EDT MEDENT ([facility]) Chronic Care MGMT 20 Mins Clinical Staff Time Per Calendar M [facility] 07/06/2020 12:00:00 AM EDT MEDENT ([facility]) Chronic Care Management Services Ea Addl 20 Min 2020 12:00:00 AM EDT MEDENT ([facility]) Chronic Care MGMT 20 Mins Clinical Staff Time Per Calendar M [facility] 05/27/2020 12:00:00 AM EDT MEDENT ([facility]) ECG ROUTINE ECG W/LEAST 12 LDS W/I&R 05/19/2020 12:00: 00 AM EDT MEDENT ([facility]) OFFICE OUTPATIENT VISIT 25 MINUTES 05/19/2020 12:00:00 AM EDT MEDENT ([facility]) Complex Chronic Care Management SVC 1St 60 Min 021 12:00:00 AM EDT MEDENT ([facility]) Complex Chronic Care MGMT Service Ea Addl 30 Min 05/18 12:00:00 AM EDT MEDENT ([facility]) Complex Chronic Care Management SVC 1St 60 Min 021 12:00:00 AM EST MEDENT ([facility]) Complex Chronic Care MGMT Service Ea Addl 30 Min 04/19 12:00:00 AM EST MEDENT ([facility]) OFFICE OUTPATIENT VISIT 15 MINUTES 04/18/2020 12:00:00 AM EST MEDENT ([facility]) Chronic Care Management Services Ea Addl 20 Min 2020 12:00:00 AM EST MEDENT ([facility]) Chronic Care MGMT 20 Mins Clinical Staff Time Per Calendar M [facility] 03/07/2020 12:00:00 AM EST MEDENT ([facility]) Surgical / procedural history Pacemaker, 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 & Man.) Comprehensive eye exam established patient (Signi/Sep Eval. & Man.) 01/14/2020 12:00:00 AM EST IVONNE (Myranda Reagan MD [facility]) Scodi Retina, with interpretation and re port (WAIVER OF LIABILITY ON FILE (ABN)) Scodi Retina, with interpretation and re port (WAIVER OF LIABILITY ON FILE (ABN)) 11/27/2019 12:00:00 AM EDT IVONNE (Artis Reagan MD [facility]) Comprehensive eye exam established patient (Signi/Sep Eval. & Man.) Comprehensive eye exam established patient (Signi/Sep Eval. & Man.) 11/27/2019 12:00:00 AM EDT [place] (Myranda Reagan MD [facility]) Results ID Date Data Source [id number] 12/27/2020 07:23:00 AM EDT [facility] [...] rce(s) Supporting Document(s) ID Date Data Source [id number] 12/27/2020 06:10:00 AM EDT [facility] Name Value Range Interpretation Code Description Data Eugenia rce(s) Supporting Document(s) WHITE BLOOD COUNT 13.7 K/mm3 4.0-10.0 [facility] RED BLOOD COUNT 3.16 M/mm3 4.50-6.00 L [facility] HEMOGLOBIN 8.5 gm/dL 14.0-18.0 L [facility] HEMATOCRIT 27.2 % 42.0-54.0 L [facility] MEAN CELL VOLUME 86.1 fl 80-96 [facility] MEAN CORPUSCULAR HEMOGLOBIN 26.9 pg 27.0-31.0 L [facility] MEAN CORPUSCULAR HGB CONC 31.3 g/dl 32.0-36.0 L [facility] RED CELL DISTRIBUTION WIDTH 18.0 % 10.0-14.5 H [facility] PLATELET COUNT 261 K/mm3 172-450 [facility] MEAN PLATELET VOLUME 12.7 fl 9.0-13.0 [facility] pital GRAN % 84.2 % 50-80.0 H [facility] IG% 1.0 % 0.0-0.2 H [facility] LYMPH % 4.5 % 25.0-50.0 L [facility] MONO % 9.9 % 2.0-10.0 [facility] EOS % 0.1 % 0-5.0 [facility] BASO % 0.3 % 0.0-2.0 [facility] GRAN # 11.5 K/mm3 2.0-8.00 H [facility] IG# 0.1 K/mm3 0.0-0.2 [facility] LYMPH # 0.6 K/mm3 1.0-5.0 L [facility] MONO # 1.4 K/mm3 0.10-1.20 H [facility] EOS # 0.0 K/mm3 0.0-0.5 [facility] BASO # 0.0 K/mm3 0.0-0.2 [facility] ID Date Data Source [id number] 12/26/2020 09:15:00 PM EDT [facility] TSYSORDER [id number] Name Value Range Interpretation Code Description Data Eugenia rce(s) Supporting Document(s) GLUCOSE 119 mg/dL 74-106 H [facility] BLOOD UREA NITROGEN 103 mg/dL 7-18 H [facility] ital CREATININE 10.71 mg/dl 0.70-1.30 H [facility] SODIUM 140 mmol/L 136-145 [facility] POTASSIUM 6.3 mmol/L 3.5-5.1 H [facility] CHLORIDE 108 mmol/L 98-107 H [facility] CO2 11 mmol/L 21-32 L [facility] CALCIUM 8.3 mg/dL 8.5-10.1 L [facility] ANION GAP 21.0 mmol/L 5-12 H [facility] GLOMERULAR FILTRATION RATE 5 mL/min [facility] GFR IS CALCULATED IN mL/min/1.73m2 ABELARDO L FUNCTION: >90MILDLY DECREASED: 60-89MILDY TO MODERATELY DECREASED: 45-59 MODERATELY TO SEVERELY DECREASED: 30-44SEVERELY DECREASED: 15-29RENAL FAILURE: <15 AST 42 U/L 15-37 H [facility] ALT 46 U/L 16-63 [facility] ALKALINE PHOSPHATASE 210 U/L 46-116 H [facility] TOTAL BILIRUBIN 1.7 mg/dL 0.2-1.0 H [facility] TOTAL PROTEIN 4.6 g/dL 6.4-8.2 L [facility] ALBUMIN 2.5 gm/dL 3.4-5.0 L [facility] ID Date Data Source [id number] 12/26/2020 08:58:00 PM EDT [facility] TSYSORDER [id number] Name Value Range Interpretation Code Description Data Eugenia rce(s) Supporting Document(s) WHITE BLOOD COUNT 13.4 K/mm3 4.0-10.0 H [facility] RED BLOOD COUNT 2.85 M/mm3 4.50-6.00 L [facility] HEMOGLOBIN 7.6 gm/dL 14.0-18.0 L [facility] HEMATOCRIT 24.3 % 42.0-54.0 L [facility] MEAN CELL VOLUME 85.3 fl 80-96 [facility] MEAN CORPUSCULAR HEMOGLOBIN 26.7 pg 27.0-31.0 L [facility] MEAN CORPUSCULAR HGB CONC 31.3 g/dl 32.0-36.0 L [facility] RED CELL DISTRIBUTION WIDTH 18.3 % 10.0-14.5 H [facility] PLATELET COUNT 273 K/mm3 172-450 [facility] MEAN PLATELET VOLUME 12.9 fl 9.0-13.0 [facility] pital GRAN % 82.1 % 50-80.0 H [facility] IG% 0.7 % 0.0-0.2 H [facility] LYMPH % 5.3 % 25.0-50.0 L [facility] MONO % 11.0 % 2.0-10.0 H [facility] EOS % 0.5 % 0-5.0 [facility] BASO % 0.4 % 0.0-2.0 [facility] GRAN # 11.0 K/mm3 2.0-8.00 H [facility] IG# 0.1 K/mm3 0.0-0.2 [facility] LYMPH # 0.7 K/mm3 1.0-5.0 L [facility] MONO # 1.5 K/mm3 0.10-1.20 H [facility] EOS # 0.1 K/mm3 0.0-0.5 [facility] BASO # 0.1 K/mm3 0.0-0.2 [facility] ID Date Data Source [id number] 12/26/2020 04:35:00 PM EDT [facility] sonu TSYSORDER [id number] Name Value Range Interpretation Code Description Data Eugenia rce(s) Supporting Document(s) COVID-19 NEGATIVE NEGATIVE [facility] Negative results should be treated as pr [...] are for the indentification of SARS-CoV-2 RNA. DryTDTC-CqM-9 RNA is generally detectable in respiratorysamples during the actue phase of infection. ID Date Data Source [id number] 12/26/2020 11:59:00 AM EDT [facility] l DATE OF EXAMINATION: 12/26/2020 10:44 EDT [...] rce(s) Supporting Document(s) ID Date Data Source [id number] 12/26/2020 12:19:00 PM EDT [facility] [id number] Name Value Range Interpretation Code Description Data Eugenia rce(s) Supporting Document(s) BLOOD TYPE ABO A [facility] RH TYPE POSITIVE [facility] ANTIBODY SCREEN NEGATIVE [facility] CROSSMATCH COMPATIBLE [facility] SEE TRANSFUSION RECORD IN [facility] ARE R BLAINE FOR TRANSFUSION CROSSMATCH COMPATIBLE [facility] SEE TRANSFUSION RECORD IN [facility] ARE R BLAINE FOR TRANSFUSION ID Date Data Source [id number] 12/26/2020 11:55:00 PM EDT [facility] l TSYSORDER [id number] Name Value Range Interpretation Code Description Data Eugenia rce(s) Supporting Document(s) CROSSMATCH COMPATIBLE [facility] SEE TRANSFUSION RECORD IN [facility] ARE R BLAINE FOR TRANSFUSION ID Date Data Source [id number] 12/26/2020 11:50:00 AM EDT [facility] [id number] Name Value Range Interpretation Code Description Data Eugenia rce(s) Supporting Document(s) GLUCOSE 86 mg/dL 74-106 [facility] BLOOD UREA NITROGEN 102 mg/dL 7-18 H [facility] ital CREATININE 10.65 mg/dl 0.70-1.30 H [facility] SODIUM 139 mmol/L 136-145 [facility] POTASSIUM 5.6 mmol/L 3.5-5.1 H [facility] CHLORIDE 107 mmol/L 98-107 [facility] CO2 11 mmol/L 21-32 L [facility] CALCIUM 8.4 mg/dL 8.5-10.1 L [facility] ANION GAP 21.0 mmol/L 5-12 H [facility] GLOMERULAR FILTRATION RATE 5 mL/min [facility] GFR IS CALCULATED IN mL/min/1.73m2 ABELARDO L FUNCTION: >90MILDLY DECREASED: 60-89MILDY TO MODERATELY DECREASED: 45-59 MODERATELY TO SEVERELY DECREASED: 30-44SEVERELY DECREASED: 15-29RENAL FAILURE: <15 AST 40 U/L 15-37 H [facility] ALT 47 U/L 16-63 [facility] ALKALINE PHOSPHATASE 210 U/L 46-116 [facility] TOTAL BILIRUBIN 1.0 mg/dL 0.2-1.0 [facility] TOTAL PROTEIN 4.9 g/dL 6.4-8.2 L [facility] ALBUMIN 2.6 gm/dL 3.4-5.0 L [facility] ID Date Data Source [id number] 12/26/2020 11:32:00 AM EDT [facility] TERRIYSORDER [id number] Name Value Range Interpretation Code Description Data Eugenia rce(s) Supporting Document(s) WHITE BLOOD COUNT 11.8 K/mm3 4.0-10.0 H [facility] RED BLOOD COUNT 2.43 M/mm3 4.50-6.00 L [facility] l HEMOGLOBIN 6.4 gm/dL 14.0-18.0 *L [facility] HEMATOCRIT 20.8 % 42.0-54.0 L [facility] MEAN CELL VOLUME 85.6 fl 80-96 [facility] MEAN CORPUSCULAR HEMOGLOBIN 26.3 pg 27.0-31.0 L [facility] MEAN CORPUSCULAR HGB CONC 30.8 g/dl 32.0-36.0 L [facility] RED CELL DISTRIBUTION WIDTH 19.8 % 10.0-14.5 H [facility] PLATELET COUNT 286 K/mm3 172-450 [facility] MEAN PLATELET VOLUME 13.2 fl 9.0-13.0 H [facility] pital GRAN % 80.5 % 50-80.0 H [facility] IG% 0.4 % 0.0-0.2 H [facility] LYMPH % 6.4 % 25.0-50.0 L [facility] MONO % 10.8 % 2.0-10.0 H [facility] EOS % 1.6 % 0-5.0 [facility] BASO % 0.3 % 0.0-2.0 [facility] GRAN # 9.5 K/mm3 2.0-8.00 H [facility] IG# 0.1 K/mm3 0.0-0.2 [facility] LYMPH # 0.8 K/mm3 1.0-5.0 L [facility] MONO # 1.3 K/mm3 0.10-1.20 H [facility] EOS # 0.2 K/mm3 0.0-0.5 [facility] BASO # 0.0 K/mm3 0.0-0.2 [facility] ID Date Data Source [id number] 12/26/2020 11:18:00 AM EDT [facility] [id number] Name Value Range Interpretation Code Description Data Eugenia rce(s) Supporting Document(s) POLYCHROMASIA 1+ [facility] HYPOCHROMIA 2+ [facility] POIKILOCYTOSIS 1+ [facility] ANISOCYTOSIS 2+ [facility] TARGET CELLS 1+ [facility] PLATELET ESTIMATE NORMAL NORMAL [facility] RBC MORPHOLOGY EXPECTED RESULTS:NORMAL= NORMOCHROMIC, NORMOCYTIC CELLSAbnormal Morphologic Findings > or = to 1+ are reported.Clinicopathologic correlation by the provider is required todetermine significance of finding. ID Date Data Source [id number] 12/26/2020 11:59:00 AM EDT [facility] l TSYSORDER [id number] Name Value Range Interpretation Code Description Data Eugenia rce(s) Supporting Document(s) PROTHROMBIN TIME (PATIENT) 13.6 SECONDS 9.1-11.3 H [facility] INR 1.34 0.87-1.06 H [facility] ID Date Data Source [id number] 12/26/2020 11:59:00 AM EDT [facility] TSYSORDER [id number] Name Value Range Interpretation Code Description Data Eugenia rce(s) Supporting Document(s) PARTIAL THROMBOPLASTIN TIME 31.3 SECONDS 21.3-29.7 [facility] [place] [place] ID Date Data Source [id number] 12/26/2020 11:59:00 AM EDT [facility] l TSYSORDER [id number] Name Value Range Interpretation Code Description Data Eugenia rce(s) Supporting Document(s) DDIMER 5.43 mg/LFEU 0.19-0.80 [facility] [place] [place] ID Date Data Source [id number] 12/07/2020 09:02:00 PM EDT [facility] Name Value Range Interpretation Code Description Data Eugenia rce(s) Supporting Document(s) SARS coronavirus 2 RNA [Presence] in Res piratory specimen by JAMIE with probe detection NEGATIVE [facility] This lab was ordered by [facility] a nd reported by [facility]. ID Date Data Source [id number] 11/28/2020 10:04:00 AM EDT [facility] Name Value Range Interpretation Code Description Data Eugenia rce(s) Supporting Document(s) SARS-CoV-2 (COVID 19) NEGATIVE - SARS-CoV-2 (COVID19) [facility] This lab was ordered by [facility] a nd reported by [facility]. ID Date Data Source NON EXTRUSION DIE TEMPLATE MAKER CYTOLOGY REQ FOR SERVI 11/10/2020 12:00:00 AM EDT eC W1 ([facility]) Name Value Range Interpretation Code Description Data Eugenia rce(s) Supporting Document(s) URINE eCW1 ([facility] ID Date Data Source [id number] 11/10/2020 12:00:00 AM EDT eCW1 ([facility]) Name Value Range Interpretation Code Description Data Eugenia rce(s) Supporting Document(s) UA URINALYSIS eCW1 ([facility]) ID Date Data Source [id number] 10/27/2020 08:19:00 AM EDT MEDENT ([facility]) Name Value Range Interpretation Code Description Data Eugenia rce(s) Supporting Document(s) Red Blood Count 4.02 4.70-6.10 MED[facility] ([facility]) White Blood Count 8.6 5.0-10.0 MED[facility] ([facility]) Hemoglobin 10.5 14.0-18.0 MEDENT ([facility]) Platelets 238 172-450 MED[facility] ([facility]) Hematocrit 34.2 42.0-52.0 MED[facility] ([facility]) ID Date Data Source [id number] 10/27/2020 08:19:00 AM EDT MEDENT ([facility]) Name Value Range Interpretation Code Description Data Eugenia rce(s) Supporting Document(s) Glucose 152 70-106 [facility] ([facility] Blood Urea Nitrogen 68.8 7-18 [facility] ([facility]) Creatinine 2.0 0.55-1.3 MED[facility] ([facility]) Sodium 140.3 135-145 [facility] ([facility] Glomerular filtration rate/1.73 sq M.pre dicted [Volume [...] [facility] [place]) ID Date Data Source [id number] 10/05/2020 02:38:00 PM EDT MEDENT ([facility]) Name Value Range Interpretation Code Description Data [...] ssociates of Y) ID Date Data Source [id number] 10/05/2020 02:38:00 PM EDT MED[facility] ([facility] Name Value Range Interpretation Code Description Data Eugenia rce(s) Supporting Document(s) White Blood Count 7.2 5.0-10.0 MED[facility] ([facility]) Red Blood Count 3.87 4.00-5.40 MED[facility] ([facility]) Platelets 172 172-450 [facility] ([facility] Hemoglobin 9.1 MED[facility] ([facility]) Hematocrit 32.4 MEDENT ([facility]) ID Date Data Source [id number] 09/25/2020 01:00:00 AM EDT [facility] Name Value Range Interpretation Code Description Data Eugenia rce(s) Supporting Document(s) SARS coronavirus 2 RNA [Presence] in Res piratory specimen by JAMIE with probe detection NEGATIVE [facility] This lab was ordered by [facility] a nd reported by [facility]. ID Date Data Source [id number] 09/05/2020 08:31:00 AM EDT [facility] Name Value Range Interpretation Code Description Data Eugenia rce(s) Supporting Document(s) Red Blood Count 4.00 4.70-6.10 MED[facility] ([facility]) White Blood Count 8.7 5.0-10.0 MED[facility] ([facility]) Platelets 223 172-450 [facility] ([facility] Hemoglobin 9.3 14.0-18.0 MED[facility] ([facility]) Hematocrit 30.3 42.0-52.0 MED[facility] ([facility]) ID Date Data Source [id number] 09/05/2020 08:31:00 AM EDT [facility] Name Value Range Interpretation Code Description Data Eugenia rce(s) Supporting Document(s) Albumin [Mass/volume] in Serum or Plasma 3.4 MEDENT ([facility]) Alanine aminotransferase [Enzymatic activity/volume] in Serum or Pl asma 17 MEDENT ([facility]) Calcium [Mass/volume] in Serum or Plasma 8.8 MED[facility] ([facility]) Carbon dioxide, total [Moles/volume] in Serum or Plasma 27.0 MED[facility] ([facility]) Chloride [Moles/volume] in Serum or Plasma 107.9 MED[facility] ([facility]) Alkaline phosphatase [Enzymatic activity/volume] in Serum or Plasma 2 30 MEDENT ([facility]) Potassium [Moles/volume] in Serum or Plasma 4.31 MED[facility] ([facility]) Sodium 139.5 MEDENT ([facility]) Aspartate aminotransferase [Enzymatic activity/volume] in Serum or Plasma 30 MEDENT ([facility]) Protein [Mass/volume] in Serum or Plasma 5.5 MED[facility] ([facility]) Glucose 128 70-106 MED[facility] ([facility]) Urea nitrogen [Mass/volume] in Serum or Plasma 43.4 MED[facility] ([facility]) Creatinine For GFR 1.8 [facility] ([facility] ID Date Data Source [id number] 08/05/2020 11:15:00 AM EDT [facility] Name Value Range Interpretation Code Description Data Eugenia rce(s) Supporting Document(s) SARS-CoV-2 (COVID-19) RNA [Presence] in Respiratory specimen by JAMIE with probe detection Not Detected [facility] This lab was ordered by [facility] and reported by [employer] ID Date Data Source [id number] 05/05/2020 02:49:00 PM EST [facility] Name Value Range Interpretation Code Description Data Eugenia rce(s) Supporting Document(s) SARS coronavirus 2 RNA [Presence] in Res piratory specimen by JAMIE with probe detection NEGATIVE [facility] This lab was ordered by [facility] a nd reported by [facility]. ID Date Data Source [id number] 05/05/2020 12:37:00 PM EST MEDENT ([facility]) Name Value Range Interpretation Code Description Data Eugenia rce(s) Supporting Document(s) Microscopic observation [Identifier] in Unspecified specimen by Non- gynecological cytology method Laboratory test result MEDENT ([facility]) SPECIMEN: Peritoneal fluid 1200 ml cloudy yellow SPECIMEN ADEQUACY: Satisfactory for evaluation CATEGORIZATION: No Malignancy identified DESCRIPTIONS: Specimen consists of mesothelial cells in a background of blood elements. COMMENTS: 05/06/2020 - 929 Signed KEYSHA JEROME (ASCP) 05/06/2020 0930 (Prelim) Signed DALTON CHAU MD 05/09/2020 0933 ID Date Data Source [id number] 05/05/2020 11:50:00 AM EST MEDENT ([facility]) Name Value Range Interpretation Code Description Data Eugenia rce(s) Supporting Document(s) Laboratory test finding (navigational concept) 0.7 g/dL MEDENT ([facility]) Laboratory test finding (navigational concept) Laboratory test result MED[facility] ([facility]) ID Date Data Source [id number] 05/05/2020 11:50:00 AM EST MEDENT ([facility]) Name Value Range Interpretation Code Description Data Eugenia rce(s) Supporting Document(s) Laboratory test finding (navigational concept) 146 mg/dL MEDENT ([facility]) Laboratory test finding (navigational concept) Laboratory test result MED[facility] ([facility]) ID Date Data Source [id number] 05/05/2020 11:50:00 AM EST MED[facility] ([facility]) Name Value Range Interpretation Code Description Data Eugenia rce(s) Supporting Document(s) Laboratory test finding (navigational concept) Laboratory test result MEDENT ([facility]) If aerobic or anaerobic growth is detected within the next 7-21 days, an addendum will follow. . . FULL REPORT IN LAB NOTES (eCW and Medent). NO GROWTH AEROBICALLY Gram Stain Laboratory test result MEDENT ([facility]) MANY WBCS NO ORGANISMS SEEN ID Date Data Source [id number] 05/05/2020 11:03:00 AM EST MED[facility] ([facility]) Name Value Range Interpretation Code Description Data [...] 10 150-450 [facility] ([facility]) Wallace % 8.0 % 2.0-8.0 MEDENT ([facility] [...] 0.0-0.5 [facility] ([facility] Wallace # 1.1 10 0.0-0.8 [facility] ([facility] Baso # 0.0 10 0.0-0.2 [facility] ([facility] ID Date Data Source [id number] 05/05/2020 11:03:00 AM EST MED[facility] ([facility]) Name Value Range Interpretation Code Description Data Eugenia rce(s) Supporting Document(s) Inr 1.19 MED[facility] ([facility]) THERAPUTIC HUMAN INR VALUES INDICATIONS NORMAL RANGES PROPHYLAXIS/TREATMENT OF: VENOUS THROMBOSIS 2.0-3.0 PULMONARY EMBOLISM 2.0-3.0 PREVENTION OF SYSTEMIC EMBOLISM FROM: TISSUE HEART VALVES 2.0-3.0 ACUTE MYOCARDIAL INFARCTION 2.0-3.0 VALVULAR HEART DISEASE 2.0-3.0 ATRIAL FIBRILLATION 2.0-3.0 MECHANICAL VALVES(HIGH RISK) 2.5-3.5 RECURRENT MYOCARDIAL INFARCTION 2.5-3.5 Prothrombin Time 15.4 s 12.5-14.3 MED[facility] ([facility]) ID Date Data Source [id number] 05/05/2020 11:03:00 AM EST MED[facility] ([facility]) Name Value Range Interpretation Code Description Data Eugenia rce(s) Supporting Document(s) Glucose, Fasting 112 mg/dL 70-100 MED[facility] ([facility]) Blood Urea Nitrogen 55 mg/dL 7-18 [facility] Glomerular Filtration Rate 34.3 MED ENT ([facility]) <content>Units are mL/min/1.73 m2</content>
<content></content>
<content>Chronic Kidney Disease Staging per NKF:</content>
<content></content>
<content>Stage I & II GFR >=60 Normal to Mildly Decreased</content>
<content>Stage III GFR 30- 59 Moderately Decreased</content>
<content>Stage IV GFR 15-29 Severely Decreased</content>
<content>Stage V GFR <15 Very Little GFR Left</content>
<content>ESRD GFR <15 on DEXTRINE MIXER</content>
<content></content> Creatinine For GFR 2.03 mg/dL 0.70-1.30 MEDENT ([facility]) Potassium Serum 4.3 meq/L 3.5-5.1 MED[facility] ([facility]) Sodium Level 141 meq/L 136-145 MED[facility] ([facility]) Carbon Dioxide Level 22 meq/L 21-32 MED[facility] ([facility]) Chloride Level 109 meq/L 98-107 MEDENT ([facility]) Calcium Level 8.4 mg/dL 8.8-10.2 MEDENT ([facility]) Anion Gap 10 meq/L 8-16 [facility] ID Date Data Source [id number] 05/05/2020 09:59:00 AM EST MED[facility] ([facility]) Name Value Range Interpretation Code Description Data Eugenia rce(s) Supporting Document(s) Surgical pathology study Laboratory test result MEDENT ([facility]) FINAL DIAGNOSIS Ascites fluid, cell block: No malignant cells identified. Reactive mesothelial cells and predominantly lymphocytic background. 05/06/2020850 CLINICAL DIAGNOSIS Ascites fluid 05/06/2020727 GROSS DIAGNOSIS Received 1,200 ml of yellow ascites fluid for cell block. -SV 05/06/2020727 Signed DALTON CHAU MD 05/06/2020850 ID Date Data Source [id number] 04/13/2020 11:36:00 AM EST [facility] Name Value Range Interpretation Code Description Data Eugenia rce(s) Supporting Document(s) Blood Urea Nitrogen 55 mg/dL 7-18 MED[facility] ([facility]) Glucose, Fasting 142 mg/dL 70-100 MED[facility] ([facility]) Glomerular Filtration Rate 34.7 MED ENT ([facility]) <content>Units are mL/min/1.73 m2</content>
<content></content>
<content>Chronic Kidney Disease Staging per NKF:</content>
<content></content>
<content>Stage I & II GFR >=60 Normal to Mildly Decreased</content>
<content>Stage III GFR 30- 59 Moderately Decreased</content>
<content>Stage IV GFR 15-29 Severely Decreased</content>
<content>Stage V GFR <15 Very Little GFR Left</content>
<content>ESRD GFR <15 on DEXTRINE MIXER</content>
<content></content> Creatinine For GFR 2.01 mg/dL 0.70-1.30 MEDENT ([facility]) Chloride Level 107 meq/L 98-107 MED[facility] ([facility]) Potassium Serum 4.4 meq/L 3.5-5.1 MED[facility] ([facility]) Sodium Level 141 meq/L 136-145 MED[facility] ([facility]) Carbon Dioxide Level 25 meq/L 21-32 MEDENT ([facility]) Anion Gap 9 meq/L 8-16 [facility] [place] Calcium Level 8.8 mg/dL 8.8-10.2 MEDENT ([facility]) ID Date Data Source [id number] 12/24/2019 01:38:00 PM EDT [facility] ([facility] Name Value Range Interpretation Code Description Data Eugenia rce(s) Supporting Document(s) Laboratory test finding (navigational concept) Laboratory test result MEDENT ([facility]) ID Date Data Source [id number] 12/24/2019 01:38:00 PM EDT [facility] ([facility] Name Value Range Interpretation Code Description Data Eugenia rce(s) Supporting Document(s) Glucose 84 mg/dL 65-99 MEDENT ([facility]) eGFR If NonAfricn Am 39 mL/min/1.73 MEDE NT ([facility]) Urea nitrogen [Mass/volume] in Serum or Plasma 57 mg/dL 8-27 MEDENT ([facility]) Creatinine 1.68 mg/dL 0.76-1.27 MED[facility] ([facility]) Urea nitrogen/Creatinine [Mass Ratio] in Serum or Plasma 34 1 0-24 MED[facility] ([facility]) eGFR If Africn Am 46 mL/min/1.73 MED[facility] ([facility]) Potassium [Moles/volume] in Serum or Plasma 4.5 mmol/L 3.5-5.2 MEDENT ([facility]) Sodium 141 mmol/L 134-144 MEDENT ([facility]) Chloride [Moles/volume] in Serum or Plasma 104 mmol/L 96-106 MEDENT ([facility]) Calcium [Mass/volume] in Serum or Plasma 9.3 mg/dL 8.6-10.2 MEDENT ([facility]) Carbon dioxide, total [Moles/volume] in Serum or Plasma 24 mmol/L 20 -29 MEDENT ([facility]) ID Date Data Source [id number] 12/25/2019 08:06:00 AM EDT [facility] Name Value [...] mg/dL 8.6-10.2 [facility] ID Date Data Source [id number] 12/14/2019 08:49:00 AM EDT MEDENT ([facility], ) Name Value Range Interpretation Code Description Data Eugenia rce(s) Supporting Document(s) FVC-Pre 3.78 L MEDENT ([facility], ) FVC-Pred 4.97 L MEDENT ([facility]) PDFReport Laboratory test result MEDENT ([facility], ) FVC-%Pred-Pre 76 L MEDENT ([facility], ) FVC-LLN 3.92 L MEDENT ([facility]) Fev1-Pred 3.63 L MEDENT ([facility], ) Fev1-Pre 2.58 L MEDENT ([facility], ) Fev1-%Pred-Pre 71 L MEDENT ([facility], ) Fev6-Pred 4.69 L MEDENT ([facility]) Fev1-LLN 2.75 L MEDENT ([facility], ) Fev6-Pre 3.77 L MEDENT ([facility], ) Fev6-%Pred-Pre 80 L MEDENT ([facility], ) Fev6-LLN 3.68 L MEDENT ([facility]) Hyr1jvc-Pjy 68 % MEDENT ([facility]) Kvj1kak-Dqeg 73 % MEDENT ([facility]) Hda6rxk-%Pred-Pre 93 % MEDENT ([facility]) Ktc3ths-Tofw 94 % MED[facility] ([facility]) Wwx5wnw-XUX 63 % MED[facility] ([facility]) Nux4wln-Qvu 100 % MED[facility] ([facility]) Ucd7ubz-%Pred-Pre 105 % MEDENT ([facility]) FEFMax-Pred 8.87 L/E/sec MEDENT ([facility]) FEFMax-%Pred-Pre 89 L/E/sec MEDENT ([facility]) FEFMax-Pre 7.93 L/E/sec MED[facility] ([facility]) FEFMax-LLN 6.27 L/E/sec MED[facility] ([facility]) [id number] 1.49 L/E/sec MEDENT ([facility]) Ive8188-Apjt 2.66 L/E/sec MEDENT ([facility]) Gxx2959-%Pred-Pre 55 L/E/sec MEDENT ([facility]) ExpTime-Pre 6.32 sec MEDENT ([facility]) Sgv7964-ELQ 0.87 L/E/sec MEDENT ([facility]) Vfh7vkm3-Nvph 77 % MED[facility] ([facility]) Cxc5vqz5-IVN 68 % MED[facility] ([facility]) Hva4oll4-%Pred-Pre 88 % MEDENT ([facility]) Lrp4hcv9-Wiy 68 % MED[facility] ([facility]) Procedure Social History Code Duration Value Status Description Data Source(s ) Smoking 12/13/2020 12:00:00 AM EDT Former Smoker completed Former Smoker eCW1 ([facility]) Smoking 12/13/2020 12:00:00 AM EDT Former Smoker completed Former Smoker eCW1 ([facility]) Smoking 12/13/2020 12:00:00 AM EDT Former Smoker completed Former Smoker eCW1 ([facility]) Smoking 12/13/2020 12:00:00 AM EDT Former Smoker completed Former Smoker eCW1 ([facility]) Smoking 11/10/2020 12:00:00 AM EDT Former Smoker completed Former Smoker eCW1 ([facility]) Smoking 10/28/2020 10:17:59 PM EDT Ex-smoker (finding) [facility] ed Ex-smoker (finding) [place] (Myranda Reagan [facility]) Smoking 10/12/2020 12:00:00 AM EDT Patient is a former smoker completed Patient is a former smoker MEDENT ([facility]) Smoking 10/10/2020 12:00:00 AM EDT Former Smoker completed Former Smoker eCW1 ([facility]) Smoking 10/10/2020 12:00:00 AM EDT Former Smoker completed Former Smoker eCW1 ([facility]) Smoking 10/10/2020 12:00:00 AM EDT Former Smoker completed Former Smoker eCW1 ([facility]) Smoking 10/10/2020 12:00:00 AM EDT Former Smoker completed Former Smoker eCW1 ([facility]) Smoking 10/10/2020 12:00:00 AM EDT Former Smoker completed Former Smoker eCW1 ([facility]) Smoking 09/13/2020 12:00:00 AM EDT Former Smoker completed Former Smoker eCW1 ([facility]) Smoking 09/13/2020 12:00:00 AM EDT Former Smoker completed Former Smoker eCW1 ([facility]) Smoking 07/27/2020 03:27:06 PM EDT Ex-smoker (finding) complet ed Ex-smoker (finding) IVONNE (Myranda Reagan [facility]) Smoking 06/29/2020 12:00:00 AM EDT Former Smoker completed Former Smoker eCW1 ([facility]) Smoking 06/29/2020 12:00:00 AM EDT Former Smoker completed Former Smoker eCW1 ([facility]) Smoking 05/19/2020 12:00:00 AM EDT Former Smoker completed Former Smoker eCW1 ([facility]) Smoking 05/19/2020 12:00:00 AM EDT Former Smoker completed Former Smoker eCW1 ([facility]) Smoking 05/19/2020 12:00:00 AM EDT Former Smoker completed Former Smoker eCW1 ([facility]) Smoking 05/19/2020 12:00:00 AM EDT Former Smoker completed Former Smoker eCW1 ([facility]) Smoking 05/19/2020 12:00:00 AM EDT Former Smoker completed Former Smoker eCW1 ([facility]) Smoking 05/19/2020 12:00:00 AM EDT Former Smoker completed Former Smoker eCW1 ([facility]) Smoking 03/17/2020 12:00:00 AM EST Former Smoker completed Former Smoker eCW1 ([facility]) Smoking 03/17/2020 12:00:00 AM EST Former Smoker completed Former Smoker eCW1 ([facility]) Smoking 12/14/2019 12:00:00 AM EDT Patient has never smoked co mpleted Patient has never smoked MEDENT ([facility], ) Vital Signs ID Date Data Source UNK Name Value Range Interpretation Code Description Data Source(s) Body weight 236.0 [lb_av] 236.0 [lb_av] eCW1 ([facility]) Body weight 107.05 kg 107.05 kg eCW1 ([facility] Body height 72 [in_i] 72 [in_i] eCW1 ([facility]) Body mass index (BMI) [Ratio] 32.00 kg/m2 32.00 kg/m2 eCW1 ([facility]) Heart rate 89 /min 89 /min eCW1 ([facility]) Respiratory rate 18 /min 18 /min eCW1 ([facility]) Body temperature 97.1 [degF] 97.1 [degF] eCW1 ( [facility]) Systolic blood pressure 105 mm[Hg] 105 mm[Hg] e CW1 ([facility]) Diastolic blood pressure 43 mm[Hg] 43 mm[Hg] eCW1 ([facility]) Body weight 229 [lb_av] 229 [lb_av] eCW1 ([facility]) Body weight 103.87 kg 103.87 kg eCW1 ([facility]) Body height 72 [in_i] 72 [in_i] eCW1 ([facility]) Body mass index (BMI) [Ratio] 31.05 kg/m2 31.05 kg/m2 eCW1 ([facility]) Heart rate 81 /min 81 /min eCW1 ([facility]) Respiratory rate 17 /min 17 /min eCW1 ([facility]) Body temperature 97.6 [degF] 97.6 [degF] eCW1 ( [facility]) Systolic blood pressure 118 mm[Hg] 118 mm[Hg] e CW1 ([facility]) Diastolic blood pressure 62 mm[Hg] 62 mm[Hg] eCW1 ([facility]) Body weight 234.00 [lb_av] 234.00 [lb_av] CHEN Roach ([facility]) Body height 74 [in_i] 74 [in_i] [facility] 6'2" Body mass index (BMI) [Ratio] 30.0 kg/m2 30.0 k g/m2 CARLOS ([facility]) Heart rate 72 /min 72 /min MEDENT ([facility]) Irregular Respiratory rate 16 /min 16 /min MEDENT ( [facility]) Systolic blood pressure 102 mm[Hg] 102 mm[Hg] M EDENT ([facility]) sitting, regular cuff Diastolic blood pressure 50 mm[Hg] 50 mm[Hg] MEDENT ([facility]) sitting, regular cuff Body weight 238.6 [lb_av] 238.6 [lb_av] eCW1 ([facility]) Body height 72 [in_i] 72 [in_i] eCW1 ([facility]) Body mass index (BMI) [Ratio] 32.36 kg/m2 32.36 kg/m2 eCW1 ([facility]) Heart rate 62 /min 62 /min eCW1 ([facility]) Respiratory rate 18 /min 18 /min eCW1 ([facility]) Body temperature 97.8 [degF] 97.8 [degF] eCW1 ( [facility]) Systolic blood pressure 103 mm[Hg] 103 mm[Hg] e CW1 ([facility]) Diastolic blood pressure 51 mm[Hg] 51 mm[Hg] eCW1 ([facility]) Body weight 243.6 [lb_av] 243.6 [lb_av] eCW1 ([facility]) Body height 72 [in_i] 72 [in_i] eCW1 ([facility]) Respiratory rate 18 /min 18 /min eCW1 ([facility]) Body temperature 97.1 [degF] 97.1 [degF] eCW1 ( [facility]) Systolic blood pressure 100 mm[Hg] 100 mm[Hg] e CW1 ([facility]) Diastolic blood pressure 55 mm[Hg] 55 mm[Hg] eCW1 ([facility] [facility] Body mass index (BMI) [Ratio] 33.03 kg/m2 33.03 kg/m2 eCW1 ([facility]) Heart rate 84 /min 84 /min eCW1 ([facility]) Body height 74 [in_i] 74 [in_i] [...] [in_i] 74 [in_i] MEDENT ([facility]) 6'2" Body weight 244.00 [lb_av] 244.00 [lb_av] MEDEN T ([facility]) Body mass index (BMI) [Ratio] 31.3 kg/m2 31.3 k g/m2 MEDENT ([facility]) Heart rate 76 /min 76 /min MEDENT ([facility]) 106Irregular Respiratory rate 16 /min 16 /min MEDENT ( [facility]) Systolic blood pressure 106 mm[Hg] 106 mm[Hg] M EDENT ([facility]) sitting, regular cuff Diastolic blood pressure 60 mm[Hg] 60 mm[Hg] MEDENT ([facility]) sitting, regular cuff Systolic blood pressure 110 mm[Hg] 110 mm[Hg] e CW1 ([facility]) Diastolic blood pressure 64 mm[Hg] 64 mm[Hg] eCW1 ([facility]) Body weight 240 [lb_av] 240 [lb_av] eCW1 ([facility]) Body height 72 [in_i] 72 [in_i] eCW1 [facility] Body mass index (BMI) [Ratio] 32.55 kg/m2 32.55 kg/m2 eCW1 ([facility]) Body height 74 [in_i] 74 [in_i] MEDENT ([facility] 6'2" Diastolic blood pressure 60 mm[Hg] 60 mm[Hg] MEDENT ([facility]) sitting, regular cuff Systolic blood pressure 106 mm[Hg] 106 mm[Hg] M EDENT ([facility]) sitting Diastolic blood pressure 60 mm[Hg] 60 mm[Hg] MEDENT ([facility]) sitting Body mass index (BMI) [Ratio] 32.4 kg/m2 32.4 k g/m2 MEDENT ([facility]) Heart rate 64 /min 64 /min MEDENT ([facility] Irregular Respiratory rate 16 /min 16 /min MEDENT ( [facility]) Systolic blood pressure 110 mm[Hg] 110 mm[Hg] M EDENT ([facility]) sitting, regular cuff Body weight 252.00 [lb_av] 252.00 [lb_av] MEDEN T ([facility]) Diastolic blood pressure 52 mm[Hg] 52 mm[Hg] MEDENT ([facility]) sitting, regular cuff Systolic blood pressure 114 mm[Hg] 114 mm[Hg] M EDENT ([facility]) sitting, regular cuff Body weight 255.00 [lb_av] 255.00 [lb_av] MEDEN T ([facility]) Body height 74 [in_i] 74 [in_i] [facility] 6'2" Body mass index (BMI) [Ratio] 32.7 kg/m2 32.7 k g/m2 MEDENT ([facility]) Heart rate 68 /min 68 /min MEDENT ([facility]) Irregular Respiratory rate 16 /min 16 /min MEDENT ( [facility]) Body weight 254 [lb_av] 254 [lb_av] eCW1 ([facility]) Body height 72 [in_i] 72 [in_i] eCW1 ([facility]) Body mass index (BMI) [Ratio] 34.44 kg/m2 34.44 kg/m2 eCW1 ([facility]) Heart rate 89 /min 89 /min eCW1 ([facility]) Respiratory rate 20 /min 20 /min eCW1 ([facility]) Body temperature 96.6 [degF] 96.6 [degF] eCW1 ( [facility]) Systolic blood pressure 96 mm[Hg] 96 mm[Hg] e CW1 ([facility]) Diastolic blood pressure 43 mm[Hg] 43 mm[Hg] eCW1 ([facility]) Body height 74 [in_i] 74 [in_i] MEDENT ([facility]) 6'2" Respiratory rate 16 /min 16 /min MEDENT ( [facility]) Systolic blood pressure 126 mm[Hg] 126 mm[Hg] M EDENT ([facility]) sitting, large cuff Diastolic blood pressure 66 mm[Hg] 66 mm[Hg] MEDENT ([facility]) sitting, large cuff Body weight 241.00 [lb_av] 241.00 [lb_av] MEDEN T ([facility]) Body mass index (BMI) [Ratio] 30.9 kg/m2 30.9 k g/m2 MEDENT ([facility]) Heart rate 68 /min 68 /min MEDENT ([facility]) Irregular Body weight 247.00 [lb_av] 247.00 [lb_av] MEDEN T ([facility], ) Body mass index (BMI) [Ratio] 31.7 kg/m2 31.7 k g/m2 MEDENT ([facility], ) Systolic blood pressure 104 mm[Hg] 104 mm[Hg] M EDENT ([facility], ) [place] body weight 190 [lb_av] 190 [lb_av] MEDEN T ([facility]) Diastolic blood pressure 62 mm[Hg] 62 mm[Hg] MEDENT ([facility], ) Body weight 112.039 kg 112.039 kg MEDENT ([facility], ) Heart [facility] 60 /min 60 /min [facility], ) Oxygen saturation in Arterial blood by Pulse oximetry 97 % 97 % [facility], ) Body height 74 [in_i] 74 [in_i] MEDENT ([facility]) 6'2" Patient Treatment Plan of Care Planned Activity Planned Date Details Description Data Source (s) Doxycycline Monohydrate 100 MG Oral Capsule 11/04/2020 12:00:00 AM EDT eCW1 ([facility]) valacyclovir 1000 MG Oral Tablet [Valtrex] 06/29/2020 12:00:00 AM E DT eCW1 ([facility]) valacyclovir 1000 MG Oral Tablet [Valtrex] 06/29/2020 12:00:00 AM E DT eCW1 ([facility]) valacyclovir 1000 MG Oral Tablet [Valtrex] 06/29/2020 12:00:00 AM E DT eCW1 ([facility]) valacyclovir 1000 MG Oral Tablet [Valtrex] 06/29/2020 12:00:00 AM E DT eCW1 ([facility]) valacyclovir 1000 MG Oral Tablet [Valtrex] 06/29/2020 12:00:00 AM E DT eCW1 ([facility]) valacyclovir 1000 MG Oral Tablet [Valtrex] 06/29/2020 12:00:00 AM E DT eCW1 ([facility]) valacyclovir 1000 MG Oral Tablet [Valtrex] 06/29/2020 12:00:00 AM E DT eCW1 ([facility]) pantoprazole 40 MG Delayed Release Oral Tablet 06/22/2020 12:00:00 AM EDT eCW1 ([facility]) pantoprazole 40 MG Delayed Release Oral Tablet 06/22/2020 12:00:00 AM EDT eCW1 ([facility]) Pen [place] 32G X 4 MM 05/02/2020 12:00:00 AM EST eCW1 ([facility]) Test Strips - 03/17/2020 12:00:00 AM EST eCW1 ([facility]) Test Strips - 03/17/2020 12:00:00 AM EST eCW1 ([facility]) Test Strips - 03/17/2020 12:00:00 AM EST eCW1 ([facility]) Test Strips - 03/17/2020 12:00:00 AM EST eCW1 ([facility]) Glucometer 03/17/2020 12:00:00 AM EST e CW1 ([facility]) Test Strips - 03/17/2020 12:00:00 AM EST eCW1 ([facility]) Glucometer 03/17/2020 12:00:00 AM EST e CW1 ([facility]) Test Strips - 03/17/2020 12:00:00 AM EST eCW1 ([facility]) Colesevelam hydrochloride 625 MG Oral Tablet 03/08/2020 12:00:00 AM EST eCW1 ([facility]) Colesevelam hydrochloride 625 MG Oral Tablet 03/08/2020 12:00:00 AM EST eCW1 ([facility])
[2020-12-27 11:10] LABS: BASO % 0.2 % (0.0-1.0); EOS % 0.1 % (0.0-3.0); HEMATOCRIT 30.6 % (42.0-52.0); HEMOGLOBIN 9.1 g/dl (13.5-17.5); LYMPH # 0.5 10^3/uL (1.5-5.0); LYMPH % 3.3 % (24.0-44.0); MEAN CORPUSCULAR HEMOGLOBIN 26.8 pg (27.0-33.0); MEAN CORPUSCULAR HGB CONC 29.7 g/dl (32.0-36.5); MEAN CORPUSCULAR VOLUME 90.3 fl (80.0-96.0); MONO # 1.3 10^3/uL (0.0-0.8); NEUTROPHILS # 14.1 10^3/uL (1.5-8.5); NEUTROPHILS % 87.1 % (36.0-66.0); PLATELET COUNT, AUTOMATED 299 10^3/uL (150-450); RED BLOOD COUNT 3.39 10^6/uL (4.30-6.10); WHITE BLOOD COUNT 16.2 10^3/uL (4.0-10.0)
[2020-12-27 11:25] LABS: INR 1.53; PROTHROMBIN TIME 18.8 SECONDS (12.7-14.5)
[2020-12-27] MEDS ORDERED: CEFTAROLINE FOSAMIL 600 MG in D5W MINI-BAG PLUS 50 ML IV SCH (11:40)
[2020-12-27] MEDS ORDERED: SODIUM CHLORIDE 0.9% 1000ML IV PRN (12:30)
[2020-12-27 12:34] LABS: ALBUMIN 2.4 GM/DL (3.2-5.2); BILIRUBIN,TOTAL 1.9 MG/DL (0.2-1.0); CALCIUM LEVEL 8.8 MG/DL (8.8-10.2); CREATININE FOR GFR 10.9 MG/DL (0.70-1.30); GLOMERULAR FILTRATION RATE 4.9 (>42); PHOSPHORUS LEVEL 13.5 MG/DL (2.5-4.9); TOTAL PROTEIN 4.8 GM/DL (6.4-8.2)
[2020-12-27] MEDS ORDERED: DARBEPOETIN 100 MCG/0.5 ML *DIALYSIS* SYRINGE (J0882) IV SCH (12:35)
[2020-12-27] MEDS ORDERED: CIPR500T39 PO (13:35)
[2020-12-27] MEDS ORDERED: MIDO10TA PO (13:35)
[2020-12-27] MEDS ORDERED: INSUDET SC (13:35)
[2020-12-27] MEDS ORDERED: HOME MED LIST COMPLETE! XX SCH (13:40)
--- NOTE | 2020-12-27 14:51 | HPEPDOC ---
[facility] Medical History & Physical Date of Admission Dec 27, 2020 Date of Service: Dec 27, 2020 Attending Physician: BHAVESH MORALES MD History and Physical CHIEF COMPLAINT: Leg pain HISTORY OF PRESENT ILLNESS: Mr. Leland Bassett is a 75 yo male who presents 12/27/2020 with a 3 day history of worsening leg pain and weakness. Pt states that over the weekend his "leg came out from beneath him" and he was not able to stand up. Pt states both his legs feel weak and painful with the right leg is worse than the left. Pt states the pain is localized on the back side of the knee up to the calf. Pt describes the pain as sharp and rated 10/10. Pt states his symptoms progressed overtime since his last admission to the hospital 11/28/2020, worsens when he gets hemodialyses (gets 3x week but last dialysis was 1.5 weeks ago since he could not get up out of bed), and got to a point where he could not get out of bed and called the ambulance. Pt denies any muscle overuse or trauma, fevers or shaking chills, palpitations, v/d. Pt states he is SOB and nausea from his dialysis at baseline and has not had a bowel moment in a few days. Patient was brought by EMS to [facility] and eventually transferred to [facility] for HD. Workup at [facility] showed negative LE venous doppler with a hyperkalemia of 6.3, anemia of Hbg 6.9 with varying reports stating pt received two or three units of blood before being transferred from [facility] to [facility]. PAST MEDICAL HISTORY: -GALAVIZ with ascites, hx SBP in september 2020, and esophageal varices s/p banding -HFpEF -Afib on Eliquis -ESRD -Hypothyroidism -Chronic hypotension -Gout -IDDMT2 -GERD -AAA -CAD w hx NM 3x - denies any stents or bypass -Right testicular cancer s/p right orchiectomy -COPD -PINKY PAST SURGICAL HISTORY: -Esophageal varices with banding -Right testicular cancer with right orchiectomy -Cholecystectomy -Right knee arthroplasty -Left knee surgery -Cataract removal SOCIAL HISTORY: -Tobacco use: Quit 12 years ago. Smoked 3 PPD for 50 years. -ETOH: Quit 1997. -Illicit drug use: Denies FAMILY HISTORY: -Brother with DM ALLERGIES: Please see below. REVIEW OF SYSTEMS: CONSTITUTIONAL: Denies fevers and chills. HEENT: Denies headaches, dizziness, sore throat. CARDIOVASCULAR: Denies palpitations or chest pain. RESPIRATORY: Admits to SOB. Denies dyspnea or coughing. GASTROINTESTINAL: Admits to nausea and constipation. Denies vomiting or abdominal pain. MUSCULOSKELETAL: Admits to LE weakness. Denies muscle aches or pains. NEUROLOGICAL: Admits to neuropathy. HOME MEDICATIONS: Please see below. PHYSICAL EXAMINATION: VITAL SIGNS: Temperature 96, pulse 67, respiratory rate 18, blood pressure 97/51, pulse oximetry 93% on 2L NC. GENERAL APPEARANCE: Pleasant elderly male who is in laying on his right side wearing a NC. Pt in NAD but is somewhat uncomfortable when moving. A&O x3. HEENT: Head AC and NC. Mucus membranes dry and wears upper dentures. No lymphadenopathy. CARDIOVASCULAR: RRR. S1S2. no m/r/g. LUNGS: Expiratory wheezing on right lower lung field. Diminished breath sounds b/l. No crackles or rhonchi. ABDOMEN: Soft and non-tender. Rashes noted below. MUSCULOSKELETAL: Moves all extremities, diminished ROM with LE 3+. Legs elevated. EXTREMITIES: Pedal pulses 1+. Right 2+ edema from ankles up to below knee. Red bunion on left metatarsal of great toe on foot. Venous stasis up to mid-calf bilaterally. SKIN: Non-blanching, non-scaly, well-demarcated circular rash with clearer skin in the middle on his lower-mid abdomen extending to his right mid-thigh on the anterior-medial surface. Diffuse, warm, red, circumferential erythematous rash on his right leg that extends from his ankle to just below the knee and boarders were demarcated and dated with a pen marker. PSYCHIATRIC: Mood and affect appropriate. LABORATORY DATA: See below. IMAGING: None MICROBIOLOGY: Please see below. ASSESSMENT: Mr. Ha is a 75 y/o male with a PMH significant for ESRD, cirrhosis, COPD, IDDMT2, HFpEF, Afib on Eliquis, CAD, who presents with a 3 day history of worsening LE weakness and leg pain bilaterally was found to be hyperkalemic, anemic, and two separate rashes on the abdomen and right leg. PLAN: # Right leg swelling with pain and rash 2/2 cellulitis vs DVT -blood cultures x2 ordered -Start ceftaroline IV -US doppler/duplex from [facility] says RLE negative for DVT -c/t leg elevation, fall precautions # Sepsis 2/2 cellulitis vs other source - Meets 3/4 SIRS criteria on admission with hypothermia, leukocytosis, and hypoxia - suspect RLE cellulitis as source, on IV abx as above - blood cultures x2 pending - warming blanket for hypothermia - supplemental O2 for hypoxia. Check CXR. - MRSA screen pending - hold home torsemide for now # Hyperkalemia -s/p Kayexalate at [facility] per report -Recheck electrolytes -telemetry monitoring -plan for dialysis later today # Anemia -acute vs chronic, unclear, no active bleeding noted -per report Hg as low as 6.8 at [facility] -s/p 2-3 units pRBC in [facility] (unclear based on report) -Repeat CBC #ESRD on HD - Pt has missed multiple HD sessions - Nephrology consulted, appreciate recommendations - HD sessions per nephrology - R sided dialysis catheter in place without signs of surround infection - continue home allopurinol, vitamin C and D, Welchol # Abdominal and R inner thigh skin rash likely 2/2 tinea corpus -failed topical treatment previously - will give fluconazole 200mg daily after HD, only on HD treatment days #Chronic hypotension - continue home midodrine #GALAVIZ liver cirrhosis - with decompensations of ascites, hx SBP in september 2020, and esophageal varices s/p banding - requires paracentesis every 2 weeks - hold home cipro (SBP prophylaxis) while on IV abx - avoid beta sachin due to hypotension and relatively low HR # IDDMT2 -c/t home levemir 10 units BID -ISS with FSBS ACHS. Hypoglycemic protocol. -consistent carb diet # Chronic afib on Eliquis -rate controlled without medication -c/t Eliquis #GERD - continue home PPI #Hypothyroidism - continue home levothyroxine - recheck TSH DVT Ppx: Pt on home Eliquis Diet: Consistent carbs, 2g Na restriction, 1800mL fluid restriction Code: Full code Disposition: admitted inpatient to PCU pending clinical improvement Vital Signs Vital Signs Date Time Temp Pulse Resp B/P (MAP) Pulse Ox O2 Delivery O2 Flow Rate FiO2 12/27/20 09:50 96.0 67 18 97/51 (66) 93 Nasal Cannula 2.0 Laboratory Data Labs 24H Laboratory Tests 2 12/27/20 10:54: CBC/BMP Microbiology Microbiology 12/27/20 Blood Culture, Received Pending Home Medications Scheduled Allopurinol (Allopurinol) 100 Mg Tablet, 100 MG PO DAILY Apixaban (Eliquis) 2.5 Mg Tablet, 2.5 MG PO BID Ascorbic Acid (Vitamin C) 500 Mg Tablet, 1,000 MG PO DAILY TAKES AT NOON Cholecalciferol (Vitamin D3) (Vitamin D3) 1,000 Unit Tablet, 2,000 UNITS PO DAILY TAKES AT NOON Ciprofloxacin HCl (Ciprofloxacin HCl) 500 Mg Tablet, 500 MG PO DAILY Colesevelam Hydrochloride (Welchol) 625 Mg Tablet, 3,750 MG PO QHS Glucosamine/Chondroitin/C/Clay (Glucosamine-Chondroitin Capsul) 1 Cap Cap, 1 CAP PO BID Insulin Aspart (Novolog Flexpen) 100 Unit/1 Ml Insuln.pen, 1 DOSE SC AC PER SLIDING SCALE Insulin Detemir (Levemir) 100 Unit/1 Ml Vial, 10 UNITS SC BID Levothyroxine Sodium (Levothyroxine Sodium) 175 Mcg Tab, 175 MCG PO QAM Midodrine HCl (Midodrine HCl) 10 Mg Tablet, 10 MG PO TID 0800/1200/1600 Multivitamin (Multivitamins) 1 Each Tablet, 1 TAB PO DAILY TAKES AT NOON Pantoprazole Sodium (Pantoprazole Sodium) 40 Mg Tablet.dr, 40 MG PO DAILY Torsemide (Torsemide) 100 Mg Tablet, 50 MG PO BID Vit A/Vit C/Vit E/Zinc/Copper (Preservision Areds Softgel) 1 Each Capsule, 1 CAP PO BID Allergies Coded Allergies: bumetanide (Verified Allergy, Unknown, UNKNOWN, 09/24/20) valsartan (Verified Allergy, Unknown, UNKNOWN REACTION, 09/24/20) Quinolones (Verified Adverse Reaction, Mild, GI UPSET, 09/24/20) atorvastatin (Verified Adverse Reaction, Mild, GI UPSET, 09/24/20) ciprofloxacin (Verified Adverse Reaction, Mild, nausea and vomiting, 09/24/20) A-FIB/CHADSVASC A-FIB History Current/History of A-Fib/PAF?: Yes Current PO Anticoag Therapy: Yes GME ATTESTATION GME ATTESTATION My faculty preceptor for this patient encounter was physically present during the encounter and was fully available. All aspects of the patient interview, examination, medical decision making process, and medical care plan development were reviewed and approved by the faculty preceptor. The faculty preceptor is aware and concurs with the plan as stated in the body of this note and will attest to such by his/her cosignature. ATTENDING NOTE I, Bhavesh Morales MD, have independently examined this patient and performed my own physical exam with the student and the resident in the room with me, as well as reviewed the documentation and edited where necessary. I have discussed in detail with the resident and the student the findings and plan of treatment as documented by the resident and edited their note. I agree with their findings and treatment plan and have edited their documentation. RAJIV BHAKTA OMS-4 Dec 27, 2020 11:43 EMERSON AYOUB D.O. Dec 27, 2020 16:38 BHAVESH MORALES MD Dec 29, 2020 13:58
--- NOTE | 2020-12-27 14:56 | REP ---
INDICATION: sob. COMPARISON: 11/30/2020 latest prior also portable TECHNIQUE: Portable FINDINGS: The technique utilized in obtaining the radiograph has magnified the cardiac silhouette and accentuated the interstitial markings. Once again, there is cardiomegaly accentuated by technique. The pacemaker device is unchanged with the tip of the central venous catheter is unchanged remaining in the superior vena cava. There are patchy bilateral lower lobe interstitial opacities which are essentially unchanged. No new abnormal opacities seem to have developed. There is no change in the osseous structures. IMPRESSION: No significant change compared to the prior exam. <Electronically signed by Leland Bishop > 12/27/20 [id number]
[2020-12-27] MEDS ORDERED: MIDODRINE 5 MG TAB PO SCH (16:00)
[2020-12-27] MEDS ORDERED: GLUCAGON INJ 1MG VIAL SC PRN (16:20)
[2020-12-27] MEDS ORDERED: GLUCOSE 4GM CHEW TABLET PO PRN (16:20)
[2020-12-27] MEDS ORDERED: DEXTROSE 50% 50 ML SYRINGE IV PRN (16:20)
[2020-12-27] MEDS: MIDODRINE 5 MG TAB PO SCH (17:28)
[2020-12-27] MEDS: HumaLOG INSULIN (NovoLOG) PER UNIT SC SCH ×2 (17:30→21:00)
[2020-12-27] MEDS: SUCROFERRIC OXYHYDROXIDE 500MG CHEW TAB (VELPHORO) PO SCH (18:00)
[2020-12-27] MEDS ORDERED: FLUCONAZOLE 100 MG TAB PO SCH (18:00)
[2020-12-27] MEDS ORDERED: NOREPINEPHRINE BITARTRATE 8 MG in D5W 500 ML IV SCH (20:45)
[2020-12-27] MEDS ORDERED: NOREPINEPHRINE 4 MG/4 ML AMP As Ordered ONE (20:52)
--- NOTE | 2020-12-27 20:54 | IPNPDOC ---
Text Note Date of Service The patient was seen on 12/27/20. NOTE Notified by nurse patients MAP is low, awake and responds to questions. Lactate is elevated. Dr Villatoro was contacted to assist with central line placement for this patient in the ICU for which he requested that surgery should be contacted. I spoke to Dr Rogers who kindly agreed to place a central line. In the meantime I asked nurse to start Levophed peripherally as needed to maintain MAP >65. Later BP had improved on its own not requiring a central line VS,Janicee, I+O VS, Nielsbone, I+O Laboratory Tests 12/27/20 10:54 Vital Signs Date Time Temp Pulse Resp B/P (MAP) Pulse Ox O2 Delivery O2 Flow Rate FiO2 12/27/20 18:02 95.0 91 21 80/50 90 Nasal Cannula 2.0 NAVIN PLATA MD Dec 27, 2020 20:54
[2020-12-27] MEDS: LEVEMIR (INSULIN DETEMIR) 1 UNITS/0.01ML SC SCH (21:00)
--- NOTE | 2020-12-27 21:31 | ECGEPIP ---
[facility] Test Date: 2020-12-27 Pat Name: MALLORIE NITA Department: Room: [place] [address] Gender: Male Correction Officer: MOHSEN : 1945 Requested By: EMERSON AYOUB D.O. Order Number: [id number] Reading MD: Carlos Zendejas Measurements Intervals [place] Rate: 73 P: SD: QRS: -71 QRSD: 134 T: 113 QT: 472 QTc: 519 Interpretive Statements Atrial fibrillation Wide QRS Left axis deviation Right bundle branch block Anterolateral infarct , cannot r/o Compared to 12/07/20 ventricular pacing is no longer apparent Electronically Signed on 12-27-2020 21:30:47 EDT by Carlos Zendejas
--- NOTE | 2020-12-27 21:34 | CR ---
CONSULTATION DATE: 12/27/2020 REQUESTING PHYSICIAN: Dr. Bhavesh Morales REASON FOR CONSULTATION: Management of end-stage renal disease in this patient who is noncompliant with hemodialysis. HISTORY OF PRESENT ILLNESS: Leladn Bassett is previously unknown to me. He is a 75-year-old male with a past medical history of multiple severe comorbid conditions, including recently starting hemodialysis (his last dialysis treatment in the outpatient setting was December 14), and patient has been noncompliant with dialysis. He also has a history of nonalcoholic steatohepatitis (GALAVIZ) cirrhosis with large-volume ascites, and he gets regular large-volume paracenteses (last paracentesis was on December 21 with 8.1 liters drained). Patient is chronically hypotensive, and he also has underlying diastolic congestive heart failure, atrial fibrillation, gout, diabetes, abdominal aortic aneurysm, and multiple other comorbid conditions mentioned below. Patient reports that he did not go to his outpatient dialysis, because he did not like the way it makes him feel. He was brought by emergency medical services (EMS) to [facility] and was found to have significant hyperkalemia, anemia, and derangements in renal parameters, and he was transferred to [facility] for arrangement of hemodialysis. Patient was seen and examined this morning at the bedside. He was noted to be in significant fluid overload and was also found to have chronically low blood pressures, and orders were written for midodrine to help with blood pressure support during dialysis along with albumin to be given during dialysis for hemodynamic stability, and I discussed with the patient that his overall prognosis is very poor because of concomitant liver failure and renal failure along with his multitude other medical problems. MEDICAL HISTORY: 1. End-stage renal disease, noncompliant with hemodialysis. 2. Chronic hypotension. 3. GALAVIZ cirrhosis with large-volume ascites with regular paracenteses. 4. History of spontaneous bacterial peritonitis (SBP). 5. Esophageal varices status post banding. 6. Diastolic congestive heart failure. 7. Atrial fibrillation, on Eliquis. 8. Hypothyroidism. 9. Secondary hyperparathyroidism. 10. Anemia. 11. Gout. 12. Insulin-dependent diabetes mellitus. 13. Gastroesophageal reflux disease (GERD). 14. Abdominal aortic aneurysm (AAA). 15. Coronary artery disease (CAD) with history of myocardial infarction (CO). 16. History of testicular cancer. 17. Chronic obstructive pulmonary disease (COPD). 18. Obstructive sleep apnea (PINKY). SURGICAL HISTORY: 1. Esophageal varices with banding. 2. Right testicular cancer with right orchiectomy. 3. Cholecystectomy. 4. Right knee arthroplasty. 5. Left knee surgery. 6. Cataract removal. 7. Multiple paracenteses. 8. Perm-A-Cath placement. SOCIAL HISTORY: He is an ex-smoker, more than 150 pack-year history. No current alcohol use and no drug use. FAMILY HISTORY: Reports diabetes in his brother. ALLERGIES: QUINOLONE, ATORVASTATIN, BUMETANIDE, CIPROFLOXACIN, VALSARTAN. REVIEW OF SYSTEMS: Reports generalized weakness and fatigue and malaise EYES: Denies visual changes or tearing. ENT: Denies epistaxis, rhinorrhea, tinnitus. CARDIOVASCULAR: Reports congestive heart failure, leg swelling, atrial fibrillation, history of myocardial infarction, chronic hypotension. RESPIRATORY: Reports shortness of breath. GASTROINTESTINAL: Complains of cirrhosis, ascites, and large-volume paracentesis. MUSCULOSKELETAL: Reports leg weakness, leg swelling, and history of gout. ENDOCRINE: Reports diabetes. Reports secondary hyperparathyroidism. Reports hypothyroidism. HEMATOLOGIC: Reports anemia. Reports anticoagulant use. NEUROLOGIC: Denies seizure, or syncope. SKIN: Reports rashes on his legs. GENITOURINARY: Denies dysuria or hematuria. Remainder of review of systems is negative or as per history of present illness (HPI). HOME MEDICATIONS: Reviewed. - allopurinol 100 mg by mouth daily - Eliquis 2.5 mg by mouth twice a day - vitamin C 1000 mg by mouth daily - vitamin D3 at 2000 units by mouth daily - ciprofloxacin 500 mg by mouth daily - insulin - levothyroxine 175 mcg by mouth every morning. - midodrine 10 mg by mouth three times a day - Protonix 40 mg by mouth daily - torsemide 50 mg by mouth twice a day VITAL SIGNS: Temperature 91.4, pulse 62, respiratory rate 20, blood pressure 98/62, saturating 94% on 2 liters nasal cannula. Dialysis goal fluid removal today is 1.5 liters. GENERAL: Patient is seen this morning at the bedside. He is an elderly male who looks chronically ill. He is in no apparent distress, however. There is a Lester Hugger being set up. Extraocular muscles are intact. Tongue is moist. Jugular veins are elevated. There is a tunneled Perm-A-Cath with a dirty dressing. HEART: Sounds are regular. There is chronic 1+ to 2+ peripheral edema that comes up to the hip and abdominal ritter and flanks. LUNGS: Show diminished breath sounds with crackles. ABDOMEN: Obese and soft. There is ascites present. EXTREMITIES: Show 1-2+ edema that comes up to the hip, thigh, and the dependent abdominal flanks. There are some areas of erythema demarcated by a skin marker. NEUROLOGIC: He is oriented times three, interactive and conversational. LABORATORY DATA: Sodium 140, potassium 6.0, bicarbonate 7, anion gap 22, BUN 111, creatinine 10.9, lactic acid 3.9, phosphorus 13.5, magnesium 3.0. Albumin 2.4. Hemoglobin 9.1, platelets 299. Blood cultures are drawn and pending. Chest x-ray done this afternoon shows cardiomegaly. Patchy bilateral lower lobe interstitial opacification. INPATIENT MEDICATIONS: I put the patient on midodrine 10 mg three times a day. I ordered albumin with dialysis. He is on ceftaroline 200 mg intravenous (IV) twice a day, allopurinol 100 mg by mouth daily, Eliquis 2.5 mg by mouth twice a day, Aranesp with dialysis, fluconazole 200 mg by mouth Saturday, , Saturday, insulin, levothyroxine 175 mcg by mouth daily, Velphoro 500 mg by mouth with meals. PROBLEMS: 1. End-stage renal disease. Patient was recently started on hemodialysis. He is a very poor candidate for long-term hemodialysis because of his multitude of other comorbid conditions, most notably his GALAVIZ cirrhosis with large-volume ascites and chronic hypotension. It is going to be difficult to dialyze him. He is midodrine dependent. He takes 10 mg three times a day. He is in fluid overload. I am not optimistic that we are going to be able to remove much fluid, and I do not feel that the patient is going to survive very long given that he has concomitant liver failure and renal failure (along with a host of other medical conditions). In any case, he has not been dialyzed in about 2 weeks. His last outpatient dialysis was on December 14. He is hyperkalemic. His blood urea nitrogen is above 100. He has a severe elevation in anion gap metabolic acidosis. His serum bicarbonate is only 7. Orders are written for dialysis this afternoon. We will give midodrine, and we will give albumin. Even so, I feel that he is going to have ongoing hypotension, and he is most likely going to end up needing pressor support and will go in the intensive care unit (ICU). In that case, I feel that he will be a poor candidate for continuous renal replacement therapy (CRRT). I will discuss with the patient regarding code status and goals of care tomorrow when he is more stable. 2. GALAVIZ cirrhosis and chronic hypotension with large-volume ascites. Patient is paracentesis dependent. I looks like he gets a paracentesis once a month. His most recent one was on December 21 with 8 liters of fluid drained. He has chronic hypotension as a consequence of his liver failure. He is midodrine dependent. It makes dialyzing him very difficult because of his tendency toward hemodynamic instability. Patient is a poor candidate for long-term dialysis. 3. Hyperkalemia secondary to noncompliance with dialysis. He is going to be dialyzed today with a 1.0 mEq dialysis bath. 4. Severe elevation in metabolic acidosis (anion gap metabolic acidosis) secondary to renal failure and lactic acidosis. Orders are written for dialysis. 5. Hyperphosphatemia due to noncompliance with diet and noncompliance with dialysis, and phosphorus binder is ordered. 6. Anemia. He was transfused at [facility]. Hemoglobin is 9.1. Aranesp is ordered with dialysis. 7. Sepsis. Patient has chronic hypotension. His blood pressures are a little lower than usual baseline. He is being treated for hypothermia. Blood cultures are pending. He is getting antibiotics managed by the primary team. Dialyzing him is going to be challenging. We are dialyzing him with midodrine and albumin today. He is likely going to require pressor support. 8. Fluid overload secondary to noncompliance with dialysis, decompensated cirrhosis with ascites, and diastolic congestive heart failure. I will try to remove some fluid with dialysis today, but he is not going to tolerate much because of his multiple other comorbid conditions mentioned below.
[2020-12-27] MEDS: CEFTAROLINE FOSAMIL 200 MG in D5W 50 ML IV SCH (23:54)
[2020-12-28] VITALS (10 sets, daily range): BP systolic 73–114; BP diastolic 34–60; O2SAT 94–100
[2020-12-28] MEDS: COLESEVELAM 625 MG TAB (WELCHOL) PO SCH ×2 (00:17→20:19)
[2020-12-28] MEDS ORDERED: ACETAMINOPHEN 500 MG TAB PO ONE (00:20)
[2020-12-28] MEDS: APIXABAN 2.5 MG TAB (ELIQUIS) PO SCH ×2 (00:35→09:50)
[2020-12-28 00:39] LABS: HEMATOCRIT 23.8 % (42.0-52.0); HEMOGLOBIN 7.3 g/dl (13.5-17.5)
[2020-12-28 01:37] LABS: PERCENT SATURATION 62.9 % (19.7-50.0)
[2020-12-28] MEDS: LEVOTHYROXINE 25MCG TABLET (0.025MG) PO SCH (06:20)
[2020-12-28] MEDS: LEVOTHYROXINE 150MCG TABLET (0.15MG) PO SCH (06:20)
[2020-12-28] MEDS: HumaLOG INSULIN (NovoLOG) PER UNIT SC SCH ×4 (07:30→20:19)
[2020-12-28 08:10] LABS: BASO % 0.1 % (0.0-1.0); LYMPH # 0.5 10^3/uL (1.5-5.0); LYMPH % 5.9 % (24.0-44.0); MEAN CORPUSCULAR HEMOGLOBIN 26.7 pg (27.0-33.0); MEAN CORPUSCULAR VOLUME 89.1 fl (80.0-96.0); MONO # 0.9 10^3/uL (0.0-0.8); MONO % 10.5 % (2.0-8.0); NEUTROPHILS % 82.8 % (36.0-66.0); RED BLOOD COUNT 2.58 10^6/uL (4.30-6.10); WHITE BLOOD COUNT 8.4 10^3/uL (4.0-10.0)
[2020-12-28 08:14] LABS: PLATELET COUNT, AUTOMATED 112 10^3/uL (150-450)
[2020-12-28 08:16] LABS: HEMOGLOBIN 6.9 g/dl (13.5-17.5)
[2020-12-28] MEDS: OCUVITE 1 TAB PO SCH ×3 (08:29→20:19)
[2020-12-28] MEDS: SUCROFERRIC OXYHYDROXIDE 500MG CHEW TAB (VELPHORO) PO SCH ×3 (08:29→18:00)
[2020-12-28] MEDS: allopurinoL 100 MG TAB PO SCH (08:29)
[2020-12-28] MEDS: MIDODRINE 5 MG TAB PO SCH ×3 (08:30→16:00)
[2020-12-28] MEDS: CEFTAROLINE FOSAMIL 200 MG in D5W 50 ML IV SCH (08:30)
[2020-12-28] MEDS: LEVEMIR (INSULIN DETEMIR) 1 UNITS/0.01ML SC SCH ×2 (09:00→20:20)
[2020-12-28 09:26] LABS: ALBUMIN 2.2 GM/DL (3.2-5.2); BILIRUBIN,TOTAL 1.3 MG/DL (0.2-1.0); CALCIUM LEVEL 8.4 MG/DL (8.8-10.2); CREATININE FOR GFR 7.99 MG/DL (0.70-1.30); MAGNESIUM LEVEL 2.6 MG/DL (1.8-2.4); PHOSPHORUS LEVEL 10.4 MG/DL (2.5-4.9); POTASSIUM SERUM 5.5 MEQ/L (3.5-5.1); TOTAL PROTEIN 4.2 GM/DL (6.4-8.2)
[2020-12-28 10:57] LABS: ACETONE/KETONE 45.46 MG/DL (<2.81)
[2020-12-28] MEDS ORDERED: MORPHINE 10MG/0.5ML ORAL CONCENTRATE SOLUTION U/D SL PRN (11:00)
[2020-12-28] MEDS ORDERED: ONDANSETRON 4 MG ORAL DISINTEGRATING TAB PO PRN (11:00)
[2020-12-28] MEDS ORDERED: BISACODYL 10 MG SUPP PR PRN (11:00)
[2020-12-28] MEDS ORDERED: SCOPOLAMINE 1MG TRANSDERMAL PATCH TOP PRN (11:00)
[2020-12-28] MEDS ORDERED: FLEET ENEMA PR PRN (11:00)
[2020-12-28] MEDS ORDERED: ATROPINE SULFATE 1% OP SOLN 2 ML BTL SL PRN (11:00)
[2020-12-28] MEDS ORDERED: ACETAMINOPHEN TAB 650MG DOSE (2X325MG) PO PRN (11:00)
[2020-12-28] MEDS ORDERED: HYOSCYAMINE SULFATE 0.125 MG SUBL TABLET PO PRN (11:00)
[2020-12-28] MEDS ORDERED: ASCORBIC ACID 500 MG TAB PO SCH (12:00)
[2020-12-28] MEDS ORDERED: VITAMIN D 1,000 INTERNATIONAL UNITS TABLET PO SCH (12:00)
[2020-12-28] MEDS ORDERED: CLINDAMYCIN 150MG CAPSULE PO SCH (12:00)
--- NOTE | 2020-12-28 16:20 | IPNPDOC ---
Text Note Date of Service The patient was seen on 12/28/20. NOTE S: Pt states he feels worse since yesterday as he has "lower belly pain" and his leg pain is still present. Pt states his right leg is worse than the left and the pain is localized from the knee down on the backside on both legs. Pt endorses peripheral neuropathy. Pt endorses wheezing and SOB which he states happens whenever he gets dialysis. Pt states he has been thinking over the last few hours about making the decision to become hospice care. Pt states after talking with the knot bumper, Dr. Dhillon, he feels in more agreement with his decision to transition to hospice care. Pt states he is trying to get everything arranged for that transition and has talked with his daughter (the next of kin and healthcare proxy) about his decision. Pt denies any fevers, chills, sore throat, cough chest pain, n/v/d/c. O: PHYSICAL EXAMINATION: VITAL SIGNS: See below. GENERAL APPEARANCE: Pleasant elderly male laying on his left side wearing a NC on 4L O2. Pt in NAD but is somewhat uncomfortable when moving his legs. A&O x3. HEENT: Head AC and NC. Mucus membranes dry. No lymphadenopathy. CARDIOVASCULAR: Irregularly irregularly rhythm, regular rate. S1S2. No m/r/g. LUNGS: Expiratory wheezing with diminished breath sounds b/l. No crackles or rales Increased respiratory rate but no use of accessory muscles. ABDOMEN: Soft and non-tender. Rashes noted 12/27 has cleared up and no abd rash observed. Well healed scar on right upper quadrant from past cholecystectomy. Bowel sounds present. MUSCULOSKELETAL: Moves all extremities, diminished ROM with LE with foam pad between knees. EXTREMITIES: Pedal pulses 1+. Right 2+ edema from ankles up to below knee. Red bunion on left metatarsal of great toe on foot. Venous stasis up to mid-calf b ilaterally. SKIN: The rash with boarders that were drawn and dated with a pen marker from 12/27 have now cleared and become undifferentiated with the appearance of the skin outside the boarders. The lower 2/3 of the right leg is warm and erythematous circumferentially. Well healed surgical scar on left upper chest from previous surgery for pace maker placement noted. Left PermCath on right upper chest noted with skin around site dressed and clean with no draining or signs of infection. PSYCHIATRIC: Mood and affect appropriate. A/P: Mr. Bassett is a 75 yo male with a complicated PMH but is significant for Afib on Eliquis, diastolic heart failure, ESRD, GALAVIZ with ascites and hx of SBP and esop hageal varices s/p banding, IDDMT2, GERD, CAD, and COPD presented on 12/27/2020 with a 3 day history of worsening leg pain and weakness who did not received his HD for 10 days was found to be septic with suspected cellulitis vs other source with concurrent hyperkalemia and anemia is now s/p HD and transitioned to comfort measures only as requested by patient. # Comfort measure only care -Pt has a poor prognosis given his several comorbidities including ESRD, GALAVIZ cirrhosis, chronic hypotension, medication and treatment noncompliance and life expectancy is less than 6 months. Pt does qualify for hospice care. -Pt expressed his decision for comfort measure only care. MOLST form was updated and signed by the patient to reflect DNR/DNI status. Pt has updated his healthcare proxy and they are aware of situation. Case management has been consulted and is onboard. 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 -Will discontinue all treatments, imaging, vital sign monitoring, and medications except for those providing comfort measures. 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 Code: DNR/DNI Diet: Regular Activity: As tolerated Disposition: Anticipate eventual discharge home with hospice care pending case management. VS,Fishbone, I+O VS, Fishbone, I+O Laboratory Tests 12/28/20 00:15 12/28/20 07:49 Vital Signs Date Time Temp Pulse Resp B/P (MAP) Pulse Ox O2 Delivery O2 Flow Rate FiO2 12/28/20 10:00 83 17 74/46 (55) 99 Nasal Cannula 4.0 12/28/20 08:00 97.5 I&O- Last 24 Hours up to 6 AM 12/28/20 06:00 Intake Total 250.0 ml Output Total 1500 ml Balance -1250.0 ml RAJIV BHAKTA OMS-4 Dec 28, 2020 11:58 EMERSON AYOUB D.O. Dec 28, 2020 17:35
[2020-12-28] MEDS: CLINDAMYCIN 150MG CAPSULE PO SCH ×2 (18:12→23:46)
--- NOTE | 2020-12-28 19:14 | IPN ---
NEPHROLOGY PROGRESS NOTE DATE: 12/28/2020 SUBJECTIVE: Mr. Bassett is seen and examined at the bedside this morning in the intensive care unit. Yesterday evening he had a great deal of trouble tolerating his hemodialysis session. It was his first dialysis treatment after about a two week period of him skipping hemodialysis. Patient had worsening hypotension during his dialysis treatment. He had indicated to the dialysis nurse that he did not feel that he could tolerate further dialysis. I spoke to the patient this morning regarding his multiple comorbid conditions, the two most important ones being his liver failure and his renal failure. He is unlikely to tolerate chronic dialysis because of significant hypotension (despite taking maximum dose of midodrine at home). I discussed with the patient whether he would like to continue with dialysis treatments or whether he would like to stop dialysis and switch to hospice care. Patient told me that he had been thinking about hospice ever since he started dialysis and he does not wish to continue dialysis treatments. Nursing staff informs me that primary team is considering central line placement and initiation of Levophed and patient is not interested in further aggressive measures. PHYSICAL EXAMINATION: VITAL SIGNS: Temperature 97.5, pulse 83, respiratory rate 23, blood pressure 73/34, saturating 99% on 4 liters nasal cannula. INTAKE AND OUTPUT: Intake yesterday was not fully recorded. Dialysis removed 1.5 liters. Weight in the bed scale today was not recorded. GENERAL: Patient was seen lying in bed, elderly male, awake, alert, oriented times three and able to participate in a full conversation with good insight. HEENT: Extraocular muscles are intact. There is conjunctival pallor and general pallor. Tongue is moist. NECK: Jugular veins are elevated. There is a tunneled dialysis catheter in the right chest wall. HEART SOUNDS: Irregularly irregular. There is 1+ edema that comes up to the hip. LUNGS: Show diminished breath sounds at the bases, but there is no accessory muscle use. ABDOMEN: Soft. There is ascites present. NEUROLOGIC: He is oriented times three, interactive and conversational. LABORATORY STUDIES: White count 8.4, hemoglobin 6.9, platelets 112. Sodium 140, potassium 5.5, bicarbonate 11, BUN 82, creatinine 7.9, lactic acid 3.6, phosphorus 10.4. Albumin 2.2. INPATIENT MEDICATIONS: Levophed infusion has been ordered, but is not presently hanging. He is on: - Tylenol - allopurinol - Eliquis - fluconazole - insuline - levothyroxine - midodrine 10 mg three times a day - Velphoro - vitamin D PROBLEMS: 1. End-stage renal disease on hemodialysis. 2. End-stage liver disease (cirrhosis) with large volume ascites. 3. Acute on chronic hypotension, on maximum midodrine at home. 4. Acute on chronic anemia (probable gastrointestinal (GI) bleed). 5. Hyperkalemia. 6. Anion gap metabolic acidosis and lactic acidosis. 7. Atrial fibrillation with chronic anticoagulation. 8. Diastolic congestive heart failure. DISPOSITION: I had a lengthy discussion with Leland Serjio at the bedside regarding his difficulty tolerating hemodialysis and his multiple organ failure/dysfunction. Patient informs me that he does not wish to continue with hemodialysis any further. He understands that he has a limited life expectancy with stopping dialysis and he would rather spend time now with his daughter and his grandchildren rather than in hospitals and futile medical care. I have communicated the same to the primary team and nephrology will sign off at this time. Please reconsult as needed.
--- NOTE | 2020-12-29 01:49 | IPNPDOC ---
Text Note Date of Service Significant event NOTE Patient is STEP FINISHER. RN reports patient has started having black tarry stools 2 episodes tonight. Prior to STEP FINISHER status he did have notable anemia hemoglobin 6.9 and anticipated GI bleeding however no overt findings reported prior to now. He does have a history of esophageal varices status post banding per chart review. Patient denies complaints. He has had some lower abdominal pain this admission but not presently. He otherwise is clinically interactive as where he has been since adjusting his wishes to STEP FINISHER status. Should patient have any clinical changes or increased in frequency of his stools/whitney bleeding would update family to bedside as would demonstrate hastening EOL. At present, we will continue to monitor and focus on comfort measures. VS,Fishbone, I+O VS, Fishbone, I+O Laboratory Tests 12/28/20 07:49 Vital Signs Date Time Temp Pulse Resp B/P (MAP) Pulse Ox O2 Delivery O2 Flow Rate FiO2 12/28/20 21:00 4.0 12/28/20 10:00 83 17 74/46 (55) 99 Nasal Cannula 12/28/20 08:00 97.5 I&O- Last 24 Hours up to 6 AM 12/29/20 06:00 Intake Total 500 ml Output Total 0 ml Balance 500 ml SINAI YAO NP Dec 29, 2020 01:49
[2020-12-29] MEDS: LEVOTHYROXINE 25MCG TABLET (0.025MG) PO SCH (05:33)
[2020-12-29] MEDS: CLINDAMYCIN 150MG CAPSULE PO SCH ×3 (05:34→18:00)
[2020-12-29] MEDS: LORazepam 1 MG TAB PO PRN ×2 (05:34→16:44)
[2020-12-29] MEDS: LEVOTHYROXINE 150MCG TABLET (0.15MG) PO SCH (05:34)
[2020-12-29] MEDS: SUCROFERRIC OXYHYDROXIDE 500MG CHEW TAB (VELPHORO) PO SCH ×3 (08:00→18:00)
[2020-12-29] MEDS: MIDODRINE 5 MG TAB PO SCH ×3 (08:00→16:00)
[2020-12-29] MEDS: OCUVITE 1 TAB PO SCH ×2 (09:00→21:00)
[2020-12-29] MEDS: allopurinoL 100 MG TAB PO SCH (09:00)
--- NOTE | 2020-12-29 11:37 | DS.PDOC ---
Discharge Summary General Date of Admission Dec 27, 2020 at 09:39 Date of Discharge December 29, 2020 Attending Physician: ZAIN FONG MD Specialist/Consultants Involve: COLE DHILLON DO Discharge Summary PROCEDURES PERFORMED DURING STAY: None. ADMITTING DIAGNOSES: -Cellulitis -Tinea corpus -Hyperkalemia -Anemia -ESRD on HD, missed HD for 10 days -GALAVIZ with ascites -Afib on Eliquis -Chronic hypotension -IDDMT2 -CAD with hx AK x3 -Diastolic heart failure DISCHARGE DIAGNOSES: -Cellulitis, improved -Tinea corpus, resolved -Hyperkalemia 2/2 missed HD, improved -Anemia of unknown cause -ESRD on HD -GALAVIZ with ascites -Afib on Eliquis -Chronic hypotension -IDDMT2 -CAD with hx AK x3 -Diastolic heart failure COMPLICATIONS/CHIEF COMPLAINT: Dialysis,Hyperkalemia,Anemia,Rt Leg Pain. HISTORY OF PRESENT ILLNESS: Mr. Leland Bassett is a 75 yo male who presented 12/27/2020 with a 3 day history of worsening leg pain and weakness. Pt states that over the weekend his "leg came out from beneath him" and he was not able to stand up but denies any falls. Pt states both his legs feel weak and painful with the right leg feeling worse than the left. Pt states the pain is localized on the back side of the knee up to the calf. Pt describes the pain as sharp and rated a 10/10. Pt states his symptoms progressed overtime since his last admission to the hospital 11/28/2020, it worsens when he gets hemodialyses and got to a point where he could not get out of bed and called the ambulance. Pt states he gets dialysis 3x week but last dialysis was 1.5 weeks ago as pt states he missed it because he could not get up out of bed. Pt also endorses he "does not like the way dialysis makes him feel" as it makes him "weak, nauseous, and SOB". Pt denies any muscle overuse or trauma, fevers or shaking chills, palpitations, v/d. Pt states he is SOB and nausea from his dialysis at baseline and has not had a bowel moment in a few days. Patient was brought by EMS to [facility] and eventually transferred to [facility] for HD. Workup at [facility] showed negative LE venous doppler with a hyperkalemia of 6.3, anemia of Hbg 6.9 with s/p two units of pRBC and Kayexalate before being transferred from [facility] to [facility]. HOSPITAL COURSE: Upon presentation to ED, pt was found to be temperature 96, pulse 67, respiratory rate 18, blood pressure 97/51, pulse oximetry 93% on 2L NC (baseline is RA). Upon examination, pt was found to have a right leg swelling with pain and rash that was suspected to be cellulitis and a secondary rash on his lover-mid abdomen which was suspected to be tinea corpus in which the pt was unaware of until pointed out by medical staff. Blood cultures were draw and ceftaroline IV was started for the likely cellulitis and fluconazole was started for the abdominal skin rash likely from tinea corpus with failed topical treatment. Fluids were held due to patient being fluid overloaded and will be receiving hemodialysis later that day on 12/27/2020. Pt had adamantly reaffirmed that he desires full code status. Pt was continued on home midodrine for hypotension; however, during hemodialysis pt continued to have low blood pressures of high 80's/70's. Hemodialysis removed about 1.5L of fluid and ended about 5 min earlier than scheduled as patient felt too uncomfortable being nauseas and SOB from the hemodialysis. Later that the evening of 12/27/2020, the patient continued to have low blood pressures of 72-80/39-50 with MAP <65. The patient agreed and a decision was made to place a central line and arterial line to maintain access to transition to IV pressor support for his low blood pressure and peripheral Lopressor was given in the interm. The patient responded well to the peripheral Lopressor with bp increasing back to >110/60 and was stable overnight and CVC and A line were deferred to be place in the morning. On the morning of 12/28/2020 and before hemodialysis, the pt stated "he has been thinking for the past few hours" about making the decision to be place on hospice care. Pt stated that after talking with the tariff publishing agent, Dr. Dhillon, he feels in more agreement with his decision to transition to hospice care. Pt stated he is has talked with his daughter (the next of kin and healthcare proxy) about his decision to become under hospice care. The MOLST form was updated and signed by the patient to reflect DNR/DNI status and the patient was transitioned to comfort measures only care. Of note, the patient had episodes of black tarry stools with a notable anemia hemoglobin of 6.9 for which a GI workup was not completed due to patients condition and code status. Pt has been clinically interactive and has been able to make his wishes known. Pt is not clinically stable and is expected to have a poor prognosis given his multiple deteriorating comorbidities and qualifies for hospice level of care. In accordance to the patient's wishes of INFORMATION OFFICER status, the pt will be discharged home with hospice care. DISCHARGE MEDICATIONS: Please see below. ALLERGIES: Please see below. PHYSICAL EXAMINATION ON DISCHARGE: VITAL SIGNS: Please see below. GENERAL: Pt seen laying comfortably in bed, in NAD, appearing lethargic and weak. HEENT: Head NC and AT. RESPIRATORY EXAMINATION: Does not use accessory muscles to breath. ABDOMINAL EXAMINATION: Distended. EXTREMITIES: No deformations noted. SKIN: No new rashes. NEUROLOGICAL EXAMINATION: Appears lethargic but arousable to verbal command. PSYCHIATRIC EXAMINATION: Does not appear agitated or anxious. LABORATORY DATA: Please see below. IMAGING: CXR 12/27/2020 - No significant change compared to the prior exam. PROGNOSIS: Poor ACTIVITY: As tolerated. DIET: As tolerated DISCHARGE PLAN/DISPOSITION: Home with hospice care DISCHARGE INSTRUCTIONS: 1. Continue management for hospice comfort measures. ITEMS TO FOLLOWUP ON ON OUTPATIENT: 1. None. Will be under hospice care. DISCHARGE CONDITION: [Stable]. TIME SPENT ON DISCHARGE: minutes. Vital Signs/I&Os Vital Signs Date Time Temp Pulse Resp B/P (MAP) Pulse Ox O2 Delivery O2 Flow Rate FiO2 12/28/20 21:00 4.0 12/28/20 10:00 83 17 74/46 (55) 99 Nasal Cannula 12/28/20 08:00 97.5 I&O- Last 24 Hours up to 6 AM 12/29/20 06:00 Intake Total 650 ml Output Total 0 ml Balance 650 ml Laboratory Data Labs 24H Laboratory Tests 2 12/28/20 12:35: Bedside Glucose (Misc Panel) 127H FSBS Laboratory Tests Test 12/28/20 12:35 Range/Units Bedside Glucose (Misc Panel) 127 83-110 MG/DL Microbiology Microbiology 12/27/20 Blood Culture - Preliminary, Resulted No growth after 24 hours . All specim... 12/27/20 Blood Culture - Preliminary, Resulted No growth after 24 hours . All specim... 12/27/20 Blood Culture - Preliminary, Resulted No growth after 24 hours . All specim... Discharge Medications Scheduled Allopurinol (Allopurinol) 100 Mg Tablet, 100 MG PO DAILY, (Reported) Apixaban (Eliquis) 2.5 Mg Tablet, 2.5 MG PO BID, (Reported) Ascorbic Acid (Vitamin C) 500 Mg Tablet, 1,000 MG PO DAILY, (Reported) TAKES AT NOON Cholecalciferol (Vitamin D3) (Vitamin D3) 1,000 Unit Tablet, 2,000 UNITS PO DAILY, (Reported) TAKES AT NOON Ciprofloxacin HCl (Ciprofloxacin HCl) 500 Mg Tablet, 500 MG PO DAILY, (Reported) Colesevelam Hydrochloride (Welchol) 625 Mg Tablet, 3,750 MG PO QHS, (Reported) Glucosamine/Chondroitin/C/Clay (Glucosamine-Chondroitin Capsul) 1 Cap Cap, 1 CAP PO BID, (Reported) Insulin Aspart (Novolog Flexpen) 100 Unit/1 Ml Insuln.pen, 1 DOSE SC AC, (Reported) PER SLIDING SCALE Insulin Detemir (Levemir) 100 Unit/1 Ml Vial, 10 UNITS SC BID, (Reported) Levothyroxine Sodium (Levothyroxine Sodium) 175 Mcg Tab, 175 MCG PO QAM, (Reported) Midodrine HCl (Midodrine HCl) 10 Mg Tablet, 10 MG PO TID, (Reported) 0800/1200/1600 Multivitamin (Multivitamins) 1 Each Tablet, 1 TAB PO DAILY, (Reported) TAKES AT NOON Pantoprazole Sodium (Pantoprazole Sodium) 40 Mg Tablet.dr, 40 MG PO DAILY, (Reported) Torsemide (Torsemide) 100 Mg Tablet, 50 MG PO BID, (Reported) Vit A/Vit C/Vit E/Zinc/Copper (Preservision Areds Softgel) 1 Each Capsule, 1 CAP PO BID, (Reported) Allergies Coded Allergies: bumetanide (Verified Allergy, Unknown, UNKNOWN, 09/24/20) valsartan (Verified Allergy, Unknown, UNKNOWN REACTION, 09/24/20) Quinolones (Verified Adverse Reaction, Mild, GI UPSET, 09/24/20) atorvastatin (Verified Adverse Reaction, Mild, GI UPSET, 09/24/20) ciprofloxacin (Verified Adverse Reaction, Mild, nausea and vomiting, 09/24/20) RAJIV BHAKTA OMS-4 Dec 29, 2020 11:36 EMERSON AYOUB D.O. 4, 2021 18:08
--- NOTE | 2020-12-29 18:14 | IPNPDOC ---
Text Note Date of Service The patient was seen on 12/29/20. NOTE S: Patient was seen this morning resting comfortably in bed. He had no concerns. He states all of his needs are met. We discussed whether or not he wants a Pleurx catheter placed for comfort and he declines this. O: Patient lying comfortably in bed, wearing nasal cannula with O2 sats. 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 A/P: Continue PRODUCT MANAGER E COMMERCE status Patient awaiting home with hospice. They have not obtained a medical bed or oxygen for him to use at home this morning. He'll be discharged once everything is set up for him to go home with hospice. Continue palliative medications. Continue home meds which can help prevent uncomfortable side effects of his multiple medical conditions. VS,Fishbone, I+O VS, Fishbone, I+O Vital Signs Date Time Temp Pulse Resp B/P (MAP) Pulse Ox O2 Delivery O2 Flow Rate FiO2 12/28/20 21:00 4.0 12/28/20 10:00 83 17 74/46 (55) 99 Nasal Cannula 12/28/20 08:00 97.5 I&O- Last 24 Hours up to 6 AM 12/29/20 06:00 Intake Total 650 ml Output Total 0 ml Balance 650 ml EMERSON AYOUB D.O. Dec 29, 2020 18:14
[2020-12-29] MEDS: COLESEVELAM 625 MG TAB (WELCHOL) PO SCH (21:00)
[2020-12-30] MEDS: LEVOTHYROXINE 150MCG TABLET (0.15MG) PO SCH (06:00)
[2020-12-30] MEDS: LEVOTHYROXINE 25MCG TABLET (0.025MG) PO SCH (06:00)
[2020-12-30] MEDS: CLINDAMYCIN 150MG CAPSULE PO SCH ×2 (06:00)
[2020-12-30] MEDS ORDERED: MORP1SOL SL (09:05)
[2020-12-30] MEDS ORDERED: HYOS125TA PO (09:05)
[2020-12-30] MEDS ORDERED: BISA10SU PR (09:05)
[2020-12-30] MEDS ORDERED: ATRO1OPD SL (09:05)
[2020-12-30] MEDS ORDERED: ONDA4TAB6 PO (09:05)
[2020-12-30] MEDS ORDERED: ATIV1TAB7 PO (09:05)
[2020-12-30] MEDS ORDERED: TRAN1DIS4 TOP (09:05)
[2020-12-30] MEDS ORDERED: FLEEENE12 PR (09:05)
--- NOTE | 2020-12-30 09:55 | DS.PDOC ---
Discharge Summary General Date of Admission Dec 27, 2020 at 09:39 Date of Discharge December 30, 2020 Attending Physician: ZAIN FONG MD Specialist/Consultants Involve: COLE DHILLON DO Discharge Summary PROCEDURES PERFORMED DURING STAY: None. ADMITTING DIAGNOSES: -Cellulitis -Tinea corpus -Hyperkalemia -Anemia -ESRD on HD, missed HD for 10 days -GALAVIZ with ascites -Afib on Eliquis -Chronic hypotension -IDDMT2 -CAD with hx SD x3 -Diastolic heart failure DISCHARGE DIAGNOSES: -Cellulitis, improved -Tinea corpus, resolved -Hyperkalemia 2/2 missed HD -Anemia of unknown cause -ESRD -GALAVIZ with ascites -Afib on Eliquis -Chronic hypotension -IDDMT2 -CAD with hx SD x3 -Diastolic heart failure COMPLICATIONS/CHIEF COMPLAINT: Dialysis,Hyperkalemia,Anemia,Rt Leg Pain. HISTORY OF PRESENT ILLNESS: Mr. Leland Bassett is a 75 yo male who presented 12/27/2020 with a 3 day history of worsening leg pain and weakness. Pt states that over the weekend his "leg came out from beneath him" and he was not able to stand up but denies any falls. Pt states both his legs feel weak and painful with the right leg feeling worse than the left. Pt states the pain is localized on the back side of the knee up to the calf. Pt describes the pain as sharp and rated a 10/10. Pt states his symptoms progressed overtime since his last admission to the hospital on 11/28/2020. Pt states it worsens when he gets hemo dialysis and got to a point where he could not get out of bed and called the ambulance. Pt states he gets dialysis 3x week but last dialysis was 12/14/2020 as pt states he missed it because he could not get up out of bed. Pt also endorses he "does not like the way dialysis makes him feel" as it makes him "weak, nauseous, and SOB". Pt denies any muscle overuse or trauma, fevers or s haking chills, palpitations, v/d. Pt states he is SOB and nausea from his dialysis at baseline and has not had a bowel moment in a few days. Patient was brought by EMS to [facility] and eventually transferred to [facility] for HD. Workup at [facility] showed negative LE venous Doppler with a hyperkalemia of 6.3, anemia of Hbg 6.9 and was given two units of pRBC and Kayexalate before being transferred from [facility] to [facility]. HOSPITAL COURSE: Upon presentation, pt was found to have temperature 96, pulse 67, respiratory rate 18, blood pressure 97/51, pulse oximetry 93% on 2L NC (baseline is RA). Upon examination, pt was found to have a right leg swelling with pain and rash that was suspected to be cellulitis and a secondary rash on his lover-mid abdomen which was suspected to be tinea corpus in which the pt was unaware of until pointed out by medical staff earlier that day. Blood cultures were draw and ceftaroline IV was started for the likely cellulitis and fluconazole was started for the abdominal skin rash likely from tinea corpus with failed topical treatment. Fluids were held due to patient being fluid overloaded and was planned to receive hemodialysis later that day on 12/27/2020. Pt continued to adamantly reaffirmed that he desires full code status at that time. Within a few hours of arriving at the hospital, the pt met 3/4 SIRS criteria as the pt was found to have hypothermia of 91.4, leukocytosis of 16.2 and hypoxia of 84% but still hemodynamically stable of 98/62. Pt was placed on a Lester Hugger and his rectal temperature increased to 96.4 degrees and his O2 saturations increased to >92%. Pt was continued on home midodrine for his hypotension and hemodialysis was started. During hemodialysis, the pt continued to have low blood pressures of high 80's/70's. Hemodialysis removed about 1.5L of fluid and ended about 5 min earlier than scheduled as patient felt too unco mfortable being nauseous and SOB from the hemodialysis. Later that the evening of 12/27/2020, the patient continued to have low blood pressures of 72-80/39-50 with MAP <65. The patient agreed and a decision was made to place a central line and arterial line to maintain access to transition to IV pressor support for his low blood pressure. Peripheral Lopressor was given in the interm. The patient responded well to the peripheral Lopressor with BP increasing back to >110/60 and was stabilized overnight so the central line and A line were planned to be place in the morning. On the morning of 12/28/2020 and before hemodialysis, the pt stated "he has been thinking for the past few hours" about making the decision to be place on hospice care. Pt stated that after talking with the aircraft cabin cleaner, Dr. Dhillon, his concerns were addressed and he feels in more firm with his decision to transition to hospice care. Pt stated he has talked with his daughter (the next of kin and healthcare proxy) about his decision to become hospice care status. The MOLST form was updated and signed by the patient to reflect his desire for DNR/DNI status and the patient was transitioned to comfort measures only care. Pt has been clinically interactive and has been able to make his wishes and concerns known. Pt is not medically stable but is clinically stable. Pt is expected to have a poor prognosis given his multiple d eteriorating comorbidities and qualifies for hospice. In accordance to the patient's wishes of SLAG MIXER status, the pt will be discharged home with hospice care. DISCHARGE MEDICATIONS: Please see below. ALLERGIES: Please see below. PHYSICAL EXAMINATION ON DISCHARGE: Limited due to patient's SLAG MIXER status. VITAL SIGNS: Please see below. GENERAL: Pt seen laying comfortably in bed, in NAD HEENT: Head NC and AT. RESPIRATORY EXAMINATION: Does not use accessory muscles to breath. ABDOMINAL EXAMINATION: Distended. EXTREMITIES: No deformations noted. SKIN: No new rashes. NEUROLOGICAL EXAMINATION: Appears lethargic but arousable to verbal command. Converses appropriately. PSYCHIATRIC EXAMINATION: Does not appear agitated or anxious. LABORATORY DATA: Please see below. IMAGING: CXR 12/27/2020 - No significant change compared to the prior exam. PROGNOSIS: Poor ACTIVITY: As tolerated. DIET: As tolerated DISCHARGE PLAN/DISPOSITION: Home with hospice care DISCHARGE INSTRUCTIONS: Continue palliative medications. ITEMS TO FOLLOWUP ON ON OUTPATIENT: 1. None. Will be under hospice care. DISCHARGE CONDITION: Stable. TIME SPENT ON DISCHARGE: 35 minutes. Vital Signs/I&Os Vital Signs Date Time Temp Pulse Resp B/P (MAP) Pulse Ox O2 Delivery O2 Flow Rate FiO2 12/29/20 21:00 4.0 12/28/20 10:00 83 17 74/46 (55) 99 Nasal Cannula 12/28/20 08:00 97.5 I&O- Last 24 Hours up to 6 AM 12/30/20 06:00 Intake Total 0 ml Output Total 0 ml Balance 0 ml Microbiology Microbiology 12/27/20 Blood Culture - Preliminary, Resulted No Growth after 48 hours. All Specime... 12/27/20 Blood Culture - Preliminary, Resulted No Growth after 48 hours. All Specime... 12/27/20 Blood Culture - Preliminary, Resulted No Growth after 48 hours. All Specime... Discharge Medications Scheduled PRN Atropine Sulfate (Atropine Sulfate) 1% 2ML Drops, 1 DROP SL Q2HP PRN for TERMINAL SECRETIONS Bisacodyl (Bisacodyl) 10 Mg Supp.rect, 10 MG NH Q24HP PRN for CONSTIPATION Hyoscyamine Sulfate (Hyoscyamine Sulfate) 0.125 Mg Tab.subl, 0.125 MG PO Q4HP PRN for TERMINAL SECRETIONS Lorazepam (Ativan) 1 Mg Tablet, 1 MG PO Q2HP PRN for ANXIETY Morphine Sulfate (Morphine Sulfate Concentrate) 100 Mg/5 Ml Solution, 2 MG SL Q2HP PRN for SEVERE PAIN (PS 8-10) Ondansetron (Ondansetron Odt) 4 Mg Tab.rapdis, 4 MG PO Q6HP PRN for NAUSEA OR VOMITING Scopolamine (Transderm-Scop) 1 Each Patch.td.3, 1 MG TOP Q3DP PRN for EXCESSIVE SECRETIONS Sodium Phosphate,[place]-Dibasic (Fleet Enema) 133 Ml Enema, 1 EA NH Q3DP PRN for CONSTIPATION Miscellaneous Medications Insulin Detemir (Levemir Flextouch) 100 Unit/1 Ml Insuln.pen, (Reported) Midodrine HCl (Midodrine HCl) 5 Mg Tablet, (Reported) Spironolactone (Spironolactone) 25 Mg Tablet, (Reported) Allergies Coded Allergies: bumetanide (Verified Allergy, Unknown, UNKNOWN, 12/30/20) valsartan (Verified Allergy, Unknown, UNKNOWN REACTION, 12/30/20) Quinolones (Verified Adverse Reaction, Mild, GI UPSET, 12/30/20) atorvastatin (Verified Adverse Reaction, Mild, GI UPSET, 12/30/20) ciprofloxacin (Verified Adverse Reaction, Mild, nausea and vomiting, 12/30/20) RAJIV BHAKTA OMS-4 Dec 30, 2020 09:32 EMERSON AYOUB D.O. Dec 30, 2020 15:49
[2020-12-30] MEDS ORDERED: MIDO5TA (10:19)
[2020-12-30] MEDS ORDERED: SPIR-10 (10:19)
[2020-12-30] MEDS ORDERED: LEVE1INJ5 (10:19)
[2020-12-30] MEDS: LORazepam 1 MG TAB PO PRN (10:27)
== END 2020-12-30 11:19 | disposition hospice, home (50) | DRG 871 ==
LOC: M PCU 09:39 → UNDOADMIN 09:46 → M PCU 09:46 → M MS5PR 12-28 14:13
PROVIDERS: ADMIT Internal Medicine; ATTEND Internal Medicine
PROC: 5A1D70Z Performance of Urinary Filtration, Intermittent, Less than 6 Hours Per Day (ICD-10-PCS; principal; 2020-12-27)
DX: A41.9 Sepsis, unspecified organism (principal); N18.6 End stage renal disease; R18.8 Other ascites; I85.10 Secondary esophageal varices without bleeding; I50.32 Chronic diastolic (congestive) heart failure; L03.115 Cellulitis of right lower limb; E87.2 Acidosis; K75.81 Nonalcoholic steatohepatitis (NASH); I48.91 Unspecified atrial fibrillation; E03.9 Hypothyroidism, unspecified; M10.9 Gout, unspecified; E11.22 Type 2 diabetes mellitus with diabetic chronic kidney disease; K21.9 Gastro-esophageal reflux disease without esophagitis; I71.4 Abdominal aortic aneurysm, without rupture; I25.10 Atherosclerotic heart disease of native coronary artery without angina pectoris; I25.2 Old myocardial infarction; Z66 Do not resuscitate; Z51.5 Encounter for palliative care; J44.9 Chronic obstructive pulmonary disease, unspecified; G47.33 Obstructive sleep apnea (adult) (pediatric); I87.2 Venous insufficiency (chronic) (peripheral); M21.612 Bunion of left foot; E87.5 Hyperkalemia; D64.9 Anemia, unspecified; E11.42 Type 2 diabetes mellitus with diabetic polyneuropathy; R68.0 Hypothermia, not associated with low environmental temperature; E83.39 Other disorders of phosphorus metabolism; I95.89 Other hypotension; B35.4 Tinea corporis; Z85.47 Personal history of malignant neoplasm of testis; Z90.79 Acquired absence of other genital organ(s); Z90.49 Acquired absence of other specified parts of digestive tract; Z96.651 Presence of right artificial knee joint; Z98.49 Cataract extraction status, unspecified eye; Z91.15 Patient's noncompliance with renal dialysis; Z79.01 Long term (current) use of anticoagulants; Z87.891 Personal history of nicotine dependence; Z79.899 Other long term (current) drug therapy; Z79.4 Long term (current) use of insulin; Z88.1 Allergy status to other antibiotic agents; Z88.8 Allergy status to other drugs, medicaments and biological substances; Z99.2 Dependence on renal dialysis